=== PATIENT | male | born 1950 | race Caucasian/White ===

== ENCOUNTER → 2018-08-16 10:16 | Outpatient (CLI) | payer MEDICARE, OTHER, SELFPAY ==
[2018-08-16 11:25] LABS: AST(SGOT) 9 U/L (15-37); Alanine Aminotransfer ALT/SGPT 16 U/L (16-61); Albumin, Serum 3.1 g/dL (3.2-5.0); Alkaline Phosphatase 75 U/L (45-117); Bilirubin, Direct 0.15 mg/dL (0.00-0.30); Cholesterol 146 mg/dL (200); Globulin 4.5 g/dL (2.2-4.2); High Density Lipoprotein 51 mg/dL; Protein, Total 7.6 g/dL (6.4-8.2); Triglycerides 142 mg/dL; Very Low Density Lipoprotein 28 mg/dL (5-40)
== END ==
PROVIDERS: Family Provider Family Medicine; PCP Family Medicine; Visit Provider Internal Medicine Cardiovascular Disease
DX: E78.5 Hyperlipidemia, unspecified (principal); I25.5 Ischemic cardiomyopathy
CPT/HCPCS: 36415; 80061; 80076

== ENCOUNTER → 2018-09-05 09:06 | Outpatient (CLI) | payer MEDICARE, OTHER, SELFPAY ==
--- NOTE | 2018-09-05 09:13 | PCM.CR.HP2 ---
CR - History & Physical - General Arrival date:: 09/05/18 Arrival time:: 09:13 Date of Referral:: 08/31/18 Date of CR Evaluation:: 09/05/18 Referring Physician: DR. 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 Called his friend to take him to ER, friend told patient he was pure white and friend called squad. Interventions with present event:: CABG, was done at [facility]- Were there any complications?: after surgery slipped in coma during surgery, spent 6 weeks in coma. - Medications Home Medications: Ambulatory Orders Medication Instructions Recorded atorvastatin 40 mg tablet 40 mg PO QDAY #90 tab 06/07/18 famotidine 20 mg tablet 20 mg PO QDAY #30 tab 06/07/18 lisinopril 20 mg tablet 20 mg PO QDAY #90 tab 06/07/18 sennosides 8.6 mg-docusate sodium 1 tab PO QDAY PRN #60 tab 06/07/18 50 mg tablet sertraline 100 mg tablet 100 mg PO QDAY #90 tab 06/07/18 valproic acid 250 mg capsule 250 mg PO TID #90 cap 06/07/18 celecoxib 200 mg capsule 200 mg PO DAILY #90 cap 08/16/18 nadolol 40 mg tablet 40 mg PO QDAY #90 tab 08/16/18 gabapentin 100 mg capsule 100 mg PO BID #180 cap 08/23/18 diltiazem CD 180 mg 180 mg PO QDAY #30 cap 08/31/18 capsule,extended release 24 hr - Allergies Allergies/Adverse Reactions: Allergies No Known Allergies Allergy (Unverified 08/16/18 08:40) - Sleep Disorder Evaluation Hx of Sleep Apnea: No Do you snore loudly (louder than talking or can be heard through closed doors)?: No Do you often feel tired/ fatigued/ sleepy during daytime?: Yes - sometimes Has anyone observed you stop breathing during sleep?: No History of Hypertension (for STOP score): Yes STOP Results: Positive Advanced Directives - Advanced Directives Power of Fire Regulator: Yes - sister is POA for healthcare Living Will: Yes Advance Directives Information Provided: No Advance Directives on File: No Past Medical History - Past Medical Illness Medical History: Past Medical History (Last Reviewed 08/16/18 @ 09:50 by Dalton Marinelli MD) Acute subdural hematoma (Chronic) Onset Date: 04/22/18 S06.5X9A Anteromedial left frontal lobe Paroxysmal atrial fibrillation (Chronic) I48.0 Postoperative Ischemic cardiomyopathy (Chronic) I25.5 Atherosclerosis of coronary artery of [place] heart without angina pectoris (Chronic) I25.10 CABG x 3- KUMAR-LAD, SVG-RCA and SVG-Distal Cx 02/09/18 Hyperlipemia (Chronic) E78.5 Hypertension (Chronic) I10 COPD (chronic obstructive pulmonary disease) J44.9 Depression F32.9 History of non-ST elevation myocardial infarction (NSTEMI) I25.2 Insomnia G47.00 Metabolic encephalopathy G93.41 Osteoarthritis M19.90 Klebsiella infection A49.8 Nonsustained ventricular tachycardia I47.2 Respiratory failure J96.90 Required tracheostomy 02/22/18 - Past Surgical History Surgical History: Past Surgical History (Last Reviewed 08/16/18 @ 09:50 by Dalton Marinelli MD) History of coronary artery bypass graft (Resolved) Onset Date: 02/09/18 Z95.1 CABG x 3- KUMAR-LAD, SVG-RCA and SVG-Distal Cx 02/09/18 @ [facility] Dr Cortes Gastrojejunostomy tube status Onset Date: 02/22/18 Z93.4 History of herniorrhaphy Z98.890, Z87.19 History of right knee joint replacement Z96.651 History of tracheostomy Onset Date: 02/22/18 Z98.890 - Family History Summary Family History: Family History (Last Reviewed 08/16/18 @ 09:50 by Dalton Marinelli MD) Mother Hypertension Colon cancer Father Hypertension Social History - Smoking History Smoking Status: Former smoker Years Smokin Packs Smoked per Day: 3 - using [place] chew now Hx Smoking Cessation Date: 02/08/2018 Hx Tobacco Use: Yes Hx Smoking Exposure: Yes - Alcohol Use Alcohol Usage: No - Substance Abuse Hx Substance Use: No - Occupation 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 Social Environment - Status Marital Status: Single - Current Living Arrangements Living Environment:: Alone - Children Do any of your children live nearby?: No - Safety Do you feel safe in your surroundings?: Yes - Assistance Do you need any assistance at home?: none Review of Systems - Review of Systems Hints: Right click = Denies ([place]). 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 Denies: Shortness of Breath at Rest, Appetite - Special Diet - Pain Is Patient Pain Free?: No Pain Location: none - patient has poor shoulders but is high risk for surgery to repair. Limited range of motion shoulders. Risk Factor Assessment - Chief Complaint Chief Complaint: Patient 68 yr old male patient who presents to CR today following long recovery fololowing CABG in January. Patient was in a coma, spent a long period in hospital recovering, and subsequently to Rehab and then transfered to [facility] for recovery and physical therapy. 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 Smoking Moderate Risk: Smoker or quit 6 months or less ago. Smoking High Risk: Smoker - For Dyslipidemia Dyslipidemia Risk Guidelines: Low Risk: Moderate Risk: High Risk: 15-25% fat 25.1-29% fat >/= 30% fat. <7% sat fat 7-9% sat fat >9% sat fat. <150 mg chol 150-299 mg chol >/= 300 mg chol. LDL <100 LDL 100-129 LDL >/= 130. Chol/HDL ratio <5.0 Chol/HDL ratio 5.0-6.0 Chol/HDL ratio >6.0. Triglycerides <100 Triglycerides 100-149 Triglycerides >/= 150 - For Diabetes Mellitus Diabetes Risk Guidelines: Diabetes Low Risk: HgA1c <6.5% and/or FBG <120. Diabetes Moderate Risk: HgA1c 6.6-7.9% and/or FBG 120-180. Diabetes High Risk: HgA1c >/= 8% and/or FBG >180 - For Obesity/Overweight Obesity/Overweight Risk Guidelines: Obesity Low Risk: BMI <25.0. Obesity Moderate Risk: BMI 25-29.9. Obesity High Risk: BMI >/= 30.0 - For Hypertension Hypertension Risk Guidelines: Hypertension Low Risk: Systolic <120 and Diastolic <80. Hypertension Moderate Risk: Systolic 120-139 and Diastolic 80-89. Hypertension High Risk: Systolic >/= 140 and Diastolic >/= 90 - For Sedentary Lifestyle Sedentary Lifestyle Risk Guidelines: Sedentary Lifestyle Low Risk: >/= 1,500 kcal/week. Sedentary Lifestyle Moderate Risk: 700-1,499 kcal/week. Sedentary Lifestyle High Risk: < 700 kcal/week - For Depression Depression Risk Guidelines: Depression Low Risk: Not clinically depressed. Depression Moderate Risk: Mildly depressed. 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 What do you see as the benefits of succesfully completing the program? In other words, what do you hope to get out of participating in the program?: get stronger, legs and arms back to normal Do you have a spouse or signficant other, family or friends who will help support you to complete the program?: sister is great support
--- NOTE | 2018-09-05 09:19 | CR.HP_ITS ---
CR - History & Physical - General Arrival date:: 09/05/18 Arrival time:: 09:13 Date of Referral:: 08/31/18 Date of CR Evaluation:: 09/05/18 Referring Physician: DR. 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 Called his friend to take him to ER, friend told patient he was pure white and friend called squad. Interventions with present event:: CABG, was done at [facility]- Were there any complications?: after surgery slipped in coma during surgery, spent 6 weeks in coma. - Medications Home Medications: Ambulatory Orders Medication Instructions Recorded atorvastatin 40 mg tablet 40 mg PO QDAY #90 tab 06/07/18 famotidine 20 mg tablet 20 mg PO QDAY #30 tab 06/07/18 lisinopril 20 mg tablet 20 mg PO QDAY #90 tab 06/07/18 sennosides 8.6 mg-docusate sodium 1 tab PO QDAY PRN #60 tab 06/07/18 50 mg tablet sertraline 100 mg tablet 100 mg PO QDAY #90 tab 06/07/18 valproic acid 250 mg capsule 250 mg PO TID #90 cap 06/07/18 celecoxib 200 mg capsule 200 mg PO DAILY #90 cap 08/16/18 nadolol 40 mg tablet 40 mg PO QDAY #90 tab 08/16/18 gabapentin 100 mg capsule 100 mg PO BID #180 cap 08/23/18 diltiazem CD 180 mg 180 mg PO QDAY #30 cap 08/31/18 capsule,extended release 24 hr - Allergies Allergies/Adverse Reactions: Allergies No Known Allergies Allergy (Unverified 08/16/18 08:40) - Sleep Disorder Evaluation Hx of Sleep Apnea: No Do you snore loudly (louder than talking or can be heard through closed doors)?: No Do you often feel tired/ fatigued/ sleepy during daytime?: Yes - sometimes Has anyone observed you stop breathing during sleep?: No History of Hypertension (for STOP score): Yes STOP Results: Positive Advanced Directives - Advanced Directives Power of Shipping And Receiving Weigher: Yes - sister is POA for healthcare Living Will: Yes Advance Directives Information Provided: No Advance Directives on File: No Past Medical History - Past Medical Illness Medical History: Past Medical History (Last Reviewed 08/16/18 @ 09:50 by Dalton Marinelli MD) Acute subdural hematoma (Chronic) Onset Date: 04/22/18 S06.5X9A Anteromedial left frontal lobe Paroxysmal atrial fibrillation (Chronic) I48.0 Postoperative Ischemic cardiomyopathy (Chronic) I25.5 Atherosclerosis of coronary artery of [place] heart without angina pectoris (Chronic) I25.10 CABG x 3- KUMAR-LAD, SVG-RCA and SVG-Distal Cx 02/09/18 Hyperlipemia (Chronic) E78.5 Hypertension (Chronic) I10 COPD (chronic obstructive pulmonary disease) J44.9 Depression F32.9 History of non-ST elevation myocardial infarction (NSTEMI) I25.2 Insomnia G47.00 Metabolic encephalopathy G93.41 Osteoarthritis M19.90 Klebsiella infection A49.8 Nonsustained ventricular tachycardia I47.2 Respiratory failure J96.90 Required tracheostomy 02/22/18 - Past Surgical History Surgical History: Past Surgical History (Last Reviewed 08/16/18 @ 09:50 by Dalton Marinelli MD) History of coronary artery bypass graft (Resolved) Onset Date: 02/09/18 Z95.1 CABG x 3- KUMAR-LAD, SVG-RCA and SVG-Distal Cx 02/09/18 @ [facility] Dr Cortes Gastrojejunostomy tube status Onset Date: 02/22/18 Z93.4 History of herniorrhaphy Z98.890, Z87.19 History of right knee joint replacement Z96.651 History of tracheostomy Onset Date: 02/22/18 Z98.890 - Family History Summary Family History: Family History (Last Reviewed 08/16/18 @ 09:50 by Dalton Marinelli MD) Mother Hypertension Colon cancer Father Hypertension Social History - Smoking History Smoking Status: Former smoker Years Smokin Packs Smoked per Day: 3 - using [place] chew now Hx Smoking Cessation Date: 02/08/2018 Hx Tobacco Use: Yes Hx Smoking Exposure: Yes - Alcohol Use Alcohol Usage: No - Substance Abuse Hx Substance Use: No - Occupation 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 Social Environment - Status Marital Status: Single - Current Living Arrangements Living Environment:: Alone - Children Do any of your children live nearby?: No - Safety Do you feel safe in your surroundings?: Yes - Assistance Do you need any assistance at home?: none Review of Systems - Review of Systems Hints: Right click = Denies ([place]ash). 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 Denies: Shortness of Breath at Rest, Appetite - Special Diet - Pain Is Patient Pain Free?: No Pain Location: none - patient has poor shoulders but is high risk for surgery to repair. Limited range of motion shoulders. Risk Factor Assessment - Chief Complaint Chief Complaint: Patient 68 yr old male patient who presents to CR today following long recovery fololowing CABG in January. Patient was in a coma, spent a long period in hospital recovering, and subsequently to Rehab and then transfered to [facility] for recovery and physical therapy. 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 Smoking Moderate Risk: Smoker or quit 6 months or less ago. Smoking High Risk: Smoker - For Dyslipidemia Dyslipidemia Risk Guidelines: Low Risk: Moderate Risk: High Risk: 15-25% fat 25.1-29% fat >/= 30% fat. <7% sat fat 7-9% sat fat >9% sat fat. <150 mg chol 150-299 mg chol >/= 300 mg chol. LDL <100 LDL 100-129 LDL >/= 130. Chol/HDL ratio <5.0 Chol/HDL ratio 5.0-6.0 Chol/HDL ratio >6.0. Triglycerides <100 Triglycerides 100-149 Triglycerides >/= 150 - For Diabetes Mellitus Diabetes Risk Guidelines: Diabetes Low Risk: HgA1c <6.5% and/or FBG <120. Diabetes Moderate Risk: HgA1c 6.6-7.9% and/or FBG 120-180. Diabetes High Risk: HgA1c >/= 8% and/or FBG >180 - For Obesity/Overweight Obesity/Overweight Risk Guidelines: Obesity Low Risk: BMI <25.0. Obesity Moderate Risk: BMI 25-29.9. Obesity High Risk: BMI >/= 30.0 - For Hypertension Hypertension Risk Guidelines: Hypertension Low Risk: Systolic <120 and Diastolic <80. Hypertension Moderate Risk: Systolic 120-139 and Diastolic 80-89. Hypertension High Risk: Systolic >/= 140 and Diastolic >/= 90 - For Sedentary Lifestyle Sedentary Lifestyle Risk Guidelines: Sedentary Lifestyle Low Risk: >/= 1,500 kcal/week. Sedentary Lifestyle Moderate Risk: 700-1,499 kcal/week. Sedentary Lifestyle High Risk: < 700 kcal/week - For Depression Depression Risk Guidelines: Depression Low Risk: Not clinically depressed. Depression Moderate Risk: Mildly depressed. 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 What do you see as the benefits of succesfully completing the program? In other words, what do you hope to get out of participating in the program?: get stronger, legs and arms back to normal Do you have a spouse or signficant other, family or friends who will help support you to complete the program?: sister is great support
--- NOTE | 2018-09-05 09:32 | CR.ITP_ITS ---
General Information - Education/Goals Individual Counseling: Initial Assessment: Nicotine/Smoking - recently quit 02/08/18; still using chew., High Blood Pressure - recent onset 02/08/18, Overweight/Obesity - BMI 29.9% Cardiac Rehabilitation Goals: 1. Maintain the individual as the primary focus of care. 2. To improve the patient's quality of life. 3. Identification of cardiac risk factors and provide cardiac risk factor management. 4. Enhance the psychosocial status of the patient. 5. Reconditioning enough to allow the patient to resume customary activities. 6. Control symptoms of cardiac disease Scale for measuring improvement of personal goals: Enter appropriate number in Comments. 2 = Unchanged. 3 = Slightly Better. 4 = Moderate Improvement. 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 Exercise - Initial Assessment - Visit Date of Eval: 09/05/18 Session #:: 0 - Stages of Change Stages of Change:: Action - Exercise Prescription Mode:: Treadmill, Airdyne, NuStep, Arm Ergometer Angina with exercise?: No Target Heart Rate:: 113-120 - Hypertension Do any of the following apply?: Yes, Medication Resting Blood Pressure:: 150/70 - Intervention Home Exercise/Activity Goal:: Sitting Time <3 hrs/day - Education Goals:: Warm-up, RPE MIKAEL Scale, S/S, Safe Exercise, Self-Monitoring - Exercise Program Goals Exercise Program Goals: Aerobic Activity >30 min Nutrition - Initial Assessment - Program Goals Nutrition Program Goals: LDL <70. Total Cholesterol <200. HDL >45. Triglycerides <150. HgbA1C <7%. BMI <25 - Visit Date of Assessment:: 09/05/18 - Stages of Change Stages of Change:: Action - Diabetes Diabetes:: No Do you monitor your blood sugar at home?: No - Weight Management Height: 5 ft 10 in Weight:: 209 lb Body Fat %:: 29.9 - Intervention Referral to dietitian:: Yes - poor knowledge of cardiac diet Referral to Diabetic Clinic:: No Will attend diet classes:: Yes - Education Gave educational materials for:: Healthy eating Tobacco - Initial Assessment - Program Goals Tobacco Program Goals: Complete smoking cessation. Attend education classes. Improve Knowledge Test score - Stage of Change Stages of Change:: Contemplate - Learning Barriers Learning Barriers: Hearing, Vision, Ready to Learn - Family Support Do you have family support?: Yes - sister is very helpful/also a nurse - Tobacco Use Tobacco Use: Chew How long ago did you quit using tobacco products?: Less than 6 months ago - quit smoking 02/08/2018, still uses [place] chew/snuff daily. How many cigarettes do you smoke per day?: 60 - Heavy smoker 3 PPD Years Smokin Do you use smokeless tobacco?: Yes - Intervention Smoking Cessation Referral:: Yes Individual Education/Counseling:: No Education Schedule Given:: Yes - Education Gave educational material for:: Tobacco triggers, Coronary artery disease, Risk factors, Sexuality, Medical compliance, Cardiac A&P, Angina signs & symptoms Psychosocial - Initial Assess - Target Goals Target Goals: Assess presence or absence of depression. Using a valid screening tool, maximizes coping skills. Positive support system - Stages of Change Stages of Change:: Action - Psychosocial Test Tool Used:: HANDS Depression Questionnaire - Intervention PS - Interventions: Yes Referral to Physician - patient treated by PCP for depression, Yes Attend Stress Management Classes, No Referral to Mental Health, No Referral to [facility] Case Management, No Uses Stress Management Skills - Education Gave educational materials for:: Coping techniques, Signs & symptoms of depression, Stress management, Relaxation techniques - Patient/Program Goal Preventative Medication(s):: Aspirin, Clopidogrel, Beta krystle, Statin/lipid - Assistive Devices Assistive Devices:: None Fall Risk Assessed:: Yes Patient Health Questionnaire Initial Assessment 1. Little interest or pleasure in doing things: Not at all 2. Feeling down, depressed, or hopeless: More than half the days 3. Trouble falling or staying asleep, or sleeping too much: More than half the days 4. Feeling tired or having little energy: More than half the days 5. Poor appetite or overeating: More than half the days 6. Feeling bad about yourself -- or that you are a failure or have let yourself or your family down: More than half the days 7. Trouble concentrating on things, such as reading the newspaper or watching television: Not at all 8. Moving or speaking so slowly that other people could have noticed. Or the opposite - being so fidgety or restless that you have been moving around a lot more than usual: Not at all 9. Thoughts that you would be better off , or of hurting yourself in some way: Not at all Total Score: 10 TU-Q SV Test - Statements CAD is a disease of the arteries in the heart: True Examples of risk factors for heart disease: True Angina is chest pain or discomfort: True The benefits of resistance training include: True Eating more meat and dairy products: False Anti-platelet medications such as aspirin are important: True The only effective way to manage stress: True An exercise warm-up slowly increases heart rate: I Don't Know Prepared, processed foods usually have high sodium: I Don't Know Depression is common after a heart attack: True The statin medications lower cholesterol: I Don't Know To control blood pressure, lower the amount of sodium: True If someone gets chest discomfort during walking: False Transfats are partially hydrogenated vegetable oils: I Don't Know Sleep apnea that is not treated increases the risk: I Don't Know To control cholesterol, one should become a vegetarian: False Someone knows if he/she is exercising at the right level: I Don't Know Diabetes cannot be prevented with exercise & health eating: I Don't Know Stress is a large risk for heart attack: True A diet that can help lower blood pressure is rich in: True - Total Score Total Correct Responses: 11 Self-Efficacy Initial Assessment We would like to know how confident you are in doing certain activities. Please select your confidence level for:: Select your confidence level for the following using the scale 1-10 where 1 is not at all confident and 10 is totally confident. Your score is the average of all 6 responses. Fatigue: How confident are you that you can keep the fatigue caused by your disease from interfering with the things you want to do? Select Number: 8 Physical Discomfort or Pain: How confident are you that you can keep the p hysical discomfort or pain of your disease from interfering with the things you want to do? Select Number: 6 Emotional Distress: How confident are you that you can keep the emotional distress caused by your disease from interfering with the things you want to do? Select Number: 6 Other Symptoms or Health Problems: How confident are you that you can keep other symptoms or health problems from interfering with the things you want to do? Select Number: 9 Different Tasks and Activities: How confident are you that you can do the different tasks and activities needed to manage your health condition so as to reduce your need to see a doctor? Select Number: 9 Medication: How confident are you that you can do things other than just taking medication to reduce how much your illness affects your everyday life? Select Number: 8 Total Score:: 7 Nutrition Survey - Nutrition Survey Instructions Scoring Instructions: Scoring is as follows: Yes = 1 points. No = 0 point. Patient score that is >/=12 is considered to be at potential nutritional risk and could benefit from a referral to a registered dietitian. - Nutrition Survey Initial Have you lost >10 lbs over the past 2 months without trying?: No Are you following a special diet at home for diabetes, low fat, or low salt?: No Are you interested in meeting with a dietitian for help understanding your diet?: Yes Do you eat less than 3 meals a day?: Yes Do you eat fatty meats (goodson, sausage, ribs, etc), fried foods, desserts, large amounts of salad dressings, margarine, butter, or cheese most days?: Yes Do you have food allergies? [Enter types in comment field]: No Do you eat in restaurants more than 3 times a week?: No Do you season food with salt, seasoning salt, or garlic salt?: No Do you used canned, boxed, frozen meals, or soups, seasoning packets?: Yes Total Score:: 4
[2018-09-05 09:36] VITALS: BP 150/70; PULSE 52; RESP 16; TEMP 37.1; O2SAT 96; BMI 29.9
[2018-09-05 10:36] VITALS: BP 150/70
== END ==
PROVIDERS: Family Provider Family Medicine; PCP Family Medicine; Referring Provider Internal Medicine Cardiovascular Disease; Visit Provider Internal Medicine Cardiovascular Disease
DX: I25.10 Atherosclerotic heart disease of native coronary artery without angina pectoris (principal); I10 Essential (primary) hypertension; J44.9 Chronic obstructive pulmonary disease, unspecified; E78.5 Hyperlipidemia, unspecified; I25.2 Old myocardial infarction; I25.5 Ischemic cardiomyopathy; I48.0 Paroxysmal atrial fibrillation; Z95.1 Presence of aortocoronary bypass graft; Z87.891 Personal history of nicotine dependence

== ENCOUNTER 2018-09-27 08:00 | Outpatient (RCR) | payer MEDICARE, OTHER, SELFPAY ==
--- NOTE | 2018-09-22 08:24 | EKG12_ITS ---
Test Reason : CP IN REHAB Blood Pressure : / mmHG Vent. Rate : 055 BPM Atrial Rate : 055 BPM P-R Int : 156 ms QRS Dur : 102 ms QT Int : 448 ms P-R-T Axes : 050 -02 001 degrees QTc Int : 428 ms Sinus bradycardia Otherwise normal ECG Confirmed by RANCHO QUIROZ ([id number]), editor publications WILI BROWN ([id number]) on 09/26/2018 9:21:00 AM Referred By: Dalton Torres Confirmed By:RANCHO QUIROZ
== END 2018-09-27 23:59 ==
LOC: CR 08:00
PROVIDERS: Family Provider Family Medicine; PCP Family Medicine; Referring Provider Internal Medicine Cardiovascular Disease; Visit Provider Internal Medicine Cardiovascular Disease
DX: I48.0 Paroxysmal atrial fibrillation (principal); I25.5 Ischemic cardiomyopathy; I25.10 Atherosclerotic heart disease of native coronary artery without angina pectoris; E78.5 Hyperlipidemia, unspecified; I10 Essential (primary) hypertension; Z95.1 Presence of aortocoronary bypass graft
CPT/HCPCS: 93005; 93798

== ENCOUNTER → 2018-10-03 10:36 | Outpatient (CLI) | payer MEDICARE, OTHER, SELFPAY ==
--- NOTE | 2018-10-03 18:07 | LEAS ---
Arterial Study - Arterial Study Arterial Study: Bilateral lower extremity noninvasive arterial exam at rest Right lower extremity The right PT and DP ankle-brachial indices at rest are 1.151.14 respectively. The Doppler waveforms are triphasic at both the right posterior tibial and dorsalis pedis. Left lower extremity The left PT and DP ankle-brachial indices at rest are 1.23 and 1.2 respectively. The left posterior tibial and dorsalis pedis Doppler waveforms are triphasic Impression Normal bilateral lower extremity resting ankle-brachial indices and waveforms Noah Conteh M.D., F.A.C.S.
== END ==
PROVIDERS: Family Provider Family Medicine; PCP Family Medicine; Referring Provider Family Medicine; Visit Provider Family Medicine
DX: I73.9 Peripheral vascular disease, unspecified (principal); M25.50 Pain in unspecified joint
CPT/HCPCS: 36415; 84550; 93922

== ENCOUNTER 2018-10-27 06:30 | Outpatient (RCR) | payer MEDICARE, OTHER, SELFPAY ==
--- NOTE | 2018-10-06 10:49 | PCM.CR.ITP ---
Exercise - 30-day Assessment - Visit Date of Eval: 10/06/18 Session #:: 14 - Stages of Change Stages of Change:: Action - Exercise Prescription Mode:: Treadmill, Rower, Airdyne, NuStep Frequency (x/week): 3 Duration:: 35 METs - Progression: 0.5-1 MET as tolerated: 4 Target Heart Rate:: 113-120 - Hypertension Resting Blood Pressure:: 122/64 Peak Exercise Blood Pressure:: 160/80 Medication Changes:: No - Intervention Home Exercise/Activity Goal:: Moderate Exercise 30 min/day x 5 days/wk - Education Goals:: Warm-up, RPE MIKAEL Scale, S/S, Safe Exercise, Self-Monitoring - Exercise Program Goals Exercise Program Goals: Aerobic Activity >30 min Nutrition - Initial Assessment - Program Goals Nutrition Program Goals: LDL <70. Total Cholesterol <200. HDL >45. Triglycerides <150. HgbA1C <7%. BMI <25 - Diabetes Do you monitor your blood sugar at home?: No Nutrition - 30-Day Assessment - Program Goals Nutrition Program Goals: LDL <70. Total Cholesterol <200. HDL >45. Triglycerides <150. HgbA1C <7%. BMI <25 - Visit Date of Eval: 10/06/18 - Stages of Change Stages of Change:: Action - Lipids Has the patient seen the dietitian?: No - Diabetes Diabetes:: No - Weight Management Weight:: 212 lb 8 oz - stable - Intervention Referral to dietitian:: No Will attend diet classes:: Yes - Education Attended class for:: Healthy eating Tobacco - Initial Assessment - Program Goals Tobacco Program Goals: Complete smoking cessation. Attend education classes. Improve Knowledge Test score - Learning Barriers Learning Barriers: Hearing, Vision, Ready to Learn Tobacco - 30-Day Assessment - Program Goals Tobacco Program Goals: Complete smoking cessation. Attend education classes. Improve Knowledge Test score - Stage of Change Stages of Change:: Action - Learning Barriers Learning Barriers: Participates in education - Family Support Do you have family support?: Yes - Tobacco Use Tobacco Use: Non-smoker Do you use smokeless tobacco?: No - Intervention Education Schedule Given:: Yes - Education Attended class for:: Coronary artery disease, Risk factors, Sexuality, Medical compliance, Cardiac A&P, Angina signs & symptoms Psychosocial - Initial Assess - Target Goals Target Goals: Assess presence or absence of depression. Using a valid screening tool, maximizes coping skills. Positive support system - Psychosocial Test Tool Used:: HANDS Depression Questionnaire - Assistive Devices Fall Risk Assessed:: Yes Psychosocial - 30-Day Assess - Target Goals Target Goals: Assess presence or absence of depression. Using a valid screening tool, maximizes coping skills. Positive support system - Psychosocial Test Tool Used:: HANDS Depression Questionnaire - Intervention PS - Interventions: Yes Attend Stress Management Classes, Yes Uses Stress Management Skills, No Referral to Mental Health, No Referral to [facility] Case Management, No Referral to Physician - Education Attended classes for:: Coping techniques, Signs & symptoms of depression, Stress management, Relaxation techniques - Patient/Program Goal Preventative Medication(s):: Aspirin, Clopidogrel, Beta krystle, Statin/lipid - Assistive Devices Assistive Devices:: None Fall Risk Assessed:: Yes Patient Health Questionnaire 30-Day Re-eval Assessment 1. Little interest or pleasure in doing things: Not at all 2. Feeling down, depressed, or hopeless: Several days 3. Trouble falling or staying asleep, or sleeping too much: Several days 4. Feeling tired or having little energy: More than half the days 5. Poor appetite or overeating: Several days 6. Feeling bad about yourself -- or that you are a failure or have let yourself or your family down: Several days 7. Trouble concentrating on things, such as reading the newspaper or watching television: Not at all 8. Moving or speaking so slowly that other people could have noticed. Or the opposite - being so fidgety or restless that you have been moving around a lot more than usual: Not at all 9. Thoughts that you would be better off , or of hurting yourself in some way: Not at all Total Score: 6 Self-Efficacy 30-Day Re-eval Assessment We would like to know how confident you are in doing certain activities. Please select your confidence level for:: Select your confidence level for the following using the scale 1-10 where 1 is not at all confident and 10 is totally confident. Your score is the average of all 6 responses. Fatigue: How confident are you that you can keep the fatigue caused by your disease from interfering with the things you want to do? Select Number: 8 Physical Discomfort or Pain: How confident are you that you can keep the physical discomfort or pain of your disease from interfering with the things you want to do? Select Number: 7 Emotional Distress: How confident are you that you can keep the emotional distress caused by your disease from interfering with the things you want to do? Select Number: 7 Other Symptoms or Health Problems: How confident are you that you can keep other symptoms or health problems from interfering with the things you want to do? Select Number: 9 Different Tasks and Activities: How confident are you that you can do the different tasks and activities needed to manage your health condition so as to reduce your need to see a doctor? Select Number: 9 Medication: How confident are you that you can do things other than just taking medication to reduce how much your illness affects your everyday life? Select Number: 10 Total Score:: 8
[2018-10-06 10:52] VITALS: BP 122/64; BP 160/80
== END 2018-10-27 23:59 ==
LOC: CR 06:30
PROVIDERS: Family Provider Family Medicine; PCP Family Medicine; Referring Provider Internal Medicine Cardiovascular Disease; Visit Provider Internal Medicine Cardiovascular Disease
DX: I48.0 Paroxysmal atrial fibrillation (principal); I25.5 Ischemic cardiomyopathy; I25.10 Atherosclerotic heart disease of native coronary artery without angina pectoris; E78.5 Hyperlipidemia, unspecified; I10 Essential (primary) hypertension; Z95.1 Presence of aortocoronary bypass graft
CPT/HCPCS: 93798

== ENCOUNTER 2018-11-01 06:30 | Outpatient (RCR) | payer MEDICARE, OTHER, SELFPAY ==
[2018-10-23 09:33] VITALS: BMI 30.4
[2018-10-28 01:35] VITALS: BP 122/64; BP 160/80
--- NOTE | 2018-11-06 09:43 | PCM.CR.ITP ---
General Information - General Information Admitting Diagnosis: CABG - Education/Goals Cardiac Rehabilitation Goals: 1. Maintain the individual as the primary focus of care. 2. To improve the patient's quality of life. 3. Identification of cardiac risk factors and provide cardiac risk factor management. 4. Enhance the psychosocial status of the patient. 5. Reconditioning enough to allow the patient to resume customary activities. 6. Control symptoms of cardiac disease Scale for measuring improvement of personal goals: Enter appropriate number in Comments. 2 = Unchanged. 3 = Slightly Better. 4 = Moderate Improvement. 5 = Met my Goal Exercise - 60-Day Assessment - Visit Date of Eval: 11/06/18 Session #:: 25 - Stages of Change Stages of Change:: Action - Exercise Prescription Mode:: Treadmill, Airdyne, NuStep Frequency (x/week): 3 Duration:: 35 METs: 4.2 Target Heart Rate:: 113-120 Max HR 86 - Hypertension Resting Blood Pressure:: 110/62 Peak Exercise Blood Pressure:: 140/70 - Intervention Home Exercise/Activity Goal:: Sitting Time <3 hrs/day - Education Goals:: Warm-up, RPE MIKAEL Scale, S/S, Safe Exercise, Self-Monitoring - Exercise Program Goals Exercise Program Goals: Aerobic Activity >30 min, B/P <130/80 Nutrition - Initial Assessment - Program Goals Nutrition Program Goals: LDL <70. Total Cholesterol <200. HDL >45. Triglycerides <150. HgbA1C <7%. BMI <25 - Diabetes Do you monitor your blood sugar at home?: No Nutrition - 60-Day Assessment - Program Goals Nutrition Program Goals: LDL <70. Total Cholesterol <200. HDL >45. Triglycerides <150. HgbA1C <7%. BMI <25 - Visit Date of Eval: 11/06/18 - Stages of Change Stages of Change:: Action - Weight Management Weight:: 98.43 kg - Intervention Referral to dietitian:: No Referral to Diabetic Clinic:: No Will attend diet classes:: Yes - Education Attended class for:: Signs & symptoms of hypoglycemia, Signs & symptoms of hyperglycemia, Relate diabetes to coronary artery disease, Healthy eating Tobacco - Initial Assessment - Program Goals Tobacco Program Goals: Complete smoking cessation. Attend education classes. Improve Knowledge Test score - Learning Barriers Learning Barriers: Hearing, Vision, Ready to Learn Tobacco - 60-Day Assessment - Program Goals Tobacco Program Goals: Complete smoking cessation. Attend education classes. Improve Knowledge Test score - Stage of Change Stages of Change:: Action - Learning Barriers Learning Barriers: Participates in education - Family Support Do you have family support?: Yes - Tobacco Use Tobacco Use: Non-smoker - Intervention Smoking Cessation Referral:: No Individual Education/Counseling:: No Education Schedule Given:: Yes - Education Attended class for:: Tobacco triggers, Coronary artery disease, Risk factors, Sexuality, Medical compliance, Cardiac A&P, Angina signs & symptoms Psychosocial - 60-Day Assess - Target Goals Target Goals: Assess presence or absence of depression. Using a valid screening tool, maximizes coping skills. Positive support system - Stages of Change Stages of Change:: Action - Psychosocial Test Tool Used:: HANDS Depression Questionnaire - Intervention PS - Interventions: Yes Attend Stress Management Classes, Yes Uses Stress Management Skills, No Referral to Mental Health, No Referral to [facility] Case Management, No Referral to Physician - Education Attended classes for:: Coping techniques, Signs & symptoms of depression, Stress management, Relaxation techniques - Assistive Devices Assistive Devices:: None Fall Risk Assessed:: Yes Patient Health Questionnaire 60-Day Re-eval Assessment 1. Little interest or pleasure in doing things: Not at all 2. Feeling down, depressed, or hopeless: More than half the days 3. Trouble falling or staying asleep, or sleeping too much: More than half the days 4. Feeling tired or having little energy: More than half the days 5. Poor appetite or overeating: More than half the days 6. Feeling bad about yourself -- or that you are a failure or have let yourself or your family down: More than half the days 7. Trouble concentrating on things, such as reading the newspaper or watching television: Not at all 8. Moving or speaking so slowly that other people could have noticed. Or the opposite - being so fidgety or restless that you have been moving around a lot more than usual: Not at all 9. Thoughts that you would be better off , or of hurting yourself in some way: Not at all Total Score: 10 Self-Efficacy 60-Day Re-eval Assessment We would like to know how confident you are in doing certain activities. Please select your confidence level for:: Select your confidence level for the following using the scale 1-10 where 1 is not at all confident and 10 is totally confident. Your score is the average of all 6 responses. Fatigue: How confident are you that you can keep the fatigue caused by your disease from interfering with the things you want to do? Select Number: 8 Physical Discomfort or Pain: How confident are you that you can keep the physical discomfort or pain of your disease from interfering with the things you want to do? Select Number: 6 Emotional Distress: How confident are you that you can keep the emotional distress caused by your disease from interfering with the things you want to do? Select Number: 6 Other Symptoms or Health Problems: How confident are you that you can keep other symptoms or health problems from interfering with the things you want to do? Select Number: 9 Different Tasks and Activities: How confident are you that you can do the different tasks and activities needed to manage your health condition so as to reduce your need to see a doctor? Select Number: 9 Medication: How confident are you that you can do things other than just taking medication to reduce how much your illness affects your everyday life? Select Number: 8 Total Score:: 7
[2018-11-06 09:50] VITALS: BP 110/62; BP 140/70
--- OUTSIDE RECORDS SUMMARY | 2018-12-23 13:43 | XMS RPT_ITS ---
:1950 Author Organization OHIP Support Name Relationship Address Phone TREV CARMEN Unavailable Unavailable + R Unavailable Unavailable Unavailable LAURITA CARMENCY Unavailable . + ., [place] . R Unavailable Unavailable Unavailable LAURITA CARMENCY Unavailable . + ., [place] . R Unavailable Unavailable Unavailable LAURITA CARMENCY Unavailable Unavailable + R Unavailable Unavailable Unavailable LAURITA CARMENCY Unavailable Unavailable + R Unavailable Unavailable Unavailable ANKURLAURITACY Unavailable . + ., [place] . R Unavailable Unavailable Unavailable LAURITA CARMENCY Unavailable . + ., [place] . R Unavailable Unavailable Unavailable LAURITA CARMENCY Unavailable Unavailable + R Unavailable Unavailable Unavailable LAURITA CARMENCY Unavailable . + ., [place] . R Unavailable Unavailable Unavailable LAURITA CARMENCY Unavailable Unavailable + R Unavailable Unavailable Unavailable LAURITA CARMENCY Unavailable Unavailable + UE Unavailable Unavailable Unavailable UE Unavailable Unavailable Unavailable UE Unavailable Unavailable Unavailable UE Unavailable Unavailable Unavailable UE Unavailable Unavailable Unavailable UE Unavailable Unavailable Unavailable UE Unavailable Unavailable Unavailable Care Team Providers Name Role Phone Juan De La Torrelas Attending Unavailable Brown, Richie Primary Care Unavailable Tonia Pickard PUBLIC ADDRESS SERVICER-C Attending Unavailable Brown, Richie Referring Unavailable Brown, Richie Primary Care Unavailable Brown, Richie Attending Unavailable Brown, Richie Referring Unavailable Brown, Richie Primary Care Unavailable Brown, Richie Attending Unavailable Brown, Richie Referring Unavailable Brown, Richie Primary Care Unavailable Marissa Coy Attending Unavailable Melissa, Rockton Attending Unavailable Brown, Richie Referring Unavailable Brown, Richie Primary Care Unavailable Melissa, [place] Attending Unavailable Melissa, [place] Referring Unavailable Brown, Richie Primary Care Unavailable Melissa, [place] Attending Unavailable Melissa, Dalton Referring Unavailable Brown, Richie Primary Care Unavailable Melissa, Dalton Attending Unavailable Melissa, Dalton Referring Unavailable Brown, Richie Primary Care Unavailable Brown, Richie Attending Unavailable Brown, Richie Referring Unavailable Melissa, Rockton Attending Unavailable Melissa, Dalton Referring Unavailable Brown, Richie Primary Care Unavailable Faith Bagley Attending Unavailable Brown, Richie Attending Unavailable Brown, Richie Primary Care Unavailable Brown, Richie Referring Unavailable [place] Attending Unavailable Melissa, Rockton Referring Unavailable Kiersten Chun Attending Unavailable Brown, Richie Referring Unavailable Melissa, Dalton Attending Unavailable Melissa, Dalton Referring Unavailable Brown, Richie Primary Care Unavailable Jeffrey Conteh Attending Unavailable Brown, Richie Referring Unavailable ABVINCENZOS, SAUD Admitting Unavailable BEATA MARIN Attending Unavailable JOANNA CARRERA Consulting Unavailable ELAINE SWEENEY Admitting Unavailable ELAINE SWEENEY Attending Unavailable GRACE PAEZ Attending Unavailable MUAKKASSA, FARID CARLOTA Admitting Unavailable MUAKKASSA, FARID CARLOTA Attending Unavailable LYNNE CHRISTY Consulting Unavailable LURDES SANTILLAN (PA) Referring Unavailable MORETTSophie, LURDES Nick (PA) Referring Unavailable ASHLEE PALACIOS Attending Unavailable GIO JACOBSEN Admitting Unavailable GIO JACOBSEN Attending Unavailable MIGUEL ANGEL JIMENEZ Consulting Unavailable Casandra MARIN Attending Unavailable Casandra MARIO Admitting Unavailable BROWN, RICHIE Primary Care Unavailable JUAN CABRAL Consulting Unavailable OMER WATTS Consulting Unavailable Casandra MARIN Consulting Unavailable MD ELKIN ZULETA Consulting Unavailable JAY BRICE Consulting Unavailable BHARAT OJEDA Consulting Unavailable Casandra BARAJAS Consulting Unavailable ELAINE SWEENEY Consulting Unavailable MELISSA CAMACHO Consulting Unavailable JOANNA CARRERA Consulting Unavailable ELAINE SWEENEY Admitting Unavailable ELAINE SWEENEY Attending Unavailable BROWN, RICHIE Primary Care Unavailable IMCA Primary Care Unavailable MUAKKASSA, FARID F Admitting Unavailable MUAKKASSA, FARID F Attending Unavailable Bert Bain Consulting Unavailable LYNNE CHRISTY Consulting Unavailable MARIBELL LURDES Referring Unavailable IMCA Primary Care Unavailable LURDES REYNA Referring Unavailable IMCA Primary Care Unavailable PROBLEMS PROBLEMS DATE TYPE CONDITION / CODE ATTENDING STATUS SOURCE 11/06/2018 Unknown I48.0 - Paroxysmal MelissaDalton santacruz Active [facility] atrial fibrillation Community / I48.0(ICD-10) Hospital Repository 10/20/2018 Active Shortness of breath ASHLEE PALACIOS Active [facility] / R06.02(ICD-10) [facility] Other [place] Repository 10/03/2018 Unknown M25.50 - Pain in Richie De La Torre Active [facility] unspecified joint / Community M25.50(ICD-10) Hospital Repository 11/02/2018 Unknown I73.9 - Peripheral Jeffrey Conteh Active [facility] vascular disease, Community unspecified / Hospital I73.9(ICD-10) Repository 10/13/2018 Unknown R00.1 - Bradycardia, [place] Active [facility] unspecified / Community R00.1(ICD-10) Hospital Repository 09/28/2018 Unknown I25.5 - Ischemic Richie De La Torre Active [facility] cardiomyopathy / Community I25.5(ICD-10) Hospital Repository 09/28/2018 Unknown Z95.1 - Presence of Richie De La Torre Active [facility] aortocoronary bypass Community graft / Hospital Z95.1(ICD-10) Repository 09/28/2018 Unknown E78.5 - Richie De La Torre Active [facility] Hyperlipidemia, Community unspecified / Hospital E78.5(ICD-10) Repository 09/28/2018 Unknown I10 - Essential BrownRichie Active [facility] (primary) Community hypertension / Hospital I10(ICD-10) Repository 09/28/2018 Unknown M79.604 - Pain in Richie De La Torre Active [facility] right leg / Community M79.604(ICD-10) Hospital Repository 09/28/2018 Unknown M79.605 - Pain in Juan De La Torrelas Active [facility] left leg / Community M79.605(ICD-10) Hospital Repository 10/10/2018 Unknown I25.10 - Melissa, Rockton Active [facility] Atherosclerotic Community heart disease of Hospital [place] coronary Repository artery without angina pectoris / I25.10(ICD-10) 07/26/2018 Unknown I25.810 - Brown, Richie Active [facility] Atherosclerosis of Community coronary artery Hospital bypass graft(s) Repository without angina pectoris / I25.810(ICD-10) 07/26/2018 Unknown M19.90 - Unspecified Richie De La Torre Active [facility] osteoarthritis, Community unspecified site / Hospital M19.90(ICD-10) Repository 04/27/2018 Active Unknown / ANN-MARIEGIO Active [facility] UNK(Unknown) [facility] Main [place] Repository 04/27/2018 Active Atherosclerosis of MUAKKASSA, Active [place] coronary artery [facility] CARLOTA Clinic Other bypass graft(s) [place] without angina Repository pectoris / I25.810(ICD-10) 04/27/2018 Active Weakness / MUAKKASSA, Active [facility] R53.1(ICD-10) [facility] Other [place] Repository 04/27/2018 Active Chronic respiratory MUAKKASSA, Active [place] failure, unspecified [facility] Other whether with hypoxia [place] or hypercapnia / Repository J96.10(ICD-10) 04/27/2018 Active Unspecified severe MUAKKASSA, Active [facility] Other malnutrition / [place] E43(ICD-10) Repository 04/27/2018 Active Encephalopathy, MUAKKASSA, Active [facility] unspecified / [facility] Other G93.40(ICD-10) [place] Repository 04/22/2018 Active Paroxysmal atrial MUAKKASSA, Active [facility] fibrillation / [facility] Other I48.0(ICD-10) [place] Repository 04/22/2018 Active Nontraumatic MUAKKASSA, Active [facility] subdural hemorrhage, [facility] Other unspecified / [place] I62.00(ICD-10) Repository 04/22/2018 Active Fall from non-moving MUAKKASSA, Active [place] wheelchair, initial [facility] Other encounter / [place] W05.0XXA(ICD-10) Repository 04/27/2018 Admitting Unknown / MUAKKASSA, Active [facility] diagnosis UNK(Unknown) [facility] Repository 04/22/2018 Active Unspecified fall, DULLE, GRACE Active [facility] initial encounter / [facility] Other W19.XXXA(ICD-10) [place] Repository 04/22/2018 Active Laceration without DULLE, GRACE Active [facility] foreign body of [facility] Other other part of head, [place] initial encounter / Repository S01.81XA(ICD-10) 04/22/2018 Active Other injury of GRACE PAEZ Active [facility] unspecified body [facility] Other region, initial [place] encounter / Repository T14.8XXA(ICD-10) 04/17/2018 Active Dysphagia, GLORIA, Active [facility] unspecified / [facility] Other R13.10(ICD-10) [place] Repository 03/13/2018 Active Acute respiratory SOPHIA, Active [place] failure with hypoxia [facility] Other / J96.01(ICD-10) [place] Repository 03/13/2018 Active Nicotine dependence, SOPHIA, Active [place] unspecified, [facility] Other uncomplicated / [place] F17.200(ICD-10) Repository 03/13/2018 Active Moderate SOPHIA, Active [place] protein-calorie [facility] Other malnutrition / [place] E44.0(ICD-10) Repository 03/13/2018 Active Non-ST elevation SOPHIA, Active [place] (NSTEMI) myocardial [facility] Other infarction / [place] I21.4(ICD-10) Repository 02/08/2018 Active Ventricular SOPHIA, Active [place] tachycardia / [facility] Other I47.2(ICD-10) [place] Repository 02/07/2018 Active Atherosclerotic SOPHIA, Active [place] heart disease of [facility] Other [place] coronary [place] artery without Repository angina pectoris / I25.10(ICD-10) 02/07/2018 Active Acidosis / SOPHIA, Active [facility] E87.2(ICD-10) [facility] Other [place] Repository 02/07/2018 Active Disorientation, SOPHIA, Active [place] unspecified / [facility] Other R41.0(ICD-10) [place] Repository 02/07/2018 Active Chronic obstructive SOPHIA, Active [place] pulmonary disease [facility] Other with (acute) [place] exacerbation / Repository J44.1(ICD-10) 02/07/2018 Active Acute respiratory SOPHIA, Active [place] failure with [facility] Other hypercapnia / [place] J96.02(ICD-10) Repository 02/07/2018 Active Unspecified atrial SOPHIA, Active [place] fibrillation / [facility] Other I48.91(ICD-10) [place] Repository 02/07/2018 Active Pneumonia, SOPHIA, Active [place] unspecified organism [facility] Other / J18.9(ICD-10) [place] Repository 02/07/2018 Active Unspecified atrial SOPHIA, Active [place] flutter / [facility] Other I48.92(ICD-10) [place] Repository 02/07/2018 Active Other postprocedural SOPHIA, Active [place] complications and [facility] Other disorders of [place] respiratory system, Repository not elsewhere classified / J95.89(ICD-10) 02/07/2018 Active Metabolic SOPHIA, Active [place] encephalopathy / [facility] Other G93.41(ICD-10) [place] Repository 02/07/2018 Active Other symptoms and SOPHIA, Active [place] signs involving the [facility] Other musculoskeletal [place] system / Repository R29.898(ICD-10) 02/07/2018 Active Tracheostomy status SOPHIA, Active [place] / Z93.0(ICD-10) [facility] Other [place] Repository 02/07/2018 Active Bacteremia / SOPHIA, Active [place] R78.81(ICD-10) [facility] Other [place] Repository 02/07/2018 Active Other specified SOPHIA, Active [place] bacterial agents as [facility] Other the cause of [place] diseases classified Repository elsewhere / B96.89(ICD-10) 02/07/2018 Active Hypotension, SOPHIA, Active [place] unspecified / [facility] Other I95.9(ICD-10) [place] Repository 12/13/2017 Unknown J44.9 - Chronic Brown, Richie Active [facility] Repository J44.9(ICD-10) PROCEDURES PROCEDURES No Procedure Records FoundRESULTS RESULTS CARDIOLOGY VISIT Observed: 10/30/2018 Status: F Source: [place] REPORT 8:41 AM [facility] REPOSITORY [facility] [address] [place] [address] OFFICE VISIT Date of Service: 10/23/18 MR#: [id number] Acct: [id number] Name: JEFFREY CULLEN Jr. Rep #: [id number] : 1950 Provider: Kiersten Chun Age/Sex: 68/M Location: [facility] Status: Signed HPI HPI Details: JEFFREY CULLEN, is a 68 M who presents to the office today for an urgent appointment. He has a history of coronary artery disease with coronary artery bypass surgery and January 2018. He had an KUMAR to the LAD, SVG to the RCA and SVG to the circumflex. He also has a history of ischemic cardiomyopathy, paroxysmal atrial fibrillation, hypertension and hyperlipidemia. Postoperatively his course was complicated by respiratory failure requiring a tracheostomy and nonsustained ventricular tachyarrhythmia. He did spend time in an extended care facility. While he was there he fell out of a wheelchair and did sustain a subdural hematoma. Patient is currently going to cardiac rehab. Pt was seen over the weekend at [facility] for dizziness and leg weakness. He describes this as a sudden onset of dizziness, and it is worsened with positional changes. He does not notice this moving side to side at night but does notice this when he gets up. He has not had any syncope events. He is having tests done to see what it wrong with his legs. He did have a vascular test done- this was normal. He is working with Dr. Gordillo, they think that this is something with his back. He describes this a burning in his thighs and having difficultly walking after he rides the bike. This is concerning for him. He does not have any chest pain/heaviness/tightness. He does not have any worsening SOB. He sts that he felt SOB on Tuesday. He does not have any palpitations that he is aware of. Although he did states that prior to his emergency room visit over the weekend a neighbor had taken his heart rate and noted it to be irregular. Intake Vital Signs10/23/18 Blood Pressure 148/72 H 10/23/18 Blood Pressure Position Standing Intake Visit Reasons: Syncope Allergies No Known Allergies Allergy (Unverified 08/16/18 08:40) Medications atorvastatin 40 mg tablet 40 mg PO QDAY #90 tab 06/07/18 [Rx Confirmed 10/23/18] lisinopril 20 mg tablet 20 mg PO QDAY #90 tab 06/07/18 [Rx Confirmed 10/23/18] sertraline 100 mg tablet 100 mg PO QDAY #90 tab 06/07/18 [Rx Confirmed 10/23/18] celecoxib 200 mg capsule 200 mg PO DAILY #90 cap 08/16/18 [Rx Confirmed 10/23/18] nadolol 40 mg tablet 40 mg PO QDAY #90 tab 08/16/18 [Rx Confirmed 10/23/18] gabapentin 100 mg capsule 100 mg PO BID #180 cap 08/23/18 [Rx Confirmed 10/23/18] diltiazem CD 180 mg capsule,extended release 24 hr 180 mg PO QDAY #30 cap 08/31/18 [Rx Confirmed 10/23/18] tramadol 50 mg tablet 50 mg PO QHS PRN #30 tab 09/29/18 [Rx Confirmed 10/23/18] famotidine 20 mg tablet 20 mg PO QDAY #30 tab 10/18/18 [Rx Confirmed 10/23/18] [facility] Medical History Acute subdural hematoma (Chronic 04/22/18) Paroxysmal atrial fibrillation (Chronic) Ischemic cardiomyopathy (Chronic) Atherosclerosis of coronary artery of [place] heart without angina pectoris (Chronic) Hyperlipemia (Chronic) Hypertension (Chronic) COPD (chronic obstructive pulmonary disease) (Chronic) Depression (Chronic) History of non-ST elevation myocardial infarction (NSTEMI) (Chronic) Insomnia (Chronic) Metabolic encephalopathy (Chronic) Osteoarthritis (Chronic) Vertigo (Chronic) Klebsiella infection (Resolved) Nonsustained ventricular tachycardia (Resolved) Respiratory failure (Resolved) Surgical History History of coronary artery bypass graft (Resolved 02/09/18) Gastrojejunostomy tube status (Resolved 02/22/18) History of herniorrhaphy (Resolved) History of right knee joint replacement (Resolved) History of tracheostomy (Resolved 02/22/18) Family History Mother Hypertension Colon cancer Father Hypertension Social History Smoking Status: Former smoker how long ago did patient quit smokin alcohol intake: never what type of physical activity do you participate in: none ROS Const Const: Positive for weakness (BLE weakness); negative for fatigue, difficulty sleeping, frequent falls, excessive sweating or headache(s) Eyes Eyes: Negative for loss of peripheral vision, transient loss of vision, blurry vision, tunnel vision or double vision ENT ENT: Positive for dizziness; negative for headache(s), Nosebleed/epistaxis or balance problems Cardio Chest Pain: No Palpitations: No Edema: None Muscle aches with walking: None Resp Respiratory: Negative for SOB with activity, SOB at rest, SOB orthopnea\SOB lying down, paroxysmal nocturnal dyspnea or Cough GI GI: Negative nausea, heartburn, black,tarry stools or vomiting : Negative for hematuria Musc Musc: Negative for balance problems, muscle aches/ myalgia, muscle weakness or joint pain Skin Skin: Negative non-healing lesions, unusual bruising or rash Neuro Neuro: Positive for weakness (BLE weakness), dizziness, lightheadedness and orthostatic symptoms; negative for frequent falls, headache(s), blurry vision, double vision, near syncope, syncope or lack of coordination Lukasz Hematologic/Lymphatic: Negative for easy bruising or easy bleeding Endo Endo: Negative for fatigue, excessive sweating or increased thirst/drinking Psych Psych: Negative for anxiety or depression Allergy Allergy/Immunology: Negative for hives, Negative for rash Cardiology Exam Const Appearance: cooperative, healthy appearing, well developed, well groomed and no acute distress Nutritional Appearance: well nourished and average body habitus Orientation: alert, awake and oriented x3 Head Head: normal to inspection, normocephalic and atraumatic Ears: hearing grossly normal bilaterally and external ears normal Nose: external nose normal, nasal mucous membranes and turbinates normal, nares normal, septum normal, no nasal discharge Face and Sinus: face symmetric Mouth: oral mucosae normal, tongue normal, oropharynx normal and moist mucous membranes Teeth and gingiva: dentition normal Throat: posterior oropharynx normal, tonsils normal and uvula midline Eyes General: appearance normal, both eyes and all related structures Eyelids: eyelids normal Conjunctivae: conjunctivae normal Pupils: PERRL, normal by confrontation and accommodation normal EOM: EOM intact bilaterally Neck Neck: normal visual inspection, trachea midline and no JVD JVD: +5 Carotids: normal carotid upstroke and bounding pulses Chest Chest inspection: normal inspection of the chest, symmetric chest movement and normal respiratory effort Auscultation: Bilateral: Clear to Auscultation Cardio Palpation: normal PMI Rate: regular rate Rhythm: regular rhythm Heart sounds: S1 normal, S2 normal and normal, physiologic split S2; negative rub, gallop or murmur GI GI: normal to inspection, soft, no hepatosplenomegaly and bowel sounds present Neuro General: alert, awake, oriented x3, no focal sensory deficit, gait normal and moves all extremities Skin Skin: no rashes or lesions noted Extremities Pulses: Normal: Right Femoral Pulse, Left Femoral Pulse, Right Dorsalis Pedis Pulse, Left Dorsalis Pedis Pulse, Right Posterior Tibial Pulse, Left Posterior Tibial Pulse, Right Radial Pulse, Left Radial Pulse Lower Extremity Edema: None: Bilateral Musculoskel Musculoskeletal: No joint tenderness Psych Psychological: normal affect Supplemental Info demonstrated reduced ejection fraction of 45% severe triple- vessel disease with a 50% proximal left anterior descending artery stenosis, 70% mid left anterior descending artery stenosis, 70% proximal circumflex artery stenosis, 90% proximal right coronary artery stenosis with thrombus noted therein. There was a 70% mid right coronary artery. Assessment AND Plan 1. Dizziness R42 Plan - EKON Solano Feel the patient's dizziness is likely related to vertigo. He did have significant dizziness going from a laying down to a sitting up position. He was not orthostatic. With his concerns over his neighbor stating that he had an irregular heartbeat did discuss obtaining a 30-day event monitor. However he is being monitored with cardiac rehab. It was decided that if his symptoms continue we will then obtain a 30-day event monitor. 2. Atherosclerosis of [place] coronary artery of [place] heart without angina pectoris I25.10 CABG x 3- KUMAR-LAD, SVG-RCA and SVG-Distal Cx 02/09/18 Plan - KEON Solano Stable, from a cardiac standpoint patient does not have any symptoms of angina. We recommend that they continue with current aggressive medical management and risk factor modification. He will continue with cardiac rehab. 3. Essential hypertension I10 Plan - KEON Solano Blood pressure is well controlled on current medications, we do not recommend any changes at this time. 4. Pure hypercholesterolemia E78.00; E78.0 Plan - KEON Solano Patient will continue with his current moderate intensity statin. Recent lipid profile demonstrates total cholesterol 146, HDL 51, LDL 67. 5. Cardiomyopathy, ischemic I25.5 Plan - KEON Solano Patient does not have any symptoms of congestive heart failure. We will continue to monitor by history, exam and echocardiograms as deemed appropriate. 6. Paroxysmal atrial fibrillation I48.0 Postoperative Plan - KEON Solano Patient has not had any symptomatic recurrence. He is concerned about the cost of nadolol. Will discuss with Dr. Deleon a different beta-krystle that we can start patient on. Plan Detail Additional Comments - KEON Solano The above patient was discussed with Dr. Torres, he agrees with plan of care. Thank you for allowing us to participate in patient's plan of care, if you have any questions please do not hesitate to call. This note was generated using a voice recognition system and there may be incorrect words, spelling or punctuation errors that were not noted when reviewing the office note prior to saving. Follow Up 10/23/18 (Keep as is) Coding Level of Care Code Off vis,est,level 4 Diagnoses Dizziness R42 Atherosclerosis of [place] coronary artery of [place] heart without angina pectoris I25.10 Coronary Disease-Associated Artery/Lesion type: [place] artery Essential hypertension I10 Hypertension type: essential hypertension Pure hypercholesterolemia E78.00; E78.0 Hyperlipidemia type: pure hypercholesterolemia Cardiomyopathy, ischemic I25.5 Paroxysmal atrial fibrillation I48.0 Coding Level of Care Code Off vis,est,level 4 Diagnoses Dizziness R42 Atherosclerosis of [place] coronary artery of [place] heart without angina pectoris I25.10 Coronary Disease-Associated Artery/Lesion type: [place] artery Essential hypertension I10 Hypertension type: essential hypertension Pure hypercholesterolemia E78.00; E78.0 Hyperlipidemia type: pure hypercholesterolemia Cardiomyopathy, ischemic I25.5 Paroxysmal atrial fibrillation I48.0 10/26/18 1454 <Electronically signed by Kiersten HERBERT> Date Kiersten HERBERT 10/30/18 0841<Electronically signed by Dalton Torres MD> Cosigner Signature: Date (if applicable) Dalton Torres MD CC: Richie De La Torre DO ED NOTE Observed: 10/20/2018 Status: COMPLETED Source: [place] 12:02 PM [facility] REPOSITORY HNO ID: [id number] Author: Marcia Johnson) RAINA Smith Service: Emergency Medicine Author Type: Registered Nurse Type: ED Notes Filed: 11/07/2018 6:12 PM Note Text: 11/07/18 1805 Chart accessed for audit ED PROV NOTE Observed: 10/20/2018 Status: COMPLETED Source: [place] 11:44 AM [facility] [place] REPOSITORY O ID: [id number] Author: Ashlee Palacios Service: Emergency Medicine Author Type: Physician Type: ED Provider Notes Filed: 10/20/2018 1:53 PM Note Text: ED Provider Note Patient Name: Jeffrey Cullen Jr. SERVICE DATE: 10/20/18 History Patient presents with: Shortness of Breath Jeffrey Cullen Jr. is a 68 year old male with history of multiple chronic medical problems who presents with shortness of breath. Patient has had similar episodes of CAD in the past. - Patient is not . - Patient does not require increased oxygen. - Symptoms began 30 minutes prior to arrival. Onset was sudden. - Severity: moderate - Timing: constant - Symptoms are exacerbated by exertion. - Symptoms are not exacerbated by rest. - Symptoms are associated with dizziness and nausea. - Symptoms are not associated with chest pain. - Improved by rest. - Not improved by inhaler. PAST MEDICAL HISTORY Diagnosis Date - Afib (HCC) - Aneurysm of aorta (HCC) - CAD (coronary artery disease) - Cerebrovascular hemorrhage (HCC) - Chronic respiratory failure (HCC) - Heart attack (HCC) PAST SURGICAL HISTORY Procedure Laterality Date - CABG (3) VEIN GRAFTS AND ARTERIAL GRAFT(S) 01/2018 - ORTHOPEDICS SURGERY HX - PEG INSERTION_*FL - REPAIR ING HERNIA,5+Y/O,REDUCIBL 1990 Hernia repair, inguinal,left - TRACHEOSTOMY, <2 Y/O FAMILY HISTORY Problem Relation Age of Onset - Alcohol/Drug Father - Colon Cancer Mother - Diabetes Mother Social History Social History Main Topics - Smoking status: Former Smoker Packs/day: 2.00 Years: 25.00 Types: Cigarettes Quit date: 02/17/2018 - Smokeless tobacco: Never Used - Alcohol use No - Drug use: No - Sexual activity: Yes Partners: Female ALLERGIES Allergen Reactions - Bee Sting Unknown Review of Systems Constitutional: Negative for activity change and appetite change. HENT: Negative for congestion, facial swelling and rhinorrhea. Eyes: Negative. Respiratory: Positive for shortness of breath. Negative for cough and chest tightness. Cardiovascular: Positive for palpitations. Negative for chest pain. Gastrointestinal: Negative for abdominal pain, constipation, diarrhea and nausea. Endocrine: Negative for polydipsia and polyuria. Genitourinary: Negative for difficulty urinating and dysuria. Musculoskeletal: Negative for back pain and joint swelling. Neurological: Positive for dizziness and light-headedness. Negative for syncope, speech difficulty, numbness and headaches. Psychiatric/Behavioral: Negative for agitation and behavioral problems. Physical Exam BP 134/61 Pulse 51 Temp (Src) 97.5 (Temporal Artery) Resp 16 Ht 5' 11 (1.80m) Wt 215 lb (97.5kg) SpO2 97% BMI 30.00 kg/(m2). Physical Exam Constitutional: He is oriented to person, place, and time. He appears well-developed and well-nourished. HENT: Head: Normocephalic and atraumatic. Right Ear: External ear normal. Left Ear: External ear normal. Nose: Nose normal. Mouth/Throat: Oropharynx is clear and moist. Eyes: Pupils are equal, round, and reactive to light. Conjunctivae and EOM are normal. Neck: Normal range of motion. Neck supple. Cardiovascular: Normal heart sounds and normal pulses. Bradycardia present. Pulmonary/Chest: Effort normal and breath sounds normal. Abdominal: Soft. Bowel sounds are normal. Musculoskeletal: Normal range of motion. Neurological: He is alert and oriented to person, place, and time. Skin: Skin is warm and dry. Capillary refill takes less than 2 seconds. Nursing note and vitals reviewed. Diagnostic Testing ED Labs Ordered and Reviewed CBC + AUTO DIFF (AK,AV,EU,FV,HL,RAIZA,MM,SP) - Abnormal; Notable for the following: Result Value Ref Range MCV 94.1 (*) 80.0 - 94.0 fl All other components within normal limits COMPREHENSIVE METABOLIC PANEL (AK,AV,EU,FV,HL,RAIZA,MM,SP) - Abnormal; Notable for the following: Chloride 108 (*) 98 - 107 mEq/L Albumin 3.2 (*) 3.4 - 5.0 g/dL AST 14 (*) 15 - 37 U/L All other components within normal limits MAGNESIUM BLOOD (AK,AV,EU,FV,HL,RAIZA,MM,SP) TROPONIN I (AK) MDRD GFR Procedures ED Course / Clinical Impression Clinical Impressions as of Oct 20 1350 SOB (shortness of breath) MDM / Disposition / Plan 68 y/o male presents with SOB. Patient called EMS because his engraver hand hard metals advised him to if any problem arose. He denies any chest pain. He was at rest when it started. Symptoms resolved upon arrival to ER. He was anxious. I did a cardiac workup given his past medical history. Given the results and the engraver hand hard metals recommendation. He will be discharged home. Case was discussed with Program Instructor Dr. Esteves. Image(s) were ordered and independently reviewed by me, findings include cxr , labs reviewed. Atypical chest pain, CHF, stemi, non stemi considered as differential diagnoses. Differential diagnoses were considered less likely because of the following reasons no chest pain, normal troponin, no changes in the EKG. Additional Tests or Interventions: ECG DispositionThe patient was discharged. Condition at disposition is stable and improved. Critical Care I spent a total of 30 minutes of critical care time in the evaluation and management of this patient. This was necessary to treat or prevent deterioration of the following condition(s): which the patient had and/or has high probability of suddenly developing. The patient received oxygen and consultation with Cardiology during the time that critical care was provided. Critical care time excludes separately billed procedures. Critical care time documentation entered by Ashlee Palacios DO. SIGNATURE: DO Ashlee Ferguson 10/20/18 1353 ED NOTE Observed: 10/20/2018 Status: COMPLETED Source: [place] 11:43 AM [facility] REPOSITORY HNO ID: [id number] Author: Cailin Johnson) RAINA Singleton Service: Emergency Medicine Author Type: Registered Nurse Type: ED Notes Filed: 10/20/2018 11:44 AM Note Text: called back ED NOTE Observed: 10/20/2018 Status: COMPLETED Source: [place] 11:38 AM [facility] REPOSITORY HNO ID: [id number] Author: Cailin (Rn) Mani RN Service: Emergency Medicine Author Type: Registered Nurse Type: ED Notes Filed: 10/20/2018 11:44 AM Note Text: office called for phone consult.[phone] CHEST 1 VIEW Observed: 10/20/2018 Status: F Source: [facility] 10:57 AM [facility] REPOSITORY Performed at [facility] APPROVED BY: Saul Garcia MD EXAMINATION: CHEST RADIOGRAPH (SINGLE VIEW AP OR PA) Clinical History: Chest pain or SOB, pleurisy or effusion suspected M: XC1_4 Comparison: 04/27/2018 RESULT: Lines, tubes, and devices: Sternotomy wires. Lungs and pleura: No consolidation. No lung mass. No pleural effusion. Cardiomediastinal silhouette: Normal cardiomediastinal silhouette. Other: IMPRESSION: No acute radiographic abnormality. ED NOTE Observed: 10/20/2018 Status: COMPLETED Source: [place] 10:40 AM [facility] REPOSITORY HNO ID: [id number] Author: Cailin Johnson) RAINA Singleton Service: Emergency Medicine Author Type: Registered Nurse Type: ED Notes Filed: 10/20/2018 10:41 AM Note Text: Patient resting in bed speaking with girlfriend. Patient smiling and conversing without difficulty ED NOTE Observed: 10/20/2018 Status: COMPLETED Source: [place] 10:10 AM [facility] REPOSITORY HNO ID: [id number] Author: Cailin Johnson) Mani RN Service: Emergency Medicine Author Type: Registered Nurse Type: ED Notes Filed: 10/20/2018 10:11 AM Note Text: Girlfriend at bedside HEMOGRAM/DIFF Collected: 10/20/2018 Status: F Source: [facility] 9:50 AM [facility]ALTH SYSTEM REPOSITORY TYPE CODE TESTS RESULT OUT OF REFERENCE UNITS RANGE LAB LWBC(LOINC 4.8-10.8 thou/cmm ) WBC 6.5 LAB LRBC(LOINC 4.60-6.20 mil/cmm ) RBC 4.77 LAB LHGB(LOINC 14.0-18.0 g/dL ) Hgb 14.8 LAB LHCT(LOINC 42.0-52.0 % ) Hct 44.9 LAB LMCV(LOINC 80.0-94.0 fl ) MCV High 94.1 LAB LMCH(LOINC 27.0-31.0 pg ) MCH 31.0 LAB LMCHC(LOIN 32.0-36.0 % C) MCHC 33.0 LAB LRDW(LOINC 11.5-15.9 % ) RDW 13.8 LAB LPLT(LOINC 150-400 thou/cmm ) Platelet 198 LAB LMPV(LOINC 7.1-10.5 fl ) MPV 9.4 LAB LSEGT(LOIN % C) Seg Neutrophil 55.3 LAB LLYMP(LOIN % C) Lymphocyte 29.3 LAB LMNO(LOINC % ) Monocyte 9.9 LAB RADHA(LOINC % ) Eosinophil 4.6 LAB LBASO(LOIN % C) Basophil 0.9 LAB LSEGN(LOIN 3.00-5.67 thou/cmm C) Abs. Neut (ANC) 3.60 LAB LLYMN(LOIN 1.50-3.65 thou/cmm C) Abs. Lymph 1.90 LAB LMONN(LOIN 0.20-1.00 thou/cmm C) Abs. Slope 0.64 LAB LEOSN(LOIN 0.00-0.41 thou/cmm C) Abs. Eosin 0.30 LAB LBASN(LOIN 0.00-0.08 thou/cmm C) Abs. Baso 0.06 Performed By: #### LCBCD #### [place] [address] COMPREHENSIVE PANEL Collected: 10/20/2018 Status: F Source: [facility] 9:50 AM HEALTH SYSTEM REPOSITORY TYPE CODE TESTS RESULT OUT OF REFERENCE UNITS RANGE LAB SHRIMP POND LABORER(LOINC) 136-145 mEq/L Sodium Blood 136 LAB LK(LOINC) 3.5-5.1 mEq/L Potassium Blood 4.0 LAB LCL(LOINC) 98-107 mEq/L Chloride High Blood 108 LAB LCO2(LOINC 21-32 mEq/L ) CO2 Blood 24 LAB LGLU(LOINC 70-99 mg/dL ) Glucose Blood 91 LAB LBUN(LOINC 7-25 mg/dL ) BUN Blood 11 LAB LCREA(LOIN 0.67-1.17 mg/dL C) Creatinine Blood 0.73 LAB LCA(LOINC) 8.5-10.1 mg/dL Calcium Blood 9.2 LAB LALB(LOINC 3.4-5.0 g/dL ) Low Albumin Blood 3.2 LAB LTP(LOINC) 6.4-8.2 g/dL Total Protein 7.3 LAB LAST(LOINC 15-37 U/L ) Low AST-SGOT Blood 14 LAB LALT(LOINC 14-63 U/L ) ALT-SGPT Blood 18 LAB LALKP(LOIN 46-116 U/L C) Alk Phosphatase 76 LAB LBILT(LOIN 0.2-1.0 mg/dL C) Total Bilirubin 0.5 LAB LANGP(LOIN 8-20 C) Anion Gap 8 LAB LBNCR(LOIN 10-20 C) BUN/Creatinine 15 Ratio Performed By: #### LP14 #### [place] [address] MAGNESIUM BLOOD Collected: 10/20/2018 Status: F Source: [facility] 9:50 AM HEALTH SYSTEM REPOSITORY TYPE CODE TESTS RESULT OUT OF REFERENCE UNITS RANGE LAB LMAG(LOINC 1.8-2.4 mg/dL ) Magnesium Blood 2.0 Performed By: #### LMAG #### [place] [address] MDRD EGFR Collected: 10/20/2018 Status: F Source: [facility] 9:50 AM HEALTH SYSTEM REPOSITORY TYPE CODE TESTS RESULT OUT OF RANGE REFERENCE UNITS LAB LGFRF(LOINC >60mL/min/1.73m ) 2 eGFR >60 Result Comment: If the patient is , multiply the result by 1.210. Performed By: #### LGFR #### [place] [address] TROPONIN I Collected: 10/20/2018 Status: F Source: [facility] 9:50 AM HEALTH SYSTEM REPOSITORY TYPE CODE TESTS RESULT OUT OF REFERENCE UNITS RANGE LAB LTRP(LOINC) <=0.07 ng/mL Troponin I <0.03 Performed By: #### LTRP #### [place] [address] ED NOTE Observed: 10/20/2018 Status: COMPLETED Source: [place] 9:46 AM [facility] REPOSIT[facility] HNO ID: [id number] Author: Monty Barrios (Rn) RAINA Wills Service: (none) Author Type: Registered Nurse Type: ED Notes Filed: 10/20/2018 9:47 AM Note Text: [facility] C/o waking with SOB and dizziness at approximately 0800 Reports dizziness has resolved, continues to feel SOB Denies CP EKG (AK,AV,EU,FV,HL,RAIZA,MM,SP) Observed: Status: F Source: [place] 10/20/2018 9:46 AM CLINIC OTHER CAMPUS REPOSITORY NAME : JEFFREY CULLEN PID : [id number] : 1950 Gender : Male Race : ORD : [id number] Procedure Date : Oct 20 2018 09:46 Edit Date : Oct 22 2018 17:16 Diagnosis:SINUS BRADYCARDIA INCOMPLETE LEFT BUNDLE BRANCH BLOCK BORDERLINE ECG WHEN COMPARED WITH ECG OF 22-APR-2018 10:54, NONSPECIFIC T WAVE ABNORMALITY NO LONGER EVIDENT IN LATERAL LEADS QT HAS SHORTENED Confirmed by MD Watts Vinayak A. ([id number]) on 10/22/2018 5:16:21 PM Ventricular Rate : 55 BPM Atrial Rate : 55 BPM P-R Interval : 162 ms QRS Duration : 106 ms Q-T Interval : 436 ms QTC Calculation(Bezet) : 417 ms P Spencer : 32 degrees R Spencer : -6 degrees T Spencer : -4 degrees Test Reason : Chest Pain Location : 150 : [facility] Overread By : MD Watts Vinayak A. Editted By : MD Watts Vinayak A. Referred By : ASHLEE PALACIOS Acquired by : Babatunde Pryor EXT ARTERIAL Observed: 10/03/2018 Status: F Source: [facility] 6:08 PM [facility] REPOSITORY [facility] [address] [place] [id number] 10/03/18 1807 MR#: [id number] Acct: [id number] Name: JEFFREY CULLEN Jr. Rep #: [id number] : 1950 68 From: Jeffrey Conteh MD Attending Dr: Richie De La Torre DO Status: REG CLI Ordering Dr: Date: 10/03/18 Location: [facility] Sex: M C Admitted: Arterial Study - Arterial Study Arterial Study: Bilateral lower extremity noninvasive arterial exam at rest Right lower extremity The right PT and DP ankle-brachial indices at rest are 1.151.14 respectively. The Doppler waveforms are triphasic at both the right posterior tibial and dorsalis pedis. Left lower extremity The left PT and DP ankle-brachial indices at rest are 1.23 and 1.2 respectively. The left posterior tibial and dorsalis pedis Doppler waveforms are triphasic Impression Normal bilateral lower extremity resting ankle-brachial indices and waveforms Jeffrey Conteh M.D., F.A.C.S. 10/03/181807 <Electronically signed by Jeffrey Conteh MD> Date Jeffrey Conteh MD CC: Richie De La Torre DO Date Dictated: 10/03/181806 Date Transcribed: 10/03/181806 Residential Carpenter: SASHA Signed URIC ACID Collected: 10/03/2018 Status: F Source: [place] 11:04 AM [facility] REPOSITORY TYPE CODE TESTS RESULT OUT OF RANGE REFERENCE UNITS LAB L501.1400 3.5-7.2 mg/dL Normal URIC 5.0 Result Comment: The drugs N-Acetylcysteine and Metamizole may falsely depress this assay. Performed By: #### L501.1400 #### [facility] [address] [place], [address] 12 LEAD ELECTROCARDIOGRAM Observed: 09/26/2018 Status: F Source: [place] 9:21 AM [facility] REPOSITORY [facility] [address] [place] [address] 12 Lead EKG 09/22/1824 MR#: [id number] Acct: [id number] Name: JEFFREY CULLEN Jr. Rep #: [id number] : 1950 68 From: Rancho Quiroz MD Attending Dr: Dalton Torres MD Status: REG RCR Ordering Dr: Dalton Torres MD Date: 09/22/18 Location: CR Sex: M C Admitted: Test Reason : CP IN REHAB Blood Pressure : / mmHG Vent. Rate : 055 BPM Atrial Rate : 055 BPM P-R Int : 156 ms QRS Dur : 102 ms QT Int : 448 ms P-R-T Axes : 050 -02 001 degrees QTc Int : 428 ms Sinus bradycardia Otherwise normal ECG Confirmed by RANCHO QUIROZ ([id number]), greeting card editor WILI BROWN ([id number]) on 09/26/2018 9:21:00 AM Referred By: Dalton Torres Confirmed By:RANCHO QUIROZ 09/26/18 0921 Date Rancho Quiroz MD CC: Dalton Torres MD; Richie De La Torre DO Signed INTERNAL MEDICINE Observed: 09/19/2018 Status: F Source: [place] OFFICE VISIT 2:07 PM [facility] [address] [place] [address] [place] [address] OFFICE VISIT Date of Service: 09/19/18 MR#: [id number] Acct: [id number] Name: JEFFREY CULLEN Jr. Rep #: [id number] : 1950 Provider: Richie De La Torre DO Age/Sex: 68/M Location: [facility] Status: Signed Intake Vital Signs09/19/18 Height 5 ft 10 in Intake Visit Reasons: SLEEP STUDY RESULTS, LEG PAIN Chief Complaint: legs throbbing and possible LATASHA Is patient in pain?: Yes (throbbing in both legs with walking ) Pain scale (1-10): 10 Allergies No Known Allergies Allergy (Unverified 08/16/18 08:40) Medications atorvastatin 40 mg tablet 40 mg PO QDAY #90 tab 06/07/18 [Rx Confirmed 08/16/18] famotidine 20 mg tablet 20 mg PO QDAY #30 tab 06/07/18 [Rx Confirmed 08/16/18] lisinopril 20 mg tablet 20 mg PO QDAY #90 tab 06/07/18 [Rx Confirmed 08/16/18] sennosides 8.6 mg-docusate sodium 50 mg tablet 1 tab PO QDAY PRN #60 tab 06/07/18 [Rx Confirmed 08/16/18] sertraline 100 mg tablet 100 mg PO QDAY #90 tab 06/07/18 [Rx Confirmed 08/16/18] valproic acid 250 mg capsule 250 mg PO TID #90 cap 06/07/18 [Rx Confirmed 08/16/18] celecoxib 200 mg capsule 200 mg PO DAILY #90 cap 08/16/18 [Rx Confirmed 08/16/18] nadolol 40 mg tablet 40 mg PO QDAY #90 tab 08/16/18 [Rx Confirmed 08/16/18] gabapentin 100 mg capsule 100 mg PO BID #180 cap 08/23/18 [Rx] diltiazem CD 180 mg capsule,extended release 24 hr 180 mg PO QDAY #30 cap 08/31/18 [Rx] PFSH Medical History Acute subdural hematoma (Chronic 04/22/18) Paroxysmal atrial fibrillation (Chronic) Ischemic cardiomyopathy (Chronic) Atherosclerosis of coronary artery of [place] heart without angina pectoris (Chronic) Hyperlipemia (Chronic) Hypertension (Chronic) COPD (chronic obstructive pulmonary disease) (Chronic) Depression (Chronic) History of non-ST elevation myocardial infarction (NSTEMI) (Chronic) Insomnia (Chronic) Metabolic encephalopathy (Chronic) Osteoarthritis (Chronic) Klebsiella infection (Resolved) Nonsustained ventricular tachycardia (Resolved) Respiratory failure (Resolved) Surgical History History of coronary artery bypass graft (Resolved 02/09/18) Gastrojejunostomy tube status (Resolved 02/22/18) History of herniorrhaphy (Resolved) History of right knee joint replacement (Resolved) History of tracheostomy (Resolved 02/22/18) Family History Mother Hypertension Colon cancer Father Hypertension Social History Smoking Status: Former smoker how long ago did patient quit smokin alcohol intake: never what type of physical activity do you participate in: none HPI HPI Chief Complaint: legs throbbing and possible LATASHA Details: JEFFREY CULLEN, is a 68 M who presents to the office today for leg pain when exercising. Also for meds for his COPD, which he cannot afford. Though he does not complain of Dyspnea more leg fatigue. ROS Const Constitutional: No weight change, body ache, chills, fatigue, sleep problems, fever(s), change in appetite, snoring, weakness, frequent falls, headache(s) or excessive sweating Eyes Eyes: No change in vision, eye pain, light sensitivity or blurry vision ENT ENT: No headache(s), abnormal hearing, ear pain, tinnitus, nasal congestion, sore throat or neck pain Resp Respiratory: No snoring, cough, shortness of breath or wheezing Cardio Cardiology: No excessive sweating, chest pain at rest, chest pain with exertion, shortness of breath, dyspnea on exertion, palpitations, orthopnea or lightheadedness Gastro GI: No abdominal pain, change in bowel habits, constipation, diarrhea, vomiting, nausea/dyspepsia or cramping Genitourinary Male: No painful urination, urinary incontinence, urinary frequency, urinary urgency, blood in urine, testicle pain or other Musc Musculoskeletal: Positive for other (throbbing in legs with walking ) and muscle weakness; no neck pain, abnormal walking, joint pain, back pain, limited range of motion, numbness or tingling Skin Skin: No redness, dry skin, itching, lesions, wounds or rash Neuro Neurology: Positive for dizziness; no weakness, frequent falls, headache(s), abnormal hearing, abnormal walking, numbness, tingling, abnormal speech or memory loss Psych Psychiatric: No change in appetite, No memory loss, No anxiety, No depression, No Thoughts of harming yourself/Others Endo Endocrine: No fatigue, excessive sweating, cold intolerance, increased thirst/drinking, heat intolerance, flushing or increased hunger Aller/Imm Allergy/Immunologic: No wheezing, itchy eyes, hives or seasonal allergy symptoms Lukasz/Lymp Hematologic/Lymphatic: No easy bleeding, easy bruising or enlarged lymph nodes Exam Const General: cooperative Nutritional Appearance: average body habitus Orientation: oriented x3 Chest Chest palpation AND inspection: normal inspection of the chest Resp Effort AND Inspection: normal respiratory effort Auscultation: Bilateral: Clear to Auscultation Cardio Rate: regular rate Rhythm: regular rhythm Musc Musculoskeletal: Yes muscle weakness Skin General: no rashes or lesions noted Neuro Cranial Nerves: CN's II-XI intact bilaterally Extrem General: normal to inspection, normal capillary refill Other: Peripheral pulses are diminished but still present. Psych Appearance: grossly normal Mental Status: mental status grossly normal Affect: animated Assessment AND Plan Problems 1. Paroxysmal atrial fibrillation I48.0 Postoperative 2. Ischemic cardiomyopathy I25.5 3. History of coronary artery bypass graft Z95.1 CABG x 3- KUMAR-LAD, SVG-RCA and SVG-Distal Cx 02/09/18 @ [facility] Dr [place] 4. Hyperlipemia E78.5 5. Hypertension I10 6. Leg pain, bilateral M79.604; M79.605 Plan Samples of Bevespi were given. Patient has had leg pain during cardiac rehab they were concerned about the possibility of peripheral artery disease. Certainly with his long history of a smoker that would be a possibility however I do feel faint pulses in both extremities. His symptoms of claudication are are significant so we will get an ANGELICA and see if that is the case I gave him some samples for his breathing although his resting pulse ox is 97, so I am not sure a MDI is needed. They also want him to get a sleep study which he did not want to do and says he has no trouble with daytime sleepiness and has no trouble sleeping at night, so this was nothing he wanted to follow through with. Orders Orders: Coding Level of Care Code Off vis,est,level 3 Diagnoses Paroxysmal atrial fibrillation I48.0 Ischemic cardiomyopathy I25.5 History of coronary artery bypass graft Z95.1 Hyperlipemia E78.5 Hypertension I10 Leg pain, bilateral M79.604; M79.605 09/19/18 1407 <Electronically signed by Richie De La Torre DO> Date Richie De La Torre DO Cosigner Signature: Date (if applicable) CC: CR - HISTORY AND Observed: 09/05/2018 Status: F Source: [place] PHYSICAL 11:00 AM [facility] REPOSITORY [facility] [address] [place] [address] CR - History AND Physical MR#: [id number] Acct: [id number] Name: JEFFREY CULLEN Rep #: [id number] : 1950 68 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 Called his friend to take him to ER, friend told patient he was pure white and friend called squad. Interventions with present event:: CABG, was done at [facility]- Were there any complications?: after surgery slipped in coma during surgery, spent 6 weeks in coma. - Medications Home Medications: Ambulatory Orders Medication Instructions Recorded atorvastatin 40 mg tablet 40 mg PO QDAY #90 tab 06/07/18 - Allergies Allergies/Adverse Reactions: Allergies No Known Allergies Allergy (Unverified 08/16/18 08:40) - Sleep Disorder Evaluation Hx of Sleep Apnea: No Do you snore loudly (louder than talking or can be heard through closed doors)?: No Do you often feel tired/ fatigued/ sleepy during daytime?: Yes - sometimes Has anyone observed you stop breathing during sleep?: No History of Hypertension (for STOP score): Yes STOP Results: Positive Advanced Directives - Advanced Directives Power of Spring Fitter: Yes - sister is POA for healthcare Living Will: Yes Advance Directives Information Provided: No Advance Directives on File: No Past Medical History - Past Medical Illness Medical History: Past Medical History (Last Reviewed 08/16/18 @ 09:50 by Dalton Torres MD) Acute subdural hematoma (Chronic) Onset Date: 04/22/18 S06.5X9A Anteromedial left frontal lobe Paroxysmal atrial fibrillation (Chronic) I48.0 Postoperative Ischemic cardiomyopathy (Chronic) I25.5 Atherosclerosis of coronary artery of [place] heart without angina pectoris (Chronic) I25.10 CABG x 3- KUMAR-LAD, SVG-RCA and SVG-Distal Cx 02/09/18 Hyperlipemia (Chronic) E78.5 Hypertension (Chronic) I10 COPD (chronic obstructive pulmonary disease) J44.9 Depression F32.9 History of non-ST elevation myocardial infarction (NSTEMI) I25.2 Insomnia G47.00 Metabolic encephalopathy G93.41 Osteoarthritis M19.90 Klebsiella infection A49.8 Nonsustained ventricular tachycardia I47.2 Respiratory failure J96.90 Required tracheostomy 02/22/18 - Past Surgical History Surgical History: Past Surgical History (Last Reviewed 08/16/18 @ 09:50 by Dalton Torres MD) History of coronary artery bypass graft (Resolved) Onset Date: 02/09/18 Z95.1 CABG x 3- KUMAR-LAD, SVG-RCA and SVG-Distal Cx 02/09/18 @ [facility] Dr Marin Gastrojejunostomy tube status Onset Date: 02/22/18 Z93.4 History of herniorrhaphy Z98.890, Z87.19 History of right knee joint replacement Z96.651 History of tracheostomy Onset Date: 02/22/18 Z98.890 - Family History Summary Family History: Family History (Last Reviewed 08/16/18 @ 09:50 by Dalton Torres MD) Mother Hypertension Colon cancer Father Hypertension Social History - Smoking History Smoking Status: Former smoker Years Smokin Packs Smoked per Day: 3 - using [place] chew now Hx Smoking Cessation Date: 02/08/2018 Hx Tobacco Use: Yes Hx Smoking Exposure: Yes - Alcohol Use Alcohol Usage: No - Substance Abuse Hx Substance Use: No - Occupation 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 Social Environment - Status Marital Status: Single - Current Living Arrangements Living Environment:: Alone - Children Do any of your children live nearby?: No - Safety Do you feel safe in your surroundings?: Yes - Assistance Do you need any assistance at home?: none Review of Systems - Review of Systems Hints: Right click = Denies (Slash). 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 Denies: Shortness of Breath at Rest, Appetite - Special Diet - Pain Is Patient Pain Free?: No Pain Location: none - patient has poor shoulders but is high risk for surgery to repair. Limited range of motion shoulders. Risk Factor Assessment - Chief Complaint Chief Complaint: Patient 68 yr old male patient who presents to CR today following long recovery fololowing CABG in January. Patient was in a coma, spent a long period in hospital recovering, and subsequently to Rehab and then transfered to halfway care for recovery and physical therapy. 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 Smoking Moderate Risk: Smoker or quit 6 months or less ago. Smoking High Risk: Smoker - For Dyslipidemia Dyslipidemia Risk Guidelines: Low Risk: Moderate Risk: High Risk: 15-25% fat 25.1-29% fat >/= 30% fat. <7% sat fat 7-9% sat fat >9% sat fat. <150 mg chol 150-299 mg chol >/= 300 mg chol. LDL <100 LDL 100-129 LDL >/= 130. Chol/HDL ratio <5.0 Chol/HDL ratio 5.0-6.0 Chol/HDL ratio >6.0. Triglycerides <100 Triglycerides 100-149 Triglycerides >/= 150 - For Diabetes Mellitus Diabetes Risk Guidelines: Diabetes Low Risk: HgA1c <6.5% and/or FBG <120. Diabetes Moderate Risk: HgA1c 6.6-7.9% and/or FBG 120- 180. Diabetes High Risk: HgA1c >/= 8% and/or FBG >180 - For Obesity/Overweight Obesity/Overweight Risk Guidelines: Obesity Low Risk: BMI <25.0. Obesity Moderate Risk: BMI 25-29.9. Obesity High Risk: BMI >/= 30.0 - For Hypertension Hypertension Risk Guidelines: Hypertension Low Risk: Systolic <120 and Diastolic <80. Hypertension Moderate Risk: Systolic 120-139 and Diastolic 80-89. Hypertension High Risk: Systolic >/= 140 and Diastolic >/= 90 - For Sedentary Lifestyle Sedentary Lifestyle Risk Guidelines: Sedentary Lifestyle Low Risk: >/= 1,500 kcal/week. Sedentary Lifestyle Moderate Risk: 700-1,499 kcal/week. Sedentary Lifestyle High Risk: < 700 kcal/week - For Depression Depression Risk Guidelines: Depression Low Risk: Not clinically depressed. Depression Moderate Risk: Mildly depressed. 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 What do you see as the benefits of succesfully completing the program? In other words, what do you hope to get out of participating in the program?: get stronger, legs and arms back to normal Do you have a spouse or signficant other, family or friends who will help support you to complete the program?: sister is great support 09/05/1836 <Electronically signed by Cole Ford CRT, RCP, EPIFANIO> Date Cole Ford CRT, RCP, EPIFANIO Outcome assessment reviewed. Exercise plan approved as documented. Treatment plan and goals support patient needs/abilities. Continue with current plan. I certify the patient demonstrates improvement and remains willing and capable of participation. the patient continues to benefit from cardiac rehab services/training. The patient may continue at current intensity, endurance and modality and progress per protocol. 09/05/18 1100 <Electronically signed by Dalton Torres MD> Cosigner Signature: Date Dalton Torres MD CC: Signed LIVER PROFILE Collected: 08/16/2018 Status: F Source: [place] 10:23 AM [facility] REPOSITORY TYPE CODE TESTS RESULT OUT OF RANGE REFERENCE UNITS LAB L501.1500 6.4-8.2 g/dL Normal T PROT 7.6 LAB L501.1800 3.2-5.0 g/dL Low ALB 3.1 LAB L501.1950 2.2-4.2 g/dL High GLOB 4.5 LAB L501.4100 15-37 U/L Low AST 9 LAB L501.4305 45-117 U/L Normal ALK P 75 LAB L501.4405 16-61 U/L Normal ALT 16 LAB L501.4600 0.20-1.00 mg/dL Normal T BILI 0.50 LAB L501.4700 0.00-0.30 mg/dL Normal D BILI 0.15 Performed By: #### L500.3400, L500.4100 #### [facility] [address], [place], [address] LIPID PROFILE Collected: 08/16/2018 Status: F Source: [place] 10:23 AM [facility] REPOSITORY TYPE CODE TESTS RESULT OUT OF RANGE REFERENCE UNITS LAB L501.4900 200 mg/dL Normal CHOL 146 Result Comment: <200 mg/dL Desirable 200-240 mg/dL Borderline >240 mg/dL High Risk LAB L501.5000 mg/dL Normal TRIG 142 Result Comment: The drugs N-Acetylcysteine and Metamizole may falsely depress this assay. Serum Triglycerides Reference Interval Normal <150 mg/dL Borderline high 150 - 199 mg/dL High 200 - 499 mg/dL Very High > or = 500 mg/dL LAB L501.6400 mg/dL Normal HDL 51 Result Comment: The drugs N-Acetylcysteine and Metamizole may falsely depress this assay. Reference Range HDL <40 mg/dL Low HDL Cholesterol HDL >or= 60 mg/dL High HDL Cholesterol LAB L501.6500 0-130 mg/dL Normal LDL 67 LAB L501.6600 5-40 mg/dL Normal VLDL 28 Performed By: #### L500.3400, L500.4100 #### [facility] [address] [place], [address] CARDIOLOGY VISIT Observed: 08/16/2018 Status: F Source: [place] 9:58 AM [facility] REPOSITORY [facility] [address] [place] [address] OFFICE VISIT Date of Service: 08/16/18 MR#: [id number] Acct: [id number] Name: JEFFREY CULLEN Rep #: [id number] : 1950 Provider: Dalton Torres MD Age/Sex: 68/M Location: [facility] Status: Signed HPI HPI Chief Complaint: Initial visit Details: JEFFREY CULLEN, is a 68 M who presents to the office today for initial visit. He is a 68-year-old gentleman who had presented in January with chest discomfort and had an abnormal troponin. He was transferred to [facility] where he underwent a cardiac catheterization. It demonstrated reduced ejection fraction of 45% severe triple-vessel disease with a 50% proximal left anterior descending artery stenosis, 70% mid left anterior descending artery stenosis, 70% proximal circumflex artery stenosis, 90% proximal right coronary artery stenosis with thrombus noted therein. There was a 70% mid right coronary artery. Due to the above he was referred for coronary artery bypass surgery and he underwent on 02/09/2018 three-vessel bypass surgery with a left internal mammary artery to the left anterior descending artery, saphenous vein graft to right coronary artery and saphenous vein graft to distal circumflex artery. Postoperatively his course was complicated by respiratory failure requiring a tracheostomy and nonsustained ventricular tachyarrhythmia. He was subsequently discharged to an extended care facility after an echocardiogram was performed which demonstrated an ejection fraction approximately 40%. He apparently fell out of the wheelchair and sustained a subdural hematoma he was noted to have elevated natruretic peptide and was transferred back to [place]. He has since done well denying any chest pain or shortness breath or paroxysmal nocturnal dyspnea or pedal edema he does have bilateral shoulder discomfort and wants to take nonsteroidal for this. He has been compliant with all his medications. His physical exam demonstrates clear lung nunez regular rate and rhythm and no pedal edema. His blood pressure however today appears to be mildly elevated. Intake Vital Signs08/16/18 Height 5 ft 10 in 08/16/18 Weight: 209 lb 08/16/18 Body Mass Index (BMI) 29.9 08/16/18 Blood Pressure 150/70 08/16/18 Respiratory Rate 18 08/16/18 Pulse Rate 60 Intake Visit Reasons: PCP ref'd, CABG at [facility] in January Allergies No Known Allergies Allergy (Unverified 08/16/18 08:40) Medications atorvastatin 40 mg tablet 40 mg PO QDAY #90 tab 06/07/18 [Rx Confirmed 08/16/18] famotidine 20 mg tablet 20 mg PO QDAY #30 tab 06/07/18 [Rx Confirmed 08/16/18] lisinopril 20 mg tablet 20 mg PO QDAY #90 tab 06/07/18 [Rx Confirmed 08/16/18] nadolol 40 mg tablet 40 mg PO QDAY #30 tab 06/07/18 [Rx Confirmed 08/16/18] sennosides 8.6 mg-docusate sodium 50 mg tablet 1 tab PO QDAY PRN #60 tab 06/07/18 [Rx Confirmed 08/16/18] sertraline 100 mg tablet 100 mg PO QDAY #90 tab 06/07/18 [Rx Confirmed 08/16/18] valproic acid 250 mg capsule 250 mg PO TID #90 cap 06/07/18 [Rx Confirmed 08/16/18] diltiazem CD 180 mg capsule,extended release 24 hr 180 mg PO QDAY #30 cap 07/26/18 [Rx Confirmed 08/16/18] celecoxib 200 mg capsule 200 mg PO DAILY #90 cap 08/16/18 [Rx Confirmed 08/16/18] gabapentin 100 mg capsule 100 mg PO BID cap 08/16/18 [History Confirmed 08/16/18] [facility] Medical History Acute subdural hematoma (Chronic 04/22/18) Paroxysmal atrial fibrillation (Chronic) Ischemic cardiomyopathy (Chronic) Atherosclerosis of coronary artery of [place] heart without angina pectoris (Chronic) Hyperlipemia (Chronic) Hypertension (Chronic) COPD (chronic obstructive pulmonary disease) (Chronic) Depression (Chronic) History of non-ST elevation myocardial infarction (NSTEMI) (Chronic) Insomnia (Chronic) Metabolic encephalopathy (Chronic) Osteoarthritis (Chronic) Klebsiella infection (Resolved) Nonsustained ventricular tachycardia (Resolved) Respiratory failure (Resolved) Surgical History History of coronary artery bypass graft (Resolved 02/09/18) Gastrojejunostomy tube status (Resolved 02/22/18) History of herniorrhaphy (Resolved) History of right knee joint replacement (Resolved) History of tracheostomy (Resolved 02/22/18) Family History Mother Hypertension Colon cancer Father Hypertension Social History Smoking Status: Former smoker how long ago did patient quit smokin alcohol intake: never what type of physical activity do you participate in: none ROS Const Const: Positive for other (Uses Chewing tobacco/ 1 can daily); negative for fatigue, weakness, difficulty sleeping, frequent falls, excessive sweating or headache(s) Eyes Eyes: Positive for blurry vision (Sudden onset of blurred while watching TV 5 days ago); negative for loss of peripheral vision, transient loss of vision, tunnel vision or double vision ENT ENT: Negative for headache(s), dizziness, Nosebleed/epistaxis or balance problems Cardio Chest Pain: No Palpitations: No Edema: None Muscle aches with walking: None Resp Respiratory: Positive for SOB with activity; negative for SOB at rest, SOB orthopnea\SOB lying down, paroxysmal nocturnal dyspnea or Cough GI GI: Negative nausea, heartburn, black,tarry stools or vomiting : Negative for hematuria Musc Musc: Positive for joint pain (Bilateral joint pain); negative for balance problems, muscle aches/ myalgia or muscle weakness Skin Skin: Negative non-healing lesions, unusual bruising or rash Neuro Neuro: Positive for blurry vision (Sudden onset of blurred while watching TV 5 days ago); negative for weakness, frequent falls, headache(s), double vision, dizziness, lightheadedness, orthostatic symptoms, near syncope, syncope or lack of coordination Lukasz Hematologic/Lymphatic: Negative for easy bruising or easy bleeding Endo Endo: Negative for fatigue, excessive sweating or increased thirst/drinking Psych Psych: Negative for anxiety or depression Allergy Allergy/Immunology: Negative for hives, Negative for rash Cardiology Exam Const Appearance: cooperative, healthy appearing, well developed, well groomed and no acute distress Nutritional Appearance: well nourished and average body habitus Orientation: alert, awake and oriented x3 Head Head: normal to inspection, normocephalic and atraumatic Ears: hearing grossly normal bilaterally and external ears normal Nose: external nose normal, nasal mucous membranes and turbinates normal, nares normal, septum normal, no nasal discharge Face and Sinus: face symmetric Mouth: oral mucosae normal, tongue normal, oropharynx normal and moist mucous membranes Teeth and gingiva: dentition normal Throat: posterior oropharynx normal, tonsils normal and uvula midline Eyes General: appearance normal, both eyes and all related structures Eyelids: eyelids normal Conjunctivae: conjunctivae normal Pupils: PERRL, normal by confrontation and accommodation normal EOM: EOM intact bilaterally Neck Neck: normal visual inspection, trachea midline and no JVD JVD: +5 Carotids: normal carotid upstroke and bounding pulses Chest Chest inspection: normal inspection of the chest, symmetric chest movement and normal respiratory effort Auscultation: Bilateral: Clear to Auscultation Cardio Palpation: normal PMI Rate: regular rate Rhythm: regular rhythm Heart sounds: S1 normal, S2 normal and normal, physiologic split S2; negative rub, gallop or murmur GI GI: normal to inspection, soft, no hepatosplenomegaly and bowel sounds present Neuro General: alert, awake, oriented x3, no focal sensory deficit, gait normal and moves all extremities Skin Skin: no rashes or lesions noted Extremities Pulses: Normal: Right Femoral Pulse, Left Femoral Pulse, Right Dorsalis Pedis Pulse, Left Dorsalis Pedis Pulse, Right Posterior Tibial Pulse, Left Posterior Tibial Pulse, Right Radial Pulse, Left Radial Pulse Lower Extremity Edema: None: Bilateral Musculoskel Musculoskeletal: No joint tenderness Psych Psychological: normal affect Assessment AND Plan 1. History of coronary artery bypass graft Z95.1 CABG x 3- KUMAR-LAD, SVG-RCA and SVG-Distal Cx 02/09/18 @ [facility] Dr [place] Plan He is status post successful triple-vessel coronary bypass surgery he appears to be doing remarkably well at this time my recommendation is that he can increase his cardiac activity and exercise activity. He tells me that he wants to go on [place] this fall and at this time I do not see any contraindications. He can start cardiac rehabilitation. Orders Referrals: 2. Ischemic cardiomyopathy I25.5 Plan He does have a history of ischemic cardiomyopathy his last estimated ejection fraction was approximately 40-45% he remain on the MAYRA inhibitor he has not had any heart failure symptoms. Orders Orders: Referrals: 3. Hyperlipemia E78.5 Plan He has a history of hyperlipidemia and on high intensity statin recommend obtaining a repeat lipid profile. Depending on the findings further recommendations will be made. Orders Orders: Referrals: 4. Hypertension I10 Plan His blood pressure today appears to be mildly elevated he is on diltiazem as well as nadolol and lisinopril. I would not make any changes at this time but will continue to monitor his blood pressure and also had cardiac rehabilitation if it remains stable then no changes will be made. Orders Referrals: 5. Paroxysmal atrial fibrillation I48.0 Postoperative Plan He does not appear to have had any paroxysms of the above it appears to be postoperative. We will continue to observe him regarding this. Orders Referrals: Plan Detail Other Orders Referrals: Other Medications New: Discontinued: tramadol Discontinued Reason: D50 mg PO Q6H pain (scale score 4-6M19.90 Marissa Coy iscontinued by PCP/other physicians) Follow Up 4 Months (r) Coding Level of Care Code Off vis,new,level 5 Diagnoses History of coronary artery bypass graft Z95.1 Ischemic cardiomyopathy I25.5 Hyperlipemia E78.5 Hypertension I10 Paroxysmal atrial fibrillation I48.0 Coding Level of Care Code Off vis,new,level 5 Diagnoses History of coronary artery bypass graft Z95.1 Ischemic cardiomyopathy I25.5 Hyperlipemia E78.5 Hypertension I10 Paroxysmal atrial fibrillation I48.0 08/16/18 0958 <Electronically signed by Dalton Torres MD> Date Dalton Torres MD Cosigner Signature: Date (if applicable) CC: Richie De La Torre DO PROGRESS Observed: 08/04/2018 Status: COMPLETED Source: [place] 9:34 AM [facility] [place] REPOSITORY O ID: [id number] Author: Reji (Ailyn Veliz Service: (none) Author Type: Physical Therapist Type: Progress Notes Filed: 08/04/2018 9:37 AM Note Text: Episode Visit Count: 14 Therapist That Will Oversee The Plan Of Care: Reji Veliz Start of Care Date: 06/09/18 Onset Date: 02/06/18 Plan of Care Certification Date: 06/09/18 Patient Identified by Name and Date of : Yes REHABILITATION AND SPORTS THERAPY PHYSICAL THERAPY DISCONTINUANCE OF CARE PLAN OF CARE UPDATE: Assessment: Jeffrey Cullen Jr. is discontinued from Physical Therapy services due to maximal benefit.. Patient was seen for 14 visits from Start of Care Date: 06/09/18 to 08/04/2018 and treatment included: Therapeutic exercise, Neuromuscular re-education, Therapeutic activities, Gait training, Patient/Family/Caregiver Education, Body mechanics training and Functional training. Goals status as of 08/04/18 Goals for Episode of Care: created on 06/09/18 through 08/08/18 [place] in home exercise program. MET Patient will demonstrate 5/5 strength through BLE to facilitate gait and improve safety. MET Demonstrate improvement on functional score: Patient will improve his/her AM-PAC T-scale score by 4 points to indicate a Minimal Clinical Important Difference . Scored 53.12 at initial evaluation Current score 58.58, MET Update goal to increase by 4 additional points NOT MET. Scored 60.38 on 08/04/[address] negotiation[address] PARTIALLY MET G CODE REPORTING Based on clinical assessment and the score on the AM-PAC Scale Score Assessment Tool, the G code and corresponding severity modifiers are documented below. Evaluation: 06/09/2018 Current Status: Mobility: Walking and Moving Around: G8978 CK 40-59% impaired Goal Status: Mobility: Walking and Moving Around: G8979 CJ 20-39% impaired Progress Report: 07/07/2018 Current Status: Mobility: Walking and Moving Around: G8978 CJ 20-39% impaired Goal Status: Mobility: Walking and Moving Around: G8979 CI 1-19% impaired SUBJECTIVE: Back is better. Frustrated by problem in his R shoulder x2 days after seeing OT last visit. Back is a little better today. Pain Score: 5/10 Pain Location: Back OBJECTIVE MEASURES WITH LEVEL OF FUNCTION: LE Strength R Hip Flexion (L2): 5/5 R Knee Extension (L3): 5/5 R Knee Flexion: 5/5 R Ankle Dorsiflexion (L4): 5/5 L Hip Flexion (L2): 5/5 L Knee Extension (L3): 5/5 L Knee Flexion: 5/5 L Ankle Dorsiflexion (L4): 5/5 5 Times Sit to Stand Test : 16.6 sec MiniBest Test Sit to stand: 2- Normal: Comes to stand without use of hands and stabilizes independently Rise to toes: 1- Moderate: Heels up, but not full range (smaller than when holding hands) OR noticeable instability Stand on one leg (right): 2- Normal: 20 sec Stand on one leg (left): 0- Severe: Unable Stand on one leg lowest score: 0 Compensatory steppage correction- forward: 1- Moderate: More than one step used to recover equilibrium Compensatory steppage correction- backward: 2- Normal: Recovers independently with a single, large step Compensatory steppage correction- lateral (right): 2- Normal: Revcovers independently with 1 step Compensatory steppage correction- lateral (left): 2- Normal: Revcovers independently with 1 step Compensatory steppage correction- lowest score: 2 Eyes open, firm surface, feet together: 2- Normal: 30 sec Eyes closed, foam surface, feet together: 1- Moderate: < 30 sec Incline, eyes closed: 2- Normal: 30 sec and aligns with gravity Change in gait speed: 2- Normal: significantly changes walking speed without imbalance Walk with head turns - horizontal: 2- Normal: performs head turns with no change in gait speed and good balance Walk with pivot turn: 2- Normal: Turns with feet close FAST (less than or equal to 3 steps) with good balance Step over obstacle: 2- Normal: Able to step over box with minimal change of gait speed and with good balance TUG with dual task: 2- Normal: No noticeable change between sitting AND standing in backward counting AND no change in gait speed for TUG. MiniBest Score: 23 Timed Up and Go (sec): 9.25 sec TREATMENT: Therapeutic Exercise: 1: nu step seat11 le only level 7 8min 30 steps per minute 2: Squats (50% depth): 3: formal reassessment Skilled Intervention: Patient was educated in proper exercise technique and purpose for exercises. Skilled judgment was provided in selection of appropriate interventions. Correct performance of therapeutic exercises was facilitated with verbal cuing. Patient education as noted. Neuromuscular Re-Education: 1: Rhythmic Stab on BB, 2'xs 2: Rhythmic Stab on BB with dowel: 2'x3 3: mini best Skilled Intervention: Skilled judgment used to assess appropriate program for balance and coordination activity. Education in sitting posture using a lumbar roll and slouch/correction for body awareness. Reviewed and educated patient on additions/changes for home program as noted above with an (*). Patient education as noted. Billing: [place]: Therapeutic Exercise (01190): 1:1 time: 30 minutes (2 units: 23-37 mins) Neuromuscular Re-education (81488): 1:1 time:25 minutes (2 units: 23-37 mins) Total time: 55 minutes Reji Veliz PT CNTHERAPY Observed: 08/04/2018 Status: COMPLETED Source: [place] 7:45 AM [facility] REPOSITORY OT/PT/Speech Visit (LDPT) JEFFREY CULLEN JR. ([id number]) 1950 M T Date Time Provider Department 08/04/18 7:45 AM REJI VELIZ (PT) LDPT Date Time Provider Department [place] 08/04/2018 7:45 AM [id number], STEPHEN (P*LDPT AG [address] Reason for Visit: Physical Therapy [503] PT Discharge [752] Reason For Visit History Recorded Primary Visit Diagnosis:Weakness [R53.1] Other Visit Diagnosis:SDH (subdural hematoma) ([facility]) [S06.5X9A] Allergies As of Date: 08/04/2018 Noted Allergy Reaction BEE STING 04/22/2018 16 - Unknown Date Reviewed: 07/04/2018 Reviewed by: Stephani MoodyOtKristin Shah OT - Fully Assessed Prescriptions as of 08/04/2018 Sig: APIXABAN 5 MG TABLET Take 1 tablet by mouth twice * ACETAMINOPHEN 325 MG TABLET Take 2 tablets by mouth every* LEVETIRACETAM 500 MG TABLET Take 1 tablet by mouth twice * AMIODARONE 100 MG TABLET Take 200 mg by mouth once katerina* FAMOTIDINE 10 MG TABLET Take 20 mg by mouth twice katerina* LISINOPRIL 2.5 MG TABLET Take 2.5 mg by mouth once katerina* NADOLOL 20 MG TABLET Take 40 mg by mouth once janet* VALPROIC ACID ( SODIUM SALT* Take 10 mL by mouth every 8 h* ONDANSETRON HCL (PF) 4 MG/2 M* Inject 4 mg intravenously federica* ATORVASTATIN 40 MG TABLET Take 1 tablet by mouth daily * HALOPERIDOL 2 MG/ML ORAL CONC* Take 2.5 mL by mouth every 6 * ALBUTEROL SULFATE 2.5 MG/3 ML* Use 3 mL via nebulizer every * IPRATROPIUM-ALBUTEROL 0.5 MG-* Inhale 3 mL as instructed fou* METOPROLOL TARTRATE 100 MG TA* Take 1 tablet by mouth every * DILTIAZEM 60 MG TABLET 1 tablet by NASOGASTRIC route* PROPOFOL 10 MG/ML INTRAVENOUS* Inject 1.091-5.455 mg/min int* BUDESONIDE 0.5 MG/2 ML SUSPEN* Use 4 mL via nebulizer twice * METOCLOPRAMIDE 5 MG/ML INJECT* Inject 10 mg intravenously ev* POLYETHYLENE GLYCOL 3350 17 G* Take 1 Packet by mouth once d* SENNOSIDES 8.6 MG-DOCUSATE SO* Take 1 tablet by mouth twice * BISACODYL 10 MG RECTAL SUPPOS* 1 Suppository by RECTAL route* MELATONIN 3 MG TABLET Take 2 tablets by mouth daily* ASPIRIN 81 MG CHEWABLE TABLET Take 1 tablet by mouth once d* SODIUM CHLORIDE 0.9 % INJECTI* Inject 10 mL intravenously ev* SODIUM CHLORIDE 0.9 % INJECTI* Inject 20 mL intravenously as* THIAMINE HCL (VITAMIN B1) 100* Take 1 tablet by mouth once d* Progress Notes: Reji Veliz, PT 08/04/2018 9:37 AM Signed Episode Visit Count: 14 Therapist That Will Oversee The Plan Of Care: Reji Veliz Start of Care Date: 06/09/18 Onset Date: 02/06/18 Plan of Care Certification Date: 06/09/18 Patient Identified by Name and Date of : Yes REHABILITATION AND SPORTS THERAPY PHYSICAL THERAPY DISCONTINUANCE OF CARE PLAN OF CARE UPDATE: Assessment: Jeffrey Cullen Jr. is discontinued from Physical Therapy services due to maximal benefit.. Patient was seen for 14 visits from Start of Care Date: 06/09/18 to 08/04/2018 and treatment included: Therapeutic exercise, Neuromuscular re-education, Therapeutic activities, Gait training, Patient/Family/Caregiver Education, Body mechanics training and Functional training. Goals status as of 08/04/18 Goals for Episode of Care: created on 06/09/18 through 08/08/18 [place] in home exercise program. MET Patient will demonstrate 5/5 strength through BLE to facilitate gait and improve safety. MET Demonstrate improvement on functional score: Patient will improve his/her AM-PAC T-scale score by 4 points to indicate a Minimal Clinical Important Difference . Scored 53.12 at initial evaluation Current score 58.58, MET Update goal to increase by 4 additional points NOT MET. Scored 60.38 on 08/04/[address] negotiation[address] PARTIALLY MET G CODE REPORTING Based on clinical assessment and the score on the AM-PAC Scale Score Assessment Tool, the G code and corresponding severity modifiers are documented below. Evaluation: 06/09/2018 Current Status: Mobility: Walking and Moving Around: G8978 CK 40-59% impaired Goal Status: Mobility: Walking and Moving Around: G8979 CJ 20-39% impaired Progress Report: 07/07/2018 Current Status: Mobility: Walking and Moving Around: G8978 CJ 20-39% impaired Goal Status: Mobility: Walking and Moving Around: G8979 CI 1-19% impaired SUBJECTIVE: Back is better. Frustrated by problem in his R shoulder x2 days after seeing OT last visit. Back is a little better today. Pain Score: 5/10 Pain Location: Back OBJECTIVE MEASURES WITH LEVEL OF FUNCTION: LE Strength R Hip Flexion (L2): 5/5 R Knee Extension (L3): 5/5 R Knee Flexion: 5/5 R Ankle Dorsiflexion (L4): 5/5 L Hip Flexion (L2): 5/5 L Knee Extension (L3): 5/5 L Knee Flexion: 5/5 L Ankle Dorsiflexion (L4): 5/5 5 Times Sit to Stand Test : 16.6 sec MiniBest Test Sit to stand: 2- Normal: Comes to stand without use of hands and stabilizes independently Rise to toes: 1- Moderate: Heels up, but not full range (smaller than when holding hands) OR noticeable instability Stand on one leg (right): 2- Normal: 20 sec Stand on one leg (left): 0- Severe: Unable Stand on one leg lowest score: 0 Compensatory steppage correction- forward: 1- Moderate: More than one step used to recover equilibrium Compensatory steppage correction- backward: 2- Normal: Recovers independently with a single, large step Compensatory steppage correction- lateral (right): 2- Normal: Revcovers independently with 1 step Compensatory steppage correction- lateral (left): 2- Normal: Revcovers independently with 1 step Compensatory steppage correction- lowest score: 2 Eyes open, firm surface, feet together: 2- Normal: 30 sec Eyes closed, foam surface, feet together: 1- Moderate: < 30 sec Incline, eyes closed: 2- Normal: 30 sec and aligns with gravity Change in gait speed: 2- Normal: significantly changes walking speed without imbalance Walk with head turns - horizontal: 2- Normal: performs head turns with no change in gait speed and good balance Walk with pivot turn: 2- Normal: Turns with feet close FAST (less than or equal to 3 steps) with good balance Step over obstacle: 2- Normal: Able to step over box with minimal change of gait speed and with good balance TUG with dual task: 2- Normal: No noticeable change between sitting AND standing in backward counting AND no change in gait speed for TUG. MiniBest Score: 23 Timed Up and Go (sec): 9.25 sec TREATMENT: Therapeutic Exercise: 1: nu step seat11 le only level 7 8min 30 steps per minute 2: Squats (50% depth): 3: formal reassessment Skilled Intervention: Patient was educated in proper exercise technique and purpose for exercises. Skilled judgment was provided in selection of appropriate interventions. Correct performance of therapeutic exercises was facilitated with verbal cuing. Patient education as noted. Neuromuscular Re-Education: 1: Rhythmic Stab on BB, 2'xs 2: Rhythmic Stab on BB with dowel: 2'x3 3: mini best Skilled Intervention: Skilled judgment used to assess appropriate program for balance and coordination activity. Education in sitting posture using a lumbar roll and slouch/correction for body awareness. Reviewed and educated patient on additions/changes for home program as noted above with an (*). Patient education as noted. Johning: Carmelo: Therapeutic Exercise (06421): 1:1 time: 30 minutes (2 units: 23-37 mins) Neuromuscular Re-education (27274): 1:1 time:25 minutes (2 units: 23-37 mins) Total time: 55 minutes Reji Veliz PT Letter Text PROGRESS Observed: 08/01/2018 Status: COMPLETED Source: [place] 9:56 AM [facility] REPOSITORY [facility] ID: [id number] Author: Beata (Jostin) MANUEL Alfaro ASSIST Service: (none) Author Type: Switch Operator Type: Progress Notes Filed: 08/01/2018 9:59 AM Note Text: Episode Visit Count: 13 Therapist That Will Oversee The Plan Of Care: Jose AlfredoReji Start of Care Date: 06/09/18 Onset Date: 02/06/18 Plan of Care Certification Date: 06/09/18 Patient Identified by Name and Date of : Yes REHABILITATION AND SPORTS THERAPY PHYSICAL THERAPY TREATMENT NOTE ASSESSMENT: Jeffrey Cullen Jr. demonstrated difficulty with maintaining neutral posture with gait and standing exercises. The patient will continue to benefit from continued skilled physical therapy for core stability and postural awareness. PLAN FOR NEXT VISIT: continue to strengthen core, with neutral posture to decrease instince of back with activity SUBJECTIVE: pt took tramadol at 7 this am reports no shoulder or back pain Pt had 10/10 pain in back this weekend driving to and from [place] and also noted le weakness and tightness Pain Score: 0/10 Pain Location: Back;Shoulder - Right;Shoulder - Left Frequency: Intermittent Post Treatment Pain Score: 8/10 Pain Location: Back (with activitiy) Post Treatment Pain Description: Sore OBJECTIVE MEASURES WITH LEVEL OF FUNCTION: Pt with progressively more forward bent posture with gait TREATMENT: Therapeutic Exercise: 1: nu step seat11 le only level 7 8min 30 steps per minute 2: seated lateral pull with chest press mckeon tb 10 x2 rll 3: seated low trap and mid trap rows blue 10 x 2 each 4: quadraped fire hydrants right 5 x left 10 x Pt unable to stabilize left hip with right leg raise 5: standing mid and low trap rows blue tb 10 x 2 each 6: standing fire hydrants 10 x r/l Skilled Intervention: Patient was educated in proper exercise technique and purpose for exercises. Skilled judgment was provided in selection of appropriate interventions. Gait Trainin: gait on level ground in [address] 6 min 3 standing rests 2: Advised pt to stand tall or perform standing back bends to neutral to alleviate symptoms Skilled Intervention: Postural cues with gait Billing: [place]: Therapeutic Exercise (76291): 1:1 time: 45 minutes (3 units: 38-52 mins) Gait Training (56288): 1:1 time: 6 minutes (no charge) Total time: 51 minutes Beata Alfaro PTA PROGRESS Observed: 08/01/2018 Status: COMPLETED Source: [place] 9:55 AM [facility] REPOSITORY [facility] ID: [id number] Author: Nadeem (Ot) XU Steele Service: (none) Author Type: Occupational Therapist Type: Progress Notes Filed: 08/04/2018 3:14 PM Note Text: Episode Visit Count: 13 Therapist That Will Oversee The Plan Of Care: Vinnie Steele Start of Care Date: 06/09/18 Onset Date: 02/07/18 Plan of Care Certification Date: 07/25/18 Patient Identified by Name and Date of : Yes REHABILITATION AND SPORTS THERAPY OCCUPATIONAL THERAPY TREATMENT NOTE ASSESSMENT: Jeffrey Cullen Jr. demonstrated difficulty with bilateral shoulder weakness and limited ROM in bilateral shoulders.. The patient will continue to benefit from continued skilled occupational therapy for soft tissue mobilization, joint mobilization, pain reduction and improving ROM. PLAN FOR NEXT VISIT: SUBJECTIVE: OT treatment My fingers feel really good. Tingling in only in the finger tips on the left but further up the hand on the right. Pain Score: 0/10 OBJECTIVE MEASURES WITH LEVEL OF FUNCTION: Completed deep tissue mobilization, joint mobilization and pain control techniques. Improved discomfort with movement. Continues to have impaired body mechanics which are impeding ability to improve ROM in bilateral shoulders. TREATMENT: Therapeutic Exercise: 1: 3# external rotation in seated. Emphasis on scapular retraction. Skilled Intervention: Patient was educated in proper exercise technique and purpose for exercises. Skilled judgment was provided in selection of appropriate interventions. Manual Therapy: 1: AP mobilization to bilateral shoulders 2: Deep tissue mobilization with prolonged pressure to bilateral bicep tendons and bilateral deltoid insertions 3: IDN to bilateral lateral shoulders. 3 triggerpoints on the right shoulder and 4 trigger points on the left shoulder. Skilled Intervention: Manual skills to improve joint mobility, ROM, and decrease pain. Utilized anatomy knowledge of the therapist, and assessment of patient's response to intervention. Billing: [place]: Therapeutic Exercise (40399): 1:1 time: 6 minutes (no charge) Manual therapy (75606): 1:1 time: 49 minutes (4 units: 53- 67 mins) absorbed therex minutes Total time: 55 minutes HEATHER Diallo/Fara CNTHERAPY Observed: 08/01/2018 Status: COMPLETED Source: [place] 9:00 AM [facility] REPOSITORY OT/PT/Speech Visit (LTOT) JEFFREY CULLEN JR. ([id number]) 1950 [facility] Date Time Provider Department 08/01/18 9:00 AM NADEEM STEELE (SUMMER) LTOT Date Time Provider Department [place] 08/01/2018 9:00 AM [id number], TIMOTHY *LTOT [address] Reason for Visit: Occupational Therapy [504] Primary Visit Diagnosis:Weakness [R53.1] Other Visit Diagnoses:Stiffness of right hand joint [M25.641] Stiffness of left hand joint [M25.642] Decreased range of motion of right shoulder [M25.611] Decreased range of motion of left shoulder [M25.612] Decreased activities of daily living (ADL) [R68.89] Allergies As of Date: 08/01/2018 Noted Allergy Reaction BEE STING 04/22/2018 16 - Unknown Date Reviewed: 07/04/2018 Reviewed by: Stephani Shah OT - Fully Assessed Prescriptions as of 08/01/2018 Sig: APIXABAN 5 MG TABLET Take 1 tablet by mouth twice * ACETAMINOPHEN 325 MG TABLET Take 2 tablets by mouth every* LEVETIRACETAM 500 MG TABLET Take 1 tablet by mouth twice * AMIODARONE 100 MG TABLET Take 200 mg by mouth once katerina* FAMOTIDINE 10 MG TABLET Take 20 mg by mouth twice katerina* LISINOPRIL 2.5 MG TABLET Take 2.5 mg by mouth once katerina* NADOLOL 20 MG TABLET Take 40 mg by mouth once janet* VALPROIC ACID ( SODIUM SALT* Take 10 mL by mouth every 8 h* ONDANSETRON HCL (PF) 4 MG/2 M* Inject 4 mg intravenously federica* ATORVASTATIN 40 MG TABLET Take 1 tablet by mouth daily * HALOPERIDOL 2 MG/ML ORAL CONC* Take 2.5 mL by mouth every 6 * ALBUTEROL SULFATE 2.5 MG/3 ML* Use 3 mL via nebulizer every * IPRATROPIUM-ALBUTEROL 0.5 MG-* Inhale 3 mL as instructed fou* METOPROLOL TARTRATE 100 MG TA* Take 1 tablet by mouth every * DILTIAZEM 60 MG TABLET 1 tablet by NASOGASTRIC route* PROPOFOL 10 MG/ML INTRAVENOUS* Inject 1.091-5.455 mg/min int* BUDESONIDE 0.5 MG/2 ML SUSPEN* Use 4 mL via nebulizer twice * METOCLOPRAMIDE 5 MG/ML INJECT* Inject 10 mg intravenously ev* POLYETHYLENE GLYCOL 3350 17 G* Take 1 Packet by mouth once d* SENNOSIDES 8.6 MG-DOCUSATE SO* Take 1 tablet by mouth twice * BISACODYL 10 MG RECTAL SUPPOS* 1 Suppository by RECTAL route* MELATONIN 3 MG TABLET Take 2 tablets by mouth daily* ASPIRIN 81 MG CHEWABLE TABLET Take 1 tablet by mouth once d* SODIUM CHLORIDE 0.9 % INJECTI* Inject 10 mL intravenously ev* SODIUM CHLORIDE 0.9 % INJECTI* Inject 20 mL intravenously as* THIAMINE HCL (VITAMIN B1) 100* Take 1 tablet by mouth once d* Progress Notes: Nadeem Steele, OTR/L, OTR/L 08/04/2018 3:14 PM Addendum Episode Visit Count: 13 Therapist That Will Oversee The Plan Of Care: Vinnie Steele Start of Care Date: 06/09/18 Onset Date: 02/07/18 Plan of Care Certification Date: 07/25/18 Patient Identified by Name and Date of : Yes REHABILITATION AND SPORTS THERAPY OCCUPATIONAL THERAPY TREATMENT NOTE ASSESSMENT: Jeffrey Cullen Jr. demonstrated difficulty with bilateral shoulder weakness and limited ROM in bilateral shoulders.. The patient will continue to benefit from continued skilled occupational therapy for soft tissue mobilization, joint mobilization, pain reduction and improving ROM. PLAN FOR NEXT VISIT: SUBJECTIVE: OT treatment My fingers feel really good. Tingling in only in the finger tips on the left but further up the hand on the right. Pain Score: 0/10 OBJECTIVE MEASURES WITH LEVEL OF FUNCTION: Completed deep tissue mobilization, joint mobilization and pain control techniques. Improved discomfort with movement. Continues to have impaired body mechanics which are impeding ability to improve ROM in bilateral shoulders. TREATMENT: Therapeutic Exercise: 1: 3# external rotation in seated. Emphasis on scapular retraction. Skilled Intervention: Patient was educated in proper exercise technique and purpose for exercises. Skilled judgment was provided in selection of appropriate interventions. Manual Therapy: 1: AP mobilization to bilateral shoulders 2: Deep tissue mobilization with prolonged pressure to bilateral bicep tendons and bilateral deltoid insertions 3: IDN to bilateral lateral shoulders. 3 triggerpoints on the right shoulder and 4 trigger points on the left shoulder. Skilled Intervention: Manual skills to improve joint mobility, ROM, and decrease pain. Utilized anatomy knowledge of the therapist, and assessment of patient's response to intervention. Billing: [place]: Therapeutic Exercise (06099): 1:1 time: 6 minutes (no charge) Manual therapy ([id number]): 1:1 time: 49 minutes (4 units: 53- 67 mins) absorbed therex minutes Total time: 55 minutes HEATHER Diallo/Fara Previous Version CNTHERAPY Observed: 08/01/2018 Status: COMPLETED Source: [place] 7:45 AM [facility] REPOSITORY OT/PT/Speech Visit (LDPT) JEFFREY CULLEN JR. ([id number]) 1950 M [facility] Date Time Provider Department 08/01/18 7:45 AM BEATA ALFARO ([employer]) LDPT Date Time Provider Department Center 08/01/2018 7:45 AM [id number], PATRICK *LDPT [address] Reason for Visit: Physical Therapy [503] Primary Visit Diagnosis:Weakness [R53.1] Other Visit Diagnosis:SDH (subdural hematoma) ([facility]) [S06.5X9A] Allergies As of Date: 08/01/2018 Noted Allergy Reaction BEE STING 04/22/2018 16 - Unknown Date Reviewed: 07/04/2018 Reviewed by: Stephani (Ot) SUMMER Shah - Fully Assessed Prescriptions as of 08/01/2018 Sig: APIXABAN 5 MG TABLET Take 1 tablet by mouth twice * ACETAMINOPHEN 325 MG TABLET Take 2 tablets by mouth every* LEVETIRACETAM 500 MG TABLET Take 1 tablet by mouth twice * AMIODARONE 100 MG TABLET Take 200 mg by mouth once katerina* FAMOTIDINE 10 MG TABLET Take 20 mg by mouth twice katerina* LISINOPRIL 2.5 MG TABLET Take 2.5 mg by mouth once katerina* NADOLOL 20 MG TABLET Take 40 mg by mouth once janet* VALPROIC ACID ( SODIUM SALT* Take 10 mL by mouth every 8 h* ONDANSETRON HCL (PF) 4 MG/2 M* Inject 4 mg intravenously federica* ATORVASTATIN 40 MG TABLET Take 1 tablet by mouth daily * HALOPERIDOL 2 MG/ML ORAL CONC* Take 2.5 mL by mouth every 6 * ALBUTEROL SULFATE 2.5 MG/3 ML* Use 3 mL via nebulizer every * IPRATROPIUM-ALBUTEROL 0.5 MG-* Inhale 3 mL as instructed fou* METOPROLOL TARTRATE 100 MG TA* Take 1 tablet by mouth every * DILTIAZEM 60 MG TABLET 1 tablet by NASOGASTRIC route* PROPOFOL 10 MG/ML INTRAVENOUS* Inject 1.091-5.455 mg/min int* BUDESONIDE 0.5 MG/2 ML SUSPEN* Use 4 mL via nebulizer twice * METOCLOPRAMIDE 5 MG/ML INJECT* Inject 10 mg intravenously ev* POLYETHYLENE GLYCOL 3350 17 G* Take 1 Packet by mouth once d* SENNOSIDES 8.6 MG-DOCUSATE SO* Take 1 tablet by mouth twice * BISACODYL 10 MG RECTAL SUPPOS* 1 Suppository by RECTAL route* MELATONIN 3 MG TABLET Take 2 tablets by mouth daily* ASPIRIN 81 MG CHEWABLE TABLET Take 1 tablet by mouth once d* SODIUM CHLORIDE 0.9 % INJECTI* Inject 10 mL intravenously ev* SODIUM CHLORIDE 0.9 % INJECTI* Inject 20 mL intravenously as* THIAMINE HCL (VITAMIN B1) 100* Take 1 tablet by mouth once d* Progress Notes: Beata Alfaro, [employer], PT ASSIST 08/01/2018 9:59 AM Signed Episode Visit Count: 13 Therapist That Will Oversee The Plan Of Care: Reji Veliz Start of Care Date: 06/09/18 Onset Date: 02/06/18 Plan of Care Certification Date: 06/09/18 Patient Identified by Name and Date of : Yes REHABILITATION AND SPORTS THERAPY PHYSICAL THERAPY TREATMENT NOTE ASSESSMENT: Jeffrey Cullen Jr. demonstrated difficulty with maintaining neutral posture with gait and standing exercises. The patient will continue to benefit from continued skilled physical therapy for core stability and postural awareness. PLAN FOR NEXT VISIT: continue to strengthen core, with neutral posture to decrease instince of back with activity SUBJECTIVE: pt took tramadol at 7 this am reports no shoulder or back pain Pt had 10/10 pain in back this weekend driving to and from [place] and also noted le weakness and tightness Pain Score: 0/10 Pain Location: Back;Shoulder - Right;Shoulder - Left Frequency: Intermittent Post Treatment Pain Score: 8/10 Pain Location: Back (with activitiy) Post Treatment Pain Description: Sore OBJECTIVE MEASURES WITH LEVEL OF FUNCTION: Pt with progressively more forward bent posture with gait TREATMENT: Therapeutic Exercise: 1: nu step seat11 le only level 7 8min 30 steps per minute 2: seated lateral pull with chest press mckeon tb 10 x2 rll 3: seated low trap and mid trap rows blue 10 x 2 each 4: quadraped fire hydrants right 5 x left 10 x Pt unable to stabilize left hip with right leg raise 5: standing mid and low trap rows blue tb 10 x 2 each 6: standing fire hydrants 10 x r/l Skilled Intervention: Patient was educated in proper exercise technique and purpose for exercises. Skilled judgment was provided in selection of appropriate interventions. Gait Trainin: gait on level ground in [address] 6 min 3 standing rests 2: Advised pt to stand tall or perform standing back bends to neutral to alleviate symptoms Skilled Intervention: Postural cues with gait Johning: Carm[place]: Therapeutic Exercise (23045): 1:1 time: 45 minutes (3 units: 38-52 mins) Gait Training (22690): 1:1 time: 6 minutes (no charge) Total time: 51 minutes Beata Alfaro PTA PROGRESS Observed: 07/28/2018 Status: COMPLETED Source: [place] 10:00 AM [facility] REPOSITORY [facility] ID: [id number] Author: Reji (Pt) Jose Alfredo Service: (none) Author Type: Physical Therapist Type: Progress Notes Filed: 07/28/2018 10:03 AM Note Text: Episode Visit Count: 12 Therapist That Will Oversee The Plan Of Care: Reji Veliz Start of Care Date: 06/09/18 Onset Date: 02/06/18 Plan of Care Certification Date: 06/09/18 Patient Identified by Name and Date of : Yes REHABILITATION AND SPORTS THERAPY PHYSICAL THERAPY TREATMENT NOTE ASSESSMENT: Jeffrey Fara Cullen Jr. demonstrated difficulty with pain complaints and improvements in functional, dynamic stabilization. The patient will continue to benefit from continued skilled physical therapy for functional stabilization activities to improve ADL tolerance and safety PLAN FOR NEXT VISIT: progress endurance as tolerated be aware af neutral standing posture to minimize back pain also be aware of bilateral shoulder pain left worse than right SUBJECTIVE: Feels like his back is about to go back out Pain Score: 6/10 Pain Location: Back (shoulders hurt with use) Post Treatment Pain Score: 6/10 OBJECTIVE MEASURES WITH LEVEL OF FUNCTION: Increased trunk flexion throughout session today. TREATMENT: Therapeutic Exercise: 1: nu step seat11 le only level 7 8min 2: Discussion RE: reaching, body mechanics to minimize stress on the shoulders and LB. Stressed using LEs to move closer towards object with less reliance on reaching which exacerbates shoulder and LB pain 6: *Quadriped Fire hydrants: 2x10 Skilled Intervention: Patient was educated in proper exercise technique and purpose for exercises. Reviewed and educated patient on additions/changes for home exercise program as above (*) Skilled judgment was provided in selection of appropriate interventions. Patient education as noted. Therapeutic Activity: 1: *Repetitve Pull downs: héctor ORTIZ, 3x30 2: *Lateral Resistance Chest Press: héctor TB, 3x15B Skilled Intervention: Educated on proper/safe technique for activities performed today. Activity progression based on professional judgment. Billing: [place]: Therapeutic Exercise (16005): 1:1 time: 30 minutes (2 units: 23-37 mins) Therapeutic Activity (07182): 1:1 time: 10 minutes (1 unit: 8-22 mins) Total time: 45 minutes Reji Veliz PT CNTHERAPY Observed: 07/28/2018 Status: COMPLETED Source: [place] 7:45 AM [facility] REPOSITORY OT/PT/Speech Visit (LDPT) JEFFREY CULLEN JR. ([id number]) 1950 M [facility] Date Time Provider Department 07/28/18 7:45 AM REJI VELIZ (PT) LDPT Date Time Provider Department Center 07/28/2018 7:45 AM [id number], STEPHEN (P*LDPT [address] Reason for Visit: Physical Therapy [503] Primary Visit Diagnosis:Weakness [R53.1] Other Visit Diagnosis:SDH (subdural hematoma) ([facility]) [S06.5X9A] Allergies As of Date: 07/28/2018 Noted Allergy Reaction BEE STING 04/22/2018 16 - Unknown Date Reviewed: 07/04/2018 Reviewed by: Stephani MoodyOtKristin Shah OT - Fully Assessed Prescriptions as of 07/28/2018 Sig: APIXABAN 5 MG TABLET Take 1 tablet by mouth twice * ACETAMINOPHEN 325 MG TABLET Take 2 tablets by mouth every* LEVETIRACETAM 500 MG TABLET Take 1 tablet by mouth twice * AMIODARONE 100 MG TABLET Take 200 mg by mouth once katerina* FAMOTIDINE 10 MG TABLET Take 20 mg by mouth twice katerina* LISINOPRIL 2.5 MG TABLET Take 2.5 mg by mouth once katerina* NADOLOL 20 MG TABLET Take 40 mg by mouth once janet* VALPROIC ACID ( SODIUM SALT* Take 10 mL by mouth every 8 h* ONDANSETRON HCL (PF) 4 MG/2 M* Inject 4 mg intravenously federica* ATORVASTATIN 40 MG TABLET Take 1 tablet by mouth daily * HALOPERIDOL 2 MG/ML ORAL CONC* Take 2.5 mL by mouth every 6 * ALBUTEROL SULFATE 2.5 MG/3 ML* Use 3 mL via nebulizer every * IPRATROPIUM-ALBUTEROL 0.5 MG-* Inhale 3 mL as instructed fou* METOPROLOL TARTRATE 100 MG TA* Take 1 tablet by mouth every * DILTIAZEM 60 MG TABLET 1 tablet by NASOGASTRIC route* PROPOFOL 10 MG/ML INTRAVENOUS* Inject 1.091-5.455 mg/min int* BUDESONIDE 0.5 MG/2 ML SUSPEN* Use 4 mL via nebulizer twice * METOCLOPRAMIDE 5 MG/ML INJECT* Inject 10 mg intravenously ev* POLYETHYLENE GLYCOL 3350 17 G* Take 1 Packet by mouth once d* SENNOSIDES 8.6 MG-DOCUSATE SO* Take 1 tablet by mouth twice * BISACODYL 10 MG RECTAL SUPPOS* 1 Suppository by RECTAL route* MELATONIN 3 MG TABLET Take 2 tablets by mouth daily* ASPIRIN 81 MG CHEWABLE TABLET Take 1 tablet by mouth once d* SODIUM CHLORIDE 0.9 % INJECTI* Inject 10 mL intravenously ev* SODIUM CHLORIDE 0.9 % INJECTI* Inject 20 mL intravenously as* THIAMINE HCL (VITAMIN B1) 100* Take 1 tablet by mouth once d* Progress Notes: Reji Veliz, PT 07/28/2018 10:03 AM Signed Episode Visit Count: 12 Therapist That Will Oversee The Plan Of Care: Reji Veliz Start of Care Date: 06/09/18 Onset Date: 02/06/18 Plan of Care Certification Date: 06/09/18 Patient Identified by Name and Date of : Yes REHABILITATION AND SPORTS THERAPY PHYSICAL THERAPY TREATMENT NOTE ASSESSMENT: Jeffrey Cullen Jr. demonstrated difficulty with pain complaints and improvements in functional, dynamic stabilization. The patient will continue to benefit from continued skilled physical therapy for functional stabilization activities to improve ADL tolerance and safety PLAN FOR NEXT VISIT: progress endurance as tolerated be aware af neutral standing posture to minimize back pain also be aware of bilateral shoulder pain left worse than right SUBJECTIVE: Feels like his back is about to go back out Pain Score: 6/10 Pain Location: Back (shoulders hurt with use) Post Treatment Pain Score: 6/10 OBJECTIVE MEASURES WITH LEVEL OF FUNCTION: Increased trunk flexion throughout session today. TREATMENT: Therapeutic Exercise: 1: nu step seat11 le only level 7 8min 2: Discussion RE: reaching, body mechanics to minimize stress on the shoulders and LB. Stressed using LEs to move closer towards object with less reliance on reaching which exacerbates shoulder and LB pain 6: *Quadriped Fire hydrants: 2x10 Skilled Intervention: Patient was educated in proper exercise technique and purpose for exercises. Reviewed and educated patient on additions/changes for home exercise program as above (*) Skilled judgment was provided in selection of appropriate interventions. Patient education as noted. Therapeutic Activity: 1: *Repetitve Pull downs: héctor TB, 3x30 2: *Lateral Resistance Chest Press: blue TB, 3x15B Skilled Intervention: Educated on proper/safe technique for activities performed today. Activity progression based on professional judgment. Billing: [place]: Therapeutic Exercise (24945): 1:1 time: 30 minutes (2 units: 23-37 mins) Therapeutic Activity (71166): 1:1 time: 10 minutes (1 unit: 8-22 mins) Total time: 45 minutes Reji Veliz PT INTERNAL MEDICINE Observed: 07/26/2018 Status: F Source: [place] OFFICE VISIT 11:36 AM [facility] [address] [place] [address] [address] [place] [address] OFFICE VISIT Date of Service: 07/26/18 MR#: [id number] Acct: [id number] Name: JEFFREY CULLEN Rep #: [id number] : 1950 Provider: Richie De La Torre DO Age/Sex: 68/M Location: [facility] Status: Signed Intake Vital Signs07/26/18 Height 5 ft 10 in 07/26/18 Weight: 202 lb 07/26/18 Body Mass Index (BMI) 29.0 07/26/18 Blood Pressure 128/77 07/26/18 Blood Pressure Location Lt brachial Intake Visit Reasons: 6 wk fu Chief Complaint: follow-up CABG Is patient in pain?: No Allergies No Known Allergies Allergy (Unverified 06/07/18 09:14) Medications atorvastatin 40 mg tablet 40 mg PO QDAY #90 tab 06/07/18 [Rx Confirmed 07/26/18] famotidine 20 mg tablet 20 mg PO QDAY #30 tab 06/07/18 [Rx Confirmed 07/26/18] lisinopril 20 mg tablet 20 mg PO QDAY #90 tab 06/07/18 [Rx Confirmed 07/26/18] nadolol 40 mg tablet 40 mg PO QDAY #30 tab 06/07/18 [Rx Confirmed 07/26/18] sennosides 8.6 mg-docusate sodium 50 mg tablet 1 tab PO QDAY PRN #60 tab 06/07/18 [Rx Confirmed 07/26/18] sertraline 100 mg tablet 100 mg PO QDAY #90 tab 06/07/18 [Rx Confirmed 07/26/18] valproic acid 250 mg capsule 250 mg PO TID #90 cap 06/07/18 [Rx Confirmed 07/26/18] diltiazem CD 180 mg capsule,extended release 24 hr 180 mg PO QDAY #30 cap 07/26/18 [Rx Confirmed 07/26/18] tramadol 50 mg tablet 50 mg PO Q6H #60 tab 07/26/18 [Rx Confirmed 07/26/18] PFSH Medical History Traumatic subarachnoid hemorrhage with loss of consciousness (Acute) Encephalopathy (Chronic) Osteoarthritis (Chronic) Insomnia (Acute) COPD (chronic obstructive pulmonary disease) (Chronic) Atherosclerotic heart disease (Chronic) Depression (Chronic) Hyperlipemia (Chronic) Hypertension (Chronic) Surgical History History of coronary artery bypass graft (Acute) History of right knee joint replacement (Acute) Family History Mother Hypertension Colon cancer Father Hypertension Social History Smoking Status: Former smoker how long ago did patient quit smokin alcohol intake: never what type of physical activity do you participate in: none HPI HPI Chief Complaint: follow-up CABG Details: JEFFREY CULLEN, is a 68 M who presents to the office today for a follow-up checkup. He mainly complains of being extremely weak. He says he has been going to occupational and physical therapy at [facility] I have no record of this. Certainly he has not been going to cardiac rehab. ROS Const Constitutional: No weight change, body ache, chills, fatigue, sleep problems, fever(s), change in appetite, snoring, weakness, frequent falls, headache(s) or excessive sweating Eyes Eyes: No change in vision, eye pain, light sensitivity or blurry vision ENT ENT: No headache(s), abnormal hearing, ear pain, tinnitus, nasal congestion, sore throat or neck pain Resp Respiratory: No snoring, cough, shortness of breath or wheezing Cardio Cardiology: No excessive sweating, chest pain at rest, chest pain with exertion, shortness of breath, dyspnea on exertion, palpitations, orthopnea or lightheadedness Gastro GI: No abdominal pain, change in bowel habits, constipation, diarrhea, vomiting, nausea/dyspepsia or cramping Genitourinary Male: No painful urination, urinary incontinence, urinary frequency, urinary urgency, blood in urine, testicle pain or other Musc Musculoskeletal: Positive for other (shoulder pain ) and muscle weakness; no neck pain, abnormal walking, joint pain, back pain, limited range of motion, numbness or tingling Skin Skin: No redness, dry skin, itching, lesions, wounds or rash Neuro Neurology: No weakness, frequent falls, headache(s), abnormal hearing, abnormal walking, numbness, tingling, abnormal speech, dizziness or memory loss Psych Psychiatric: No change in appetite, No memory loss, No anxiety, No depression, No Thoughts of harming yourself/Others Endo Endocrine: No fatigue, excessive sweating, cold intolerance, increased thirst/drinking, heat intolerance, flushing or increased hunger Aller/Imm Allergy/Immunologic: No wheezing, itchy eyes, hives or seasonal allergy symptoms Lukasz/Lymp Hematologic/Lymphatic: No easy bleeding, easy bruising or enlarged lymph nodes Exam Const General: cooperative Nutritional Appearance: average body habitus Orientation: oriented x3 Chest Chest palpation AND inspection: normal inspection of the chest Resp Effort AND Inspection: normal respiratory effort Auscultation: Bilateral: Clear to Auscultation Cardio Rate: regular rate Rhythm: regular rhythm Musc Musculoskeletal: Yes muscle weakness Skin General: no rashes or lesions noted Neuro Cranial Nerves: CN's II-XI intact bilaterally Psych Appearance: grossly normal Mental Status: mental status grossly normal Assessment AND Plan Problems 1. Atherosclerotic heart disease I25.10 2. Encephalopathy G93.40 3. Traumatic subarachnoid hemorrhage with loss of consciousness S06.6X9A 4. Osteoarthritis M19.90 5. Insomnia G47.00 6. Depression F32.9 Plan This patient was seen on a follow-up visit after I had seen him for a first visit following a coronary artery bypass graft after which he was hospitalized for a prolonged period of time because of mental status. He was then sent to a group home where he fell had a subarachnoid hemorrhage and was also obtunded for long period of time. That the greatest problem I see with this patient is that he has not seen a engraver hand [employer] on follow- up and he does not want to see a engraver [employer] outside of [place]. So I made a referral to the [place] [facility] anticipating that they will start him on cardiac rehab which is what he needs as he has been going to [facility] but apparently only getting occupational rehab. I did discuss with him that he should not be on NSAIDs and put him on tramadol short-term for the shoulder pain as he has to be at least a year postop before orthopedic surgery is going to tackle any operative repair on his shoulders. Orders Referrals: Medications New: Coding Level of Care Code Off vis,est,level 3 Diagnoses Atherosclerotic heart disease I25.10 Encephalopathy G93.40 Traumatic subarachnoid hemorrhage with loss of consciousness S06.6X9A Osteoarthritis M19.90 Insomnia G47.00 Depression F32.9 07/26/18 1136 <Electronically signed by Richie De La Torre DO> Date Richie De La Torre DO Cosigner Signature: Date (if applicable) CC: PROGRESS Observed: 07/25/2018 Status: COMPLETED Source: [place] 9:32 AM [facility] [place] REPOSITORY O ID: [id number] Author: Nadeem (Ot) XU Steele Service: (none) Author Type: Occupational Therapist Type: Progress Notes Filed: 07/25/2018 9:45 AM Note Text: Episode Visit Count: 12 Therapist That Will Oversee The Plan Of Care: Vinnie Steele Start of Care Date: 06/09/18 Onset Date: 02/07/18 Plan of Care Certification Date: 07/25/18 Patient Identified by Name and Date of : Yes REHABILITATION AND SPORTS THERAPY OCCUPATIONAL THERAPY PROGRESS REPORT PLAN OF CARE UPDATE: Assessment: Jeffrey Cullen Jr. exhibits difficulty with mild stiffness in fingers, slight decrease in ROM in the fingers limiting grasp abilities, pain in B shoulders limited ROM in bilateral shoulders limiting return to leisure interests . He continues to be limited with lifting, physical activities, recreational activities, reaching behind back, reaching overhead, cleaning, cooking, gripping, pinching, twisting and carrying. He is progressing as expected towards his therapy goals as demonstrated by: documented subjective information on progress, documented objective information regarding ADL's, strength, range of motion and overall function and appointment compliance. He will benefit from continued skilled therapy requiring Occupational Therapy in order to further improve hand strength, reduction in pain of bilateral shoulders, increased ROM to bilateral shoulders in order to allow for improved AD and return to leisure. Functional gains: Improved quality of movement Increased endurance / activity tolerance Increased ROM Increased strength Goals for Episode of Care created on 06/09/18 through 09/01/18 Assessed 07/25/18 Patient will complete HEP at [place] level. - progressing Patient will increase active ROM of bilateral hands and shoulders to WFL to allow patient to improved performance of ADLs. 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 - ongoing Patient will report a good understanding of edema control techniques - ongoing Patient will improve his/her AM-PAC T-scale score by 4 points to indicate a Minimal Clinical Important Difference - progressing Patient to increase ADL and IADL tasks to at least Modified Independent for previously completed tasks - partially met - met ADL, not IADL G CODE REPORTING Based on clinical assessment and the score on the AM-PAC Scale Score Assessment Tool, the G code and corresponding severity modifiers are documented below. Evaluation: 06/09/2018 Current Status: Self-Care: G8987 CL 60-79% impaired Goal Status: Self-Care: G8988 CK 40-59% impaired Progress Report: 07/11/2018 Current Status: Self-Care: G8987 CK 40-59% impaired Goal Status: Self-Care: G8988 CJ 20-39% impaired Planned Interventions, Frequency, and Duration: 1x/week, 8 weeks Total Number of Visits Planned: 8 Patient to be seen for Therapeutic exercise;Therapeutic activities;Manual therapy;Self-usp management;Modalities;Patient/Family/Caregiver EducationUltrasound;E-Stim Attended Prognosis: Fair Fair due to: multiple co- morbidities;chronic nature of impairments PLAN FOR NEXT VISIT: addition of shoulder strengthening exercises within pain reduced range of motion SUBJECTIVE: OT recertification I raced this weekend but had difficulty hold the [employer] Pain Score: 6/10 Pain Location: Shoulder - Left;Shoulder - Right Description: Sharp Frequency: Intermittent (INcreases with movement) Post Treatment Pain Score: 5/10 Pain Location: Shoulder - Left;Shoulder - Right Post Treatment Pain Description: Aching OBJECTIVE MEASURES WITH LEVEL OF FUNCTION: Hand Evaluation R Combustion Analyst Position 2 (lbs): 32 lbs L Combustion Analyst Position 2 (lbs): 26 lbs R Lateral Pinch (lbs): 9 lbs L Lateral Pinch (lbs): 10 lbs UE AROM R Shoulder Flex: 104 Degrees R Shoulder ABduction: 123 Degrees L Shoulder Flex: 120 Degrees L Shoulder ABduction: 95 Degrees UE and Cervical Strength R Shoulder Flexion: 2/5 R Shoulder Abduction (C5): 2/5 R Shoulder Internal Rotation: 3-/5 R Shoulder External Rotation: 3-/5 L Shoulder Flexion: 2+/5 L Shoulder Abduction (C5): 2-/5 L Shoulder Internal Rotation: 3-/5 L Shoulder External Rotation: 3-/5 TREATMENT: Therapeutic Exercise: 1: orange tband external rotation Skilled Intervention: Patient was educated in proper exercise technique and purpose for exercises. Reviewed and educated patient on additions/changes for home exercise program as above (*) Skilled judgment was provided in selection of appropriate interventions. Provided written instruction for home exercise program to facilitate proper performance and compliance. Therapeutic Activity: 1: assessed status compared to goals. Readjusted goals to focus more on shoulders Skilled Intervention: Activity progression based on professional judgment. Billing: [place]: Therapeutic Exercise (97411): 1:1 time: 5 minutes (no charge) Therapeutic Functional Activity (82650): 1:1 time:40 minutes (3 units: 38-52 mins) Total time: 45 minutes HEATHER Diallo/Fara CNTHERAPY Observed: 07/25/2018 Status: COMPLETED Source: [place] 8:15 AM [facility] REPOSITORY OT/PT/Speech Visit (LTOT) JEFFREY CULLEN JR. ([id number]) 1950 M [facility] Date Time Provider Department 07/25/18 8:15 AM NADEEM STEELE (OT) LTOT Date Time Provider Department [place] 07/25/2018 8:15 AM [id number], TIMOTHY *LTOT AG [address] Reason for Visit: OT Progress Note [4255] Primary Visit Diagnosis:Decreased range of motion of left shoulder [M25.612] Other Visit Diagnoses:Stiffness of right hand joint [M25.641] Stiffness of left hand joint [M25.642] Decreased range of motion of right shoulder [M25.611] Decreased activities of daily living (ADL) [R68.89] Allergies As of Date: 07/25/2018 Noted Allergy Reaction BEE STING 04/22/2018 16 - Unknown Date Reviewed: 07/04/2018 Reviewed by: Stephani (Ot) SUMMER Shah - Fully Assessed Prescriptions as of 07/25/2018 Sig: APIXABAN 5 MG TABLET Take 1 tablet by mouth twice * ACETAMINOPHEN 325 MG TABLET Take 2 tablets by mouth every* LEVETIRACETAM 500 MG TABLET Take 1 tablet by mouth twice * AMIODARONE 100 MG TABLET Take 200 mg by mouth once katerina* FAMOTIDINE 10 MG TABLET Take 20 mg by mouth twice katerina* LISINOPRIL 2.5 MG TABLET Take 2.5 mg by mouth once katerina* NADOLOL 20 MG TABLET Take 40 mg by mouth once janet* VALPROIC ACID ( SODIUM SALT* Take 10 mL by mouth every 8 h* ONDANSETRON HCL (PF) 4 MG/2 M* Inject 4 mg intravenously federica* ATORVASTATIN 40 MG TABLET Take 1 tablet by mouth daily * HALOPERIDOL 2 MG/ML ORAL CONC* Take 2.5 mL by mouth every 6 * ALBUTEROL SULFATE 2.5 MG/3 ML* Use 3 mL via nebulizer every * IPRATROPIUM-ALBUTEROL 0.5 MG-* Inhale 3 mL as instructed fou* METOPROLOL TARTRATE 100 MG TA* Take 1 tablet by mouth every * DILTIAZEM 60 MG TABLET 1 tablet by NASOGASTRIC route* PROPOFOL 10 MG/ML INTRAVENOUS* Inject 1.091-5.455 mg/min int* BUDESONIDE 0.5 MG/2 ML SUSPEN* Use 4 mL via nebulizer twice * METOCLOPRAMIDE 5 MG/ML INJECT* Inject 10 mg intravenously ev* POLYETHYLENE GLYCOL 3350 17 G* Take 1 Packet by mouth once d* SENNOSIDES 8.6 MG-DOCUSATE SO* Take 1 tablet by mouth twice * BISACODYL 10 MG RECTAL SUPPOS* 1 Suppository by RECTAL route* MELATONIN 3 MG TABLET Take 2 tablets by mouth daily* ASPIRIN 81 MG CHEWABLE TABLET Take 1 tablet by mouth once d* SODIUM CHLORIDE 0.9 % INJECTI* Inject 10 mL intravenously ev* SODIUM CHLORIDE 0.9 % INJECTI* Inject 20 mL intravenously as* THIAMINE HCL (VITAMIN B1) 100* Take 1 tablet by mouth once d* Progress Notes: Nadeem Steele, OTR/L, OTR/L 07/25/2018 9:45 AM Signed Episode Visit Count: 12 Therapist That Will Oversee The Plan Of Care: Vinnie Steele Start of Care Date: 06/09/18 Onset Date: 02/07/18 Plan of Care Certification Date: 07/25/18 Patient Identified by Name and Date of : Yes REHABILITATION AND SPORTS THERAPY OCCUPATIONAL THERAPY PROGRESS REPORT PLAN OF CARE UPDATE: Assessment: Jeffrey Cullen Jr. exhibits difficulty with mild stiffness in fingers, slight decrease in ROM in the fingers limiting grasp abilities, pain in B shoulders limited ROM in bilateral shoulders limiting return to leisure interests . He continues to be limited with lifting, physical activities, recreational activities, reaching behind back, reaching overhead, cleaning, cooking, gripping, pinching, twisting and carrying. He is progressing as expected towards his therapy goals as demonstrated by: documented subjective information on progress, documented objective information regarding ADL's, strength, range of motion and overall function and appointment compliance. He will benefit from continued skilled therapy requiring Occupational Therapy in order to further improve hand strength, reduction in pain of bilateral shoulders, increased ROM to bilateral shoulders in order to allow for improved AD and return to leisure. Functional gains: Improved quality of movement Increased endurance / activity tolerance Increased ROM Increased strength Goals for Episode of Care created on 06/09/18 through 09/01/18 Assessed 07/25/18 Patient will complete HEP at [place] level. - progressing Patient will increase active ROM of bilateral hands and shoulders to WFL to allow patient to improved performance of ADLs. 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 - ongoing Patient will report a good understanding of edema control techniques - ongoing Patient will improve his/her AM-PAC T-scale score by 4 points to indicate a Minimal Clinical Important Difference - progressing Patient to increase ADL and IADL tasks to at least Modified Independent for previously completed tasks - partially met - met ADL, not IADL G CODE REPORTING Based on clinical assessment and the score on the AM-PAC Scale Score Assessment Tool, the G code and corresponding severity modifiers are documented below. Evaluation: 06/09/2018 Current Status: Self-Care: G8987 CL 60-79% impaired Goal Status: Self-Care: G8988 CK 40-59% impaired Progress Report: 07/11/2018 Current Status: Self-Care: G8987 CK 40-59% impaired Goal Status: Self-Care: G8988 CJ 20-39% impaired Planned Interventions, Frequency, and Duration: 1x/week, 8 weeks Total Number of Visits Planned: 8 Patient to be seen for Therapeutic exercise;Therapeutic activities;Manual therapy;Self-usp management;Modalities;Patient/Family/Caregiver EducationUltrasound;E-Stim Attended Prognosis: Fair Fair due to: multiple co- morbidities;chronic nature of impairments PLAN FOR NEXT VISIT: addition of shoulder strengthening exercises within pain reduced range of motion SUBJECTIVE: OT recertification I raced this weekend but had difficulty hold 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 Pain Score: 6/10 Pain Location: Shoulder - Left;Shoulder - Right Description: Sharp Frequency: Intermittent (INcreases with movement) Post Treatment Pain Score: 5/10 Pain Location: Shoulder - Left;Shoulder - Right Post Treatment Pain Description: Aching OBJECTIVE MEASURES WITH LEVEL OF FUNCTION: Hand Evaluation R Combustion Analyst Position 2 (lbs): 32 lbs L Combustion Analyst Position 2 (lbs): 26 lbs R Lateral Pinch (lbs): 9 lbs L Lateral Pinch (lbs): 10 lbs UE AROM R Shoulder Flex: 104 Degrees R Shoulder ABduction: 123 Degrees L Shoulder Flex: 120 Degrees L Shoulder ABduction: 95 Degrees UE and Cervical Strength R Shoulder Flexion: 2/5 R Shoulder Abduction (C5): 2/5 R Shoulder Internal Rotation: 3-/5 R Shoulder External Rotation: 3-/5 L Shoulder Flexion: 2+/5 L Shoulder Abduction (C5): 2-/5 L Shoulder Internal Rotation: 3-/5 L Shoulder External Rotation: 3-/5 TREATMENT: Therapeutic Exercise: 1: orange tband external rotation Skilled Intervention: Patient was educated in proper exercise technique and purpose for exercises. Reviewed and educated patient on additions/changes for home exercise program as above (*) Skilled judgment was provided in selection of appropriate interventions. Provided written instruction for home exercise program to facilitate proper performance and compliance. Therapeutic Activity: 1: assessed status compared to goals. Readjusted goals to focus more on shoulders Skilled Intervention: Activity progression based on professional judgment. Johning: [place]: Therapeutic Exercise (91814): 1:1 time: 5 minutes (no charge) Therapeutic Functional Activity (83498): 1:1 time:40 minutes (3 units: 38-52 mins) Total time: 45 minutes HEATHER Diallo/Fara Letter Text PROGRESS Observed: 07/25/2018 Status: COMPLETED Source: [place] 8:07 AM [facility] REPOSIT[facility] HNO ID: [id number] Author: Beata (Jostin) MANUEL Alfaro ASSIST Service: (none) Author Type: Switch Operator Type: Progress Notes Filed: 07/25/2018 8:13 AM Note Text: Episode Visit Count: 11 Therapist That Will Oversee The Plan Of Care: Jose Alfredo Reji Start of Care Date: 06/09/18 Onset Date: 02/06/18 Plan of Care Certification Date: 06/09/18 Patient Identified by Name and Date of : Yes REHABILITATION AND SPORTS THERAPY PHYSICAL THERAPY TREATMENT NOTE ASSESSMENT: Jeffrey Fara Cullen Jr. demonstrated difficulty with maintaining neutral lumbar posture on inclines and declines with gait outside of hospital. The patient will continue to benefit from continued skilled physical therapy for endurance, bilateral lower extremity strength, and core strength and stability to minimize back pain. PLAN FOR NEXT VISIT: progress endurance as tolerated be aware af neutral standing posture to minimize back pain also be aware of bilateral shoulder pain left worse than right SUBJECTIVE: pt unsure if standing back bends are helping pt reports no change in endurance back and shoulders hurt constantly Pain Score: 5/10 Pain Location: Back;Shoulder - Left;Shoulder - Right (shoulders 6/10 bilateral) Description: Sharp Frequency: Continuous Post Treatment Pain Score: 6/10 Pain Location: Back;Hip - Left;Hip - Right Post Treatment Pain Description: Throbbing OBJECTIVE MEASURES WITH LEVEL OF FUNCTION: Pt took 10 min to ambulate perimeter of [facility] TREATMENT: Therapeutic Exercise: 1: nu step seat11 le only level 7 10min 2: standing back bends 15 x 2 3: slant board 1 min 4: supine manual hamstring stretches 30 sec x 4 each l/r 5: hooklying clamshells blue 10 x 2 r/l Skilled Intervention: Patient was educated in proper exercise technique and purpose for exercises. Skilled judgment was provided in selection of appropriate interventions. Gait Trainin: walked outside perimeter of hospital with 3 x standing to neutral posture 10 x each 10 min of gait cues for stability into left ankle Skilled Intervention: Postural cues and cues to decrease left foot toe out. Billing: [place]: Therapeutic Exercise ([id number]): 1:1 time: 45 minutes (3 units: 38-52 mins) Gait Training ([id number]): 1:1 time: 10 minutes (1 unit: 8-22 mins) Total time: 55 minutes Beata Alfaro PTA CNTHERAPY Observed: 07/25/2018 Status: COMPLETED Source: [place] 7:00 AM [facility] REPOSITORY OT/PT/Speech Visit (LDPT) JEFFREY CULLEN JR. ([id number]) 1950 M CHT Date Time Provider Department 07/25/18 7:00 AM BEATA ALFARO (JOSTIN) LDPT Date Time Provider Department Center 07/25/2018 7:00 AM [id number], PATRICK *LDPT AG [address] Reason for Visit: Physical Therapy [503] Primary Visit Diagnosis:Weakness [R53.1] Other Visit Diagnosis:SDH (subdural hematoma) ([facility]) [S06.5X9A] Allergies As of Date: 07/25/2018 Noted Allergy Reaction BEE STING 04/22/2018 16 - Unknown Date Reviewed: 07/04/2018 Reviewed by: Stephani (Ot) SUMMER Shah - Fully Assessed Prescriptions as of 07/25/2018 Sig: APIXABAN 5 MG TABLET Take 1 tablet by mouth twice * ACETAMINOPHEN 325 MG TABLET Take 2 tablets by mouth every* LEVETIRACETAM 500 MG TABLET Take 1 tablet by mouth twice * AMIODARONE 100 MG TABLET Take 200 mg by mouth once katerina* FAMOTIDINE 10 MG TABLET Take 20 mg by mouth twice katerina* LISINOPRIL 2.5 MG TABLET Take 2.5 mg by mouth once katerina* NADOLOL 20 MG TABLET Take 40 mg by mouth once janet* VALPROIC ACID ( SODIUM SALT* Take 10 mL by mouth every 8 h* ONDANSETRON HCL (PF) 4 MG/2 M* Inject 4 mg intravenously federica* ATORVASTATIN 40 MG TABLET Take 1 tablet by mouth daily * HALOPERIDOL 2 MG/ML ORAL CONC* Take 2.5 mL by mouth every 6 * ALBUTEROL SULFATE 2.5 MG/3 ML* Use 3 mL via nebulizer every * IPRATROPIUM-ALBUTEROL 0.5 MG-* Inhale 3 mL as instructed fou* METOPROLOL TARTRATE 100 MG TA* Take 1 tablet by mouth every * DILTIAZEM 60 MG TABLET 1 tablet by NASOGASTRIC route* PROPOFOL 10 MG/ML INTRAVENOUS* Inject 1.091-5.455 mg/min int* BUDESONIDE 0.5 MG/2 ML SUSPEN* Use 4 mL via nebulizer twice * METOCLOPRAMIDE 5 MG/ML INJECT* Inject 10 mg intravenously ev* POLYETHYLENE GLYCOL 3350 17 G* Take 1 Packet by mouth once d* SENNOSIDES 8.6 MG-DOCUSATE SO* Take 1 tablet by mouth twice * BISACODYL 10 MG RECTAL SUPPOS* 1 Suppository by RECTAL route* MELATONIN 3 MG TABLET Take 2 tablets by mouth daily* ASPIRIN 81 MG CHEWABLE TABLET Take 1 tablet by mouth once d* SODIUM CHLORIDE 0.9 % INJECTI* Inject 10 mL intravenously ev* SODIUM CHLORIDE 0.9 % INJECTI* Inject 20 mL intravenously as* THIAMINE HCL (VITAMIN B1) 100* Take 1 tablet by mouth once d* Progress Notes: Beata Alfaro PTA, PT ASSIST 07/25/2018 8:13 AM Signed Episode Visit Count: 11 Therapist That Will Oversee The Plan Of Care: Reji Veliz Start of Care Date: 06/09/18 Onset Date: 02/06/18 Plan of Care Certification Date: 06/09/18 Patient Identified by Name and Date of : Yes REHABILITATION AND SPORTS THERAPY PHYSICAL THERAPY TREATMENT NOTE ASSESSMENT: Jeffrey Cullen Jr. demonstrated difficulty with maintaining neutral lumbar posture on inclines and declines with gait outside of hospital. The patient will continue to benefit from continued skilled physical therapy for endurance, bilateral lower extremity strength, and core strength and stability to minimize back pain. PLAN FOR NEXT VISIT: progress endurance as tolerated be aware af neutral standing posture to minimize back pain also be aware of bilateral shoulder pain left worse than right SUBJECTIVE: pt unsure if standing back bends are helping pt reports no change in endurance back and shoulders hurt constantly Pain Score: 5/10 Pain Location: Back;Shoulder - Left;Shoulder - Right (shoulders 6/10 bilateral) Description: Sharp Frequency: Continuous Post Treatment Pain Score: 6/10 Pain Location: Back;Hip - Left;Hip - Right Post Treatment Pain Description: Throbbing OBJECTIVE MEASURES WITH LEVEL OF FUNCTION: Pt took 10 min to ambulate [facility] TREATMENT: Therapeutic Exercise: 1: nu step seat11 le only level 7 10min 2: standing back bends 15 x 2 3: slant board 1 min 4: supine manual hamstring stretches 30 sec x 4 each l/r 5: hooklying clamshells blue 10 x 2 r/l Skilled Intervention: Patient was educated in proper exercise technique and purpose for exercises. Skilled judgment was provided in selection of appropriate interventions. Gait Trainin: walked outside [facility] with 3 x standing to neutral posture 10 x each 10 min of gait cues for stability into left ankle Skilled Intervention: Postural cues and cues to decrease left foot toe out. Billing: [place]: Therapeutic Exercise ([id number]): 1:1 time: 45 minutes (3 units: 38-52 mins) Gait Training ([id number]): 1:1 time: 10 minutes (1 unit: 8-22 mins) Total time: 55 minutes Beata Alfaro PTA PROGRESS Observed: 07/21/2018 Status: COMPLETED Source: [place] 11:56 AM [facility] REPOSITORY O ID: [id number] Author: Rufina (Pt) MANUEL Edward Service: (none) Author Type: Physical Therapist Type: Progress Notes Filed: 07/21/2018 12:03 PM Note Text: Episode Visit Count: 10 Therapist That Will Oversee The Plan Of Care: Reji Veliz Start of Care Date: 06/09/18 Onset Date: 02/06/18 Plan of Care Certification Date: 06/09/18 Patient Identified by Name and Date of : Yes REHABILITATION AND SPORTS THERAPY PHYSICAL THERAPY TREATMENT NOTE ASSESSMENT: Jeffrey Cullen Jr. demonstrated difficulty with pain and stiffness at start of session and improvements in mobility and decreased pain by end of session. Patient has been encouraged to consult PCP regarding joint and muscle pain and stiffness. The patient will continue to benefit from continued skilled physical therapy for strengthening, balance training and aerrobic conditioning. PLAN FOR NEXT VISIT: assess response to extension on thigh pain SUBJECTIVE: reports increased muscle pain in thighs, arms and shoulders and fingers Pain Score: 8/10 Pain Location: Shoulder - Left;Thigh - Left;Thigh - Right Description: Sharp;Sore Frequency: Continuous Post Treatment Pain Score: 5/10 Pain Location: Shoulder - Left;Thigh - Right;Thigh - Left Post Treatment Pain Description: Tightness OBJECTIVE MEASURES WITH LEVEL OF FUNCTION: Posture / Alignment Posture: Rounded shoulders;Elevated shoulder - right;Elevated shoulder -left;Decreased lumbar lordosis LE Observations: Major limitation in lumbar extension ROM TREATMENT: Therapeutic Exercise: 1: Nu step, seat 12 LE only, L6 10' 2: slant board 1' 3: *standing extension 5x 2 sets 4: patient education on inflamation and importance of keeping activie to minimize pain. Skilled Intervention: Patient was educated in proper exercise technique and purpose for exercises. Much encouragement throughout treatment to address pain concerns and medication concerns with PCP. Encouraged patient to maintain activity level. Gait Trainin: walking hospital grounds, 15 minutes with frequent standing breaks Skilled Intervention: Patient was provided stand by assist during pre-gait/gait training to prevent falls and insure safety. Gait belt utilized during session for safety. Billing: [place]: Therapeutic Exercise ([id number]): 1:1 time: 30 minutes (2 unit: 23-37 mins) Gait Training ([id number]): 1:1 time: 15 minutes (1 unit: 8-22 mins) Total time: 45 minutes Rufina Edward PT PROGRESS Observed: 07/21/2018 Status: COMPLETED Source: [place] 9:11 AM [facility] REPOSITORY [facility] ID: [id number] Author: XU Diallo Ot Service: (none) Author Type: Occupational Therapist Type: Progress Notes Filed: 07/21/2018 9:18 AM Note Text: Episode Visit Count: 11 Therapist That Will Oversee The Plan Of Care: Vinnie Steele Start of Care Date: 06/09/18 Onset Date: 02/07/18 Plan of Care Certification Date: 06/09/18 Patient Identified by Name and Date of : Yes REHABILITATION AND SPORTS THERAPY OCCUPATIONAL THERAPY TREATMENT NOTE ASSESSMENT: Jeffrey Cullen Jr. demonstrated difficulty with significant pain in bilateral shoulders especially with ROM. The patient will continue to benefit from continued skilled occupational therapy for soft tissue mobilization, stretching and education on body mechanics during movement. PLAN FOR NEXT VISIT: assess for recertification SUBJECTIVE: My shoulders are killing me. I couldn't get out of bed on Tuesday and I almost cancelled today. Pain Score: 9/10 Pain Location: Shoulder - Left;Shoulder - Right Description: Sharp Frequency: Continuous Post Treatment Pain Score: 9/10 Pain Location: Shoulder - Left;Shoulder - Right Post Treatment Pain Description: Aching OBJECTIVE MEASURES WITH LEVEL OF FUNCTION: Soft tissue mobilization and deep pressure to trigger point as well as IDN to shoulders loosened up the arm, but reported pain level remained the same. TREATMENT: Manual Therapy: 1: Soft tissue mobilization to bilateral shoulders to allow for improved ROM 2: IDN to left lateral shoulder and anterior shoulder at trigger points along bicep tendon and medial deltoid 3: 1st rib mobilization bilaterally, scapula appears in place 4: AP mobilization Skilled Intervention: Manual skills to improve joint mobility, ROM, and decrease pain. Utilized anatomy knowledge of the therapist, and assessment of patient's response to intervention. Billing: [place]: Manual therapy ([id number]): 1:1 time: 50 minutes (3 units: 38-52 mins) Total time: 50 minutes HEATHER Diallo/Fara CNTHERAPY Observed: 07/21/2018 Status: COMPLETED Source: [place] 9:00 AM [facility] REPOSITORY OT/PT/Speech Visit (LDPT) JEFFREY CULLEN JR. ([id number]) 1950 M T Date Time Provider Department 07/21/18 9:00 AM RUFINA EDWARD (PT) LDPT Date Time Provider Department Center 07/21/2018 9:00 AM [id number], CHRISTI *LDPT [address] Reason for Visit: Physical Therapy [503] Primary Visit Diagnosis:Weakness [R53.1] Other Visit Diagnosis:SDH (subdural hematoma) ([facility]) [S06.5X9A] Allergies As of Date: 07/21/2018 Noted Allergy Reaction BEE STING 04/22/2018 16 - Unknown Date Reviewed: 07/04/2018 Reviewed by: Stephani (Ot) SUMMER Shah - Fully Assessed Prescriptions as of 07/21/2018 Sig: APIXABAN 5 MG TABLET Take 1 tablet by mouth twice * ACETAMINOPHEN 325 MG TABLET Take 2 tablets by mouth every* LEVETIRACETAM 500 MG TABLET Take 1 tablet by mouth twice * AMIODARONE 100 MG TABLET Take 200 mg by mouth once katerina* FAMOTIDINE 10 MG TABLET Take 20 mg by mouth twice katerina* LISINOPRIL 2.5 MG TABLET Take 2.5 mg by mouth once katerina* NADOLOL 20 MG TABLET Take 40 mg by mouth once janet* VALPROIC ACID ( SODIUM SALT* Take 10 mL by mouth every 8 h* ONDANSETRON HCL (PF) 4 MG/2 M* Inject 4 mg intravenously federica* ATORVASTATIN 40 MG TABLET Take 1 tablet by mouth daily * HALOPERIDOL 2 MG/ML ORAL CONC* Take 2.5 mL by mouth every 6 * ALBUTEROL SULFATE 2.5 MG/3 ML* Use 3 mL via nebulizer every * IPRATROPIUM-ALBUTEROL 0.5 MG-* Inhale 3 mL as instructed fou* METOPROLOL TARTRATE 100 MG TA* Take 1 tablet by mouth every * DILTIAZEM 60 MG TABLET 1 tablet by NASOGASTRIC route* PROPOFOL 10 MG/ML INTRAVENOUS* Inject 1.091-5.455 mg/min int* BUDESONIDE 0.5 MG/2 ML SUSPEN* Use 4 mL via nebulizer twice * METOCLOPRAMIDE 5 MG/ML INJECT* Inject 10 mg intravenously ev* POLYETHYLENE GLYCOL 3350 17 G* Take 1 Packet by mouth once d* SENNOSIDES 8.6 MG-DOCUSATE SO* Take 1 tablet by mouth twice * BISACODYL 10 MG RECTAL SUPPOS* 1 Suppository by RECTAL route* MELATONIN 3 MG TABLET Take 2 tablets by mouth daily* ASPIRIN 81 MG CHEWABLE TABLET Take 1 tablet by mouth once d* SODIUM CHLORIDE 0.9 % INJECTI* Inject 10 mL intravenously ev* SODIUM CHLORIDE 0.9 % INJECTI* Inject 20 mL intravenously as* THIAMINE HCL (VITAMIN B1) 100* Take 1 tablet by mouth once d* Progress Notes: Rufina Edward, PT, PT 07/21/2018 12:03 PM Signed Episode Visit Count: 10 Therapist That Will Oversee The Plan Of Care: Jose Alfredo Reji Start of Care Date: 06/09/18 Onset Date: 02/06/18 Plan of Care Certification Date: 06/09/18 Patient Identified by Name and Date of : Yes REHABILITATION AND SPORTS THERAPY PHYSICAL THERAPY TREATMENT NOTE ASSESSMENT: Jeffrey Cullen demonstrated difficulty with pain and stiffness at start of session and improvements in mobility and decreased pain by end of session. Patient has been encouraged to consult PCP regarding joint and muscle pain and stiffness. The patient will continue to benefit from continued skilled physical therapy for strengthening, balance training and aerrobic conditioning. PLAN FOR NEXT VISIT: assess response to extension on thigh pain SUBJECTIVE: reports increased muscle pain in thighs, arms and shoulders and fingers Pain Score: 8/10 Pain Location: Shoulder - Left;Thigh - Left;Thigh - Right Description: Sharp;Sore Frequency: Continuous Post Treatment Pain Score: 5/10 Pain Location: Shoulder - Left;Thigh - Right;Thigh - Left Post Treatment Pain Description: Tightness OBJECTIVE MEASURES WITH LEVEL OF FUNCTION: Posture / Alignment Posture: Rounded shoulders;Elevated shoulder - right;Elevated shoulder -left;Decreased lumbar lordosis LE Observations: Major limitation in lumbar extension ROM TREATMENT: Therapeutic Exercise: 1: Nu step, seat 12 LE only, L6 10' 2: slant board 1' 3: *standing extension 5x 2 sets 4: patient education on inflamation and importance of keeping activie to minimize pain. Skilled Intervention: Patient was educated in proper exercise technique and purpose for exercises. Much encouragement throughout treatment to address pain concerns and medication concerns with PCP. Encouraged patient to maintain activity level. Gait Trainin: walking hospital grounds, 15 minutes with frequent standing breaks Skilled Intervention: Patient was provided stand by assist during pre-gait/gait training to prevent falls and insure safety. Gait belt utilized during session for safety. Billing: [place]: Therapeutic Exercise ([id number]): 1:1 time: 30 minutes (2 unit: 23-37 mins) Gait Training ([id number]): 1:1 time: 15 minutes (1 unit: 8-22 mins) Total time: 45 minutes Rufina Edward, PT CNTHERAPY Observed: 07/21/2018 Status: COMPLETED Source: [place] 8:00 AM [facility] REPOSITORY OT/PT/Speech Visit (LTOT) JEFFREY CULLEN JR. ([id number]) 1950 M [facility] Date Time Provider Department 07/21/18 8:00 AM NADEEM STEELE (OT) LTOT Date Time Provider Department Center 07/21/2018 8:00 AM [id number], TIMOTHY *LTOT [address] Reason for Visit: Occupational Therapy [504] Primary Visit Diagnosis:Weakness [R53.1] Other Visit Diagnoses:Stiffness of right hand joint [M25.641] Stiffness of left hand joint [M25.642] Decreased range of motion of right shoulder [M25.611] Decreased range of motion of left shoulder [M25.612] Decreased activities of daily living (ADL) [R68.89] Allergies As of Date: 07/21/2018 Noted Allergy Reaction BEE STING 04/22/2018 16 - Unknown Date Reviewed: 07/04/2018 Reviewed by: Stephani MoodyOtKristin Shah OT - Fully Assessed Prescriptions as of 07/21/2018 Sig: APIXABAN 5 MG TABLET Take 1 tablet by mouth twice * ACETAMINOPHEN 325 MG TABLET Take 2 tablets by mouth every* LEVETIRACETAM 500 MG TABLET Take 1 tablet by mouth twice * AMIODARONE 100 MG TABLET Take 200 mg by mouth once katerina* FAMOTIDINE 10 MG TABLET Take 20 mg by mouth twice katerina* LISINOPRIL 2.5 MG TABLET Take 2.5 mg by mouth once katerina* NADOLOL 20 MG TABLET Take 40 mg by mouth once janet* VALPROIC ACID ( SODIUM SALT* Take 10 mL by mouth every 8 h* ONDANSETRON HCL (PF) 4 MG/2 M* Inject 4 mg intravenously federica* ATORVASTATIN 40 MG TABLET Take 1 tablet by mouth daily * HALOPERIDOL 2 MG/ML ORAL CONC* Take 2.5 mL by mouth every 6 * ALBUTEROL SULFATE 2.5 MG/3 ML* Use 3 mL via nebulizer every * IPRATROPIUM-ALBUTEROL 0.5 MG-* Inhale 3 mL as instructed fou* METOPROLOL TARTRATE 100 MG TA* Take 1 tablet by mouth every * DILTIAZEM 60 MG TABLET 1 tablet by NASOGASTRIC route* PROPOFOL 10 MG/ML INTRAVENOUS* Inject 1.091-5.455 mg/min int* BUDESONIDE 0.5 MG/2 ML SUSPEN* Use 4 mL via nebulizer twice * METOCLOPRAMIDE 5 MG/ML INJECT* Inject 10 mg intravenously ev* POLYETHYLENE GLYCOL 3350 17 G* Take 1 Packet by mouth once d* SENNOSIDES 8.6 MG-DOCUSATE SO* Take 1 tablet by mouth twice * BISACODYL 10 MG RECTAL SUPPOS* 1 Suppository by RECTAL route* MELATONIN 3 MG TABLET Take 2 tablets by mouth daily* ASPIRIN 81 MG CHEWABLE TABLET Take 1 tablet by mouth once d* SODIUM CHLORIDE 0.9 % INJECTI* Inject 10 mL intravenously ev* SODIUM CHLORIDE 0.9 % INJECTI* Inject 20 mL intravenously as* THIAMINE HCL (VITAMIN B1) 100* Take 1 tablet by mouth once d* Progress Notes: Nadeem Steele, OTR/L, OTR/L 07/21/2018 9:18 AM Signed Episode Visit Count: 11 Therapist That Will Oversee The Plan Of Care: Vinnie Steele Start of Care Date: 06/09/18 Onset Date: 02/07/18 Plan of Care Certification Date: 06/09/18 Patient Identified by Name and Date of : Yes REHABILITATION AND SPORTS THERAPY OCCUPATIONAL THERAPY TREATMENT NOTE ASSESSMENT: Jeffrey Cullen Jr. demonstrated difficulty with significant pain in bilateral shoulders especially with ROM. The patient will continue to benefit from continued skilled occupational therapy for soft tissue mobilization, stretching and education on body mechanics during movement. PLAN FOR NEXT VISIT: assess for recertification SUBJECTIVE: My shoulders are killing me. I couldn't get out of bed on Tuesday and I almost cancelled today. Pain Score: 9/10 Pain Location: Shoulder - Left;Shoulder - Right Description: Sharp Frequency: Continuous Post Treatment Pain Score: 10 Pain Location: Shoulder - Left;Shoulder - Right Post Treatment Pain Description: Aching OBJECTIVE MEASURES WITH LEVEL OF FUNCTION: Soft tissue mobilization and deep pressure to trigger point as well as IDN to shoulders loosened up the arm, but reported pain level remained the same. TREATMENT: Manual Therapy: 1: Soft tissue mobilization to bilateral shoulders to allow for improved ROM 2: IDN to left lateral shoulder and anterior shoulder at trigger points along bicep tendon and medial deltoid 3: 1st rib mobilization bilaterally, scapula appears in place 4: AP mobilization Skilled Intervention: Manual skills to improve joint mobility, ROM, and decrease pain. Utilized anatomy knowledge of the therapist, and assessment of patient's response to intervention. Billing: [place]: Manual therapy ([id number]): 1:1 time: 50 minutes (3 units: 38-52 mins) Total time: 50 minutes XU Diallo PROGRESS Observed: 07/14/2018 Status: COMPLETED Source: [place] 1:29 PM [facility] REPOSITORY HNO ID: [id number] Author: XU Diallo Ot Service: (none) Author Type: Occupational Therapist Type: Progress Notes Filed: 07/14/2018 1:32 PM Note Text: Episode Visit Count: 10 Therapist That Will Oversee The Plan Of Care: Vinnie Steele Start of Care Date: 06/09/18 Onset Date: 02/07/18 Plan of Care Certification Date: 06/09/18 Patient Identified by Name and Date of : Yes REHABILITATION AND SPORTS THERAPY OCCUPATIONAL THERAPY TREATMENT NOTE ASSESSMENT: Jeffrey Cullen Jr. demonstrated difficulty with bilateral shoulder pain, bilateral hand pain and diminished ROM in shoulders and hands. The patient will continue to benefit from continued skilled occupational therapy for soft tissue mobilization for increasing ROM and reducing pain to allow for improved ADL. PLAN FOR NEXT VISIT: paraffin SUBJECTIVE: OT treatment I finally had to take an ibuprophen because my shoulders were hurting so badly. Pain Score: 6/10 Pain Location: Shoulder - Left;Shoulder - Right Description: Aching Post Treatment Pain Score: 4/10 Pain Location: Shoulder - Left OBJECTIVE MEASURES WITH LEVEL OF FUNCTION: Tolerated deep tissue and IASTM improving report of pain and stiffness with improved ROM as evidenced by improved ability to perform a composite fist. TREATMENT: Manual Therapy: 1: Soft tissue mobilization to bilateral shoulders to allow for improved ROM 2: IASTM to bilateral hands and forearms for pain relief and Skilled Intervention: Manual skills to improve joint mobility, ROM, and decrease pain. Utilized anatomy knowledge of the therapist, and assessment of patient's response to intervention. Billing: [place]: Manual therapy ([id number]): 1:1 time: 45 minutes (3 units: 38-52 mins) Total time: 45 minutes HEATHER Diallo/Fara PROGRESS Observed: 07/14/2018 Status: COMPLETED Source: [place] 11:56 AM [facility] REPOSITORY [facility] ID: [id number] Author: Rufina (Pt) MANUEL Edward Service: (none) Author Type: Physical Therapist Type: Progress Notes Filed: 07/14/2018 12:02 PM Note Text: Episode Visit Count: 9 Therapist That Will Oversee The Plan Of Care: Reji Veliz Start of Care Date: 06/09/18 Onset Date: 02/06/18 Plan of Care Certification Date: 06/09/18 Patient Identified by Name and Date of : Yes REHABILITATION AND SPORTS THERAPY PHYSICAL THERAPY TREATMENT NOTE ASSESSMENT: Jeffrey Cullen Jr. demonstrated improvements in dynamic balance and gait endurance. The patient will continue to benefit from continued skilled physical therapy for strengthening and endurance training as well as balance training. PLAN FOR NEXT VISIT: address dynamic balne, enduance and overall strength SUBJECTIVE: Walking about 12 minutes 2x per day. USing execise chair with resistance for UE and LE, 20 reps ea Pain Score: 0/10 Post Treatment Pain Score: No Change OBJECTIVE MEASURES WITH LEVEL OF FUNCTION: MiniBest Test Sit to stand: 2- Normal: Comes to stand without use of hands and stabilizes independently Rise to toes: 1- Moderate: Heels up, but not full range (smaller than when holding hands) OR noticeable instability Stand on one leg (right): 1- Moderate: <20 sec Stand on one leg (left): 1- Moderate: <20 sec Stand on one leg lowest score: 1 Compensatory steppage correction- forward: 2- Normal: Recovers independently with a single, large step Compensatory steppage correction- backward: 2- Normal: Recovers independently with a single, large step Compensatory steppage correction- lateral (right): 1- Moderate: Several steps to revover equilibrium Compensatory steppage correction- lateral (left): 1- Moderate: Several steps to revover equilibrium Compensatory steppage correction- lowest score: 1 Eyes open, firm surface, feet together: 2- Normal: 30 sec Eyes closed, foam surface, feet together: 1- Moderate: < 30 sec Incline, eyes closed: 1- Moderate: < 30 sec or aligns with surface Change in gait speed: 2- Normal: significantly changes walking speed without imbalance Walk with head turns - horizontal: 2- Normal: performs head turns with no change in gait speed and good balance Walk with pivot turn: 2- Normal: Turns with feet close FAST (less than or equal to 3 steps) with good balance Step over obstacle: 2- Normal: Able to step over box with minimal change of gait speed and with good balance TUG with dual task: 2- Normal: No noticeable change between sitting AND standing in backward counting AND no change in gait speed for TUG. MiniBest Score: 23 TREATMENT: Therapeutic Exercise: 1: Nu step seat 11 level 5 ue/le 6', LE 4', 10 min total 2: slant board 1 min 3: sit to stand without ue 18 inch 10x 3 4: standing heel raises 10x 2 Skilled Intervention: Patient was educated in proper exercise technique and purpose for exercises. Skilled judgment was provided in selection of appropriate interventions. Correct performance of therapeutic exercises was facilitated with verbal cuing. Therapeutic Activity: 1: floor to stand transfer Skilled Intervention: Education floor to stand transfer. Neuromuscular Re-Education: 1: blue foam alternate arms swings 2: blue foam standing balance head turns 3: mini best test Skilled Intervention: Skilled judgment used to assess appropriate program for balance and coordination activity. Gait Trainin: walking hospital grounds including grassy terrain 10 min SBA Skilled Intervention: Patient was provided supervision during pre-gait/gait training to prevent falls and insure safety. Mia: Carmelo: Therapeutic Exercise (96053): 1:1 time: 20 minutes (1 unit: 8-22 mins) Therapeutic Activity (42718): 1:1 time: 5 minutes (no charge) Neuromuscular Re-education (39411): 1:1 time:20 minutes (2 units: 23-37 mins) Gait Training (97514): 1:1 time: 10 minutes (1 unit: 8-22 mins) Total time: 55 minutes Rufina Edward PT CNTHERAPY Observed: 07/14/2018 Status: COMPLETED Source: [place] 10:30 AM [facility] REPOSITORY OT/PT/Speech Visit (LDPT) JEFFREY CULLEN JR. ([id number]) 1950 M CHT Date Time Provider Department 07/14/18 10:30 AM RUFINA EDWARD (PT) LDPT Date Time Provider Department [place] 07/14/2018 10:30 AM [id number], CHRISTI *LDPT [address] Reason for Visit: Physical Therapy [503] Primary Visit Diagnosis:Weakness [R53.1] Other Visit Diagnosis:SDH (subdural hematoma) ([facility]) [S06.5X9A] Allergies As of Date: 07/14/2018 Noted Allergy Reaction BEE STING 04/22/2018 16 - Unknown Date Reviewed: 07/04/2018 Reviewed by: Stephani (Ot) SUMMER Shah - Fully Assessed Prescriptions as of 07/14/2018 Sig: APIXABAN 5 MG TABLET Take 1 tablet by mouth twice * ACETAMINOPHEN 325 MG TABLET Take 2 tablets by mouth every* LEVETIRACETAM 500 MG TABLET Take 1 tablet by mouth twice * AMIODARONE 100 MG TABLET Take 200 mg by mouth once katerina* FAMOTIDINE 10 MG TABLET Take 20 mg by mouth twice katerina* LISINOPRIL 2.5 MG TABLET Take 2.5 mg by mouth once katerina* NADOLOL 20 MG TABLET Take 40 mg by mouth once janet* VALPROIC ACID ( SODIUM SALT* Take 10 mL by mouth every 8 h* ONDANSETRON HCL (PF) 4 MG/2 M* Inject 4 mg intravenously federica* ATORVASTATIN 40 MG TABLET Take 1 tablet by mouth daily * HALOPERIDOL 2 MG/ML ORAL CONC* Take 2.5 mL by mouth every 6 * ALBUTEROL SULFATE 2.5 MG/3 ML* Use 3 mL via nebulizer every * IPRATROPIUM-ALBUTEROL 0.5 MG-* Inhale 3 mL as instructed fou* METOPROLOL TARTRATE 100 MG TA* Take 1 tablet by mouth every * DILTIAZEM 60 MG TABLET 1 tablet by NASOGASTRIC route* PROPOFOL 10 MG/ML INTRAVENOUS* Inject 1.091-5.455 mg/min int* BUDESONIDE 0.5 MG/2 ML SUSPEN* Use 4 mL via nebulizer twice * METOCLOPRAMIDE 5 MG/ML INJECT* Inject 10 mg intravenously ev* POLYETHYLENE GLYCOL 3350 17 G* Take 1 Packet by mouth once d* SENNOSIDES 8.6 MG-DOCUSATE SO* Take 1 tablet by mouth twice * BISACODYL 10 MG RECTAL SUPPOS* 1 Suppository by RECTAL route* MELATONIN 3 MG TABLET Take 2 tablets by mouth daily* ASPIRIN 81 MG CHEWABLE TABLET Take 1 tablet by mouth once d* SODIUM CHLORIDE 0.9 % INJECTI* Inject 10 mL intravenously ev* SODIUM CHLORIDE 0.9 % INJECTI* Inject 20 mL intravenously as* THIAMINE HCL (VITAMIN B1) 100* Take 1 tablet by mouth once d* Progress Notes: Rufina Edward, PT, PT 07/14/2018 12:02 PM Signed Episode Visit Count: 9 Therapist That Will Oversee The Plan Of Care: Reji Veliz Start of Care Date: 06/09/18 Onset Date: 02/06/18 Plan of Care Certification Date: 06/09/18 Patient Identified by Name and Date of : Yes REHABILITATION AND SPORTS THERAPY PHYSICAL THERAPY TREATMENT NOTE ASSESSMENT: Jeffrey Cullen Jr. demonstrated improvements in dynamic balance and gait endurance. The patient will continue to benefit from continued skilled physical therapy for strengthening and endurance training as well as balance training. PLAN FOR NEXT VISIT: address dynamic balne, enduance and overall strength SUBJECTIVE: Walking about 12 minutes 2x per day. USing execise chair with resistance for UE and LE, 20 reps ea Pain Score: 0/10 Post Treatment Pain Score: No Change OBJECTIVE MEASURES WITH LEVEL OF FUNCTION: MiniBest Test Sit to stand: 2- Normal: Comes to stand without use of hands and stabilizes independently Rise to toes: 1- Moderate: Heels up, but not full range (smaller than when holding hands) OR noticeable instability Stand on one leg (right): 1- Moderate: <20 sec Stand on one leg (left): 1- Moderate: <20 sec Stand on one leg lowest score: 1 Compensatory steppage correction- forward: 2- Normal: Recovers independently with a single, large step Compensatory steppage correction- backward: 2- Normal: Recovers independently with a single, large step Compensatory steppage correction- lateral (right): 1- Moderate: Several steps to revover equilibrium Compensatory steppage correction- lateral (left): 1- Moderate: Several steps to revover equilibrium Compensatory steppage correction- lowest score: 1 Eyes open, firm surface, feet together: 2- Normal: 30 sec Eyes closed, foam surface, feet together: 1- Moderate: < 30 sec Incline, eyes closed: 1- Moderate: < 30 sec or aligns with surface Change in gait speed: 2- Normal: significantly changes walking speed without imbalance Walk with head turns - horizontal: 2- Normal: performs head turns with no change in gait speed and good balance Walk with pivot turn: 2- Normal: Turns with feet close FAST (less than or equal to 3 steps) with good balance Step over obstacle: 2- Normal: Able to step over box with minimal change of gait speed and with good balance TUG with dual task: 2- Normal: No noticeable change between sitting AND standing in backward counting AND no change in gait speed for TUG. MiniBest Score: 23 TREATMENT: Therapeutic Exercise: 1: Nu step seat 11 level 5 ue/le 6', LE 4', 10 min total 2: slant board 1 min 3: sit to stand without ue 18 inch 10x 3 4: standing heel raises 10x 2 Skilled Intervention: Patient was educated in proper exercise technique and purpose for exercises. Skilled judgment was provided in selection of appropriate interventions. Correct performance of therapeutic exercises was facilitated with verbal cuing. Therapeutic Activity: 1: floor to stand transfer Skilled Intervention: Education floor to stand transfer. Neuromuscular Re-Education: 1: blue foam alternate arms swings 2: blue foam standing balance head turns 3: mini best test Skilled Intervention: Skilled judgment used to assess appropriate program for balance and coordination activity. Gait Trainin: walking hospital grounds including grassy terrain 10 min SBA Skilled Intervention: Patient was provided supervision during pre-gait/gait training to prevent falls and insure safety. Billing: [place]: Therapeutic Exercise (42680): 1:1 time: 20 minutes (1 unit: 8-22 mins) Therapeutic Activity (77876): 1:1 time: 5 minutes (no charge) Neuromuscular Re-education (27776): 1:1 time:20 minutes (2 units: 23-37 mins) Gait Training (27257): 1:1 time: 10 minutes (1 unit: 8-22 mins) Total time: 55 minutes Rufina Edward PT CNTHERAPY Observed: 07/14/2018 Status: COMPLETED Source: [place] 9:30 AM [facility] REPOSITORY OT/PT/Speech Visit (LTOT) JEFFREY CULLEN JR. ([id number]) 1950 M [facility] Date Time Provider Department 07/14/18 9:30 AM NADEEM STEELE (OT) LTOT Date Time Provider Department Center 07/14/2018 9:30 AM [id number], TIMOTHY *LTOT [address] Reason for Visit: Occupational Therapy [504] Primary Visit Diagnosis:Decreased activities of daily living (ADL) [R68.89] Other Visit Diagnoses:Stiffness of right hand joint [M25.641] Stiffness of left hand joint [M25.642] Decreased range of motion of right shoulder [M25.611] Decreased range of motion of left shoulder [M25.612] Allergies As of Date: 07/14/2018 Noted Allergy Reaction BEE STING 04/22/2018 16 - Unknown Date Reviewed: 07/04/2018 Reviewed by: Stephani MoodyOtKristin Shah OT - Fully Assessed Prescriptions as of 07/14/2018 Sig: APIXABAN 5 MG TABLET Take 1 tablet by mouth twice * ACETAMINOPHEN 325 MG TABLET Take 2 tablets by mouth every* LEVETIRACETAM 500 MG TABLET Take 1 tablet by mouth twice * AMIODARONE 100 MG TABLET Take 200 mg by mouth once katerina* FAMOTIDINE 10 MG TABLET Take 20 mg by mouth twice katerina* LISINOPRIL 2.5 MG TABLET Take 2.5 mg by mouth once katerina* NADOLOL 20 MG TABLET Take 40 mg by mouth once janet* VALPROIC ACID ( SODIUM SALT* Take 10 mL by mouth every 8 h* ONDANSETRON HCL (PF) 4 MG/2 M* Inject 4 mg intravenously federica* ATORVASTATIN 40 MG TABLET Take 1 tablet by mouth daily * HALOPERIDOL 2 MG/ML ORAL CONC* Take 2.5 mL by mouth every 6 * ALBUTEROL SULFATE 2.5 MG/3 ML* Use 3 mL via nebulizer every * IPRATROPIUM-ALBUTEROL 0.5 MG-* Inhale 3 mL as instructed fou* METOPROLOL TARTRATE 100 MG TA* Take 1 tablet by mouth every * DILTIAZEM 60 MG TABLET 1 tablet by NASOGASTRIC route* PROPOFOL 10 MG/ML INTRAVENOUS* Inject 1.091-5.455 mg/min int* BUDESONIDE 0.5 MG/2 ML SUSPEN* Use 4 mL via nebulizer twice * METOCLOPRAMIDE 5 MG/ML INJECT* Inject 10 mg intravenously ev* POLYETHYLENE GLYCOL 3350 17 G* Take 1 Packet by mouth once d* SENNOSIDES 8.6 MG-DOCUSATE SO* Take 1 tablet by mouth twice * BISACODYL 10 MG RECTAL SUPPOS* 1 Suppository by RECTAL route* MELATONIN 3 MG TABLET Take 2 tablets by mouth daily* ASPIRIN 81 MG CHEWABLE TABLET Take 1 tablet by mouth once d* SODIUM CHLORIDE 0.9 % INJECTI* Inject 10 mL intravenously ev* SODIUM CHLORIDE 0.9 % INJECTI* Inject 20 mL intravenously as* THIAMINE HCL (VITAMIN B1) 100* Take 1 tablet by mouth once d* Progress Notes: Nadeem Steele, OTR/L, OTR/L 07/14/2018 1:32 PM Signed Episode Visit Count: 10 Therapist That Will Oversee The Plan Of Care: Vinnie Steele Start of Care Date: 06/09/18 Onset Date: 02/07/18 Plan of Care Certification Date: 06/09/18 Patient Identified by Name and Date of : Yes REHABILITATION AND SPORTS THERAPY OCCUPATIONAL THERAPY TREATMENT NOTE ASSESSMENT: Jeffrey Cullen Jr. demonstrated difficulty with bilateral shoulder pain, bilateral hand pain and diminished ROM in shoulders and hands. The patient will continue to benefit from continued skilled occupational therapy for soft tissue mobilization for increasing ROM and reducing pain to allow for improved ADL. PLAN FOR NEXT VISIT: paraffin SUBJECTIVE: OT treatment I finally had to take an ibuprophen because my shoulders were hurting so badly. Pain Score: 6/10 Pain Location: Shoulder - Left;Shoulder - Right Description: Aching Post Treatment Pain Score: 4/10 Pain Location: Shoulder - Left OBJECTIVE MEASURES WITH LEVEL OF FUNCTION: Tolerated deep tissue and IASTM improving report of pain and stiffness with improved ROM as evidenced by improved ability to perform a composite fist. TREATMENT: Manual Therapy: 1: Soft tissue mobilization to bilateral shoulders to allow for improved ROM 2: IASTM to bilateral hands and forearms for pain relief and Skilled Intervention: Manual skills to improve joint mobility, ROM, and decrease pain. Utilized anatomy knowledge of the therapist, and assessment of patient's response to intervention. Billing: [place]: Manual therapy (17930): 1:1 time: 45 minutes (3 units: 38-52 mins) Total time: 45 minutes XU Diallo PROGRESS Observed: 07/11/2018 Status: COMPLETED Source: [place] 9:33 AM [facility] REPOSITORY HNO ID: [id number] Author: XU Diallo Ot Service: (none) Author Type: Occupational Therapist Type: Progress Notes Filed: 07/11/2018 9:41 AM Note Text: Episode Visit Count: 9 Therapist That Will Oversee The Plan Of Care: Vinnie Steele Start of Care Date: 06/09/18 Onset Date: 02/07/18 Plan of Care Certification Date: 06/09/18 Patient Identified by Name and Date of : Yes REHABILITATION AND SPORTS THERAPY OCCUPATIONAL THERAPY PROGRESS REPORT PLAN OF CARE UPDATE: Assessment: Jeffrey Cullen Jr. exhibits difficulty with pain in bilateral shoulders, numbness and tingling in bilateral hands in the fingers, limited coordination, decreased ADL and IADL function, reduced strength in bilateral arms . He continues to be limited with heavy exertion, lifting, physical activities, recreational activities, reaching behind back, reaching overhead, use hand with arm at shoulder level, driving, cleaning, cooking, dressing, gripping, pinching, twisting, pulling, pushing and carrying. He is progressing as expected towards his therapy goals as demonstrated by: documented subjective information on progress, documented objective information regarding ADL's, range of motion, overall function and patient reported outcome measures and appointment compliance. He will benefit from continued skilled therapy requiring Occupational Therapy in order to further improve bilateral shoulder ROM without increased pain for improved functional abilities, increasing strength of bilateral upper extremities, educate on joint protection and compensatory strategies to allow for improved ADL function. Functional gains: Increased endurance / activity tolerance Increased independence with HEP Increased ROM Increased strength Goals for Episode of Care created on 06/09/18 through 09/01/18 Assessed 07/11/18 Patient will complete HEP at [place] level. - progressing Patient will increase active ROM of bilateral hands and shoulders to WFL to allow patient to improved performance of ADLs. 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 - ongoing Patient will report a good understanding of edema control techniques - ongoing Patient will improve his/her AM-PAC T-scale score by 4 points to indicate a Minimal Clinical Important Difference Patient to increase ADL and IADL tasks to at least Modified Independent for previously completed tasks - partially met G CODE REPORTING Based on clinical assessment and the score on the AM-PAC Scale Score Assessment Tool, the G code and corresponding severity modifiers are documented below. Evaluation: 06/09/2018 Current Status: Self-Care: G8987 CL 60-79% impaired Goal Status: Self-Care: G8988 CK 40-59% impaired Progress Report: 07/11/2018 Current Status: Self-Care: G8987 CK 40-59% impaired Goal Status: Self-Care: G8988 CJ 20-39% impaired Planned Interventions, Frequency, and Duration: 2x/week, 4 weeks Total Number of Visits Planned: 12 Patient to be seen for Therapeutic exercise;Therapeutic activities;Manual therapy;Neuromuscular re-education;Self-usp management;ModalitiesUltrasound;E-Stim Unattended PLAN FOR NEXT VISIT: review new home exercises SUBJECTIVE: OT monthly My shoulders are killing me. Pain Score: 8/10 Pain Location: Shoulder - Left;Shoulder - Right Description: Aching Frequency: Continuous OBJECTIVE MEASURES WITH LEVEL OF FUNCTION: Hand Evaluation R Combustion Analyst Position 2 (lbs): 32 lbs L Combustion Analyst Position 2 (lbs): 24 lbs R Lateral Pinch (lbs): 9 lbs L Lateral Pinch (lbs): 10 lbs Hand AROM R Index Finger MP Extension: 10 Degrees R Index Finger PIP Extension : -20 Degrees R Middle Finger PIP Extension: -15 Degrees R Ring Finger PIP Extension: -15 Degrees L Index Finger PIP Extension : -30 Degrees L Middle Finger PIP Extension: -15 Degrees L Ring Finger PIP Extension : -22 Degrees UE AROM R Shoulder Flex: 85 Degrees R Shoulder ABduction: 92 Degrees L Shoulder Flex: 80 Degrees L Shoulder ABduction: 96 Degrees UE and Cervical Strength R Shoulder Flexion: 2-/5 R Shoulder Abduction (C5): 2-/5 R Shoulder Internal Rotation: 3-/5 R Shoulder External Rotation: 3-/5 L Shoulder Flexion: 2-/5 L Shoulder Abduction (C5): 2-/5 L Shoulder Internal Rotation: 3-/5 L Shoulder External Rotation: 3-/5 Current Activities Of Daily Living Feeding: Modified Independent Grooming: Modified Independent Bathing Upper Body: Modified Independent Bathing Lower Body: Modified Independent Dressing Upper Body: Modified Independent (difficulty with buttons) Dressing Lower Body: Modified Independent (difficulty with buttons and tying shoes) Toileting: Modified Independent Instrumental Activities of Daily Living Meal/Beverage Prep: Modified Independent (difficulty cutting food) Cooking: Modified Independent (slow pace, difficulty with cutting) Cleaning: Total Assistance Laundry: Total Assistance TREATMENT: Therapeutic Exercise: 1: *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 Reviewed and educated patient on additions/changes for home exercise program as above (*) Skilled judgment was provided in selection of appropriate interventions. Provided written instruction for home exercise program to facilitate proper performance and compliance. Therapeutic Activity: 1: monthly assessment of status compared to goals Skilled Intervention: Activity progression based on professional judgment. Billing: [place]: Therapeutic Exercise (35424): 1:1 time: 25 minutes (2 units: 23-37 mins) Therapeutic Functional Activity (51667): 1:1 time:20 minutes (1 unit: 8-22 mins) Total time: 45 minutes HEATHER Diallo/Fara CNTHERAPY Observed: 07/11/2018 Status: COMPLETED Source: [place] 8:15 AM [facility] REPOSITORY OT/PT/Speech Visit (LTOT) JEFFREY CULLEN JR. ([id number]) 1950 M [facility] Date Time Provider Department 07/11/18 8:15 AM NADEEM STEELE (SUMMER) LTOT Date Time Provider Department [place] 07/11/2018 8:15 AM [id number], TIMOTHY *LTOT [address] Reason for Visit: OT Progress Note [2335] Primary Visit Diagnosis:Stiffness of left hand joint [M25.642] Other Visit Diagnoses:Stiffness of right hand joint [M25.641] Decreased range of motion of right shoulder [M25.611] Decreased range of motion of left shoulder [M25.612] Decreased activities of daily living (ADL) [R68.89] Allergies As of Date: 07/11/2018 Noted Allergy Reaction BEE STING 04/22/2018 16 - Unknown Date Reviewed: 07/04/2018 Reviewed by: Stephani (Ot) SUMMER Shah - Fully Assessed Prescriptions as of 07/11/2018 Sig: APIXABAN 5 MG TABLET Take 1 tablet by mouth twice * ACETAMINOPHEN 325 MG TABLET Take 2 tablets by mouth every* LEVETIRACETAM 500 MG TABLET Take 1 tablet by mouth twice * AMIODARONE 100 MG TABLET Take 200 mg by mouth once katerina* FAMOTIDINE 10 MG TABLET Take 20 mg by mouth twice katerina* LISINOPRIL 2.5 MG TABLET Take 2.5 mg by mouth once katerina* NADOLOL 20 MG TABLET Take 40 mg by mouth once janet* VALPROIC ACID ( SODIUM SALT* Take 10 mL by mouth every 8 h* ONDANSETRON HCL (PF) 4 MG/2 M* Inject 4 mg intravenously federica* ATORVASTATIN 40 MG TABLET Take 1 tablet by mouth daily * HALOPERIDOL 2 MG/ML ORAL CONC* Take 2.5 mL by mouth every 6 * ALBUTEROL SULFATE 2.5 MG/3 ML* Use 3 mL via nebulizer every * IPRATROPIUM-ALBUTEROL 0.5 MG-* Inhale 3 mL as instructed fou* METOPROLOL TARTRATE 100 MG TA* Take 1 tablet by mouth every * DILTIAZEM 60 MG TABLET 1 tablet by NASOGASTRIC route* PROPOFOL 10 MG/ML INTRAVENOUS* Inject 1.091-5.455 mg/min int* BUDESONIDE 0.5 MG/2 ML SUSPEN* Use 4 mL via nebulizer twice * METOCLOPRAMIDE 5 MG/ML INJECT* Inject 10 mg intravenously ev* POLYETHYLENE GLYCOL 3350 17 G* Take 1 Packet by mouth once d* SENNOSIDES 8.6 MG-DOCUSATE SO* Take 1 tablet by mouth twice * BISACODYL 10 MG RECTAL SUPPOS* 1 Suppository by RECTAL route* MELATONIN 3 MG TABLET Take 2 tablets by mouth daily* ASPIRIN 81 MG CHEWABLE TABLET Take 1 tablet by mouth once d* SODIUM CHLORIDE 0.9 % INJECTI* Inject 10 mL intravenously ev* SODIUM CHLORIDE 0.9 % INJECTI* Inject 20 mL intravenously as* THIAMINE HCL (VITAMIN B1) 100* Take 1 tablet by mouth once d* Progress Notes: Nadeem Steele, OTR/L, OTR/L 07/11/2018 9:41 AM Signed Episode Visit Count: 9 Therapist That Will Oversee The Plan Of Care: Vinnie Steele Start of Care Date: 06/09/18 Onset Date: 02/07/18 Plan of Care Certification Date: 06/09/18 Patient Identified by Name and Date of : Yes REHABILITATION AND SPORTS THERAPY OCCUPATIONAL THERAPY PROGRESS REPORT PLAN OF CARE UPDATE: Assessment: Jeffrey Cullen Jr. exhibits difficulty with pain in bilateral shoulders, numbness and tingling in bilateral hands in the fingers, limited coordination, decreased ADL and IADL function, reduced strength in bilateral arms . He continues to be limited with heavy exertion, lifting, physical activities, recreational activities, reaching behind back, reaching overhead, use hand with arm at shoulder level, driving, cleaning, cooking, dressing, gripping, pinching, twisting, pulling, pushing and carrying. He is progressing as expected towards his therapy goals as demonstrated by: documented subjective information on progress, documented objective information regarding ADL's, range of motion, overall function and patient reported outcome measures and appointment compliance. He will benefit from continued skilled therapy requiring Occupational Therapy in order to further improve bilateral shoulder ROM without increased pain for improved functional abilities, increasing strength of bilateral upper extremities, educate on joint protection and compensatory strategies to allow for improved ADL function. Functional gains: Increased endurance / activity tolerance Increased independence with HEP Increased ROM Increased strength Goals for Episode of Care created on 06/09/18 through 09/01/18 Assessed 07/11/18 Patient will complete HEP at [place] level. - progressing Patient will increase active ROM of bilateral hands and shoulders to WFL to allow patient to improved performance of ADLs. 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 - ongoing Patient will report a good understanding of edema control techniques - ongoing Patient will improve his/her AM-PAC T-scale score by 4 points to indicate a Minimal Clinical Important Difference Patient to increase ADL and IADL tasks to at least Modified Independent for previously completed tasks - partially met G CODE REPORTING Based on clinical assessment and the score on the AM-PAC Scale Score Assessment Tool, the G code and corresponding severity modifiers are documented below. Evaluation: 06/09/2018 Current Status: Self-Care: G8987 CL 60-79% impaired Goal Status: Self-Care: G8988 CK 40-59% impaired Progress Report: 07/11/2018 Current Status: Self-Care: G8987 CK 40-59% impaired Goal Status: Self-Care: G8988 CJ 20-39% impaired Planned Interventions, Frequency, and Duration: 2x/week, 4 weeks Total Number of Visits Planned: 12 Patient to be seen for Therapeutic exercise;Therapeutic activities;Manual therapy;Neuromuscular re-education;Self-usp management;ModalitiesUltrasound;E-Stim Unattended PLAN FOR NEXT VISIT: review new home exercises SUBJECTIVE: OT monthly My shoulders are killing me. Pain Score: 8/10 Pain Location: Shoulder - Left;Shoulder - Right Description: Aching Frequency: Continuous OBJECTIVE MEASURES WITH LEVEL OF FUNCTION: Hand Evaluation R Combustion Analyst Position 2 (lbs): 32 lbs L Combustion Analyst Position 2 (lbs): 24 lbs R Lateral Pinch (lbs): 9 lbs L Lateral Pinch (lbs): 10 lbs Hand AROM R Index Finger MP Extension: 10 Degrees R Index Finger PIP Extension : -20 Degrees R Middle Finger PIP Extension: -15 Degrees R Ring Finger PIP Extension: -15 Degrees L Index Finger PIP Extension : -30 Degrees L Middle Finger PIP Extension: -15 Degrees L Ring Finger PIP Extension : -22 Degrees UE AROM R Shoulder Flex: 85 Degrees R Shoulder ABduction: 92 Degrees L Shoulder Flex: 80 Degrees L Shoulder ABduction: 96 Degrees UE and Cervical Strength R Shoulder Flexion: 2-/5 R Shoulder Abduction (C5): 2-/5 R Shoulder Internal Rotation: 3-/5 R Shoulder External Rotation: 3-/5 L Shoulder Flexion: 2-/5 L Shoulder Abduction (C5): 2-/5 L Shoulder Internal Rotation: 3-/5 L Shoulder External Rotation: 3-/5 Current Activities Of Daily Living Feeding: Modified Independent Grooming: Modified Independent Bathing Upper Body: Modified Independent Bathing Lower Body: Modified Independent Dressing Upper Body: Modified Independent (difficulty with buttons) Dressing Lower Body: Modified Independent (difficulty with buttons and tying shoes) Toileting: Modified Independent Instrumental Activities of Daily Living Meal/Beverage Prep: Modified Independent (difficulty cutting food) Cooking: Modified Independent (slow pace, difficulty with cutting) Cleaning: Total Assistance Laundry: Total Assistance TREATMENT: Therapeutic Exercise: 1: *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 Reviewed and educated patient on additions/changes for home exercise program as above (*) Skilled judgment was provided in selection of appropriate interventions. Provided written instruction for home exercise program to facilitate proper performance and compliance. Therapeutic Activity: 1: monthly assessment of status compared to goals Skilled Intervention: Activity progression based on professional judgment. Billing: [place]: Therapeutic Exercise ([id number]): 1:1 time: 25 minutes (2 units: 23-37 mins) Therapeutic Functional Activity ([id number]): 1:1 time:20 minutes (1 unit: 8-22 mins) Total time: 45 minutes XU Diallo PROGRESS Observed: 07/11/2018 Status: COMPLETED Source: [place] 8:09 AM [facility] REPOSITORY [facility] ID: [id number] Author: Beata Alfaro PT ASSIST Service: (none) Author Type: Switch Operator Type: Progress Notes Filed: 07/11/2018 8:13 AM Note Text: Episode Visit Count: 8 Therapist That Will Oversee The Plan Of Care: Reji Veliz Start of Care Date: 06/09/18 Onset Date: 02/06/18 Plan of Care Certification Date: 06/09/18 Patient Identified by Name and Date of : Yes REHABILITATION AND SPORTS THERAPY PHYSICAL THERAPY TREATMENT NOTE ASSESSMENT: Jeffrey Cullen Jr. demonstrated difficulty with static standing balance with single leg stance and improvements in endurance and sit to stand. The patient will continue to benefit from continued skilled physical therapy for endurance, bilateral lower extremity strength and balance. PLAN FOR NEXT VISIT: continue to address endurance , core strength and bilateral le strength and address balance SUBJECTIVE: pt reports bilateral shoulder pain when he lays down going up or down a steep grade is still difficult Pain Score: 8/10 Pain Location: Shoulder - Left;Shoulder - Right Description: Sharp;Sore Frequency: Continuous Post Treatment Pain Score: No Change OBJECTIVE MEASURES WITH LEVEL OF FUNCTION: Pt seated blood pressure 124 /80 mm/hg TREATMENT: Therapeutic Exercise: 1: Nu step seat 11 level 5 ue le 12 min 2: slant board 1 min 3: sit to stand without ue 18 inch 10 x 17 inch 5x 2 4: seated clamshells purple 10 x 2 r/l 5: hookllying modifiied crunch 10 x 2 6: long sitting left great toe flexion vs manual resistance 5 x 2, 5 sec hold 7: supine left piriformis stretch 30 sec x 3 Skilled Intervention: Patient was educated in proper exercise technique and purpose for exercises. Skilled judgment was provided in selection of appropriate interventions. Billing: [place]: Therapeutic Exercise ([id number]): 1:1 time: 50 minutes (3 units: 38-52 mins) Total time: 50 minutes Beata Alfaro PTA CNTHERAPY Observed: 07/11/2018 Status: COMPLETED Source: [place] 7:00 AM [facility] REPOSITORY OT/PT/Speech Visit (LDPT) JEFFREY CULLEN JR. ([id number]) 1950 M [facility] Date Time Provider Department 07/11/18 7:00 AM BEATA ALFARO) LDPT Date Time Provider Department Center 07/11/2018 7:00 AM [id number], PATRICK *LDPT [facility] [address] Reason for Visit: Physical Therapy [503] Primary Visit Diagnosis:Weakness [R53.1] Other Visit Diagnosis:SDH (subdural hematoma) ([facility]) [S06.5X9A] Allergies As of Date: 07/11/2018 Noted Allergy Reaction BEE STING 04/22/2018 16 - Unknown Date Reviewed: 07/04/2018 Reviewed by: Stephani (Ot) SUMMER Shah - Fully Assessed Prescriptions as of 07/11/2018 Sig: APIXABAN 5 MG TABLET Take 1 tablet by mouth twice * ACETAMINOPHEN 325 MG TABLET Take 2 tablets by mouth every* LEVETIRACETAM 500 MG TABLET Take 1 tablet by mouth twice * AMIODARONE 100 MG TABLET Take 200 mg by mouth once katerina* FAMOTIDINE 10 MG TABLET Take 20 mg by mouth twice katerina* LISINOPRIL 2.5 MG TABLET Take 2.5 mg by mouth once katerina* NADOLOL 20 MG TABLET Take 40 mg by mouth once janet* VALPROIC ACID ( SODIUM SALT* Take 10 mL by mouth every 8 h* ONDANSETRON HCL (PF) 4 MG/2 M* Inject 4 mg intravenously federica* ATORVASTATIN 40 MG TABLET Take 1 tablet by mouth daily * HALOPERIDOL 2 MG/ML ORAL CONC* Take 2.5 mL by mouth every 6 * ALBUTEROL SULFATE 2.5 MG/3 ML* Use 3 mL via nebulizer every * IPRATROPIUM-ALBUTEROL 0.5 MG-* Inhale 3 mL as instructed fou* METOPROLOL TARTRATE 100 MG TA* Take 1 tablet by mouth every * DILTIAZEM 60 MG TABLET 1 tablet by NASOGASTRIC route* PROPOFOL 10 MG/ML INTRAVENOUS* Inject 1.091-5.455 mg/min int* BUDESONIDE 0.5 MG/2 ML SUSPEN* Use 4 mL via nebulizer twice * METOCLOPRAMIDE 5 MG/ML INJECT* Inject 10 mg intravenously ev* POLYETHYLENE GLYCOL 3350 17 G* Take 1 Packet by mouth once d* SENNOSIDES 8.6 MG-DOCUSATE SO* Take 1 tablet by mouth twice * BISACODYL 10 MG RECTAL SUPPOS* 1 Suppository by RECTAL route* MELATONIN 3 MG TABLET Take 2 tablets by mouth daily* ASPIRIN 81 MG CHEWABLE TABLET Take 1 tablet by mouth once d* SODIUM CHLORIDE 0.9 % INJECTI* Inject 10 mL intravenously ev* SODIUM CHLORIDE 0.9 % INJECTI* Inject 20 mL intravenously as* THIAMINE HCL (VITAMIN B1) 100* Take 1 tablet by mouth once d* Progress Notes: Beata Alfaro PTA, PT ASSIST 07/11/2018 8:13 AM Signed Episode Visit Count: 8 Therapist That Will Oversee The Plan Of Care: Reji Veliz Start of Care Date: 06/09/18 Onset Date: 02/06/18 Plan of Care Certification Date: 06/09/18 Patient Identified by Name and Date of : Yes REHABILITATION AND SPORTS THERAPY PHYSICAL THERAPY TREATMENT NOTE ASSESSMENT: Jeffrey Cullen Jr. demonstrated difficulty with static standing balance with single leg stance and improvements in endurance and sit to stand. The patient will continue to benefit from continued skilled physical therapy for endurance, bilateral lower extremity strength and balance. PLAN FOR NEXT VISIT: continue to address endurance , core strength and bilateral le strength and address balance SUBJECTIVE: pt reports bilateral shoulder pain when he lays down going up or down a steep grade is still difficult Pain Score: 8/10 Pain Location: Shoulder - Left;Shoulder - Right Description: Sharp;Sore Frequency: Continuous Post Treatment Pain Score: No Change OBJECTIVE MEASURES WITH LEVEL OF FUNCTION: Pt seated blood pressure 124 /80 mm/hg TREATMENT: Therapeutic Exercise: 1: Nu step seat 11 level 5 ue le 12 min 2: slant board 1 min 3: sit to stand without ue 18 inch 10 x 17 inch 5x 2 4: seated clamshells purple 10 x 2 r/l 5: hookllying modifiied crunch 10 x 2 6: long sitting left great toe flexion vs manual resistance 5 x 2, 5 sec hold 7: supine left piriformis stretch 30 sec x 3 Skilled Intervention: Patient was educated in proper exercise technique and purpose for exercises. Skilled judgment was provided in selection of appropriate interventions. Billing: [place]: Therapeutic Exercise ([id number]): 1:1 time: 50 minutes (3 units: 38-52 mins) Total time: 50 minutes Beata Alfaro PTA PROGRESS Observed: 07/07/2018 Status: COMPLETED Source: [place] 1:01 PM [facility] REPOSITORY [facility] ID: [id number] Author: Rufina (Pt) MANUEL Edward Service: (none) Author Type: Physical Therapist Type: Progress Notes Filed: 07/07/2018 1:09 PM Note Text: Episode Visit Count: 7 Therapist That Will Oversee The Plan Of Care: Reji Veliz Start of Care Date: 06/09/18 Onset Date: 02/06/18 Plan of Care Certification Date: 06/09/18 Patient Identified by Name and Date of : Yes REHABILITATION AND SPORTS THERAPY PHYSICAL THERAPY PROGRESS REPORT PLAN OF CARE UPDATE: Assessment: Jeffrey Cullen Jr. exhibits improvements in lower extremity strength, gait speed and stability. He continues to be limited with rising from a chair, walking in the community, stair negotiation, physical activities and recreational activities. He is progressing as expected towards his therapy goals as demonstrated by: documented subjective information on progress, documented objective information regarding gait, overall function and patient reported outcome measures and appointment compliance. He will benefit from continued skilled therapy requiring strength, conditioning and balance training in order to further improve function and achieve patient goal of ability to veloz in the [place] with his dogs. Functional gains: Improved postural awareness Improved gait quality Improved balance / decreased risk of falls Increased endurance / activity tolerance Increased strength Goals status as of 07/08/18 Goals for Episode of Care: created on 06/09/18 through 08/08/18 [place] in home exercise program. ONGOING Patient will demonstrate 5/5 strength through BLE to facilitate gait and improve safety. PARTIALLY MET, ONGOING Demonstrate improvement on functional score: Patient will improve his/her AM-PAC T-scale score by 4 points to indicate a Minimal Clinical Important Difference . Scored 53.12 at initial evaluation Current score 58.58, MET Update goal to increase by 4 additional points Reciprocal stair negotiation. PARTIALLY MET G CODE REPORTING Based on clinical assessment and the score on the AM-PAC Scale Score Assessment Tool, the G code and corresponding severity modifiers are documented below. Evaluation: 06/09/2018 Current Status: Mobility: Walking and Moving Around: G8978 CK 40-59% impaired Goal Status: Mobility: Walking and Moving Around: G8979 CJ 20-39% impaired Progress Report: 07/07/2018 Current Status: Mobility: Walking and Moving Around: G8978 CJ 20-39% impaired Goal Status: Mobility: Walking and Moving Around: G8979 CI 1-19% impaired Planned Interventions, Frequency, and Duration: 2x/week, 4 weeks Total Number of Visits Planned: 16 Patient to be seen for Therapeutic exercise;Neuromuscular re-education;Therapeutic activities;Self-usp management;Gait Training;Patient/Family/Caregiver Education;General Conditioning PLAN FOR NEXT VISIT: LE and core strengthening, aerobic conditioning, static and dynamic balance activities SUBJECTIVE: walking 12 minutes 1x per day. States legs feel like rubber bands. Legs throb after walking. Pain Score: 0/10 Post Treatment Pain Score: No Change OBJECTIVE MEASURES WITH LEVEL OF FUNCTION: Gait General Gait Deviations: Gypsy decreased;Wide base of support Able to ambulate around hospital grounds in 5 minutes with SBA. 5 Times Sit to Stand Test : 20.7 sec Timed Up and Go (sec): 8 sec TREATMENT: Therapeutic Exercise: 1: sit to stand 10x 2 sets 22' height 2: heel raises 10x 2 3: *corner A/P sway 4: education on progression of strength training per strength and conditioning guidelines Skilled Intervention: Patient was educated in proper exercise technique and purpose for exercises. Reviewed and educated patient on additions/changes for home exercise program as above (*) Skilled judgment was provided in selection of appropriate interventions. Correct performance of therapeutic exercises was facilitated with verbal, visual and tactile cuing. Gait Trainin: walking around hospital grounds, 5 minutes, no standing breaks Skilled Intervention: Patient was provided stand by assist during pre-gait/gait training to prevent falls and insure safety. Encouraged continued increases in walking distances/time. Instructed in varying speed to facilitate increasing aerobic capacity. Patient instructed to progress with caution and monitor vitals as necessary. Billing: [place]: Therapeutic Exercise ([id number]): 1:1 time: 35 minutes (2 units: 23-37 mins) Gait Training ([id number]): 1:1 time: 10 minutes (1 unit: 8-22 mins) Total time: 45 minutes Rufina Edward PT PROGRESS Observed: 07/07/2018 Status: COMPLETED Source: [place] 10:45 AM [facility] REPOSITORY [facility] ID: [id number] Author: Nadeem Pinto) XU Steele Service: (none) Author Type: Occupational Therapist Type: Progress Notes Filed: 07/07/2018 10:49 AM Note Text: Episode Visit Count: 8 Therapist That Will Oversee The Plan Of Care: Vinnie Steele Start of Care Date: 06/09/18 Onset Date: 02/07/18 Plan of Care Certification Date: 06/09/18 Patient Identified by Name and Date of : Yes REHABILITATION AND SPORTS THERAPY OCCUPATIONAL THERAPY TREATMENT NOTE ASSESSMENT: Jeffrey Cullen Jr. demonstrated difficulty with bilateral finger range of motion and hand weakness. The patient will continue to benefit from continued skilled occupational therapy for improving finger range of motion and increasing strength to allow for improved ADL and return to leisure activity. PLAN FOR NEXT VISIT: OT monthly assessment SUBJECTIVE: OT treatment My shoulders are very painful but I need my hands worked on. Pain Score: 8/10 Pain Location: Shoulder - Right;Shoulder - Left Description: Aching;Shooting;Throbbing Frequency: Continuous OBJECTIVE MEASURES WITH LEVEL OF FUNCTION: Tolerated IASTM and IDN to bilateral hands. No increase in pain in fingers with finger flexion after treatment but improved ability to make a composite fist. TREATMENT: Manual Therapy: 1: IASTM to bilateral hands 2: IDN to bilateral hands on all fingers at DIP, distal phallynx and middle phallynx of each finger on both hands Skilled Intervention: Manual skills to improve joint mobility, ROM, and decrease pain. Utilized anatomy knowledge of the therapist, and assessment of patient's response to intervention. Billing: [place]: Manual therapy ([id number]): 1:1 time: 45 minutes (3 units: 38-52 mins) Total time: 45 minutes HEATHER Diallo/Fara CNTHERAPY Observed: 07/07/2018 Status: COMPLETED Source: [place] 10:30 AM [facility] REPOSITORY OT/PT/Speech Visit (LDPT) JEFFREY CULLEN JR. ([id number]) 1950 M T Date Time Provider Department 07/07/18 10:30 AM RUFINA EDWARD (PT) LDPT Date Time Provider Department Center 07/07/2018 10:30 AM [id number], CHRISTI *LDPT [address] Reason for Visit: PT Progress Note [1596] Primary Visit Diagnosis:Weakness [R53.1] Other Visit Diagnosis:SDH (subdural hematoma) ([facility]) [S06.5X9A] Allergies As of Date: 07/07/2018 Noted Allergy Reaction BEE STING 04/22/2018 16 - Unknown Date Reviewed: 07/04/2018 Reviewed by: Stephani (Ot) SUMMER Shah - Fully Assessed Prescriptions as of 07/07/2018 Sig: APIXABAN 5 MG TABLET Take 1 tablet by mouth twice * ACETAMINOPHEN 325 MG TABLET Take 2 tablets by mouth every* LEVETIRACETAM 500 MG TABLET Take 1 tablet by mouth twice * AMIODARONE 100 MG TABLET Take 200 mg by mouth once katerina* FAMOTIDINE 10 MG TABLET Take 20 mg by mouth twice katerina* LISINOPRIL 2.5 MG TABLET Take 2.5 mg by mouth once katerina* NADOLOL 20 MG TABLET Take 40 mg by mouth once janet* VALPROIC ACID ( SODIUM SALT* Take 10 mL by mouth every 8 h* ONDANSETRON HCL (PF) 4 MG/2 M* Inject 4 mg intravenously federica* ATORVASTATIN 40 MG TABLET Take 1 tablet by mouth daily * HALOPERIDOL 2 MG/ML ORAL CONC* Take 2.5 mL by mouth every 6 * ALBUTEROL SULFATE 2.5 MG/3 ML* Use 3 mL via nebulizer every * IPRATROPIUM-ALBUTEROL 0.5 MG-* Inhale 3 mL as instructed fou* METOPROLOL TARTRATE 100 MG TA* Take 1 tablet by mouth every * DILTIAZEM 60 MG TABLET 1 tablet by NASOGASTRIC route* PROPOFOL 10 MG/ML INTRAVENOUS* Inject 1.091-5.455 mg/min int* BUDESONIDE 0.5 MG/2 ML SUSPEN* Use 4 mL via nebulizer twice * METOCLOPRAMIDE 5 MG/ML INJECT* Inject 10 mg intravenously ev* POLYETHYLENE GLYCOL 3350 17 G* Take 1 Packet by mouth once d* SENNOSIDES 8.6 MG-DOCUSATE SO* Take 1 tablet by mouth twice * BISACODYL 10 MG RECTAL SUPPOS* 1 Suppository by RECTAL route* MELATONIN 3 MG TABLET Take 2 tablets by mouth daily* ASPIRIN 81 MG CHEWABLE TABLET Take 1 tablet by mouth once d* SODIUM CHLORIDE 0.9 % INJECTI* Inject 10 mL intravenously ev* SODIUM CHLORIDE 0.9 % INJECTI* Inject 20 mL intravenously as* THIAMINE HCL (VITAMIN B1) 100* Take 1 tablet by mouth once d* Progress Notes: Rufina Edward, PT, PT 07/07/2018 1:09 PM Signed Episode Visit Count: 7 Therapist That Will Oversee The Plan Of Care: Reji Veliz Start of Care Date: 06/09/18 Onset Date: 02/06/18 Plan of Care Certification Date: 06/09/18 Patient Identified by Name and Date of : Yes REHABILITATION AND SPORTS THERAPY PHYSICAL THERAPY PROGRESS REPORT PLAN OF CARE UPDATE: Assessment: Jeffrey Cullen Jr. exhibits improvements in lower extremity strength, gait speed and stability. He continues to be limited with rising from a chair, walking in the community, stair negotiation, physical activities and recreational activities. He is progressing as expected towards his therapy goals as demonstrated by: documented subjective information on progress, documented objective information regarding gait, overall function and patient reported outcome measures and appointment compliance. He will benefit from continued skilled therapy requiring strength, conditioning and balance training in order to further improve function and achieve patient goal of ability to [place] in the [place] with [place]. Functional gains: Improved postural awareness Improved gait quality Improved balance / decreased risk of falls Increased endurance / activity tolerance Increased strength Goals status as of 07/08/18 Goals for Episode of Care: created on 06/09/18 through 08/08/18 [place] in home exercise program. ONGOING Patient will demonstrate 5/5 strength through BLE to facilitate gait and improve safety. PARTIALLY MET, ONGOING Demonstrate improvement on functional score: Patient will improve his/her AM-PAC T-scale score by 4 points to indicate a Minimal Clinical Important Difference . Scored 53.12 at initial evaluation Current score 58.58, MET Update goal to increase by 4 additional points Reciprocal stair negotiation. PARTIALLY MET G CODE REPORTING Based on clinical assessment and the score on the AM-PAC Scale Score Assessment Tool, the G code and corresponding severity modifiers are documented below. Evaluation: 06/09/2018 Current Status: Mobility: Walking and Moving Around: G8978 CK 40-59% impaired Goal Status: Mobility: Walking and Moving Around: G8979 CJ 20-39% impaired Progress Report: 07/07/2018 Current Status: Mobility: Walking and Moving Around: G8978 CJ 20-39% impaired Goal Status: Mobility: Walking and Moving Around: G8979 CI 1-19% impaired Planned Interventions, Frequency, and Duration: 2x/week, 4 weeks Total Number of Visits Planned: 16 Patient to be seen for Therapeutic exercise;Neuromuscular re-education;Therapeutic activities;Self-usp management;Gait Training;Patient/Family/Caregiver Education;General Conditioning PLAN FOR NEXT VISIT: LE and core strengthening, aerobic conditioning, static and dynamic balance activities SUBJECTIVE: walking 12 minutes 1x per day. States legs feel like rubber bands. Legs throb after walking. Pain Score: 0/10 Post Treatment Pain Score: No Change OBJECTIVE MEASURES WITH LEVEL OF FUNCTION: Gait General Gait Deviations: Gypsy decreased;Wide base of support Able to ambulate around hospital grounds in 5 minutes with SBA. 5 Times Sit to Stand Test : 20.7 sec Timed Up and Go (sec): 8 sec TREATMENT: Therapeutic Exercise: 1: sit to stand 10x 2 sets 22' height 2: heel raises 10x 2 3: *corner A/P sway 4: education on progression of strength training per strength and conditioning guidelines Skilled Intervention: Patient was educated in proper exercise technique and purpose for exercises. Reviewed and educated patient on additions/changes for home exercise program as above (*) Skilled judgment was provided in selection of appropriate interventions. Correct performance of therapeutic exercises was facilitated with verbal, visual and tactile cuing. Gait Trainin: walking around hospital grounds, 5 minutes, no standing breaks Skilled Intervention: Patient was provided stand by assist during pre-gait/gait training to prevent falls and insure safety. Encouraged continued increases in walking distances/time. Instructed in varying speed to facilitate increasing aerobic capacity. Patient instructed to progress with caution and monitor vitals as necessary. Billing: [place]: Therapeutic Exercise ([id number]): 1:1 time: 35 minutes (2 units: 23-37 mins) Gait Training (56123): 1:1 time: 10 minutes (1 unit: 8-22 mins) Total time: 45 minutes Rufina Edward PT CNTHERAPY Observed: 07/07/2018 Status: COMPLETED Source: [place] 9:30 AM [facility] REPOSITORY OT/PT/Speech Visit (LTOT) JEFFREY CULLEN JR. ([id number]) 1950 M [facility] Date Time Provider Department 07/07/18 9:30 AM NADEEM STEELE (OT) JUD Date Time Provider Department [place] 07/07/2018 9:30 AM [id number], TIMOTHY *LTOT [facility] [address] Reason for Visit: Occupational Therapy [504] Primary Visit Diagnosis:Stiffness of left hand joint [M25.642] Other Visit Diagnoses:Stiffness of right hand joint [M25.641] Decreased range of motion of right shoulder [M25.611] Decreased range of motion of left shoulder [M25.612] Decreased activities of daily living (ADL) [R68.89] Weakness [R53.1] Allergies As of Date: 07/07/2018 Noted Allergy Reaction BEE STING 04/22/2018 16 - Unknown Date Reviewed: 07/04/2018 Reviewed by: Stephani MoodyOt) SUMMER Shah - Fully Assessed Prescriptions as of 07/07/2018 Sig: APIXABAN 5 MG TABLET Take 1 tablet by mouth twice * ACETAMINOPHEN 325 MG TABLET Take 2 tablets by mouth every* LEVETIRACETAM 500 MG TABLET Take 1 tablet by mouth twice * AMIODARONE 100 MG TABLET Take 200 mg by mouth once katerina* FAMOTIDINE 10 MG TABLET Take 20 mg by mouth twice katerina* LISINOPRIL 2.5 MG TABLET Take 2.5 mg by mouth once katerina* NADOLOL 20 MG TABLET Take 40 mg by mouth once janet* VALPROIC ACID ( SODIUM SALT* Take 10 mL by mouth every 8 h* ONDANSETRON HCL (PF) 4 MG/2 M* Inject 4 mg intravenously federica* ATORVASTATIN 40 MG TABLET Take 1 tablet by mouth daily * HALOPERIDOL 2 MG/ML ORAL CONC* Take 2.5 mL by mouth every 6 * ALBUTEROL SULFATE 2.5 MG/3 ML* Use 3 mL via nebulizer every * IPRATROPIUM-ALBUTEROL 0.5 MG-* Inhale 3 mL as instructed fou* METOPROLOL TARTRATE 100 MG TA* Take 1 tablet by mouth every * DILTIAZEM 60 MG TABLET 1 tablet by NASOGASTRIC route* PROPOFOL 10 MG/ML INTRAVENOUS* Inject 1.091-5.455 mg/min int* BUDESONIDE 0.5 MG/2 ML SUSPEN* Use 4 mL via nebulizer twice * METOCLOPRAMIDE 5 MG/ML INJECT* Inject 10 mg intravenously ev* POLYETHYLENE GLYCOL 3350 17 G* Take 1 Packet by mouth once d* SENNOSIDES 8.6 MG-DOCUSATE SO* Take 1 tablet by mouth twice * BISACODYL 10 MG RECTAL SUPPOS* 1 Suppository by RECTAL route* MELATONIN 3 MG TABLET Take 2 tablets by mouth daily* ASPIRIN 81 MG CHEWABLE TABLET Take 1 tablet by mouth once d* SODIUM CHLORIDE 0.9 % INJECTI* Inject 10 mL intravenously ev* SODIUM CHLORIDE 0.9 % INJECTI* Inject 20 mL intravenously as* THIAMINE HCL (VITAMIN B1) 100* Take 1 tablet by mouth once d* Progress Notes: HEATHER Diallo/Fara, HEATHER/Fara 07/07/2018 10:49 AM Signed Episode Visit Count: 8 Therapist That Will Oversee The Plan Of Care: Vinnie Steele Start of Care Date: 06/09/18 Onset Date: 02/07/18 Plan of Care Certification Date: 06/09/18 Patient Identified by Name and Date of : Yes REHABILITATION AND SPORTS THERAPY OCCUPATIONAL THERAPY TREATMENT NOTE ASSESSMENT: Jeffrey Cullen Jr. demonstrated difficulty with bilateral finger range of motion and hand weakness. The patient will continue to benefit from continued skilled occupational therapy for improving finger range of motion and increasing strength to allow for improved ADL and return to leisure activity. PLAN FOR NEXT VISIT: OT monthly assessment SUBJECTIVE: OT treatment My shoulders are very painful but I need my hands worked on. Pain Score: 8/10 Pain Location: Shoulder - Right;Shoulder - Left Description: Aching;Shooting;Throbbing Frequency: Continuous OBJECTIVE MEASURES WITH LEVEL OF FUNCTION: Tolerated IASTM and IDN to bilateral hands. No increase in pain in fingers with finger flexion after treatment but improved ability to make a composite fist. TREATMENT: Manual Therapy: 1: IASTM to bilateral hands 2: IDN to bilateral hands on all fingers at DIP, distal phallynx and middle phallynx of each finger on both hands Skilled Intervention: Manual skills to improve joint mobility, ROM, and decrease pain. Utilized anatomy knowledge of the therapist, and assessment of patient's response to intervention. Billing: [place]: Manual therapy ([id number]): 1:1 time: 45 minutes (3 units: 38-52 mins) Total time: 45 minutes HEATHER Diallo/Fara PROGRESS Observed: 07/04/2018 Status: COMPLETED Source: [place] 9:36 AM [facility] REPOSITORY O ID: [id number] Author: Stephani (Ot) SUMMER Shah Service: (none) Author Type: Occupational Therapist Type: Progress Notes Filed: 07/04/2018 11:13 AM Note Text: Episode Visit Count: 7 Therapist That Will Oversee The Plan Of Care: Vinnie Steele Start of Care Date: 06/09/18 Onset Date: 02/07/18 Plan of Care Certification Date: 06/09/18 Patient Identified by Name and Date of : Yes REHABILITATION AND SPORTS THERAPY OCCUPATIONAL THERAPY TREATMENT NOTE ASSESSMENT: Jeffrey Fara Cullen Jr. demonstrated difficulty with all tasks this morning stating that he is very tired after PT but also that his shoulders are killing him and he reports that he is no longer to take Ibuprofen because his pharmacist told him that it will increase his risk for another heart attack. . The patient will continue to benefit from continued skilled occupational therapy for strengthening, ROM, ADL adaptations and pain relief strategies. Provided a long bath sponge with a tight curve on it to help pt reach shoulders for application of Topricin. Pt will use his ICY Hot on sponge at home to see if it helps relieve pain enough for him to sleep better. PLAN FOR NEXT VISIT: assess effectiveness of long bathsponge to apply Icy Hot to help with sleep SUBJECTIVE: Pt reports increased fatigue pain and stiffness this date. Pain Score: 8/10 Pain Location: Shoulder - Left (right shoulder) OBJECTIVE MEASURES WITH LEVEL OF FUNCTION: Hand Evaluation R Combustion Analyst Position 2 (lbs): 28 lbs (pt reports he is having a bad day. 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 Skilled Intervention: Patient was educated in proper exercise technique and purpose for exercises. Skilled judgment was provided in selection of appropriate interventions. Self-Longterm Management: Skilled Intervention: Educated pt on use of curved long bath sponge to apply pain relief cream for shoulders. Pt is unable to reach shoulders to apply normally and reports thathe has Icy Hot but can not put it on himself. Billing: [place]: Therapeutic Exercise ([id number]): 1:1 time: 30 minutes (2 units: 23-37 mins) Self Care / Home Management ([id number]): 1:1 time: 15 minutes (1 unit: 8-22 mins) Total time: 45 minutes Stephani Shah OTR/L PROGRESS Observed: 07/04/2018 Status: COMPLETED Source: [place] 8:47 AM [facility] REPOSITORY O ID: [id number] Author: Beata (Tare Weigher) MANUEL Alfaro ASSIST Service: (none) Author Type: Switch Operator Type: Progress Notes Filed: 07/04/2018 8:51 AM Note Text: Episode Visit Count: 6 Therapist That Will Oversee The Plan Of Care: Reji Veliz Start of Care Date: 06/09/18 Onset Date: 02/06/18 Plan of Care Certification Date: 06/09/18 Patient Identified by Name and Date of : Yes REHABILITATION AND SPORTS THERAPY PHYSICAL THERAPY TREATMENT NOTE ASSESSMENT: Jeffrey Cullen Jr. demonstrated difficulty with strength in bilateral gastrocs, due to inability to progress to gravity dependent plantar flexion and improvements in endurance with less breaks. The patient will continue to benefit from continued skilled physical therapy for global strengthening and endurance. PLAN FOR NEXT VISIT: SUBJECTIVE: pt reports shoulders hurt blood pressure is up and down Pt goal is to be able to squirrel veloz this fall. Pain Score: 8/10 Pain Location: Shoulder - Left;Shoulder - Right Description: Sharp Frequency: Continuous Post Treatment Pain Score: No Change (pt fatigued) OBJECTIVE MEASURES WITH LEVEL OF FUNCTION: Pt unable to perform bilateral calf raises in standing TREATMENT: Therapeutic Exercise: 1: nu step seat 10 level 7 10 min 2: standing on black foam mid trap low trap rows green tb 10 x 2 3: standing on black foam unsupported 30 sec x 2 4: side step 10' x 2 , 10 ' x 2 with shoulders flexed at ~6 90 degrees, 10' x 2 5: standing back to wall bilateral ankle dorsiflexion, 10 x 2 6: attempted standing plantar flexion lacked ROM and eccentric control, 7: long sitting plantar flexion mckeon tb 10 x 2 r/l 8: standing butt taps on stool 23.5 height 10 x 2 with ue support Skilled Intervention: Patient was educated in proper exercise technique and purpose for exercises. Skilled judgment was provided in selection of appropriate interventions. Billing: [place]: Therapeutic Exercise ([id number]): 1:1 time: 50 minutes (3 units: 38-52 mins) Total time: 50 minutes Beata Alfaro PTA CNTHERAPY Observed: 07/04/2018 Status: COMPLETED Source: [place] 8:45 AM [facility] REPOSITORY OT/PT/Speech Visit (LTOT) JEFFREY CULLEN JR. ([id number]) 1950 M T Date Time Provider Department 07/04/18 8:45 AM OT LODI PROVIDER LTOT Date Time Provider Department [place] 07/04/2018 8:45 AM [id number] LODI PROVIDER LTOT [facility] [address] Reason for Visit: Occupational Therapy [504] Visit Diagnoses:Stiffness of right hand joint [M25.641] Stiffness of left hand joint [M25.642] Decreased range of motion of right shoulder [M25.611] Decreased range of motion of left shoulder [M25.612] Decreased activities of daily living (ADL) [R68.89] Allergies As of Date: 07/04/2018 Noted Allergy Reaction BEE STING 04/22/2018 16 - Unknown Date Reviewed: 07/04/2018 Reviewed by: Stephani Shah OT - Fully Assessed Prescriptions as of 07/04/2018 Sig: APIXABAN 5 MG TABLET Take 1 tablet by mouth twice * ACETAMINOPHEN 325 MG TABLET Take 2 tablets by mouth every* LEVETIRACETAM 500 MG TABLET Take 1 tablet by mouth twice * AMIODARONE 100 MG TABLET Take 200 mg by mouth once katerina* FAMOTIDINE 10 MG TABLET Take 20 mg by mouth twice katerina* LISINOPRIL 2.5 MG TABLET Take 2.5 mg by mouth once katerina* NADOLOL 20 MG TABLET Take 40 mg by mouth once janet* VALPROIC ACID ( SODIUM SALT* Take 10 mL by mouth every 8 h* ONDANSETRON HCL (PF) 4 MG/2 M* Inject 4 mg intravenously federica* ATORVASTATIN 40 MG TABLET Take 1 tablet by mouth daily * HALOPERIDOL 2 MG/ML ORAL CONC* Take 2.5 mL by mouth every 6 * ALBUTEROL SULFATE 2.5 MG/3 ML* Use 3 mL via nebulizer every * IPRATROPIUM-ALBUTEROL 0.5 MG-* Inhale 3 mL as instructed fou* METOPROLOL TARTRATE 100 MG TA* Take 1 tablet by mouth every * DILTIAZEM 60 MG TABLET 1 tablet by NASOGASTRIC route* PROPOFOL 10 MG/ML INTRAVENOUS* Inject 1.091-5.455 mg/min int* BUDESONIDE 0.5 MG/2 ML SUSPEN* Use 4 mL via nebulizer twice * METOCLOPRAMIDE 5 MG/ML INJECT* Inject 10 mg intravenously ev* POLYETHYLENE GLYCOL 3350 17 G* Take 1 Packet by mouth once d* SENNOSIDES 8.6 MG-DOCUSATE SO* Take 1 tablet by mouth twice * BISACODYL 10 MG RECTAL SUPPOS* 1 Suppository by RECTAL route* MELATONIN 3 MG TABLET Take 2 tablets by mouth daily* ASPIRIN 81 MG CHEWABLE TABLET Take 1 tablet by mouth once d* SODIUM CHLORIDE 0.9 % INJECTI* Inject 10 mL intravenously ev* SODIUM CHLORIDE 0.9 % INJECTI* Inject 20 mL intravenously as* THIAMINE HCL (VITAMIN B1) 100* Take 1 tablet by mouth once d* Progress Notes: HEATHER Jay/Fara, OT 07/04/2018 11:13 AM Signed Episode Visit Count: 7 Therapist That Will Oversee The Plan Of Care: Vinnie Steele Start of Care Date: 06/09/18 Onset Date: 02/07/18 Plan of Care Certification Date: 06/09/18 Patient Identified by Name and Date of : Yes REHABILITATION AND SPORTS THERAPY OCCUPATIONAL THERAPY TREATMENT NOTE ASSESSMENT: Jeffrey Cullen Jr. demonstrated difficulty with all tasks this morning stating that he is very tired after PT but also that his shoulders are killing him and he reports that he is no longer to take Ibuprofen because his pharmacist told him that it will increase his risk for another heart attack. . The patient will continue to benefit from continued skilled occupational therapy for strengthening, ROM, ADL adaptations and pain relief strategies. Provided a long bath sponge with a tight curve on it to help pt reach shoulders for application of Topricin. Pt will use his ICY Hot on sponge at home to see if it helps relieve pain enough for him to sleep better. PLAN FOR NEXT VISIT: assess effectiveness of long bathsponge to apply Icy Hot to help with sleep SUBJECTIVE: Pt reports increased fatigue pain and stiffness this date. Pain Score: 8/10 Pain Location: Shoulder - Left (right shoulder) OBJECTIVE MEASURES WITH LEVEL OF FUNCTION: Hand Evaluation R Combustion Analyst Position 2 (lbs): 28 lbs (pt reports he is having a bad day. 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 Skilled Intervention: Patient was educated in proper exercise technique and purpose for exercises. Skilled judgment was provided in selection of appropriate interventions. Self-Longterm Management: Skilled Intervention: Educated pt on use of curved long bath sponge to apply pain relief cream for shoulders. Pt is unable to reach shoulders to apply normally and reports thathe has Icy Hot but can not put it on himself. Mia: [place]: Therapeutic Exercise ([id number]): 1:1 time: 30 minutes (2 units: 23-37 mins) Self Care / Home Management ([id number]): 1:1 time: 15 minutes (1 unit: 8-22 mins) Total time: 45 minutes HEATHER Jay/Fara CNTHERAPY Observed: 07/04/2018 Status: COMPLETED Source: [place] 7:45 AM [facility] REPOSITORY OT/PT/Speech Visit (LDPT) JEFFREY CULLEN JR. ([id number]) 1950 M CHT Date Time Provider Department 07/04/18 7:45 AM BEATA ALFARO ([employer]) LDPT Date Time Provider Department Center 07/04/2018 7:45 AM [id number], PATRICK *LDPT [facility] [address] Reason for Visit: Physical Therapy [503] Primary Visit Diagnosis:Weakness [R53.1] Other Visit Diagnosis:SDH (subdural hematoma) ([facility]) [S06.5X9A] Allergies As of Date: 07/04/2018 Noted Allergy Reaction BEE STING 04/22/2018 16 - Unknown Date Reviewed: 07/04/2018 Reviewed by: Stephani (Ot) SUMMER Shah - Fully Assessed Prescriptions as of 07/04/2018 Sig: APIXABAN 5 MG TABLET Take 1 tablet by mouth twice * ACETAMINOPHEN 325 MG TABLET Take 2 tablets by mouth every* LEVETIRACETAM 500 MG TABLET Take 1 tablet by mouth twice * AMIODARONE 100 MG TABLET Take 200 mg by mouth once katerina* FAMOTIDINE 10 MG TABLET Take 20 mg by mouth twice katerina* LISINOPRIL 2.5 MG TABLET Take 2.5 mg by mouth once katerina* NADOLOL 20 MG TABLET Take 40 mg by mouth once janet* VALPROIC ACID ( SODIUM SALT* Take 10 mL by mouth every 8 h* ONDANSETRON HCL (PF) 4 MG/2 M* Inject 4 mg intravenously federica* ATORVASTATIN 40 MG TABLET Take 1 tablet by mouth daily * HALOPERIDOL 2 MG/ML ORAL CONC* Take 2.5 mL by mouth every 6 * ALBUTEROL SULFATE 2.5 MG/3 ML* Use 3 mL via nebulizer every * IPRATROPIUM-ALBUTEROL 0.5 MG-* Inhale 3 mL as instructed fou* METOPROLOL TARTRATE 100 MG TA* Take 1 tablet by mouth every * DILTIAZEM 60 MG TABLET 1 tablet by NASOGASTRIC route* PROPOFOL 10 MG/ML INTRAVENOUS* Inject 1.091-5.455 mg/min int* BUDESONIDE 0.5 MG/2 ML SUSPEN* Use 4 mL via nebulizer twice * METOCLOPRAMIDE 5 MG/ML INJECT* Inject 10 mg intravenously ev* POLYETHYLENE GLYCOL 3350 17 G* Take 1 Packet by mouth once d* SENNOSIDES 8.6 MG-DOCUSATE SO* Take 1 tablet by mouth twice * BISACODYL 10 MG RECTAL SUPPOS* 1 Suppository by RECTAL route* MELATONIN 3 MG TABLET Take 2 tablets by mouth daily* ASPIRIN 81 MG CHEWABLE TABLET Take 1 tablet by mouth once d* SODIUM CHLORIDE 0.9 % INJECTI* Inject 10 mL intravenously ev* SODIUM CHLORIDE 0.9 % INJECTI* Inject 20 mL intravenously as* THIAMINE HCL (VITAMIN B1) 100* Take 1 tablet by mouth once d* Progress Notes: Beata Alfaro PTA, PT ASSIST 07/04/2018 8:51 AM Signed Episode Visit Count: 6 Therapist That Will Oversee The Plan Of Care: Reji Veliz Start of Care Date: 06/09/18 Onset Date: 02/06/18 Plan of Care Certification Date: 06/09/18 Patient Identified by Name and Date of : Yes REHABILITATION AND SPORTS THERAPY PHYSICAL THERAPY TREATMENT NOTE ASSESSMENT: Jeffrey Cullen Jr. demonstrated difficulty with strength in bilateral gastrocs, due to inability to progress to gravity dependent plantar flexion and improvements in endurance with less breaks. The patient will continue to benefit from continued skilled physical therapy for global strengthening and endurance. PLAN FOR NEXT VISIT: SUBJECTIVE: pt reports shoulders hurt blood pressure is up and down Pt goal is to be able to squirrel veloz this fall. Pain Score: 07/07 Pain Location: Shoulder - Left;Shoulder - Right Description: Sharp Frequency: Continuous Post Treatment Pain Score: No Change (pt fatigued) OBJECTIVE MEASURES WITH LEVEL OF FUNCTION: Pt unable to perform bilateral calf raises in standing TREATMENT: Therapeutic Exercise: 1: nu step seat 10 level 7 10 min 2: standing on black foam mid trap low trap rows green tb 10 x 2 3: standing on black foam unsupported 30 sec x 2 4: side step 10' x 2 , 10 ' x 2 with shoulders flexed at ~6 90 degrees, 10' x 2 5: standing back to wall bilateral ankle dorsiflexion, 10 x 2 6: attempted standing plantar flexion lacked ROM and eccentric control, 7: long sitting plantar flexion mckeon tb 10 x 2 r/l 8: standing butt taps on stool 23.5 height 10 x 2 with ue support Skilled Intervention: Patient was educated in proper exercise technique and purpose for exercises. Skilled judgment was provided in selection of appropriate interventions. Johning: [place]: Therapeutic Exercise ([id number]): 1:1 time: 50 minutes (3 units: 38-52 mins) Total time: 50 minutes Beata Alfaro PTA PROGRESS Observed: 06/30/2018 Status: COMPLETED Source: [place] 2:25 PM [facility] [place] REPOSITORY O ID: [id number] Author: Stephani (Ot) SUMMER Shah Service: (none) Author Type: Occupational Therapist Type: Progress Notes Filed: 06/30/2018 2:33 PM Note Text: Episode Visit Count: 6 Therapist That Will Oversee The Plan Of Care: Vinnie Steele Start of Care Date: 06/09/18 Onset Date: 02/07/18 Plan of Care Certification Date: 06/09/18 Patient Identified by Name and Date of : Yes REHABILITATION AND SPORTS THERAPY OCCUPATIONAL THERAPY TREATMENT NOTE ASSESSMENT: 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 He brought in hard rubber ball that he had been using and was advised last visit not to use until staff looked at it. He reports that he had been using it constantly and stopped after he was told to. 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 Pt participated in exercises for his bilateral arms with left being weaker arm. The patient will continue to benefit from continued skilled occupational therapy for continuing improvement of UPPER EXTREMITY function. PLAN FOR NEXT VISIT: continue with strengthening of UE's SUBJECTIVE: Pt reports he could not make a fist prior to OT performing IASTM several visits ago. He was asked if he is doing his home exercise program and pt reports that he does some but mostly watches TV Encouraged pt to participate in HEP for best results. Pain Score: 5/10 Pain Location: Hand - Right (hand left) OBJECTIVE MEASURES WITH LEVEL OF FUNCTION: Hand Evaluation R Combustion Analyst Position 2 (lbs): 30 lbs L Combustion Analyst Position 2 (lbs): 25 lbs TREATMENT: Therapeutic Exercise: 1: card flip 2: 2.2 lb ball lift with wrist in neutral x10 with greater effort for left. 3: small peg board bilaterally 4: 3 lb weigth for wrist flexion and extension 10-15 reps 5: dowel sergio with 4 lbs supine for elbow ext and sitting EOM for flexion Skilled Intervention: Patient was educated in proper exercise technique and purpose for exercises. Skilled judgment was provided in selection of appropriate interventions. Billing: [place]: Therapeutic Exercise ([id number]): 1:1 time: 45 minutes (3 units: 38-52 mins) Total time: 45 minutes HEATHER Jay/Fara PROGRESS Observed: 06/30/2018 Status: COMPLETED Source: [place] 1:22 PM [facility] [place] REPOSITORY [facility] ID: [id number] Author: Rufina (Pt) MANUEL Edward Service: (none) Author Type: Physical Therapist Type: Progress Notes Filed: 06/30/2018 1:26 PM Note Text: Episode Visit Count: 5 Therapist That Will Oversee The Plan Of Care: Reji Veliz Start of Care Date: 06/09/18 Onset Date: 02/06/18 Plan of Care Certification Date: 06/09/18 Patient Identified by Name and Date of : Yes REHABILITATION AND SPORTS THERAPY PHYSICAL THERAPY TREATMENT NOTE ASSESSMENT: Jeffrey Cullen Jr. demonstrated difficulty with progressing activity level at home. The patient will continue to benefit from continued skilled physical therapy for strengthening and aerobic conditioning. PLAN FOR NEXT VISIT: core and general strengthening, aerobic activities monitoring cardiac status SUBJECTIVE: Frustrated with slow progress, wants to be able to walk 6 miles by July to take his dogs hunting Pain Score: 0/10 Post Treatment Pain Score: No Change OBJECTIVE MEASURES WITH LEVEL OF FUNCTION: Gait Gait: Independent Gait Distance (feet): 1000'+ (12 minutes with 3 standing rest breaks) Gait Deviations: General Deviations General Gait Deviations: Gypsy decreased BLOOD PRESSURE 130/78 after walking and NuStep TREATMENT: Therapeutic Exercise: 1: nu step seat 10 UE/LE level 5 7 min 2: sit to stand with maintaining lumbar lordosis 22 inch height 10x 2 3: standing heel raises 10x Skilled Intervention: Patient was educated in proper exercise technique and purpose for exercises. Skilled judgment was provided in selection of appropriate interventions. Correct performance of therapeutic exercises was facilitated with verbal cuing. Gait Trainin: walking around hospital grounds, 11 minutes with 3 standing rest breaks 2: education on endurance building with walking 2-3x/day 10- 12 minutes Skilled Intervention: Patient was provided supervision during pre-gait/gait training to prevent falls and insure safety. Patient education provided on methods to address increasing endurance including frequent small bits of activity initially. Encouraged frequent activity throughout the day and to increase activity time gradually every 3-4 days. Reviewed importance of avoiding over doing it to avoid peaks and valleys with activity tolerance. Billing: [place]: Therapeutic Exercise ([id number]): 1:1 time: 30 minutes (2 units: 23-37 mins) Gait Training ([id number]): 1:1 time: 15 minutes (1 unit: 8-22 mins) Total time: 45 minutes Rufina Edward PT CNTHERAPY Observed: 06/30/2018 Status: COMPLETED Source: [place] 10:30 AM [facility] REPOSITORY OT/PT/Speech Visit (LTOT) JEFFREY CULLEN JR. ([id number]) 1950 M Vinnie Date Time Provider Department 06/30/18 10:30 AM SUMMER KNIGHT PROVIDER LTOT Date Time Provider Department [place] 06/30/2018 10:30 AM [id number] DMI PROVIDER LTOT [facility] [address] Reason for Visit: Occupational Therapy [504] Visit Diagnoses:Stiffness of right hand joint [M25.641] Stiffness of left hand joint [M25.642] Decreased range of motion of right shoulder [M25.611] Decreased range of motion of left shoulder [M25.612] Decreased activities of daily living (ADL) [R68.89] Allergies As of Date: 06/30/2018 Noted Allergy Reaction BEE STING 04/22/2018 16 - Unknown Date Reviewed: 06/30/2018 Reviewed by: Stephani (Ot) SUMMER Shah - Fully Assessed Prescriptions as of 06/30/2018 Sig: APIXABAN 5 MG TABLET Take 1 tablet by mouth twice * ACETAMINOPHEN 325 MG TABLET Take 2 tablets by mouth every* LEVETIRACETAM 500 MG TABLET Take 1 tablet by mouth twice * AMIODARONE 100 MG TABLET Take 200 mg by mouth once katerina* FAMOTIDINE 10 MG TABLET Take 20 mg by mouth twice katerina* LISINOPRIL 2.5 MG TABLET Take 2.5 mg by mouth once katerina* NADOLOL 20 MG TABLET Take 40 mg by mouth once janet* VALPROIC ACID ( SODIUM SALT* Take 10 mL by mouth every 8 h* ONDANSETRON HCL (PF) 4 MG/2 M* Inject 4 mg intravenously federica* ATORVASTATIN 40 MG TABLET Take 1 tablet by mouth daily * HALOPERIDOL 2 MG/ML ORAL CONC* Take 2.5 mL by mouth every 6 * ALBUTEROL SULFATE 2.5 MG/3 ML* Use 3 mL via nebulizer every * IPRATROPIUM-ALBUTEROL 0.5 MG-* Inhale 3 mL as instructed fou* METOPROLOL TARTRATE 100 MG TA* Take 1 tablet by mouth every * DILTIAZEM 60 MG TABLET 1 tablet by NASOGASTRIC route* PROPOFOL 10 MG/ML INTRAVENOUS* Inject 1.091-5.455 mg/min int* BUDESONIDE 0.5 MG/2 ML SUSPEN* Use 4 mL via nebulizer twice * METOCLOPRAMIDE 5 MG/ML INJECT* Inject 10 mg intravenously ev* POLYETHYLENE GLYCOL 3350 17 G* Take 1 Packet by mouth once d* SENNOSIDES 8.6 MG-DOCUSATE SO* Take 1 tablet by mouth twice * BISACODYL 10 MG RECTAL SUPPOS* 1 Suppository by RECTAL route* MELATONIN 3 MG TABLET Take 2 tablets by mouth daily* ASPIRIN 81 MG CHEWABLE TABLET Take 1 tablet by mouth once d* SODIUM CHLORIDE 0.9 % INJECTI* Inject 10 mL intravenously ev* SODIUM CHLORIDE 0.9 % INJECTI* Inject 20 mL intravenously as* THIAMINE HCL (VITAMIN B1) 100* Take 1 tablet by mouth once d* Progress Notes: HEATHER Jay/Fara, OT 06/30/2018 2:33 PM Signed Episode Visit Count: 6 Therapist That Will Oversee The Plan Of Care: Vinnie Steele Start of Care Date: 06/09/18 Onset Date: 02/07/18 Plan of Care Certification Date: 06/09/18 Patient Identified by Name and Date of : Yes REHABILITATION AND SPORTS THERAPY OCCUPATIONAL THERAPY TREATMENT NOTE ASSESSMENT: Jeffrey Fara Cullen Jr. 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 He brought in hard rubber ball that he had been using and was advised last visit not to use until staff looked at it. He reports that he had been using it constantly and stopped after he was told to. 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 Pt participated in exercises for his bilateral arms with left being weaker arm. The patient will continue to benefit from continued skilled occupational therapy for continuing improvement of UPPER EXTREMITY function. PLAN FOR NEXT VISIT: continue with strengthening of UE's SUBJECTIVE: Pt reports he could not make a fist prior to OT performing IASTM several visits ago. He was asked if he is doing his home exercise program and pt reports that he does some but mostly watches TV Encouraged pt to participate in HEP for best results. Pain Score: 5/10 Pain Location: Hand - Right (hand left) OBJECTIVE MEASURES WITH LEVEL OF FUNCTION: Hand Evaluation R Combustion Analyst Position 2 (lbs): 30 lbs L Combustion Analyst Position 2 (lbs): 25 lbs TREATMENT: Therapeutic Exercise: 1: card flip 2: 2.2 lb ball lift with wrist in neutral x10 with greater effort for left. 3: small peg board bilaterally 4: 3 lb weigth for wrist flexion and extension 10-15 reps 5: dowel sergio with 4 lbs supine for elbow ext and sitting EOM for flexion Skilled Intervention: Patient was educated in proper exercise technique and purpose for exercises. Skilled judgment was provided in selection of appropriate interventions. Billing: [place]: Therapeutic Exercise ([id number]): 1:1 time: 45 minutes (3 units: 38-52 mins) Total time: 45 minutes XU Jay CNTHERAPY Observed: 06/30/2018 Status: COMPLETED Source: [place] 9:45 AM [facility] REPOSITORY OT/PT/Speech Visit (LDPT) JEFFREY CULLEN JR. ([id number]) 1950 M CHT Date Time Provider Department 06/30/18 9:45 AM RUFINA EDWARD (PT) LDPT Date Time Provider Department Center 06/30/2018 9:45 AM [id number], CHRISTI *LDPT [facility] [address] Reason for Visit: Physical Therapy [503] Primary Visit Diagnosis:Weakness [R53.1] Other Visit Diagnosis:SDH (subdural hematoma) ([facility]) [S06.5X9A] Allergies As of Date: 06/30/2018 Noted Allergy Reaction BEE STING 04/22/2018 16 - Unknown Date Reviewed: 06/30/2018 Reviewed by: Stephani (Ot) SUMMER Shah - Fully Assessed Prescriptions as of 06/30/2018 Sig: APIXABAN 5 MG TABLET Take 1 tablet by mouth twice * ACETAMINOPHEN 325 MG TABLET Take 2 tablets by mouth every* LEVETIRACETAM 500 MG TABLET Take 1 tablet by mouth twice * AMIODARONE 100 MG TABLET Take 200 mg by mouth once katerina* FAMOTIDINE 10 MG TABLET Take 20 mg by mouth twice katerina* LISINOPRIL 2.5 MG TABLET Take 2.5 mg by mouth once katerina* NADOLOL 20 MG TABLET Take 40 mg by mouth once janet* VALPROIC ACID ( SODIUM SALT* Take 10 mL by mouth every 8 h* ONDANSETRON HCL (PF) 4 MG/2 M* Inject 4 mg intravenously federica* ATORVASTATIN 40 MG TABLET Take 1 tablet by mouth daily * HALOPERIDOL 2 MG/ML ORAL CONC* Take 2.5 mL by mouth every 6 * ALBUTEROL SULFATE 2.5 MG/3 ML* Use 3 mL via nebulizer every * IPRATROPIUM-ALBUTEROL 0.5 MG-* Inhale 3 mL as instructed fou* METOPROLOL TARTRATE 100 MG TA* Take 1 tablet by mouth every * DILTIAZEM 60 MG TABLET 1 tablet by NASOGASTRIC route* PROPOFOL 10 MG/ML INTRAVENOUS* Inject 1.091-5.455 mg/min int* BUDESONIDE 0.5 MG/2 ML SUSPEN* Use 4 mL via nebulizer twice * METOCLOPRAMIDE 5 MG/ML INJECT* Inject 10 mg intravenously ev* POLYETHYLENE GLYCOL 3350 17 G* Take 1 Packet by mouth once d* SENNOSIDES 8.6 MG-DOCUSATE SO* Take 1 tablet by mouth twice * BISACODYL 10 MG RECTAL SUPPOS* 1 Suppository by RECTAL route* MELATONIN 3 MG TABLET Take 2 tablets by mouth daily* ASPIRIN 81 MG CHEWABLE TABLET Take 1 tablet by mouth once d* SODIUM CHLORIDE 0.9 % INJECTI* Inject 10 mL intravenously ev* SODIUM CHLORIDE 0.9 % INJECTI* Inject 20 mL intravenously as* THIAMINE HCL (VITAMIN B1) 100* Take 1 tablet by mouth once d* Progress Notes: Rufina Edward, PT, PT 06/30/2018 1:26 PM Signed Episode Visit Count: 5 Therapist That Will Oversee The Plan Of Care: Reji Veliz Start of Care Date: 06/09/18 Onset Date: 02/06/18 Plan of Care Certification Date: 06/09/18 Patient Identified by Name and Date of : Yes REHABILITATION AND SPORTS THERAPY PHYSICAL THERAPY TREATMENT NOTE ASSESSMENT: Jeffrey Cullen Jr. demonstrated difficulty with progressing activity level at home. The patient will continue to benefit from continued skilled physical therapy for strengthening and aerobic conditioning. PLAN FOR NEXT VISIT: core and general strengthening, aerobic activities monitoring cardiac status SUBJECTIVE: Frustrated with slow progress, wants to be able to walk 6 miles by July to take his dogs hunting Pain Score: 0/10 Post Treatment Pain Score: No Change OBJECTIVE MEASURES WITH LEVEL OF FUNCTION: Gait Gait: Independent Gait Distance (feet): 1000'+ (12 minutes with 3 standing rest breaks) Gait Deviations: General Deviations General Gait Deviations: Gypsy decreased BLOOD PRESSURE 130/78 after walking and NuStep TREATMENT: Therapeutic Exercise: 1: nu step seat 10 UE/LE level 5 7 min 2: sit to stand with maintaining lumbar lordosis 22 inch height 10x 2 3: standing heel raises 10x Skilled Intervention: Patient was educated in proper exercise technique and purpose for exercises. Skilled judgment was provided in selection of appropriate interventions. Correct performance of therapeutic exercises was facilitated with verbal cuing. Gait Trainin: walking around hospital grounds, 11 minutes with 3 standing rest breaks 2: education on endurance building with walking 2-3x/day 10- 12 minutes Skilled Intervention: Patient was provided supervision during pre-gait/gait training to prevent falls and insure safety. Patient education provided on methods to address increasing endurance including frequent small bits of activity initially. Encouraged frequent activity throughout the day and to increase activity time gradually every 3-4 days. Reviewed importance of avoiding over doing it to avoid peaks and valleys with activity tolerance. Billing: [place]: Therapeutic Exercise ([id number]): 1:1 time: 30 minutes (2 units: 23-37 mins) Gait Training ([id number]): 1:1 time: 15 minutes (1 unit: 8-22 mins) Total time: 45 minutes Rufina Edward PT PROGRESS Observed: 06/27/2018 Status: COMPLETED Source: [place] 10:40 AM [facility] REPOSITORY [facility] ID: [id number] Author: Stephani MoodyOtKristin Shah OT Service: (none) Author Type: Occupational Therapist Type: Progress Notes Filed: 06/27/2018 10:46 AM Note Text: Episode Visit Count: 5 Therapist That Will Oversee The Plan Of Care: Vinnie Steele Start of Care Date: 06/09/18 Onset Date: 02/07/18 Plan of Care Certification Date: 06/09/18 Patient Identified by Name and Date of : Yes REHABILITATION AND SPORTS THERAPY OCCUPATIONAL THERAPY TREATMENT NOTE ASSESSMENT: Jeffrey Cullen Jr. demonstrated improvements in active rang of motion bilateral hands with full fist noted bilaterally. 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 The patient will continue to benefit from continued skilled occupational therapy for strength, and fine motor coordination PLAN FOR NEXT VISIT: Pt has a rubber ball that he says he squeezes constantly. Advised hinm to limit so that he does not develop a tendonitis and over work muscles. SUBJECTIVE: Pt reports better movement and strength of hands. Pain Score: 2/10 Pain Location: Back OBJECTIVE MEASURES WITH LEVEL OF FUNCTION: Hand Evaluation R Combustion Analyst Position 2 (lbs): 25 lbs L Combustion Analyst Position 2 (lbs): 25 lbs TREATMENT: Therapeutic Exercise: 1: PROM hand 2: ARROM hand 3: clothes pin pinch tip and lateral 4: small peg board alternating removal 5: palm flat digits extend off table 6: hand on table abd add fingers 7: card flip and hold in intrinsic + position Skilled Intervention: Patient was educated in proper exercise technique and purpose for exercises. Skilled judgment was provided in selection of appropriate interventions. Billing: [place]: Therapeutic Exercise ([id number]): 1:1 time: 45 minutes (3 units: 38-52 mins) Total time: 45 minutes HEATHER Jay/Fara PROGRESS Observed: 06/27/2018 Status: COMPLETED Source: [place] 9:41 AM [facility] REPOSITORY [facility] ID: [id number] Author: Beata (Jostin) MANUEL Alfaro ASSIST Service: (none) Author Type: Switch Operator Type: Progress Notes Filed: 06/27/2018 9:45 AM Note Text: Episode Visit Count: 4 Therapist That Will Oversee The Plan Of Care: Reji Veliz Start of Care Date: 06/09/18 Onset Date: 02/06/18 Plan of Care Certification Date: 06/09/18 REHABILITATION AND SPORTS THERAPY PHYSICAL THERAPY TREATMENT NOTE ASSESSMENT: Jeffrey Cullen Jr. demonstrated difficulty with maintaining a lumbar lordosis with unsupported activities. The patient will continue to benefit from continued skilled physical therapy for progress core stability and gait activities as tolerated, monitor posture and any low back pain PLAN FOR NEXT VISIT: strengthen core and gait activites to address posture and core strength SUBJECTIVE: Pt reports had stomach flu last 3 days tired and weak. Pain Score: 0/10 Post Treatment Pain Score: No Change (fatigued) OBJECTIVE MEASURES WITH LEVEL OF FUNCTION: Seated BP left arm 124/71 mm/hg TREATMENT: Therapeutic Exercise: 1: nu step seat 10 level 5 6 min 2: shuttle bilateral leg press 6 bands 1 min x 2 3: shuttle bilateral leg press with clamshell blue tb 10 x 2 , 5 bands 4: shuttle bilateal plantar flexion,3 bands 10 x attempted single leg right pf unable 5: long sitting pf mckeon tb 10 x 2 r/l* 6: sit to stand with maintaining lumbar lordosis 22 inch height Skilled Intervention: Patient was educated in proper exercise technique and purpose for exercises. Reviewed and educated patient on additions/changes for home exercise program as above (*) Skilled judgment was provided in selection of appropriate interventions. Billing: [place]: Therapeutic Exercise ([id number]): 1:1 time: 45 minutes (3 units: 38-52 mins) Total time: 45 minutes Beata Alfaro PTA CNTHERAPY Observed: 06/27/2018 Status: COMPLETED Source: [place] 9:30 AM [facility] REPOSITORY OT/PT/Speech Visit (LTOT) JEFFREY CULLEN JR. ([id number]) 1950 M [facility] Date Time Provider Department 06/27/18 9:30 AM OT LODI PROVIDER LTOT Date Time Provider Department [place] 06/27/2018 9:30 AM [id number] LODI PROVIDER LTOT [facility] [address] Reason for Visit: Occupational Therapy [504] Primary Visit Diagnosis:Decreased activities of daily living (ADL) [R68.89] Other Visit Diagnoses:Decreased range of motion of left shoulder [M25.612] Decreased range of motion of right shoulder [M25.611] Stiffness of left hand joint [M25.642] Stiffness of right hand joint [M25.641] Allergies As of Date: 06/27/2018 Noted Allergy Reaction BEE STING 04/22/2018 16 - Unknown Date Reviewed: 06/27/2018 Reviewed by: Stephani MoodyOtKristin Shah OT - Fully Assessed Prescriptions as of 06/27/2018 Sig: APIXABAN 5 MG TABLET Take 1 tablet by mouth twice * ACETAMINOPHEN 325 MG TABLET Take 2 tablets by mouth every* LEVETIRACETAM 500 MG TABLET Take 1 tablet by mouth twice * AMIODARONE 100 MG TABLET Take 200 mg by mouth once katerina* FAMOTIDINE 10 MG TABLET Take 20 mg by mouth twice katerina* LISINOPRIL 2.5 MG TABLET Take 2.5 mg by mouth once katerina* NADOLOL 20 MG TABLET Take 40 mg by mouth once janet* VALPROIC ACID ( SODIUM SALT* Take 10 mL by mouth every 8 h* ONDANSETRON HCL (PF) 4 MG/2 M* Inject 4 mg intravenously federica* ATORVASTATIN 40 MG TABLET Take 1 tablet by mouth daily * HALOPERIDOL 2 MG/ML ORAL CONC* Take 2.5 mL by mouth every 6 * ALBUTEROL SULFATE 2.5 MG/3 ML* Use 3 mL via nebulizer every * IPRATROPIUM-ALBUTEROL 0.5 MG-* Inhale 3 mL as instructed fou* METOPROLOL TARTRATE 100 MG TA* Take 1 tablet by mouth every * DILTIAZEM 60 MG TABLET 1 tablet by NASOGASTRIC route* PROPOFOL 10 MG/ML INTRAVENOUS* Inject 1.091-5.455 mg/min int* BUDESONIDE 0.5 MG/2 ML SUSPEN* Use 4 mL via nebulizer twice * METOCLOPRAMIDE 5 MG/ML INJECT* Inject 10 mg intravenously ev* POLYETHYLENE GLYCOL 3350 17 G* Take 1 Packet by mouth once d* SENNOSIDES 8.6 MG-DOCUSATE SO* Take 1 tablet by mouth twice * BISACODYL 10 MG RECTAL SUPPOS* 1 Suppository by RECTAL route* MELATONIN 3 MG TABLET Take 2 tablets by mouth daily* ASPIRIN 81 MG CHEWABLE TABLET Take 1 tablet by mouth once d* SODIUM CHLORIDE 0.9 % INJECTI* Inject 10 mL intravenously ev* SODIUM CHLORIDE 0.9 % INJECTI* Inject 20 mL intravenously as* THIAMINE HCL (VITAMIN B1) 100* Take 1 tablet by mouth once d* Progress Notes: HEATHER Jay/Fara, OT 06/27/2018 10:46 AM Signed Episode Visit Count: 5 Therapist That Will Oversee The Plan Of Care: Vinnie Steele Start of Care Date: 06/09/18 Onset Date: 02/07/18 Plan of Care Certification Date: 06/09/18 Patient Identified by Name and Date of : Yes REHABILITATION AND SPORTS THERAPY OCCUPATIONAL THERAPY TREATMENT NOTE ASSESSMENT: Jeffrey Cullen Jr. demonstrated improvements in active rang of motion bilateral hands with full fist noted bilaterally. 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 The patient will continue to benefit from continued skilled occupational therapy for strength, and fine motor coordination PLAN FOR NEXT VISIT: Pt has a rubber ball that he says he squeezes constantly. Advised hinm to limit so that he does not develop a tendonitis and over work muscles. SUBJECTIVE: Pt reports better movement and strength of hands. Pain Score: 2/10 Pain Location: Back OBJECTIVE MEASURES WITH LEVEL OF FUNCTION: Hand Evaluation R Combustion Analyst Position 2 (lbs): 25 lbs L Combustion Analyst Position 2 (lbs): 25 lbs TREATMENT: Therapeutic Exercise: 1: PROM hand 2: ARROM hand 3: clothes pin pinch tip and lateral 4: small peg board alternating removal 5: palm flat digits extend off table 6: hand on table abd add fingers 7: card flip and hold in intrinsic + position Skilled Intervention: Patient was educated in proper exercise technique and purpose for exercises. Skilled judgment was provided in selection of appropriate interventions. Billing: [place]: Therapeutic Exercise ([id number]): 1:1 time: 45 minutes (3 units: 38-52 mins) Total time: 45 minutes Stephani Shah OTR/Fara CNTHERAPY Observed: 06/27/2018 Status: COMPLETED Source: [place] 8:30 AM [facility] REPOSITORY OT/PT/Speech Visit (LDPT) JEFFREY CULLEN JR. ([id number]) 1950 M [facility] Date Time Provider Department 06/27/18 8:30 AM BEATA ALFARO ([facility]) [place] Date Time Provider Department Center 06/27/2018 8:30 AM [id number], PATRICK *LDPT [address] Reason for Visit: Physical Therapy [503] Primary Visit Diagnosis:Weakness [R53.1] Other Visit Diagnosis:SDH (subdural hematoma) ([facility]) [S06.5X9A] Allergies As of Date: 06/27/2018 Noted Allergy Reaction BEE STING 04/22/2018 16 - Unknown Date Reviewed: 06/27/2018 Reviewed by: Stpehani (Ot) SUMMER Shah - Fully Assessed Prescriptions as of 06/27/2018 Sig: APIXABAN 5 MG TABLET Take 1 tablet by mouth twice * ACETAMINOPHEN 325 MG TABLET Take 2 tablets by mouth every* LEVETIRACETAM 500 MG TABLET Take 1 tablet by mouth twice * AMIODARONE 100 MG TABLET Take 200 mg by mouth once katerina* FAMOTIDINE 10 MG TABLET Take 20 mg by mouth twice katerina* LISINOPRIL 2.5 MG TABLET Take 2.5 mg by mouth once katerina* NADOLOL 20 MG TABLET Take 40 mg by mouth once janet* VALPROIC ACID ( SODIUM SALT* Take 10 mL by mouth every 8 h* ONDANSETRON HCL (PF) 4 MG/2 M* Inject 4 mg intravenously federica* ATORVASTATIN 40 MG TABLET Take 1 tablet by mouth daily * HALOPERIDOL 2 MG/ML ORAL CONC* Take 2.5 mL by mouth every 6 * ALBUTEROL SULFATE 2.5 MG/3 ML* Use 3 mL via nebulizer every * IPRATROPIUM-ALBUTEROL 0.5 MG-* Inhale 3 mL as instructed fou* METOPROLOL TARTRATE 100 MG TA* Take 1 tablet by mouth every * DILTIAZEM 60 MG TABLET 1 tablet by NASOGASTRIC route* PROPOFOL 10 MG/ML INTRAVENOUS* Inject 1.091-5.455 mg/min int* BUDESONIDE 0.5 MG/2 ML SUSPEN* Use 4 mL via nebulizer twice * METOCLOPRAMIDE 5 MG/ML INJECT* Inject 10 mg intravenously ev* POLYETHYLENE GLYCOL 3350 17 G* Take 1 Packet by mouth once d* SENNOSIDES 8.6 MG-DOCUSATE SO* Take 1 tablet by mouth twice * BISACODYL 10 MG RECTAL SUPPOS* 1 Suppository by RECTAL route* MELATONIN 3 MG TABLET Take 2 tablets by mouth daily* ASPIRIN 81 MG CHEWABLE TABLET Take 1 tablet by mouth once d* SODIUM CHLORIDE 0.9 % INJECTI* Inject 10 mL intravenously ev* SODIUM CHLORIDE 0.9 % INJECTI* Inject 20 mL intravenously as* THIAMINE HCL (VITAMIN B1) 100* Take 1 tablet by mouth once d* Progress Notes: Beata Alfaro PTA, PT ASSIST 06/27/2018 9:45 AM Signed Episode Visit Count: 4 Therapist That Will Oversee The Plan Of Care: Reji Veliz Start of Care Date: 06/09/18 Onset Date: 02/06/18 Plan of Care Certification Date: 06/09/18 REHABILITATION AND SPORTS THERAPY PHYSICAL THERAPY TREATMENT NOTE ASSESSMENT: Jeffrey Cullen Jr. demonstrated difficulty with maintaining a lumbar lordosis with unsupported activities. The patient will continue to benefit from continued skilled physical therapy for progress core stability and gait activities as tolerated, monitor posture and any low back pain PLAN FOR NEXT VISIT: strengthen core and gait activites to address posture and core strength SUBJECTIVE: Pt reports had stomach flu last 3 days tired and weak. Pain Score: 0/10 Post Treatment Pain Score: No Change (fatigued) OBJECTIVE MEASURES WITH LEVEL OF FUNCTION: Seated BP left arm 124/71 mm/hg TREATMENT: Therapeutic Exercise: 1: nu step seat 10 level 5 6 min 2: shuttle bilateral leg press 6 bands 1 min x 2 3: shuttle bilateral leg press with clamshell blue tb 10 x 2 , 5 bands 4: shuttle bilateal plantar flexion,3 bands 10 x attempted single leg right pf unable 5: long sitting pf mckeon tb 10 x 2 r/l* 6: sit to stand with maintaining lumbar lordosis 22 inch height Skilled Intervention: Patient was educated in proper exercise technique and purpose for exercises. Reviewed and educated patient on additions/changes for home exercise program as above (*) Skilled judgment was provided in selection of appropriate interventions. Billing: [place]: Therapeutic Exercise ([id number]): 1:1 time: 45 minutes (3 units: 38-52 mins) Total time: 45 minutes Beata Alfaro PTA PROGRESS Observed: 06/20/2018 Status: COMPLETED Source: [place] 12:55 PM [facility] REPOSITORY HNO ID: [id number] Author: Nadeem (Ot) XU Steele Service: (none) Author Type: Occupational Therapist Type: Progress Notes Filed: 06/20/2018 1:00 PM Note Text: Episode Visit Count: 4 Therapist That Will Oversee The Plan Of Care: Vinnie Steele Start of Care Date: 06/09/18 Onset Date: 02/07/18 Plan of Care Certification Date: 06/09/18 Patient Identified by Name and Date of : Yes REHABILITATION AND SPORTS THERAPY OCCUPATIONAL THERAPY TREATMENT NOTE ASSESSMENT: Jeffrey Cullen Jr. demonstrated difficulty with accumulative finger flexion, hand weakness, hand pain with end range range of motion. The patient will continue to benefit from continued skilled occupational therapy for stretching fingers and wrists, strengthening and reducing pain and stiffness in the hands and fingers PLAN FOR NEXT VISIT: SUBJECTIVE: OT treatment My fingers are really stiff this morning Pain Score: 0/10 OBJECTIVE MEASURES WITH LEVEL OF FUNCTION: IASTM allowed for improved composite flexion of the fingers . Patient reports not being able to squeeze his hands into a fist as well as he did after treatment. Followed up with strengthening. Described technique for performing at home. Education provided on can management department chair/jar management department chair. TREATMENT: Therapeutic Exercise: 1: Issued red tputty 2: gross finger flexion with red tputty 3: tip pinch each finger red tputty 4: 3 point pinch red tputty 5: lateral pinch red tputty 6: finger adduction red tputty Skilled Intervention: Patient was educated in proper exercise technique and purpose for exercises. Skilled judgment was provided in selection of appropriate interventions. Manual Therapy: 1: IASTM to bilateral hands wrists and forearms Skilled Intervention: Manual skills to improve joint mobility, ROM, and decrease pain. Utilized anatomy knowledge of the therapist, and assessment of patient's response to intervention. Billing: [place]: Therapeutic Exercise ([id number]): 1:1 time: 15 minutes (1 unit: 8-22 mins) Manual therapy ([id number]): 1:1 time: 30 minutes (2 units: 23- 37 mins) Total time: 45 minutes XU Diallo PROGRESS Observed: 06/20/2018 Status: COMPLETED Source: [place] 12:05 PM [facility] REPOSITORY HNO ID: [id number] Author: Beata Alfaro PT ASSIST Service: (none) Author Type: Switch Operator Type: Progress Notes Filed: 06/20/2018 12:10 PM Note Text: Episode Visit Count: 3 Therapist That Will Oversee The Plan Of Care: Reji Veliz Start of Care Date: 06/09/18 Onset Date: 02/06/18 Plan of Care Certification Date: 06/09/18 REHABILITATION AND SPORTS THERAPY PHYSICAL THERAPY TREATMENT NOTE ASSESSMENT: Jeffrey Fara Cullen Jr. demonstrated difficulty with strengthening left glut med and improvements in gait on level surface without assistive device. The patient will continue to benefit from continued skilled physical therapy for progress glut strength bilaterally and static and dynamic balance as tolerated PLAN FOR NEXT VISIT: strengthen glut max, bilaterally , and left hip abductor and progress static and dynamic balance to improve gait as tolerated SUBJECTIVE: Pt reports 1 episode of high blood pressure, went to ER, BP decreased to normal. Pt reports difficulty sit to stand from commode. Pain Score: 0/10 Post Treatment Pain Score: No Change OBJECTIVE MEASURES WITH LEVEL OF FUNCTION: Resting BP while sitting cuff on left arm 128 /88 mm/hg TREATMENT: Therapeutic Exercise: 1: nu step seat 10 level 5 6 min 2: sidelying clamshells 10 x each 3: sidelying slr right 10 x left 5 x 4: *sit to stand 19 to 21 inch height with/without ue assist 5: discused progress of glut med strength add slr r le in sidelying left but continue with supine hip abduction right or clamshells Skilled Intervention: Patient was educated in proper exercise technique and purpose for exercises. Reviewed and educated patient on additions/changes for home exercise program as above (*) Gait Trainin: step through gait with spc right hand 20 ' x 3 2: gait without AD, 20 ' x 4 3: gait with rollator up and down ramp 4: Advised pt he can walk without AD on level ground household distances, use rollator on inclines, or with getting up at night to use bathroom Skilled Intervention: Progressing gait to no assistive device. Billing: [place]: Therapeutic Exercise ([id number]): 1:1 time: 30 minutes (2 units: 23-37 mins) Gait Training (60767): 1:1 time: 20 minutes (1 unit: 8-22 mins) Total time: 50 minutes Beata Alfaro PTA CNTHERAPY Observed: 06/20/2018 Status: COMPLETED Source: [place] 11:15 AM [facility] REPOSITORY OT/PT/Speech Visit (LTOT) JEFFREY CULLEN JR. ([id number]) 1950 M [facility] Date Time Provider Department 06/20/18 11:15 AM NADEEM STEELE (OT) LTOT Date Time Provider Department [place] 06/20/2018 11:15 AM [id number], TIMOTHY *LTOT [address] Reason for Visit: Occupational Therapy [504] Primary Visit Diagnosis:Decreased activities of daily living (ADL) [R68.89] Other Visit Diagnoses:Stiffness of right hand joint [M25.641] Stiffness of left hand joint [M25.642] Decreased range of motion of right shoulder [M25.611] Decreased range of motion of left shoulder [M25.612] Allergies As of Date: 06/20/2018 Noted Allergy Reaction BEE STING 04/22/2018 16 - Unknown Date Reviewed: 06/16/2018 Reviewed by: Ursula MoodyRn) RAINA Chino - Fully Assessed Prescriptions as of 06/20/2018 Sig: APIXABAN 5 MG TABLET Take 1 tablet by mouth twice * ACETAMINOPHEN 325 MG TABLET Take 2 tablets by mouth every* LEVETIRACETAM 500 MG TABLET Take 1 tablet by mouth twice * AMIODARONE 100 MG TABLET Take 200 mg by mouth once katerina* FAMOTIDINE 10 MG TABLET Take 20 mg by mouth twice katerina* LISINOPRIL 2.5 MG TABLET Take 2.5 mg by mouth once katerina* NADOLOL 20 MG TABLET Take 40 mg by mouth once janet* VALPROIC ACID ( SODIUM SALT* Take 10 mL by mouth every 8 h* ONDANSETRON HCL (PF) 4 MG/2 M* Inject 4 mg intravenously federica* ATORVASTATIN 40 MG TABLET Take 1 tablet by mouth daily * HALOPERIDOL 2 MG/ML ORAL CONC* Take 2.5 mL by mouth every 6 * ALBUTEROL SULFATE 2.5 MG/3 ML* Use 3 mL via nebulizer every * IPRATROPIUM-ALBUTEROL 0.5 MG-* Inhale 3 mL as instructed fou* METOPROLOL TARTRATE 100 MG TA* Take 1 tablet by mouth every * DILTIAZEM 60 MG TABLET 1 tablet by NASOGASTRIC route* PROPOFOL 10 MG/ML INTRAVENOUS* Inject 1.091-5.455 mg/min int* BUDESONIDE 0.5 MG/2 ML SUSPEN* Use 4 mL via nebulizer twice * METOCLOPRAMIDE 5 MG/ML INJECT* Inject 10 mg intravenously ev* POLYETHYLENE GLYCOL 3350 17 G* Take 1 Packet by mouth once d* SENNOSIDES 8.6 MG-DOCUSATE SO* Take 1 tablet by mouth twice * BISACODYL 10 MG RECTAL SUPPOS* 1 Suppository by RECTAL route* MELATONIN 3 MG TABLET Take 2 tablets by mouth daily* ASPIRIN 81 MG CHEWABLE TABLET Take 1 tablet by mouth once d* SODIUM CHLORIDE 0.9 % INJECTI* Inject 10 mL intravenously ev* SODIUM CHLORIDE 0.9 % INJECTI* Inject 20 mL intravenously as* THIAMINE HCL (VITAMIN B1) 100* Take 1 tablet by mouth once d* Progress Notes: Nadeem Steele, OTR/L, OTR/L 06/20/2018 1:00 PM Signed Episode Visit Count: 4 Therapist That Will Oversee The Plan Of Care: Vinnie Steele Start of Care Date: 06/09/18 Onset Date: 02/07/18 Plan of Care Certification Date: 06/09/18 Patient Identified by Name and Date of : Yes REHABILITATION AND SPORTS THERAPY OCCUPATIONAL THERAPY TREATMENT NOTE ASSESSMENT: Jeffrey Cullen Jr. demonstrated difficulty with accumulative finger flexion, hand weakness, hand pain with end range range of motion. The patient will continue to benefit from continued skilled occupational therapy for stretching fingers and wrists, strengthening and reducing pain and stiffness in the hands and fingers PLAN FOR NEXT VISIT: SUBJECTIVE: OT treatment My fingers are really stiff this morning Pain Score: 0/10 OBJECTIVE MEASURES WITH LEVEL OF FUNCTION: IASTM allowed for improved composite flexion of the fingers . Patient reports not being able to squeeze his hands into a fist as well as he did after treatment. Followed up with strengthening. Described technique for performing at home. Education provided on can management department chair/jar management department chair. TREATMENT: Therapeutic Exercise: 1: Issued red tputty 2: gross finger flexion with red tputty 3: tip pinch each finger red tputty 4: 3 point pinch red tputty 5: lateral pinch red tputty 6: finger adduction red tputty Skilled Intervention: Patient was educated in proper exercise technique and purpose for exercises. Skilled judgment was provided in selection of appropriate interventions. Manual Therapy: 1: IASTM to bilateral hands wrists and forearms Skilled Intervention: Manual skills to improve joint mobility, ROM, and decrease pain. Utilized anatomy knowledge of the therapist, and assessment of patient's response to intervention. Mia: [place]: Therapeutic Exercise ([id number]): 1:1 time: 15 minutes (1 unit: 8-22 mins) Manual therapy ([id number]): 1:1 time: 30 minutes (2 units: 23- 37 mins) Total time: 45 minutes XU Diallo CNTHERAPY Observed: 06/20/2018 Status: COMPLETED Source: [place] 10:00 AM [facility] REPOSITORY OT/PT/Speech Visit (LDPT) JEFFREY CULLEN JR. ([id number]) 1950 M T Date Time Provider Department 06/20/18 10:00 AM BEATA ALFARO ([facility] [employer]) LDPT Date Time Provider Department Center 06/20/2018 10:00 AM [id number], PATRICK *LDPT [address] Reason for Visit: Physical Therapy [503] Primary Visit Diagnosis:Weakness [R53.1] Other Visit Diagnosis:SDH (subdural hematoma) ([facility]) [S06.5X9A] Allergies As of Date: 06/20/2018 Noted Allergy Reaction BEE STING 04/22/2018 16 - Unknown Date Reviewed: 06/16/2018 Reviewed by: Ursula MoodyRn) RAINA Chino - Fully Assessed Prescriptions as of 06/20/2018 Sig: APIXABAN 5 MG TABLET Take 1 tablet by mouth twice * ACETAMINOPHEN 325 MG TABLET Take 2 tablets by mouth every* LEVETIRACETAM 500 MG TABLET Take 1 tablet by mouth twice * AMIODARONE 100 MG TABLET Take 200 mg by mouth once katerina* FAMOTIDINE 10 MG TABLET Take 20 mg by mouth twice katerina* LISINOPRIL 2.5 MG TABLET Take 2.5 mg by mouth once katerina* NADOLOL 20 MG TABLET Take 40 mg by mouth once janet* VALPROIC ACID ( SODIUM SALT* Take 10 mL by mouth every 8 h* ONDANSETRON HCL (PF) 4 MG/2 M* Inject 4 mg intravenously federica* ATORVASTATIN 40 MG TABLET Take 1 tablet by mouth daily * HALOPERIDOL 2 MG/ML ORAL CONC* Take 2.5 mL by mouth every 6 * ALBUTEROL SULFATE 2.5 MG/3 ML* Use 3 mL via nebulizer every * IPRATROPIUM-ALBUTEROL 0.5 MG-* Inhale 3 mL as instructed fou* METOPROLOL TARTRATE 100 MG TA* Take 1 tablet by mouth every * DILTIAZEM 60 MG TABLET 1 tablet by NASOGASTRIC route* PROPOFOL 10 MG/ML INTRAVENOUS* Inject 1.091-5.455 mg/min int* BUDESONIDE 0.5 MG/2 ML SUSPEN* Use 4 mL via nebulizer twice * METOCLOPRAMIDE 5 MG/ML INJECT* Inject 10 mg intravenously ev* POLYETHYLENE GLYCOL 3350 17 G* Take 1 Packet by mouth once d* SENNOSIDES 8.6 MG-DOCUSATE SO* Take 1 tablet by mouth twice * BISACODYL 10 MG RECTAL SUPPOS* 1 Suppository by RECTAL route* MELATONIN 3 MG TABLET Take 2 tablets by mouth daily* ASPIRIN 81 MG CHEWABLE TABLET Take 1 tablet by mouth once d* SODIUM CHLORIDE 0.9 % INJECTI* Inject 10 mL intravenously ev* SODIUM CHLORIDE 0.9 % INJECTI* Inject 20 mL intravenously as* THIAMINE HCL (VITAMIN B1) 100* Take 1 tablet by mouth once d* Progress Notes: Beata Alfaro, JOSTIN, PT ASSIST 06/20/2018 12:10 PM Signed Episode Visit Count: 3 Therapist That Will Oversee The Plan Of Care: Jose Alfredo Reji Start of Care Date: 06/09/18 Onset Date: 02/06/18 Plan of Care Certification Date: 06/09/18 REHABILITATION AND SPORTS THERAPY PHYSICAL THERAPY TREATMENT NOTE ASSESSMENT: Jeffrey Fara Cullen Jr. demonstrated difficulty with strengthening left glut med and improvements in gait on level surface without assistive device. The patient will continue to benefit from continued skilled physical therapy for progress glut strength bilaterally and static and dynamic balance as tolerated PLAN FOR NEXT VISIT: strengthen glut max, bilaterally , and left hip abductor and progress static and dynamic balance to improve gait as tolerated SUBJECTIVE: Pt reports 1 episode of high blood pressure, went to ER, BP decreased to normal. Pt reports difficulty sit to stand from commode. Pain Score: 0/10 Post Treatment Pain Score: No Change OBJECTIVE MEASURES WITH LEVEL OF FUNCTION: Resting BP while sitting cuff on left arm 128 /88 mm/hg TREATMENT: Therapeutic Exercise: 1: nu step seat 10 level 5 6 min 2: sidelying clamshells 10 x each 3: sidelying slr right 10 x left 5 x 4: *sit to stand 19 to 21 inch height with/without ue assist 5: discused progress of glut med strength add slr r le in sidelying left but continue with supine hip abduction right or clamshells Skilled Intervention: Patient was educated in proper exercise technique and purpose for exercises. Reviewed and educated patient on additions/changes for home exercise program as above (*) Gait Trainin: step through gait with spc right hand 20 ' x 3 2: gait without AD, 20 ' x 4 3: gait with rollator up and down ramp 4: Advised pt he can walk without AD on level ground household distances, use rollator on inclines, or with getting up at night to use bathroom Skilled Intervention: Progressing gait to no assistive device. Billing: [place]: Therapeutic Exercise ([id number]): 1:1 time: 30 minutes (2 units: 23-37 mins) Gait Training ([id number]): 1:1 time: 20 minutes (1 unit: 8-22 mins) Total time: 50 minutes Beata AlfaroJOSTIN ED NOTE Observed: 06/16/2018 Status: COMPLETED Source: [place] 10:50 PM [facility] REPOSITORY HNO ID: [id number] Author: Ursula (Rn) RAINA Chino Service: Emergency Medicine Author Type: Registered Nurse Type: ED Notes Filed: 06/16/2018 10:50 PM Note Text: Discharge instructions given. All questions answered, no further questions or concerns. Pt ambulated to lobby with a steady and independent gait with family/friend. ED PROV NOTE Observed: 06/16/2018 Status: COMPLETED Source: [place] 10:49 PM [facility] REPOSITORY HNO ID: [id number] Author: Mami Hedrick DO Service: Emergency Medicine Author Type: Physician Type: ED Provider Notes Filed: 06/16/2018 10:57 PM Note Text: ED Provider Note Patient Name: Jeffrey Cullen Jr. SERVICE DATE: 06/16/18 History Patient presents with: Hypertension Jeffrey Cullen Jr. is a 68 year old male with history of multiple chronic medical problems who presents with Hypertension. Patient took prescription medication prior to arrival. - Symptoms began this evening. - Severity: mild - Timing: once - Quality: no symptoms - Hypertension is exacerbated by nothing. - Hypertension is not exacerbated by anything. - Symptoms are associated with nothing. - Symptoms are not associated with abdominal pain, chest pain, fever, nausea, rash, shortness of breath, URI symptoms, vomiting and headache, vision changes, neck pain. - Improved by prescription medication. Patient states that he is supposed to check his blood pressure 3 times a day and tonight he states that he checked it in his blood pressure was 160/100. He states that this was one hour after taking his night blood pressure medication. He states he had no associated symptoms with it. He states no headache, vision changes, neck pain, chest pain, shortness of breath, abdominal pain. He states it just made him nervous so he came in here to be checked. On arrival his blood pressure has improved and he remains asymptomatic. PAST MEDICAL HISTORY Diagnosis Date - Afib (HCC) - Aneurysm of aorta (HCC) - CAD (coronary artery disease) - Chronic respiratory failure (HCC) - Heart attack (HCC) PAST SURGICAL HISTORY Procedure Laterality Date - CABG (3) VEIN GRAFTS AND ARTERIAL GRAFT(S) 01/2018 - ORTHOPEDICS SURGERY HX - PEG INSERTION_*FL - REPAIR ING HERNIA,5+Y/O,REDUCIBL 1990 Hernia repair, inguinal,left - TRACHEOSTOMY, <2 Y/O FAMILY HISTORY Problem Relation Age of Onset - Alcohol/Drug Father - Colon Cancer Mother - Diabetes Mother Social History Social History Main Topics - Smoking status: Former Smoker Packs/day: 2.00 Years: 25.00 Types: Cigarettes - Smokeless tobacco: Not on file - Alcohol use No - Drug use: No - Sexual activity: Yes Partners: Female ALLERGIES Allergen Reactions - Bee Sting Unknown Review of Systems Constitutional: Negative for chills and fever. HENT: Negative for sore throat and trouble swallowing. Eyes: Negative for photophobia and visual disturbance. Respiratory: Negative for cough and shortness of breath. Cardiovascular: Negative for chest pain, palpitations and leg swelling. Gastrointestinal: Negative for abdominal pain, nausea and vomiting. Genitourinary: Negative for dysuria and flank pain. Musculoskeletal: Negative for back pain and neck pain. Skin: Negative for rash and wound. Allergic/Immunologic: Negative for immunocompromised state. Neurological: Negative for dizziness, syncope, speech difficulty, weakness, numbness and headaches. Psychiatric/Behavioral: Negative for agitation and confusion. Physical Exam BP 132/70 Pulse 61 Temp (Src) 98 (Oral) Resp 21 Ht 5' 10 (1.78m) Wt 200 lb (90.7kg) SpO2 98% BMI 28.70 kg/(m2). Physical Exam Constitutional: He is oriented to person, place, and time. He appears well-developed and well-nourished. No distress. HENT: Head: Normocephalic and atraumatic. Mouth/Throat: Oropharynx is clear and moist. Eyes: Conjunctivae and EOM are normal. Pupils are equal, round, and reactive to light. Right eye exhibits no discharge. Left eye exhibits no discharge. No scleral icterus. Neck: Normal range of motion. No JVD present. Cardiovascular: Normal rate, regular rhythm and intact distal pulses. Pulmonary/Chest: Effort normal and breath sounds normal. No stridor. No respiratory distress. Abdominal: Soft. Bowel sounds are normal. He exhibits no distension. There is no tenderness. Musculoskeletal: Normal range of motion. Neurological: He is alert and oriented to person, place, and time. He has normal strength. No cranial nerve deficit or sensory deficit. He exhibits normal muscle tone. GCS eye subscore is 4. GCS verbal subscore is 5. GCS motor subscore is 6. Skin: Skin is warm and dry. Capillary refill takes less than 2 seconds. No rash noted. He is not diaphoretic. Psychiatric: He has a normal mood and affect. His behavior is normal. Nursing note and vitals reviewed. Diagnostic Testing ED Labs Ordered and Reviewed - No data to display Procedures ED Course / Clinical Impression Clinical Impressions as of Jun 16 2249 One Elevated blood pressure reading with diagnosis of hypertension MDM / Disposition / Plan Patient presents with one elevated blood pressure reading at home. He checks his blood pressure 3 times a day. He has not had previous elevated readings like this. He notes he had no symptoms with the one elevated blood pressure reading. Patient is neurologically intact, vitals stable. Blood pressure improved on arrival from his reading at home. Patient feels comfortable going home and continue to monitor his blood pressure and will return to the emergency department if there is any changes in his blood pressure or if he develops any symptoms, otherwise he is to follow-up with his primary physician. Disposition The patient was discharged. Counseled patient (his friend) regarding suspected diagnosis. As well as the need for follow-up. Discharged home with verbal and written instructions. They were instructed to return as needed for persistent or worsening symptoms or any new concerns. Condition at disposition is stable. SIGNATURE: DO Mami Vickers DO 06/16/18 2257 ED NOTE Observed: 06/16/2018 Status: COMPLETED Source: [place] 10:10 PM [facility] REPOSITORY HNO ID: [id number] Author: Ursula Johnson) RAINA Chino Service: Emergency Medicine Author Type: Registered Nurse Type: ED Notes Filed: 06/16/2018 10:11 PM Note Text: Pt taking blood pressure at home and it's been high. 160/100. Hx of mi and aaa repair this year with extensive rehab. CNTHERAPY Observed: 06/16/2018 Status: COMPLETED Source: [place] 8:00 AM [facility] REPOSITORY OT/PT/Speech Visit (LTOT) JEFFREY CULLEN JR. ([id number]) 1950 M CHT Date Time Provider Department 06/16/18 8:00 AM NADEEM STEELE (OT) LTOT Date Time Provider Department [place] 06/16/2018 8:00 AM [id number], TIMOTHY *LTOT [address] Reason for Visit: Occupational Therapy [504] Primary Visit Diagnosis:Decreased activities of daily living (ADL) [R68.89] Other Visit Diagnoses:Stiffness of right hand joint [M25.641] Stiffness of left hand joint [M25.642] Decreased range of motion of right shoulder [M25.611] Decreased range of motion of left shoulder [M25.612] Weakness [R53.1] Allergies As of Date: 06/16/2018 Noted Allergy Reaction BEE STING 04/22/2018 16 - Unknown Date Reviewed: 04/26/2018 Reviewed by: Sheila MoodyRn) RAINA Jones - Fully Assessed Prescriptions as of 06/16/2018 Sig: APIXABAN 5 MG TABLET Take 1 tablet by mouth twice * ACETAMINOPHEN 325 MG TABLET Take 2 tablets by mouth every* LEVETIRACETAM 500 MG TABLET Take 1 tablet by mouth twice * AMIODARONE 100 MG TABLET Take 200 mg by mouth once katerina* FAMOTIDINE 10 MG TABLET Take 20 mg by mouth twice katerina* LISINOPRIL 2.5 MG TABLET Take 2.5 mg by mouth once katerina* NADOLOL 20 MG TABLET Take 40 mg by mouth once janet* VALPROIC ACID ( SODIUM SALT* Take 10 mL by mouth every 8 h* ONDANSETRON HCL (PF) 4 MG/2 M* Inject 4 mg intravenously federica* ATORVASTATIN 40 MG TABLET Take 1 tablet by mouth daily * HALOPERIDOL 2 MG/ML ORAL CONC* Take 2.5 mL by mouth every 6 * ALBUTEROL SULFATE 2.5 MG/3 ML* Use 3 mL via nebulizer every * IPRATROPIUM-ALBUTEROL 0.5 MG-* Inhale 3 mL as instructed fou* METOPROLOL TARTRATE 100 MG TA* Take 1 tablet by mouth every * DILTIAZEM 60 MG TABLET 1 tablet by NASOGASTRIC route* PROPOFOL 10 MG/ML INTRAVENOUS* Inject 1.091-5.455 mg/min int* BUDESONIDE 0.5 MG/2 ML SUSPEN* Use 4 mL via nebulizer twice * METOCLOPRAMIDE 5 MG/ML INJECT* Inject 10 mg intravenously ev* POLYETHYLENE GLYCOL 3350 17 G* Take 1 Packet by mouth once d* SENNOSIDES 8.6 MG-DOCUSATE SO* Take 1 tablet by mouth twice * BISACODYL 10 MG RECTAL SUPPOS* 1 Suppository by RECTAL route* MELATONIN 3 MG TABLET Take 2 tablets by mouth daily* ASPIRIN 81 MG CHEWABLE TABLET Take 1 tablet by mouth once d* SODIUM CHLORIDE 0.9 % INJECTI* Inject 10 mL intravenously ev* SODIUM CHLORIDE 0.9 % INJECTI* Inject 20 mL intravenously as* THIAMINE HCL (VITAMIN B1) 100* Take 1 tablet by mouth once d* Progress Notes: Nadeem Steele, OTR/L, OTR/L 06/16/2018 10:27 AM Signed Episode Visit Count: 3 Therapist That Will Oversee The Plan Of Care: Vinnie Steele Start of Care Date: 06/09/18 Onset Date: 02/07/18 Plan of Care Certification Date: 06/09/18 Patient Identified by Name and Date of : Yes REHABILITATION AND SPORTS THERAPY OCCUPATIONAL THERAPY TREATMENT NOTE ASSESSMENT: Jeffrey Cullen Jr. demonstrated difficulty with wrist and finger range of motion, tingling across the fingers. The patient will continue to benefit from continued skilled occupational therapy for stretching of the wrists and fingers in order to allow for improved movement to allow for return to functional activity and leisure skills PLAN FOR NEXT VISIT: SUBJECTIVE: OT treatment Complaint of tingling across the proximal phallynx Pain Score: 0/10 OBJECTIVE MEASURES WITH LEVEL OF FUNCTION: Demonstrated fair understanding of new exercises for home program. Required Min cuing for correct technique. Discussed techniques for prolonged stretching of the fingers to allow for increased ROM allowing for improved ADL function. TREATMENT: Therapeutic Exercise: 1:* Wrist extension finger extension stretch 2:* Wrist flexion/finger flexion stretch 3:* Wrist extension/finger extension/ finger abduction stretch 4:* 5 positions flexor tendon gliding exercises 5:* DIP finger flexion stretch 6:* Isolated finger flexion stretch 7:* Isolated finger extension stretch Skilled Intervention: Patient was educated in proper exercise technique and purpose for exercises. Reviewed and educated patient on additions/changes for home exercise program as above (*) Skilled judgment was provided in selection of appropriate interventions. Provided written instruction for home exercise program to facilitate proper performance and compliance. Billing: [place]: Therapeutic Exercise ([id number]): 1:1 time: 45 minutes (3 units: 38-52 mins) Total time: 45 minutes XU Diallo PROGRESS Observed: 06/16/2018 Status: COMPLETED Source: [place] 7:59 AM [facility] REPOSITORY O ID: [id number] Author: XU Diallo Ot Service: (none) Author Type: Occupational Therapist Type: Progress Notes Filed: 06/16/2018 10:27 AM Note Text: Episode Visit Count: 3 Therapist That Will Oversee The Plan Of Care: Vinnie Steele Start of Care Date: 06/09/18 Onset Date: 02/07/18 Plan of Care Certification Date: 06/09/18 Patient Identified by Name and Date of : Yes REHABILITATION AND SPORTS THERAPY OCCUPATIONAL THERAPY TREATMENT NOTE ASSESSMENT: Jeffrey Cullen Jr. demonstrated difficulty with wrist and finger range of motion, tingling across the fingers. The patient will continue to benefit from continued skilled occupational therapy for stretching of the wrists and fingers in order to allow for improved movement to allow for return to functional activity and leisure skills PLAN FOR NEXT VISIT: SUBJECTIVE: OT treatment Complaint of tingling across the proximal phallynx Pain Score: 0/10 OBJECTIVE MEASURES WITH LEVEL OF FUNCTION: Demonstrated fair understanding of new exercises for home program. Required Min cuing for correct technique. Discussed techniques for prolonged stretching of the fingers to allow for increased ROM allowing for improved ADL function. TREATMENT: Therapeutic Exercise: 1:* Wrist extension finger extension stretch 2:* Wrist flexion/finger flexion stretch 3:* Wrist extension/finger extension/ finger abduction stretch 4:* 5 positions flexor tendon gliding exercises 5:* DIP finger flexion stretch 6:* Isolated finger flexion stretch 7:* Isolated finger extension stretch Skilled Intervention: Patient was educated in proper exercise technique and purpose for exercises. Reviewed and educated patient on additions/changes for home exercise program as above (*) Skilled judgment was provided in selection of appropriate interventions. Provided written instruction for home exercise program to facilitate proper performance and compliance. Billing: [place]: Therapeutic Exercise ([id number]): 1:1 time: 45 minutes (3 units: 38-52 mins) Total time: 45 minutes Nadeem Steele OTR/L INTERNAL MEDICINE Observed: 06/14/2018 Status: F Source: [place] OFFICE VISIT 10:12 AM [facility] [address] [place] [address] [address] [place] [address] OFFICE VISIT Date of Service: 06/14/18 MR#: [id number] Acct: [id number] Name: JEFFREY CULLEN Rep #: [id number] : 1950 Provider: Richie De La Torre DO Age/Sex: 68/M Location: [facility] Status: Signed Intake Vital Signs06/14/18 Height 5 ft 10 in Intake Visit Reasons: S/P CABG Chief Complaint: follow-up CABG Is patient in pain?: No Allergies No Known Allergies Allergy (Unverified 06/07/18 09:14) Medications amiodarone 200 mg tablet 200 mg PO QDAY #30 tab 06/07/18 [Rx Confirmed 06/14/18] atorvastatin 40 mg tablet 40 mg PO QDAY #90 tab 06/07/18 [Rx Confirmed 06/14/18] famotidine 20 mg tablet 20 mg PO QDAY #30 tab 06/07/18 [Rx Confirmed 06/14/18] gabapentin 100 mg capsule 100 mg PO BID #60 cap 06/07/18 [Rx Confirmed 06/14/18] lisinopril 20 mg tablet 20 mg PO QDAY #90 tab 06/07/18 [Rx Confirmed 06/14/18] nadolol 40 mg tablet 40 mg PO QDAY #30 tab 06/07/18 [Rx Confirmed 06/14/18] quetiapine 25 mg tablet 12.5 mg PO QHS #30 tab 06/07/18 [Rx Confirmed 06/14/18] sennosides 8.6 mg-docusate sodium 50 mg tablet 1 tab PO QDAY PRN #60 tab 06/07/18 [Rx Confirmed 06/14/18] sertraline 100 mg tablet 100 mg PO QDAY #90 tab 06/07/18 [Rx Confirmed 06/14/18] trazodone 50 mg tablet 50 mg PO QHS PRN #30 tab 06/07/18 [Rx Confirmed 06/14/18] valproic acid 250 mg capsule 250 mg PO TID #90 cap 06/07/18 [Rx Confirmed 06/14/18] diltiazem CD 180 mg capsule,extended release 24 hr 180 mg PO QDAY 06/14/18 [History Confirmed 06/14/18] PFSH Medical History Traumatic subarachnoid hemorrhage with loss of consciousness (Acute) Encephalopathy (Chronic) Osteoarthritis (Chronic) Insomnia (Acute) COPD (chronic obstructive pulmonary disease) (Chronic) Atherosclerotic heart disease (Chronic) Depression (Chronic) Hyperlipemia (Chronic) Hypertension (Chronic) Surgical History History of coronary artery bypass graft (Acute) History of right knee joint replacement (Acute) Family History Mother Hypertension Colon cancer Father Hypertension Social History Smoking Status: Former smoker how long ago did patient quit smokin alcohol intake: never what type of physical activity do you participate in: none HPI HPI Chief Complaint: follow-up CABG Details: JEFFREY CULLEN, is a 68 M who presents to the office today for review of medications. ROS Const Constitutional: Positive for weakness; no weight change, body ache, chills, fatigue, sleep problems, fever(s), change in appetite, snoring, frequent falls, headache(s) or excessive sweating Eyes Eyes: No change in vision, eye pain, light sensitivity or blurry vision ENT ENT: No headache(s), abnormal hearing, ear pain, tinnitus, nasal congestion, sore throat or neck pain Resp Respiratory: No snoring, cough, shortness of breath or wheezing Cardio Cardiology: No excessive sweating, chest pain at rest, chest pain with exertion, shortness of breath, dyspnea on exertion, palpitations, orthopnea or lightheadedness Gastro GI: No abdominal pain, change in bowel habits, constipation, diarrhea, vomiting, nausea/dyspepsia or cramping Genitourinary Male: No painful urination, urinary incontinence, urinary frequency, urinary urgency, blood in urine, testicle pain or other Musc Musculoskeletal: Positive for numbness and tingling (hands); no neck pain, abnormal walking, joint pain, back pain or limited range of motion Skin Skin: No redness, dry skin, itching, lesions, wounds or rash Neuro Neurology: Positive for weakness, numbness and tingling (hands); no frequent falls, headache(s), abnormal hearing, abnormal walking, abnormal speech, dizziness or memory loss Psych Psychiatric: No change in appetite, No memory loss, No anxiety, No depression, No Thoughts of harming yourself/Others Endo Endocrine: No fatigue, excessive sweating, cold intolerance, increased thirst/drinking, heat intolerance, flushing or increased hunger Aller/Imm Allergy/Immunologic: No wheezing, itchy eyes, hives or seasonal allergy symptoms Lukasz/Lymp Hematologic/Lymphatic: No easy bleeding, easy bruising or enlarged lymph nodes Exam Const General: cooperative Nutritional Appearance: well nourished Orientation: oriented x3 Neck Neck: other (Small scar where traceostomy was, looks well healed) Neck mass: No Thyroid: thyroid normal Resp Effort AND Inspection: symmetric chest movement Auscultation: Bilateral: Clear to Auscultation Cardio Rate: regular rate Rhythm: regular rhythm Heart Sounds: S1 normal, S2 normal Psych Appearance: grossly normal Mental Status: mental status grossly normal Affect: labile affect Speech and Movement: speech and movement normal Attitude: cooperative Thought Process: normal Judgment: fair Assessment AND Plan 1. Atherosclerotic heart disease I25.10 Plan Patient is in cardiac rehab other than labile blood pressures he is completing rehab quite well. 2. COPD (chronic obstructive pulmonary disease) J44.9 Plan This patient has stopped cigarette smoking he was a 2-3 pack smoker every day. He finds it difficult to abstain but he realizes he will not be able to survive very long if he continues to smoke. 3. Traumatic subarachnoid hemorrhage with loss of consciousness S06.6X9A Plan Patient has no residual defect from his subarachnoid hemorrhage. 4. Encephalopathy G93.40 Plan Apparently this patient had some psychiatric problems related to the encephalopathy related to subarachnoid hemorrhage but right now he has no delusions his thought processes are clear and because of that we have stopped some of the medicines such as the Seroquel and the trazodone because it is making his thoughts fuzzy rather than clarifying things. 5. Hyperlipemia E78.5 Plan Patient's statin medications were renewed. 6. Hypertension I10 Plan At this time the blood pressure is stable in the office he reports highs and lows at home but does not bring a log with him I encouraged him to blood pressure log taking it 3 times a day morning afternoon and evening write it down and bring it with him at the next appointment but for now I think his blood pressure is adequately adequately controlled and is probably erroneous readings at home that are causing the problems. Plan Detail Other Medications Discontinued: Follow Up 6 Weeks Coding Level of Care Code Off vis,est,level 3 Medical Decision Making High Complexity Diagnoses Atherosclerotic heart disease I25.10 COPD (chronic obstructive pulmonary disease) J44.9 Traumatic subarachnoid hemorrhage with loss of consciousness S06.6X9A Encephalopathy G93.40 Hyperlipemia E78.5 Hypertension I10 Time Spent (min) 20 06/14/18 1012 <Electronically signed by Richie De La Torre DO> Date Richie De La Torre DO Cosigner Signature: Date (if applicable) CC: PROGRESS Observed: 06/13/2018 Status: COMPLETED Source: [place] 10:51 AM [facility] [place] REPOSITORY O ID: [id number] Author: Beata Alfaro PT ASSIST Service: (none) Author Type: Switch Operator Type: Progress Notes Filed: 06/13/2018 10:56 AM Note Text: Episode Visit Count: 2 Therapist That Will Oversee The Plan Of Care: Reji Veliz Start of Care Date: 06/09/18 Onset Date: 02/06/18 Plan of Care Certification Date: 06/09/18 Patient Identified by Name and Date of : Yes REHABILITATION AND SPORTS THERAPY PHYSICAL THERAPY TREATMENT NOTE ASSESSMENT: Jeffrey Cullen Jr. demonstrated difficulty with use of glut max and core with sit to stand and improvements in overall use of core muscles without causing back pain The patient will continue to benefit from continued skilled physical therapy for core stability trail gait with single point cane or without assistive device PLAN FOR NEXT VISIT: Progress le strength, core stability, trial gait with spc or without assistive device. SUBJECTIVE: my legs feel like jello Pain Score: 0/10 Post Treatment Pain Score: No Change OBJECTIVE MEASURES WITH LEVEL OF FUNCTION: Pt Initially without lumbar lordosis with sit to stand transfer TREATMENT: Therapeutic Exercise: 1: nustep seat 10 level5 5 min ue/le 2: *Bridgin hold, x10 3: supine hip abduction orange tb 10 xr/l * 4: hooklying lower trunk rotation 10 x r/l with abdominal brace 5: supine leg press* 5 sec 10 x r/l 6: sit to stand without ue support 10 x , 10 x pushing into heels to activate gluts Skilled Intervention: Patient was educated in proper exercise technique and purpose for exercises. Reviewed and educated patient on additions/changes for home exercise program as above (*) Billing: Carmelo: Therapeutic Exercise (49512): 1:1 time: 45 minutes (3 units: 38-52 mins) Total time: 45 minutes Beata Alfaro PTA CNTHERAPY Observed: 06/13/2018 Status: COMPLETED Source: [place] 7:45 AM [facility] REPOSITORY OT/PT/Speech Visit (LDPT) JEFFREY CULLEN JR. ([id number]) 1950 M CHT Date Time Provider Department 06/13/18 7:45 AM BEATA ALFARO (JOSTIN) LDPT Date Time Provider Department Center 06/13/2018 7:45 AM [id number], BEATA *LDPT [facility] [address] Reason for Visit: Physical Therapy [503] Primary Visit Diagnosis:Weakness [R53.1] Other Visit Diagnosis:SDH (subdural hematoma) ([facility]) [S06.5X9A] Allergies As of Date: 06/13/2018 Noted Allergy Reaction BEE STING 04/22/2018 16 - Unknown Date Reviewed: 04/26/2018 Reviewed by: Sheila (Rn) RAINA Jones - Fully Assessed Prescriptions as of 06/13/2018 Sig: APIXABAN 5 MG TABLET Take 1 tablet by mouth twice * ACETAMINOPHEN 325 MG TABLET Take 2 tablets by mouth every* LEVETIRACETAM 500 MG TABLET Take 1 tablet by mouth twice * AMIODARONE 100 MG TABLET Take 200 mg by mouth once katerina* FAMOTIDINE 10 MG TABLET Take 20 mg by mouth twice katerina* LISINOPRIL 2.5 MG TABLET Take 2.5 mg by mouth once katerina* NADOLOL 20 MG TABLET Take 40 mg by mouth once janet* VALPROIC ACID ( SODIUM SALT* Take 10 mL by mouth every 8 h* ONDANSETRON HCL (PF) 4 MG/2 M* Inject 4 mg intravenously federica* ATORVASTATIN 40 MG TABLET Take 1 tablet by mouth daily * HALOPERIDOL 2 MG/ML ORAL CONC* Take 2.5 mL by mouth every 6 * ALBUTEROL SULFATE 2.5 MG/3 ML* Use 3 mL via nebulizer every * IPRATROPIUM-ALBUTEROL 0.5 MG-* Inhale 3 mL as instructed fou* METOPROLOL TARTRATE 100 MG TA* Take 1 tablet by mouth every * DILTIAZEM 60 MG TABLET 1 tablet by NASOGASTRIC route* PROPOFOL 10 MG/ML INTRAVENOUS* Inject 1.091-5.455 mg/min int* BUDESONIDE 0.5 MG/2 ML SUSPEN* Use 4 mL via nebulizer twice * METOCLOPRAMIDE 5 MG/ML INJECT* Inject 10 mg intravenously ev* POLYETHYLENE GLYCOL 3350 17 G* Take 1 Packet by mouth once d* SENNOSIDES 8.6 MG-DOCUSATE SO* Take 1 tablet by mouth twice * BISACODYL 10 MG RECTAL SUPPOS* 1 Suppository by RECTAL route* MELATONIN 3 MG TABLET Take 2 tablets by mouth daily* ASPIRIN 81 MG CHEWABLE TABLET Take 1 tablet by mouth once d* SODIUM CHLORIDE 0.9 % INJECTI* Inject 10 mL intravenously ev* SODIUM CHLORIDE 0.9 % INJECTI* Inject 20 mL intravenously as* THIAMINE HCL (VITAMIN B1) 100* Take 1 tablet by mouth once d* Progress Notes: Beata Alfaro PTA, PT ASSIST 06/13/2018 10:56 AM Signed Episode Visit Count: 2 Therapist That Will Oversee The Plan Of Care: Reji Veliz Start of Care Date: 06/09/18 Onset Date: 02/06/18 Plan of Care Certification Date: 06/09/18 Patient Identified by Name and Date of : Yes REHABILITATION AND SPORTS THERAPY PHYSICAL THERAPY TREATMENT NOTE ASSESSMENT: Jeffrey Cullen Jr. demonstrated difficulty with use of glut max and core with sit to stand and improvements in overall use of core muscles without causing back pain The patient will continue to benefit from continued skilled physical therapy for core stability trail gait with single point cane or without assistive device PLAN FOR NEXT VISIT: Progress le strength, core stability, trial gait with spc or without assistive device. SUBJECTIVE: my legs feel like jello Pain Score: 0/10 Post Treatment Pain Score: No Change OBJECTIVE MEASURES WITH LEVEL OF FUNCTION: Pt Initially without lumbar lordosis with sit to stand transfer TREATMENT: Therapeutic Exercise: 1: nustep seat 10 level5 5 min ue/le 2: *Bridgin hold, x10 3: supine hip abduction orange tb 10 xr/l * 4: hooklying lower trunk rotation 10 x r/l with abdominal brace 5: supine leg press* 5 sec 10 x r/l 6: sit to stand without ue support 10 x , 10 x pushing into heels to activate gluts Skilled Intervention: Patient was educated in proper exercise technique and purpose for exercises. Reviewed and educated patient on additions/changes for home exercise program as above (*) Billing: Carmelo: Therapeutic Exercise (07747): 1:1 time: 45 minutes (3 units: 38-52 mins) Total time: 45 minutes Beata Alfaro PTA PROGRESS Observed: 06/09/2018 Status: COMPLETED Source: [place] 4:28 PM [facility] REPOSITORY HNO ID: [id number] Author: Reji (Pt) Jose Alfredo Service: (none) Author Type: Physical Therapist Type: Progress Notes Filed: 06/09/2018 4:36 PM Note Text: Episode Visit Count: 2 Therapist That Will Oversee The Plan Of Care: Reji Veliz Start of Care Date: 06/09/18 Onset Date: 02/06/18 Plan of Care Certification Date: 06/09/18 Patient Identified by Name and Date of : Yes REHABILITATION AND SPORTS THERAPY PHYSICAL THERAPY EVALUATION PLAN OF CARE: Assessment: Jeffrey Cullen Jr. presents with the diagnosis of lower extremity weakness stemming from prolonged bed-ridden due to an 8 week long coma and subsequent brain injury suffered in a fall. He presents with impairments of decreased strength, balance, antalgic gait and increase. He may benefit from skilled therapy services to improve strength and balance and reduce risk of falling. Due to the multiple co-morbidities and recent bypass surgery followed by a prolonged coma, this client presents with moderate level of involvement. Prognosis: Good Good due to: Prognosis may be limited Prognosis may be limited by: multiple co- morbidities Goals for Episode of Care: created on 06/09/18 through 08/08/18 [place] in home exercise program. Patient will demonstrate 5/5 strength through BLE to facilitate gait and improve safety. Demonstrate improvement on functional score: Patient will improve his/her AM-PAC T-scale score by 4 points to indicate a Minimal Clinical Important Difference . Scored 53.12 at initial evaluation Reciprocal stair negotiation. G CODE REPORTING Based on clinical assessment and the score on the AM-PAC Scale Score Assessment Tool, the G code and corresponding severity modifiers are documented below. Evaluation: 06/09/2018 Current Status: Mobility: Walking and Moving Around: G8978 CK 40-59% impaired Goal Status: Mobility: Walking and Moving Around: G8979 CJ 20-39% impaired Planned Interventions, Frequency, and Duration: Current Frequency: 2x/week Duration: 4 weeks Total Number of Visits Planned: 16 Planned Treatment Interventions: Therapeutic exercise;Neuromuscular re-education;Manual therapy;Therapeutic activities;Self-usp management;Gait Training;Patient/Family/Caregiver Education;Body Mechanics Training;Functional training PLAN FOR NEXT VISIT: Progress with trunk stabilization and LE strengthening to facilitate pre-gait activities Patient demonstrates good understanding of plan of care and treatment. The above goals and plan of care were discussed and agreed upon by patient/family. SUBJECTIVE: Jeffrey Cullen Jr. is a 68 year old male seen today for had an UT, went for 3x bypass and had complications which left him in a coma x8 weeks. Fell out of a wc, suffered a bleed. was in hospital till 06/02/18. Functional Limitations: rising from a chair;standing;walking;stair negotiation;lifting Prior Level of Function: Independent without limitations Patient Goals: to strengthen the LEs Intake Information: Prescription present Previous Treatment: Pain meds?;Surgery?;Acute Rehab?;Acute Hospital?;SNF? Falls Interview: Two or more falls in the last year;Fall with injury in the last year Pain Score: 0/10 OBJECTIVE MEASURES WITH LEVEL OF FUNCTION: Gait Gait: Independent Gait Device: None Gait Deviations: General Deviations General Gait Deviations: Narrow Base of Support;Lateral sway increased;Difficulty changing direction/turning;Loss of Balance LE Strength R Hip Flexion (L2): 4+/5 R Knee Extension (L3): 5/5 R Knee Flexion: 5/5 R Ankle Dorsiflexion (L4): 5/5 L Hip Flexion (L2): 4+/5 L Knee Extension (L3): 5/5 L Knee Flexion: 5/5 L Ankle Dorsiflexion (L4): 5/5 5 Times Sit to Stand Test : 37.2 sec Timed Up and Go (sec): 15.1 sec Education: Education Learning Preferences: Demonstration;Performance;Printed Materials Barriers: None Learning/educational needs: Home exercise program;Plan of Care;Safety;Posture;Gait Training;Body Mechanics Education Provided: Yes, see treatment interventions for education provided Education Provided To: Patient Education Mode/Type: Explanation/Discussion;Literature/Printed Materials;Performance Response to Education/Teach Back: Return Demonstration;States/Identifies TREATMENT: Evaluation Evaluation Therapeutic Exercise: 1: *Bridgin hold, x10 2: *sidelying clamshell: 30 hold, 3xB 3: discussed clinical findings and course of rehab. Discussed the possible use of a cane for improved safety due to risk of falling Skilled Intervention: Patient was educated in proper exercise technique and purpose for exercises. Reviewed and educated patient on additions/changes for home exercise program as above (*) Skilled judgment was provided in selection of appropriate interventions. Patient education as noted. Billing: Carmelo: Evaluation - Moderate Complexity (97059) Therapeutic Exercise (57164): 1:1 time: 25 minutes (2 units: 23-37 mins) Total time: 45 minutes Reji Veliz PT PROGRESS Observed: 06/09/2018 Status: COMPLETED Source: [place] 2:26 PM [facility] REPOSITORY HNO ID: [id number] Author: Nadeem (Ot) HEATHER Steele/Fara Service: (none) Author Type: Occupational Therapist Type: Progress Notes Filed: 06/09/2018 3:57 PM Note Text: Episode Visit Count: 1 Therapist That Will Oversee The Plan Of Care: Vinnie Steele Start of Care Date: 06/09/18 Onset Date: 02/07/18 Plan of Care Certification Date: 06/09/18 Patient Identified by Name and Date of : Yes Rehab Precautions: HTN;Cardiac;Fall Risk;Seizure Precaution/Activity Restriction Comments: lifting restrictions Surgical Procedure: CABG x3 vessels Surgical Procedure Date: 02/07/18 [facility] REHABILITATION AND SPORTS THERAPY OCCUPATIONAL THERAPY EVALUATION PLAN OF CARE: Assessment: Jeffrey Chaudhari Subhash Galdamez presents with the diagnosis of weakness of the arms. He presents with impairments of limited bilateral shoulder range of motion, limited range of motion to the bilateral wrists and fingers, impaired ADL and IADL ability, decreased leiure. He may benefit from skilled occupational therapy services to improve ROM to BUE throughout for improved ADL/IADL function, decrease edema in bilateral hands, improve coordination. Prognosis: Fair Fair due to: multiple co- morbidities;limited support system Goals for Episode of Care created on 06/09/18 through 09/01/18 Patient will complete HEP at [place] level. Patient will increase active ROM of bilateral hands and shoulders to WFL to allow patient to improved performance of ADLs. 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 Patient will report a good understanding of edema control techniques Patient will improve his/her AM-PAC T-scale score by 4 points to indicate a Minimal Clinical Important Difference Patient to increase ADL and IADL tasks to at least Modified Independent For previously completed tasks G CODE REPORTING Based on clinical assessment and the score on the AM-PAC Scale Score Assessment Tool, the G code and corresponding severity modifiers are documented below. Evaluation: 06/09/2018 Current Status: Self-Care: G8987 CL 60-79% impaired Goal Status: Self-Care: G8988 CK 40-59% impaired Planned Interventions, Frequency, and Duration: Current Frequency: 2x/week Duration: 12 weeks Total Number of Visits Planned: 20 Planned Treatment Interventions: Therapeutic exercise;Therapeutic activities;Manual therapy;Neuromuscular re-education;Modalities;Self-usp management;Patient/Family/Caregiver EducationUltrasound PLAN FOR NEXT VISIT: begin HEP Patient demonstrates fair understanding of plan of care and treatment. The above goals and plan of care were discussed and agreed upon by patient/family. SUBJECTIVE: Jeffrey Cullen Jr. is a 68 year old male seen today for Prior Level of Function: Independent without limitations Intake Information: Prescription present Previous Treatment: Acute Rehab? 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 Home Type: [place] Entry To Home: Stairs;With Rail Number Of Stairs Into Home: 5 Tub/Shower Type: Combo Laundry: laundormat Equipment Owned: Rollator;Wheeled Walker Pain Score: 0/10 Post Treatment Pain Score: 0/10 OBJECTIVE MEASURES WITH LEVEL OF FUNCTION: Hand Evaluation Shoulder AROM: Limitations as noted Limitations as noted: Bilateral Elbow/Wrist AROM: Limitations as noted Limitations as noted: Bilateral Hand AROM: Limitations as noted Limitations as noted: Bilateral Strength: Manual Muscle Testing;Pinch Meter;Dynamometer / Combustion Analyst R Combustion Analyst Position 2 (lbs): 20 lbs L Combustion Analyst Position 2 (lbs): 9 lbs R Lateral Pinch (lbs): 8 lbs L Lateral Pinch (lbs): 7 lbs Dexterity/Coordination: Fine Motor Hand AROM R Index Finger MP Extension: -40 Degrees R Index Finger MP Flexion: 72 Degrees R Index Finger PIP Extension : -25 Degrees R Index Finger PIP Flexion: 72 Degrees R Index Finger DIP Flexion: 50 Degrees R Middle Finger MP Flexion : 70 Degrees R Middle Finger PIP Extension: -30 Degrees R Middle Finger PIP Flexion : 76 Degrees R Middle Finger DIP Flexion : 45 Degrees R Ring Finger MP Flexion : 67 Degrees R Ring Finger PIP Extension: 25 Degrees R Ring Finger PIP Flexion : 77 Degrees R Ring Finger DIP Extension: 40 Degrees R Little Finger MP Flexion : 70 Degrees R Little Finger PIP Flexion : 80 Degrees R Little Finger DIP Flexion : 45 Degrees L Index Finger MP Flexion: 55 Degrees L Index Finger PIP Extension : -35 Degrees L Index Finger PIP Flexion : 75 Degrees L Index Finger DIP Flexion: 36 Degrees L Middle Finger MP Flexion: 70 Degrees L Middle Finger PIP Extension: -30 Degrees L Middle Finger PIP Flexion : 75 Degrees L Middle Finger DIP Flexion : 35 Degrees L Ring Finger MP Flexion : 42 Degrees L Ring Finger PIP Extension : -30 Degrees L Ring Finger PIP Flexion : 71 Degrees L Ring Finger DIP Flexion : 35 Degrees L Little Finger MP Flexion : 47 Degrees L Little Finger PIP Flexion : 55 Degrees L Little Finger DIP Flexion: 60 Degrees UE AROM R Shoulder Flex: 80 Degrees R Shoulder ABduction: 77 Degrees L Shoulder Flex: 74 Degrees L Shoulder ABduction: 75 Degrees UE PROM R Shoulder Flex: 95 Degrees R Shoulder ABduction: 93 Degrees L Shoulder Flex: 89 Degrees L Shoulder ABduction: 90 Degrees UE and Cervical Strength R Shoulder Flexion: 2-/5 R Shoulder Abduction (C5): 2-/5 R Shoulder Internal Rotation: 3-/5 R Shoulder External Rotation: 3-/5 L Shoulder Flexion: 2-/5 L Shoulder Abduction (C5): 2-/5 L Shoulder Internal Rotation: 3-/5 L Shoulder External Rotation: 3-/5 Current Activities Of Daily Living Feeding: Stand By Assistance (cutting food) Grooming: Modified Independent Bathing Upper Body: Minimal Assistance Bathing Lower Body: Minimal Assistance Dressing Upper Body: Moderate Assistance Dressing Lower Body: Moderate Assistance Toileting: Minimal Assistance Instrumental Activities of Daily Living Meal/Beverage Prep: Minimal Assistance Cooking: Moderate Assistance (Able to prepare simple meals) Cleaning: Total Assistance Laundry: Total Assistance Education: Education Learning Preferences: Demonstration;Explanation;Performance;Printed Materials Barriers: None Learning/educational needs: Plan of Care;Home exercise program;Body Mechanics Education Provided: Yes, see treatment interventions for education provided Education Provided To: Patient Education Mode/Type: Literature/Printed Materials;Explanation/Discussion Response to Education/Teach Back: States/Identifies TREATMENT: Evaluation Evaluation Therapeutic Activity: 1: Discussed plan of care and established goals with patient input 2: Educated on contrast bath. 3: Wrist stretching in flexion/extension x 5 reps Skilled Intervention: Activity progression based on professional judgment. Billing: Carmelo: Evaluation - Moderate Complexity (28403) Therapeutic Functional Activity (30081): 1:1 time:15 minutes (1 unit: 8-22 mins) Total time: 50 minutes XU Diallo CNTHERAPY Observed: 06/09/2018 Status: COMPLETED Source: [place] 9:15 AM [facility] REPOSITORY OT/PT/Speech Visit (LDPT) JEFFREY CULLEN JR. ([id number]) 1950 M CHT Date Time Provider Department 06/09/18 9:15 AM REJI VELIZ (PT) LDPT Date Time Provider Department Center 06/09/2018 9:15 AM [id number], STEPHEN (P*LDPT [facility] [address] Reason for Visit: PT Eval [747] Primary Visit Diagnosis:Weakness [R53.1] Other Visit Diagnosis:SDH (subdural hematoma) ([facility]) [S06.5X9A] Allergies As of Date: 06/09/2018 Noted Allergy Reaction BEE STING 04/22/2018 16 - Unknown Date Reviewed: 04/26/2018 Reviewed by: Sheila (Rn) RAINA Jones - Fully Assessed Prescriptions as of 06/09/2018 Sig: APIXABAN 5 MG TABLET Take 1 tablet by mouth twice * ACETAMINOPHEN 325 MG TABLET Take 2 tablets by mouth every* LEVETIRACETAM 500 MG TABLET Take 1 tablet by mouth twice * AMIODARONE 100 MG TABLET Take 200 mg by mouth once katerina* FAMOTIDINE 10 MG TABLET Take 20 mg by mouth twice kaetrina* LISINOPRIL 2.5 MG TABLET Take 2.5 mg by mouth once katerina* NADOLOL 20 MG TABLET Take 40 mg by mouth once janet* VALPROIC ACID ( SODIUM SALT* Take 10 mL by mouth every 8 h* ONDANSETRON HCL (PF) 4 MG/2 M* Inject 4 mg intravenously federica* ATORVASTATIN 40 MG TABLET Take 1 tablet by mouth daily * HALOPERIDOL 2 MG/ML ORAL CONC* Take 2.5 mL by mouth every 6 * ALBUTEROL SULFATE 2.5 MG/3 ML* Use 3 mL via nebulizer every * IPRATROPIUM-ALBUTEROL 0.5 MG-* Inhale 3 mL as instructed fou* METOPROLOL TARTRATE 100 MG TA* Take 1 tablet by mouth every * DILTIAZEM 60 MG TABLET 1 tablet by NASOGASTRIC route* PROPOFOL 10 MG/ML INTRAVENOUS* Inject 1.091-5.455 mg/min int* BUDESONIDE 0.5 MG/2 ML SUSPEN* Use 4 mL via nebulizer twice * METOCLOPRAMIDE 5 MG/ML INJECT* Inject 10 mg intravenously ev* POLYETHYLENE GLYCOL 3350 17 G* Take 1 Packet by mouth once d* SENNOSIDES 8.6 MG-DOCUSATE SO* Take 1 tablet by mouth twice * BISACODYL 10 MG RECTAL SUPPOS* 1 Suppository by RECTAL route* MELATONIN 3 MG TABLET Take 2 tablets by mouth daily* ASPIRIN 81 MG CHEWABLE TABLET Take 1 tablet by mouth once d* SODIUM CHLORIDE 0.9 % INJECTI* Inject 10 mL intravenously ev* SODIUM CHLORIDE 0.9 % INJECTI* Inject 20 mL intravenously as* THIAMINE HCL (VITAMIN B1) 100* Take 1 tablet by mouth once d* Progress Notes: Reji Veliz, PT 06/09/2018 4:36 PM Signed Episode Visit Count: 2 Therapist That Will Oversee The Plan Of Care: Reji Veliz Start of Care Date: 06/09/18 Onset Date: 02/06/18 Plan of Care Certification Date: 06/09/18 Patient Identified by Name and Date of : Yes REHABILITATION AND SPORTS THERAPY PHYSICAL THERAPY EVALUATION PLAN OF CARE: Assessment: Jeffrey Fara Cullen Jr. presents with the diagnosis of lower extremity weakness stemming from prolonged bed-ridden due to an 8 week long coma and subsequent brain injury suffered in a fall. He presents with impairments of decreased strength, balance, antalgic gait and increase. He may benefit from skilled therapy services to improve strength and balance and reduce risk of falling. Due to the multiple co-morbidities and recent bypass surgery followed by a prolonged coma, this client presents with moderate level of involvement. Prognosis: Good Good due to: Prognosis may be limited Prognosis may be limited by: multiple co- morbidities Goals for Episode of Care: created on 06/09/18 through 08/08/18 [place] in home exercise program. Patient will demonstrate 5/5 strength through BLE to facilitate gait and improve safety. Demonstrate improvement on functional score: Patient will improve his/her AM-PAC T-scale score by 4 points to indicate a Minimal Clinical Important Difference . Scored 53.12 at initial evaluation Reciprocal stair negotiation. G CODE REPORTING Based on clinical assessment and the score on the AM-PAC Scale Score Assessment Tool, the G code and corresponding severity modifiers are documented below. Evaluation: 06/09/2018 Current Status: Mobility: Walking and Moving Around: G8978 CK 40-59% impaired Goal Status: Mobility: Walking and Moving Around: G8979 CJ 20-39% impaired Planned Interventions, Frequency, and Duration: Current Frequency: 2x/week Duration: 4 weeks Total Number of Visits Planned: 16 Planned Treatment Interventions: Therapeutic exercise;Neuromuscular re-education;Manual therapy;Therapeutic activities;Self-usp management;Gait Training;Patient/Family/Caregiver Education;Body Mechanics Training;Functional training PLAN FOR NEXT VISIT: Progress with trunk stabilization and LE strengthening to facilitate pre-gait activities Patient demonstrates good understanding of plan of care and treatment. The above goals and plan of care were discussed and agreed upon by patient/family. SUBJECTIVE: Jeffrey Cullen Jr. is a 68 year old male seen today for had an UT, went for 3x bypass and had complications which left him in a coma x8 weeks. Fell out of a wc, suffered a bleed. was in hospital till 06/02/18. Functional Limitations: rising from a chair;standing;walking;stair negotiation;lifting Prior Level of Function: Independent without limitations Patient Goals: to strengthen the LEs Intake Information: Prescription present Previous Treatment: Pain meds?;Surgery?;Acute Rehab?;Acute Hospital?;SNF? Falls Interview: Two or more falls in the last year;Fall with injury in the last year Pain Score: 0/10 OBJECTIVE MEASURES WITH LEVEL OF FUNCTION: Gait Gait: Independent Gait Device: None Gait Deviations: General Deviations General Gait Deviations: Narrow Base of Support;Lateral sway increased;Difficulty changing direction/turning;Loss of Balance LE Strength R Hip Flexion (L2): 4+/5 R Knee Extension (L3): 5/5 R Knee Flexion: 5/5 R Ankle Dorsiflexion (L4): 5/5 L Hip Flexion (L2): 4+/5 L Knee Extension (L3): 5/5 L Knee Flexion: 5/5 L Ankle Dorsiflexion (L4): 5/5 5 Times Sit to Stand Test : 37.2 sec Timed Up and Go (sec): 15.1 sec Education: Education Learning Preferences: Demonstration;Performance;Printed Materials Barriers: None Learning/educational needs: Home exercise program;Plan of Care;Safety;Posture;Gait Training;Body Mechanics Education Provided: Yes, see treatment interventions for education provided Education Provided To: Patient Education Mode/Type: Explanation/Discussion;Literature/Printed Materials;Performance Response to Education/Teach Back: Return Demonstration;States/Identifies TREATMENT: Evaluation Evaluation Therapeutic Exercise: 1: *[place]rid[place] hold, x10 2: *sidelying clamshell: 30 hold, 3xB 3: discussed clinical findings and course of rehab. Discussed the possible use of a cane for improved safety due to risk of falling Skilled Intervention: Patient was educated in proper exercise technique and purpose for exercises. Reviewed and educated patient on additions/changes for home exercise program as above (*) Skilled judgment was provided in selection of appropriate interventions. Patient education as noted. Billing: [place]: Evaluation - Moderate Complexity (77422) Therapeutic Exercise (53057): 1:1 time: 25 minutes (2 units: 23-37 mins) Total time: 45 minutes Reji Veliz PT Letter Text CNTHERAPY Observed: 06/09/2018 Status: COMPLETED Source: [place] 8:00 AM [facility] REPOSITORY OT/PT/Speech Visit (LTOT) INDOE,JEFFREY L JR. ([id number]) 1950 M [facility] Date Time Provider Department 06/09/18 8:00 AM NADEEM STEELE (OT) JUD Date Time Provider Department [place] 06/09/2018 8:00 AM [id number] *LTOT AG [address] Reason for Visit: OT EVAL [748] Primary Visit Diagnosis:Weakness [R53.1] Other Visit Diagnoses:Stiffness of right hand joint [M25.641] Stiffness of left hand joint [M25.642] Decreased range of motion of right shoulder [M25.611] Decreased range of motion of left shoulder [M25.612] Decreased activities of daily living (ADL) [R68.89] Allergies As of Date: 06/09/2018 Noted Allergy Reaction BEE STING 04/22/2018 16 - Unknown Date Reviewed: 04/26/2018 Reviewed by: Sheila MoodyRn) RAINA Jones - Fully Assessed Prescriptions as of 06/09/2018 Sig: APIXABAN 5 MG TABLET Take 1 tablet by mouth twice * ACETAMINOPHEN 325 MG TABLET Take 2 tablets by mouth every* LEVETIRACETAM 500 MG TABLET Take 1 tablet by mouth twice * AMIODARONE 100 MG TABLET Take 200 mg by mouth once katerina* FAMOTIDINE 10 MG TABLET Take 20 mg by mouth twice katerina* LISINOPRIL 2.5 MG TABLET Take 2.5 mg by mouth once katerina* NADOLOL 20 MG TABLET Take 40 mg by mouth once janet* VALPROIC ACID ( SODIUM SALT* Take 10 mL by mouth every 8 h* ONDANSETRON HCL (PF) 4 MG/2 M* Inject 4 mg intravenously federica* ATORVASTATIN 40 MG TABLET Take 1 tablet by mouth daily * HALOPERIDOL 2 MG/ML ORAL CONC* Take 2.5 mL by mouth every 6 * ALBUTEROL SULFATE 2.5 MG/3 ML* Use 3 mL via nebulizer every * IPRATROPIUM-ALBUTEROL 0.5 MG-* Inhale 3 mL as instructed fou* METOPROLOL TARTRATE 100 MG TA* Take 1 tablet by mouth every * DILTIAZEM 60 MG TABLET 1 tablet by NASOGASTRIC route* PROPOFOL 10 MG/ML INTRAVENOUS* Inject 1.091-5.455 mg/min int* BUDESONIDE 0.5 MG/2 ML SUSPEN* Use 4 mL via nebulizer twice * METOCLOPRAMIDE 5 MG/ML INJECT* Inject 10 mg intravenously ev* POLYETHYLENE GLYCOL 3350 17 G* Take 1 Packet by mouth once d* SENNOSIDES 8.6 MG-DOCUSATE SO* Take 1 tablet by mouth twice * BISACODYL 10 MG RECTAL SUPPOS* 1 Suppository by RECTAL route* MELATONIN 3 MG TABLET Take 2 tablets by mouth daily* ASPIRIN 81 MG CHEWABLE TABLET Take 1 tablet by mouth once d* SODIUM CHLORIDE 0.9 % INJECTI* Inject 10 mL intravenously ev* SODIUM CHLORIDE 0.9 % INJECTI* Inject 20 mL intravenously as* THIAMINE HCL (VITAMIN B1) 100* Take 1 tablet by mouth once d* Progress Notes: Nadeem Steele, OTR/L, OTR/L 06/09/2018 3:57 PM Signed Episode Visit Count: 1 Therapist That Will Oversee The Plan Of Care: Vinnie Steele Start of Care Date: 06/09/18 Onset Date: 02/07/18 Plan of Care Certification Date: 06/09/18 Patient Identified by Name and Date of : Yes Rehab Precautions: HTN;Cardiac;Fall Risk;Seizure Precaution/Activity Restriction Comments: lifting restrictions Surgical Procedure: CABG x3 vessels Surgical Procedure Date: 02/07/18 [facility] OCCUPATIONAL THERAPY EVALUATION PLAN OF CARE: Assessment: Jeffrey Chaudhari Subhash Galdamez presents with the diagnosis of weakness of the arms. He presents with impairments of limited bilateral shoulder range of motion, limited range of motion to the bilateral wrists and fingers, impaired ADL and IADL ability, decreased leiure. He may benefit from skilled occupational therapy services to improve ROM to BUE throughout for improved ADL/IADL function, decrease edema in bilateral hands, improve coordination. Prognosis: Fair Fair due to: multiple co- morbidities;limited support system Goals for Episode of Care created on 06/09/18 through 09/01/18 Patient will complete HEP at [place] level. Patient will increase active ROM of bilateral hands and shoulders to WFL to allow patient to improved performance of ADLs. 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 Patient will report a good understanding of edema control techniques Patient will improve his/her AM-PAC T-scale score by 4 points to indicate a Minimal Clinical Important Difference Patient to increase ADL and IADL tasks to at least Modified Independent For previously completed tasks G CODE REPORTING Based on clinical assessment and the score on the AM-PAC Scale Score Assessment Tool, the G code and corresponding severity modifiers are documented below. Evaluation: 06/09/2018 Current Status: Self-Care: G8987 CL 60-79% impaired Goal Status: Self-Care: G8988 CK 40-59% impaired Planned Interventions, Frequency, and Duration: Current Frequency: 2x/week Duration: 12 weeks Total Number of Visits Planned: 20 Planned Treatment Interventions: Therapeutic exercise;Therapeutic activities;Manual therapy;Neuromuscular re-education;Modalities;Self-usp management;Patient/Family/Caregiver EducationUltrasound PLAN FOR NEXT VISIT: begin HEP Patient demonstrates fair understanding of plan of care and treatment. The above goals and plan of care were discussed and agreed upon by patient/family. SUBJECTIVE: Jeffrey Cullen Jr. is a 68 year old male seen today for Prior Level of Function: Independent without limitations Intake Information: Prescription present Previous Treatment: Acute Rehab? 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 Home Type: [place] Entry To Home: Stairs;With Rail Number Of Stairs Into Home: 5 Tub/Shower Type: Combo Laundry: laundormat Equipment Owned: Rollator;Wheeled Walker Pain Score: 0/10 Post Treatment Pain Score: 0/10 OBJECTIVE MEASURES WITH LEVEL OF FUNCTION: Hand Evaluation Shoulder AROM: Limitations as noted Limitations as noted: Bilateral Elbow/Wrist AROM: Limitations as noted Limitations as noted: Bilateral Hand AROM: Limitations as noted Limitations as noted: Bilateral Strength: Manual Muscle Testing;Pinch Meter;Dynamometer / Combustion Analyst R Combustion Analyst Position 2 (lbs): 20 lbs L Combustion Analyst Position 2 (lbs): 9 lbs R Lateral Pinch (lbs): 8 lbs L Lateral Pinch (lbs): 7 lbs Dexterity/Coordination: Fine Motor Hand AROM R Index Finger MP Extension: -40 Degrees R Index Finger MP Flexion: 72 Degrees R Index Finger PIP Extension : -25 Degrees R Index Finger PIP Flexion: 72 Degrees R Index Finger DIP Flexion: 50 Degrees R Middle Finger MP Flexion : 70 Degrees R Middle Finger PIP Extension: -30 Degrees R Middle Finger PIP Flexion : 76 Degrees R Middle Finger DIP Flexion : 45 Degrees R Ring Finger MP Flexion : 67 Degrees R Ring Finger PIP Extension: 25 Degrees R Ring Finger PIP Flexion : 77 Degrees R Ring Finger DIP Extension: 40 Degrees R Little Finger MP Flexion : 70 Degrees R Little Finger PIP Flexion : 80 Degrees R Little Finger DIP Flexion : 45 Degrees L Index Finger MP Flexion: 55 Degrees L Index Finger PIP Extension : -35 Degrees L Index Finger PIP Flexion : 75 Degrees L Index Finger DIP Flexion: 36 Degrees L Middle Finger MP Flexion: 70 Degrees L Middle Finger PIP Extension: -30 Degrees L Middle Finger PIP Flexion : 75 Degrees L Middle Finger DIP Flexion : 35 Degrees L Ring Finger MP Flexion : 42 Degrees L Ring Finger PIP Extension : -30 Degrees L Ring Finger PIP Flexion : 71 Degrees L Ring Finger DIP Flexion : 35 Degrees L Little Finger MP Flexion : 47 Degrees L Little Finger PIP Flexion : 55 Degrees L Little Finger DIP Flexion: 60 Degrees UE AROM R Shoulder Flex: 80 Degrees R Shoulder ABduction: 77 Degrees L Shoulder Flex: 74 Degrees L Shoulder ABduction: 75 Degrees UE PROM R Shoulder Flex: 95 Degrees R Shoulder ABduction: 93 Degrees L Shoulder Flex: 89 Degrees L Shoulder ABduction: 90 Degrees UE and Cervical Strength R Shoulder Flexion: 2-/5 R Shoulder Abduction (C5): 2-/5 R Shoulder Internal Rotation: 3-/5 R Shoulder External Rotation: 3-/5 L Shoulder Flexion: 2-/5 L Shoulder Abduction (C5): 2-/5 L Shoulder Internal Rotation: 3-/5 L Shoulder External Rotation: 3-/5 Current Activities Of Daily Living Feeding: Stand By Assistance (cutting food) Grooming: Modified Independent Bathing Upper Body: Minimal Assistance Bathing Lower Body: Minimal Assistance Dressing Upper Body: Moderate Assistance Dressing Lower Body: Moderate Assistance Toileting: Minimal Assistance Instrumental Activities of Daily Living Meal/Beverage Prep: Minimal Assistance Cooking: Moderate Assistance (Able to prepare simple meals) Cleaning: Total Assistance Laundry: Total Assistance Education: Education Learning Preferences: Demonstration;Explanation;Performance;Printed Materials Barriers: None Learning/educational needs: Plan of Care;Home exercise program;Body Mechanics Education Provided: Yes, see treatment interventions for education provided Education Provided To: Patient Education Mode/Type: Literature/Printed Materials;Explanation/Discussion Response to Education/Teach Back: States/Identifies TREATMENT: Evaluation Evaluation Therapeutic Activity: 1: Discussed plan of care and established goals with patient input 2: Educated on contrast bath. 3: Wrist stretching in flexion/extension x 5 reps Skilled Intervention: Activity progression based on professional judgment. Billing: [place]: Evaluation - Moderate Complexity (81664) Therapeutic Functional Activity (43643): 1:1 time:15 minutes (1 unit: 8-22 mins) Total time: 50 minutes XU Diallo Letter Text INTERNAL MEDICINE Observed: 06/07/2018 Status: F Source: [place] OFFICE VISIT 1:32 PM [facility] [address] [place] [address] [place], [place] [address] OFFICE VISIT Date of Service: 06/07/18 MR#: [id number] Acct: [id number] Name: JEFFREY CULLEN Rep #: [id number] : 1950 Provider: Tonia Pickard NP Age/Sex: 68/M Location: [facility] Status: Signed Intake Vital Signs06/07/18 Height 5 ft 10 in Intake Visit Reasons: needs meds post CABG Chief Complaint: medication refills Is patient in pain?: No Allergies No Known Allergies Allergy (Unverified 06/07/18 09:14) Medications amiodarone 200 mg tablet 200 mg PO QDAY #30 tab 06/07/18 [Rx Confirmed 06/07/18] aspirin 325 mg tablet 325 mg PO QDAY 06/07/18 [History Confirmed 06/07/18] atorvastatin 40 mg tablet 40 mg PO QDAY #90 tab 06/07/18 [Rx Confirmed 06/07/18] cholecalciferol (vitamin D3) 1,000 unit capsule 1,000 unit PO QDAY 06/07/18 [History Confirmed 06/07/18] diltiazem CD 180 mg capsule,extended release 24 hr 180 mg PO QDAY #30 cap 06/07/18 [Rx Confirmed 06/07/18] famotidine 20 mg tablet 20 mg PO QDAY #30 tab 06/07/18 [Rx Confirmed 06/07/18] fluticasone 100 mcg-vilanterol 25 mcg/dose powder for inhalation 1 inh INHALATION QDAY #60 ea 06/07/18 [Rx Confirmed 06/07/18] gabapentin 100 mg capsule 100 mg PO BID #60 cap 06/07/18 [Rx Confirmed 06/07/18] ibuprofen 800 mg tablet 800 mg PO TID-QID PRN 06/07/18 [History Confirmed 06/07/18] lisinopril 20 mg tablet 20 mg PO QDAY #90 tab 06/07/18 [Rx Confirmed 06/07/18] nadolol 40 mg tablet 40 mg PO QDAY #30 tab 06/07/18 [Rx Confirmed 06/07/18] omega-3 acid ethyl esters 1 gram capsule 1 cap PO BID cap 06/07/18 [History Confirmed 06/07/18] quetiapine 25 mg tablet 12.5 mg PO QHS #30 tab 06/07/18 [Rx Confirmed 06/07/18] sennosides 8.6 mg-docusate sodium 50 mg tablet 1 tab PO QDAY PRN #60 tab 06/07/18 [Rx Confirmed 06/07/18] sertraline 100 mg tablet 100 mg PO QDAY #90 tab 06/07/18 [Rx Confirmed 06/07/18] trazodone 50 mg tablet 50 mg PO QHS PRN #30 tab 06/07/18 [Rx Confirmed 06/07/18] valproic acid 250 mg capsule 250 mg PO TID #90 cap 06/07/18 [Rx Confirmed 06/07/18] PFSH Medical History Traumatic subarachnoid hemorrhage with loss of consciousness (Acute) Encephalopathy (Chronic) Osteoarthritis (Chronic) Insomnia (Acute) COPD (chronic obstructive pulmonary disease) (Chronic) Atherosclerotic heart disease (Chronic) Depression (Chronic) Hyperlipemia (Chronic) Hypertension (Chronic) Surgical History History of coronary artery bypass graft (Acute) History of right knee joint replacement (Acute) Family History Mother Hypertension Colon cancer Father Hypertension Social History Smoking Status: Former smoker how long ago did patient quit smokin alcohol intake: never what type of physical activity do you participate in: none HPI HPI Chief Complaint: medication refills Details: JEFFREY CULLEN, is a 68 M who presents to the office today for medication refills. The patient has a past medical history as listed above. Patient is a poor historian, requested records from previous hospital stay and skilled facility stay, records not available at this time. Patient states around February 06, 2018 he was taken to [place] emergency room first visual changes, in the ER he began to have chest pain and was told he was having a heart attack. He was sent to [facility] where he received bypass surgery. At some point he was transferred to [facility] for therapy. The patient states a few hours into his stay in the [facility] he fell out of his wheelchair and hit his head. At this point his story is very vague, he is not sure about a hospital stay at this point but does note somehow he ended up at [facility] for brain bleed. After [facility] he was transferred back to [facility] for therapy. He was discharged from [facility] June 03, to home, but was given a limited supply of medications. He states he does not know his cardiothoracic surgeon, or who his engraver hand hard metals is , he says he has never had a follow-up appointment with cardiology or neurology. The patient is requesting refills of all of his medications. He states he thinks he only has about 6 days left of medications. He does want his lyrica changed to a cheaper alternative. The patient otherwise denies any fever, chills, nausea, vomiting, shortness of breath, chest pain or pressure, palpitations, orthopnea, lower extremity edema, syncope or presyncopal episodes. ROS Const Constitutional: Positive for weakness (in the legs at times); no weight change, body ache, chills, fatigue, sleep problems, fever(s), change in appetite, snoring, frequent falls, headache(s) or excessive sweating Eyes Eyes: No change in vision, eye pain, light sensitivity or blurry vision ENT ENT: Positive for neck pain (from inscision. ); no headache(s), abnormal hearing, ear pain, tinnitus, nasal congestion or sore throat Resp Respiratory: No snoring, cough, shortness of breath or wheezing Cardio Cardiology: No excessive sweating, chest pain at rest, chest pain with exertion, shortness of breath, dyspnea on exertion, palpitations, orthopnea or lightheadedness Gastro GI: No abdominal pain, change in bowel habits, constipation, diarrhea, vomiting, nausea/dyspepsia or cramping Genitourinary Male: No painful urination, urinary incontinence, urinary frequency, urinary urgency, blood in urine, testicle pain or other Musc Musculoskeletal: Positive for neck pain (from inscision. ), numbness and tingling (hands); no abnormal walking, joint pain, back pain or limited range of motion Skin Skin: No redness, dry skin, itching, lesions, wounds or rash Neuro Neurology: Positive for weakness (in the legs at times), numbness and tingling (hands); no frequent falls, headache(s), abnormal hearing, abnormal walking, abnormal speech, dizziness or memory loss Psych Psychiatric: No change in appetite, No memory loss, No anxiety, Positive for depression, No Thoughts of harming yourself/Others Endo Endocrine: No fatigue, excessive sweating, cold intolerance, increased thirst/drinking, heat intolerance, flushing or increased hunger Aller/Imm Allergy/Immunologic: No wheezing, itchy eyes, hives or seasonal allergy symptoms Lukasz/Lymp Hematologic/Lymphatic: No easy bleeding, easy bruising or enlarged lymph nodes Exam Const General: cooperative, comfortable, no acute distress Nutritional Appearance: average body habitus, well nourished Orientation: alert, oriented x3 Limitations: mental status not altered Chest Chest palpation AND inspection: other (midline incision healing) Resp Effort AND Inspection: normal respiratory effort, able to speak in complete sentences, normal respiratory pattern, symmetric chest movement, no audible wheezes, no cough Auscultation: Bilateral: Clear to Auscultation Cardio Palpation: normal PMI Rate: regular rate Heart Sounds: S1 normal, S2 normal, normal S1 and S2, no click, no gallops, no murmurs, no rubs Musc Musculoskeletal: No joint tenderness, joint warmth or decreased ROM Skin General: no rashes or lesions noted, elasticity normal, turgor normal Lesions: no lesions Rashes: no rashes Other: CABG incision healed, healing incsion left leg healing trach and peg site Neuro General: alert, awake, oriented x3, CN's II-XI intact bilaterally Speech: speech normal Gait: normal gait Motor: muscle tone normal throughout Extrem General: normal to inspection, normal gait, edema Laterality: bilateral Severity: pitting and 2+, no pedal edema Psych Appearance: grossly normal Mental Status: mental status grossly normal (forgetful at times) Affect: normal affect Attitude: cooperative Thought Process: normal Assessment AND Plan 1. Atherosclerotic heart disease I25.10 Plan Patient is status post CABG. He is unsure who the cardiothoracic surgeon was. He is unsure if he has a engraver hand hard metals, he states he has not had any follow- up appointments with either. Records have been requested. 2. Traumatic subarachnoid hemorrhage with loss of consciousness S06.6X9A Plan Patient is poor historian, he is very unsure about his hospital stay. He received inpatient therapy at [facility] and [facility]. He is receiving physical therapy and occupational therapy in outpatient setting. Records have been requested from hospital stay and rehab stays. 3. Paroxysmal atrial fibrillation I48.0 Plan Patient's heart rate his regular. He is currently on amiodarone. Will request records. Patient educated on signs and symptoms that would warrant emergency medical care. 4. Insomnia G47.00 Plan Patient states his insomnia is controlled. He has no issues falling asleep or staying asleep. Refills for his trazodone were called his pharmacy. Side effects of medication discussed with patient. This note was generated with [employer] dictation software. It may contain incorrect words, spelling, and punctuation that were not noted in checking the note before signing. Plan Detail Other Medications New: Follow Up 2 Weeks Coding Level of Care Code Off vis,new,level 3 Diagnoses Atherosclerotic heart disease I25.10 Traumatic subarachnoid hemorrhage with loss of consciousness S06.6X9A Paroxysmal atrial fibrillation I48.0 Atrial fibrillation type: paroxysmal Insomnia G47.00 06/07/18 1332 <Electronically signed by Tonia DILLON> Date Tonia DILLON Cosigner Signature: Date (if applicable) CC: URIC ACID Collected: 05/13/2018 Status: F Source: [place] 8:45 AM [facility] REPOSITORY TYPE CODE TESTS RESULT OUT OF RANGE REFERENCE UNITS LAB URIC 4.0-8.1 mg/dL Uric Acid 4.7 Performed By: #### URIC, WSR #### [facility] [address] [place] [address] SED RATE WESTERGREN Collected: 05/13/2018 Status: F Source: [place] 8:45 AM [facility] REPOSITORY TYPE CODE TESTS RESULT OUT OF REFERENCE UNITS RANGE LAB WSR 0-15 mm/hr Sed Rate High Westergren 27 Performed By: #### URIC, WSR #### [facility] [address] [address] [address] HEAD W/O CONTRAST Observed: 2018 Status: F Source: [facility] 12:50 PM HEALTH SYSTEM REPOSITORY Performed at [facility] APPROVED BY: Jose Myles MD BRAIN CT WITHOUT CONTRAST ENHANCEMENT Serial transverse images of the brain were obtained without contrast material. The study was performed within 24 hours of arrival to evaluate previous documented intracranial hemorrhage. CT Dose-Length Product (DLP): 795 mGy*cm CT Dose Reduction Employed: No dose reduction techniques were required Serial images demonstrate no definite evidence of acute infarction, hemorrhage, mass lesion, or midline shift. There is redemonstration of prominence of cortical subarachnoid spaces, cerebellar folia, basal cisterns in conjunction with mild generalized ventricular dilatation. IMPRESSION: Interval resolution of acute subdural hemorrhage identified with the previous CT study from 03/2018. VALPROIC ACID Collected: 05/04/2018 Status: F Source: [place] 4:54 AM [facility] REPOSITORY TYPE CODE TESTS RESULT OUT OF REFERENCE UNITS RANGE LAB VPA 50-100 ug/mL Low Valproic Acid 23.2 Result Comment: Reference ranges and high/low indicator flags are provided as general guidelines only. The treating physician must determine appropriate target levels/dosing based on the specific clinical situation. Performed By: #### VPA #### [facility] [address] [place], [place] [address] BASIC METABOLIC PANL Collected: 05/01/2018 Status: F Source: [place] 4:43 AM [facility] REPOSITORY TYPE CODE TESTS RESULT OUT OF REFERENCE UNITS RANGE LAB GLU 74-99 mg/dL Glucose 81 Result Comment: The [place] [employer] (ADA) provides guidance for cutoff values for fasting glucose and random glucose. The ADA defines fasting as no caloric intake for at least 8 hours. Fas ting plasma glucose results between 100 to 125 mg/dL indicate increased risk for diabetes (prediabetes). Fasting plasma glucose results greater than or equal to 126 mg/dL meet the criteria for diagnosis of diabetes. In the absence of unequivocal hyperglycemia, results should be confirmed by repeat testing. In a patient with classic symptoms of hyperglycemia or hyperglycemic crisis, random plasma glucose results greater than or equal to 200 mg/dL meet the criteria for diagnosis of diabetes. Reference: Standards of Medical Care in Diabetes 2016, [place] [employer]. Diabetes Care. 2016.39(Suppl 1). LAB BUN 9-24 mg/dL BUN 11 LAB CRET 0.73-1.22 mg/dL Creatinine Low 0.72 LAB NA 136-144 mmol/L Sodium 139 LAB K 3.7-5.1 mmol/L Potassium 3.8 LAB CL 97-105 mmol/L Chloride 102 LAB CO2 22-30 mmol/L CO2 26 LAB AGAP 9-18 mmol/L Anion Gap 11 LAB CA 8.5-10.2 mg/dL Calcium, Low Total 8.4 LAB GFRAA eGFR- Amer. >60 LAB GFRNAA . eGFR-All Other Races >60 Result Comment: eGFR (Estimated GFR) Units of measure: mL/min/1.73 meters squared eGFR is derived from the reexpressed MDRD Study equation using the following parameters: serum creatinine, age, gender and race. The creatinine assay has been calibrated to be traceable to IDMS. An eGFR <60 mL/min/1.73m2 for >3 months is consistent with chronic kidney disease. Refer to KDOQI guidelines for clinical interpretation. In patients with unstable renal function, e.g. those with acute kidney injury, the eGFR may not accurately reflect actual GFR. Performed By: #### BMP #### [facility] [address] [place], [place] [address] Observed: 04/30/2018 Status: F Source: [place] RESPIRATORY CULT/STAIN 12:03 PM [facility] REPOSITORY Smear Result - Few Gram positive cocci in pairs and chains --> ABNORMAL ALERT Rare --> ABNORMAL ALERT Gram negative bacilli --> ABNORMAL ALERT Rare --> ABNORMAL ALERT Gram positive bacilli - -> ABNORMAL ALERT Rare Polymorphonuclear leukocytes Rare Epithelial cells Culture Result - Many Streptococcus pyogenes (Group A streptococcus) --> ABNORMAL ALERT Susceptibility testing not performed on beta hemolytic streptococci due to predictable susceptibility to penici llin and other beta lactams. For testing, call Microbiology within 72 hours. --> ABNORMAL ALERT Rare --> ABNORMAL ALERT Klebsiella (Enterobacter) aerogenes --> ABNORMAL ALERT Insignificant colo ny count. No further workup. --> ABNORMAL ALERT Rare --> ABNORMAL ALERT Pseudomonas aeruginosa --> ABNORMAL ALERT Insignificant colony count. No further workup. --> ABNORMAL ALERT Moderate Normal respiratory shannan present Performed By: #### RCULST #### [facility] [address] [place], [place] [address] CNDS Observed: 04/27/2018 Status: COMPLETED Source: [place] 2:16 PM [facility] OTHER CAMPUS REPOSITORY HNO ID: [id number] Author: Lynne Christy Service: Trauma Author Type: Physician Type: Discharge Summaries Filed: 04/27/2018 3:34 PM Note Text: DISCHARGE SUMMARY PATIENT NAME: Jeffrey Cullen Admission Information Admission Information ADMIT DATE: 04/22/2018 DISCHARGE DATE: 04/27/2018 MY DOCTORS AND MEDICAL TEAM: My Main Hospital Doctor: Jaclyn Staley Primary Care Provider: Julio César Lara MD My Medical Team Members: Treatment Team: Attending Provider: Jaclyn Staley Consulting: Lynne Christy Consulting: Sharad Cortez MY CONDITION AT DISCHARGE: Stable REASON I WAS IN THE HOSPITAL: Trauma: Fall with injuries SUMMARY OF WHAT HAPPENED WHILE I WAS IN THE HOSPITAL: 67 year old male transfer from [facility] with h/o trach/PEG s/p fall from wheelchair with SDH, forehead laceration (sutures removed) and 1st rib fracture. Recent h/o CABG in 02/12, complicated with resp failure, encephalopathy, and E. Coli/Klebsiella PNA. Afib on Eliquis. Given Feba at [place]. ?Baseline encephalopathy, oriented to person and place, but not time; impulsive - sitter at bedside as pt wants to ambulate without assistance. Neurosurgery consult: Neuro checksNilda 7 days, follow up scheduled; hold Eliquis until then. O2 per trach collar at 28%. Tube feeds, tolerating mechanical soft diet per speech therapy recommendations. Pain controlled. Physical Therapy recommended Acute Rehab. Discharged to [facility]. ? OTHER PROBLEMS/DIAGNOSIS: Active Problems: Malnutrition of moderate degree (HCC) Encephalopathy Weakness CAD (coronary artery disease) Chronic respiratory failure (HCC) SDH (subdural hematoma) (HCC) Resolved Problems: Fall from wheelchair OPERATIONS PERFORMED WHILE IN THE HOSPITAL: None IMPORTANT TEST/PROCEDURES: No procedures performed TEST RESULTS NOT AVAILABLE AT THIS TIME: No pending results Discharge Disposition Discharge Disposition: [facility] Facility - Less than 30 Days Activity When You Leave the Hospital Resume pre-hospital activity Impulsive - safety risk for falls Diet Instructions Other: Mechanical soft diet + TF's For Pain When You Leave the Hospital If you become constipated, you may use any zhzc-uhp-vsxeswy treatment such as Milk of Magnesia, Sennakot, Prune Juice, Suppositories, etc. in addition to the stool softener/fiber supplement Use the dispensed medication (see prescription) You should use an tbxt-zxa-xwpgmvp stool softener (Docusate sodium) and/or a fiber supplement (Metamucil, Fiber Con) every day while taking prescribed pain medication Call Your Doctor If You have a severe headache You have lightheadedness, fainting, or confusion You have persistent nausea/vomiting over 24 hours You have redness, swelling, pus or drainage from the wound Follow Up Appointments Follow-Up Appointment Neurosurgery followup; HOLD Eliquis until recheck When: In: Patient/Parents to call for appointment?: Scheduled Bert Bain [phone] [address] [place] [address] PCP Requested Referral Follow-Up Appointment When: In 2 weeks Patient/Parents to call for appointment?: Yes Julio César Lara [phone] [address] [address] [place] [address] PCP Requested Referral Additional Provider to Provider Information: Active Problems: Malnutrition of moderate degree (HCC) POA: Yes Encephalopathy POA: Yes Weakness POA: Yes CAD (coronary artery disease) POA: Yes Chronic respiratory failure (HCC) POA: Yes SDH (subdural hematoma) (HCC) POA: Yes Resolved Problems: Fall from wheelchair POA: Yes FOLLOW-UP APPOINTMENTS ALREADY SCHEDULED WITH A [facility] PROVIDER: No future appointments. DISCHARGE MEDICATION: Current Discharge Medication List START taking these medications acetaminophen (TYLENOL) 650 mg Take 650 mg by mouth every 6 hours. levETIRAcetam (KEPPRA) 500 mg Take 500 mg by mouth twice daily. Qty: 4 tablet Refills: 0 oxyCODONE IR (ROXICODONE) 5 mg Take 5 mg by mouth every 6 hours as needed for Pain. Earliest Fill Date: 04/27/18 Qty: 28 tablet Refills: 0 Associated Diagnoses:SDH (subdural hematoma) (HCC) CONTINUE these medications which have CHANGED apixaban (ELIQUIS) 5 mg Take 5 mg by mouth twice daily. HOLD UNTIL RECHECKED BY NEUROSURGERY CONTINUE these medications which have NOT CHANGED amiodarone (PACERONE) 200 mg Take 200 mg by mouth once daily. famotidine (PEPCID) 20 mg Take 20 mg by mouth twice daily. lisinopril 2.5 mg Take 2.5 mg by mouth once daily. nadolol (CORGARD) 40 mg Take 40 mg by mouth once daily. valproic acid (DEPAKENE) 500 mg Take 500 mg by mouth every 8 hours. atorvastatin (LIPITOR) 40 mg Take 40 mg by mouth daily at bedtime. albuterol (PROVENTIL) 2.5 mg Use 2.5 mg via nebulizer every 2 hours as needed for Wheezing/Shortness of Breath. budesonide (PULMICORT) 1 mg Use 1 mg via nebulizer twice daily. senna-docusate (SENNA-S) 1 tablet Take 1 tablet by mouth twice daily. thiamine (VITAMIN B1) 100 mg Take 100 mg by mouth once daily. ondansetron (PF) (ZOFRAN) 4 mg Inject 4 mg intravenously every 6 hours as needed. haloperidol lactate (HALDOL) 5 mg Take 5 mg by mouth every 6 hours as needed. ipratropium-albuterol (DUONEB) 3 mL Inhale 3 mL as instructed four times daily. metoprolol tartrate (short acting) (LOPRESSOR) 100 mg Take 100 mg by mouth every 8 hours. diltiazem (CARDIZEM) 60 mg 60 mg by NASOGASTRIC route every 6 hours. propofol infusion (DIPRIVAN) 1.091-5.455 mg/min Inject 1.091-5.455 mg/min intravenously continuous. metoclopramide HCl (REGLAN) 10 mg Inject 10 mg intravenously every 6 hours as needed. polyethylene glycol 3350 (MIRALAX, GLYCOLAX) 17 g Take 17 g by mouth once daily. bisacodyl (DULCOLAX) 10 mg 10 mg by RECTAL route once daily as needed (If now bowel movement by POD#5). melatonin 6 mg Take 6 mg by mouth daily at bedtime. aspirin 81 mg Take 81 mg by mouth once daily. !! 0.9% NaCl 10 mL Inject 10 mL intravenously every 12 hours. !! 0.9% NaCl 20 mL Inject 20 mL intravenously as needed (FLUSH WITH 20 ML OF 0.9% SODIUM CHLORIDE AFTER EACH BLOOD DRAW.). !! - Potential duplicate medications found. Please discuss with provider. TIME OF CARE: Discharge Management: I personally spent greater than 30 minutes involved in the discharge management of this patient. SIGNATURE: Sommer Garner APRN.BEHAVIORAL HEALTH CONSULTANT PAGER/CONTACT #: DATE: April 27, 2018 TIME: 2:38 PM DISCHARGE DISCUSSION: Discussed with patient and/or family, as appropriate, discharge plans including, but not limited to: Medication changes Activity restrictions Diet On-going treatment plans outside hospital (i.e.; wound care, etc) Expectations / prognosis of condition(s) Follow-up physicians, dates, contact information Issues to watch for which may indicate decline in condition(s) and should prompt contact with healthcare team. Directed whom to call for what issues. The patient and/or family were fully informed of the above findings and plan of care. They had the opportunity to ask questions and raise any issues of concern, all of which were answered and dealt with by me to their stated satisfaction. This was a 40 minute patient encounter with greater than 50% of the time devoted to counseling of the patient and/or family and coordination of care. This time does NOT include that spent performing or supervising any procedures. CASE MANAGEM Observed: 04/27/2018 Status: COMPLETED Source: [place] 10:07 AM CLINIC OTHER CAMPUS REPOSITORY HNO ID: [id number] Author: Jeri Johnson) RAINA Coppola Service: Care Management Author Type: Registered Nurse Type: Care Mgt Progress Note Filed: 04/27/2018 2:53 PM Note Text: Ok'd for admission to [facility] today. 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 Pt aware. Spoke to Sister, Trev. She is aware of discharge to [facility]. [facility] liaison aware of need for bedside sitter upon arrival. CHEST 1 VIEW Observed: 04/27/2018 Status: F Source: [facility] 9:24 AM HEALTH SYSTEM REPOSITORY Performed at [facility] APPROVED BY: Efren Benson MD EXAM TITLE: CHEST 1 VIEW DATE: 04/27/2018 09:10 INDICATION: Tracheostomy. History of cough. COMPARISON: 04/22/[address] scan. Portable frontal view of the chest shows tracheostomy tube with tip at the level of T2. The patient has had previous median sternotomy with intact sternal wires. Surgical clips are seen along the left heart border from previous coronary artery bypass graft. The heart is moderately enlarged. Small inspiration with crowding of vascular markings. Faint increased densities noted throughout both lungs similar to prior CT scan. This may represent mild edema superimposed on chronic underlying l billy disease such as emphysema. IMPRESSION: Stable appearance of the chest when compared to prior CT scan. Cardiomegaly and changes in the lungs may be indicative of congestive heart failure with edema superimposed on chronic lung disease such as emphysema. PROGRESS Observed: 04/27/2018 Status: COMPLETED Source: [place] 6:42 AM CLINIC OTHER CAMPUS REPOSITORY HNO ID: [id number] Author: Sommer Garner (Cns) Service: Trauma Author Type: Nurse Specialist Type: Progress Notes Filed: 04/27/2018 11:58 AM Note Text: Trauma Surgery Progress Note SERVICE DATE: 04/27/2018 SUBJECTIVE: No acute events overnight. Sitter at bedside for impulsive behavior. Tolerating tube feeds, Dysphagia 2 diet. Trach collar with O2 at 28%. Alert, oriented to person, place, but impulsive - tries to get up to chair without assistance. Voiding. Last BM 2 days ago. Sitter sts thick productive cough. Tolerating diet DIET TUBE FEED - CONTIN WITH TRAY OBJECTIVE: Vitals: Temp (24hrs), Av.6 ?C (97.9 ?F), Min:36.2 ?C (97.2 ?F), Max:37 ?C (98.6 ?F) BP 133/97 Pulse 62 Temp 36.4 ?C (97.5 ?F) (Axillary) Resp 18 Ht 182.9 cm (6') Wt 97 kg (213 lb 13.5 oz) SpO2 98% BMI 29.00 kg/m? O2 Therapy: Trach Collar IANDO: Date 04/26/18 07 - 04/27/18 0659 04/27/18 07 - 04/28/18 0659 Shift 0756-0643 6320-2734 5571-1971 24 Hour Total 9623-6632 2540-5847 6911-4139 24 Hour Total I N T A K E PO 930 4512 613 6471 PO 480 120 600 Tube Feed Intake (GI Feed/Drain 04/23/181850 Admission to Hospital Gastrostomy-Jejunostomy (G-J) Abdomen) 450 6588 009 0296 IV 350 100 450 IVPB 250 250 Levetiracetam IV 100 100 200 Irrigants 60 115 30 205 Irrigant/Flush Amount In (GI Feed/Drain 04/23/181850 Admission to Hospital Gastrostomy-Jejunostomy (G-J) Abdomen) 60 115 30 205 Shift Total 1340 4901 654 1070 O U T P U T Urine 151 325 351 827 Void (ml) 150 325 350 825 Urine Not Saved 1 1 2 Shift Total 151 325 351 827 Weight (kg) 97 97 97 97 97 97 97 97 MEDICATIONS Current Facility-Administered Medications: enoxaparin 40 mg injection (LOVENOX) 40 mg SUBCUTANEOUS q 24 HR melatonin 3 mg tab(s) 3 mg ORAL AT BEDTIME iv contrast (radiology procedure) INTRAVENOUS DIRECTED PRN valproic acid 500 mg CUP (DEPAKENE) 500 mg PEG q 8 H atorvastatin 40 mg tab(s) (LIPITOR) 40 mg PEG AT BEDTIME haloperidol lactate 5 mg oral liquid (HALDOL) 5 mg PEG q 8 H PRN albuterol 2.5 mg /3 mL (0.083 %) 2.5 mg (PROVENTIL) 2.5 mg INHALATION q 2 H PRN ipratropium-albuterol 3 mL nebulizer solution (DUONEB) 3 mL INHALATION QID thiamine 100 mg tab(s) (VITAMIN B1) 100 mg PEG DAILY budesonide 0.5 mg/2 mL 1 mg (PULMICORT) 1 mg INHALATION BID Chlorhexidine Gluconate 0.12 % 15 mL (PERIDEX) 15 mL ORAL q 12 H ondansetron 4 mg tab(s) (ZOFRAN) 4 mg ORAL q 6 H PRN Or ondansetron (PF) 4 mg injection (ZOFRAN) 4 mg INTRAVENOUS q 6 H PRN morphine 4 mg injection 4 mg INTRAVENOUS q 4 H PRN acetaminophen 650 mg CUP (TYLENOL) 650 mg PEG q 6 H PRN oxyCODONE 5-10 mg oral liquid (ROXICODONE) 5-10 mg ORAL q 6 H PRN docusate sodium oral liquid 100 mg/10 mL (DIOCTO,COLACE) 100 mg PEG BID levETIRAcetam iv piggyback 1,000 mg in NaCl (iso-osmotic) 100 mL (KEPPRA) 1,000 mg INTRAVENOUS TID amiodarone 200 mg tab(s) (PACERONE) 200 mg PEG DAILY lisinopril 2.5 mg tab(s) 2.5 mg PEG DAILY nadolol 40 mg tab(s) (CORGARD) 40 mg PEG DAILY famotidine 20 mg oral liquid (PEPCID) 20 mg PEG BID senna leaf extract 176 mg/5 mL 528 mg 15 mL PEG BID Labs: Recent Labs 04/27/18 0310 04/26/18 0520 NA 136 135* K 4.2 4.1 CHLOR 104 104 CO2 26 25 BUN 9 10 CREAT 0.59* 0.61* GLUC 87 106* ANION 10 10 CA 8.1* 8.3* MG 1.8 1.8 P 3.4 2.3* WBC 6.05 5.66 HB 11.2* 10.8* HCT 35.2* 33.0* PLT 192 203 Exam: GENERAL: No distress, Alert, follows commands but impulsive NEURO: AlertANDoriented x2, CN II-XII grossly intact HEENT: normocephalic, abrasions/lac (sutured), trach LUNGS: Unlabored breathing, receiving trach collar nebs, lungs CTA bilat after cough CARDIAC: Regular rate and rhythm as above ABDOMEN: Soft, non-tender, non-distended; PEG tube ([employer]ERSON[employer]ITY) EXTREMITIES: MATHEW, No deformities, No edema SKIN: Skin color, texture, turgor normal, No rashes or lesions ASSESSMENT AND PLAN: Active Hospital Problems Diagnosis Date Noted - SDH (subdural hematoma) (HCC) 04/22/2018 - Fall from wheelchair 04/22/2018 - CAD (coronary artery disease) - Chronic respiratory failure (HCC) - Weakness 03/09/2018 - Encephalopathy 03/04/2018 Overview Note: - Malnutrition of moderate degree (HCC) 02/20/2018 ? 67 year old male with h/o trach/PEG s/p fall from wheelchair with SDH, forehead laceration and 1st rib fracture ? - Tube feeds/ diet per speech reccs (mechanical soft) - Bowel regimen - Pain control - DVT ppx - Lovenox, SCD's - Neurochecks - Keppra - HOB to 30 - SBP <160 - Blood cultures: one NGTD, one with gram variable bacilli. Normal WBC. - CXR-p - Dispo planning; SNF acceptance delayed by pulsox 04/26. Trach collar maintained at 28% X 24 hrs. Addendum: CXR -; DC today. Trauma Service Pager: For questions or concerns Mon-Tue 6a-5p please page [phone]. After 5pm and on Weekends and Holidays, please page [phone] if in ICU or [phone] if on RNF. SIGNATURE:Sommer Garner APRN, BEHAVIORAL HEALTH CONSULTANT PATIENT NAME: Jeffrey Cullen DATE: April 27, 2018 TIME: 7:06 AM Pager: above IONIZED CALCIUM Collected: 04/27/2018 Status: F Source: [facility] 3:10 AM HEALTH SYSTEM REPOSITORY TYPE CODE TESTS RESULT OUT OF REFERENCE UNITS RANGE LAB CAION(LOINC 4.43-4.93 mg/dL ) Ionized 4.69 Calcium LAB PHCAI(LOINC 7.320-7.420 ) pH 7.403 LAB CAPH(LOINC) 4.36-4.73 mg/dL Ionized 4.70 Ca,PH7.4 Performed By: #### IONCA #### [facility] [address] [place] [address] HEMOGRAM/DIFF Collected: 04/27/2018 Status: F Source: [facility] 3:10 AM HEALTH SYSTEM REPOSITORY TYPE CODE TESTS RESULT OUT OF REFERENCE UNITS RANGE LAB WBC(LOINC) 4.23-9.07 thou/cmm WBC 6.05 LAB RBC(LOINC) 4.63-6.08 mil/cmm Low RBC 3.61 LAB HGB(LOINC) 13.7-17.5 g/dL Low Hgb 11.2 LAB HCT(LOINC) 40.1-51.0 % Low Hct 35.2 LAB MCV(LOINC) 83.2-95.6 fl MCV High 97.5 LAB MCH(LOINC) 25.7-32.2 pg MCH 31.0 LAB MCHC(LOINC 32.3-36.5 % ) Low MCHC 31.8 LAB RDW(LOINC) 11.6-14.4 % RDW High 14.5 LAB RDWSD(LOIN 36.1-45.8 fl C) RDW SD High 51.7 LAB PLT(LOINC) 141-365 thou/cmm Platelet 192 LAB MPV(LOINC) 8.7-12.0 fl MPV 10.1 LAB SEG(LOINC) % Seg Neutrophil 59.3 LAB IGRE(LOINC % ) Immature Grans 0.50 LAB LYMPH(LOIN % C) Lymphocyte 21.7 LAB MNO(LOINC) % Monocyte 14.2 LAB EOSIN(LOIN % C) Eosinophil 3.5 LAB BASO(LOINC % ) Basophil 0.8 LAB SEGN(LOINC 1.78-5.38 thou/cmm ) Abs. Neut (ANC) 3.59 LAB IGAB(LOINC 0.00-0.05 thou/cmm ) Abs Immature Grans 0.03 LAB LYMN(LOINC 0.84-2.85 thou/cmm ) Abs. Lymph 1.31 LAB MONON(LOIN 0.30-0.82 thou/cmm C) Abs. High Sl[place] 0.86 LAB EOSN(LOINC 0.04-0.54 thou/cmm ) Abs. Eosin 0.21 LAB BASON(LOIN 0.01-0.08 thou/cmm C) Abs. Baso 0.05 Performed By: #### CBCD1 #### [address] [address] BASIC PANEL Collected: 04/27/2018 Status: F Source: [facility] 3:10 AM HEALTH SYSTEM REPOSITORY TYPE CODE TESTS RESULT OUT OF REFERENCE UNITS RANGE LAB NA(LOINC) 136-145 mEq/L Sodium Blood 136 LAB K(LOINC) 3.5-5.1 mEq/L Potassium Blood 4.2 LAB CL(LOINC) 98-107 mEq/L Chloride Blood 104 LAB CO2(LOINC) 21-32 mEq/L CO2 Blood 26 LAB GLU(LOINC) 70-99 mg/dL Glucose Blood 87 LAB BUN(LOINC) 7-18 mg/dL BUN Blood 9 LAB CREA(LOINC 0.67-1.17 mg/dL ) Low Creatinine Blood 0.59 LAB CA(LOINC) 8.5-10.1 mg/dL Low Calcium Blood 8.1 LAB ANGAP(LOIN 8-16 C) Anion Gap 10 Performed By: #### P8 #### [place] [address] MAGNESIUM BLOOD Collected: 04/27/2018 Status: F Source: [facility] 3:10 AM HEALTH SYSTEM REPOSITORY TYPE CODE TESTS RESULT OUT OF REFERENCE UNITS RANGE LAB MAG(LOINC) 1.6-2.6 mg/dL Magnesium Blood 1.8 Performed By: #### MAG #### [place] [address] PHOSPHORUS BLOOD Collected: 04/27/2018 Status: F Source: [facility] 3:10 AM HEALTH SYSTEM REPOSITORY TYPE CODE TESTS RESULT OUT OF REFERENCE UNITS RANGE LAB PHOS(LOINC 2.5-4.9 mg/dL ) Phosphorus Blood 3.4 Performed By: #### PHOS #### [place] [address] MDRD GFR Collected: 04/27/2018 Status: F Source: [facility] 3:10 AM HEALTH SYSTEM REPOSITORY TYPE CODE TESTS RESULT OUT OF RANGE REFERENCE UNITS LAB GFRFN(LOINC >60mL/min/1.73m ) 2 eGFR >60 Result Comment: If the patient is , multiply the result by 1.210. Performed By: #### GFR #### [place] [address] TOTAL 25-OH VITAMIN Collected: 04/26/2018 Status: F Source: [facility] D 5:45 PM HEALTH SYSTEM REPOSITORY TYPE CODE TESTS RESULT OUT OF REFERENCE UNITS RANGE LAB 25VD1(LOINC 30.0-100.0 ng/mL ) Total 25-OH 31.2 Vitamin D Performed By: #### 25VD1 #### [facility] [address] [place], [place] [address] THERAPY NT Observed: 04/26/2018 Status: COMPLETED Source: [place] 4:23 PM CLINIC OTHER CAMPUS REPOSITORY HNO ID: [id number] Author: Ursula MoodyPtKristin Goyal Service: Physical Therapy Author Type: Physical Therapist Type: Therapy (PT/OT/Speech/Resp) Filed: 04/26/2018 4:30 PM Note Text: Physical Therapy Treatment SERVICE DATE: 04/26/2018 SERVICE TIME: 1550 to 1615 ROOM: [place] [address] Recommended Discharge Disposition: Acute Rehab Justification For Post Acute Needs: Anticipate patient will tolerate 3 hours of daily therapy at the time of admission to post-acute setting;Anticipated community discharge;Anticipate that patient will require daily (5x/wk) skilled therapy in a post-acute facility setting at the time of acute hospital discharge;Willing to participate;Motivated;Medically complex;Good sitting tolerance Recommended Discharge Equipment: (Defer to receiving facility) PT Recommendations to Nursing: Ambulate with device;OOB for Meals;With assist of 2 people Device: Wheeled Walker PT 6 Clicks Score: 15 Precautions/Activity Restrictions: Fall Risk;Lines/Tubes/Drains;Sitter (trach 5L High flow O2, IV, PEG) Isolation Type: None ASSESSMENT : Patient progressing very well towards physical therapy goals. Patient required a decrease in assist for ambulation and increased distance to 30 feet. Patient was on 5L high flow O2 and was able to maintain SPO2 at 96%. Will continue to progress mobility to tolerance. Patient will benefit from continued intensive physical therapy at discharge. Patient Disposition at Start of Session: OOB in Chair Patient Disposition at End of Session: Supine in Bed (sitter present ) Tolerated Full Session Physical Therapy Problem List: Decreased Activity Tolerance;Decreased Range Of Motion;Decreased Strength;Functional Mobility Impairment;Balance Impaired;Safety Deficits Patient /Caregiver Goals: Go Home Goals for Plan of Care: Transfer supine to/from sit with: Verbal Cues Only Transfer sit to/from stand with: Contact Guard Assistance Ambulate with: Contact Guard Assistance Distance: 15' intervals with appropriate safety and sequencing without LOB Device: Wheeled Walker Goal: pt to perform lower extremity strengthening ther-ex 2x15 reps Progress Toward Goals: Progressing as expected Rehab Potential: Good PLAN: Treatment Frequency (times per week): 5 (2-5) Current admission Treatment Interventions: Education;Joint Mobility;Strengthening;Functional Mobility Training;Balance Training;Neuromuscular Re-education Plan of Care developed with: Patient TREATMENT INTERVENTIONS: Therapy Diagnosis: Reduced mobility-other;Muscle Weakness (generalized) Interventions Provided: Therapeutic Exercise (04821);Therapeutic Activity (92764);Gait Training (59233) Therapeutic Exercise (93801) Treatment Minutes: 8 1 unit Skilled Intervention(s): Patient completed general strengthening exercises in supine, at edge of bed or chair (heel raises, toe raises, seated hip flexion, long arc quad) x 15 reps bilateral lower extremity. Pt required minimal verbal cueing for facilitation of muscle control, optimal recruitment, and alignment. Therapeutic Activity (49635) Treatment Minutes: 5 0 units Skilled Intervention(s): Instruction in stand to sit technique with lower extremities touching chair/bed and reaching back for surface, patient requires moderate verbal and tactile cueing with increased forward weight shift to stand Instruction in sit to and from stand technique with proper hand placement and body positioning at edge of bed/chair, patient requires moderate verbal and tactile cueing Gait Training (83990) Treatment Minutes: 12 1 unit Skilled Intervention(s): Patient instructed on appropriate hand placement on the wheeled walker while maintaining walker frame close to body. Patient encouraged for upright posture and forward gaze and increasing base of support to improve stability and increase activity tolerance. Patient demonstrates increase in ambulation distance to 30 feet. SPO2 at 96% on 5L O2. Total Timed Code Treatment Minutes: 25 Total Treatment Time (minutes): 25 FUNCTIONAL G CODE: PT 6 Clicks Score: 15 (04/26/18 1550) Mobility: Walking and Moving Around Current Status (G8978): CK (04/26/18 1550) Mobility: Walking and Moving Around Goal Status (G8979): CJ (04/26/18 1550) Based on clinical assessment and the score on the 6 Clicks Functional Assessment Tool, the G code and corresponding severity modifiers are documented above. SUBJECTIVE: Current Hospital Course: Chart reviewed and no significant medical updates relevant to therapy were noted Reason for Physical Therapy Consult : PT evaluation Relevant Past Medical History: CABG, PEG, trach Patient Report: Received sitting up in the chair upon arrival, reports 5/10 back pain. Patient requesting to ambulate. Home Environment Patient Lives With: Facility Care (Recent transfer from [facility] to SNF) Assistance Available: 24 Hour Prior Functional Level: Required Assistance Assistance Required With: Transfers;Ambulation;Self Care;Meals;Safety;Wheelchair Mobility (and all IADL provided by facility) Prior Functional Level Comments: Recent transfer from [facility] to skilled facility. Receiving assist with transfers to w/c, ADL. Beginning to progress when had fall from w/c requiring readmission to acute care. OBJECTIVE: CURRENT FUNCTIONAL STATUS: Current Functional Mobility Assist Level Additional Information Rolling Supine to Sit Minimal Assistance (HOB elevated ) Sit to Supine Minimal Assistance Scooting Sit to Stand Moderate Assistance Stand to Sit Moderate Assistance Bed to Chair Toilet/Commode Gait Minimal Assistance Gait Device: Wheeled Walker Gait Distance (feet): 30' Stairs Curb Step Car Transfer General Gait Deviations: Arm swing decreased;Gypsy decreased;Flexed trunk posture;Narrow Base of Support;Shuffling Gait;Difficulty changing direction/turning;Non-functional gait speed Balance: Static Sitting;Static Standing;Dynamic Standing Static Sitting Balance: Stand By Assistance Static Standing Balance: Minimal Assistance Dynamic Standing Balance: Minimal Assistance Please see discipline specific clinical documentation flowsheet for complete details for this therapy evaluation/treatment. SIGNATURE: Ursula Goyal PT PATIENT NAME: Jeffrey Cullen DATE: April 26, 2018 TIME: 4:23 PM PAGER/CONTACT #: [phone] PROGRESS Observed: 04/26/2018 Status: COMPLETED Source: [place] 3:54 PM CLINIC OTHER CAMPUS REPOSITORY HNO ID: [id number] Author: Eliza Lacy Service: Hospital Medicine Author Type: Physician Type: Progress Notes Filed: 04/26/2018 3:58 PM Note Text: DEPARTMENT OF HOSPITAL MEDICINE PROGRESS NOTE SERVICE DATE: 04/26/2018 SERVICE TIME: 3:54 PM Hospital Medicine/Primary Attending: Eliza Lacy MD NIGHT AND WEEKEND COVERAGE: After 7pm, please call cross cover pager #[phone] Subjective CC/Follow up for Medical management INTERVAL HPI: no acute events overnight Pt reported doing ok. Oriented to self, reported LBP. Sitting in chair and about to work with PT and RN at bedside Pt denied any fever, chills, nausea, vomiting, abd pain, chest pain or sob. MEDICATIONS: Reviewed Current hospital medications: enoxaparin 40 mg injection (LOVENOX) 40 mg SUBCUTANEOUS q 24 HR melatonin 3 mg tab(s) 3 mg ORAL AT BEDTIME iv contrast (radiology procedure) INTRAVENOUS DIRECTED PRN valproic acid 500 mg CUP (DEPAKENE) 500 mg PEG q 8 H atorvastatin 40 mg tab(s) (LIPITOR) 40 mg PEG AT BEDTIME haloperidol lactate 5 mg oral liquid (HALDOL) 5 mg PEG q 8 H PRN albuterol 2.5 mg /3 mL (0.083 %) 2.5 mg (PROVENTIL) 2.5 mg INHALATION q 2 H PRN ipratropium-albuterol 3 mL nebulizer solution (DUONEB) 3 mL INHALATION QID thiamine 100 mg tab(s) (VITAMIN B1) 100 mg PEG DAILY budesonide 0.5 mg/2 mL 1 mg (PULMICORT) 1 mg INHALATION BID Chlorhexidine Gluconate 0.12 % 15 mL (PERIDEX) 15 mL ORAL q 12 H ondansetron 4 mg tab(s) (ZOFRAN) 4 mg ORAL q 6 H PRN ondansetron (PF) 4 mg injection (ZOFRAN) 4 mg INTRAVENOUS q 6 H PRN morphine 4 mg injection 4 mg INTRAVENOUS q 4 H PRN acetaminophen 650 mg CUP (TYLENOL) 650 mg PEG q 6 H PRN oxyCODONE 5-10 mg oral liquid (ROXICODONE) 5-10 mg ORAL q 6 H PRN docusate sodium oral liquid 100 mg/10 mL (DIOCTO,COLACE) 100 mg PEG BID levETIRAcetam iv piggyback 1,000 mg in NaCl (iso-osmotic) 100 mL (KEPPRA) 1,000 mg INTRAVENOUS TID amiodarone 200 mg tab(s) (PACERONE) 200 mg PEG DAILY lisinopril 2.5 mg tab(s) 2.5 mg PEG DAILY nadolol 40 mg tab(s) (CORGARD) 40 mg PEG DAILY famotidine 20 mg oral liquid (PEPCID) 20 mg PEG BID senna leaf extract 176 mg/5 mL 528 mg 15 mL PEG BID Objective PHYSICAL EXAM: BP 153/72 Pulse 65 Temp (Src) 98.8 (Temporal Artery) Resp 18 Ht 6' 0 (1.83m) Wt 213 lb 13.5 oz (97.0kg) SpO2 100% BMI 29.00 kg/(m2). Gen: Alert, oriented to self, no distress, cooperative HENT: NCAT, Eyes: nonicteric sclera, Neck: supple, Trach in place CV: RRR, normal S1,S2, Resp: non-labored, mild + rhonchi , GI: soft, ND, NT, PEG tube in place Neuro: Limited given poor cooperation but no focal deficit MS: no LE edema, no deformity Skin: warm, no rash Psych: mild agitation DATA: Diagnostic tests reviewed for today's visit: CBC, Coags, BMP, Mg, Phos Recent Labs 04/26/18 0520 04/25/18 0315 04/24/18 0243 WBC 5.66 5.70 6.84 HB 10.8* 10.3* 9.7* HCT 33.0* 32.3* 30.6* PLT 203 187 186 NA 135* 141 141 K 4.1 3.8 4.1 CHLOR 104 110* 112* CO2 25 27 26 BUN 10 9 11 CREAT 0.61* 0.60* 0.61* GLUC 106* 110* 93 CA 8.3* 8.1* 8.0* MG 1.8 1.8 1.8 P 2.3* 3.0 2.8 CSF AND Dilantin Liver Function, Amylase, AND Lipase Cardiac Enzymes ABGs Assessment/Plan Encephalopathy - unsure of mental status at baseline - cont sitter - seen by neurology on 03/11/18 for metabolic vs infectious encephalopathy. No clear reason for encephalopathy was found and work up was negative with MRI and LP at that time - pt was discharged on haldol and valproic acid at that time ? Chronic respiratory failure on O2 via trach ? Dysphagia- on tube feedings via PEG tube ? Hx of CAD/CABG- recommend starting asa once deemed safe by NS and primary team - cont current meds. ? One positive BC with Gram variable bacili - recommend ID consult ? Hx of a-fib - eliquis on hold, cont rate control ? VTE PROPHYLAXIS:??per primary service ? Disposition:?Extended Care Facility Plan of care discussed with:?Patient SIGNATURE: Eliza Lacy MD PATIENT NAME: Jeffrey Cullen DATE: April 26, 2018 TIME: 3:54 PM PAGER/CONTACT #: [phone] Observed: 04/26/2018 Status: COMPLETED Source: [place] 3:11 PM CLINIC OTHER CAMPUS REPOSITORY HNO ID: [id number] Author: Saundra Caraballo RD Service: Nutrition Therapy Author Type: Registered Dietitian Type: Nutrition Filed: 04/26/2018 3:17 PM Note Text: NUTRITION THERAPY PROGRESS NOTE SERVICE DATE: 04/26/2018 SERVICE TIME: 1100am RECOMMENDED DIAGNOSIS: MODERATE PROTEIN-CALORIE MALNUTRITION per Registered Dietitian on 04/23/18 In the context of Chronic Illness or Injury based on: Subcutaneous Fat Loss: Mild Loss Muscle Loss Moderate Loss ? NUTRITION CARE PLAN Pt seen for f/u In the context of Chronic Illness or Injury based on: Subcutaneous Fat Loss: Mild Loss Muscle Loss Moderate Loss ? Intervention: Continue with current tf's: Isosource 56ml/hr Diet per speech: Dysphagia 2 with thin liquids Adjust tf's accordingly Monitor and Evaluation: Goal: Meet >75% of estimated needs Monitor fluid/electrolyte balance Monitor labs, I/Os, vital signs, weight Monitor tolerance to tube feeding Discharge Nutrition Recommendations: To be determined Per HPI: This is a 67 year old white male. Presented to [facility] from his group home after a fall from his wheelchair, struck his face and had a laceration to the left forehead that was repaired at [facility]. CT head showed SDH, so he was transferred to [facility]. Patient was recently discharged to his group home from [facility]. S/p Trach/PEG. Recent h/o CABG in 02/12, complicated with resp failure, encephalopathy, and E. Coli/Klebsiella PNA. Afib on Eliquis. Given Feba at [facility]. Baseline encephalopathy, oriented to person and place, but not time. ?ACTIVE PROBLEM LIST Inguinal Hernia Without Mention of Obstruction Or Gangrene, Unilateral Or Unspecified, (Not Specified As Recurrent) Nstemi (Non-St Elevated Myocardial Infarction) (Hcc) Nsvt (Nonsustained Ventricular Tachycardia) (Hcc) Nicotine use disorder, F17.2 Malnutrition of Moderate Degree (Hcc) Encephalopathy Weakness Acute Respiratory Failure With Hypoxia (Hcc) Afib (Hcc) Cad (Coronary Artery Disease) Chronic Respiratory Failure (Hcc) Sdh (Subdural Hematoma) (Hcc) Fall From Wheelchair Interval History: Tolerating TF's +BM. Still requiring sitter for impulsive behavior Admission Weight: 104.3 kg (230 lb) Current Weight: 97 kg (213 lb 13.5 oz) Body mass index is 29 kg/m?. overweight Current Facility-Administered Medications: sodium phosphate 30 mmol in D5W 250 mL 30 mmol INTRAVENOUS ONCE enoxaparin 40 mg injection (LOVENOX) 40 mg SUBCUTANEOUS q 24 HR melatonin 3 mg tab(s) 3 mg ORAL AT BEDTIME iv contrast (radiology procedure) INTRAVENOUS DIRECTED PRN valproic acid 500 mg CUP (DEPAKENE) 500 mg PEG q 8 H atorvastatin 40 mg tab(s) (LIPITOR) 40 mg PEG AT BEDTIME haloperidol lactate 5 mg oral liquid (HALDOL) 5 mg PEG q 8 H PRN albuterol 2.5 mg /3 mL (0.083 %) 2.5 mg (PROVENTIL) 2.5 mg INHALATION q 2 H PRN ipratropium-albuterol 3 mL nebulizer solution (DUONEB) 3 mL INHALATION QID thiamine 100 mg tab(s) (VITAMIN B1) 100 mg PEG DAILY budesonide 0.5 mg/2 mL 1 mg (PULMICORT) 1 mg INHALATION BID Chlorhexidine Gluconate 0.12 % 15 mL (PERIDEX) 15 mL ORAL q 12 H ondansetron 4 mg tab(s) (ZOFRAN) 4 mg ORAL q 6 H PRN Or ondansetron (PF) 4 mg injection (ZOFRAN) 4 mg INTRAVENOUS q 6 H PRN morphine 4 mg injection 4 mg INTRAVENOUS q 4 H PRN acetaminophen 650 mg CUP (TYLENOL) 650 mg PEG q 6 H PRN oxyCODONE 5-10 mg oral liquid (ROXICODONE) 5-10 mg ORAL q 6 H PRN docusate sodium oral liquid 100 mg/10 mL (DIOCTO,COLACE) 100 mg PEG BID levETIRAcetam iv piggyback 1,000 mg in NaCl (iso-osmotic) 100 mL (KEPPRA) 1,000 mg INTRAVENOUS TID amiodarone 200 mg tab(s) (PACERONE) 200 mg PEG DAILY lisinopril 2.5 mg tab(s) 2.5 mg PEG DAILY nadolol 40 mg tab(s) (CORGARD) 40 mg PEG DAILY famotidine 20 mg oral liquid (PEPCID) 20 mg PEG BID senna leaf extract 176 mg/5 mL 528 mg 15 mL PEG BID Intake/Output 04/22/18 07 - 04/23/18 0659 04/23/18 07 - 04/24/18 0659 04/24/18 07 - 04/25/18 0659 04/25/18 07 - 04/26/18 0659 04/26/18 07 - 04/27/18 0659 Intake (ml) 0 3055 1258 2509 480 Output (ml) 725 1026 301 428 151 Net (ml) -725 2029 957 2081 329 MNT Billing Type: Re-assess/15 min 2 units SIGNATURE: Saundra Caraballo RD PATIENT NAME: Jeffrey Cullen DATE: April 26, 2018 TIME: 3:12 PM PAGER: [phone] CASE MANAGEM Observed: 04/26/2018 Status: COMPLETED Source: [place] 9:11 AM [facility] REPOSITORY HNO ID: [id number] Author: Jeri (Rn) RAINA Coppola Service: Care Management Author Type: Registered Nurse Type: Care Mgt Progress Note Filed: 04/26/2018 2:49 PM Note Text: Accepted @ [facility] when medically ready for discharge. No pre-cert required. Bedside sitter does NOT need to be discontinued. PROGRESS Observed: 04/26/2018 Status: COMPLETED Source: [place] 7:05 AM [facility] REPOSITORY HNO ID: [id number] Author: Sommer (Shilo) Pascual Service: Trauma Author Type: Nurse Specialist Type: Progress Notes Filed: 04/26/2018 8:58 AM Note Text: Trauma Surgery Progress Note SERVICE DATE: 04/26/2018 SUBJECTIVE: No acute events overnight. Sitter at bedside for impulsive behavior. Tolerating tube feeds. Speech Therapy advanced pt to Dysphagia 2 diet. Denies cp/sob - ill fitting trach collar with O2 at 8l - advised Nursing to change collar to evaluate O2 sat. Denies headache - alert, oriented to person, place, but impulsive - tries to get up to chair without assistance. Voiding. Last BM 2 days ago. Tolerating diet DIET TUBE FEED - CONTIN WITH TRAY OBJECTIVE: Vitals: Temp (24hrs), Av.5 ?C (97.7 ?F), Min:36.2 ?C (97.2 ?F), Max:37.1 ?C (98.8 ?F) BP 153/72 Pulse 76 Temp 37.1 ?C (98.8 ?F) (Temporal Artery) Resp 18 Ht 182.9 cm (6') Wt 97 kg (213 lb 13.5 oz) SpO2 97% BMI 29.00 kg/m? O2 Therapy: Room Air IANDO: Date 04/25/18 07 - 04/26/18 0659 04/26/18699 - 04/27/18 0659 Shift 9608-7018 6590-8605 9524-6982 24 Hour Total 2601-4884 1284-7185 3950-1731 24 Hour Total I N T A K E PO 1055 938 116 6366 PO 720 222 942 Tube Feed Intake (GI Feed/Drain 04/23/181850 Admission to Hospital Gastrostomy-Jejunostomy (G-J) Abdomen) 335 152 218 1705 IV 200 100 300 Levetiracetam IV 200 100 300 Irrigants 140 30 30 200 Irrigant/Flush Amount In (GI Feed/Drain 04/23/181850 Admission to Hospital Gastrostomy-Jejunostomy (G-J) Abdomen) 140 30 30 200 Shift Total 1395 069 020 3424 O U T P U T Urine 2 201 225 428 Void (ml) 200 225 425 Urine Incontinence/Not Saved 2 x 1 x 3 x Urine Not Saved 2 1 3 Tubes 0 0 Output (GI Feed/Drain 04/23/181850 Admission to Hospital Gastrostomy-Jejunostomy (G-J) Abdomen) 0 0 Shift Total 2 201 225 428 Weight (kg) 97 97 97 97 97 97 97 97 MEDICATIONS Current Facility-Administered Medications: sodium phosphate 30 mmol in D5W 250 mL 30 mmol INTRAVENOUS ONCE enoxaparin 40 mg injection (LOVENOX) 40 mg SUBCUTANEOUS q 24 HR melatonin 3 mg tab(s) 3 mg ORAL AT BEDTIME iv contrast (radiology procedure) INTRAVENOUS DIRECTED PRN valproic acid 500 mg CUP (DEPAKENE) 500 mg PEG q 8 H atorvastatin 40 mg tab(s) (LIPITOR) 40 mg PEG AT BEDTIME haloperidol lactate 5 mg oral liquid (HALDOL) 5 mg PEG q 8 H PRN albuterol 2.5 mg /3 mL (0.083 %) 2.5 mg (PROVENTIL) 2.5 mg INHALATION q 2 H PRN ipratropium-albuterol 3 mL nebulizer solution (DUONEB) 3 mL INHALATION QID thiamine 100 mg tab(s) (VITAMIN B1) 100 mg PEG DAILY budesonide 0.5 mg/2 mL 1 mg (PULMICORT) 1 mg INHALATION BID Chlorhexidine Gluconate 0.12 % 15 mL (PERIDEX) 15 mL ORAL q 12 H ondansetron 4 mg tab(s) (ZOFRAN) 4 mg ORAL q 6 H PRN Or ondansetron (PF) 4 mg injection (ZOFRAN) 4 mg INTRAVENOUS q 6 H PRN morphine 4 mg injection 4 mg INTRAVENOUS q 4 H PRN acetaminophen 650 mg CUP (TYLENOL) 650 mg PEG q 6 H PRN oxyCODONE 5-10 mg oral liquid (ROXICODONE) 5-10 mg ORAL q 6 H PRN docusate sodium oral liquid 100 mg/10 mL (DIOCTO,COLACE) 100 mg PEG BID levETIRAcetam iv piggyback 1,000 mg in NaCl (iso-osmotic) 100 mL (KEPPRA) 1,000 mg INTRAVENOUS TID amiodarone 200 mg tab(s) (PACERONE) 200 mg PEG DAILY lisinopril 2.5 mg tab(s) 2.5 mg PEG DAILY nadolol 40 mg tab(s) (CORGARD) 40 mg PEG DAILY famotidine 20 mg oral liquid (PEPCID) 20 mg PEG BID senna leaf extract 176 mg/5 mL 528 mg 15 mL PEG BID Labs: Recent Labs 04/26/18 0520 04/25/18 0315 NA 135* 141 K 4.1 3.8 CHLOR 104 110* CO2 25 27 BUN 10 9 CREAT 0.61* 0.60* GLUC 106* 110* ANION 10 8 CA 8.3* 8.1* MG 1.8 1.8 P 2.3* 3.0 WBC 5.66 5.70 HB 10.8* 10.3* HCT 33.0* 32.3* PLT 203 187 Exam: GENERAL: No distress, Alert NEURO: AlertANDoriented x3, CN II-XII grossly intact HEENT: normocephalic, abrasions/lac (sutured), trach LUNGS: Unlabored breathing, receiving trach collar nebs CARDIAC: Regular rate and rhythm as above ABDOMEN: Soft, non-tender, non-distended; PEG tube ([employer]) EXTREMITIES: MATHEW, No deformities, No edema SKIN: Skin color, texture, turgor normal, No rashes or lesions ASSESSMENT AND PLAN: Active Hospital Problems Diagnosis Date Noted - SDH (subdural hematoma) (HCC) 04/22/2018 - Fall from wheelchair 04/22/2018 - CAD (coronary artery disease) - Chronic respiratory failure (HCC) - Weakness 03/09/2018 - Encephalopathy 03/04/2018 Overview Note: - Malnutrition of moderate degree (HCC) 02/20/2018 ? 67 year old male with h/o trach/PEG s/p fall from wheelchair with SDH, forehead laceration and 1st rib fracture ? - Tube feeds/ diet per speech reccs (mechanical soft) - Bowel regimen - Pain control - DVT ppx - Lovenox, SCD's - Hypophosphatemia - replaced - Neurochecks - Keppra - HOB to 30 - SBP <160 - Blood cultures: one NGTD, one with gram variable bacilli. Normal WBC. Continue to monitor - Dispo planning; SNF acceptance pending. Trauma Service Pager: For questions or concerns Mon-Fri 6a-5p please page [phone]. After 5pm and on Weekends and Holidays, please page [phone] if in ICU or [phone] if on RNF. SIGNATURE:Sommer Garner APRN, BEHAVIORAL HEALTH CONSULTANT PATIENT NAME: Jeffrey Cullen DATE: April 26, 2018 TIME: 7:06 AM Pager: [phone] IONIZED CALCIUM Collected: 04/26/2018 Status: F Source: [facility] 5:20 AM HEALTH SYSTEM REPOSITORY TYPE CODE TESTS RESULT OUT OF REFERENCE UNITS RANGE LAB CAION(LOINC 4.43-4.93 mg/dL ) Ionized 4.66 Calcium LAB PHCAI(LOINC 7.320-7.420 ) pH High 7.428 LAB CAPH(LOINC) 4.36-4.73 mg/dL Ionized 4.73 Ca,PH7.4 Performed By: #### IONCA #### [facility] [address] [id number] HEMOGRAM/DIFF Collected: 04/26/2018 Status: F Source: [facility] 5:20 AM HEALTH SYSTEM REPOSITORY TYPE CODE TESTS RESULT OUT OF REFERENCE UNITS RANGE LAB WBC(LOINC) 4.23-9.07 thou/cmm WBC 5.66 LAB RBC(LOINC) 4.63-6.08 mil/cmm Low RBC 3.45 LAB HGB(LOINC) 13.7-17.5 g/dL Low Hgb 10.8 LAB HCT(LOINC) 40.1-51.0 % Low Hct 33.0 LAB MCV(LOINC) 83.2-95.6 fl MCV High 95.7 LAB MCH(LOINC) 25.7-32.2 pg MCH 31.3 LAB MCHC(LOINC 32.3-36.5 % ) MCHC 32.7 LAB RDW(LOINC) 11.6-14.4 % RDW High 14.6 LAB RDWSD(LOIN 36.1-45.8 fl C) RDW SD High 50.9 LAB PLT(LOINC) 141-365 thou/cmm Platelet 203 LAB MPV(LOINC) 8.7-12.0 fl MPV 10.0 LAB SEG(LOINC) % Seg Neutrophil 63.2 LAB IGRE(LOINC % ) Immature Grans 0.40 LAB LYMPH(LOIN % C) Lymphocyte 20.8 LAB MNO(LOINC) % Monocyte 10.8 LAB EOSIN(LOIN % C) Eosinophil 4.1 LAB BASO(LOINC % ) Basophil 0.7 LAB SEGN(LOINC 1.78-5.38 thou/cmm ) Abs. Neut (ANC) 3.58 LAB IGAB(LOINC 0.00-0.05 thou/cmm ) Abs Immature Grans 0.02 LAB LYMN(LOINC 0.84-2.85 thou/cmm ) Abs. Lymph 1.18 LAB MONON(LOIN 0.30-0.82 thou/cmm C) Abs. Slope 0.61 LAB EOSN(LOINC 0.04-0.54 thou/cmm ) Abs. Eosin 0.23 LAB BASON(LOIN 0.01-0.08 thou/cmm C) Abs. Baso 0.04 Performed By: #### CBCD1 #### [facility] [address] [id number] BASIC PANEL Collected: 04/26/2018 Status: F Source: [facility] 5:20 AM HEALTH SYSTEM REPOSITORY TYPE CODE TESTS RESULT OUT OF REFERENCE UNITS RANGE LAB NA(LOINC) 136-145 mEq/L Low Sodium Blood 135 LAB K(LOINC) 3.5-5.1 mEq/L Potassium Blood 4.1 LAB CL(LOINC) 98-107 mEq/L Chloride Blood 104 LAB CO2(LOINC) 21-32 mEq/L CO2 Blood 25 LAB GLU(LOINC) 70-99 mg/dL Glucose High Blood 106 LAB BUN(LOINC) 7-18 mg/dL BUN Blood 10 LAB CREA(LOINC 0.67-1.17 mg/dL ) Low Creatinine Blood 0.61 LAB CA(LOINC) 8.5-10.1 mg/dL Low Calcium Blood 8.3 LAB ANGAP(LOIN 8-16 C) Anion Gap 10 Performed By: #### P8 #### [place] [address] MAGNESIUM BLOOD Collected: 04/26/2018 Status: F Source: [facility] 5:20 AM HEALTH SYSTEM REPOSITORY TYPE CODE TESTS RESULT OUT OF REFERENCE UNITS RANGE LAB MAG(LOINC) 1.6-2.6 mg/dL Magnesium Blood 1.8 Performed By: #### MAG #### [place] [address] PHOSPHORUS BLOOD Collected: 04/26/2018 Status: F Source: [facility] 5:20 AM HEALTH SYSTEM REPOSITORY TYPE CODE TESTS RESULT OUT OF REFERENCE UNITS RANGE LAB PHOS(LOINC 2.5-4.9 mg/dL ) Low Phosphorus Blood 2.3 Performed By: #### PHOS #### [place] [address] MDRD GFR Collected: 04/26/2018 Status: F Source: [facility] 5:20 AM HEALTH SYSTEM REPOSITORY TYPE CODE TESTS RESULT OUT OF RANGE REFERENCE UNITS LAB GFRFN(LOINC >60mL/min/1.73m ) 2 eGFR >60 Result Comment: If the patient is , multiply the result by 1.210. Performed By: #### GFR #### [place] [address] CONSULT PROG Observed: 04/25/2018 Status: COMPLETED Source: [place] 4:47 PM CLINIC OTHER CAMPUS REPOSITORY HNO ID: [id number] Author: Eliza Lacy Service: Hospital Medicine Author Type: Physician Type: Consult Progress Note Filed: 04/25/2018 5:04 PM Note Text: DEPARTMENT OF HOSPITAL MEDICINE PROGRESS NOTE SERVICE DATE: 04/25/2018 SERVICE TIME: 4:47 PM Hospital Medicine/Primary Attending: Eliza Lacy MD NIGHT AND WEEKEND COVERAGE: After 7pm, please call cross cover pager [phone] Subjective CC/Follow up for Med management INTERVAL HPI: no acute events overnight pt reported doing ok. Sitting in chair No complaints Sitter at bedside Pt denied vomiting, abd pain, chest pain or sob. MEDICATIONS: Reviewed Current hospital medications: enoxaparin 40 mg injection (LOVENOX) 40 mg SUBCUTANEOUS q 24 HR melatonin 3 mg tab(s) 3 mg ORAL AT BEDTIME iv contrast (radiology procedure) INTRAVENOUS DIRECTED PRN valproic acid 500 mg CUP (DEPAKENE) 500 mg PEG q 8 H atorvastatin 40 mg tab(s) (LIPITOR) 40 mg PEG AT BEDTIME haloperidol lactate 5 mg oral liquid (HALDOL) 5 mg PEG q 8 H PRN albuterol 2.5 mg /3 mL (0.083 %) 2.5 mg (PROVENTIL) 2.5 mg INHALATION q 2 H PRN ipratropium-albuterol 3 mL nebulizer solution (DUONEB) 3 mL INHALATION QID thiamine 100 mg tab(s) (VITAMIN B1) 100 mg PEG DAILY budesonide 0.5 mg/2 mL 1 mg (PULMICORT) 1 mg INHALATION BID Chlorhexidine Gluconate 0.12 % 15 mL (PERIDEX) 15 mL ORAL q 12 H dextrose 5% in NaCl 0.9% iv infusion 75 mL/hr INTRAVENOUS CONTINUOUS ondansetron 4 mg tab(s) (ZOFRAN) 4 mg ORAL q 6 H PRN ondansetron (PF) 4 mg injection (ZOFRAN) 4 mg INTRAVENOUS q 6 H PRN morphine 4 mg injection 4 mg INTRAVENOUS q 4 H PRN acetaminophen 650 mg CUP (TYLENOL) 650 mg PEG q 6 H PRN oxyCODONE 5-10 mg oral liquid (ROXICODONE) 5-10 mg ORAL q 6 H PRN docusate sodium oral liquid 100 mg/10 mL (DIOCTO,COLACE) 100 mg PEG BID levETIRAcetam iv piggyback 1,000 mg in NaCl (iso-osmotic) 100 mL (KEPPRA) 1,000 mg INTRAVENOUS TID amiodarone 200 mg tab(s) (PACERONE) 200 mg PEG DAILY lisinopril 2.5 mg tab(s) 2.5 mg PEG DAILY nadolol 40 mg tab(s) (CORGARD) 40 mg PEG DAILY famotidine 20 mg oral liquid (PEPCID) 20 mg PEG BID senna leaf extract 176 mg/5 mL 528 mg 15 mL PEG BID Objective PHYSICAL EXAM: BP 134/67 Pulse 82 Temp (Src) 97.3 (Axillary) Resp 16 Ht 6' 0 (1.83m) Wt 211 lb 9.6 oz (96.0kg) SpO2 97% BMI 28.69 kg/(m2). Gen: Alert, oriented to self, mild distress, cooperative HENT: NCAT, Eyes: nonicteric sclera, Neck: supple, Trach in place CV: RRR, normal S1,S2, Resp: non-labored, + rhonchi , GI: soft, ND, NT, PEG tube in place Neuro: Limited given poor cooperation but no focal deficit MS: no LE edema, no deformity Skin: warm, no rash Psych: mild agitation DATA: Diagnostic tests reviewed for today's visit: CBC, Coags, BMP, Mg, Phos Recent Labs 04/25/18 0315 04/24/18 0243 WBC 5.70 6.84 HB 10.3* 9.7* HCT 32.3* 30.6* PLT 187 186 NA 141 141 K 3.8 4.1 CHLOR 110* 112* CO2 27 26 BUN 9 11 CREAT 0.60* 0.61* GLUC 110* 93 CA 8.1* 8.0* MG 1.8 1.8 P 3.0 2.8 CSF AND Dilantin Liver Function, Amylase, AND Lipase Cardiac Enzymes ABGs Results BLOOD CULTURE DRAW (Order [id number]) Patient Info Patient Name Sex Jeffrey Cullen ([id number]) Male 1950 Collection Information Specimen ID: [id number] Specimen Type: Other BLOOD-FAN AEROBIC AND FAN ANAEROBIC BOTTLES Collected: 04/22/2018 ?5:02 AM Resulting Agency: [facility] RIGHT FOREARM 04/25/2018 ?9:15 AM - Micro, [place] In Component Results Component Performing Lab Culture (Abnormal) (Preliminary) CCM Preliminary Gram stain. Gram variable bacilli Culture (Preliminary) CCM Reincubate Culture (Preliminary) CCM (NOTE) Positive result called to and read back by: Radha Pryor General Micro lab 04/24/18 0602 [facility] Assessment/Plan Encephalopathy - unsure of mental status at baseline - cont sitter - seen by neurology on 03/11/18 for metabolic vs infectious encephalopathy. No clear reason for encephalopathy was found and work up was negative with MRI and LP at that time - pt was discharged on haldol and valproic acid Chronic respiratory failure on O2 via trach ? Dysphagia- on tube feedings via PEG tube Hx of CAD/CABG- recommend starting asa once deemed safe by NS and primary team - cont current meds. One positive BC with Gram variable bacili - recommend ID consult Hx of a-fib - eliquis on hold, cont rate control Per chart review from last admission 03/13/18 NSTEMI with severe triple vessel CAD and EF 45%. Underwent CABGx3 on 02/09/18. Major postoperative complications include acute prolonged hypercapneic and hypoxic respiratory failure requiring eventual tracheostomy, and acute persistent metabolic toxic encephalopathy, which has posed as a barrier to liberation from the vent. Extensive workup was done to evaluate his encephalopathy from neurology, pulmonary, and ID services. MRI brain, C-spine, T-spine, EEG, and LP were all negative. Pt requires propofol for sedation for severe agitation, on valproic acid for encephalopathy, as well as Haldol PRN. Benzos, seroquel, and precedex have all been trialed without success in calming agitation or restlessness, and are now being avoided. He was treated for Klebsiella and E. Coli PNA. He developed paroxysmal atrial fibrillation which is controlled with metoprolol and Cardizem, and anticoagulated on Eliquis. Currently, he is on Ceftriaxone for Klebsiella bacteremia likely due to PICC line; antibiotic should continue through 03/25/18, which is which is 2 weeks after PICC line was removed. He is on tube feeding through G-J tube. ? ? VTE PROPHYLAXIS: per primary service ? Disposition: Extended Care Facility Plan of care discussed with: Patient SIGNATURE: Eliza Lacy MD PATIENT NAME: Jeffrey Cullen DATE: April 25, 2018 TIME: 4:47 PM PAGER/CONTACT #: THERAPY NT Observed: 04/25/2018 Status: COMPLETED Source: [place] 4:05 PM CLINIC OTHER CAMPUS REPOSITORY HNO ID: [id number] Author: Suzanne Fischer Service: Physical Therapy Author Type: Switch Operator Type: Therapy (PT/OT/Speech/Resp) Filed: 04/25/2018 4:14 PM Note Text: Attestation signed by Ursula Goyal at 04/25/2018 4:30 PM I reviewed and agree with the documentation corresponding to this therapy visit. SIGNATURE: Ursula Goyal PT DATE: April 25, 2018 TIME: 4:30 PM Physical Therapy Treatment SERVICE DATE: 04/25/2018 SERVICE TIME: 1530 to 1553 ROOM: [id number] Recommended Discharge Disposition: Subacute/SNF Justification For Post Acute Needs: Good premorbid functional status;Living the community premorbidly;Medically complex;Willing to participate;Motivated;Anticipate that patient will require daily (5x/wk) skilled therapy in a post-acute facility setting at the time of acute hospital discharge Recommended Discharge Equipment: (Defer to receiving facility) PT Recommendations to Nursing: Ambulate with device;OOB for Meals;With assist of 2 people Device: Wheeled Walker PT 6 Clicks Score: 13 Precautions/Activity Restrictions: Fall Risk;Lines/Tubes/Drains;Sitter (trach 10L High flow O2, IV, PEG) Isolation Type: None ASSESSMENT : Pt progressing towards goals . Patient Disposition at Start of Session: OOB in Chair;Sitter Present Patient Disposition at End of Session: OOB in Chair;Call Santana in Reach (sitter present ) Tolerated Full Session Physical Therapy Problem List: Decreased Activity Tolerance;Decreased Range Of Motion;Decreased Strength;Functional Mobility Impairment;Balance Impaired;Safety Deficits Patient /Caregiver Goals: Go Home Goals for Plan of Care: Transfer supine to/from sit with: Verbal Cues Only Transfer sit to/from stand with: Contact Guard Assistance Ambulate with: Contact Guard Assistance Distance: 15' intervals with appropriate safety and sequencing without LOB Device: Wheeled Walker Goal: pt to perform lower extremity strengthening ther-ex 2x15 reps Progress Toward Goals: Progressing as expected Rehab Potential: Good PLAN: Treatment Frequency (times per week): 5 (2-5) Current admission Treatment Interventions: Education;Joint Mobility;Strengthening;Functional Mobility Training;Balance Training;Neuromuscular Re-education Plan of Care developed with: Patient TREATMENT INTERVENTIONS: Therapy Diagnosis: Reduced mobility-other;Muscle Weakness (generalized) Interventions Provided: Therapeutic Exercise (93701);Therapeutic Activity (20084);Gait Training (28522) Therapeutic Exercise (69817) Treatment Minutes: 10 1 unit Skilled Intervention(s): Instruction in therapeutic exercise for ROM and strengthening . Pt performed the following exercise : AP's , glut sets, quad sets, hip adductor squeeze , LAQ's B LE's x 12 with min A. Therapeutic Activity (51111) Treatment Minutes: 5 0 units Skilled Intervention(s): Instruction in sit to and from stand technique with proper hand placement and body positioning at edge of bed/chair with verbal cues for proper technique . Gait Training (19151) Treatment Minutes: 8 1 unit Skilled Intervention(s): Instruction in use of equipment, cues for sequence and pattern with with proper technique and mod A for balance and mauvering walker . With IV and O2 in tow with patient on 15 liters with trach , nursing switch patient over to trach mask for ambulation. Total Timed Code Treatment Minutes: 23 Total Treatment Time (minutes): 23 SUBJECTIVE: Current Hospital Course: Chart reviewed and no significant medical updates relevant to therapy were noted Reason for Physical Therapy Consult : PT evaluation Relevant Past Medical History: CABG, PEG, trach Patient Report: Pt was in chair , sitter present, A x O x 3 ( self, , year but not month ) , o2 8 liters with trach . Home Environment Patient Lives With: Facility Care (Recent transfer from [facility] to SNF) Assistance Available: 24 Hour Prior Functional Level: Required Assistance Assistance Required With: Transfers;Ambulation;Self Care;Meals;Safety;Wheelchair Mobility (and all IADL provided by facility) Prior Functional Level Comments: Recent transfer from [facility] to skilled facility. Receiving assist with transfers to w/c, ADL. Beginning to progress when had fall from w/c requiring readmission to acute care. OBJECTIVE: CURRENT FUNCTIONAL STATUS: Current Functional Mobility Assist Level Additional Information Rolling Supine to Sit Sit to Supine Scooting Sit to Stand Moderate Assistance Stand to Sit Moderate Assistance Bed to Chair Toilet/Commode Gait Moderate Assistance Gait Device: Wheeled Walker Gait Distance (feet): 12 x 2 Stairs Curb Step Car Transfer General Gait Deviations: Gypsy decreased;Lateral sway increased;Non-functional gait speed;Step length decreased Balance: Static Sitting;Static Standing;Dynamic Standing Static Sitting Balance: Stand By Assistance Static Standing Balance: Moderate Assistance Dynamic Standing Balance: Moderate Assistance Please see discipline specific clinical documentation flowsheet for complete details for this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 Subacute/SNF Justification For Post Acute Needs: Anticipate that patient will require daily (5x/wk) skilled therapy in a post-acute facility setting at the time of acute hospital discharge;May not tolerate higher intensity programing;Willing to participate;Medically complex OT Recommendations to Nursing: Bedside Commode for Toileting;OOB for meals;ADL?s in chair;With assist of 2 people (to assist with medical equipment) OT 6 Clicks Score: 11 Precautions/Activity Restrictions: Fall Risk;Lines/Tubes/Drains;Sitter (trach 10L High flow O2, IV, PEG) Isolation Type: None ASSESSMENT: OT Evaluation Moderate Complexity: Occupational Profile - Extended review of patient's medical record completed including patient's physical, cognitive, and psycho-social history (please see current hospital course of evaluation). Occupational Performance - Pt presents with deficits in feeding, grooming, UE bathing/dressing, LE bathing/dressing, functional transfers, functional mobility, decreased safety awareness, decreased insight into deficits Complexity in Clinical Decision Making - The extent of clinical reasoning was moderate, several treatment options present for the patient, need for modification during the evaluation was minimal due to respiratory status/medical lines/equuipment; comorbidities affecting occupational performance: CABG, PEG Patient Disposition at Start of Session: Supine in Bed Patient Disposition at End of Session: OOB in Chair Tolerated Full Session Occupational Therapy Problem List: Education Deficit;Safety Deficits;Impaired Self Care;Decreased Activity Tolerance;Decreased Range Of Motion;Decreased Strength;Functional Mobility Impairment;Impaired Fine Motor Skills;Balance Impaired;PROM/Positioning Patient /Caregiver Goals: Go To Rehab Goals for Plan of Care: Grooming with: Set Up Upper Body Bathing with: Set Up Upper Body Dressing with: Set Up Lower Body Bathing with: Minimal Assistance Lower Body Dressing with: Minimal Assistance Toilet Hygiene with: Contact Guard Assistance Toilet Transfer with: Contact Guard Assistance Tolerate (minutes of functional activity): 30 Functional Activity with: Contact Guard Assistance Additional Goal 1: Patient will participate in BUE AROM/strengthening exercises to increase AROM/strength to enhance ADL/ADL mobility with wheeled walker. Demonstrate Competence With Education with: Verbal Cues Only (for ADL/mobility safety) Rehab Potential: Good PLAN: Treatment Frequency (times per week): 3 (1-3 times per week) Current admission Treatment Interventions: Education;Self Care / Home Management;Strengthening;Joint Mobility;Energy Conservation Training;Functional Mobility Training Plan of Care developed with: Patient TREATMENT INTERVENTIONS: Therapy Diagnosis: Reduced mobility-other;Decreased activities of daily living (ADL);Muscle Weakness (generalized) Interventions Provided: Evaluation $ Evaluation-Moderate (81373) Billed Units: 1 unit Total Treatment Time (minutes): 15 FUNCTIONAL G CODE: OT 6 Clicks Score: 11 (04/24/18 1000) Self Care Current Status (G8987): CL (04/24/18 1000) Self Care Goal Status (G8988): CK (04/24/18 1000) Based on clinical assessment and the score on the 6 Clicks Functional Assessment Tool, the G code and corresponding severity modifiers are documented above. SUBJECTIVE: Current Hospital Course: Chart reviewed; HPI/CHIEF COMPLAINT: OTHER MECHANISMS: Fall BRIEF DESCRIPTION OF INJURIES: SDH, head laceration, left first rib fx Subjective This is a 67 year old white male. Presented to [facility] from his group home after a fall from his wheelchair, struck his face and had a laceration to the left forehead that was repaired at [facility]. CT head showed SDH, so he was transferred to [facility]. Patient was recently discharged to his group home from [facility]. S/p Trach/PEG. Recent h/o CABG in 02/12, complicated with resp failure, encephalopathy, and E. Coli/Klebsiella PNA. Afib on Eliquis. Given Feba at [facility]. Baseline encephalopathy, oriented to person and place, but not time. PAST MEDICAL HISTORY Diagnosis Date - Afib (HCC) - CAD (coronary artery disease) - Chronic respiratory failure (HCC) PAST SURGICAL HISTORY Procedure Laterality Date - CABG (3) VEIN GRAFTS AND ARTERIAL GRAFT(S) 01/2018 - ORTHOPEDICS SURGERY HX - PEG INSERTION_*FL - REPAIR ING HERNIA,5+Y/O,REDUCIBL 1990 Hernia repair, inguinal,left - TRACHEOSTOMY, <2 Y/O Reason for Occupational Therapy Consult: progressive mobility Relevant Past Medical History: CABG, recent prolonged hospitalization with LTAC to skilled stay Patient Report: Patient pleasant, cooperative. Motivated and agreeable to therapy. c/o mild pain in stomach, but tolerable Home Environment Patient Lives With: Facility Care (Recent transfer from [facility] to SNF) Assistance Available: 24 Hour Prior Functional Level: Required Assistance Assistance Required With: Transfers;Ambulation;Self Care;Meals;Safety;Wheelchair Mobility (and all IADL provided by facility) Prior Functional Level Comments: Recent transfer from [facility] to skilled facility. Receiving assist with transfers to w/c, ADL. Beginning to progress when had fall from w/c requiring readmission to acute care. OBJECTIVE: Oriented x 2. Mild decrease time. Orientation Deficits: Not oriented to Time (2017; not month or date) Responsiveness: Alert Follows Commands: 1-step Commands;Cueing Needed Cueing to Follow Commands: Minimum Memory Deficits: Short Term Executive Function Deficits: Sequencing;Insight to Deficits;Problem Solving;Safety Awareness Sequencing Deficit: Minimal impairment Safety Awareness Deficit: Minimal impairment Insight to Deficits: Minimal impairment Problem Solving Deficit: Minimal impairment CURRENT FUNCTIONAL STATUS: Current Activities of Daily Living Assist Level Feeding Other: See Comment (PEG/NPO) Grooming Moderate Assistance Bathing Upper Body Moderate Assistance Bathing Lower Body Maximal Assistance Dressing Upper Body Moderate Assistance Dressing Lower Body Maximal Assistance Toileting Maximal Assistance Functional Mobility Assist Level Rolling Supine to Sit Minimal Assistance Sit to Supine Scooting Minimal Assistance Sit to Stand Moderate Assistance Stand to Sit Minimal Assistance Bed to Chair Minimal Assistance (x2) Stand Pivot Wheeled Walker Toilet/Commode Minimal Assistance (x2;simulated BSC transfer/bedside chair) Functional Mobility Minimal Assistance (x2 with wheeled walker forward/back/side steps by bed) Wheeled Walker Range Of Motion: Within Functional Limits Except Location ROM Not WFL: Other: See Comment Other ROM: BUE AROM grossly WFL distally; Shoulder flexion limited 0-75 degrees Strength: Within Functional Limits Except Location Strength Not WFL: Upper Extremity Left Upper Extremity Strength: 2+/5 to 3-/5 proximally;4-/5 to 4/5 distally Right Upper Extremity Strength: 2+/5 to 3-/5 proximally;4- /5 to 4/5 distally Tone Abnormalities: Other: See Comment (slight stiffness BUE ) Coordination Deficits: Finger to nose;Rapid alternating movements;In hand manipulation (gross/fine motor mildly impaired) Finger to Nose Impairment: Bilateral Rapid Alternating Movements Impairment: Bilateral Hand Manipulation Impairment: Bilateral Balance: Static Sitting;Dynamic Sitting;Static Standing;Dynamic Standing Static Sitting Balance: Stand By Assistance Dynamic Sitting Balance: Contact Guard Assistance Static Standing Balance: Minimal Assistance (stands/steps on outside of R foot; no shoe; old ankle fx) Dynamic Standing Balance: Moderate Assistance Activity Tolerance: Sitting Activity;Standing Activity Sitting Activity: up in bedside chair Sitting Activity Tolerance (in minutes): 15 Standing Activity: Simulated LB self care tasks in stance with wheeled walker Standing Activity Tolerance (in minutes): 5 Please see discipline specific clinical documentation flowsheet for complete details for this therapy evaluation/treatment. SIGNATURE: HEATHER Driscoll/Fara PATIENT NAME: Jeffrey Cullen DATE: April 24, 2018 TIME: 10:38 AM PAGER: [phone] THERAPY NT Observed: 04/24/2018 Status: COMPLETED Source: [place] 10:33 AM CLINIC OTHER CAMPUS REPOSITORY O ID: [id number] Author: Urusla MoodyPtKristin Goyal Service: Physical Therapy Author Type: Physical Therapist Type: Therapy (PT/OT/Speech/Resp) Filed: 04/24/2018 10:36 AM Note Text: Physical Therapy Evaluation SERVICE DATE: 04/24/2018 SERVICE TIME: 7889 to 7707 ROOM: [id number] Recommended Discharge Disposition: Subacute/SNF Justification For Post Acute Needs: Good premorbid functional status;Living the community premorbidly;Medically complex;Willing to participate;Motivated;Anticipate that patient will require daily (5x/wk) skilled therapy in a post-acute facility setting at the time of acute hospital discharge Recommended Discharge Equipment: (Defer to receiving facility) PT Recommendations to Nursing: Ambulate with device;OOB for Meals;With assist of 2 people Device: Wheeled Walker PT 6 Clicks Score: 13 Precautions/Activity Restrictions: Fall Risk;Lines/Tubes/Drains;Sitter (trach 10L High flow O2, IV, PEG) Isolation Type: None ASSESSMENT : Patient presents with personal factors, comorbidities and results of the PT examination that require moderate complexity decision making. The patient requires skilled physical therapy to address multiple PT problems in order for the patient to return to a baseline functional level. Patient responds very well to verbal cueing, slightly impulsive. Patient requires minimal to moderate assist to perform all functional mobility. Would benefit from continued skilled physical therapy to improve safety and independence with functional mobility. Patient Disposition at Start of Session: Supine in Bed;Sitter Present Patient Disposition at End of Session: OOB in Chair (sitter present) Tolerated Full Session Physical Therapy Problem List: Decreased Activity Tolerance;Decreased Range Of Motion;Decreased Strength;Functional Mobility Impairment;Balance Impaired;Safety Deficits Patient /Caregiver Goals: Go Home Goals for Plan of Care: Transfer supine to/from sit with: Verbal Cues Only Transfer sit to/from stand with: Contact Guard Assistance Ambulate with: Contact Guard Assistance Distance: 15' intervals with appropriate safety and sequencing without LOB Device: Wheeled Walker Goal: pt to perform lower extremity strengthening ther-ex 2x15 reps Rehab Potential: Good PLAN: Treatment Frequency (times per week): 5 (2-5) Current admission Treatment Interventions: Education;Joint Mobility;Strengthening;Functional Mobility Training;Balance Training;Neuromuscular Re-education Plan of Care developed with: Patient TREATMENT INTERVENTIONS: Therapy Diagnosis: Reduced mobility-other;Muscle Weakness (generalized) Interventions Provided: Evaluation $ Evaluation-Moderate (25557) Billed Units: 1 unit Total Treatment Time (minutes): 15 FUNCTIONAL G CODE: PT 6 Clicks Score: 13 (04/24/18949) Mobility: Walking and Moving Around Current Status (G8978): CL (04/24/18949) Mobility: Walking and Moving Around Goal Status (G8979): CK (04/24/18949) Based on clinical assessment and the score on the 6 Clicks Functional Assessment Tool, the G code and corresponding severity modifiers are documented above. SUBJECTIVE: Current Hospital Course: Chart reviewed; 67 year old male with PMH of CABG in January 2018 complicated with respiratory failure, s/p trach/PEG was brought from SNF after the fall from wheelchair. Patient with SDH, forehead laceration and left 1st rib fracture. PAST MEDICAL HISTORY Diagnosis Date - Afib (HCC) - CAD (coronary artery disease) - Chronic respiratory failure (HCC) PAST SURGICAL HISTORY Procedure Laterality Date - CABG (3) VEIN GRAFTS AND ARTERIAL GRAFT(S) 01/2018 - ORTHOPEDICS SURGERY HX - PEG INSERTION_*FL - REPAIR ING HERNIA,5+Y/O,REDUCIBL 1990 Hernia repair, inguinal,left - TRACHEOSTOMY, <2 Y/O Reason for Physical Therapy Consult : PT evaluation Relevant Past Medical History: CABG, PEG, trach Patient Report: Received supine in bed upon arrival. Patient eagerly wanting to get out of bed. Reports minimal abdominal pain. Patient agreeable to PT evaluation. Home Environment Patient Lives With: Facility Care (Recent transfer from [facility] to SNF) Assistance Available: 24 Hour Prior Functional Level: Required Assistance Assistance Required With: Transfers;Ambulation;Self Care;Meals;Safety;Wheelchair Mobility (and all IADL provided by facility) Prior Functional Level Comments: Recent transfer from [facility] to skilled facility. Receiving assist with transfers to w/c, ADL. Beginning to progress when had fall from w/c requiring readmission to acute care. OBJECTIVE: CURRENT FUNCTIONAL STATUS: Current Functional Mobility Assist Level Additional Information Rolling Supine to Sit Minimal Assistance (HOB elevated ) Sit to Supine Minimal Assistance Scooting Sit to Stand Moderate Assistance Stand to Sit Moderate Assistance Bed to Chair Toilet/Commode Gait Minimal Assistance (x2) Gait Device: Wheeled Walker Gait Distance (feet): 5'x3 Stairs Curb Step Car Transfer General Gait Deviations: Gypsy decreased;Arm swing decreased;Step length decreased;Narrow Base of Support;Difficulty changing direction/turning;Non-functional gait speed Range Of Motion: Within Functional Limits Except Location ROM Not WFL: Knee Left Knee ROM: decreased end range extension Right Knee ROM: decreased end range extension Strength: Within Functional Limits Except Location Strength Not WFL: Lower Extremity Left Lower Extremity Strength: 4/5 Right Lower Extremity Strength: 4/5 Balance: Static Sitting;Static Standing;Dynamic Standing Static Sitting Balance: Stand By Assistance Static Standing Balance: Moderate Assistance Dynamic Standing Balance: Moderate Assistance Please see discipline specific clinical documentation flowsheet for complete details for this therapy evaluation/treatment. SIGNATURE: Ursula Goyal PT PATIENT NAME: Jeffrey Cullen DATE: April 24, 2018 TIME: 10:33 AM PAGER/CONTACT #: [phone] CONSULT Observed: 04/24/2018 Status: COMPLETED Source: [place] 8:49 AM CLINIC OTHER CAMPUS REPOSITORY O ID: [id number] Author: Agnieszka Hawkins Service: Hospital Medicine Author Type: Physician Type: Consults Filed: 04/24/2018 9:14 AM Note Text: DEPARTMENT OF HOSPITAL MEDICINE INITIAL CONSULT SERVICE DATE: 04/24/2018 SERVICE TIME: 8:49 AM Primary Care Physician: Julio César Lara MD NIGHT AND WEEKEND COVERAGE: After 7pm, please call cross cover pager #[phone] REASON FOR CONSULT: medical management REQUESTING PHYSICIAN: Dr. Staley Subjective CHIEF COMPLAINT: Medical management. HPI: This is a 67 year old male with PMH of CABG in January 2018 complicated with respiratory failure, s/p trach/PEG was brought from SNF after the fall from wheelchair. Patient was found to have a SDH, evaluated by neurosurgery. At present time he denies any headache, visual changes, nausea, vomiting, chest pain or abdominal pain. PAST MEDICAL HISTORY Diagnosis Date - Afib (HCC) - CAD (coronary artery disease) - Chronic respiratory failure (HCC) PAST SURGICAL HISTORY Procedure Laterality Date - CABG (3) VEIN GRAFTS AND ARTERIAL GRAFT(S) 01/2018 - ORTHOPEDICS SURGERY HX - PEG INSERTION_*FL - REPAIR ING HERNIA,5+Y/O,REDUCIBL 1990 Hernia repair, inguinal,left - TRACHEOSTOMY, <2 Y/O FAMILY HISTORY Problem Relation Age of Onset - Alcohol/Drug Father - Colon Cancer Mother - Diabetes Mother Social History Substance Use Topics - Smoking status: Current Every Day Smoker Packs/day: 2.00 Years: 25.00 Types: Cigarettes - Smokeless tobacco: Not on file - Alcohol use No MEDICATIONS: Reviewed Prescriptions Prior to Admission: amiodarone (PACERONE) 100 mg tablet Take 200 mg by mouth once daily. Disp: Rfl: famotidine (PEPCID) 10 mg tablet Take 20 mg by mouth twice daily. Disp: Rfl: lisinopril 2.5 mg tablet Take 2.5 mg by mouth once daily. Disp: Rfl: nadolol (CORGARD) 20 mg tablet Take 40 mg by mouth once daily. Disp: Rfl: valproic acid (DEPAKENE) 250 mg/5 mL (5 mL) solution Take 10 mL by mouth every 8 hours. Disp: Rfl: atorvastatin (LIPITOR) 40 mg tablet Take 1 tablet by mouth daily at bedtime. Disp: Rfl: albuterol (PROVENTIL) 2.5 mg /3 mL (0.083 %) nebulizer solution Use 3 mL via nebulizer every 2 hours as needed for Wheezing/Shortness of Breath. Disp: Rfl: apixaban (ELIQUIS) 5 mg tab(s) Take 1 tablet by mouth twice daily. Disp: Rfl: 04/16/2018 budesonide (PULMICORT) 0.5 mg/2 mL nebulizer solution Use 4 mL via nebulizer twice daily. Disp: Rfl: senna-docusate (SENNA-S) 8.6-50 mg per tablet Take 1 tablet by mouth twice daily. Disp: Rfl: thiamine (VITAMIN B1) 100 mg tablet Take 1 tablet by mouth once daily. Disp: Rfl: ondansetron, PF, (ZOFRAN) 4 mg/2 mL soln Inject 4 mg intravenously every 6 hours as needed. Disp: Rfl: haloperidol lactate (HALDOL) 2 mg/mL solution Take 2.5 mL by mouth every 6 hours as needed. Disp: Rfl: ipratropium-albuterol (DUONEB) 0.5 mg-3 mg(2.5 mg base)/3 mL nebu Inhale 3 mL as instructed four times daily. Disp: Rfl: metoprolol tartrate, short acting, (LOPRESSOR) 100 mg tablet Take 1 tablet by mouth every 8 hours. Disp: Rfl: diltiazem (CARDIZEM) 60 mg tablet 1 tablet by NASOGASTRIC route every 6 hours. Disp: Rfl: propofol infusion (DIPRIVAN) 10 mg/mL injection Inject 1.091- 5.455 mg/min intravenously continuous. Disp: Rfl: metoclopramide HCl (REGLAN) 5 mg/mL injection Inject 10 mg intravenously every 6 hours as needed. Disp: Rfl: polyethylene glycol 3350 (MIRALAX, GLYCOLAX) 17 gram packet Take 1 Packet by mouth once daily. Disp: Rfl: bisacodyl (DULCOLAX) 10 mg supp 1 Suppository by RECTAL route once daily as needed (If now bowel movement by POD#5). Disp: Rfl: melatonin 3 mg tablet Take 2 tablets by mouth daily at bedtime. Disp: Rfl: aspirin 81 mg chewable tablet Take 1 tablet by mouth once daily. Disp: Rfl: 04/16/2018 0.9% NaCl Inject 10 mL intravenously every 12 hours. Disp: Rfl: 0.9% NaCl Inject 20 mL intravenously as needed (FLUSH WITH 20 ML OF 0.9% SODIUM CHLORIDE AFTER EACH BLOOD DRAW.). Disp: Rfl: Current hospital medications: iv contrast (radiology procedure) INTRAVENOUS DIRECTED PRN valproic acid 500 mg CUP (DEPAKENE) 500 mg PEG q 8 H atorvastatin 40 mg tab(s) (LIPITOR) 40 mg PEG AT BEDTIME haloperidol lactate 5 mg oral liquid (HALDOL) 5 mg PEG q 8 H PRN albuterol 2.5 mg /3 mL (0.083 %) 2.5 mg (PROVENTIL) 2.5 mg INHALATION q 2 H PRN ipratropium-albuterol 3 mL nebulizer solution (DUONEB) 3 mL INHALATION QID thiamine 100 mg tab(s) (VITAMIN B1) 100 mg PEG DAILY budesonide 0.5 mg/2 mL 1 mg (PULMICORT) 1 mg INHALATION BID Chlorhexidine Gluconate 0.12 % 15 mL (PERIDEX) 15 mL ORAL q 12 H dextrose 5% in NaCl 0.9% iv infusion 75 mL/hr INTRAVENOUS CONTINUOUS ondansetron 4 mg tab(s) (ZOFRAN) 4 mg ORAL q 6 H PRN ondansetron (PF) 4 mg injection (ZOFRAN) 4 mg INTRAVENOUS q 6 H PRN morphine 4 mg injection 4 mg INTRAVENOUS q 4 H PRN acetaminophen 650 mg CUP (TYLENOL) 650 mg PEG q 6 H PRN oxyCODONE 5-10 mg oral liquid (ROXICODONE) 5-10 mg ORAL q 6 H PRN docusate sodium oral liquid 100 mg/10 mL (DIOCTO,COLACE) 100 mg PEG BID levETIRAcetam iv piggyback 1,000 mg in NaCl (iso-osmotic) 100 mL (KEPPRA) 1,000 mg INTRAVENOUS TID amiodarone 200 mg tab(s) (PACERONE) 200 mg PEG DAILY lisinopril 2.5 mg tab(s) 2.5 mg PEG DAILY nadolol 40 mg tab(s) (CORGARD) 40 mg PEG DAILY famotidine 20 mg oral liquid (PEPCID) 20 mg PEG BID senna leaf extract 176 mg/5 mL 528 mg 15 mL PEG BID . ALLERGIES Allergen Reactions - Bee Sting Unknown REVIEW OF SYSTEMS: As per HPI, otherwise negative. All ten systems reviewed. Negative for headache, blurry vision, nausea or pain. Objective PHYSICAL EXAM: BP 131/67 Pulse 56 Temp (Src) 97.9 (Tympanic) Resp 16 Ht 6' 0 (1.83m) Wt 211 lb 9.6 oz (96.0kg) SpO2 96% BMI 28.69 kg/(m2). Physical Exam Performed: GENERAL: Alert, no distress, cooperative, AAOx2, to place and person. HEAD/SINUSES: No significant findings. NECK: No jugulovenous distention, trach in place. LUNGS: Lungs clear to auscultation, no wheezes or rhonchi CARDIAC: Normal S1 and S2; no rubs, murmurs, or gallops ABDOMEN: Abdomen soft, non-tender, BS normal, No masses or organomegaly EXTREMITIES: Extremities normal, no deformities, edema, clubbing or skin discoloration. Lines, Drains, and Airways Line Peripheral 04/22/18 0855 Admission to [facility] Right Antecubital 16 Gauge 1 day Peripheral 04/22/18 0905 Admission to [facility] Right Forearm 18 Gauge 1 day Drain GI Feed/Drain 04/23/18 1851 Admission to Hospital Gastrostomy-Jejunostomy (G-J) Abdomen less than 1 day Airway Airway Tracheostomy -- days DATA: Diagnostic tests reviewed for today's visit: Most recent labs and imaging results. Impression/Recommendations Active Problems: Encephalopathy, not clear if its a new event. -agree with sitter. SDH - stable -neurosurgery follows -neuro checks Chronic respiratory failure -trach Dysphagia -on tube feedings -video swallow pending Hx of CAD/CABG -continue statins VTE PROPHYLAXIS: per primary service Disposition: Extended Care Facility Plan of care discussed with: Patient SIGNATURE: Agnieszka Hawkins MD PATIENT NAME: Jeffrey Cullen DATE: April 24, 2018 TIME: 8:49 AM PAGER/CONTACT #: THERAPY NT Observed: 04/24/2018 Status: COMPLETED Source: [place] 7:12 AM CLINIC OTHER CAMPUS REPOSITORY HNO ID: [id number] Author: Gregg (Ccc-Field Mechanical Meter Tester) PEARL Rand/HYDRATION PLANT OPERATOR Service: Speech/Swallow Author Type: Speech Language Pathologist Type: Therapy (PT/OT/Speech/Resp) Filed: 04/24/2018 7:12 AM Note Text: SPEECH THERAPY MISSED VISIT SERVICE DATE: 04/24/2018 SERVICE TIME: 0710 to 0710 ROOM: [place] [address] Attempted MBSS Evaluation. Patient not seen due to Other: See Comment. Aware of Modified Barium Swallow Study order. Will complete as scheduled. SIGNATURE: Gregg Rand CCC-HYDRATION PLANT OPERATOR PATIENT NAME: Jeffrey Cullen DATE: April 24, 2018 TIME: 7:12 AM PAGER/CONTACT #: [id number] PROGRESS Observed: 04/24/2018 Status: COMPLETED Source: [place] 6:24 AM CLINIC OTHER CAMPUS REPOSITORY HNO ID: [id number] Author: Lynne Christy Service: General Surgery Author Type: Physician Type: Progress Notes Filed: 04/24/2018 1:08 PM Note Text: Trauma Service Pager: For questions or concerns Mon-Fri 6a-5p please page [phone]. After 5pm and on Weekends and Holidays, please page [phone] if in ICU or [phone] if on RNF. Trauma Surgery Progress Note SERVICE DATE: 04/24/2018 SUBJECTIVE: Restless/confused o/n. Asking to leave. Sitter present. Per nsg, patient only slept one hour o/n. Does not appear agitated. Tolerating diet DIET TUBE FEED - CONTIN (NO TRAY) OBJECTIVE: Vitals: Temp (24hrs), Av.7 ?C (98 ?F), Min:36.6 ?C (97.9 ?F), Max:36.8 ?C (98.2 ?F) BP 131/67 Pulse (!) 56 Temp 36.6 ?C (97.9 ?F) (Tympanic) Resp 18 Ht 182.9 cm (6') Wt 96 kg (211 lb 9.6 oz) SpO2 100% BMI 28.70 kg/m? O2 Therapy: Trach Collar IANDO: Date 04/23/18699 - 04/24/18 0659 04/24/18 07 - 04/25/18 0659 Shift 2865-9215 9312-7448 8292-7945 24 Hour Total 8789-0764 8311-6467 9970-8103 24 Hour Total I N T A K E PO 75 190 265 Tube Feed Intake (GI Feed/Drain 04/23/181850 Admission to Hospital Gastrostomy-Jejunostomy (G-J) Abdomen) 75 190 265 IV 8367 886 5005 D5 NS 1099 874 0572 Levetiracetam IV 100 100 Irrigants 90 30 120 Irrigant/Flush Amount In (GI Feed/Drain 04/23/181850 Admission to Hospital Gastrostomy-Jejunostomy (G-J) Abdomen) 90 30 120 Shift Total 2068 987 3055 O U T P U T Urine 250 475 151 876 Void (ml) 250 475 150 875 Urine Not Saved 1 1 Tubes 0 0 Output (GI Feed/Drain 04/23/181850 Admission to Hospital Gastrostomy-Jejunostomy (G-J) Abdomen) 0 0 # of BMs Number of BMs 1 x 1 x Shift Total 250 475 151 876 Weight (kg) 104.3 96 96 96 96 96 96 96 MEDICATIONS Current Facility-Administered Medications: iv contrast (radiology procedure) INTRAVENOUS DIRECTED PRN valproic acid 500 mg CUP (DEPAKENE) 500 mg PEG q 8 H atorvastatin 40 mg tab(s) (LIPITOR) 40 mg PEG AT BEDTIME haloperidol lactate 5 mg oral liquid (HALDOL) 5 mg PEG q 8 H PRN albuterol 2.5 mg /3 mL (0.083 %) 2.5 mg (PROVENTIL) 2.5 mg INHALATION q 2 H PRN ipratropium-albuterol 3 mL nebulizer solution (DUONEB) 3 mL INHALATION QID thiamine 100 mg tab(s) (VITAMIN B1) 100 mg PEG DAILY budesonide 0.5 mg/2 mL 1 mg (PULMICORT) 1 mg INHALATION BID Chlorhexidine Gluconate 0.12 % 15 mL (PERIDEX) 15 mL ORAL q 12 H dextrose 5% in NaCl 0.9% iv infusion 75 mL/hr INTRAVENOUS CONTINUOUS ondansetron 4 mg tab(s) (ZOFRAN) 4 mg ORAL q 6 H PRN Or ondansetron (PF) 4 mg injection (ZOFRAN) 4 mg INTRAVENOUS q 6 H PRN morphine 4 mg injection 4 mg INTRAVENOUS q 4 H PRN acetaminophen 650 mg CUP (TYLENOL) 650 mg PEG q 6 H PRN oxyCODONE 5-10 mg oral liquid (ROXICODONE) 5-10 mg ORAL q 6 H PRN docusate sodium oral liquid 100 mg/10 mL (DIOCTO,COLACE) 100 mg PEG BID levETIRAcetam iv piggyback 1,000 mg in NaCl (iso-osmotic) 100 mL (KEPPRA) 1,000 mg INTRAVENOUS TID amiodarone 200 mg tab(s) (PACERONE) 200 mg PEG DAILY lisinopril 2.5 mg tab(s) 2.5 mg PEG DAILY nadolol 40 mg tab(s) (CORGARD) 40 mg PEG DAILY famotidine 20 mg oral liquid (PEPCID) 20 mg PEG BID senna leaf extract 176 mg/5 mL 528 mg 15 mL PEG BID Labs: Recent Labs 04/24/18 0243 04/22/18 0855 04/22/18 0522 04/22/18 0502 NA 141 -- -- 137 K 4.1 -- -- 4.2 CHLOR 112* -- -- 101 CO2 26 -- -- 24 BUN 11 -- -- 28* CREAT 0.61* -- -- 0.84 GLUC 93 -- -- 93 ANION 7* -- -- 12 CA 8.0* -- -- 9.0 MG 1.8 -- -- -- P 2.8 -- -- -- ALB -- -- -- 3.0* AST -- -- -- 22 ALT -- -- -- 28 ALKPHOS -- -- -- 63 TBILI -- -- -- 0.6 WBC 6.84 10.23* -- 11.02* HB 9.7* 11.1* -- 11.9* HCT 30.6* 34.7* -- 37.5* PLT 186 224 -- 257 LACT -- -- 0.8 -- PH -- -- 7.466* -- PCO2 -- -- 31.5* -- PO2 -- -- 57.4* -- BE -- -- -0.2 -- HCO3 -- -- 22.5 -- Exam: GENERAL: No distress, Alert NEURO: Alert, CN II-XII grossly intact HEENT: normocephalic, trach LUNGS: Unlabored breathing CARDIAC: Regular rate and rhythm as above ABDOMEN: Soft, non-tender, non-distended EXTREMITIES: MATHEW, No deformities, No edema SKIN: Skin color, texture, turgor normal, No rashes or lesions ASSESSMENT AND PLAN: Active Hospital Problems Diagnosis Date Noted - SDH (subdural hematoma) (HCC) 04/22/2018 - Fall from wheelchair 04/22/2018 - CAD (coronary artery disease) - Chronic respiratory failure (HCC) - Weakness 03/09/2018 - Encephalopathy 03/04/2018 Overview Note: - Malnutrition of moderate degree (HCC) 02/20/2018 67 year old male with h/o trach/PEG s/p fall from wheelchair with SDH, forehead laceration and 1st rib fracture -reorient, will start melatonin, sitter - Pain control - SCDs for DVT ppx - neurochecks - Keppra - HOB to 30 - SBP <160 -will d/w attending starting chemoprophylaxis today -dispo planning SIGNATURE: Inna Guillen MD PATIENT NAME: Jeffrey Cullen DATE: April 24, 2018 TIME: 6:24 AM Pager: Attending Note Ok for Lovenox prophylaxis Awaiting discharge planning I evaluated the patient and personally participated in the hernandez components. I agree with the resident's findings and plan as documented and have discussed the case and management of the patient's care with the resident. Signature: Lynne Christy MD Date: 04/24/2018 Time: 1:08 PM IONIZED CALCIUM Collected: 04/24/2018 Status: F Source: [facility] 2:43 AM HEALTH SYSTEM REPOSITORY TYPE CODE TESTS RESULT OUT OF REFERENCE UNITS RANGE LAB CAION(LOINC 4.43-4.93 mg/dL ) Ionized 4.75 Calcium LAB PHCAI(LOINC 7.320-7.420 ) pH 7.387 LAB CAPH(LOINC) 4.36-4.73 mg/dL Ionized 4.72 Ca,PH7.4 Performed By: #### IONCA #### [place] [address] HEMOGRAM/DIFF Collected: 04/24/2018 Status: F Source: [facility] 2:43 AM HEALTH SYSTEM REPOSITORY TYPE CODE TESTS RESULT OUT OF REFERENCE UNITS RANGE LAB WBC(LOINC) 4.23-9.07 thou/cmm WBC 6.84 LAB RBC(LOINC) 4.63-6.08 mil/cmm Low RBC 3.08 LAB HGB(LOINC) 13.7-17.5 g/dL Low Hgb 9.7 LAB HCT(LOINC) 40.1-51.0 % Low Hct 30.6 LAB MCV(LOINC) 83.2-95.6 fl MCV High 99.4 LAB MCH(LOINC) 25.7-32.2 pg MCH 31.5 LAB MCHC(LOINC 32.3-36.5 % ) Low MCHC 31.7 LAB RDW(LOINC) 11.6-14.4 % RDW High 15.0 LAB RDWSD(LOIN 36.1-45.8 fl C) RDW SD High 55.1 LAB PLT(LOINC) 141-365 thou/cmm Platelet 186 LAB MPV(LOINC) 8.7-12.0 fl MPV 10.5 LAB SEG(LOINC) % Seg Neutrophil 60.5 LAB IGRE(LOINC % ) Immature Grans 0.10 LAB LYMPH(LOIN % C) Lymphocyte 23.7 LAB MNO(LOINC) % Monocyte 8.8 LAB EOSIN(LOIN % C) Eosinophil 6.3 LAB BASO(LOINC % ) Basophil 0.6 LAB SEGN(LOINC 1.78-5.38 thou/cmm ) Abs. Neut (ANC) 4.14 LAB IGAB(LOINC 0.00-0.05 thou/cmm ) Abs Immature Grans 0.01 LAB LYMN(LOINC 0.84-2.85 thou/cmm ) Abs. Lymph 1.62 LAB MONON(LOIN 0.30-0.82 thou/cmm C) Abs. Slope 0.60 LAB EOSN(LOINC 0.04-0.54 thou/cmm ) Abs. Eosin 0.43 LAB BASON(LOIN 0.01-0.08 thou/cmm C) Abs. Baso 0.04 Performed By: #### CBCD1 #### [address] [address] BASIC PANEL Collected: 04/24/2018 Status: F Source: [facility] 2:43 AM HEALTH SYSTEM REPOSITORY TYPE CODE TESTS RESULT OUT OF REFERENCE UNITS RANGE LAB NA(LOINC) 136-145 mEq/L Sodium Blood 141 LAB K(LOINC) 3.5-5.1 mEq/L Potassium Blood 4.1 LAB CL(LOINC) 98-107 mEq/L Chloride High Blood 112 LAB CO2(LOINC) 21-32 mEq/L CO2 Blood 26 LAB GLU(LOINC) 70-99 mg/dL Glucose Blood 93 LAB BUN(LOINC) 7-18 mg/dL BUN Blood 11 LAB CREA(LOINC 0.67-1.17 mg/dL ) Low Creatinine Blood 0.61 LAB CA(LOINC) 8.5-10.1 mg/dL Low Calcium Blood 8.0 LAB ANGAP(LOIN 8-16 C) Low Anion Gap 7 Performed By: #### P8 #### [place] [address] MAGNESIUM BLOOD Collected: 04/24/2018 Status: F Source: [place] [address]:[address] [place] [address] SYSTEM REPOSITORY TYPE CODE TESTS RESULT OUT OF REFERENCE UNITS RANGE LAB MAG(LOINC) 1.6-2.6 mg/dL Magnesium Blood 1.8 Performed By: #### MAG #### [place] [address] PHOSPHORUS BLOOD Collected: 04/24/2018 Status: F Source: [facility] 2:[facility] REPOSITORY TYPE CODE TESTS RESULT OUT OF REFERENCE UNITS RANGE LAB PHOS(LOINC 2.5-4.9 mg/dL ) Phosphorus Blood 2.8 Performed By: #### PHOS #### [place] [address] MDRD GFR Collected: 04/24/2018 Status: F Source: [facility] 2:[address] [place] [address] SYSTEM REPOSITORY TYPE CODE TESTS RESULT OUT OF RANGE REFERENCE UNITS LAB GFRFN(LOINC >60mL/min/1.73m ) 2 eGFR >60 Result Comment: If the patient is , multiply the result by 1.210. Performed By: #### GFR #### [place] [address] NURSING PROG Observed: 04/24/2018 Status: COMPLETED Source: [place] 12:37 AM CLINIC OTHER CAMPUS REPOSITORY HNO ID: [id number] Author: Lisa Johnson) RAINA Wesley Service: Nursing Author Type: Registered Nurse Type: Nursing Progress Note Filed: 04/24/2018 12:38 AM Note Text: Nursing Progress Note Patient Name: Jeffrey Cullen Patient Location: [address]/[id number]-* Spoke with pt's sister/CALLIE Palma regarding bedside caregiver placement. She said she had gotten a call like this last night too. Said she is okay with him having a sitter. Will continue to monitor pt. This note was completed by: Lisa Wesley RN NURSING PROG Observed: 04/23/2018 Status: COMPLETED Source: [place] 11:02 PM [facility] REPOSITORY HNO ID: [id number] Author: Lisa MoodyRn) RAINA Wesley Service: Nursing Author Type: Registered Nurse Type: Nursing Progress Note Filed: 04/23/2018 11:04 PM Note Text: Nursing Progress Note Patient Name: Jeffrey Cullen Patient Location: [address]/[id number]-* Spoke with Dr. Watson about pt's extreme agitation. Requested something to help with the agitation as this RN gave the pt his haldol at [address] Watson said he will take a look at what could be given to the pt. Will continue to monitor. This note was completed by: Lisa Wesley RN THERAPY NT Observed: 04/23/2018 Status: COMPLETED Source: [place] 10:03 AM [facility] REPOSITORY HNO ID: [id number] Author: Gregg (Ccc-Field Mechanical Meter Tester) PEARL Rand/HYDRATION PLANT OPERATOR Service: Speech/Swallow Author Type: Speech Language Pathologist Type: Therapy (PT/OT/Speech/Resp) Filed: 04/23/2018 10:16 AM Note Text: Speech Therapy Clinical Swallow Evaluation Speaking Valve Evaluation Cognitive Treatment SERVICE DATE: 04/23/2018 SERVICE TIME: 904 to 999 ROOM: [id number] Nursing Recommendations: See swallow guide posted in patients room See Speaking Valve instructions in room Diet Recommendations: NPO with alternative means of nutrition/hydration/medication Please order: Instrumental Swallow Assessment Recommendations: Modified Barium Swallow Study (MBSS) to further assess swallowing function Speaking Valve Recommendations: Patient can tolerate a speaking valve Speaking Valve Use: Use with staff supervision Speaking Valve Use Tolerance (minutes): 10 Results and Recommendations Discussed With: Patient;Nurse Recommended Discharge Disposition: ECF IMPRESSION: Patient demonstrates moderate-severe oral-pharyngeal dysphagia which is negatively impacting his/her ability to effectively maintain adequate nutrition and hydration and/or airway safety. Patient demonstrates moderate cognitive deficits; mild voicing deficits s/p PMSV trials which is negatively impacting the patient's ability to effectively communicate basic ADL medical and social wants/needs with familiar and unfamiliar communication partners. Rehabilitation Precautions: Dysphagia;Cognitive Linguistics Deficits;NPO NPO Precautions: PEG ASSESSMENT: - Patient in bed upon arrival, sleepy but easily awakes - Completed swallow assessment - Trialed thin via spoon, cup, and straw: cough after swallow - Trialed nectar-thick liquid via cup and straw: no overt signs or symptoms of aspiration - Trialed puree: no overt signs or symptoms of aspiration - Reduced hyo-laryngeal movement - Patient would benefit from a Modified Barium Swallow Study to further assess swallowing function - Continue NPO until test completed - Completed Passy Eugene Speaking Valve evaluation - Yesenia #6, cuffed, deflated, on trach mask 10L - Initial coughing noted with valve - Vocal intensity improves significantly with valve as well as breath support for speech - Voice is hoarse - Recommend patient to use Passy Jason Speaking Valve t/o day with staff supervision - ST to follow to improve tolerance of Passy Eugene Speaking Valve and improve voicing - Cognitive therapy - Patient still with +language of confusion - AxO to self only - Able to attend to topic of conversation with moderate cueing for 3 turns - Able to solve basic problem solving tasks with 2/5 accuracy - Completed basic memory tasks with 1/5 accuracy - ST to follow to improve cognitive skills Tolerated Full Session Goals for Plan of Care: Cognitive Goals: Patient will demonstrate orientation to person, place, time, situation to 90% accuracy given moderate cues so that the patient can more actively engage in own personal care and recovery. - see above April 23, 2018 Patient will improve functional auditory memory skills to 80% accuracy given moderate cues so that the patient may apply safety precautions for personal welfare. - see above April 23, 2018 Patient will demonstrate use of simple problem solving, safety awareness, organization, sequencing, and reasoning skills with 80% accuracy given moderate cues so that the patient may participate in personal discharge planning. - see above April 23, 2018 Patient will demonstrate an attention span of 5 minutes so that the patient may activley participate in ADL care given moderate cues with 80% accuracy. ? Swallow Goals: Patient will participate in a Modified Barium Swallow Study (MBS) to thoroughly evaluate the oral and pharyngeal phase of the swallow, which cannot be substantiated through a clinical swallowing evaluation only. Through further diagnostic testing a definitive diagnosis/identification of the patient's current swallowing function and recommended treatment plan can be established. Voice Following Tracheostomy Goals: Patient will tolerate placement of speaking valve for 15 minutes with assistance from Speech-Language Pathologist. Patient will produce adequate voicing at the word, phrase, sentence and conversation level in 8 out of 10 trials given moderate cues so that the patient can functionally communicate with caregivers. Patient /Caregiver Goals: Go Home Progress Toward Goals: Progressing as expected Rehab Potential: Fair PLAN: Treatment Frequency (times per week): 3 Current admission Treatment Interventions: Cognitive-Linguistic Management;Oral Communication Management;Dysphagia Management Plan of Care Developed with: Patient TREATMENT INTERVENTIONS: Therapy Diagnosis: Unspecified symbolic dysfunctions;Other voice and resonance disorders;Dysphagia, oropharyngeal phase Interventions Provided: Clinical Swallow Evaluation (39908);Fit Prosthetic Voice Device (58337);Speech Therapy (73860) $ Clinical Swallow Evaluation (03844) Billed Units: 1 unit $ Fit Prosthetic Voice Device (80029) Billed Units: 1 unit $ Speech Therapy (12862) Billed Units: 1 unit Skilled Interventions: Educated and instructed patient on compensatory strategies for memory, problem solving, and orientation Total Treatment Time (minutes): 55 FUNCTIONAL G CODE: G Code Functional Limitations: Other Speech Language Pathology (04/22/18 1340) Other Functional Limitation Current Status (G9174): CK (04/22/18 1340) Other Functional Limitation Goal Status (G9175): CJ (04/22/18 1340) Based on clinical assessment and the score on the Functional Communication Measure (FCM), the G code and corresponding severity modifiers are documented above. SUBJECTIVE: Current Hospital Course: Chart reviewed and no significant medical updates relevant to therapy were noted Reason for Speech Therapy Consult: Trauma: assess cognition Relevant Past Medical History: Chronic respiratory failure, PEG, Trach Patient Report: I can talk better with this thing and I want a Coke Home Environment Prior Functional Level: Required Assistance Assistance Available: 24 Hour Prior Swallowing Function/Diet Textures: NPO with alternative means of nutrition/hydration/medication Please see discipline specific clinical documentation flowsheet for complete details for this therapy evaluation/treatment. SIGNATURE: Gregg Rand CCC-HYDRATION PLANT OPERATOR PATIENT NAME: Jeffrey Cullen DATE: April 23, 2018 TIME: 10:03 AM PAGER: [phone] NUTRITION Observed: 04/23/2018 Status: COMPLETED Source: [place] 9:58 AM CLINIC OTHER CAMPUS REPOSITORY HNO ID: [id number] Author: Sandra Alvarado) TREASURE Almaguer Service: Nutrition Therapy Author Type: Registered Dietitian Type: Nutrition Filed: 04/23/2018 12:20 PM Note Text: NUTRITION THERAPY INITIAL ASSESSMENT SERVICE DATE: 04/23/2018 SERVICE TIME: 9:58 AM RECOMMENDED MALNUTRITION DIAGNOSIS: MODERATE PROTEIN-CALORIE MALNUTRITION In the context of Chronic Illness or Injury based on: Subcutaneous Fat Loss: Mild Loss Muscle Loss Moderate Loss NUTRITION CARE PLAN: Problem, Etiology and Signs/Symptoms: Suboptimal oral intake related to dysphagia as evidenced by Speech therapy assessment and PEG-J tube placement. Intervention: Recommend start Isosource 1.5 at goal rate 56 mL/hr to provide 1344 mL product - 2016 kcal, 91.4 gm protein, and 1026 mL free water. Flush with 30 mL 6 times per day When IVF d/c'd increase flush to 165 mL 6 times per day. Coordination of Care: Recommend swallow evaluation per Speech Language Pathologist Nursing Monitor and Evaluation: Goal: Meet >75% of estimated needs Monitor fluid/electrolyte balance Monitor labs, I/Os, vital signs, weight Monitor tolerance to tube feeding Discharge Nutrition Recommendations: To be determined Chart reviewed for MD consult Per HPI: 67 year old white male. Presented to [facility] from his group home after a fall from his wheelchair, struck his face and had a laceration to the left forehead that was repaired at [facility]. CT head showed SDH, so he was transferred to [facility]. Patient was recently discharged to his group home from [facility]. S/p Trach/PEG. Recent h/o CABG in 02/12, complicated with resp failure, encephalopathy, and E. Coli/Klebsiella PNA. Afib on Eliquis. Given Feba at [facility]. Baseline encephalopathy, oriented to person and place, but not time. Met with patient limited conversation, rolled eyes when RD talked about ST eval for swallowing vs using PEG for tube feeding. ACTIVE PROBLEM LIST Inguinal Hernia Without Mention of Obstruction Or Gangrene, Unilateral Or Unspecified, (Not Specified As Recurrent) Nstemi (Non-St Elevated Myocardial Infarction) (Hcc) Nsvt (Nonsustained Ventricular Tachycardia) (Hcc) Nicotine use disorder, F17.2 Severe Protein-Calorie Malnutrition (Hcc) Encephalopathy Weakness Acute Respiratory Failure With Hypoxia (Hcc) Afib (Hcc) Cad (Coronary Artery Disease) Chronic Respiratory Failure (Hcc) Sdh (Subdural Hematoma) (Hcc) Fall From Wheelchair PAST MEDICAL HISTORY Diagnosis Date - Afib (HCC) - CAD (coronary artery disease) - Chronic respiratory failure (HCC) PAST SURGICAL HISTORY Procedure Laterality Date - CABG (3) VEIN GRAFTS AND ARTERIAL GRAFT(S) 01/2018 - ORTHOPEDICS SURGERY HX - PEG INSERTION_*FL - REPAIR ING HERNIA,5+Y/O,REDUCIBL 1990 Hernia repair, inguinal,left - TRACHEOSTOMY, <2 Y/O Present Diet Order: NPO Enteral Access: PEG-J tube Nutritional Intake Prior to Admission: >75% estimated energy needs over the past 1-2 month(s), with meeting needs via PEG with tube feed GI symptoms: none Abdominal Exam: abdomen is soft and nondistended and bowel sounds are normal, per paste mixing supervisor Is the patient having any pain that is interfering with oral/enteral intake? No ANTHROPOMETRICS Height: 182.9 cm (6') Admission Weight: 104.3 kg (230 lb) Current Weight: 104.3 kg (230 lb) Body mass index is 31.19 kg/m?. class 1 obesity Weight appears stable over past 4 months. Last Wt 04/22/18 : 104.3 kg (230 lb), stated weight, question accuracy 04/22/18 : 95.3 kg (210 lb), estimated weight 04/13/18 108 kg (238 lb 12.8 oz), Select 02/08/18 : 104.3 kg (229 lb 15 oz) 02/07/18 : 104.3 kg (230 lb) 12/04/07 : 100.2 kg (221 lb) [place] Body Weight: 77.6kg Dosing Weight: 104.3 kg Resting Metabolic Rate: 1855 Estimated kilocalorie needs: 0269-9167 kilocalories determined by 25-30 kcal/kg ideal body weight Estimated protein needs: 93-124 grams determined by 1.2-1.6 g/kg [place] weight Estimated fluid needs: 7856-7382 milliliters based on 1 mL per kcal NUTRITION FOCUSED PHYSICAL EXAM: Subcutaneous Fat Loss Orbital Mild Triceps Mild Mid-axillary at the iliac crest Unable to determine at this time Muscle Loss Locations: Temporalis Moderate Pectoralis No muscle loss Deltoids No muscle loss Interosseous No muscle loss Latissimus dorsi, trapezius No muscle loss Quadriceps Unable to determine at this time Gastrocnemius Unable to determine at this time Potential micronutrient deficiency revealed in: Unable to determine at this time Edema: No Ascites: No Assessment of Functional Status: Functional capacity is unrelated to nutrition status Temperature Max in 24 hours: Temp (24hrs), Av.2 ?C (97.2 ?F), Min:36.1 ?C (97 ?F), Max:36.4 ?C (97.5 ?F) BP 83/66 Pulse 62 Temp 36.1 ?C (97 ?F) (Temporal Artery) Resp 21 Ht 182.9 cm (6') Wt 104.3 kg (230 lb) SpO2 100% BMI 31.19 kg/m? Recent Labs 04/22/18 0855 04/22/18 0502 GLUC -- 93 BUN -- 28* CREAT -- 0.84 NA -- 137 K -- 4.2 CHLOR -- 101 CO2 -- 24 ALB -- 3.0* HB 11.1* 11.9* HCT 34.7* 37.5* WBC 10.23* 11.02* Potential Signs of Inflammation: leukocytosis, hypoalbuminemia and chronic disease ALLERGIES Allergen Reactions - Bee Sting Unknown Current Facility-Administered Medications: iv contrast (radiology procedure) INTRAVENOUS DIRECTED PRN valproic acid 500 mg CUP (DEPAKENE) 500 mg PEG q 8 H atorvastatin 40 mg tab(s) (LIPITOR) 40 mg PEG AT BEDTIME haloperidol lactate 5 mg oral liquid (HALDOL) 5 mg PEG q 8 H PRN albuterol 2.5 mg /3 mL (0.083 %) 2.5 mg (PROVENTIL) 2.5 mg INHALATION q 2 H PRN ipratropium-albuterol 3 mL nebulizer solution (DUONEB) 3 mL INHALATION QID thiamine 100 mg tab(s) (VITAMIN B1) 100 mg PEG DAILY budesonide 0.5 mg/2 mL 1 mg (PULMICORT) 1 mg INHALATION BID potassium chloride 80-120 mEq oral liquid 80-120 mEq ORAL/FEEDING TUBE PRN potassium chloride iv piggyback 20 mEq in sterile water 100 mL 20 mEq INTRAVENOUS PRN magnesium sulfate in water 2 g in sterile water 50 ml 2 g INTRAVENOUS PRN sodium phosphate 45 mmol in NaCl 0.9% 250 mL 45 mmol INTRAVENOUS PRN calcium gluconate 4 g in NaCl 0.9% 250 mL 4 g INTRAVENOUS PRN Chlorhexidine Gluconate 0.12 % 15 mL (PERIDEX) 15 mL ORAL q 12 H dextrose 5% in NaCl 0.9% iv infusion 75 mL/hr INTRAVENOUS CONTINUOUS ondansetron 4 mg tab(s) (ZOFRAN) 4 mg ORAL q 6 H PRN Or ondansetron (PF) 4 mg injection (ZOFRAN) 4 mg INTRAVENOUS q 6 H PRN morphine 4 mg injection 4 mg INTRAVENOUS q 4 H PRN acetaminophen 650 mg CUP (TYLENOL) 650 mg PEG q 6 H PRN oxyCODONE 5-10 mg oral liquid (ROXICODONE) 5-10 mg ORAL q 6 H PRN docusate sodium oral liquid 100 mg/10 mL (DIOCTO,COLACE) 100 mg PEG BID levETIRAcetam iv piggyback 1,000 mg in NaCl (iso-osmotic) 100 mL (KEPPRA) 1,000 mg INTRAVENOUS TID amiodarone 200 mg tab(s) (PACERONE) 200 mg PEG DAILY lisinopril 2.5 mg tab(s) 2.5 mg PEG DAILY nadolol 40 mg tab(s) (CORGARD) 40 mg PEG DAILY famotidine 20 mg oral liquid (PEPCID) 20 mg PEG BID senna leaf extract 176 mg/5 mL 528 mg 15 mL PEG BID MNT Billing Type: Initial Assess/15 min 4 units SIGNATURE: Sandra Almaguer RD, LD PATIENT NAME: Jeffrey Cullen DATE: April 23, 2018 TIME: 9:58 AM PAGER: [phone] PROGRESS Observed: 04/23/2018 Status: COMPLETED Source: [place] 8:37 AM CLINIC OTHER CAMPUS REPOSITORY HNO ID: [id number] Author: Lynne Christy Service: ADT-SICU Author Type: Physician Type: Progress Notes Filed: 04/23/2018 11:04 AM Note Text: INPATIENT SICU PROGRESS NOTE SERVICE DATE: 04/23/2018 SERVICE TIME: 8:37 AM Subjective No acute issues overnight. Awake and alert this morning. No abdominal pain, N/V. Following commands, MATHEW. Current hospital medications: iv contrast (radiology procedure) INTRAVENOUS DIRECTED PRN iv contrast (radiology procedure) INTRAVENOUS DIRECTED PRN valproic acid 500 mg CUP (DEPAKENE) 500 mg PEG q 8 H atorvastatin 40 mg tab(s) (LIPITOR) 40 mg PEG AT BEDTIME haloperidol lactate 5 mg oral liquid (HALDOL) 5 mg PEG q 8 H PRN albuterol 2.5 mg /3 mL (0.083 %) 2.5 mg (PROVENTIL) 2.5 mg INHALATION q 2 H PRN ipratropium-albuterol 3 mL nebulizer solution (DUONEB) 3 mL INHALATION QID thiamine 100 mg tab(s) (VITAMIN B1) 100 mg PEG DAILY budesonide 0.5 mg/2 mL 1 mg (PULMICORT) 1 mg INHALATION BID potassium chloride 80-120 mEq oral liquid 80-120 mEq ORAL/FEEDING TUBE PRN potassium chloride iv piggyback 20 mEq in sterile water 100 mL 20 mEq INTRAVENOUS PRN magnesium sulfate in water 2 g in sterile water 50 ml 2 g INTRAVENOUS PRN sodium phosphate 45 mmol in NaCl 0.9% 250 mL 45 mmol INTRAVENOUS PRN calcium gluconate 4 g in NaCl 0.9% 250 mL 4 g INTRAVENOUS PRN Chlorhexidine Gluconate 0.12 % 15 mL (PERIDEX) 15 mL ORAL q 12 H dextrose 5% in NaCl 0.9% iv infusion 75 mL/hr INTRAVENOUS CONTINUOUS ondansetron 4 mg tab(s) (ZOFRAN) 4 mg ORAL q 6 H PRN ondansetron (PF) 4 mg injection (ZOFRAN) 4 mg INTRAVENOUS q 6 H PRN morphine 4 mg injection 4 mg INTRAVENOUS q 4 H PRN acetaminophen 650 mg CUP (TYLENOL) 650 mg PEG q 6 H PRN oxyCODONE 5-10 mg oral liquid (ROXICODONE) 5-10 mg ORAL q 6 H PRN docusate sodium oral liquid 100 mg/10 mL (DIOCTO,COLACE) 100 mg PEG BID levETIRAcetam iv piggyback 1,000 mg in NaCl (iso-osmotic) 100 mL (KEPPRA) 1,000 mg INTRAVENOUS TID amiodarone 200 mg tab(s) (PACERONE) 200 mg PEG DAILY lisinopril 2.5 mg tab(s) 2.5 mg PEG DAILY nadolol 40 mg tab(s) (CORGARD) 40 mg PEG DAILY famotidine 20 mg oral liquid (PEPCID) 20 mg PEG BID senna leaf extract 176 mg/5 mL 528 mg 15 mL PEG BID Objective VITAL SIGNS BP 110/45 Pulse 60 Temp (Src) 97 (Temporal Artery) Resp 15 Ht 6' 0 (1.83m) Wt 230 lb (104.3kg) SpO2 98% BMI 31.19 kg/(m2). Temp (24hrs), Av.5 ?C (97.7 ?F), Min:36.1 ?C (97 ?F), Max:37.3 ?C (99.1 ?F) Date 04/22/18 07 - 04/23/18 0659 04/23/18 07 - 04/24/18 0659 Shift 2569-2085 8151-9790 3217-1534 24 Hour Total 7407-3400 4335-1712 6599-1316 24 Hour Total I N T A K E Shift Total O U T P U T Urine 250 150 325 725 Void (ml) 250 150 325 725 Urine Incontinence/Not Saved 1 x 1 x 2 x # of BMs Number of BMs 1 x 1 x Shift Total 250 150 325 725 Weight (kg) 104.3 104.3 104.3 104.3 104.3 104.3 104.3 104.3 GENERAL: No distress, Alert NEURO: AANDOx3, CN II-XII grossly intact HEENT: normocephalic, atraumatic LUNGS: Unlabored breathing via trach CARDIAC: Regular rate and rhythm as above ABDOMEN: Soft, non-tender, non-distended PEG in place EXTREMITIES: MATHEW, No deformities, No edema. Decreased sensation in BLE SKIN: Skin color, texture, turgor normal, No rashes or lesions DATA: Diagnostic tests reviewed for today's visit: Recent Labs 04/22/18 0522 PH 7.466* PCO2 31.5* PO2 57.4* BE -0.2 HCO3 22.5 O2HB 86.3* COHB 1.6 MHGB 0.4 Recent Labs 04/22/18 0855 04/22/18 0522 04/22/18 0502 CREAT -- -- 0.84 BUN -- -- 28* NA -- -- 137 K -- -- 4.2 CHLOR -- -- 101 CO2 -- -- 24 ANION -- -- 12 GLUC -- -- 93 CA -- -- 9.0 ALB -- -- 3.0* AST -- -- 22 ALT -- -- 28 ALKPHOS -- -- 63 TBILI -- -- 0.6 WBC 10.23* -- 11.02* HB 11.1* -- 11.9* HCT 34.7* -- 37.5* PLT 224 -- 257 LACT -- 0.8 -- IMAGING: CT Brain: Relatively small acute left-sided interhemispheric and tentorial subdural hematoma as described above without significant associated mass effect. Assessment/Plan This is a 67 year old male, h/o trach/peg, s/p fall from wheelchair with SDH, forehead laceration, L 1st rib fracture ACTIVE PROBLEM LIST Inguinal Hernia Without Mention of Obstruction Or Gangrene, Unilateral Or Unspecified, (Not Specified As Recurrent) Nstemi (Non-St Elevated Myocardial Infarction) (Hcc) Nsvt (Nonsustained Ventricular Tachycardia) (Hcc) Nicotine use disorder, F17.2 Severe Protein-Calorie Malnutrition (Hcc) Encephalopathy Weakness Acute Respiratory Failure With Hypoxia (Hcc) Afib (Hcc) Cad (Coronary Artery Disease) Chronic Respiratory Failure (Hcc) Sdh (Subdural Hematoma) (Hcc) Fall From Wheelchair Neuro -Pain: Tylenol q6h prn, oxy IR, morphine -Haldol PRN -C-collar cleared -CTH stable in appearance -Swallow eval pending -Nilda CV -Troponin trending down, 0.064 from 0.141 Resp -Trach, no issues -UOP 575 + 2x -D5 NS @ 75 -BMP pending GI -Diet: DIET NPO -Diet pending swallow eval Heme -CBC pending -No DVT chemoprophylaxis Endo -No issues ID -Afebrile, WBC pending, no abx Ext -Bedrest currently -SCDs Dispo -Transfer to floor if ok with NSx DAILY ICU CHECKLIST: Restraints: No High: No Fluids: Yes Nutrition: Enteral- No. TPN- No. PO- No. Bowel: None Glycemic: No issues Prophylaxis. Yes SCDs. Mobility: Bedrest Lines: Peripheral 04/22/18 0855 Admission to Hospital Short Right Antecubital 16 Gauge (Active) Peripheral 04/22/18 0905 Admission to Hospital Short Right Forearm 18 Gauge (Active) Peripheral 04/22/18 0907 Admission to Hospital [place] Left Antecubital 18 Gauge (Active) Airway Tracheostomy (Active) SBT: NA SIGNATURE: Galdino Watson MD PATIENT NAME: Jeffrey Cullen DATE: April 23, 2018 TIME: 8:37 AM PAGER: [phone] SICU Service Pager: For questions or concerns Mon-Fri 6a-5p please page [phone]. After 5pm and on Weekends and Holidays, please page [phone]. Attending Note Repeat CT head stable. Ok to go back to group home.I evaluated the patient and personally participated in the hernandez components. I agree with the resident's findings and plan as documented and have discussed the case and management of the patient's care with the resident. Signature: Lynne Christy MD Date: 04/23/2018 Time: 11:04 AM PROGRESS Observed: 04/23/2018 Status: COMPLETED Source: [place] 6:49 AM CLINIC OTHER CAMPUS REPOSITORY HNO ID: [id number] Author: Jaclyn Staley Service: General Surgery Author Type: Physician Type: Progress Notes Filed: 04/23/2018 11:20 AM Note Text: Trauma Surgery Progress Note SERVICE DATE: 04/23/2018 SUBJECTIVE: Patient alert. Answers questions. States he hit hard when he fell from his wheelchair. Denies abdominal pain, headache, vision changes. Tolerating diet DIET NPO Nausea No Emesis No Flatus No Bowel movement No Pain Controlled Yes Ambulating No OBJECTIVE: Vitals: Temp (24hrs), Av.5 ?C (97.7 ?F), Min:36.1 ?C (97 ?F), Max:37.3 ?C (99.1 ?F) BP (!) 110/45 Pulse 60 Temp 36.1 ?C (97 ?F) (Temporal Artery) Resp 15 Ht 182.9 cm (6') Wt 104.3 kg (230 lb) SpO2 98% BMI 31.19 kg/m? O2 Therapy: Trach Collar IANDO: Date 04/22/18 07 - 04/23/18 0659 04/23/18 07 - 04/24/18 0659 Shift 6577-6123 0696-2301 4901-5888 24 Hour Total 0842-8191 6184-3913 1514-7525 24 Hour Total I N T A K E Shift Total O U T P U T Urine 250 150 325 725 Void (ml) 250 150 325 725 Urine Incontinence/Not Saved 1 x 1 x 2 x # of BMs Number of BMs 1 x 1 x Shift Total 250 150 325 725 Weight (kg) 104.3 104.3 104.3 104.3 104.3 104.3 104.3 104.3 MEDICATIONS Current Facility-Administered Medications: iv contrast (radiology procedure) INTRAVENOUS DIRECTED PRN iv contrast (radiology procedure) INTRAVENOUS DIRECTED PRN valproic acid 500 mg CUP (DEPAKENE) 500 mg PEG q 8 H atorvastatin 40 mg tab(s) (LIPITOR) 40 mg PEG AT BEDTIME haloperidol lactate 5 mg oral liquid (HALDOL) 5 mg PEG q 8 H PRN albuterol 2.5 mg /3 mL (0.083 %) 2.5 mg (PROVENTIL) 2.5 mg INHALATION q 2 H PRN ipratropium-albuterol 3 mL nebulizer solution (DUONEB) 3 mL INHALATION QID thiamine 100 mg tab(s) (VITAMIN B1) 100 mg PEG DAILY budesonide 0.5 mg/2 mL 1 mg (PULMICORT) 1 mg INHALATION BID potassium chloride 80-120 mEq oral liquid 80-120 mEq ORAL/FEEDING TUBE PRN potassium chloride iv piggyback 20 mEq in sterile water 100 mL 20 mEq INTRAVENOUS PRN magnesium sulfate in water 2 g in sterile water 50 ml 2 g INTRAVENOUS PRN sodium phosphate 45 mmol in NaCl 0.9% 250 mL 45 mmol INTRAVENOUS PRN calcium gluconate 4 g in NaCl 0.9% 250 mL 4 g INTRAVENOUS PRN Chlorhexidine Gluconate 0.12 % 15 mL (PERIDEX) 15 mL ORAL q 12 H dextrose 5% in NaCl 0.9% iv infusion 75 mL/hr INTRAVENOUS CONTINUOUS ondansetron 4 mg tab(s) (ZOFRAN) 4 mg ORAL q 6 H PRN Or ondansetron (PF) 4 mg injection (ZOFRAN) 4 mg INTRAVENOUS q 6 H PRN morphine 4 mg injection 4 mg INTRAVENOUS q 4 H PRN acetaminophen 650 mg CUP (TYLENOL) 650 mg PEG q 6 H PRN oxyCODONE 5-10 mg oral liquid (ROXICODONE) 5-10 mg ORAL q 6 H PRN docusate sodium oral liquid 100 mg/10 mL (DIOCTO,COLACE) 100 mg PEG BID levETIRAcetam iv piggyback 1,000 mg in NaCl (iso-osmotic) 100 mL (KEPPRA) 1,000 mg INTRAVENOUS TID amiodarone 200 mg tab(s) (PACERONE) 200 mg PEG DAILY lisinopril 2.5 mg tab(s) 2.5 mg PEG DAILY nadolol 40 mg tab(s) (CORGARD) 40 mg PEG DAILY famotidine 20 mg oral liquid (PEPCID) 20 mg PEG BID senna leaf extract 176 mg/5 mL 528 mg 15 mL PEG BID Labs: Recent Labs 04/22/18 0855 04/22/18 0522 04/22/18 0502 NA -- -- 137 K -- -- 4.2 CHLOR -- -- 101 CO2 -- -- 24 BUN -- -- 28* CREAT -- -- 0.84 GLUC -- -- 93 ANION -- -- 12 CA -- -- 9.0 ALB -- -- 3.0* AST -- -- 22 ALT -- -- 28 ALKPHOS -- -- 63 TBILI -- -- 0.6 WBC 10.23* -- 11.02* HB 11.1* -- 11.9* HCT 34.7* -- 37.5* PLT 224 -- 257 LACT -- 0.8 -- PH -- 7.466* -- PCO2 -- 31.5* -- PO2 -- 57.4* -- BE -- -0.2 -- HCO3 -- 22.5 -- Exam: GENERAL: No distress, Alert NEURO: AANDOx3, CN II-XII grossly intact HEENT: normocephalic, atraumatic LUNGS: Unlabored breathing via trach CARDIAC: Regular rate and rhythm as above ABDOMEN: Soft, non-tender, non-distended PEG in place EXTREMITIES: MATHEW, No deformities, No edema. Decreased sensation in BLE SKIN: Skin color, texture, turgor normal, No rashes or lesions ASSESSMENT AND PLAN: Active Hospital Problems Diagnosis Date Noted - SDH (subdural hematoma) ([facility]) 04/22/2018 - Fall from wheelchair 04/22/2018 - CAD (coronary artery disease) - Chronic respiratory failure ([facility]) - Weakness 03/09/2018 - Encephalopathy 03/04/2018 Overview Note: - Severe protein-calorie malnutrition (HCC) 02/20/2018 67 year old male with h/o trach/PEG s/p fall from wheelchair with SDH, forehead laceration and 1st rib fracture - Repeat CT head this morning - Swallow eval for possible PO intake vs PEG only - Pain control - SCDs for DVT ppx, anticoagulation contraindicated secondary to intracranial hemorrhage - neurochecks - Keppra - HOB to 30 - SBP <160 SIGNATURE: Kristina Garrido MD PATIENT NAME: Jeffrey Cullen DATE: April 23, 2018 TIME: 6:49 AM Pager: [phone] Attending Note No change in status Stable head CT Start TF March send back to group home I evaluated the patient and personally participated in the hernandez components. I agree with the resident's findings and plan as documented and have discussed the case and management of the patient's care with the resident. Signature: Jacyln Staley MD Date: 04/23/2018 Time: 11:[address] HEAD W/O CONTRAST Observed: 04/23/2018 Status: F Source: [facility] 6:08 AM HEALTH SYSTEM REPOSITORY Performed at [facility] APPROVED BY: Jose Myles MD BRAIN CT WITHOUT CONTRAST ENHANCEMENT Serial transverse images of the brain were obtained without contrast material. The study was performed within 24 hours of arrival to evaluate a cardiac arrhythmia in conjunction with clinical suspicion for intracranial hemorrhage. CT Dose-Length Product (DLP): 828 mGy*cm CT Dose Reduction Employed: No dose reduction techniques were required Serial images demonstrate the presence of an acute subdural hematoma within the posterior portion of the interhemispheric fissure on the left extending along the tentorium. The hematomas estimated to m easure several millimeters in maximal thickness. Mass effect is limited to partial effacement of sulci. There is no definite evidence of acute infarction, mass lesion, or midline shift. There is generalized prominence of cortical subarachnoid spaces, cerebellar folia, basal cisterns in conjunction with g eneralized ventricular dilatation. IMPRESSION: Relatively small acute left-sided interhemispheric and tentorial subdural hematoma as described above without significant associated mass effect. CONSULT Observed: 04/22/2018 Status: COMPLETED Source: [place] 10:21 PM CLINIC OTHER CAMPUS REPOSITORY HNO ID: [id number] Author: Bert Bain Service: Neurosurgery Author Type: Physician Type: Consults Filed: 04/23/2018 11:09 AM Note Text: CONSULT NEUROSURGERY ARRIVAL DATE: 04/22/2018 ARRIVAL TIME: 9:12 AM CATEGORY: Level 2 INJURY DATE: 04/22/2018 INJURY TIME: 0500 Subjective This is a 67 year old white male. Presented to [facility] from his group home after a fall from his wheelchair, struck his face and had a laceration to the left forehead that was repaired at [facility]. CT head showed SDH, so he was transferred to [facility]. Patient was recently discharged to his group home from [facility]. S/p Trach/PEG. Recent h/o CABG in 02/12, complicated with resp failure, encephalopathy, and E. Coli/Klebsiella PNA. Afib on Eliquis. Given Feba at [facility]. Baseline encephalopathy, oriented to person and place, but not time. HPI/CHIEF COMPLAINT: OTHER MECHANISMS: Fall-Same Level BRIEF DESCRIPTION OF INJURIES: SDH, head laceration LAST FLUIDS/MEAL: unknown ALLERGIES No Known Allergies (Not in a hospital admission) DATE OF LAST TETANUS: unknown There is no immunization history on file for this patient. No past medical history on file. PAST SURGICAL HISTORY Procedure Laterality Date - ORTHOPEDICS SURGERY HX - REPAIR ING HERNIA,5+Y/O,REDUCIBL 1990 Hernia repair, inguinal,left Social History Marital status: Single Spouse name: Years of education: Number of children: Social History Main Topics Smoking status: Current Every Day Smoker Packs/day: 2.00 Years: 25.00 Types: Cigarettes Alcohol use: No Drug use: No Sexual activity: Yes Partners with: Female Other Topics Concern Service No Blood Transfusions No Caffeine Concern No Occupational Exposure No Hobby Hazards No Sleep Concern No Stress Concern No Weight Concern No Special Diet No Back Care No Exercise No Bike Helmet No Seat Belt No Self-Exams No ROS: Is the patient having any pain? Yes, head/face Constitutional: Negative Eye/Ear/Nose: Negative Respiratory: Negative Cardiovascular: Negative GI/Liver/Biliary: Negative Genitourinary: Negative Psychiatric: Negative Neurologic: Negative Musculoskeletal: Negative Integument: Negative Endocrine: Negative Heme/Lymph: Negative Objective PRIMARY SURVEY AIRWAY: Patent BREATHING: Breath sounds equal CIRCULATION: PT/DP 2+, Radials 2+, Femoral 2+ DISABILITY: Eye: 4=Spontaneous Verbal: 4=Disoriented and Converses Motor: 6=Obeys Commands Total GCS: 14=4 Resp Rate: 10 to 29=4 Syst BP: > than 89=4 REVISED TRAUMA SCORE: 12 EXPOSE / ENVIRONMENT: Warm Blankets PROCEDURES: C-collar placed on arrival to [facility] SECONDARY SURVEY VITALS: BP 121/63 Pulse 60 Temp (!) 37.3 ?C (99.1 ?F) (Oral) Resp 24 SpO2 96% NEURO: Alert AND Oriented x 2, GCS 14, Cranial Nerves II-XII Intact, Moves All Extremities, Strength Symmetrical, No Sensory Deficits HEENT: Laceration to L forehead s/p suture repair. Small laceration to nasal bridge. NECK: No midline pain with palpation. Trach in place. RESPIRATORY: No abrasions or contusions, No crepitus, No TTP, wet upper airway sounds. CARDIOVASCULAR: Heart rate regular, S1S2 with no R/M/G ABDOMEN: Non-distended, Non-tenderness or peritoneal signs, PEG tube in place. PELVIC/PERINEAL: Pelvis stable to palpation, No blood noted at urethra meatus, Rectal exam with positive tone and negative for blood BACK/SPINE: Thoracolumbar spinal column non-tender, No step off or deformity noted, No external injury noted EXTREMITIES: MATHEW, no traumatic injuries. RADIOLOGICAL/OTHER TEST DATA: See below PRIOR TO ARRIVAL: No Loss of Consciousness No ETT Medications Given: Feba IMAGES CT Brain Mild chronic small vessel ischemic change. There is a focal less than 3 mm thick focus of subdural hemorrhage overlying the anteromedial left frontal lobe. There is also trace subdural hemorrhage seen along the left side of the interhemispheric falx on images 29-33, no greater than 2 mm in thickness. No current evidence of parenchymal contusion, subarachnoid hemorrhage or epidural hematoma. Persistent metopic suture noted. Scalp contusion, left paramedian forehead/frontal scalp. Three Affiliated ocular lenses are not seen, consistent with prior bilateral cataract surgery. Punctate radiopacity within the left infraorbital facial cheek may represent age-indeterminate foreign body more likely than focal calcification. CT C-Spine: No definitive evidence of acute fracture or dislocation involving the cervical spine as described above. ?A subacute/chronic fracture is noted involving the left first rib. CT Chest: Stable appearance of the thorax without evidence for injury CT Abd/Pel: In comparison to the previous noncontrast CT, there has been no significant change in the abdomen or pelvis. ?No acute process is seen. Stable renal cystic structures including probable right hyperdense cyst. ?Since solid lesion is not entirely excluded, follow-up studies are suggested to assure long-term stability. Pelvis XR: No acute fracture or dislocation LABS: CBC, Coags, BMP, Mg, Phos Recent Labs 04/22/18 0855 04/22/18 0502 WBC 10.23* 11.02* HB 11.1* 11.9* HCT 34.7* 37.5* PLT 224 257 NA -- 137 K -- 4.2 CHLOR -- 101 CO2 -- 24 BUN -- 28* CREAT -- 0.84 GLUC -- 93 CA -- 9.0 Liver Function, Amylase, AND Lipase Recent Labs 04/22/18 0522 04/22/18 0502 TPROT -- 7.0 ALB -- 3.0* ALT -- 28 AST -- 22 ALKPHOS -- 63 TBILI -- 0.6 LACT 0.8 -- Assessment/Plan 67 year old male, h/o trach/peg, s/p fall from wheelchair with SDH, forehead laceration, L 1st rib fracture - Admit to NSICU per Trauma - Rpt CT Head in am - Neuro checks - Keppra - Thiamine - Bedrest - Hold anticoagulation Discussed with Dr. Taya MD Neurosurgery Attending : Pt seen, examined and discussed with Trauma Service. Pt has post traumatic small SDH along the left side of the falx and tentorium with no resultant Neuro deficit. No surgery indicated. Needs observation and F/U. Bert Bain MD SIGNATURE: Krystina Solano MD PATIENT NAME: Jeffrey Cullen DATE: April 22, 2018 TIME: 9:12 AM PAGER/CONTACT #: see above TROPONIN I Collected: 04/22/2018 Status: F Source: [facility] 3:45 PM HEALTH SYSTEM REPOSITORY TYPE CODE TESTS RESULT OUT OF REFERENCE UNITS RANGE LAB TROP(LOINC) 0.015-0.045 ng/ml High Troponin I 0.064 Performed By: #### TROP #### [facility] [address] [id number] Observed: 04/22/2018 Status: F Source: [facility] MRSA SCREEN 3:45 PM HEALTH SYSTEM REPOSITORY Test performed at [facility] No MRSA detected. Performed By: #### MRSA #### [facility] [address] [id number] CONSULT Observed: 04/22/2018 Status: COMPLETED Source: [place] 2:46 PM CLINIC OTHER CAMPUS REPOSITORY HNO ID: [id number] Author: Lynne Christy Service: ADT-SICU Author Type: Physician Type: Consults Filed: 04/23/2018 12:51 AM Note Text: CONSULT SICU ARRIVAL DATE: 04/22/2018 ARRIVAL TIME: 9:12 AM CATEGORY: Level 2 INJURY DATE: 04/22/2018 INJURY TIME: 0500 Subjective This is a 67 year old white male. Presented to [facility] from his group home after a fall from his wheelchair, struck his face and had a laceration to the left forehead that was repaired at [facility]. CT head showed SDH, so he was transferred to [facility]. Patient was recently discharged to his group home from [facility]. S/p Trach/PEG. Recent h/o CABG in 02/12, complicated with resp failure, encephalopathy, and E. Coli/Klebsiella PNA. Afib on Eliquis. Given Feba at [facility]. Baseline encephalopathy, oriented to person and place, but not time. HPI/CHIEF COMPLAINT: OTHER MECHANISMS: Fall-Same Level BRIEF DESCRIPTION OF INJURIES: SDH, head laceration LAST FLUIDS/MEAL: unknown ALLERGIES No Known Allergies (Not in a hospital admission) DATE OF LAST TETANUS: unknown There is no immunization history on file for this patient. No past medical history on file. PAST SURGICAL HISTORY Procedure Laterality Date - ORTHOPEDICS SURGERY HX - REPAIR ING HERNIA,5+Y/O,REDUCIBL 1989 Hernia repair, inguinal,left Social History Marital status: Single Spouse name: Years of education: Number of children: Social History Main Topics Smoking status: Current Every Day Smoker Packs/day: 2.00 Years: 25.00 Types: Cigarettes Alcohol use: No Drug use: No Sexual activity: Yes Partners with: Female Other Topics Concern Service No Blood Transfusions No Caffeine Concern No Occupational Exposure No Hobby Hazards No Sleep Concern No Stress Concern No Weight Concern No Special Diet No Back Care No Exercise No Bike Helmet No Seat Belt No Self-Exams No ROS: Is the patient having any pain? Yes, head/face Constitutional: Negative Eye/Ear/Nose: Negative Respiratory: Negative Cardiovascular: Negative GI/Liver/Biliary: Negative Genitourinary: Negative Psychiatric: Negative Neurologic: Negative Musculoskeletal: Negative Integument: Negative Endocrine: Negative Heme/Lymph: Negative Objective PRIMARY SURVEY AIRWAY: Patent BREATHING: Breath sounds equal CIRCULATION: PT/DP 2+, Radials 2+, Femoral 2+ DISABILITY: Eye: 4=Spontaneous Verbal: 4=Disoriented and Converses Motor: 6=Obeys Commands Total GCS: 14=4 Resp Rate: 10 to 29=4 Syst BP: > than 89=4 REVISED TRAUMA SCORE: 12 EXPOSE / ENVIRONMENT: Warm Blankets PROCEDURES: C-collar placed on arrival to [facility] SECOND[facility] SURVEY VITALS: BP 121/63 Pulse 60 Temp (!) 37.3 ?C (99.1 ?F) (Oral) Resp 24 SpO2 96% NEURO: Alert AND Oriented x 2, GCS 14, Cranial Nerves II-XII Intact, Moves All Extremities, Strength Symmetrical, No Sensory Deficits HEENT: Laceration to L forehead s/p suture repair. Small laceration to nasal bridge. NECK: No midline pain with palpation. Trach in place. RESPIRATORY: No abrasions or contusions, No crepitus, No TTP, wet upper airway sounds. CARDIOVASCULAR: Heart rate regular, S1S2 with no R/M/G ABDOMEN: Non-distended, Non-tenderness or peritoneal signs, PEG tube in place. PELVIC/PERINEAL: Pelvis stable to palpation, No blood noted at urethra meatus, Rectal exam with positive tone and negative for blood BACK/SPINE: Thoracolumbar spinal column non-tender, No step off or deformity noted, No external injury noted EXTREMITIES: MATHEW, no traumatic injuries. RADIOLOGICAL/OTHER TEST DATA: See below PRIOR TO ARRIVAL: No Loss of Consciousness No ETT Medications Given: Feba IMAGES CT Brain Mild chronic small vessel ischemic change. There is a focal less than 3 mm thick focus of subdural hemorrhage overlying the anteromedial left frontal lobe. There is also trace subdural hemorrhage seen along the left side of the interhemispheric falx on images 29-33, no greater than 2 mm in thickness. No current evidence of parenchymal contusion, subarachnoid hemorrhage or epidural hematoma. Persistent metopic suture noted. Scalp contusion, left paramedian forehead/frontal scalp. Three Affiliated ocular lenses are not seen, consistent with prior bilateral cataract surgery. Punctate radiopacity within the left infraorbital facial cheek may represent age-indeterminate foreign body more likely than focal calcification. CT C-Spine: No definitive evidence of acute fracture or dislocation involving the cervical spine as described above. ?A subacute/chronic fracture is noted involving the left first rib. CT Chest: Stable appearance of the thorax without evidence for injury CT Abd/Pel: In comparison to the previous noncontrast CT, there has been no significant change in the abdomen or pelvis. ?No acute process is seen. Stable renal cystic structures including probable right hyperdense cyst. ?Since solid lesion is not entirely excluded, follow-up studies are suggested to assure long-term stability. Pelvis XR: No acute fracture or dislocation LABS: CBC, Coags, BMP, Mg, Phos Recent Labs 04/22/18 0855 04/22/18 0502 WBC 10.23* 11.02* HB 11.1* 11.9* HCT 34.7* 37.5* PLT 224 257 NA -- 137 K -- 4.2 CHLOR -- 101 CO2 -- 24 BUN -- 28* CREAT -- 0.84 GLUC -- 93 CA -- 9.0 Liver Function, Amylase, AND Lipase Recent Labs 04/22/18 0522 04/22/18 0502 TPROT -- 7.0 ALB -- 3.0* ALT -- 28 AST -- 22 ALKPHOS -- 63 TBILI -- 0.6 LACT 0.8 -- Assessment/Plan 67 year old male, h/o trach/peg, s/p fall from wheelchair with SDH, forehead laceration, L 1st rib fracture Neuro: - NSX c/s - Rpt CT Head in am - Neuro checks - Keppra - Thiamine - Depakene - Haldol prn - Pain control CV: - VSS - Home meds - Trops elevated, trend q6H Resp: - Trach care - Proventil prn - IS GI: - PEG - NPO/IVF : - Is and Os - lytes prn Heme: - Feiba at OSH - DDAVP in ED - CBC daily Endo - No glycemic issues ID - CBC daily MSK: - PT/OT pending - SCDs PPX: - SCDs - A/C contraindicated at this time Lines: - PIVs, Trach ED DISPOSITION: To ICU Trauma Service Pager: For questions or concerns Mon-Fri 6a-5p please page [phone]. After 5pm and on Weekends and Holidays, please page [phone] if in ICU or [phone] if on RNF. Discussed with Dr. Pricila MD SIGNATURE: Krystina Solano MD PATIENT NAME: Jeffrey Cullen DATE: April 22, 2018 TIME: 9:12 AM PAGER/CONTACT #: see above I provided 35 minutes of critical care services which were necessary due to above specified injuries and illnesses. This patient has a high probability of sudden, clinical significant deterioration, which required the highest level of care and preparedness to intervene urgently. I managed and supervised life or organ supporting interventions that require frequent assessments. This time does not include time devoted to teaching and to any procedure I billed separately. I have personally seen and examined this patient and participated in the hernandez components of this encounter with the multi-disciplinary ICU team. I discussed the management of this case with the resident and reviewed/confirmed their documentation, attached or in separate note. I personally reviewed today's actual images, the associated image reports, and current labs. I supervised the ordering of additional testing, imaging, labs, and/or consultations. The patient and/or family were fully informed of the findings and plan of care. They had the opportunity to ask questions and raise any issues of concern, all of which were answered and dealt with by me to their stated satisfaction. The critical care treatment was mainly directed to address the following issues: SDH forehead laceration L 1st rib fracture (I48.0) Paroxysmal atrial fibrillation (HCC) (I25.810) Coronary artery disease involving other coronary artery bypass graft without angina pectoris (J96.10) Chronic respiratory failure, unspecified whether with hypoxia or hypercapnia (HCC) Management included sedation, pain control and ventilation assessment including need for ventilator, weaning and/or extubation as indicated. Management of critical care illnesses are edited above by me, including system by system plan and are not only limited to infectious disease and tailoring the antibiotic therapy, nutrition assessment and supplementation, electrolyte correction and prevention of ICU related complications using ventilator bundle, sedation holiday and assessment and removal of lines and tubes where indicated. SIGNATURE: Lynne Christy MD PATIENT NAME: Jeffrey Cullen DATE: April 22, 2018 Delayed note entry, patient seen on admission THERAPY NT Observed: 04/22/2018 Status: COMPLETED Source: [place] 2:16 PM CLINIC OTHER CAMPUS REPOSITORY HNO ID: [id number] Author: Gregg (Ccc-Field Mechanical Meter Tester) PEARL Rand/HYDRATION PLANT OPERATOR Service: Speech/Swallow Author Type: Speech Language Pathologist Type: Therapy (PT/OT/Speech/Resp) Filed: 04/22/2018 2:34 PM Note Text: Speech Therapy Speech Evaluation SERVICE DATE: 04/22/2018 SERVICE TIME: 1340 to 1410 ROOM: [id number] Nursing Recommendations: Encourage patient to speak slow and clear HYDRATION PLANT OPERATOR Recommendations: Consider Passy Eugene Speaking Valve Consider Bedside Swallow Evaluation Results and Recommendations Discussed With: Patient;Nurse;Physician Recommended Discharge Disposition: ECF IMPRESSION: Patient demonstrates moderate cognitive deficits which is negatively impacting the patient's ability to effectively communicate basic ADL medical and social wants/needs with familiar and unfamiliar communication partners. Rehabilitation Precautions: Cognitive Linguistics Deficits;NPO NPO Precautions: PEG ASSESSMENT: - Patient in bed upon arrival, alert and able to participate in therapy - Has PEG, has trach #6 Shiley, cuffed, deflated - Currently no Passy Jason Speaking Valve - Assessed speech, language, and cognitive skills: - Speech: unintelligible at times - Able to speak over trach but voice is breathy with reduced vocal intensity - Patient reports never using a speaking valve but has Passy Eugene Speaking Valve instructions on balloon outside trach - Language: receptive and expressive skills: WFL - Cognition: problem solving, memory, reasoning, and attention: moderate deficits - +perseveration noted - Decreased safety awareness - Reading/writing: To be assessed - Insight: reduced - Pragmatics: reduced - Patient with moderate cognitive deficits and decrease ability to community - Consider Passy Jason Speaking Valve - Patient has had PEG since previous admit; has not trialed any PO at [facility] - Spoke with Trauma, to be ordered - Consider Swallow Evaluation - Spoke with Trauma, will try tomorrow if head CT is normal - ST to follow to improve cognitive skills Tolerated Full Session Goals for Plan of Care: Cognitive Goals: Patient will demonstrate orientation to person, place, time, situation to 90% accuracy given moderate cues so that the patient can more actively engage in own personal care and recovery. Patient will improve functional auditory memory skills to 80% accuracy given moderate cues so that the patient may apply safety precautions for personal welfare. Patient will demonstrate use of simple problem solving, safety awareness, organization, sequencing, and reasoning skills with 80% accuracy given moderate cues so that the patient may participate in personal discharge planning. Patient will demonstrate an attention span of 5 minutes so that the patient may activley participate in ADL care given moderate cues with 80% accuracy. Patient /Caregiver Goals: Go Home Rehab Potential: Fair PLAN: Treatment Frequency (times per week): 3 Current admission Treatment Interventions: Cognitive-Linguistic Management Plan of Care Developed with: Patient TREATMENT INTERVENTIONS: Therapy Diagnosis: Unspecified symbolic dysfunctions Interventions Provided: Speech Language Eval (13403) $ Speech Language Eval (84205) Billed Units: 1 unit Total Treatment Time (minutes): 30 FUNCTIONAL G CODE: G Code Functional Limitations: Other Speech Language Pathology (04/22/18 1340) Other Functional Limitation Current Status (G9174): CK (04/22/18 1340) Other Functional Limitation Goal Status (G9175): CJ (04/22/18 1340) Based on clinical assessment and the score on the Functional Communication Measure (FCM), the G code and corresponding severity modifiers are documented above. SUBJECTIVE: Current Hospital Course: Chart reviewed: Diagnosis: Severe protein-calorie malnutrition Reason for admit: This is a 67 year old male presenting as trauma transfer from [facility]. Patient reportedly had a fall at [facility] in the night and was found to have a subdural on CT, given Feiba and transferred for trauma and neurosurgical consultation. Patient was a level II trauma team, was sent for CT imaging and additional testing per trauma and admitted . Reason for Speech Therapy Consult: Trauma: assess cognition Relevant Past Medical History: Chronic respiratory failure, PEG, Trach PAST MEDICAL HISTORY Diagnosis Date - Afib (HCC) - CAD (coronary artery disease) - Chronic respiratory failure (HCC) Patient Report: I feel so weak Home Environment Prior Functional Level: Required Assistance Assistance Available: 24 Hour Prior Swallowing Function/Diet Textures: NPO with alternative means of nutrition/hydration/medication Please see discipline specific clinical documentation flowsheet for complete details for this therapy evaluation/treatment. SIGNATURE: Gregg Rand CCC-HYDRATION PLANT OPERATOR PATIENT NAME: Jeffrey Cullen DATE: April 22, 2018 TIME: 2:16 PM PAGER: [phone] PROGRESS Observed: 04/22/2018 Status: COMPLETED Source: [place] 12:01 PM [facility] REPOSITORY HNO ID: [id number] Author: Lamonte Wharton Service: Trauma Author Type: Resident Type: Progress Notes Filed: 04/22/2018 12:02 PM Note Text: I spoke to patient's Sister and POA, Trev Carmen on the phone and she is aware of his clinical condition and plan of care. Lamonte Wharton MD 04/22/2018 12:02 PM EKG Observed: 04/22/2018 Status: F Source: [place] 10:54 AM [facility] OTHER [place] REPOSITORY NAME : JEFFREY CULLEN PID : [id number] : 1950 Gender : Male Race : ORD : Procedure Date : Apr 22 2018 10:54 Edit Date : Apr 25 2018 07:43 Diagnosis:NORMAL SINUS RHYTHM MODERATE VOLTAGE CRITERIA FOR LVH, MAY BE NORMAL VARIANT NONSPECIFIC ST AND T WAVE ABNORMALITY PROLONGED QT ABNORMAL ECG NO PREVIOUS ECGS AVAILABLE Confirmed by MD HERNANDEZ G (2) on 04/25/2018 7:43:10 AM Ventricular Rate : 69 BPM Atrial Rate : 69 BPM P-R Interval : 152 ms QRS Duration : 106 ms Q-T Interval : 434 ms QTC Calculation(Bezet) : 465 ms P Spencer : 47 degrees R Spencer : -1 degrees T Spencer : 9 degrees Test Reason : Location : 52 : [address] [place] [address] Overread By : MD HERNANDEZ G Editted By : MD HERNANDEZ G Referred By : , Acquired by : Frances Medrano ED NOTE Observed: 04/22/2018 Status: COMPLETED Source: [place] 10:32 AM [facility] REPOSITORY HNO ID: [id number] Author: Karen (Rn) RAINA Felder Service: Emergency Medicine Author Type: Registered Nurse Type: ED Notes Filed: 04/22/2018 10:34 AM Note Text: Pt repositioned and pulled up in bed multiple times. HOB elevated. Pt remains AANDOx3 and moving all extremities. Pt does appear restless and asking repeatedly for water. Mouth cleansed with oral sponges. ED PROV NOTE Observed: 04/22/2018 Status: COMPLETED Source: [place] 9:50 AM [facility] REPOSITORY HNO ID: [id number] Author: Bryan Velasquez MD Service: Emergency Medicine Author Type: Physician Type: ED Provider Notes Filed: 04/23/2018 9:56 AM Note Text: ED Provider Note Patient Name: Jeffrey Cullen SERVICE DATE: 04/22/18 History No chief complaint on file. 67-year-old male was a trauma transfer after having a fall at [facility]. According to EMS the patient fell forward out of his wheelchair striking his head on the ground. He denied loss of consciousness. At the outside hospital CT of the head was obtained which showed a subdural hematoma. Patient also had a laceration to the left side of his forehead which was repaired. She was transferred as level II trauma to her facility for evaluation. On arrival to the ED patient is awake and alert and answering questions. Patient can answer yes and no questions but this has history of dementia encephalopathy is a very poor historian. PAST MEDICAL HISTORY Diagnosis Date - Afib (HCC) - CAD (coronary artery disease) - Chronic respiratory failure (HCC) PAST SURGICAL HISTORY Procedure Laterality Date - CABG (3) VEIN GRAFTS AND ARTERIAL GRAFT(S) 01/2018 - ORTHOPEDICS SURGERY HX - PEG INSERTION_*FL - REPAIR ING HERNIA,5+Y/O,REDUCIBL 1990 Hernia repair, inguinal,left - TRACHEOSTOMY, <2 Y/O FAMILY HISTORY Problem Relation Age of Onset - Alcohol/Drug Father - Colon Cancer Mother - Diabetes Mother Social History Social History Main Topics - Smoking status: Current Every Day Smoker Packs/day: 2.00 Years: 25.00 Types: Cigarettes - Smokeless tobacco: Not on file - Alcohol use No - Drug use: No - Sexual activity: Yes Partners: Female ALLERGIES Allergen Reactions - Bee Sting Unknown Review of Systems Unable to perform ROS: Dementia Physical Exam BP 107/57 Pulse 70 Temp (Src) 99.1 (Oral) Resp 24 SpO2 96% Physical Exam Constitutional: He appears well-developed. No distress. HENT: Head: Normocephalic and atraumatic. Right Ear: External ear normal. Left Ear: External ear normal. Mouth/Throat: Oropharynx is clear and moist. No oropharyngeal exudate. Eyes: Conjunctivae and EOM are normal. Pupils are equal, round, and reactive to light. Right eye exhibits no discharge. Left eye exhibits no discharge. Neck: Normal range of motion. No tracheal deviation present. Cardiovascular: Normal rate, regular rhythm, normal heart sounds and intact distal pulses. Exam reveals no gallop and no friction rub. No murmur heard. Pulmonary/Chest: Effort normal and breath sounds normal. No respiratory distress. He has no wheezes. He has no rales. Abdominal: Soft. He exhibits no distension and no mass. There is no tenderness. There is no guarding. Musculoskeletal: He exhibits no edema or deformity. Neurological: He is alert. No cranial nerve deficit. Coordination normal. Skin: Skin is warm and dry. Capillary refill takes less than 2 seconds. Psychiatric: He has a normal mood and affect. Nursing note and vitals reviewed. Diagnostic Testing ED Labs Ordered and Reviewed CBC + AUTO DIFF (AK,AV,EU,FV,HL,RAIZA,MM,SP) - Abnormal; Notable for the following: Result Value Ref Range WBC 10.23 (*) 4.23 - 9.07 thou/cmm RBC 3.53 (*) 4.63 - 6.08 mil/cmm HGB 11.1 (*) 13.7 - 17.5 g/dL Hematocrit 34.7 (*) 40.1 - 51.0 % MCV 98.3 (*) 83.2 - 95.6 fl MCHC 32.0 (*) 32.3 - 36.5 % RDW 15.6 (*) 11.6 - 14.4 % RDW-SD 56.7 (*) 36.1 - 45.8 fl Abs. Neut(Anc) 7.16 (*) 1.78 - 5.38 thou/cmm Abs. Slope 1.14 (*) 0.30 - 0.82 thou/cmm All other components within normal limits ECU TROPONIN I ([place] [facility]) - Abnormal; Notable for the following: ECU Troponin I 0.141 (*) 0.015 - 0.045 ng/ml All other components within normal limits DRUG ANALYSIS COMPREHENSIVE (AK,RAIZA,MM) - Abnormal; Notable for the following: Acetaminophen <2.0 (*) 10.0 - 30.0 mg/L Salicylate <1.7 (*) 2.8 - 20.0 mg/dL All other components within normal limits URINE DRUG SCREEN (AK,AV,EU,FV,HL,RAIZA,MM,SP) TYPE + SCREEN (AK,AV,EU,FV,HL,RAIZA,MM,SP) Procedures Medical Decision Making MDM 67-year-old male who arrives as a level II trauma transfer from an outside hospital. On arrival to the ED the patient's airway is intact, he has bilateral breath sounds, patient has palpable pulses in all extremities, is able to move all extremities purposefully. Patient's High was removed and he was exposed. Secondary survey the patient has a 4 cm laceration over the left eyebrow which has been repaired. Patient is to less than 1 cm lacerations over the bridge of his nose. Patient's pupils are round and reactive extraocular movements are intact. Cranial nerves II-12 are grossly intact. Nasopharynx and oropharynx are clear. Patient's midface is stable and his trachea is midline. Patient had no C-spine T-spine or L-spine tenderness. Patient's chest is no tenderness step- offs or crepitus. Patient's abdomen was soft nontender nondistended. Patient had weak rectal tone with no blood in the vault extremities are atraumatic. The trauma service agreed to admit the patient for further medical management and evaluation. Patient was placed in a Tolleson collar. Patient was transferred to the NSICU in guarded condition. The patient was evaluated by myself and the attending physician. ED Course / Clinical Impression Clinical Impressions as of Apr 23 954 Paroxysmal atrial fibrillation (HCC) Coronary artery disease involving other coronary artery bypass graft without angina pectoris Chronic respiratory failure, unspecified whether with hypoxia or hypercapnia (HCC) SDH (subdural hematoma) (HCC) Laceration of forehead, initial encounter Plan Patient admitted to NSICU with trauma Condition: Guarded SIGNATURE: MD Jimi Oleary (Res) MD Luis Resident 04/22/18 1530 Bryan Velasquez MD 04/23/18 0956 ED PROV NOTE Observed: 04/22/2018 Status: COMPLETED Source: [place] 9:48 AM [facility] OTHER CAMPUS REPOSITORY O ID: [id number] Author: Bryan Velasquez MD Service: Emergency Medicine Author Type: Physician Type: ED Provider Notes Filed: 04/22/2018 9:51 AM Note Text: Attending Note I personally saw and examined the patient. I reviewed the resident's note. I agree with the resident's assessment and plan unless otherwise noted. I supervised the hernandez portion(s) of procedures performed on this patient by the resident physician. Physical Exam Item(s): forehead laceration repaired, nasal skin tear, AOx3, trach in place with secretions noted. LCTAB. No focal neuro deficits. PEG tube in place, no ABD tenderness This is a 67 year old male presenting as trauma transfer from [facility]. Patient reportedly had a fall at [facility] in the night and was found to have a subdural on CT, given Feiba and transferred for trauma and neurosurgical consultation. Patient was a level II trauma team, was sent for CT imaging and additional testing per trauma and admitted . Critical Care I spent a total of 30 minutes of critical care time in the evaluation and management of this patient. This was necessary to treat or prevent deterioration of the following condition(s): BEHAVIORAL HEALTH CONSULTANT impairment and Multiple trauma, which the patient had and/or has a high probability of suddenly developing. The patient received Consultation by trauma and neurosurgery during the time that critical care was provided. Critical care time excludes separately billed procedures. MD Bryan Cazares MD 04/22/[address] CHEST WITH Observed: 04/22/2018 Status: F Source: [facility] 9:26 AM HEALTH SYSTEM REPOSITORY Performed at [facility] APPROVED BY: Ismael Marin MD EXAMINATION: CHEST CT WITH CONTRAST CLINICAL HISTORY: Chest trauma, blunt. The patient fell Technique: Spiral CT acquisition of the chest from the thoracic inlet to the upper abdomen following IV contrast. MQ: [id number] Contrast: 150 mL IV Omnipaque 300-total dose CT chest, abdomen, and pelvis CT Dose-Length Product: 2095 mGy*cm-total dose CT chest, abdomen, and pelvis CT Dose Reduction Employed: 3. mAs or kVp was manually adjusted based on either the patient size or age. Comparison: 03/10/2018 RESULT: Limitations: Assessment of pulmonary detail is limited by involuntary patient respiratory motion artifact. Lines, tubes, and devices: There is continued presence of a tracheostomy tube which terminates well above the nelda. Central venous catheter noted previously may still be present but is obscured by intravenous contrast. Lung parenchyma and pleura: There is mild centrilobular and paraseptal emphysema. Scattered interstitial prominence is again evident and is somewhat nonspecific. This may be related to fine interstiti al edema. However, there is no focal pulmonary consolidation. There is no pleural effusion. There is no pneumothorax. No endobronchial mass is seen. Thoracic inlet, heart, and mediastinum: There are median sternotomy wires and postoperative changes. There is borderline cardiomegaly. No significant mediastinal or hilar lymphadenopathy. 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 There is no definite rib fracture. Upper abdomen: Discussed on a separate abdominal CT report IMPRESSION: Stable appearance of the thorax without evidence for injury. CT ABDOMEN AND PELVIS Observed: 04/22/2018 Status: F Source: [facility]AST 9:26 AM HEALTH SYSTEM REPOSITORY Performed at [facility] APPROVED BY: Ismael Marin MD Exam Title: CT OF THE ABDOMEN AND PELVIS WITH INTRAVENOUS CONTRAST EXAM DATE:04/22/2018 09:03 Clinical Indication/History: . Trauma. The patient fell COMPARISON: 03/10/2018 Technique: A CT of the abdomen and pelvis With Intravenous contrast. Contrast: 150 mL IV Omnipaque 300-total dose CT chest, abdomen, and pelvis CT Dose-Length Product: 2095 mGy*cm-total dose CT chest, abdomen, and pelvis CT Dose Reduction Employed: 1. Automated exposure control (AEC) was used. FINDINGS: CHEST BASE: Discussed on a separate chest CT report LIVER: Normal BILIARY TRACT AND GALLBLADDER:Normal PANCREAS:Normal SPLEEN:Normal ADRENAL GLANDS:Normal KIDNEYS AND RENAL COLLECTING SYSTEMS: There are stable appearing right-sided renal cystic structures. A higher attenuation right renal cortical nodule near the midpole is stable at approximately 16 mm. The previous exam suggested that this was a hyperdense cyst. Nonetheless, continued follow-up is recommended to exclude solid lesion. There is no hydronephrosis. LYMPH NODES AND RETROPERITONEUM:Normal VESSELS:Normal GI TRACT AND MESENTERY: There is a stable appearing percutaneous gastrojejunostomy catheter. No evidence for bowel obstruction. SOFT TISSUES AND MUSCULOSKELETAL:Normal BLADDER:Normal PELVIC ORGANS:Normal IMPRESSION: In comparison to the previous noncontrast CT, there has been no significant change in the abdomen or pelvis. No acute process is seen. Stable renal cystic structures including probable right hyperdense cyst. Since solid lesion is not entirely excluded, follow-up studies are suggested to assure long-term stability. CT CERVICAL SPINE W/O Observed: 04/22/2018 Status: F Source: [place] [facility] 9:26 AM HEALTH SYSTEM REPOSITORY Performed at [facility] APPROVED BY: Jose Myles MD CERVICAL SPINE CT WITHOUT CONTRAST ENHANCEMENT Serial transverse images of the cervical spine were obtained without contrast material. The images were reformatted in the coronal and sagittal planes. The study was performed to evaluate traumatic injury. CT Dose-Length Product (DLP): 458 mGy*cm CT Dose Reduction Employed: no dose reduction techniques were required Serial images demonstrate no definite evidence of acute fracture or dislocation involving the cervical spine. The cortical margins of the spinal canal and neural foramina are intact and the alignment i s essentially anatomic in the sagittal plane. Degenerative changes are identified involving intervertebral disc spaces, facet joints, and uncinate joints. There is evidence of a subacute/chronic fracture involving the left first rib with incomplete union, a vacuum phenomenon, and callus formation. IMPRESSION: No definitive evidence of acute fracture or dislocation involving the cervical spine as described above. A subacute/chronic fracture is noted involving the left first rib. ED NOTE Observed: 04/22/2018 Status: COMPLETED Source: [place] 9:20 AM [facility] OTHER CAMPUS REPOSITORY HNO ID: [id number] Author: Karen MoodyRn) RAINA Felder Service: Emergency Medicine Author Type: Registered Nurse Type: ED Notes Filed: 04/22/2018 9:21 AM Note Text: Pt in CT scanner. Tolerating well. HISTORY PHYSICAL Observed: 04/22/2018 Status: COMPLETED Source: [place] 9:12 AM [facility] OTHER CAMPUS REPOSITORY HNO ID: [id number] Author: Jaclyn Staley Service: Trauma Author Type: Physician Type: HANDP Filed: 04/23/2018 11:51 AM Note Text: TRAUMA HANDP [facility] ARRIVAL DATE: 04/22/2018 ARRIVAL TIME: 9:12 AM CATEGORY: Level 2 INJURY DATE: 04/22/2018 INJURY TIME: 0500 Subjective This is a 67 year old white male. Presented to [facility] from his group home after a fall from his wheelchair, struck his face and had a laceration to the left forehead that was repaired at [facility]. CT head showed SDH, so he was transferred to [facility]. Patient was recently discharged to his group home from [facility]. S/p Trach/PEG. Recent h/o CABG in 02/12, complicated with resp failure, encephalopathy, and E. Coli/Klebsiella PNA. Afib on Eliquis. Given Feba at [facility]. Baseline encephalopathy, oriented to person and place, but not time. HPI/CHIEF COMPLAINT: OTHER MECHANISMS: Fall-Same Level BRIEF DESCRIPTION OF INJURIES: SDH, head laceration, left first rib fx LAST FLUIDS/MEAL: unknown ALLERGIES No Known Allergies (Not in a hospital admission) DATE OF LAST TETANUS: unknown There is no immunization history on file for this patient. No past medical history on file. PAST SURGICAL HISTORY Procedure Laterality Date - ORTHOPEDICS SURGERY HX - REPAIR ING HERNIA,5+Y/O,REDUCIBL 1990 Hernia repair, inguinal,left Social History Marital status: Single Spouse name: Years of education: Number of children: Social History Main Topics Smoking status: Current Every Day Smoker Packs/day: 2.00 Years: 25.00 Types: Cigarettes Alcohol use: No Drug use: No Sexual activity: Yes Partners with: Female Other Topics Concern Service No Blood Transfusions No Caffeine Concern No Occupational Exposure No Hobby Hazards No Sleep Concern No Stress Concern No Weight Concern No Special Diet No Back Care No Exercise No Bike Helmet No Seat Belt No Self-Exams No ROS: Is the patient having any pain? Yes, head/face Constitutional: Negative Eye/Ear/Nose: Negative Respiratory: Negative Cardiovascular: Negative GI/Liver/Biliary: Negative Genitourinary: Negative Psychiatric: Negative Neurologic: Negative Musculoskeletal: Negative Integument: Negative Endocrine: Negative Heme/Lymph: Negative Objective PRIMARY SURVEY AIRWAY: Patent BREATHING: Breath sounds equal CIRCULATION: PT/DP 2+, Radials 2+, Femoral 2+ DISABILITY: Eye: 4=Spontaneous Verbal: 4=Disoriented and Converses Motor: 6=Obeys Commands Total GCS: 14=4 Resp Rate: 10 to 29=4 Syst BP: > than 89=4 REVISED TRAUMA SCORE: 12 EXPOSE / ENVIRONMENT: Warm Blankets PROCEDURES: C-collar placed on arrival to [facility] SECONDARY SURVEY VITALS: BP 121/63 Pulse 60 Temp (!) 37.3 ?C (99.1 ?F) (Oral) Resp 24 SpO2 96% NEURO: Alert AND Oriented x 2, GCS 14, Cranial Nerves II-XII Intact, Moves All Extremities, Strength Symmetrical, No Sensory Deficits HEENT: Laceration to L forehead s/p suture repair. Small laceration to nasal bridge. NECK: No midline pain with palpation. Trach in place. RESPIRATORY: No abrasions or contusions, No crepitus, No TTP, wet upper airway sounds. CARDIOVASCULAR: Heart rate regular, S1S2 with no R/M/G ABDOMEN: Non-distended, Non-tenderness or peritoneal signs, PEG tube in place. PELVIC/PERINEAL: Pelvis stable to palpation, No blood noted at urethra meatus, Rectal exam with positive tone and negative for blood BACK/SPINE: Thoracolumbar spinal column non-tender, No step off or deformity noted, No external injury noted EXTREMITIES: MATHEW, no traumatic injuries. RADIOLOGICAL/OTHER TEST DATA: See below PRIOR TO ARRIVAL: No Loss of Consciousness No ETT Medications Given: Feba IMAGES CT Brain Mild chronic small vessel ischemic change. There is a focal less than 3 mm thick focus of subdural hemorrhage overlying the anteromedial left frontal lobe. There is also trace subdural hemorrhage seen along the left side of the interhemispheric falx on images 29-33, no greater than 2 mm in thickness. No current evidence of parenchymal contusion, subarachnoid hemorrhage or epidural hematoma. Persistent metopic suture noted. Scalp contusion, left paramedian forehead/frontal scalp. Three Affiliated ocular lenses are not seen, consistent with prior bilateral cataract surgery. Punctate radiopacity within the left infraorbital facial cheek may represent age-indeterminate foreign body more likely than focal calcification. CT C-Spine: No definitive evidence of acute fracture or dislocation involving the cervical spine as described above. ?A subacute/chronic fracture is noted involving the left first rib. CT Chest: Stable appearance of the thorax without evidence for injury CT Abd/Pel: In comparison to the previous noncontrast CT, there has been no significant change in the abdomen or pelvis. ?No acute process is seen. Stable renal cystic structures including probable right hyperdense cyst. ?Since solid lesion is not entirely excluded, follow-up studies are suggested to assure long-term stability. Pelvis XR: No acute fracture or dislocation LABS: CBC, Coags, BMP, Mg, Phos Recent Labs 04/22/18 0855 04/22/18 0502 WBC 10.23* 11.02* HB 11.1* 11.9* HCT 34.7* 37.5* PLT 224 257 NA -- 137 K -- 4.2 CHLOR -- 101 CO2 -- 24 BUN -- 28* CREAT -- 0.84 GLUC -- 93 CA -- 9.0 Liver Function, Amylase, AND Lipase Recent Labs 04/22/18 0522 04/22/18 0502 TPROT -- 7.0 ALB -- 3.0* ALT -- 28 AST -- 22 ALKPHOS -- 63 TBILI -- 0.6 LACT 0.8 -- Assessment/Plan DIAGNOSES: 67 year old male, h/o trach/peg, s/p fall from wheelchair with SDH, forehead laceration, L 1st rib fx TREATMENT/EVALUATION PLANS: NSICU admit NPO/IVF Neurosurgery c/s Repeat CTH in am HOB > 30 DDAVP x 1 Pain control Neuro checks SBP < 160 Keppra Trops q6H Trauma Service Pager: For questions or concerns Mon-Fri 6a-5p please page [phone]. After 5pm and on Weekends and Holidays, please page [phone] if in ICU or [phone] if on RNF. ED DISPOSITION: To ICU FINAL INJURIES: No new injuries were identified after physical examination and review of final radiological reading(s) of all studies. SIGNATURE: Krystina Solano MD PATIENT NAME: Jeffrey Cullen DATE: April 22, 2018 TIME: 9:12 AM PAGER/CONTACT #: see above Attending Note As above Delayed signing of note Seen in ED Admit to NSICU Repeat head CT Anticoagulation revresed I evaluated the patient and personally participated in the hernandez components. I agree with the resident's findings and plan as documented and have discussed the case and management of the patient's care with the resident. Signature: Jaclyn Staley MD Date: 04/23/2018 Time: 11:49 AM ED NOTE Observed: 04/22/2018 Status: COMPLETED Source: [place] 9:08 AM [facility] REPOSITORY HNO ID: [id number] Author: Karen Johnson) RAINA Felder Service: Emergency Medicine Author Type: Registered Nurse Type: ED Notes Filed: 04/22/2018 9:15 AM Note Text: Patient transported to CT with RN and trauma team PELVIS 1 OR 2 VIEWS Observed: 04/22/2018 Status: F Source: [facility] 9:07 AM HEALTH SYSTEM REPOSITORY Performed at [facility] APPROVED BY: ELAINE SWEENEY MD STUDY: PELVIS AP, ONE VIEW DATE: 04/22/2018 09:05 COMPARISON: none HISTORY: Trauma ENCOUNTER: TECHNIQUE: Standard AP radiograph of the pelvis was obtained. RESULT: No acute fracture or dislocation. The hip and sacral iliac joint spaces are maintained. No widening of the pubic symphysis. Degenerative changes of the lower lumbar spine. Soft tissues grossly unremarkable. IMPRESSION: No acute fracture or dislocation. ED NOTE Observed: 04/22/2018 Status: COMPLETED Source: [place] 9:04 AM [facility] REPOSITORY HNO ID: [id number] Author: Karen Felder RN Service: Emergency Medicine Author Type: Registered Nurse Type: ED Notes Filed: 04/22/2018 9:04 AM Note Text: c-collar placed ED NOTE Observed: 04/22/2018 Status: COMPLETED Source: [place] 9:01 AM [facility] REPOSITORY HNO ID: [id number] Author: Karen Felder RN Service: Emergency Medicine Author Type: Registered Nurse Type: ED Notes Filed: 04/22/2018 9:01 AM Note Text: Blood bank, ct, Or called HEMOGRAM/DIFF Collected: 04/22/2018 Status: F Source: [facility] 8:55 AM HEALTH SYSTEM REPOSITORY TYPE CODE TESTS RESULT OUT OF REFERENCE UNITS RANGE LAB WBC(LOINC) 4.23-9.07 thou/cmm WBC High 10.23 LAB RBC(LOINC) 4.63-6.08 mil/cmm Low RBC 3.53 LAB HGB(LOINC) 13.7-17.5 g/dL Low Hgb 11.1 LAB HCT(LOINC) 40.1-51.0 % Low Hct 34.7 LAB MCV(LOINC) 83.2-95.6 fl MCV High 98.3 LAB MCH(LOINC) 25.7-32.2 pg MCH 31.4 LAB MCHC(LOINC 32.3-36.5 % ) Low MCHC 32.0 LAB RDW(LOINC) 11.6-14.4 % RDW High 15.6 LAB RDWSD(LOIN 36.1-45.8 fl C) RDW SD High 56.7 LAB PLT(LOINC) 141-365 thou/cmm Platelet 224 LAB MPV(LOINC) 8.7-12.0 fl MPV 10.4 LAB SEG(LOINC) % Seg Neutrophil 70.0 LAB IGRE(LOINC % ) Immature Grans 0.30 LAB LYMPH(LOIN % C) Lymphocyte 15.8 LAB MNO(LOINC) % Monocyte 11.1 LAB EOSIN(LOIN % C) Eosinophil 2.2 LAB BASO(LOINC % ) Basophil 0.6 LAB SEGN(LOINC 1.78-5.38 thou/cmm ) Abs. High Neut (ANC) 7.16 LAB IGAB(LOINC 0.00-0.05 thou/cmm ) Abs Immature Grans 0.03 LAB LYMN(LOINC 0.84-2.85 thou/cmm ) Abs. Lymph 1.62 LAB MONON(LOIN 0.30-0.82 thou/cmm C) Abs. High Slope 1.14 LAB EOSN(LOINC 0.04-0.54 thou/cmm ) Abs. Eosin 0.23 LAB BASON(LOIN 0.01-0.08 thou/cmm C) Abs. Baso 0.06 Performed By: #### [id number] #### [place] [address] UR/SERUM DRUG SCREEN Collected: 04/22/2018 Status: F Source: [facility] 8:55 AM HEALTH SYSTEM REPOSITORY TYPE CODE TESTS RESULT OUT OF REFERENCE UNITS RANGE LAB ACTM(LOINC 10.0-30.0 mg/L ) Serum Low Acetaminophen < 2.0 LAB SALI(LOINC 2.8-20.0 mg/dL ) Serum Salicylate Low < 1.7 LAB ALCO2(LOIN mg/dl C) Serum Alcohol < 3 Performed By: #### DRUG3 #### [place] [address] ECU TROPONIN I Collected: 04/22/2018 Status: F Source: [facility] 8:55 AM HEALTH SYSTEM REPOSITORY TYPE CODE TESTS RESULT OUT OF REFERENCE UNITS RANGE LAB ERTRP(LOINC 0.015-0.045 ng/ml ) High ECU Troponin I 0.141 Performed By: #### ERTRP #### [place] [address] TYPE AND SCREEN Collected: 04/22/2018 Status: F Source: [facility] 8:55 AM HEALTH SYSTEM REPOSITORY TYPE CODE TESTS RESULT OUT OF REFERENCE UNITS RANGE LAB ABO(LOINC) O ABO Group LAB ONLINE MARKETING MANAGER(LOINC ) RH Type Positive LAB ABSCR(LOIN C) Antibody NEGATIVE Screen LAB BBCMT(LOIN C) Comment See Below Result Comment: Screen &/or Xmatch expires in 3 days at 12 midnight. Redraw patient at that time. Performed By: #### T&S #### [place] [address] ED NOTE Observed: 04/22/2018 Status: COMPLETED Source: [place] 8:51 AM CLINIC OTHER CAMPUS REPOSITORY O ID: [id number] Author: Arcadio (Medic) Briaan Deutsch Service: (none) Author Type: Occupational Therapist'S Assistant and Coin Purse Framer Type: ED Notes Filed: 04/22/2018 8:51 AM Note Text: Bed: ED-04 Expected date: Expected time: Means of arrival: Comments: [facility] ED NOTE Observed: 04/22/2018 Status: COMPLETED Source: [place] 7:50 AM [facility] OTHER CAMPUS REPOSITORY HNO ID: [id number] Author: Moris (Rn) RAINA Trevizo Service: (none) Author Type: Registered Nurse Type: ED Notes Filed: 04/22/2018 7:51 AM Note Text: Report given to [facility]. Instruction given on Feiba infusion. Pt transported out of our facility wo incident. CT BRAIN WO IVCON Observed: 04/22/2018 Status: F Source: [place] 6:03 AM [facility] OTHER CAMPUS REPOSITORY * * *Final Report* * * DATE OF EXAM: Apr 22 2018 6:03AM [facility] 0504 - CT BRAIN WO IVCON / PROCEDURE REASON: Head trauma, headache * * * * Physician Interpretation * * * * EXAMINATION: CT BRAIN WO IVCON CLINICAL HISTORY: Head trauma, headache TECHNIQUE: Serial axial images without IV contrast were obtained from the vertex to the foramen magnum. MQ: [id number] CT Dose-Length Product (DLP): 744 mGy*cm CT Dose Reduction Employed: No dose reduction techniques were required COMPARISON: None. FINDINGS: Unremarkable posterior fossa. Senescent cerebral atrophy with moderate ex vacuo ventriculomegaly. Patchy periventricular white matter hypodensity is noted, consistent with mild chronic small vessel ischemic change. There is a focal less than 3 mm thick focus of subdural hemorrhage overlying the anteromedial left frontal lobe. There is also trace subdural hemorrhage seen along the left side of the interhemispheric falx on images 29-33, no greater than 2 mm in thickness. No current evidence of parenchymal contusion, subarachnoid hemorrhage or epidural hematoma. No acute osseous abnormality identified. Persistent metopic suture noted. Scalp contusion, left paramedian forehead/frontal scalp. Three Affiliated ocular lenses are not seen, consistent with prior bilateral cataract surgery. Punctate radiopacity within the left infraorbital facial cheek may represent age-indeterminate foreign body more likely than focal calcification. IMPRESSION: Less than 3 mm thick subdural hematomas overlying the anteromedial left frontal lobe and along the left side of the frontoparietal interhemispheric falx, respectively. No current evidence of parenchymal contusion, subarachnoid hemorrhage or epidural hematoma. No mass effect or midline shift. Soft tissue contusion, left paramedian forehead/frontal scalp. CRITICAL TEST/RESULTS: Communicated with Dr. Paez on 04/22/2018 at 0621 hours and readback occurred. Residential Carpenter: PSCB Transcribe Date/Time: Apr 22 2018 6:18A Dictated by : TONIA DASH MD This examination was interpreted and the report reviewed and electronically signed by: TONIA DASH MD on Apr 22 2018 6:29AM EST [id number] Observed: 04/22/2018 Status: F Source: [place] BLOOD CULTURE 5:46 AM CLINIC OTHER [place] REPOSITORY Culture Result - No growth 5 days Performed By: #### BLCUL #### [facility] [address] [place], [place] [address] ED NOTE Observed: 04/22/2018 Status: COMPLETED Source: [place] 5:45 AM [facility] REPOSITORY HNO ID: [id number] Author: Moris (Rn) RAINA Trevizo Service: (none) Author Type: Registered Nurse Type: ED Notes Filed: 04/22/2018 5:45 AM Note Text: 2nd set of blood cultures drawn and sent. XR CHEST 1V FRONTAL Observed: 04/22/2018 Status: F Source: [place] PORT 5:27 AM CLINIC OTHER CAMPUS REPOSITORY * * *Final Report* * * DATE OF EXAM: Apr 22 2018 5:27AM MDX [id number] - XR CHEST 1V FRONTAL PORT / PROCEDURE REASON: Chest pain or SOB, pleurisy or effusion suspected * * * * Physician Interpretation * * * * EXAMINATION: CHEST RADIOGRAPH (PORTABLE SINGLE VIEW AP) Exam Date/Time: 04/22/2018 5:27 AM Clinical History: Chest pain or SOB, pleurisy or effusion suspected MQ: XCPMC_5 Comparison: None available RESULT: See impression. IMPRESSION: Lines, tubes, and devices: Post median sternotomy and CABG. Lungs and pleura: Slightly diminished lung volumes with mild atelectasis/infiltrates in the lung bases, left greater than right. Short-term follow up with better inspiration recommended to ensure resolution. No overt pulmonary edema. Cardiomediastinal silhouette: Mildly enlarged. Other: . Residential Carpenter: SHILOH Transcribe Date/Time: Apr 22 2018 6:02A Dictated by : JIMMY SCHMIDT MD This examination was interpreted and the report reviewed and electronically signed by: JIMMY SCHMIDT MD on Apr 22 2018 6:04AM EST [id number] Collected: 04/22/2018 Status: F Source: [place] 5:15 AM [facility] REPOSITORY TYPE CODE TESTS RESULT OUT OF RANGE REFERENCE UNITS LAB UCOL Yellow Color Yellow LAB [facility] Clear Clarity Clear LAB UGLUC Negative mg/dL Glucose, Urine Negative LAB UBIL Negative Bilirubin, Urine Negative LAB UKET Negative Ketones, Abnormal Urine Trace Alert LAB USPG 1.001-1.029 Specific Twilight, Ur 1.010 LAB UHGB Negative Hemoglobin/Blood, Negative Ur LAB UPH 5.0-8.0 pH 7.5 LAB UPROT Negative mg/dL Protein, Abnormal Urine 30 Alert LAB UUROB 0.2-1.0 High Urobilinogen >7.9 LAB UNITR Negative Nitrites Negative LAB ULKEST Negative Leukest Negative Performed By: #### UA, UAMIC #### [facility] [address] [facility] [phone] URINE MICROSCOPIC Collected: 04/22/2018 Status: F Source: [place] (FOR LAB USE ONLY) 5:15 AM [facility] REPOSITORY TYPE CODE TESTS RESULT OUT OF RANGE REFERENCE UNITS LAB UWBC 0-5 /HPF WBC 0-5 LAB URBC 0-3 /HPF RBC 0-3 LAB UCAST 0 /LPF Abnormal Alert Cast SEE COMMENT Result Comment: 1-3 Hyaline Casts LAB UCRYS 0 /HPF Abnormal Alert Crystals SEE COMMENT Result Comment: Few Amorphous Performed By: #### UA, UAMIC #### [facility] [address] [place] [address] Observed: 04/22/2018 Status: F Source: [place] URINE CULTURE 5:15 AM [facility] REPOSITORY Culture Result - No growth (<100 CFU/ml) Performed By: #### URCUL #### [facility] [address] [address] ED PROV NOTE Observed: 04/22/2018 Status: COMPLETED Source: [place] 5:10 AM [facility] REPOSITORY HNO ID: [id number] Author: Grace Paez MD Service: (none) Author Type: Physician Type: ED Provider Notes Filed: 04/22/2018 6:59 AM Note Text: ED Provider Note Patient Name: Jeffrey Cullen SERVICE DATE: 04/22/18 History Patient presents with: Fall Patient presents from [facility] after fall with c/o head laceration. Found to be hypotensive by squad. Patient has trach mask with wet secretions that were suctioned on arrival. He was just transferred from [facility] to [facility] yesterday. He is s/p CABG 02/12- complicated with respiratory failure, encophalopathy, and Ecoli/klebsiella pneumonia. No past medical history on file. PAST SURGICAL HISTORY Procedure Laterality Date - ORTHOPEDICS SURGERY HX - REPAIR ING HERNIA,5+Y/O,REDUCIBL 1989 Hernia repair, inguinal,left FAMILY HISTORY Problem Relation Age of Onset - Alcohol/Drug Father - Colon Cancer Mother - Diabetes Mother Social History Social History Main Topics - Smoking status: Current Every Day Smoker Packs/day: 2.00 Years: 25.00 Types: Cigarettes - Smokeless tobacco: Not on file - Alcohol use No - Drug use: No - Sexual activity: Yes Partners: Female ALLERGIES No Known Allergies Review of Systems Unable to perform ROS: Intubated Constitutional: Negative. HENT: Negative. Eyes: Negative. Respiratory: Negative. Cardiovascular: Negative. Gastrointestinal: Negative. Genitourinary: Negative. Musculoskeletal: Negative. Skin: Negative. Neurological: Negative. Psychiatric/Behavioral: Negative. Physical Exam BP 80/51 Pulse 67 Temp (Src) 98.1 (Oral) Resp 20 Wt 210 lb (95.3kg) SpO2 91% Physical Exam Constitutional: He is oriented to person, place, and time. He appears well-developed and well-nourished. No distress. HENT: Head: Normocephalic and atraumatic. Right Ear: External ear normal. Left Ear: External ear normal. Nose: Nose normal. Mouth/Throat: Oropharynx is clear and moist. Wet upper air way sounds Eyes: Conjunctivae and EOM are normal. Pupils are equal, round, and reactive to light. Neck: Normal range of motion. Neck supple. Cardiovascular: Normal rate, regular rhythm, normal heart sounds and intact distal pulses. No murmur heard. Pulmonary/Chest: Effort normal and breath sounds normal. No stridor. No respiratory distress. He has no wheezes. He has no rales. Abdominal: Soft. He exhibits no distension. There is no tenderness. There is no rebound. Peg tube in place Musculoskeletal: Normal range of motion. He exhibits no edema or tenderness. Lymphadenopathy: He has no cervical adenopathy. Neurological: He is alert and oriented to person, place, and time. He has normal reflexes. Moves all extremities Skin: Skin is warm and dry. No rash noted. No erythema. Psychiatric: He has a normal mood and affect. His behavior is normal. Judgment and thought content normal. Nursing note and vitals reviewed. Diagnostic Testing ED Labs Ordered and Reviewed - No data to display Results for orders placed or performed during the hospital encounter of 04/22/18 COMP METABOLIC PANEL Result Value Ref Range Protein, Total 7.0 6.3 - 8.0 g/dL Albumin 3.0 (L) 3.9 - 4.9 g/dL Calcium 9.0 8.5 - 10.2 mg/dL Bilirubin, Total 0.6 0.2 - 1.3 mg/dL Alkaline Phosphatase 63 36 - 108 U/L AST 22 14 - 40 U/L Glucose 93 74 - 99 mg/dL BUN 28 (H) 9 - 24 mg/dL Creatinine 0.84 0.73 - 1.22 mg/dL Sodium 137 136 - 144 mmol/L Potassium 4.2 3.7 - 5.1 mmol/L Chloride 101 97 - 105 mmol/L CO2 24 22 - 30 mmol/L Anion Gap 12 9 - 18 mmol/L ALT 28 10 - 54 U/L eGFR- >60 eGFR-All Other Races >60 . CK TOTAL AND CK-MB Result Value Ref Range CK 148 51 - 298 U/L MB 3.7 <7.7 ng/mL CK MB % 2.5 0.0 - 4.0 % TROPONIN T Result Value Ref Range Troponin T 0.079 (H) 0.000 - 0.029 ng/mL NT PRO BNP Result Value Ref Range NT Pro BNP 5,233 (H) <125 pg/mL CBC + DIFF Result Value Ref Range WBC 11.02 (H) 3.70 - 11.00 k/uL RBC 3.77 (L) 4.20 - 6.00 m/uL Hemoglobin 11.9 (L) 13.0 - 17.0 g/dL Hematocrit 37.5 (L) 39.0 - 51.0 % MCV 99.5 80.0 - 100.0 fL MCH 31.6 26.0 - 34.0 pG MCHC 31.7 30.5 - 36.0 g/dL RDW-CV 15.5 (H) 11.5 - 15.0 % Platelet Count 257 150 - 400 k/uL MPV 10.5 9.0 - 12.7 fL Neut% 76.0 % Abs Neut (ANC) 8.37 (H) 1.45 - 7.50 k/uL Lymph% 12.3 % Abs Lymph 1.36 1.00 - 4.00 k/uL Slope% 8.2 % Abs Slope 0.90 (H) <0.87 k/uL Eosin% 2.9 % Abs Eosin 0.32 <0.46 k/uL Baso% 0.6 % Abs Baso 0.07 <0.11 k/uL URINALYSIS Result Value Ref Range Color Yellow Yellow Appearance (U) Clear Clear Glucose, Urine Negative Negative mg/dL Bilirubin, Urine Negative Negative Ketones, Urine Trace (A) Negative Specific Twilight, Ur 1.010 1.001 - 1.029 Hemoglobin/Blood,Ur Negative Negative pH, Urine 7.5 5.0 - 8.0 Protein, Urine 30 (A) Negative mg/dL Urobilinogen >7.9 (H) 0.2 - 1.0 Nitrites Negative Negative Leukest Negative Negative URINE MICROSCOPIC Result Value Ref Range WBC, Urine 0-5 0 - 5 /HPF RBC, Urine 0-3 0 - 3 /HPF Cast SEE COMMENT (A) 0 /LPF Crystal SEE COMMENT (A) 0 /HPF ARTERIAL BLOOD GAS Result Value Ref Range Blood Gas Comment, Art Date Drawn (Art) [id number] Time Drawn (Art) Sample Type BG Arterial Site ABG LR Senior Controller BG aida mejias pO2, Arterial 57.4 (L) 60.0 - 100 mmHg Methemoglobin, Arterial 0.4 0.0 - 1.5 % Carboxyhemoglobin, Arterial 1.6 0.0 - 2.5 % Lactate 0.8 0.5 - 2.2 mmol/L O2HB BG 86.3 (LL) 90.0 - 99.0 % RHb (Art) 11.7 % Base Excess, Arterial -0.2 mmol/L Bicarbonate, Arterial 22.5 22.0 - 26.0 mmol/L pCO2, Arterial 31.5 (L) 34.0 - 46.0 mmHg pH, Arterial 7.466 (H) 7.350 - 7.450 Hemoglobin Total, Whole Blood 11.8 (L) 12.0 - 16.0 g/dL Potassium, Whole Blood 3.9 3.5 - 5.0 mmol/L BG FIO2 26.0 % Allens BG Positive Date/Time Analyzed (Art) 05:25:00 Mode of O2 Delivery TRACH MASK Reported By (Art) sl Date/Time Reported (Art) 05:30:00 Drawn By: sl Notified By (Art) sl Date/Time Notified (Art) 05:30:00 Notified Whom, Arterial MAURICIO Order Item Code (Art) ABG CT BRAIN WO IVCON Final Result Abnormal IMPRESSION: Less than 3 mm thick subdural hematomas overlying the anteromedial left frontal lobe and along the left side of the frontoparietal interhemispheric falx, respectively. No current evidence of parenchymal contusion, subarachnoid hemorrhage or epidural hematoma. No mass effect or midline shift. Soft tissue contusion, left paramedian forehead/frontal scalp. CRITICAL TEST/RESULTS: Communicated with Dr. Paez on 04/22/2018 at 0621 hours and readback occurred. Residential Carpenter: SHILOH Transcribe Date/Time: Apr 22 2018 6:18A Dictated by : TONIA DASH MD This examination was interpreted and the report reviewed and electronically signed by: TONIA DASH MD on Apr 22 2018 6:29AM EST XR CHEST 1V FRONTAL PORT Final Result IMPRESSION: Lines, tubes, and devices: Post median sternotomy and CABG. Lungs and pleura: Slightly diminished lung volumes with mild atelectasis/infiltrates in the lung bases, left greater than right. Short-term follow up with better inspiration recommended to ensure resolution. No overt pulmonary edema. Cardiomediastinal silhouette: Mildly enlarged. Other: . Residential Carpenter: SHILOH Transcribe Date/Time: Apr 22 2018 6:02A Dictated by : JIMMY SCHMIDT MD This examination was interpreted and the report reviewed and electronically signed by: JIMMY SCHMIDT MD on Apr 22 2018 6:04AM EST LAC REPAIR Date/Time: 04/22/2018 5:02 AM Performed by: GRACE PAEZ Authorized by: GRACE PAEZ Consent: Consent obtained: Verbal Consent given by: Patient Risks discussed: Infection, pain, need for additional repair, poor cosmetic result and poor wound healing Alternatives discussed: No treatment Anesthesia (see MAR for exact dosages): Anesthesia method: Local infiltration Local anesthetic: Lidocaine 1% w/o epi Laceration details: Location: Face Face location: Forehead Length (cm): 1.5 Repair type: Repair type: Simple Pre-procedure details: Preparation: Patient was prepped and draped in usual sterile fashion Exploration: Hemostasis achieved with: Direct pressure Wound exploration: wound explored through full range of motion Contaminated: no Treatment: Area cleansed with: Saline Amount of cleaning: Standard Irrigation solution: Sterile saline Irrigation method: Syringe Visualized foreign bodies/material removed: no Skin repair: Repair method: Sutures Suture size: 6-0 Suture material: Nylon Suture technique: Simple interrupted Number of sutures: 4 Approximation: Approximation: Close Vermilion border: well-aligned Post-procedure details: Dressing: Non-adherent dressing Patient tolerance of procedure: Tolerated well, no immediate complications Medical Decision Making [facility] Patient with h/o afib and CAD/S/p CABG sent from rehab after fall. Found to have forehead laceration, 3 mm subdural left frontal parietal on CT, and hypotension. Laceration was repaired with #4 sutures and [facility] was contacted for transfer regarding head trauma. Patient is on eliquis and FEBA was ordered. Since he has had hypotension 1 liter NS was given. Pressures have improved. Labs, CXR, lactate, and urine were done. WBC 11.02, HGB 11.9, BNP 5,233, CXR showed atelectasis vs infiltrate in lung bases, EKG nsr with LVH with strain pattern similar to 03/15' but more pronounced, CPK 148, Trop 0.079, urinalysis was unremarkable, IV vanc and zosyn given empirically since CXR was questionable. D/w Dr. Vazquez who accepted. ED Course / Clinical Impression Clinical Impressions as of Apr 22 559 Fall, initial encounter Hypotension, unspecified hypotension type Laceration of forehead, initial encounter Multiple skin tears Plan Transferred to [facility] Condition: stable SIGNATURE: MD Grace Denton MD 04/22/18 0603 Grace Paez MD 04/22/1859 ED NOTE Observed: 04/22/2018 Status: COMPLETED Source: [place] 5:08 AM CLINIC OTHER CAMPUS REPOSITORY HNO ID: [id number] Author: Moris (Rn) Savetski, RN Service: (none) Author Type: Registered Nurse Type: ED Notes Filed: 04/22/2018 5:31 AM Note Text: Straight cath urine specimen obtained and sent. ED NOTE Observed: 04/22/2018 Status: COMPLETED Source: [place] 5:02 AM [facility] OTHER CAMPUS REPOSITORY HNO ID: [id number] Author: Moris MoodyRn) Joseline, RN Service: (none) Author Type: Registered Nurse Type: ED Notes Filed: 04/22/2018 5:02 AM Note Text: Blood cultures x1 drawn and sent. CBC AND DIFFERENTIAL Collected: 04/22/2018 Status: F Source: [place] 5:02 AM [facility] OTHER CAMPUS REPOSITORY TYPE CODE TESTS RESULT OUT OF REFERENCE UNITS RANGE LAB WBC 3.70-11.00 k/uL WBC High 11.02 LAB RBC 4.20-6.00 m/uL Low RBC 3.77 LAB HGB 13.0-17.0 g/dL Low Hemoglobin 11.9 LAB HCT 39.0-51.0 % Low Hematocrit 37.5 LAB MCV 80.0-100.0 fL MCV 99.5 LAB MCH 26.0-34.0 pG MCH 31.6 LAB MCHC 30.5-36.0 g/dL MCHC 31.7 LAB RDWCV 11.5-15.0 % RDW-CV High 15.5 LAB PLTCT 150-400 k/uL Platelet Count 257 LAB MPV 9.0-12.7 fL MPV 10.5 LAB ANEUT % Neut% 76.0 LAB AANEUT 1.45-7.50 k/uL Abs Neut High 8.37 LAB ALYMP % Lymph% 12.3 LAB AALYMP 1.00-4.00 k/uL Abs Lymph 1.36 LAB AMONO % Slope% 8.2 LAB AAMONO <0.87 k/uL Abs Slope High 0.90 LAB AEOS % Eosin% 2.9 LAB AAEOS <0.46 k/uL Abs Eosin 0.32 LAB ABASO % Baso% 0.6 LAB AABASO <0.11 k/uL Abs Baso 0.07 Performed By: #### CBCDIF, CMP #### [facility] [address] [place] [address] COMP METABOLIC PANEL Collected: 04/22/2018 Status: F Source: [place] 5:02 AM CLINIC OTHER CAMPUS REPOSITORY TYPE CODE TESTS RESULT OUT OF REFERENCE UNITS RANGE LAB TP 6.3-8.0 g/dL Protein, Total 7.0 LAB ALB 3.9-4.9 g/dL Low Albumin 3.0 LAB CA 8.5-10.2 mg/dL Calcium, Total 9.0 LAB TBIL 0.2-1.3 mg/dL Bilirubin, Total 0.6 LAB ALKP 36-108 U/L Alkaline Phosphatase 63 LAB AST 14-40 U/L AST 22 LAB GLU 74-99 mg/dL Glucose 93 Result Comment: The [place] [employer] (ADA) provides guidance for cutoff values for fasting glucose and random glucose. The ADA defines fasting as no caloric intake for at least 8 hours. Fas ting plasma glucose results between 100 to 125 mg/dL indicate increased risk for diabetes (prediabetes). Fasting plasma glucose results greater than or equal to 126 mg/dL meet the criteria for diagnosis of diabetes. In the absence of unequivocal hyperglycemia, results should be confirmed by repeat testing. In a patient with classic symptoms of hyperglycemia or hyperglycemic crisis, random plasma glucose results greater than or equal to 200 mg/dL meet the criteria for diagnosis of diabetes. Reference: Standards of Medical Care in Diabetes 2016, [place] [employer]. Diabetes Care. 2016.39(Suppl 1). LAB BUN 9-24 mg/dL BUN High 28 LAB CRET 0.73-1.22 mg/dL Creatinine 0.84 LAB NA 136-144 mmol/L Sodium 137 LAB K 3.7-5.1 mmol/L Potassium 4.2 LAB CL 97-105 mmol/L Chloride 101 LAB CO2 22-30 mmol/L CO2 24 LAB AGAP 9-18 mmol/L Anion Gap 12 LAB ALT 10-54 U/L ALT 28 LAB GFRAA eGFR- Amer. >60 LAB GFRNAA . eGFR-All Other Races >60 Result Comment: eGFR (Estimated GFR) Units of measure: mL/min/1.73 meters squared eGFR is derived from the reexpressed MDRD Study equation using the following parameters: serum creatinine, age, gender and race. The creatinine assay has been calibrated to be traceable to IDMS. An eGFR <60 mL/min/1.73m2 for >3 months is consistent with chronic kidney disease. Refer to KDOQI guidelines for clinical interpretation. In patients with unstable renal function, e.g. those with acute kidney injury, the eGFR may not accurately reflect actual GFR. Performed By: #### CBCDIF, CMP #### [facility] [address] [place] [phone] NT PRO BNP Collected: 04/22/2018 Status: F Source: [place] 5:02 [facility] [place] REPOSITORY TYPE CODE TESTS RESULT OUT OF REFERENCE UNITS RANGE LAB PBNP <125 pg/mL High PRO B Natr 5233 Peptide Performed By: #### NTBNP, CKCKMB #### [facility] [address] [place] [phone] CK, TOTAL AND CKMB Collected: 04/22/2018 Status: F Source: [place] 5:02 [facility] REPOSITORY TYPE CODE TESTS RESULT OUT OF REFERENCE UNITS RANGE LAB CK 51-298 U/L CK 148 LAB MB <7.7 ng/mL MB 3.7 LAB CKMBRI 0.0-4.0 % CK MB % 2.5 Performed By: #### NTBNP, CKCKMB #### [facility] [address] [place] [phone] TROPONIN T Collected: 04/22/2018 Status: F Source: [place] 5:02 [facility] REPOSITORY TYPE CODE TESTS RESULT OUT OF REFERENCE UNITS RANGE LAB TROPT 0.000-0.029 ng/mL High Troponin T 0.079 Result Comment: Called to and read back by: Lady [phone] 04/22/18 0625 BBlum Performed By: #### KRISTIN #### [facility] [address] [place] [address] Observed: 04/22/2018 Status: F Source: [place] BLOOD CULTURE 5:02 [facility] OTHER [place] REPOSITORY Culture Result - Bacillus species Probable contaminant. Susceptibility testing will not be performed. Call lab within 72 hours to initiate workup if clinically indicated. --> ABNORMAL ALERT (NOTE) Positive result called to and read back by: Radha Pryor [facility] 04/24/18 0602 Deep Performed By: #### BLCUL #### [facility] [address] [place], [place] [address] ED NOTE Observed: 04/22/2018 Status: COMPLETED Source: [place] 4:51 AM CLINIC OTHER CAMPUS REPOSITORY HNO ID: [id number] Author: Moris (Rn) RAINA Trevizo Service: (none) Author Type: Registered Nurse Type: ED Notes Filed: 04/22/2018 4:51 AM Note Text: Pt to ED today CC of fall face forward from a chair. Pt has lacerations and contusions to his head. BRIEF OP NOT Observed: 04/17/2018 Status: COMPLETED Source: [place] 12:51 PM CLINIC OTHER CAMPUS REPOSITORY HNO ID: [id number] Author: Elaine Sweeney Service: Radiology Author Type: Physician Type: Brief Op Note Filed: 04/17/2018 12:54 PM Note Text: INTERVENTIONAL RADIOLOGY POST PROCEDURE NOTE DATE: 04/17/18 NAME: Jeffrey Cullen LOG ID: [id number] Pre-Procedure Diagnosis: Damaged indwelling percutaneous GJ tube Post Procedure Diagnosis: Same. Senior Controller: Dr. Elaine Sweeney Procedure: Other (specify) - Fluoroscopic guided percutaneous gastrojejunostomy tube exchange Anesthesia: Local Findings: Successful fluoroscopic guided exchange, percutaneous gastrojejunostomy tube with tube tip in the proximal small bowel Estimated Blood Loss: Minimal (Less Than 25 mL). Specimen: None Complications: None Full report with procedural details to follow and will become available under Imaging Reports. Please contact for any questions or concerns. SIGNATURE: Elaine Sweeney MD PATIENT NAME: Jeffrey Cullen DATE: April 17, 2018 TIME: 12:52 PM PAGER/CONTACT #: [phone] PERC G/J TUBE Observed: 04/17/2018 Status: F Source: [facility] [id number] 12:47 PM HEALTH SYSTEM REPOSITORY Performed at [facility] APPROVED BY: ELAINE SWEENEY MD PROCEDURE: FLUOROSCOPIC GUIDED PERCUTANEOUS GASTROJEJUNOSTOMY TUBE REPLACEMENT DATE: 04/17/2018 INDICATION: Damaged indwelling percutaneous gastrojejunostomy tube. ENCOUNTER: Initial COMPARISON: Images from percutaneous gastrojejunostomy tube placement performed on 02/14/2018. TECHNIQUE: Patient was brought to the angiography suite and placed in supine position on the angiography table. The indwelling percutaneous gastrojejunostomy tube was injected with water-soluble contrast and fluo roscopic images were saved and placed in the PACS system. Stiff glidewire was advanced via the indwelling percutaneous gastrojejunostomy tube and into the proximal small bowel. The indwelling percutaneous gastrojejunostomy tube was removed, and a new 18 Frenc h, 45 cm length JONATHON percutaneous gastrojejunostomy tube was advanced over the wire with the tube tip at the proximal jejunum. Contrast was injected to confirm tube tip position and images were saved in the PACS system. No immediate complication was noted. Total Fluoroscopy Time: 0.8 minutes Fluoroscopy dose: 6 mGy FINDINGS: Successful removal and replacement of indwelling percutaneous gastrojejunostomy tube with tip within the proximal jejunum. New 18 Vietnamese, 45 cm length percutaneous gastrojejunostomy tube was placed. IMPRESSION: Successful percutaneous gastrojejunostomy tube replacement, as described. HOSP Observed: 04/17/2018 Status: COMPLETED Source: [place] 12:00 AM CLINIC OTHER CAMPUS REPOSITORY Patient:Jeffrey Cullen MRN: <[id number]> Height:5' 10.984(1.803 m) Weight:No patient weight recorded within the last 30 days. Outpatient Medications as of 04/17/18: valproic acid (DEPAKENE) 250 mg/5 mL (5 mL) solution ondansetron, PF, (ZOFRAN) 4 mg/2 mL soln atorvastatin (LIPITOR) 40 mg tablet haloperidol lactate (HALDOL) 2 mg/mL solution albuterol (PROVENTIL) 2.5 mg /3 mL (0.083 %) nebulizer solution ipratropium-albuterol (DUONEB) 0.5 mg-3 mg(2.5 mg base)/3 mL nebu metoprolol tartrate, short acting, (LOPRESSOR) 100 mg tablet diltiazem (CARDIZEM) 60 mg tablet apixaban (ELIQUIS) 5 mg tab(s) propofol infusion (DIPRIVAN) 10 mg/mL injection budesonide (PULMICORT) 0.5 mg/2 mL nebulizer solution metoclopramide HCl (REGLAN) 5 mg/mL injection polyethylene glycol 3350 (MIRALAX, GLYCOLAX) 17 gram packet senna-docusate (SENNA-S) 8.6-50 mg per tablet bisacodyl (DULCOLAX) 10 mg supp melatonin 3 mg tablet aspirin 81 mg chewable tablet 0.9% NaCl 0.9% NaCl thiamine (VITAMIN B1) 100 mg tablet Admission/Clinic Administered Medications as of 04/17/18: Patient has no admission medications. Problem List: Inguinal hernia without mention of obstruction or gangrene, unilateral or unspecified, (not specified as recurrent) [K40.90] NSTEMI (non-ST elevated myocardial infarction) ([facility]) [I21.4] NSVT (nonsustained ventricular tachycardia) ([facility]) [I47.2] Nicotine use disorder, F17.2 [F17.200] Severe protein-calorie malnutrition (HCC) [E43] Encephalopathy [G93.40] Weakness [R53.1] Acute respiratory failure with hypoxia ([facility]) [J96.01] Allergies: Allergies have not been reviewed in the past 30 days. Lab Values No results within the last 30 days for the following basenames: K,HCT No progress notes entered within the past 30 days NURSING PROG Observed: 03/13/2018 Status: COMPLETED Source: [place] 7:00 PM [facility] REPOSITORY HNO ID: [id number] Author: Darcy (Rn) RAINA Oleary Service: Nursing Author Type: Registered Nurse Type: Nursing Progress Note Filed: 03/13/2018 7:25 PM Note Text: Pt. Transferred to [facility] via [facility] NURSING PROG Observed: 03/13/2018 Status: COMPLETED Source: [place] 5:43 PM [facility] REPOSITORY HNO ID: [id number] Author: Darcy (Rn) RAINA Oleary Service: Nursing Author Type: Registered Nurse Type: Nursing Progress Note Filed: 03/13/2018 5:44 PM Note Text: Attempted to call report to select x 2. 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 Will attempt again prior to transfer out. PROGRESS Observed: 03/13/2018 Status: COMPLETED Source: [place] 5:21 PM [facility] REPOSITORY HNO ID: [id number] Author: Deshaun Lofton Service: Critical Care Author Type: Physician Type: Progress Notes Filed: 03/13/2018 5:45 PM Note Text: Notes and meds reviewed. Full ROS with RN. No ROS with pt possible. A/w transfer to LTACH today. No new issues. On exam: 118/79, 88, 19, 37, 97% on vent PRVC 550/ 16/ 40%/ 5 On sedation; NAD Eyes closed; does not follow commands; moves lower ext spontaneously; some movement in uppers Trach and PEG in place RRR CTA B Soft, NT, BS present No pedal edema or cyanosis or clubbing IO 3.2/ 2.1 Data: WCC 5.3, Hb 9.7, plt 189 Na 141, K 3.8, Cl 106, HCO3 31, BUN 25, Cr 0.5 CXR from 03/10 reviewed and shows left basilar atelectasis and a small effusion Impression: Mr Cullen is a 67 year old white gentleman with PMH significant for ex-heavy smoker (60 pack years) admitted on 02/07 for chest pain and then found to have NSTEMI/ CAD has had prolonged and complicated hospital course. 1. Acute to chronic hypoxic respiratory failure 2. Severe ongoing encephalopathy 3. Sepsis 4. Klebsiella and enterobacter bacteremia 5. PAF now on SR 6. S/p CABG POD 32 7. Ex-heavy smoker 8. Anemia 9. UE weakness of unclear etiology - ?critical illness neuropathy/ myopathy 10. DVT Recs: - wean sedation as tolerated - vent support - Abx per ID - appreciate neuro inputs - supportive care - ?OP EMG - okay for transfer to LTACH today - our group will follow him there Code status: full PROGNOSIS: Guarded Patient/Family Updated: no family at the bedside PATIENT CHECKLIST Are restraints necessary: Yes. Order written? Yes Deep vein thrombosis prophylaxis administered? Yes Stress ulcer prophylaxis? Yes High catheter necessary? Yes Is central line essential? Yes Discussed with RN and pharm D. This patient has a high probability of sudden, clinically significant deterioration, which requires the highest level of physician preparedness to intervene urgently. I managed/supervised life or organ supporting interventions that required frequent physician assessment. I devoted my full attention to the direct care of this patient for the amount of time indicated below. Time I spent with family or surrogate(s) is included only if the patient was incapable of providing the necessary information or participating in medical decision making. Time devoted to teaching and to any procedures I billed separately is not included. Critical Care Documentation: The patient has the following organ/system impairment(s): Encephalopathy, Respiratory failure (Chronic, with Hypoxemia) and severe sepsis Time spent providing critical care services: 35 minutes. SIGNATURE: Deshaun Lofton MD [facility] PAGER:[phone] PROGRESS Observed: 03/13/2018 Status: COMPLETED Source: [place] 4:38 PM CLINIC OTHER CAMPUS REPOSITORY HNO ID: [id number] Author: Yanira Garcia (Pharmacist) Service: Pharmacy Author Type: Pharmacist Type: Progress Notes Filed: 03/13/2018 4:43 PM Note Text: DISCHARGE MEDICATION REVIEW BY PHARMACY Patient Name: Jeffrey Cullen Account #: Data Unavailable Admission Date: 02/07/2018 Date of Contact: March 13, 2018 Time of Contact: 4:39 PM Medication list was reviewed by a Pharmacist for drug interactions or drug related problems:Yes Below is a summary of pharmacist recommendations discussed with LIP: No Recommendations at this time from Discharge Medication List. *Interactions: Haldol-Reglan: both are PRN Haldol-Zofran: both are PRN CTX- Calcium chloride: low risk Propofol-Haldol: low risk *Recent changes: Haldol decreased to PRN over weekend. Propofol use does not look to have changed significantly since this change (is varying from 20 to 40 mcg/kg/minute). Continue PRN Haldol. *No regular medications prior to admission. YANIRA GARCIA, PHARMACIST March 13, 2018 4:39 PM Pager: [phone]; [facility] [phone] 03/13/2018 4:39 PM Medication List START taking these medications * 0.9% NaCl Inject 10 mL intravenously every 12 hours. * 0.9% NaCl Inject 20 mL intravenously as needed (FLUSH WITH 20 ML OF 0.9% SODIUM CHLORIDE AFTER EACH BLOOD DRAW.). albuterol 2.5 mg /3 mL (0.083 %) nebulizer solution Commonly known as: PROVENTIL Use 3 mL via nebulizer every 2 hours as needed for Wheezing/Shortness of Breath. apixaban 5 mg tab(s) Commonly known as: ELIQUIS Take 1 tablet by mouth twice daily. aspirin 81 mg chewable tablet Take 1 tablet by mouth once daily. Start taking on: 03/14/2018 atorvastatin 40 mg tablet Commonly known as: LIPITOR Take 1 tablet by mouth daily at bedtime. bisacodyl 10 mg Supp Commonly known as: DULCOLAX 1 Suppository by RECTAL route once daily as needed (If now bowel movement by POD#5). budesonide 0.5 mg/2 mL nebulizer solution Commonly known as: PULMICORT Use 4 mL via nebulizer twice daily. cefTRIAXone 2 gram/50 mL in dextrose (iso-osmotic) Commonly known as: ROCEPHIN Inject 50 mL intravenously every 24 hours for 12 days. diltiazem 60 mg tablet Commonly known as: CARDIZEM 1 tablet by NASOGASTRIC route every 6 hours. fentaNYL 50 mcg/mL Soln Commonly known as: SUBLIMAZE Inject 1 mL intravenously every 8 hours as needed (or tachypnea with ventilator) for up to 1 day. haloperidol lactate 2 mg/mL solution Commonly known as: HALDOL Take 2.5 mL by mouth every 6 hours as needed. ipratropium-albuterol 0.5 mg-3 mg(2.5 mg base)/3 mL Nebu Commonly known as: DUONEB Inhale 3 mL as instructed four times daily. melatonin 3 mg tablet Take 2 tablets by mouth daily at bedtime. metoclopramide HCl 5 mg/mL injection Commonly known as: REGLAN Inject 10 mg intravenously every 6 hours as needed. metoprolol tartrate (short acting) 100 mg tablet Commonly known as: LOPRESSOR Take 1 tablet by mouth every 8 hours. ondansetron (PF) 4 mg/2 mL Soln Commonly known as: ZOFRAN Inject 4 mg intravenously every 6 hours as needed. polyethylene glycol 3350 17 gram packet Commonly known as: MIRALAX, GLYCOLAX Take 1 Packet by mouth once daily. Start taking on: 03/14/2018 propofol infusion 10 mg/mL injection Commonly known as: DIPRIVAN Inject 1.091-5.455 mg/min intravenously continuous. senna-docusate 8.6-50 mg per tablet Commonly known as: SENNA-S Take 1 tablet by mouth twice daily. thiamine 100 mg tablet Commonly known as: VITAMIN B1 Take 1 tablet by mouth once daily. Start taking on: 03/14/2018 valproic acid 250 mg/5 mL (5 mL) solution Commonly known as: DEPAKENE Take 10 mL by mouth every 8 hours. * Notice: This list has 2 medication(s) that are the same as other medications prescribed for you. Read the directions carefully, and ask your doctor or other care provider to review them with you. STOP taking these medications VICOPROFEN 7.5-200 mg per tablet Generic drug: HYDROcodone-Ibuprofen Where to Get Your Medications Information about where to get these medications is not yet available ! Ask your nurse or doctor about these medications - 0.9% NaCl - 0.9% NaCl - albuterol 2.5 mg /3 mL (0.083 %) nebulizer solution - apixaban 5 mg tab(s) - aspirin 81 mg chewable tablet - atorvastatin 40 mg tablet - bisacodyl 10 mg Supp - budesonide 0.5 mg/2 mL nebulizer solution - cefTRIAXone 2 gram/50 mL in dextrose (iso-osmotic) - diltiazem 60 mg tablet - fentaNYL 50 mcg/mL Soln - haloperidol lactate 2 mg/mL solution - ipratropium-albuterol 0.5 mg-3 mg(2.5 mg base)/3 mL Nebu - melatonin 3 mg tablet - metoclopramide HCl 5 mg/mL injection - metoprolol tartrate (short acting) 100 mg tablet - ondansetron (PF) 4 mg/2 mL Soln - polyethylene glycol 3350 17 gram packet - propofol infusion 10 mg/mL injection - senna-docusate 8.6-50 mg per tablet - thiamine 100 mg tablet - valproic acid 250 mg/5 mL (5 mL) solution CNDS Observed: 03/13/2018 Status: COMPLETED Source: [place] 4:32 PM CLINIC OTHER CAMPUS REPOSITORY HNO ID: [id number] Author: Beata Marin Service: Cardiovascular Surgery Author Type: Physician Type: Discharge Summaries Filed: 03/14/2018 11:56 AM Note Text: DISCHARGE SUMMARY PATIENT NAME: Jeffrey Cullen Admission Information Admission Information ADMIT DATE: 02/07/2018 DISCHARGE DATE: 03/13/2018 MY DOCTORS AND MEDICAL TEAM: [facility] Main [facility] Doctor: Beata Marin Primary Care Provider: Richie De La Torre DO My Medical Team Members: Treatment Team: Attending Provider: Beata Marin Consulting: Juan Cabral Consulting: Omer Watts Consulting: Beata Marin Consulting: Elkin Zuleta Consulting: Jay Brice Consulting: Christofer Barajas Consulting: Elaine Sweeney Consulting: Melissa Camacho Jr. Consulting: Joanna Carrera MY CONDITION AT DISCHARGE: Fair REASON I WAS IN THE HOSPITAL: CP SUMMARY OF WHAT HAPPENED WHILE I WAS IN THE HOSPITAL: Patient is 67 yo male with history of 2ppd smoker, found to have NSTEMI with severe triple vessel CAD and EF 45%. Underwent CABGx3 on 02/09/18. Major postoperative complications include acute prolonged hypercapneic and hypoxic respiratory failure requiring eventual tracheostomy, and acute persistent metabolic toxic encephalopathy, which has posed as a barrier to liberation from the vent. Extensive workup was done to evaluate his encephalopathy from neurology, pulmonary, and ID services. MRI brain, C-spine, T-spine, EEG, and LP were all negative. Pt requires propofol for sedation for severe agitation, on valproic acid for encephalopathy, as well as Haldol PRN. Benzos, seroquel, and precedex have all been trialed without success in calming agitation or restlessness, and are now being avoided. He was treated for Klebsiella and E. Coli PNA. He developed paroxysmal atrial fibrillation which is controlled with metoprolol and Cardizem, and anticoagulated on Eliquis. Currently, he is on Ceftriaxone for Klebsiella bacteremia likely due to PICC line; antibiotic should continue through 03/25/18, which is 2 weeks after PICC line was removed. He is on tube feeding through G-J tube. Medically stable for discharge to [facility] for further treatment. Neuro recommends EMG and NCS as an outpatient for unexplained bilateral upper extremity weakness/pain. OTHER PROBLEMS/DIAGNOSIS: Problems: NSTEMI (non-ST elevated myocardial infarction) (HCC) Acute Prolonged Hypercapneic and Hypoxic Respiratory Failure Paroxysmal Atrial Fibrillation Klebsiella bacteremia COPD Nicotine use disorder, F17.2 Severe protein-calorie malnutrition (HCC) Acute Persistent Metabolic Toxic Encephalopathy Weakness Resolved Problems: Klebsiella and E. Coli Pneumonia NSVT (nonsustained ventricular tachycardia) OPERATIONS PERFORMED WHILE IN THE HOSPITAL: CABGx3 IMPORTANT TEST/PROCEDURES: Echocardiogram, Heart Catheterization, MRI brain, MRI C-spine AND T-spine, EEG, LP, CT chest/abdomen/pelvis TEST RESULTS NOT AVAILABLE AT THIS TIME: No pending results Discharge Disposition Discharge Disposition: [facility] Wound/Surgical Site Care Wash your hands frequently, especially before touching your incision, after using restroom and before eating Call Your Doctor If Other: Shortness of breath, chest pain, weight gain, swelling of legs There is an unusual odor from the wound area There is severe pain at the operative site You have lightheadedness, fainting, or confusion You have redness, swelling, pus or drainage from the wound Your temperature is greater than 101F Follow Up Appointments Follow-Up Appointment [facility] thru [facility] and take the silver elevator to the 3rd floor. The office is immediately on the right. When: In: Comment - once discharged from [facility] Patient/Parents to call for appointment?: Yes Beata Marin [phone] [address] [facility] [address] [facility] [id number] PCP Requested Referral Follow-Up Appointment With: Program Instructor Dr. Cabral When: In: Comment - once discharged from [facility] Patient/Parents to call for appointment?: Yes Call [phone] to schedule. Additional Provider to Provider Information: EMG and NCS are recommended to be completed as an outpatient FOLLOW-UP APPOINTMENTS ALREADY SCHEDULED WITH A [facility] PROVIDER: No future appointments. DISCHARGE MEDICATION: Current Discharge Medication List START taking these medications valproic acid (DEPAKENE) 500 mg Take 500 mg by mouth every 8 hours. ondansetron (PF) (ZOFRAN) 4 mg Inject 4 mg intravenously every 6 hours as needed. atorvastatin (LIPITOR) 40 mg Take 40 mg by mouth daily at bedtime. haloperidol lactate (HALDOL) 5 mg Take 5 mg by mouth every 6 hours as needed. albuterol (PROVENTIL) 2.5 mg Use 2.5 mg via nebulizer every 2 hours as needed for Wheezing/Shortness of Breath. ipratropium-albuterol (DUONEB) 3 mL Inhale 3 mL as instructed four times daily. metoprolol tartrate (short acting) (LOPRESSOR) 100 mg Take 100 mg by mouth every 8 hours. diltiazem (CARDIZEM) 60 mg 60 mg by NASOGASTRIC route every 6 hours. cefTRIAXone (ROCEPHIN) 2 g Inject 2 g intravenously every 24 hours. Qty: 600 mL Refills: 0 apixaban (ELIQUIS) 5 mg Take 5 mg by mouth twice daily. propofol infusion (DIPRIVAN) 1.091-5.455 mg/min Inject 1.091-5.455 mg/min intravenously continuous. budesonide (PULMICORT) 1 mg Use 1 mg via nebulizer twice daily. metoclopramide HCl (REGLAN) 10 mg Inject 10 mg intravenously every 6 hours as needed. polyethylene glycol 3350 (MIRALAX, GLYCOLAX) 17 g Take 17 g by mouth once daily. senna-docusate (SENNA-S) 1 tablet Take 1 tablet by mouth twice daily. bisacodyl (DULCOLAX) 10 mg 10 mg by RECTAL route once daily as needed (If now bowel movement by POD#5). melatonin 6 mg Take 6 mg by mouth daily at bedtime. aspirin 81 mg Take 81 mg by mouth once daily. !! 0.9% NaCl 10 mL Inject 10 mL intravenously every 12 hours. !! 0.9% NaCl 20 mL Inject 20 mL intravenously as needed (FLUSH WITH 20 ML OF 0.9% SODIUM CHLORIDE AFTER EACH BLOOD DRAW.). thiamine (VITAMIN B1) 100 mg Take 100 mg by mouth once daily. fentaNYL (SUBLIMAZE) 50 mcg Inject 50 mcg intravenously every 8 hours as needed (or tachypnea with ventilator). Earliest Fill Date: 03/13/18 Associated Diagnoses:Limb weakness; Bacteremia due to Klebsiella pneumoniae !! - Potential duplicate medications found. Please discuss with provider. STOP taking these medications hydrocodone/ibuprofen(VICOPROFEN 7.5 MG-200 MG TAB) Comments: Reason for Stopping: TIME OF CARE: Discharge Management: I personally spent greater than 30 minutes involved in the discharge management of this patient. SIGNATURE: Clementine Owen APRN.[facility] PAGER/CONTACT #: [phone] DATE: March 13, 2018 TIME: 4:32 PM CASE MANAGEM Observed: 03/13/2018 Status: COMPLETED Source: [place] 4:23 PM CLINIC OTHER CAMPUS REPOSITORY O ID: [id number] Author: Ale (Raina) RAINA Key Service: (none) Author Type: Registered Nurse Type: Care Mgt Progress Note Filed: 03/13/2018 4:28 PM Note Text: CARE MANAGEMENT PROGRESS NOTE SERVICE DATE: 03/13/2018 SERVICE TIME: 4:23 PM LOS: 34 days Needs Prior to Discharge: Discharge Prescriptions;Transportation to Appointments Orders faxed into allr for [facility]. Rosamaria at [facility] aware ready for dsc No provided to nsg to call report. Transport on for 6 pm I spoke with Dr. Ojeda re neuro rec'd emg/ncs--but never ordered Can be done as op per him. SIster aware of transfer SIGNATURE: Ale Key RN PATIENT NAME: Jeffrey Cullen DATE: March 13, 2018 TIME: 4:23 PM PAGER/CONTACT #: [phone] PROGRESS Observed: 03/13/2018 Status: COMPLETED Source: [place] 2:52 PM CLINIC OTHER CAMPUS REPOSITORY HNO ID: [id number] Author: Juan Carrera Service: Infectious Disease Author Type: Physician Type: Progress Notes Filed: 03/13/2018 2:53 PM Note Text: Day 2 atb after line out; day 3.5 whitney Chg whitney to trx for kleb resist to amp; [place] THRU 03/25 HERE OR [facility] Juan Carrera MD 03/13/2018 2:53 PM pgr [phone] PROGRESS Observed: 03/13/2018 Status: COMPLETED Source: [place] 1:06 PM CLINIC OTHER CAMPUS REPOSITORY HNO ID: [id number] Author: Clementine Owen Service: Cardiovascular Surgery Author Type: Nurse Practitioner Type: Progress Notes Filed: 03/13/2018 4:32 PM Note Text: CARDIOTHORACIC SURGERY POSTOP PROGRESS NOTE SERVICE DATE: 03/13/2018 SERVICE TIME: 1:06 PM Subjective LOS: 34 INTERVAL EVENTS / PERTINENT ROS: Spoke with ID and social work, who are ok with pt transfer to [facility] today. Awaiting Neuro input re: EMG and NCS that were recommended. No new events overnight. Objective Admission Weight: 104.3 kg (229 lb 15 oz) BP 86/60 Pulse 76 Temp 36 ?C (96.8 ?F) Resp 16 Ht 180.3 cm (5' 10.98) Wt 98.7 kg (217 lb 9.5 oz) SpO2 98% BMI 30.36 kg/m2 Body surface area is 2.22 meters squared. Min/Max/Average Temperature AND Blood Pressure: Temp (24hrs), Av.4 ?C (97.5 ?F), Min:35.6 ?C (96.1 ?F), Max:37.1 ?C (98.8 ?F) Systolic (24hrs), Av , Min:86 , Max:130 Diastolic (24hrs), Av, Min:59, Max:104 Intake/Output Summary (Last 24 hours) at 03/13/18 1306 Last data filed at 03/13/18 0800 Gross per 24 hour Intake 3155 ml Output 1907 ml Net 1248 ml TELEMETRY: normal sinus rhythm PHYSICAL EXAM: General Appearance: no distress and sedated on vent Skin: Midsternal incision dry AND intact. and SVG incisions dry AND intact. Lungs: decreased breath sounds and respiratory effort: normal Heart: regular rhythm and S1, S2 normal Lines, Drains, and Airways Line Peripheral 03/11/18 1040 Short Right Hand 18 Gauge 2 days Peripheral 03/11/18 1044 Short Right Forearm 18 Gauge 2 days Drain Indwelling Urinary Catheter 02/09/18 0838 Temperature Monitoring 16 Fr 32 days GI Feed/Drain 02/22/18 1336 Gastrostomy-Jejunostomy (G-J) Abdomen 18 Fr 18 days Airway Airway Tracheostomy 02/22/18 19 days DATA: Diagnostic tests reviewed for today's visit: Recent Labs 03/13/18 0430 03/12/18 0515 03/11/18 0455 RBC 3.12* 3.12* 2.90* WBC 5.35 5.51 5.59 HB 9.7* 9.8* 9.3* HCT 29.9* 29.7* 28.1* PLT 189 176 154 NA 141 139 137 K 3.8 4.1 3.4* CHLOR 106 105 103 CO2 31 30 28 BUN 25* 29* 31* CREAT 0.55* 0.65* 0.76 GLUC 115* 104* 111* CA 8.2* 8.2* 7.8* ANION 8 8 9 Assessment/Plan Acute NSTEMI s/p CABG x 3 -POD#32 -c/w ASA, statin, BB -post op ECHO showed EF 40% ?? Acute hypoxic AND hypercapneic respiratory failure 2/2 severe COPD -s/p tracheostomy -Vent wean per ICU team ?? Paroxysmal Afib/Aflutter -NSR currently -c/w Metoprolol AND Diltiazem -c/w Eliquis for OAC ?? Acute encephalopathy -Neuro AND ID following -Per ID, LP negative for infection -Possibly related to klebsiella bacteremia; however encephalopathy has been persistent since immediately post op. -Neuro recs EMG and NCS; await results of those tests for questionable UE weakness. Unsure if this is related to encephalopathy or if this will change our plan of care. -c/w Valproic acid per neuro; attempt to wean propofol; haldol PRN; avoid benzos. ?? Klebsiella bacteremia -Possible source is the PICC line. -PICC was removed on 03/11 -Per ID, will switch from meropenum to ceftriaxone 2gm q24h and continue thru 03/25/18. ? DVT ppx -Eliquis and SCDs Dispo: to [facility] when ok with all services. Medically stable at this time. Progress note from care management noted; family aware of transfer to [facility]. Statement of expert eval completed per Dr. Marin and social work updated. SIGNATURE: Clementine Owen APRN.CNP PATIENT NAME: Jeffrey Cullen DATE: March 13, 2018 TIME: 1:06 PM PAGER/CONTACT #: [phone] ETX [id number] CASE MANAGEM Observed: 03/13/2018 Status: COMPLETED Source: [place] 11:29 AM [facility] OTHER [place] REPOSITORY HNO ID: [id number] Author: Ale Johnson) RAINA Key Service: (none) Author Type: Registered Nurse Type: Care Mgt Progress Note Filed: 03/13/2018 12:57 PM Note Text: CARE MANAGEMENT PROGRESS NOTE SERVICE DATE: 03/13/2018 SERVICE TIME: 11:29 AM LOS: 34 days Needs Prior to Discharge: Discharge Prescriptions;Transportation to Appointments Pt remains on iv diprovan, vent with trach. Met with sister Trev in room this am after supervisor commissary production had spoken with her and have informed card surg accounts receivable manager of need for competency eval to assist with pursuit of guardianship. Sister is leaving today for [place]. She is agreeable to [facility] and is ok with transfer today if pt is ready since she will be in flight will just leave message of time if happens today. Await orders for dsch. [place] LINE ATTENDANT to discuss with ID, neuro and surgeon. Did also speak with Mami at [facility]. * per social work physician following patient may complete competency paperwork and [place] LINE ATTENDANT is aware SIGNATURE: Ale Key RN PATIENT NAME: Jeffrey Cullen DATE: March 13, 2018 TIME: 11:29 AM PAGER/CONTACT #: [phone] SOCIAL WORK Observed: 03/13/2018 Status: COMPLETED Source: [place] 9:49 AM CLINIC OTHER [place] REPOSITORY HNO ID: [id number] Author: Alexa Cortez (Sw) Service: Social Work Author Type: Tool Rental Technician Type: Social Work Filed: 03/13/2018 2:48 PM Note Text: SOCIAL WORK CONSULT NOTE SERVICE DATE: 03/13/2018 SERVICE TIME: 9:49 AM Referred by: Nurse Reason for visit: Guardianship - Probate Court: [facility] Living Arrangement: Home Lives With: Alone Financial Resources: Retired Primary Contact: Extended Emergency Contact Information Primary Emergency Contact: Trev Carmen Mobile Relation: Sister Supportive: Yes Other Important Patient Contacts: None Health Insurance: Medicare Jeffrey Cullen is a 67 year old male who was referred by RN re: guardianship. Met with pt's sister, Trev Carmen who indicates she consulted with getter filler Lei Kay and wishes to file for guardianship of pt. Sister plans to return to [facility]. today. Pt resides in [facility]. Request psychology be consulted for capacity evaluation. Will place Statement of Expert Eval from [facility] in chart. Addendum: 2:45 pm Appreciate PUBLIC ADDRESS SERVICER, Clementine and completing and signing Statement of Expert Eval. Spoke with getter filler, Joanna Zamora and per his request, will fax Statement of Expert eval to him and mail him the original. Outcome/Recommendations: Probate Court Time spent (minutes): 30 SIGNATURE: VANESSA Hernandez PATIENT NAME: Jeffrey Cullen DATE: March 13, 2018 TIME: 9:49 AM PAGER/CONTACT#: [phone] NUTRITION Observed: 03/13/2018 Status: COMPLETED Source: [place] 9:44 AM CLINIC OTHER CAMPUS REPOSITORY O ID: [id number] Author: Sandra Almaguer RD Service: Nutrition Therapy Author Type: Registered Dietitian Type: Nutrition Filed: 03/13/2018 1:54 PM Note Text: NUTRITION THERAPY REASSESSMENT SERVICE DATE: 03/13/2018 SERVICE TIME: 9:44 AM RECOMMENDED MALNUTRITION DIAGNOSIS: SEVERE PROTEIN-CALORIE MALNUTRITION In the context of Chronic Illness or Injury based on: Unintentional Weight Loss: >5% over 1 month Muscle Loss Severe Loss NUTRITION CARE PLAN: Problem, Etiology and Signs/Symptoms: Suboptimal oral intake related to respiratory status, unable to eat by mouth as evidenced by NPO, tube feeding and vent via trach. Intervention: Impact Peptide at goal rate 56 ml/hr to provide via PEG-J tube 1344 ml product - 2016 kcal, 126.3 gm protein, and 1034.9 ml free water. Flush at 200 ml 6 times per day. (Fluid volume with TF over 24 hours - 2234 ml) Propofol at 19.64 mL/hr providing 519.5 kcal per day, will need to Coordination of Care: Nursing Monitor and Evaluation: Goal: Meet >75% of estimated needs Monitor fluid/electrolyte balance Monitor labs, I/Os, vital signs, weight Monitor tolerance to tube feeding Discharge Nutrition Recommendations: Enteral/Tube feeding: Impact Peptide at 56 mL/hr, flush with 200 mL 6 times per day. Chart reviewed for follow-up from tube feeding Per HPI: 67 year old male patient with no known PMH other than long history of smoking ( 2packs a day for more than 30 years) Earlier 02/07/18?he was sitting and suddenly started having substernal chest pain, pain is intermittent with no radiation, he felt nauseas but no vomiting and no diaphoresis.This pain kept coming so he went to the ER. Underwent LHC on 02/08/18 showed need for CABG, underwent CABG on 02/09/18. Chest tubed pulled 02/11. ?Remains on vent support. ?Noted residuals and tube feeding held at present. ?Started on Reglan daily from PRN. ?02/16/18 Patient remains intubated this AM. No significant residuals noted greater than 100 cc. Toleration of tube feeding improving. ?02/20/18 :?Remains on vent support, tube feeding held at present for residual 280 ml. ?PICC placed on 02/17. ?Noted plan for trach and PEJ, if unable to extubate soon. ?Met with RN reports residual decreasing with plans to restart TF. ?BM 02/16. 03/09/08: MRI completed 03/08. Remains on vent and tube feeding. BM 03/04/18. Plan for [facility] at transfer. Neurology following. ID requested to re-assess. Interval History: Awaiting transfer to [facility]. Continues on TF and vent support with trach. BM 03/11. Tube feeding held 03/07-03/08 for MRI and 03/10 for lumbar puncture. ACTIVE PROBLEM LIST Inguinal Hernia Without Mention of Obstruction Or Gangrene, Unilateral Or Unspecified, (Not Specified As Recurrent) Nstemi (Non-St Elevated Myocardial Infarction) (Hcc) Nsvt (Nonsustained Ventricular Tachycardia) (Hcc) Nicotine use disorder, F17.2 Malnutrition of Moderate Degree (Hcc) Encephalopathy Weakness No past medical history on file. PAST SURGICAL HISTORY Procedure Laterality Date - ORTHOPEDICS SURGERY HX - REPAIR ING HERNIA,5+Y/O,REDUCIBL 1989 Hernia repair, inguinal,left Present Diet Order: NPO and Tube Feeding Impact Peptide at 56 mL/hr and flush 200 mL 6 times per day. Nutritional Intake: >75% estimated energy needs over the past 18 day(s), noted tube feeding held for 03/07-03/08 for MRI and 03/10 for lumbar puncture. Has been tolerating tube feeding since placement of PEG-J tube. Propofol has been consistent with providing additional lipid kcal. GI symptoms: unable to determine at this time Abdominal Exam: abdomen is nondistended and bowel sounds are normal, per clinical documentation Is the patient having any pain that is interfering with oral/enteral intake? Unable to assess ANTHROPOMETRICS Height: 180.3 cm (5' 10.98) Admission Weight: 104.3 kg (229 lb 15 oz) Current Weight: 98.7 kg (217 lb 9.5 oz) Body mass index is 30.36 kg/(m2). class 1 obesity Weight has decreased by 5.6 kg over 1 months representing 5.4 % weight change. Clinically significant Last Wt 03/11/18 : 98.7 kg (217 lb 9.5 oz) 02/07/18 : 104.3 kg (230 lb) 12/04/07 : 100.2 kg (221 lb) [place] Body Weight: 78.2kg Resting Metabolic Rate: 1783 Estimated kilocalorie needs: 2153-3330 kilocalories determined by 25-30 kcal/kg ideal body weight Estimated protein needs: 103-133 grams determined by 1.3-1.7 g/kg [place] weight Estimated fluid needs: 5621-6227 milliliters based on 1 mL per kcal NUTRITION FOCUSED PHYSICAL EXAM: Unable to complete through physical exam due to positioning in bed with restraints Subcutaneous Fat Loss Orbital Mild Triceps Unable to determine at this time Mid-axillary at the iliac crest Unable to determine at this time Muscle Loss Locations: Temporalis Severe Pectoralis No muscle loss Deltoids No muscle loss Interosseous No muscle loss Latissimus dorsi, trapezius Unable to determine at this time Quadriceps Unable to determine at this time Gastrocnemius Unable to determine at this time Potential micronutrient deficiency revealed in: Unable to determine at this time Edema: Yes Lower extremities Mild 1+ and Generalized Ascites: No Assessment of Functional Status: Functional capacity is unrelated to nutrition status Temperature Max in 24 hours: Temp (24hrs), Av.4 ?C (97.6 ?F), Min:35.6 ?C (96.1 ?F), Max:37.1 ?C (98.8 ?F) BP 86/60 Pulse 76 Temp (!) 35.6 ?C (96.1 ?F) Resp 16 Ht 180.3 cm (5' 10.98) Wt 98.7 kg (217 lb 9.5 oz) SpO2 98% BMI 30.36 kg/m2 Recent Labs 03/13/18 0430 03/10/18 1200 GLUC 115* < > 110* BUN 25* < > 30* CREAT 0.55* < > 0.92 NA 141 < > 139 K 3.8 < > 3.6 CHLOR 106 < > 102 CO2 31 < > 29 ALB -- -- 2.1* HB 9.7* < > 10.2* HCT 29.9* < > 31.9* WBC 5.35 < > 8.25 < > = values in this interval not displayed. Potential Signs of Inflammation: hyperglycemia and hypoalbuminemia ALLERGIES No Known Allergies Current Facility-Administered Medications: haloperidol lactate 5 mg oral liquid (HALDOL) 5 mg ORAL q 6 H PRN meropenem 1 g in sterile water 20 mL (MERREM) 1 g INTRAVENOUS q 8 H apixaban 5 mg tab(s) (ELIQUIS) 5 mg ORAL BID dilTIAZem 100 mg in D5W 100 mL ADD-Boy[place] (CARDIZEM) 5-15 mg/hr INTRAVENOUS CONTINUOUS diltiazem 60 mg tab(s) (CARDIZEM) 60 mg NASOGASTRIC q 6 H propofol infusion (DIPRIVAN) 10-50 mcg/kg/min INTRAVENOUS CONTINUOUS valproic acid 500 mg CUP (DEPAKENE) 500 mg ORAL q 8 H thiamine 100 mg tab(s) (VITAMIN B1) 100 mg ORAL DAILY melatonin 6 mg tab(s) 6 mg ORAL AT BEDTIME pantoprazole 40 mg injection (PROTONIX) 40 mg INTRAVENOUS DAILY (6 AM) metoclopramide HCl 10 mg injection (REGLAN) 10 mg INTRAVENOUS q 6 H PRN fentaNYL 50 mcg/mL 50 mcg injection (SUBLIMAZE) 50 mcg INTRAVENOUS q 2 H PRN ipratropium-albuterol 3 mL nebulizer solution (DUONEB) 3 mL INHALATION QID aspirin 81 mg chewable tab(s) 81 mg ORAL DAILY metoprolol tartrate (short acting) 100 mg tab(s) (LOPRESSOR) 100 mg ORAL q 8 H 0.9% NaCl 20 mL 20 mL INTRAVENOUS PRN 0.9% NaCl 10 mL 10 mL INTRAVENOUS q 12 H bisacodyl 10 mg suppository (DULCOLAX) 10 mg RECTAL DAILY PRN polyethylene glycol 3350 17 g packet (MIRALAX, GLYCOLAX) 17 g ORAL DAILY senna-docusate 8.6-50 mg 1 tablet (SENNA-S) 1 tablet ORAL BID pill splitter (patient-specific) 1 Each Miscell. (Med.Supl.;Non- Drugs) PRN Chlorhexidine Gluconate 0.12 % 15 mL (PERIDEX) 15 mL ORAL q 12 H budesonide 0.5 mg/2 mL 1 mg (PULMICORT) 1 mg INHALATION BID acetaminophen 650 mg tab(s) (TYLENOL) 650 mg ORAL q 6 H PRN potassium chloride iv piggyback 20 mEq in sterile water 100 mL 20 mEq INTRAVENOUS PRN magnesium sulfate in water 2 g in sterile water 50 ml 2 g INTRAVENOUS PRN(NO DISPENSE) albuterol 2.5 mg /3 mL (0.083 %) 2.5 mg (PROVENTIL) 2.5 mg INHALATION q 2 H PRN calcium chloride 1 g in D5W 100 mL 1 g INTRAVENOUS PRN(NO DISPENSE) oxyCODONE-acetaminophen 5-325 mg 1-2 tablet (PERCOCET) 1-2 tablet ORAL q 4 H PRN ondansetron (PF) 4 mg injection (ZOFRAN) 4 mg INTRAVENOUS q 6 H PRN atorvastatin 40 mg tab(s) (LIPITOR) 40 mg ORAL AT BEDTIME Surgical Incision 02/09/18 Chest - Midsternal (Active) Dressing Status None: Open to Air 03/12/2018 7:30 PM Frequency of Dressing Change As Needed 03/12/2018 7:30 AM Incision Closures Topical Skin Adhesive 03/12/2018 7:30 PM Drainage Description None 03/12/2018 7:30 PM Drainage Amount None 03/12/2018 7:30 AM Edges Intact 03/12/2018 7:30 PM Hematoma No 03/12/2018 7:30 AM Number of days:32 Surgical Incision 02/09/18 Leg - Left (Active) Dressing Status None: Open to Air 03/12/2018 7:30 PM Frequency of Dressing Change As Needed 03/12/2018 7:30 AM Incision Closures Intact 03/12/2018 7:30 PM Drainage Description None 03/12/2018 7:30 PM Drainage Amount None 03/12/2018 7:30 AM Edges Intact 03/12/2018 7:30 PM Hematoma No 03/12/2018 7:30 AM Number of days:32 MNT Billing Type: Re-assess/15 min 3 units SIGNATURE: Sandra Almaguer RD, AMINA PATIENT NAME: Jeffrey Cullen DATE: March 13, 2018 TIME: 9:44 AM PAGER: [phone] HEMOGRAM/DIFF Collected: 03/13/2018 Status: F Source: [facility] 4:30 AM HEALTH SYSTEM REPOSITORY TYPE CODE TESTS RESULT OUT OF REFERENCE UNITS RANGE LAB WBC(LOINC) 4.23-9.07 thou/cmm WBC 5.35 LAB RBC(LOINC) 4.63-6.08 mil/cmm Low RBC 3.12 LAB HGB(LOINC) 13.7-17.5 g/dL Low Hgb 9.7 LAB HCT(LOINC) 40.1-51.0 % Low Hct 29.9 LAB MCV(LOINC) 83.2-95.6 fl MCV High 95.8 LAB MCH(LOINC) 25.7-32.2 pg MCH 31.1 LAB MCHC(LOINC 32.3-36.5 % ) MCHC 32.4 LAB RDW(LOINC) 11.6-14.4 % RDW 13.2 LAB RDWSD(LOIN 36.1-45.8 fl C) RDW SD High 46.1 LAB PLT(LOINC) 141-365 thou/cmm Platelet 189 LAB MPV(LOINC) 8.7-12.0 fl MPV 9.8 LAB SEG(LOINC) % Seg Neutrophil 43.1 LAB IGRE(LOINC % ) Immature Grans 4.90 LAB LYMPH(LOIN % C) Lymphocyte 34.4 LAB MNO(LOINC) % Monocyte 12.0 LAB EOSIN(LOIN % C) Eosinophil 5.0 LAB BASO(LOINC % ) Basophil 0.6 LAB SEGN(LOINC 1.78-5.38 thou/cmm ) Abs. Neut 2.31 LAB IGAB(LOINC 0.00-0.05 thou/cmm ) Abs High Immature Grans 0.26 LAB LYMN(LOINC 0.84-2.85 thou/cmm ) Abs. Lymph 1.84 LAB MONON(LOIN 0.30-0.82 thou/cmm C) Abs. Slope 0.64 LAB EOSN(LOINC 0.04-0.54 thou/cmm ) Abs. Eosin 0.27 LAB BASON(LOIN 0.01-0.08 thou/cmm C) Abs. Baso 0.03 Result Comment: Smear scanned; tech agrees with automated differential Performed By: #### CBCD1 #### [place] [address] BASIC PANEL Collected: 03/13/2018 Status: F Source: [facility] 4:30 AM HEALTH SYSTEM REPOSITORY TYPE CODE TESTS RESULT OUT OF REFERENCE UNITS RANGE LAB NA(LOINC) 136-145 mEq/L Sodium Blood 141 LAB K(LOINC) 3.5-5.1 mEq/L Potassium Blood 3.8 LAB CL(LOINC) 98-107 mEq/L Chloride Blood 106 LAB CO2(LOINC) 21-32 mEq/L CO2 Blood 31 LAB GLU(LOINC) 70-99 mg/dL Glucose High Blood 115 LAB BUN(LOINC) 7-18 mg/dL BUN High Blood 25 LAB CREA(LOINC 0.67-1.17 mg/dL ) Low Creatinine Blood 0.55 LAB CA(LOINC) 8.5-10.1 mg/dL Low Calcium Blood 8.2 LAB ANGAP(LOIN 8-16 C) Anion Gap 8 Performed By: #### P8 #### [facility] [address] [place], [place] [address] MDRD GFR Collected: 03/13/2018 Status: F Source: [facility] 4:30 AM HEALTH SYSTEM REPOSITORY TYPE CODE TESTS RESULT OUT OF RANGE REFERENCE UNITS LAB GFRFN(LOINC >60mL/min/1.73m ) 2 eGFR >60 Result Comment: If the patient is , multiply the result by 1.210. Performed By: #### GFR #### [facility] [address] [place], [place] [address] PROGRESS Observed: 03/12/2018 Status: COMPLETED Source: [place] 1:00 PM CLINIC OTHER CAMPUS REPOSITORY HNO ID: [id number] Author: Paulette Aguilar Service: Critical Care Author Type: Physician Type: Progress Notes Filed: 03/12/2018 11:03 PM Note Text: MICU - PROGRESS NOTE SERVICE DATE: 03/12/2018 SERVICE TIME: 1:00 PM Admission Date: 02/07/2018 AGE: [age] year old LOS: 33 days REASON FOR ICU ADMISSION: Acute respiratory failure, acute encephalopathy Subjective HPI/Interval history: Sedated on propofol Sister (w/ her best friend) present at bedside-flew in from OR yesterday Pt breathing w/ the vent w/o any dysynchrony noted 1L IVF yest for hypotension w/ response No diarrhea Afebrile Objective VITAL SIGNS (last 24hrs min/max): Temp Av.3 ?C (99.1 ?F) Min: 36.4 ?C (97.5 ?F) Max: 37.7 ?C (99.9 ?F) Pulse Av.9 Min: 86 Max: 127 No Data Recorded Cuff BP Min: 79/51 Max: 182/153 Pain Score: 7/10 Vital signs reviewed. BP 103/64 Pulse 95 Temp (Src) 98.8 (Temporal Artery) Resp 13 Ht 5' 10.984 (1.80m) Wt 217 lb 9.5 oz (98.7kg) SpO2 99% BMI 30.36 kg/(m2). Temp (24hrs), Av.8 ?C (98.3 ?F), Min:36.3 ?C (97.3 ?F), Max:37.2 ?C (99 ?F) NET FLUID BALANCE Intake/Output Summary (Last 24 hours) at 03/12/18 2241 Last data filed at 03/12/18 2200 Gross per 24 hour Intake 2023 ml Output 1780 ml Net 243 ml MEDICATIONS Current Facility-Administered Medications: meropenem 1 g in sterile water 20 mL (MERREM) 1 g INTRAVENOUS q 8 H apixaban 5 mg tab(s) (ELIQUIS) 5 mg ORAL BID dilTIAZem 100 mg in D5W 100 mL ADD-Boyden (CARDIZEM) 5-15 mg/hr INTRAVENOUS CONTINUOUS diltiazem 60 mg tab(s) (CARDIZEM) 60 mg NASOGASTRIC q 6 H haloperidol lactate 5 mg oral liquid (HALDOL) 5 mg ORAL q 6 HR propofol infusion (DIPRIVAN) 10-50 mcg/kg/min INTRAVENOUS CONTINUOUS valproic acid 500 mg CUP (DEPAKENE) 500 mg ORAL q 8 H thiamine 100 mg tab(s) (VITAMIN B1) 100 mg ORAL DAILY melatonin 6 mg tab(s) 6 mg ORAL AT BEDTIME pantoprazole 40 mg injection (PROTONIX) 40 mg INTRAVENOUS DAILY (6 AM) metoclopramide HCl 10 mg injection (REGLAN) 10 mg INTRAVENOUS q 6 H PRN fentaNYL 50 mcg/mL 50 mcg injection (SUBLIMAZE) 50 mcg INTRAVENOUS q 2 H PRN ipratropium-albuterol 3 mL nebulizer solution (DUONEB) 3 mL INHALATION QID aspirin 81 mg chewable tab(s) 81 mg ORAL DAILY metoprolol tartrate (short acting) 100 mg tab(s) (LOPRESSOR) 100 mg ORAL q 8 H 0.9% NaCl 20 mL 20 mL INTRAVENOUS PRN 0.9% NaCl 10 mL 10 mL INTRAVENOUS q 12 H bisacodyl 10 mg suppository (DULCOLAX) 10 mg RECTAL DAILY PRN polyethylene glycol 3350 17 g packet (MIRALAX, GLYCOLAX) 17 g ORAL DAILY senna-docusate 8.6-50 mg 1 tablet (SENNA-S) 1 tablet ORAL BID pill splitter (patient-specific) 1 Each Miscell. (Med.Supl.;Non- Drugs) PRN Chlorhexidine Gluconate 0.12 % 15 mL (PERIDEX) 15 mL ORAL q 12 H budesonide 0.5 mg/2 mL 1 mg (PULMICORT) 1 mg INHALATION BID acetaminophen 650 mg tab(s) (TYLENOL) 650 mg ORAL q 6 H PRN potassium chloride iv piggyback 20 mEq in sterile water 100 mL 20 mEq INTRAVENOUS PRN magnesium sulfate in water 2 g in sterile water 50 ml 2 g INTRAVENOUS PRN(NO DISPENSE) albuterol 2.5 mg /3 mL (0.083 %) 2.5 mg (PROVENTIL) 2.5 mg INHALATION q 2 H PRN calcium chloride 1 g in D5W 100 mL 1 g INTRAVENOUS PRN(NO DISPENSE) oxyCODONE-acetaminophen 5-325 mg 1-2 tablet (PERCOCET) 1-2 tablet ORAL q 4 H PRN ondansetron (PF) 4 mg injection (ZOFRAN) 4 mg INTRAVENOUS q 6 H PRN atorvastatin 40 mg tab(s) (LIPITOR) 40 mg ORAL AT BEDTIME Lines, Drains, and Airways Line Peripheral 03/11/18 1040 Short Right Hand 18 Gauge 1 day Peripheral 03/11/18 1044 Short Right Forearm 18 Gauge 1 day Drain Indwelling Urinary Catheter 02/09/18837 Temperature Monitoring 16 Fr 31 days GI Feed/Drain 02/22/18 1336 Gastrostomy-Jejunostomy (G-J) Abdomen 18 Fr 18 days Airway Airway Tracheostomy 02/22/18 18 days Respiratory/Nursing Documentation: O2 Therapy: Ventilator (03/12/182099) Invasive Ventilator Mode: Pressure Regulated Volume Control (03/12/182099) Set Ventilator Respiratory Rate (BPM): 16 (03/12/181929) Total Respiratory Rate (BPM): 19 (03/12/18 0840) Tidal Volume Set (mL): 500 (03/12/181929) Exhaled Tidal Volume (mL): 590 (03/12/18 0840) Minute Volume (L): 9.4 (03/12/182099) Peak Inspiratory Pressure (cm H2O): 19 (03/12/182099) PEEP/CPAP (cm H2O): 5 (03/12/182099) PHYSICAL EXAMINATION: Constitutional: Vitals-reviewed and noted above. General appearance- Sedated and breathing comfortably on the vent; not as restless as prior weaks Eyes: Anicteric; pupils reactive Trach secured Cardiovascular: RRR Respiratory: CTAB, No accessory muscle use GI/Abdominal: soft, BS+ Neuro: Not grimacing as much to UE movement as he was, but is very sedated; No rigidity DATA: All data reviewed, including, but not limited to, data noted below. All diagnostic tests, including labs/specimens, EKGs, and imaging, were personally reviewed by me. CULTURES: CXR FINDINGS: 03/06: FINDINGS: The tracheostomy tube appears stable. ?There is a stable appearing right ?central venous catheter with its tip in the right atrium. ?There is no visible pneumothorax and the lungs are otherwise clear. ?Heart is nonenlarged. ?Sternotomy ?wires are noted. OTHER DIAGNOSTICS/ IMAGIN/11: MRI Cspine and Tspine: No sig abnormality Impression/Recommendations Critical Care Documentation: The patient has the following organ/system impairment(s): # Severe ongoing encephalopathy (severe motor restlessness, cognitive impairments); UE notable weakness and pain- No obvious source of toxic metabolic etiology; MRI C-spine and T-spine normal; not explained fully by severe ICU delirium; LP 03/10 neg for BEHAVIORAL HEALTH CONSULTANT infection - still no clear explaination # Klebsiella/Enterobacter bacteremia- suspect BSI d/t PICC line; doubt septic arthritis # Hypotension - sepsis related to above vs sedation related- improved # Acute, now chronic (3 wks) respiratory failure with trach, prolonged vent; on PRVC w/ better synchrony # Paroxysmal Afib rate controlled; now NSR # s/o CABG POD 31 # Copd FEV1 69% preop # Mild anemia after prolonged icu course # Severe protein calorie malnutrition ? PLAN: - will discuss w/ ID if any concern for septic arthritis of shoulder (though doubtful given b/l pain and per daughter had pain shoulder pain complaints [employer]) - PICC (likely infected) removed 03/11- cont w/ line holiday; cont Meropenem 1g IV q8; LP cultures/Work-up still pending but cell count/diff not c/w infection - Follow BCx - Cont haldol 5mg po q6hr; will change from standing to prn now - Follow EKGs QT monitoring, EKG in AM - C/w Valproic acid per neurology, ?EMG/NCS eventually - Wean propofol to RASS 0 - Limit Benzos - Cont Fentanyl prn q2hr for pain control/tachypnea - Duonebs q4h - Holding lasix in view of borderline hypotension; resume when BP permits - ASA/stain/BB - Eliquis (DVT prophy also) - Ongoing encephalopathy posing as sig barrier to vent liberation - Thiamine - LTAC when stable Prognosis: Guarded Code Status: Full code for now though sister (next of kin) is inquiring about CCA/palliative care options Patient/Family Updated: Spoke to daughter at bedside and answered all questions This patient has a high probability of sudden, clinically significant deterioration, which requires the highest level of physician preparedness to intervene urgently. I managed/supervised life or organ supporting interventions that required frequent physician assessment. I devoted my full attention to the direct care of this patient for the amount of time indicated below. Time I spent with family or surrogate(s) is included only if the patient was incapable of providing the necessary information or participating in medical decision making. Time devoted to teaching and to any procedures I billed separately is not included. Discussed with staff. Time spent providing critical care services: 38 minutes, excluding procedures. SIGNATURE: Paulette Aguilar MD [facility] DATE of SERVICE: March 12, 2018 TIME of SERVICE: 1:00 PM PROGRESS Observed: 03/12/2018 Status: COMPLETED Source: [place] 11:49 AM [facility] OTHER CAMPUS REPOSITORY O ID: [id number] Author: Krystal Valdez) Paul Service: Critical Care Author Type: Nurse Specialist Type: Progress Notes Filed: 03/12/2018 12:26 PM Note Text: MICU - PROGRESS NOTE SERVICE DATE: 03/12/2018 SERVICE TIME: 11:49 AM Admission Date: 02/07/2018 AGE: [age] year old LOS: 33 days Subjective REASON FOR ICU ADMISSION: Respiratory Failure Objective PROBLEMS: ACTIVE PROBLEM LIST Inguinal Hernia Without Mention of Obstruction Or Gangrene, Unilateral Or Unspecified, (Not Specified As Recurrent) Nstemi (Non-St Elevated Myocardial Infarction) (Hcc) Nsvt (Nonsustained Ventricular Tachycardia) (Hcc) Nicotine use disorder, F17.2 Malnutrition of Moderate Degree (Hcc) Encephalopathy Weakness No past medical history on file. PAST SURGICAL HISTORY Procedure Laterality Date - ORTHOPEDICS SURGERY HX - REPAIR ING HERNIA,5+Y/O,REDUCIBL 1989 Hernia repair, inguinal,left Social History Marital status: Single Spouse name: Years of education: Number of children: Social History Main Topics Smoking status: Current Every Day Smoker Packs/day: 2.00 Years: 25.00 Types: Cigarettes Alcohol use: No Drug use: No Sexual activity: Yes Partners with: Female Other Topics Concern Service No Blood Transfusions No Caffeine Concern No Occupational Exposure No Hobby Hazards No Sleep Concern No Stress Concern No Weight Concern No Special Diet No Back Care No Exercise No Bike Helmet No Seat Belt No Self-Exams No VITAL SIGNS (last 24hrs min/max): Temp Av.7 ?C (98 ?F) Min: 36.3 ?C (97.3 ?F) Max: 37.2 ?C (99 ?F) Pulse Av.4 Min: 61 Max: 88 No Data Recorded Cuff BP Min: 77/54 Max: 126/70 Pain Score: Pt. 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 BP 123/91 Pulse 88 Temp (Src) 97.3 (High Thermistor) Resp 16 Ht 5' 10.984 (1.80m) Wt 217 lb 9.5 oz (98.7kg) SpO2 99% BMI 30.36 kg/(m2). Temp (24hrs), Av.7 ?C (98 ?F), Min:36.3 ?C (97.3 ?F), Max:37.2 ?C (99 ?F) NET FLUID BALANCE Intake/Output Summary (Last 24 hours) at 03/12/18 1149 Last data filed at 03/12/18 1100 Gross per 24 hour Intake 1747 ml Output 772 ml Net 975 ml MEDICATIONS Current Facility-Administered Medications: meropenem 1 g in sterile water 20 mL (MERREM) 1 g INTRAVENOUS q 8 H apixaban 5 mg tab(s) (ELIQUIS) 5 mg ORAL BID dilTIAZem 100 mg in D5W 100 mL ADD-Boyden (CARDIZEM) 5-15 mg/hr INTRAVENOUS CONTINUOUS diltiazem 60 mg tab(s) (CARDIZEM) 60 mg NASOGASTRIC q 6 H haloperidol lactate 5 mg oral liquid (HALDOL) 5 mg ORAL q 6 HR propofol infusion (DIPRIVAN) 10-50 mcg/kg/min INTRAVENOUS CONTINUOUS valproic acid 500 mg CUP (DEPAKENE) 500 mg ORAL q 8 H thiamine 100 mg tab(s) (VITAMIN B1) 100 mg ORAL DAILY melatonin 6 mg tab(s) 6 mg ORAL AT BEDTIME pantoprazole 40 mg injection (PROTONIX) 40 mg INTRAVENOUS DAILY (6 AM) metoclopramide HCl 10 mg injection (REGLAN) 10 mg INTRAVENOUS q 6 H PRN fentaNYL 50 mcg/mL 50 mcg injection (SUBLIMAZE) 50 mcg INTRAVENOUS q 2 H PRN ipratropium-albuterol 3 mL nebulizer solution (DUONEB) 3 mL INHALATION QID aspirin 81 mg chewable tab(s) 81 mg ORAL DAILY metoprolol tartrate (short acting) 100 mg tab(s) (LOPRESSOR) 100 mg ORAL q 8 H 0.9% NaCl 20 mL 20 mL INTRAVENOUS PRN 0.9% NaCl 10 mL 10 mL INTRAVENOUS q 12 H bisacodyl 10 mg suppository (DULCOLAX) 10 mg RECTAL DAILY PRN polyethylene glycol 3350 17 g packet (MIRALAX, GLYCOLAX) 17 g ORAL DAILY senna-docusate 8.6-50 mg 1 tablet (SENNA-S) 1 tablet ORAL BID pill splitter (patient-specific) 1 Each Miscell. (Med.Supl.;Non- Drugs) PRN Chlorhexidine Gluconate 0.12 % 15 mL (PERIDEX) 15 mL ORAL q 12 H budesonide 0.5 mg/2 mL 1 mg (PULMICORT) 1 mg INHALATION BID acetaminophen 650 mg tab(s) (TYLENOL) 650 mg ORAL q 6 H PRN potassium chloride iv piggyback 20 mEq in sterile water 100 mL 20 mEq INTRAVENOUS PRN magnesium sulfate in water 2 g in sterile water 50 ml 2 g INTRAVENOUS PRN(NO DISPENSE) albuterol 2.5 mg /3 mL (0.083 %) 2.5 mg (PROVENTIL) 2.5 mg INHALATION q 2 H PRN calcium chloride 1 g in D5W 100 mL 1 g INTRAVENOUS PRN(NO DISPENSE) oxyCODONE-acetaminophen 5-325 mg 1-2 tablet (PERCOCET) 1-2 tablet ORAL q 4 H PRN ondansetron (PF) 4 mg injection (ZOFRAN) 4 mg INTRAVENOUS q 6 H PRN atorvastatin 40 mg tab(s) (LIPITOR) 40 mg ORAL AT BEDTIME Lines, Drains, and Airways Line Peripheral 03/11/18 1040 Short Right Hand 18 Gauge 1 day Peripheral 03/11/18 1044 Short Right Forearm 18 Gauge 1 day Drain Indwelling Urinary Catheter 02/09/18 0838 Temperature Monitoring 16 Fr 31 days GI Feed/Drain 02/22/18 1336 Gastrostomy-Jejunostomy (G-J) Abdomen 18 Fr 17 days Airway Airway Tracheostomy 02/22/18 18 days PHYSICAL EXAM PERFORMED: Cardiovascular: Regular rhythm Respiratory: Reduced breath sounds bilat %FIO2 Min: 40 Max: 40 Abdomen: Soft Extremities: Edema-mild generalized edema Neurologic: Sedated Does not follow requests Respiratory/Nursing Documentation: O2 Therapy: Ventilator (03/12/18 0840) Invasive Ventilator Mode: Pressure Regulated Volume Control (03/12/18 0840) Set Ventilator Respiratory Rate (BPM): 16 (03/12/18 0840) Total Respiratory Rate (BPM): 19 (03/12/18 0840) Tidal Volume Set (mL): 55 (03/12/18 0840) Exhaled Tidal Volume (mL): 590 (03/12/18 0840) Minute Volume (L): 10.3 (03/12/18 0840) Peak Inspiratory Pressure (cm H2O): 14 (03/12/18 0840) PEEP/CPAP (cm H2O): 5 (03/12/18 0840) HEMODYNAMIC DATA: Reviewed NUTRITION: Enteral Feeds: Yes NPO DATA: Diagnostic tests reviewed for today's visit, films/specimens were personally reviewed by me: Most recent labs and imaging results. LABS: Recent Labs 03/12/18 0515 03/10/18 1200 WBC 5.51 < > 8.25 RBC 3.12* < > 3.25* HB 9.8* < > 10.2* HCT 29.7* < > 31.9* MCV 95.2 < > 98.2* PLT 176 < > 171 GLUC 104* < > 110* BUN 29* < > 30* CREAT 0.65* < > 0.92 NA 139 < > 139 K 4.1 < > 3.6 CHLOR 105 < > 102 CO2 30 < > 29 TPROT -- -- 6.6 ALB -- -- 2.1* CA 8.2* < > 8.3* ALKPHOS -- -- 103 TBILI -- -- 0.5 AST -- -- 39* ALT -- -- 31 < > = values in this interval not displayed. ABG: Invalid input(s): [id number] Assessment/Plan IMPRESSION: Critical Care Documentation: The patient has the following organ/system impairment(s): Respiratory failure (with Hypoxemia) Gram negative bacteremia with organism in klebsiella/enterobacter group. No source seen on CT chest/abd/pelvis. Not from UTI. Most likely source is prior PICC- I don't see PICC tip culture in system, hopefully it was sent. Continue meroepenem- will need total two weeks of therapy 2. Severe persistent encephalopathy-does not follow requests-Neuro following-both CT and MRI of brain are negative 3.Agitation persists-currently on propofol at 40 mcg 4. SP CABG POD#31 5. Debility 6. Mild postop anemia 7. Severe protein calorie malnutrition 8. Patient is on Seoquel-monitor QTC 9. Acute hypoxic respiratory insufficiency-continue ventilatory support-duonebs 10. ASA/statin/BB 11. Continue Eliquis 12. Select soon ? This patient has a high probability of sudden, clinically significant deterioration, which requires the highest level of physician preparedness to intervene urgently. I managed/supervised life or organ supporting interventions that required frequent physician assessment. I devoted my full attention to the direct care of this patient for the amount of time indicated below. Time I spent with family or surrogate(s) is included only if the patient was incapable of providing the necessary information or participating in medical decision making. Time devoted to teaching is not included. Discussed with staff/patient/family Time spent providing critical care services: 35 minutes excluding procedures. SIGNATURE: Krystal Miller APRN.BEHAVIORAL HEALTH CONSULTANT PATIENT NAME: Jeffrey Cullen DATE: March 12, 2018 TIME: 11:49 AM PROGRESS Observed: 03/12/2018 Status: COMPLETED Source: [place] 10:42 AM [facility] OTHER CAMPUS REPOSITORY O ID: [id number] Author: Elkin Colunga III Service: Infectious Disease Author Type: Physician Type: Progress Notes Filed: 03/12/2018 10:46 AM Note Text: INFECTIOUS DISEASE CONSULT PROGRESS NOTE SERVICE DATE: March 12, 2018 10:46 AM Subjective INTERVAL HISTORY: No acute events. Remains encephalopathic but seems slightly arousable today. PERTINENT ROS: Not able to obtain from patient. Current Facility-Administered Medications: meropenem 1 g in sterile water 20 mL (MERREM) 1 g INTRAVENOUS q 8 H apixaban 5 mg tab(s) (ELIQUIS) 5 mg ORAL BID dilTIAZem 100 mg in D5W 100 mL ADD-Boyden (CARDIZEM) 5-15 mg/hr INTRAVENOUS CONTINUOUS diltiazem 60 mg tab(s) (CARDIZEM) 60 mg NASOGASTRIC q 6 H haloperidol lactate 5 mg oral liquid (HALDOL) 5 mg ORAL q 6 HR propofol infusion (DIPRIVAN) 10-50 mcg/kg/min INTRAVENOUS CONTINUOUS valproic acid 500 mg CUP (DEPAKENE) 500 mg ORAL q 8 H thiamine 100 mg tab(s) (VITAMIN B1) 100 mg ORAL DAILY melatonin 6 mg tab(s) 6 mg ORAL AT BEDTIME pantoprazole 40 mg injection (PROTONIX) 40 mg INTRAVENOUS DAILY (6 AM) metoclopramide HCl 10 mg injection (REGLAN) 10 mg INTRAVENOUS q 6 H PRN fentaNYL 50 mcg/mL 50 mcg injection (SUBLIMAZE) 50 mcg INTRAVENOUS q 2 H PRN ipratropium-albuterol 3 mL nebulizer solution (DUONEB) 3 mL INHALATION QID aspirin 81 mg chewable tab(s) 81 mg ORAL DAILY metoprolol tartrate (short acting) 100 mg tab(s) (LOPRESSOR) 100 mg ORAL q 8 H 0.9% NaCl 20 mL 20 mL INTRAVENOUS PRN 0.9% NaCl 10 mL 10 mL INTRAVENOUS q 12 H bisacodyl 10 mg suppository (DULCOLAX) 10 mg RECTAL DAILY PRN polyethylene glycol 3350 17 g packet (MIRALAX, GLYCOLAX) 17 g ORAL DAILY senna-docusate 8.6-50 mg 1 tablet (SENNA-S) 1 tablet ORAL BID pill splitter (patient-specific) 1 Each Miscell. (Med.Supl.;Non- Drugs) PRN Chlorhexidine Gluconate 0.12 % 15 mL (PERIDEX) 15 mL ORAL q 12 H budesonide 0.5 mg/2 mL 1 mg (PULMICORT) 1 mg INHALATION BID acetaminophen 650 mg tab(s) (TYLENOL) 650 mg ORAL q 6 H PRN potassium chloride iv piggyback 20 mEq in sterile water 100 mL 20 mEq INTRAVENOUS PRN magnesium sulfate in water 2 g in sterile water 50 ml 2 g INTRAVENOUS PRN(NO DISPENSE) albuterol 2.5 mg /3 mL (0.083 %) 2.5 mg (PROVENTIL) 2.5 mg INHALATION q 2 H PRN calcium chloride 1 g in D5W 100 mL 1 g INTRAVENOUS PRN(NO DISPENSE) oxyCODONE-acetaminophen 5-325 mg 1-2 tablet (PERCOCET) 1-2 tablet ORAL q 4 H PRN ondansetron (PF) 4 mg injection (ZOFRAN) 4 mg INTRAVENOUS q 6 H PRN atorvastatin 40 mg tab(s) (LIPITOR) 40 mg ORAL AT BEDTIME whitney day-o.5 Objective PHYSICAL EXAM: Vital Signs: BP 119/69 Pulse 79 Temp 37.2 ?C (99 ?F) Resp 19 Ht 180.3 cm (5' 10.98) Wt 98.7 kg (217 lb 9.5 oz) SpO2 96% BMI 30.36 kg/m2 03/11/18 1500 03/11/18 1900 03/11/18 2300 03/12/18 0700 Temp: 36.5 ?C (97.7 ?F) 36.6 ?C (97.9 ?F) 36.7 ?C (98.1 ?F) 37.2 ?C (99 ?F) General: Lying in bed, opens eyes to voice HEENT: PERRL. No conjunctivitis. Heart: RRR without murmur. Incisional scar on chest from CABG. Lungs: CTAB Abdomen: Soft, nontender. Extremities: no embolic lesions of hands/feet. Periopheral IVs without redness. DATA: Diagnostic Tests Reviewed for Today's Visit: Lab Results Component Value Date WBC 5.51 03/12/2018 WBC 5.59 03/11/2018 WBC 8.25 03/10/2018 WBC 5.65 03/09/2018 WBC 7.12 03/06/2018 WBC 8.16 03/03/2018 Creatinine Date Value Ref Range Status 03/12/2018 0.65 (L) 0.67 - 1.17 mg/dL Final 03/11/2018 0.76 0.67 - 1.17 mg/dL Final 03/10/2018 0.92 0.67 - 1.17 mg/dL Final 03/08/2018 0.81 0.67 - 1.17 mg/dL Final Estimated Creatinine Clearance: 130.3 mL/min (based on Cr of 0.65). / Blood cultures with kleb/enterobacter group awaiting susceptibility/ID 03/10 body fluid culture no growth Impression/Recommendations 1) Gram negative bacteremia with organism in klebsiella/enterobacter group. No source seen on CT chest/abd/pelvis. Not from UTI. Most likely source is prior PICC- I don't see PICC tip culture in system, hopefully it was sent. Continue meroepenem- will need total two weeks of therapy 2) encephalopathy- persists. Opened eyes slightly and moved head when I spoke to him. 3) S/p CABG SIGNATURE: Elkin Colunga III, MD PATIENT NAME: Jeffrey Cullen DATE: March 12, 2018 TIME: 10:43 AM PAGER/CONTACT #: [phone] PROGRESS Observed: 03/12/2018 Status: COMPLETED Source: [place] 9:55 AM CLINIC OTHER CAMPUS REPOSITORY HNO ID: [id number] Author: Evans Parkinson Service: Cardiac Surgery Author Type: Physician Type: Progress Notes Filed: 03/12/2018 10:01 AM Note Text: CARDIOTHORACIC SURGERY POSTOP PROGRESS NOTE SERVICE DATE: 03/12/2018 SERVICE TIME: 9:55 AM Subjective S/P SURGERY: Procedure(s) (LRB): TRACHEOSTOMY ADULT (N/A) DATE OF SURGERY: 02/22/2018 POSTOP DAY #20+ LOS: 33 INTERVAL EVENTS / PERTINENT ROS: No changes; hemodynamically stable; vent stable; no change in neuro status Objective Admission Weight: 104.3 kg (229 lb 15 oz) BP 119/69 Pulse 79 Temp 37.2 ?C (99 ?F) Resp 19 Ht 180.3 cm (5' 10.98) Wt 98.7 kg (217 lb 9.5 oz) SpO2 96% BMI 30.36 kg/m2 Body surface area is 2.22 meters squared. Min/Max/Average Temperature AND Blood Pressure: Temp (24hrs), Av.7 ?C (98.1 ?F), Min:36.5 ?C (97.7 ?F), Max:37.2 ?C (99 ?F) Systolic (24hrs), Av , Min:77 , Max:126 Diastolic (24hrs), Av, Min:51, Max:81 Intake/Output Summary (Last 24 hours) at 03/12/18 0930 Last data filed at 03/12/18 0637 Gross per 24 hour Intake 1657 ml Output 784 ml Net 873 ml TELEMETRY: normal sinus rhythm PHYSICAL EXAM: On examination, the patient is sedated, ventilated via tracheostomy, breathing comfortably. Vital signs are: BP 137/77 Pulse 65 Temp 36.7 ?C (98.1 ?F) Resp 20 Ht 180.3 cm (5' 11) Wt 86.4 kg (190 lb 7.6 oz) SpO2 99% BMI 26.57 kg/m2. There is no JVD. Breath sounds are clear bilaterally. The sternal wound is intact and the sternum is stable. The cardiac rhythm is regular. There are no rubs, gallops, or murmurs. The carotid, subclavian, and radial pulses are 2+ and equal bilaterally. The abdomen is soft and non-tender. There are no abdominal masses. There is no hepatojugular reflux. The saphenous vein harvest sites are intact. There is no pretibial edema. There is no clubbing or cyanosis. The neuro exam is grossly non focal. Lines, Drains, and Airways Line Peripheral 03/11/18 1040 Short Right Hand 18 Gauge less than 1 day Peripheral 03/11/18 1044 Short Right Forearm 18 Gauge less than 1 day Drain Indwelling Urinary Catheter 02/09/18 0838 Temperature Monitoring 16 Fr 31 days GI Feed/Drain 02/22/18 1336 Gastrostomy-Jejunostomy (G-J) Abdomen 18 Fr 17 days Airway Airway Tracheostomy 02/22/18 18 days DATA: Diagnostic tests reviewed for today's visit: Significant Lab Results: see below Recent Labs 03/12/18 0515 03/11/18 0455 03/10/18 1200 RBC 3.12* 2.90* 3.25* WBC 5.51 5.59 8.25 HB 9.8* 9.3* 10.2* HCT 29.7* 28.1* 31.9* PLT 176 154 171 NA 139 137 139 K 4.1 3.4* 3.6 CHLOR 105 103 102 CO2 30 28 29 BUN 29* 31* 30* CREAT 0.65* 0.76 0.92 GLUC 104* 111* 110* CA 8.2* 7.8* 8.3* TPROT -- -- 6.6 TBILI -- -- 0.5 ALKPHOS -- -- 103 ALT -- -- 31 AST -- -- 39* ANION 8 9 12 Recent Labs 03/09/18 1410 UPH 5.5 SPGR 1.029 UGLUC NEGATIVE UBILI NEGATIVE UKET TRACE* UPROT TRACE* Assessment/Plan s/p CABG POD 20+ Acute encephalopathy -persistent, idiopathic -requires continuing sedation due to thrashing -neuroAND ID?following -Per ID, LP negative for infection -Gram negative bacteremia: blood culture x 2 + for Klebsiella; discussed with Dr. Colunga, ID. Suspects PICC line may be source; removed; peripheral IV access. ?? Acute hypoxic AND hypercapneic respiratory failure 2/2 severe COPD -s/p tracheostomy -Vent wean per ICU team ?? Paroxysmal Afib/Aflutter -NSR today -c/w Metoprolol AND Diltiazem -c/w Eliquis for OAC ?? -Volume Overload -resolved -High for strict IANDO ?? DVT ppx -Eliquis and SCDs Tests/Labs Ordered: 1. None SIGNATURE: Evans Parkinson MD PATIENT NAME: Jeffrey Cullen DATE: March 12, 2018 TIME: 9:55 AM PAGER/CONTACT #: [phone] HEMOGRAM/DIFF Collected: 03/12/2018 Status: F Source: [facility] 5:15 AM HEALTH SYSTEM REPOSITORY TYPE CODE TESTS RESULT OUT OF REFERENCE UNITS RANGE LAB WBC(LOINC) 4.23-9.07 thou/cmm WBC 5.51 LAB RBC(LOINC) 4.63-6.08 mil/cmm Low RBC 3.12 LAB HGB(LOINC) 13.7-17.5 g/dL Low Hgb 9.8 LAB HCT(LOINC) 40.1-51.0 % Low Hct 29.7 LAB MCV(LOINC) 83.2-95.6 fl MCV 95.2 LAB MCH(LOINC) 25.7-32.2 pg MCH 31.4 LAB MCHC(LOINC 32.3-36.5 % ) MCHC 33.0 LAB RDW(LOINC) 11.6-14.4 % RDW 13.3 LAB RDWSD(LOIN 36.1-45.8 fl C) RDW SD High 46.4 LAB PLT(LOINC) 141-365 thou/cmm Platelet 176 LAB MPV(LOINC) 8.7-12.0 fl MPV 9.7 LAB SEG(LOINC) % Seg Neutrophil 46.0 LAB LYMPH(LOIN % C) Lymphocyte 34.0 LAB MNO(LOINC) % Monocyte 11.0 LAB EOSIN(LOIN % C) Eosinophil 5.0 LAB BASO(LOINC % ) Basophil 2.0 LAB MYELO(LOIN % C) Myelocytes 2.0 LAB SEGN(LOINC 1.78-5.38 thou/cmm ) Abs. Neut 2.53 LAB IMGRA(LOIN C) Immat Grans Abs calc 1.10 LAB LYMN(LOINC 0.84-2.85 thou/cmm ) Abs. Lymph 1.87 LAB MONON(LOIN 0.30-0.82 thou/cmm C) Abs. Slope 0.61 LAB EOSN(LOINC 0.04-0.54 thou/cmm ) Abs. Eosin 0.28 LAB BASON(LOIN 0.01-0.08 thou/cmm C) Abs. High Baso 0.11 LAB RBCM(LOINC ) RBC Morphology Present LAB TEAR(LOINC ) Tear drop cells Few Performed By: #### CBCD1 #### [place] [id number] BASIC PANEL Collected: 03/12/2018 Status: F Source: [facility] 5:15 AM HEALTH SYSTEM REPOSITORY TYPE CODE TESTS RESULT OUT OF REFERENCE UNITS RANGE LAB NA(LOINC) 136-145 mEq/L Sodium Blood 139 LAB K(LOINC) 3.5-5.1 mEq/L Potassium Blood 4.1 LAB CL(LOINC) 98-107 mEq/L Chloride Blood 105 LAB CO2(LOINC) 21-32 mEq/L CO2 Blood 30 LAB GLU(LOINC) 70-99 mg/dL Glucose High Blood 104 LAB BUN(LOINC) 7-18 mg/dL BUN High Blood 29 LAB CREA(LOINC 0.67-1.17 mg/dL ) Low Creatinine Blood 0.65 LAB CA(LOINC) 8.5-10.1 mg/dL Low Calcium Blood 8.2 LAB ANGAP(LOIN 8-16 C) Anion Gap 8 Performed By: #### P8 #### [facility] [address] [place] [id number] MDRD GFR Collected: 03/12/2018 Status: F Source: [facility] 5:15 AM HEALTH SYSTEM REPOSITORY TYPE CODE TESTS RESULT OUT OF RANGE REFERENCE UNITS LAB GFRFN(LOINC >60mL/min/1.73m ) 2 eGFR >60 Result Comment: If the patient is , multiply the result by 1.210. Performed By: #### GFR #### [facility] [address] [place] [id number] PROGRESS Observed: 03/11/2018 Status: COMPLETED Source: [place] 1:00 PM CLINIC OTHER CAMPUS REPOSITORY HNO ID: [id number] Author: Paulette Aguilar Service: Critical Care Author Type: Physician Type: Progress Notes Filed: 03/12/2018 8:46 AM Note Text: MICU - PROGRESS NOTE SERVICE DATE: 03/11/2018 SERVICE TIME: 1:00 PM Admission Date: 02/07/2018 AGE: [age] year old LOS: 32 days REASON FOR ICU ADMISSION: Acute respiratory failure, acute encephalopathy Subjective HPI/Interval history: Had LP this AM; required rocuronium/propofol to proceed Still encephalopathic GNR in blood; Febrile O/N Objective VITAL SIGNS (last 24hrs min/max): Vital Signs: BP 110/60 Pulse 71 Temp 36.8 ?C (98.2 ?F) Resp 17 Ht 180.3 cm (5' 10.98) Wt 98.7 kg (217 lb 9.5 oz) SpO2 98% BMI 30.36 kg/m2 TEMPERATURE ? 03/11/18 0400 03/11/18 0500 03/11/18 0552 03/11/18 0700 Temp: 37.2 ?C (99 ?F) 37.1 ?C (98.8 ?F) 36.7 ?C (98.1 ?F) 36.8 ?C (98.2 ?F) NET FLUID BALANCE Intake/Output Summary (Last 24 hours) at 03/11/18 0932 Last data filed at 03/11/18 0800 ? Gross per 24 hour Intake 1444.1 ml Output 957 ml Net 487.1 ml MEDICATIONS Current Facility-Administered Medications: meropenem 1 g in sterile water 20 mL (MERREM) 1 g INTRAVENOUS q 8 H apixaban 5 mg tab(s) (ELIQUIS) 5 mg ORAL BID dilTIAZem 100 mg in D5W 100 mL ADD-Boyden (CARDIZEM) 5-15 mg/hr INTRAVENOUS CONTINUOUS diltiazem 60 mg tab(s) (CARDIZEM) 60 mg NASOGASTRIC q 6 H haloperidol lactate 5 mg oral liquid (HALDOL) 5 mg ORAL q 6 HR propofol infusion (DIPRIVAN) 10-50 mcg/kg/min INTRAVENOUS CONTINUOUS valproic acid 500 mg CUP (DEPAKENE) 500 mg ORAL q 8 H thiamine 100 mg tab(s) (VITAMIN B1) 100 mg ORAL DAILY melatonin 6 mg tab(s) 6 mg ORAL AT BEDTIME pantoprazole 40 mg injection (PROTONIX) 40 mg INTRAVENOUS DAILY (6 AM) metoclopramide HCl 10 mg injection (REGLAN) 10 mg INTRAVENOUS q 6 H PRN fentaNYL 50 mcg/mL 50 mcg injection (SUBLIMAZE) 50 mcg INTRAVENOUS q 2 H PRN ipratropium-albuterol 3 mL nebulizer solution (DUONEB) 3 mL INHALATION QID aspirin 81 mg chewable tab(s) 81 mg ORAL DAILY metoprolol tartrate (short acting) 100 mg tab(s) (LOPRESSOR) 100 mg ORAL q 8 H 0.9% NaCl 20 mL 20 mL INTRAVENOUS PRN 0.9% NaCl 10 mL 10 mL INTRAVENOUS q 12 H bisacodyl 10 mg suppository (DULCOLAX) 10 mg RECTAL DAILY PRN polyethylene glycol 3350 17 g packet (MIRALAX, GLYCOLAX) 17 g ORAL DAILY senna-docusate 8.6-50 mg 1 tablet (SENNA-S) 1 tablet ORAL BID pill splitter (patient-specific) 1 Each Miscell. (Med.Supl.;Non- Drugs) PRN Chlorhexidine Gluconate 0.12 % 15 mL (PERIDEX) 15 mL ORAL q 12 H budesonide 0.5 mg/2 mL 1 mg (PULMICORT) 1 mg INHALATION BID acetaminophen 650 mg tab(s) (TYLENOL) 650 mg ORAL q 6 H PRN potassium chloride iv piggyback 20 mEq in sterile water 100 mL 20 mEq INTRAVENOUS PRN magnesium sulfate in water 2 g in sterile water 50 ml 2 g INTRAVENOUS PRN(NO DISPENSE) albuterol 2.5 mg /3 mL (0.083 %) 2.5 mg (PROVENTIL) 2.5 mg INHALATION q 2 H PRN calcium chloride 1 g in D5W 100 mL 1 g INTRAVENOUS PRN(NO DISPENSE) oxyCODONE-acetaminophen 5-325 mg 1-2 tablet (PERCOCET) 1-2 tablet ORAL q 4 H PRN ondansetron (PF) 4 mg injection (ZOFRAN) 4 mg INTRAVENOUS q 6 H PRN atorvastatin 40 mg tab(s) (LIPITOR) 40 mg ORAL AT BEDTIME Lines, Drains, and Airways Line Peripheral 03/11/18 1040 Short Right Hand 18 Gauge less than 1 day Peripheral 03/11/18 1044 Short Right Forearm 18 Gauge less than 1 day Drain Indwelling Urinary Catheter 02/09/18 0838 Temperature Monitoring 16 Fr 30 days GI Feed/Drain 02/22/18 1336 Gastrostomy-Jejunostomy (G-J) Abdomen 18 Fr 17 days Airway Airway Tracheostomy 02/22/18 18 days Respiratory/Nursing Documentation: PRVC Set TV 550-->breathing 550-580s Set RR 16-->17 PEEP 5 FiO2 40% Pk pressure 14 PHYSICAL EXAMINATION: Constitutional: Vitals-reviewed and noted above. General appearance- Sedated and breathing comfortably on the vent; not as restless Eyes: Anicteric; pupils reactive Trach secured Cardiovascular: RRR Respiratory: Vent sounds appreciated, CTAB GI/Abdominal: soft, BS+ Neuro: Still grimacing to even mild touch of UE Ext: No surrounding erythema of PICC, no edema, no cyanosis DATA: All data reviewed, including, but not limited to, data noted below. All diagnostic tests, including labs/specimens, EKGs, and imaging, were personally reviewed by me. MICRO: 03/09 BCX PICC Kleb/Enterobacter in 4 bottles CXR FINDINGS: 03/06: The tracheostomy tube appears stable. ?There is a stable appearing right ?central venous catheter with its tip in the right atrium. ?There is no visible pneumothorax and the lungs are otherwise clear. ?Heart is nonenlarged. ?Sternotomy ?wires are noted. 03/10: There is now obscuration of the left hemidiaphragm, presumably as a result of pleural effusion with atelectasis or consolidation. OTHER DIAGNOSTICS/ IMAGIN/11: MRI Cspine and Tspine: No sig abnormality 03/10: CT chest/A/P Possible mild pulmonary edema although some of the interstitial prominence is accentuated by imaging at expiration. ?Mild subsegmental right basilar atelectasis. Borderline cardiomegaly. Percutaneous gastrojejunostomy catheter without apparent complications. Stable cystic structures at the right kidney including a presumed hyperdense cyst. Impression/Recommendations Critical Care Documentation: The patient has the following organ/system impairment(s): # Severe ongoing encephalopathy ( severe motor restlessness, cognitive impairments); UE notable weakness and pain- No obvious source of toxic metabolic; MRI C-spine and T-spine normal; not explained fully by severe ICU delirium; LP 03/10 neg for [employer] infection # Klebsiella/Enterobacter bacteremia- suspect BSI d/t PICC line # Hypotension - sepsis related to above vs sedation related # Acute, now chronic (3 wks) respiratory failure with trach, prolonged vent; on PRVC w/ better synchrony # Paroxysmal Afib rate controlled; now NSR # s/o CABG POD 30 # Copd FEV1 69% preop # Mild anemia after prolonged icu course # Severe protein calorie malnutrition PLAN: - Discussed w/ ID (Dr Colunga); will remove PICC line and obtain PIVs (aim for line holiday), cont Meropenem 1g IV q8; LP cultures/Work- up pending but not infectious - Follow BCx; repeat - Cont standing haldol 5mg IV q6hr - Follow EKGs QT monitoring - C/w Valproic acid per neurology - Wean propofol to RASS 0 - Limit Benzos - Cont Fentanyl prn q2hr for pain control/tachypnea - Duonebs q4h - Holding lasix in view of borderline hypotension; bolus 1 L - ASA/stain/BB - Eliquis (DVT prophy also) - Ongoing encephalopathy posing as sig barrier to vent liberation - Thiamine - LTAC when stable Prognosis: Guarded Code Status: Full Patient/Family Updated: Family not present. This patient has a high probability of sudden, clinically significant deterioration, which requires the highest level of physician preparedness to intervene urgently. I managed/supervised life or organ supporting interventions that required frequent physician assessment. I devoted my full attention to the direct care of this patient for the amount of time indicated below. Time I spent with family or surrogate(s) is included only if the patient was incapable of providing the necessary information or participating in medical decision making. Time devoted to teaching and to any procedures I billed separately is not included. Discussed with staff. Time spent providing critical care services: 32 minutes, excluding procedures. SIGNATURE: Paulette Aguilar MD [facility] DATE of SERVICE: March 11, 2018 TIME of SERVICE: 1:00 PM CONSULT PROG Observed: 03/11/2018 Status: COMPLETED Source: [place] 11:49 AM CLINIC OTHER CAMPUS REPOSITORY HNO ID: [id number] Author: Jacey Zamora Service: Neurology Author Type: Physician Type: Consult Progress Note Filed: 03/11/2018 12:42 PM Note Text: NEUROLOGY CONSULT PROGRESS NOTE SERVICE DATE: 03/11/2018 SERVICE TIME: 11:49 AM Current Attending Provider: Beata Marin Subjective Interval History: Today, Jeffrey is not changed. Grimaces to noxious stim. Otherwise, nonverbal, does not open eyes or follow commands. Objective Physical Examination: Neurological: Mental Status: Does not awaken to verbal or painful stimuli but does grimace. He does not follow commands. Currently sedated on propofol for agitation. Cranial Nerves: CNII: Does not blink to threat CNIII, IV, : Pupils equal, round and reactive to light CN V: Unable to assess. CN VII: No noted facial droop CN VIII: Could not be assessed. CN IX: Gag Reflex Not Examined CN X: Cough intact CN XI: Could not be assessed. ? CN XII: Could not be assessed. Motor Exam: ? Muscle Tone: Normal ? Strength today in the bilateral extremities is not changed ? Reflexes: Not tested. ? Sensation: Intact to pin-prick [pain]. ? Coordination: Could not be tested. ? Gait: Patient is unable to ambulate. New Labs: WBC (thou/cmm) Date Value 03/11/2018 5.59 03/10/2018 8.25 03/09/2018 5.65 RBC (mil/cmm) Date Value 03/11/2018 2.90 03/10/2018 3.25 03/09/2018 3.12 Platelet Count (thou/cmm) Date Value 03/11/2018 154 03/10/2018 171 03/09/2018 196 BUN (mg/dL) Date Value 03/11/2018 31 03/10/2018 30 03/08/2018 29 Creatinine (mg/dL) Date Value 03/11/2018 0.76 03/10/2018 0.92 03/08/2018 0.81 CBC, Coags, BMP, Mg, Phos Recent Labs 03/11/18 0455 03/10/18 1200 03/09/18 0840 03/08/18 1315 INR -- -- 1.15 -- NA 137 139 -- 136 K 3.4* 3.6 -- 3.9 CHLOR 103 102 -- 101 CO2 28 29 -- 30 GLUC 111* 110* -- 96 CA 7.8* 8.3* -- 7.6* Liver Function, Amylase, AND Lipase Recent Labs 03/10/18 1200 TPROT 6.6 ALB 2.1* ALT 31 AST 39* ALKPHOS 103 TBILI 0.5 BEM Reading: Negative for seizure activity. DATA: Diagnostic tests reviewed for today's visit: Most recent labs and imaging results. CT chest/abdomen/pelvis: Chest- mild pulmonary edema w/ some interstitial prominence accentuated by expiration. Stable cystic structures in R kidney. Otherwise no acute process to explain bacteremia. LP: Negative Impression/Recommendations Encephalopathy: Likely multifactorial, metabolic vs. Infectious: - MRI T-spine, C-spine negative - Blood cultures growing gram - bacilli. On meropenem. ID following - LP negative - Avoid sedatives, anticholinergics, antihistamines - Continued supportive care and treatment of metabolic issues per primary team. - Would recommend EMG/NCS of upper and lower extremities. Will follow peripherally. Please call with questions or concerns. Patient seen and examined, discussed in detail with Dr. Zamora. SIGNATURE: Suzanne Prasad PA-C PATIENT NAME: Jeffrey Cullen DATE: March 11, 2018 TIME: 11:49 AM PAGER/CONTACT #: [facility] STAFF PHYSICIAN NOTE OF PERSONAL INVOLVEMENT IN CARE I have reviewed the consult note obtained and documented by the physician patent legal assistant and I personally participated in the hernandez components. I have discussed the case and management of the patient's care. The following comments revise or confirm relevant hernandez components of the note. IMPRESSION: Toxic metabolic encephalopathy in setting of surgery and complex medical conditons All work up negative to date including MRI Brain, spine and LP. EEG also negative grimaces to deep stimuli, no command following , minimal movement in UE> limited exam due to poor mental status ,3 mm reactive pupil. + corneal, cough and gag PLAN: - No clear reason for encephalopathy Consider checking TSH, B12 , MMA Avoid sedation suspect combination of sepsis, toxic metabolic encephalopathy EMG/NCS would help Please call us if any questions Will follow peripherally This patient has a high probability of sudden, clinically significant deterioration, which requires the highest level of physician preparedness to intervene urgently. I managed/supervised life or organ supporting interventions that required frequent physician assessment. I devoted my full attention to the direct care of this patient for the amount of time indicated below. Time I spent with family or surrogate(s) is included only if the patient was incapable of providing the necessary information or participating in medical decision making. Time devoted to teaching and to any procedures I billed separately is not included. Jacey Zamora M.D Staff [employer] Pager [phone] Date : March 11, 2018 Observed: 03/11/2018 Status: F Source: [facility] 11:35 AM HEALTH SYSTEM REPOSITORY Test performed at [facility] <15 colonies cultured Performed By: #### C_DEV #### [facility] [address] [place] [address] PROGRESS Observed: 03/11/2018 Status: COMPLETED Source: [place] 9:56 AM CLINIC OTHER CAMPUS REPOSITORY HNO ID: [id number] Author: Elkin Colunga III Service: Infectious Disease Author Type: Physician Type: Progress Notes Filed: 03/11/2018 10:04 AM Note Text: INFECTIOUS DISEASE CONSULT PROGRESS NOTE SERVICE DATE: 03/10/2018 SERVICE TIME: 1040 Subjective INTERVAL HISTORY: No acute events. Remains encephalopathic. PERTINENT ROS: Not able to obtain from patient. Current Facility-Administered Medications: meropenem 1 g in sterile water 20 mL (MERREM) 1 g INTRAVENOUS q 8 H apixaban 5 mg tab(s) (ELIQUIS) 5 mg ORAL BID perflutren lipid microspheres 1.1 mg/mL 1.3 mL injection (DEFINITY) 1.3 mL INTRAVENOUS PRN(NO DISPENSE) dilTIAZem 100 mg in D5W 100 mL ADD-Boyden (CARDIZEM) 5-15 mg/hr INTRAVENOUS CONTINUOUS diltiazem 60 mg tab(s) (CARDIZEM) 60 mg NASOGASTRIC q 6 H haloperidol lactate 5 mg oral liquid (HALDOL) 5 mg ORAL q 6 HR propofol infusion (DIPRIVAN) 10-50 mcg/kg/min INTRAVENOUS CONTINUOUS valproic acid 500 mg CUP (DEPAKENE) 500 mg ORAL q 8 H thiamine 100 mg tab(s) (VITAMIN B1) 100 mg ORAL DAILY melatonin 6 mg tab(s) 6 mg ORAL AT BEDTIME pantoprazole 40 mg injection (PROTONIX) 40 mg INTRAVENOUS DAILY (6 AM) metoclopramide HCl 10 mg injection (REGLAN) 10 mg INTRAVENOUS q 6 H PRN fentaNYL 50 mcg/mL 50 mcg injection (SUBLIMAZE) 50 mcg INTRAVENOUS q 2 H PRN ipratropium-albuterol 3 mL nebulizer solution (DUONEB) 3 mL INHALATION QID aspirin 81 mg chewable tab(s) 81 mg ORAL DAILY metoprolol tartrate (short acting) 100 mg tab(s) (LOPRESSOR) 100 mg ORAL q 8 H 0.9% NaCl 20 mL 20 mL INTRAVENOUS PRN 0.9% NaCl 10 mL 10 mL INTRAVENOUS q 12 H bisacodyl 10 mg suppository (DULCOLAX) 10 mg RECTAL DAILY PRN polyethylene glycol 3350 17 g packet (MIRALAX, GLYCOLAX) 17 g ORAL DAILY senna-docusate 8.6-50 mg 1 tablet (SENNA-S) 1 tablet ORAL BID pill splitter (patient-specific) 1 Each Miscell. (Med.Supl.;Non- Drugs) PRN Chlorhexidine Gluconate 0.12 % 15 mL (PERIDEX) 15 mL ORAL q 12 H budesonide 0.5 mg/2 mL 1 mg (PULMICORT) 1 mg INHALATION BID acetaminophen 650 mg tab(s) (TYLENOL) 650 mg ORAL q 6 H PRN potassium chloride iv piggyback 20 mEq in sterile water 100 mL 20 mEq INTRAVENOUS PRN magnesium sulfate in water 2 g in sterile water 50 ml 2 g INTRAVENOUS PRN(NO DISPENSE) albuterol 2.5 mg /3 mL (0.083 %) 2.5 mg (PROVENTIL) 2.5 mg INHALATION q 2 H PRN calcium chloride 1 g in D5W 100 mL 1 g INTRAVENOUS PRN(NO DISPENSE) oxyCODONE-acetaminophen 5-325 mg 1-2 tablet (PERCOCET) 1-2 tablet ORAL q 4 H PRN ondansetron (PF) 4 mg injection (ZOFRAN) 4 mg INTRAVENOUS q 6 H PRN atorvastatin 40 mg tab(s) (LIPITOR) 40 mg ORAL AT BEDTIME whitney day-o.5 Objective PHYSICAL EXAM: Vital Signs: BP 110/60 Pulse 71 Temp 36.8 ?C (98.2 ?F) Resp 17 Ht 180.3 cm (5' 10.98) Wt 98.7 kg (217 lb 9.5 oz) SpO2 98% BMI 30.36 kg/m2 03/11/18 0400 03/11/18 0500 03/11/18 0552 03/11/18 0700 Temp: 37.2 ?C (99 ?F) 37.1 ?C (98.8 ?F) 36.7 ?C (98.1 ?F) 36.8 ?C (98.2 ?F) General: Lying in bed, encephalopathic HEENT: Slight injection of conjunctiva. No conjunctivitis. Pupils equal, round, reactive Heart: RRR without murmur. Incisional scar on chest from CABG. Lungs: CTAB Abdomen: Soft, nontender. Extremities: no embolic lesions of hands/feet. PICC in right arm- no surrounding erythema. DATA: Diagnostic Tests Reviewed for Today's Visit: Lab Results Component Value Date WBC 5.59 03/11/2018 WBC 8.25 03/10/2018 WBC 5.65 03/09/2018 WBC 7.12 03/06/2018 WBC 8.16 03/03/2018 WBC 5.85 03/01/2018 Creatinine Date Value Ref Range Status 03/11/2018 0.76 0.67 - 1.17 mg/dL Final 03/10/2018 0.92 0.67 - 1.17 mg/dL Final 03/08/2018 0.81 0.67 - 1.17 mg/dL Final 03/06/2018 0.83 0.67 - 1.17 mg/dL Final Estimated Creatinine Clearance: 111.4 mL/min (based on Cr of 0.76). Blood cultures with kleb/enterobacter group awaiting susceptibility/ID CT chest/abd/pelvis- cystic structure on right kidney. JG tube in place. Mild pulmonary edema. Mild subsegmental right basilar atelectasis Impression/Recommendations 1) Gram negative bacteremia with organism in klebsiella/enterobacter group. No source seen on CT chest/abd/pelvis. Not from UTI. Most likely source is PICC. Advised ICU team (Aida Miller CNP) about central line placement and PICC removal/tip cultures Continue meroepenem. If further fevers then add one dose of tobramycin while awaiting susceptibility and repeat blood cultures 2) encephalopathy- persists. No evidence of infection on LP. SIGNATURE: Elkin Colunga III, MD PATIENT NAME: Jeffrey Cullen DATE: March 11, 2018 TIME: 9:57 AM PAGER/CONTACT #: [phone] PROGRESS Observed: 03/11/2018 Status: COMPLETED Source: [place] 9:32 AM [facility] OTHER CAMPUS REPOSITORY O ID: [id number] Author: Evans Parkinson Service: Cardiac Surgery Author Type: Physician Type: Progress Notes Filed: 03/11/2018 10:28 AM Note Text: CARDIOTHORACIC SURGERY POSTOP PROGRESS NOTE SERVICE DATE: 03/11/2018 SERVICE TIME: 9:32 AM Subjective S/P SURGERY: Procedure(s) (LRB): TRACHEOSTOMY ADULT (N/A) DATE OF SURGERY: 02/22/2018 POSTOP DAY #30 LOS: 32 INTERVAL EVENTS / PERTINENT ROS: Hemodynamics and vent status stable. No change in neuro status. Sepsis work up in progress. Objective Admission Weight: 104.3 kg (229 lb 15 oz) BP 110/60 Pulse 71 Temp 36.8 ?C (98.2 ?F) Resp 17 Ht 180.3 cm (5' 10.98) Wt 98.7 kg (217 lb 9.5 oz) SpO2 98% BMI 30.36 kg/m2 Body surface area is 2.22 meters squared. Min/Max/Average Temperature AND Blood Pressure: Temp (24hrs), Av ?C (98.6 ?F), Min:36.2 ?C (97.2 ?F), Max:38.1 ?C (100.6 ?F) Systolic (24hrs), Av , Min:74 , Max:122 Diastolic (24hrs), Av, Min:45, Max:83 Intake/Output Summary (Last 24 hours) at 03/11/18 0932 Last data filed at 03/11/18 0800 Gross per 24 hour Intake 1444.1 ml Output 957 ml Net 487.1 ml TELEMETRY: normal sinus rhythm PHYSICAL EXAM: On examination, the patient is awake, not following commands, moving head and extremities but not purposeful, and is breathing comfortably on vent via tracheostomy.. Vital signs are: BP 137/77 Pulse 65 Temp 36.7 ?C (98.1 ?F) Resp 20 Ht 180.3 cm (5' 11) Wt 86.4 kg (190 lb 7.6 oz) SpO2 99% BMI 26.57 kg/m2. There is no JVD. Breath sounds are clear bilaterally. The sternal wound is intact and the sternum is stable. The cardiac rhythm is regular. There are no rubs, gallops, or murmurs. The carotid, subclavian, and radial pulses are 2+ and equal bilaterally. The abdomen is soft and non-tender. G tube. There are no abdominal masses. There is no hepatojugular reflux. The saphenous vein harvest sites are intact. There is no pretibial edema. There is no clubbing or cyanosis. The neuro exam is grossly non focal. Lines, Drains, and Airways Line Central Line Double Lumen 02/17/18 1310 Peripherally Inserted (PICC) Right Arm 5.0 Vietnamese 21 days Drain Indwelling Urinary Catheter 02/09/18 0838 Temperature Monitoring 16 Fr 30 days GI Feed/Drain 02/22/18 1336 Gastrostomy-Jejunostomy (G-J) Abdomen 18 Fr 16 days Airway Airway Tracheostomy 02/22/18 17 days DATA: Diagnostic tests reviewed for today's visit: see below Recent Labs 03/11/18 0455 03/10/18 1200 03/09/18 0840 03/08/18 1315 RBC 2.90* 3.25* 3.12* -- WBC 5.59 8.25 5.65 -- HB 9.3* 10.2* 9.8* -- HCT 28.1* 31.9* 31.0* -- PLT 154 171 196 -- INR -- -- 1.15 -- NA 137 139 -- 136 K 3.4* 3.6 -- 3.9 CHLOR 103 102 -- 101 CO2 28 29 -- 30 BUN 31* 30* -- 29* CREAT 0.76 0.92 -- 0.81 GLUC 111* 110* -- 96 CA 7.8* 8.3* -- 7.6* TPROT -- 6.6 -- -- TBILI -- 0.5 -- -- ALKPHOS -- 103 -- -- ALT -- 31 -- -- AST -- 39* -- -- ANION 9 12 -- 9 Recent Labs 03/09/18 1410 UPH 5.5 SPGR 1.029 UGLUC NEGATIVE UBILI NEGATIVE UKET TRACE* UPROT TRACE* Assessment/Plan 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 Colunga, ID. Suspects PICC line may be source; to be removed; will try to get peripheral IV access. ?? Acute hypoxic AND hypercapneic respiratory failure 2/2 severe COPD -s/p tracheostomy -Vent wean per ICU team ?? Paroxysmal Afib/Aflutter -Rates better controlled on increased dose of diltiazem -c/w Metoprolol AND Diltiazem -c/w Eliquis for OAC ?? Acute encephalopathy -Neuro AND ID following -Per ID, LP negative for infection -Possibly related to gram negative rods in blood. -CT Chest/abd/pelvis: unremarkable, expected post surgical changes ?? Volume Overload -Holding lasix today for possible infection, septicemia -High for strict IANDO ? DVT ppx -Eliquis and SCDs Tests/Labs Ordered: 1. None SIGNATURE: Evans Parkinson MD PATIENT NAME: Jeffrey Cullen DATE: March 11, 2018 TIME: 9:32 AM PAGER/CONTACT #: [phone] HEMOGRAM/DIFF Collected: 03/11/2018 Status: F Source: [facility] 4:55 AM HEALTH SYSTEM REPOSITORY TYPE CODE TESTS RESULT OUT OF REFERENCE UNITS RANGE LAB WBC(LOINC) 4.23-9.07 thou/cmm WBC 5.59 LAB RBC(LOINC) 4.63-6.08 mil/cmm Low RBC 2.90 LAB HGB(LOINC) 13.7-17.5 g/dL Low Hgb 9.3 LAB HCT(LOINC) 40.1-51.0 % Low Hct 28.1 LAB MCV(LOINC) 83.2-95.6 fl MCV High 96.9 LAB MCH(LOINC) 25.7-32.2 pg MCH 32.1 LAB MCHC(LOINC 32.3-36.5 % ) MCHC 33.1 LAB RDW(LOINC) 11.6-14.4 % RDW 13.5 LAB RDWSD(LOIN 36.1-45.8 fl C) RDW SD High 48.0 LAB PLT(LOINC) 141-365 thou/cmm Platelet 154 LAB MPV(LOINC) 8.7-12.0 fl MPV 9.9 LAB SEG(LOINC) % Seg Neutrophil 62.3 LAB IGRE(LOINC % ) Immature Grans 3.20 LAB LYMPH(LOIN % C) Lymphocyte 17.9 LAB MNO(LOINC) % Monocyte 13.2 LAB EOSIN(LOIN % C) Eosinophil 2.9 LAB BASO(LOINC % ) Basophil 0.5 LAB SEGN(LOINC 1.78-5.38 thou/cmm ) Abs. Neut 3.48 LAB IGAB(LOINC 0.00-0.05 thou/cmm ) Abs High Immature Grans 0.18 LAB LYMN(LOINC 0.84-2.85 thou/cmm ) Abs. Lymph 1.00 LAB MONON(LOIN 0.30-0.82 thou/cmm C) Abs. Slope 0.74 LAB EOSN(LOINC 0.04-0.54 thou/cmm ) Abs. Eosin 0.16 LAB BASON(LOIN 0.01-0.08 thou/cmm C) Abs. Baso 0.03 Performed By: #### CBCD1 #### [facility] [address] [address] BASIC PANEL Collected: 03/11/2018 Status: F Source: [facility] 4:55 AM HEALTH SYSTEM REPOSITORY TYPE CODE TESTS RESULT OUT OF REFERENCE UNITS RANGE LAB NA(LOINC) 136-145 mEq/L Sodium Blood 137 LAB K(LOINC) 3.5-5.1 mEq/L Low Potassium Blood 3.4 LAB CL(LOINC) 98-107 mEq/L Chloride Blood 103 LAB CO2(LOINC) 21-32 mEq/L CO2 Blood 28 LAB GLU(LOINC) 70-99 mg/dL Glucose High Blood 111 LAB BUN(LOINC) 7-18 mg/dL BUN High Blood 31 LAB CREA(LOINC 0.67-1.17 mg/dL ) Creatinine Blood 0.76 LAB CA(LOINC) 8.5-10.1 mg/dL Low Calcium Blood 7.8 LAB ANGAP(LOIN 8-16 C) Anion Gap 9 Performed By: #### P8 #### [place] [id number] MDRD GFR Collected: 03/11/2018 Status: F Source: [facility] 4:55 AM HEALTH SYSTEM REPOSITORY TYPE CODE TESTS RESULT OUT OF RANGE REFERENCE UNITS LAB GFRFN(LOINC >60mL/min/1.73m ) 2 eGFR >60 Result Comment: If the patient is , multiply the result by 1.210. Performed By: #### GFR #### [facility] [address] [address] [address] CHEST W/O CONTRAST Observed: 03/10/2018 Status: F Source: [facility] 4:33 PM HEALTH SYSTEM REPOSITORY Performed at [facility] APPROVED BY: Ismael Marin MD EXAMINATION: CHEST CT WITHOUT CONTRAST Indication: Gram-negative bacteremia Technique: Spiral CT acquisition of the chest from the thoracic inlet to the upper abdomen without contrast. MQ: [id number] Contrast: [address] Dose-Length Product: 1221 mGy*cm-total dose CT chest, abdomen, and pelvis CT Dose Reduction Employed: 3. mAs or kVp was manually adjusted based on either the patient size or age. Comparison: None RESULT: Limitations: None. Lines, tubes, and devices: There is a tracheostomy tube which terminates well above the nelda. There is a right-sided central venous catheter terminating at the caval atrial junction. Lung parenchyma and pleura: Pulmonary assessment is somewhat limited by respiratory motion but there does appear to be some diffuse nonspecific interstitial prominence. This is potentially secondary to mild pulmonary edema. Alternatively, at least some of this could be an artifact of imaging in expiration. Subsegmental atelectasis is present at the lower lung zones bilaterally. Thoracic inlet, heart, and mediastinum: There is a sternotomy with associated fixation wires. Surgical clips are noted in the mediastinum. Heart is mildly enlarged. There is no mediastinal lymphadenopathy. Bones and soft tissues: Degenerative changes are noted at the glenohumeral joints. Upper abdomen: Discussed on a separate abdominal CT report IMPRESSION: Possible mild pulmonary edema although some of the interstitial prominence is accentuated by imaging at expiration. Mild subsegmental right basilar atelectasis. Borderline cardiomegaly. Support lines as discussed. CT ABDOMEN AND PELVIS Observed: 03/10/2018 Status: F Source: [facility] W/O CONTRAST 4:33 PM HEALTH SYSTEM REPOSITORY Performed at [facility] APPROVED BY: Ismael Marin MD Exam Title: CT OF THE ABDOMEN AND PELVIS WITHOUT INTRAVENOUS CONTRAST EXAM DATE:03/10/2018 16:29 Clinical Indication/History: Gram-negative bacteremia COMPARISON: 02/22/2018 Technique: A CT of the abdomen and pelvis without Intravenous contrast. In the absence of intravenous contrast, there is decreased sensitivity for detecting infectious, neoplastic, visceral, and vascular abnormalities. Contrast: [address] Dose-Length Product: Discussed on a separate chest CT report CT Dose Reduction Employed: 1. Automated exposure control (AEC) was used. FINDINGS: CHEST BASE: Discussed on a separate chest CT report LIVER: Normal BILIARY TRACT AND GALLBLADDER:Normal PANCREAS:Normal SPLEEN:Normal ADRENAL GLANDS:Normal KIDNEYS AND RENAL COLLECTING SYSTEMS: Near the superior pole of the right kidney, there is a 4.6 cm cyst. Closer to the inferior pole, there is a hyperdense lesion measuring about 1.5 cm. This is prob ably a hyperdense cyst and it appears relatively stable. Soft tissue mass is difficult to entirely exclude and follow-up studies may be indicated. There is no hydronephrosis on either side. LYMPH NODES AND RETROPERITONEUM:Normal VESSELS:Normal GI TRACT AND MESENTERY: There is a new percutaneous gastrojejunostomy catheter terminating at the proximal jejunum. No abnormal fluid is identified. There is no extraluminal gas or evidence for bowel obstruction. SOFT TISSUES AND MUSCULOSKELETAL:Normal BLADDER:Normal PELVIC ORGANS:Normal IMPRESSION: New percutaneous gastrojejunostomy catheter without apparent complications. Stable cystic structures at the right kidney including a presumed hyperdense cyst. Solid lesion is not entirely excluded and follow-up for this to assure stability is recommended. PROGRESS Observed: 03/10/2018 Status: COMPLETED Source: [place] 3:32 PM CLINIC OTHER CAMPUS REPOSITORY HNO ID: [id number] Author: Clementine Owen Service: Cardiovascular Surgery Author Type: Nurse Practitioner Type: Progress Notes Filed: 03/10/2018 3:44 PM Note Text: CARDIOTHORACIC SURGERY POSTOP PROGRESS NOTE SERVICE DATE: 03/10/2018 SERVICE TIME: 3:35 PM Subjective LOS: 31 INTERVAL EVENTS / PERTINENT ROS: Had LP and CTH today. Objective Admission Weight: 104.3 kg (229 lb 15 oz) BP 104/58 Pulse 72 Temp 37.6 ?C (99.7 ?F) Resp 19 Ht 180.3 cm (5' 10.98) Wt 100.1 kg (220 lb 10.9 oz) SpO2 96% BMI 30.79 kg/m2 Body surface area is 2.24 meters squared. Min/Max/Average Temperature AND Blood Pressure: Temp (24hrs), Av.6 ?C (99.6 ?F), Min:36.2 ?C (97.2 ?F), Max:38.1 ?C (100.6 ?F) Systolic (24hrs), Av , Min:81 , Max:138 Diastolic (24hrs), Av, Min:51, Max:111 Intake/Output Summary (Last 24 hours) at 03/10/18 1534 Last data filed at 03/10/18 1500 Gross per 24 hour Intake 1475 ml Output 1543 ml Net -68 ml Current Facility-Administered Medications: - meropenem 1 g in sterile water 20 mL (MERREM) - [START ON 03/11/2018] apixaban 5 mg tab(s) (ELIQUIS) - perflutren lipid microspheres 1.1 mg/mL 1.3 mL injection (DEFINITY) - dilTIAZem 100 mg in D5W 100 mL ADD-Boyden (CARDIZEM) - diltiazem 60 mg tab(s) (CARDIZEM) - haloperidol lactate 5 mg oral liquid (HALDOL) - propofol infusion (DIPRIVAN) - valproic acid 500 mg CUP (DEPAKENE) - thiamine 100 mg tab(s) (VITAMIN B1) - melatonin 6 mg tab(s) - pantoprazole 40 mg injection (PROTONIX) - metoclopramide HCl 10 mg injection (REGLAN) - fentaNYL 50 mcg/mL 50 mcg injection (SUBLIMAZE) - ipratropium-albuterol 3 mL nebulizer solution (DUONEB) - aspirin 81 mg chewable tab(s) - metoprolol tartrate (short acting) 100 mg tab(s) (LOPRESSOR) - 0.9% NaCl 20 mL - 0.9% NaCl 10 mL - bisacodyl 10 mg suppository (DULCOLAX) - polyethylene glycol 3350 17 g packet (MIRALAX, GLYCOLAX) - senna-docusate 8.6-50 mg 1 tablet (SENNA-S) - pill splitter (patient-specific) - Chlorhexidine Gluconate 0.12 % 15 mL (PERIDEX) - budesonide 0.5 mg/2 mL 1 mg (PULMICORT) - acetaminophen 650 mg tab(s) (TYLENOL) - potassium chloride iv piggyback 20 mEq in sterile water 100 mL - magnesium sulfate in water 2 g in sterile water 50 ml - albuterol 2.5 mg /3 mL (0.083 %) 2.5 mg (PROVENTIL) - calcium chloride 1 g in D5W 100 mL - oxyCODONE-acetaminophen 5-325 mg 1-2 tablet (PERCOCET) - ondansetron (PF) 4 mg injection (ZOFRAN) - atorvastatin 40 mg tab(s) (LIPITOR) TELEMETRY: normal sinus rhythm PHYSICAL EXAM: General Appearance: well developed, no distress and calm, sedated on vent currently. Skin: Midsternal incision dry AND intact. and SVG incisions dry AND intact. Lungs: respiratory effort: normal and coarse Heart: regular rhythm and S1, S2 normal Abdomen: soft, non-tender and bowel sounds present Genitourinary: High intact, urine color is clear yellow Extremities: normal exam of the extremities Lines, Drains, and Airways Line Central Line Double Lumen 02/17/18 1310 Peripherally Inserted (PICC) Right Arm 5.0 Vietnamese 21 days Drain Indwelling Urinary Catheter 02/09/18 0838 Temperature Monitoring 16 Fr 29 days GI Feed/Drain 02/22/18 1336 Gastrostomy-Jejunostomy (G-J) Abdomen 18 Fr 16 days Airway Airway Tracheostomy 02/22/18 16 days DATA: Diagnostic tests reviewed for today's visit: Recent Labs 03/10/18 1200 03/09/18 0840 03/08/18 1315 RBC 3.25* 3.12* -- WBC 8.25 5.65 -- HB 10.2* 9.8* -- HCT 31.9* 31.0* -- PLT 171 196 -- INR -- 1.15 -- NA 139 -- 136 K 3.6 -- 3.9 CHLOR 102 -- 101 CO2 29 -- 30 BUN 30* -- 29* CREAT 0.92 -- 0.81 GLUC 110* -- 96 CA 8.3* -- 7.6* TPROT 6.6 -- -- TBILI 0.5 -- -- ALKPHOS 103 -- -- ALT 31 -- -- AST 39* -- -- ANION 12 -- 9 Recent Labs 03/09/18 1410 UPH 5.5 SPGR 1.029 UGLUC NEGATIVE UBILI NEGATIVE UKET TRACE* UPROT TRACE* Assessment/Plan Acute NSTEMI s/p CABG x 3 -POD#29 -c/w ASA, statin, BB -ECHO showed EF 40% ?? Acute hypoxic AND hypercapneic respiratory failure 2/2 severe COPD -s/p tracheostomy -Vent wean per ICU team ?? Paroxysmal Afib/Aflutter -Rates better controlled on increased dose of diltiazem -c/w Metoprolol AND Diltiazem -c/w Eliquis for OAC ?? Acute encephalopathy -Neuro AND ID following -Per ID, LP negative for infection -Possibly related to gram negative rods in blood. -Plan for CT Chest/abd/pelvis ?? Volume Overload -Holding lasix today for possible infection, septicemia -High for strict IANDO DVT ppx -Eliquis and SCDs Tests/Labs Ordered: 1. Chest X-ray 2. BMP 3. CBC SIGNATURE: Clementine Owen APRN.CNP PATIENT NAME: Jeffrey Cullen DATE: March 10, 2018 TIME: 3:34 PM PAGER/CONTACT #: [phone] [phone] PROGRESS Observed: 03/10/2018 Status: COMPLETED Source: [place] 1:04 PM [facility] OTHER CAMPUS REPOSITORY HNO ID: [id number] Author: Jose Myles Service: Radiology Author Type: Physician Type: Progress Notes Filed: 03/10/2018 1:05 PM Note Text: Radiology Status post LP under fluoroscopy without immediate complication Opening pressure: 30-31 cm Fluid: approximately 12 ml clear CSF to lab Jose Myles MD PROGRESS Observed: 03/10/2018 Status: COMPLETED Source: [place] 12:41 PM [facility] OTHER CAMPUS REPOSITORY HNO ID: [id number] Author: Juan Carrera Service: Infectious Disease Author Type: Physician Type: Progress Notes Filed: 03/10/2018 12:43 PM Note Text: LP no wbc so no infcn; Crypto ag neg Juan Carrera MD 03/10/2018 12:43 PM pgr [phone] PROGRESS Observed: 03/10/2018 Status: COMPLETED Source: [place] 12:22 PM [facility] REPOSITORY HNO ID: [id number] Author: Juan Carrera Service: Infectious Disease Author Type: Physician Type: Progress Notes Filed: 03/10/2018 12:40 PM Note Text: INFECTIOUS DISEASE CONSULT PROGRESS NOTE SERVICE DATE: 03/10/2018 SERVICE TIME: 1040 Subjective INTERVAL HISTORY: PT ENCEPHALOPATHIC; JUST HAD LP; brand new bld cx pos; PERTINENT ROS: Vented;min spt Current Facility-Administered Medications: meropenem 1 g in sterile water 20 mL (MERREM) 1 g INTRAVENOUS q 8 H rocuronium 50 mg injection (ZEMURON) 50 mg INTRAVENOUS ONCE perflutren lipid microspheres 1.1 mg/mL 1.3 mL injection (DEFINITY) 1.3 mL INTRAVENOUS PRN(NO DISPENSE) dilTIAZem 100 mg in D5W 100 mL ADD-Boyden (CARDIZEM) 5-15 mg/hr INTRAVENOUS CONTINUOUS diltiazem 60 mg tab(s) (CARDIZEM) 60 mg NASOGASTRIC q 6 H haloperidol lactate 5 mg oral liquid (HALDOL) 5 mg ORAL q 6 HR propofol infusion (DIPRIVAN) 10-50 mcg/kg/min INTRAVENOUS CONTINUOUS valproic acid 500 mg CUP (DEPAKENE) 500 mg ORAL q 8 H thiamine 100 mg tab(s) (VITAMIN B1) 100 mg ORAL DAILY melatonin 6 mg tab(s) 6 mg ORAL AT BEDTIME pantoprazole 40 mg injection (PROTONIX) 40 mg INTRAVENOUS DAILY (6 AM) metoclopramide HCl 10 mg injection (REGLAN) 10 mg INTRAVENOUS q 6 H PRN fentaNYL 50 mcg/mL 50 mcg injection (SUBLIMAZE) 50 mcg INTRAVENOUS q 2 H PRN ipratropium-albuterol 3 mL nebulizer solution (DUONEB) 3 mL INHALATION QID aspirin 81 mg chewable tab(s) 81 mg ORAL DAILY metoprolol tartrate (short acting) 100 mg tab(s) (LOPRESSOR) 100 mg ORAL q 8 H 0.9% NaCl 20 mL 20 mL INTRAVENOUS PRN 0.9% NaCl 10 mL 10 mL INTRAVENOUS q 12 H bisacodyl 10 mg suppository (DULCOLAX) 10 mg RECTAL DAILY PRN polyethylene glycol 3350 17 g packet (MIRALAX, GLYCOLAX) 17 g ORAL DAILY senna-docusate 8.6-50 mg 1 tablet (SENNA-S) 1 tablet ORAL BID pill splitter (patient-specific) 1 Each Miscell. (Med.Supl.;Non- Drugs) PRN Chlorhexidine Gluconate 0.12 % 15 mL (PERIDEX) 15 mL ORAL q 12 H budesonide 0.5 mg/2 mL 1 mg (PULMICORT) 1 mg INHALATION BID acetaminophen 650 mg tab(s) (TYLENOL) 650 mg ORAL q 6 H PRN potassium chloride iv piggyback 20 mEq in sterile water 100 mL 20 mEq INTRAVENOUS PRN magnesium sulfate in water 2 g in sterile water 50 ml 2 g INTRAVENOUS PRN(NO DISPENSE) albuterol 2.5 mg /3 mL (0.083 %) 2.5 mg (PROVENTIL) 2.5 mg INHALATION q 2 H PRN calcium chloride 1 g in D5W 100 mL 1 g INTRAVENOUS PRN(NO DISPENSE) oxyCODONE-acetaminophen 5-325 mg 1-2 tablet (PERCOCET) 1-2 tablet ORAL q 4 H PRN ondansetron (PF) 4 mg injection (ZOFRAN) 4 mg INTRAVENOUS q 6 H PRN atorvastatin 40 mg tab(s) (LIPITOR) 40 mg ORAL AT BEDTIME whitney day-o.5 Objective PHYSICAL EXAM: Vital Signs: BP 108/64 Pulse 89 Temp 38.1 ?C (100.6 ?F) (Core) Resp 20 Ht 180.3 cm (5' 10.98) Wt 100.1 kg (220 lb 10.9 oz) SpO2 98% BMI 30.79 kg/m2 03/10/18 0400 03/10/18 0743 03/10/18 1034 03/10/18 1150 Temp: 37.8 ?C (100 ?F) 38 ?C (100.4 ?F) 36.2 ?C (97.2 ?F) 38.1 ?C (100.6 ?F) fvrs+ GEN-sedate on vent HEENT-vent HT-reg LUNGS-decr bases ABD-soft SSKIN-no rx rash IV SITE=clr JNT-no ac chg DATA: Diagnostic Tests Reviewed for Today's Visit: Lab Results Component Value Date WBC 5.65 03/09/2018 WBC 7.12 03/06/2018 WBC 8.16 03/03/2018 WBC 5.85 03/01/2018 WBC 8.62 02/27/2018 WBC 8.86 02/26/2018 Creatinine Date Value Ref Range Status 03/08/2018 0.81 0.67 - 1.17 mg/dL Final 03/06/2018 0.83 0.67 - 1.17 mg/dL Final 03/04/2018 1.00 0.67 - 1.17 mg/dL Final 03/03/2018 0.85 0.67 - 1.17 mg/dL Final Estimated Creatinine Clearance: 105.2 mL/min (based on Cr of 0.81). 2 BLD CXS =G-R; CSF JUST DONE; UA W/O PYURIA Impression/Recommendations 1- gr- septicemia- ? Etiol; check ct of ch/A/-P; if neg- may need picc removed(02/17) insert; WHITNEY STARTED PEND W/U. Pt with some prior atb and at risk for reseist 2- encephalop- await LP for poss subacute or chronic meningitis or viral enceph; coul be multifactorial p-op 3- fvrs- G- sepsis 4- atb monitor 5-comorb- CABG and hvy smoker, vent 6- d/w icu SIGNATURE: Juan Carrera MD PATIENT NAME: Jeffrey Cullen DATE: March 10, 2018 TIME: 12:22 PM PAGER/CONTACT #: [phone] HEMOGRAM/DIFF Collected: 03/10/2018 Status: F Source: [facility] 12:00 PM HEALTH SYSTEM REPOSITORY TYPE CODE TESTS RESULT OUT OF REFERENCE UNITS RANGE LAB WBC(LOINC) 4.23-9.07 thou/cmm WBC 8.25 LAB RBC(LOINC) 4.63-6.08 mil/cmm Low RBC 3.25 LAB HGB(LOINC) 13.7-17.5 g/dL Low Hgb 10.2 LAB HCT(LOINC) 40.1-51.0 % Low Hct 31.9 LAB MCV(LOINC) 83.2-95.6 fl MCV High 98.2 LAB MCH(LOINC) 25.7-32.2 pg MCH 31.4 LAB MCHC(LOINC 32.3-36.5 % ) Low MCHC 32.0 LAB RDW(LOINC) 11.6-14.4 % RDW 13.5 LAB RDWSD(LOIN 36.1-45.8 fl C) RDW SD High 49.0 LAB PLT(LOINC) 141-365 thou/cmm Platelet 171 LAB MPV(LOINC) 8.7-12.0 fl MPV 10.0 LAB SEG(LOINC) % Seg Neutrophil 79.0 LAB IGRE(LOINC % ) Immature Grans 2.40 LAB LYMPH(LOIN % C) Lymphocyte 7.5 LAB MNO(LOINC) % Monocyte 10.3 LAB EOSIN(LOIN % C) Eosinophil 0.4 LAB BASO(LOINC % ) Basophil 0.4 LAB SEGN(LOINC 1.78-5.38 thou/cmm ) Abs. High Neut 6.52 LAB IGAB(LOINC 0.00-0.05 thou/cmm ) Abs High Immature Grans 0.20 LAB LYMN(LOINC 0.84-2.85 thou/cmm ) Low Abs. Lymph 0.62 LAB MONON(LOIN 0.30-0.82 thou/cmm C) Abs. High Slope 0.85 LAB EOSN(LOINC 0.04-0.54 thou/cmm ) Low Abs. Eosin 0.03 LAB BASON(LOIN 0.01-0.08 thou/cmm C) Abs. Baso 0.03 Result Comment: Smear scanned; tech agrees with automated differential Performed By: #### CBCD1 #### [facility] [address] [id number] COMPREHENSIVE PANEL Collected: 03/10/2018 Status: F Source: [facility] 12:00 PM HEALTH SYSTEM REPOSITORY TYPE CODE TESTS RESULT OUT OF REFERENCE UNITS RANGE LAB NA(LOINC) 136-145 mEq/L Sodium Blood 139 LAB K(LOINC) 3.5-5.1 mEq/L Potassium Blood 3.6 LAB CL(LOINC) 98-107 mEq/L Chloride Blood 102 LAB CO2(LOINC) 21-32 mEq/L CO2 Blood 29 LAB GLU(LOINC) 70-99 mg/dL Glucose High Blood 110 LAB BUN(LOINC) 7-18 mg/dL BUN Blood High 30 LAB CREA(LOINC 0.67-1.17 mg/dL ) Creatinine Blood 0.92 LAB CA(LOINC) 8.5-10.1 mg/dL Low Calcium Blood 8.3 LAB ALB(LOINC) 3.4-5.0 g/dL Low Albumin Blood 2.1 LAB TP(LOINC) 6.4-8.2 g/dL Total Protein 6.6 LAB AST(LOINC) 9-37 U/L AST-SGOT High Blood 39 LAB ALT(LOINC) 12-78 U/L ALT-SGPT Blood 31 LAB ALKP(LOINC 46-116 U/L ) Alk Phosphatase 103 LAB BILIT(LOIN 0.2-1.0 mg/dL C) Total Bilirubin 0.5 LAB ANGAP(LOIN 8-16 C) Anion Gap 12 Performed By: #### P14 #### [facility] [address] [address] MDRD GFR Collected: 03/10/2018 Status: F Source: [facility] 12:00 PM HEALTH SYSTEM REPOSITORY TYPE CODE TESTS RESULT OUT OF RANGE REFERENCE UNITS LAB GFRFN(LOINC >60mL/min/1.73m ) 2 eGFR >60 Result Comment: If the patient is , multiply the result by 1.210. Performed By: #### GFR #### [facility] [address] [address] CHEST 1 VIEW Observed: 03/10/2018 Status: F Source: [facility] 11:51 AM HEALTH SYSTEM REPOSITORY Performed at [facility] APPROVED BY: Richie Velasco MD EXAM TITLE: CHEST 1 VIEW DATE: 03/10/2018 11:48 COMPARISON: Previous studies with the most recent dated 03/06/2018 CLINICAL INDICATION/HISTORY: Dyspnea TECHNIQUE: AP upright portable chest FINDINGS: The left hemidiaphragm is obscured, possibly as a result of underlying pleural effusion and atelectasis or consolidation. Minor atelectasis at the right lung base. No large pneumonia or significant congestion. Tracheostomy tube is again present as is a right PICC line. Stable cardiac enlargement. Intact sternotomy wires. No acute bony abnormality. IMPRESSION: There is now obscuration of the left hemidiaphragm, presumably as a result of pleural effusion with atelectasis or consolidation. CONSULT PROG Observed: 03/10/2018 Status: COMPLETED Source: [place] 11:43 AM CLINIC OTHER CAMPUS REPOSITORY HNO ID: [id number] Author: Guillermina Umana Service: Neurology Author Type: Physician Type: Consult Progress Note Filed: 03/10/2018 5:53 PM Note Text: NEUROLOGY CONSULT PROGRESS NOTE SERVICE DATE: 03/10/2018 SERVICE TIME: 11:43 AM Current Attending Provider: Beata Marin Subjective Interval History: Today, Jeffrey is not changed. Neurologically unchanged. Just returned from LP and repeat CTH. Objective Physical Examination: Neurological: ? Mental Status: Does not awaken to verbal or painful stimuli. He does not follow commands. Cranial Nerves: CNII: Does not blink to visual threat. CNIII, IV, : Pupils equal, round and reactive to light. No visual tracking. CN V: Unable to assess. CN VII: No noted facial droop CN VIII: Could not be assessed. CN IX: Gag Reflex Not Examined CN X: Cough intact CN XI: Could not be assessed. ? CN XII: Could not be assessed. Motor Exam: ? Muscle Tone: Normal ? Strength today in the bilateral extremities is not changed. Proximal muscle weakness in BL upper extremities. ? Reflexes: Not tested. ? Sensation: Intact to pin-prick [pain]. ? Coordination: Unable to assess. ? Gait: Patient is unable to ambulate. New Labs: WBC (thou/cmm) Date Value 03/09/2018 5.65 03/06/2018 7.12 03/03/2018 8.16 RBC (mil/cmm) Date Value 03/09/2018 3.12 03/06/2018 2.98 03/03/2018 3.49 Platelet Count (thou/cmm) Date Value 03/09/2018 196 03/06/2018 234 03/03/2018 294 BUN (mg/dL) Date Value 03/08/2018 29 03/06/2018 47 03/04/2018 30 Creatinine (mg/dL) Date Value 03/08/2018 0.81 03/06/2018 0.83 03/04/2018 1.00 CBC, Coags, BMP, Mg, Phos Recent Labs 03/09/18 0840 03/08/18 1315 INR 1.15 -- NA -- 136 K -- 3.9 CHLOR -- 101 CO2 -- 30 GLUC -- 96 CA -- 7.6* DATA: Diagnostic tests reviewed for today's visit: Most recent labs and imaging results. Blood cultures: Gram - bacilli x2 bottles CTH: No acute interval change. Impression/Recommendations Encephalopathy: Likely multifactorial, metabolic vs. Infectious. - MRI T-spine and C-spine negative - Blood cultures growing gram negative bacilli on meropenem. ID following. - Continue valproic acid - Avoid sedatives, anticholinergics, antihistamines - LP done- await results Will continue to follow. SIGNATURE: Suzanne Prasad PA-C PATIENT NAME: Jeffrey Cullen DATE: March 10, 2018 TIME: 11:43 AM PAGER/CONTACT #: THE NEURO ICU MANAGEMENT OF THIS PATIENT WAS DISCUSSED WITH THE NSICU TEAM UNDER DR. Umana I have reviewed the progress note obtained and documented by the physician patent legal assistant, Suzanne Prasad. I personally participated in the hernandez components. I have discussed the management of the patient's care. The following comments revise or confirm relevant hernandez components of the note. I have repeated the examination and confirm the findings except as documented. PATIENT PROBLEMS I REVIEWED, REVISED AND/OR INITIATED: The care of this patient required my full attention and direct personal management of: Active Problems: NSTEMI (non-ST elevated myocardial infarction) (HCC) NSVT (nonsustained ventricular tachycardia) (HCC) Nicotine use disorder, F17.2 Malnutrition of moderate degree (HCC) Encephalopathy Weakness Resolved Problems: * No resolved hospital problems. * PLAN, IMPRESSION AND ACTION(S) TAKEN Please see the documented rczlad-wi-[id number] plan in the updated problem list. Guillermina Umana MD Staff, Neurointensive Care [facility] [place] Date of Service: 03/10/2018 Time of Service: 5:52 PM This is an electronically created document. If printed, please do not remove from the chart or modify printed copy. Observed: 03/10/2018 Status: F Source: [facility] CULT AND SMR BODY 11:30 AM HEALTH SYSTEM FLUID REPOSITORY Test performed at [facility] No growth No organisms seen Performed By: #### C_BF #### [place] [id number] PROGRESS Observed: 03/10/2018 Status: COMPLETED Source: [place] 11:00 AM CLINIC OTHER CAMPUS REPOSITORY HNO ID: [id number] Author: Paulette Aguilar Service: Critical Care Author Type: Physician Type: Progress Notes Filed: 03/11/2018 10:51 AM Note Text: MICU - PROGRESS NOTE SERVICE DATE: 03/10/2018 SERVICE TIME: 11:00 AM Admission Date: 02/07/2018 AGE: [age] year old LOS: 31 days REASON FOR ICU ADMISSION: Acute respiratory failure, acute encephalopathy Subjective HPI/Interval history: Had LP this AM; required rocuronium/propofol to proceed Still encephalopathic GNR in blood; Febrile O/N Objective VITAL SIGNS (last 24hrs min/max): Temp Av.3 ?C (99.1 ?F) Min: 36.4 ?C (97.5 ?F) Max: 37.7 ?C (99.9 ?F) Pulse Av.9 Min: 86 Max: 127 No Data Recorded Cuff BP Min: 79/51 Max: 182/153 Pain Score: 7/10 Vital signs reviewed. BP 96/60 Pulse 82 Temp (Src) 98.6 (High Thermistor) Resp 18 Ht 5' 10.984 (1.80m) Wt 211 lb 10.3 oz (96.0kg) SpO2 98% BMI 29.53 kg/(m2). Temp (24hrs), Av.2 ?C (99 ?F), Min:36.2 ?C (97.2 ?F), Max:38.1 ?C (100.6 ?F) NET FLUID BALANCE Intake/Output Summary (Last 24 hours) at 03/10/18 2300 Last data filed at 03/10/18 2200 Gross per 24 hour Intake 690 ml Output 1036 ml Net -346 ml MEDICATIONS Current Facility-Administered Medications: meropenem 1 g in sterile water 20 mL (MERREM) 1 g INTRAVENOUS q 8 H perflutren lipid microspheres 1.1 mg/mL 1.3 mL injection (DEFINITY) 1.3 mL INTRAVENOUS PRN(NO DISPENSE) dilTIAZem 100 mg in D5W 100 mL ADD-Boyden (CARDIZEM) 5-15 mg/hr INTRAVENOUS CONTINUOUS diltiazem 60 mg tab(s) (CARDIZEM) 60 mg NASOGASTRIC q 6 H haloperidol lactate 5 mg oral liquid (HALDOL) 5 mg ORAL q 6 HR propofol infusion (DIPRIVAN) 10-50 mcg/kg/min INTRAVENOUS CONTINUOUS valproic acid 500 mg CUP (DEPAKENE) 500 mg ORAL q 8 H thiamine 100 mg tab(s) (VITAMIN B1) 100 mg ORAL DAILY melatonin 6 mg tab(s) 6 mg ORAL AT BEDTIME pantoprazole 40 mg injection (PROTONIX) 40 mg INTRAVENOUS DAILY (6 AM) metoclopramide HCl 10 mg injection (REGLAN) 10 mg INTRAVENOUS q 6 H PRN fentaNYL 50 mcg/mL 50 mcg injection (SUBLIMAZE) 50 mcg INTRAVENOUS q 2 H PRN ipratropium-albuterol 3 mL nebulizer solution (DUONEB) 3 mL INHALATION QID aspirin 81 mg chewable tab(s) 81 mg ORAL DAILY metoprolol tartrate (short acting) 100 mg tab(s) (LOPRESSOR) 100 mg ORAL q 8 H 0.9% NaCl 20 mL 20 mL INTRAVENOUS PRN 0.9% NaCl 10 mL 10 mL INTRAVENOUS q 12 H bisacodyl 10 mg suppository (DULCOLAX) 10 mg RECTAL DAILY PRN polyethylene glycol 3350 17 g packet (MIRALAX, GLYCOLAX) 17 g ORAL DAILY senna-docusate 8.6-50 mg 1 tablet (SENNA-S) 1 tablet ORAL BID pill splitter (patient-specific) 1 Each Miscell. (Med.Supl.;Non- Drugs) PRN Chlorhexidine Gluconate 0.12 % 15 mL (PERIDEX) 15 mL ORAL q 12 H budesonide 0.5 mg/2 mL 1 mg (PULMICORT) 1 mg INHALATION BID acetaminophen 650 mg tab(s) (TYLENOL) 650 mg ORAL q 6 H PRN potassium chloride iv piggyback 20 mEq in sterile water 100 mL 20 mEq INTRAVENOUS PRN magnesium sulfate in water 2 g in sterile water 50 ml 2 g INTRAVENOUS PRN(NO DISPENSE) albuterol 2.5 mg /3 mL (0.083 %) 2.5 mg (PROVENTIL) 2.5 mg INHALATION q 2 H PRN calcium chloride 1 g in D5W 100 mL 1 g INTRAVENOUS PRN(NO DISPENSE) oxyCODONE-acetaminophen 5-325 mg 1-2 tablet (PERCOCET) 1-2 tablet ORAL q 4 H PRN ondansetron (PF) 4 mg injection (ZOFRAN) 4 mg INTRAVENOUS q 6 H PRN atorvastatin 40 mg tab(s) (LIPITOR) 40 mg ORAL AT BEDTIME Lines, Drains, and Airways Line Central Line Double Lumen 02/17/18 1310 Peripherally Inserted (PICC) Right Arm 5.0 Vietnamese 21 days Drain Indwelling Urinary Catheter 02/09/18 0838 Temperature Monitoring 16 Fr 29 days GI Feed/Drain 02/22/18 1336 Gastrostomy-Jejunostomy (G-J) Abdomen 18 Fr 16 days Airway Airway Tracheostomy 02/22/18 16 days Respiratory/Nursing Documentation: O2 Therapy: Ventilator (03/10/182109) Invasive Ventilator Mode: Pressure Regulated Volume Control (03/10/182109) Set Ventilator Respiratory Rate (BPM): 16 (03/10/182109) Total Respiratory Rate (BPM): 20 (03/10/182109) Tidal Volume Set (mL): 550 (03/10/182109) Exhaled Tidal Volume (mL): 681 (03/10/182109) Minute Volume (L): 10.7 (03/10/182109) Peak Inspiratory Pressure (cm H2O): 20 (03/10/182109) PEEP/CPAP (cm H2O): 5 (03/10/182109) PHYSICAL EXAMINATION: Constitutional: Vitals-reviewed and noted above. General appearance- Sedated and breathing comfortably on the vent; not as restless (still post paralytic/sedation) Eyes: Anicteric; pupils reactive Trach secured Cardiovascular: RRR Respiratory: Vent sounds appreciated, CTAB GI/Abdominal: soft, BS+ Neuro: Still grimacing to even mild touch of UE DATA: All data reviewed, including, but not limited to, data noted below. All diagnostic tests, including labs/specimens, EKGs, and imaging, were personally reviewed by me. CULTURES: CXR FINDINGS: 03/06: FINDINGS: The tracheostomy tube appears stable. ?There is a stable appearing right ?central venous catheter with its tip in the right atrium. ?There is no visible pneumothorax and the lungs are otherwise clear. ?Heart is nonenlarged. ?Sternotomy ?wires are noted. OTHER DIAGNOSTICS/ IMAGIN/11: MRI Cspine and Tspine: No sig abnormality Impression/Recommendations Critical Care Documentation: The patient has the following organ/system impairment(s): # Severe ongoing ncephalopathy, severe motor restlessness, cognitive impairments; UE notable weakness and pain- No obvious source of toxic metabolic; MRI C-spine and T-spine normal; not explained full by severe ICU delirium; ?viral encephalitis (?enterovirus) vs subacute meningitis # Acute, now chronic (3 wks) respiratory failure with trach, prolonged vent; on PRVC w/ better synchrony # GNR bacteremia ? VAP or line sepsis? # Afib with rvr - rate controlled; now NSR # s/o CABG POD 29 # Copd FEV1 69% preop # Mild anemia after prolonged icu course # LLL atelectasis-improved # Hypoalbuminemia/ Severe protein calorie malnutrition PLAN: - Discussed w/ ID (Dr. Carrera) at length; Starting Meropenem 1g IV q8 - LP sent for AFB smear/cx, fungal culture, Meningeal film array (includes listeria), Enteroviral culture and cryptococcal Ag - Repeat BCx today - CXR and resp Cx - May need CT chest/ AP - Cont standing haldol 5mg IV q6hr - Follow EKGs QT monitoring - C/w Valproic acid per neurology - Wean propofol to RASS 0 - Limit Benzos - Cont Fentanyl prn q2hr for pain control/tachypnea - Duonebs q4h - D/c daily lasix - ASA/stain/BB - Eliquis (DVT prophy also) -Resume tmw - Ongoing encephalopathy posing as sig barrier to vent liberation - Thiamine - LTAC planning underway once diagnostic W/U complete/ more stable Prognosis: Guarded Code Status: Full Patient/Family Updated: Family not present, attempted to call daughter-->voicemail This patient has a high probability of sudden, clinically significant deterioration, which requires the highest level of physician preparedness to intervene urgently. I managed/supervised life or organ supporting interventions that required frequent physician assessment. I devoted my full attention to the direct care of this patient for the amount of time indicated below. Time I spent with family or surrogate(s) is included only if the patient was incapable of providing the necessary information or participating in medical decision making. Time devoted to teaching and to any procedures I billed separately is not included. Discussed with staff. Time spent providing critical care services: 38 minutes, excluding procedures. SIGNATURE: Paulette Aguilar MD [facility] DATE of SERVICE: March 10, 2018 TIME of SERVICE: 11:00 AM LUMBAR PUNCTURE Observed: 03/10/2018 Status: F Source: [facility] 9:42 AM HEALTH SYSTEM REPOSITORY Performed at [facility] APPROVED BY: Jose Myles MD LUMBAR PUNCTURE UNDER FLUOROSCOPIC GUIDANCE A lumbar puncture was performed under fluoroscopic guidance utilizing a standard 22-gauge spinal needle and sterile technique without complication. The procedure was performed to further evaluate decre ased level of consciousness. Fluoroscopy Time: 0.1 minutes Dose Area Prod.: 17 uGy*m2 Approximately 12 mL of clear cerebrospinal fluid was obtained for laboratory analysis. The opening pressure measured approximately 30-31 cm of water. IMPRESSION: Status post lumbar puncture under fluoroscopic guidance as described above. [facility] [place]. SEND OUT Collected: 03/10/2018 Status: F Source: [facility] 9:08 AM HEALTH SYSTEM REPOSITORY TYPE CODE TESTS RESULT OUT OF REFERENCE UNITS RANGE LAB NAME1(LOIN C) Test Name Meningeal Film LAB RES(LOINC) See Result Below Result Comment: RESULT:NEGATIVE: No organisms were detected. The Film Assay Meningitis/Encephalitis Panel detects DNA or RNA for the following organisms: BACTERIAL: Escherichia coli Haemophilus influenzae Listeria monocytogenes Neisseria meningitidis Streptociccus agalactiae Streptococcus pneumoniae VIRAL: Cytomegalovirus(CMV) Entervovirus Herpes simplex virus 1 (HSV-1) Herpes simplex virus 2 (HSV-2) Human herpesvirus 6 (HHV-6) Human Parechovirus Varicella-zoster virus (VZV) FUNGAL: Cryptococcus neoformans/sukhjinder LAB ADDR(LOINC) Lab Name/Address See below Result Comment: Testing performed at [facility] [place] [address] Performed By: #### MISC2 #### [place] [address] Observed: 03/10/2018 Status: F Source: [facility] CRYPTOCOCCAL ANTIGEN 9:00 AM HEALTH SYSTEM REPOSITORY Test performed at [facility] Negative Performed By: #### CRY #### [place] [address] CSF CELL COUNT/DIFF Collected: 03/10/2018 Status: F Source: [facility] 9:00 AM HEALTH SYSTEM REPOSITORY TYPE CODE TESTS RESULT OUT OF REFERENCE UNITS RANGE LAB CSFAP([facility] NC) CSF Appearance Clear LAB CSFCO([facility] NC) CSF Color Colorless LAB XANTH([facility] [place]) Xanthochromia No xantho LAB TOTAL(ADAM ml NC) Total Volume CSF 12.0 LAB VIAL#([facility] NC) Vial# 3 LAB CSFRB(ADAM 0 /cmm NC) CSF/RBC 0 LAB CSFWB([facility] 0-5 /cmm NC) CSF/WBC 0 LAB CSFSE([facility] % NC) CSF/Seg see below Result Comment: No differential required, nucleated cell count < 6. Performed By: #### CSFCD #### [place] [address] GLUCOSE,CSF Collected: 03/10/2018 Status: F Source: [facility] 9:00 AM HEALTH SYSTEM REPOSITORY TYPE CODE TESTS RESULT OUT OF RANGE REFERENCE UNITS LAB CSFGL(LOINC 60-70% of blood mg/dl ) sugar. 57 Glucose,CSF Performed By: #### CSFGL #### [place] [address] PROTEIN CSF Collected: 03/10/2018 Status: F Source: [facility] 9:00 AM HEALTH SYSTEM REPOSITORY TYPE CODE TESTS RESULT OUT OF REFERENCE UNITS RANGE LAB CSFPR(LOINC 15-45 mg/dL ) Protein CSF 39 Performed By: #### CSFPR #### [facility] [address] [place] [address] Observed: 03/10/2018 Status: F Source: [facility] [employer] 8:45 AM HEALTH SYSTEM (TB) REPOSITORY Test performed at [facility] No acid fast bacilli cultured No acid fast bacilli seen Performed By: #### C_AFB #### [facility] [address] [place] [address] Observed: 03/10/2018 Status: F Source: [facility] CULT FUNGAL 8:45 AM HEALTH SYSTEM REPOSITORY Test performed at [facility] No fungus (yeast or mold) cultured Performed By: #### C_FUN #### [facility] [address] [place] [address] [address] HEAD W/O CONTRAST Observed: 03/10/2018 Status: F Source: [facility] [employer] 8:24 AM HEALTH SYSTEM REPOSITORY Performed at [facility] APPROVED BY: Jose Myles MD Addendum Begins * * * * * * * * ORIGINAL REPORT * * * * * * * * BRAIN CT WITHOUT CONTRAST ENHANCEMENT Serial transverse images of the brain were obtained without contrast material. The study was performed beyond 24 hours of arrival to evaluate decreased level of consciousness. CT Dose-Length Product (DLP): 828 mGy*cm CT Dose Reduction Employed: 5 Serial images demonstrate no definite evidence of acute infarction, hemorrhage, mass lesion, or midline shift. The overall size of the ventricular system is within normal limits. IMPRESSION: No acute abnormality as described above. * * * * * * * * ADDENDUM #1 * * * * * * * * No dose reduction techniques were required. Addendum Ends BRAIN CT WITHOUT CONTRAST ENHANCEMENT Serial transverse images of the brain were obtained without contrast material. The study was performed beyond 24 hours of arrival to evaluate decreased level of consciousness. CT Dose-Length Product (DLP): 828 mGy*cm CT Dose Reduction Employed: 5 Serial images demonstrate no definite evidence of acute infarction, hemorrhage, mass lesion, or midline shift. The overall size of the ventricular system is within normal limits. IMPRESSION: No acute abnormality as described above. PROGRESS Observed: 03/09/2018 Status: COMPLETED Source: [place] 4:21 PM CLINIC OTHER CAMPUS REPOSITORY HNO ID: [id number] Author: Guillermina Umana Service: Critical Care Author Type: Physician Type: Progress Notes Filed: 03/09/2018 4:23 PM Note Text: NeuroICU COnsult Note: Pt. seen on f/u today. Neurologically unchanged. Continues to wake up intermittently. no visual tracking. No nodding to n=y/n quesitons, and not able to follow any motor commands. Persistent distal motor weakness in the UE bilat is unchanged. MRI Cerv and Thor. Spine was unremarkable. Pt. evaluated by ID, who concurs that LP is indicated. Pt. to undergo LP under fluroscopy tomorrow. Guillermina Umana MD March 09, 2018 PROGRESS Observed: 03/09/2018 Status: COMPLETED Source: [place] 4:13 PM [facility] OTHER CAMPUS REPOSITORY HNO ID: [id number] Author: Beata Marin Service: Cardiovascular Surgery Author Type: Physician Type: Progress Notes Filed: 03/09/2018 4:47 PM Note Text: CARDIOTHORACIC SURGERY POSTOP PROGRESS NOTE SERVICE DATE: 03/09/2018 SERVICE TIME: 4:13 PM Subjective LOS: 30 INTERVAL EVENTS / PERTINENT ROS: Needs LP. No new events today. Objective Admission Weight: 104.3 kg (229 lb 15 oz) BP 106/82 Pulse 93 Temp 38.2 ?C (100.8 ?F) (Core) Resp 23 Ht 180.3 cm (5' 10.98) Wt 100.3 kg (221 lb 1.9 oz) SpO2 97% BMI 30.85 kg/m2 Body surface area is 2.24 meters squared. Min/Max/Average Temperature AND Blood Pressure: Temp (24hrs), Av.6 ?C (99.7 ?F), Min:36.7 ?C (98.1 ?F), Max:38.2 ?C (100.8 ?F) Systolic (24hrs), Av , Min:82 , Max:139 Diastolic (24hrs), Av, Min:47, Max:114 Intake/Output Summary (Last 24 hours) at 03/09/18 1613 Last data filed at 03/09/18 1500 Gross per 24 hour Intake 2194 ml Output 832 ml Net 1362 ml Current Facility-Administered Medications: - perflutren lipid microspheres 1.1 mg/mL 1.3 mL injection (DEFINITY) - dilTIAZem 100 mg in D5W 100 mL ADD-Boyden (CARDIZEM) - diltiazem 60 mg tab(s) (CARDIZEM) - haloperidol lactate 5 mg oral liquid (HALDOL) - propofol infusion (DIPRIVAN) - valproic acid 500 mg CUP (DEPAKENE) - thiamine 100 mg tab(s) (VITAMIN B1) - melatonin 6 mg tab(s) - pantoprazole 40 mg injection (PROTONIX) - metoclopramide HCl 10 mg injection (REGLAN) - furosemide 40 mg tab(s) (LASIX) - fentaNYL 50 mcg/mL 50 mcg injection (SUBLIMAZE) - ipratropium-albuterol 3 mL nebulizer solution (DUONEB) - aspirin 81 mg chewable tab(s) - metoprolol tartrate (short acting) 100 mg tab(s) (LOPRESSOR) - 0.9% NaCl 20 mL - 0.9% NaCl 10 mL - bisacodyl 10 mg suppository (DULCOLAX) - polyethylene glycol 3350 17 g packet (MIRALAX, GLYCOLAX) - senna-docusate 8.6-50 mg 1 tablet (SENNA-S) - pill splitter (patient-specific) - Chlorhexidine Gluconate 0.12 % 15 mL (PERIDEX) - budesonide 0.5 mg/2 mL 1 mg (PULMICORT) - acetaminophen 650 mg tab(s) (TYLENOL) - potassium chloride iv piggyback 20 mEq in sterile water 100 mL - magnesium sulfate in water 2 g in sterile water 50 ml - albuterol 2.5 mg /3 mL (0.083 %) 2.5 mg (PROVENTIL) - calcium chloride 1 g in D5W 100 mL - oxyCODONE-acetaminophen 5-325 mg 1-2 tablet (PERCOCET) - ondansetron (PF) 4 mg injection (ZOFRAN) - atorvastatin 40 mg tab(s) (LIPITOR) TELEMETRY: normal sinus rhythm PHYSICAL EXAM: General Appearance: well developed and calm now. restless at times. Skin: Midsternal incision dry AND intact. and SVG incisions dry AND intact. Lungs: decreased breath sounds and respiratory effort: normal Heart: regular rhythm and S1, S2 normal Lines, Drains, and Airways Line Central Line Double Lumen 02/17/18 1310 Peripherally Inserted (PICC) Right Arm 5.0 Vietnamese 20 days Drain Indwelling Urinary Catheter 02/09/18 0838 Temperature Monitoring 16 Fr 28 days GI Feed/Drain 02/22/18 1336 Gastrostomy-Jejunostomy (G-J) Abdomen 18 Fr 15 days Airway Airway Tracheostomy 02/22/18 15 days DATA: Diagnostic tests reviewed for today's visit: Recent Labs 03/09/18 0840 03/08/18 1315 RBC 3.12* -- WBC 5.65 -- HB 9.8* -- HCT 31.0* -- PLT 196 -- INR 1.15 -- NA -- 136 K -- 3.9 CHLOR -- 101 CO2 -- 30 BUN -- 29* CREAT -- 0.81 GLUC -- 96 CA -- 7.6* ANION -- 9 Recent Labs 03/09/18 1410 UPH 5.5 SPGR 1.029 UGLUC NEGATIVE UBILI NEGATIVE UKET TRACE* UPROT TRACE* Assessment/Plan Acute NSTEMI s/p CABG x 3 -POD#28 -c/w ASA, statin, BB -Check post op ECHO per Dr. Marin ?? Acute hypoxic AND hypercapneic respiratory failure 2/2 severe COPD -s/p tracheostomy -Vent wean per ICU team ?? Paroxysmal Afib/Aflutter -Rates better controlled on increased dose of diltiazem -c/w Metoprolol AND Diltiazem -c/w Eliquis for OAC ?? Acute encephalopathy -Neuro following -MRI C-spine and T-spine negative. -Needs LP to assess for infection. Appreciate ID assistance. ?? Volume Overload -I>O still. -c/w?lasix 40mg PO BID and additional dose of lasix today per Dr. Marin -Monitor ARLINE Wilkins for strict IANDO SIGNATURE: Clementine Owen APRN.[employer] PATIENT NAME: Jeffrey Cullen DATE: March 09, 2018 TIME: 4:13 PM PAGER/CONTACT #: [phone] [phone] Patient seen with PUBLIC ADDRESS SERVICER this AM. Labs, data, and careplan and neuro W/U discussed. Nothing to add from CT surg standpoint. PROGRESS Observed: 03/09/2018 Status: COMPLETED Source: [place] 3:30 PM CLINIC OTHER CAMPUS REPOSITORY HNO ID: [id number] Author: Paulette Benbreezysophie Service: Critical Care Author Type: Physician Type: Progress Notes Filed: 03/09/2018 7:21 PM Note Text: MICU - PROGRESS NOTE SERVICE DATE: 03/09/2018 SERVICE TIME: 3:13 PM Admission Date: 02/07/2018 AGE: [age] year old LOS: 30 days REASON FOR ICU ADMISSION: Acute respiratory failure, acute encephalopathy Subjective HPI/Interval history: Still ongoing encephalopathy Still grimacing even w/ slight palpation of UE Tachypneic on vent though slightly less On propofol and fentanyl gtt Objective VITAL SIGNS (last 24hrs min/max): Temp Av.3 ?C (99.1 ?F) Min: 36.4 ?C (97.5 ?F) Max: 37.7 ?C (99.9 ?F) Pulse Av.9 Min: 86 Max: 127 No Data Recorded Cuff BP Min: 79/51 Max: 182/153 Pain Score: 7/10 Vital signs reviewed. BP 102/64 Pulse 93 Temp (Src) 100.2 (Core) Resp 22 Ht 5' 10.984 (1.80m) Wt 221 lb 1.9 oz (100.3kg) SpO2 96% BMI 30.85 kg/(m2). Temp (24hrs), Av.7 ?C (99.8 ?F), Min:36.7 ?C (98.1 ?F), Max:38.2 ?C (100.8 ?F) NET FLUID BALANCE Intake/Output Summary (Last 24 hours) at 03/09/18 1900 Last data filed at 03/09/18 1857 Gross per 24 hour Intake 2949 ml Output 1044 ml Net 1905 ml MEDICATIONS Current Facility-Administered Medications: perflutren lipid microspheres 1.1 mg/mL 1.3 mL injection (DEFINITY) 1.3 mL INTRAVENOUS PRN(NO DISPENSE) dilTIAZem 100 mg in D5W 100 mL ADD-Boyden (CARDIZEM) 5-15 mg/hr INTRAVENOUS CONTINUOUS diltiazem 60 mg tab(s) (CARDIZEM) 60 mg NASOGASTRIC q 6 H haloperidol lactate 5 mg oral liquid (HALDOL) 5 mg ORAL q 6 HR propofol infusion (DIPRIVAN) 10-50 mcg/kg/min INTRAVENOUS CONTINUOUS valproic acid 500 mg CUP (DEPAKENE) 500 mg ORAL q 8 H thiamine 100 mg tab(s) (VITAMIN B1) 100 mg ORAL DAILY melatonin 6 mg tab(s) 6 mg ORAL AT BEDTIME pantoprazole 40 mg injection (PROTONIX) 40 mg INTRAVENOUS DAILY (6 AM) metoclopramide HCl 10 mg injection (REGLAN) 10 mg INTRAVENOUS q 6 H PRN furosemide 40 mg tab(s) (LASIX) 40 mg ORAL BID 9a/5p fentaNYL 50 mcg/mL 50 mcg injection (SUBLIMAZE) 50 mcg INTRAVENOUS q 2 H PRN ipratropium-albuterol 3 mL nebulizer solution (DUONEB) 3 mL INHALATION QID aspirin 81 mg chewable tab(s) 81 mg ORAL DAILY metoprolol tartrate (short acting) 100 mg tab(s) (LOPRESSOR) 100 mg ORAL q 8 H 0.9% NaCl 20 mL 20 mL INTRAVENOUS PRN 0.9% NaCl 10 mL 10 mL INTRAVENOUS q 12 H bisacodyl 10 mg suppository (DULCOLAX) 10 mg RECTAL DAILY PRN polyethylene glycol 3350 17 g packet (MIRALAX, GLYCOLAX) 17 g ORAL DAILY senna-docusate 8.6-50 mg 1 tablet (SENNA-S) 1 tablet ORAL BID pill splitter (patient-specific) 1 Each Miscell. (Med.Supl.;Non- Drugs) PRN Chlorhexidine Gluconate 0.12 % 15 mL (PERIDEX) 15 mL ORAL q 12 H budesonide 0.5 mg/2 mL 1 mg (PULMICORT) 1 mg INHALATION BID acetaminophen 650 mg tab(s) (TYLENOL) 650 mg ORAL q 6 H PRN potassium chloride iv piggyback 20 mEq in sterile water 100 mL 20 mEq INTRAVENOUS PRN magnesium sulfate in water 2 g in sterile water 50 ml 2 g INTRAVENOUS PRN(NO DISPENSE) albuterol 2.5 mg /3 mL (0.083 %) 2.5 mg (PROVENTIL) 2.5 mg INHALATION q 2 H PRN calcium chloride 1 g in D5W 100 mL 1 g INTRAVENOUS PRN(NO DISPENSE) oxyCODONE-acetaminophen 5-325 mg 1-2 tablet (PERCOCET) 1-2 tablet ORAL q 4 H PRN ondansetron (PF) 4 mg injection (ZOFRAN) 4 mg INTRAVENOUS q 6 H PRN atorvastatin 40 mg tab(s) (LIPITOR) 40 mg ORAL AT BEDTIME Lines, Drains, and Airways Line Central Line Double Lumen 02/17/18 1310 Peripherally Inserted (PICC) Right Arm 5.0 Vietnamese 20 days Drain Indwelling Urinary Catheter 02/09/18 0838 Temperature Monitoring 16 Fr 28 days GI Feed/Drain 02/22/18 1336 Gastrostomy-Jejunostomy (G-J) Abdomen 18 Fr 15 days Airway Airway Tracheostomy 02/22/18 15 days Respiratory/Nursing Documentation: O2 Therapy: Ventilator (03/09/18 1800) Invasive Ventilator Mode: Pressure Control Ventilation (03/09/181717) Set Ventilator Respiratory Rate (BPM): 15 (03/09/181717) Total Respiratory Rate (BPM): 29 (03/09/181717) Tidal Volume Set (mL): 550 (03/08/18 0800) Exhaled Tidal Volume (mL): 559 (03/09/18 1150) Minute Volume (L): 16 (03/09/181717) Peak Inspiratory Pressure (cm H2O): 21 (03/09/181717) PEEP/CPAP (cm H2O): 5 (03/09/181717) PHYSICAL EXAMINATION: Constitutional: Vitals-reviewed and noted above. General appearance- Restless, moving in bed, mainly LE. Eyes: Anicteric; pupils reactive Trach secured Cardiovascular: RRR Respiratory: Vent sounds appreciated, CTAB GI/Abdominal: soft, BS+ Neuro: Grimacing to even mild touch of UE DATA: All data reviewed, including, but not limited to, data noted below. All diagnostic tests, including labs/specimens, EKGs, and imaging, were personally reviewed by me. CULTURES: CXR FINDINGS: 03/06: FINDINGS: The tracheostomy tube appears stable. ?There is a stable appearing right ?central venous catheter with its tip in the right atrium. ?There is no visible pneumothorax and the lungs are otherwise clear. ?Heart is nonenlarged. ?Sternotomy ?wires are noted. OTHER DIAGNOSTICS/ IMAGIN/11: MRI Cspine and Tspine: No sig abnormality Impression/Recommendations Critical Care Documentation: The patient has the following organ/system impairment(s): # Severe encephalopathy, severe motor restlessness, cognitive impairments; UE notable weakness and pain- No obvious source of toxic metabolic; MRI C-spine and T-spine normal; ?severe ICU delirium; ?viral encephalitis (?enterovirus) vs subacute meningitis # Acute, now chronic (3 wks) respiratory failure with trach, prolonged vent; on AC/PC w/ better synchrony; still intermittent tachypnea # Afib with rvr - rate controlled; now NSR # s/o CABG POD 28 # Copd FEV1 69% preop # Mild anemia after prolonged icu course # LLL atelectasis-improved # Hypoalbuminemia/ Severe protein calorie malnutrition PLAN: - Discussed w/ ID and neurology; LP tomorrow (per IR will get CT head first followed by LP; coordinated); holding eliquis - Cont standing 5mg IV q6hr - Follow EKGs QT monitoring - C/w Valproic acid per neurology - Wean propofol to RASS 0 - Limit Benzos - Cont Fentanyl prn q2hr for pain control/tachypnea - Duonebs q4h - Daily lasix; tolerating - ASA/stain/BB - Eliquis (DVT prophy also) -holding for LP - Ongoing encephalopathy posing as sig barrier to vent liberation - Thiamine - LTAC planning underway once diagnostic W/U complete Prognosis: Guarded Code Status: Full Patient/Family Updated: Family not present This patient has a high probability of sudden, clinically significant deterioration, which requires the highest level of physician preparedness to intervene urgently. I managed/supervised life or organ supporting interventions that required frequent physician assessment. I devoted my full attention to the direct care of this patient for the amount of time indicated below. Time I spent with family or surrogate(s) is included only if the patient was incapable of providing the necessary information or participating in medical decision making. Time devoted to teaching and to any procedures I billed separately is not included. Discussed with staff. Time spent providing critical care services: 35 minutes, excluding procedures. SIGNATURE: Paulette Aguilar MD [facility] DATE of SERVICE: March 09, 2018 TIME of SERVICE: 3:31 PM Observed: 03/09/2018 Status: F Source: [facility] BLOOD 2:30 PM HEALTH SYSTEM REPOSITORY Test performed at [facility] Gram stain bottle I: Gram negative bacilli Gram stain bottle II: Gram negative bacilli ORGANISM: Klebsiella oxytoca (ID: 1) cultured in both bottles Performed By: #### C_BLO #### [facility] [address] [id number] URINALYSIS, REFLEX Collected: 03/09/2018 Status: F Source: [facility] 2:10 PM HEALTH SYSTEM REPOSITORY TYPE CODE TESTS RESULT OUT OF RANGE REFERENCE UNITS LAB COLOR(LOIN C) Urine Color YELLOW LAB APPUR(LOIN C) Urine Appearance CLEAR LAB GLUUR(LOIN Negative mg/dL C) Glucose Urine NEGATIVE LAB KETON(LOIN Negative mg/dL C) Abnormal Ketone Urine TRACE LAB HGBUR(LOIN Negative C) Hemoglobin,Urin NEGATIVE e LAB PROTU(LOIN Negative mg/dL C) Abnormal Protein Urine TRACE LAB NITR(LOINC Negative ) Nitrite reflex NEGATIVE LAB BILIU(LOIN Negative C) Bilirubin Urine NEGATIVE LAB SPG(LOINC) 1.005-1.030 Specific 1.029 Twilight, Ur LAB PHUR(LOINC 5.0-8.0 ) pH,Urine 5.5 LAB UROBI(LOIN 0.0-1.0 EU/dL C) Urobilinogen,Ur 1.0 LAB LEUKR(LOIN Negative C) Abnormal Leukocyte TRACE esterase LAB RBCU1(LOIN 0.0-5.0 /hpf C) High RBC,Urine 6.6 LAB WBCR(LOINC 0.00-5.00 /hpf ) WBC, reflex 4.90 LAB EPIT1(LOIN 0.0-5.0 /hpf C) Ep Cells Urine 0.5 LAB BACT1(LOIN None C) Bacteria Urine NONE LAB HYCA1(LOIN 0.0-1.0 /lpf C) Hyaline Cast 0.4 LAB REFLX(LOIN C) Reflex Comment see below Result Comment: Reflex to culture is not indicated based on established laboratory criteria. Performed By: #### URIN #### [facility] [address] [id number] PROCALCITONIN Collected: 03/09/2018 Status: F Source: [facility] 2:10 PM HEALTH SYSTEM REPOSITORY TYPE CODE TESTS RESULT OUT OF REFERENCE UNITS RANGE LAB PRCAS(LOIN ng/mL C) Procalcitonin 0.83 Result Comment: Levels <0.50 ng/mL represent a low risk of severe sepsis and/or septic shock, while levels >2.00 ng/mL represent an elevated risk of severe sepsis and/or septic shock. Levels <0.50 ng/mL do not exclude infection, as infections or systemic infections in early stages (<6hrs) can be associated with low concentrations. Levels between 0.50-2.00 ng/mL should be interpreted in the clinical context of the patient, as a variety of conditions such as antunez, trauma, surgery and severe cardiogenic shock can cause procalcitonin elevations. Performed By: #### PRCAS #### [place] [id number] Observed: 03/09/2018 Status: F Source: [facility] CRYPTOCOCCAL ANTIGEN 2:10 PM HEALTH SYSTEM REPOSITORY Test performed at [facility] Negative Performed By: #### CRY #### [place] [id number] Observed: 03/09/2018 Status: F Source: [facility] CULT BLOOD 2:00 PM HEALTH SYSTEM REPOSITORY Test performed at [facility] Gram stain bottle I: Gram negative bacilli Gram stain bottle II: Gram negative bacilli ORGANISM: Klebsiella oxytoca (ID: 1) cultured in both bottles For sensitivity report see Date/ Performed By: #### C_BLO #### [place] [id number] CONSULT Observed: 03/09/2018 Status: COMPLETED Source: [place] 1:07 PM CLINIC OTHER [place] REPOSITORY HNO ID: [id number] Author: Juan Carrera Service: Infectious Disease Author Type: Physician Type: Consults Filed: 03/09/2018 1:09 PM Note Text: Needs LP if you want to check for encephalitis or subacute meningitis; d/w nsic Juan Carrera MD 03/09/2018 1:09 PM pgr [id number] NUTRITION Observed: 03/09/2018 Status: COMPLETED Source: [place] 10:47 AM CLINIC OTHER [place] REPOSITORY HNO ID: [id number] Author: Sandra Almaguer RD Service: Nutrition Therapy Author Type: Registered Dietitian Type: Nutrition Filed: 03/09/2018 2:41 PM Note Text: NUTRITION THERAPY PROGRESS NOTE SERVICE DATE: 03/09/2018 SERVICE TIME: 10:48 AM RECOMMENDED DIAGNOSIS: MILD PROTEIN-CALORIE MALNUTRITION per Registered Dietitian on 03/02/18 NUTRITION CARE PLAN Problem, Etiology and Signs/Symptoms: Suboptimal oral intake related to respiratory status, unable to eat by mouth?as evidenced by NPO, tube feeding by PEG Intervention: Impact Peptide at goal rate 56 ml/hr to provide via PEG-J tube 1344 ml product - 2016 kcal, 126.3 gm protein, and 1034.9 ml free water. Flush at 200 ml 6 times per day. (Fluid volume with TF over 24 hours - 2234 ml) Propofol at 26.18 mL/hr providing 691 kcal, if remains on high dose propofol will need to decreased tube feeding goal rate. Coordination of Care: Nursing Monitor and Evaluation: Goal: Meet >75% of estimated needs Monitor fluid/electrolyte balance Monitor labs, I/Os, vital signs, weight Monitor tolerance to tube feeding Discharge Nutrition Recommendations: Enteral/Tube feeding: Impact Peptide at goal rate 56 ml/hr. Flush at 200 ml 6 times per day. Adjust for propofol dose. Chart reviewed for follow-up from tube feeding Per HPI: 67 year old male patient with no known PMH other than long history of smoking ( 2packs a day for more than 30 years) Earlier 02/07/18?he was sitting and suddenly started having substernal chest pain, pain is intermittent with no radiation, he felt nauseas but no vomiting and no diaphoresis.This pain kept coming so he went to the ER. Underwent LHC on 02/08/18 showed need for CABG, underwent CABG on 02/09/18. Chest tubed pulled 02/11. ?Remains on vent support. ?Noted residuals and tube feeding held at present. ?Started on Reglan daily from PRN. ?02/16/18 Patient remains intubated this AM. No significant residuals noted greater than 100 cc. Toleration of tube feeding improving. ?02/20/18 ?Remains on vent support, tube feeding held at present for residual 280 ml. ?PICC placed on 02/17. ?Noted plan for trach and PEJ, if unable to extubate soon. ?Met with RN reports residual decreasing with plans to restart TF. ?BM 02/16. ?? Interval History: MRI completed 03/08. Remains on vent and tube feeding. BM 03/04/18. Plan for [facility] at transfer. Neurology following. ID requested to re-assess. ACTIVE PROBLEM LIST Inguinal Hernia Without Mention of Obstruction Or Gangrene, Unilateral Or Unspecified, (Not Specified As Recurrent) Nstemi (Non-St Elevated Myocardial Infarction) (Hcc) Nsvt (Nonsustained Ventricular Tachycardia) (Hcc) Nicotine use disorder, F17.2 Malnutrition of Moderate Degree (Hcc) Encephalopathy No past medical history on file. PAST SURGICAL HISTORY Procedure Laterality Date - ORTHOPEDICS SURGERY HX - REPAIR ING HERNIA,5+Y/O,REDUCIBL 1989 Hernia repair, inguinal,left Present Diet Order: NPO and Tube Feeding Impact Peptide at 56 mL/hr Nutritional Intake: >75% estimated energy needs over the past 14 day(s), tolerating tube feed well with PEG-J via J tube. Continues with distended abdomen and hypoactive bowel sounds. Admission Weight: 104.3 kg (229 lb 15 oz) Current Weight: 100.3 kg (221 lb 1.9 oz) Body mass index is 30.85 kg/(m2). class 1 obesity Noted weight loss down 4 kg from admit weight 3.8% weight loss over 30 days, suspect further weight loss as patient diureses. Edema is generalized 1+ and bilateral lower extremities 1+, edema is masking further weight loss. Last 12 Encounter Wt Readings: Date: Wt: 02/07/2018 100.3 kg (221 lb 1.9 oz) 02/07/2018 104.3 kg (230 lb) 12/04/2007 100.2 kg (221 lb) ALLERGIES No Known Allergies Current Facility-Administered Medications: perflutren lipid microspheres 1.1 mg/mL 1.3 mL injection (DEFINITY) 1.3 mL INTRAVENOUS PRN(NO DISPENSE) dilTIAZem 100 mg in D5W 100 mL ADD-Boyden (CARDIZEM) 5-15 mg/hr INTRAVENOUS CONTINUOUS diltiazem 60 mg tab(s) (CARDIZEM) 60 mg NASOGASTRIC q 6 H haloperidol lactate 5 mg oral liquid (HALDOL) 5 mg ORAL q 6 HR propofol infusion (DIPRIVAN) 10-50 mcg/kg/min INTRAVENOUS CONTINUOUS valproic acid 500 mg CUP (DEPAKENE) 500 mg ORAL q 8 H thiamine 100 mg tab(s) (VITAMIN B1) 100 mg ORAL DAILY melatonin 6 mg tab(s) 6 mg ORAL AT BEDTIME pantoprazole 40 mg injection (PROTONIX) 40 mg INTRAVENOUS DAILY (6 AM) metoclopramide HCl 10 mg injection (REGLAN) 10 mg INTRAVENOUS q 6 H PRN furosemide 40 mg tab(s) (LASIX) 40 mg ORAL BID 9a/5p fentaNYL 50 mcg/mL 50 mcg injection (SUBLIMAZE) 50 mcg INTRAVENOUS q 2 H PRN ipratropium-albuterol 3 mL nebulizer solution (DUONEB) 3 mL INHALATION QID aspirin 81 mg chewable tab(s) 81 mg ORAL DAILY apixaban 5 mg tab(s) (ELIQUIS) 5 mg ORAL BID metoprolol tartrate (short acting) 100 mg tab(s) (LOPRESSOR) 100 mg ORAL q 8 H 0.9% NaCl 20 mL 20 mL INTRAVENOUS PRN 0.9% NaCl 10 mL 10 mL INTRAVENOUS q 12 H bisacodyl 10 mg suppository (DULCOLAX) 10 mg RECTAL DAILY PRN polyethylene glycol 3350 17 g packet (MIRALAX, GLYCOLAX) 17 g ORAL DAILY senna-docusate 8.6-50 mg 1 tablet (SENNA-S) 1 tablet ORAL BID pill splitter (patient-specific) 1 Each Miscell. (Med.Supl.;Non- Drugs) PRN Chlorhexidine Gluconate 0.12 % 15 mL (PERIDEX) 15 mL ORAL q 12 H budesonide 0.5 mg/2 mL 1 mg (PULMICORT) 1 mg INHALATION BID acetaminophen 650 mg tab(s) (TYLENOL) 650 mg ORAL q 6 H PRN potassium chloride iv piggyback 20 mEq in sterile water 100 mL 20 mEq INTRAVENOUS PRN magnesium sulfate in water 2 g in sterile water 50 ml 2 g INTRAVENOUS PRN(NO DISPENSE) albuterol 2.5 mg /3 mL (0.083 %) 2.5 mg (PROVENTIL) 2.5 mg INHALATION q 2 H PRN calcium chloride 1 g in D5W 100 mL 1 g INTRAVENOUS PRN(NO DISPENSE) oxyCODONE-acetaminophen 5-325 mg 1-2 tablet (PERCOCET) 1-2 tablet ORAL q 4 H PRN ondansetron (PF) 4 mg injection (ZOFRAN) 4 mg INTRAVENOUS q 6 H PRN atorvastatin 40 mg tab(s) (LIPITOR) 40 mg ORAL AT BEDTIME Surgical Incision 02/09/18 Chest - Midsternal (Active) Dressing Status None: Open to Air 03/09/2018 7:31 AM Frequency of Dressing Change As Needed 03/08/2018 8:00 PM Incision Closures Topical Skin Adhesive 03/09/2018 7:31 AM Drainage Description None 03/08/2018 8:00 PM Drainage Amount None 03/08/2018 8:00 PM Edges Intact 03/09/2018 7:31 AM Hematoma No 03/09/2018 7:31 AM Number of days:28 Surgical Incision 02/09/18 Leg - Left (Active) Dressing Status None: Open to Air 03/09/2018 7:31 AM Frequency of Dressing Change As Needed 03/08/2018 8:00 PM Incision Closures Topical Skin Adhesive 03/09/2018 7:31 AM Drainage Description None 03/09/2018 7:31 AM Drainage Amount None 03/08/2018 8:00 PM Edges Intact 03/09/2018 7:31 AM Hematoma No 03/09/2018 7:31 AM Number of days:28 MNT Billing Type: Re-assess/15 min 3 units SIGNATURE: Sandra Almaguer RD, LD PATIENT NAME: Jeffrey Cullen DATE: March 09, 2018 TIME: 10:47 AM PAGER: [phone] HEMOGRAM/DIFF Collected: 03/09/2018 Status: F Source: [facility] 8:40 AM HEALTH SYSTEM REPOSITORY TYPE CODE TESTS RESULT OUT OF REFERENCE UNITS RANGE LAB WBC(LOINC) 4.23-9.07 thou/cmm WBC 5.65 LAB RBC(LOINC) 4.63-6.08 mil/cmm Low RBC 3.12 LAB HGB(LOINC) 13.7-17.5 g/dL Low Hgb 9.8 LAB HCT(LOINC) 40.1-51.0 % Low Hct 31.0 LAB MCV(LOINC) 83.2-95.6 fl MCV High 99.4 LAB MCH(LOINC) 25.7-32.2 pg MCH 31.4 LAB MCHC(LOINC 32.3-36.5 % ) Low MCHC 31.6 LAB RDW(LOINC) 11.6-14.4 % RDW 13.6 LAB RDWSD(LOIN 36.1-45.8 fl C) RDW SD High 49.2 LAB PLT(LOINC) 141-365 thou/cmm Platelet 196 LAB MPV(LOINC) 8.7-12.0 fl MPV 9.9 LAB SEG(LOINC) % Seg Neutrophil 51.2 LAB IGRE(LOINC % ) Immature Grans 2.10 LAB LYMPH(LOIN % C) Lymphocyte 26.2 LAB MNO(LOINC) % Monocyte 12.0 LAB EOSIN(LOIN % C) Eosinophil 7.6 LAB BASO(LOINC % ) Basophil 0.9 LAB SEGN(LOINC 1.78-5.38 thou/cmm ) Abs. Neut 2.89 LAB IGAB(LOINC 0.00-0.05 thou/cmm ) Abs High Immature Grans 0.12 LAB LYMN(LOINC 0.84-2.85 thou/cmm ) Abs. Lymph 1.48 LAB MONON(LOIN 0.30-0.82 thou/cmm C) Abs. Slope 0.68 LAB EOSN(LOINC 0.04-0.54 thou/cmm ) Abs. Eosin 0.43 LAB BASON(LOIN 0.01-0.08 thou/cmm C) Abs. Baso 0.05 Result Comment: Smear scanned; tech agrees with automated differential Performed By: #### [email or web address] #### [place] [id number] PROTIME Collected: 03/09/2018 Status: F Source: [facility] 8:40 AM HEALTH SYSTEM REPOSITORY TYPE CODE TESTS RESULT OUT OF REFERENCE UNITS RANGE LAB PTI(LOINC) 9.3-11.9 sec Prothrombin Time 11.9 LAB INR(LOINC) INR 1.15 Result Comment: Standard Therapy 2.0-3.0 High Dose 2.5-3.5 Performed By: #### PT #### [place] [id number] CONSULT Observed: 03/09/2018 Status: COMPLETED Source: [place] 12:00 AM CLINIC OTHER CAMPUS REPOSITORY O ID: [id number] Author: Juan Carrera Service: Infectious Disease Author Type: Physician Type: Consults Filed: 03/14/2018 5:41 PM Note Text: [facility] - Consultation PATIENT NAME: JEFFREY CULLEN CSN: [id number] DATE OF : 1950 SEX/AGE: M/67 PATIENT TYPE: HOSP SVC: LOCATION: [facility] 03/09/2018 INFECTIOUS DISEASE CONSULT The patient cannot provide history. We are consulted for encephalopathy after infection, questionable need of LP. The patient is currently ventilated through a trach, moves around, but has to be restrained and somewhat sedated, and is not opening eyes nor interacting. He was initially brought into the emergency room on the where the impression at least on the H and P was chest pain, NSTEMI, and heavy smoker at least 60 pack-year history, and the patient had not had any medical care because he felt he was healthy. His listed past history then was some type of orthopedic surgery that he did not have details and left inguinal herniorrhaphy in 1989. He is a heavy smoker. MEDICATION ALLERGIES: None known. HOSPITAL COURSE: The patient was diagnosed with coronary artery disease, and on the , underwent CABG 3-vessel by Dr. Marin. He had extensive acute inferior wall infarction/ischemia. He was followed along by at least Cardiology. Pulmonary Critical Care became involved where he was listed as opening eyes to name, but agitated and writhing about requiring restraints. He has been on the usual pressors postop and was listed as hypercapnia as well with encephalopathy. He was still followed along by Cardiac Surg, Cardiology, and Critical Care, and they mentioned how they were dealing with vent issues. At some point they mentioned how they were finishing antibiotics, and I cannot see which one it was. Actually I do not see any even on another note ahead of that although it was listed. Even though I had a hard time finding the antibiotic, he was listed as being on ceftriaxone for Klebsiella and E. coli HCAP. Neurosurgical Intensive Care was involved for encephalopathy, listed as postop ICU delirium/agitation with acute encephalopathy. His tracheostomy was on February 22, and on February 22, he had a IR placed percutaneous gastrojejunostomy tube. Even notes today he has severe encephalopathy and there is some questioning of viral encephalitis. PHYSICAL EXAMINATION: GENERAL: The patient is encephalopathic, does not interact. He writes around and is restrained. NECK: Quite supple. He can move it left and right easily and I can flex it quite easily as well. HEENT: No stigmata of infectious endocarditis was seen in the eyelids or hands. His pupils are equal. HEART: Regular at 93. LUNGS: Diffuse wheezes and some central airway secretion rhonchi. I am not sure how much of that as all the noise reverberating throughout his chest or not. ABDOMEN: Soft. PEG site unremarkable. Right arm PICC site unremarkable. : Catheter urine looks clear. JOINTS: No acute changes. He is moving extremities. I do not see any facial droop. VITAL SIGNS: Of note, his temp, he has had fevers up to the low 38s and mainly high 37s at least since the . He was rising to these on the and , then dropped, then went back up. Today is up to 38.2. DATA: White counts have been normal since February 26. Platelets fine. Creatinines have been normal for a while. Liver enzymes not significantly high. MRI thoracic spine, no significant abnormality. MRI cervical spine, no significant abnormality. MRI brain, no acute ischemic infarct, chronic small-vessel disease. MRA, within normal limits of the brain. No mention of herpetic lesions. On February 22, he had a CT abdomen. They had distended gallbladder, effusion in the left base, atelectasis of both bases, which would be expected in a post CABG situation. Prior CT scan had clear paranasal sinuses. On March 02 he had a sputum with no WBCs on stain and rare bacterial types. It did grow an E coli amazingly pansensitive and a Klebsiella baseline only resistant to ampicillin. He had an E. coli as well and a Klebsiella on February 11 and . On February 08 he was not an MRSA colonizer. Interestingly, I do not see any blood cultures anywhere or even a urine listed at least not in a micro section. ASSESSMENT/PLAN: For somebody this encephalopathic if you are worried about the chances of a viral encephalitis, which is there you are going to have to do an LP. There are no signs on the MRI, but not all viruses make MRI changes, so if you want to arrange for an LP, I would suggest usual studies, AFB smear and culture, routine culture, fungal culture, and CSF for a meningeal film array, which would I like to send to [facility] because it is faster. In the meantime, because of persistent low-grade fevers and encephalopathy, I am going to order some blood cultures and check a urine because I do not see where those have been done and he does not appear to have a pneumonia anymore by x-ray. He has also been treated with prior antibiotics for pneumonia. Fevers could be postop cardiac surgery and some hematoma. Cannot rule out infection, so from that particular standpoint, I am going to order blood and urine cultures. Since he is stable hemodynamically, we will await on antibiotics at this time. Multiple comorbidities including heavy smoking, ventilator, encephalopathy, postop CABG status. Thank you for allowing us to participate in his care. Juan Carrera MD Infectious Disease PABLITO:carlyn /[id number] PROGRESS Observed: 03/08/2018 Status: COMPLETED Source: [place] 4:18 PM CLINIC OTHER CAMPUS REPOSITORY HNO ID: [id number] Author: Paulette Aguilar Service: Critical Care Author Type: Physician Type: Progress Notes Filed: 03/08/2018 4:31 PM Note Text: MICU - PROGRESS NOTE SERVICE DATE: 03/08/2018 SERVICE TIME: 4:13 PM Admission Date: 02/07/2018 AGE: [age] year old LOS: 29 days REASON FOR ICU ADMISSION: Acute respiratory failure, acute encephalopathy Subjective HPI/Interval history: Still ongoing encephalopathy Still grimacing even w/ slight palpation of UE Tachypneic on vent 28-32 On propofol and fentanyl gtts; IVF bolus for sedation related hypotension; responded Had paralytics/changed to PRVC for MRI Had MRI of cervical and thoracic spine today - neg for focal lesions/pathology Objective VITAL SIGNS (last 24hrs min/max): Temp Av.3 ?C (99.1 ?F) Min: 36.4 ?C (97.5 ?F) Max: 37.7 ?C (99.9 ?F) Pulse Av.9 Min: 86 Max: 127 No Data Recorded Cuff BP Min: 79/51 Max: 182/153 Pain Score: 7/10 Vital signs reviewed. BP 90/58 Pulse 101 Temp (Src) 99.5 (High Thermistor) Resp 18 Ht 5' 10.984 (1.80m) Wt 219 lb 5.7 oz (99.5kg) SpO2 97% BMI 30.61 kg/(m2). Temp (24hrs), Av.6 ?C (99.7 ?F), Min:37.4 ?C (99.3 ?F), Max:37.9 ?C (100.2 ?F) NET FLUID BALANCE Intake/Output Summary (Last 24 hours) at 03/08/18 1618 Last data filed at 03/08/18 1500 Gross per 24 hour Intake 1451.3 ml Output 1646 ml Net -194.7 ml MEDICATIONS Current Facility-Administered Medications: dilTIAZem 100 mg in D5W 100 mL ADD-Boyden (CARDIZEM) 5-15 mg/hr INTRAVENOUS CONTINUOUS diltiazem 60 mg tab(s) (CARDIZEM) 60 mg NASOGASTRIC q 6 H haloperidol lactate 5 mg oral liquid (HALDOL) 5 mg ORAL q 6 HR propofol infusion (DIPRIVAN) 10-50 mcg/kg/min INTRAVENOUS CONTINUOUS valproic acid 500 mg CUP (DEPAKENE) 500 mg ORAL q 8 H thiamine 100 mg tab(s) (VITAMIN B1) 100 mg ORAL DAILY melatonin 6 mg tab(s) 6 mg ORAL AT BEDTIME pantoprazole 40 mg injection (PROTONIX) 40 mg INTRAVENOUS DAILY (6 AM) metoclopramide HCl 10 mg injection (REGLAN) 10 mg INTRAVENOUS q 6 H PRN furosemide 40 mg tab(s) (LASIX) 40 mg ORAL BID 9a/5p fentaNYL 50 mcg/mL 50 mcg injection (SUBLIMAZE) 50 mcg INTRAVENOUS q 2 H PRN ipratropium-albuterol 3 mL nebulizer solution (DUONEB) 3 mL INHALATION QID aspirin 81 mg chewable tab(s) 81 mg ORAL DAILY apixaban 5 mg tab(s) (ELIQUIS) 5 mg ORAL BID metoprolol tartrate (short acting) 100 mg tab(s) (LOPRESSOR) 100 mg ORAL q 8 H 0.9% NaCl 20 mL 20 mL INTRAVENOUS PRN 0.9% NaCl 10 mL 10 mL INTRAVENOUS q 12 H bisacodyl 10 mg suppository (DULCOLAX) 10 mg RECTAL DAILY PRN polyethylene glycol 3350 17 g packet (MIRALAX, GLYCOLAX) 17 g ORAL DAILY senna-docusate 8.6-50 mg 1 tablet (SENNA-S) 1 tablet ORAL BID pill splitter (patient-specific) 1 Each Miscell. (Med.Supl.;Non- Drugs) PRN Chlorhexidine Gluconate 0.12 % 15 mL (PERIDEX) 15 mL ORAL q 12 H budesonide 0.5 mg/2 mL 1 mg (PULMICORT) 1 mg INHALATION BID acetaminophen 650 mg tab(s) (TYLENOL) 650 mg ORAL q 6 H PRN potassium chloride iv piggyback 20 mEq in sterile water 100 mL 20 mEq INTRAVENOUS PRN magnesium sulfate in water 2 g in sterile water 50 ml 2 g INTRAVENOUS PRN(NO DISPENSE) albuterol 2.5 mg /3 mL (0.083 %) 2.5 mg (PROVENTIL) 2.5 mg INHALATION q 2 H PRN calcium chloride 1 g in D5W 100 mL 1 g INTRAVENOUS PRN(NO DISPENSE) oxyCODONE-acetaminophen 5-325 mg 1-2 tablet (PERCOCET) 1-2 tablet ORAL q 4 H PRN ondansetron (PF) 4 mg injection (ZOFRAN) 4 mg INTRAVENOUS q 6 H PRN atorvastatin 40 mg tab(s) (LIPITOR) 40 mg ORAL AT BEDTIME Lines, Drains, and Airways Line Central Line Double Lumen 02/17/18 1310 Peripherally Inserted (PICC) Right Arm 5.0 Vietnamese 19 days Drain Indwelling Urinary Catheter 02/09/18 0838 Temperature Monitoring 16 Fr 27 days GI Feed/Drain 02/22/18 1336 Gastrostomy-Jejunostomy (G-J) Abdomen 18 Fr 14 days Airway Airway Tracheostomy 02/22/18 14 days Respiratory/Nursing Documentation: O2 Therapy: Ventilator (vent changed out for new humidifier and pt put on post mri) (03/08/18 1232) Invasive Ventilator Mode: Pressure Control Ventilation (03/08/18 1232) Set Ventilator Respiratory Rate (BPM): 15 (03/08/18 1232) Total Respiratory Rate (BPM): 24 (03/08/18 1232) Tidal Volume Set (mL): 550 (03/08/18 0800) Exhaled Tidal Volume (mL): 814 (03/08/18 1232) Minute Volume (L): 16.3 (03/08/18 1232) Peak Inspiratory Pressure (cm H2O): 20 (03/08/18 1232) PEEP/CPAP (cm H2O): 5 (03/08/18 1232) PHYSICAL EXAMINATION: Constitutional: Vitals-reviewed and noted above. General appearance- Restless, moving in bed, mainly LE. Eyes: Anicteric; pupils reactive Trach secured Cardiovascular: RRR Respiratory: Vent sounds appreciated, diminished at bases GI/Abdominal: soft, BS+ Neuro: Grimacing to even mild touch of UE DATA: All data reviewed, including, but not limited to, data noted below. All diagnostic tests, including labs/specimens, EKGs, and imaging, were personally reviewed by me. CULTURES: CXR FINDINGS: 03/06: FINDINGS: The tracheostomy tube appears stable. ?There is a stable appearing right ?central venous catheter with its tip in the right atrium. ?There is no visible pneumothorax and the lungs are otherwise clear. ?Heart is nonenlarged. ?Sternotomy ?wires are noted. OTHER DIAGNOSTICS/ IMAGIN/11: MRI Cspine and Tspine: No sig abnormality Impression/Recommendations Critical Care Documentation: The patient has the following organ/system impairment(s): # Severe encephalopathy, severe motor restlessness, cognitive impairments; UE notable weakness and pain- No obvious source of toxic metabolic; MRI C-spine and T-spine normal; ?severe ICU delirium; ?viral encephalitis (?enterovirus) # Acute, now chronic (3 wks) respiratory failure with trach, prolonged vent; on AC/PC w/ better synchrony; still intermittent tachypnea # Afib with rvr - rate controlled; now NSR # s/o CABG POD 27 # Copd FEV1 69% preop # Mild anemia after prolonged icu course # LLL atelectasis, improved # Hypoalbuminemia/ Severe protein calorie malnutrition # Recurrent emesis - improved tolerating postpyloric feeds PLAN: - Will discuss w/ ID and neurology for utility/yield of LP; will re-consult ID given new findings of UE flaccidity w/o anatomic pathology (MRI spine normal) - Will d/c zyprexa and retry standing haldol; 5mg IV q6hr; EKG in AM for QT monitoring - C/w Valproic acid per neurology - Wean propofol to RASS 0 - Limit Benzos - Cont Fentanyl prn q2hr for pain control/tachypnea - Duonebs q4h - Daily lasix; tolerating - ASA/stain/BB - Eliquis (DVT prophy also) - Ongoing encephalopathy posing as sig barrier to vent liberation - Thiamine - LTAC planning underway Prognosis: Guarded Code Status: Full Patient/Family Updated: Family not present This patient has a high probability of sudden, clinically significant deterioration, which requires the highest level of physician preparedness to intervene urgently. I managed/supervised life or organ supporting interventions that required frequent physician assessment. I devoted my full attention to the direct care of this patient for the amount of time indicated below. Time I spent with family or surrogate(s) is included only if the patient was incapable of providing the necessary information or participating in medical decision making. Time devoted to teaching and to any procedures I billed separately is not included. Discussed with staff. Time spent providing critical care services: 34 minutes, excluding procedures. SIGNATURE: Paulette Aguilar MD [facility] DATE of SERVICE: March 08, 2018 TIME of SERVICE: 4:31 PM CASE MANAGEM Observed: 03/08/2018 Status: COMPLETED Source: [place] 3:18 PM [facility] OTHER CAMPUS REPOSITORY HNO ID: [id number] Author: Angelica (Rn) RAINA Malcolm Service: Care Management Author Type: Registered Nurse Type: Care Mgt Progress Note Filed: 03/08/2018 3:22 PM Note Text: Remains intubated, still on Propofol gtt, chronic vent, severe encephalopathy and motor restlessness, plan is for [facility] at discharge. BASIC PANEL Collected: 03/08/2018 Status: F Source: [facility] 1:15 PM HEALTH SYSTEM REPOSITORY TYPE CODE TESTS RESULT OUT OF REFERENCE UNITS RANGE LAB NA(LOINC) 136-145 mEq/L Sodium Blood 136 LAB CL(LOINC) 98-107 mEq/L Chloride Blood 101 LAB CO2(LOINC) 21-32 mEq/L CO2 Blood 30 LAB BUN(LOINC) 7-18 mg/dL BUN High Blood 29 LAB CREA(LOINC 0.67-1.17 mg/dL ) Creatinine Blood 0.81 LAB CA(LOINC) 8.5-10.1 mg/dL Low Calcium Blood 7.6 LAB K(LOINC) 3.5-5.1 mEq/L Potassium Blood 3.9 LAB ANGAP(LOIN 8-16 C) Anion Gap 9 LAB GLU(LOINC) 70-99 mg/dL Glucose Blood 96 Performed By: #### P8 #### [facility] [address] [id number] MDRD GFR Collected: 03/08/2018 Status: F Source: [facility] 1:15 PM HEALTH SYSTEM REPOSITORY TYPE CODE TESTS RESULT OUT OF RANGE REFERENCE UNITS LAB GFRFN(LOINC >60mL/min/1.73m ) 2 eGFR >60 Result Comment: If the patient is , multiply the result by 1.210. Performed By: #### GFR #### [facility] [address] [id number] PROGRESS Observed: 03/08/2018 Status: COMPLETED Source: [place] 1:06 PM CLINIC OTHER CAMPUS REPOSITORY HNO ID: [id number] Author: Beata Marin Service: Cardiovascular Surgery Author Type: Physician Type: Progress Notes Filed: 03/09/2018 9:10 AM Note Text: CARDIOTHORACIC SURGERY POSTOP PROGRESS NOTE SERVICE DATE: 03/08/2018 SERVICE TIME: 13:06 Subjective LOS: 29 INTERVAL EVENTS / PERTINENT ROS: MRI C-spine and T-spine today Objective Admission Weight: 104.3 kg (229 lb 15 oz) BP 90/58 Pulse 101 Temp 37.5 ?C (99.5 ?F) (High Thermistor) Resp 18 Ht 180.3 cm (5' 10.98) Wt 99.5 kg (219 lb 5.7 oz) SpO2 97% BMI 30.61 kg/m2 Body surface area is 2.23 meters squared. Min/Max/Average Temperature AND Blood Pressure: Temp (24hrs), Av.6 ?C (99.7 ?F), Min:37.4 ?C (99.3 ?F), Max:37.9 ?C (100.2 ?F) Systolic (24hrs), Av , Min:78 , Max:129 Diastolic (24hrs), Av, Min:51, Max:107 Intake/Output Summary (Last 24 hours) at 03/08/18 1643 Last data filed at 03/08/18 1500 Gross per 24 hour Intake 1451.3 ml Output 1646 ml Net -194.7 ml TELEMETRY: sinus tachycardia PHYSICAL EXAM: General Appearance: restless at times Skin: Midsternal incision dry AND intact. and SVG incisions dry AND intact. Lungs: respiratory effort: normal and coarse Heart: regular rhythm and S1, S2 normal Lines, Drains, and Airways Line Central Line Double Lumen 02/17/18 1310 Peripherally Inserted (PICC) Right Arm 5.0 Vietnamese 19 days Drain Indwelling Urinary Catheter 02/09/18 0838 Temperature Monitoring 16 Fr 27 days GI Feed/Drain 02/22/18 1336 Gastrostomy-Jejunostomy (G-J) Abdomen 18 Fr 14 days Airway Airway Tracheostomy 02/22/18 14 days DATA: Diagnostic tests reviewed for today's visit: Recent Labs 03/08/18 1315 03/06/18 0525 RBC -- 2.98* WBC -- 7.12 HB -- 10.1* HCT -- 29.5* PLT -- 234 NA 136 140 K 3.9 4.0 CHLOR 101 106 CO2 30 29 BUN 29* 47* CREAT 0.81 0.83 GLUC 96 112* CA 7.6* 8.0* MG -- 2.4 TPROT -- 6.1* TBILI -- 0.6 ALKPHOS -- 65 ALT -- 34 AST -- 39* ANION 9 9 Assessment/Plan Acute NSTEMI s/p CABG x 3 -POD#27 -c/w ASA, statin, BB ?? Acute hypoxic AND hypercapneic respiratory failure 2/2 severe COPD -s/p tracheostomy -Vent wean per ICU team ?? Paroxysmal Afib/Aflutter -c/w Metoprolol AND increase Diltiazem for better rate control -c/w Eliquis for OAC ?? Acute encephalopathy -Neuro following -MRI C-spine and T-spine recommended by neuro. F/U results -If MRI normal, neuro will consider LP ?? Volume Overload -c/w?lasix 40mg PO BID -Monitor BMP -High for strict IANDO ?? Moderate Protein-Calorie Malnutrition -s/p G-J tube -Tolerating?tube feeds. ?? DVT ppx -SCDs AND Eliquis Tests/Labs Ordered: 1. BMP SIGNATURE: Clementine Owen APRN.SPRAY UNIT FEEDER PATIENT NAME: Jeffrey Cullen DATE: March 08, 2018 TIME: 4:43 PM PAGER/CONTACT #: [phone] Patient seen yesterday with PUBLIC ADDRESS SERVICER. Labs, data, and careplan reviewed. P-as ordered still undergoing neuro eval and still on vent. MRI THORACIC SPINE Observed: 03/08/2018 Status: F Source: [facility] 11:57 AM HEALTH SYSTEM REPOSITORY Performed at [facility] APPROVED BY: Jose Myles MD THORACIC SPINE MRI WITH AND WITHOUT CONTRAST ENHANCEMENT Serial images were obtained in the sagittal plane with T1W, T2W, and with a STIR sequence and in the transverse plane with T1W and T2W. Additional images were obtained in the sagittal and transverse pl anes with T1W following the intravenous injection of Dotarem. The study was performed to further evaluate hemiplegia. The spinal cord demonstrates normal caliber and signal intensity. There is no definite evidence of focal disc protrusion, significant degenerative stenosis, or of an intraspinal or paraspinal soft tiss ue mass. The thoracic intervertebral discs and vertebrae demonstrate signal intensity within normal limits except for changes related to degenerative arthritis. There is no evidence of fracture or dis location and the alignment is essentially anatomic. IMPRESSION: No significant abnormality as described above. MRI CERVICAL SPINE Observed: 03/08/2018 Status: F Source: [facility] 11:57 AM HEALTH SYSTEM REPOSITORY Performed at [facility] APPROVED BY: Jose Myles MD CERVICAL SPINE MRI WITH AND WITHOUT CONTRAST ENHANCEMENT Serial images were obtained in the sagittal plane with T1W, T2W, and with a STIR sequence and in the transverse plane with T1W, T2*W, and T2W. Additional images were obtained in the sagittal and transv erse planes with T1W following the intravenous injection of Dotarem. The study was technically limited due to artifact arising from patient motion and was performed to further evaluate hemiplegia. The spinal cord demonstrates normal caliber and signal intensity. There is no definite evidence of focal disc protrusion, significant degenerative stenosis, or of an intraspinal or paraspinal soft tiss ue mass. Except for changes related to degenerative arthritis, the cervical vertebrae and intervertebral discs demonstrate signal intensity within normal limits and the alignment is essentially anatomic. IMPRESSION: No significant abnormality as described above. PROGRESS Observed: 03/07/2018 Status: COMPLETED Source: [place] 5:26 PM CLINIC OTHER CAMPUS REPOSITORY HNO ID: [id number] Author: Paulette Aguilar Service: Critical Care Author Type: Physician Type: Progress Notes Filed: 03/07/2018 5:35 PM Note Text: MICU - PROGRESS NOTE SERVICE DATE: 03/07/2018 SERVICE TIME: 4:16 PM Admission Date: 02/07/2018 AGE: [age] year old LOS: 28 days REASON FOR ICU ADMISSION: Acute respiratory failure, acute encephalopathy Subjective HPI/Interval history: Still ongoing encephalopathy Still grimacing even w/ slight palpation of UE Tachypneic on vent 28-32 On propofol No past medical history on file. PAST SURGICAL HISTORY Procedure Laterality Date - ORTHOPEDICS SURGERY HX - REPAIR ING HERNIA,5+Y/O,REDUCIBL 1990 Hernia repair, inguinal,left Social History Marital status: Single Spouse name: Years of education: Number of children: Social History Main Topics Smoking status: Current Every Day Smoker Packs/day: 2.00 Years: 25.00 Types: Cigarettes Alcohol use: No Drug use: No Sexual activity: Yes Partners with: Female Other Topics Concern Service No Blood Transfusions No Caffeine Concern No Occupational Exposure No Hobby Hazards No Sleep Concern No Stress Concern No Weight Concern No Special Diet No Back Care No Exercise No Bike Helmet No Seat Belt No Self-Exams No Objective VITAL SIGNS (last 24hrs min/max): Temp Av.3 ?C (99.1 ?F) Min: 36.4 ?C (97.5 ?F) Max: 37.7 ?C (99.9 ?F) Pulse Av.9 Min: 86 Max: 127 No Data Recorded Cuff BP Min: 79/51 Max: 182/153 Pain Score: 7/10 Vital signs reviewed. BP 119/70 Pulse 106 Temp (Src) 100.2 (High Thermistor) Resp 18 Ht 5' 10.984 (1.80m) Wt 219 lb 5.7 oz (99.5kg) SpO2 95% BMI 30.61 kg/(m2). Temp (24hrs), Av.7 ?C (99.9 ?F), Min:37 ?C (98.6 ?F), Max:38.3 ?C (100.9 ?F) NET FLUID BALANCE Intake/Output Summary (Last 24 hours) at 04/10/18 1726 Last data filed at 03/07/18 1700 Gross per 24 hour Intake 4690 ml Output 1880 ml Net 2810 ml MEDICATIONS Current Facility-Administered Medications: fentaNYL 20 mcg/mL iv infusion in NaCl 0.9% 100 mL 50 mcg/hr INTRAVENOUS CONTINUOUS rocuronium 59.7 mg injection (ZEMURON) 0.6 mg/kg/dose INTRAVENOUS ONCE midazolam (PF) 2 mg injection (VERSED) 2 mg INTRAVENOUS ONCE iv contrast (radiology procedure) INTRAVENOUS DIRECTED PRN iv contrast (radiology procedure) INTRAVENOUS DIRECTED PRN valproic acid 500 mg CUP (DEPAKENE) 500 mg ORAL q 8 H diltiazem 30 mg tab(s) (CARDIZEM) 30 mg NASOGASTRIC q 6 H OLANZapine 10 mg tab(s) (ZyPREXA) 10 mg ORAL BID thiamine 100 mg tab(s) (VITAMIN B1) 100 mg ORAL DAILY melatonin 6 mg tab(s) 6 mg ORAL AT BEDTIME pantoprazole 40 mg injection (PROTONIX) 40 mg INTRAVENOUS DAILY (6 AM) metoclopramide HCl 10 mg injection (REGLAN) 10 mg INTRAVENOUS q 6 H PRN propofol infusion (DIPRIVAN) 10-30 mcg/kg/min INTRAVENOUS CONTINUOUS furosemide 40 mg tab(s) (LASIX) 40 mg ORAL BID 9a/5p fentaNYL 50 mcg/mL 50 mcg injection (SUBLIMAZE) 50 mcg INTRAVENOUS q 2 H PRN ipratropium-albuterol 3 mL nebulizer solution (DUONEB) 3 mL INHALATION QID aspirin 81 mg chewable tab(s) 81 mg ORAL DAILY apixaban 5 mg tab(s) (ELIQUIS) 5 mg ORAL BID metoprolol tartrate (short acting) 100 mg tab(s) (LOPRESSOR) 100 mg ORAL q 8 H 0.9% NaCl 20 mL 20 mL INTRAVENOUS PRN 0.9% NaCl 10 mL 10 mL INTRAVENOUS q 12 H bisacodyl 10 mg suppository (DULCOLAX) 10 mg RECTAL DAILY PRN polyethylene glycol 3350 17 g packet (MIRALAX, GLYCOLAX) 17 g ORAL DAILY senna-docusate 8.6-50 mg 1 tablet (SENNA-S) 1 tablet ORAL BID pill splitter (patient-specific) 1 Each Miscell. (Med.Supl.;Non- Drugs) PRN Chlorhexidine Gluconate 0.12 % 15 mL (PERIDEX) 15 mL ORAL q 12 H budesonide 0.5 mg/2 mL 1 mg (PULMICORT) 1 mg INHALATION BID acetaminophen 650 mg tab(s) (TYLENOL) 650 mg ORAL q 6 H PRN potassium chloride iv piggyback 20 mEq in sterile water 100 mL 20 mEq INTRAVENOUS PRN magnesium sulfate in water 2 g in sterile water 50 ml 2 g INTRAVENOUS PRN(NO DISPENSE) albuterol 2.5 mg /3 mL (0.083 %) 2.5 mg (PROVENTIL) 2.5 mg INHALATION q 2 H PRN calcium chloride 1 g in D5W 100 mL 1 g INTRAVENOUS PRN(NO DISPENSE) oxyCODONE-acetaminophen 5-325 mg 1-2 tablet (PERCOCET) 1-2 tablet ORAL q 4 H PRN ondansetron (PF) 4 mg injection (ZOFRAN) 4 mg INTRAVENOUS q 6 H PRN atorvastatin 40 mg tab(s) (LIPITOR) 40 mg ORAL AT BEDTIME Lines, Drains, and Airways Line Central Line Double Lumen 02/17/18 1310 Peripherally Inserted (PICC) Right Arm 5.0 Vietnamese 18 days Drain Indwelling Urinary Catheter 02/09/18 0838 Temperature Monitoring 16 Fr 26 days GI Feed/Drain 02/22/18 1336 Gastrostomy-Jejunostomy (G-J) Abdomen 18 Fr 13 days Airway Airway Tracheostomy 02/22/18 13 days Respiratory/Nursing Documentation: O2 Therapy: Ventilator (03/07/181711) Invasive Ventilator Mode: Pressure Control Ventilation (03/07/181711) Set Ventilator Respiratory Rate (BPM): 15 (03/07/181711) Total Respiratory Rate (BPM): 20 (03/07/181711) Tidal Volume Set (mL): 550 (03/06/18 1212) Exhaled Tidal Volume (mL): 807 (03/07/181711) Minute Volume (L): 13.3 (03/07/181711) Peak Inspiratory Pressure (cm H2O): 25 (03/07/181711) PEEP/CPAP (cm H2O): 5 (03/07/181711) PHYSICAL EXAMINATION: Constitutional: Vitals-reviewed and noted above. General appearance- Restless, moving in bed, mainly LE, diaphoretic Eyes: Anicteric Trach secured Cardiovascular: RRR Respiratory: Vent sounds appreciated, diminished at bases GI/Abdominal: soft, BS+ Neuro: Grimacing to touch of UE DATA: All data reviewed, including, but not limited to, data noted below. All diagnostic tests, including labs/specimens, EKGs, and imaging, were personally reviewed by me. CULTURES: CXR FINDINGS: 03/06: FINDINGS: The tracheostomy tube appears stable. ?There is a stable appearing right ?central venous catheter with its tip in the right atrium. ?There is no visible pneumothorax and the lungs are otherwise clear. ?Heart is nonenlarged. ?Sternotomy ?wires are noted. OTHER DIAGNOSTICS/ IMAGING: Impression/Recommendations Critical Care Documentation: The patient has the following organ/system impairment(s): # Acute, now chronic (3 wks) respiratory failure with trach, prolonged vent; on AC/PC w/ better synchrony; still intermittent tachypnea # Severe toxic metabolic ? encephalopathy, severe motor restlessness, cognitive impairments; UE notable weakness and pain # Afib with rvr better; NOAC, rate controlled; now NSR # s/o CABG POD 26 # Copd FEV1 69% preop # Mild anemia after prolonged icu course # LLL atelectasis, improved # Hypoalbuminemia/ Severe protein calorie malnutrition # Recurrent emesis - improved tolerating postpyloric feeds PLAN: - Discussed w/ neurology- planned for MR C-spine/T-spine w/ - Re-discussed w/ neurology; concern for limited UE movement/pain; ordered MRI C spine/T spine w/ and w/o contrast for flaccid b/l UE; to tolerate-will need paralytic/sedation during study. Instructed to give Rocuronium/Versed when called for MRI. COMMUNICATED TO NURSING/RT that pt MUST be switched back to PRVC once paralyzed to ensure adequate MV. - Will d/c patch and start fentanyl gtt 50mcg for increased titratable pain control - Will re-discuss w/ ID if any concern for infectious process that may be contributing to UE flaccid paralysis/pain - Cont w/ Zyprexa and valproic acid - Cont propofol; limit benzos except as noted above w/ paralytic - Duonebs q4h - Daily lasix; tolerating - ASA/stain/BB - Eliquis (DVT prophy also) - Ongoing encephalopathy posing as sig barrier to vent liberation - Thiamine Prognosis: Guarded Code Status: Full Patient/Family Updated: Family not present This patient has a high probability of sudden, clinically significant deterioration, which requires the highest level of physician preparedness to intervene urgently. I managed/supervised life or organ supporting interventions that required frequent physician assessment. I devoted my full attention to the direct care of this patient for the amount of time indicated below. Time I spent with family or surrogate(s) is included only if the patient was incapable of providing the necessary information or participating in medical decision making. Time devoted to teaching and to any procedures I billed separately is not included. Discussed with staff. Time spent providing critical care services: 32 minutes, excluding procedures. SIGNATURE: Paulette Aguilar MD [facility] DATE of SERVICE: March 07, 2018 TIME of SERVICE: 4:35 PM CONSULT PROG Observed: 03/07/2018 Status: COMPLETED Source: [place] 12:10 PM [facility] OTHER CAMPUS REPOSITORY HNO ID: [id number] Author: Guillermina Umana Service: Neurology Author Type: Physician Type: Consult Progress Note Filed: 03/07/2018 6:25 PM Note Text: NEUROLOGY CONSULT PROGRESS NOTE SERVICE DATE: 03/07/2018 SERVICE TIME: 1120 Current Attending Provider: Beata Marin Subjective Interval History: Today, Jeffrey is not changed. No acute events o/n. Objective Physical Examination: Neurological: Mental Status: He is not oriented. Continues to writhe in bed. Grimaces. Does not localize to pain. Not moving upper ext. CVS: RRR, no m/g/r Pulm: CTAB, healing midline surgical site. New Labs: WBC (thou/cmm) Date Value 03/06/2018 7.12 03/03/2018 8.16 03/01/2018 5.85 RBC (mil/cmm) Date Value 03/06/2018 2.98 03/03/2018 3.49 03/01/2018 2.94 Platelet Count (thou/cmm) Date Value 03/06/2018 234 03/03/2018 294 03/01/2018 273 BUN (mg/dL) Date Value 03/06/2018 47 03/04/2018 30 03/03/2018 25 Creatinine (mg/dL) Date Value 03/06/2018 0.83 03/04/2018 1.00 03/03/2018 0.85 CBC, Coags, BMP, Mg, Phos Recent Labs 03/06/18 0525 03/05/18 0915 NA 140 -- K 4.0 3.7 CHLOR 106 -- CO2 29 -- GLUC 112* -- CA 8.0* -- MG 2.4 -- Liver Function, Amylase, AND Lipase Recent Labs 03/06/18 0525 TPROT 6.1* ALB 2.0* ALT 34 AST 39* ALKPHOS 65 TBILI 0.6 BEM Reading: No new reading DATA: Diagnostic tests reviewed for today's visit: Most recent labs and imaging results. Impression/Recommendations Encephalopathy POA: Unknown Assessment AND Plan: Multifactoral encephalopathy, but primary cause is uncertain at this time, primary considerations are diffuse anoxic brain injury from surgery, metabolic or infectious. Does not appear to be grossly structural given negative neuroimaging. Does not follow a stroke like distribution. No seizure activity on BEM. Have attempted to wean propofol. Have used zyprexa and valproic acid. 1. Given writhing noted on exam and grimace with any touch of the upper ext, consider increasing pain control, either increasing fentanyl patch or retrying fentanyl drip 2. Avoid anticholinergic, antihistamines, sedatives meds 3. Waiting MRI imaging of C-spine and T-spine with and without contrast for possible lesion there 4. If there is no findings on this evaluation could do lumbar puncture 5. No changes to valproic acid at this time 6. Will continue to follow ? SIGNATURE: Manuel Peace MD PATIENT NAME: Jeffrey Cullen DATE: March 07, 2018 TIME: 12:10 PM PAGER/CONTACT #: [phone] THE NEURO ICU Evaluation f this pATIENT WAS DISCUSSED WITH THE NSICU TEAM UNDER DR. Umana I have reviewed the progress note obtained and documented by the resident, Dr. Peace and I personally participated in the hernandez components. I have discussed the case and management of the patient's care. The following comments revise or confirm relevant hernandez components of the note. I have repeated the examination and confirm the findings except as documented. PATIENT PROBLEMS I REVIEWED, REVISED AND/OR INITIATED: The care of this patient required my full attention and direct personal management of: Active Problems: NSTEMI (non-ST elevated myocardial infarction) (HCC) NSVT (nonsustained ventricular tachycardia) (HCC) Nicotine use disorder, F17.2 Malnutrition of moderate degree (HCC) Encephalopathy Resolved Problems: * No resolved hospital problems. * PLAN, IMPRESSION AND ACTION(S) TAKEN Please see the documented [id number] plan in the updated problem list. Guillermina Umana MD Staff, Neurointensive Care [facility] [place] Date of Service: 03/07/2018 Time of Service: 6:24 PM This is an electronically created document. If printed, please do not remove from the chart or modify printed copy. PROGRESS Observed: 03/07/2018 Status: COMPLETED Source: [place] 11:12 AM CLINIC OTHER CAMPUS REPOSITORY HNO ID: [id number] Author: Beata Marin Service: Cardiovascular Surgery Author Type: Physician Type: Progress Notes Filed: 03/07/2018 5:10 PM Note Text: CARDIOTHORACIC SURGERY POSTOP PROGRESS NOTE SERVICE DATE: 03/07/2018 SERVICE TIME: 11:12am Subjective LOS: 28 INTERVAL EVENTS / PERTINENT ROS: No changes overnight. Objective Admission Weight: 104.3 kg (229 lb 15 oz) BP 108/61 Pulse 110 Temp 37.9 ?C (100.2 ?F) Resp 26 Ht 180.3 cm (5' 10.98) Wt 99.5 kg (219 lb 5.7 oz) SpO2 95% BMI 30.61 kg/m2 Body surface area is 2.23 meters squared. Min/Max/Average Temperature AND Blood Pressure: Temp (24hrs), Av.7 ?C (99.8 ?F), Min:37 ?C (98.6 ?F), Max:38.3 ?C (100.9 ?F) Systolic (24hrs), Av , Min:86 , Max:141 Diastolic (24hrs), Av, Min:55, Max:92 Intake/Output Summary (Last 24 hours) at 03/07/18 1515 Last data filed at 03/07/18 1300 Gross per 24 hour Intake 3464 ml Output 1951 ml Net 1513 ml TELEMETRY: normal sinus rhythm PHYSICAL EXAM: General Appearance: restless Skin: Midsternal incision dry AND intact. and SVG incisions dry AND intact. Lungs: respiratory effort: normal and coarse Heart: regular rhythm and S1, S2 normal Trach and PEG tube intact Lines, Drains, and Airways Line Central Line Double Lumen 02/17/18 1310 Peripherally Inserted (PICC) Right Arm 5.0 Vietnamese 18 days Drain Indwelling Urinary Catheter 02/09/18 0838 Temperature Monitoring 16 Fr 26 days GI Feed/Drain 02/22/18 1336 Gastrostomy-Jejunostomy (G-J) Abdomen 18 Fr 13 days Airway Airway Tracheostomy 02/22/18 13 days DATA: Diagnostic tests reviewed for today's visit: Recent Labs 03/06/18 0525 03/05/18 0915 RBC 2.98* -- WBC 7.12 -- HB 10.1* -- HCT 29.5* -- PLT 234 -- NA 140 -- K 4.0 3.7 CHLOR 106 -- CO2 29 -- BUN 47* -- CREAT 0.83 -- GLUC 112* -- CA 8.0* -- MG 2.4 -- TPROT 6.1* -- TBILI 0.6 -- ALKPHOS 65 -- ALT 34 -- AST 39* -- ANION 9 -- Assessment/Plan Acute NSTEMI s/p CABG x 3 -POD#26 -c/w ASA, statin, BB ?? Acute hypoxic AND hypercapneic respiratory failure 2/2 severe COPD -s/p tracheostomy -Vent wean per ICU team ?? Paroxysmal Afib/Aflutter -Rates fairly controlled -c/w Metoprolol AND Diltiazem -c/w Eliquis for OAC ?? Acute encephalopathy -Neuro following -MRI C-spine and T-spine recommended by neuro. ?? Volume Overload -c/w?lasix 40mg PO BID -High for strict IANDO ?? Moderate Protein-Calorie Malnutrition -s/p G-J tube -Tolerating tube feeds. ?? DVT ppx -SCDs AND Eliquis ?? Dispo- await MRI SIGNATURE: Clementine Owen APRN.SPRAY UNIT FEEDER PATIENT NAME: Jeffrey Cullen DATE: March 07, 2018 TIME: 3:15 PM PAGER/CONTACT #: [phone] Patient seen, labs, data, and careplan along with neuro recommendations reviewed with PUBLIC ADDRESS SERVICER. P-continue same RX and follow neuro recs for eval. CASE MANAGEM Observed: 03/07/2018 Status: COMPLETED Source: [place] 10:01 AM [facility] REPOSITORY HNO ID: [id number] Author: Ale MoodyRn) RAINA Key Service: (none) Author Type: Registered Nurse Type: Care Mgt Progress Note Filed: 03/07/2018 10:15 AM Note Text: CARE MANAGEMENT PROGRESS NOTE SERVICE DATE: 03/07/2018 SERVICE TIME: .now LOS: 28 days Needs Prior to Discharge: Discharge Prescriptions;Transportation to Appointments [facility] can accept at [facility] and can take [facility] gtt. Update to jaime Bolaños today--noted neuro rec for mri (discussed with accounts receivable manager). Have inquired about narcotics at [facility] and WILL NOT NEED SCRIPTS. DId speak with sister Trev in [place] re [facility] spec and loc and is agreeable but questions about copay? Did provide her with liason name/no to inquire (no precert needed) Also concerned *wallet and car keys and cell phone and transit authority police officer locked on unit and wants to be sure goes with him at [facility]. SIGNATURE: Ale Key RN PATIENT NAME: Jeffrey Cullen DATE: March 07, 2018 TIME: 10:01 AM PAGER/CONTACT #: [phone] ALLIED HEALTH Observed: 03/07/2018 Status: COMPLETED Source: [place] 9:31 AM [facility] REPOSITORY HNO ID: [id number] Author: David (Ex Phys) Mario Service: Cardiovascular Testing Author Type: Cap Jewel Plate Assembler Type: Allied Health Filed: 03/07/2018 9:32 AM Note Text: Cardiac Rehabilitation Patient Name: Jeffrey Cullen Admission Date: 02/07/2018 Date of Contact: March 07, 2018 Time of Contact: [id number] Jeffrey Cullen was seen post ACS/UT. Phase 2 order was found in [facility]. Provided brochure and information about outpatient Phase 2 Cardiac Rehab. David Martin, Ex Phys PROGRESS Observed: 03/06/2018 Status: COMPLETED Source: [place] 5:16 PM [facility] REPOSITORY HNO ID: [id number] Author: Paulette Contrerasakhia Service: Pulmonary Disease Author Type: Physician Type: Progress Notes Filed: 03/06/2018 7:38 PM Note Text: MICU - PROGRESS NOTE SERVICE DATE: 03/06/2018 SERVICE TIME: 5:16 PM Admission Date: 02/07/2018 AGE: [age] year old LOS: 27 days REASON FOR ICU ADMISSION: Acute respiratory failure, acute encephalopathy Subjective HPI/Interval history: Still ongoing encephalopathy Moving all over, even w/ propofol on board Tachypneic on vent Diaphoretic No past medical history on file. PAST SURGICAL HISTORY Procedure Laterality Date - ORTHOPEDICS SURGERY HX - REPAIR ING HERNIA,5+Y/O,REDUCIBL 1990 Hernia repair, inguinal,left Social History Marital status: Single Spouse name: Years of education: Number of children: Social History Main Topics Smoking status: Current Every Day Smoker Packs/day: 2.00 Years: 25.00 Types: Cigarettes Alcohol use: No Drug use: No Sexual activity: Yes Partners with: Female Other Topics Concern Service No Blood Transfusions No Caffeine Concern No Occupational Exposure No Hobby Hazards No Sleep Concern No Stress Concern No Weight Concern No Special Diet No Back Care No Exercise No Bike Helmet No Seat Belt No Self-Exams No Objective VITAL SIGNS (last 24hrs min/max): Temp Av.3 ?C (99.1 ?F) Min: 36.4 ?C (97.5 ?F) Max: 37.7 ?C (99.9 ?F) Pulse Av.9 Min: 86 Max: 127 No Data Recorded Cuff BP Min: 79/51 Max: 182/153 Pain Score: 7/10 Vital signs reviewed. BP 140/78 Pulse 96 Temp (Src) 99.1 (High Thermistor) Resp 29 Ht 5' 10.984 (1.80m) Wt 226 lb 3.1 oz (102.6kg) SpO2 95% BMI 31.56 kg/(m2). Temp (24hrs), Av.3 ?C (99.1 ?F), Min:36.4 ?C (97.5 ?F), Max:37.7 ?C (99.9 ?F) NET FLUID BALANCE Intake/Output Summary (Last 24 hours) at 03/06/18 1916 Last data filed at 03/06/18 1600 Gross per 24 hour Intake 2077 ml Output 1902 ml Net 175 ml MEDICATIONS Current Facility-Administered Medications: valproic acid 500 mg CUP (DEPAKENE) 500 mg ORAL q 8 H diltiazem 30 mg tab(s) (CARDIZEM) 30 mg NASOGASTRIC q 6 H OLANZapine 10 mg tab(s) (ZyPREXA) 10 mg ORAL BID thiamine 100 mg tab(s) (VITAMIN B1) 100 mg ORAL DAILY melatonin 6 mg tab(s) 6 mg ORAL AT BEDTIME fentaNYL 25 mcg/hr 1 Patch (DURAGESIC) 1 Patch TRANSDERMAL q 72 HR And fentaNYL - VERIFY PATCH OTHER q 8 H pantoprazole 40 mg injection (PROTONIX) 40 mg INTRAVENOUS DAILY (6 AM) metoclopramide HCl 10 mg injection (REGLAN) 10 mg INTRAVENOUS q 6 H PRN propofol infusion (DIPRIVAN) 10-30 mcg/kg/min INTRAVENOUS CONTINUOUS furosemide 40 mg tab(s) (LASIX) 40 mg ORAL BID 9a/5p fentaNYL 50 mcg/mL 50 mcg injection (SUBLIMAZE) 50 mcg INTRAVENOUS q 2 H PRN ipratropium-albuterol 3 mL nebulizer solution (DUONEB) 3 mL INHALATION QID aspirin 81 mg chewable tab(s) 81 mg ORAL DAILY apixaban 5 mg tab(s) (ELIQUIS) 5 mg ORAL BID metoprolol tartrate (short acting) 100 mg tab(s) (LOPRESSOR) 100 mg ORAL q 8 H 0.9% NaCl 20 mL 20 mL INTRAVENOUS PRN 0.9% NaCl 10 mL 10 mL INTRAVENOUS q 12 H bisacodyl 10 mg suppository (DULCOLAX) 10 mg RECTAL DAILY PRN polyethylene glycol 3350 17 g packet (MIRALAX, GLYCOLAX) 17 g ORAL DAILY senna-docusate 8.6-50 mg 1 tablet (SENNA-S) 1 tablet ORAL BID pill splitter (patient-specific) 1 Each Miscell. (Med.Supl.;Non- Drugs) PRN Chlorhexidine Gluconate 0.12 % 15 mL (PERIDEX) 15 mL ORAL q 12 H budesonide 0.5 mg/2 mL 1 mg (PULMICORT) 1 mg INHALATION BID acetaminophen 650 mg tab(s) (TYLENOL) 650 mg ORAL q 6 H PRN potassium chloride iv piggyback 20 mEq in sterile water 100 mL 20 mEq INTRAVENOUS PRN magnesium sulfate in water 2 g in sterile water 50 ml 2 g INTRAVENOUS PRN(NO DISPENSE) albuterol 2.5 mg /3 mL (0.083 %) 2.5 mg (PROVENTIL) 2.5 mg INHALATION q 2 H PRN calcium chloride 1 g in D5W 100 mL 1 g INTRAVENOUS PRN(NO DISPENSE) oxyCODONE-acetaminophen 5-325 mg 1-2 tablet (PERCOCET) 1-2 tablet ORAL q 4 H PRN ondansetron (PF) 4 mg injection (ZOFRAN) 4 mg INTRAVENOUS q 6 H PRN atorvastatin 40 mg tab(s) (LIPITOR) 40 mg ORAL AT BEDTIME Lines, Drains, and Airways Line Central Line Double Lumen 02/17/18 1310 Peripherally Inserted (PICC) Right Arm 5.0 Vietnamese 17 days Drain Indwelling Urinary Catheter 02/09/18 0838 Temperature Monitoring 16 Fr 25 days GI Feed/Drain 02/22/18 1336 Gastrostomy-Jejunostomy (G-J) Abdomen 18 Fr 12 days Airway Airway Tracheostomy 02/22/18 12 days Respiratory/Nursing Documentation: O2 Therapy: Ventilator (03/06/18 155) Invasive Ventilator Mode: Pressure Control Ventilation (changed by physician) (03/06/18 155) Set Ventilator Respiratory Rate (BPM): 15 (03/06/18 155) Total Respiratory Rate (BPM): 34 (03/06/18 155) Tidal Volume Set (mL): 550 (03/06/18 1212) Exhaled Tidal Volume (mL): 636 (03/06/18 155) Minute Volume (L): 17 (03/06/18 155) Peak Inspiratory Pressure (cm H2O): 20 (03/06/18 155) PEEP/CPAP (cm H2O): 5 (03/06/18 155) PHYSICAL EXAMINATION: Constitutional: Vitals-reviewed and noted above. General appearance- Restless, moving in bed, mainly LE, profusely diaphoretic Eyes: Anicteric Trach secured Cardiovascular: RRR Respiratory: Vent sounds appreciated, diminished at bases GI/Abdominal: soft, Neuro: Grimacing to touch DATA: All data reviewed, including, but not limited to, data noted below. All diagnostic tests, including labs/specimens, EKGs, and imaging, were personally reviewed by me. CULTURES: CXR FINDINGS: 03/06: FINDINGS: The tracheostomy tube appears stable. ?There is a stable appearing right ?central venous catheter with its tip in the right atrium. ?There is no visible pneumothorax and the lungs are otherwise clear. ?Heart is nonenlarged. ?Sternotomy ?wires are noted. OTHER DIAGNOSTICS/ IMAGING: Impression/Recommendations Critical Care Documentation: The patient has the following organ/system impairment(s): # Acute, now chronic (3 wks) respiratory failure with trach, prolonged vent; 30%/5 - noted flow dyssynchrony w/ tachypnea # Severe toxic metabolic ? encephalopathy, severe motor restlessness, cognitive impairments; LFT ok,tsh, NH3, lytes ok; no better off reglan/bzd; seems to have intermittent voice localization but not consistent # afib with rvr better; NOAC, bblocker; NSR # s/o CABG POD 25 # Copd FEV1 69% preop # Mild anemia after prolonged icu course, reduced daily labs as stable # LLL atel/?effusion? # Hypoalbuminemia/ Severe protein calorie malnutrition # Recurrent emesis despite JT feeds, off reglan for?48hrs now prn use, tolerating postpyloric PLAN: - Changed to AC/PC; improved tachypnea - Re-discussed w/ neurology; concern for limited UE movement; ordered MRI C spine/T spine w/ and w/o contrast - Will discuss w/ ID if any concern for herpes encephalitis despite MRI brain/nl WBC findings, though doubtful since been afebrile - Cont w/ Zyprexa and valproic acid - Wean propofol - Limit benzos - Duonebs q4h - Daily lasix; tolerating - ASA/stain/BB - Eliquis (DVT prophy also) - Ongoing encephalopathy posing as sig barrier to vent liberation - Thiamine Prognosis: Guarded Code Status: Full Patient/Family Updated: Patient and/or family were updated regarding?the?goals of care,?medical plan for the day, field service consultant recommendations, medical disposition and current medical condition/prognosis as clinically indicated. All questions and concerns, if any, were answered and addressed at this juncture. This patient has a high probability of sudden, clinically significant deterioration, which requires the highest level of physician preparedness to intervene urgently. I managed/supervised life or organ supporting interventions that required frequent physician assessment. I devoted my full attention to the direct care of this patient for the amount of time indicated below. Time I spent with family or surrogate(s) is included only if the patient was incapable of providing the necessary information or participating in medical decision making. Time devoted to teaching and to any procedures I billed separately is not included. Discussed with staff. Time spent providing critical care services: 32 minutes, excluding procedures. SIGNATURE: Paulette Aguilar MD [facility] PAGER:[phone] DATE of SERVICE: March 06, 2018 TIME of SERVICE: 5:16 PM CONSULT PROG Observed: 03/06/2018 Status: COMPLETED Source: [place] 4:46 PM CLINIC OTHER CAMPUS REPOSITORY HNO ID: [id number] Author: Guillermina Umana Service: Neurology Author Type: Physician Type: Consult Progress Note Filed: 03/06/2018 5:31 PM Note Text: NEUROLOGY CONSULT PROGRESS NOTE SERVICE DATE: 03/06/2018 SERVICE TIME: 1646 Current Attending Provider: Beata Marin Subjective Interval History: Today, Jeffrey is not changed. He continues to writhe in bed. Valproic acid changed to oral liquid. Continues to be subtherapeutic. Objective Physical Examination: Neurological: Writhing in bed. Not orientated at all. Grimaces to touching of the arms. More movement of legs than arms. Pupils reactive. Complete mobilization of all parts of face with grimace. Pulm: CTAB, healing midline sternotomy site CVS: Tachy New Labs: WBC (thou/cmm) Date Value 03/06/2018 7.12 03/03/2018 8.16 03/01/2018 5.85 RBC (mil/cmm) Date Value 03/06/2018 2.98 03/03/2018 3.49 03/01/2018 2.94 Platelet Count (thou/cmm) Date Value 03/06/2018 234 03/03/2018 294 03/01/2018 273 BUN (mg/dL) Date Value 03/06/2018 47 03/04/2018 30 03/03/2018 25 Creatinine (mg/dL) Date Value 03/06/2018 0.83 03/04/2018 1.00 03/03/2018 0.85 CBC, Coags, BMP, Mg, Phos Recent Labs 03/06/1852403/05/18 0915 03/04/189 NA 140 -- 142 K 4.0 3.7 3.9 CHLOR 106 -- 105 CO2 29 -- 30 GLUC 112* -- 117* CA 8.0* -- 9.1 MG 2.4 -- -- Liver Function, Amylase, AND Lipase Recent Labs 03/06/1852403/04/18428 TPROT 6.1* 7.2 ALB 2.0* 2.4* ALT 34 49 AST 39* 31 ALKPHOS 65 85 TBILI 0.6 0.5 BEM Reading: Nothing new DATA: Diagnostic tests reviewed for today's visit: Most recent labs and imaging results. Impression/Recommendations Encephalopathy POA: Unknown Assessment AND Plan: Multifactoral encephalopathy, but primary cause is uncertain at this time. Does not appear to be structural given negative neuroimaging. No seizure activity on BEM. Have attempted to wean propofol. Have used zyprexa and valproic acid. 1. Given writhing noted on exam and grimace with any touch of the upper ext, consider increasing pain control, either increasing fentanyl patch or retrying fentanyl drip 2. Avoid anticholinergic, antihistamines, sedatives meds 3. Due to not moving arms - MRI C-spine and T-spine with and without contrast 4. If there is no findings on this evaluation could do lumbar puncture SIGNATURE: Manuel Peace MD PATIENT NAME: Jeffrey Cullen DATE: March 06, 2018 TIME: 4:46 PM PAGER/CONTACT #: [phone] THE NEURO ICU MANAGEMENT OF THIS PATIENT WAS DISCUSSED WITH THE NSICU TEAM UNDER DR. Umana I have reviewed the progress note obtained and documented by the resident, Dr. Peace and I personally participated in the hernandez components. I have discussed the case and management of the patient's care. The following comments revise or confirm relevant hernandez components of the note. I have repeated the examination and confirm the findings except as documented. PATIENT PROBLEMS I REVIEWED, REVISED AND/OR INITIATED: The care of this patient required my full attention and direct personal management of: Active Problems: NSTEMI (non-ST elevated myocardial infarction) (HCC) NSVT (nonsustained ventricular tachycardia) (HCC) Nicotine use disorder, F17.2 Malnutrition of moderate degree (HCC) Encephalopathy Resolved Problems: * No resolved hospital problems. * PLAN, IMPRESSION AND ACTION(S) TAKEN Chart reviewed, Pt. examined, and care d/w the NSICU resident, and SICU PUBLIC ADDRESS SERVICER, and the bedside nurse. Our findings and rewcommendations are summarized int he resident Note above. Pt. is encephalopahis with inability to follow commands. not tracking visually, with minimal blink to threat, and not mouthing words. Also grimacing to pain, but no purposeful localization to pin hte the UE and no movement in the mid to distal ue bilat. Concerned that there may be a lesion at the cervical +/- thoracic spine. Receommend a C andT spine MRI with contrast. If no major findings, then recommend an LP to r/o inflammation/infection. Please see the documented [id number] plan in the updated problem list. Guillermina Umana MD Staff, Neurointensive Care [facility] [place] Date of Service: 03/06/2018 Time of Service: 5:24 PM This is an electronically created document. If printed, please do not remove from the chart or modify printed copy. CASE MANAGEM Observed: 03/06/2018 Status: COMPLETED Source: [place] 4:00 PM [facility] REPOSITORY HNO ID: [id number] Author: Angelica MoodyRn) RAINA Malcolm Service: Care Management Author Type: Registered Nurse Type: Care Mgt Progress Note Filed: 03/06/2018 4:01 PM Note Text: Plan is for [facility] at discharge, still with severe toxic encephalopathy, restlessness, cont to follow for dc needs. PROGRESS Observed: 03/06/2018 Status: COMPLETED Source: [place] 10:00 AM [facility] OTHER [place] REPOSITORY HNO ID: [id number] Author: Clementine Owen Service: Cardiovascular Surgery Author Type: Nurse Practitioner Type: Progress Notes Filed: 03/06/2018 4:00 PM Note Text: CARDIOTHORACIC SURGERY POSTOP PROGRESS NOTE SERVICE DATE: 03/06/2018 SERVICE TIME: 10:00am Subjective LOS: 27 INTERVAL EVENTS / PERTINENT ROS: No changes. Still restless and agitated. Objective Admission Weight: 104.3 kg (229 lb 15 oz) BP 107/93 Pulse 96 Temp 37.3 ?C (99.1 ?F) (High Thermistor) Resp 18 Ht 180.3 cm (5' 10.98) Wt 102.6 kg (226 lb 3.1 oz) SpO2 93% BMI 31.56 kg/m2 Body surface area is 2.27 meters squared. Min/Max/Average Temperature AND Blood Pressure: Temp (24hrs), Av.3 ?C (99.1 ?F), Min:36.4 ?C (97.5 ?F), Max:37.7 ?C (99.9 ?F) Systolic (24hrs), Av , Min:79 , Max:182 Diastolic (24hrs), Av, Min:51, Max:153 Intake/Output Summary (Last 24 hours) at 03/06/18 1556 Last data filed at 03/06/18 0800 Gross per 24 hour Intake 3282 ml Output 1090 ml Net 2192 ml Current Facility-Administered Medications: - valproic acid 500 mg CUP (DEPAKENE) - diltiazem 30 mg tab(s) (CARDIZEM) - OLANZapine 10 mg tab(s) (ZyPREXA) - thiamine 100 mg tab(s) (VITAMIN B1) - melatonin 6 mg tab(s) - fentaNYL 25 mcg/hr 1 Patch (DURAGESIC) AND [START ON 03/07/2018] fentaNYL - REMOVE PATCH AND fentaNYL - VERIFY PATCH - pantoprazole 40 mg injection (PROTONIX) - metoclopramide HCl 10 mg injection (REGLAN) - propofol infusion (DIPRIVAN) - furosemide 40 mg tab(s) (LASIX) - fentaNYL 50 mcg/mL 50 mcg injection (SUBLIMAZE) - ipratropium-albuterol 3 mL nebulizer solution (DUONEB) - aspirin 81 mg chewable tab(s) - apixaban 5 mg tab(s) (ELIQUIS) - metoprolol tartrate (short acting) 100 mg tab(s) (LOPRESSOR) - 0.9% NaCl 20 mL - 0.9% NaCl 10 mL - bisacodyl 10 mg suppository (DULCOLAX) - polyethylene glycol 3350 17 g packet (MIRALAX, GLYCOLAX) - senna-docusate 8.6-50 mg 1 tablet (SENNA-S) - pill splitter (patient-specific) - Chlorhexidine Gluconate 0.12 % 15 mL (PERIDEX) - budesonide 0.5 mg/2 mL 1 mg (PULMICORT) - acetaminophen 650 mg tab(s) (TYLENOL) - potassium chloride iv piggyback 20 mEq in sterile water 100 mL - magnesium sulfate in water 2 g in sterile water 50 ml - albuterol 2.5 mg /3 mL (0.083 %) 2.5 mg (PROVENTIL) - calcium chloride 1 g in D5W 100 mL - oxyCODONE-acetaminophen 5-325 mg 1-2 tablet (PERCOCET) - ondansetron (PF) 4 mg injection (ZOFRAN) - atorvastatin 40 mg tab(s) (LIPITOR) TELEMETRY: sinus tachycardia PHYSICAL EXAM: General Appearance: restless, moving around in bed. Does not follow commands Skin: Midsternal incision dry AND intact. and SVG incisions dry AND intact. Lungs: respiratory effort: abnormal and coarse Heart: regular rhythm and S1, S2 normal Abdomen: soft and bowel sounds present Lines, Drains, and Airways Line Central Line Double Lumen 02/17/18 1310 Peripherally Inserted (PICC) Right Arm 5.0 Vietnamese 17 days Drain Indwelling Urinary Catheter 02/09/18 0838 Temperature Monitoring 16 Fr 25 days GI Feed/Drain 02/22/18 1336 Gastrostomy-Jejunostomy (G-J) Abdomen 18 Fr 12 days Airway Airway Tracheostomy 02/22/18 12 days DATA: Diagnostic tests reviewed for today's visit: Recent Labs 03/06/18 0525 03/05/18 0915 03/04/18 0429 RBC 2.98* -- -- WBC 7.12 -- -- HB 10.1* -- -- HCT 29.5* -- -- PLT 234 -- -- NA 140 -- 142 K 4.0 3.7 3.9 CHLOR 106 -- 105 CO2 29 -- 30 BUN 47* -- 30* CREAT 0.83 -- 1.00 GLUC 112* -- 117* CA 8.0* -- 9.1 MG 2.4 -- -- TPROT 6.1* -- 7.2 TBILI 0.6 -- 0.5 ALKPHOS 65 -- 85 ALT 34 -- 49 AST 39* -- 31 ANION 9 -- 11 Assessment/Plan Acute NSTEMI s/p CABG x 3 -POD#25 -c/w ASA, statin, BB ?? Acute hypoxic AND hypercapneic respiratory failure 2/2 severe COPD -s/p tracheostomy -Vent wean per ICU team ?? Paroxysmal Afib/Aflutter -Rates fairly controlled -c/w Metoprolol AND Diltiazem -c/w Eliquis for OAC ?? Acute encephalopathy -Neuro following -c/w current regimen for now. D/w neuro ?? Volume Overload -c/w?lasix 40mg PO BID -High for strict IANDO ? Moderate Protein-Calorie Malnutrition -s/p G-J tube -Tolerating tube feeds. ?? DVT ppx -SCDs AND Eliquis ?? Dispo- to be discharged to [facility]; discuss with neuro when appropriate to discharge. ?? SIGNATURE: Clementine Owen APRN.SPRAY UNIT FEEDER PATIENT NAME: Jeffrey Cullen DATE: March 06, 2018 TIME: 3:56 PM PAGER/CONTACT #: [phone] [id number] NUTRITION Observed: 03/06/2018 Status: COMPLETED Source: [place] 9:48 AM [facility] OTHER CAMPUS REPOSITORY O ID: [id number] Author: Sandra Alvarado) TREASURE Almaguer Service: Nutrition Therapy Author Type: Registered Dietitian Type: Nutrition Filed: 03/06/2018 1:48 PM Note Text: NUTRITION THERAPY PROGRESS NOTE SERVICE DATE: 03/06/2018 SERVICE TIME: 9:48 AM RECOMMENDED DIAGNOSIS: MILD PROTEIN-CALORIE MALNUTRITION per Registered Dietitian on 03/02/18 NUTRITION CARE PLAN Problem, Etiology and Signs/Symptoms: Suboptimal oral intake related to respiratory status, unable to eat by mouth as evidenced by NPO, tube feeding by PEG Intervention: Impact Peptide at goal rate 56 ml/hr to provide via PEG-J tube 1344 ml product - 2016 kcal, 126.3 gm protein, and 1034.9 ml free water. Flush at 200 ml 6 times per day. (Fluid volume with TF over 24 hours - 2234 ml) ?? Propofol at 13.09 providing 346 kcal. Coordination of Care: Nursing Monitor and Evaluation: Goal: Meet >75% of estimated needs Monitor fluid/electrolyte balance Monitor labs, I/Os, vital signs, weight Monitor tolerance to tube feeding Discharge Nutrition Recommendations: Enteral/Tube feeding: Impact Peptide at goal rate 56 ml/hr. Flush at 200 ml 6 times per day. ?? Chart reviewed for follow-up for tube feeding Per HPI: 67 year old male patient with no known PMH other than long history of smoking ( 2packs a day for more than 30 years) Earlier 02/07/18?he was sitting and suddenly started having substernal chest pain, pain is intermittent with no radiation, he felt nauseas but no vomiting and no diaphoresis.This pain kept coming so he went to the ER. Underwent LHC on 02/08/18 showed need for CABG, underwent CABG on 02/09/18. Chest tubed pulled 02/11. ?Remains on vent support. ?Noted residuals and tube feeding held at present. ?Started on Reglan daily from PRN. ?02/16/18 Patient remains intubated this AM. No significant residuals noted greater than 100 cc. Toleration of tube feeding improving. ?02/20/18 ?Remains on vent support, tube feeding held at present for residual 280 ml. ?PICC placed on 02/17. ?Noted plan for trach and PEJ, if unable to extubate soon. ?Met with RN reports residual decreasing with plans to restart TF. ?BM 02/16. ? Interval History: Continues on tube feeding and vent support, awaiting transfer to [facility]. ?BM 03/04/18. Neurology following ACTIVE PROBLEM LIST Inguinal Hernia Without Mention of Obstruction Or Gangrene, Unilateral Or Unspecified, (Not Specified As Recurrent) Nstemi (Non-St Elevated Myocardial Infarction) (Hcc) Nsvt (Nonsustained Ventricular Tachycardia) (Hcc) Nicotine use disorder, F17.2 Malnutrition of Moderate Degree (Hcc) Encephalopathy No past medical history on file. PAST SURGICAL HISTORY Procedure Laterality Date - ORTHOPEDICS SURGERY HX - REPAIR ING HERNIA,5+Y/O,REDUCIBL 1989 Hernia repair, inguinal,left Present Diet Order: NPO and Tube Feeding Impact Peptide at 56 mL/hr Nutritional Intake: >75% estimated energy needs over the past 11 day(s), tolerating TF well via PEJ Admission Weight: 104.3 kg (229 lb 15 oz) Current Weight: 102.6 kg (226 lb 3.1 oz) Body mass index is 31.56 kg/(m2). class 1 obesity Weight decrease noted 1.7 kg loss from admission weight Weight down 2.4 kg over past 4 days. Edema generalized non-pitting, bilateral lower extremity 1+ Last 12 Encounter Wt Readings: Date: Wt: 02/07/2018 102.6 kg (226 lb 3.1 oz) 02/07/2018 104.3 kg (230 lb) 12/04/2007 100.2 kg (221 lb) ALLERGIES No Known Allergies Current Facility-Administered Medications: diltiazem 30 mg tab(s) (CARDIZEM) 30 mg NASOGASTRIC q 6 H OLANZapine 10 mg tab(s) (ZyPREXA) 10 mg ORAL BID thiamine 100 mg tab(s) (VITAMIN B1) 100 mg ORAL DAILY melatonin 6 mg tab(s) 6 mg ORAL AT BEDTIME fentaNYL 25 mcg/hr 1 Patch (DURAGESIC) 1 Patch TRANSDERMAL q 72 HR And fentaNYL - VERIFY PATCH OTHER q 8 H pantoprazole 40 mg injection (PROTONIX) 40 mg INTRAVENOUS DAILY (6 AM) valproate sodium 500 mg in NaCl 0.9% 100 mL (DEPACON) 500 mg INTRAVENOUS q 8 H metoclopramide HCl 10 mg injection (REGLAN) 10 mg INTRAVENOUS q 6 H PRN propofol infusion (DIPRIVAN) 10-30 mcg/kg/min INTRAVENOUS CONTINUOUS furosemide 40 mg tab(s) (LASIX) 40 mg ORAL BID 9a/5p fentaNYL 50 mcg/mL 50 mcg injection (SUBLIMAZE) 50 mcg INTRAVENOUS q 2 H PRN ipratropium-albuterol 3 mL nebulizer solution (DUONEB) 3 mL INHALATION QID aspirin 81 mg chewable tab(s) 81 mg ORAL DAILY apixaban 5 mg tab(s) (ELIQUIS) 5 mg ORAL BID metoprolol tartrate (short acting) 100 mg tab(s) (LOPRESSOR) 100 mg ORAL q 8 H 0.9% NaCl 20 mL 20 mL INTRAVENOUS PRN 0.9% NaCl 10 mL 10 mL INTRAVENOUS q 12 H bisacodyl 10 mg suppository (DULCOLAX) 10 mg RECTAL DAILY PRN polyethylene glycol 3350 17 g packet (MIRALAX, GLYCOLAX) 17 g ORAL DAILY senna-docusate 8.6-50 mg 1 tablet (SENNA-S) 1 tablet ORAL BID pill splitter (patient-specific) 1 Each Miscell. (Med.Supl.;Non- Drugs) PRN Chlorhexidine Gluconate 0.12 % 15 mL (PERIDEX) 15 mL ORAL q 12 H budesonide 0.5 mg/2 mL 1 mg (PULMICORT) 1 mg INHALATION BID acetaminophen 650 mg tab(s) (TYLENOL) 650 mg ORAL q 6 H PRN potassium chloride iv piggyback 20 mEq in sterile water 100 mL 20 mEq INTRAVENOUS PRN magnesium sulfate in water 2 g in sterile water 50 ml 2 g INTRAVENOUS PRN(NO DISPENSE) albuterol 2.5 mg /3 mL (0.083 %) 2.5 mg (PROVENTIL) 2.5 mg INHALATION q 2 H PRN calcium chloride 1 g in D5W 100 mL 1 g INTRAVENOUS PRN(NO DISPENSE) oxyCODONE-acetaminophen 5-325 mg 1-2 tablet (PERCOCET) 1-2 tablet ORAL q 4 H PRN ondansetron (PF) 4 mg injection (ZOFRAN) 4 mg INTRAVENOUS q 6 H PRN atorvastatin 40 mg tab(s) (LIPITOR) 40 mg ORAL AT BEDTIME Surgical Incision 02/09/18 Chest - Midsternal (Active) Dressing Status Clean, Dry AND Intact 03/06/2018 8:00 AM Frequency of Dressing Change As Needed 03/06/2018 8:00 AM Incision Closures Topical Skin Adhesive 03/06/2018 8:00 AM Drainage Description None 03/06/2018 8:00 AM Drainage Amount None 03/06/2018 8:00 AM Edges Clear 03/06/2018 8:00 AM Hematoma No 03/06/2018 8:00 AM Number of days:25 Surgical Incision 02/09/18 Leg - Left (Active) Dressing Status Clean, Dry AND Intact 03/06/2018 8:00 AM Frequency of Dressing Change As Needed 03/06/2018 8:00 AM Incision Closures Topical Skin Adhesive 03/06/2018 8:00 AM Drainage Description None 03/06/2018 8:00 AM Drainage Amount None 03/06/2018 8:00 AM Edges Clear 03/06/2018 8:00 AM Hematoma No 03/06/2018 8:00 AM Number of days:25 MNT Billing Type: Re-assess/15 min 2 units SIGNATURE: Sandra Almaguer RD, LD PATIENT NAME: Jeffrey Cullen DATE: March 06, 2018 TIME: 9:48 AM PAGER: [phone] CHEST 1 VIEW Observed: 03/06/2018 Status: F Source: [facility] 5:43 AM HEALTH SYSTEM REPOSITORY Performed at [facility] APPROVED BY: Ismael Marin MD EXAM TITLE: CHEST 1 VIEW DATE: 03/06/2018 05:23 INDICATION: Dyspnea COMPARISON: 03/04/2018 FINDINGS: The tracheostomy tube appears stable. There is a stable appearing right central venous catheter with its tip in the right atrium. There is no visible pneumothorax and the lungs are otherwise clear. Heart is nonenlarged. Sternotomy wires are noted. IMPRESSION: Stable appearance. HEMOGRAM Collected: 03/06/2018 Status: F Source: [facility] 5:25 AM HEALTH SYSTEM REPOSITORY TYPE CODE TESTS RESULT OUT OF REFERENCE UNITS RANGE LAB WBC(LOINC) 4.23-9.07 thou/cmm WBC 7.12 LAB RBC(LOINC) 4.63-6.08 mil/cmm Low RBC 2.98 LAB HGB(LOINC) 13.7-17.5 g/dL Low Hgb 10.1 LAB HCT(LOINC) 40.1-51.0 % Low Hct 29.5 LAB MCV(LOINC) 83.2-95.6 fl High MCV 99.0 LAB MCH(LOINC) 25.7-32.2 pg High MCH 33.9 LAB MCHC(LOINC) 32.3-36.5 % MCHC 34.2 LAB RDW(LOINC) 11.6-14.4 % RDW 14.1 LAB RDWSD(LOINC 36.1-45.8 fl ) High RDW SD 51.6 LAB PLT(LOINC) 141-365 thou/cmm Platelet 234 LAB MPV(LOINC) 8.7-12.0 fl MPV 10.1 Performed By: #### CBC1 #### [facility] [address] [place] [address] VALPROIC ACID,RAND. Collected: 03/06/2018 Status: F Source: [facility] 5:25 AM HEALTH SYSTEM REPOSITORY TYPE CODE TESTS RESULT OUT OF REFERENCE UNITS RANGE LAB VALPR(LOINC 50-100 mg/L ) Low Valproic 29 Acid,[place]. Performed By: #### VALPR #### [facility] [address] [address] COMPREHENSIVE PANEL Collected: 03/06/2018 Status: F Source: [facility] 5:25 AM HEALTH SYSTEM REPOSITORY TYPE CODE TESTS RESULT OUT OF REFERENCE UNITS RANGE LAB NA(LOINC) 136-145 mEq/L Sodium Blood 140 LAB K(LOINC) 3.5-5.1 mEq/L Potassium Blood 4.0 LAB CL(LOINC) 98-107 mEq/L Chloride Blood 106 LAB CO2(LOINC) 21-32 mEq/L CO2 Blood 29 LAB BUN(LOINC) 7-18 mg/dL BUN Blood High 47 LAB CREA(LOINC 0.67-1.17 mg/dL ) Creatinine Blood 0.83 LAB CA(LOINC) 8.5-10.1 mg/dL Low Calcium Blood 8.0 LAB ALB(LOINC) 3.4-5.0 g/dL Low Albumin Blood 2.0 LAB TP(LOINC) 6.4-8.2 g/dL Low Total Protein 6.1 LAB AST(LOINC) 9-37 U/L AST-SGOT High Blood 39 LAB ALKP(LOINC 46-116 U/L ) Alk Phosphatase 65 LAB BILIT(LOIN 0.2-1.0 mg/dL C) Total Bilirubin 0.6 LAB ANGAP(LOIN 8-16 C) Anion Gap 9 LAB GLU(LOINC) 70-99 mg/dL Glucose High Blood 112 LAB ALT(LOINC) 12-78 U/L ALT-SGPT Blood 34 Performed By: #### P14 #### [facility] [address] [address] MAGNESIUM BLOOD Collected: 03/06/2018 Status: F Source: [facility] 5:25 AM HEALTH SYSTEM REPOSITORY TYPE CODE TESTS RESULT OUT OF REFERENCE UNITS RANGE LAB MAG(LOINC) 1.6-2.6 mg/dL Magnesium Blood 2.4 Performed By: #### MAG #### [facility] [address] [id number] MDRD GFR Collected: 03/06/2018 Status: F Source: [facility] 5:25 AM HEALTH SYSTEM REPOSITORY TYPE CODE TESTS RESULT OUT OF RANGE REFERENCE UNITS LAB GFRFN(LOINC >60mL/min/1.73m ) 2 eGFR >60 Result Comment: If the patient is , multiply the result by 1.210. Performed By: #### GFR #### [facility] [address] [place], [place] [address] PROGRESS Observed: 03/05/2018 Status: COMPLETED Source: [place] 7:41 PM CLINIC OTHER CAMPUS REPOSITORY HNO ID: [id number] Author: Carlos Hayward Service: Critical Care Author Type: Physician Type: Progress Notes Filed: 03/05/2018 7:54 PM Note Text: NEUROLOGY CONSULT PROGRESS NOTE SERVICE DATE: 03/05/2018 SERVICE TIME: 6PM Current Attending Provider: Beata Marin Subjective Interval History: No change in exam. Primary team increased his zyprexa Objective Physical Examination: Neurological: ? Pt is sedated on propofol. Eyes open to voice. Has an upgaze preference. Pupils equally round and reactive. Not following commands. No blink to threat. Moving extremities spontaneously. New Labs: WBC (thou/cmm) Date Value 03/03/2018 8.16 03/01/2018 5.85 02/27/2018 8.62 RBC (mil/cmm) Date Value 03/03/2018 3.49 03/01/2018 2.94 02/27/2018 3.26 Platelet Count (thou/cmm) Date Value 03/03/2018 294 03/01/2018 273 02/27/2018 277 BUN (mg/dL) Date Value 03/04/2018 30 03/03/2018 25 03/01/2018 17 Creatinine (mg/dL) Date Value 03/04/2018 1.00 03/03/2018 0.85 03/01/2018 0.63 CBC, Coags, BMP, Mg, Phos Recent Labs 03/04/1842803/03/18 0430 NA 142 140 K 3.9 4.0 CHLOR 105 106 CO2 30 31 GLUC 117* 99 CA 9.1 8.5 MG -- 2.1 Liver Function, Amylase, AND Lipase Recent Labs 03/04/1842803/03/18 0430 03/01/18 1607 TPROT 7.2 6.6 6.3* ALB 2.4* 2.3* 2.2* ALT 49 53 32 AST 31 39* 26 ALKPHOS 85 95 91 TBILI 0.5 0.4 0.4 DATA: Diagnostic tests reviewed for today's visit: Most recent labs and imaging results. Amm- 17 VPA level- 41 Impression/Recommendations Encephalopathy, multifactorial STAFF COORDINATION OF CRITICAL CARE [facility] Staff Physician note of personal involvement in Care The patient is critically ill because of imminent risk of severe encephalopathy and continues to require intensive support and observation. This patient has a high probability of sudden, clinically significant deterioration, which requires the highest level of physician preparedness to intervene urgently. I managed/supervized life or organ supporting interventions that required frequent physician assessment. I devoted my full attention to the direct care of this patient for the amount of time indicated below. Time I spent with family or surrogate(s) is included only if the patient was incapable of providing the necessary information or participating in medical decision making. Time devoted to teaching or to any procedures I billed separately is not included. CRITICAL CARE: I personally spent 32 minutes of critical care time involved in the care of this patient. ==== Encephalopathy (TSH, B12 okay; MRI negative for acute process; EEG shows CSG). Anesthesia record without PLAN, IMPRESSION AND ACTION(S) TAKEN Wean off propofol. His exam is confounded by the sedation. Continue with the zyprexa (would favor using seroquel if no contraindications; Qtc on 02/28 was 460ms). Melatonin 6mg qhs; sleep hygiene Continue to avoid medications such as anticholinergics, antihistamines, sedatives and minimize opioid use. Continue VPA (level 41; ammonia 17) for his behavior; check level in the AM Cont thiamine 100mg daily; F/u B1 level One consideration is to try ambien dosed in the AM as a neurostimulant if exam does not improve once off sedation and with improved sleep hygiene Please see the documented [id number] plan in the updated problem list. Carlos Hayward DO Staff, Neurointensive Care [facility] [place] Date of Service: 03/05/2018 Time of Service: 6:16 PM This is an electronically created document. If printed, please do not remove from the chart or modify printed copy. PROGRESS Observed: 03/05/2018 Status: COMPLETED Source: [place] 2:49 PM CLINIC OTHER CAMPUS REPOSITORY HNO ID: [id number] Author: Ten Gonsales Service: Pulmonary Disease Author Type: Physician Type: Progress Notes Filed: 03/05/2018 2:54 PM Note Text: MICU - PROGRESS NOTE SERVICE DATE: 03/05/2018 SERVICE TIME: 2:49 PM Admission Date: 02/07/2018 AGE: [age] year old LOS: 26 days REASON FOR ICU ADMISSION: S/P Surgery Objective No family here, ?[place] Still episodes of anxiety, hyperdynamic Weans for me PSV 8/5 good but sedated TF good afib good Propofol still 20 mcg/ No past medical history on file. PAST SURGICAL HISTORY Procedure Laterality Date - ORTHOPEDICS SURGERY HX - REPAIR ING HERNIA,5+Y/O,REDUCIBL 1990 Hernia repair, inguinal,left Social History Marital status: Single Spouse name: Years of education: Number of children: Social History Main Topics Smoking status: Current Every Day Smoker Packs/day: 2.00 Years: 25.00 Types: Cigarettes Alcohol use: No Drug use: No Sexual activity: Yes Partners with: Female Other Topics Concern Service No Blood Transfusions No Caffeine Concern No Occupational Exposure No Hobby Hazards No Sleep Concern No Stress Concern No Weight Concern No Special Diet No Back Care No Exercise No Bike Helmet No Seat Belt No Self-Exams No VITAL SIGNS (last 24hrs min/max): Temp Av.1 ?C (98.7 ?F) Min: 36.6 ?C (97.9 ?F) Max: 37.6 ?C (99.7 ?F) Pulse Av.6 Min: 68 Max: 127 No Data Recorded Cuff BP Min: 70/45 Max: 156/92 Pain Score: 8/10 Vital signs reviewed. BP 150/99 Pulse 127 Temp (Src) 97.9 (Core) Resp 26 Ht 5' 10.984 (1.80m) Wt 217 lb 13 oz (98.8kg) SpO2 89% BMI 30.39 kg/(m2). Temp (24hrs), Av.1 ?C (98.7 ?F), Min:36.6 ?C (97.9 ?F), Max:37.6 ?C (99.7 ?F) NET FLUID BALANCE Intake/Output Summary (Last 24 hours) at 03/05/18 1449 Last data filed at 03/05/18 1200 Gross per 24 hour Intake 3448 ml Output 628 ml Net 2820 ml MEDICATIONS Current Facility-Administered Medications: diltiazem 30 mg tab(s) (CARDIZEM) 30 mg NASOGASTRIC q 6 H fentaNYL 25 mcg/hr 1 Patch (DURAGESIC) 1 Patch TRANSDERMAL q 72 HR And fentaNYL - VERIFY PATCH OTHER q 8 H pantoprazole 40 mg injection (PROTONIX) 40 mg INTRAVENOUS DAILY (6 AM) valproate sodium 500 mg in NaCl 0.9% 100 mL (DEPACON) 500 mg INTRAVENOUS q 8 H metoclopramide HCl 10 mg injection (REGLAN) 10 mg INTRAVENOUS q 6 H PRN OLANZapine 7.5 mg tab(s) (ZyPREXA) 7.5 mg ORAL BID propofol infusion (DIPRIVAN) 10-30 mcg/kg/min INTRAVENOUS CONTINUOUS furosemide 40 mg tab(s) (LASIX) 40 mg ORAL BID 9a/5p fentaNYL 50 mcg/mL 50 mcg injection (SUBLIMAZE) 50 mcg INTRAVENOUS q 2 H PRN ipratropium-albuterol 3 mL nebulizer solution (DUONEB) 3 mL INHALATION QID aspirin 81 mg chewable tab(s) 81 mg ORAL DAILY apixaban 5 mg tab(s) (ELIQUIS) 5 mg ORAL BID metoprolol tartrate (short acting) 100 mg tab(s) (LOPRESSOR) 100 mg ORAL q 8 H 0.9% NaCl 20 mL 20 mL INTRAVENOUS PRN 0.9% NaCl 10 mL 10 mL INTRAVENOUS q 12 H bisacodyl 10 mg suppository (DULCOLAX) 10 mg RECTAL DAILY PRN polyethylene glycol 3350 17 g packet (MIRALAX, GLYCOLAX) 17 g ORAL DAILY senna-docusate 8.6-50 mg 1 tablet (SENNA-S) 1 tablet ORAL BID pill splitter (patient-specific) 1 Each Miscell. (Med.Supl.;Non- Drugs) PRN Chlorhexidine Gluconate 0.12 % 15 mL (PERIDEX) 15 mL ORAL q 12 H budesonide 0.5 mg/2 mL 1 mg (PULMICORT) 1 mg INHALATION BID acetaminophen 650 mg tab(s) (TYLENOL) 650 mg ORAL q 6 H PRN potassium chloride iv piggyback 20 mEq in sterile water 100 mL 20 mEq INTRAVENOUS PRN magnesium sulfate in water 2 g in sterile water 50 ml 2 g INTRAVENOUS PRN(NO DISPENSE) albuterol 2.5 mg /3 mL (0.083 %) 2.5 mg (PROVENTIL) 2.5 mg INHALATION q 2 H PRN calcium chloride 1 g in D5W 100 mL 1 g INTRAVENOUS PRN(NO DISPENSE) oxyCODONE-acetaminophen 5-325 mg 1-2 tablet (PERCOCET) 1-2 tablet ORAL q 4 H PRN ondansetron (PF) 4 mg injection (ZOFRAN) 4 mg INTRAVENOUS q 6 H PRN atorvastatin 40 mg tab(s) (LIPITOR) 40 mg ORAL AT BEDTIME Lines, Drains, and Airways Line Central Line Double Lumen 02/17/18 1310 Peripherally Inserted (PICC) Right Arm 5.0 Vietnamese 16 days Drain Indwelling Urinary Catheter 02/09/18 0838 Temperature Monitoring 16 Fr 24 days GI Feed/Drain 02/22/18 1336 Gastrostomy-Jejunostomy (G-J) Abdomen 18 Fr 11 days Airway Airway Tracheostomy 02/22/18 11 days Respiratory/Nursing Documentation: O2 Therapy: Ventilator (03/05/181213) Invasive Ventilator Mode: Pressure Regulated Volume Control (03/05/181213) Set Ventilator Respiratory Rate (BPM): 15 (03/05/181213) Total Respiratory Rate (BPM): 17 (03/05/181213) Tidal Volume Set (mL): 550 (03/05/181213) Exhaled Tidal Volume (mL): 611 (03/05/181213) Minute Volume (L): 13 (03/05/18 0920) Peak Inspiratory Pressure (cm H2O): 29 (03/05/18 121) PEEP/CPAP (cm H2O): 5 (04/08/18 1214) HEMODYNAMIC DATA: reviewed CXR FINDINGS: OTHER IMAGING: DATA: Diagnostic tests reviewed for today's visit: Most recent labs and imaging results REVIEWED. LABS: Recent Labs 03/05/18 0915 03/04/18 0429 03/03/18 0430 WBC -- -- 8.16 RBC -- -- 3.49* HB -- -- 11.1* HCT -- -- 34.4* MCV -- -- 98.6* PLT -- -- 294 GLUC -- 117* 99 BUN -- 30* 25* CREAT -- 1.00 0.85 NA -- 142 140 K 3.7 3.9 4.0 CHLOR -- 105 106 CO2 -- 30 31 TPROT -- 7.2 6.6 ALB -- 2.4* 2.3* CA -- 9.1 8.5 ALKPHOS -- 85 95 TBILI -- 0.5 0.4 AST -- 31 39* ALT -- 49 53 MG -- -- 2.1 ABG: Invalid input(s): [id number] Assessment/Plan PROBLEMS: acute (now chronic 3 weeks) respiratory failure with trach, prolonged vent; 30%/5/psv 8 Severe toxic Met encephalopathy, severe motor restlessness, cognitive impairments; LFT ok,tsh, NH3, lytes ok; no better off reglan/bzd; some better with voice localization. ?? afib with rvr better; NOAC, bblocker; NSR ? cabg day 24 Copd FEV1 69% preop HCAP reported 02/11 recent EColi/Kleb, normal wbc; sputum Pending Mild anemia after prolonged icu course, reduced daily labs as stable ?LLL atel/?effusion? Hypoalbuminemia Recurrent emesis despite JT feeds, off reglan for 48hrs now prn use, tolerating postpyloric ? CRITICAL CARE PLAN: 1. DCd seroquel as ineffective; off?dexmed and no BZD for now; small fentanyl as wild, thrashing, ?pain; NEW inc ZYPREXA AND iv DEPAKOTE, then?wean off propofol and hope emerges better; =discussed with neuro Dr Camacho. 2. Noted ?MRI ?good pictures neg overall; has LUE weakness,?peripheral neuropathy, ?brachial plexopathy 3. Post pyloric TF; restarted reglan prn 4. Tried psv 8-12/5 weans, did ok , until very agitated/tachypnea then limits; ?trach collar soon 5. cxr ok 6. vbg good pC02 51 last check 7. Neuro ?reevaluated 8. Lasix, low dose 10. Will US left chest ?eff???but cxr looks stable?? 11. LFT FINE?on VPA; NH# good x 4 checks noted 12, LTAC preferably Tuesday off propofol, icu there ? Critical Care Documentation: Discussed with Staff Yes Time spent providing critical care services: 20 minutes excluding billable procedures. SIGNATURE: Ten Gonsales MD PATIENT NAME: Jeffrey Cullen DATE: March 05, 2018 TIME: 2:49 PM PROGRESS Observed: 03/05/2018 Status: COMPLETED Source: [place] 11:53 AM [facility] REPOSITORY HNO ID: [id number] Author: Beata Marin Service: Thoracic Surgery Author Type: Physician Type: Progress Notes Filed: 03/05/2018 11:54 AM Note Text: Patient seen and clin course d/w bedside nurse. Still afib w some lower BP and lower HR on inc'd Cardizem. P-will dec cardizem and chk K+ PROGRESS Observed: 03/05/2018 Status: COMPLETED Source: [place] 11:46 AM [facility] REPOSITORY HNO ID: [id number] Author: Misti Stein (Pa) Service: Cardiac Surgery Author Type: Physician Tool Inspector Type: Progress Notes Filed: 03/05/2018 11:57 AM Note Text: CARDIOTHORACIC SURGERY POSTOP PROGRESS NOTE SERVICE DATE: 03/05/2018 SERVICE TIME: 11:46 AM Subjective S/P SURGERY: Procedure(s) (LRB): TRACHEOSTOMY ADULT (N/A) DATE OF SURGERY: 02/22/2018 POSTOP DAY #25 LOS: 26 INTERVAL EVENTS / PERTINENT ROS: Patient in bed, sedated, on vent, still unable to wean sedation Objective Admission Weight: 104.3 kg (229 lb 15 oz) BP 92/62 Pulse 100 Temp 36.6 ?C (97.9 ?F) (Core) Resp 16 Ht 180.3 cm (5' 10.98) Wt 98.8 kg (217 lb 13 oz) SpO2 90% BMI 30.39 kg/m2 Body surface area is 2.22 meters squared. Min/Max/Average Temperature AND Blood Pressure: Temp (24hrs), Av.1 ?C (98.7 ?F), Min:36.6 ?C (97.9 ?F), Max:37.6 ?C (99.7 ?F) Systolic (24hrs), Av , Min:70 , Max:160 Diastolic (24hrs), Av, Min:45, Max:107 Intake/Output Summary (Last 24 hours) at 03/05/18 1146 Last data filed at 03/05/18 1000 Gross per 24 hour Intake 3248 ml Output 1172 ml Net 2076 ml TELEMETRY: Paroxysmal a-fib PHYSICAL EXAM: General Appearance: well developed and sedated Skin: No rash on chest, arms or legs. Warm, dry. Midsternal AND SVG incision dry AND intact, without redness, drainage or edema. Lungs: decreased breath sounds Heart: irregular rhythm Abdomen: soft, round, bowel sounds present and distended Neurologic/Psychiatric: sedated, does not follow commands Extremities: no edema Lines, Drains, and Airways Line Central Line Double Lumen 02/17/18 1310 Peripherally Inserted (PICC) Right Arm 5.0 Vietnamese 15 days Drain Indwelling Urinary Catheter 02/09/18 0838 Temperature Monitoring 16 Fr 24 days GI Feed/Drain 02/22/18 1336 Gastrostomy-Jejunostomy (G-J) Abdomen 18 Fr 10 days Airway Airway Tracheostomy 02/22/18 11 days DATA: Diagnostic tests reviewed for today's visit: ordered for tomorrow Recent Labs 03/05/18 0915 03/04/18 0429 03/03/18 0430 RBC -- -- 3.49* WBC -- -- 8.16 HB -- -- 11.1* HCT -- -- 34.4* PLT -- -- 294 NA -- 142 140 K 3.7 3.9 4.0 CHLOR -- 105 106 CO2 -- 30 31 BUN -- 30* 25* CREAT -- 1.00 0.85 GLUC -- 117* 99 CA -- 9.1 8.5 MG -- -- 2.1 TPROT -- 7.2 6.6 TBILI -- 0.5 0.4 ALKPHOS -- 85 95 ALT -- 49 53 AST -- 31 39* ANION -- 11 7* Assessment/Plan Acute NSTEMI s/p CABG x 3 -POD#25 -c/w ASA, statin, BB ?? Acute hypoxic AND hypercapneic respiratory failure 2/2 severe COPD -s/p tracheostomy -Vent wean per ICU team ?? Paroxysmal Afib/Aflutter -c/w Metoprolol AND Diltiazem -c/w Eliquis for OAC ?? Acute encephalopathy -Neuro following. -Medications adjusted per neuro and ICU teams -Valproic acid and zyprexa now. Propofol for sedation and wean that as able. -c/w monitor ammonia levels, currently trending down ?? Volume Overload with LLL effusion -c/w?lasix 40mg PO BID -Monitor daily wts. -High for strict IANDO ?? Constipation -Resolved -c/w miralax and senokot-s. ?? Moderate Protein-Calorie Malnutrition -s/p G-J tube -c/w tube feeds. ?? DVT ppx -SCDs AND Eliquis ? Dispo- to be discharged to [facility] once tolerating new sedation regimen. Tests/Labs Ordered: 1. CBC 2. CMP 3. Magnesium SIGNATURE: Misti Stein PA-C PATIENT NAME: Jeffrey Cullen DATE: March 05, 2018 TIME: 11:46 AM PAGER/CONTACT #:[phone] ETX [id number] POTASSIUM BLOOD Collected: 03/05/2018 Status: F Source: [facility] 9:15 AM HEALTH SYSTEM REPOSITORY TYPE CODE TESTS RESULT OUT OF REFERENCE UNITS RANGE LAB K(LOINC) 3.5-5.1 mEq/L Potassium Blood 3.7 Performed By: #### K #### [place] [address] VITAMIN B1, PLASMA Collected: 03/04/2018 Status: F Source: [facility] 2:00 PM HEALTH SYSTEM REPOSITORY TYPE CODE TESTS RESULT OUT OF REFERENCE UNITS RANGE LAB VITBX(LOINC ) Vitamin B1, SEE BELOW Plasma Result Comment: Vitamin B1, plasma 880 H Reference range: 4 to 15 Unit: nmol/L (NOTE) INTERPRETIVE DATA: Vitamin B1, Plasma Thiamine (vitamin B1) is reported. However, thiamine diphosphate (TDP), the biologically active form of thiamine, is not found in measurable concentrations in plasma, and is best determined in whole blood specimens. Plasma thiamine concentration reflects recent intake rather than body stores. Test developed and characteristics determined by [employer]. See Compliance Statement B: [employer]/CS Performed by [facility], [address] [facility] [place] [address] [email or web address], [place] Infante MD, Lab. Director Performing Laboratory: Performed By: #### VITBX #### [facility] [address] [address] CHEST 1 VIEW Observed: 03/04/2018 Status: F Source: [facility] 1:35 PM HEALTH SYSTEM REPOSITORY Performed at [facility] APPROVED BY: Efren Benson MD EXAM TITLE: CHEST 1 VIEW DATE: 03/04/2018 13:26 INDICATION: Tracheostomy tube. Dyspnea. COMPARISON: 03/03/2018 at 05 49. Portable frontal view of the chest shows tracheostomy tube with tip at the level of T3. Right-sided PICC line with tip most likely at or just beyond the caval atrial junction. Heart size is mildly enlarged but stable. Lungs are grossly clear. IMPRESSION: Stable appearance of the chest. PROGRESS Observed: 03/04/2018 Status: COMPLETED Source: [place] 12:13 PM [facility] REPOSITORY HNO ID: [id number] Author: Beata Marin Service: Thoracic Surgery Author Type: Physician Type: Progress Notes Filed: 03/04/2018 12:15 PM Note Text: CT surg POD # 23 S-on vent w trach and G-J tube O-no x-rays today, labs noted A-stable/same P-as ordered PROGRESS Observed: 03/04/2018 Status: COMPLETED Source: [place] 9:27 AM [facility] REPOSITORY HNO ID: [id number] Author: Krystal Valdez) Paul Service: Critical Care Author Type: Nurse Specialist Type: Progress Notes Filed: 03/04/2018 9:52 AM Note Text: MICU - PROGRESS NOTE SERVICE DATE: 03/04/2018 SERVICE TIME: 9:27 AM Admission Date: 02/07/2018 AGE: [age] year old LOS: 25 days Subjective REASON FOR ICU ADMISSION: Respiratory Failure Objective PROBLEMS: ACTIVE PROBLEM LIST Inguinal Hernia Without Mention of Obstruction Or Gangrene, Unilateral Or Unspecified, (Not Specified As Recurrent) Nstemi (Non-St Elevated Myocardial Infarction) (Hcc) Nsvt (Nonsustained Ventricular Tachycardia) (Hcc) Nicotine use disorder, F17.2 Malnutrition of Moderate Degree (Hcc) No past medical history on file. PAST SURGICAL HISTORY Procedure Laterality Date - ORTHOPEDICS SURGERY HX - REPAIR ING HERNIA,5+Y/O,REDUCIBL 1990 Hernia repair, inguinal,left Social History Marital status: Single Spouse name: Years of education: Number of children: Social History Main Topics Smoking status: Current Every Day Smoker Packs/day: 2.00 Years: 25.00 Types: Cigarettes Alcohol use: No Drug use: No Sexual activity: Yes Partners with: Female Other Topics Concern Service No Blood Transfusions No Caffeine Concern No Occupational Exposure No Hobby Hazards No Sleep Concern No Stress Concern No Weight Concern No Special Diet No Back Care No Exercise No Bike Helmet No Seat Belt No Self-Exams No VITAL SIGNS (last 24hrs min/max): Temp Av.9 ?C (100.2 ?F) Min: 37.1 ?C (98.8 ?F) Max: 38.5 ?C (101.3 ?F) Pulse Av.5 Min: 90 Max: 149 No Data Recorded Cuff BP Min: 77/48 Max: 160/87 Pain Score: 7/10 Vital signs reviewed. BP 148/95 Pulse 93 Temp (Src) 98.8 (Temporal Artery) Resp 34 Ht 5' 10.984 (1.80m) Wt 218 lb 0.6 oz (98.9kg) SpO2 92% BMI 30.42 kg/(m2). Temp (24hrs), Av.9 ?C (100.2 ?F), Min:37.1 ?C (98.8 ?F), Max:38.5 ?C (101.3 ?F) NET FLUID BALANCE Intake/Output Summary (Last 24 hours) at 03/04/18 0927 Last data filed at 03/04/18 0555 Gross per 24 hour Intake 2109 ml Output 1807 ml Net 302 ml MEDICATIONS Current Facility-Administered Medications: fentaNYL 25 mcg/hr 1 Patch (DURAGESIC) 1 Patch TRANSDERMAL q 72 HR pantoprazole 40 mg injection (PROTONIX) 40 mg INTRAVENOUS DAILY (6 AM) valproate sodium 500 mg in NaCl 0.9% 100 mL (DEPACON) 500 mg INTRAVENOUS q 8 H metoclopramide HCl 10 mg injection (REGLAN) 10 mg INTRAVENOUS q 6 H PRN OLANZapine 7.5 mg tab(s) (ZyPREXA) 7.5 mg ORAL BID iron polysaccharide complex capsule 150 mg (FERREX-150) 150 mg ORAL BID propofol infusion (DIPRIVAN) 10-30 mcg/kg/min INTRAVENOUS CONTINUOUS furosemide 40 mg tab(s) (LASIX) 40 mg ORAL BID 9a/5p fentaNYL 50 mcg/mL 50 mcg injection (SUBLIMAZE) 50 mcg INTRAVENOUS q 2 H PRN diltiazem 30 mg tab(s) (CARDIZEM) 30 mg NASOGASTRIC q 6 H ipratropium-albuterol 3 mL nebulizer solution (DUONEB) 3 mL INHALATION QID aspirin 81 mg chewable tab(s) 81 mg ORAL DAILY apixaban 5 mg tab(s) (ELIQUIS) 5 mg ORAL BID metoprolol tartrate (short acting) 100 mg tab(s) (LOPRESSOR) 100 mg ORAL q 8 H 0.9% NaCl 20 mL 20 mL INTRAVENOUS PRN 0.9% NaCl 10 mL 10 mL INTRAVENOUS q 12 H 0.9% NaCl 20 mL 20 mL INTRAVENOUS PRN bisacodyl 10 mg suppository (DULCOLAX) 10 mg RECTAL DAILY PRN polyethylene glycol 3350 17 g packet (MIRALAX, GLYCOLAX) 17 g ORAL DAILY senna-docusate 8.6-50 mg 1 tablet (SENNA-S) 1 tablet ORAL BID pill splitter (patient-specific) 1 Each Miscell. (Med.Supl.;Non- Drugs) PRN Chlorhexidine Gluconate 0.12 % 15 mL (PERIDEX) 15 mL ORAL q 12 H budesonide 0.5 mg/2 mL 1 mg (PULMICORT) 1 mg INHALATION BID acetaminophen 650 mg tab(s) (TYLENOL) 650 mg ORAL q 6 H PRN potassium chloride iv piggyback 20 mEq in sterile water 100 mL 20 mEq INTRAVENOUS PRN magnesium sulfate in water 2 g in sterile water 50 ml 2 g INTRAVENOUS PRN(NO DISPENSE) albuterol 2.5 mg /3 mL (0.083 %) 2.5 mg (PROVENTIL) 2.5 mg INHALATION q 2 H PRN calcium chloride 1 g in D5W 100 mL 1 g INTRAVENOUS PRN(NO DISPENSE) oxyCODONE-acetaminophen 5-325 mg 1-2 tablet (PERCOCET) 1-2 tablet ORAL q 4 H PRN ondansetron (PF) 4 mg injection (ZOFRAN) 4 mg INTRAVENOUS q 6 H PRN atorvastatin 40 mg tab(s) (LIPITOR) 40 mg ORAL AT BEDTIME Lines, Drains, and Airways Line Central Line Double Lumen 02/17/18 1310 Peripherally Inserted (PICC) Right Arm 5.0 Vietnamese 14 days Drain Indwelling Urinary Catheter 02/09/18 0838 Temperature Monitoring 16 Fr 23 days GI Feed/Drain 02/22/18 1336 Gastrostomy-Jejunostomy (G-J) Abdomen 18 Fr 9 days Airway Airway Tracheostomy 02/22/18 10 days PHYSICAL EXAM PERFORMED: Cardiovascular: Irregular rhythm Respiratory: Reduced breath sounds bilat %FIO2 Min: 30 Max: 30 Abdomen: Soft Extremities: Edema- Yes Generalized edema Neurologic: agitated Does not follow requests thrashing Respiratory/Nursing Documentation: O2 Therapy: Ventilator (03/04/18906) Invasive Ventilator Mode: Pressure Regulated Volume Control (03/04/18906) Set Ventilator Respiratory Rate (BPM): 15 (03/04/18906) Total Respiratory Rate (BPM): 22 (03/04/18 035) Tidal Volume Set (mL): 550 (03/04/18906) Exhaled Tidal Volume (mL): 564 (03/04/18906) Minute Volume (L): 11.9 (03/04/18906) Peak Inspiratory Pressure (cm H2O): 15 (03/04/18906) PEEP/CPAP (cm H2O): 5 (03/04/18906) HEMODYNAMIC DATA: Reviewed NUTRITION: Enteral Feeds: Yes Tube Feeds -Impact DATA: Diagnostic tests reviewed for today's visit, films/specimens were personally reviewed by me: Most recent labs and imaging results. LABS: Recent Labs 03/04/18 0429 03/03/18 0430 WBC -- 8.16 RBC -- 3.49* HB -- 11.1* HCT -- 34.4* MCV -- 98.6* PLT -- 294 GLUC 117* 99 BUN 30* 25* CREAT 1.00 0.85 NA 142 140 K 3.9 4.0 CHLOR 105 106 CO2 30 31 TPROT 7.2 6.6 ALB 2.4* 2.3* CA 9.1 8.5 ALKPHOS 85 95 TBILI 0.5 0.4 AST 31 39* ALT 49 53 MG -- 2.1 Critical Care Documentation: The patient has the following organ/system impairment(s): Acute hypoxic respiratory failure ENCEPHALOPATHY ?Non-convolusive status ?no seizures noted on EEG; last reading 03/02 ?Ammonia elevation unlikely to be responsible for his encephalopathy- 17 today improved from 33 yesterday ? liver panel without acute findings ?Valproic acid to 500 mg q8h Unclear etiology Considering phenobarb Remains agitated-on propofol at 25 mcg Adding low dose fentanyl patch ?? Acute NSTEMI s/p CABG x 3 -POD#23 -c/w ASA, statin, BB Acute hypoxic respiratory failure SP trach Pulmonary toliet Remains volume overloaded-LLL effusion-lasix at 40mg bid Paroxysmal atrial fib Continue Lopressor 100mg q 12h and cardizem 30mg q 8h Continue eliquis Pulmonary toliet GI and DVT prophylaxsis Malnutition This patient has a high probability of sudden, clinically significant deterioration, which requires the highest level of physician preparedness to intervene urgently. I managed/supervised life or organ supporting interventions that required frequent physician assessment. I devoted my full attention to the direct care of this patient for the amount of time indicated below. Time I spent with family or surrogate(s) is included only if the patient was incapable of providing the necessary information or participating in medical decision making. Time devoted to teaching is not included. Discussed with staff/patient/family Time spent providing critical care services: 40 minutes excluding procedures. SIGNATURE: Krystal Miller APRN.BEHAVIORAL HEALTH CONSULTANT PATIENT NAME: Jeffrey Cullen DATE: March 04, 2018 TIME: 9:27 AM PROGRESS Observed: 03/04/2018 Status: COMPLETED Source: [place] 8:59 AM CLINIC OTHER CAMPUS REPOSITORY HNO ID: [id number] Author: Carlos Hayward Service: Neurology Author Type: Physician Type: Progress Notes Filed: 03/04/2018 3:28 PM Note Text: NEUROLOGY CONSULT PROGRESS NOTE SERVICE DATE: 03/04/2018 SERVICE TIME: 815AM Current Attending Provider: Beata Marin Subjective Interval History: Today, Jeffrey is not changed. Pt went into afib RVR, per nursing notes, last night. Sedation holiday also attempted yesterday evening and patients' resp > 40 and because anxious and was then placed back on propofol and was given fentanyl and returned to baseline. Objective Physical Examination: Neurological: ? Mental Status: Pt is sedated, does not follow commands off of sedation Cranial Nerves: CNII: not able to assess CNIII, IV, : Pupils equal, round and reactive to light CN V: not able to assess CN VII: No noted facial droop CN VIII: Could not be assessed. CN IX: Gag Reflex Not Examined CN X: Not assessed CN XI: Could not be assessed. ? CN XII: Could not be assessed. Motor Exam: ? Muscle Tone: Normal ? Strength today in the bilateral extremities is not changed ? Reflexes: Right Left Bicep 2/4 2/4 Tricep Not tested Not tested BrRad 2/4 2/4 Knee 2/4 2/4 Ankle Not tested Not tested ? Sensation: Intact to noxious stimuli and withdrawals on all 4 extremities. ? Coordination: not able to be assessed. ? Gait: Patient is unable to ambulate. New Labs: WBC (thou/cmm) Date Value 03/03/2018 8.16 03/01/2018 5.85 02/27/2018 8.62 RBC (mil/cmm) Date Value 03/03/2018 3.49 03/01/2018 2.94 02/27/2018 3.26 Platelet Count (thou/cmm) Date Value 03/03/2018 294 03/01/2018 273 02/27/2018 277 BUN (mg/dL) Date Value 03/04/2018 30 03/03/2018 25 03/01/2018 17 Creatinine (mg/dL) Date Value 03/04/2018 1.00 03/03/2018 0.85 03/01/2018 0.63 CBC, Coags, BMP, Mg, Phos Recent Labs 03/04/18 04203/03/18 0430 NA 142 140 K 3.9 4.0 CHLOR 105 106 CO2 30 31 GLUC 117* 99 CA 9.1 8.5 MG -- 2.1 Liver Function, Amylase, AND Lipase Recent Labs 03/04/18 04203/03/18 0430 03/01/18 1607 TPROT 7.2 6.6 6.3* ALB 2.4* 2.3* 2.2* ALT 49 53 32 AST 31 39* 26 ALKPHOS 85 95 91 TBILI 0.5 0.4 0.4 DATA: Diagnostic tests reviewed for today's visit: Most recent labs and imaging results. Amm- 17 VPA level- 41 Impression/Recommendations Encephalopathy ?no seizures noted on EEG; last reading 03/02 ?Ammonia elevation unlikely to be responsible for his encephalopathy- 17 today improved from 33 yesterday ? liver panel without acute findings ? Valproic acid to 500 mg q8h Unclear etiology Will check thiamine lvl and add on thiamine ? SIGNATURE: SANA RUSSELL PA-C PATIENT NAME: Jeffrey Cullen DATE: March 04, 2018 TIME: 8:59 AM PAGER/CONTACT #: [phone] THE NEURO ICU MANAGEMENT OF THIS PATIENT WAS DISCUSSED WITH THE CICU TEAM I have reviewed the progress note obtained and documented by the nurse practitioner, Sana Altamirano. I have personally seen and examined the patient and discussed their management with the NPP. I reviewed the NPP note and agree with the documented findings and plan of care. I have repeated the examination and confirm the findings except as documented. PATIENT PROBLEMS I REVIEWED, REVISED AND/OR INITIATED: The care of this patient required my full attention and direct personal management of: Active Problems: NSTEMI (non-ST elevated myocardial infarction) (HCC) NSVT (nonsustained ventricular tachycardia) (HCC) Nicotine use disorder, F17.2 Malnutrition of moderate degree (HCC) Encephalopathy Resolved Problems: * No resolved hospital problems. * ==== STAFF COORDINATION OF CRITICAL CARE [facility] Staff Physician note of personal involvement in Care The patient is critically ill because of imminent risk of severe encephalopathy and continues to require intensive support and observation. This patient has a high probability of sudden, clinically significant deterioration, which requires the highest level of physician preparedness to intervene urgently. I managed/supervized life or organ supporting interventions that required frequent physician assessment. I devoted my full attention to the direct care of this patient for the amount of time indicated below. Time I spent with family or surrogate(s) is included only if the patient was incapable of providing the necessary information or participating in medical decision making. Time devoted to teaching or to any procedures I billed separately is not included. CRITICAL CARE: I personally spent 32 minutes of critical care time involved in the care of this patient. ==== Encephalopathy (TSH, B12 okay; MRI negative for acute process; EEG shows CSG) PLAN, IMPRESSION AND ACTION(S) TAKEN Continue zyprexa Continue VPA (level 41; ammonia 17) for his behavior Start thiamine 100mg daily; check B1 level Please see the documented [id number] plan in the updated problem list. Carlos Hayward DO Staff, Neurointensive Care [facility] [place] Date of Service: 03/04/2018 Time of Service: 3:16 PM This is an electronically created document. If printed, please do not remove from the chart or modify printed copy. PROGRESS Observed: 03/04/2018 Status: COMPLETED Source: [place] 8:48 AM CLINIC OTHER CAMPUS REPOSITORY O ID: [id number] Author: Ten Gonsales Service: Pulmonary Disease Author Type: Physician Type: Progress Notes Filed: 03/04/2018 9:01 AM Note Text: MICU - PROGRESS NOTE SERVICE DATE: 03/04/2018 SERVICE TIME: 8:48 AM Admission Date: 02/07/2018 AGE: [age] year old LOS: 25 days REASON FOR ICU ADMISSION: Respiratory Failure and S/P Surgery Objective Localized to voice UE weak . Kicks legs Trach stitched PEG/J ok Tf on goal No past medical history on file. PAST SURGICAL HISTORY Procedure Laterality Date - ORTHOPEDICS SURGERY HX - REPAIR ING HERNIA,5+Y/O,REDUCIBL 1990 Hernia repair, inguinal,left Social History Marital status: Single Spouse name: Years of education: Number of children: Social History Main Topics Smoking status: Current Every Day Smoker Packs/day: 2.00 Years: 25.00 Types: Cigarettes Alcohol use: No Drug use: No Sexual activity: Yes Partners with: Female Other Topics Concern Service No Blood Transfusions No Caffeine Concern No Occupational Exposure No Hobby Hazards No Sleep Concern No Stress Concern No Weight Concern No Special Diet No Back Care No Exercise No Bike Helmet No Seat Belt No Self-Exams No VITAL SIGNS (last 24hrs min/max): Temp Av.9 ?C (100.2 ?F) Min: 37.1 ?C (98.8 ?F) Max: 38.5 ?C (101.3 ?F) Pulse Av.4 Min: 90 Max: 149 No Data Recorded Cuff BP Min: 77/48 Max: 160/87 Pain Score: 7/10 Vital signs reviewed. BP 148/95 Pulse 94 Temp (Src) 98.8 (Temporal Artery) Resp 22 Ht 5' 10.984 (1.80m) Wt 218 lb 0.6 oz (98.9kg) SpO2 93% BMI 30.42 kg/(m2). Temp (24hrs), Av.9 ?C (100.2 ?F), Min:37.1 ?C (98.8 ?F), Max:38.5 ?C (101.3 ?F) NET FLUID BALANCE Intake/Output Summary (Last 24 hours) at 03/04/18 0848 Last data filed at 03/04/18 0555 Gross per 24 hour Intake 2109 ml Output 1884 ml Net 225 ml MEDICATIONS Current Facility-Administered Medications: pantoprazole 40 mg injection (PROTONIX) 40 mg INTRAVENOUS DAILY (6 AM) valproate sodium 500 mg in NaCl 0.9% 100 mL (DEPACON) 500 mg INTRAVENOUS q 8 H metoclopramide HCl 10 mg injection (REGLAN) 10 mg INTRAVENOUS q 6 H PRN OLANZapine 7.5 mg tab(s) (ZyPREXA) 7.5 mg ORAL BID iron polysaccharide complex capsule 150 mg (FERREX-150) 150 mg ORAL BID propofol infusion (DIPRIVAN) 10-30 mcg/kg/min INTRAVENOUS CONTINUOUS furosemide 40 mg tab(s) (LASIX) 40 mg ORAL BID 9a/5p fentaNYL 50 mcg/mL 50 mcg injection (SUBLIMAZE) 50 mcg INTRAVENOUS q 2 H PRN diltiazem 30 mg tab(s) (CARDIZEM) 30 mg NASOGASTRIC q 6 H ipratropium-albuterol 3 mL nebulizer solution (DUONEB) 3 mL INHALATION QID aspirin 81 mg chewable tab(s) 81 mg ORAL DAILY apixaban 5 mg tab(s) (ELIQUIS) 5 mg ORAL BID metoprolol tartrate (short acting) 100 mg tab(s) (LOPRESSOR) 100 mg ORAL q 8 H 0.9% NaCl 20 mL 20 mL INTRAVENOUS PRN 0.9% NaCl 10 mL 10 mL INTRAVENOUS q 12 H 0.9% NaCl 20 mL 20 mL INTRAVENOUS PRN bisacodyl 10 mg suppository (DULCOLAX) 10 mg RECTAL DAILY PRN polyethylene glycol 3350 17 g packet (MIRALAX, GLYCOLAX) 17 g ORAL DAILY senna-docusate 8.6-50 mg 1 tablet (SENNA-S) 1 tablet ORAL BID pill splitter (patient-specific) 1 Each Miscell. (Med.Supl.;Non- Drugs) PRN Chlorhexidine Gluconate 0.12 % 15 mL (PERIDEX) 15 mL ORAL q 12 H budesonide 0.5 mg/2 mL 1 mg (PULMICORT) 1 mg INHALATION BID acetaminophen 650 mg tab(s) (TYLENOL) 650 mg ORAL q 6 H PRN potassium chloride iv piggyback 20 mEq in sterile water 100 mL 20 mEq INTRAVENOUS PRN magnesium sulfate in water 2 g in sterile water 50 ml 2 g INTRAVENOUS PRN(NO DISPENSE) albuterol 2.5 mg /3 mL (0.083 %) 2.5 mg (PROVENTIL) 2.5 mg INHALATION q 2 H PRN calcium chloride 1 g in D5W 100 mL 1 g INTRAVENOUS PRN(NO DISPENSE) oxyCODONE-acetaminophen 5-325 mg 1-2 tablet (PERCOCET) 1-2 tablet ORAL q 4 H PRN ondansetron (PF) 4 mg injection (ZOFRAN) 4 mg INTRAVENOUS q 6 H PRN atorvastatin 40 mg tab(s) (LIPITOR) 40 mg ORAL AT BEDTIME Lines, Drains, and Airways Line Central Line Double Lumen 02/17/18 1310 Peripherally Inserted (PICC) Right Arm 5.0 Vietnamese 14 days Drain Indwelling Urinary Catheter 02/09/18 0838 Temperature Monitoring 16 Fr 23 days GI Feed/Drain 02/22/18 1336 Gastrostomy-Jejunostomy (G-J) Abdomen 18 Fr 9 days Airway Airway Tracheostomy 02/22/18 10 days Respiratory/Nursing Documentation: O2 Therapy: Ventilator (03/04/18 0700) Invasive Ventilator Mode: Pressure Regulated Volume Control (03/04/18350) Set Ventilator Respiratory Rate (BPM): 15 (03/04/18350) Total Respiratory Rate (BPM): 22 (03/04/18350) Tidal Volume Set (mL): 550 (03/04/18350) Exhaled Tidal Volume (mL): 549 (03/04/18350) Minute Volume (L): 13 (03/04/18350) Peak Inspiratory Pressure (cm H2O): 20 (03/04/18350) PEEP/CPAP (cm H2O): 5 (03/04/18350) HEMODYNAMIC DATA: reviewed NUTRITION: Enteral Feeds: 56 VENT: prvc 550/5 WEANS: psv intermittent SEDATION: prop 35 mcg DRIPS: PRESSORS: none CULTURE update: CXR FINDINGS: OTHER IMAGING: DATA: Diagnostic tests reviewed for today's visit: Most recent labs and imaging results REVIEWED. LABS: Recent Labs 03/04/18 0429 03/03/18 0430 WBC -- 8.16 RBC -- 3.49* HB -- 11.1* HCT -- 34.4* MCV -- 98.6* PLT -- 294 GLUC 117* 99 BUN 30* 25* CREAT 1.00 0.85 NA 142 140 K 3.9 4.0 CHLOR 105 106 CO2 30 31 TPROT 7.2 6.6 ALB 2.4* 2.3* CA 9.1 8.5 ALKPHOS 85 95 TBILI 0.5 0.4 AST 31 39* ALT 49 53 MG -- 2.1 ABG: Invalid input(s): [id number] Assessment/Plan PROBLEMS: Patient Active Hospital Problem List: NSTEMI (non-ST elevated myocardial infarction) ([facility]) (02/07/2018) NSVT (nonsustained ventricular tachycardia) ([facility]) (02/08/2018) Nicotine use disorder, F17.2 (02/09/2018) Malnutrition of moderate degree ([facility]) (02/20/2018) acute (now chronic 3 weeks) respiratory failure with trach, prolonged vent; 30%/5/psv 12 Met encephalopathy, severe motor restlessness, cognitive impairments; LFT ok,tsh, NH3, lytes ok; no better off reglan/bzd; some better with voice localization. ? afib with rvr better; NOAC, bblocker; NSR cabg day 24 Copd FEV1 69% preop HCAP reported 02/11 recent EColi/Kleb, normal wbc; sputum Pending Mild anemia after prolonged icu course, reduced daily labs as stable ?LLL atel/?effusion? Hypoalbuminemia Recurrent emesis despite JT feeds, off reglan for 48hrs now prn use, tolerating postpyloric ? CRITICAL CARE PLAN: 1. DC seroquel as ineffective; off?dexmed and no BZD for now; small fentanyl as wild, thrashing, ?pain; NEW inc ZYPREXA AND iv DEPAKOTE, then wean off propofol and hope emerges better; =discussed with neuro Dr Camacho yesterday. 2. Noted ?MRI ?good pictures neg overall; has LUE weakness,?peripheral neuropathy, ?brachial plexopathy 3. Post pyloric TF; restarted reglan prn 4. Tried psv 8-12/5 weans, did ok , until very agitated/tachyp maya 5. cxr ok 6. vbg good pC02 51 last check 7. Neuro ?reevaluated 8. Lasix, low dose 10. Will US left chest ?eff???but cxr looks stable?? 11. LFT FINE?on VPA; NH# good x 4 checks noted 12, LTAC preferably Tuesday off propofol, icu there ? ? Critical Care Documentation: The patient has the following organ/system impairment(s): Arrhythmias, Complex life-threatening medical problem(s) and Encephalopathy This patient has a high probability of sudden, clinically significant deterioration, which requires the highest level of physician preparedness to intervene urgently. I managed/supervised life or organ supporting interventions that required frequent physician assessment. I devoted my full attention to the direct care of this patient for the amount of time indicated below. Time I spent with family or surrogate(s) is included only if the patient was incapable of providing the necessary information or participating in medical decision making. Time devoted to teaching is not included. Discussed with Staff Yes Time spent providing critical care services: 20 minutes excluding billable procedures. SIGNATURE: Ten Gonsales MD PATIENT NAME: Jeffrey Cullen DATE: March 04, 2018 TIME: 8:48 AM AMMONIA Collected: 03/04/2018 Status: F Source: [facility] 4:29 AM HEALTH SYSTEM REPOSITORY TYPE CODE TESTS RESULT OUT OF REFERENCE UNITS RANGE LAB DAVID(LOINC 11-32 umol/L ) Ammonia 17 Performed By: #### DAVID #### [place] [id number] COMPREHENSIVE PANEL Collected: 03/04/2018 Status: F Source: [facility] 4:29 AM HEALTH SYSTEM REPOSITORY TYPE CODE TESTS RESULT OUT OF REFERENCE UNITS RANGE LAB NA(LOINC) 136-145 mEq/L Sodium Blood 142 LAB K(LOINC) 3.5-5.1 mEq/L Potassium Blood 3.9 LAB CL(LOINC) 98-107 mEq/L Chloride Blood 105 LAB CO2(LOINC) 21-32 mEq/L CO2 Blood 30 LAB GLU(LOINC) 70-99 mg/dL Glucose High Blood 117 LAB BUN(LOINC) 7-18 mg/dL BUN Blood High 30 LAB CREA(LOINC 0.67-1.17 mg/dL ) Creatinine Blood 1.00 LAB CA(LOINC) 8.5-10.1 mg/dL Calcium Blood 9.1 LAB ALB(LOINC) 3.4-5.0 g/dL Low Albumin Blood 2.4 LAB TP(LOINC) 6.4-8.2 g/dL Total Protein 7.2 LAB AST(LOINC) 9-37 U/L AST-SGOT Blood 31 LAB ALT(LOINC) 12-78 U/L ALT-SGPT Blood 49 LAB ALKP(LOINC 46-116 U/L ) Alk Phosphatase 85 LAB BILIT(LOIN 0.2-1.0 mg/dL C) Total Bilirubin 0.5 LAB ANGAP(LOIN 8-16 C) Anion Gap 11 Performed By: #### P14 #### [facility] [address] [place] [address] VALPROIC ACID,RAND. Collected: 03/04/2018 Status: F Source: [facility] 4:29 AM HEALTH SYSTEM REPOSITORY TYPE CODE TESTS RESULT OUT OF REFERENCE UNITS RANGE LAB VALPR(LOINC 50-100 mg/L ) Low Valproic 41 Acid,[place]. Performed By: #### VALPR #### [facility] [address] [place] [address] MDRD GFR Collected: 03/04/2018 Status: F Source: [facility] 4:29 AM HEALTH SYSTEM REPOSITORY TYPE CODE TESTS RESULT OUT OF RANGE REFERENCE UNITS LAB GFRFN(LOINC >60mL/min/1.73m ) 2 eGFR >60 Result Comment: If the patient is , multiply the result by 1.210. Performed By: #### GFR #### [facility] [address] [place] [address] PROGRESS Observed: 03/03/2018 Status: COMPLETED Source: [place] 11:19 PM [facility] REPOSITORY HNO ID: [id number] Author: Paulette MoodyRn) RAINA Garibay Service: Critical Care Author Type: Registered Nurse Type: Progress Notes Filed: 03/03/2018 11:20 PM Note Text: Pt going in and out of A-fib RVR. Dr. Bae notified. PROGRESS Observed: 03/03/2018 Status: COMPLETED Source: [place] 8:00 PM [facility] REPOSITORY HNO ID: [id number] Author: Paulette Johnson) RAINA Garibay Service: Critical Care Author Type: Registered Nurse Type: Progress Notes Filed: 03/04/2018 3:41 AM Note Text: Sedation vacation attempted. RR increased to >40 respirations/min, HR a-fib RVR 110-140, and moderate to high anxiety observed. Pt moves all ext, but does not follow commands. After resuming propofol pt RR remained >40. 50mcg of IV fent administered. Respiratory status returned to baseline. Pt became transient hypotensive after IV fent. Propofol placed on hold and BP returned to normal after about 5 minutes. PROGRESS Observed: 03/03/2018 Status: COMPLETED Source: [place] 1:55 PM [facility] REPOSITORY HNO ID: [id number] Author: Krystal Valdez) Paul Service: Critical Care Author Type: Nurse Specialist Type: Progress Notes Filed: 03/08/2018 4:18 PM Note Text: MICU - PROGRESS NOTE SERVICE DATE: 03/03/2018 SERVICE TIME: 1:56 PM Admission Date: 02/07/2018 AGE: [age] year old LOS: 24 days Subjective REASON FOR ICU ADMISSION: SP CABG POD 22 Acute hypoxic respiratory failure Objective PROBLEMS: ACTIVE PROBLEM LIST Inguinal Hernia Without Mention of Obstruction Or Gangrene, Unilateral Or Unspecified, (Not Specified As Recurrent) Nstemi (Non-St Elevated Myocardial Infarction) (Hcc) Nsvt (Nonsustained Ventricular Tachycardia) (Hcc) Nicotine use disorder, F17.2 Malnutrition of Moderate Degree (Hcc) No past medical history on file. PAST SURGICAL HISTORY Procedure Laterality Date - ORTHOPEDICS SURGERY HX - REPAIR ING HERNIA,5+Y/O,REDUCIBL 1990 Hernia repair, inguinal,left Social History Marital status: Single Spouse name: Years of education: Number of children: Social History Main Topics Smoking status: Current Every Day Smoker Packs/day: 2.00 Years: 25.00 Types: Cigarettes Alcohol use: No Drug use: No Sexual activity: Yes Partners with: Female Other Topics Concern Service No Blood Transfusions No Caffeine Concern No Occupational Exposure No Hobby Hazards No Sleep Concern No Stress Concern No Weight Concern No Special Diet No Back Care No Exercise No Bike Helmet No Seat Belt No Self-Exams No VITAL SIGNS (last 24hrs min/max): Temp Av.3 ?C (99.2 ?F) Min: 36.3 ?C (97.3 ?F) Max: 38.5 ?C (101.3 ?F) Pulse Av.2 Min: 68 Max: 108 No Data Recorded Cuff BP Min: 70/48 Max: 160/87 Pain Score: 6/10 Vital signs reviewed. BP 135/61 Pulse 102 Temp (Src) 101.3 (Core) Resp 23 Ht 5' 10.984 (1.80m) Wt 230 lb 2.6 oz (104.4kg) SpO2 95% BMI 32.12 kg/(m2). Temp (24hrs), Av.3 ?C (99.2 ?F), Min:36.3 ?C (97.3 ?F), Max:38.5 ?C (101.3 ?F) NET FLUID BALANCE Intake/Output Summary (Last 24 hours) at 03/03/18 1356 Last data filed at 03/03/18 1300 Gross per 24 hour Intake 1640 ml Output 3058 ml Net -1418 ml MEDICATIONS Current Facility-Administered Medications: valproate sodium 500 mg in NaCl 0.9% 100 mL (DEPACON) 500 mg INTRAVENOUS q 8 H metoclopramide HCl 10 mg injection (REGLAN) 10 mg INTRAVENOUS q 6 H PRN iron polysaccharide complex capsule 150 mg (FERREX-150) 150 mg ORAL BID propofol infusion (DIPRIVAN) 5-50 mcg/kg/min INTRAVENOUS CONTINUOUS furosemide 40 mg tab(s) (LASIX) 40 mg ORAL BID 9a/5p fentaNYL 50 mcg/mL 50 mcg injection (SUBLIMAZE) 50 mcg INTRAVENOUS q 2 H PRN diltiazem 30 mg tab(s) (CARDIZEM) 30 mg NASOGASTRIC q 6 H ipratropium-albuterol 3 mL nebulizer solution (DUONEB) 3 mL INHALATION QID aspirin 81 mg chewable tab(s) 81 mg ORAL DAILY apixaban 5 mg tab(s) (ELIQUIS) 5 mg ORAL BID metoprolol tartrate (short acting) 100 mg tab(s) (LOPRESSOR) 100 mg ORAL q 8 H 0.9% NaCl 20 mL 20 mL INTRAVENOUS PRN 0.9% NaCl 10 mL 10 mL INTRAVENOUS q 12 H 0.9% NaCl 20 mL 20 mL INTRAVENOUS PRN bisacodyl 10 mg suppository (DULCOLAX) 10 mg RECTAL DAILY PRN polyethylene glycol 3350 17 g packet (MIRALAX, GLYCOLAX) 17 g ORAL DAILY senna-docusate 8.6-50 mg 1 tablet (SENNA-S) 1 tablet ORAL BID pill splitter (patient-specific) 1 Each Miscell. (Med.Supl.;Non- Drugs) PRN Chlorhexidine Gluconate 0.12 % 15 mL (PERIDEX) 15 mL ORAL q 12 H budesonide 0.5 mg/2 mL 1 mg (PULMICORT) 1 mg INHALATION BID acetaminophen 650 mg tab(s) (TYLENOL) 650 mg ORAL q 6 H PRN potassium chloride iv piggyback 20 mEq in sterile water 100 mL 20 mEq INTRAVENOUS PRN magnesium sulfate in water 2 g in sterile water 50 ml 2 g INTRAVENOUS PRN(NO DISPENSE) albuterol 2.5 mg /3 mL (0.083 %) 2.5 mg (PROVENTIL) 2.5 mg INHALATION q 2 H PRN calcium chloride 1 g in D5W 100 mL 1 g INTRAVENOUS PRN(NO DISPENSE) oxyCODONE-acetaminophen 5-325 mg 1-2 tablet (PERCOCET) 1-2 tablet ORAL q 4 H PRN ondansetron (PF) 4 mg injection (ZOFRAN) 4 mg INTRAVENOUS q 6 H PRN atorvastatin 40 mg tab(s) (LIPITOR) 40 mg ORAL AT BEDTIME Lines, Drains, and Airways Line Central Line Double Lumen 02/17/18 1310 Peripherally Inserted (PICC) Right Arm 5.0 Vietnamese 14 days Drain Indwelling Urinary Catheter 02/09/18 0838 Temperature Monitoring 16 Fr 22 days GI Feed/Drain 02/22/18 1336 Gastrostomy-Jejunostomy (G-J) Abdomen 18 Fr 9 days Airway Airway Tracheostomy 02/22/18 9 days PHYSICAL EXAM PERFORMED: Cardiovascular: Irregular rhythm Respiratory: Reduced breath sounds bilat %FIO2 Min: 30 Max: 30 Abdomen: Soft Extremities: Edema- Yes Mild generalized edema Neurologic: persistent agitaion Respiratory/Nursing Documentation: O2 Therapy: Ventilator (03/03/18 1300) Invasive Ventilator Mode: Pressure Control Ventilation (03/03/18 1300) Set Ventilator Respiratory Rate (BPM): 0 (03/03/18 1300) Total Respiratory Rate (BPM): 36 (03/03/18 1300) Tidal Volume Set (mL): 0 (03/03/18 1300) Exhaled Tidal Volume (mL): 501 (03/03/18 1120) Minute Volume (L): 14.3 (03/03/18 1120) Peak Inspiratory Pressure (cm H2O): 14 (03/03/18 1120) PEEP/CPAP (cm H2O): 5 (03/03/18 1300) HEMODYNAMIC DATA: Reviewed NUTRITION: Enteral Feeds: Yes NPO DATA: Diagnostic tests reviewed for today's visit, films/specimens were personally reviewed by me: Most recent labs and imaging results. LABS: Recent Labs 03/03/18 0430 WBC 8.16 RBC 3.49* HB 11.1* HCT 34.4* MCV 98.6* PLT 294 GLUC 99 BUN 25* CREAT 0.85 NA 140 K 4.0 CHLOR 106 CO2 31 TPROT 6.6 ALB 2.3* CA 8.5 ALKPHOS 95 TBILI 0.4 AST 39* ALT 53 MG 2.1 ABG: Invalid input(s): [id number] Assessment/Plan IMPRESSION: Critical Care Documentation: The patient has the following organ/system impairment(s): Respiratory failure (Acute, with Hypoxemia) 1.sp CABG POD 18 ?? 2. Acute hypoxic andd hypercapneic respiratory failure 2/2 severe COPD and Klebsiella and E.Coli PNA/completed course of Ceftriaxone ?? 3. Persistent atrial fib-Cardizem 30mg q 6hrs 4. tube feedings for nutritional support-Impact peptide 5. Volume overload-Lasix 40mg BID 6. No seizures noted on EEG-Neurology follows 7. Plan transfer to [facility] soon 8. Persistent agitation-Propofol at 30 mcg/ As well as valproic acid And zyprexa This patient has a high probability of sudden, clinically significant deterioration, which requires the highest level of physician preparedness to intervene urgently. I managed/supervised life or organ supporting interventions that required frequent physician assessment. I devoted my full attention to the direct care of this patient for the amount of time indicated below. Time I spent with family or surrogate(s) is included only if the patient was incapable of providing the necessary information or participating in medical decision making. Time devoted to teaching is not included. Discussed with staff/patient/family Time spent providing critical care services: 40 minutes excluding procedures. SIGNATURE: Krystal Miller APRN.BEHAVIORAL HEALTH CONSULTANT PATIENT NAME: Jeffrey Cullen DATE: March 03, 2018 TIME: 1:56 PM CASE MANAGEM Observed: 03/03/2018 Status: COMPLETED Source: [place] 12:55 PM [facility] REPOSITORY HNO ID: [id number] Author: Angelica (Rn) RAINA Malcolm Service: Care Management Author Type: Registered Nurse Type: Care Mgt Progress Note Filed: 03/03/2018 12:56 PM Note Text: Plan is for [facility], hopefully on Tuesday, Mami at [facility] aware of plan. PROGRESS Observed: 03/03/2018 Status: COMPLETED Source: [place] 11:25 AM [facility] REPOSITORY HNO ID: [id number] Author: Beata Marin Service: Cardiovascular Surgery Author Type: Physician Type: Progress Notes Filed: 03/03/2018 12:58 PM Note Text: CARDIOTHORACIC SURGERY POSTOP PROGRESS NOTE SERVICE DATE: 03/03/2018 SERVICE TIME: 11:25 AM Subjective LOS: 24 INTERVAL EVENTS / PERTINENT ROS: No change overnight. Still with restlessness and on propofol. RN reports pt with +brown emesis earlier. Objective Admission Weight: 104.3 kg (229 lb 15 oz) BP 160/87 Pulse 96 Temp 38.5 ?C (101.3 ?F) (Core) Resp 30 Ht 180.3 cm (5' 10.98) Wt 104.4 kg (230 lb 2.6 oz) SpO2 97% BMI 32.12 kg/m2 Body surface area is 2.29 meters squared. Min/Max/Average Temperature AND Blood Pressure: Temp (24hrs), Av.3 ?C (99.2 ?F), Min:36.3 ?C (97.3 ?F), Max:38.5 ?C (101.3 ?F) Systolic (24hrs), Av , Min:70 , Max:160 Diastolic (24hrs), Av, Min:48, Max:108 Intake/Output Summary (Last 24 hours) at 03/03/18 1125 Last data filed at 03/03/18 1100 Gross per 24 hour Intake 2614 ml Output 2753 ml Net -139 ml Current Facility-Administered Medications: - [START ON 03/04/2018] pantoprazole 40 mg injection (PROTONIX) - valproate sodium 500 mg in NaCl 0.9% 100 mL (DEPACON) - metoclopramide HCl 10 mg injection (REGLAN) - OLANZapine 7.5 mg tab(s) (ZyPREXA) - iron polysaccharide complex capsule 150 mg (FERREX-150) - propofol infusion (DIPRIVAN) - furosemide 40 mg tab(s) (LASIX) - fentaNYL 50 mcg/mL 50 mcg injection (SUBLIMAZE) - diltiazem 30 mg tab(s) (CARDIZEM) - ipratropium-albuterol 3 mL nebulizer solution (DUONEB) - aspirin 81 mg chewable tab(s) - apixaban 5 mg tab(s) (ELIQUIS) - metoprolol tartrate (short acting) 100 mg tab(s) (LOPRESSOR) - 0.9% NaCl 20 mL - 0.9% NaCl 10 mL - 0.9% NaCl 20 mL - bisacodyl 10 mg suppository (DULCOLAX) - polyethylene glycol 3350 17 g packet (MIRALAX, GLYCOLAX) - senna-docusate 8.6-50 mg 1 tablet (SENNA-S) - pill splitter (patient-specific) - Chlorhexidine Gluconate 0.12 % 15 mL (PERIDEX) - budesonide 0.5 mg/2 mL 1 mg (PULMICORT) - acetaminophen 650 mg tab(s) (TYLENOL) - potassium chloride iv piggyback 20 mEq in sterile water 100 mL - magnesium sulfate in water 2 g in sterile water 50 ml - albuterol 2.5 mg /3 mL (0.083 %) 2.5 mg (PROVENTIL) - calcium chloride 1 g in D5W 100 mL - oxyCODONE-acetaminophen 5-325 mg 1-2 tablet (PERCOCET) - ondansetron (PF) 4 mg injection (ZOFRAN) - atorvastatin 40 mg tab(s) (LIPITOR) TELEMETRY: normal sinus rhythm PHYSICAL EXAM: General Appearance: well developed and restless, moving legs, turns head side to side, does not follow commands Skin: Midsternal incision dry AND intact., SVG incisions dry AND intact., warm and dry Lungs: respiratory effort: normal and coarse lung sounds Heart: regular rhythm and S1, S2 normal Abdomen: soft, round, bowel sounds present and G-J tube intact Genitourinary: High intact, urine color is clear yellow Extremities: edema: 1+, non-pitting Lines, Drains, and Airways Line Central Line Double Lumen 02/17/18 1310 Peripherally Inserted (PICC) Right Arm 5.0 Vietnamese 13 days Drain Indwelling Urinary Catheter 02/09/18 0838 Temperature Monitoring 16 Fr 22 days GI Feed/Drain 02/22/18 1336 Gastrostomy-Jejunostomy (G-J) Abdomen 18 Fr 8 days Airway Airway Tracheostomy 02/22/18 9 days DATA: Diagnostic tests reviewed for today's visit: Recent Labs 03/03/18 0430 03/01/18 1607 03/01/18 0624 RBC 3.49* -- 2.94* WBC 8.16 -- 5.85 HB 11.1* -- 9.3* HCT 34.4* -- 29.1* PLT 294 -- 273 NA 140 -- 141 K 4.0 -- 3.5 CHLOR 106 -- 107 CO2 31 -- 30 BUN 25* -- 17 CREAT 0.85 -- 0.63* GLUC 99 -- 116* CA 8.5 -- 8.0* MG 2.1 -- 1.9 TPROT 6.6 6.3* 5.8* TBILI 0.4 0.4 0.4 ALKPHOS 95 91 87 ALT 53 32 26 AST 39* 26 24 ANION 7* -- 8 Assessment/Plan Acute NSTEMI s/p CABG x 3 -POD#22 -c/w ASA, statin, BB ?? Acute hypoxic AND hypercapneic respiratory failure 2/2 severe COPD -s/p tracheostomy -Vent wean per ICU team ?? Paroxysmal Afib/Aflutter -Rates controlled. In NSR. -c/w Metoprolol AND Diltiazem -c/w Eliquis for OAC ?? Acute encephalopathy -Neuro following -Medications adjusted per neuro and ICU teams -Valproic acid increased and c/w zyprexa. -Propofol also increased, not able to be weaned at this time. ?? Volume Overload with LLL effusion -c/w?lasix 40mg PO BID -Monitor daily wts. -High for strict IANDO ?? Constipation -c/w miralax and senokot-s. ?? Moderate Protein-Calorie Malnutrition -s/p G-J tube -c/w tube feeds. ?? DVT ppx -SCDs AND Eliquis ? Dispo- to be discharged to [facility]; will discuss with ICU and Neuro teams. ? SIGNATURE: Clementine Owen APRN.KARINE PATIENT NAME: Jeffrey Cullen DATE: March 03, 2018 TIME: 11:25 AM PAGER/CONTACT #: [phone] Patient seen with PUBLIC ADDRESS SERVICER, labs, data, and careplan reviewed w PUBLIC ADDRESS SERVICER and bedside nurse. P-as ordered--not ready for [facility] yet? PROGRESS Observed: 03/03/2018 Status: COMPLETED Source: [place] 9:56 AM CLINIC OTHER CAMPUS REPOSITORY HNO ID: [id number] Author: Melissa Camacho Jr. Service: Neurology Author Type: Physician Type: Progress Notes Filed: 03/03/2018 4:59 PM Note Text: NEUROLOGY CONSULT PROGRESS NOTE SERVICE DATE: 03/03/2018 SERVICE TIME: 950AM Current Attending Provider: Beata Marin Subjective Interval History: Today, Jeffrey is not changed. Nursing staff states he has nonpurpose rhythmic movement. They have not done a sedation holiday recently but has been reported that he has no exaggerated movements when sedation is off. Objective Physical Examination: Neurological: Mental Status: Patient is sedated. Cranial Nerves: CNII: not assessed CNIII, IV, : Pupils equal, round and reactive to light but sluggish CN V: not assessed CN VII: not assessed CN VIII: Could not be assessed. CN IX: Gag Reflex Not Examined CN X: not assessed CN XI: Could not be assessed. ? CN XII: Could not be assessed. Motor Exam: ? Muscle Tone: Normal ? Strength today in the bilateral extremities is not changed ? Sensation: Intact to noxious stimuli in all for extremities, withdrawals on all extremities. ? Coordination: not assessed. ? Gait: Patient is unable to ambulate. New Labs: WBC (thou/cmm) Date Value 03/03/2018 8.16 03/01/2018 5.85 02/27/2018 8.62 RBC (mil/cmm) Date Value 03/03/2018 3.49 03/01/2018 2.94 02/27/2018 3.26 Platelet Count (thou/cmm) Date Value 03/03/2018 294 03/01/2018 273 02/27/2018 277 BUN (mg/dL) Date Value 03/03/2018 25 03/01/2018 17 02/27/2018 14 Creatinine (mg/dL) Date Value 03/03/2018 0.85 03/01/2018 0.63 02/27/2018 0.57 CBC, Coags, BMP, Mg, Phos Recent Labs 03/03/18 0430 03/01/18 0624 NA 140 141 K 4.0 3.5 CHLOR 106 107 CO2 31 30 GLUC 99 116* CA 8.5 8.0* MG 2.1 1.9 Liver Function, Amylase, AND Lipase Recent Labs 03/03/18 0430 03/01/18 1607 03/01/18 0624 TPROT 6.6 6.3* 5.8* ALB 2.3* 2.2* 1.9* ALT 53 32 26 AST 39* 26 24 ALKPHOS 95 91 87 TBILI 0.4 0.4 0.4 BEM Readin/5 prelimb results: Continuous video-EEG monitoring was reviewed from :22 to 18:10 on ? 03/02/18 and shows evidence of a severe diffuse encephalopathy. No ? epileptiform discharges or EEG seizures were recorded. DATA: Diagnostic tests reviewed for today's visit: Most recent labs and imaging results. Ammonia level:33 Mg-2.1 Impression/Recommendations Active Problems for consult: ??Encephalopathy ?Non-convolusive status ?-no seizures noted on EEG ?Metabolic causes?Ammonia elevation unlikely to be responsible for his encephalopathy vit B12, vit D, liver panel without acute findings ?Medication delirium ? Seizure like activity or?metabolic derangements are found ? Valproic acid increased to 500 mg q8h- Ammonia elevated at 33 today, will check tomorrow. Will check liver panel and VPA level tomorrow. ?? PERSONAL INVOLVEMENT IN CARE: Reviewing initiation, responses and adjustments to therapies, coordination of care, and updating updating family with Staff Physician, Dr. Melissa Camacho. SIGNATURE: SANA RUSSELL PA-C PATIENT NAME: Jeffrey Cullen DATE: March 03, 2018 TIME: 9:56 AM PAGER/CONTACT #: [phone] [facility] STAFF PHYSICIAN NOTE OF PERSONAL INVOLVEMENT IN CARE I have reviewed the progress note obtained and documented by the resident and I personally participated in the hernandez components. I have discussed the case and management of the patient's care. The following comments revise or confirm relevant hernandez components of their note. He remains delirious. VPA level is subtherapeutic so the dose has been increased to 500mg tid. If this fails or his ammonia or LFTs get too high we can try phenobarbitol. Melissa Camacho MD March 03, 2018 4:59 PM PROGRESS Observed: 03/03/2018 Status: COMPLETED Source: [place] 9:32 AM CLINIC OTHER CAMPUS REPOSITORY HNO ID: [id number] Author: Ten Gonsales Service: Pulmonary Disease Author Type: Physician Type: Progress Notes Filed: 03/03/2018 2:30 PM Note Text: MICU - PROGRESS NOTE SERVICE DATE: 03/03/2018 SERVICE TIME: 9:32 AM Admission Date: 02/07/2018 AGE: [age] year old LOS: 24 days Objective Hemodynamically stable No major events EXCEPT EMESIS OF PILL GT Oxygenation stable Still on propofol 40 ! No better off bzd/reglan Consultants input noted No major bleeding delerium No past medical history on file. PAST SURGICAL HISTORY Procedure Laterality Date - ORTHOPEDICS SURGERY HX - REPAIR ING HERNIA,5+Y/O,REDUCIBL 1990 Hernia repair, inguinal,left VITAL SIGNS (last 24hrs min/max): Temp Av.2 ?C (99 ?F) Min: 36.3 ?C (97.3 ?F) Max: 38.4 ?C (101.1 ?F) Pulse Av.1 Min: 68 Max: 101 No Data Recorded Cuff BP Min: 70/48 Max: 146/75 Pain Score: 5/10 Vital signs reviewed. BP 140/77 Pulse 91 Temp (Src) 101.1 (Core) Resp 18 Ht 5' 10.984 (1.80m) Wt 230 lb 2.6 oz (104.4kg) SpO2 94% BMI 32.12 kg/(m2). Temp (24hrs), Av.2 ?C (99 ?F), Min:36.3 ?C (97.3 ?F), Max:38.4 ?C (101.1 ?F) NET FLUID BALANCE Intake/Output Summary (Last 24 hours) at 03/03/18 0932 Last data filed at 03/03/18 0600 Gross per 24 hour Intake 2714 ml Output 2061 ml Net 653 ml MEDICATIONS Current Facility-Administered Medications: metoclopramide HCl 10 mg injection (REGLAN) 10 mg INTRAVENOUS q 6 H PRN iron polysaccharide complex capsule 150 mg (FERREX-150) 150 mg ORAL BID propofol infusion (DIPRIVAN) 5-50 mcg/kg/min INTRAVENOUS CONTINUOUS furosemide 40 mg tab(s) (LASIX) 40 mg ORAL BID 9a/5p fentaNYL 50 mcg/mL 50 mcg injection (SUBLIMAZE) 50 mcg INTRAVENOUS q 2 H PRN diltiazem 30 mg tab(s) (CARDIZEM) 30 mg NASOGASTRIC q 6 H ipratropium-albuterol 3 mL nebulizer solution (DUONEB) 3 mL INHALATION QID aspirin 81 mg chewable tab(s) 81 mg ORAL DAILY apixaban 5 mg tab(s) (ELIQUIS) 5 mg ORAL BID metoprolol tartrate (short acting) 100 mg tab(s) (LOPRESSOR) 100 mg ORAL q 8 H 0.9% NaCl 20 mL 20 mL INTRAVENOUS PRN 0.9% NaCl 10 mL 10 mL INTRAVENOUS q 12 H 0.9% NaCl 20 mL 20 mL INTRAVENOUS PRN bisacodyl 10 mg suppository (DULCOLAX) 10 mg RECTAL DAILY PRN polyethylene glycol 3350 17 g packet (MIRALAX, GLYCOLAX) 17 g ORAL DAILY senna-docusate 8.6-50 mg 1 tablet (SENNA-S) 1 tablet ORAL BID pill splitter (patient-specific) 1 Each Miscell. (Med.Supl.;Non- Drugs) PRN Chlorhexidine Gluconate 0.12 % 15 mL (PERIDEX) 15 mL ORAL q 12 H budesonide 0.5 mg/2 mL 1 mg (PULMICORT) 1 mg INHALATION BID acetaminophen 650 mg tab(s) (TYLENOL) 650 mg ORAL q 6 H PRN potassium chloride iv piggyback 20 mEq in sterile water 100 mL 20 mEq INTRAVENOUS PRN magnesium sulfate in water 2 g in sterile water 50 ml 2 g INTRAVENOUS PRN(NO DISPENSE) albuterol 2.5 mg /3 mL (0.083 %) 2.5 mg (PROVENTIL) 2.5 mg INHALATION q 2 H PRN calcium chloride 1 g in D5W 100 mL 1 g INTRAVENOUS PRN(NO DISPENSE) oxyCODONE-acetaminophen 5-325 mg 1-2 tablet (PERCOCET) 1-2 tablet ORAL q 4 H PRN ondansetron (PF) 4 mg injection (ZOFRAN) 4 mg INTRAVENOUS q 6 H PRN atorvastatin 40 mg tab(s) (LIPITOR) 40 mg ORAL AT BEDTIME Lines, Drains, and Airways Line Central Line Double Lumen 02/17/18 1310 Peripherally Inserted (PICC) Right Arm 5.0 Vietnamese 13 days Drain Indwelling Urinary Catheter 02/09/18 0838 Temperature Monitoring 16 Fr 22 days GI Feed/Drain 02/22/18 1336 Gastrostomy-Jejunostomy (G-J) Abdomen 18 Fr 8 days Airway Airway Tracheostomy 02/22/18 9 days PH Respiratory/Nursing Documentation: O2 Therapy: Ventilator (03/03/18824) Invasive Ventilator Mode: Continuous Positive Airway Pressure (03/03/18824) Set Ventilator Respiratory Rate (BPM): 0 (03/03/18824) Total Respiratory Rate (BPM): 15 (03/03/18824) Tidal Volume Set (mL): 550 (03/03/18 0341) Exhaled Tidal Volume (mL): 619 (03/03/18 08) Minute Volume (L): 11.8 (03/03/18 08) Peak Inspiratory Pressure (cm H2O): 24 (03/03/18824) PEEP/CPAP (cm H2O): 5 (03/03/18824) DATA: Diagnostic tests reviewed for today's visit: Most recent labs and imaging results REVIEWED. LABS: Recent Labs 03/03/18 0430 WBC 8.16 RBC 3.49* HB 11.1* HCT 34.4* MCV 98.6* PLT 294 GLUC 99 BUN 25* CREAT 0.85 NA 140 K 4.0 CHLOR 106 CO2 31 TPROT 6.6 ALB 2.3* CA 8.5 ALKPHOS 95 TBILI 0.4 AST 39* ALT 53 MG 2.1 ABG: VPA 29 LABS GOOD REPEAT NH3 X3 ACCEPTABLE CBC NL Invalid input(s): [id number] CULTURES update: CXR FINDINGS: GOOD; NO NEED BRONCH OR TAP OTHER IMAGING: Assessment/Plan PROBLEMS: Patient Active Hospital Problem List: NSTEMI (non-ST elevated myocardial infarction) (HCC) (02/07/2018) NSVT (nonsustained ventricular tachycardia) ([facility]) (02/08/2018) Nicotine use disorder, F17.2 (02/09/2018) Malnutrition of moderate degree (HCC) (02/20/2018) acute (now chronic 3 weeks) respiratory failure with trach, prolonged vent; 35%/5/psv 12 Met encephalopathy, severe motor restlessness, cognitive impairments; LFT ok,tsh, NH3, lytes ok; no better off reglan/bzd afib with rvr better; NOAC, bblocker Transient hypotension, better cabg day 23 Copd FEV1 69% preop HCAP reported 02/11 recent EColi/Kleb, normal wbc; sputum Pending Mild anemia after prolonged icu course, reduced daily labs as stable ?LLL atel/?effusion? Hypoalbuminemia Recurrent emesis despite JT feeds, off reglan 48hrs ? CRITICAL CARE PLAN: 1. DC seroquel as ineffective; off?dexmed and no BZD for now; small fentanyl as wild, thrashing, ?pain; NEW ZYPREXA AND iv DEPAKOTE, then wean off propofol and hope emerges better; =discussed with neuro Dr Camacho. 2. Noted ?MRI ?good pictures neg overall; has LUE weakness,?peripheral neuropathy, ?brachial plexopathy 3. Post pyloric TF; restart reglan prn 4. Tried psv 8-12/5 weans, did ok , until very agitated/tachyp maya 5. Discussed with pharm d, RT , RN 6. vbg good pC02 51 7. Neuro ?reevaluated 8. Lasix, low dose 10. Will US left chest ?eff but cxr looks stable 11. LFT FINE Critical Care Documentation: The patient has the following organ/system impairments: resp failure, met enceph This patient has a high probability of sudden, clinically significant deterioration, which requires the highest level of physician preparedness to intervene urgently. I managed/supervised life or organ supporting interventions that required frequent physician assessment. I devoted my full attention to the direct care of this patient for the amount of time indicated below. Time I spent with family or surrogate(s) is included only if the patient was incapable of providing the necessary information or participating in medical decision making. Time devoted to teaching is not included. Discussed with Staff / . Neuro and PharmD Time spent providing critical care services: 32 minutes excluding billable procedures. SIGNATURE: Ten Gonsales MD PATIENT NAME: Jeffrey Cullen DATE: March 03, 2018 TIME: 9:32 AM Add: Discussed with Dr Camacho, Pharm D Will inc VPA No sz on EEG Discussed JT TF with nutrition CHEST 1 VIEW Observed: 03/03/2018 Status: F Source: [facility] 6:04 AM HEALTH SYSTEM REPOSITORY Performed at [facility] APPROVED BY: Jerry Singh MD EXAMINATION: CHEST RADIOGRAPH (SINGLE VIEW AP OR PA) Clinical History: Pleural effusion. M: [id number]_4 Comparison: AP chest 02/28/2018 05:50. RESULT: Lines, tubes, and devices: Tracheostomy tube, right arm central venous catheter, and postoperative changes of coronary artery bypass graft surgery appear stable. Lungs and pleura: The left lateral costophrenic angle likely due to small pleural effusion, possibly slightly improved. No pneumothorax. No focal pulmonary consolidation. Cardiomediastinal silhouette: Trace left-sided is upper limits normal or minimally enlarged for AP technique but unchanged. Other: The visualized osseous structures appear grossly stable. IMPRESSION: Probable small left pleural effusion, likely improved. Stable postsurgical changes and life-support devices. HEMOGRAM Collected: 03/03/2018 Status: F Source: [facility] 4:30 AM HEALTH SYSTEM REPOSITORY TYPE CODE TESTS RESULT OUT OF REFERENCE UNITS RANGE LAB WBC(LOINC) 4.23-9.07 thou/cmm WBC 8.16 LAB RBC(LOINC) 4.63-6.08 mil/cmm Low RBC 3.49 LAB HGB(LOINC) 13.7-17.5 g/dL Low Hgb 11.1 LAB HCT(LOINC) 40.1-51.0 % Low Hct 34.4 LAB MCV(LOINC) 83.2-95.6 fl High MCV 98.6 LAB MCH(LOINC) 25.7-32.2 pg MCH 31.8 LAB MCHC(LOINC) 32.3-36.5 % MCHC 32.3 LAB RDW(LOINC) 11.6-14.4 % RDW 14.2 LAB RDWSD(LOINC 36.1-45.8 fl ) High RDW SD 50.9 LAB PLT(LOINC) 141-365 thou/cmm Platelet 294 LAB MPV(LOINC) 8.7-12.0 fl MPV 9.8 Performed By: #### CBC1 #### [place] [address] HEPATIC PANEL Collected: 03/03/2018 Status: F Source: [facility] 4:30 AM HEALTH SYSTEM REPOSITORY TYPE CODE TESTS RESULT OUT OF REFERENCE UNITS RANGE LAB ALB(LOINC) 3.4-5.0 g/dL Low Albumin Blood 2.3 LAB ALT(LOINC) 12-78 U/L ALT-SGPT Blood 53 LAB ALKP(LOINC 46-116 U/L ) Alk Phosphatase 95 LAB TP(LOINC) 6.4-8.2 g/dL Total Protein 6.6 LAB AST(LOINC) 9-37 U/L AST-SGOT High Blood 39 LAB BILIT(LOIN 0.2-1.0 mg/dL C) Total Bilirubin 0.4 LAB DBIL(LOINC 0.00-0.20 mg/dL ) Direct Bilirubin 0.20 Performed By: #### HEPAP #### [place] [address] VALPROIC ACID,RAND. Collected: 03/03/2018 Status: F Source: [facility] 4:30 HEALTH SYSTEM REPOSITORY TYPE CODE TESTS RESULT OUT OF REFERENCE UNITS RANGE LAB VALPR(LOINC 50-100 mg/L ) Low Valproic 29 Acid,[place]. Performed By: #### VALPR #### [place] [address] BASIC PANEL Collected: 03/03/2018 Status: F Source: [facility] 4:30 AM HEALTH SYSTEM REPOSITORY TYPE CODE TESTS RESULT OUT OF REFERENCE UNITS RANGE LAB NA(LOINC) 136-145 mEq/L Sodium Blood 140 LAB K(LOINC) 3.5-5.1 mEq/L Potassium Blood 4.0 LAB CL(LOINC) 98-107 mEq/L Chloride Blood 106 LAB CO2(LOINC) 21-32 mEq/L CO2 Blood 31 LAB GLU(LOINC) 70-99 mg/dL Glucose Blood 99 LAB BUN(LOINC) 7-18 mg/dL BUN High Blood 25 LAB CREA(LOINC 0.67-1.17 mg/dL ) Creatinine Blood 0.85 LAB CA(LOINC) 8.5-10.1 mg/dL Calcium Blood 8.5 LAB ANGAP(LOIN 8-16 C) Low Anion Gap 7 Performed By: #### P8 #### [place] [address] MAGNESIUM BLOOD Collected: 03/03/2018 Status: F Source: [facility] 4:30 AM HEALTH SYSTEM REPOSITORY TYPE CODE TESTS RESULT OUT OF REFERENCE UNITS RANGE LAB MAG(LOINC) 1.6-2.6 mg/dL Magnesium Blood 2.1 Performed By: #### MAG #### [place] [address] MDRD GFR Collected: 03/03/2018 Status: F Source: [facility] 4:30 AM HEALTH SYSTEM REPOSITORY TYPE CODE TESTS RESULT OUT OF RANGE REFERENCE UNITS LAB GFRFN(LOINC >60mL/min/1.73m ) 2 eGFR >60 Result Comment: If the patient is , multiply the result by 1.210. Performed By: #### GFR #### [place] [address] AMMONIA Collected: 03/03/2018 Status: F Source: [facility] 4:30 AM HEALTH SYSTEM REPOSITORY TYPE CODE TESTS RESULT OUT OF REFERENCE UNITS RANGE LAB DAVID(LOINC 11-32 umol/L ) High alert Ammonia 33 Performed By: #### DAVID #### [place] [address] PROGRESS Observed: 03/03/2018 Status: COMPLETED Source: [place] 3:42 AM [facility] REPOSITORY HNO ID: [id number] Author: Paulette (Rn) RAINA Garibay Service: Critical Care Author Type: Registered Nurse Type: Progress Notes Filed: 03/03/2018 3:45 AM Note Text: Pt spitting up small amount of brown liquid. Tube feed stopped. Dr. Marie notified. GLUCOSE METER Collected: 03/03/2018 Status: F Source: [facility] 12:03 AM HEALTH SYSTEM REPOSITORY TYPE CODE TESTS RESULT OUT OF REFERENCE UNITS RANGE LAB GLUBL(LOINC 70-99 mg/dL ) High Glucose Meter 114 Performed By: #### GLMET #### [place] [address] PROGRESS Observed: 03/02/2018 Status: COMPLETED Source: [place] 9:15 PM CLINIC OTHER CAMPUS REPOSITORY HNO ID: [id number] Author: Paulette (Rn) RAINA Garibay Service: Critical Care Author Type: Registered Nurse Type: Progress Notes Filed: 03/02/2018 9:19 PM Note Text: While RT conducting vent weaning trial, pt RR increased to 44, SpO2 decreased to 94%, and pt had 9 beat run of V-tach vs RVR (HR of 120). Respiratory called to bedside stop vent weaning trial. NUTRITION Observed: 03/02/2018 Status: COMPLETED Source: [place] 2:32 PM [facility] OTHER [place] REPOSITORY HNO ID: [id number] Author: Sandra Alvarado) TREASURE Almag[place] Service: Nutrition Therapy Author Type: Registered Dietitian Type: Nutrition Filed: 03/02/2018 2:58 PM Note Text: NUTRITION THERAPY REASSESSMENT SERVICE DATE: 03/02/2018 SERVICE TIME: 2:33 PM RECOMMENDED MALNUTRITION DIAGNOSIS: MILD PROTEIN-CALORIE MALNUTRITION In the context of Chronic Illness or Injury based on: Muscle Loss Moderate Loss NUTRITION CARE PLAN: Problem, Etiology and Signs/Symptoms: Suboptimal oral intake related to respiratory status, unable to eat by mouth as evidenced by NPO, tube feeding by PEG Intervention: Impact Peptide at goal rate 56 ml/hr to provide via PEG-J tube 1344 ml product - 2016 kcal, 126.3 gm protein, and 1034.9 ml free water. Flush at 200 ml 6 times per day. (Fluid volume with TF over 24 hours - 2234 ml) Coordination of Care: Nursing Monitor and Evaluation: Goal: Meet >75% of estimated needs Monitor fluid/electrolyte balance Monitor labs, I/Os, vital signs, weight Monitor tolerance to tube feeding Discharge Nutrition Recommendations: Enteral/Tube feeding: Impact Peptide at goal rate 56 ml/hr. Flush at 200 ml 6 times per day. Chart reviewed for follow-up reassessment Per HPI: 67 year old male patient with no known PMH other than long history of smoking ( 2packs a day for more than 30 years) Earlier 02/07/18?he was sitting and suddenly started having substernal chest pain, pain is intermittent with no radiation, he felt nauseas but no vomiting and no diaphoresis.This pain kept coming so he went to the ER. Underwent LHC on 02/08/18 showed need for CABG, underwent CABG on 02/09/18. Chest tubed pulled 02/11. ?Remains on vent support. ?Noted residuals and tube feeding held at present. ?Started on Reglan daily from PRN. ?02/16/18 Patient remains intubated this AM. No significant residuals noted greater than 100 cc. Toleration of tube feeding improving. ?02/20/18 ?Remains on vent support, tube feeding held at present for residual 280 ml. ?PICC placed on 02/17. ?Noted plan for trach and PEJ, if unable to extubate soon. ?Met with RN reports residual decreasing with plans to restart TF. ?BM 02/16. Interval History: Continues on tube feeding and vent support, awaiting transfer to [facility]. BM 03/02. Present Diet Order: NPO and Tube Feeding Impact Peptide 1.5 at goal 56 ml/hr Nutritional Intake: >75% estimated energy needs over the past 7 day(s), tolerating TF well via PEJ GI symptoms: unable to determine at this time Abdominal Exam: abdomen is distended and bowel sounds are hyperactive, per clinical documentation Is the patient having any pain that is interfering with oral/enteral intake? Unable to assess ANTHROPOMETRICS Height: 180.3 cm (5' 10.98) Admission Weight: 104.3 kg (229 lb 15 oz) Current Weight: 105 kg (231 lb 7.7 oz) Body mass index is 32.3 kg/(m2). class 1 obesity Weight has decreased related to volume overload, back to admit weight. Noted generalized edema 1+ and bilateral lower extremities 1+. Last Wt 03/02/18 : 105 kg (231 lb 7.7 oz) 02/07/18 : 104.3 kg (230 lb) 12/04/07 : 100.2 kg (221 lb) [place] Body Weight: 78.2kg Resting Metabolic Rate: 1897 Estimated kilocalorie needs: ?kilocalories determined by 25-30?kcal/kg ideal body weight Estimated protein needs: 102-133?grams determined by 1.3-1.7 g/kg?[place]?weight Estimated fluid needs: 3498-5334?milliliters based on 1 mL per kcal NUTRITION FOCUSED PHYSICAL EXAM: Subcutaneous Fat Loss Orbital Mild Triceps No fat loss Mid-axillary at the iliac crest Unable to determine at this time Muscle Loss Locations: Temporalis Moderate Pectoralis No muscle loss Deltoids No muscle loss Interosseous No muscle loss Latissimus dorsi, trapezius Unable to determine at this time Quadriceps No muscle loss Gastrocnemius No muscle loss Potential micronutrient deficiency revealed in: Unable to determine at this time Edema: Yes Lower extremities Mild 1+ and Generalized Ascites: No Assessment of Functional Status: Bedridden, rarely out of bed for a duration of 23 days Temperature Max in 24 hours: Temp (24hrs), Av.2 ?C (98.9 ?F), Min:36.8 ?C (98.2 ?F), Max:37.8 ?C (100 ?F) BP 92/56 Pulse 68 Temp 37 ?C (98.6 ?F) (High Thermistor) Resp 18 Ht 180.3 cm (5' 10.98) Wt 105 kg (231 lb 7.7 oz) SpO2 98% BMI 32.3 kg/m2 Recent Labs 03/01/18 1607 03/01/18 0624 GLUC -- 116* BUN -- 17 CREAT -- 0.63* NA -- 141 K -- 3.5 CHLOR -- 107 CO2 -- 30 ALB 2.2* 1.9* HB -- 9.3* HCT -- 29.1* WBC -- 5.85 MG -- 1.9 Potential Signs of Inflammation: hyperglycemia and hypoalbuminemia ALLERGIES No Known Allergies Current Facility-Administered Medications: iron polysaccharide complex capsule 150 mg (FERREX-150) 150 mg ORAL BID OLANZapine 5 mg tab(s) (ZyPREXA) 5 mg ORAL BID propofol infusion (DIPRIVAN) 5-50 mcg/kg/min INTRAVENOUS CONTINUOUS valproate sodium 250 mg in NaCl 0.9% 100 mL (DEPACON) 250 mg INTRAVENOUS q 8 H furosemide 40 mg tab(s) (LASIX) 40 mg ORAL BID 9a/5p fentaNYL 50 mcg/mL 50 mcg injection (SUBLIMAZE) 50 mcg INTRAVENOUS q 2 H PRN diltiazem 30 mg tab(s) (CARDIZEM) 30 mg NASOGASTRIC q 6 H ipratropium-albuterol 3 mL nebulizer solution (DUONEB) 3 mL INHALATION QID aspirin 81 mg chewable tab(s) 81 mg ORAL DAILY apixaban 5 mg tab(s) (ELIQUIS) 5 mg ORAL BID famotidine 20 mg tab(s) (PEPCID) 20 mg ORAL BID metoprolol tartrate (short acting) 100 mg tab(s) (LOPRESSOR) 100 mg ORAL q 8 H 0.9% NaCl 20 mL 20 mL INTRAVENOUS PRN 0.9% NaCl 10 mL 10 mL INTRAVENOUS q 12 H 0.9% NaCl 20 mL 20 mL INTRAVENOUS PRN bisacodyl 10 mg suppository (DULCOLAX) 10 mg RECTAL DAILY PRN polyethylene glycol 3350 17 g packet (MIRALAX, GLYCOLAX) 17 g ORAL DAILY senna-docusate 8.6-50 mg 1 tablet (SENNA-S) 1 tablet ORAL BID pill splitter (patient-specific) 1 Each Miscell. (Med.Supl.;Non- Drugs) PRN Chlorhexidine Gluconate 0.12 % 15 mL (PERIDEX) 15 mL ORAL q 12 H budesonide 0.5 mg/2 mL 1 mg (PULMICORT) 1 mg INHALATION BID acetaminophen 650 mg tab(s) (TYLENOL) 650 mg ORAL q 6 H PRN potassium chloride iv piggyback 20 mEq in sterile water 100 mL 20 mEq INTRAVENOUS PRN magnesium sulfate in water 2 g in sterile water 50 ml 2 g INTRAVENOUS PRN(NO DISPENSE) albuterol 2.5 mg /3 mL (0.083 %) 2.5 mg (PROVENTIL) 2.5 mg INHALATION q 2 H PRN calcium chloride 1 g in D5W 100 mL 1 g INTRAVENOUS PRN(NO DISPENSE) oxyCODONE-acetaminophen 5-325 mg 1-2 tablet (PERCOCET) 1-2 tablet ORAL q 4 H PRN ondansetron (PF) 4 mg injection (ZOFRAN) 4 mg INTRAVENOUS q 6 H PRN atorvastatin 40 mg tab(s) (LIPITOR) 40 mg ORAL AT BEDTIME Surgical Incision 02/09/18 Chest - Midsternal (Active) Dressing Status None: Open to Air 03/02/2018 7:15 AM Frequency of Dressing Change As Needed 02/27/2018 11:30 AM Incision Closures Topical Skin Adhesive 03/02/2018 7:15 AM Drainage Description None 03/02/2018 7:15 AM Drainage Amount None 03/02/2018 7:15 AM Edges Intact 03/02/2018 7:15 AM Hematoma No 03/02/2018 7:15 AM Number of days:21 Surgical Incision 02/09/18 Leg - Left (Active) Dressing Status None: Open to Air 03/02/2018 7:15 AM Frequency of Dressing Change As Needed 02/27/2018 11:30 AM Incision Closures Topical Skin Adhesive 03/02/2018 7:15 AM Drainage Description None 03/02/2018 7:15 AM Drainage Amount None 03/02/2018 7:15 AM Edges Intact 03/02/2018 7:15 AM Hematoma No 03/02/2018 7:15 AM Number of days:21 MNT Billing Type: Initial Assess/15 min 4 units SIGNATURE: Sandra Almaguer RD, AMINA PATIENT NAME: Jeffrey Cullen DATE: March 02, 2018 TIME: 2:33 PM PAGER: [phone] PROGRESS Observed: 03/02/2018 Status: COMPLETED Source: [place] 1:11 PM [facility] OTHER CAMPUS REPOSITORY O ID: [id number] Author: Ten Gonsales Service: Pulmonary Disease Author Type: Physician Type: Progress Notes Filed: 03/02/2018 1:18 PM Note Text: MICU - PROGRESS NOTE SERVICE DATE: 03/02/2018 SERVICE TIME: 1:11 PM Admission Date: 02/07/2018 AGE: [age] year old LOS: 23 days REASON FOR ICU ADMISSION: Confusion and Delirium, Respiratory Failure and S/P Surgery Objective No past medical history on file. PAST SURGICAL HISTORY Procedure Laterality Date - ORTHOPEDICS SURGERY HX - REPAIR ING HERNIA,5+Y/O,REDUCIBL 1990 Hernia repair, inguinal,left Social History Marital status: Single Spouse name: Years of education: Number of children: Social History Main Topics Smoking status: Current Every Day Smoker Packs/day: 2.00 Years: 25.00 Types: Cigarettes Alcohol use: No Drug use: No Sexual activity: Yes Partners with: Female Other Topics Concern Service No Blood Transfusions No Caffeine Concern No Occupational Exposure No Hobby Hazards No Sleep Concern No Stress Concern No Weight Concern No Special Diet No Back Care No Exercise No Bike Helmet No Seat Belt No Self-Exams No VITAL SIGNS (last 24hrs min/max): Temp Av.2 ?C (98.9 ?F) Min: 36.8 ?C (98.2 ?F) Max: 37.8 ?C (100 ?F) Pulse Av.9 Min: 71 Max: 101 No Data Recorded Cuff BP Min: 71/51 Max: 158/110 Pain Score: 0/10 Vital signs reviewed. BP 129/71 Pulse 71 Temp (Src) 99 (High Thermistor) Resp 17 Ht 5' 10.984 (1.80m) Wt 231 lb 7.7 oz (105.0kg) SpO2 100% BMI 32.30 kg/(m2). Temp (24hrs), Av.2 ?C (98.9 ?F), Min:36.8 ?C (98.2 ?F), Max:37.8 ?C (100 ?F) NET FLUID BALANCE Intake/Output Summary (Last 24 hours) at 03/02/18 1311 Last data filed at 03/02/18 1300 Gross per 24 hour Intake 4826 ml Output 5080 ml Net -254 ml MEDICATIONS Current Facility-Administered Medications: OLANZapine 5 mg tab(s) (ZyPREXA) 5 mg ORAL BID propofol infusion (DIPRIVAN) 5-50 mcg/kg/min INTRAVENOUS CONTINUOUS valproate sodium 250 mg in NaCl 0.9% 100 mL (DEPACON) 250 mg INTRAVENOUS q 8 H furosemide 40 mg tab(s) (LASIX) 40 mg ORAL BID 9a/5p fentaNYL 50 mcg/mL 50 mcg injection (SUBLIMAZE) 50 mcg INTRAVENOUS q 2 H PRN diltiazem 30 mg tab(s) (CARDIZEM) 30 mg NASOGASTRIC q 6 H ipratropium-albuterol 3 mL nebulizer solution (DUONEB) 3 mL INHALATION QID aspirin 81 mg chewable tab(s) 81 mg ORAL DAILY apixaban 5 mg tab(s) (ELIQUIS) 5 mg ORAL BID famotidine 20 mg tab(s) (PEPCID) 20 mg ORAL BID metoprolol tartrate (short acting) 100 mg tab(s) (LOPRESSOR) 100 mg ORAL q 8 H 0.9% NaCl 20 mL 20 mL INTRAVENOUS PRN 0.9% NaCl 10 mL 10 mL INTRAVENOUS q 12 H 0.9% NaCl 20 mL 20 mL INTRAVENOUS PRN bisacodyl 10 mg suppository (DULCOLAX) 10 mg RECTAL DAILY PRN polyethylene glycol 3350 17 g packet (MIRALAX, GLYCOLAX) 17 g ORAL DAILY senna-docusate 8.6-50 mg 1 tablet (SENNA-S) 1 tablet ORAL BID pill splitter (patient-specific) 1 Each Miscell. (Med.Supl.;Non- Drugs) PRN Chlorhexidine Gluconate 0.12 % 15 mL (PERIDEX) 15 mL ORAL q 12 H budesonide 0.5 mg/2 mL 1 mg (PULMICORT) 1 mg INHALATION BID acetaminophen 650 mg tab(s) (TYLENOL) 650 mg ORAL q 6 H PRN potassium chloride iv piggyback 20 mEq in sterile water 100 mL 20 mEq INTRAVENOUS PRN magnesium sulfate in water 2 g in sterile water 50 ml 2 g INTRAVENOUS PRN(NO DISPENSE) albuterol 2.5 mg /3 mL (0.083 %) 2.5 mg (PROVENTIL) 2.5 mg INHALATION q 2 H PRN calcium chloride 1 g in D5W 100 mL 1 g INTRAVENOUS PRN(NO DISPENSE) oxyCODONE-acetaminophen 5-325 mg 1-2 tablet (PERCOCET) 1-2 tablet ORAL q 4 H PRN ondansetron (PF) 4 mg injection (ZOFRAN) 4 mg INTRAVENOUS q 6 H PRN atorvastatin 40 mg tab(s) (LIPITOR) 40 mg ORAL AT BEDTIME Lines, Drains, and Airways Line Central Line Double Lumen 02/17/18 1310 Peripherally Inserted (PICC) Right Arm 5.0 Vietnamese 13 days Drain Indwelling Urinary Catheter 02/09/18 0838 Temperature Monitoring 16 Fr 21 days GI Feed/Drain 02/22/18 1336 Gastrostomy-Jejunostomy (G-J) Abdomen 18 Fr 7 days Airway Airway Tracheostomy 02/22/18 8 days PHYSICAL EXAMINATION: VITAL SIGNS: As documented General appearance: Well-developed well-nourished. Obese. Staff gives Good hygiene. Skin: Normal turgor. Not pallorous. Not diaphoretic. No jaundice. Trach and sternotomy scars ENT: No palpable lymphadenopathy. Hearing intact. Normocephalic. trach neck scar. No thyromegaly. Heme/Lymph: No significant neck adenopathy. Negative JVD on mild incline supine Lungs: Clear to auscultation. Decent inspiratory capacity. No overt wheeze. No significant hyperinflation. No fibrotic rales. No pleural rub. No dyspnea at rest. No effusion; good synchroncy vent w meds Heart: Regular rate and rhythm. Normal heart tones. No significant murmur. No peripheral edema. Normal P2 . Good perfusion distally radial. ABD: Abdomen soft, non-tender. PEG. Bowel sounds normal. No masses, organomegaly. Large abd girth Musculoskeletal: Extremities LUE weaker relatively. No deformities, no edema, or skin discoloration. Kicks well unsedated Respiratory/Nursing Documentation: O2 Therapy: Ventilator (03/02/18 1222) Invasive Ventilator Mode: Pressure Support Ventilation;Continuous Positive Airway Pressure (03/02/18 122) Set Ventilator Respiratory Rate (BPM): 15 (03/02/18 0816) Total Respiratory Rate (BPM): 16 (03/02/18 1222) Tidal Volume Set (mL): 550 (03/02/18 0816) Exhaled Tidal Volume (mL): 641 (03/02/18 1222) Minute Volume (L): 7.7 (03/02/18 1222) Peak Inspiratory Pressure (cm H2O): 17 (03/02/18 1222) PEEP/CPAP (cm H2O): 5 (03/02/18 1222) HEMODYNAMIC DATA: reviewed NUTRITION: Enteral Feeds: VENT: 11/04/30 WEANS: held SEDATION: zyprexa, depakote, propofol DRIPS: PRESSORS: none CULTURE update: none CXR FINDINGS: 4/3 Mild left eff/opac OTHER IMAGING: DATA: Diagnostic tests reviewed for today's visit: Most recent labs and imaging results REVIEWED. LABS: Recent Labs 03/01/18 1607 03/01/18 0624 WBC -- 5.85 RBC -- 2.94* HB -- 9.3* HCT -- 29.1* MCV -- 99.0* PLT -- 273 GLUC -- 116* BUN -- 17 CREAT -- 0.63* NA -- 141 K -- 3.5 CHLOR -- 107 CO2 -- 30 TPROT 6.3* 5.8* ALB 2.2* 1.9* CA -- 8.0* ALKPHOS 91 87 TBILI 0.4 0.4 AST 26 24 ALT 32 26 MG -- 1.9 ABG: Invalid input(s): [id number] Assessment/Plan PROBLEMS: Patient Active Hospital Problem List: NSTEMI (non-ST elevated myocardial infarction) ([facility]) (02/07/2018) NSVT (nonsustained ventricular tachycardia) ([facility]) (02/08/2018) Nicotine use disorder, F17.2 (02/09/2018) Malnutrition of moderate degree ([facility]) (02/20/2018) acute (now chronic 3 weeks) respiratory failure with trach, prolonged vent; 35%/5 Met encephalopathy, severe motor restlessness, cognitive impairments; LFT ok,tsh, NH3, lytes ok afib with rvr better Transient hypotension, better cabg day 21 Copd FEV1 69% preop HCAP reported 02/11 recent EColi/Kleb, normal wbc Mild anemia after prolonged icu course, reduced daily labs as stable ?LLL atel/?effusion? hypoalbuminemia ? ?? CRITICAL CARE PLAN: 1. DC seroquel as ineffective; DC?dexmed and no BZD for now; small fentanyl as wild, thrashing, ?pain; NEW ZYPREXA AND DEPAKOTE, wean off propofol and hope emerges better; =discussed with neuro Dr Camacho. 2. Noted ?MRI ?good pictures neg overall; has LUE weakness,?peripheral neuropathy, ?brachial plexopathy 3. Post pyloric TF well 4. Tried psv 10/5 weans, did ok , until very agitated/tachyp maya 5. Discussed with pharm d, RT , RN 6. vbg good pC02 51 7. Neuro reevaluated 8. Weaned off reglan as risk qtc and small chance confusion etiology; 9. Lasix 10. Will US left chest ?eff Critical Care Documentation: The patient has the following organ/system impairment(s): Complex life-threatening medical problem(s), Encephalopathy and Respiratory failure (Acute on Chronic, with Hypercapnea) This patient has a high probability of sudden, clinically significant deterioration, which requires the highest level of physician preparedness to intervene urgently. I managed/supervised life or organ supporting interventions that required frequent physician assessment. I devoted my full attention to the direct care of this patient for the amount of time indicated below. Time I spent with family or surrogate(s) is included only if the patient was incapable of providing the necessary information or participating in medical decision making. Time devoted to teaching is not included. Patient Updated No Family Updated No Discussed with Staff Yes Time spent providing critical care services: 30 minutes excluding billable procedures. SIGNATURE: Ten Gonsales MD PATIENT NAME: Jeffrey Cullen DATE: March 02, 2018 TIME: 1:11 PM PROGRESS Observed: 03/02/2018 Status: COMPLETED Source: [place] 11:40 AM CLINIC OTHER CAMPUS REPOSITORY HNO ID: [id number] Author: Beata Marin Service: Cardiovascular Surgery Author Type: Physician Type: Progress Notes Filed: 03/03/2018 10:12 AM Note Text: CARDIOTHORACIC SURGERY POSTOP PROGRESS NOTE SERVICE DATE: 03/02/2018 SERVICE TIME: 11:40am Subjective LOS: 23 INTERVAL EVENTS / PERTINENT ROS: Calm, sedated on propofol. Objective Admission Weight: 104.3 kg (229 lb 15 oz) BP 111/63 Pulse 73 Temp 37 ?C (98.6 ?F) (High Thermistor) Resp 20 Ht 180.3 cm (5' 10.98) Wt 105 kg (231 lb 7.7 oz) SpO2 97% BMI 32.3 kg/m2 Body surface area is 2.29 meters squared. Min/Max/Average Temperature AND Blood Pressure: Temp (24hrs), Av.2 ?C (98.9 ?F), Min:36.8 ?C (98.2 ?F), Max:37.8 ?C (100 ?F) Systolic (24hrs), Av , Min:71 , Max:153 Diastolic (24hrs), Av, Min:48, Max:99 Current Facility-Administered Medications: - iron polysaccharide complex capsule 150 mg (FERREX-150) - valproate sodium 500 mg in NaCl 0.9% 100 mL (DEPACON) - OLANZapine 5 mg tab(s) (ZyPREXA) - propofol infusion (DIPRIVAN) - valproate sodium 250 mg in NaCl 0.9% 100 mL (DEPACON) - furosemide 40 mg tab(s) (LASIX) - fentaNYL 50 mcg/mL 50 mcg injection (SUBLIMAZE) - diltiazem 30 mg tab(s) (CARDIZEM) - ipratropium-albuterol 3 mL nebulizer solution (DUONEB) - aspirin 81 mg chewable tab(s) - apixaban 5 mg tab(s) (ELIQUIS) - famotidine 20 mg tab(s) (PEPCID) - metoprolol tartrate (short acting) 100 mg tab(s) (LOPRESSOR) - 0.9% NaCl 20 mL - 0.9% NaCl 10 mL - 0.9% NaCl 20 mL - bisacodyl 10 mg suppository (DULCOLAX) - polyethylene glycol 3350 17 g packet (MIRALAX, GLYCOLAX) - senna-docusate 8.6-50 mg 1 tablet (SENNA-S) - pill splitter (patient-specific) - Chlorhexidine Gluconate 0.12 % 15 mL (PERIDEX) - budesonide 0.5 mg/2 mL 1 mg (PULMICORT) - acetaminophen 650 mg tab(s) (TYLENOL) - potassium chloride iv piggyback 20 mEq in sterile water 100 mL - magnesium sulfate in water 2 g in sterile water 50 ml - albuterol 2.5 mg /3 mL (0.083 %) 2.5 mg (PROVENTIL) - calcium chloride 1 g in D5W 100 mL - oxyCODONE-acetaminophen 5-325 mg 1-2 tablet (PERCOCET) - ondansetron (PF) 4 mg injection (ZOFRAN) - atorvastatin 40 mg tab(s) (LIPITOR) TELEMETRY: normal sinus rhythm PHYSICAL EXAM: General Appearance: no distress and sedated Skin: Midsternal incision dry AND intact. and SVG incisions dry AND intact. Lungs: clear and respiratory effort: normal Heart: regular rhythm and S1, S2 normal Abdomen: soft, non-tender and bowel sounds present Genitourinary: High intact, urine color is clear yellow Extremities: edema: 1+ Lines, Drains, and Airways Line Central Line Double Lumen 02/17/18 1310 Peripherally Inserted (PICC) Right Arm 5.0 Vietnamese 13 days Drain Indwelling Urinary Catheter 02/09/18 0838 Temperature Monitoring 16 Fr 21 days GI Feed/Drain 02/22/18 1336 Gastrostomy-Jejunostomy (G-J) Abdomen 18 Fr 8 days Airway Airway Tracheostomy 02/22/18 8 days DATA: Diagnostic tests reviewed for today's visit: Recent Labs 03/01/18 1607 03/01/18 0624 02/28/18 1458 RBC -- 2.94* -- WBC -- 5.85 -- HB -- 9.3* -- HCT -- 29.1* -- PLT -- 273 -- NA -- 141 -- K -- 3.5 -- CHLOR -- 107 -- CO2 -- 30 -- BUN -- 17 -- CREAT -- 0.63* -- GLUC -- 116* -- CA -- 8.0* -- MG -- 1.9 -- TPROT 6.3* 5.8* 5.8* TBILI 0.4 0.4 0.5 ALKPHOS 91 87 91 ALT 32 26 26 AST 26 24 20 ANION -- 8 -- Assessment/Plan Acute NSTEMI s/p CABG x 3 -POD#21 -c/w ASA, statin, BB ?? Acute hypoxic AND hypercapneic respiratory failure 2/2 severe COPD -s/p tracheostomy -Vent wean per ICU team ?? Paroxysmal Afib/Aflutter -Rates controlled. Mostly in NSR. -c/w Metoprolol AND Diltiazem -c/w Eliquis for OAC ?? Acute encephalopathy -Neuro following; continuous EEG in progress. -Medications adjusted per neuro and ICU teams -Valproic acid and zyprexa now. Propofol for sedation and wean that as able. ?? Volume Overload with LLL effusion -c/w?lasix 40mg PO BID -Monitor daily wts. -High for strict IANDO ?? Constipation -Resolved -c/w miralax and senokot-s. ? Moderate Protein-Calorie Malnutrition -s/p G-J tube -c/w tube feeds. ?? DVT ppx -SCDs AND Eliquis Dispo- to be discharged to [facility] once EEG is complete and tolerating new sedation regimen. Tests/Labs Ordered: 1. BMP 2. CBC SIGNATURE: Clementine Owen APRN.CNP PATIENT NAME: Jeffrey Cullen DATE: March 02, 2018 TIME: 3:54 PM PAGER/CONTACT #: [phone] Patient seen yesterday with PUBLIC ADDRESS SERVICER and labs, data, medication changes, and careplan reviewed. AMMONIA Collected: 03/02/2018 Status: F Source: [facility] 10:18 AM HEALTH SYSTEM REPOSITORY TYPE CODE TESTS RESULT OUT OF REFERENCE UNITS RANGE LAB DAVID(LOINC 11-32 umol/L ) High alert Ammonia 37 Performed By: #### DAVID #### [facility] [address] [place] [id number] Observed: 03/02/2018 Status: F Source: [facility] CULT AND SMR 9:44 AM HEALTH SYSTEM RESPIRATORY REPOSITORY Test performed at [facility] Few normal oropharyngeal shannan No WBC seen Few Gram negative bacilli Rare Gram positive cocci ORGANISM: Escherichia coli (ID: 1) Moderate ORGANISM: Klebsiella oxytoca (ID: 2) Moderate Performed By: #### C_RES #### [place] [id number] CASE MANAGEM Observed: 03/02/2018 Status: COMPLETED Source: [place] 8:59 AM [facility] REPOSITORY HNO ID: [id number] Author: Angelica (Rn) RAINA Malcolm Service: Care Management Author Type: Registered Nurse Type: Care Mgt Progress Note Filed: 03/02/2018 9:02 AM Note Text: Spoke with Andrade Hidalgo Liaison, [facility] able to accept today, but have only four available beds at this time, Aida Lai aware, can take pt on Propofol. PROGRESS Observed: 03/02/2018 Status: COMPLETED Source: [place] 7:00 AM [facility] OTHER [place] REPOSITORY HNO ID: [id number] Author: Manuel (Res) MD Kobi Service: Neurology Author Type: Resident Type: Progress Notes Filed: 03/02/2018 7:13 AM Note Text: Attestation signed by Melissa Camacho Jr. at 03/02/2018 4:[address] [facility] STAFF PHYSICIAN NOTE OF PERSONAL INVOLVEMENT IN CARE I have reviewed the progress note obtained and documented by the resident and I personally participated in the hernandez components. I have discussed the case and management of the patient's care. The following comments revise or confirm relevant hernandez components of their note. His VPA level is subtherapeutic so we will give him an extra one time 500mg dose now and repeat level with ammonia and lover panel in AM. Melissa Camacho MD March 02, 2018 3:59 PM NEURO ICU - PROGRESS NOTE SERVICE DATE: 03/02/2018 SERVICE TIME: 07 Objective DETAILED REVIEW VITAL SIGNS (last 24hrs min/max): Temp Av.8 ?C (98.2 ?F) Min: 36.5 ?C (97.7 ?F) Max: 37 ?C (98.6 ?F) Pulse Av.4 Min: 64 Max: 114 Cuff BP Min: 85/56 Max: 158/110 Resp Av.7 Min: 14 Max: 29 SpO2 Av.5 % Min: 93 % Max: 100 % No Data Recorded No Data RecordedNo Data RecordedNo Data RecordedNo Data Recorded Pain Score: 0/10 INTAKE/OUTPUT: Intake/Output Summary (Last 24 hours) at 03/02/18 0701 Last data filed at 03/02/18 0700 Gross per 24 hour Intake 3812 ml Output 5846 ml Net -2034 ml CSF: N/A MIVF: No fluids PO/TF: Tube Feed Type: Impact peptid 1.5 Rate: 1344 qd FREE WATER: Rate 1200 mL qd BM: Has the patient had a BM in the last 24 hours? No. Intervention: Per primary PHYSICAL EXAM AND PERTINENT DATA Neuro: Sedated, moving all four ext, withdrawals to pain in all four ext, CV: rrr, no m/g/r, healing midline scar Pulm: CTAB Mechanical Ventilation: GI/: S/NT/ND Skin/Extremities: Edema- No Peripheral pulses- Present all extremities Wounds/Drsgs- No Breakdown- No Current Facility-Administered Medications: OLANZapine 5 mg tab(s) (ZyPREXA) 5 mg ORAL BID propofol infusion (DIPRIVAN) 5-50 mcg/kg/min INTRAVENOUS CONTINUOUS valproate sodium 250 mg in NaCl 0.9% 100 mL (DEPACON) 250 mg INTRAVENOUS q 8 H furosemide 40 mg tab(s) (LASIX) 40 mg ORAL BID 9a/5p fentaNYL 50 mcg/mL 50 mcg injection (SUBLIMAZE) 50 mcg INTRAVENOUS q 2 H PRN diltiazem 30 mg tab(s) (CARDIZEM) 30 mg NASOGASTRIC q 6 H ipratropium-albuterol 3 mL nebulizer solution (DUONEB) 3 mL INHALATION QID aspirin 81 mg chewable tab(s) 81 mg ORAL DAILY apixaban 5 mg tab(s) (ELIQUIS) 5 mg ORAL BID famotidine 20 mg tab(s) (PEPCID) 20 mg ORAL BID metoprolol tartrate (short acting) 100 mg tab(s) (LOPRESSOR) 100 mg ORAL q 8 H 0.9% NaCl 20 mL 20 mL INTRAVENOUS PRN 0.9% NaCl 10 mL 10 mL INTRAVENOUS q 12 H 0.9% NaCl 20 mL 20 mL INTRAVENOUS PRN bisacodyl 10 mg suppository (DULCOLAX) 10 mg RECTAL DAILY PRN polyethylene glycol 3350 17 g packet (MIRALAX, GLYCOLAX) 17 g ORAL DAILY senna-docusate 8.6-50 mg 1 tablet (SENNA-S) 1 tablet ORAL BID pill splitter (patient-specific) 1 Each Miscell. (Med.Supl.;Non- Drugs) PRN Chlorhexidine Gluconate 0.12 % 15 mL (PERIDEX) 15 mL ORAL q 12 H budesonide 0.5 mg/2 mL 1 mg (PULMICORT) 1 mg INHALATION BID acetaminophen 650 mg tab(s) (TYLENOL) 650 mg ORAL q 6 H PRN potassium chloride iv piggyback 20 mEq in sterile water 100 mL 20 mEq INTRAVENOUS PRN magnesium sulfate in water 2 g in sterile water 50 ml 2 g INTRAVENOUS PRN(NO DISPENSE) albuterol 2.5 mg /3 mL (0.083 %) 2.5 mg (PROVENTIL) 2.5 mg INHALATION q 2 H PRN calcium chloride 1 g in D5W 100 mL 1 g INTRAVENOUS PRN(NO DISPENSE) oxyCODONE-acetaminophen 5-325 mg 1-2 tablet (PERCOCET) 1-2 tablet ORAL q 4 H PRN ondansetron (PF) 4 mg injection (ZOFRAN) 4 mg INTRAVENOUS q 6 H PRN atorvastatin 40 mg tab(s) (LIPITOR) 40 mg ORAL AT BEDTIME LABS: CBC, Coags, BMP, Mg, Phos Recent Labs 03/01/18 0624 WBC 5.85 HB 9.3* HCT 29.1* PLT 273 NA 141 K 3.5 CHLOR 107 CO2 30 BUN 17 CREAT 0.63* GLUC 116* CA 8.0* MG 1.9 Liver Function, Amylase, AND Lipase Recent Labs 03/01/18 1607 03/01/18 0624 02/28/18 1458 TPROT 6.3* 5.8* 5.8* ALB 2.2* 1.9* 1.9* ALT 32 26 26 AST 26 24 20 ALKPHOS 91 87 91 TBILI 0.4 0.4 0.5 DATA: Diagnostic tests reviewed for today's visit: Most recent labs and imaging results. Assessment/Plan 67 y/o male with delirium and altered mental status after CABG (POD #21), continued despite precidex, ativan, redirection without obvious infectious or structural cause especially?given negative MRI - leading differential is medication delirium however non-convulsive status epilepticus or?metabolic abnormality could also be considered. 4/4 No improvement after change in medications, now on propofol sedation due to extreme agitation. Started valproate, ammonia is elevated, repeat was basically stable and no changes in hepatic panel. ? Active Problems for consult: Encephalopathy Non-convolusive status ?24 hour BEM negative for seizures Could d/c BEM Metabolic causes?Ammonia elevation unlikely to be responsible for his encephalopathy vit B12, vit D, liver panel without acute findings Medication delirium ?Pepcid, reglan and lipitor can cause ams, and could be discontinued tomorrow if no seizure like activity or metabolic derangements are found ?Ativan can paradoxically worsen delirium, but would expect to see diffuse beta activity on EEG Valproic acid started Ammonia elevated, possible upward trend, repeat in 5 hours prior to next dose PERSONAL INVOLVEMENT IN CARE: Reviewing initiation, responses and adjustments to therapies, coordination of care, and updating updating family with Staff Physician, Dr. Camacho. SIGNATURE: Manuel Peace MD PATIENT NAME: Jeffrey Cullen DATE: March 02, 2018 TIME: 7:01 AM PAGER/CONTACT #: [phone] VALPROIC ACID,RAND. Collected: 03/02/2018 Status: F Source: [facility] 3:50 AM HEALTH SYSTEM REPOSITORY TYPE CODE TESTS RESULT OUT OF REFERENCE UNITS RANGE LAB VALPR(LOINC 50-100 mg/L ) Low Valproic 28 Acid,[place]. Performed By: #### VALPR #### [place] [address] AMMONIA Collected: 03/02/2018 Status: F Source: [facility] 3:50 AM HEALTH SYSTEM REPOSITORY TYPE CODE TESTS RESULT OUT OF REFERENCE UNITS RANGE LAB DAVID(LOINC 11-32 umol/L ) High alert Ammonia 43 Performed By: #### DAVID #### [place] [address] HEPATIC PANEL Collected: 03/01/2018 Status: F Source: [facility] 4:07 PM HEALTH SYSTEM REPOSITORY TYPE CODE TESTS RESULT OUT OF REFERENCE UNITS RANGE LAB ALB(LOINC) 3.4-5.0 g/dL Low Albumin Blood 2.2 LAB ALT(LOINC) 12-78 U/L ALT-SGPT Blood 32 LAB ALKP(LOINC 46-116 U/L ) Alk Phosphatase 91 LAB TP(LOINC) 6.4-8.2 g/dL Low Total Protein 6.3 LAB AST(LOINC) 9-37 U/L AST-SGOT Blood 26 LAB BILIT(LOIN 0.2-1.0 mg/dL C) Total Bilirubin 0.4 LAB DBIL(LOINC 0.00-0.20 mg/dL ) Direct High Bilirubin 0.25 Performed By: #### HEPAP #### [place] [id number] PROGRESS Observed: 03/01/2018 Status: COMPLETED Source: [place] 10:35 AM CLINIC OTHER CAMPUS REPOSITORY O ID: [id number] Author: Clementine Owen Service: Cardiovascular Surgery Author Type: Nurse Practitioner Type: Progress Notes Filed: 03/01/2018 10:48 AM Note Text: CARDIOTHORACIC SURGERY POSTOP PROGRESS NOTE SERVICE DATE: 03/01/2018 SERVICE TIME: 10:35 AM Subjective LOS: 22 INTERVAL EVENTS / PERTINENT ROS: Pt very agitated and restless today. Objective Admission Weight: 104.3 kg (229 lb 15 oz) BP 85/56 Pulse 73 Temp 37 ?C (98.6 ?F) (Axillary) Resp 18 Ht 180.3 cm (5' 10.98) Wt 109.1 kg (240 lb 8.4 oz) SpO2 97% BMI 33.56 kg/m2 Body surface area is 2.34 meters squared. Min/Max/Average Temperature AND Blood Pressure: Temp (24hrs), Av.4 ?C (97.5 ?F), Min:36 ?C (96.8 ?F), Max:37 ?C (98.6 ?F) Systolic (24hrs), Av , Min:85 , Max:148 Diastolic (24hrs), Av, Min:56, Max:101 Intake/Output Summary (Last 24 hours) at 03/01/18 1035 Last data filed at 03/01/18 0857 Gross per 24 hour Intake 3520 ml Output 3859 ml Net -339 ml Current Facility-Administered Medications: - furosemide 40 mg tab(s) (LASIX) - QUEtiapine (SEROquel) tab(s) 75 mg - fentaNYL 50 mcg/mL 50 mcg injection (SUBLIMAZE) - LORazepam 1 mg injection (ATIVAN) - diltiazem 30 mg tab(s) (CARDIZEM) - ipratropium-albuterol 3 mL nebulizer solution (DUONEB) - aspirin 81 mg chewable tab(s) - apixaban 5 mg tab(s) (ELIQUIS) - famotidine 20 mg tab(s) (PEPCID) - metoprolol tartrate (short acting) 100 mg tab(s) (LOPRESSOR) - 0.9% NaCl 20 mL - 0.9% NaCl 10 mL - 0.9% NaCl 20 mL - bisacodyl 10 mg suppository (DULCOLAX) - polyethylene glycol 3350 17 g packet (MIRALAX, GLYCOLAX) - senna-docusate 8.6-50 mg 1 tablet (SENNA-S) - pill splitter (patient-specific) - Chlorhexidine Gluconate 0.12 % 15 mL (PERIDEX) - budesonide 0.5 mg/2 mL 1 mg (PULMICORT) - acetaminophen 650 mg tab(s) (TYLENOL) - potassium chloride iv piggyback 20 mEq in sterile water 100 mL - magnesium sulfate in water 2 g in sterile water 50 ml - albuterol 2.5 mg /3 mL (0.083 %) 2.5 mg (PROVENTIL) - calcium chloride 1 g in D5W 100 mL - oxyCODONE-acetaminophen 5-325 mg 1-2 tablet (PERCOCET) - ondansetron (PF) 4 mg injection (ZOFRAN) - atorvastatin 40 mg tab(s) (LIPITOR) TELEMETRY: normal sinus rhythm PHYSICAL EXAM: General Appearance: restless, kicking legs over side of bed. Skin: Midsternal incision dry AND intact. and SVG incisions dry AND intact. Lungs: wheezes, respiratory effort: abnormal and tachypneic, labored Heart: regular rhythm and S1, S2 normal Abdomen: round, bowel sounds present and slightly distended Genitourinary: High intact, urine color is clear yellow Extremities: edema: 1+ Lines, Drains, and Airways Line Central Line Double Lumen 02/17/18 1310 Peripherally Inserted (PICC) Right Arm 5.0 Vietnamese 11 days Drain Indwelling Urinary Catheter 02/09/18 0838 Temperature Monitoring 16 Fr 20 days GI Feed/Drain 02/22/18 1336 Gastrostomy-Jejunostomy (G-J) Abdomen 18 Fr 6 days Airway Airway Tracheostomy 02/22/18 7 days DATA: Diagnostic tests reviewed for today's visit: Recent Labs 03/01/18 0624 02/28/18 1458 02/27/18 0400 RBC 2.94* -- 3.26* WBC 5.85 -- 8.62 HB 9.3* -- 10.3* HCT 29.1* -- 31.8* PLT 273 -- 277 NA 141 -- 142 K 3.5 -- 3.8 CHLOR 107 -- 110* CO2 30 -- 27 BUN 17 -- 14 CREAT 0.63* -- 0.57* GLUC 116* -- 92 CA 8.0* -- 8.3* MG 1.9 -- -- TPROT 5.8* 5.8* -- TBILI 0.4 0.5 -- ALKPHOS 87 91 -- ALT 26 26 -- AST 24 20 -- ANION 8 -- 9 Assessment/Plan Acute NSTEMI s/p CABG x 3 -POD#20 -c/w ASA, statin, BB ?? Acute hypoxic AND hypercapneic respiratory failure 2/2 severe COPD -s/p tracheostomy -Vent wean per ICU team ?? Paroxysmal Afib/Aflutter -Rates controlled. Mostly in NSR. -c/w Metoprolol AND Diltiazem -c/w Eliquis for OAC ?? Acute encephalopathy -Neuro following; continuous EEG in progress. -c/w Precedex, Seroquel; ICU team added Haldol -Fentanyl for pain. -Limit Ativan -VBG ok. Ammonia level normal. ?? Volume Overload with LLL effusion -c/w lasix 40mg PO BID -High for strict IANDO ?? Constipation -c/w miralax and senokot-s. -Dulcolax ND today Moderate Protein-Calorie Malnutrition -s/p G-J tube -c/w tube feeds. -dc Reglan as residuals low and increased risk of prolonged QTc with seroquel. ?? DVT ppx -SCDs AND Eliquis SIGNATURE: Clementine Owen APRN.[employer] PATIENT NAME: Jeffrey Cullen DATE: March 01, 2018 TIME: 10:35 AM PAGER/CONTACT #: [phone] [id number] PROGRESS Observed: 03/01/2018 Status: COMPLETED Source: [place] 8:37 AM [facility] OTHER CAMPUS REPOSITORY HNO ID: [id number] Author: Ten Gonsales Service: Pulmonary Disease Author Type: Physician Type: Progress Notes Filed: 03/01/2018 3:06 PM Note Text: SERVICE DATE: 03/01/2018 SERVICE TIME: 8:37 AM Admission Date: 02/07/2018 AGE: [age] year old LOS: 22 days REASON FOR ICU ADMISSION: Respiratory Failure and S/P Surgery Objective Variable motor resltess legs> arms, limited one step command vss lesley Jtube TF Inc seroquel and some narcotic helped per rn Now on cont EEG Vent , weaned once, dont know why not multiple per RT report No past medical history on file. PAST SURGICAL HISTORY Procedure Laterality Date - ORTHOPEDICS SURGERY HX - REPAIR ING HERNIA,5+Y/O,REDUCIBL 1989 Hernia repair, inguinal,left Social History Marital status: Single Spouse name: Years of education: Number of children: Social History Main Topics Smoking status: Current Every Day Smoker Packs/day: 2.00 Years: 25.00 Types: Cigarettes Alcohol use: No Drug use: No Sexual activity: Yes Partners with: Female Other Topics Concern Service No Blood Transfusions No Caffeine Concern No Occupational Exposure No Hobby Hazards No Sleep Concern No Stress Concern No Weight Concern No Special Diet No Back Care No Exercise No Bike Helmet No Seat Belt No Self-Exams No VITAL SIGNS (last 24hrs min/max): Temp Av.4 ?C (97.5 ?F) Min: 36 ?C (96.8 ?F) Max: 37 ?C (98.6 ?F) Pulse Av.9 Min: 62 Max: 105 No Data Recorded Cuff BP Min: 94/59 Max: 148/101 Pain Score: 2/10 Vital signs reviewed. BP 128/73 Pulse 64 Temp (Src) 98.6 (Axillary) Resp 17 Ht 5' 10.984 (1.80m) Wt 240 lb 8.4 oz (109.1kg) SpO2 98% BMI 33.56 kg/(m2). Temp (24hrs), Av.4 ?C (97.5 ?F), Min:36 ?C (96.8 ?F), Max:37 ?C (98.6 ?F) NET FLUID BALANCE Intake/Output Summary (Last 24 hours) at 03/01/18 0837 Last data filed at 03/01/18 0700 Gross per 24 hour Intake 3600 ml Output 4029 ml Net -429 ml MEDICATIONS Current Facility-Administered Medications: furosemide 40 mg tab(s) (LASIX) 40 mg ORAL BID 9a/5p metoclopramide HCl 5 mg injection (REGLAN) 5 mg INTRAVENOUS BID (0600/2100) QUEtiapine (SEROquel) tab(s) 75 mg 75 mg ORAL TID fentaNYL 50 mcg/mL 50 mcg injection (SUBLIMAZE) 50 mcg INTRAVENOUS q 2 H PRN LORazepam 1 mg injection (ATIVAN) 1 mg INTRAVENOUS q 4 H PRN diltiazem 30 mg tab(s) (CARDIZEM) 30 mg NASOGASTRIC q 6 H ipratropium-albuterol 3 mL nebulizer solution (DUONEB) 3 mL INHALATION QID dexmedetomidine 400 mcg in NaCl 0.9% 100 mL (PRECEDEX) 0.2- 0.7 mcg/kg/hr INTRAVENOUS CONTINUOUS aspirin 81 mg chewable tab(s) 81 mg ORAL DAILY apixaban 5 mg tab(s) (ELIQUIS) 5 mg ORAL BID famotidine 20 mg tab(s) (PEPCID) 20 mg ORAL BID metoprolol tartrate (short acting) 100 mg tab(s) (LOPRESSOR) 100 mg ORAL q 8 H 0.9% NaCl 20 mL 20 mL INTRAVENOUS PRN 0.9% NaCl 10 mL 10 mL INTRAVENOUS q 12 H 0.9% NaCl 20 mL 20 mL INTRAVENOUS PRN bisacodyl 10 mg suppository (DULCOLAX) 10 mg RECTAL DAILY PRN polyethylene glycol 3350 17 g packet (MIRALAX, GLYCOLAX) 17 g ORAL DAILY senna-docusate 8.6-50 mg 1 tablet (SENNA-S) 1 tablet ORAL BID pill splitter (patient-specific) 1 Each Miscell. (Med.Supl.;Non- Drugs) PRN Chlorhexidine Gluconate 0.12 % 15 mL (PERIDEX) 15 mL ORAL q 12 H budesonide 0.5 mg/2 mL 1 mg (PULMICORT) 1 mg INHALATION BID acetaminophen 650 mg tab(s) (TYLENOL) 650 mg ORAL q 6 H PRN potassium chloride iv piggyback 20 mEq in sterile water 100 mL 20 mEq INTRAVENOUS PRN magnesium sulfate in water 2 g in sterile water 50 ml 2 g INTRAVENOUS PRN(NO DISPENSE) albuterol 2.5 mg /3 mL (0.083 %) 2.5 mg (PROVENTIL) 2.5 mg INHALATION q 2 H PRN calcium chloride 1 g in D5W 100 mL 1 g INTRAVENOUS PRN(NO DISPENSE) oxyCODONE-acetaminophen 5-325 mg 1-2 tablet (PERCOCET) 1-2 tablet ORAL q 4 H PRN ondansetron (PF) 4 mg injection (ZOFRAN) 4 mg INTRAVENOUS q 6 H PRN atorvastatin 40 mg tab(s) (LIPITOR) 40 mg ORAL AT BEDTIME Lines, Drains, and Airways Line Central Line Double Lumen 02/17/18 1310 Peripherally Inserted (PICC) Right Arm 5.0 Vietnamese 11 days Drain Indwelling Urinary Catheter 02/09/18 0838 Temperature Monitoring 16 Fr 19 days GI Feed/Drain 02/22/18 1336 Gastrostomy-Jejunostomy (G-J) Abdomen 18 Fr 6 days Airway Airway Tracheostomy 02/22/18 7 days PHYSICAL EXAMINATION: VITAL SIGNS: As documented General appearance: Well-developed well-nourished. mild overweight. . CVL. trach Skin: Normal turgor. Not pallorous. Not diaphoretic. No jaundice. healed scars Eyes: Pupils equally reactive to light. Midline. No jaundice. opens to voice ENT: No palpable lymphadenopathy. Normocephalic.. No thyromegaly. Good dentition. No macroglossia. Supple neck Heme/Lymph: No significant neck adenopathy. Negative JVD on mild incline supine Lungs: Clear to auscultation. Decent inspiratory capacity. No overt wheeze. No significant hyperinflation. No fibrotic rales. No pleural rub. No dyspnea at rest. No effusion Heart: Regular rate and rhythm. Normal heart tones. No significant murmur. No peripheral edema. Normal P2 . Good perfusion distally radial. CHEST tubes out ABD: Abdomen soft, non-tender. Bowel sounds normal. No masses, organomegaly. Musculoskeletal: No deformities, no edema, or skin discoloration. Good capillary refill Neuro: upper limbs less motor. No gross cerebellar dysfunction.. Poor attention. Restless when not sedated; poor focus Respiratory/Nursing Documentation: O2 Therapy: Ventilator (03/01/18 0800) Invasive Ventilator Mode: Pressure Regulated Volume Control (03/01/18323) Set Ventilator Respiratory Rate (BPM): 15 (03/01/18323) Total Respiratory Rate (BPM): 17 (03/01/18323) Tidal Volume Set (mL): 550 (03/01/18323) Exhaled Tidal Volume (mL): 651 (03/01/18323) Minute Volume (L): 8.8 (03/01/18323) Peak Inspiratory Pressure (cm H2O): 18 (03/01/18323) PEEP/CPAP (cm H2O): 5 (03/01/18323) HEMODYNAMIC DATA: reviewed VENT: 35/5 WEANS: psv 8/5 very good when calm SEDATION: dexmed 0.7, seroquel 75 tid DRIPS: PRESSORS: none CULTURES: CXR FINDINGS: Decent yest OTHER IMAGING: DATA: Diagnostic tests reviewed for today's visit: Most recent labs and imaging results REVIEWED. LABS: Recent Labs 03/01/18 0624 WBC 5.85 RBC 2.94* HB 9.3* HCT 29.1* MCV 99.0* PLT 273 GLUC 116* BUN 17 CREAT 0.63* NA 141 K 3.5 CHLOR 107 CO2 30 TPROT 5.8* ALB 1.9* CA 8.0* ALKPHOS 87 TBILI 0.4 AST 24 ALT 26 MG 1.9 ABG: Invalid input(s): [id number] Assessment/Plan PROBLEMS: Patient Active Hospital Problem List: NSTEMI (non-ST elevated myocardial infarction) ([facility]) (02/07/2018) NSVT (nonsustained ventricular tachycardia) ([facility]) (02/08/2018) Nicotine use disorder, F17.2 (02/09/2018) Malnutrition of moderate degree ([facility]) (02/20/2018) acute respiratory failure with trach, prolonged vent; 35%/5 Met encephalopathy, severe motor restlessness, cognitive impairments; LFT ok,tsh, lytes ok afib with rvr better Transient hypotension, better cabg day 20 Copd FEV1 69% preop HCAP reported 02/11 recent EColi/Kleb, normal wbc Mild anemia after prolonged icu course, reduced daily labs as stable ?LLL atel/?effusion? ? CRITICAL CARE PLAN: 1. Mild inc seroquel yest; DC dexmed for now; small fentanyl as wild, thrashing, ?pain 2. Noted MRI good pictures neg overall 3. Post pyloric TF well 4. Tried psv 10/5 weans, did ok , not sure why not retried 5. Discussed with pharm d, RT , RN 6. vbg good pC02 51, last 02/25 7. Neuro reeval 8. Wean reglan as risk qtc and small chance confusion etiology; reduced ativan # 9. Lasix 10. Will US left chest ?eff ?? Critical Care Documentation: The patient has the following organ/system impairment(s): Encephalopathy and Respiratory failure (Acute, with Hypercapnea, with Hypoxemia) This patient has a high probability of sudden, clinically significant deterioration, which requires the highest level of physician preparedness to intervene urgently. I managed/supervised life or organ supporting interventions that required frequent physician assessment. I devoted my full attention to the direct care of this patient for the amount of time indicated below. Time I spent with family or surrogate(s) is included only if the patient was incapable of providing the necessary information or participating in medical decision making. Time devoted to teaching is not included. Patient Updated No Family Updated No Discussed with Staff Yes, pharm D Time spent providing critical care services: 35 minutes excluding billable procedures. SIGNATURE: Ten Gonsales MD PATIENT NAME: Jeffrey Cullen DATE: March 01, 2018 TIME: 8:37 AM ADD: PT GETS explosive kicking, multiple RNs to assist holding down, thrashes head, inc HR, inc RR (weaned very well when calm and asleep on minimal psv); not related to low bzd; off reglan; labs ok. Became unstable restlessness state with potential self and staff harm Will stop dexmed Will give short term propofol Will start zyprexa in place of seroquel Need neuro input, despite no major structural visible lesion on MRI , his toxic encephalopathy is main current ICU issue. Ten Gonsales MD 3:05 PM VENOUS BLOOD GAS Collected: 03/01/2018 Status: F Source: [facility] 6:24 AM HEALTH SYSTEM REPOSITORY TYPE CODE TESTS RESULT OUT OF REFERENCE UNITS RANGE LAB TEMPC(LOIN C) Temperature 36 LAB FIO2V(LOIN % C) FIO2 40 LAB PHV(LOINC) 7.320-7.420 pH Venous 7.370 LAB PCO2I(LOIN 38.0-49.0 mm Hg C) PCO2 Venous High 51.5 LAB PO2VI(LOIN 35.0-45.0 mm Hg C) PO2 Venous High 50.5 LAB HCO3C(LOIN 22.0-26.0 mEq/L C) HCO3- High 29.4 LAB BASE(LOINC -2.5 to 2.5 mEq/L ) Base Excess 3.1 LAB O2%V(LOINC 70.0-80.0 % ) O2% Sat High Venous 90.7 Performed By: #### VBG #### [facility] [address] [place] [id number] HEMOGRAM/DIFF Collected: 03/01/2018 Status: F Source: [facility] 6:24 AM HEALTH SYSTEM REPOSITORY TYPE CODE TESTS RESULT OUT OF REFERENCE UNITS RANGE LAB WBC(LOINC) 4.23-9.07 thou/cmm WBC 5.85 LAB RBC(LOINC) 4.63-6.08 mil/cmm Low RBC 2.94 LAB HGB(LOINC) 13.7-17.5 g/dL Low Hgb 9.3 LAB HCT(LOINC) 40.1-51.0 % Low Hct 29.1 LAB MCV(LOINC) 83.2-95.6 fl MCV High 99.0 LAB MCH(LOINC) 25.7-32.2 pg MCH 31.6 LAB MCHC(LOINC 32.3-36.5 % ) Low MCHC 32.0 LAB RDW(LOINC) 11.6-14.4 % RDW 13.5 LAB RDWSD(LOIN 36.1-45.8 fl C) RDW SD High 47.9 LAB PLT(LOINC) 141-365 thou/cmm Platelet 273 LAB MPV(LOINC) 8.7-12.0 fl MPV 10.2 LAB SEG(LOINC) % Seg Neutrophil 58.3 LAB IGRE(LOINC % ) Immature Grans 0.70 LAB LYMPH(LOIN % C) Lymphocyte 28.0 LAB MNO(LOINC) % Monocyte 8.4 LAB EOSIN(LOIN % C) Eosinophil 3.9 LAB BASO(LOINC % ) Basophil 0.7 LAB SEGN(LOINC 1.78-5.38 thou/cmm ) Abs. Neut 3.41 LAB IGAB(LOINC 0.00-0.05 thou/cmm ) Abs Immature Grans 0.04 LAB LYMN(LOINC 0.84-2.85 thou/cmm ) Abs. Lymph 1.64 LAB MONON(LOIN 0.30-0.82 thou/cmm C) Abs. Slope 0.49 LAB EOSN(LOINC 0.04-0.54 thou/cmm ) Abs. Eosin 0.23 LAB BASON(LOIN 0.01-0.08 thou/cmm C) Abs. Baso 0.04 Performed By: #### CBCD1 #### [place] [address] AMMONIA Collected: 03/01/2018 Status: F Source: [facility] 6:24 AM HEALTH SYSTEM REPOSITORY TYPE CODE TESTS RESULT OUT OF REFERENCE UNITS RANGE LAB DAVID(LOINC 11-32 umol/L ) High alert Ammonia 38 Performed By: #### DAVID #### [place] [address] BASIC PANEL Collected: 03/01/2018 Status: F Source: [facility] 6:24 AM HEALTH SYSTEM REPOSITORY TYPE CODE TESTS RESULT OUT OF REFERENCE UNITS RANGE LAB NA(LOINC) 136-145 mEq/L Sodium Blood 141 LAB K(LOINC) 3.5-5.1 mEq/L Potassium Blood 3.5 LAB CL(LOINC) 98-107 mEq/L Chloride Blood 107 LAB CO2(LOINC) 21-32 mEq/L CO2 Blood 30 LAB GLU(LOINC) 70-99 mg/dL Glucose High Blood 116 LAB BUN(LOINC) 7-18 mg/dL BUN Blood 17 LAB CREA(LOINC 0.67-1.17 mg/dL ) Low Creatinine Blood 0.63 LAB CA(LOINC) 8.5-10.1 mg/dL Low Calcium Blood 8.0 LAB ANGAP(LOIN 8-16 C) Anion Gap 8 Performed By: #### P8 #### [place] [address] MAGNESIUM BLOOD Collected: 03/01/2018 Status: F Source: [facility] 6:24 AM HEALTH SYSTEM REPOSITORY TYPE CODE TESTS RESULT OUT OF REFERENCE UNITS RANGE LAB MAG(LOINC) 1.6-2.6 mg/dL Magnesium Blood 1.9 Performed By: #### MAG #### [place] [address] HEPATIC PANEL Collected: 03/01/2018 Status: F Source: [facility] 6:24 AM HEALTH SYSTEM REPOSITORY TYPE CODE TESTS RESULT OUT OF REFERENCE UNITS RANGE LAB ALB(LOINC) 3.4-5.0 g/dL Low Albumin Blood 1.9 LAB ALT(LOINC) 12-78 U/L ALT-SGPT Blood 26 LAB ALKP(LOINC 46-116 U/L ) Alk Phosphatase 87 LAB TP(LOINC) 6.4-8.2 g/dL Low Total Protein 5.8 LAB AST(LOINC) 9-37 U/L AST-SGOT Blood 24 LAB BILIT(LOIN 0.2-1.0 mg/dL C) Total Bilirubin 0.4 LAB DBIL(LOINC 0.00-0.20 mg/dL ) Direct High Bilirubin 0.22 Performed By: #### HEPAP #### [facility] [address] [place] [id number] MDRD GFR Collected: 03/01/2018 Status: F Source: [facility] 6:24 AM HEALTH SYSTEM REPOSITORY TYPE CODE TESTS RESULT OUT OF RANGE REFERENCE UNITS LAB GFRFN(LOINC >60mL/min/1.73m ) 2 eGFR >60 Result Comment: If the patient is , multiply the result by 1.210. Performed By: #### GFR #### [place] [address] CONSULT PROG Observed: 02/28/2018 Status: COMPLETED Source: [place] 3:07 PM CLINIC OTHER CAMPUS REPOSITORY HNO ID: [id number] Author: Melissa Camacho Jr. Service: Neurology Author Type: Physician Type: Consult Progress Note Filed: 03/01/2018 3:37 PM Note Text: NEUROLOGY CONSULT PROGRESS NOTE SERVICE DATE: 02/28/2018 SERVICE TIME: 1230 Current Attending Provider: Beata Marin Subjective Interval History: Today, Jeffrey is not changed. He continues to be encephalopathic with unclear cause. He is writhing in bed and requiring precidex as well as ativan to control agitation. No fevers noted. He is POD 19 Objective Physical Examination: Neurological: ? Mental Status: He is drowsy, and arousable to mild noxious stimuli. He does not follow commands. ? Motor Exam: 1. Moving all four ext - exam limited 2/2 mental status New Labs: WBC (thou/cmm) Date Value 02/27/2018 8.62 02/26/2018 8.86 02/25/2018 10.26 RBC (mil/cmm) Date Value 02/27/2018 3.26 02/26/2018 3.31 02/25/2018 3.15 Platelet Count (thou/cmm) Date Value 02/27/2018 277 02/26/2018 249 02/25/2018 244 BUN (mg/dL) Date Value 02/27/2018 14 02/26/2018 20 02/25/2018 22 Creatinine (mg/dL) Date Value 02/27/2018 0.57 02/26/2018 0.56 02/25/2018 0.62 CBC, Coags, BMP, Mg, Phos Recent Labs 02/27/18 0400 02/26/18 1010 NA 142 140 K 3.8 3.4* CHLOR 110* 110* CO2 27 26 GLUC 92 119* CA 8.3* 8.0* Liver Function, Amylase, AND Lipase BEM Reading: Will be present tomorrow DATA: Diagnostic tests reviewed for today's visit: Most recent labs and imaging results. MRI Negative for acute findings. Impression/Recommendations 67 y/o male with delirium and altered mental status after CABG (POD #19), continued despite precidex, ativan, redirection without obvious infectious or structural cause especially given negative MRI - leading differential is medication delirium however non-convulsive status epilepticus or metabolic abnormality could also be considered. Active Problems for consult: Encephalopathy Non-convolusive status Unlikely given negative MRI which given length of symtpoms, would likely show some swelling, but 24 hour BEM recommended. Metabolic causes Check ammonia, vit B12, vit D, liver panel is recommended. Medication delirium Pepcid, reglan and lipitor can cause ams, and could be discontinued tomorrow if no seizure like activity or metabolic derangements are found Ativan can paradoxically worsen delirium, but would expect to see diffuse beta activity on EEG SIGNATURE: Manuel Peace MD PATIENT NAME: Jeffrey Cullen DATE: February 28, 2018 TIME: 3:08 PM PAGER/CONTACT #: [phone] Late entry attestation pt was physically seen yesterday not today. [facility] STAFF PHYSICIAN NOTE OF PERSONAL INVOLVEMENT IN CARE I have reviewed the progress note obtained and documented by the resident and I personally participated in the hernandez components. I have discussed the case and management of the patient's care. The following comments revise or confirm relevant hernandez components of their note. His MRI is basically normal. Possibilities for his encephalopathy include meds (Pepcid, Ativan especially, Reglan). Would minimize or DC these as feasible and see if he improves. Melissa Camacho MD March 01, 2018 3:37 PM [place] Collected: 02/28/2018 Status: F Source: [facility] 2:58 PM HEALTH SYSTEM REPOSITORY TYPE CODE TESTS RESULT OUT OF REFERENCE UNITS RANGE LAB DAVID(LOINC 11-32 umol/L ) Ammonia 28 Performed By: #### DAVID #### [place] [address] HEPATIC PANEL Collected: 02/28/2018 Status: F Source: [facility] 2:58 PM HEALTH SYSTEM REPOSITORY TYPE CODE TESTS RESULT OUT OF REFERENCE UNITS RANGE LAB ALB(LOINC) 3.4-5.0 g/dL Low Albumin Blood 1.9 LAB ALT(LOINC) 12-78 U/L ALT-SGPT Blood 26 LAB ALKP(LOINC 46-116 U/L ) Alk Phosphatase 91 LAB TP(LOINC) 6.4-8.2 g/dL Low Total Protein 5.8 LAB AST(LOINC) 9-37 U/L AST-SGOT Blood 20 LAB BILIT(LOIN 0.2-1.0 mg/dL C) Total Bilirubin 0.5 LAB DBIL(LOINC 0.00-0.20 mg/dL ) Direct High Bilirubin 0.29 Performed By: #### HEPAP #### [place] [address] VITAMIN B12 Collected: 02/28/2018 Status: F Source: [facility] 2:58 PM HEALTH SYSTEM REPOSITORY TYPE CODE TESTS RESULT OUT OF REFERENCE UNITS RANGE LAB B12(LOINC) 193-986 pg/mL Vitamin B12 914 Performed By: #### B12 #### [place] [address] TSH, 3RD GENERATION Collected: 02/28/2018 Status: F Source: [facility] 2:58 PM HEALTH SYSTEM REPOSITORY TYPE CODE TESTS RESULT OUT OF REFERENCE UNITS RANGE LAB TSH3(LOINC 0.358-3.740 uIU/mL ) TSH, 3rd generation 0.579 Performed By: #### TSH3 #### [facility] [address] [place], [place] [address] TOTAL 25-OH VITAMIN Collected: 02/28/2018 Status: F Source: [place] 2:58 PM HEALTH SYSTEM REPOSITORY TYPE CODE TESTS RESULT OUT OF REFERENCE UNITS RANGE LAB 25VD1(LOINC 30.0-100.0 ng/mL ) Low Total 25-OH 27.5 Vitamin D Performed By: #### 25VD1 #### [facility] [address] [place], [place] [address] PROGRESS Observed: 02/28/2018 Status: COMPLETED Source: [place] 11:14 AM CLINIC OTHER CAMPUS REPOSITORY HNO ID: [id number] Author: Ten Gonsales Service: Pulmonary Disease Author Type: Physician Type: Progress Notes Filed: 02/28/2018 11:42 AM Note Text: MICU - PROGRESS NOTE SERVICE DATE: 02/28/2018 SERVICE TIME: 11:14 AM Admission Date: 02/07/2018 AGE: [age] year old LOS: 21 days REASON FOR ICU ADMISSION: Confusion and Delirium, Respiratory Failure and S/P Surgery Objective Poor cognitive, tries to sit up, flops legs over rails, LUE appears weaker and less motor relatively bp better Not wean much ?why tachypena with agitation Post MRI , no major event Neuro to followup today Less GT output TF well Trach stitched No past medical history on file. PAST SURGICAL HISTORY Procedure Laterality Date - ORTHOPEDICS SURGERY HX - REPAIR ING HERNIA,5+Y/O,REDUCIBL 1990 Hernia repair, inguinal,left Social History Marital status: Single Spouse name: Years of education: Number of children: Social History Main Topics Smoking status: Current Every Day Smoker Packs/day: 2.00 Years: 25.00 Types: Cigarettes Alcohol use: No Drug use: No Sexual activity: Yes Partners with: Female Other Topics Concern Service No Blood Transfusions No Caffeine Concern No Occupational Exposure No Hobby Hazards No Sleep Concern No Stress Concern No Weight Concern No Special Diet No Back Care No Exercise No Bike Helmet No Seat Belt No Self-Exams No VITAL SIGNS (last 24hrs min/max): Temp Av.7 ?C (98.1 ?F) Min: 36.4 ?C (97.5 ?F) Max: 37 ?C (98.6 ?F) Pulse Av Min: 64 Max: 108 No Data Recorded Cuff BP Min: 64/46 Max: 143/81 Pain Score: 0/10 Vital signs reviewed. BP 102/61 Pulse 80 Temp (Src) 97.5 (Axillary) Resp 21 Ht 5' 10.984 (1.80m) Wt 244 lb 0.8 oz (110.7kg) SpO2 95% BMI 34.05 kg/(m2). Temp (24hrs), Av.7 ?C (98.1 ?F), Min:36.4 ?C (97.5 ?F), Max:37 ?C (98.6 ?F) NET FLUID BALANCE Intake/Output Summary (Last 24 hours) at 02/28/18 1114 Last data filed at 02/28/18 1000 Gross per 24 hour Intake 2947.5 ml Output 2822 ml Net 125.5 ml MEDICATIONS Current Facility-Administered Medications: QUEtiapine 50 mg tablet (SEROquel) 50 mg ORAL TID morphine 2 mg injection 2 mg INTRAVENOUS q 2 H PRN diltiazem 30 mg tab(s) (CARDIZEM) 30 mg NASOGASTRIC q 6 H ipratropium-albuterol 3 mL nebulizer solution (DUONEB) 3 mL INHALATION QID metoclopramide HCl 5 mg injection (REGLAN) 5 mg INTRAVENOUS q 8 HR dexmedetomidine 400 mcg in NaCl 0.9% 100 mL (PRECEDEX) 0.2- 0.7 mcg/kg/hr INTRAVENOUS CONTINUOUS aspirin 81 mg chewable tab(s) 81 mg ORAL DAILY apixaban 5 mg tab(s) (ELIQUIS) 5 mg ORAL BID famotidine 20 mg tab(s) (PEPCID) 20 mg ORAL BID metoprolol tartrate (short acting) 100 mg tab(s) (LOPRESSOR) 100 mg ORAL q 8 H 0.9% NaCl 20 mL 20 mL INTRAVENOUS PRN 0.9% NaCl 10 mL 10 mL INTRAVENOUS q 12 H 0.9% NaCl 20 mL 20 mL INTRAVENOUS PRN nystatin 5 mL oral liquid (MYCOSTATIN) 5 mL ORAL QID LORazepam 2 mg injection (ATIVAN) 2 mg INTRAVENOUS q 4 H PRN bisacodyl 10 mg suppository (DULCOLAX) 10 mg RECTAL DAILY PRN polyethylene glycol 3350 17 g packet (MIRALAX, GLYCOLAX) 17 g ORAL DAILY senna-docusate 8.6-50 mg 1 tablet (SENNA-S) 1 tablet ORAL BID pill splitter (patient-specific) 1 Each Miscell. (Med.Supl.;Non- Drugs) PRN Chlorhexidine Gluconate 0.12 % 15 mL (PERIDEX) 15 mL ORAL q 12 H budesonide 0.5 mg/2 mL 1 mg (PULMICORT) 1 mg INHALATION BID acetaminophen 650 mg tab(s) (TYLENOL) 650 mg ORAL q 6 H PRN potassium chloride iv piggyback 20 mEq in sterile water 100 mL 20 mEq INTRAVENOUS PRN magnesium sulfate in water 2 g in sterile water 50 ml 2 g INTRAVENOUS PRN(NO DISPENSE) albuterol 2.5 mg /3 mL (0.083 %) 2.5 mg (PROVENTIL) 2.5 mg INHALATION q 2 H PRN calcium chloride 1 g in D5W 100 mL 1 g INTRAVENOUS PRN(NO DISPENSE) oxyCODONE-acetaminophen 5-325 mg 1-2 tablet (PERCOCET) 1-2 tablet ORAL q 4 H PRN ondansetron (PF) 4 mg injection (ZOFRAN) 4 mg INTRAVENOUS q 6 H PRN atorvastatin 40 mg tab(s) (LIPITOR) 40 mg ORAL AT BEDTIME Lines, Drains, and Airways Line Central Line Double Lumen 02/17/18 1310 Peripherally Inserted (PICC) Right Arm 5.0 Vietnamese 10 days Drain Indwelling Urinary Catheter 02/09/18 0838 Temperature Monitoring 16 Fr 19 days GI Feed/Drain 02/22/18 1336 Gastrostomy-Jejunostomy (G-J) Abdomen 18 Fr 5 days Airway Airway Tracheostomy 02/22/18 6 days Respiratory/Nursing Documentation: O2 Therapy: Ventilator (02/28/18823) Invasive Ventilator Mode: Pressure Regulated Volume Control (02/28/18823) Set Ventilator Respiratory Rate (BPM): 15 (02/28/18823) Total Respiratory Rate (BPM): 17 (02/28/18823) Tidal Volume Set (mL): 550 (02/28/18823) Exhaled Tidal Volume (mL): 639 (02/28/18823) Minute Volume (L): 19.1 (02/28/18823) Peak Inspiratory Pressure (cm H2O): 21 (02/28/18823) PEEP/CPAP (cm H2O): 5 (02/28/18823) HEMODYNAMIC DATA: reviewed NUTRITION: Enteral Feeds: yes WEANS: psv/5 SEDATION: dexmed; seroquel DRIPS: dexmed PRESSORS: none CULTURE update: CXR FINDINGS: Findings: There is a right arm venous catheter unchanged in position. ?Tracheostomy tube is present. ?Cardiac leads overlie the patient. ?Median sternotomy wires are present. ? The cardiac and mediastinal contours are unchanged. ?Mild bibasilar pleural/parenchymal opacities appear unchanged. ?No visible pneumothorax. ? ? IMPRESSION: ? Stable portable chest. OTHER IMAGING: IMPRESSION: ? 1. ?No evidence of acute ischemic infarct. ?Minimal chronic small vessel ischemic changes of the supratentorial white matter. ?MRI brain without contrast is otherwise unremarkable. 2. ?MRA the head is within normal limits. 3. ?Mild atherosclerotic stenosis of the proximal left internal carotid artery as described above. ?MRA of the neck is otherwise within normal limits. DATA: Diagnostic tests reviewed for today's visit: Most recent labs and imaging results REVIEWED. LABS: Recent Labs 02/27/18 0400 WBC 8.62 RBC 3.26* HB 10.3* HCT 31.8* MCV 97.5* PLT 277 GLUC 92 BUN 14 CREAT 0.57* NA 142 K 3.8 CHLOR 110* CO2 27 CA 8.3* ABG: Invalid input(s): [id number] Assessment/Plan PROBLEMS: Patient Active Hospital Problem List: NSTEMI (non-ST elevated myocardial infarction) ([facility]) (02/07/2018) NSVT (nonsustained ventricular tachycardia) ([facility]) (02/08/2018) Nicotine use disorder, F17.2 (02/09/2018) Malnutrition of moderate degree ([facility]) (02/20/2018) acute respiratory failure with trach, prolonged vent; 40/5 Met encephalopathy, severe motor restlessness, cognitive impairments afib with rvr better Transient hypotension, better cabg day 19 Copd FEV1 69% preop HCAP reported 02/11 recent EColi/Kleb, normal wbc Mild anemia after prolonged icu course, reduced daily labs as stable ?LLL atel/?effusion? CRITICAL CARE PLAN: 1. Mild inc seroquel again; dexmed for now; small fentanyl as wild, thrashing, ?pain 2. Noted MRI good pictures neg overall 3. Post pyloric TF well 4. Tried psv 10/5 weans, did ok one hr, not sure why not retried 5. Discussed with pharm d 6. vbg in am, last 02/25 7. Neuro to reeval 8. Wean reglan as risk qtc and small chance confusion 9. Lasix 10. Consider US left chest ?eff ? Critical Care Documentation: The patient has the following organ/system impairment(s): Encephalopathy and Respiratory failure (Acute, with Hypoxemia) This patient has a high probability of sudden, clinically significant deterioration, which requires the highest level of physician preparedness to intervene urgently. I managed/supervised life or organ supporting interventions that required frequent physician assessment. I devoted my full attention to the direct care of this patient for the amount of time indicated below. Time I spent with family or surrogate(s) is included only if the patient was incapable of providing the necessary information or participating in medical decision making. Time devoted to teaching is not included. Patient Updated No Family Updated No Discussed with Staff Yes, cTS note teller, RT, RN Time spent providing critical care services: 35 minutes excluding billable procedures. SIGNATURE: Ten Gonsales MD PATIENT NAME: Jeffrey Cullen DATE: February 28, 2018 TIME: 11:14 AM PROGRESS Observed: 02/28/2018 Status: COMPLETED Source: [place] 11:00 AM [facility] OTHER CAMPUS REPOSITORY O ID: [id number] Author: Beata Marin Service: Cardiovascular Surgery Author Type: Physician Type: Progress Notes Filed: 02/28/2018 6:34 PM Note Text: CARDIOTHORACIC SURGERY POSTOP PROGRESS NOTE SERVICE DATE: 02/28/2018 SERVICE TIME: 11:00am Subjective LOS: 21 INTERVAL EVENTS / PERTINENT ROS: No events overnight. Objective Admission Weight: 104.3 kg (229 lb 15 oz) BP 113/73 Pulse 73 Temp 36.4 ?C (97.5 ?F) Resp 19 Ht 180.3 cm (5' 10.98) Wt 110.7 kg (244 lb 0.8 oz) SpO2 100% BMI 34.05 kg/m2 Body surface area is 2.35 meters squared. Min/Max/Average Temperature AND Blood Pressure: Temp (24hrs), Av.7 ?C (98.1 ?F), Min:36.4 ?C (97.5 ?F), Max:37 ?C (98.6 ?F) Systolic (24hrs), Av , Min:64 , Max:143 Diastolic (24hrs), Av, Min:46, Max:86 Intake/Output Summary (Last 24 hours) at 02/28/18 1533 Last data filed at 02/28/18 1500 Gross per 24 hour Intake 3137.5 ml Output 3376 ml Net -238.5 ml Current Facility-Administered Medications: - furosemide 40 mg tab(s) (LASIX) - metoclopramide HCl 5 mg injection (REGLAN) - QUEtiapine (SEROquel) tab(s) 75 mg - fentaNYL 50 mcg/mL 50 mcg injection (SUBLIMAZE) - LORazepam 1 mg injection (ATIVAN) - diltiazem 30 mg tab(s) (CARDIZEM) - ipratropium-albuterol 3 mL nebulizer solution (DUONEB) - dexmedetomidine 400 mcg in NaCl 0.9% 100 mL (PRECEDEX) - aspirin 81 mg chewable tab(s) - apixaban 5 mg tab(s) (ELIQUIS) - famotidine 20 mg tab(s) (PEPCID) - metoprolol tartrate (short acting) 100 mg tab(s) (LOPRESSOR) - 0.9% NaCl 20 mL - 0.9% NaCl 10 mL - 0.9% NaCl 20 mL - nystatin 5 mL oral liquid (MYCOSTATIN) - bisacodyl 10 mg suppository (DULCOLAX) - polyethylene glycol 3350 17 g packet (MIRALAX, GLYCOLAX) - senna-docusate 8.6-50 mg 1 tablet (SENNA-S) - pill splitter (patient-specific) - Chlorhexidine Gluconate 0.12 % 15 mL (PERIDEX) - budesonide 0.5 mg/2 mL 1 mg (PULMICORT) - acetaminophen 650 mg tab(s) (TYLENOL) - potassium chloride iv piggyback 20 mEq in sterile water 100 mL - magnesium sulfate in water 2 g in sterile water 50 ml - albuterol 2.5 mg /3 mL (0.083 %) 2.5 mg (PROVENTIL) - calcium chloride 1 g in D5W 100 mL - oxyCODONE-acetaminophen 5-325 mg 1-2 tablet (PERCOCET) - ondansetron (PF) 4 mg injection (ZOFRAN) - atorvastatin 40 mg tab(s) (LIPITOR) TELEMETRY: normal sinus rhythm PHYSICAL EXAM: General Appearance: no distress and sedated; sleeping now but agitated at times Skin: Midsternal incision dry AND intact. and SVG incisions dry AND intact. Lungs: clear and respiratory effort: normal Heart: regular rhythm and S1, S2 normal Abdomen: soft and bowel sounds present Genitourinary: High intact, urine color is clear yellow Extremities: edema: 1+ Lines, Drains, and Airways Line Central Line Double Lumen 02/17/18 1310 Peripherally Inserted (PICC) Right Arm 5.0 Vietnamese 11 days Drain Indwelling Urinary Catheter 02/09/18 0838 Temperature Monitoring 16 Fr 19 days GI Feed/Drain 02/22/18 1336 Gastrostomy-Jejunostomy (G-J) Abdomen 18 Fr 6 days Airway Airway Tracheostomy 02/22/18 6 days DATA: Diagnostic tests reviewed for today's visit: Recent Labs 02/27/18 0400 02/26/18 1010 02/26/18 0410 RBC 3.26* -- 3.31* WBC 8.62 -- 8.86 HB 10.3* -- 10.6* HCT 31.8* -- 32.7* PLT 277 -- 249 NA 142 140 -- K 3.8 3.4* -- CHLOR 110* 110* -- CO2 27 26 -- BUN 14 20* -- CREAT 0.57* 0.56* -- GLUC 92 119* -- CA 8.3* 8.0* -- ANION 9 7* -- Assessment/Plan Acute NSTEMI s/p CABG x 3 -POD#19 -c/w ASA, statin, BB ?? Acute hypoxic AND hypercapneic respiratory failure 2/2 severe COPD -s/p tracheostomy -Vent wean per ICU team ?? Paroxysmal Afib/Aflutter -c/w Metoprolol AND Diltiazem -c/w Eliquis for OAC ?? Acute encephalopathy -MRI/MRA of brain with no acute infarct and essentially unremarkable. -Neuro to re-eval -c/w Precedex, increase Seroquel -Limit Ativan ? Oral Thrush -Resolved ?? Volume Overload with LLL effusion -Will increase lasix 40mg PO to BID per Dr. Sophia Wilkins for strict IANDO ?? Moderate Protein-Calorie Malnutrition -s/p G-J tube -c/w tube feeds. -Weaning Reglan; residuals remain low. ?? DVT ppx -SCDs AND Eliquis SIGNATURE: Clementine Owen APRN.KARINE PATIENT NAME: Jeffrey Cullen DATE: February 28, 2018 TIME: 3:33 PM PAGER/CONTACT #: [phone] Patient seen, labs, data, MRI results, and careplan reviewed with PUBLIC ADDRESS SERVICER earlier today in CVICU. CHEST 1 VIEW Observed: 02/28/2018 Status: F Source: [facility] 6:28 AM HEALTH SYSTEM REPOSITORY Performed at [facility] APPROVED BY: Melissa Youngblood MD Exam: Portable view of the chest dated 02/28/2018 05:50. Indication: Status post CABG. Comparison: 02/25/2018. Findings: There is a right arm venous catheter unchanged in position. Tracheostomy tube is present. Cardiac leads overlie the patient. Median sternotomy wires are present. The cardiac and mediastinal contours are unchanged. Mild bibasilar pleural/parenchymal opacities appear unchanged. No visible pneumothorax. IMPRESSION: Stable portable chest. NURSING PROG Observed: 02/27/2018 Status: COMPLETED Source: [place] 11:15 PM [facility] OTHER CAMPUS REPOSITORY HNO ID: [id number] Author: Arvind (Rn) RAINA Jenkins Service: Nursing Author Type: Registered Nurse Type: Nursing Progress Note Filed: 02/28/2018 2:06 AM Note Text: Nursing Progress Note Patient Name: Jeffrey Cullen Patient Location: [id number]-323* Daily Note: Transported pt to [facility] with RN, RT, and 2x transporters at 2045 vitals stable, Returned to pts room at 2200 with RN, RT, and 2x transporters. Pt bathed 2230, bed sheets changed. [address] Low that pt received different medications prior to MRI and pt has had lower blood pressures after MRI asked for a NS bolus. Orders received for 500ml NS bolus. (see flowsheet for vitals and trends). Blood pressure trended back up and is stable by 02/28/2018 0000 This note was completed by: Arvind Jenkins RN MRI BRAIN W/O Observed: 02/27/2018 Status: F Source: [facility] 9:45 PM HEALTH SYSTEM REPOSITORY Performed at [facility] APPROVED BY: Jerry Singh MD EXAMINATION: MRI BRAIN WITHOUT CONTRAST, MRA NECK WITHOUT CONTRAST, MRA BRAIN WITHOUT CONTRAST HISTORY: Encephalopathy. Status post coronary artery bypass graft surgery on 02/09/2018. TECHNIQUE: Routine noncontrast MRI protocol including diffusion and gradient echo images. Intracranial and extracranial 3D [id number] MRA with 2D multiplanar and 3D maximum intensity projections calculated on the imaging workstation under physician supervision. MQ: [id number] COMPARISON: CT head 02/18/2018. RESULT: BRAIN: Acute Change: There is no evidence of restricted diffusion to suggest an acute infarct. Hemorrhage: No evidence of prior parenchymal hemorrhage on the gradient echo images. Mass Lesion/ Mass Effect: No evidence of an intracranial mass or extra-axial fluid collection. No significant mass effect. Chronic Change: Scattered punctate foci of increased T2 and FLAIR signal are noted in the supratentorial white matter which is a nonspecific finding, but likely represents minimal chronic microvascular ischemia. Parenchyma: No significant volume loss for age. The brain parenchyma is otherwise within normal limits of signal intensity and morphology. Ventricles: Normal caliber and morphology. Skull Base: Hypothalamic and pituitary region are grossly normal. Craniocervical junction is within normal limits. No significant marrow replacement process. Vasculature: Major intracranial arterial structures, and dural venous sinuses show typical flow void, suggesting patency by spin echo criteria. Other: The visualized paranasal sinuses and mastoid air cells are clear. The orbits and extracranial soft tissues are unremarkable. INTRACRANIAL MRA: MRA HEAD: The MRA of the head is within normal limits. There is no evidence of significant stenosis, definite aneurysm, or other vascular abnormality. The major proximal cerebral arteries, distal internal carot id arteries, distal vertebral arteries, and basilar artery are patent. EXTRACRANIAL MRA: Carotid Stenosis: Right Common: No significant stenosis. Right Internal Plaque: No significant plaque formation. Right Internal Carotid Stenosis (% by NASCET Criteria): None Left Common: No significant stenosis. Left Internal Carotid Plaque: Mild atherosclerotic plaque formation. Left Internal Carotid Stenosis (% by NASCET Criteria): 37% diameter stenosis of the proximal left internal carotid artery (4.4/7.0). Cervical Vertebral Arteries: Patency: Bilateral Dominance: Right vertebral artery is dominant. IMPRESSION: 1. No evidence of acute ischemic infarct. Minimal chronic small vessel ischemic changes of the supratentorial white matter. MRI brain without contrast is otherwise unremarkable. 2. MRA the head is within normal limits. 3. Mild atherosclerotic stenosis of the proximal left internal carotid artery as described above. MRA of the neck is otherwise within normal limits. MRA BRAIN W/O Observed: 02/27/2018 Status: F Source: [facility] 9:45 PM HEALTH SYSTEM REPOSITORY Performed at [facility] APPROVED BY: Jerry Singh MD EXAMINATION: MRI BRAIN WITHOUT CONTRAST, MRA NECK WITHOUT CONTRAST, MRA BRAIN WITHOUT CONTRAST HISTORY: Encephalopathy. Status post coronary artery bypass graft surgery on 02/09/2018. TECHNIQUE: Routine noncontrast MRI protocol including diffusion and gradient echo images. Intracranial and extracranial 3D [id number] MRA with 2D multiplanar and 3D maximum intensity projections calculated on the imaging workstation under physician supervision. MQ: [id number] COMPARISON: CT head 02/18/2018. RESULT: BRAIN: Acute Change: There is no evidence of restricted diffusion to suggest an acute infarct. Hemorrhage: No evidence of prior parenchymal hemorrhage on the gradient echo images. Mass Lesion/ Mass Effect: No evidence of an intracranial mass or extra-axial fluid collection. No significant mass effect. Chronic Change: Scattered punctate foci of increased T2 and FLAIR signal are noted in the supratentorial white matter which is a nonspecific finding, but likely represents minimal chronic microvascular ischemia. Parenchyma: No significant volume loss for age. The brain parenchyma is otherwise within normal limits of signal intensity and morphology. Ventricles: Normal caliber and morphology. Skull Base: Hypothalamic and pituitary region are grossly normal. Craniocervical junction is within normal limits. No significant marrow replacement process. Vasculature: Major intracranial arterial structures, and dural venous sinuses show typical flow void, suggesting patency by spin echo criteria. Other: The visualized paranasal sinuses and mastoid air cells are clear. The orbits and extracranial soft tissues are unremarkable. INTRACRANIAL MRA: MRA HEAD: The MRA of the head is within normal limits. There is no evidence of significant stenosis, definite aneurysm, or other vascular abnormality. The major proximal cerebral arteries, distal internal carot id arteries, distal vertebral arteries, and basilar artery are patent. EXTRACRANIAL MRA: Carotid Stenosis: Right Common: No significant stenosis. Right Internal Plaque: No significant plaque formation. Right Internal Carotid Stenosis (% by NASCET Criteria): None Left Common: No significant stenosis. Left Internal Carotid Plaque: Mild atherosclerotic plaque formation. Left Internal Carotid Stenosis (% by NASCET Criteria): 37% diameter stenosis of the proximal left internal carotid artery (4.4/7.0). Cervical Vertebral Arteries: Patency: Bilateral Dominance: Right vertebral artery is dominant. IMPRESSION: 1. No evidence of acute ischemic infarct. Minimal chronic small vessel ischemic changes of the supratentorial white matter. MRI brain without contrast is otherwise unremarkable. 2. MRA the head is within normal limits. 3. Mild atherosclerotic stenosis of the proximal left internal carotid artery as described above. MRA of the neck is otherwise within normal limits. MRA NECK W/O CONTRAST Observed: 02/27/2018 Status: F Source: [facility] 9:45 PM HEALTH SYSTEM REPOSITORY Performed at [facility] APPROVED BY: Jerry Singh MD EXAMINATION: MRI BRAIN WITHOUT CONTRAST, MRA NECK WITHOUT CONTRAST, MRA BRAIN WITHOUT CONTRAST HISTORY: Encephalopathy. Status post coronary artery bypass graft surgery on 02/09/2018. TECHNIQUE: Routine noncontrast MRI protocol including diffusion and gradient echo images. Intracranial and extracranial 3D [id number] MRA with 2D multiplanar and 3D maximum intensity projections calculated on the imaging workstation under physician supervision. MQ: [id number] COMPARISON: CT head 02/18/2018. RESULT: BRAIN: Acute Change: There is no evidence of restricted diffusion to suggest an acute infarct. Hemorrhage: No evidence of prior parenchymal hemorrhage on the gradient echo images. Mass Lesion/ Mass Effect: No evidence of an intracranial mass or extra-axial fluid collection. No significant mass effect. Chronic Change: Scattered punctate foci of increased T2 and FLAIR signal are noted in the supratentorial white matter which is a nonspecific finding, but likely represents minimal chronic microvascular ischemia. Parenchyma: No significant volume loss for age. The brain parenchyma is otherwise within normal limits of signal intensity and morphology. Ventricles: Normal caliber and morphology. Skull Base: Hypothalamic and pituitary region are grossly normal. Craniocervical junction is within normal limits. No significant marrow replacement process. Vasculature: Major intracranial arterial structures, and dural venous sinuses show typical flow void, suggesting patency by spin echo criteria. Other: The visualized paranasal sinuses and mastoid air cells are clear. The orbits and extracranial soft tissues are unremarkable. INTRACRANIAL MRA: MRA HEAD: The MRA of the head is within normal limits. There is no evidence of significant stenosis, definite aneurysm, or other vascular abnormality. The major proximal cerebral arteries, distal internal carot id arteries, distal vertebral arteries, and basilar artery are patent. EXTRACRANIAL MRA: Carotid Stenosis: Right Common: No significant stenosis. Right Internal Plaque: No significant plaque formation. Right Internal Carotid Stenosis (% by NASCET Criteria): None Left Common: No significant stenosis. Left Internal Carotid Plaque: Mild atherosclerotic plaque formation. Left Internal Carotid Stenosis (% by NASCET Criteria): 37% diameter stenosis of the proximal left internal carotid artery (4.4/7.0). Cervical Vertebral Arteries: Patency: Bilateral Dominance: Right vertebral artery is dominant. IMPRESSION: 1. No evidence of acute ischemic infarct. Minimal chronic small vessel ischemic changes of the supratentorial white matter. MRI brain without contrast is otherwise unremarkable. 2. MRA the head is within normal limits. 3. Mild atherosclerotic stenosis of the proximal left internal carotid artery as described above. MRA of the neck is otherwise within normal limits. CASE MANAGEM Observed: 02/27/2018 Status: COMPLETED Source: [place] 4:46 PM [facility] REPOSITORY HNO ID: [id number] Author: Ale Johnson) RAINA Kye Service: (none) Author Type: Registered Nurse Type: Care Mgt Progress Note Filed: 02/27/2018 4:48 PM Note Text: CARE MANAGEMENT PROGRESS NOTE SERVICE DATE: 02/27/2018 SERVICE TIME: 4:46 PM LOS: 20 days Needs Prior to Discharge: Accepting Facility;Discharge Transportation Pt intubated s/p trach 02/22 and peg , remains on precedex gtt, awaiting MRI this evening. [facility] updated-await acceptance. Cont to follow SIGNATURE: Ale Key RN PATIENT NAME: Jeffrey Cullen DATE: February 27, 2018 TIME: 4:46 PM PAGER/CONTACT #: [phone] PROGRESS Observed: 02/27/2018 Status: COMPLETED Source: [place] 1:16 PM CLIN[facility] OTHER [facility]AMPUS REPOSITORY HNO ID: [id number] Author: Ten Gonsales Service: Pulmonary Disease Author Type: Physician Type: Progress Notes Filed: 02/27/2018 4:52 PM Note Text: MICU - PROGRESS NOTE SERVICE DATE: 02/27/2018 SERVICE TIME: 1:16 PM Admission Date: 02/07/2018 AGE: [age] year old LOS: 20 days REASON FOR ICU ADMISSION: Respiratory Failure Objective Brief hypotension after meds, weak overall lesley J fube feedings Stable fi02 RVR better now Trach ok No past medical history on file. PAST SURGICAL HISTORY Procedure Laterality Date - ORTHOPEDICS SURGERY HX - REPAIR ING HERNIA,5+Y/O,REDUCIBL 1990 Hernia repair, inguinal,left Social History Marital status: Single Spouse name: Years of education: Number of children: Social History Main Topics Smoking status: Current Every Day Smoker Packs/day: 2.00 Years: 25.00 Types: Cigarettes Alcohol use: No Drug use: No Sexual activity: Yes Partners with: Female Other Topics Concern Service No Blood Transfusions No Caffeine Concern No Occupational Exposure No Hobby Hazards No Sleep Concern No Stress Concern No Weight Concern No Special Diet No Back Care No Exercise No Bike Helmet No Seat Belt No Self-Exams No VITAL SIGNS (last 24hrs min/max): Temp Av.4 ?C (97.6 ?F) Min: 36.2 ?C (97.2 ?F) Max: 36.9 ?C (98.4 ?F) Pulse Av.2 Min: 69 Max: 139 No Data Recorded Cuff BP Min: 87/48 Max: 146/69 Pain Score: 6/10 Vital signs reviewed. BP 87/48 Pulse 73 Temp (Src) 97.2 (Temporal Artery) Resp 15 Ht 5' 10.984 (1.80m) Wt 242 lb 11.6 oz (110.1kg) SpO2 96% BMI 33.87 kg/(m2). Temp (24hrs), Av.4 ?C (97.6 ?F), Min:36.2 ?C (97.2 ?F), Max:36.9 ?C (98.4 ?F) NET FLUID BALANCE Intake/Output Summary (Last 24 hours) at 02/27/18 1316 Last data filed at 02/27/18 1100 Gross per 24 hour Intake 2094.4 ml Output 937 ml Net 1157.4 ml MEDICATIONS Current Facility-Administered Medications: metoclopramide HCl 5 mg injection (REGLAN) 5 mg INTRAVENOUS q 6 H furosemide 40 mg tab(s) (LASIX) 40 mg ORAL DAILY QUEtiapine 50 mg tablet (SEROquel) 50 mg ORAL TID morphine 2 mg injection 2 mg INTRAVENOUS q 2 H PRN rocuronium 50 mg injection (ZEMURON) 50 mg INTRAVENOUS ONCE LORazepam 4 mg injection (ATIVAN) 4 mg INTRAVENOUS ONCE ipratropium-albuterol 3 mL nebulizer solution (DUONEB) 3 mL INHALATION QID dexmedetomidine 400 mcg in NaCl 0.9% 100 mL (PRECEDEX) 0.2- 0.7 mcg/kg/hr INTRAVENOUS CONTINUOUS aspirin 81 mg chewable tab(s) 81 mg ORAL DAILY apixaban 5 mg tab(s) (ELIQUIS) 5 mg ORAL BID famotidine 20 mg tab(s) (PEPCID) 20 mg ORAL BID metoprolol tartrate (short acting) 100 mg tab(s) (LOPRESSOR) 100 mg ORAL q 8 H 0.9% NaCl 20 mL 20 mL INTRAVENOUS PRN 0.9% NaCl 10 mL 10 mL INTRAVENOUS q 12 H 0.9% NaCl 20 mL 20 mL INTRAVENOUS PRN nystatin 5 mL oral liquid (MYCOSTATIN) 5 mL ORAL QID LORazepam 2 mg injection (ATIVAN) 2 mg INTRAVENOUS q 4 H PRN bisacodyl 10 mg suppository (DULCOLAX) 10 mg RECTAL DAILY PRN polyethylene glycol 3350 17 g packet (MIRALAX, GLYCOLAX) 17 g ORAL DAILY senna-docusate 8.6-50 mg 1 tablet (SENNA-S) 1 tablet ORAL BID pill splitter (patient-specific) 1 Each Miscell. (Med.Supl.;Non- Drugs) PRN Chlorhexidine Gluconate 0.12 % 15 mL (PERIDEX) 15 mL ORAL q 12 H budesonide 0.5 mg/2 mL 1 mg (PULMICORT) 1 mg INHALATION BID acetaminophen 650 mg tab(s) (TYLENOL) 650 mg ORAL q 6 H PRN potassium chloride iv piggyback 20 mEq in sterile water 100 mL 20 mEq INTRAVENOUS PRN magnesium sulfate in water 2 g in sterile water 50 ml 2 g INTRAVENOUS PRN(NO DISPENSE) albuterol 2.5 mg /3 mL (0.083 %) 2.5 mg (PROVENTIL) 2.5 mg INHALATION q 2 H PRN calcium chloride 1 g in D5W 100 mL 1 g INTRAVENOUS PRN(NO DISPENSE) oxyCODONE-acetaminophen 5-325 mg 1-2 tablet (PERCOCET) 1-2 tablet ORAL q 4 H PRN ondansetron (PF) 4 mg injection (ZOFRAN) 4 mg INTRAVENOUS q 6 H PRN atorvastatin 40 mg tab(s) (LIPITOR) 40 mg ORAL AT BEDTIME Lines, Drains, and Airways Line Central Line Double Lumen 02/17/18 1310 Peripherally Inserted (PICC) Right Arm 5.0 Vietnamese 10 days Drain Indwelling Urinary Catheter 02/09/18 0838 Temperature Monitoring 16 Fr 18 days GI Feed/Drain 02/22/18 1336 Gastrostomy-Jejunostomy (G-J) Abdomen 18 Fr 4 days Airway Airway Tracheostomy 02/22/18 5 days PHYSICAL EXAMINATION: VITAL SIGNS: As documented General appearance: Well-developed well-nourished. Good hygiene. Trach #6 xlt Skin: Normal turgor. mild pallorous. Not diaphoretic. No jaundice. Sternotomy and PEG scars ENT: No palpable lymphadenopathy. trach neck scar. No thyromegaly. No macroglossia. Supple neck Heme/Lymph: No significant neck adenopathy. Negative JVD on mild incline supine Lungs: Clear to auscultation. Decent inspiratory capacity. No overt wheeze. No significant hyperinflation. No fibrotic rales. No pleural rub. No dyspnea at rest. No effusion Heart: Regular rate and rhythm. recent low bp after morphine and diltiazem. Normal heart tones. No significant murmur. No peripheral edema. Normal P2 . Good perfusion distally radial. ABD: Abdomen soft, non-tender. Bowel sounds normal. No masses, organomegaly. PEGJ Musculoskeletal: Extremities normal. No deformities, no edema, or skin discoloration.weak MATHEW per RN Neuro:blunted; PASSIVE , mathew per rn earlier; no verbal attempt Respiratory/Nursing Documentation: O2 Therapy: Ventilator (02/27/18 1222) Invasive Ventilator Mode: Pressure Regulated Volume Control (02/27/18 1222) Set Ventilator Respiratory Rate (BPM): 15 (02/27/18 1222) Total Respiratory Rate (BPM): 15 (02/27/18 122) Tidal Volume Set (mL): 550 (02/27/18 122) Exhaled Tidal Volume (mL): 876 (02/27/18 122) Minute Volume (L): 9.4 (02/27/18 122) Peak Inspiratory Pressure (cm H2O): 12 (02/27/18 122) PEEP/CPAP (cm H2O): 12 (02/27/18 122) HEMODYNAMIC DATA: reviewed NUTRITION: Enteral Feeds: VENT: WEANS: SEDATION: dexmed; seroquel; morphine DRIPS: PRESSORS: none CULTURE update: CXR FINDINGS: 02/25 Vague LEft perihilar infiltrate; basal opac OTHER IMAGING: DATA: Diagnostic tests reviewed for today's visit: Most recent labs and imaging results REVIEWED. LABS: Recent Labs 02/27/18 0400 WBC 8.62 RBC 3.26* HB 10.3* HCT 31.8* MCV 97.5* PLT 277 GLUC 92 BUN 14 CREAT 0.57* NA 142 K 3.8 CHLOR 110* CO2 27 CA 8.3* ABG: Invalid input(s): [id number] Assessment/Plan PROBLEMS: Patient Active Hospital Problem List: NSTEMI (non-ST elevated myocardial infarction) ([facility]) (02/07/2018) NSVT (nonsustained ventricular tachycardia) ([facility]) (02/08/2018) Nicotine use disorder, F17.2 (02/09/2018) Malnutrition of moderate degree ([facility]) (02/20/2018) acute respiratory failure with trach Met encephalopathy afib with rvr Transient hypotension cabg day 18 Copd FEV1 69% preop HCAP reported 02/11 recent EColi/Kleb, normal wbc Mild anemia after prolonged icu course CRITICAL CARE PLAN: 1. Mild inc seroquel; lower dexmed with labile bp 2. Noted request for single paralytic with MRI to get good pictures 3. Post pyloric TF 4. Tried psv 10/5 weans, did ok 5. Discussed with pharm d 6. cxr and vbg in am, last 02/25 Critical Care Documentation: The patient has the following organ/system impairment(s): Complex life-threatening medical problem(s), Encephalopathy and Respiratory failure (Acute, with Hypoxemia) This patient has a high probability of sudden, clinically significant deterioration, which requires the highest level of physician preparedness to intervene urgently. I managed/supervised life or organ supporting interventions that required frequent physician assessment. I devoted my full attention to the direct care of this patient for the amount of time indicated below. Time I spent with family or surrogate(s) is included only if the patient was incapable of providing the necessary information or participating in medical decision making. Time devoted to teaching is not included. Patient Updated No Family Updated No Discussed with Staff Yes Time spent providing critical care services: 35 minutes excluding billable procedures. SIGNATURE: Ten Gonsales MD PATIENT NAME: Jeffrey Cullen DATE: February 27, 2018 TIME: 1:16 PM Add: Discussed with neuro MRI no contrast, no real suspicion for meningtitis or mass lesion Ten Gonsales MD 4:52 PM PROGRESS Observed: 02/27/2018 Status: COMPLETED Source: [place] 12:32 PM CLINIC OTHER CAMPUS REPOSITORY HNO ID: [id number] Author: Clementine Owen Service: Cardiovascular Surgery Author Type: Nurse Practitioner Type: Progress Notes Filed: 02/27/2018 4:06 PM Note Text: CARDIOTHORACIC SURGERY POSTOP PROGRESS NOTE SERVICE DATE: 02/27/2018 SERVICE TIME: 12:32 pm Subjective S/P SURGERY: CABGx3 POD#18 LOS: 20 INTERVAL EVENTS / PERTINENT ROS: Still on Precedex and Seroquel. Objective Admission Weight: 104.3 kg (229 lb 15 oz) BP (!) 87/48 Pulse 102 Temp 36.2 ?C (97.2 ?F) Resp 21 Ht 180.3 cm (5' 10.98) Wt 110.1 kg (242 lb 11.6 oz) SpO2 96% BMI 33.87 kg/m2 Body surface area is 2.35 meters squared. Min/Max/Average Temperature AND Blood Pressure: Temp (24hrs), Av.4 ?C (97.6 ?F), Min:36.2 ?C (97.2 ?F), Max:36.9 ?C (98.4 ?F) Systolic (24hrs), Av , Min:87 , Max:146 Diastolic (24hrs), Av, Min:48, Max:87 Intake/Output Summary (Last 24 hours) at 02/27/18 1420 Last data filed at 02/27/18 1300 Gross per 24 hour Intake 1994.4 ml Output 1034 ml Net 960.4 ml TELEMETRY: normal sinus rhythm; intermittent afib/aflutter PHYSICAL EXAM: General Appearance: sedated on vent Skin: Midsternal incision dry AND intact. Lungs: decreased breath sounds and respiratory effort: normal Heart: regular rhythm and S1, S2 normal Abdomen: soft, non-tender and bowel sounds present Genitourinary: High intact, urine color is clear yellow Extremities: edema: 1+ G-J tube intact Lines, Drains, and Airways Line Central Line Double Lumen 02/17/18 1310 Peripherally Inserted (PICC) Right Arm 5.0 Vietnamese 10 days Drain Indwelling Urinary Catheter 02/09/18 0838 Temperature Monitoring 16 Fr 18 days GI Feed/Drain 02/22/18 1336 Gastrostomy-Jejunostomy (G-J) Abdomen 18 Fr 5 days Airway Airway Tracheostomy 02/22/18 5 days DATA: Diagnostic tests reviewed for today's visit: Recent Labs 02/27/18 0400 02/26/18 1010 02/26/18 0410 02/25/18 0531 RBC 3.26* -- 3.31* 3.15* WBC 8.62 -- 8.86 10.26* HB 10.3* -- 10.6* 10.1* HCT 31.8* -- 32.7* 31.4* PLT 277 -- 249 244 NA 142 140 -- 145 K 3.8 3.4* -- 3.7 CHLOR 110* 110* -- 114* CO2 27 26 -- 26 BUN 14 20* -- 22* CREAT 0.57* 0.56* -- 0.62* GLUC 92 119* -- 111* CA 8.3* 8.0* -- 8.2* ANION 9 7* -- 9 Assessment/Plan Acute NSTEMI s/p CABG x 3 -POD#18 -c/w ASA, statin, BB ?? Acute hypoxic AND hypercapneic respiratory failure 2/2 severe COPD -s/p tracheostomy -Vent wean per ICU team ?? Paroxysmal Afib/Aflutter -c/w Metoprolol. Increase PO Diltiazem to 60mg q6h for better rate control -c/w Eliquis for OAC ? Acute encephalopathy -Needs MRI/MRA brain for diagnosis AND prognosis -Will need paralytic for procedure; discuss with ICU team. Oral Thrush -Resolving; c/w nystatin ?? Volume Overload -Add lasix 40mg PO daily -High for strict IANDO ?? Moderate Protein-Calorie Malnutrition -s/p G-J tube -c/w tube feeds. -Residuals are lower now so will decrease Reglan to 5mg q6h and then dc if residuals remain low. ?? DVT ppx -SCDs AND Eliquis Tests/Labs Ordered: 1. BMP 2. CBC SIGNATURE: Clementine Owen APRN.[employer] PATIENT NAME: Jeffrey Cullen DATE: February 27, 2018 TIME: 2:20 PM PAGER/CONTACT #: [phone] NUTRITION Observed: 02/27/2018 Status: COMPLETED Source: [place] 9:35 AM CLINIC OTHER CAMPUS REPOSITORY HNO ID: [id number] Author: Sandra Alvarado) TREASURE Almaguer Service: Nutrition Therapy Author Type: Registered Dietitian Type: Nutrition Filed: 02/27/2018 1:45 PM Note Text: NUTRITION THERAPY PROGRESS NOTE SERVICE DATE: 02/27/2018 SERVICE TIME: 9:35 AM RECOMMENDED DIAGNOSIS: MODERATE PROTEIN-CALORIE MALNUTRITION per Registered Dietitian on 02/20/18 NUTRITION CARE PLAN Problem, Etiology and Signs/Symptoms: Suboptimal oral intake related to respiratory status?as evidenced by NPO with tube feeding,?vent support, and moderate muscle loss. Intervention: Impact Peptide at goal rate 56 ml/hr to provide via PEG-J tube 1344 ml product - 2016 kcal, 126.3 gm protein, and 1034.9 ml free water. Flush at 200 ml 6 times per day. (Fluid volume with TF over 24 hours - 2234 ml) Coordination of Care: nursing Monitor and Evaluation: Goal: Meet >75% of estimated needs Monitor fluid/electrolyte balance Monitor labs, I/Os, vital signs, weight Monitor tolerance to tube feeding Discharge Nutrition Recommendations: Enteral/Tube feeding: Impact Peptide at goal rate 56 ml/hr Flush 200 ml 6 times per day. Chart reviewed for follow-up from tube feeding Per HPI: 67 year old male patient with no known PMH other than long history of smoking ( 2packs a day for more than 30 years) Earlier 02/07/18?he was sitting and suddenly started having substernal chest pain, pain is intermittent with no radiation, he felt nauseas but no vomiting and no diaphoresis.This pain kept coming so he went to the ER. Underwent LHC on 02/08/18 showed need for CABG, underwent CABG on 02/09/18. Chest tubed pulled 02/11. ?Remains on vent support. ?Noted residuals and tube feeding held at present. ?Started on Reglan daily from PRN. 02/16/18 Patient remains intubated this AM. No significant residuals noted greater than 100 cc. Toleration of tube feeding improving. 02/20/18 Remains on vent support, tube feeding held at present for residual 280 ml. ?PICC placed on 02/17. ?Noted plan for trach and PEG, if unable to extubate soon. Met with RN reports residual decreasing with plans to restart TF. ?BM 02/16, RN aware, reported likely to give dulcolax suppository today. ? Interval History: Continues on tube feeding and vent support, awaiting transfer to [facility]. ACTIVE PROBLEM LIST Inguinal Hernia Without Mention of Obstruction Or Gangrene, Unilateral Or Unspecified, (Not Specified As Recurrent) Nstemi (Non-St Elevated Myocardial Infarction) ([facility]) Nsvt (Nonsustained Ventricular Tachycardia) ([facility]) Nicotine use disorder, F17.2 Malnutrition of Moderate Degree ([facility]) No past medical history on file. PAST SURGICAL HISTORY Procedure Laterality Date - ORTHOPEDICS SURGERY HX - REPAIR ING HERNIA,5+Y/O,REDUCIBL 1989 Hernia repair, inguinal,left Present Diet Order: NPO and Tube Feeding Impact Peptide at goal rate as noted above. Nutritional Intake: >75% estimated energy needs over the past 4 day(s). On 02/20?>75% estimated energy needs over the past 5?day(s), noted TF held today for residual 280 ml. Noted was held on 02/13 for high residual 480 ml and then restarted on 02/15. ?Was NPO 4 days prior to TF start. ? Continues with distended and hypoactive bowel sounds Admission Weight: 104.3 kg (229 lb 15 oz) Current Weight: 110.1 kg (242 lb 11.6 oz) Body mass index is 33.87 kg/(m2). class 1 obesity Weight is up 5.8 kg since admission, indicating a 5.3% gain. Noted edema generalized 1+ and bilateral lower extremities 1+ Last 12 Encounter Wt Readings: Date: Wt: 02/07/2018 110.1 kg (242 lb 11.6 oz) 02/07/2018 104.3 kg (230 lb) 12/04/2007 100.2 kg (221 lb) ALLERGIES No Known Allergies Current Facility-Administered Medications: dexmedetomidine 400 mcg in NaCl 0.9% 100 mL (PRECEDEX) 0.2- 0.7 mcg/kg/hr INTRAVENOUS CONTINUOUS aspirin 81 mg chewable tab(s) 81 mg ORAL DAILY apixaban 5 mg tab(s) (ELIQUIS) 5 mg ORAL BID famotidine 20 mg tab(s) (PEPCID) 20 mg ORAL BID QUEtiapine 50 mg tablet (SEROquel) 50 mg ORAL BID metoprolol tartrate (short acting) 100 mg tab(s) (LOPRESSOR) 100 mg ORAL q 8 H diltiazem 30 mg tab(s) (CARDIZEM) 30 mg NASOGASTRIC q 6 H 0.9% NaCl 20 mL 20 mL INTRAVENOUS PRN 0.9% NaCl 10 mL 10 mL INTRAVENOUS q 12 H 0.9% NaCl 20 mL 20 mL INTRAVENOUS PRN nystatin 5 mL oral liquid (MYCOSTATIN) 5 mL ORAL QID metoclopramide HCl 10 mg injection (REGLAN) 10 mg INTRAVENOUS q 6 H LORazepam 2 mg injection (ATIVAN) 2 mg INTRAVENOUS q 4 H PRN dextrose 40 % 15 g 15 g ORAL PRN Or glucagon 1 mg injection (GLUCAGEN) 1 mg INTRAMUSCULAR PRN Or dextrose 50% in water 25 mL syringe 12.5 g INTRAVENOUS PRN insulin regular human injection (short acting) (NovoLIN R,HumuLIN R) SUBCUTANEOUS q 6 H bisacodyl 10 mg suppository (DULCOLAX) 10 mg RECTAL DAILY PRN polyethylene glycol 3350 17 g packet (MIRALAX, GLYCOLAX) 17 g ORAL DAILY senna-docusate 8.6-50 mg 1 tablet (SENNA-S) 1 tablet ORAL BID pill splitter (patient-specific) 1 Each Miscell. (Med.Supl.;Non- Drugs) PRN Chlorhexidine Gluconate 0.12 % 15 mL (PERIDEX) 15 mL ORAL q 12 H budesonide 0.5 mg/2 mL 1 mg (PULMICORT) 1 mg INHALATION BID acetaminophen 650 mg tab(s) (TYLENOL) 650 mg ORAL q 6 H PRN dextrose 50% in water 25 mL syringe 12.5 g INTRAVENOUS PRN potassium chloride iv piggyback 20 mEq in sterile water 100 mL 20 mEq INTRAVENOUS PRN magnesium sulfate in water 2 g in sterile water 50 ml 2 g INTRAVENOUS PRN(NO DISPENSE) albuterol 2.5 mg /3 mL (0.083 %) 2.5 mg (PROVENTIL) 2.5 mg INHALATION q 2 H PRN calcium chloride 1 g in D5W 100 mL 1 g INTRAVENOUS PRN(NO DISPENSE) oxyCODONE-acetaminophen 5-325 mg 1-2 tablet (PERCOCET) 1-2 tablet ORAL q 4 H PRN morphine 2-4 mg injection 2-4 mg INTRAVENOUS q 1 H PRN ondansetron (PF) 4 mg injection (ZOFRAN) 4 mg INTRAVENOUS q 6 H PRN ipratropium-albuterol 3 mL nebulizer solution (DUONEB) 3 mL INHALATION q 4 H atorvastatin 40 mg tab(s) (LIPITOR) 40 mg ORAL AT BEDTIME Surgical Incision 02/09/18 Chest - Midsternal (Active) Dressing Status None: Open to Air 02/27/2018 8:12 AM Frequency of Dressing Change As Needed 02/27/2018 8:12 AM Incision Closures Topical Skin Adhesive 02/27/2018 8:12 AM Drainage Description None 02/27/2018 8:12 AM Drainage Amount None 02/27/2018 8:12 AM Edges Intact 02/27/2018 8:12 AM Hematoma No 02/27/2018 8:12 AM Number of days:18 Surgical Incision 02/09/18 Leg - Left (Active) Dressing Status None: Open to Air 02/26/2018 7:46 PM Frequency of Dressing Change As Needed 02/27/2018 8:12 AM Incision Closures Topical Skin Adhesive;None 02/27/2018 8:12 AM Drainage Description None 02/27/2018 8:12 AM Drainage Amount None 02/27/2018 8:12 AM Edges Intact 02/27/2018 8:12 AM Hematoma No 02/27/2018 8:12 AM Number of days:18 MNT Billing Type: Re-assess/15 min 3 units SIGNATURE: Sandra Almaguer RD, LD PATIENT NAME: Jeffrey Cullen DATE: February 27, 2018 TIME: 9:35 AM PAGER: [phone] PROGRESS Observed: 02/27/2018 Status: COMPLETED Source: [place] 9:09 AM CLINIC OTHER CAMPUS REPOSITORY HNO ID: [id number] Author: Krystal Valdez) Paul Service: Critical Care Author Type: Nurse Specialist Type: Progress Notes Filed: 02/27/2018 9:20 AM Note Text: MICU - PROGRESS NOTE SERVICE DATE: 02/27/2018 SERVICE TIME: 9:09 AM Admission Date: 02/07/2018 AGE: [age] year old LOS: 20 days Subjective REASON FOR ICU ADMISSION:Respiratory failure (with Hypoxemia) US/fluoroscopic guided percutaneous gastrojejunostomy tube placement,sp trach Objective PROBLEMS: ACTIVE PROBLEM LIST Inguinal Hernia Without Mention of Obstruction Or Gangrene, Unilateral Or Unspecified, (Not Specified As Recurrent) Nstemi (Non-St Elevated Myocardial Infarction) ([facility]) Nsvt (Nonsustained Ventricular Tachycardia) ([facility]) Nicotine use disorder, F17.2 Malnutrition of Moderate Degree ([facility]) No past medical history on file. PAST SURGICAL HISTORY Procedure Laterality Date - ORTHOPEDICS SURGERY HX - REPAIR ING HERNIA,5+Y/O,REDUCIBL 1990 Hernia repair, inguinal,left Social History Marital status: Single Spouse name: Years of education: Number of children: Social History Main Topics Smoking status: Current Every Day Smoker Packs/day: 2.00 Years: 25.00 Types: Cigarettes Alcohol use: No Drug use: No Sexual activity: Yes Partners with: Female Other Topics Concern Service No Blood Transfusions No Caffeine Concern No Occupational Exposure No Hobby Hazards No Sleep Concern No Stress Concern No Weight Concern No Special Diet No Back Care No Exercise No Bike Helmet No Seat Belt No Self-Exams No VITAL SIGNS (last 24hrs min/max): Temp Av.6 ?C (97.8 ?F) Min: 36.2 ?C (97.2 ?F) Max: 36.9 ?C (98.4 ?F) Pulse Av.3 Min: 69 Max: 118 No Data Recorded Cuff BP Min: 94/56 Max: 146/69 Pain Score: 6/10 Vital signs reviewed. BP 141/87 Pulse 98 Temp (Src) 97.2 (Temporal Artery) Resp 16 Ht 5' 10.984 (1.80m) Wt 242 lb 11.6 oz (110.1kg) SpO2 96% BMI 33.87 kg/(m2). Temp (24hrs), Av.6 ?C (97.8 ?F), Min:36.2 ?C (97.2 ?F), Max:36.9 ?C (98.4 ?F) NET FLUID BALANCE Intake/Output Summary (Last 24 hours) at 02/27/18 0909 Last data filed at 02/27/18 0812 Gross per 24 hour Intake 1674 ml Output 932 ml Net 742 ml MEDICATIONS Current Facility-Administered Medications: dexmedetomidine 400 mcg in NaCl 0.9% 100 mL (PRECEDEX) 0.2- 0.7 mcg/kg/hr INTRAVENOUS CONTINUOUS aspirin 81 mg chewable tab(s) 81 mg ORAL DAILY apixaban 5 mg tab(s) (ELIQUIS) 5 mg ORAL BID famotidine 20 mg tab(s) (PEPCID) 20 mg ORAL BID QUEtiapine 50 mg tablet (SEROquel) 50 mg ORAL BID metoprolol tartrate (short acting) 100 mg tab(s) (LOPRESSOR) 100 mg ORAL q 8 H diltiazem 30 mg tab(s) (CARDIZEM) 30 mg NASOGASTRIC q 6 H 0.9% NaCl 20 mL 20 mL INTRAVENOUS PRN 0.9% NaCl 10 mL 10 mL INTRAVENOUS q 12 H 0.9% NaCl 20 mL 20 mL INTRAVENOUS PRN nystatin 5 mL oral liquid (MYCOSTATIN) 5 mL ORAL QID metoclopramide HCl 10 mg injection (REGLAN) 10 mg INTRAVENOUS q 6 H LORazepam 2 mg injection (ATIVAN) 2 mg INTRAVENOUS q 4 H PRN dextrose 40 % 15 g 15 g ORAL PRN Or glucagon 1 mg injection (GLUCAGEN) 1 mg INTRAMUSCULAR PRN Or dextrose 50% in water 25 mL syringe 12.5 g INTRAVENOUS PRN insulin regular human injection (short acting) (NovoLIN R,HumuLIN R) SUBCUTANEOUS q 6 H bisacodyl 10 mg suppository (DULCOLAX) 10 mg RECTAL DAILY PRN polyethylene glycol 3350 17 g packet (MIRALAX, GLYCOLAX) 17 g ORAL DAILY senna-docusate 8.6-50 mg 1 tablet (SENNA-S) 1 tablet ORAL BID pill splitter (patient-specific) 1 Each Miscell. (Med.Supl.;Non- Drugs) PRN Chlorhexidine Gluconate 0.12 % 15 mL (PERIDEX) 15 mL ORAL q 12 H budesonide 0.5 mg/2 mL 1 mg (PULMICORT) 1 mg INHALATION BID acetaminophen 650 mg tab(s) (TYLENOL) 650 mg ORAL q 6 H PRN dextrose 50% in water 25 mL syringe 12.5 g INTRAVENOUS PRN potassium chloride iv piggyback 20 mEq in sterile water 100 mL 20 mEq INTRAVENOUS PRN magnesium sulfate in water 2 g in sterile water 50 ml 2 g INTRAVENOUS PRN(NO DISPENSE) albuterol 2.5 mg /3 mL (0.083 %) 2.5 mg (PROVENTIL) 2.5 mg INHALATION q 2 H PRN calcium chloride 1 g in D5W 100 mL 1 g INTRAVENOUS PRN(NO DISPENSE) oxyCODONE-acetaminophen 5-325 mg 1-2 tablet (PERCOCET) 1-2 tablet ORAL q 4 H PRN morphine 2-4 mg injection 2-4 mg INTRAVENOUS q 1 H PRN ondansetron (PF) 4 mg injection (ZOFRAN) 4 mg INTRAVENOUS q 6 H PRN ipratropium-albuterol 3 mL nebulizer solution (DUONEB) 3 mL INHALATION q 4 H atorvastatin 40 mg tab(s) (LIPITOR) 40 mg ORAL AT BEDTIME Lines, Drains, and Airways Line Central Line Double Lumen 02/17/18 1310 Peripherally Inserted (PICC) Right Arm 5.0 Vietnamese 9 days Drain Indwelling Urinary Catheter 02/09/18 0838 Temperature Monitoring 16 Fr 18 days GI Feed/Drain 02/22/18 1336 Gastrostomy-Jejunostomy (G-J) Abdomen 18 Fr 4 days Airway Airway Tracheostomy 02/22/18 5 days PHYSICAL EXAM PERFORMED: Cardiovascular: Irregular rhythm Respiratory: Reduced breath sounds bilat %FIO2 Min: 21 Max: 40 Abdomen: Soft Extremities: Edema- Yes Generalized edema Neurologic: Sedated Does not follow requests Respiratory/Nursing Documentation: O2 Therapy: Ventilator (02/27/18801) Invasive Ventilator Mode: Pressure Regulated Volume Control (02/27/18801) Set Ventilator Respiratory Rate (BPM): 15 (02/27/18801) Total Respiratory Rate (BPM): 38 (02/27/18801) Tidal Volume Set (mL): 550 (02/27/18801) Exhaled Tidal Volume (mL): 659 (02/27/18801) Minute Volume (L): 21.7 (02/27/18801) Peak Inspiratory Pressure (cm H2O): 10 (02/27/18801) PEEP/CPAP (cm H2O): 5 (02/27/18801) HEMODYNAMIC DATA: Reviewed NUTRITION: Enteral Feeds: Yes Full Liquid and Impact peptide DATA: Diagnostic tests reviewed for today's visit, films/specimens were personally reviewed by me: Most recent labs and imaging results. LABS: Recent Labs 02/27/18 0400 WBC 8.62 RBC 3.26* HB 10.3* HCT 31.8* MCV 97.5* PLT 277 GLUC 92 BUN 14 CREAT 0.57* NA 142 K 3.8 CHLOR 110* CO2 27 CA 8.3* Assessment/Plan IMPRESSION: Critical Care Documentation: The patient has the following organ/system impairment(s): ? 1.sp CABG POD 18 ? 2. Acute hypoxic andd hypercapneic respiratory failure 2/2 severe COPD and Klebsiella and E.Coli PNA/completed course of Ceftriaxone ? 3.Atrial fib/ continueEliquis -PO cardizem 30mg q 6hrs ? ? 4. Oral thrush-nystatin ? 5. Volume overload-lasix 40mg po BID ? 6. tube feedings for nutritional support-Impact peptide ? 7. [facility] eval in progress ? 8.hypernatremia Improving 9. Agitation continues-sedation with ativan, precedex , and percocet This patient has a high probability of sudden, clinically significant deterioration, which requires the highest level of physician preparedness to intervene urgently. I managed/supervised life or organ supporting interventions that required frequent physician assessment. I devoted my full attention to the direct care of this patient for the amount of time indicated below. Time I spent with family or surrogate(s) is included only if the patient was incapable of providing the necessary information or participating in medical decision making. Time devoted to teaching is not included. Discussed with staff/patient/family Time spent providing critical care services: 40 minutes excluding procedures. SIGNATURE: Krystal Miller APRN.CNS PATIENT NAME: Jeffrey Cullen DATE: February 27, 2018 TIME: 9:09 AM GLUCOSE METER Collected: 02/27/2018 Status: F Source: [facility] 5:50 AM HEALTH SYSTEM REPOSITORY TYPE CODE TESTS RESULT OUT OF REFERENCE UNITS RANGE LAB GLUBL(LOINC 70-99 mg/dL ) Glucose Meter 98 Result Comment: RN NOTIFIED Performed By: #### GLMET #### [place] [address] HEMOGRAM Collected: 02/27/2018 Status: F Source: [facility] 4:00 AM HEALTH SYSTEM REPOSITORY TYPE CODE TESTS RESULT OUT OF REFERENCE UNITS RANGE LAB WBC(LOINC) 4.23-9.07 thou/cmm WBC 8.62 LAB RBC(LOINC) 4.63-6.08 mil/cmm Low RBC 3.26 LAB HGB(LOINC) 13.7-17.5 g/dL Low Hgb 10.3 LAB HCT(LOINC) 40.1-51.0 % Low Hct 31.8 LAB MCV(LOINC) 83.2-95.6 fl High MCV 97.5 LAB MCH(LOINC) 25.7-32.2 pg MCH 31.6 LAB MCHC(LOINC) 32.3-36.5 % MCHC 32.4 LAB RDW(LOINC) 11.6-14.4 % RDW 13.6 LAB RDWSD(LOINC 36.1-45.8 fl ) High RDW SD 48.1 LAB PLT(LOINC) 141-365 thou/cmm Platelet 277 LAB MPV(LOINC) 8.7-12.0 fl MPV 10.5 Performed By: #### CBC1 #### [place] [address] BASIC PANEL Collected: 02/27/2018 Status: F Source: [facility] 4:00 AM HEALTH SYSTEM REPOSITORY TYPE CODE TESTS RESULT OUT OF REFERENCE UNITS RANGE LAB NA(LOINC) 136-145 mEq/L Sodium Blood 142 LAB K(LOINC) 3.5-5.1 mEq/L Potassium Blood 3.8 LAB CL(LOINC) 98-107 mEq/L Chloride High Blood 110 LAB CO2(LOINC) 21-32 mEq/L CO2 Blood 27 LAB GLU(LOINC) 70-99 mg/dL Glucose Blood 92 LAB BUN(LOINC) 7-18 mg/dL BUN Blood 14 LAB CREA(LOINC 0.67-1.17 mg/dL ) Low Creatinine Blood 0.57 LAB CA(LOINC) 8.5-10.1 mg/dL Low Calcium Blood 8.3 LAB ANGAP(LOIN 8-16 C) Anion Gap 9 Performed By: #### P8 #### [place] [address] MDRD GFR Collected: 02/27/2018 Status: F Source: [facility] 4:00 AM HEALTH SYSTEM REPOSITORY TYPE CODE TESTS RESULT OUT OF RANGE REFERENCE UNITS LAB GFRFN(LOINC >60mL/min/1.73m ) 2 eGFR >60 Result Comment: If the patient is , multiply the result by 1.210. Performed By: #### GFR #### [place] [address] GLUCOSE METER Collected: 02/26/2018 Status: F Source: [facility] 6:49 PM HEALTH SYSTEM REPOSITORY TYPE CODE TESTS RESULT OUT OF REFERENCE UNITS RANGE LAB GLUBL(LOINC 70-99 mg/dL ) High Glucose Meter 129 Result Comment: RN NOTIFIED Performed By: #### GLMET #### [place] [address] GLUCOSE METER Collected: 02/26/2018 Status: F Source: [facility] 11:58 AM HEALTH SYSTEM REPOSITORY TYPE CODE TESTS RESULT OUT OF REFERENCE UNITS RANGE LAB GLUBL(LOINC 70-99 mg/dL ) High Glucose Meter 113 Result Comment: RN NOTIFIED Performed By: #### GLMET #### [place] [address] BASIC PANEL Collected: 02/26/2018 Status: F Source: [facility] 10:10 AM HEALTH SYSTEM REPOSITORY TYPE CODE TESTS RESULT OUT OF REFERENCE UNITS RANGE LAB NA(LOINC) 136-145 mEq/L Sodium Blood 140 LAB K(LOINC) 3.5-5.1 mEq/L Low Potassium Blood 3.4 LAB CL(LOINC) 98-107 mEq/L Chloride High Blood 110 LAB CO2(LOINC) 21-32 mEq/L CO2 Blood 26 LAB GLU(LOINC) 70-99 mg/dL Glucose High Blood 119 LAB BUN(LOINC) 7-18 mg/dL BUN High Blood 20 LAB CREA(LOINC 0.67-1.17 mg/dL ) Low Creatinine Blood 0.56 LAB CA(LOINC) 8.5-10.1 mg/dL Low Calcium Blood 8.0 LAB ANGAP(LOIN 8-16 C) Low Anion Gap 7 Performed By: #### P8 #### [place] [address] MDRD GFR Collected: 02/26/2018 Status: F Source: [facility] 10:10 AM HEALTH SYSTEM REPOSITORY TYPE CODE TESTS RESULT OUT OF RANGE REFERENCE UNITS LAB GFRFN(LOINC >60mL/min/1.73m ) 2 eGFR >60 Result Comment: If the patient is , multiply the result by 1.210. Performed By: #### GFR #### [place] [address] PROGRESS Observed: 02/26/2018 Status: COMPLETED Source: [place] 9:53 AM CLINIC OTHER CAMPUS REPOSITORY HNO ID: [id number] Author: Evans Parkinson Service: Cardiac Surgery Author Type: Physician Type: Progress Notes Filed: 02/26/2018 9:59 AM Note Text: CARDIOTHORACIC SURGERY POSTOP PROGRESS NOTE SERVICE DATE: 02/26/2018 SERVICE TIME: 9:53 AM Subjective S/P SURGERY: Procedure(s) (LRB): TRACHEOSTOMY ADULT (N/A) DATE OF SURGERY: 02/22/2018 POSTOP DAY #17 LOS: 19 INTERVAL EVENTS / PERTINENT ROS: Attempted MRI brain last PM with sedation; unable to tolerate. Hemodynamically stable. Vent stable. Still not purposefully responsive. Objective Admission Weight: 104.3 kg (229 lb 15 oz) BP 130/68 Pulse 75 Temp 36.8 ?C (98.2 ?F) Resp 21 Ht 180.3 cm (5' 10.98) Wt 110.1 kg (242 lb 11.6 oz) SpO2 98% BMI 33.87 kg/m2 Body surface area is 2.35 meters squared. Min/Max/Average Temperature AND Blood Pressure: Temp (24hrs), Av.8 ?C (98.2 ?F), Min:36.8 ?C (98.2 ?F), Max:36.8 ?C (98.2 ?F) Systolic (24hrs), Av , Min:99 , Max:144 Diastolic (24hrs), Av, Min:54, Max:74 Intake/Output Summary (Last 24 hours) at 02/26/18 0953 Last data filed at 02/26/18 0629 Gross per 24 hour Intake 1218 ml Output 805 ml Net 413 ml TELEMETRY: normal sinus rhythm PHYSICAL EXAM: On examination, the patient is sedated, not responsive, breathing comfortably, on vent via trach. Vital signs are: BP 137/77 Pulse 65 Temp 36.7 ?C (98.1 ?F) Resp 20 Ht 180.3 cm (5' 11) Wt 86.4 kg (190 lb 7.6 oz) SpO2 99% BMI 26.57 kg/m2. There is no JVD. Breath sounds are clear bilaterally. The sternal wound is intact and the sternum is stable. The cardiac rhythm is regular. There are no rubs, gallops, or murmurs. The carotid, subclavian, and radial pulses are 2+ and equal bilaterally. The abdomen is soft and non-tender. There are no abdominal masses. The saphenous vein harvest sites are intact. There is trace pretibial edema. There is no clubbing or cyanosis. The neuro exam is grossly non focal, but he is non responsive to agitated. Lines, Drains, and Airways Line Central Line Double Lumen 02/17/18 1310 Peripherally Inserted (PICC) Right Arm 5.0 Vietnamese 8 days Drain Indwelling Urinary Catheter 02/09/18 0838 Temperature Monitoring 16 Fr 17 days GI Feed/Drain 02/22/18 1336 Gastrostomy-Jejunostomy (G-J) Abdomen 18 Fr 3 days Airway Airway Tracheostomy 02/22/18 4 days DATA: Diagnostic tests reviewed for today's visit: Significant Lab Results: see below Recent Labs 02/26/18 0410 02/25/18 0531 02/24/18 0411 02/23/18 1738 RBC 3.31* 3.15* 3.32* -- WBC 8.86 10.26* 9.72* -- HB 10.6* 10.1* 10.6* -- HCT 32.7* 31.4* 33.1* -- PLT 249 244 265 -- NA -- 145 147* 147* K -- 3.7 3.3* -- CHLOR -- 114* 115* -- CO2 -- 29 -- BUN -- 22* 22* -- CREAT -- 0.62* 0.64* -- GLUC -- 111* 100* -- CA -- 8.2* 8.4* -- ANION -- 9 6* -- Assessment/Plan Acute NSTEMI s/p CABG x 3 -POD#17 -c/w ASA 81, statin, BB, cardizem ?Acute hypoxic AND hypercapneic respiratory failure 2/2 severe COPD and PNA s/p trach minimal vent setting, FiO2 40% ??A-Flutter -PO Diltiazem -BB at 100 q8 ?-On Eliquis Volume Overload -c/w lasix 40 PO BID ?? Nutrition -G/J-tube placed 02/23/18 ?? Encephalopathy Failed another MRI attempt ?? Hypokalemia -replace K as needed ?? Dispo -Approved for [facility] Tests/Labs Ordered: 1. BMP SIGNATURE: Evans Parkinson MD PATIENT NAME: Jeffrey Cullen DATE: February 26, 2018 TIME: 9:53 AM PAGER/CONTACT #: [phone] GLUCOSE METER Collected: 02/26/2018 Status: F Source: [facility] 5:45 AM HEALTH SYSTEM REPOSITORY TYPE CODE TESTS RESULT OUT OF REFERENCE UNITS RANGE LAB GLUBL(LOINC 70-99 mg/dL ) Glucose Meter 92 Result Comment: RN NOTIFIED Performed By: #### GLMET #### [place] [address] HEMOGRAM Collected: 02/26/2018 Status: F Source: [facility] 4:10 AM HEALTH SYSTEM REPOSITORY TYPE CODE TESTS RESULT OUT OF REFERENCE UNITS RANGE LAB WBC(LOINC) 4.23-9.07 thou/cmm WBC 8.86 LAB RBC(LOINC) 4.63-6.08 mil/cmm Low RBC 3.31 LAB HGB(LOINC) 13.7-17.5 g/dL Low Hgb 10.6 LAB HCT(LOINC) 40.1-51.0 % Low Hct 32.7 LAB MCV(LOINC) 83.2-95.6 fl High MCV 98.8 LAB MCH(LOINC) 25.7-32.2 pg MCH 32.0 LAB MCHC(LOINC) 32.3-36.5 % MCHC 32.4 LAB RDW(LOINC) 11.6-14.4 % RDW 13.6 LAB RDWSD(LOINC 36.1-45.8 fl ) High RDW SD 48.0 LAB PLT(LOINC) 141-365 thou/cmm Platelet 249 LAB MPV(LOINC) 8.7-12.0 fl MPV 10.3 Performed By: #### CBC1 #### [place] [address] PROGRESS Observed: 02/26/2018 Status: COMPLETED Source: [place] 12:17 AM CLINIC OTHER CAMPUS REPOSITORY HNO ID: [id number] Author: Keon Chance Service: Pulmonary Disease Author Type: Physician Type: Progress Notes Filed: 02/26/2018 12:18 AM Note Text: CRITICAL CARE PROGRESS NOTE SERVICE DATE: February 26, 2018 SERVICE TIME: 12:17 AM Admission Date: 02/07/2018 AGE: [age] year old LOS: 19 days REASON FOR ICU ADMISSION: ACTIVE PROBLEM LIST Inguinal Hernia Without Mention of Obstruction Or Gangrene, Unilateral Or Unspecified, (Not Specified As Recurrent) Nstemi (Non-St Elevated Myocardial Infarction) ([facility]) Nsvt (Nonsustained Ventricular Tachycardia) ([facility]) Nicotine use disorder, F17.2 Malnutrition of Moderate Degree ([facility]) Subjective OVERNIGHT EVENTS: Patient is currently resting comfortably in bed on the ventilator via tracheostomy tube without any current distress. Objective VITAL SIGNS: BP 99/57 Pulse 69 Temp 36.5 ?C (97.7 ?F) Resp 27 Ht 180.3 cm (5' 10.98) Wt 108.2 kg (238 lb 8.6 oz) SpO2 100% BMI 33.28 kg/m2 24 hour Intake AND Output: Intake/Output Summary (Last 24 hours) at 02/26/18 0017 Last data filed at 02/25/18 1946 Gross per 24 hour Intake 731.1 ml Output 858 ml Net -126.9 ml PHYSICAL EXAM: RRR Few scattered crackles bilaterally without wheezing bilaterally anteriorly. Few scattered bowel sounds, soft, nontender, mildly distended, GJ tube is well secured in place. No pedal edema bilaterally. Poor turgor, but dry, intact skin. VENTILATOR INFORMATION: WEANING DATA: Settings: Invasive Ventilator Mode: Pressure Regulated Volume Control (02/25/18 8093) %FIO2: 41 Set Ventilator Respiratory Rate (BPM): 15 Tidal Volume Set (mL): 550 PEEP/CPAP (cm H2O): 5 Inspiratory Pressure Set (cm H2O): 0.75 Patient Data: Inspiratory:Expiratory Ratio: 1.0:1.4 Peak Inspiratory Pressure (cm H2O): 20 Plateau Pressure (cm H2O): 12 Weaning Data: Spontaneous Tidal Volume (mL): 587.5 Spontaneous Respiratory Rate (BPM): 19 Rapid Shallow Breathing Index (RSBI): 40.85 INPATIENT MEDICATIONS: Current hospital medications: dexmedetomidine 400 mcg in NaCl 0.9% 100 mL (PRECEDEX) 0.2- 0.7 mcg/kg/hr INTRAVENOUS CONTINUOUS aspirin 81 mg chewable tab(s) 81 mg ORAL DAILY apixaban 5 mg tab(s) (ELIQUIS) 5 mg ORAL BID famotidine 20 mg tab(s) (PEPCID) 20 mg ORAL BID QUEtiapine 50 mg tablet (SEROquel) 50 mg ORAL BID dilTIAZem 100 mg in D5W 100 mL ADD-Boyden (CARDIZEM) 5 mg/hr INTRAVENOUS CONTINUOUS metoprolol tartrate (short acting) 100 mg tab(s) (LOPRESSOR) 100 mg ORAL q 8 H diltiazem 30 mg tab(s) (CARDIZEM) 30 mg NASOGASTRIC q 6 H 0.9% NaCl 20 mL 20 mL INTRAVENOUS PRN 0.9% NaCl 10 mL 10 mL INTRAVENOUS q 12 H 0.9% NaCl 20 mL 20 mL INTRAVENOUS PRN nystatin 5 mL oral liquid (MYCOSTATIN) 5 mL ORAL QID metoclopramide HCl 10 mg injection (REGLAN) 10 mg INTRAVENOUS q 6 H LORazepam 2 mg injection (ATIVAN) 2 mg INTRAVENOUS q 4 H PRN dextrose 40 % 15 g 15 g ORAL PRN glucagon 1 mg injection (GLUCAGEN) 1 mg INTRAMUSCULAR PRN dextrose 50% in water 25 mL syringe 12.5 g INTRAVENOUS PRN insulin regular human injection (short acting) (NovoLIN R,HumuLIN R) SUBCUTANEOUS q 6 H bisacodyl 10 mg suppository (DULCOLAX) 10 mg RECTAL DAILY PRN polyethylene glycol 3350 17 g packet (MIRALAX, GLYCOLAX) 17 g ORAL DAILY senna-docusate 8.6-50 mg 1 tablet (SENNA-S) 1 tablet ORAL BID pill splitter (patient-specific) 1 Each Miscell. (Med.Supl.;Non- Drugs) PRN Chlorhexidine Gluconate 0.12 % 15 mL (PERIDEX) 15 mL ORAL q 12 H budesonide 0.5 mg/2 mL 1 mg (PULMICORT) 1 mg INHALATION BID acetaminophen 650 mg tab(s) (TYLENOL) 650 mg ORAL q 6 H PRN dextrose 50% in water 25 mL syringe 12.5 g INTRAVENOUS PRN potassium chloride iv piggyback 20 mEq in sterile water 100 mL 20 mEq INTRAVENOUS PRN magnesium sulfate in water 2 g in sterile water 50 ml 2 g INTRAVENOUS PRN(NO DISPENSE) albuterol 2.5 mg /3 mL (0.083 %) 2.5 mg (PROVENTIL) 2.5 mg INHALATION q 2 H PRN calcium chloride 1 g in D5W 100 mL 1 g INTRAVENOUS PRN(NO DISPENSE) oxyCODONE-acetaminophen 5-325 mg 1-2 tablet (PERCOCET) 1-2 tablet ORAL q 4 H PRN morphine 2-4 mg injection 2-4 mg INTRAVENOUS q 1 H PRN ondansetron (PF) 4 mg injection (ZOFRAN) 4 mg INTRAVENOUS q 6 H PRN ipratropium-albuterol 3 mL nebulizer solution (DUONEB) 3 mL INHALATION q 4 H atorvastatin 40 mg tab(s) (LIPITOR) 40 mg ORAL AT BEDTIME DATA: BLOOD GAS: CBC: Recent Labs 02/25/18 0531 02/24/18 0411 02/23/18 0230 02/22/18 0430 02/21/18 0515 02/20/18 0610 02/19/18 0550 WBC 10.26* 9.72* 9.82* 10.26* 10.22* 10.17* 10.36* HB 10.1* 10.6* 10.6* 11.0* 10.8* 11.2* 11.6* HCT 31.4* 33.1* 33.2* 33.7* 34.3* 33.7* 35.2* PLT 244 265 273 272 261 250 254 MCV 99.7* 99.7* 99.1* 98.3* 98.8* 96.3* 96.4* BMP: Recent Labs 02/25/18 0531 02/24/18 0411 02/23/18 1738 02/23/18 0230 02/22/18 1845 02/22/18 0430 02/21/18 0515 02/20/18 0610 02/19/18 0550 GLUC 111* 100* -- 111* 112* 110* 127* 120* 107* NA 145 147* 147* 150* 148* 147* 147* 145 146* K 3.7 3.3* -- 3.5 3.5 3.7 3.7 3.7 3.6 CHLOR 114* 115* -- 117* 115* 114* 115* 114* 111* CO2 26 29 -- 27 28 28 28 28 31 ANION 9 6* -- 10 9 9 8 7* 8 BUN 22* 22* -- 27* 28* 27* 29* 34* 39* CREAT 0.62* 0.64* -- 0.63* 0.66* 0.78 0.73 0.84 0.80 CHEM: Recent Labs 02/25/18 0531 02/24/18 0411 02/23/18 0230 02/22/18 1845 02/22/18 0430 02/21/18 0515 02/20/18 0610 02/19/18 0550 CA 8.2* 8.4* 8.2* 8.0* 8.2* 8.4* 8.2* 8.5 MG -- -- -- 2.4 -- -- -- -- Assessment/Plan ASSESSMENT: ACTIVE PROBLEM LIST Inguinal Hernia Without Mention of Obstruction Or Gangrene, Unilateral Or Unspecified, (Not Specified As Recurrent) Nstemi (Non-St Elevated Myocardial Infarction) ([facility]) Nsvt (Nonsustained Ventricular Tachycardia) ([facility]) Nicotine use disorder, F17.2 Malnutrition of Moderate Degree ([facility]) S/P CABG, POD # 17 Acute exacerbation of COPD secondary to HCAP Acute hypoxic respiratory failure Acute encephalopathy PLAN: Continue full ventilator support. Patient underwent tracheostomy and GJ tube placement earlier this week. Continue bronchodilators. Finished antibiotic course. Continue Reglan 10 mg IV every 6 hours. Patient is tolerating tube feeds better after GJ tube has been used. Continue supportive care. Continue ICU monitoring. Discharge planning is ongoing. To [facility] after this weekend. This patient has a high probability of sudden, clinically significant deterioration, which requires the highest level of physician preparedness to intervene urgently. I managed/supervised life or organ supporting interventions that required frequent physician assessment. I devoted my full attention to the direct care of this patient for the amount of time indicated below. Time I spent with family or surrogate(s) is included only if the patient was incapable of providing the necessary information or participating in medical decision making. Time devoted to teaching and to any procedures I billed separately is not included. PROGNOSIS: Fair Code status: Full Code. Discussed with Registered Nurse. Critical Care Documentation: The patient has the following organ/system impairment(s): Respiratory failure (Acute, with Hypoxemia) and coronary artery disease Time spent providing critical care services: 21 minutes. SIGNATURE: Keon Chance MD [facility] PAGER:[phone] DATE of SERVICE: February 26, 2018 TIME of SERVICE: 12:17 AM NURSING PROG Observed: 02/25/2018 Status: COMPLETED Source: [place] 6:20 PM CLINIC OTHER CAMPUS REPOSITORY HNO ID: [id number] Author: Darcy MoodyRn) RAINA Oleary Service: Nursing Author Type: Registered Nurse Type: Nursing Progress Note Filed: 02/25/2018 6:49 PM Note Text: Pt. Very agitated. Thrashing around bed. Kicking legs over the side of the bed. Pulled up in bed and repositioned in bed per 3 nurses. Medicated at noted. GLUCOSE METER Collected: 02/25/2018 Status: F Source: [facility] 5:58 PM HEALTH SYSTEM REPOSITORY TYPE CODE TESTS RESULT OUT OF REFERENCE UNITS RANGE LAB GLUBL(LOINC 70-99 mg/dL ) High Glucose Meter 107 Result Comment: RN NOTIFIED Performed By: #### GLMET #### [place] [address] LEVEL 1 DEPT VISIT/EST Observed: 02/25/2018 Status: F Source: [facility] 12:55 PM HEALTH SYSTEM REPOSITORY Performed at [facility] APPROVED BY: Oumar Luque MD EXAM TITLE: ATTEMPTED MRI DATE: 02/25/2018 12:55 TECHNIQUE: The patient was scheduled for an MRI. The patient was unable to cooperate for the exam. IMPRESSION: The MRI was not performed. GLUCOSE METER Collected: 02/25/2018 Status: F Source: [facility] 12:03 PM HEALTH SYSTEM REPOSITORY TYPE CODE TESTS RESULT OUT OF REFERENCE UNITS RANGE LAB GLUBL(LOINC 70-99 mg/dL ) High Glucose Meter 111 Result Comment: RN NOTIFIED Performed By: #### GLMET #### [facility] [address] [place] [id number] PROGRESS Observed: 02/25/2018 Status: COMPLETED Source: [place] 11:08 AM CLINIC OTHER CAMPUS REPOSITORY HNO ID: [id number] Author: Evans Parkinson Service: Cardiac Surgery Author Type: Physician Type: Progress Notes Filed: 02/25/2018 11:12 AM Note Text: CARDIOTHORACIC SURGERY POSTOP PROGRESS NOTE SERVICE DATE: 02/25/2018 SERVICE TIME: 11:09 AM Subjective S/P SURGERY: Procedure(s) (LRB): TRACHEOSTOMY ADULT (N/A) DATE OF SURGERY: 02/22/2018 POSTOP DAY #16 LOS: 18 INTERVAL EVENTS / PERTINENT ROS: Hemodynamics stable. Vent stable. Still delirium, not purposeful, requiring sedation. For MRI brain today. Objective Admission Weight: 104.3 kg (229 lb 15 oz) BP 136/72 Pulse 81 Temp 36.5 ?C (97.7 ?F) Resp 24 Ht 180.3 cm (5' 10.98) Wt 108.2 kg (238 lb 8.6 oz) SpO2 99% BMI 33.28 kg/m2 Body surface area is 2.33 meters squared. Min/Max/Average Temperature AND Blood Pressure: Temp (24hrs), Av.7 ?C (98.1 ?F), Min:36.5 ?C (97.7 ?F), Max:36.9 ?C (98.4 ?F) Systolic (24hrs), Av , Min:93 , Max:150 Diastolic (24hrs), Av, Min:53, Max:94 Intake/Output Summary (Last 24 hours) at 02/25/18 1108 Last data filed at 02/25/18 1000 Gross per 24 hour Intake 2173.6 ml Output 1172 ml Net 1001.6 ml TELEMETRY: normal sinus rhythm PHYSICAL EXAM: On examination, the patient is intubated via trach, sedated, not following commands, not purposeful. Tube feed via PEG. Vital signs are: BP 137/77 Pulse 65 Temp 36.7 ?C (98.1 ?F) Resp 20 Ht 180.3 cm (5' 11) Wt 86.4 kg (190 lb 7.6 oz) SpO2 99% BMI 26.57 kg/m2. Lines, Drains, and Airways Line Central Line Double Lumen 02/17/18 1310 Peripherally Inserted (PICC) Right Arm 5.0 Vietnamese 7 days Drain Indwelling Urinary Catheter 02/09/18 0838 Temperature Monitoring 16 Fr 16 days GI Feed/Drain 02/22/18 1336 Gastrostomy-Jejunostomy (G-J) Abdomen 18 Fr 2 days Airway Airway Tracheostomy 02/22/18 3 days DATA: Diagnostic tests reviewed for today's visit: Recent Labs 02/25/18 0531 02/24/18 0411 02/23/18 1738 02/23/18 0230 02/22/18 1845 RBC 3.15* 3.32* -- 3.35* -- WBC 10.26* 9.72* -- 9.82* -- HB 10.1* 10.6* -- 10.6* -- HCT 31.4* 33.1* -- 33.2* -- PLT 244 265 -- 273 -- NA 145 147* 147* 150* 148* K 3.7 3.3* -- 3.5 3.5 CHLOR 114* 115* -- 117* 115* CO2 26 29 -- 27 28 BUN 22* 22* -- 27* 28* CREAT 0.62* 0.64* -- 0.63* 0.66* GLUC 111* 100* -- 111* 112* CA 8.2* 8.4* -- 8.2* 8.0* MG -- -- -- -- 2.4 ANION 9 6* -- 10 9 Assessment/Plan Acute NSTEMI s/p CABG x 3 -POD#16 -c/w ASA 81, statin, BB, cardizem -Post thorax vest -Start Eliquis for dual anticoagulation ?? Acute hypoxic AND hypercapneic respiratory failure 2/2 severe COPD and PNA -Vent management per pulmonary service -tracheostomy placement on 02/23/18 ?? A-Flutter -PO Diltiazem -BB at 100 q8 ?? Volume Overload -c/w lasix 40 PO BID ?? Constipation -c/w miralax and senokot-s ?? Nutrition -G/J-tube placed 02/23/18 ? Encephalopathy -Attempt another MRI premedicating with ativan ? Hypokalemia -replace K as needed ?? DVT ppx -SCDs ?? Dispo -Approved for [facility] Tests/Labs Ordered: 1. None SIGNATURE: Evans Parkinson MD PATIENT NAME: Jeffrey Cullen DATE: February 25, 2018 TIME: 11:08 AM PAGER/CONTACT #: [phone] CHEST 1 VIEW Observed: 02/25/2018 Status: F Source: [place] 6:10 AM HEALTH SYSTEM REPOSITORY Performed at [facility] APPROVED BY: Chan Fernandez MD Portable frontal chest, 0539 hours: CLINICAL INDICATION: Respiratory failure. Status post CABG. COMPARISON: Near daily prior chest radiographs. Multiple monitoring wires overlie the chest. There is a tracheostomy tube in profile with the upper tracheal airway. There is a right upper extremity PICC line terminating profile with the right atrium. There is left perihilar interstitial and airspace opacity. There is left basilar opacity with blunting of the lateral costophrenic angle. The cardiac and mediastinal silhouette appears stable. IMPRESSION: Left perihilar interstitial and airspace opacity, possible asymmetric edema or pneumonia. Left basilar opacity suggesting pleural effusion with associated atelectasis or consolidation. Stable cardiomegaly. Life-support equipment as noted. HEMOGRAM Collected: 02/25/2018 Status: F Source: [place] 5:31 AM HEALTH SYSTEM REPOSITORY TYPE CODE TESTS RESULT OUT OF REFERENCE UNITS RANGE LAB WBC(LOINC) 4.23-9.07 thou/cmm High WBC 10.26 LAB RBC(LOINC) 4.63-6.08 mil/cmm Low RBC 3.15 LAB HGB(LOINC) 13.7-17.5 g/dL Low Hgb 10.1 LAB HCT(LOINC) 40.1-51.0 % Low Hct 31.4 LAB MCV(LOINC) 83.2-95.6 fl High MCV 99.7 LAB MCH(LOINC) 25.7-32.2 pg MCH 32.1 LAB MCHC(LOINC) 32.3-36.5 % Low MCHC 32.2 LAB RDW(LOINC) 11.6-14.4 % RDW 13.6 LAB RDWSD(LOINC 36.1-45.8 fl ) High RDW SD 48.0 LAB PLT(LOINC) 141-365 thou/cmm Platelet 244 LAB MPV(LOINC) 8.7-12.0 fl MPV 10.4 Performed By: #### CBC1 #### [facility] [address] [place] [address] BASIC PANEL Collected: 02/25/2018 Status: F Source: [facility] 5: AM HEALTH SYSTEM REPOSITORY TYPE CODE TESTS RESULT OUT OF REFERENCE UNITS RANGE LAB NA(LOINC) 136-145 mEq/L Sodium Blood 145 LAB K(LOINC) 3.5-5.1 mEq/L Potassium Blood 3.7 LAB CL(LOINC) 98-107 mEq/L Chloride High Blood 114 LAB CO2(LOINC) 21-32 mEq/L CO2 Blood 26 LAB GLU(LOINC) 70-99 mg/dL Glucose High Blood 111 LAB BUN(LOINC) 7-18 mg/dL BUN High Blood 22 LAB CREA(LOINC 0.67-1.17 mg/dL ) Low Creatinine Blood 0.62 LAB CA(LOINC) 8.5-10.1 mg/dL Low Calcium Blood 8.2 LAB ANGAP(LOIN 8-16 C) Anion Gap 9 Performed By: #### P8 #### [facility] [address] [place] [address] MDRD GFR Collected: 02/25/2018 Status: F Source: [place] [id number]:[facility] REPOSITORY TYPE CODE TESTS RESULT OUT OF RANGE REFERENCE UNITS LAB GFRFN(LOINC >60mL/min/1.73m ) 2 eGFR >60 Result Comment: If the patient is , multiply the result by 1.210. Performed By: #### GFR #### [facility] [address] [place], [place] [address] GLUCOSE METER Collected: 02/25/2018 Status: F Source: [facility] 5:13 AM HEALTH SYSTEM REPOSITORY TYPE CODE TESTS RESULT OUT OF REFERENCE UNITS RANGE LAB GLUBL(LOINC 70-99 mg/dL ) High Glucose Meter 108 Result Comment: RN NOTIFIED Performed By: #### GLMET #### [facility] [address] [place], [place] [address] PROGRESS Observed: 02/25/2018 Status: COMPLETED Source: [place] 1:14 AM CLINIC OTHER CAMPUS REPOSITORY HNO ID: [id number] Author: Keon Chance Service: Pulmonary Disease Author Type: Physician Type: Progress Notes Filed: 02/25/2018 1:18 AM Note Text: CRITICAL CARE PROGRESS NOTE SERVICE DATE: February 25, 2018 SERVICE TIME: 1:14 AM Admission Date: 02/07/2018 AGE: [age] year old LOS: 18 days REASON FOR ICU ADMISSION: ACTIVE PROBLEM LIST Inguinal Hernia Without Mention of Obstruction Or Gangrene, Unilateral Or Unspecified, (Not Specified As Recurrent) Nstemi (Non-St Elevated Myocardial Infarction) ([facility]) Nsvt (Nonsustained Ventricular Tachycardia) ([facility]) Nicotine use disorder, F17.2 Malnutrition of Moderate Degree ([facility]) Subjective OVERNIGHT EVENTS: Patient is currently resting comfortably in bed on the ventilator via tracheostomy tube without any current distress. Objective VITAL SIGNS: BP 112/63 Pulse 82 Temp 36.8 ?C (98.2 ?F) (Temporal Artery) Resp 20 Ht 180.3 cm (5' 10.98) Wt 108.5 kg (239 lb 3.2 oz) SpO2 98% BMI 33.38 kg/m2 24 hour Intake AND Output: Intake/Output Summary (Last 24 hours) at 02/25/18 0114 Last data filed at 02/25/18 0013 Gross per 24 hour Intake 2612.5 ml Output 1095 ml Net 1517.5 ml PHYSICAL EXAM: RRR Few scattered crackles bilaterally without wheezing bilaterally anteriorly. Few scattered bowel sounds, soft, nontender, mildly distended, GJ tube is well secured in place. No pedal edema bilaterally. Poor turgor, but dry, intact skin. VENTILATOR INFORMATION: WEANING DATA: Settings: Invasive Ventilator Mode: Pressure Regulated Volume Control (02/24/18 6115) %FIO2: 40 Set Ventilator Respiratory Rate (BPM): 15 Tidal Volume Set (mL): 550 PEEP/CPAP (cm H2O): 5 Inspiratory Pressure Set (cm H2O): 0.9 Patient Data: Inspiratory:Expiratory Ratio: 1:4.3 Peak Inspiratory Pressure (cm H2O): 0 Plateau Pressure (cm H2O): 15 Weaning Data: Spontaneous Tidal Volume (mL): 587.5 Spontaneous Respiratory Rate (BPM): 19 Rapid Shallow Breathing Index (RSBI): 40.85 INPATIENT MEDICATIONS: Current hospital medications: dexmedetomidine 400 mcg in NaCl 0.9% 100 mL (PRECEDEX) 0.2- 0.7 mcg/kg/hr INTRAVENOUS CONTINUOUS aspirin 81 mg chewable tab(s) 81 mg ORAL DAILY apixaban 5 mg tab(s) (ELIQUIS) 5 mg ORAL BID famotidine 20 mg tab(s) (PEPCID) 20 mg ORAL BID QUEtiapine 50 mg tablet (SEROquel) 50 mg ORAL BID dilTIAZem 100 mg in D5W 100 mL ADD-Boyden (CARDIZEM) 5 mg/hr INTRAVENOUS CONTINUOUS metoprolol tartrate (short acting) 100 mg tab(s) (LOPRESSOR) 100 mg ORAL q 8 H diltiazem 30 mg tab(s) (CARDIZEM) 30 mg NASOGASTRIC q 6 H 0.9% NaCl 20 mL 20 mL INTRAVENOUS PRN 0.9% NaCl 10 mL 10 mL INTRAVENOUS q 12 H 0.9% NaCl 20 mL 20 mL INTRAVENOUS PRN nystatin 5 mL oral liquid (MYCOSTATIN) 5 mL ORAL QID metoclopramide HCl 10 mg injection (REGLAN) 10 mg INTRAVENOUS q 6 H LORazepam 2 mg injection (ATIVAN) 2 mg INTRAVENOUS q 4 H PRN dextrose 40 % 15 g 15 g ORAL PRN glucagon 1 mg injection (GLUCAGEN) 1 mg INTRAMUSCULAR PRN dextrose 50% in water 25 mL syringe 12.5 g INTRAVENOUS PRN insulin regular human injection (short acting) (NovoLIN R,HumuLIN R) SUBCUTANEOUS q 6 H bisacodyl 10 mg suppository (DULCOLAX) 10 mg RECTAL DAILY PRN polyethylene glycol 3350 17 g packet (MIRALAX, GLYCOLAX) 17 g ORAL DAILY senna-docusate 8.6-50 mg 1 tablet (SENNA-S) 1 tablet ORAL BID pill splitter (patient-specific) 1 Each Miscell. (Med.Supl.;Non- Drugs) PRN Chlorhexidine Gluconate 0.12 % 15 mL (PERIDEX) 15 mL ORAL q 12 H budesonide 0.5 mg/2 mL 1 mg (PULMICORT) 1 mg INHALATION BID acetaminophen 650 mg tab(s) (TYLENOL) 650 mg ORAL q 6 H PRN dextrose 50% in water 25 mL syringe 12.5 g INTRAVENOUS PRN potassium chloride iv piggyback 20 mEq in sterile water 100 mL 20 mEq INTRAVENOUS PRN magnesium sulfate in water 2 g in sterile water 50 ml 2 g INTRAVENOUS PRN(NO DISPENSE) albuterol 2.5 mg /3 mL (0.083 %) 2.5 mg (PROVENTIL) 2.5 mg INHALATION q 2 H PRN calcium chloride 1 g in D5W 100 mL 1 g INTRAVENOUS PRN(NO DISPENSE) oxyCODONE-acetaminophen 5-325 mg 1-2 tablet (PERCOCET) 1-2 tablet ORAL q 4 H PRN morphine 2-4 mg injection 2-4 mg INTRAVENOUS q 1 H PRN ondansetron (PF) 4 mg injection (ZOFRAN) 4 mg INTRAVENOUS q 6 H PRN ipratropium-albuterol 3 mL nebulizer solution (DUONEB) 3 mL INHALATION q 4 H atorvastatin 40 mg tab(s) (LIPITOR) 40 mg ORAL AT BEDTIME DATA: BLOOD GAS: CBC: Recent Labs 02/24/18 0411 02/23/18 0230 02/22/18 0430 02/21/18 0515 02/20/18 0610 02/19/18 0550 02/18/18 0520 WBC 9.72* 9.82* 10.26* 10.22* 10.17* 10.36* 10.99* HB 10.6* 10.6* 11.0* 10.8* 11.2* 11.6* 11.6* HCT 33.1* 33.2* 33.7* 34.3* 33.7* 35.2* 35.4* PLT 265 273 272 261 250 254 235 MCV 99.7* 99.1* 98.3* 98.8* 96.3* 96.4* 98.1* BMP: Recent Labs 02/24/18 0411 02/23/18 1738 02/23/18 0230 02/22/18 1845 02/22/18 0430 02/21/18 0515 02/20/18 0610 02/19/18 0550 02/18/18 0520 GLUC 100* -- 111* 112* 110* 127* 120* 107* 122* NA 147* 147* 150* 148* 147* 147* 145 146* 146* K 3.3* -- 3.5 3.5 3.7 3.7 3.7 3.6 3.7 CHLOR 115* -- 117* 115* 114* 115* 114* 111* 110* CO2 29 -- 27 28 28 28 28 31 30 ANION 6* -- 10 9 9 8 7* 8 10 BUN 22* -- 27* 28* 27* 29* 34* 39* 40* CREAT 0.64* -- 0.63* 0.66* 0.78 0.73 0.84 0.80 0.88 CHEM: Recent Labs 02/24/18 0411 02/23/18 0230 02/22/18 1845 02/22/18 0430 02/21/18 0515 02/20/18 0610 02/19/18 0550 02/18/18 0520 CA 8.4* 8.2* 8.0* 8.2* 8.4* 8.2* 8.5 8.3* MG -- -- 2.4 -- -- -- -- -- Assessment/Plan ASSESSMENT: ACTIVE PROBLEM LIST Inguinal Hernia Without Mention of Obstruction Or Gangrene, Unilateral Or Unspecified, (Not Specified As Recurrent) Nstemi (Non-St Elevated Myocardial Infarction) ([facility]) Nsvt (Nonsustained Ventricular Tachycardia) ([facility]) Nicotine use disorder, F17.2 Malnutrition of Moderate Degree ([facility]) S/P CABG, POD # 16 Acute exacerbation of COPD secondary to HCAP Acute hypoxic respiratory failure Acute encephalopathy PLAN: Continue full ventilator support. Patient underwent tracheostomy and GJ tube placement earlier this week. Continue bronchodilators. Finished antibiotic course. Continue Reglan 10 mg IV every 6 hours. Patient is tolerating tube feeds better after GJ tube has been used. Continue supportive care. Continue ICU monitoring. Discharge planning is ongoing. To [facility] after this weekend. This patient has a high probability of sudden, clinically significant deterioration, which requires the highest level of physician preparedness to intervene urgently. I managed/supervised life or organ supporting interventions that required frequent physician assessment. I devoted my full attention to the direct care of this patient for the amount of time indicated below. Time I spent with family or surrogate(s) is included only if the patient was incapable of providing the necessary information or participating in medical decision making. Time devoted to teaching and to any procedures I billed separately is not included. PROGNOSIS: Fair Code status: Full Code. Discussed with Registered Nurse. Critical Care Documentation: The patient has the following organ/system impairment(s): Respiratory failure (Acute, with Hypoxemia) and coronary artery disease Time spent providing critical care services: 35 minutes. SIGNATURE: Keon Chance MD [facility] PAGER:[phone] DATE of SERVICE: February 25, 2018 TIME of SERVICE: 1:14 AM GLUCOSE METER Collected: 02/25/2018 Status: F Source: [facility] 12:10 AM HEALTH SYSTEM REPOSITORY TYPE CODE TESTS RESULT OUT OF REFERENCE UNITS RANGE LAB GLUBL(LOINC 70-99 mg/dL ) High Glucose Meter 105 Result Comment: RN NOTIFIED Performed By: #### GLMET #### [facility] [address] [place] [address] GLUCOSE METER Collected: 02/24/2018 Status: F Source: [facility] 5:40 PM HEALTH SYSTEM REPOSITORY TYPE CODE TESTS RESULT OUT OF REFERENCE UNITS RANGE LAB GLUBL(LOINC 70-99 mg/dL ) Glucose Meter 98 Result Comment: RN NOTIFIED Performed By: #### GLMET #### [place] [address] PROGRESS Observed: 02/24/2018 Status: COMPLETED Source: [place] 1:19 PM CLINIC OTHER CAMPUS REPOSITORY O ID: [id number] Author: Evans Parkinson Service: Cardiac Surgery Author Type: Physician Type: Progress Notes Filed: 02/24/2018 5:29 PM Note Text: CARDIOTHORACIC SURGERY POSTOP PROGRESS NOTE SERVICE DATE: 02/24/2018 SERVICE TIME: 1:20 PM Subjective S/P SURGERY: Procedure(s) (LRB): TRACHEOSTOMY ADULT (N/A) DATE OF SURGERY: 02/22/2018 POSTOP DAY #15 LOS: 17 INTERVAL EVENTS / PERTINENT ROS: Patient in bed and sedated. Still on vent support. Ordered an MRI with ativan hopefully today and then LTAC. Objective Admission Weight: 104.3 kg (229 lb 15 oz) BP 110/64 Pulse 74 Temp 36.3 ?C (97.3 ?F) Resp 10 Ht 180.3 cm (5' 10.98) Wt 108.5 kg (239 lb 3.2 oz) SpO2 98% BMI 33.38 kg/m2 Body surface area is 2.33 meters squared. Min/Max/Average Temperature AND Blood Pressure: Temp (24hrs), Av.9 ?C (98.4 ?F), Min:36.3 ?C (97.3 ?F), Max:37.1 ?C (98.8 ?F) Systolic (24hrs), Av , Min:88 , Max:138 Diastolic (24hrs), Av, Min:53, Max:79 Intake/Output Summary (Last 24 hours) at 02/24/18 1320 Last data filed at 02/24/18 1150 Gross per 24 hour Intake 1430 ml Output 527 ml Net 903 ml TELEMETRY: normal sinus rhythm PHYSICAL EXAM: General Appearance: well developed, overweight and no distress Skin: No rash on chest, arms or legs. Warm, dry. Midsternal AND SVG incision dry AND intact, without redness, drainage or edema. Lungs: clear Heart: regular rhythm and S1, S2 normal Abdomen: soft, round, bowel sounds present and distended Neurologic/Psychiatric: sedated, not following comands Extremities: edema: Trace Lines, Drains, and Airways Line Central Line Double Lumen 02/17/18 1310 Peripherally Inserted (PICC) Right Arm 5.0 Vietnamese 7 days Drain Indwelling Urinary Catheter 02/09/18 0838 Temperature Monitoring 16 Fr 15 days GI Feed/Drain 02/22/18 1336 Gastrostomy-Jejunostomy (G-J) Abdomen 18 Fr 1 day Airway Airway Tracheostomy 02/22/18 2 days DATA: Recent Labs 02/24/18 0411 02/23/18 1738 02/23/18 0230 02/22/18 1845 02/22/18 0430 RBC 3.32* -- 3.35* -- 3.43* WBC 9.72* -- 9.82* -- 10.26* HB 10.6* -- 10.6* -- 11.0* HCT 33.1* -- 33.2* -- 33.7* PLT 265 -- 273 -- 272 NA 147* 147* 150* 148* 147* K 3.3* -- 3.5 3.5 3.7 CHLOR 115* -- 117* 115* 114* CO2 29 -- 27 28 28 BUN 22* -- 27* 28* 27* CREAT 0.64* -- 0.63* 0.66* 0.78 GLUC 100* -- 111* 112* 110* CA 8.4* -- 8.2* 8.0* 8.2* MG -- -- -- 2.4 -- ANION 6* -- 10 9 9 Assessment/Plan Acute NSTEMI s/p CABG x 3 -POD#15 -c/w ASA 81, statin, BB, cardizem -Post thorax vest -Start Eliquis for dual anticoagulation ?? Acute hypoxic AND hypercapneic respiratory failure 2/2 severe COPD and PNA -Vent management per pulmonary service -tracheostomy placement on 02/23/18 ?? A-Flutter -PO Diltiazem -BB at 100 q8 ?? Klebsiella and E. coli HCAP -resolved ?? Oral Thrush -c/w nystatin ?? Volume Overload -c/w lasix 40 PO BID ?? Constipation -c/w miralax and senokot-s ?? Leukocytosis -non-febrile -stable -c/w monitor ?? Nutrition -G/J-tube placed 02/23/18 Encephalopathy -Attempt another MRI premedicating with ativan Hypokalemia -replace K as needed ?? DVT ppx -SCDs ?? Dispo -Approved for [facility] ? Tests/Labs Ordered: 1. Chest X-ray 2. CBC 3. CMP SIGNATURE: Misti Stein PA-C PATIENT NAME: Jeffrey Cullen DATE: February 24, 2018 TIME: 1:20 PM PAGER/CONTACT #:[phone] OAB [phone] Attending Note I have personally performed a face to face assessment of the patient and have reviewed the PA/[place] LINE ATTENDANT note. My hernandez findings include: as above; I have requested MRI brain for diagnosis and prognostic information in light of continued severe delirium, lack of purposeful movement. Other additions or changes: None Signature: Evans Parkinson MD Date: 02/24/2018 Time: 5:28 PM CASE MANAGEM Observed: 02/24/2018 Status: COMPLETED Source: [place] 1:10 PM CLINIC OTHER CAMPUS REPOSITORY HNO ID: [id number] Author: Angelica MoodyRn) RAINA Malcolm Service: Care Management Author Type: Registered Nurse Type: Care Mgt Progress Note Filed: 02/24/2018 1:11 PM Note Text: Intubated, s/p trach and J-G tube 02/22, on Diltiazem gtt, [facility] referral made, no precert required. Cont to follow for assist with dc planning. GLUCOSE METER Collected: 02/24/2018 Status: F Source: [facility] 11:44 AM HEALTH SYSTEM REPOSITORY TYPE CODE TESTS RESULT OUT OF REFERENCE UNITS RANGE LAB GLUBL(LOINC 70-99 mg/dL ) High Glucose Meter 102 Result Comment: RN NOTIFIED Performed By: #### GLMET #### [place] [address] PROGRESS Observed: 02/24/2018 Status: COMPLETED Source: [place] 10:57 AM [facility] OTHER [place] REPOSITORY HNO ID: [id number] Author: Maxx Marie Service: Pulmonary Disease Author Type: Physician Type: Progress Notes Filed: 02/24/2018 1:59 PM Note Text: MICU - PROGRESS NOTE Admission Date: 02/07/2018 AGE: [age] year old LOS: 17 days Subjective Off diprivan and fentanyl. REASON FOR ICU ADMISSION: Anticipated post-op resp insufficiency Objective PROBLEMS: ACTIVE PROBLEM LIST Inguinal Hernia Without Mention of Obstruction Or Gangrene, Unilateral Or Unspecified, (Not Specified As Recurrent) Nstemi (Non-St Elevated Myocardial Infarction) ([facility]) Nsvt (Nonsustained Ventricular Tachycardia) ([facility]) Nicotine use disorder, F17.2 Malnutrition of Moderate Degree ([facility]) No past medical history on file. PAST SURGICAL HISTORY Procedure Laterality Date - ORTHOPEDICS SURGERY HX - REPAIR ING HERNIA,5+Y/O,REDUCIBL 1990 Hernia repair, inguinal,left Social History Marital status: Single Spouse name: Years of education: Number of children: Social History Main Topics Smoking status: Current Every Day Smoker Packs/day: 2.00 Years: 25.00 Types: Cigarettes Alcohol use: No Drug use: No Sexual activity: Yes Partners with: Female Other Topics Concern Service No Blood Transfusions No Caffeine Concern No Occupational Exposure No Hobby Hazards No Sleep Concern No Stress Concern No Weight Concern No Special Diet No Back Care No Exercise No Bike Helmet No Seat Belt No Self-Exams No VITAL SIGNS (last 24hrs min/max): Temp Av.6 ?C (97.8 ?F) Min: 36.1 ?C (97 ?F) Max: 37.1 ?C (98.8 ?F) Pulse Av.7 Min: 50 Max: 155 No Data Recorded Cuff BP Min: 69/57 Max: 153/81 Pain Score: 0/10 Vital signs reviewed. BP 129/69 Pulse 74 Temp (Src) 97.3 (Temporal Artery) Resp 20 Ht 5' 10.984 (1.80m) Wt 239 lb 3.2 oz (108.5kg) SpO2 99% BMI 33.38 kg/(m2). Temp (24hrs), Av.8 ?C (98.2 ?F), Min:36.2 ?C (97.2 ?F), Max:37.1 ?C (98.8 ?F) NET FLUID BALANCE Intake/Output Summary (Last 24 hours) at 02/24/18 1057 Last data filed at 02/24/18 1000 Gross per 24 hour Intake 1430 ml Output 716 ml Net 714 ml MEDICATIONS Current Facility-Administered Medications: aspirin 81 mg chewable tab(s) 81 mg ORAL DAILY apixaban 5 mg tab(s) (ELIQUIS) 5 mg ORAL BID famotidine 20 mg tab(s) (PEPCID) 20 mg ORAL BID QUEtiapine 50 mg tablet (SEROquel) 50 mg ORAL BID dilTIAZem 100 mg in D5W 100 mL ADD-Boyden (CARDIZEM) 5 mg/hr INTRAVENOUS CONTINUOUS metoprolol tartrate (short acting) 100 mg tab(s) (LOPRESSOR) 100 mg ORAL q 8 H dexmedetomidine 400 mcg in NaCl 0.9% 100 mL (PRECEDEX) 0.2- 0.7 mcg/kg/hr INTRAVENOUS CONTINUOUS diltiazem 30 mg tab(s) (CARDIZEM) 30 mg NASOGASTRIC q 6 H 0.9% NaCl 20 mL 20 mL INTRAVENOUS PRN 0.9% NaCl 10 mL 10 mL INTRAVENOUS q 12 H 0.9% NaCl 20 mL 20 mL INTRAVENOUS PRN nystatin 5 mL oral liquid (MYCOSTATIN) 5 mL ORAL QID metoclopramide HCl 10 mg injection (REGLAN) 10 mg INTRAVENOUS q 6 H LORazepam 2 mg injection (ATIVAN) 2 mg INTRAVENOUS q 4 H PRN dextrose 40 % 15 g 15 g ORAL PRN Or glucagon 1 mg injection (GLUCAGEN) 1 mg INTRAMUSCULAR PRN Or dextrose 50% in water 25 mL syringe 12.5 g INTRAVENOUS PRN insulin regular human injection (short acting) (NovoLIN R,HumuLIN R) SUBCUTANEOUS q 6 H bisacodyl 10 mg suppository (DULCOLAX) 10 mg RECTAL DAILY PRN polyethylene glycol 3350 17 g packet (MIRALAX, GLYCOLAX) 17 g ORAL DAILY senna-docusate 8.6-50 mg 1 tablet (SENNA-S) 1 tablet ORAL BID pill splitter (patient-specific) 1 Each Miscell. (Med.Supl.;Non- Drugs) PRN Chlorhexidine Gluconate 0.12 % 15 mL (PERIDEX) 15 mL ORAL q 12 H budesonide 0.5 mg/2 mL 1 mg (PULMICORT) 1 mg INHALATION BID acetaminophen 650 mg tab(s) (TYLENOL) 650 mg ORAL q 6 H PRN dextrose 50% in water 25 mL syringe 12.5 g INTRAVENOUS PRN potassium chloride iv piggyback 20 mEq in sterile water 100 mL 20 mEq INTRAVENOUS PRN magnesium sulfate in water 2 g in sterile water 50 ml 2 g INTRAVENOUS PRN(NO DISPENSE) albuterol 2.5 mg /3 mL (0.083 %) 2.5 mg (PROVENTIL) 2.5 mg INHALATION q 2 H PRN calcium chloride 1 g in D5W 100 mL 1 g INTRAVENOUS PRN(NO DISPENSE) oxyCODONE-acetaminophen 5-325 mg 1-2 tablet (PERCOCET) 1-2 tablet ORAL q 4 H PRN morphine 2-4 mg injection 2-4 mg INTRAVENOUS q 1 H PRN ondansetron (PF) 4 mg injection (ZOFRAN) 4 mg INTRAVENOUS q 6 H PRN ipratropium-albuterol 3 mL nebulizer solution (DUONEB) 3 mL INHALATION q 4 H atorvastatin 40 mg tab(s) (LIPITOR) 40 mg ORAL AT BEDTIME Lines, Drains, and Airways Line Central Line Double Lumen 02/17/18 1310 Peripherally Inserted (PICC) Right Arm 5.0 Vietnamese 6 days Drain Indwelling Urinary Catheter 02/09/18 0838 Temperature Monitoring 16 Fr 15 days GI Feed/Drain 02/22/18 1336 Gastrostomy-Jejunostomy (G-J) Abdomen 18 Fr 1 day Airway Airway Tracheostomy 02/22/18 2 days PHYSICAL EXAM PERFORMED: General: Cardiovascular: Regular rhythm Respiratory: Clear to auscultation Abdomen: Soft and Distended Extremities: Edema- No Neurologic: Sedated Respiratory/Nursing Documentation: O2 Therapy: Ventilator (02/24/18 0814) Invasive Ventilator Mode: Pressure Regulated Volume Control (02/24/18799) Set Ventilator Respiratory Rate (BPM): 15 (02/24/18799) Total Respiratory Rate (BPM): 28 (02/24/18799) Tidal Volume Set (mL): 550 (02/24/18799) Exhaled Tidal Volume (mL): 531 (02/24/18799) Minute Volume (L): 14.1 (02/24/18799) Peak Inspiratory Pressure (cm H2O): 12 (02/24/18799) PEEP/CPAP (cm H2O): 5 (02/24/18799) HEMODYNAMIC DATA: Reviewed NUTRITION: Enteral Feeds: No NPO DATA: Diagnostic tests reviewed for today's visit, films/specimens were personally reviewed by me: Most recent labs and imaging results. LABS: Recent Labs 02/23/18 0230 02/22/18 1845 WBC 9.82* -- RBC 3.35* -- HB 10.6* -- HCT 33.2* -- MCV 99.1* -- PLT 273 -- GLUC 111* 112* BUN 27* 28* CREAT 0.63* 0.66* NA 150* 148* K 3.5 3.5 CHLOR 117* 115* CO2 27 28 CA 8.2* 8.0* MG -- 2.4 ABG: Invalid input(s): [id number] Assessment/Plan IMPRESSION: Critical Care Documentation: The patient has the following organ/system impairment(s): Anticipated post-op resp insuffiency Sp CABG D#15 Small left pleural effusion Sp trach and J-G tube PAF COA COPD/ smoker HCAP-Rx Encephalopathy-toxic/ metabolic Hypernatremia Moderate protein-calorie malnutrition MMP CRITICAL CARE PLAN: Wean off precedex Wean vent Ready for LTAC to their ICU This patient has a high probability of sudden, clinically significant deterioration, which requires the highest level of physician preparedness to intervene urgently. I managed/supervised life or organ supporting interventions that required frequent physician assessment. I devoted my full attention to the direct care of this patient for the amount of time indicated below. Time I spent with family or surrogate(s) is included only if the patient was incapable of providing the necessary information or participating in medical decision making. Time devoted to teaching is not included. Discussed with staff/patient/family SIGNATURE: Maxx Marie MD PATIENT NAME: Jeffrey Cullen DATE: February 24, 2018 TIME: 11:00 AM GLUCOSE METER Collected: 02/24/2018 Status: F Source: [facility] 5:19 AM HEALTH SYSTEM REPOSITORY TYPE CODE TESTS RESULT OUT OF REFERENCE UNITS RANGE LAB GLUBL(LOINC 70-99 mg/dL ) High Glucose Meter 103 Performed By: #### GLMET #### [facility] [address] [place] [address] HEMOGRAM Collected: 02/24/2018 Status: F Source: [facility] 4:11 AM HEALTH SYSTEM REPOSITORY TYPE CODE TESTS RESULT OUT OF REFERENCE UNITS RANGE LAB WBC(LOINC) 4.23-9.07 thou/cmm High WBC 9.72 LAB RBC(LOINC) 4.63-6.08 mil/cmm Low RBC 3.32 LAB HGB(LOINC) 13.7-17.5 g/dL Low Hgb 10.6 LAB HCT(LOINC) 40.1-51.0 % Low Hct 33.1 LAB MCV(LOINC) 83.2-95.6 fl High MCV 99.7 LAB MCH(LOINC) 25.7-32.2 pg MCH 31.9 LAB MCHC(LOINC) 32.3-36.5 % Low MCHC 32.0 LAB RDW(LOINC) 11.6-14.4 % RDW 13.3 LAB RDWSD(LOINC 36.1-45.8 fl ) High RDW SD 47.5 LAB PLT(LOINC) 141-365 thou/cmm Platelet 265 LAB MPV(LOINC) 8.7-12.0 fl MPV 10.2 Performed By: #### CBC1 #### [facility] [address] [place] [address] BASIC PANEL Collected: 02/24/2018 Status: F Source: [facility] 4:11 AM HEALTH SYSTEM REPOSITORY TYPE CODE TESTS RESULT OUT OF REFERENCE UNITS RANGE LAB NA(LOINC) 136-145 mEq/L Sodium High Blood 147 LAB K(LOINC) 3.5-5.1 mEq/L Low Potassium Blood 3.3 LAB CL(LOINC) 98-107 mEq/L Chloride High Blood 115 LAB CO2(LOINC) 21-32 mEq/L CO2 Blood 29 LAB GLU(LOINC) 70-99 mg/dL Glucose High Blood 100 LAB BUN(LOINC) 7-18 mg/dL BUN High Blood 22 LAB CREA(LOINC 0.67-1.17 mg/dL ) Low Creatinine Blood 0.64 LAB CA(LOINC) 8.5-10.1 mg/dL Low Calcium Blood 8.4 LAB ANGAP(LOIN 8-16 C) Low Anion Gap 6 Performed By: #### P8 #### [place] [address] MDRD GFR Collected: 02/24/2018 Status: F Source: [facility] 4:11 AM HEALTH SYSTEM REPOSITORY TYPE CODE TESTS RESULT OUT OF RANGE REFERENCE UNITS LAB GFRFN(LOINC >60mL/min/1.73m ) 2 eGFR >60 Result Comment: If the patient is , multiply the result by 1.210. Performed By: #### GFR #### [place] [address] GLUCOSE METER Collected: 02/23/2018 Status: F Source: [facility] 11:23 PM HEALTH SYSTEM REPOSITORY TYPE CODE TESTS RESULT OUT OF REFERENCE UNITS RANGE LAB GLUBL(LOINC 70-99 mg/dL ) High Glucose Meter 109 Performed By: #### GLMET #### [place] [address] GLUCOSE METER Collected: 02/23/2018 Status: F Source: [facility] 5:48 PM HEALTH SYSTEM REPOSITORY TYPE CODE TESTS RESULT OUT OF REFERENCE UNITS RANGE LAB GLUBL(LOINC 70-99 mg/dL ) Glucose Meter 95 Result Comment: RN NOTIFIED Performed By: #### GLMET #### [place] [address] SODIUM BLOOD Collected: 02/23/2018 Status: F Source: [facility] 5:38 PM HEALTH SYSTEM REPOSITORY TYPE CODE TESTS RESULT OUT OF REFERENCE UNITS RANGE LAB NA(LOINC) 136-145 mEq/L High Sodium Blood 147 Performed By: #### NA #### [facility] [address] [place] [address] GLUCOSE METER Collected: 02/23/2018 Status: F Source: [facility] 4:26 PM HEALTH SYSTEM REPOSITORY TYPE CODE TESTS RESULT OUT OF REFERENCE UNITS RANGE LAB GLUBL(LOINC 70-99 mg/dL ) High Glucose Meter 100 Performed By: #### GLMET #### [facility] [address] [address] NUTRITION Observed: 02/23/2018 Status: COMPLETED Source: [place] 2:38 PM CLINIC OTHER CAMPUS REPOSITORY HNO ID: [id number] Author: Sandra Alvarado) TREASURE Almaguer Service: Nutrition Therapy Author Type: Registered Dietitian Type: Nutrition Filed: 02/23/2018 2:57 PM Note Text: NUTRITION THERAPY PROGRESS NOTE SERVICE DATE: 02/23/2018 SERVICE TIME: 2:38 PM RECOMMENDED DIAGNOSIS: MODERATE PROTEIN-CALORIE MALNUTRITION per Registered Dietitian on 02/20/18 In the context of Acute Illness or Injury based on: Insufficient Energy Intake: <75% for >7 days Subcutaneous Fat Loss: Mild Loss Muscle Loss Moderate Loss NUTRITION CARE PLAN Problem, Etiology and Signs/Symptoms: Suboptimal oral intake related to respiratory status as evidenced by NPO with tube feeding, vent support, and moderate muscle loss. Intervention: Impact Peptide at goal rate 56 ml/hr to provide via PEG-J tube 1344 ml product - 2016 kcal, 126.3 gm protein, and 1034.9 ml free water. Flush at 200 ml 6 times per day. (Fluid volume with TF over 24 hours - 2234 ml) Propofol off at present. No IV fluids noted Collaborated with Maxx Marie MD and orders written. Coordination of Care: Nursing Monitor and Evaluation: Goal: Meet >75% of estimated needs Monitor fluid/electrolyte balance Monitor labs, I/Os, vital signs, weight Monitor tolerance to tube feeding Discharge Nutrition Recommendations: Enteral/Tube feeding: Impact Peptide at 56 ml/hr. Flush with 200 ml 6 times per day. Chart reviewed for follow-up from tube feeding Per HPI: 67 year old male patient with no known PMH other than long history of smoking ( 2packs a day for more than 30 years) Earlier 02/07/18?he was sitting and suddenly started having substernal chest pain, pain is intermittent with no radiation, he felt nauseas but no vomiting and no diaphoresis.This pain kept coming so he went to the ER. Underwent LHC on 02/08/18 showed need for CABG, underwent CABG on 02/09/18. Chest tubed pulled 02/11. ?Remains on vent support. Noted residuals and tube feeding held at present. ?Started on Reglan daily from PRN. 02/16/18 Patient remains intubated this AM. No significant residuals noted greater than 100 cc. Toleration of tube feeding improving. 02/20/18 Remains on vent support, tube feeding held at present for residual 280 ml. PICC placed on 02/17. Noted plan for trach and PEG, if unable to extubate soon. Met with RN reports residual decreasing with plans to restart TF. BM 02/16, RN aware, reported likely to give dulcolax suppository today. Interval History: 02/22 Trach and PEG-J placed. Remains on vent support. TF to restart today at 16:00. Noted last BM 02/16. RN reports giving suppository 02/23. Flush increased with noted increasing sodium. Propofol off at present. Will continue to follow for tube feeding tolerance. Noted referral to [facility]. ACTIVE PROBLEM LIST Inguinal Hernia Without Mention of Obstruction Or Gangrene, Unilateral Or Unspecified, (Not Specified As Recurrent) Nstemi (Non-St Elevated Myocardial Infarction) (Hcc) Nsvt (Nonsustained Ventricular Tachycardia) (Hcc) Nicotine use disorder, F17.2 Malnutrition of Moderate Degree (Hcc) No past medical history on file. PAST SURGICAL HISTORY Procedure Laterality Date - ORTHOPEDICS SURGERY HX - REPAIR ING HERNIA,5+Y/O,REDUCIBL 1989 Hernia repair, inguinal,left Present Diet Order: NPO, diet progressed by RD to restart TF post PEJ placement Nutritional Intake: 0-25% estimated energy needs over the past 3 day(s), on 02/20 >75% estimated energy needs over the past 5 day(s), noted TF held today for residual 280 ml. Noted was held on 02/13 for high residual 480 ml and then restarted on 02/15. Was NPO 4 days prior to TF start. Admission Weight: 104.3 kg (229 lb 15 oz) Current Weight: 109.5 kg (241 lb 6.5 oz) Body mass index is 33.68 kg/(m2). class 1 obesity Noted weight increase 5.2 kg since admission over the past 16 days. Edema generalized edema 1+ and bilateral lower extremities 1+ Last 12 Encounter Wt Readings: Date: Wt: 02/07/2018 109.5 kg (241 lb 6.5 oz) 02/07/2018 104.3 kg (230 lb) 12/04/2007 100.2 kg (221 lb) ALLERGIES No Known Allergies Sodium Date Value Ref Range Status 02/23/2018 150 (H) 136 - 145 mEq/L Final 02/22/2018 148 (H) 136 - 145 mEq/L Final 02/22/2018 147 (H) 136 - 145 mEq/L Final Current Facility-Administered Medications: apixaban 5 mg tab(s) (ELIQUIS) 5 mg ORAL BID dilTIAZem 100 mg in D5W 100 mL ADD-Boyden (CARDIZEM) 5 mg/hr INTRAVENOUS CONTINUOUS metoprolol tartrate (short acting) 100 mg tab(s) (LOPRESSOR) 100 mg ORAL q 8 H dexmedetomidine 400 mcg in NaCl 0.9% 100 mL (PRECEDEX) 0.2- 0.7 mcg/kg/hr INTRAVENOUS CONTINUOUS diltiazem 30 mg tab(s) (CARDIZEM) 30 mg NASOGASTRIC q 6 H 0.9% NaCl 20 mL 20 mL INTRAVENOUS PRN 0.9% NaCl 10 mL 10 mL INTRAVENOUS q 12 H 0.9% NaCl 20 mL 20 mL INTRAVENOUS PRN nystatin 5 mL oral liquid (MYCOSTATIN) 5 mL ORAL QID metoclopramide HCl 10 mg injection (REGLAN) 10 mg INTRAVENOUS q 6 H LORazepam 2 mg injection (ATIVAN) 2 mg INTRAVENOUS q 4 H PRN dextrose 40 % 15 g 15 g ORAL PRN Or glucagon 1 mg injection (GLUCAGEN) 1 mg INTRAMUSCULAR PRN Or dextrose 50% in water 25 mL syringe 12.5 g INTRAVENOUS PRN insulin regular human injection (short acting) (NovoLIN R,HumuLIN R) SUBCUTANEOUS q 6 H bisacodyl 10 mg suppository (DULCOLAX) 10 mg RECTAL DAILY PRN polyethylene glycol 3350 17 g packet (MIRALAX, GLYCOLAX) 17 g ORAL DAILY senna-docusate 8.6-50 mg 1 tablet (SENNA-S) 1 tablet ORAL BID pill splitter (patient-specific) 1 Each Miscell. (Med.Supl.;Non- Drugs) PRN Chlorhexidine Gluconate 0.12 % 15 mL (PERIDEX) 15 mL ORAL q 12 H budesonide 0.5 mg/2 mL 1 mg (PULMICORT) 1 mg INHALATION BID acetaminophen 650 mg tab(s) (TYLENOL) 650 mg ORAL q 6 H PRN dextrose 50% in water 25 mL syringe 12.5 g INTRAVENOUS PRN potassium chloride iv piggyback 20 mEq in sterile water 100 mL 20 mEq INTRAVENOUS PRN magnesium sulfate in water 2 g in sterile water 50 ml 2 g INTRAVENOUS PRN(NO DISPENSE) albuterol 2.5 mg /3 mL (0.083 %) 2.5 mg (PROVENTIL) 2.5 mg INHALATION q 2 H PRN calcium chloride 1 g in D5W 100 mL 1 g INTRAVENOUS PRN(NO DISPENSE) oxyCODONE-acetaminophen 5-325 mg 1-2 tablet (PERCOCET) 1-2 tablet ORAL q 4 H PRN morphine 2-4 mg injection 2-4 mg INTRAVENOUS q 1 H PRN ondansetron (PF) 4 mg injection (ZOFRAN) 4 mg INTRAVENOUS q 6 H PRN propofol infusion (DIPRIVAN) 5-50 mcg/kg/min INTRAVENOUS CONTINUOUS ipratropium-albuterol 3 mL nebulizer solution (DUONEB) 3 mL INHALATION q 4 H atorvastatin 40 mg tab(s) (LIPITOR) 40 mg ORAL AT BEDTIME Surgical Incision 02/09/18 Chest - Midsternal (Active) Dressing Status Initial Post-Op Dressing Intact 02/23/2018 7:00 AM Frequency of Dressing Change As Needed 02/23/2018 7:00 AM Incision Closures Topical Skin Adhesive 02/23/2018 7:00 AM Drainage Description None 02/23/2018 7:00 AM Drainage Amount None 02/23/2018 7:00 AM Edges Intact 02/23/2018 7:00 AM Hematoma No 02/23/2018 7:00 AM Number of days:14 Surgical Incision 02/09/18 Leg - Left (Active) Dressing Status Initial Post-Op Dressing Intact 02/23/2018 7:00 AM Frequency of Dressing Change As Needed 02/23/2018 7:00 AM Incision Closures Topical Skin Adhesive 02/23/2018 7:00 AM Drainage Description None 02/23/2018 7:00 AM Drainage Amount None 02/23/2018 7:00 AM Edges Intact 02/23/2018 7:00 AM Hematoma No 02/23/2018 7:00 AM Number of days:14 MNT Billing Type: Initial Assess/15 min 3 units SIGNATURE: Sandra Almaguer RD, LD PATIENT NAME: Jeffrey Cullen DATE: February 23, 2018 TIME: 2:38 PM PAGER: [phone] CASE MANAGEM Observed: 02/23/2018 Status: COMPLETED Source: [place] 11:18 AM [facility] OTHER CAMPUS REPOSITORY O ID: [id number] Author: Tessa (Rn) RAINA Maldonado Service: Care Management Author Type: Registered Nurse Type: Care Mgt Progress Note Filed: 02/23/2018 11:22 AM Note Text: CARE MANAGEMENT PROGRESS NOTE SERVICE DATE: 02/23/2018 SERVICE TIME: 11:18 AM LOS: 16 days Chart reviewed. Patient remains in CVICU. On vent, trach and PEG placed 02/22. Spoke with [facility] [phone], [facility] is able to accept patient on Diprivan and Propofol drips. Patient does not need precert prior to DC. Discussed with Dr. Marin and Dr. Marie. Continue to follow to assist with transitional needs. SIGNATURE: Tessa Maldonado RN PATIENT NAME: Jeffrey Cullen DATE: February 23, 2018 TIME: 11:18 AM PAGER/CONTACT #: [phone] GLUCOSE METER Collected: 02/23/2018 Status: F Source: [facility] 11:16 AM HEALTH SYSTEM REPOSITORY TYPE CODE TESTS RESULT OUT OF REFERENCE UNITS RANGE LAB GLUBL(LOINC 70-99 mg/dL ) High Glucose Meter 104 Performed By: #### GLMET #### [facility] [address] [id number] PROGRESS Observed: 02/23/2018 Status: COMPLETED Source: [place] 10:57 AM CLINIC OTHER CAMPUS REPOSITORY HNO ID: [id number] Author: Misti Stein (Pa) Service: Cardiac Surgery Author Type: Physician Tool Inspector Type: Progress Notes Filed: 02/23/2018 11:26 AM Note Text: CARDIOTHORACIC SURGERY POSTOP PROGRESS NOTE SERVICE DATE: 02/23/2018 SERVICE TIME: 10:59 AM Subjective S/P SURGERY: Procedure(s) (LRB): TRACHEOSTOMY ADULT (N/A) DATE OF SURGERY: 02/22/2018 POSTOP DAY #14 LOS: 16 INTERVAL EVENTS / PERTINENT ROS: Patient sedated and comfortable post trach and G/J-Tube placement. Objective Admission Weight: 104.3 kg (229 lb 15 oz) BP 104/60 Pulse 66 Temp 36.3 ?C (97.3 ?F) Resp 14 Ht 180.3 cm (5' 10.98) Wt 109.5 kg (241 lb 6.5 oz) SpO2 99% BMI 33.68 kg/m2 Body surface area is 2.34 meters squared. Min/Max/Average Temperature AND Blood Pressure: Temp (24hrs), Av.6 ?C (97.8 ?F), Min:36.1 ?C (97 ?F), Max:37.1 ?C (98.8 ?F) Systolic (24hrs), Av , Min:69 , Max:153 Diastolic (24hrs), Av, Min:55, Max:87 Intake/Output Summary (Last 24 hours) at 02/23/18 1058 Last data filed at 02/23/18 1045 Gross per 24 hour Intake 933.1 ml Output 1544 ml Net -610.9 ml TELEMETRY: NSR, but has episodes of A-Flutter PHYSICAL EXAM: General Appearance: well developed, overweight and no distress Skin: No rash on chest, arms or legs. Warm, dry. Midsternal AND SVG incision dry AND intact, without redness, drainage or edema. Lungs: clear Heart: regular rhythm Abdomen: soft, round, bowel sounds present and distended Extremities: edema: 1+ Lines, Drains, and Airways Line Central Line Double Lumen 02/17/18 1310 Peripherally Inserted (PICC) Right Arm 5.0 Vietnamese 5 days Drain Indwelling Urinary Catheter 02/09/18 0838 Temperature Monitoring 16 Fr 14 days GI Feed/Drain 02/22/18 1336 Gastrostomy-Jejunostomy (G-J) Abdomen 18 Fr less than 1 day Airway Airway Tracheostomy 02/22/18 1 day DATA: Diagnostic tests reviewed for today's visit: Chest X-RAY: b/l atelectasis and small left pleural effusion Recent Labs 02/23/18 0230 02/22/18 1845 02/22/18 0430 02/21/18 0515 RBC 3.35* -- 3.43* 3.47* WBC 9.82* -- 10.26* 10.22* HB 10.6* -- 11.0* 10.8* HCT 33.2* -- 33.7* 34.3* PLT 273 -- 272 261 NA 150* 148* 147* 147* K 3.5 3.5 3.7 3.7 CHLOR 117* 115* 114* 115* CO2 27 28 28 28 BUN 27* 28* 27* 29* CREAT 0.63* 0.66* 0.78 0.73 GLUC 111* 112* 110* 127* CA 8.2* 8.0* 8.2* 8.4* MG -- 2.4 -- -- ANION 10 9 9 8 Assessment/Plan Acute NSTEMI s/p CABG x 3 -POD#14 -c/w ASA 81, statin, BB -Post thorax vest -Start Eliquis for dual anticoagulation -d/c lovenox ?? Acute hypoxic AND hypercapneic respiratory failure 2/2 severe COPD and PNA -Vent management per pulmonary service -tracheostomy placement on 02/23/18 ?? A-Flutter -PO Diltiazem -BB at 100 q8 ?? Klebsiella and E. coli HCAP -ceftriaxone complete ?? Oral Thrush -c/w nystatin ?? Volume Overload -c/w lasix 40 PO BID ?? Constipation -c/w miralax and senokot-s ?? Leukocytosis -non-febrile -stable -c/w monitor ?? Nutrition -G/J-tube placed ?? DVT ppx -SCDs ? Dispo -Approved for [facility] -Critical care optimizing meds prior to transfer Tests/Labs Ordered: 1. BMP SIGNATURE: Misti Stein PA-C PATIENT NAME: Jeffrey Cullen DATE: February 23, 2018 TIME: 10:58 AM PAGER/CONTACT #: [phone] [phone] PROGRESS Observed: 02/23/2018 Status: COMPLETED Source: [place] 9:52 AM CLINIC OTHER CAMPUS REPOSITORY O ID: [id number] Author: Maxx Marie Service: Pulmonary Disease Author Type: Physician Type: Progress Notes Filed: 02/23/2018 10:04 AM Note Text: MICU - PROGRESS NOTE SERVICE DATE: 02/23/2018 SERVICE TIME: 9:53 AM Admission Date: 02/07/2018 AGE: [age] year old LOS: 16 days Subjective REASON FOR ICU ADMISSION: Anticipated post-op resp insufficiency Objective PROBLEMS: ACTIVE PROBLEM LIST Inguinal Hernia Without Mention of Obstruction Or Gangrene, Unilateral Or Unspecified, (Not Specified As Recurrent) Nstemi (Non-St Elevated Myocardial Infarction) ([facility]) Nsvt (Nonsustained Ventricular Tachycardia) ([facility]) Nicotine use disorder, F17.2 Malnutrition of Moderate Degree (Hcc) No past medical history on file. PAST SURGICAL HISTORY Procedure Laterality Date - ORTHOPEDICS SURGERY HX - REPAIR ING HERNIA,5+Y/O,REDUCIBL 1990 Hernia repair, inguinal,left Social History Marital status: Single Spouse name: Years of education: Number of children: Social History Main Topics Smoking status: Current Every Day Smoker Packs/day: 2.00 Years: 25.00 Types: Cigarettes Alcohol use: No Drug use: No Sexual activity: Yes Partners with: Female Other Topics Concern Service No Blood Transfusions No Caffeine Concern No Occupational Exposure No Hobby Hazards No Sleep Concern No Stress Concern No Weight Concern No Special Diet No Back Care No Exercise No Bike Helmet No Seat Belt No Self-Exams No VITAL SIGNS (last 24hrs min/max): Temp Av.6 ?C (97.8 ?F) Min: 36.1 ?C (97 ?F) Max: 37.1 ?C (98.8 ?F) Pulse Av.7 Min: 50 Max: 155 No Data Recorded Cuff BP Min: 69/57 Max: 153/81 Pain Score: 0/10 Vital signs reviewed. BP 130/70 Pulse 71 Temp (Src) 97.3 (Temporal Artery) Resp 18 Ht 5' 10.984 (1.80m) Wt 241 lb 6.5 oz (109.5kg) SpO2 97% BMI 33.68 kg/(m2). Temp (24hrs), Av.6 ?C (97.8 ?F), Min:36.1 ?C (97 ?F), Max:37.1 ?C (98.8 ?F) NET FLUID BALANCE Intake/Output Summary (Last 24 hours) at 02/23/18 0953 Last data filed at 02/23/18 0700 Gross per 24 hour Intake 733.1 ml Output 1685 ml Net -951.9 ml MEDICATIONS Current Facility-Administered Medications: apixaban 5 mg tab(s) (ELIQUIS) 5 mg ORAL BID dilTIAZem 100 mg in D5W 100 mL ADD-Boyden (CARDIZEM) 5 mg/hr INTRAVENOUS CONTINUOUS metoprolol tartrate (short acting) 100 mg tab(s) (LOPRESSOR) 100 mg ORAL q 8 H dexmedetomidine 400 mcg in NaCl 0.9% 100 mL (PRECEDEX) 0.2- 0.7 mcg/kg/hr INTRAVENOUS CONTINUOUS diltiazem 30 mg tab(s) (CARDIZEM) 30 mg NASOGASTRIC q 6 H 0.9% NaCl 20 mL 20 mL INTRAVENOUS PRN 0.9% NaCl 10 mL 10 mL INTRAVENOUS q 12 H 0.9% NaCl 20 mL 20 mL INTRAVENOUS PRN fentaNYL iv infusion 20 mcg/mL in NaCl 0.9% 100 mL 25 mcg/hr INTRAVENOUS CONTINUOUS nystatin 5 mL oral liquid (MYCOSTATIN) 5 mL ORAL QID metoclopramide HCl 10 mg injection (REGLAN) 10 mg INTRAVENOUS q 6 H LORazepam 2 mg injection (ATIVAN) 2 mg INTRAVENOUS q 4 H PRN dextrose 40 % 15 g 15 g ORAL PRN Or glucagon 1 mg injection (GLUCAGEN) 1 mg INTRAMUSCULAR PRN Or dextrose 50% in water 25 mL syringe 12.5 g INTRAVENOUS PRN insulin regular human injection (short acting) (NovoLIN R,HumuLIN R) SUBCUTANEOUS q 6 H bisacodyl 10 mg suppository (DULCOLAX) 10 mg RECTAL DAILY PRN polyethylene glycol 3350 17 g packet (MIRALAX, GLYCOLAX) 17 g ORAL DAILY senna-docusate 8.6-50 mg 1 tablet (SENNA-S) 1 tablet ORAL BID pill splitter (patient-specific) 1 Each Miscell. (Med.Supl.;Non- Drugs) PRN Chlorhexidine Gluconate 0.12 % 15 mL (PERIDEX) 15 mL ORAL q 12 H budesonide 0.5 mg/2 mL 1 mg (PULMICORT) 1 mg INHALATION BID acetaminophen 650 mg tab(s) (TYLENOL) 650 mg ORAL q 6 H PRN dextrose 50% in water 25 mL syringe 12.5 g INTRAVENOUS PRN potassium chloride iv piggyback 20 mEq in sterile water 100 mL 20 mEq INTRAVENOUS PRN magnesium sulfate in water 2 g in sterile water 50 ml 2 g INTRAVENOUS PRN(NO DISPENSE) albuterol 2.5 mg /3 mL (0.083 %) 2.5 mg (PROVENTIL) 2.5 mg INHALATION q 2 H PRN calcium chloride 1 g in D5W 100 mL 1 g INTRAVENOUS PRN(NO DISPENSE) oxyCODONE-acetaminophen 5-325 mg 1-2 tablet (PERCOCET) 1-2 tablet ORAL q 4 H PRN morphine 2-4 mg injection 2-4 mg INTRAVENOUS q 1 H PRN pantoprazole 40 mg injection (PROTONIX) 40 mg INTRAVENOUS DAILY (6 AM) ondansetron (PF) 4 mg injection (ZOFRAN) 4 mg INTRAVENOUS q 6 H PRN propofol infusion (DIPRIVAN) 5-50 mcg/kg/min INTRAVENOUS CONTINUOUS ipratropium-albuterol 3 mL nebulizer solution (DUONEB) 3 mL INHALATION q 4 H atorvastatin 40 mg tab(s) (LIPITOR) 40 mg ORAL AT BEDTIME Lines, Drains, and Airways Line Central Line Double Lumen 02/17/18 1310 Peripherally Inserted (PICC) Right Arm 5.0 Vietnamese 5 days Drain Indwelling Urinary Catheter 02/09/18 0838 Temperature Monitoring 16 Fr 14 days GI Feed/Drain 02/22/18 1336 Gastrostomy-Jejunostomy (G-J) Abdomen 18 Fr less than 1 day Airway Airway Tracheostomy 02/22/18 1 day PHYSICAL EXAM PERFORMED: General: Cardiovascular: Regular rhythm Respiratory: Clear to auscultation Abdomen: Soft and Distended Extremities: Edema- No Neurologic: Sedated Respiratory/Nursing Documentation: O2 Therapy: Ventilator (02/23/18811) Invasive Ventilator Mode: Pressure Regulated Volume Control (02/23/18811) Set Ventilator Respiratory Rate (BPM): 15 (02/23/18811) Total Respiratory Rate (BPM): 18 (02/23/18811) Tidal Volume Set (mL): 550 (02/23/18811) Exhaled Tidal Volume (mL): 546 (02/23/18811) Minute Volume (L): 14.6 (02/23/18811) Peak Inspiratory Pressure (cm H2O): 25 (02/23/18811) PEEP/CPAP (cm H2O): 5 (02/23/18811) HEMODYNAMIC DATA: Reviewed NUTRITION: Enteral Feeds: No NPO DATA: Diagnostic tests reviewed for today's visit, films/specimens were personally reviewed by me: Most recent labs and imaging results. LABS: Recent Labs 02/23/18 0230 02/22/18 1845 WBC 9.82* -- RBC 3.35* -- HB 10.6* -- HCT 33.2* -- MCV 99.1* -- PLT 273 -- GLUC 111* 112* BUN 27* 28* CREAT 0.63* 0.66* NA 150* 148* K 3.5 3.5 CHLOR 117* 115* CO2 27 28 CA 8.2* 8.0* MG -- 2.4 ABG: Invalid input(s): [id number] Assessment/Plan IMPRESSION: Critical Care Documentation: The patient has the following organ/system impairment(s): Anticipated post-op resp insuffiency Sp CABG D#14 Small left pleural effusion Sp trach and J-G tube PAF COA COPD/ smoker HCAP-Rx Encephalopathy-toxic/ metabolic Hypernatremia MMP CRITICAL CARE PLAN: Wean off diprivan and fentanyl Wean off precedex tomorrow Tube feeds to goal Wean to CPAP 5 PS 10 This patient has a high probability of sudden, clinically significant deterioration, which requires the highest level of physician preparedness to intervene urgently. I managed/supervised life or organ supporting interventions that required frequent physician assessment. I devoted my full attention to the direct care of this patient for the amount of time indicated below. Time I spent with family or surrogate(s) is included only if the patient was incapable of providing the necessary information or participating in medical decision making. Time devoted to teaching is not included. Discussed with staff/patient/family Time spent providing critical care services: 30 minutes excluding procedures. SIGNATURE: Maxx Marie MD PATIENT NAME: Jeffrey Cullen DATE: February 23, 2018 TIME: 9:53 AM CHEST 1 VIEW Observed: 02/23/2018 Status: F Source: [facility] 9:18 AM HEALTH SYSTEM REPOSITORY Performed at [facility] APPROVED BY: Tonia Washburn MD EXAM TITLE: CHEST 1 VIEW DATE: 02/23/2018 09:12 COMPARISON: Chest x-ray 02/22/2018 CLINICAL INDICATION/HISTORY: Shortness of breath, dyspnea TECHNIQUE: AP view the chest. FINDINGS: Right PICC line with its tip terminating in the region of the right atrium. There is a tracheostomy tube present. There is a defibrillator pad over the right chest. The cardiomediastinal silhouette is unremarkable. No pneumothorax. Pleural parenchymal opacities at the left lung base suggesting small left pleural effusion and adjacent atelectasis or consolidation. Mild left perihilar infiltrates unchanged. Sternotomy wires are present. IMPRESSION: Interval placement of a tracheostomy tube which appears in appropriate position. Right PICC line with its tip terminating in the region of the right atrium. Stable pleural parenchymal changes at the left lung base. Stable left perihilar infiltrate. PROGRESS Observed: 02/23/2018 Status: COMPLETED Source: [place] 9:00 AM [facility] OTHER CAMPUS REPOSITORY O ID: [id number] Author: Krystal Miller (Cns) Service: Critical Care Author Type: Nurse Specialist Type: Progress Notes Filed: 02/23/2018 9:16 AM Note Text: MICU - PROGRESS NOTE SERVICE DATE: 02/23/2018 SERVICE TIME: 9:00 AM Admission Date: 02/07/2018 AGE: [age] year old LOS: 16 days Subjective REASON FOR ICU ADMISSION: Respiratory Failure Objective PROBLEMS: ACTIVE PROBLEM LIST Inguinal Hernia Without Mention of Obstruction Or Gangrene, Unilateral Or Unspecified, (Not Specified As Recurrent) Nstemi (Non-St Elevated Myocardial Infarction) (Hcc) Nsvt (Nonsustained Ventricular Tachycardia) (Hcc) Nicotine use disorder, F17.2 Malnutrition of Moderate Degree (Hcc) No past medical history on file. PAST SURGICAL HISTORY Procedure Laterality Date - ORTHOPEDICS SURGERY HX - REPAIR ING HERNIA,5+Y/O,REDUCIBL 1989 Hernia repair, inguinal,left Social History Marital status: Single Spouse name: Years of education: Number of children: Social History Main Topics Smoking status: Current Every Day Smoker Packs/day: 2.00 Years: 25.00 Types: Cigarettes Alcohol use: No Drug use: No Sexual activity: Yes Partners with: Female Other Topics Concern Service No Blood Transfusions No Caffeine Concern No Occupational Exposure No Hobby Hazards No Sleep Concern No Stress Concern No Weight Concern No Special Diet No Back Care No Exercise No Bike Helmet No Seat Belt No Self-Exams No VITAL SIGNS (last 24hrs min/max): Temp Av.6 ?C (97.8 ?F) Min: 36.1 ?C (97 ?F) Max: 37.1 ?C (98.8 ?F) Pulse Av Min: 50 Max: 155 No Data Recorded Cuff BP Min: 69/57 Max: 153/81 Pain Score: 0/10 Vital signs reviewed. BP 106/72 Pulse 74 Temp (Src) 97.3 (Temporal Artery) Resp 23 Ht 5' 10.984 (1.80m) Wt 241 lb 6.5 oz (109.5kg) SpO2 95% BMI 33.68 kg/(m2). Temp (24hrs), Av.6 ?C (97.8 ?F), Min:36.1 ?C (97 ?F), Max:37.1 ?C (98.8 ?F) NET FLUID BALANCE Intake/Output Summary (Last 24 hours) at 02/23/18 0900 Last data filed at 02/23/18 0700 Gross per 24 hour Intake 733.1 ml Output 1685 ml Net -951.9 ml MEDICATIONS Current Facility-Administered Medications: dilTIAZem 100 mg in D5W 100 mL ADD-Boyden (CARDIZEM) 5 mg/hr INTRAVENOUS CONTINUOUS metoprolol tartrate (short acting) 100 mg tab(s) (LOPRESSOR) 100 mg ORAL q 8 H dexmedetomidine 400 mcg in NaCl 0.9% 100 mL (PRECEDEX) 0.2- 0.7 mcg/kg/hr INTRAVENOUS CONTINUOUS diltiazem 30 mg tab(s) (CARDIZEM) 30 mg NASOGASTRIC q 6 H 0.9% NaCl 20 mL 20 mL INTRAVENOUS PRN 0.9% NaCl 10 mL 10 mL INTRAVENOUS q 12 H 0.9% NaCl 20 mL 20 mL INTRAVENOUS PRN aspirin 162 mg chewable tab(s) 162 mg ORAL DAILY enoxaparin 105 mg injection (LOVENOX) 1 mg/kg/dose SUBCUTANEOUS q 12 HR fentaNYL iv infusion 20 mcg/mL in NaCl 0.9% 100 mL 25 mcg/hr INTRAVENOUS CONTINUOUS nystatin 5 mL oral liquid (MYCOSTATIN) 5 mL ORAL QID metoclopramide HCl 10 mg injection (REGLAN) 10 mg INTRAVENOUS q 6 H LORazepam 2 mg injection (ATIVAN) 2 mg INTRAVENOUS q 4 H PRN dextrose 40 % 15 g 15 g ORAL PRN Or glucagon 1 mg injection (GLUCAGEN) 1 mg INTRAMUSCULAR PRN Or dextrose 50% in water 25 mL syringe 12.5 g INTRAVENOUS PRN insulin regular human injection (short acting) (NovoLIN R,HumuLIN R) SUBCUTANEOUS q 6 H bisacodyl 10 mg suppository (DULCOLAX) 10 mg RECTAL DAILY PRN polyethylene glycol 3350 17 g packet (MIRALAX, GLYCOLAX) 17 g ORAL DAILY senna-docusate 8.6-50 mg 1 tablet (SENNA-S) 1 tablet ORAL BID pill splitter (patient-specific) 1 Each Miscell. (Med.Supl.;Non- Drugs) PRN Chlorhexidine Gluconate 0.12 % 15 mL (PERIDEX) 15 mL ORAL q 12 H budesonide 0.5 mg/2 mL 1 mg (PULMICORT) 1 mg INHALATION BID acetaminophen 650 mg tab(s) (TYLENOL) 650 mg ORAL q 6 H PRN dextrose 50% in water 25 mL syringe 12.5 g INTRAVENOUS PRN potassium chloride iv piggyback 20 mEq in sterile water 100 mL 20 mEq INTRAVENOUS PRN magnesium sulfate in water 2 g in sterile water 50 ml 2 g INTRAVENOUS PRN(NO DISPENSE) albuterol 2.5 mg /3 mL (0.083 %) 2.5 mg (PROVENTIL) 2.5 mg INHALATION q 2 H PRN calcium chloride 1 g in D5W 100 mL 1 g INTRAVENOUS PRN(NO DISPENSE) oxyCODONE-acetaminophen 5-325 mg 1-2 tablet (PERCOCET) 1-2 tablet ORAL q 4 H PRN morphine 2-4 mg injection 2-4 mg INTRAVENOUS q 1 H PRN pantoprazole 40 mg injection (PROTONIX) 40 mg INTRAVENOUS DAILY (6 AM) ondansetron (PF) 4 mg injection (ZOFRAN) 4 mg INTRAVENOUS q 6 H PRN propofol infusion (DIPRIVAN) 5-50 mcg/kg/min INTRAVENOUS CONTINUOUS ipratropium-albuterol 3 mL nebulizer solution (DUONEB) 3 mL INHALATION q 4 H atorvastatin 40 mg tab(s) (LIPITOR) 40 mg ORAL AT BEDTIME Lines, Drains, and Airways Line Central Line Double Lumen 02/17/18 1310 Peripherally Inserted (PICC) Right Arm 5.0 Vietnamese 5 days Drain Indwelling Urinary Catheter 02/09/18 0838 Temperature Monitoring 16 Fr 14 days GI Feed/Drain 02/22/18 1336 Gastrostomy-Jejunostomy (G-J) Abdomen 18 Fr less than 1 day Airway Airway Tracheostomy 02/22/18 1 day PHYSICAL EXAM PERFORMED: Cardiovascular: Irregular rhythm Respiratory: Reduced breath sounds bilat %FIO2 Min: 40 Max: 60 Sp trach Abdomen: Soft Extremities: Edema- Yes Generalized edema Neurologic: Sedated Respiratory/Nursing Documentation: O2 Therapy: Ventilator (02/23/18811) Invasive Ventilator Mode: Pressure Regulated Volume Control (02/23/18811) Set Ventilator Respiratory Rate (BPM): 15 (02/23/18811) Total Respiratory Rate (BPM): 18 (02/23/18811) Tidal Volume Set (mL): 550 (02/23/18811) Exhaled Tidal Volume (mL): 546 (02/23/18811) Minute Volume (L): 14.6 (02/23/18811) Peak Inspiratory Pressure (cm H2O): 25 (02/23/18811) PEEP/CPAP (cm H2O): 5 (02/23/18811) HEMODYNAMIC DATA: Reviewed NUTRITION: Enteral Feeds: No NPO DATA: Diagnostic tests reviewed for today's visit, films/specimens were personally reviewed by me: Most recent labs and imaging results. LABS: Recent Labs 02/23/18 0230 02/22/18 1845 WBC 9.82* -- RBC 3.35* -- HB 10.6* -- HCT 33.2* -- MCV 99.1* -- PLT 273 -- GLUC 111* 112* BUN 27* 28* CREAT 0.63* 0.66* NA 150* 148* K 3.5 3.5 CHLOR 117* 115* CO2 27 28 CA 8.2* 8.0* MG -- 2.4 ABG: Invalid input(s): [id number] Assessment/Plan IMPRESSION: Critical Care Documentation: The patient has the following organ/system impairment(s): Respiratory failure (with Hypoxemia) US/fluoroscopic guided percutaneous gastrojejunostomy tube placement,sp trach ? 1.sp CABG POD 14 2. Acute hypoxic andd hypercapneic respiratory failure 2/2 severe COPD and Klebsiella and E.Coli PNA/completed course of Ceftriaxone 3.Atrial fib/ start Eliquis today-DC lovenox tomorrow-PO cardizem 30mg q 6hrs 4. Oral thrush-nystatin 5. Volume overload-lasix 40mg po BID 6. Will neeed tube feedings for nutritional support 7. Select eval in progress 8.hypernatremia 9.hypokalemia This patient has a high probability of sudden, clinically significant deterioration, which requires the highest level of physician preparedness to intervene urgently. I managed/supervised life or organ supporting interventions that required frequent physician assessment. I devoted my full attention to the direct care of this patient for the amount of time indicated below. Time I spent with family or surrogate(s) is included only if the patient was incapable of providing the necessary information or participating in medical decision making. Time devoted to teaching is not included. Discussed with staff/patient/family Time spent providing critical care services: 35 minutes excluding procedures. SIGNATURE: Krystal Miller APRN.BEHAVIORAL HEALTH CONSULTANT PATIENT NAME: Jeffrey Cullen DATE: February 23, 2018 TIME: 9:00 AM PROGRESS Observed: 02/23/2018 Status: COMPLETED Source: [place] 8:38 AM [facility] OTHER CAMPUS REPOSITORY HNO ID: [id number] Author: Christofer Barajas Service: Otolaryngology Author Type: Physician Type: Progress Notes Filed: 02/23/2018 8:41 AM Note Text: OTOLARYNGOLOGY INPATIENT PROGRESS NOTE SERVICE DATE: 02/23/2018 Subjective INTERVAL HPI: NSTEMI 02/07/18 and had CABG 02/09/18. +encephalopathy, + acute exacerbation of COPD with HCAP, not weaning from vent. Day 1 s/p trach, no trach problems. Current Medications: Reviewed. Objective PHYSICAL EXAM: GEN: WDWN, nonresponsive. H/F/N: No palpable salivary gland, thyroid or neck mass. Trach site clean and intact. Ears: Ext. No lesions. Nose Ext. No lesion. OC/OP: Lips and gums without lesions. Tongue/oral mucosa healthy. Edentulous. VITALS: BP 131/69 Pulse 61 Temp (Src) 97.3 (Temporal Artery) Resp 15 Ht 5' 10.984 (1.80m) Wt 241 lb 6.5 oz (109.5kg) SpO2 98% BMI 33.68 kg/(m2). DATA: Diagnostic tests reviewed for today's visit: Most recent labs and imaging results. Assessment/Plan S/P Trach POD #1, no problems with trach S/P CABG, POD # 14 Acute exacerbation of COPD secondary to HCAP Acute hypoxic respiratory failure Acute encephalopathy Continue trach care. SIGNATURE: Christofer Barajas MD PATIENT NAME: Jeffrey Cullen DATE: February 23, 2018 TIME: 8:38 AM GLUCOSE METER Collected: 02/23/2018 Status: F Source: [facility] 5:26 AM HEALTH SYSTEM REPOSITORY TYPE CODE TESTS RESULT OUT OF REFERENCE UNITS RANGE LAB GLUBL(LOINC 70-99 mg/dL ) High Glucose Meter 107 Performed By: #### GLMET #### [place] [address] HEMOGRAM Collected: 02/23/2018 Status: F Source: [facility] 2:30 AM HEALTH SYSTEM REPOSITORY TYPE CODE TESTS RESULT OUT OF REFERENCE UNITS RANGE LAB WBC(LOINC) 4.23-9.07 thou/cmm High WBC 9.82 LAB RBC(LOINC) 4.63-6.08 mil/cmm Low RBC 3.35 LAB HGB(LOINC) 13.7-17.5 g/dL Low Hgb 10.6 LAB HCT(LOINC) 40.1-51.0 % Low Hct 33.2 LAB MCV(LOINC) 83.2-95.6 fl High MCV 99.1 LAB MCH(LOINC) 25.7-32.2 pg MCH 31.6 LAB MCHC(LOINC) 32.3-36.5 % Low MCHC 31.9 LAB RDW(LOINC) 11.6-14.4 % RDW 13.3 LAB RDWSD(LOINC 36.1-45.8 fl ) High RDW SD 47.3 LAB PLT(LOINC) 141-365 thou/cmm Platelet 273 LAB MPV(LOINC) 8.7-12.0 fl MPV 10.3 Performed By: #### CBC1 #### [place] [address] BASIC PANEL Collected: 02/23/2018 Status: F Source: [facility] 2:30 AM HEALTH SYSTEM REPOSITORY TYPE CODE TESTS RESULT OUT OF REFERENCE UNITS RANGE LAB NA(LOINC) 136-145 mEq/L Sodium High Blood 150 LAB K(LOINC) 3.5-5.1 mEq/L Potassium Blood 3.5 LAB CL(LOINC) 98-107 mEq/L Chloride High Blood 117 LAB CO2(LOINC) 21-32 mEq/L CO2 Blood 27 LAB GLU(LOINC) 70-99 mg/dL Glucose High Blood 111 LAB BUN(LOINC) 7-18 mg/dL BUN High Blood 27 LAB CREA(LOINC 0.67-1.17 mg/dL ) Low Creatinine Blood 0.63 LAB CA(LOINC) 8.5-10.1 mg/dL Low Calcium Blood 8.2 LAB ANGAP(LOIN 8-16 C) Anion Gap 10 Performed By: #### P8 #### [place] [address] MDRD GFR Collected: 02/23/2018 Status: F Source: [facility] 2:30 AM HEALTH SYSTEM REPOSITORY TYPE CODE TESTS RESULT OUT OF RANGE REFERENCE UNITS LAB GFRFN(LOINC >60mL/min/1.73m ) 2 eGFR >60 Result Comment: If the patient is , multiply the result by 1.210. Performed By: #### GFR #### [place] [address] GLUCOSE METER Collected: 02/23/2018 Status: F Source: [facility] 12:11 AM HEALTH SYSTEM REPOSITORY TYPE CODE TESTS RESULT OUT OF REFERENCE UNITS RANGE LAB GLUBL(LOINC 70-99 mg/dL ) High Glucose Meter 108 Result Comment: RN NOTIFIED Performed By: #### GLMET #### [place] [address] BASIC PANEL Collected: 02/22/2018 Status: F Source: [facility] 6:45 PM HEALTH SYSTEM REPOSITORY TYPE CODE TESTS RESULT OUT OF REFERENCE UNITS RANGE LAB NA(LOINC) 136-145 mEq/L Sodium High Blood 148 LAB K(LOINC) 3.5-5.1 mEq/L Potassium Blood 3.5 LAB CL(LOINC) 98-107 mEq/L Chloride High Blood 115 LAB CO2(LOINC) 21-32 mEq/L CO2 Blood 28 LAB GLU(LOINC) 70-99 mg/dL Glucose High Blood 112 LAB BUN(LOINC) 7-18 mg/dL BUN High Blood 28 LAB CREA(LOINC 0.67-1.17 mg/dL ) Low Creatinine Blood 0.66 LAB CA(LOINC) 8.5-10.1 mg/dL Low Calcium Blood 8.0 LAB ANGAP(LOIN 8-16 C) Anion Gap 9 Performed By: #### P8 #### [place] [address] MDRD GFR Collected: 02/22/2018 Status: F Source: [facility] 6:45 PM HEALTH SYSTEM REPOSITORY TYPE CODE TESTS RESULT OUT OF RANGE REFERENCE UNITS LAB GFRFN(LOINC >60mL/min/1.73m ) 2 eGFR >60 Result Comment: If the patient is , multiply the result by 1.210. Performed By: #### GFR #### [place] [address] MAGNESIUM BLOOD Collected: 02/22/2018 Status: F Source: [facility] 6:45 PM HEALTH SYSTEM REPOSITORY TYPE CODE TESTS RESULT OUT OF REFERENCE UNITS RANGE LAB MAG(LOINC) 1.6-2.6 mg/dL Magnesium Blood 2.4 Performed By: #### MAG #### [place] [address] ANES POST Observed: 02/22/2018 Status: COMPLETED Source: [place] 5:49 PM CLINIC OTHER CAMPUS REPOSITORY HNO ID: [id number] Author: Carlos Monroe Service: Anesthesiology Author Type: Physician Type: Anesthesia PostOp Filed: 02/22/2018 5:49 PM Note Text: POST ANESTHESIA EVALUATION NOTE SERVICE DATE: 02/22/2018 SERVICE TIME: 5:49 PM : 1950 Vitals: 02/22/18 0000 02/22/18 0400 02/22/18 0700 02/22/18 1100 Temp: 36.9 ?C (98.4 ?F) 36.8 ?C (98.2 ?F) 36.5 ?C (97.7 ?F) 36.1 ?C (97 ?F) 02/22/18 1545 02/22/18 1600 02/22/18 1630 02/22/18 1700 Arterial BP 1: BP: 137/73 139/75 143/78 107/62 02/22/18 1600 02/22/18 1622 02/22/18 1630 02/22/18 1704 Pulse: 62 64 65 85 02/22/18 1600 02/22/18 1622 02/22/18 1630 02/22/18 1704 Resp: 14 20 19 25 02/22/18 1600 02/22/18 1622 02/22/18 1630 02/22/18 1704 SpO2: 97% 98% 98% 98% Validated Vital Signs: Yes POST ANES STATUS: No apparent anesthetic complications. The patient is appropriately hydrated with stable respiratory and cardiovascular status. Patient has safe and adequate airway control. The patient has appropriate pain relief and no significant post operative nausea or vomiting. The patient has achieved baseline mental status. Further assessment by Anesthesia Service: None Other Remarks: SIGNATURE: Carlos Monroe MD PATIENT NAME: Jeffrey Cullen DATE: February 22, 2018 TIME: 5:49 PM PAGER/CONTACT #: [email or web address] Observed: 02/22/2018 Status: COMPLETED Source: [place] 5:48 PM CLINIC OTHER CAMPUS REPOSITORY HNO ID: [id number] Author: Prasanna Carbajal Service: Pulmonary Disease Author Type: Physician Type: Progress Notes Filed: 02/22/2018 6:00 PM Note Text: MICU - PROGRESS NOTE SERVICE DATE: 02/22/2018 SERVICE TIME: 5:48 PM Admission Date: 02/07/2018 AGE: [age] year old LOS: 15 days Subjective CTSP secondary to tachycardia. BP initially low but subsequently increased to 97/58. Patient returned after trach (#[id number]) and PEG within the hour. S/p CABG pod#13. Had been going in and out of Afib. Cardiazem PO was held today due to surgery. Thick mucus, blood tinged, small amount was suctioned prior to tachycardia. Upon arrival his HR was in the 160s, SVT. Defibrillator pads were attached. I performed neck massage and his HR started slowing down to the 120s. BP remained stable (110/60). Lopressor 5 mg was given. HR<100. Aflutter with variable block seen on monitor. Objective PROBLEMS: ACTIVE PROBLEM LIST Inguinal Hernia Without Mention of Obstruction Or Gangrene, Unilateral Or Unspecified, (Not Specified As Recurrent) Nstemi (Non-St Elevated Myocardial Infarction) (Hcc) Nsvt (Nonsustained Ventricular Tachycardia) (Hcc) Nicotine use disorder, F17.2 Malnutrition of Moderate Degree (Hcc) No past medical history on file. PAST SURGICAL HISTORY Procedure Laterality Date - ORTHOPEDICS SURGERY HX - REPAIR ING HERNIA,5+Y/O,REDUCIBL 1989 Hernia repair, inguinal,left Social History Marital status: Single Spouse name: Years of education: Number of children: Social History Main Topics Smoking status: Current Every Day Smoker Packs/day: 2.00 Years: 25.00 Types: Cigarettes Alcohol use: No Drug use: No Sexual activity: Yes Partners with: Female Other Topics Concern Service No Blood Transfusions No Caffeine Concern No Occupational Exposure No Hobby Hazards No Sleep Concern No Stress Concern No Weight Concern No Special Diet No Back Care No Exercise No Bike Helmet No Seat Belt No Self-Exams No VITAL SIGNS (last 24hrs min/max): Temp Av.7 ?C (98 ?F) Min: 36.1 ?C (97 ?F) Max: 37 ?C (98.6 ?F) Pulse Av.3 Min: 31 Max: 85 No Data Recorded Cuff BP Min: 107/62 Max: 153/81 Pain Score: 0/10 Vital signs reviewed. BP 107/62 Pulse 85 Temp (Src) 97 (Temporal Artery) Resp 25 Ht 5' 10.984 (1.80m) Wt 241 lb 6.5 oz (109.5kg) SpO2 98% BMI 33.68 kg/(m2). Temp (24hrs), Av.7 ?C (98 ?F), Min:36.1 ?C (97 ?F), Max:37 ?C (98.6 ?F) NET FLUID BALANCE Intake/Output Summary (Last 24 hours) at 02/22/18 1748 Last data filed at 02/22/18 1630 Gross per 24 hour Intake 1303 ml Output 2259 ml Net -956 ml MEDICATIONS Current Facility-Administered Medications: [MAR Hold due to Transfer] metoprolol tartrate (short acting) 100 mg tab(s) (LOPRESSOR) 100 mg ORAL q 8 H [JAN Hold due to Transfer] dexmedetomidine 400 mcg in NaCl 0.9% 100 mL (PRECEDEX) 0.2-0.7 mcg/kg/hr INTRAVENOUS CONTINUOUS [JAN Hold due to Transfer] diltiazem 30 mg tab(s) (CARDIZEM) 30 mg NASOGASTRIC q 6 H [JAN Hold due to Transfer] 0.9% NaCl 20 mL 20 mL INTRAVENOUS PRN [JAN Hold due to Transfer] 0.9% NaCl 10 mL 10 mL INTRAVENOUS q 12 H [JAN Hold due to Transfer] 0.9% NaCl 20 mL 20 mL INTRAVENOUS PRN [JAN Hold due to Transfer] aspirin 162 mg chewable tab(s) 162 mg ORAL DAILY [JAN Hold due to Transfer] enoxaparin 105 mg injection (LOVENOX) 1 mg/kg/dose SUBCUTANEOUS q 12 HR [JAN Hold due to Transfer] fentaNYL iv infusion 20 mcg/mL in NaCl 0.9% 100 mL 25 mcg/hr INTRAVENOUS CONTINUOUS [JAN Hold due to Transfer] nystatin 5 mL oral liquid (MYCOSTATIN) 5 mL ORAL QID [JAN Hold due to Transfer] metoclopramide HCl 10 mg injection (REGLAN) 10 mg INTRAVENOUS q 6 H [JAN Hold due to Transfer] LORazepam 2 mg injection (ATIVAN) 2 mg INTRAVENOUS q 4 H PRN [MAR Hold due to Transfer] dextrose 40 % 15 g 15 g ORAL PRN Or [JAN Hold due to Transfer] glucagon 1 mg injection (GLUCAGEN) 1 mg INTRAMUSCULAR PRN Or [JAN Hold due to Transfer] dextrose 50% in water 25 mL syringe 12.5 g INTRAVENOUS PRN [MAR Hold due to Transfer] insulin regular human injection (short acting) (NovoLIN R,HumuLIN R) SUBCUTANEOUS q 6 H [JAN Hold due to Transfer] bisacodyl 10 mg suppository (DULCOLAX) 10 mg RECTAL DAILY PRN [MAR Hold due to Transfer] polyethylene glycol 3350 17 g packet (MIRALAX, GLYCOLAX) 17 g ORAL DAILY [MAR Hold due to Transfer] senna-docusate 8.6-50 mg 1 tablet (SENNA-S) 1 tablet ORAL BID [MAR Hold due to Transfer] pill splitter (patient-specific) 1 Each Miscell. (Med.Supl.;Non-Drugs) PRN [MAR Hold due to Transfer] Chlorhexidine Gluconate 0.12 % 15 mL (PERIDEX) 15 mL ORAL q 12 H [MAR Hold due to Transfer] budesonide 0.5 mg/2 mL 1 mg (PULMICORT) 1 mg INHALATION BID [MAR Hold due to Transfer] acetaminophen 650 mg tab(s) (TYLENOL) 650 mg ORAL q 6 H PRN [MAR Hold due to Transfer] dextrose 50% in water 25 mL syringe 12.5 g INTRAVENOUS PRN [MAR Hold due to Transfer] potassium chloride iv piggyback 20 mEq in sterile water 100 mL 20 mEq INTRAVENOUS PRN [MAR Hold due to Transfer] magnesium sulfate in water 2 g in sterile water 50 ml 2 g INTRAVENOUS PRN(NO DISPENSE) [MAR Hold due to Transfer] albuterol 2.5 mg /3 mL (0.083 %) 2.5 mg (PROVENTIL) 2.5 mg INHALATION q 2 H PRN [MAR Hold due to Transfer] calcium chloride 1 g in D5W 100 mL 1 g INTRAVENOUS PRN(NO DISPENSE) [MAR Hold due to Transfer] oxyCODONE-acetaminophen 5-325 mg 1-2 tablet (PERCOCET) 1-2 tablet ORAL q 4 H PRN [MAR Hold due to Transfer] morphine 2-4 mg injection 2-4 mg INTRAVENOUS q 1 H PRN [MAR Hold due to Transfer] pantoprazole 40 mg injection (PROTONIX) 40 mg INTRAVENOUS DAILY (6 AM) [MAR Hold due to Transfer] ondansetron (PF) 4 mg injection (ZOFRAN) 4 mg INTRAVENOUS q 6 H PRN [MAR Hold due to Transfer] propofol infusion (DIPRIVAN) 5- 50 mcg/kg/min INTRAVENOUS CONTINUOUS [MAR Hold due to Transfer] ipratropium-albuterol 3 mL nebulizer solution (DUONEB) 3 mL INHALATION q 4 H [MAR Hold due to Transfer] atorvastatin 40 mg tab(s) (LIPITOR) 40 mg ORAL AT BEDTIME Lines, Drains, and Airways Line Central Line Double Lumen 03/23/18 1310 Peripherally Inserted (PICC) Right Arm 5.0 Vietnamese 5 days Drain GI Feed/Drain 02/09/18 0800 Oral Gastric Midline 13 days Indwelling Urinary Catheter 02/09/18 0838 Temperature Monitoring 16 Fr 13 days GI Feed/Drain 02/22/18 1336 Gastrostomy-Jejunostomy (G-J) Abdomen 18 Fr less than 1 day Airway Airway Endotracheal Tube 02/09/18 0800 13 days PHYSICAL EXAM PERFORMED: General: s/p tracheostomy, eyes open but not following commands. Pupils equal Neck: trach site clean, small bloody secretions Cardiovascular: Irregular rhythm Respiratory: Reduced breath sounds bilat Abdomen: Soft Extremities: Edema- No Neurologic: recovering from anesthesia Respiratory/Nursing Documentation: O2 Therapy: Ventilator (02/22/181703) Invasive Ventilator Mode: Pressure Regulated Volume Control (02/22/181703) Set Ventilator Respiratory Rate (BPM): 15 (02/22/181703) Total Respiratory Rate (BPM): 25 (02/22/181703) Tidal Volume Set (mL): 550 (02/22/181703) Exhaled Tidal Volume (mL): 587 (02/22/181703) Minute Volume (L): 13.2 (02/22/181703) Peak Inspiratory Pressure (cm H2O): 14 (02/22/181703) PEEP/CPAP (cm H2O): 5 (02/22/181703) HEMODYNAMIC DATA: Reviewed DATA: Diagnostic tests reviewed for today's visit, films/specimens were personally reviewed by me: Most recent labs and imaging results. LABS: Recent Labs 02/22/18 0430 WBC 10.26* RBC 3.43* HB 11.0* HCT 33.7* MCV 98.3* PLT 272 GLUC 110* BUN 27* CREAT 0.78 NA 147* K 3.7 CHLOR 114* CO2 28 CA 8.2* Assessment/Plan IMPRESSION: Critical Care Documentation: The patient has the following organ/system impairment(s): SVT, Aflutter with block, s/p CABG POD#13, s/p trach/PEG, acute hypoxic respiratory failure CRITICAL CARE PLAN: ? Start cardiazem gtt ? Wean FiO2 (currently 60%, SpO2 93%) ? Monitor BP ? Check electrolytes and replace as needed ? Trach care ? EKG done, Aflutter with variable block ? Completed antibiotics ? ICU monitoring ? Supportive care This patient has a high probability of sudden, clinically significant deterioration, which requires the highest level of physician preparedness to intervene urgently. I managed/supervised life or organ supporting interventions that required frequent physician assessment. I devoted my full attention to the direct care of this patient for the amount of time indicated below. Time I spent with family or surrogate(s) is included only if the patient was incapable of providing the necessary information or participating in medical decision making. Time devoted to teaching is not included. Discussed with staff/RN/RT Time spent providing critical care services: 40 minutes excluding procedures. SIGNATURE: Prasanna Carbajal MD PATIENT NAME: Jeffrey Cullen DATE: February 22, 2018 TIME: 5:48 PM GLUCOSE METER Collected: 02/22/2018 Status: F Source: [facility] 5:47 PM HEALTH SYSTEM REPOSITORY TYPE CODE TESTS RESULT OUT OF REFERENCE UNITS RANGE LAB GLUBL(LOINC 70-99 mg/dL ) High Glucose Meter 108 Result Comment: RN NOTIFIED Performed By: #### GLMET #### [place] [address] BRIEF OP NOT Observed: 02/22/2018 Status: COMPLETED Source: [place] 5:06 PM [facility] OTHER CAMPUS REPOSITORY O ID: [id number] Author: Christofer Barajas Service: Otolaryngology Author Type: Physician Type: Brief Op Note Filed: 02/22/2018 5:11 PM Note Text: BRIEF OPERATIVE / PROCEDURE NOTE LOG ID: [id number] Surgery/Procedure Date: 02/22/2018 Incision/Procedure Start Time: 4:43 PM Incision Close/Procedure End Time: Surgeon(s)/Proceduralist(s) and Tool Inspector(s): Surgeon(s) and Role: * Christofer Barajas - Primary Clinical Cytopathologist: Flaco Akhtar SA Pre-Op/Pre-Procedure Diagnosis: Acute respiratory failure with hypoxia (HCC) [J96.01] Post-Op/Post-Procedure Diagnosis: Acute respiratory failure with hypoxia (HCC) [J96.01] Anesthesia/Procedure(s): Procedure(s) and Anesthesia Type: * TRACHEOSTOMY ADULT - General Findings: c/w dx Estimated Blood Loss: 0 ml Drains: Yes, 60 XLTCP cannula Specimens: None Complications: None Dictation: # [id number] SIGNATURE: Christofer Barajas MD PATIENT NAME: Jeffrey Cullen DATE: February 22, 2018 TIME: 5:06 PM ANES PREOP Observed: 02/22/2018 Status: COMPLETED Source: [place] 4:39 PM CLINIC OTHER CAMPUS REPOSITORY HNO ID: [id number] Author: Beata Marin Service: Anesthesiology Author Type: Physician Type: Anesthesia PreOp Filed: 02/22/2018 5:01 PM Note Text: ANESTHESIOLOGY DAY OF SURGERY NOTE SERVICE DATE: 02/22/2018 SERVICE TIME: 4:39 PM : 1950 Procedure(s) (LRB): TRACHEOSTOMY ADULT (N/A) Surgeon(s): Christofer Barajas Estimated body mass index is 33.68 kg/(m2) as calculated from the following: Height as of this encounter: 180.3 cm (5' 10.98). Weight as of this encounter: 109.5 kg (241 lb 6.5 oz). Most recent hematocrit and potassium results: Hematocrit (I-STAT) 33.7 02/22/2018 Potassium (I-STAT) 3.7 02/22/2018 ANES DOS/PREOP NOTE: Vitals: 02/22/18 1545 02/22/18 1600 02/22/18 1622 02/22/18 1630 BP: 137/73 139/75 143/78 Pulse: 64 62 64 65 Resp: 14 14 20 19 Temp: TempSrc: SpO2: 96% 97% 98% 98% Weight: Height: ACTIVE PROBLEM LIST Inguinal Hernia Without Mention of Obstruction Or Gangrene, Unilateral Or Unspecified, (Not Specified As Recurrent) Nstemi (Non-St Elevated Myocardial Infarction) (Hcc) Nsvt (Nonsustained Ventricular Tachycardia) (Hcc) Nicotine use disorder, F17.2 Malnutrition of Moderate Degree (Hcc) No past medical history on file. PAST SURGICAL HISTORY Procedure Laterality Date - ORTHOPEDICS SURGERY HX - REPAIR ING HERNIA,5+Y/O,REDUCIBL 1990 Hernia repair, inguinal,left FAMILY HISTORY Problem Relation Age of Onset - Alcohol/Drug Father - Colon Cancer Mother - Diabetes Mother Social History: Social History Substance Use Topics - Smoking status: Current Every Day Smoker Packs/day: 2.00 Years: 25.00 Types: Cigarettes - Smokeless tobacco: Not on file - Alcohol use No No current facility-administered medications on file prior to encounter. Current Outpatient Prescriptions on File Prior to Encounter: hydrocodone/ibuprofen(VICOPROFEN 7.5 MG-200 MG TAB) as necessary Current Facility-Administered Medications: [MAR Hold due to Transfer] metoprolol tartrate (short acting) 100 mg tab(s) (LOPRESSOR) 100 mg ORAL q 8 H Misti (Pa) Berkley 100 mg at 02/22/18 0537 [MAR Hold due to Transfer] dexmedetomidine 400 mcg in NaCl 0.9% 100 mL (PRECEDEX) 0.2-0.7 mcg/kg/hr INTRAVENOUS CONTINUOUS Evelin Coronado Last Rate: 18.53 mL/hr at 02/22/18 1548 0.7 mcg/kg/hr at 02/22/18 1548 [MAR Hold due to Transfer] diltiazem 30 mg tab(s) (CARDIZEM) 30 mg NASOGASTRIC q 6 H Beata Evans Sophia 30 mg at 02/22/18 0537 [MAR Hold due to Transfer] 0.9% NaCl 20 mL 20 mL INTRAVENOUS PRN Misti (Pa) Berkley [MAR Hold due to Transfer] 0.9% NaCl 10 mL 10 mL INTRAVENOUS q 12 H Misti (Pa) Berkley 10 mL at 02/20/18 0820 [MAR Hold due to Transfer] 0.9% NaCl 20 mL 20 mL INTRAVENOUS PRN Misti (Pa) Berkley [MAR Hold due to Transfer] aspirin 162 mg chewable tab(s) 162 mg ORAL DAILY Misti (Pa) Berkley 162 mg at 02/21/18 0914 [MAR Hold due to Transfer] enoxaparin 105 mg injection (LOVENOX) 1 mg/kg/dose SUBCUTANEOUS q 12 HR Misti (Pa) Berkley 105 mg at 02/21/18 1425 [MAR Hold due to Transfer] fentaNYL iv infusion 20 mcg/mL in NaCl 0.9% 100 mL 25 mcg/hr INTRAVENOUS CONTINUOUS Misti (Pa) Berkley Last Rate: 1.2 mL/hr at 02/22/18 1200 24 mcg/hr at 02/22/18 1200 [MAR Hold due to Transfer] nystatin 5 mL oral liquid (MYCOSTATIN) 5 mL ORAL QID Misti (Pa) Berkley 5 mL at 02/22/18 1006 [MAR Hold due to Transfer] metoclopramide HCl 10 mg injection (REGLAN) 10 mg INTRAVENOUS q 6 H Keon Mathurkarala 10 mg at 02/22/18 1157 [MAR Hold due to Transfer] LORazepam 2 mg injection (ATIVAN) 2 mg INTRAVENOUS q 4 H PRN Misti (Pa) Berkley 2 mg at 02/22/18 0915 [MAR Hold due to Transfer] dextrose 40 % 15 g 15 g ORAL PRN Clementine (Karine) Lexie Or [MAR Hold due to Transfer] glucagon 1 mg injection (GLUCAGEN) 1 mg INTRAMUSCULAR PRN Clementine (Karine) Lexei Or [MAR Hold due to Transfer] dextrose 50% in water 25 mL syringe 12.5 g INTRAVENOUS PRN Clementine (Karine) Lexie [MAR Hold due to Transfer] insulin regular human injection (short acting) (NovoLIN R,HumuLIN R) SUBCUTANEOUS q 6 H Clementine (Karine) Lexie 2 Units at 02/20/18 1151 [MAR Hold due to Transfer] bisacodyl 10 mg suppository (DULCOLAX) 10 mg RECTAL DAILY PRN Misti (Pa) Berkley 10 mg at 02/14/18 1707 [MAR Hold due to Transfer] polyethylene glycol 3350 17 g packet (MIRALAX, GLYCOLAX) 17 g ORAL DAILY Misti (Pa) Berkley 17 g at 02/21/18 0914 [MAR Hold due to Transfer] senna-docusate 8.6-50 mg 1 tablet (SENNA-S) 1 tablet ORAL BID Misti (Pa) Berkley 1 tablet at 02/21/18 2107 [MAR Hold due to Transfer] pill splitter (patient-specific) 1 Each Miscell. (Med.Supl.;Non-Drugs) PRN Saundra Enriquez (Pharmacist) [MAR Hold due to Transfer] Chlorhexidine Gluconate 0.12 % 15 mL (PERIDEX) 15 mL ORAL q 12 H Elkin Goodman Decoy 15 mL at 02/22/18 1006 [MAR Hold due to Transfer] budesonide 0.5 mg/2 mL 1 mg (PULMICORT) 1 mg INHALATION BID Elkin Goodman Decoy 1 mg at 02/22/18 0838 [MAR Hold due to Transfer] acetaminophen 650 mg tab(s) (TYLENOL) 650 mg ORAL q 6 H PRN Clementine (Karine) Lexie [MAR Hold due to Transfer] dextrose 50% in water 25 mL syringe 12.5 g INTRAVENOUS PRN Clementine (Karine) Lexie [MAR Hold due to Transfer] potassium chloride iv piggyback 20 mEq in sterile water 100 mL 20 mEq INTRAVENOUS PRN Clementine Albrecht) Lexie 20 mEq at 02/20/18 1049 [MAR Hold due to Transfer] magnesium sulfate in water 2 g in sterile water 50 ml 2 g INTRAVENOUS PRN(NO DISPENSE) Clementine (Karine) Lexie 2 g at 02/09/18 2225 [MAR Hold due to Transfer] albuterol 2.5 mg /3 mL (0.083 %) 2.5 mg (PROVENTIL) 2.5 mg INHALATION q 2 H PRN Clementine (Karine) Lexie [MAR Hold due to Transfer] calcium chloride 1 g in D5W 100 mL 1 g INTRAVENOUS PRN(NO DISPENSE) Clementine Albrecht) Lexie [MAR Hold due to Transfer] oxyCODONE-acetaminophen 5-325 mg 1-2 tablet (PERCOCET) 1-2 tablet ORAL q 4 H PRN Clementine Albrecht) Lexie 2 tablet at 02/21/18 2310 [MAR Hold due to Transfer] morphine 2-4 mg injection 2-4 mg INTRAVENOUS q 1 H PRN Clementine (Karine) Lexie 4 mg at 02/16/18 0445 [MAR Hold due to Transfer] pantoprazole 40 mg injection (PROTONIX) 40 mg INTRAVENOUS DAILY (6 AM) Clementine Albrecht) Lexie 40 mg at 02/22/18 0538 [MAR Hold due to Transfer] ondansetron (PF) 4 mg injection (ZOFRAN) 4 mg INTRAVENOUS q 6 H PRN Clementine Albrecht) Lexie [MAR Hold due to Transfer] propofol infusion (DIPRIVAN) 5- 50 mcg/kg/min INTRAVENOUS CONTINUOUS Elkin Goodman Decoy Last Rate: 6.34 mL/hr at 02/22/18 1200 9.997 mcg/kg/min at 02/22/18 1200 [MAR Hold due to Transfer] ipratropium-albuterol 3 mL nebulizer solution (DUONEB) 3 mL INHALATION q 4 H Elkin Zuleta 3 mL at 02/22/18 1149 [MAR Hold due to Transfer] atorvastatin 40 mg tab(s) (LIPITOR) 40 mg ORAL AT BEDTIME Choco Godoy (Maco) Nasser 40 mg at 03/27/18 2107 Allergies: ALLERGIES No Known Allergies DOS EXAM: Adequate NPO status: Yes Anesthetic risks, benefits, alternatives, personnel and consent discussed: Yes Patient agrees to proceed: Yes Previous Anesthesia: No history of adverse event. Airway Assessment: Patient intubated or has existing tracheostomy. Symptoms of Sleep Apnea: NA Dentition: Edentulous Additional Physical Exam: Lungs: Patient health status unchanged since recent history and physical. See history and physical for exam findings. Cardiac: NSVT PRIOR TO TRANSPORT Additional Pertinent Findings: N/A Blood Products: Not anticipated for this procedure. Anesthetic Plan: General, Standard ASA Monitors Pain Management Plan: Parenteral or Oral ASA Class: 4 Other Medical Problems: None Chronic Beta Krystle medication administered within 24 HOURS. YES I have interviewed and examined the patient. I have reviewed the medical record and/or the pre-anesthesia evaluation, pertinent labs, and test results. Significant changes in the patient's condition since the History and Physical, not otherwise documented in primary service progress notes: No This contains updated information obtained within 48 hours of Surgery/Procedure. SIGNATURE: Carlos Monroe MD PATIENT NAME: Jeffrey Cullen DATE: February 22, 2018 TIME: 4:39 PM CSN: [id number] Opened by mistake. PROGRESS Observed: 02/22/2018 Status: COMPLETED Source: [place] 4:21 PM [facility] OTHER CAMPUS REPOSITORY [facility] ID: [id number] Author: Beata Marin Service: Cardiac Surgery Author Type: Physician Type: Progress Notes Filed: 02/22/2018 5:03 PM Note Text: CARDIOTHORACIC SURGERY POSTOP PROGRESS NOTE SERVICE DATE: 02/22/2018 SERVICE TIME: 4:21 PM Subjective S/P SURGERY: Procedure(s) (LRB): TRACHEOSTOMY ADULT (N/A) DATE OF SURGERY: 02/22/2018 POSTOP DAY #13 LOS: 15 INTERVAL EVENTS / PERTINENT ROS: Patient sedated and intubated. J-tube placed today. Trach scheduled. Objective Admission Weight: 104.3 kg (229 lb 15 oz) BP 140/75 Pulse 66 Temp 36.1 ?C (97 ?F) Resp 17 Ht 180.3 cm (5' 10.98) Wt 109.5 kg (241 lb 6.5 oz) SpO2 95% BMI 33.68 kg/m2 Body surface area is 2.34 meters squared. Min/Max/Average Temperature AND Blood Pressure: Temp (24hrs), Av.7 ?C (98 ?F), Min:36.1 ?C (97 ?F), Max:37 ?C (98.6 ?F) Systolic (24hrs), Av , Min:136 , Max:153 Diastolic (24hrs), Av, Min:73, Max:82 Intake/Output Summary (Last 24 hours) at 02/22/18 1621 Last data filed at 02/22/18 1445 Gross per 24 hour Intake 1047.9 ml Output 2388 ml Net -1340.1 ml TELEMETRY: NSR arrhythmic episodes PHYSICAL EXAM: General Appearance: well developed, overweight and no distress Skin: No rash on chest, arms or legs. Warm, dry. Midsternal AND SVG incision dry AND intact, without redness, drainage or edema. Lungs: clear and on vent Heart: Normal PMI. No lifts or thrills. Regular rate and rhythm. Normal S1, S2. No S3. No S4. No murmurs. No rubs. Abdomen: soft, round, bowel sounds present and mildly distended Neurologic/Psychiatric: sedated Extremities: edema: 1+ Lines, Drains, and Airways Line Central Line Double Lumen 02/17/18 1310 Peripherally Inserted (PICC) Right Arm 5.0 Vietnamese 5 days Drain GI Feed/Drain 02/09/18 0800 Oral Gastric Midline 13 days Indwelling Urinary Catheter 02/09/18 0838 Temperature Monitoring 16 Fr 13 days GI Feed/Drain 02/22/18 1336 Gastrostomy-Jejunostomy (G-J) Abdomen 18 Fr less than 1 day Airway Airway Endotracheal Tube 02/09/18 0800 13 days DATA: Diagnostic tests reviewed for today's visit: Chest X-RAY: No visualized pneumothorax. ?Mild left perihilar and basilar infiltrate/atelectasis is either new or increased. ?Stable small left pleural effusion. Recent Labs 02/22/18 0430 02/21/18 0515 02/20/18 0610 RBC 3.43* 3.47* 3.50* WBC 10.26* 10.22* 10.17* HB 11.0* 10.8* 11.2* HCT 33.7* 34.3* 33.7* PLT 272 261 250 NA 147* 147* 145 K 3.7 3.7 3.7 CHLOR 114* 115* 114* CO2 28 28 28 BUN 27* 29* 34* CREAT 0.78 0.73 0.84 GLUC 110* 127* 120* CA 8.2* 8.4* 8.2* ANION 9 8 7* Assessment/Plan Acute NSTEMI s/p CABG x 3 -POD#13 -c/w ASA to 162, statin, BB -Post thorax vest -lovenox for dual anticoagulation. Possible Eliquis post trach and J-tube placement ?? Acute hypoxic AND hypercapneic respiratory failure 2/2 severe COPD and PNA -Vent management per pulmonary service -ENT on consult for tracheostomy placement -Placing trach now ?? Afib -PO Diltiazem -BB at 100 q8 ?? Klebsiella and E. coli HCAP -ceftriaxone complete ?? Oral Thrush -c/w nystatin ?? Volume Overload -c/w lasix 40 PO BID ?? Constipation -c/w miralax and senokot-s -mag citrate ? Leukocytosis -non-febrile -stable -c/w monitor ?? Nutrition -J-tube placed today ?? DVT ppx -Lovenox and SCDs Dispo -Start eval for placement at [facility] Tests/Labs Ordered: 1. Mag SIGNATURE: Misti Stein PA-C PATIENT NAME: Jeffrey Cullen DATE: February 22, 2018 TIME: 4:21 PM PAGER/CONTACT #:[phone] ETX [id number] Patient seen. careplan reviewed w For trach today. P-continue current mgmnt. CASE MANAGEM Observed: 02/22/2018 Status: COMPLETED Source: [place] 3:40 PM CLINIC OTHER CAMPUS REPOSITORY [facility] ID: [id number] Author: Angelica (Rn) RAINA Malcolm Service: Care Management Author Type: Registered Nurse Type: Care Mgt Progress Note Filed: 02/22/2018 3:41 PM Note Text: Referral made to [facility], s/p G-J tube, plan to trach later today, will update [facility]. PERC PLACEMENT G-TUBE Observed: 02/22/2018 Status: F Source: [employer] [facility] [id number] 2:42 PM HEALTH SYSTEM REPOSITORY Performed at [facility] APPROVED BY: ELAINE SWEENEY MD PROCEDURE: ULTRASOUND AND FLUOROSCOPIC GUIDED PERCUTANEOUS GASTROJEJUNOSTOMY TUBE PLACEMENT DATE: 02/22/2018 12:54 INDICATION: Recent coronary artery bypass graft, respiratory failure and encephalopathy. Patient intubated. Anticipated prolonged need for enteral nutrition. ENCOUNTER: Initial COMPARISON: CT examination of the abdomen without contrast performed earlier today. TECHNIQUE/FINDINGS: The procedure was performed in the VIR Suite following informed consent and a Time Out. Informed consent was obtained from the patient's sister The patient was evaluated for the sa fety and appropriateness of conscious sedation and the Moderate Sedation Record was completed. The patient was sedated with intravenous Fentanyl and Versed administered by the radiology nurses. Pleas e refer to nursing notes for medication dosages. The patient's vital signs were monitored during the procedure by the radiology nurses. Total intraservice time (monitoring for moderate sedation) was 30 minutes. Patient monitoring: Supervised observer Ultrasound examination was performed to identify the liver border. The liver border was marked at the skin site. Ultrasound images were saved in place in the PACS system. The epigastric area was then prepped and usual sterile fashion. The stomach was insufflated with air via the indwelling nasogastric tube. Fluoroscopic examination was then performed to ensure adequate percutaneous window to the stomach. Fluoroscopic images were saved in the PACS system. Skin site for percutaneous gastrojejunostomy placement was marked. 1% lidocaine was injected for local anesthesia. Using fluoroscopic guidance, 2 separate T-fasteners were inserted into the gastric raiza men and secured to the anterior abdominal wall. Following this, percutaneous access in the stomach was then obtained with 19-gauge needle. A 0.035 inch guidewire was was then advanced into the gastric lumen. A 5 Vietnamese vascular sheath was then plac ed. Combination of 5 Vietnamese 65 cm length angled catheter and stiff Glidewire were then advanced into the proximal jejunum. Following sequential fascial dilation, a 22 Vietnamese peel-away sheath was place d and a 18 Vietnamese balloon retention gastrojejunostomy tube was advanced via the peel-away sheath into the gastric and small bowel lumen. The retention balloon was then filled with dilute contrast to en sure appropriate positioning. Cable tie was then applied to the retention disc. Gastrostomy port of the tube was placed to gravity bag. Sterile dressings were applied. No immediate complication was noted. Total Fluoroscopy Time: 4 minutes, 24 seconds Fluoroscopy dose: 177 mGy FINDINGS: Indwelling nasogastric tube noted with tip at the mid aspect of the stomach. Successful ultrasound and fluoroscopic guided placement of 18 Vietnamese, 45 cm length JONATHON balloon retention gastrojejunostomy tube with tube tip at the proximal jejunum. IMPRESSION: Successful placement of a 18 Vietnamese percutaneous gastrojejunostomy tube as described. Plan for patient to remain nothing by mouth overnight and to start tube feeds tomorrow if no clinical signs of peritonitis. BRIEF OP NOT Observed: 02/22/2018 Status: COMPLETED Source: [place] 2:27 PM [facility] OTHER CAMPUS REPOSITORY [facility] ID: [id number] Author: Elaine Sweeney Service: Radiology Author Type: Physician Type: Brief Op Note Filed: 02/22/2018 2:28 PM Note Text: INTERVENTIONAL RADIOLOGY POST PROCEDURE NOTE DATE: 02/22/18 NAME: Jeffrey Cullen LOG ID: [id number] Pre-Procedure Diagnosis: S/p CABG, encephalopathy, respiratory failure. Need for prolonged enteral nutrition. Post Procedure Diagnosis: Same. Senior Controller: Dr. Elaine Sweeney Procedure: US/fluoroscopic guided percutaneous gastrojejunostomy tube placement Anesthesia: Procedural Sedation Findings: Successful placement of 18 Vietnamese percutaneous gastrojejunostomy tube with tip in the proximal jejunum. Estimated Blood Loss: Minimal (Less Than 25 mL). Specimen: None Complications: None Full report with procedural details to follow and will become available under Imaging Reports. Please contact for any questions or concerns. SIGNATURE: Elaine Sweeney MD PATIENT NAME: Jeffrey Cullen DATE: February 22, 2018 TIME: 2:27 PM PAGER/CONTACT #: [phone] [phone] W/O Observed: 02/22/2018 Status: F Source: [place] [facility] GENERAL CONTRAST 12:25 PM HEALTH SYSTEM REPOSITORY Performed at [facility] APPROVED BY: Efren Benson MD EXAMINATION: CT ABDOMEN WITHOUT IV CONTRAST CLINICAL HISTORY: Treatment planning for gastrojejunostomy insertion. TECHNIQUE: Non-IV contrast imaging of the abdomen was performed using standard technique, scanning from just above the dome of the diaphragm to the iliac crest. Unenhanced imaging is limited for the ev aluation of some intra-abdominal pathology. Sagittal and coronal reconstructions were performed. MQ: [id number] Contrast: IV: None Oral: None CT Radiation dose: Integrated Dose-length product (DLP) for this visit = 675 mGy*cm. CT Dose Reduction Employed: Automated exposure control (AEC) was used. COMPARISON: None. RESULT: Liver: Unremarkable. Biliary: The gallbladder is distended. No bile duct dilatation. Spleen: Unremarkable. Pancreas: Unremarkable. Adrenals: Unremarkable. Kidneys: 4.5 cm suspected cyst in the upper pole of the right kidney. Otherwise both kidneys show no obvious hydronephrosis. GI Tract: Moderate amount of stool is seen within the colon. The distal transverse colon does lie anterior to the mid body of the stomach. An enteric tube is seen within the stomach. The tip is in the distal body. Lymph Nodes: No lymphadenopathy. Mesentery/peritoneum: Trace ascites around the spleen. Retroperitoneum: No significant additional findings. Vasculature: No aneurysmal dilatation of the abdominal aorta. Bones/Soft Tissues: No significant additional findings. Lower thorax: Small left-sided pleural effusion. Atelectasis noted at both lung bases. IMPRESSION: Orientation of stomach and distal transverse colon as noted. Distended gallbladder. Pleural effusion at the left base and atelectasis at both lung bases. Moderate amount of stool throughout colon. GLUCOSE METER Collected: 02/22/2018 Status: F Source: [facility] 11:59 AM HEALTH SYSTEM REPOSITORY TYPE CODE TESTS RESULT OUT OF REFERENCE UNITS RANGE LAB GLUBL(LOINC 70-99 mg/dL ) Glucose Meter 94 Performed By: #### GLMET #### [place] [id number] CASE MANAGEM Observed: 02/22/2018 Status: COMPLETED Source: [place] 11:25 AM [facility] OTHER CAMPUS REPOSITORY [facility] ID: [id number] Author: Chandni (Specialist) John Service: Care Management Author Type: (none) Type: Care Mgt Progress Note Filed: 02/22/2018 11:25 AM Note Text: LTAC referral created to: [facility]. Awaiting acceptance. PROGRESS Observed: 02/22/2018 Status: COMPLETED Source: [place] 11:08 AM [facility] OTHER [place] REPOSITORY [facility] ID: [id number] Author: Keon Chance Service: Pulmonary Disease Author Type: Physician Type: Progress Notes Filed: 02/22/2018 11:21 AM Note Text: CRITICAL CARE PROGRESS NOTE SERVICE DATE: February 22, 2018 SERVICE TIME: 11:09 AM Admission Date: 02/07/2018 AGE: [age] year old LOS: 15 days REASON FOR ICU ADMISSION: ACTIVE PROBLEM LIST Inguinal Hernia Without Mention of Obstruction Or Gangrene, Unilateral Or Unspecified, (Not Specified As Recurrent) Nstemi (Non-St Elevated Myocardial Infarction) ([facility]) Nsvt (Nonsustained Ventricular Tachycardia) ([facility]) Nicotine use disorder, F17.2 Malnutrition of Moderate Degree ([facility]) Subjective OVERNIGHT EVENTS: Patient is resting comfortably in bed while sedated and intubated/on the ventilator without any current distress. Objective VITAL SIGNS: BP 147/82 Pulse 62 Temp 36.5 ?C (97.7 ?F) Resp 21 Ht 180.3 cm (5' 10.98) Wt 109.5 kg (241 lb 6.5 oz) SpO2 95% BMI 33.68 kg/m2 24 hour Intake AND Output: Intake/Output Summary (Last 24 hours) at 02/22/18 1109 Last data filed at 02/22/18 1000 Gross per 24 hour Intake 1437.9 ml Output 2721 ml Net -1283.1 ml PHYSICAL EXAM: Patient does not follow commands. RRR Few scattered crackles bilaterally without wheezing bilaterally anteriorly. Few scattered bowel sounds, soft, nontender, mildly distended. No pedal edema bilaterally. Poor turgor, but dry, intact skin. VENTILATOR INFORMATION: WEANING DATA: Settings: Invasive Ventilator Mode: Pressure Regulated Volume Control (02/22/18 0839) %FIO2: 40 Set Ventilator Respiratory Rate (BPM): 15 Tidal Volume Set (mL): 550 PEEP/CPAP (cm H2O): 5 Inspiratory Pressure Set (cm H2O): 0.9 Patient Data: Inspiratory:Expiratory Ratio: 1:3.4 Peak Inspiratory Pressure (cm H2O): 14 Plateau Pressure (cm H2O): 13 Weaning Data: Spontaneous Respiratory Rate (BPM): 17.7 INPATIENT MEDICATIONS: Current hospital medications: metoprolol tartrate (short acting) 100 mg tab(s) (LOPRESSOR) 100 mg ORAL q 8 H dexmedetomidine 400 mcg in NaCl 0.9% 100 mL (PRECEDEX) 0.2- 0.7 mcg/kg/hr INTRAVENOUS CONTINUOUS diltiazem 30 mg tab(s) (CARDIZEM) 30 mg NASOGASTRIC q 6 H 0.9% NaCl 20 mL 20 mL INTRAVENOUS PRN 0.9% NaCl 10 mL 10 mL INTRAVENOUS q 12 H 0.9% NaCl 20 mL 20 mL INTRAVENOUS PRN aspirin 162 mg chewable tab(s) 162 mg ORAL DAILY enoxaparin 105 mg injection (LOVENOX) 1 mg/kg/dose SUBCUTANEOUS q 12 HR fentaNYL iv infusion 20 mcg/mL in NaCl 0.9% 100 mL 25 mcg/hr INTRAVENOUS CONTINUOUS nystatin 5 mL oral liquid (MYCOSTATIN) 5 mL ORAL QID metoclopramide HCl 10 mg injection (REGLAN) 10 mg INTRAVENOUS q 6 H LORazepam 2 mg injection (ATIVAN) 2 mg INTRAVENOUS q 4 H PRN dextrose 40 % 15 g 15 g ORAL PRN glucagon 1 mg injection (GLUCAGEN) 1 mg INTRAMUSCULAR PRN dextrose 50% in water 25 mL syringe 12.5 g INTRAVENOUS PRN insulin regular human injection (short acting) (NovoLIN R,HumuLIN R) SUBCUTANEOUS q 6 H bisacodyl 10 mg suppository (DULCOLAX) 10 mg RECTAL DAILY PRN polyethylene glycol 3350 17 g packet (MIRALAX, GLYCOLAX) 17 g ORAL DAILY senna-docusate 8.6-50 mg 1 tablet (SENNA-S) 1 tablet ORAL BID pill splitter (patient-specific) 1 Each Miscell. (Med.Supl.;Non- Drugs) PRN Chlorhexidine Gluconate 0.12 % 15 mL (PERIDEX) 15 mL ORAL q 12 H budesonide 0.5 mg/2 mL 1 mg (PULMICORT) 1 mg INHALATION BID acetaminophen 650 mg tab(s) (TYLENOL) 650 mg ORAL q 6 H PRN dextrose 50% in water 25 mL syringe 12.5 g INTRAVENOUS PRN potassium chloride iv piggyback 20 mEq in sterile water 100 mL 20 mEq INTRAVENOUS PRN magnesium sulfate in water 2 g in sterile water 50 ml 2 g INTRAVENOUS PRN(NO DISPENSE) albuterol 2.5 mg /3 mL (0.083 %) 2.5 mg (PROVENTIL) 2.5 mg INHALATION q 2 H PRN calcium chloride 1 g in D5W 100 mL 1 g INTRAVENOUS PRN(NO DISPENSE) oxyCODONE-acetaminophen 5-325 mg 1-2 tablet (PERCOCET) 1-2 tablet ORAL q 4 H PRN morphine 2-4 mg injection 2-4 mg INTRAVENOUS q 1 H PRN pantoprazole 40 mg injection (PROTONIX) 40 mg INTRAVENOUS DAILY (6 AM) ondansetron (PF) 4 mg injection (ZOFRAN) 4 mg INTRAVENOUS q 6 H PRN propofol infusion (DIPRIVAN) 5-50 mcg/kg/min INTRAVENOUS CONTINUOUS ipratropium-albuterol 3 mL nebulizer solution (DUONEB) 3 mL INHALATION q 4 H atorvastatin 40 mg tab(s) (LIPITOR) 40 mg ORAL AT BEDTIME DATA: BLOOD GAS: CBC: Recent Labs 02/22/18 0430 02/21/18 0515 02/20/18 0610 02/19/18 0550 02/18/18 0520 02/17/18 1000 02/16/18 0600 WBC 10.26* 10.22* 10.17* 10.36* 10.99* 11.32* 10.92* HB 11.0* 10.8* 11.2* 11.6* 11.6* 11.7* 10.9* HCT 33.7* 34.3* 33.7* 35.2* 35.4* 35.0* 32.5* PLT 272 261 250 254 235 221 201 MCV 98.3* 98.8* 96.3* 96.4* 98.1* 95.9* 95.3 BMP: Recent Labs 02/22/18 0430 02/21/18 0515 02/20/18 0610 02/19/18 0550 02/18/18 0520 02/17/18 1000 02/16/18 0600 GLUC 110* 127* 120* 107* 122* 123* 110* NA 147* 147* 145 146* 146* 145 140 K 3.7 3.7 3.7 3.6 3.7 4.1 3.9 CHLOR 114* 115* 114* 111* 110* 110* 112* CO2 28 28 28 31 30 31 28 ANION 9 8 7* 8 10 8 4* BUN 27* 29* 34* 39* 40* 36* 32* CREAT 0.78 0.73 0.84 0.80 0.88 0.88 0.84 CHEM: Recent Labs 02/22/18 0430 02/21/18 0515 02/20/18 0610 02/19/18 0550 02/18/18 0520 02/17/18 1000 02/16/18 0600 CA 8.2* 8.4* 8.2* 8.5 8.3* 8.1* 8.1* MG -- -- -- -- -- 2.5 -- Assessment/Plan ASSESSMENT: ACTIVE PROBLEM LIST Inguinal Hernia Without Mention of Obstruction Or Gangrene, Unilateral Or Unspecified, (Not Specified As Recurrent) Nstemi (Non-St Elevated Myocardial Infarction) ([facility]) Nsvt (Nonsustained Ventricular Tachycardia) ([facility]) Nicotine use disorder, F17.2 Malnutrition of Moderate Degree ([facility]) S/P CABG, POD # 13 Acute exacerbation of COPD secondary to HCAP Acute hypoxic respiratory failure Acute encephalopathy PLAN: Continue full ventilator support. Patient is going for tracheostomy and PEJ tube placement today. Continue bronchodilators. Finished antibiotic course. Continue Reglan 10 mg IV every 6 hours. Will see if the patient tolerates tube feeds better after J tube is used starting tomorrow. Continue supportive care. Continue ICU monitoring. Spoke with [facility] patient liaison to evaluate him for placement. This patient has a high probability of sudden, clinically significant deterioration, which requires the highest level of physician preparedness to intervene urgently. I managed/supervised life or organ supporting interventions that required frequent physician assessment. I devoted my full attention to the direct care of this patient for the amount of time indicated below. Time I spent with family or surrogate(s) is included only if the patient was incapable of providing the necessary information or participating in medical decision making. Time devoted to teaching and to any procedures I billed separately is not included. PROGNOSIS: Fair Code status: Full Code. Discussed with Registered Nurse. Critical Care Documentation: The patient has the following organ/system impairment(s): Respiratory failure (Acute, with Hypoxemia) and coronary artery disease Time spent providing critical care services: 39 minutes. SIGNATURE: Keon Chance MD [facility] PAGER:[phone] DATE of SERVICE: February 22, 2018 TIME of SERVICE: 11:09 AM CHEST 1 VIEW Observed: 02/22/2018 Status: F Source: [facility] 5:59 AM HEALTH SYSTEM REPOSITORY Performed at [facility] APPROVED BY: Maximilian Pantoja MD EXAMINATION: CHEST RADIOGRAPH (PORTABLE SINGLE VIEW AP) Exam Date/Time: 02/22/2018 5:59 AM Clinical History: Status post CABG. M: XCP_3 Comparison: 1 day prior RESULT: See impression. IMPRESSION: Limitations: Limited inspiration/low lung volumes. Lines, tubes, and devices: Right arm PICC line terminates in the right atrium, consider retraction of 3 to 4 cm. Endotracheal tube is unchanged. Nasogastric tube is not well visualized. Sternal wires remain intact. Lungs and pleura: No visualized pneumothorax. Mild left perihilar and basilar infiltrate/atelectasis is either new or increased. Stable small left pleural effusion. Cardiomediastinal silhouette: Remains stable. Other: Visualized osseous structures are unchanged. GLUCOSE METER Collected: 02/22/2018 Status: F Source: [facility] 5:35 AM HEALTH SYSTEM REPOSITORY TYPE CODE TESTS RESULT OUT OF REFERENCE UNITS RANGE LAB GLUBL(LOINC 70-99 mg/dL ) High Glucose Meter 113 Performed By: #### GLMET #### [facility] [address] [place] [id number] HEMOGRAM Collected: 02/22/2018 Status: F Source: [facility] 4:30 AM HEALTH SYSTEM REPOSITORY TYPE CODE TESTS RESULT OUT OF REFERENCE UNITS RANGE LAB WBC(LOINC) 4.23-9.07 thou/cmm High WBC 10.26 LAB RBC(LOINC) 4.63-6.08 mil/cmm Low RBC 3.43 LAB HGB(LOINC) 13.7-17.5 g/dL Low Hgb 11.0 LAB HCT(LOINC) 40.1-51.0 % Low Hct 33.7 LAB MCV(LOINC) 83.2-95.6 fl High MCV 98.3 LAB MCH(LOINC) 25.7-32.2 pg MCH 32.1 LAB MCHC(LOINC) 32.3-36.5 % MCHC 32.6 LAB RDW(LOINC) 11.6-14.4 % RDW 13.3 LAB RDWSD(LOINC 36.1-45.8 fl ) High RDW SD 47.6 LAB PLT(LOINC) 141-365 thou/cmm Platelet 272 LAB MPV(LOINC) 8.7-12.0 fl MPV 10.5 Performed By: #### CBC1 #### [facility] [address] [id number] BASIC PANEL Collected: 02/22/2018 Status: F Source: [facility] 4:30 AM HEALTH SYSTEM REPOSITORY TYPE CODE TESTS RESULT OUT OF REFERENCE UNITS RANGE LAB NA(LOINC) 136-145 mEq/L Sodium High Blood 147 LAB K(LOINC) 3.5-5.1 mEq/L Potassium Blood 3.7 LAB CL(LOINC) 98-107 mEq/L Chloride High Blood 114 LAB CO2(LOINC) 21-32 mEq/L CO2 Blood 28 LAB GLU(LOINC) 70-99 mg/dL Glucose High Blood 110 LAB BUN(LOINC) 7-18 mg/dL BUN High Blood 27 LAB CREA(LOINC 0.67-1.17 mg/dL ) Creatinine Blood 0.78 LAB CA(LOINC) 8.5-10.1 mg/dL Low Calcium Blood 8.2 LAB ANGAP(LOIN 8-16 C) Anion Gap 9 Performed By: #### P8 #### [facility] [address] [place] [address] MDRD GFR Collected: 02/22/2018 Status: F Source: [facility] 4:30 AM HEALTH SYSTEM REPOSITORY TYPE CODE TESTS RESULT OUT OF RANGE REFERENCE UNITS LAB GFRFN(LOINC >60mL/min/1.73m ) 2 eGFR >60 Result Comment: If the patient is , multiply the result by 1.210. Performed By: #### GFR #### [place] [address] GLUCOSE METER Collected: 02/22/2018 Status: F Source: [facility] 12:01 AM HEALTH SYSTEM REPOSITORY TYPE CODE TESTS RESULT OUT OF REFERENCE UNITS RANGE LAB GLUBL(LOINC 70-99 mg/dL ) High Glucose Meter 110 Result Comment: RN NOTIFIED Performed By: #### GLMET #### [place] [address] OPERATIVE NO Observed: 02/22/2018 Status: COMPLETED Source: [place] 12:00 AM CLINIC OTHER CAMPUS REPOSITORY HNO ID: [id number] Author: Christofer Barajas Service: Otolaryngology Author Type: Physician Type: Operative Report Filed: 02/23/2018 7:58 AM Note Text: [facility] - Operative Report SURGEON: Christofer Barajas MD PATIENT NAME: JEFFREY CULLEN CSN: [id number] DATE OF SURGERY: 02/22/2018 DATE OF : 1950 SEX/AGE: M/67 PATIENT TYPE: I HOSP SVC: ICU LOCATION: [id number] DATE OF SURGERY: 02/22/2018 SURGEON: Christofer Barajas MD PREOPERATIVE DIAGNOSIS: Acute respiratory failure. POSTOPERATIVE DIAGNOSIS: Acute respiratory failure. OPERATION: Tracheostomy. ANESTHESIA: General endotracheal. ESTIMATED BLOOD LOSS: None. SPECIMEN: None. OPERATIVE INDICATIONS: This patient has a history of acute respiratory failure and encephalopathy. Informed consent was obtained from the patient's sister. OPERATIVE DESCRIPTION: The patient was transferred from the ICU to the OR. Adequate general endotracheal anesthesia was established through his indwelling endotracheal tube. The patient was positioned and the preoperative surgical safety check performed. Local anesthetic was injected in the low anterior neck. The patient was prepared and draped in standard fashion. A small low anterior horizontal neck incision was performed. An endoscope was inserted through the endotracheal tube until it was at the tip of the tube. These were withdrawn as a unit until they were above the proposed tracheostomy site. A 60 XLTCP cannula was placed using the Seldinger technique. The patient ventilated well through the cannula. Positioning was confirmed from above and through the cannula with the endoscope. The patient was suctioned. The cannula was sutured and tied. The endoscope and endotracheal tube were removed. The postoperative surgical safety checklist was performed. The patient was returned to the ICU in stable condition having tolerated the procedure well. Christofer Barajas MD Otolaryngology BMS:modl /[id number] GLUCOSE METER Collected: 02/21/2018 Status: F Source: [facility] 6:02 PM HEALTH SYSTEM REPOSITORY TYPE CODE TESTS RESULT OUT OF REFERENCE UNITS RANGE LAB GLUBL(LOINC 70-99 mg/dL ) High Glucose Meter 112 Result Comment: RN NOTIFIED Performed By: #### GLMET #### [place] [address] CONSULT PROG Observed: 02/21/2018 Status: COMPLETED Source: [place] 3:25 PM [facility] OTHER CAMPUS REPOSITORY HNO ID: [id number] Author: Suzanne Prasad (Pa) Service: Neurology Author Type: Physician Tool Inspector Type: Consult Progress Note Filed: 02/21/2018 3:28 PM Note Text: Neuro ICU Awaiting MRI brain to evaluate for possible embolic shower post-op CABG that may not have been visualized on CT. Further w/u unrevealing. Will follow once MRI results available for further prognostication per Dr. Ojeda. Suzanne Prasad PA-C 02/21/2018 3:27pm PROGRESS Observed: 02/21/2018 Status: COMPLETED Source: [place] 3:18 PM CLINIC OTHER CAMPUS REPOSITORY HNO ID: [id number] Author: Misti Stein (Pa) Service: Cardiac Surgery Author Type: Physician Tool Inspector Type: Progress Notes Filed: 02/21/2018 3:32 PM Note Text: CARDIOTHORACIC SURGERY POSTOP PROGRESS NOTE SERVICE DATE: 02/21/2018 SERVICE TIME: 3:19 PM Subjective S/P SURGERY: Procedure(s) (LRB): BYPASS GRAFT ARTERY CORONARY ON-PUMP SINGLE CORONARY ARTERIAL GRAFT (N/A) BYPASS GRAFT ARTERY CORONARY ON-PUMP USING VENOUS GRAFT(S) AND ARTERIAL GRAFT(S); TWO VENOUS GRAFTS (N/A) ENDOSCOPIC HARVEST VEIN FOR CORONARY ARTERY BYPASS PROCEDURE (N/A) DATE OF SURGERY: 02/09/2018 POSTOP DAY #12 LOS: 14 INTERVAL EVENTS / PERTINENT ROS: Patient still intubated, not able to follow commands, tube feed residual of 300cc this AM, giving mag citrate for BM Objective Admission Weight: 104.3 kg (229 lb 15 oz) BP 124/73 Pulse 82 Temp 36.5 ?C (97.7 ?F) Resp 27 Ht 180.3 cm (5' 10.98) Wt 109.5 kg (241 lb 6.5 oz) SpO2 98% BMI 33.68 kg/m2 Body surface area is 2.34 meters squared. Min/Max/Average Temperature AND Blood Pressure: Temp (24hrs), Av.6 ?C (97.8 ?F), Min:36.5 ?C (97.7 ?F), Max:36.6 ?C (97.9 ?F) Systolic (24hrs), Av , Min:97 , Max:146 Diastolic (24hrs), Av, Min:57, Max:84 Intake/Output Summary (Last 24 hours) at 02/21/18 1519 Last data filed at 02/21/18 1300 Gross per 24 hour Intake 1803.4 ml Output 1398 ml Net 405.4 ml TELEMETRY: normal sinus rhythm PHYSICAL EXAM: General Appearance: no distress and sedated Skin: No rash on chest, arms or legs. Warm, dry. Midsternal AND SVG incision dry AND intact, without redness, drainage or edema. Mouth/Pharynx: dentures and thrush like appearence Lungs: crackles and b/l Heart: regular rhythm and afib last PM Abdomen: soft, non-tender, bowel sounds present and mildly distended Neurologic/Psychiatric: sedated, does not follow commands on sedation vacation Extremities: edema: 1+ Lines, Drains, and Airways Line Central Line Double Lumen 02/17/18 1310 Peripherally Inserted (PICC) Right Arm 5.0 Vietnamese 4 days Drain GI Feed/Drain 02/09/18 0800 Oral Gastric Midline 12 days Indwelling Urinary Catheter 02/09/18 0838 Temperature Monitoring 16 Fr 12 days Airway Airway Endotracheal Tube 02/09/18 0800 12 days DATA: Recent Labs 02/21/18 0515 02/20/18 0610 02/19/18 0550 RBC 3.47* 3.50* 3.65* WBC 10.22* 10.17* 10.36* HB 10.8* 11.2* 11.6* HCT 34.3* 33.7* 35.2* PLT 261 250 254 NA 147* 145 146* K 3.7 3.7 3.6 CHLOR 115* 114* 111* CO2 28 28 31 BUN 29* 34* 39* CREAT 0.73 0.84 0.80 GLUC 127* 120* 107* CA 8.4* 8.2* 8.5 ANION 8 7* 8 Assessment/Plan Acute NSTEMI s/p CABG x 3 -POD#12 -c/w ASA to 162, statin, increase BB to 100q8 -Post thorax vest -lovenox for dual anticoagulation. No plavix until J-Tube/Trach placement ?? Acute hypoxic AND hypercapneic respiratory failure 2/2 severe COPD and PNA -Vent management per pulmonary service -ENT on consult for tracheostomy placement ? Afib -PO Diltiazem -Increase BB to 100q8 ?? Klebsiella and E. coli HCAP -ceftriaxone complete ?? Oral Thrush -c/w nystatin ?? Volume Overload -c/w lasix 40 PO BID ?? Constipation -c/w miralax and senokot-s -Resolved with mag citrate Leukocytosis -non-febrile -c/w monitor ?? Nutrition -300cc residual this AM -continue to monitor -J-tube ordered per critical care ?? DVT ppx -Lovenox and SCDs Tests/Labs Ordered: 1. Chest X-ray 2. BMP SIGNATURE: Misti Stein PA-C PATIENT NAME: Jeffrey Cullen DATE: February 21, 2018 TIME: 3:19 PM PAGER/CONTACT #:[phone] ETX [id number] CONSULT Observed: 02/21/2018 Status: COMPLETED Source: [place] 1:26 PM CLINIC OTHER CAMPUS REPOSITORY HNO ID: [id number] Author: Christofer Barajas Service: Otolaryngology Author Type: Physician Type: Consults Filed: 02/21/2018 1:34 PM Note Text: CONSULT: OTOLARYNGOLOGY SERVICE SERVICE DATE: 02/21/2018 REASON FOR CONSULT: trach Subjective Mr. Cullen is a 67 year old W male who presents for NSTEMI 02/07/18 and had CABG 02/09/18. +encephalopathy, + acute exacerbation of COPD with HCAP, not weaning from vent. No past medical history on file. +COPD PAST SURGICAL HISTORY Procedure Laterality Date - ORTHOPEDICS SURGERY HX - REPAIR ING HERNIA,5+Y/O,REDUCIBL 1990 Hernia repair, inguinal,left FAMILY HISTORY Problem Relation Age of Onset - Alcohol/Drug Father - Colon Cancer Mother - Diabetes Mother Social History Substance Use Topics - Smoking status: Current Every Day Smoker Packs/day: 2.00 Years: 25.00 Types: Cigarettes - Smokeless tobacco: Not on file - Alcohol use No Preadmission Medications: Reviewed. Current Medications: Reviewed. .Allergies As of Date: 02/07/2018 (No Known Allergies) Fully Assessed 02/07/2018 COMPLETE REVIEW OF SYSTEMS: UTO nonresponsive Objective PHYSICAL EXAM: GEN: WDWN, nonresponsive. H/F/N: No palpable salivary gland, thyroid or neck mass. Ears: Ext. No lesions. Nose Ext. No lesion. OC/OP: Lips and gums without lesions. Tongue/oral mucosa healthy. Edentulous. +ETT/OG. VITALS: BP 131/74 Pulse 78 Temp (Src) 97.7 (Temporal Artery) Resp 20 Ht 5' 10.984 (1.80m) Wt 241 lb 6.5 oz (109.5kg) SpO2 98% BMI 33.68 kg/(m2). DATA: Diagnostic tests reviewed for today's visit: Most recent labs and imaging results. Impression/Recommendations S/P CABG, POD # 12 Acute exacerbation of COPD secondary to HCAP Acute hypoxic respiratory failure Acute encephalopathy Agree with tracheostomy, plan for tomorrow 1630 (4:30pm). I will call sister after Dr Chance has updated her on situation. SIGNATURE: Christofer Barajas MD PATIENT NAME: Jeffrey Cullen DATE: February 21, 2018 TIME: 1:26 PM PROGRESS Observed: 02/21/2018 Status: COMPLETED Source: [place] 12:41 PM CLINIC OTHER CAMPUS REPOSITORY HNO ID: [id number] Author: Keon Chance Service: Pulmonary Disease Author Type: Physician Type: Progress Notes Filed: 02/21/2018 12:48 PM Note Text: CRITICAL CARE PROGRESS NOTE SERVICE DATE: February 21, 2018 SERVICE TIME: 12:41 PM Admission Date: 02/07/2018 AGE: [age] year old LOS: 14 days REASON FOR ICU ADMISSION: ACTIVE PROBLEM LIST Inguinal Hernia Without Mention of Obstruction Or Gangrene, Unilateral Or Unspecified, (Not Specified As Recurrent) Nstemi (Non-St Elevated Myocardial Infarction) ([facility]) Nsvt (Nonsustained Ventricular Tachycardia) ([facility]) Nicotine use disorder, F17.2 Malnutrition of Moderate Degree (Hcc) Subjective OVERNIGHT EVENTS: Patient is resting comfortably in bed while sedated and intubated/on the ventilator without any current distress. He still does not follow commands on either lesser sedation or no sedation. Objective VITAL SIGNS: BP 131/74 Pulse 78 Temp 36.5 ?C (97.7 ?F) Resp 20 Ht 180.3 cm (5' 10.98) Wt 109.5 kg (241 lb 6.5 oz) SpO2 98% BMI 33.68 kg/m2 24 hour Intake AND Output: Intake/Output Summary (Last 24 hours) at 02/21/18 1241 Last data filed at 02/21/18 0920 Gross per 24 hour Intake 1886.4 ml Output 1061 ml Net 825.4 ml PHYSICAL EXAM: Patient does not follow commands. RRR Few scattered crackles bilaterally without wheezing bilaterally anteriorly. Few scattered bowel sounds, soft, nontender, mildly distended. No pedal edema bilaterally. Poor turgor, but dry, intact skin. VENTILATOR INFORMATION: WEANING DATA: Settings: Invasive Ventilator Mode: Pressure Regulated Volume Control (02/21/18 1207) %FIO2: 40 Set Ventilator Respiratory Rate (BPM): 15 Tidal Volume Set (mL): 550 PEEP/CPAP (cm H2O): 5 Inspiratory Pressure Set (cm H2O): 0.9 Patient Data: Inspiratory:Expiratory Ratio: 1:3.1 Peak Inspiratory Pressure (cm H2O): 18 Plateau Pressure (cm H2O): 12 Weaning Data: Spontaneous Respiratory Rate (BPM): 17.7 INPATIENT MEDICATIONS: Current hospital medications: metoprolol tartrate (short acting) 100 mg tab(s) (LOPRESSOR) 100 mg ORAL q 8 H magnesium citrate 296 mL liquid 296 mL ORAL ONCE dexmedetomidine 400 mcg in NaCl 0.9% 100 mL (PRECEDEX) 0.2- 0.7 mcg/kg/hr INTRAVENOUS CONTINUOUS diltiazem 30 mg tab(s) (CARDIZEM) 30 mg NASOGASTRIC q 6 H 0.9% NaCl 20 mL 20 mL INTRAVENOUS PRN 0.9% NaCl 10 mL 10 mL INTRAVENOUS q 12 H 0.9% NaCl 20 mL 20 mL INTRAVENOUS PRN aspirin 162 mg chewable tab(s) 162 mg ORAL DAILY enoxaparin 105 mg injection (LOVENOX) 1 mg/kg/dose SUBCUTANEOUS q 12 HR fentaNYL iv infusion 20 mcg/mL in NaCl 0.9% 100 mL 25 mcg/hr INTRAVENOUS CONTINUOUS nystatin 5 mL oral liquid (MYCOSTATIN) 5 mL ORAL QID metoclopramide HCl 10 mg injection (REGLAN) 10 mg INTRAVENOUS q 6 H LORazepam 2 mg injection (ATIVAN) 2 mg INTRAVENOUS q 4 H PRN dextrose 40 % 15 g 15 g ORAL PRN glucagon 1 mg injection (GLUCAGEN) 1 mg INTRAMUSCULAR PRN dextrose 50% in water 25 mL syringe 12.5 g INTRAVENOUS PRN insulin regular human injection (short acting) (NovoLIN R,HumuLIN R) SUBCUTANEOUS q 6 H bisacodyl 10 mg suppository (DULCOLAX) 10 mg RECTAL DAILY PRN polyethylene glycol 3350 17 g packet (MIRALAX, GLYCOLAX) 17 g ORAL DAILY senna-docusate 8.6-50 mg 1 tablet (SENNA-S) 1 tablet ORAL BID pill splitter (patient-specific) 1 Each Miscell. (Med.Supl.;Non- Drugs) PRN Chlorhexidine Gluconate 0.12 % 15 mL (PERIDEX) 15 mL ORAL q 12 H budesonide 0.5 mg/2 mL 1 mg (PULMICORT) 1 mg INHALATION BID acetaminophen 650 mg tab(s) (TYLENOL) 650 mg ORAL q 6 H PRN dextrose 50% in water 25 mL syringe 12.5 g INTRAVENOUS PRN potassium chloride iv piggyback 20 mEq in sterile water 100 mL 20 mEq INTRAVENOUS PRN magnesium sulfate in water 2 g in sterile water 50 ml 2 g INTRAVENOUS PRN(NO DISPENSE) albuterol 2.5 mg /3 mL (0.083 %) 2.5 mg (PROVENTIL) 2.5 mg INHALATION q 2 H PRN calcium chloride 1 g in D5W 100 mL 1 g INTRAVENOUS PRN(NO DISPENSE) oxyCODONE-acetaminophen 5-325 mg 1-2 tablet (PERCOCET) 1-2 tablet ORAL q 4 H PRN morphine 2-4 mg injection 2-4 mg INTRAVENOUS q 1 H PRN pantoprazole 40 mg injection (PROTONIX) 40 mg INTRAVENOUS DAILY (6 AM) ondansetron (PF) 4 mg injection (ZOFRAN) 4 mg INTRAVENOUS q 6 H PRN propofol infusion (DIPRIVAN) 5-50 mcg/kg/min INTRAVENOUS CONTINUOUS ipratropium-albuterol 3 mL nebulizer solution (DUONEB) 3 mL INHALATION q 4 H atorvastatin 40 mg tab(s) (LIPITOR) 40 mg ORAL AT BEDTIME DATA: BLOOD GAS: CBC: Recent Labs 02/21/18 0515 02/20/18 0610 02/19/18 0550 02/18/18 0520 02/17/18 1000 02/16/18 0600 02/15/18 0530 WBC 10.22* 10.17* 10.36* 10.99* 11.32* 10.92* 10.27* HB 10.8* 11.2* 11.6* 11.6* 11.7* 10.9* 11.3* HCT 34.3* 33.7* 35.2* 35.4* 35.0* 32.5* 33.2* PLT 261 250 254 235 221 201 179 MCV 98.8* 96.3* 96.4* 98.1* 95.9* 95.3 94.9 BMP: Recent Labs 02/21/18 0515 02/20/18 0610 02/19/18 0550 02/18/18 0520 02/17/18 1000 02/16/18 0600 02/15/18 0530 GLUC 127* 120* 107* 122* 123* 110* 137* NA 147* 145 146* 146* 145 140 141 K 3.7 3.7 3.6 3.7 4.1 3.9 4.0 CHLOR 115* 114* 111* 110* 110* 112* 112* CO2 28 28 31 30 31 28 26 ANION 8 7* 8 10 8 4* 7* BUN 29* 34* 39* 40* 36* 32* 20* CREAT 0.73 0.84 0.80 0.88 0.88 0.84 0.83 CHEM: Recent Labs 02/21/18 0515 02/20/18 0610 02/19/18 0550 02/18/18 0520 02/17/18 1000 02/16/18 0600 02/15/18 0530 CA 8.4* 8.2* 8.5 8.3* 8.1* 8.1* 8.2* MG -- -- -- -- 2.5 -- -- Assessment/Plan ASSESSMENT: ACTIVE PROBLEM LIST Inguinal Hernia Without Mention of Obstruction Or Gangrene, Unilateral Or Unspecified, (Not Specified As Recurrent) Nstemi (Non-St Elevated Myocardial Infarction) ([facility]) Nsvt (Nonsustained Ventricular Tachycardia) ([facility]) Nicotine use disorder, F17.2 Malnutrition of Moderate Degree ([facility]) S/P CABG, POD # 12 Acute exacerbation of COPD secondary to HCAP Acute hypoxic respiratory failure Acute encephalopathy PLAN: Continue full ventilator support. Did not tolerate CPAP/PS again today for even ten minutes. Given both this and his ongoing encephalopathy, patient will need to undergo tracheostomy and PEG/J tube placement. Will discuss with the patient's sister regarding th need for both of the above procedures. Continue bronchodilators. Finished antibiotic course. Is undergoing further evaluation by Neurology. Tolerating tube feeds at goal rate variably. Continue Reglan 10 mg IV every 6 hours plus a bowel regimen. Continue supportive care. This patient has a high probability of sudden, clinically significant deterioration, which requires the highest level of physician preparedness to intervene urgently. I managed/supervised life or organ supporting interventions that required frequent physician assessment. I devoted my full attention to the direct care of this patient for the amount of time indicated below. Time I spent with family or surrogate(s) is included only if the patient was incapable of providing the necessary information or participating in medical decision making. Time devoted to teaching and to any procedures I billed separately is not included. PROGNOSIS: Fair Code status: Full Code. Discussed with Registered Nurse and ORAL AND MAXILLOFACIAL SURGEON. Critical Care Documentation: The patient has the following organ/system impairment(s): Respiratory failure (Acute, with Hypoxemia) and coronary artery disease Time spent providing critical care services: 39 minutes. SIGNATURE: Keon Chance MD [facility] PAGER:[phone] DATE of SERVICE: February 21, 2018 TIME of SERVICE: 12:41 PM GLUCOSE METER Collected: 02/21/2018 Status: F Source: [place] 11:54 AM HEALTH SYSTEM REPOSITORY TYPE CODE TESTS RESULT OUT OF REFERENCE UNITS RANGE LAB GLUBL(LOINC 70-99 mg/dL ) High Glucose Meter 131 Result Comment: RN NOTIFIED Performed By: #### GLMET #### [place] [address] ALLIED HEALTH Observed: 02/21/2018 Status: COMPLETED Source: [place] 11:27 AM CLINIC OTHER CAMPUS REPOSITORY O ID: [id number] Author: Chaplain Blanco (Chaplain) Service: Spiritual Care Author Type: Transformer Assembly Supervisor Type: Allied Health Filed: 02/21/2018 12:19 PM Note Text: SPIRITUALCARE Spiritual Care Visit- Brief Note Name: Jeffrey Cullen Date: February 21, 2018 Notes: 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 Left SC card bedside. Transformer Assembly Supervisor Signature: CHAPLAIN Francis To contact the Spiritual Care Department: Please call [phone] or Page the On-Call Transformer Assembly Supervisor at pager [phone] Thank you for the opportunity to be of service. This is an electronically created document. IF PRINTED, PLEASE DO NOT REMOVE FROM THE CHART OR MODIFY PRINTED COPY. HEMOGRAM Collected: 02/21/2018 Status: F Source: [place] 5:15 AM HEALTH SYSTEM REPOSITORY TYPE CODE TESTS RESULT OUT OF REFERENCE UNITS RANGE LAB WBC(LOINC) 4.23-9.07 thou/cmm High WBC 10.22 LAB RBC(LOINC) 4.63-6.08 mil/cmm Low RBC 3.47 LAB HGB(LOINC) 13.7-17.5 g/dL Low Hgb 10.8 LAB HCT(LOINC) 40.1-51.0 % Low Hct 34.3 LAB MCV(LOINC) 83.2-95.6 fl High MCV 98.8 LAB MCH(LOINC) 25.7-32.2 pg MCH 31.1 LAB MCHC(LOINC) 32.3-36.5 % Low MCHC 31.5 LAB RDW(LOINC) 11.6-14.4 % RDW 13.4 LAB RDWSD(LOINC 36.1-45.8 fl ) High RDW SD 48.0 LAB PLT(LOINC) 141-365 thou/cmm Platelet 261 LAB MPV(LOINC) 8.7-12.0 fl MPV 10.4 Performed By: #### CBC1 #### [place] [id number] BASIC PANEL Collected: 02/21/2018 Status: F Source: [facility] 5:15 AM [facility] SYSTEM REPOSITORY TYPE CODE TESTS RESULT OUT OF REFERENCE UNITS RANGE LAB NA(LOINC) 136-145 mEq/L Sodium High Blood 147 LAB K(LOINC) 3.5-5.1 mEq/L Potassium Blood 3.7 LAB CL(LOINC) 98-107 mEq/L Chloride High Blood 115 LAB CO2(LOINC) 21-32 mEq/L CO2 Blood 28 LAB GLU(LOINC) 70-99 mg/dL Glucose High Blood 127 LAB BUN(LOINC) 7-18 mg/dL BUN High Blood 29 LAB CREA(LOINC 0.67-1.17 mg/dL ) Creatinine Blood 0.73 LAB CA(LOINC) 8.5-10.1 mg/dL Low Calcium Blood 8.4 LAB ANGAP(LOIN 8-16 C) Anion Gap 8 Performed By: #### P8 #### [address] [address] MDRD GFR Collected: 02/21/2018 Status: F Source: [facility] 5:15 AM HEALTH SYSTEM REPOSITORY TYPE CODE TESTS RESULT OUT OF RANGE REFERENCE UNITS LAB GFRFN(LOINC >60mL/min/1.73m ) 2 eGFR >60 Result Comment: If the patient is , multiply the result by 1.210. Performed By: #### GFR #### [facility] [address] [place] [address] GLUCOSE METER Collected: 02/21/2018 Status: F Source: [facility] 5:12 AM HEALTH SYSTEM REPOSITORY TYPE CODE TESTS RESULT OUT OF REFERENCE UNITS RANGE LAB GLUBL(LOINC 70-99 mg/dL ) High Glucose Meter 124 Result Comment: RN NOTIFIED Performed By: #### GLMET #### [facility] [address] [place] [address] GLUCOSE METER Collected: 02/21/2018 Status: F Source: [facility] 12:03 AM HEALTH SYSTEM REPOSITORY TYPE CODE TESTS RESULT OUT OF REFERENCE UNITS RANGE LAB GLUBL(LOINC 70-99 mg/dL ) High Glucose Meter 122 Result Comment: RN NOTIFIED Performed By: #### GLMET #### [facility] [address] [place] [address] NURSING PROG Observed: 02/20/2018 Status: COMPLETED Source: [place] 9:15 PM CLINIC OTHER CAMPUS REPOSITORY O ID: [id number] Author: Juan (Rn) RAINA Jauregui Service: Critical Care Author Type: Registered Nurse Type: Nursing Progress Note Filed: 02/20/2018 9:24 PM Note Text: Nursing Progress Note Patient Name: Jeffrey Cullen Patient Location: [place] [address] [address]* Daily Note: 2044: Pt attempted to take to MRI, pt unable to hold head without movement for the duration of procedure. MRI mynor states pt unable to do at this time. Will continue to monitor. 2100: Spoke with pt sister in [facility], updated about MRI and pt throughout day. Pt sister would like NPCS to talk with Dr. Adrian Joy in [place] this is a family practice doctor who has previously seen pt. Dr. Joy will call throughout the day tomorrow. Trev who is the pt sister is acting DPOA, is closest relative and giving permission for Dr. Joy to call for information. Will continue to monitor. This note was completed by: Juan Jauregui RN GLUCOSE METER Collected: 02/20/2018 Status: F Source: [facility] 6:51 PM HEALTH SYSTEM REPOSITORY TYPE CODE TESTS RESULT OUT OF REFERENCE UNITS RANGE LAB GLUBL(LOINC 70-99 mg/dL ) High Glucose Meter 122 Result Comment: RN NOTIFIED Performed By: #### GLMET #### [place] [address] CASE MANAGEM Observed: 02/20/2018 Status: COMPLETED Source: [place] 5:25 PM [facility] OTHER CAMPUS REPOSITORY HNO ID: [id number] Author: Angelica MoodyRn) RAINA Malcolm Service: Care Management Author Type: Registered Nurse Type: Care Mgt Progress Note Filed: 02/20/2018 5:26 PM Note Text: [facility] updated, cont to follow CONSULT Observed: 02/20/2018 Status: COMPLETED Source: [place] 1:37 PM [facility] OTHER [place] REPOSITORY HNO ID: [id number] Author: Bharat Ojeda Service: Neurology Author Type: Physician Type: Consults Filed: 02/20/2018 3:38 PM Note Text: INITIAL CONSULT NEURO ICU SERVICE DATE: 02/20/2018 SERVICE TIME: 1:37 PM Team Requesting Consult: MICU Current Attending Provider: Beata Marin Neurology was asked by the MICU team to evaluate Jeffrey Cullen, a 67 year old male for a chief complaint of Acute Encephalopathy. Our recommendations of care will be communicated by shared medical record. Reason for Evaluation: Acute encephalopathy Subjective HPI: This is Mr. Jeffrey Cullen a 67 year old male s/p 3v CABG. Post-operatively, patient has become agitated and writhing about requiring restraints. He is intubated and sedated on Precedex, propofol and fentanyl. He has not tolerated sedation holidays. While off sedation, patient does not follow commands or demonstrate purposeful movement per nurse. He does not track or focus. He has been treated for COPD exacerbation secondary to HCAP. On abx. And improving. VSS, not requiring pressor support at this time. Current hospital medications: dexmedetomidine 400 mcg in NaCl 0.9% 100 mL (PRECEDEX) 0.2- 0.7 mcg/kg/hr INTRAVENOUS CONTINUOUS diltiazem 30 mg tab(s) (CARDIZEM) 30 mg NASOGASTRIC q 6 H 0.9% NaCl 20 mL 20 mL INTRAVENOUS PRN 0.9% NaCl 10 mL 10 mL INTRAVENOUS q 12 H 0.9% NaCl 20 mL 20 mL INTRAVENOUS PRN aspirin 162 mg chewable tab(s) 162 mg ORAL DAILY metoprolol tartrate (short acting) (LOPRESSOR) tab(s) 75 mg 75 mg ORAL q 8 H enoxaparin 105 mg injection (LOVENOX) 1 mg/kg/dose SUBCUTANEOUS q 12 HR fentaNYL iv infusion 20 mcg/mL in NaCl 0.9% 100 mL 25 mcg/hr INTRAVENOUS CONTINUOUS nystatin 5 mL oral liquid (MYCOSTATIN) 5 mL ORAL QID metoclopramide HCl 10 mg injection (REGLAN) 10 mg INTRAVENOUS q 6 H LORazepam 2 mg injection (ATIVAN) 2 mg INTRAVENOUS q 4 H PRN dextrose 40 % 15 g 15 g ORAL PRN glucagon 1 mg injection (GLUCAGEN) 1 mg INTRAMUSCULAR PRN dextrose 50% in water 25 mL syringe 12.5 g INTRAVENOUS PRN insulin regular human injection (short acting) (NovoLIN R,HumuLIN R) SUBCUTANEOUS q 6 H bisacodyl 10 mg suppository (DULCOLAX) 10 mg RECTAL DAILY PRN polyethylene glycol 3350 17 g packet (MIRALAX, GLYCOLAX) 17 g ORAL DAILY senna-docusate 8.6-50 mg 1 tablet (SENNA-S) 1 tablet ORAL BID pill splitter (patient-specific) 1 Each Miscell. (Med.Supl.;Non- Drugs) PRN Chlorhexidine Gluconate 0.12 % 15 mL (PERIDEX) 15 mL ORAL q 12 H budesonide 0.5 mg/2 mL 1 mg (PULMICORT) 1 mg INHALATION BID acetaminophen 650 mg tab(s) (TYLENOL) 650 mg ORAL q 6 H PRN dextrose 50% in water 25 mL syringe 12.5 g INTRAVENOUS PRN potassium chloride iv piggyback 20 mEq in sterile water 100 mL 20 mEq INTRAVENOUS PRN magnesium sulfate in water 2 g in sterile water 50 ml 2 g INTRAVENOUS PRN(NO DISPENSE) albuterol 2.5 mg /3 mL (0.083 %) 2.5 mg (PROVENTIL) 2.5 mg INHALATION q 2 H PRN calcium chloride 1 g in D5W 100 mL 1 g INTRAVENOUS PRN(NO DISPENSE) oxyCODONE-acetaminophen 5-325 mg 1-2 tablet (PERCOCET) 1-2 tablet ORAL q 4 H PRN morphine 2-4 mg injection 2-4 mg INTRAVENOUS q 1 H PRN pantoprazole 40 mg injection (PROTONIX) 40 mg INTRAVENOUS DAILY (6 AM) ondansetron (PF) 4 mg injection (ZOFRAN) 4 mg INTRAVENOUS q 6 H PRN propofol infusion (DIPRIVAN) 5-50 mcg/kg/min INTRAVENOUS CONTINUOUS ipratropium-albuterol 3 mL nebulizer solution (DUONEB) 3 mL INHALATION q 4 H atorvastatin 40 mg tab(s) (LIPITOR) 40 mg ORAL AT BEDTIME No past medical history on file. PAST SURGICAL HISTORY Procedure Laterality Date - ORTHOPEDICS SURGERY HX - REPAIR ING HERNIA,5+Y/O,REDUCIBL 1990 Hernia repair, inguinal,left Social History Marital status: Single Spouse name: Years of education: Number of children: Social History Main Topics Smoking status: Current Every Day Smoker Packs/day: 2.00 Years: 25.00 Types: Cigarettes Alcohol use: No Drug use: No Sexual activity: Yes Partners with: Female Other Topics Concern Service No Blood Transfusions No Caffeine Concern No Occupational Exposure No Hobby Hazards No Sleep Concern No Stress Concern No Weight Concern No Special Diet No Back Care No Exercise No Bike Helmet No Seat Belt No Self-Exams No FAMILY HISTORY Problem Relation Age of Onset - Alcohol/Drug Father - Colon Cancer Mother - Diabetes Mother ALLERGIES No Known Allergies REVIEW OF SYSTEMS: Unable to obtain secondary sedated/mechanically ventilated. Objective PHYSICAL EXAM: General Appearance: Well appearing, alert, in no acute distress, well-hydrated, well nourished. Skin: Skin color, texture, turgor normal, no suspicious rashes or lesions Head: Normocephalic, no masses, lesions, tenderness or abnormalities Ears: External ears normal, canals clear Nose/Sinuses: Nares normal, septum midline, mucosa normal, no drainage. Oropharynx: Lips, mucosa, and tongue normal, teeth and gums normal, oropharynx normal Neck: Supple, no adenopathy; thyroid symmetric, normal size, no bruits Lungs: Lungs clear to auscultation anteriorly. No wheezing, rhonchi, rales. Heart: RRR without murmur, gallop, or rubs. No ectopy Abdomen: Abdomen soft, non-tender. Bowel sounds normal. No masses, organomegaly Extremities: No deformities, edema, skin discoloration, clubbing or cyanosis. Good capillary refill. Musculoskeletal: No joint swelling, deformity, or tenderness Peripheral Pulses: Normal Neurological: ? Mental Status: Intubated/sedated/mechanically ventilated. Not following commands or opening eyes. Cranial Nerves: CNII: Does not blink to visual threat. CNIII, IV, : Pupils equal, round and reactive to light, without nystagmus CN V: Unable to assess. CN VII: No noted facial droop CN VIII: Could not be assessed. CN IX: Gag Reflex Intact CN X: Unable to assess. CN XI: Could not be assessed. CN XII: Could not be assessed. ? Motor Exam: Tone - Normal Bulk - no muscle atrophy Motor Exam Strength- Unable to adequately assess at this time. REFLEXES Right Left Bicep 2/4 2/4 Tricep 2/4 2/4 BrRad 2/4 2/4 Knee 2/4 2/4 Ankle 2/4 2/4 ? Sensation: Intact to pin-prick [pain]. ? Coordination: Could not be assessed. ? Gait: Patient is unable to ambulate. LABS/DATA: WBC (thou/cmm) Date Value 02/20/2018 10.17 02/19/2018 10.36 02/18/2018 10.99 02/17/2018 11.32 02/16/2018 10.92 RBC (mil/cmm) Date Value 02/20/2018 3.50 02/19/2018 3.65 02/18/2018 3.61 02/17/2018 3.65 02/16/2018 3.41 Platelet Count (thou/cmm) Date Value 02/20/2018 250 02/19/2018 254 02/18/2018 235 02/17/2018 221 02/16/2018 201 BUN (mg/dL) Date Value 02/20/2018 34 02/19/2018 39 02/18/2018 40 02/17/2018 36 02/16/2018 32 Creatinine (mg/dL) Date Value 02/20/2018 0.84 02/19/2018 0.80 02/18/2018 0.88 02/17/2018 0.88 02/16/2018 0.84 Lab Results Component Value Date PLT 250 02/20/2018 HB 11.2 02/20/2018 HCT 33.7 02/20/2018 ALB 2.5 02/09/2018 CA 8.2 02/20/2018 TBILI 0.6 02/09/2018 ALKPHOS 64 02/09/2018 AST 88 02/09/2018 GLUC 120 02/20/2018 BUN 34 02/20/2018 NA 145 02/20/2018 K 3.7 02/20/2018 CHLOR 114 02/20/2018 CO2 28 02/20/2018 ANION 7 02/20/2018 ALT 30 02/09/2018 Cholesterol, Total (mg/dL) Date Value 02/07/2018 174 LDL Calculated (mg/dL) Date Value 02/07/2018 110 HDL Cholesterol (mg/dL) Date Value 02/07/2018 51 Triglyceride (mg/dL) Date Value 02/07/2018 63 Hemoglobin A1C (%) Date Value 02/07/2018 5.1 Ammonia : 43 DATA: Diagnostic tests reviewed for today's visit: Most recent labs and imaging results. CT Brain on 02/18: No acute intracranial abnormality. EEG: No seizures recorded. No epileptiform discharges seen. Impression/Recommendations This is Jeffrey Cullen, a 67 year old male s/p 3v CABG and subsequent acute hypoxic respiratory failure secondary to HCAP, now w/ post-op/ICU delirium/agitation and acute encephalopathy. - EEG negative for seizure or epileptiform discharges -CTH negative -Check MRI to r/o stroke - Wean sedation as tolerated -Avoid offending meds such as benzos -Consider addition of Seroquel for agitation -Further management per MICU/cardio team -Will follow SIGNATURE: Suzanne Prasad PA-C PATIENT NAME: Jeffrey Cullen DATE: February 20, 2018 TIME: 1:37 PM PAGER/CONTACT #: NSICU STAFF ADDENDUM Bharat Ojeda MD Pt seen and examined, labs/vitals/imaging reviewed independently. Agree with above, reflecting my direct input. Workup unrevealing except MRI-brain still pending. As pt have suffered an embolic shower and such a pattern may not be visible on CT, await MRI results to guide further care and prognostication. PERSONAL INVOLVEMENT IN CARE: ? ?Patient/Family Updated: Patient and/or family were updated regarding the goals of care,?medical plan for the day, field service consultant recommendations, medical disposition and current medical condition/prognosis as and if clinically indicated. All questions and concerns were answered and addressed at this juncture. I agree with the resident MD note as above, except as otherwise indicated; my additional comments, if necessary, are in bold. ? This patient has a high probability of sudden, clinically significant deterioration, which requires the highest level of physician preparedness to intervene urgently. I managed/supervised life or organ supporting interventions that required frequent physician assessment. I devoted my full attention to the direct care of this patient for the amount of time indicated below. Time I spent with family or surrogate(s) is included only if the patient was incapable of providing the necessary information or participating in medical decision making. Time devoted to teaching and to any procedures I billed separately is not included. ? Critical Care Documentation: The patient has the following organ/system impairment(s): As above Time spent providing critical care services: 35 minutes. ? SIGNATURE: Bharat Ojeda MD PATIENT NAME: Jeffrey Cullen DATE: 02/20/18 TIME: 3:36 PM PAGER/CONTACT #: [phone] PROGRESS Observed: 02/20/2018 Status: COMPLETED Source: [place] 12:16 PM CLINIC OTHER CAMPUS REPOSITORY O ID: [id number] Author: Keon Chance Service: Pulmonary Disease Author Type: Physician Type: Progress Notes Filed: 02/20/2018 12:25 PM Note Text: CRITICAL CARE PROGRESS NOTE SERVICE DATE: February 20, 2018 SERVICE TIME: 12:17 PM Admission Date: 02/07/2018 AGE: [age] year old LOS: 13 days REASON FOR ICU ADMISSION: ACTIVE PROBLEM LIST Inguinal Hernia Without Mention of Obstruction Or Gangrene, Unilateral Or Unspecified, (Not Specified As Recurrent) Nstemi (Non-St Elevated Myocardial Infarction) ([facility]) Nsvt (Nonsustained Ventricular Tachycardia) ([facility]) Nicotine use disorder, F17.2 Subjective OVERNIGHT EVENTS: Patient is resting comfortably in bed while sedated and intubated/on the ventilator without any current distress. He does not follow commands on either lesser sedation or no sedation. Objective VITAL SIGNS (last 24hrs min/max): Temp Av.4 ?C (99.3 ?F) Min: 36.5 ?C (97.7 ?F) Max: 37.8 ?C (100 ?F) Pulse Av.3 Min: 69 Max: 97 Cuff No Data Recorded Pain Score: 0/10 24 hour Intake AND Output: Intake/Output Summary (Last 24 hours) at 02/20/18 1217 Last data filed at 02/20/18 1200 Gross per 24 hour Intake 2282.7 ml Output 1838 ml Net 444.7 ml PHYSICAL EXAM: RRR Few scattered crackles bilaterally without wheezing bilaterally anteriorly. Few scattered bowel sounds, soft, nontender, mildly distended. No pedal edema bilaterally. Poor turgor, but dry, intact skin. VENTILATOR INFORMATION: WEANING DATA: Settings: Invasive Ventilator Mode: Pressure Regulated Volume Control (02/20/18 1210) %FIO2: 30 Set Ventilator Respiratory Rate (BPM): 15 Tidal Volume Set (mL): 550 PEEP/CPAP (cm H2O): 5 Inspiratory Pressure Set (cm H2O): 0.9 Patient Data: Inspiratory:Expiratory Ratio: 1:3 Peak Inspiratory Pressure (cm H2O): 18 Plateau Pressure (cm H2O): 13 Weaning Data: Spontaneous Respiratory Rate (BPM): 17.7 INPATIENT MEDICATIONS: Current hospital medications: dexmedetomidine 400 mcg in NaCl 0.9% 100 mL (PRECEDEX) 0.2- 0.7 mcg/kg/hr INTRAVENOUS CONTINUOUS diltiazem 30 mg tab(s) (CARDIZEM) 30 mg NASOGASTRIC q 6 H 0.9% NaCl 20 mL 20 mL INTRAVENOUS PRN 0.9% NaCl 10 mL 10 mL INTRAVENOUS q 12 H 0.9% NaCl 20 mL 20 mL INTRAVENOUS PRN aspirin 162 mg chewable tab(s) 162 mg ORAL DAILY metoprolol tartrate (short acting) (LOPRESSOR) tab(s) 75 mg 75 mg ORAL q 8 H enoxaparin 105 mg injection (LOVENOX) 1 mg/kg/dose SUBCUTANEOUS q 12 HR fentaNYL iv infusion 20 mcg/mL in NaCl 0.9% 100 mL 25 mcg/hr INTRAVENOUS CONTINUOUS nystatin 5 mL oral liquid (MYCOSTATIN) 5 mL ORAL QID metoclopramide HCl 10 mg injection (REGLAN) 10 mg INTRAVENOUS q 6 H LORazepam 2 mg injection (ATIVAN) 2 mg INTRAVENOUS q 4 H PRN dextrose 40 % 15 g 15 g ORAL PRN glucagon 1 mg injection (GLUCAGEN) 1 mg INTRAMUSCULAR PRN dextrose 50% in water 25 mL syringe 12.5 g INTRAVENOUS PRN insulin regular human injection (short acting) (NovoLIN R,HumuLIN R) SUBCUTANEOUS q 6 H bisacodyl 10 mg suppository (DULCOLAX) 10 mg RECTAL DAILY PRN polyethylene glycol 3350 17 g packet (MIRALAX, GLYCOLAX) 17 g ORAL DAILY senna-docusate 8.6-50 mg 1 tablet (SENNA-S) 1 tablet ORAL BID pill splitter (patient-specific) 1 Each Miscell. (Med.Supl.;Non- Drugs) PRN Chlorhexidine Gluconate 0.12 % 15 mL (PERIDEX) 15 mL ORAL q 12 H budesonide 0.5 mg/2 mL 1 mg (PULMICORT) 1 mg INHALATION BID acetaminophen 650 mg tab(s) (TYLENOL) 650 mg ORAL q 6 H PRN dextrose 50% in water 25 mL syringe 12.5 g INTRAVENOUS PRN potassium chloride iv piggyback 20 mEq in sterile water 100 mL 20 mEq INTRAVENOUS PRN magnesium sulfate in water 2 g in sterile water 50 ml 2 g INTRAVENOUS PRN(NO DISPENSE) albuterol 2.5 mg /3 mL (0.083 %) 2.5 mg (PROVENTIL) 2.5 mg INHALATION q 2 H PRN calcium chloride 1 g in D5W 100 mL 1 g INTRAVENOUS PRN(NO DISPENSE) oxyCODONE-acetaminophen 5-325 mg 1-2 tablet (PERCOCET) 1-2 tablet ORAL q 4 H PRN morphine 2-4 mg injection 2-4 mg INTRAVENOUS q 1 H PRN pantoprazole 40 mg injection (PROTONIX) 40 mg INTRAVENOUS DAILY (6 AM) ondansetron (PF) 4 mg injection (ZOFRAN) 4 mg INTRAVENOUS q 6 H PRN propofol infusion (DIPRIVAN) 5-50 mcg/kg/min INTRAVENOUS CONTINUOUS ipratropium-albuterol 3 mL nebulizer solution (DUONEB) 3 mL INHALATION q 4 H atorvastatin 40 mg tab(s) (LIPITOR) 40 mg ORAL AT BEDTIME DATA: BLOOD GAS: Recent Labs 02/13/181944 RESPHCO3 25.1 PH 7.310* PCO2 51.4* [id number] 94.0* CBC: Recent Labs 02/20/18 0610 02/19/18 0550 02/18/18 0520 02/17/18 1000 02/16/18 0600 02/15/18 0530 WBC 10.17* 10.36* 10.99* 11.32* 10.92* 10.27* HB 11.2* 11.6* 11.6* 11.7* 10.9* 11.3* HCT 33.7* 35.2* 35.4* 35.0* 32.5* 33.2* PLT 250 254 235 221 201 179 MCV 96.3* 96.4* 98.1* 95.9* 95.3 94.9 BMP: Recent Labs 02/20/18 0610 02/19/18 0550 02/18/18 0520 02/17/18 1000 02/16/18 0600 02/15/18 0530 02/14/18 0503 02/13/181944 GLUC 120* 107* 122* 123* 110* 137* 143* 113* NA 145 146* 146* 145 140 141 140 140 K 3.7 3.6 3.7 4.1 3.9 4.0 4.7 3.5 CHLOR 114* 111* 110* 110* 112* 112* 109* 110* CO2 28 31 30 31 28 26 23 25 ANION 7* 8 10 8 4* 7* 13 9 BUN 34* 39* 40* 36* 32* 20* 19* 20* CREAT 0.84 0.80 0.88 0.88 0.84 0.83 0.78 0.93 CHEM: Recent Labs 02/20/18 0610 02/19/18 0550 02/18/18 0520 02/17/18 1000 02/16/18 0600 02/15/18 0530 02/14/18 0503 02/13/181944 CA 8.2* 8.5 8.3* 8.1* 8.1* 8.2* 8.2* 8.0* MG -- -- -- 2.5 -- -- -- 2.2 URINALYSIS: Recent Labs 02/13/181944 PH 7.310* Assessment/Plan ASSESSMENT: ACTIVE PROBLEM LIST Inguinal Hernia Without Mention of Obstruction Or Gangrene, Unilateral Or Unspecified, (Not Specified As Recurrent) Nstemi (Non-St Elevated Myocardial Infarction) ([facility]) Nsvt (Nonsustained Ventricular Tachycardia) ([facility]) Nicotine use disorder, F17.2 S/P CABG, POD # 11 Acute exacerbation of COPD secondary to HCAP Acute hypoxic respiratory failure Acute encephalopathy PLAN: Continue full ventilator support. Doing much better on CPAP/PS trials and seems to be ready for extubation form a respiratory standpoint, but will not be due to his encephalopathy. Patient will need to undergo tracheostomy and PEG tube placement if he is not extubated soon. Continue bronchodilators. Finished antibiotic course. Is undergoing further evaluation by Neurology. Tolerating tube feeds at goal rate variably. Continue Reglan 10 mg IV every 6 hours plus a bowel regimen. Continue supportive care. This patient has a high probability of sudden, clinically significant deterioration, which requires the highest level of physician preparedness to intervene urgently. I managed/supervised life or organ supporting interventions that required frequent physician assessment. I devoted my full attention to the direct care of this patient for the amount of time indicated below. Time I spent with family or surrogate(s) is included only if the patient was incapable of providing the necessary information or participating in medical decision making. Time devoted to teaching and to any procedures I billed separately is not included. PROGNOSIS: Fair Code status: Full Code. Discussed with Registered Nurse. Critical Care Documentation: The patient has the following organ/system impairment(s): Respiratory failure (Acute, with Hypoxemia) and coronary artery disease Time spent providing critical care services: 38 minutes. SIGNATURE: Keon Chance MD [facility] PAGER:[phone] DATE of SERVICE: February 20, 2018 TIME of SERVICE: 12:17 PM GLUCOSE METER Collected: 02/20/2018 Status: F Source: [facility] 11:49 AM HEALTH SYSTEM REPOSITORY TYPE CODE TESTS RESULT OUT OF REFERENCE UNITS RANGE LAB GLUBL(LOINC 70-99 mg/dL ) High Glucose Meter 159 Result Comment: RN NOTIFIED Performed By: #### GLMET #### [facility] [address] [address] PROGRESS Observed: 02/20/2018 Status: COMPLETED Source: [place] 10:45 AM [facility] REPOSITORY HNO ID: [id number] Author: Beata Marin Service: Cardiac Surgery Author Type: Physician Type: Progress Notes Filed: 02/20/2018 5:44 PM Note Text: CARDIOTHORACICSURGERY PROGRESS NOTE SERVICE DATE: 02/20/2018 SERVICE TIME: 10:45 AM Ventricular Pacing Wires removed. Patient sedated and intubated. A single ventricular wire and ground lead were removed at 10:42AM without complication. Patient tolerated procedure well. Nurse will monitor VS [id number], then q30x1h, then [id number]. SIGNATURE: Misti Stein PA-C PATIENT NAME: Jeffrey Cullen DATE: February 20, 2018 TIME: 10:45 AM PAGER/CONTACT #: [phone] ETX#[id number] Patient seen and still on vent. Perhaps a little more awake at times. Appreciate neuro eval. Labs noted. Mostly sinus rhythm. A-continued mental status changes with neg CT head and resp failure s/p urgent cabg P-on therapeutic lovenox, cardizem, and lopressor for postop afib. Await MRI brain. NUTRITION Observed: 02/20/2018 Status: COMPLETED Source: [place] 10:30 AM [facility] REPOSITORY HNO ID: [id number] Author: Sandra Almaguer RD Service: Nutrition Therapy Author Type: Registered Dietitian Type: Nutrition Filed: 02/20/2018 3:42 PM Note Text: NUTRITION THERAPY REASSESSMENT SERVICE DATE: 02/20/2018 SERVICE TIME: 10:31 AM RECOMMENDED MALNUTRITION DIAGNOSIS: Previous entry done in error. Sandra Almaguer RD, LD. February 20, 2018 3:41 PM MODERATE PROTEIN CALORIE MALNUTRITION In the context of Acute Illness or Injury based on: Insufficient Energy Intake: <75% for >7 days Subcutaneous Fat Loss: Mild Loss Muscle Loss Moderate Loss NUTRITION CARE PLAN: Problem, Etiology and Signs/Symptoms: Suboptimal oral intake related to respiratory status as evidenced by NPO with tube feeding, vent support, and moderate muscle loss. Intervention: Recommend increase Impact Peptide to goal rate 50 ml/hr to provide 1200 ml product - 1800 kcal, 112.8 gm protein, 924 ml free water Flush with 30 ml 6 times per day (Flush goal 150 ml 6 times per day) Propofol at 6.34 ml/hr providing ~167.4 kcal per day., noted off and on at present Coordination of Care: Nursing, [place] [employer] ATTENDANT, MD, and Pharmacy Monitor and Evaluation: Goal: Meet >75% of estimated needs Monitor fluid/electrolyte balance Monitor labs, I/Os, vital signs, weight Monitor tolerance to tube feeding Discharge Nutrition Recommendations: To be determined Chart reviewed for follow-up from tube feeding Per HPI: 67 year old male patient with no known PMH other than long history of smoking ( 2packs a day for more than 30 years) Earlier 02/07/18?he was sitting and suddenly started having substernal chest pain, pain is intermittent with no radiation, he felt nauseas but no vomiting and no diaphoresis.This pain kept coming so he went to the ER. Underwent LHC on 02/08/18 showed need for CABG, underwent CABG on 02/09/18. Chest tubed pulled 02/11. ?Remains on vent support. Noted residuals and tube feeding held at present. ?Started on Reglan daily from PRN. ? Patient remains intubated this AM. No significant residuals noted greater than 100 cc. Toleration of tube feeding improving. Interval History: Remains on vent support, tube feeding held at present for residual 280 ml. PICC placed on 02/17. Noted plan for trach and PEG, if unable to extubate soon. Met with RN reports residual decreasing with plans to restart TF. BM 02/16, RN aware, reported likely to give dulcolax suppository today. ACTIVE PROBLEM LIST Inguinal Hernia Without Mention of Obstruction Or Gangrene, Unilateral Or Unspecified, (Not Specified As Recurrent) Nstemi (Non-St Elevated Myocardial Infarction) ([facility]) Nsvt (Nonsustained Ventricular Tachycardia) ([facility]) Nicotine use disorder, F17.2 No past medical history on file. PAST SURGICAL HISTORY Procedure Laterality Date - ORTHOPEDICS SURGERY HX - REPAIR ING HERNIA,5+Y/O,REDUCIBL 1989 Hernia repair, inguinal,left Present Diet Order: NPO and Tube Feeding Impact Peptide 1.5 at 47 ml/hr. Nutritional Intake: >75% estimated energy needs over the past 5 day(s), noted TF held today for residual 280 ml.Noted was held on 02/13 for high residual 480 ml and then restarted on 02/15. Was NPO 4 days prior to TF start. GI symptoms: constipation, noted last BM 02/16 Abdominal Exam: bowel sounds are hypoactive Is the patient having any pain that is interfering with oral/enteral intake? Unable to assess ANTHROPOMETRICS Height: 180.3 cm (5' 10.98) Admission Weight: 104.3 kg (229 lb 15 oz) Current Weight: 106.4 kg (234 lb 9.1 oz) Body mass index is 32.73 kg/(m2). class 1 obesity Weight has increased by 2.1 kg over 2 weeks representing 2 % weight change. Last Wt 02/20/18 : 106.4 kg (234 lb 9.1 oz) 02/07/18 : 104.3 kg (230 lb) 12/04/07 : 100.2 kg (221 lb) [place] Body Weight: 78.2kg Resting Metabolic Rate: 1897 Estimated kilocalorie needs: 2419-0002 kilocalories determined by 25-30 kcal/kg ideal body weight Estimated protein needs: 102-133 grams determined by 1.3-1.7 g/kg [place] weight Estimated fluid needs: 0874-3156 milliliters based on 1 mL per kcal NUTRITION FOCUSED PHYSICAL EXAM: Subcutaneous Fat Loss Orbital Mild Triceps No fat loss Mid-axillary at the iliac crest Unable to determine at this time Muscle Loss Locations: Temporalis Moderate Pectoralis No muscle loss Deltoids No muscle loss Interosseous No muscle loss Latissimus dorsi, trapezius No muscle loss Quadriceps No muscle loss Gastrocnemius No muscle loss Potential micronutrient deficiency revealed in: Unable to determine at this time Edema: Yes Lower extremities Mild 1+, Generalized and Non-pitting Ascites: No Assessment of Functional Status: Functional capacity is unrelated to nutrition status Temperature Max in 24 hours: Temp (24hrs), Av.9 ?C (98.4 ?F), Min:36.7 ?C (98.1 ?F), Max:37.1 ?C (98.8 ?F) BP 104/55 Pulse 75 Temp 37 ?C (98.6 ?F) Resp 20 Ht 180.3 cm (5' 10.98) Wt 106.4 kg (234 lb 9.1 oz) SpO2 96% BMI 32.73 kg/m2 Recent Labs 02/20/18 0610 GLUC 120* BUN 34* CREAT 0.84 NA 145 K 3.7 CHLOR 114* CO2 28 HB 11.2* HCT 33.7* WBC 10.17* Potential Signs of Inflammation: leukocytosis and hyperglycemia ALLERGIES No Known Allergies Current Facility-Administered Medications: dexmedetomidine 400 mcg in NaCl 0.9% 100 mL (PRECEDEX) 0.2- 0.7 mcg/kg/hr INTRAVENOUS CONTINUOUS diltiazem 30 mg tab(s) (CARDIZEM) 30 mg NASOGASTRIC q 6 H 0.9% NaCl 20 mL 20 mL INTRAVENOUS PRN 0.9% NaCl 10 mL 10 mL INTRAVENOUS q 12 H 0.9% NaCl 20 mL 20 mL INTRAVENOUS PRN aspirin 162 mg chewable tab(s) 162 mg ORAL DAILY metoprolol tartrate (short acting) (LOPRESSOR) tab(s) 75 mg 75 mg ORAL q 8 H enoxaparin 105 mg injection (LOVENOX) 1 mg/kg/dose SUBCUTANEOUS q 12 HR fentaNYL iv infusion 20 mcg/mL in NaCl 0.9% 100 mL 25 mcg/hr INTRAVENOUS CONTINUOUS nystatin 5 mL oral liquid (MYCOSTATIN) 5 mL ORAL QID metoclopramide HCl 10 mg injection (REGLAN) 10 mg INTRAVENOUS q 6 H LORazepam 2 mg injection (ATIVAN) 2 mg INTRAVENOUS q 4 H PRN dextrose 40 % 15 g 15 g ORAL PRN Or glucagon 1 mg injection (GLUCAGEN) 1 mg INTRAMUSCULAR PRN Or dextrose 50% in water 25 mL syringe 12.5 g INTRAVENOUS PRN insulin regular human injection (short acting) (NovoLIN R,HumuLIN R) SUBCUTANEOUS q 6 H bisacodyl 10 mg suppository (DULCOLAX) 10 mg RECTAL DAILY PRN polyethylene glycol 3350 17 g packet (MIRALAX, GLYCOLAX) 17 g ORAL DAILY senna-docusate 8.6-50 mg 1 tablet (SENNA-S) 1 tablet ORAL BID pill splitter (patient-specific) 1 Each Miscell. (Med.Supl.;Non- Drugs) PRN Chlorhexidine Gluconate 0.12 % 15 mL (PERIDEX) 15 mL ORAL q 12 H budesonide 0.5 mg/2 mL 1 mg (PULMICORT) 1 mg INHALATION BID acetaminophen 650 mg tab(s) (TYLENOL) 650 mg ORAL q 6 H PRN dextrose 50% in water 25 mL syringe 12.5 g INTRAVENOUS PRN potassium chloride iv piggyback 20 mEq in sterile water 100 mL 20 mEq INTRAVENOUS PRN magnesium sulfate in water 2 g in sterile water 50 ml 2 g INTRAVENOUS PRN(NO DISPENSE) albuterol 2.5 mg /3 mL (0.083 %) 2.5 mg (PROVENTIL) 2.5 mg INHALATION q 2 H PRN calcium chloride 1 g in D5W 100 mL 1 g INTRAVENOUS PRN(NO DISPENSE) oxyCODONE-acetaminophen 5-325 mg 1-2 tablet (PERCOCET) 1-2 tablet ORAL q 4 H PRN morphine 2-4 mg injection 2-4 mg INTRAVENOUS q 1 H PRN pantoprazole 40 mg injection (PROTONIX) 40 mg INTRAVENOUS DAILY (6 AM) ondansetron (PF) 4 mg injection (ZOFRAN) 4 mg INTRAVENOUS q 6 H PRN propofol infusion (DIPRIVAN) 5-50 mcg/kg/min INTRAVENOUS CONTINUOUS ipratropium-albuterol 3 mL nebulizer solution (DUONEB) 3 mL INHALATION q 4 H atorvastatin 40 mg tab(s) (LIPITOR) 40 mg ORAL AT BEDTIME Surgical Incision 02/09/18 Chest - Midsternal (Active) Dressing Status None: Open to Air 02/20/2018 8:00 AM Frequency of Dressing Change As Needed 02/18/2018 4:00 AM Incision Closures Topical Skin Adhesive 02/20/2018 8:00 AM Drainage Description None 02/20/2018 8:00 AM Drainage Amount None 02/20/2018 8:00 AM Edges Intact 02/20/2018 8:00 AM Hematoma No 02/20/2018 8:00 AM Number of days:11 Surgical Incision 02/09/18 Leg - Left (Active) Dressing Status None: Open to Air 02/20/2018 8:00 AM Frequency of Dressing Change As Needed 02/18/2018 4:00 AM Incision Closures Topical Skin Adhesive 02/20/2018 8:00 AM Drainage Description None 02/20/2018 8:00 AM Drainage Amount None 02/20/2018 8:00 AM Edges Intact 02/20/2018 8:00 AM Hematoma No 02/20/2018 8:00 AM Number of days:11 MNT Billing Type: Re-assess/15 min 5 units SIGNATURE: Sandra Almaguer RD, LD PATIENT NAME: Jeffrey Cullen DATE: February 20, 2018 TIME: 10:31 AM PAGER: [phone] PROGRESS Observed: 02/20/2018 Status: COMPLETED Source: [place] 9:22 AM CLINIC OTHER CAMPUS REPOSITORY HNO ID: [id number] Author: Krystal Miller APRN.CNS (Cns) Service: Critical Care Author Type: Nurse Specialist Type: Progress Notes Filed: 02/20/2018 9:32 AM Note Text: MICU - PROGRESS NOTE SERVICE DATE: 02/20/2018 SERVICE TIME: 9:22 AM Admission Date: 02/07/2018 AGE: [age] year old LOS: 13 days Subjective REASON FOR ICU ADMISSION: Respiratory Failure SP CABG Objective PROBLEMS: ACTIVE PROBLEM LIST Inguinal Hernia Without Mention of Obstruction Or Gangrene, Unilateral Or Unspecified, (Not Specified As Recurrent) Nstemi (Non-St Elevated Myocardial Infarction) (Hcc) Nsvt (Nonsustained Ventricular Tachycardia) (Hcc) Nicotine use disorder, F17.2 No past medical history on file. PAST SURGICAL HISTORY Procedure Laterality Date - ORTHOPEDICS SURGERY HX - REPAIR ING HERNIA,5+Y/O,REDUCIBL 1990 Hernia repair, inguinal,left Social History Marital status: Single Spouse name: Years of education: Number of children: Social History Main Topics Smoking status: Current Every Day Smoker Packs/day: 2.00 Years: 25.00 Types: Cigarettes Alcohol use: No Drug use: No Sexual activity: Yes Partners with: Female Other Topics Concern Service No Blood Transfusions No Caffeine Concern No Occupational Exposure No Hobby Hazards No Sleep Concern No Stress Concern No Weight Concern No Special Diet No Back Care No Exercise No Bike Helmet No Seat Belt No Self-Exams No VITAL SIGNS (last 24hrs min/max): Temp Av.9 ?C (98.4 ?F) Min: 36.7 ?C (98.1 ?F) Max: 37.1 ?C (98.8 ?F) Pulse Av.4 Min: 72 Max: 114 Arterial BP 1 Min: 103/52 Max: 149/67 Cuff No Data Recorded Pain Score: 7/10 Vital signs reviewed. BP 104/55 Pulse 75 Temp (Src) 98.6 (Temporal Artery) Resp 20 Ht 5' 10.984 (1.80m) Wt 234 lb 9.1 oz (106.4kg) SpO2 96% BMI 32.73 kg/(m2). Temp (24hrs), Av.9 ?C (98.4 ?F), Min:36.7 ?C (98.1 ?F), Max:37.1 ?C (98.8 ?F) NET FLUID BALANCE Intake/Output Summary (Last 24 hours) at 02/20/18 0922 Last data filed at 02/20/18 0900 Gross per 24 hour Intake 2629.7 ml Output 1808 ml Net 821.7 ml MEDICATIONS Current Facility-Administered Medications: dexmedetomidine 400 mcg in NaCl 0.9% 100 mL (PRECEDEX) 0.2- 0.7 mcg/kg/hr INTRAVENOUS CONTINUOUS diltiazem 30 mg tab(s) (CARDIZEM) 30 mg NASOGASTRIC q 6 H 0.9% NaCl 20 mL 20 mL INTRAVENOUS PRN 0.9% NaCl 10 mL 10 mL INTRAVENOUS q 12 H 0.9% NaCl 20 mL 20 mL INTRAVENOUS PRN aspirin 162 mg chewable tab(s) 162 mg ORAL DAILY metoprolol tartrate (short acting) (LOPRESSOR) tab(s) 75 mg 75 mg ORAL q 8 H enoxaparin 105 mg injection (LOVENOX) 1 mg/kg/dose SUBCUTANEOUS q 12 HR fentaNYL iv infusion 20 mcg/mL in NaCl 0.9% 100 mL 25 mcg/hr INTRAVENOUS CONTINUOUS nystatin 5 mL oral liquid (MYCOSTATIN) 5 mL ORAL QID metoclopramide HCl 10 mg injection (REGLAN) 10 mg INTRAVENOUS q 6 H LORazepam 2 mg injection (ATIVAN) 2 mg INTRAVENOUS q 4 H PRN dextrose 40 % 15 g 15 g ORAL PRN Or glucagon 1 mg injection (GLUCAGEN) 1 mg INTRAMUSCULAR PRN Or dextrose 50% in water 25 mL syringe 12.5 g INTRAVENOUS PRN insulin regular human injection (short acting) (NovoLIN R,HumuLIN R) SUBCUTANEOUS q 6 H bisacodyl 10 mg suppository (DULCOLAX) 10 mg RECTAL DAILY PRN polyethylene glycol 3350 17 g packet (MIRALAX, GLYCOLAX) 17 g ORAL DAILY senna-docusate 8.6-50 mg 1 tablet (SENNA-S) 1 tablet ORAL BID pill splitter (patient-specific) 1 Each Miscell. (Med.Supl.;Non- Drugs) PRN Chlorhexidine Gluconate 0.12 % 15 mL (PERIDEX) 15 mL ORAL q 12 H budesonide 0.5 mg/2 mL 1 mg (PULMICORT) 1 mg INHALATION BID acetaminophen 650 mg tab(s) (TYLENOL) 650 mg ORAL q 6 H PRN dextrose 50% in water 25 mL syringe 12.5 g INTRAVENOUS PRN potassium chloride iv piggyback 20 mEq in sterile water 100 mL 20 mEq INTRAVENOUS PRN magnesium sulfate in water 2 g in sterile water 50 ml 2 g INTRAVENOUS PRN(NO DISPENSE) albuterol 2.5 mg /3 mL (0.083 %) 2.5 mg (PROVENTIL) 2.5 mg INHALATION q 2 H PRN calcium chloride 1 g in D5W 100 mL 1 g INTRAVENOUS PRN(NO DISPENSE) oxyCODONE-acetaminophen 5-325 mg 1-2 tablet (PERCOCET) 1-2 tablet ORAL q 4 H PRN morphine 2-4 mg injection 2-4 mg INTRAVENOUS q 1 H PRN pantoprazole 40 mg injection (PROTONIX) 40 mg INTRAVENOUS DAILY (6 AM) ondansetron (PF) 4 mg injection (ZOFRAN) 4 mg INTRAVENOUS q 6 H PRN propofol infusion (DIPRIVAN) 5-50 mcg/kg/min INTRAVENOUS CONTINUOUS ipratropium-albuterol 3 mL nebulizer solution (DUONEB) 3 mL INHALATION q 4 H atorvastatin 40 mg tab(s) (LIPITOR) 40 mg ORAL AT BEDTIME Lines, Drains, and Airways Line Arterial Line 02/09/18 0830 Arterial Line Left Radial 11 days Central Line Double Lumen 02/17/18 1310 Peripherally Inserted (PICC) Right Arm 5.0 Vietnamese 2 days Drain GI Feed/Drain 02/09/18799 Oral Gastric Midline 11 days Indwelling Urinary Catheter 02/09/18 08 Temperature Monitoring 16 Fr 11 days Airway Airway Endotracheal Tube 02/09/18 08 11 days PHYSICAL EXAM PERFORMED: Cardiovascular: Regular rhythm Respiratory: Reduced breath sounds bilat %FIO2 Min: 30 Max: 30 Abdomen: Soft Extremities: Edema- Yes Generalized edema Neurologic: Sedated with fentanyl. precedex and propofol Respiratory/Nursing Documentation: O2 Therapy: Ventilator (02/20/18809) Invasive Ventilator Mode: Pressure Regulated Volume Control (02/20/18809) Set Ventilator Respiratory Rate (BPM): 15 (02/20/18809) Total Respiratory Rate (BPM): 22 (02/20/18809) Tidal Volume Set (mL): 550 (02/20/18809) Exhaled Tidal Volume (mL): 619 (02/20/18809) Minute Volume (L): 12.6 (02/20/18809) Peak Inspiratory Pressure (cm H2O): 10 (02/20/18809) PEEP/CPAP (cm H2O): 5 (02/20/18809) HEMODYNAMIC DATA: Reviewed NUTRITION: Enteral Feeds: Yes Feedings on hold-residual 280ml NPO DATA: Diagnostic tests reviewed for today's visit, films/specimens were personally reviewed by me: Most recent labs and imaging results. LABS: Recent Labs 02/20/18 0610 02/17/18 1000 WBC 10.17* < > 11.32* RBC 3.50* < > 3.65* HB 11.2* < > 11.7* HCT 33.7* < > 35.0* MCV 96.3* < > 95.9* PLT 250 < > 221 GLUC 120* < > 123* BUN 34* < > 36* CREAT 0.84 < > 0.88 NA 145 < > 145 K 3.7 < > 4.1 CHLOR 114* < > 110* CO2 28 < > 31 CA 8.2* < > 8.1* MG -- -- 2.5 < > = values in this interval not displayed. ABG: Assessment/Plan IMPRESSION: Critical Care Documentation: The patient has the following organ/system impairment(s): Respiratory failure (with Hypoxemia) S/P CABG, 02/09/2018 Acute exacerbation of COPD secondary to HCAP. Improving. Acute hypoxic respiratory failure Acute encephalopathy PLAN: Continue full ventilator support Finish course of antibiotics Stable hemodynamics off pressor agents CT Brain was negative MRI Brain pending-neuro following Tube feedings held 2/2 high residuals Continue Reglan 10 mg IV every 6 hours. Continue supportive care This patient has a high probability of sudden, clinically significant deterioration, which requires the highest level of physician preparedness to intervene urgently. I managed/supervised life or organ supporting interventions that required frequent physician assessment. I devoted my full attention to the direct care of this patient for the amount of time indicated below. Time I spent with family or surrogate(s) is included only if the patient was incapable of providing the necessary information or participating in medical decision making. Time devoted to teaching is not included. Discussed with staff/patient/family Time spent providing critical care services: 35 minutes excluding procedures. SIGNATURE: Krystal Miller APRN.BEHAVIORAL HEALTH CONSULTANT PATIENT NAME: Jeffrey Cullen DATE: February 20, 2018 TIME: 9:22 AM HEMOGRAM Collected: 02/20/2018 Status: F Source: [facility] 6:10 AM HEALTH SYSTEM REPOSITORY TYPE CODE TESTS RESULT OUT OF REFERENCE UNITS RANGE LAB WBC(LOINC) 4.23-9.07 thou/cmm High WBC 10.17 LAB RBC(LOINC) 4.63-6.08 mil/cmm Low RBC 3.50 LAB HGB(LOINC) 13.7-17.5 g/dL Low Hgb 11.2 LAB HCT(LOINC) 40.1-51.0 % Low Hct 33.7 LAB MCV(LOINC) 83.2-95.6 fl High MCV 96.3 LAB MCH(LOINC) 25.7-32.2 pg MCH 32.0 LAB MCHC(LOINC) 32.3-36.5 % MCHC 33.2 LAB RDW(LOINC) 11.6-14.4 % RDW 13.4 LAB RDWSD(LOINC 36.1-45.8 fl ) High RDW SD 47.3 LAB PLT(LOINC) 141-365 thou/cmm Platelet 250 LAB MPV(LOINC) 8.7-12.0 fl MPV 9.9 Performed By: #### CBC1 #### [facility] [address] [place] [id number] BASIC PANEL Collected: 02/20/2018 Status: F Source: [facility] 6:10 AM HEALTH SYSTEM REPOSITORY TYPE CODE TESTS RESULT OUT OF REFERENCE UNITS RANGE LAB NA(LOINC) 136-145 mEq/L Sodium Blood 145 LAB K(LOINC) 3.5-5.1 mEq/L Potassium Blood 3.7 LAB CL(LOINC) 98-107 mEq/L Chloride High Blood 114 LAB CO2(LOINC) 21-32 mEq/L CO2 Blood 28 LAB GLU(LOINC) 70-99 mg/dL Glucose High Blood 120 LAB BUN(LOINC) 7-18 mg/dL BUN High Blood 34 LAB CREA(LOINC 0.67-1.17 mg/dL ) Creatinine Blood 0.84 LAB CA(LOINC) 8.5-10.1 mg/dL Low Calcium Blood 8.2 LAB ANGAP(LOIN 8-16 C) Low Anion Gap 7 Performed By: #### P8 #### [place] [id number] MDRD GFR Collected: 02/20/2018 Status: F Source: [facility] 6:10 AM HEALTH SYSTEM REPOSITORY TYPE CODE TESTS RESULT OUT OF RANGE REFERENCE UNITS LAB GFRFN(LOINC >60mL/min/1.73m ) 2 eGFR >60 Result Comment: If the patient is , multiply the result by 1.210. Performed By: #### GFR #### [place] [address] GLUCOSE METER Collected: 02/20/2018 Status: F Source: [facility] 6:03 AM HEALTH SYSTEM REPOSITORY TYPE CODE TESTS RESULT OUT OF REFERENCE UNITS RANGE LAB GLUBL(LOINC 70-99 mg/dL ) High Glucose Meter 114 Result Comment: RN NOTIFIED Performed By: #### GLMET #### [place] [id number] GLUCOSE METER Collected: 02/20/2018 Status: F Source: [facility] 12:30 AM HEALTH SYSTEM REPOSITORY TYPE CODE TESTS RESULT OUT OF REFERENCE UNITS RANGE LAB GLUBL(LOINC 70-99 mg/dL ) High Glucose Meter 124 Result Comment: RN NOTIFIED Performed By: #### GLMET #### [place] [address] GLUCOSE METER Collected: 02/19/2018 Status: F Source: [facility] 6:34 PM HEALTH SYSTEM REPOSITORY TYPE CODE TESTS RESULT OUT OF REFERENCE UNITS RANGE LAB GLUBL(LOINC 70-99 mg/dL ) High Glucose Meter 108 Result Comment: RN NOTIFIED Performed By: #### GLMET #### [facility] [address] [place] [id number] PROGRESS Observed: 02/19/2018 Status: COMPLETED Source: [place] 3:55 PM CLINIC OTHER CAMPUS REPOSITORY HNO ID: [id number] Author: Evelin Coronado Service: Critical Care Author Type: Physician Type: Progress Notes Filed: 02/19/2018 4:12 PM Note Text: CRITICAL CARE PROGRESS NOTE SERVICE DATE: February 19, 2018 SERVICE TIME: 3:55 PM Admission Date: 02/07/2018 AGE: [age] year old LOS: 12 days REASON FOR ICU ADMISSION: ACTIVE PROBLEM LIST Inguinal Hernia Without Mention of Obstruction Or Gangrene, Unilateral Or Unspecified, (Not Specified As Recurrent) Nstemi (Non-St Elevated Myocardial Infarction) ([facility]) Nsvt (Nonsustained Ventricular Tachycardia) ([facility]) Nicotine use disorder, F17.2 F/U VDRF Subjective OVERNIGHT EVENTS: RN reports pt not tolerating sedation holiday. Becomes agitated and shakes his head to and fro rigorously. RN reports that she was able to get him off propofol for 15 minutes yesterday and he did not follow commands. He did not demonstrate purposeful movement, reaching for his ET tube. He did not track or focus. Objective VITAL SIGNS (last 24hrs min/max): Temp Av.4 ?C (99.3 ?F) Min: 36.5 ?C (97.7 ?F) Max: 37.8 ?C (100 ?F) Pulse Av.3 Min: 69 Max: 97 Cuff No Data Recorded Pain Score: 0/10 24 hour Intake AND Output: Intake/Output Summary (Last 24 hours) at 02/19/18 1555 Last data filed at 02/19/18 1400 Gross per 24 hour Intake 2742.2 ml Output 1451 ml Net 1291.2 ml PHYSICAL EXAM: GENERAL: well built 67yo WM, sedated, intubated. Pupils equal and reactive. He does MAEx4 RRR Few scattered crackles bilaterally without wheezing bilaterally anteriorly. Scattered bowel sounds No pedal edema bilaterally. Poor turgor, but dry, intact skin. : high w/ clear roman/yellow. GI: OG in place, TF's @ 47cc/h. EXT: - c/c/e, RUE dual lumen PICC in place, SCDs applied. VENTILATOR INFORMATION: WEANING DATA: Settings: Invasive Ventilator Mode: Pressure Regulated Volume Control (02/19/18 1225) %FIO2: 30 Set Ventilator Respiratory Rate (BPM): 15 Tidal Volume Set (mL): 550 PEEP/CPAP (cm H2O): 5 Inspiratory Pressure Set (cm H2O): 0.9 Patient Data: Inspiratory:Expiratory Ratio: 1:3 Peak Inspiratory Pressure (cm H2O): 17 Plateau Pressure (cm H2O): 12 Weaning Data: Spontaneous Respiratory Rate (BPM): 17.7 INPATIENT MEDICATIONS: Current hospital medications: dexmedetomidine 400 mcg in NaCl 0.9% 100 mL (PRECEDEX) 0.2- 0.7 mcg/kg/hr INTRAVENOUS CONTINUOUS diltiazem 30 mg tab(s) (CARDIZEM) 30 mg NASOGASTRIC q 6 H 0.9% NaCl 20 mL 20 mL INTRAVENOUS PRN 0.9% NaCl 10 mL 10 mL INTRAVENOUS q 12 H 0.9% NaCl 20 mL 20 mL INTRAVENOUS PRN aspirin 162 mg chewable tab(s) 162 mg ORAL DAILY metoprolol tartrate (short acting) (LOPRESSOR) tab(s) 75 mg 75 mg ORAL q 8 H enoxaparin 105 mg injection (LOVENOX) 1 mg/kg/dose SUBCUTANEOUS q 12 HR fentaNYL iv infusion 20 mcg/mL in NaCl 0.9% 100 mL 25 mcg/hr INTRAVENOUS CONTINUOUS nystatin 5 mL oral liquid (MYCOSTATIN) 5 mL ORAL QID metoclopramide HCl 10 mg injection (REGLAN) 10 mg INTRAVENOUS q 6 H LORazepam 2 mg injection (ATIVAN) 2 mg INTRAVENOUS q 4 H PRN dextrose 40 % 15 g 15 g ORAL PRN glucagon 1 mg injection (GLUCAGEN) 1 mg INTRAMUSCULAR PRN dextrose 50% in water 25 mL syringe 12.5 g INTRAVENOUS PRN insulin regular human injection (short acting) (NovoLIN R,HumuLIN R) SUBCUTANEOUS q 6 H bisacodyl 10 mg suppository (DULCOLAX) 10 mg RECTAL DAILY PRN polyethylene glycol 3350 17 g packet (MIRALAX, GLYCOLAX) 17 g ORAL DAILY senna-docusate 8.6-50 mg 1 tablet (SENNA-S) 1 tablet ORAL BID pill splitter (patient-specific) 1 Each Miscell. (Med.Supl.;Non- Drugs) PRN Chlorhexidine Gluconate 0.12 % 15 mL (PERIDEX) 15 mL ORAL q 12 H budesonide 0.5 mg/2 mL 1 mg (PULMICORT) 1 mg INHALATION BID acetaminophen 650 mg tab(s) (TYLENOL) 650 mg ORAL q 6 H PRN dextrose 50% in water 25 mL syringe 12.5 g INTRAVENOUS PRN potassium chloride iv piggyback 20 mEq in sterile water 100 mL 20 mEq INTRAVENOUS PRN magnesium sulfate in water 2 g in sterile water 50 ml 2 g INTRAVENOUS PRN(NO DISPENSE) albuterol 2.5 mg /3 mL (0.083 %) 2.5 mg (PROVENTIL) 2.5 mg INHALATION q 2 H PRN calcium chloride 1 g in D5W 100 mL 1 g INTRAVENOUS PRN(NO DISPENSE) oxyCODONE-acetaminophen 5-325 mg 1-2 tablet (PERCOCET) 1-2 tablet ORAL q 4 H PRN morphine 2-4 mg injection 2-4 mg INTRAVENOUS q 1 H PRN pantoprazole 40 mg injection (PROTONIX) 40 mg INTRAVENOUS DAILY (6 AM) ondansetron (PF) 4 mg injection (ZOFRAN) 4 mg INTRAVENOUS q 6 H PRN propofol infusion (DIPRIVAN) 5-50 mcg/kg/min INTRAVENOUS CONTINUOUS ipratropium-albuterol 3 mL nebulizer solution (DUONEB) 3 mL INHALATION q 4 H atorvastatin 40 mg tab(s) (LIPITOR) 40 mg ORAL AT BEDTIME DATA: BLOOD GAS: Recent Labs 02/13/18 1945 RESPHCO3 25.1 PH 7.310* PCO2 51.4* [id number] 94.0* CBC: Recent Labs 02/19/18 0550 02/18/18 0520 02/17/18 1000 02/16/18 0600 02/15/18 0530 02/13/18 0450 WBC 10.36* 10.99* 11.32* 10.92* 10.27* 7.83 HB 11.6* 11.6* 11.7* 10.9* 11.3* 10.0* HCT 35.2* 35.4* 35.0* 32.5* 33.2* 30.3* PLT 254 235 221 201 179 105* MCV 96.4* 98.1* 95.9* 95.3 94.9 98.1* COAG: No results for input(s): APTT, INR in the last 168 hours. BMP: Recent Labs 02/19/18 0550 02/18/18 0520 02/17/18 1000 02/16/18 0600 02/15/18 0530 02/14/18 0503 02/13/18 19402/13/18 0450 GLUC 107* 122* 123* 110* 137* 143* 113* 107* NA 146* 146* 145 140 141 140 140 140 K 3.6 3.7 4.1 3.9 4.0 4.7 3.5 3.7 CHLOR 111* 110* 110* 112* 112* 109* 110* 110* CO2 31 30 31 28 26 23 25 23 ANION 8 10 8 4* 7* 13 9 11 BUN 39* 40* 36* 32* 20* 19* 20* 21* CREAT 0.80 0.88 0.88 0.84 0.83 0.78 0.93 0.86 CHEM: Recent Labs 02/19/18 0550 02/18/18 0520 02/17/18 1000 02/16/18 0600 02/15/18 0530 02/14/18 0503 02/13/18194402/13/18 0450 CA 8.5 8.3* 8.1* 8.1* 8.2* 8.2* 8.0* 8.0* MG -- -- 2.5 -- -- -- 2.2 -- HEPATIC: No results for input(s): ALKPHOS, ALT, AST, TBILI, LIPASE in the last 168 hours. Ammonia level today: 43 Recent Labs 02/13/181944 PH 7.310* EXAMINATION: ?CT HEAD W/O CONTRAST 02/18/2018 IMPRESSION: ? 1. ?No acute intracranial abnormality. 2. ?Decision to perform further imaging such as MRI should made on a clinical basis. Pre-OP Spirometry 02/08 FVC 3.47 L 78% FEV1 2.27 L 59% Ratio 65 Assessment/Plan ASSESSMENT: ACTIVE PROBLEM LIST Inguinal Hernia Without Mention of Obstruction Or Gangrene, Unilateral Or Unspecified, (Not Specified As Recurrent) Nstemi (Non-St Elevated Myocardial Infarction) ([facility]) Nsvt (Nonsustained Ventricular Tachycardia) ([facility]) Nicotine use disorder, F17.2 S/P CABG, 02/09/2018 Acute exacerbation of COPD secondary to HCAP. Improving. Acute hypoxic respiratory failure Acute encephalopathy. PLAN: - Will try Precedex drip instead of propofol drip - 20 minute EEG - Consult neurology. Continue full ventilator support. Patient will need to undergo tracheostomy and PEG tube placement if he is not extubated by Tuesday (. Continue bronchodilators. Finish antibiotic course. Patient has no need for steroids at this time as the patient has no active bronchospasm currently. Will avoid steroids as much as possible given his post-operative state. Has remained hemodynamically stable off pressors. Continue chest tube management as per Cardiovascular/Thoracic Surgery. Finally tolerating tube feeds at goal rate. Continue Reglan 10 mg IV every 6 hours. Continue supportive care. This patient has a high probability of sudden, clinically significant deterioration, which requires the highest level of physician preparedness to intervene urgently. I managed/supervised life or organ supporting interventions that required frequent physician assessment. I devoted my full attention to the direct care of this patient for the amount of time indicated below. Time I spent with family or surrogate(s) is included only if the patient was incapable of providing the necessary information or participating in medical decision making. Time devoted to teaching and to any procedures I billed separately is not included. PROGNOSIS: Fair Code status: Full Code. Discussed with Registered Nurse, PharmD, and Yg Owen (Cardiovascular/Thoracic Surgery PUBLIC ADDRESS SERVICER). Critical Care Documentation: The patient has the following organ/system impairment(s): Respiratory failure (Acute, with Hypoxemia) and coronary artery disease Discussed with BAKERY DELIVERER and Dr. Ojeda. Time spent providing critical care services: 41 minutes. SIGNATURE: Evelin Coronado MD [facility] PAGER:[phone] DATE of SERVICE: February 19, 2018 TIME of SERVICE: 3:55 PM GLUCOSE METER Collected: 02/19/2018 Status: F Source: [facility] 11:56 AM HEALTH SYSTEM REPOSITORY TYPE CODE TESTS RESULT OUT OF REFERENCE UNITS RANGE LAB GLUBL(LOINC 70-99 mg/dL ) High Glucose Meter 112 Result Comment: RN NOTIFIED Performed By: #### GLMET #### [place] [id number] AMMONIA Collected: 02/19/2018 Status: F Source: [facility] 11:10 AM HEALTH SYSTEM REPOSITORY TYPE CODE TESTS RESULT OUT OF REFERENCE UNITS RANGE LAB DAVID(LOINC 11-32 umol/L ) High alert Ammonia 43 Performed By: #### DAVID #### [facility] [address] [id number] PROGRESS Observed: 02/19/2018 Status: COMPLETED Source: [place] 9:20 AM CLINIC OTHER CAMPUS REPOSITORY HNO ID: [id number] Author: Beata Marin Service: Thoracic Surgery Author Type: Physician Type: Progress Notes Filed: 02/19/2018 9:24 AM Note Text: CT surg POD #10! S-still wakes up wild on vent O-CT head negative, I/O close to balance Labs noted A-Not much improvement/change P-?neuro eval? CHEST 1 VIEW Observed: 02/19/2018 Status: F Source: [facility] 6:34 AM HEALTH SYSTEM REPOSITORY Performed at [facility] APPROVED BY: Saul Garcia MD EXAMINATION: CHEST RADIOGRAPH (SINGLE VIEW AP OR PA) Clinical History: Intubated, respiratory distress M: [id number] Comparison: 02/18/2018 RESULT: Lines, tubes, and devices: No change position of the nasogastric tube and endotracheal tube and right PICC line. Lungs and pleura: No change in dense opacification left lower lung zone. Cardiomediastinal silhouette: Normal cardiomediastinal silhouette. Other: IMPRESSION: No acute interval change GLUCOSE METER Collected: 02/19/2018 Status: F Source: [facility] 6:32 AM HEALTH SYSTEM REPOSITORY TYPE CODE TESTS RESULT OUT OF REFERENCE UNITS RANGE LAB GLUBL(LOINC 70-99 mg/dL ) High Glucose Meter 100 Result Comment: RN NOTIFIED Performed By: #### GLMET #### [facility] [address] [place] [id number] HEMOGRAM Collected: 02/19/2018 Status: F Source: [facility] 5:50 AM HEALTH SYSTEM REPOSITORY TYPE CODE TESTS RESULT OUT OF REFERENCE UNITS RANGE LAB WBC(LOINC) 4.23-9.07 thou/cmm High WBC 10.36 LAB RBC(LOINC) 4.63-6.08 mil/cmm Low RBC 3.65 LAB HGB(LOINC) 13.7-17.5 g/dL Low Hgb 11.6 LAB HCT(LOINC) 40.1-51.0 % Low Hct 35.2 LAB MCV(LOINC) 83.2-95.6 fl High MCV 96.4 LAB MCH(LOINC) 25.7-32.2 pg MCH 31.8 LAB MCHC(LOINC) 32.3-36.5 % MCHC 33.0 LAB RDW(LOINC) 11.6-14.4 % RDW 13.6 LAB RDWSD(LOINC 36.1-45.8 fl ) High RDW SD 48.4 LAB PLT(LOINC) 141-365 thou/cmm Platelet 254 LAB MPV(LOINC) 8.7-12.0 fl MPV 10.3 Performed By: #### CBC1 #### [place] [id number] BASIC PANEL Collected: 02/19/2018 Status: F Source: [facility] 5:50 AM HEALTH SYSTEM REPOSITORY TYPE CODE TESTS RESULT OUT OF REFERENCE UNITS RANGE LAB NA(LOINC) 136-145 mEq/L Sodium High Blood 146 LAB K(LOINC) 3.5-5.1 mEq/L Potassium Blood 3.6 LAB CL(LOINC) 98-107 mEq/L Chloride High Blood 111 LAB CO2(LOINC) 21-32 mEq/L CO2 Blood 31 LAB GLU(LOINC) 70-99 mg/dL Glucose High Blood 107 LAB BUN(LOINC) 7-18 mg/dL BUN High Blood 39 LAB CREA(LOINC 0.67-1.17 mg/dL ) Creatinine Blood 0.80 LAB CA(LOINC) 8.5-10.1 mg/dL Calcium Blood 8.5 LAB ANGAP(LOIN 8-16 C) Anion Gap 8 Performed By: #### P8 #### [place] [address] MDRD GFR Collected: 02/19/2018 Status: F Source: [facility] 5:50 AM HEALTH SYSTEM REPOSITORY TYPE CODE TESTS RESULT OUT OF RANGE REFERENCE UNITS LAB GFRFN(LOINC >60mL/min/1.73m ) 2 eGFR >60 Result Comment: If the patient is , multiply the result by 1.210. Performed By: #### GFR #### [facility] [address] [place], [place] [address] GLUCOSE METER Collected: 02/19/2018 Status: F Source: [facility] 1:14 AM HEALTH SYSTEM REPOSITORY TYPE CODE TESTS RESULT OUT OF REFERENCE UNITS RANGE LAB GLUBL(LOINC 70-99 mg/dL ) High Glucose Meter 123 Result Comment: RN NOTIFIED Performed By: #### GLMET #### [facility] [address] [id number] GLUCOSE METER Collected: 02/18/2018 Status: F Source: [facility] 6:04 PM HEALTH SYSTEM REPOSITORY TYPE CODE TESTS RESULT OUT OF REFERENCE UNITS RANGE LAB GLUBL(LOINC 70-99 mg/dL ) High Glucose Meter 116 Result Comment: RN NOTIFIED Performed By: #### GLMET #### [facility] [address] [id number] PROGRESS Observed: 02/18/2018 Status: COMPLETED Source: [place] 2:56 PM CLINIC OTHER CAMPUS REPOSITORY O ID: [id number] Author: Evelin Coronado Service: Critical Care Author Type: Physician Type: Progress Notes Filed: 02/18/2018 3:05 PM Note Text: CRITICAL CARE PROGRESS NOTE SERVICE DATE: February 18, 2018 SERVICE TIME: 2:56 PM Admission Date: 02/07/2018 AGE: [age] year old LOS: 11 days REASON FOR ICU ADMISSION: ACTIVE PROBLEM LIST Inguinal Hernia Without Mention of Obstruction Or Gangrene, Unilateral Or Unspecified, (Not Specified As Recurrent) Nstemi (Non-St Elevated Myocardial Infarction) ([facility]) Nsvt (Nonsustained Ventricular Tachycardia) ([facility]) Nicotine use disorder, F17.2 F/U VDRF Subjective OVERNIGHT EVENTS: RN reports pt not tolerating sedation holiday. Becomes agitated and shakes his head to and fro rigorously. Objective VITAL SIGNS (last 24hrs min/max): Temp Av.4 ?C (99.3 ?F) Min: 36.5 ?C (97.7 ?F) Max: 37.8 ?C (100 ?F) Pulse Av.3 Min: 69 Max: 97 Cuff No Data Recorded Pain Score: 0/10 24 hour Intake AND Output: Intake/Output Summary (Last 24 hours) at 02/18/18 1456 Last data filed at 02/18/18 1400 Gross per 24 hour Intake 3264.7 ml Output 1904 ml Net 1360.7 ml PHYSICAL EXAM: GENERAL: well built 67yo WM, sedated, intubated RRR Few scattered crackles bilaterally without wheezing bilaterally anteriorly. Scattered bowel sounds No pedal edema bilaterally. Poor turgor, but dry, intact skin. : high w/ clear roman/yellow. GI: OG in place, TF's @ 47cc/h. VENTILATOR INFORMATION: WEANING DATA: Settings: Invasive Ventilator Mode: Pressure Regulated Volume Control (02/18/18 1300) %FIO2: 40 Set Ventilator Respiratory Rate (BPM): 15 Tidal Volume Set (mL): 550 PEEP/CPAP (cm H2O): 5 Inspiratory Pressure Set (cm H2O): 0.9 Patient Data: Inspiratory:Expiratory Ratio: 1:2.6 Peak Inspiratory Pressure (cm H2O): 12 Plateau Pressure (cm H2O): 14 Weaning Data: Spontaneous Respiratory Rate (BPM): 17.7 INPATIENT MEDICATIONS: Current hospital medications: diltiazem 30 mg tab(s) (CARDIZEM) 30 mg NASOGASTRIC q 6 H 0.9% NaCl 20 mL 20 mL INTRAVENOUS PRN 0.9% NaCl 10 mL 10 mL INTRAVENOUS q 12 H 0.9% NaCl 20 mL 20 mL INTRAVENOUS PRN aspirin 162 mg chewable tab(s) 162 mg ORAL DAILY metoprolol tartrate (short acting) (LOPRESSOR) tab(s) 75 mg 75 mg ORAL q 8 H enoxaparin 105 mg injection (LOVENOX) 1 mg/kg/dose SUBCUTANEOUS q 12 HR fentaNYL iv infusion 20 mcg/mL in NaCl 0.9% 100 mL 25 mcg/hr INTRAVENOUS CONTINUOUS nystatin 5 mL oral liquid (MYCOSTATIN) 5 mL ORAL QID metoclopramide HCl 10 mg injection (REGLAN) 10 mg INTRAVENOUS q 6 H LORazepam 2 mg injection (ATIVAN) 2 mg INTRAVENOUS q 4 H PRN dextrose 40 % 15 g 15 g ORAL PRN glucagon 1 mg injection (GLUCAGEN) 1 mg INTRAMUSCULAR PRN dextrose 50% in water 25 mL syringe 12.5 g INTRAVENOUS PRN insulin regular human injection (short acting) (NovoLIN R,HumuLIN R) SUBCUTANEOUS q 6 H bisacodyl 10 mg suppository (DULCOLAX) 10 mg RECTAL DAILY PRN polyethylene glycol 3350 17 g packet (MIRALAX, GLYCOLAX) 17 g ORAL DAILY senna-docusate 8.6-50 mg 1 tablet (SENNA-S) 1 tablet ORAL BID pill splitter (patient-specific) 1 Each Miscell. (Med.Supl.;Non- Drugs) PRN Chlorhexidine Gluconate 0.12 % 15 mL (PERIDEX) 15 mL ORAL q 12 H budesonide 0.5 mg/2 mL 1 mg (PULMICORT) 1 mg INHALATION BID acetaminophen 650 mg tab(s) (TYLENOL) 650 mg ORAL q 6 H PRN dextrose 50% in water 25 mL syringe 12.5 g INTRAVENOUS PRN potassium chloride iv piggyback 20 mEq in sterile water 100 mL 20 mEq INTRAVENOUS PRN magnesium sulfate in water 2 g in sterile water 50 ml 2 g INTRAVENOUS PRN(NO DISPENSE) albuterol 2.5 mg /3 mL (0.083 %) 2.5 mg (PROVENTIL) 2.5 mg INHALATION q 2 H PRN calcium chloride 1 g in D5W 100 mL 1 g INTRAVENOUS PRN(NO DISPENSE) oxyCODONE-acetaminophen 5-325 mg 1-2 tablet (PERCOCET) 1-2 tablet ORAL q 4 H PRN morphine 2-4 mg injection 2-4 mg INTRAVENOUS q 1 H PRN pantoprazole 40 mg injection (PROTONIX) 40 mg INTRAVENOUS DAILY (6 AM) ondansetron (PF) 4 mg injection (ZOFRAN) 4 mg INTRAVENOUS q 6 H PRN propofol infusion (DIPRIVAN) 5-50 mcg/kg/min INTRAVENOUS CONTINUOUS ipratropium-albuterol 3 mL nebulizer solution (DUONEB) 3 mL INHALATION q 4 H atorvastatin 40 mg tab(s) (LIPITOR) 40 mg ORAL AT BEDTIME DATA: BLOOD GAS: Recent Labs 02/13/18 1945 RESPHCO3 25.1 PH 7.310* PCO2 51.4* [id number] 94.0* CBC: Recent Labs 02/18/18 0520 02/17/18 1000 02/16/18 0600 02/15/18 0530 02/13/18 0450 02/12/18 0501 WBC 10.99* 11.32* 10.92* 10.27* 7.83 11.10* HB 11.6* 11.7* 10.9* 11.3* 10.0* 10.2* HCT 35.4* 35.0* 32.5* 33.2* 30.3* 30.5* PLT 235 221 201 179 105* 96* MCV 98.1* 95.9* 95.3 94.9 98.1* 96.5* COAG: No results for input(s): APTT, INR in the last 168 hours. BMP: Recent Labs 02/18/18 0520 02/17/18 1000 02/16/18 0600 02/15/18 0530 02/14/18 0503 02/13/18194402/13/18 0450 02/12/18 0501 GLUC 122* 123* 110* 137* 143* 113* 107* 109* NA 146* 145 140 141 140 140 140 141 K 3.7 4.1 3.9 4.0 4.7 3.5 3.7 3.9 CHLOR 110* 110* 112* 112* 109* 110* 110* 113* CO2 30 31 28 26 23 25 23 25 ANION 10 8 4* 7* 13 9 11 7* BUN 40* 36* 32* 20* 19* 20* 21* 29* CREAT 0.88 0.88 0.84 0.83 0.78 0.93 0.86 1.19* CHEM: Recent Labs 02/18/18 0520 02/17/18 1000 02/16/18 0600 02/15/18 0530 02/14/18 0503 02/13/18194402/13/18 0450 02/12/18 0501 CA 8.3* 8.1* 8.1* 8.2* 8.2* 8.0* 8.0* 8.2* MG -- 2.5 -- -- -- 2.2 -- -- HEPATIC: No results for input(s): ALKPHOS, ALT, AST, TBILI, LIPASE in the last 168 hours. URINALYSIS: Recent Labs 02/13/181944 PH 7.310* Assessment/Plan ASSESSMENT: ACTIVE PROBLEM LIST Inguinal Hernia Without Mention of Obstruction Or Gangrene, Unilateral Or Unspecified, (Not Specified As Recurrent) Nstemi (Non-St Elevated Myocardial Infarction) ([facility]) Nsvt (Nonsustained Ventricular Tachycardia) ([facility]) Nicotine use disorder, F17.2 S/P CABG, 02/09/2018 Acute exacerbation of COPD secondary to HCAP Acute hypoxic respiratory failure Acute encephalopathy. PLAN: Continue full ventilator support. Attempting to wean though his respiratory rate on the ventilator is 28-30 times/minute at times. Patient will need to undergo tracheostomy and PEG tube placement if he is not extubated by Tuesday (. Continue bronchodilators. Finish antibiotic course. Patient has no need for steroids at this time as the patient has no active bronchospasm currently. Will avoid steroids as much as possible given his post-operative state. Has remained hemodynamically stable off pressors. Continue chest tube management as per Cardiovascular/Thoracic Surgery. Finally tolerating tube feeds at goal rate. Continue Reglan 10 mg IV every 6 hours. Continue supportive care. This patient has a high probability of sudden, clinically significant deterioration, which requires the highest level of physician preparedness to intervene urgently. I managed/supervised life or organ supporting interventions that required frequent physician assessment. I devoted my full attention to the direct care of this patient for the amount of time indicated below. Time I spent with family or surrogate(s) is included only if the patient was incapable of providing the necessary information or participating in medical decision making. Time devoted to teaching and to any procedures I billed separately is not included. PROGNOSIS: Fair Code status: Full Code. Discussed with Registered Nurse, PharmD, and Yg Owen (Cardiovascular/Thoracic Surgery PUBLIC ADDRESS SERVICER). Critical Care Documentation: The patient has the following organ/system impairment(s): Respiratory failure (Acute, with Hypoxemia) and coronary artery disease Time spent providing critical care services: 35 minutes. SIGNATURE: Evelin Coronado MD [facility] PAGER:[phone] DATE of SERVICE: February 18, 2018 TIME of SERVICE: 2:[address] HEAD W/O CONTRAST Observed: 02/18/2018 Status: F Source: [facility] 2:33 PM HEALTH SYSTEM REPOSITORY Performed at [facility] APPROVED BY: Saul Garcia MD EXAMINATION: CT HEAD W/O CONTRAST HISTORY: Change in mental status, status post CABG TECHNIQUE: Serial axial and coronal images without IV contrast were obtained from the vertex to the foramen magnum. MQ: [id number] CT Dose-Length Product (DLP): 828 mGy*cm CT Dose Reduction Employed: Yes COMPARISON: None. RESULT: Post-operative change: None. Acute change: No evidence of an acute infarct or other acute parenchymal process. Hemorrhage: No evidence of acute intracranial hemorrhage. Mass Lesion / Mass Effect: There is no evidence of an intracranial mass or extraaxial fluid collection. No significant mass effect. Chronic change: None apparent. Parenchyma: There is no significant volume loss. The brain parenchyma is otherwise within normal limits for age. Ventricles: The ventricles are within normal limits of size and configuration for age. Paranasal sinuses and skull base: The visualized paranasal sinuses are grossly clear. The skull base and imaged soft tissues are unremarkable. IMPRESSION: 1. No acute intracranial abnormality. 2. Decision to perform further imaging such as MRI should made on a clinical basis. ABDOMEN 1 VIEW Observed: 02/18/2018 Status: F Source: [facility] 1:56 PM HEALTH SYSTEM REPOSITORY Performed at [facility] APPROVED BY: Saul Garcia MD EXAM TITLE: ABDOMEN 1 VIEW DATE: 02/18/2018 13:45 COMPARISON: None. CLINICAL INDICATION/HISTORY: NG tube placement TECHNIQUE: A single view of the abdomen is presented. FINDINGS: Multiple epicardial wires. Right-sided central line catheter. Nonspecific gaseous distention of loops of colon on the left side of the abdomen NG tube is coiled in the left upper quadrant region of stomach. There is no abnormal calcifications. Multilevel degenerative change throughout the spine IMPRESSION: NG tube is coiled in the left upper quadrant region of stomach. GLUCOSE METER Collected: 02/18/2018 Status: F Source: [facility] 11:58 AM HEALTH SYSTEM REPOSITORY TYPE CODE TESTS RESULT OUT OF REFERENCE UNITS RANGE LAB GLUBL(LOINC 70-99 mg/dL ) High Glucose Meter 118 Performed By: #### GLMET #### [place] [id number] PROGRESS Observed: 02/18/2018 Status: COMPLETED Source: [place] 11:32 AM [facility] OTHER CAMPUS REPOSITORY HNO ID: [id number] Author: Beata Marin Service: Thoracic Surgery Author Type: Physician Type: Progress Notes Filed: 02/18/2018 11:34 AM Note Text: S-still on vent w/o much change O-still in and out of afib Labs noted CXR +/- A-Stable but not improving P-adjust meds, on therapeutic lovenox, check head CT PROGRESS Observed: 02/18/2018 Status: COMPLETED Source: [place] 9:25 AM [facility] OTHER CAMPUS REPOSITORY HNO ID: [id number] Author: Krystal Valdez) JOSUE Miller.[facility] Service: Critical Care Author Type: Nurse Specialist Type: Progress Notes Filed: 02/18/2018 9:37 AM Note Text: MICU - PROGRESS NOTE SERVICE DATE: 02/18/2018 SERVICE TIME: 9:26 AM Admission Date: 02/07/2018 AGE: [age] year old LOS: 11 days Subjective REASON FOR ICU ADMISSION: Respiratory Failure Objective PROBLEMS: ACTIVE PROBLEM LIST Inguinal Hernia Without Mention of Obstruction Or Gangrene, Unilateral Or Unspecified, (Not Specified As Recurrent) Nstemi (Non-St Elevated Myocardial Infarction) ([facility]) Nsvt (Nonsustained Ventricular Tachycardia) ([facility]) Nicotine use disorder, F17.2 No past medical history on file. PAST SURGICAL HISTORY Procedure Laterality Date - ORTHOPEDICS SURGERY HX - REPAIR ING HERNIA,5+Y/O,REDUCIBL 1990 Hernia repair, inguinal,left Social History Marital status: Single Spouse name: Years of education: Number of children: Social History Main Topics Smoking status: Current Every Day Smoker Packs/day: 2.00 Years: 25.00 Types: Cigarettes Alcohol use: No Drug use: No Sexual activity: Yes Partners with: Female Other Topics Concern Service No Blood Transfusions No Caffeine Concern No Occupational Exposure No Hobby Hazards No Sleep Concern No Stress Concern No Weight Concern No Special Diet No Back Care No Exercise No Bike Helmet No Seat Belt No Self-Exams No VITAL SIGNS (last 24hrs min/max): Temp Av.4 ?C (99.3 ?F) Min: 37.3 ?C (99.1 ?F) Max: 37.5 ?C (99.5 ?F) Pulse Av.8 Min: 70 Max: 114 Arterial BP 1 Min: 84/46 Max: 158/67 Cuff No Data Recorded Pain Score: 0/10 Vital signs reviewed. BP 126/78 Pulse 99 Temp (Src) 99.1 (High Thermistor) Resp 16 Ht 5' 10.984 (1.80m) Wt 242 lb 8.1 oz (110.0kg) SpO2 93% BMI 33.84 kg/(m2). Temp (24hrs), Av.4 ?C (99.3 ?F), Min:37.3 ?C (99.1 ?F), Max:37.5 ?C (99.5 ?F) NET FLUID BALANCE Intake/Output Summary (Last 24 hours) at 02/18/18 0926 Last data filed at 02/18/18 0900 Gross per 24 hour Intake 2680.5 ml Output 1633 ml Net 1047.5 ml MEDICATIONS Current Facility-Administered Medications: 0.9% NaCl 20 mL 20 mL INTRAVENOUS PRN 0.9% NaCl 10 mL 10 mL INTRAVENOUS q 12 H 0.9% NaCl 20 mL 20 mL INTRAVENOUS PRN furosemide 40 mg oral liquid CUP (LASIX) 40 mg ORAL BID 9a/5p aspirin 162 mg chewable tab(s) 162 mg ORAL DAILY metoprolol tartrate (short acting) (LOPRESSOR) tab(s) 75 mg 75 mg ORAL q 8 H enoxaparin 105 mg injection (LOVENOX) 1 mg/kg/dose SUBCUTANEOUS q 12 HR fentaNYL iv infusion 20 mcg/mL in NaCl 0.9% 100 mL 25 mcg/hr INTRAVENOUS CONTINUOUS dilTIAZem 100 mg in D5W 100 mL ADD-Boyden (CARDIZEM) 5-15 mg/hr INTRAVENOUS CONTINUOUS nystatin 5 mL oral liquid (MYCOSTATIN) 5 mL ORAL QID metoclopramide HCl 10 mg injection (REGLAN) 10 mg INTRAVENOUS q 6 H LORazepam 2 mg injection (ATIVAN) 2 mg INTRAVENOUS q 4 H PRN dextrose 40 % 15 g 15 g ORAL PRN Or glucagon 1 mg injection (GLUCAGEN) 1 mg INTRAMUSCULAR PRN Or dextrose 50% in water 25 mL syringe 12.5 g INTRAVENOUS PRN insulin regular human injection (short acting) (NovoLIN R,HumuLIN R) SUBCUTANEOUS q 6 H bisacodyl 10 mg suppository (DULCOLAX) 10 mg RECTAL DAILY PRN polyethylene glycol 3350 17 g packet (MIRALAX, GLYCOLAX) 17 g ORAL DAILY senna-docusate 8.6-50 mg 1 tablet (SENNA-S) 1 tablet ORAL BID pill splitter (patient-specific) 1 Each Miscell. (Med.Supl.;Non- Drugs) PRN Chlorhexidine Gluconate 0.12 % 15 mL (PERIDEX) 15 mL ORAL q 12 H budesonide 0.5 mg/2 mL 1 mg (PULMICORT) 1 mg INHALATION BID acetaminophen 650 mg tab(s) (TYLENOL) 650 mg ORAL q 6 H PRN dextrose 50% in water 25 mL syringe 12.5 g INTRAVENOUS PRN potassium chloride iv piggyback 20 mEq in sterile water 100 mL 20 mEq INTRAVENOUS PRN magnesium sulfate in water 2 g in sterile water 50 ml 2 g INTRAVENOUS PRN(NO DISPENSE) albuterol 2.5 mg /3 mL (0.083 %) 2.5 mg (PROVENTIL) 2.5 mg INHALATION q 2 H PRN calcium chloride 1 g in D5W 100 mL 1 g INTRAVENOUS PRN(NO DISPENSE) oxyCODONE-acetaminophen 5-325 mg 1-2 tablet (PERCOCET) 1-2 tablet ORAL q 4 H PRN morphine 2-4 mg injection 2-4 mg INTRAVENOUS q 1 H PRN pantoprazole 40 mg injection (PROTONIX) 40 mg INTRAVENOUS DAILY (6 AM) ondansetron (PF) 4 mg injection (ZOFRAN) 4 mg INTRAVENOUS q 6 H PRN propofol infusion (DIPRIVAN) 5-50 mcg/kg/min INTRAVENOUS CONTINUOUS ipratropium-albuterol 3 mL nebulizer solution (DUONEB) 3 mL INHALATION q 4 H atorvastatin 40 mg tab(s) (LIPITOR) 40 mg ORAL AT BEDTIME Lines, Drains, and Airways Line Arterial Line 02/09/18 0830 Arterial Line Left Radial 9 days Central Line Double Lumen 02/17/18 1310 Peripherally Inserted (PICC) Right Arm 5.0 Vietnamese less than 1 day Drain GI Feed/Drain 02/09/18 08 Oral Gastric Midline 9 days Indwelling Urinary Catheter 02/09/18 0838 Temperature Monitoring 16 Fr 9 days Airway Airway Endotracheal Tube 02/09/18 0800 9 days PHYSICAL EXAM PERFORMED: Cardiovascular: Irregular rhythm Atrial fib Respiratory: Rhonchi bilat %FIO2 Min: 40 Max: 40 Abdomen: Soft Extremities: Edema- Yes Generalized edema Neurologic: Sedated on ventilator Respiratory/Nursing Documentation: O2 Therapy: Ventilator (02/18/18827) Invasive Ventilator Mode: Pressure Regulated Volume Control (02/18/18827) Set Ventilator Respiratory Rate (BPM): 15 (02/18/18827) Total Respiratory Rate (BPM): 19 (02/18/18827) Tidal Volume Set (mL): 550 (02/18/18827) Exhaled Tidal Volume (mL): 726 (02/18/18827) Minute Volume (L): 12 (02/18/18827) Peak Inspiratory Pressure (cm H2O): 13 (02/18/18827) PEEP/CPAP (cm H2O): 5 (02/18/18827) HEMODYNAMIC DATA: Reviewed NUTRITION: Enteral Feeds: Yes Tube Feeds Impact peptide at 47ml/hr DATA: Diagnostic tests reviewed for today's visit, films/specimens were personally reviewed by me: Most recent labs and imaging results. LABS: Recent Labs 02/18/18 0520 02/17/18 1000 WBC 10.99* 11.32* RBC 3.61* 3.65* HB 11.6* 11.7* HCT 35.4* 35.0* MCV 98.1* 95.9* PLT 235 221 GLUC 122* 123* BUN 40* 36* CREAT 0.88 0.88 NA 146* 145 K 3.7 4.1 CHLOR 110* 110* CO2 30 31 CA 8.3* 8.1* MG -- 2.5 ABG: Assessment/Plan IMPRESSION: Critical Care Documentation: The patient has the following organ/system impairment(s): Respiratory failure (with Hypoxemia) 1. SP CABG POD #9 2.Acute COPD exacerbation 2/2 HCAP Klebsiella and E. Coli HCAP 3.Atrial fib-continue IV Cardiazem 4. Plan trach and PEG if unable to wean from ventilator within next 48hrs 5. Volume overload-lasix 40mg BID 6. Fentanyl drip at 24 mcg/hr This patient has a high probability of sudden, clinically significant deterioration, which requires the highest level of physician preparedness to intervene urgently. I managed/supervised life or organ supporting interventions that required frequent physician assessment. I devoted my full attention to the direct care of this patient for the amount of time indicated below. Time I spent with family or surrogate(s) is included only if the patient was incapable of providing the necessary information or participating in medical decision making. Time devoted to teaching is not included. Discussed with staff/patient/family Time spent providing critical care services: 40 minutes excluding procedures. SIGNATURE: Krystal Miller APRN.BEHAVIORAL HEALTH CONSULTANT PATIENT NAME: Jeffrey Cullen DATE: February 18, 2018 TIME: 9:26 AM CHEST 1 VIEW Observed: 02/18/2018 Status: F Source: [facility] 8:56 AM HEALTH SYSTEM REPOSITORY Performed at [facility] APPROVED BY: Saul Garcia MD EXAMINATION: CHEST RADIOGRAPH (SINGLE VIEW AP OR PA) Clinical History: Dyspnea, intubated M: [id number]_4 Comparison: 02/16/2018 RESULT: Lines, tubes, and devices: Placement of right-sided PICC line tip near the caval atrial junction. Endotracheal tube tip in the midline above the nelda. Additional tubing is seen to the mid esophagus level which may represent nasogastric tube which is been retracted into the esophagus from the previous exam. Lungs and pleura: No change in opacification of the lower lung zones greater left side consistent with parenchymal consolidation and pleural effusions Cardiomediastinal silhouette: Enlarged, stable Other: IMPRESSION: Tubing is seen to the mid esophagus level which may represent nasogastric tube which is been retracted into the esophagus from the previous exam. Results of study submitted to be called to ordering physician following interpretation on 02/18/2018 at 1:00 PM GLUCOSE METER Collected: 02/18/2018 Status: F Source: [facility] 6:17 AM HEALTH SYSTEM REPOSITORY TYPE CODE TESTS RESULT OUT OF REFERENCE UNITS RANGE LAB GLUBL(LOINC 70-99 mg/dL ) High Glucose Meter 110 Result Comment: RN NOTIFIED Performed By: #### GLMET #### [place] [address] HEMOGRAM Collected: 02/18/2018 Status: F Source: [facility] 5:20 AM HEALTH SYSTEM REPOSITORY TYPE CODE TESTS RESULT OUT OF REFERENCE UNITS RANGE LAB WBC(LOINC) 4.23-9.07 thou/cmm High WBC 10.99 LAB RBC(LOINC) 4.63-6.08 mil/cmm Low RBC 3.61 LAB HGB(LOINC) 13.7-17.5 g/dL Low Hgb 11.6 LAB HCT(LOINC) 40.1-51.0 % Low Hct 35.4 LAB MCV(LOINC) 83.2-95.6 fl High MCV 98.1 LAB MCH(LOINC) 25.7-32.2 pg MCH 32.1 LAB MCHC(LOINC) 32.3-36.5 % MCHC 32.8 LAB RDW(LOINC) 11.6-14.4 % RDW 13.2 LAB RDWSD(LOINC 36.1-45.8 fl ) High RDW SD 47.5 LAB PLT(LOINC) 141-365 thou/cmm Platelet 235 LAB MPV(LOINC) 8.7-12.0 fl MPV 10.2 Performed By: #### CBC1 #### [place] [address] BASIC PANEL Collected: 02/18/2018 Status: F Source: [facility] 5:20 AM HEALTH SYSTEM REPOSITORY TYPE CODE TESTS RESULT OUT OF REFERENCE UNITS RANGE LAB NA(LOINC) 136-145 mEq/L Sodium High Blood 146 LAB K(LOINC) 3.5-5.1 mEq/L Potassium Blood 3.7 LAB CL(LOINC) 98-107 mEq/L Chloride High Blood 110 LAB CO2(LOINC) 21-32 mEq/L CO2 Blood 30 LAB GLU(LOINC) 70-99 mg/dL Glucose High Blood 122 LAB BUN(LOINC) 7-18 mg/dL BUN High Blood 40 LAB CREA(LOINC 0.67-1.17 mg/dL ) Creatinine Blood 0.88 LAB CA(LOINC) 8.5-10.1 mg/dL Low Calcium Blood 8.3 LAB ANGAP(LOIN 8-16 C) Anion Gap 10 Performed By: #### P8 #### [place] [address] MDRD GFR Collected: 02/18/2018 Status: F Source: [facility] 5:20 AM HEALTH SYSTEM REPOSITORY TYPE CODE TESTS RESULT OUT OF RANGE REFERENCE UNITS LAB GFRFN(LOINC >60mL/min/1.73m ) 2 eGFR >60 Result Comment: If the patient is , multiply the result by 1.210. Performed By: #### GFR #### [place] [address] GLUCOSE METER Collected: 02/17/2018 Status: F Source: [facility] 11:58 PM HEALTH SYSTEM REPOSITORY TYPE CODE TESTS RESULT OUT OF REFERENCE UNITS RANGE LAB GLUBL(LOINC 70-99 mg/dL ) High Glucose Meter 130 Result Comment: RN NOTIFIED Performed By: #### GLMET #### [place] [address] ALLIED HEALTH Observed: 02/17/2018 Status: COMPLETED Source: [place] 10:00 PM CLINIC OTHER CAMPUS REPOSITORY HNO ID: [id number] Author: Sr Novoa (Transformer Assembly Supervisor) Chaplain Remy Service: Spiritual Care Author Type: Transformer Assembly Supervisor Type: Allied Health Filed: 02/17/2018 10:01 PM Note Text: SPIRITUAL CARE PROGRESS NOTE SERVICE DATE: 02/17/2018 SERVICE TIME: 0626 PM Pt is intubated and resting peacefully. I left a compassionate note on the small table for the patient/family/friends. To contact the Spiritual Care Department: Please call 00 SIGNATURE: Sommer AlbertoChaplain PATIENT NAME: Jeffrey Cullen DATE: February 17, 2018 TIME: 10:00 PM PAGER/CONTACT #: [phone] GLUCOSE METER Collected: 02/17/2018 Status: F Source: [facility] 6:20 PM HEALTH SYSTEM REPOSITORY TYPE CODE TESTS RESULT OUT OF REFERENCE UNITS RANGE LAB GLUBL(LOINC 70-99 mg/dL ) High Glucose Meter 112 Result Comment: RN NOTIFIED Performed By: #### GLMET #### [place] [address] PT ED Observed: 02/17/2018 Status: COMPLETED Source: [place] 1:22 PM CLINIC OTHER CAMPUS REPOSITORY HNO ID: [id number] Author: Jayla Johnson) RAINA Pineda Service: PICC Team Author Type: Registered Nurse Type: Patient Education Filed: 02/17/2018 1:24 PM Note Text: PATIENT EDUCATION TOPIC: PROCEDURE / SURGERY: Procedure/Surgery: PICC Insertion PATIENT NAME: Jeffrey Cullen PATIENT LOCATION: [place] [address]* READINESS TO LEARN COGNITIVE ABILITY: On vent MOTIVATION TO LEARN: Critically Ill FAMILY SUPPORT: Unable to assess - Family not present INSTRUCTION PROVIDED TO: Family member PATIENT LEARNS BEST BY: N/A FACTORS AFFECTING LEARNING: None Unable to assess PHYSICAL LIMITATIONS AFFECTING LEARNING: Critically ill LEARNING RESPONSE DIAGNOSIS: ADULT: access PATIENT/FAMILY RESPONSE: Verbalizes understanding of: POST-PROCEDURE INSTRUCTIONS-Correct actions to take to reduce post procedure complications PRE-PROCEDURE INSTRUCTIONS-Correct action to take to follow pre-procedure instructions METHOD OF INSTRUCTION: Verbal instruction FOLLOW-UP PLAN: Complete - No need for follow-up INSTRUCTIONAL AIDS USED: Pamphlet SUPPLEMENTAL MATERIAL PROVIDED TO PATIENT: None REFERRAL (RECOMMENDATION): None Electronically Signed By: Jayla Pineda RN PROCEDURE Observed: 02/17/2018 Status: COMPLETED Source: [place] 1:17 PM CLINIC OTHER CAMPUS REPOSITORY O ID: [id number] Author: Krystal (Rn) RAINA Joseph Service: PICC Team Author Type: Registered Nurse Type: Procedures Filed: 02/17/2018 1:22 PM Note Text: PICC NURSE INSERTION NOTE DATE OF PROCEDURE: February 17, 2018 TIME OF PROCEDURE: 1220pm ORDERING PHYSICIAN: berkley INFORMED CONSENT: Obtained per hospital policy. INDICATION FOR LINE PLACEMENT: Incompatible drugs/need more lines available IV therapy over six days PH/Osmolality CONDITION OF LINE PLACEMENT: Sterile PRIMARY PROCEDURALIST: Krystal Joseph RN RIGHT OF WAY CLEARER: N/A PRE-PROCEDURE REVIEW ALLERGIES No Known Allergies Known History of Venous Thrombosis: No Known History of Permanent Pacemaker or Automated Implanted Cardiac Device: No Previous Breast Surgery of Lymph Node Dissection: No History of Renal Disease with Arterio-Venous Fistula in Place or Planned: No Ultrasound Assessment Complete: Yes PROCEDURE NARRATIVE SAFE PRACTICE Hand Hygiene per Hospital Policy: Yes Skin Preparation Unit Dose Applicator Used: Chloraprep (CHG + alcohol), allowed to dry. Procedure Surface Cleansed with Antimicrobial Wipes: Yes Barriers Used by Proceduralist and all Assisting Personnel: Yes UNIVERSAL PROTOCOL / SAFETY CHECKLIST Procedure to be performed: picc Sign in Communication: Completed Time Out: Team Confirms the Correct Patient, Correct Procedure, Correct Site and Site Marking, Correct Position (if applicable), Prep and Dry Time (if applicable). Time: 1220 Affirmation of Time Out: N/A Sign Out Discussion: Completed Krystal Joseph RN CATHETER PLACEMENT Brand: Rated People Lot: [id number] Number of Lumens: 2 Type of PICC: Power Injectable PICC Lumen Size: 5 Vietnamese PLACEMENT TECHNIQUE Lidocaine: Yes. Strength: 1% Volume 0.5cc Modified Seldinger Technique Used to Place Line via the Right Basilic Ultrasound Guidance: Yes Number of Attempts at Insertion: 1 Internal Length: 47 cm External Length: 2 cm Trim Length: 49 cm Mid-Arm Circumference Above Insertion Site: 34 centimeters Post Insertion Pain Level Related to Procedure: 0 Action Taken to Address Pain: None needed Verified Placement: Blood return, Ultrasound and Tip location system or device indicates the tip is located in the SVC/CAJ. Line was Flushed with 20 cc normal saline Line Secured with: Securement device Sterile Dressing Applied and Dated: Yes Sterile Caps on all Ports Prior to Leaving Procedure Area: Yes SPECIMENS: None COMPLICATIONS: None Patient Education Materials: Placed in chart All aspects of CDC bundle observed for PICC insertion. QUESTIONS or PROBLEMS: Call [phone] SIGNATURE: Krystal Joseph RN PATIENT NAME: Jeffrey Cullen DATE: February 17, 2018 TIME: 1:18 PM PAGER/CONTACT PHONE: GLUCOSE METER Collected: 02/17/2018 Status: F Source: [facility] 12:08 PM HEALTH SYSTEM REPOSITORY TYPE CODE TESTS RESULT OUT OF REFERENCE UNITS RANGE LAB GLUBL(LOINC 70-99 mg/dL ) High Glucose Meter 118 Result Comment: RN NOTIFIED Performed By: #### GLMET #### [place] [address] PROGRESS Observed: 02/17/2018 Status: COMPLETED Source: [place] 11:44 AM CLINIC OTHER CAMPUS REPOSITORY HNO ID: [id number] Author: Misti Stein (Pa) Service: Cardiac Surgery Author Type: Physician Tool Inspector Type: Progress Notes Filed: 02/17/2018 2:34 PM Note Text: CARDIOTHORACIC SURGERY POSTOP PROGRESS NOTE SERVICE DATE: 02/17/2018 SERVICE TIME: 11:44 AM Subjective S/P SURGERY: Procedure(s) (LRB): BYPASS GRAFT ARTERY CORONARY ON-PUMP SINGLE CORONARY ARTERIAL GRAFT (N/A) BYPASS GRAFT ARTERY CORONARY ON-PUMP USING VENOUS GRAFT(S) AND ARTERIAL GRAFT(S); TWO VENOUS GRAFTS (N/A) ENDOSCOPIC HARVEST VEIN FOR CORONARY ARTERY BYPASS PROCEDURE (N/A) DATE OF SURGERY: 02/09/2018 POSTOP DAY #8 LOS: 10 INTERVAL EVENTS / PERTINENT ROS: Patient still intubated and sedated. PICC line ordered today. Need to remove cordis once PICC in place. Tolerating tube feeds. Still having episodes of A-fib despite diltiazem drip. Objective Admission Weight: 104.3 kg (229 lb 15 oz) BP 126/78 Pulse 81 Temp 37.5 ?C (99.5 ?F) Resp 15 Ht 180.3 cm (5' 10.98) Wt 110.4 kg (243 lb 6.2 oz) SpO2 94% BMI 33.96 kg/m2 Body surface area is 2.35 meters squared. Min/Max/Average Temperature AND Blood Pressure: Temp (24hrs), Av.2 ?C (98.9 ?F), Min:36.6 ?C (97.9 ?F), Max:37.7 ?C (99.9 ?F) No data recorded. No data recorded. Intake/Output Summary (Last 24 hours) at 02/17/18 1144 Last data filed at 02/17/18 1000 Gross per 24 hour Intake 1522.3 ml Output 2895 ml Net -1372.7 ml TELEMETRY: normal sinus rhythm PHYSICAL EXAM: General Appearance: sedated and intubated. Skin: No rash on chest, arms or legs. Warm, dry. Midsternal AND SVG incision dry AND intact, without redness, drainage or edema. Lungs: Slightly coarse to auscultation, thick sputum suctioned from tube per pr intern: regular rhythm, pacing wires present and episodic a- fib despite cardizem drip Abdomen: soft and bowel sounds present Extremities: edema: 1+ Lines, Drains, and Airways Line Peripheral 02/08/18 0100 Short Right Arm 20 Gauge 9 days Arterial Line 02/09/18 0830 Arterial Line Left Radial 8 days Central Line Double Lumen 02/09/18 0845 Non-tunneled Right Neck 8 days Peripheral 02/09/18 0820 Left Forearm 16 Gauge 8 days Drain GI Feed/Drain 02/09/18 0800 Oral Gastric Midline 8 days Indwelling Urinary Catheter 02/09/18 0838 Temperature Monitoring 16 Fr 8 days Airway Airway Endotracheal Tube 02/09/18 0800 8 days DATA: Recent Labs 02/17/18 1000 02/16/18 0600 02/15/18 0530 RBC 3.65* 3.41* 3.50* WBC 11.32* 10.92* 10.27* HB 11.7* 10.9* 11.3* HCT 35.0* 32.5* 33.2* PLT 221 201 179 NA 145 140 141 K 4.1 3.9 4.0 CHLOR 110* 112* 112* CO2 31 28 26 BUN 36* 32* 20* CREAT 0.88 0.84 0.83 GLUC 123* 110* 137* CA 8.1* 8.1* 8.2* MG 2.5 -- -- P 3.5 -- -- ANION 8 4* 7* Assessment/Plan Acute NSTEMI s/p CABG x 3 -POD#8 -increase ASA to 162, statin, BB -Post thorax vest -d/c cordis -PICC placed today -lovenox for dual anticoagulation. No plavix until PEG/Trach placement ?? Acute hypoxic AND hypercapneic respiratory failure 2/2 severe COPD and PNA -Vent management per pulmonary service Afib -continue Diltiazem, switch to PO ?? Klebsiella and E. coli HCAP -On ceftriaxone ?? Oral Thrush -c/w nystatin ?? Volume Overload -c/w lasix 40 PO BID ?? Constipation -c/w miralax and senokot-s -Resolved with mag citrate ? Nutrition -Tolerating TF today; minimal residuals ?? DVT ppx -Lovenox and SCDs ? Tests/Labs Ordered: 1. BMP 2. CBC SIGNATURE: Misti Stein PA-C PATIENT NAME: Jeffrey Cullen DATE: February 17, 2018 TIME: 11:44 AM PAGER/CONTACT #:[phone] ETX [phone] THERAPY NT Observed: 02/17/2018 Status: COMPLETED Source: [place] 11:43 AM [facility] OTHER [place] REPOSITORY HNO ID: [id number] Author: Yajaira (Otr/L) Kenrick Service: Occupational Therapy Author Type: Occupational Therapist Type: Therapy (PT/OT/Speech/Resp) Filed: 02/17/2018 11:44 AM Note Text: OCCUPATIONAL THERAPY MISSED VISIT SERVICE DATE: 02/17/2018 SERVICE TIME: 1142 to 1142 ROOM: [place] [id number] Attempted Evaluation. Patient not seen due to remains sedated, on Ventilator. Will discontinue OT order at this time. Please reorder as needed when medically stable and able to participate. SIGNATURE: HEATHER Driscoll/Fara PATIENT NAME: Jeffrey Chaudhari Indoe DATE: February 17, 2018 TIME: 11:43 AM PAGER/CONTACT #:[phone] PROGRESS Observed: 02/17/2018 Status: COMPLETED Source: [place] 11:41 AM [facility] REPOSITORY HNO ID: [id number] Author: Keon Chance Service: Pulmonary Disease Author Type: Physician Type: Progress Notes Filed: 02/17/2018 11:59 AM Note Text: CRITICAL CARE PROGRESS NOTE SERVICE DATE: February 17, 2018 SERVICE TIME: 11:45 AM Admission Date: 02/07/2018 AGE: [age] year old LOS: 10 days REASON FOR ICU ADMISSION: ACTIVE PROBLEM LIST Inguinal Hernia Without Mention of Obstruction Or Gangrene, Unilateral Or Unspecified, (Not Specified As Recurrent) Nstemi (Non-St Elevated Myocardial Infarction) ([facility]) Nsvt (Nonsustained Ventricular Tachycardia) ([facility]) Nicotine use disorder, F17.2 Subjective OVERNIGHT EVENTS: Patient is resting comfortably in bed while sedated and intubated/on the ventilator without any current distress. Objective VITAL SIGNS (last 24hrs min/max): Temp Av.4 ?C (99.3 ?F) Min: 36.5 ?C (97.7 ?F) Max: 37.8 ?C (100 ?F) Pulse Av.3 Min: 69 Max: 97 Cuff No Data Recorded Pain Score: 0/10 24 hour Intake AND Output: Intake/Output Summary (Last 24 hours) at 02/17/18 1145 Last data filed at 02/17/18 1000 Gross per 24 hour Intake 1522.3 ml Output 2895 ml Net -1372.7 ml PHYSICAL EXAM: RRR Few scattered crackles bilaterally without wheezing bilaterally anteriorly. Scattered bowel sounds (gradually increasing), soft, nontender, less distended than 02/14- exam (and about the same as my 02/16 exam). No pedal edema bilaterally. Poor turgor, but dry, intact skin. VENTILATOR INFORMATION: WEANING DATA: Settings: Invasive Ventilator Mode: Pressure Regulated Volume Control (02/17/18 0915) %FIO2: 40 Set Ventilator Respiratory Rate (BPM): 15 Tidal Volume Set (mL): 550 PEEP/CPAP (cm H2O): 5 Patient Data: Inspiratory:Expiratory Ratio: 1:3.4 Peak Inspiratory Pressure (cm H2O): 19 Plateau Pressure (cm H2O): 13 Weaning Data: Spontaneous Respiratory Rate (BPM): 30 INPATIENT MEDICATIONS: Current hospital medications: lidocaine 10 mg/mL (1 %) 10-20 mg injection (XYLOCAINE) 1- 2 mL INTRADERMAL ONCE 0.9% NaCl 10 mL 10 mL INTRAVENOUS q 12 H 0.9% NaCl 20 mL 20 mL INTRAVENOUS PRN lidocaine 10 mg/mL (1 %) 10-20 mg injection (XYLOCAINE) 1- 2 mL INTRADERMAL ONCE 0.9% NaCl 10 mL 10 mL INTRAVENOUS q 12 H 0.9% NaCl 20 mL 20 mL INTRAVENOUS PRN metoprolol tartrate (short acting) (LOPRESSOR) tab(s) 75 mg 75 mg ORAL q 8 H enoxaparin 105 mg injection (LOVENOX) 1 mg/kg/dose SUBCUTANEOUS q 12 HR fentaNYL iv infusion 20 mcg/mL in NaCl 0.9% 100 mL 25 mcg/hr INTRAVENOUS CONTINUOUS dilTIAZem 100 mg in D5W 100 mL ADD-Boyden (CARDIZEM) 5-15 mg/hr INTRAVENOUS CONTINUOUS nystatin 5 mL oral liquid (MYCOSTATIN) 5 mL ORAL QID metoclopramide HCl 10 mg injection (REGLAN) 10 mg INTRAVENOUS q 6 H LORazepam 2 mg injection (ATIVAN) 2 mg INTRAVENOUS q 4 H PRN dextrose 40 % 15 g 15 g ORAL PRN glucagon 1 mg injection (GLUCAGEN) 1 mg INTRAMUSCULAR PRN dextrose 50% in water 25 mL syringe 12.5 g INTRAVENOUS PRN insulin regular human injection (short acting) (NovoLIN R,HumuLIN R) SUBCUTANEOUS q 6 H bisacodyl 10 mg suppository (DULCOLAX) 10 mg RECTAL DAILY PRN polyethylene glycol 3350 17 g packet (MIRALAX, GLYCOLAX) 17 g ORAL DAILY senna-docusate 8.6-50 mg 1 tablet (SENNA-S) 1 tablet ORAL BID pill splitter (patient-specific) 1 Each Miscell. (Med.Supl.;Non- Drugs) PRN Chlorhexidine Gluconate 0.12 % 15 mL (PERIDEX) 15 mL ORAL q 12 H budesonide 0.5 mg/2 mL 1 mg (PULMICORT) 1 mg INHALATION BID acetaminophen 650 mg tab(s) (TYLENOL) 650 mg ORAL q 6 H PRN aspirin 81 mg chewable tab(s) 81 mg ORAL DAILY dextrose 50% in water 25 mL syringe 12.5 g INTRAVENOUS PRN potassium chloride iv piggyback 20 mEq in sterile water 100 mL 20 mEq INTRAVENOUS PRN magnesium sulfate in water 2 g in sterile water 50 ml 2 g INTRAVENOUS PRN(NO DISPENSE) albuterol 2.5 mg /3 mL (0.083 %) 2.5 mg (PROVENTIL) 2.5 mg INHALATION q 2 H PRN calcium chloride 1 g in D5W 100 mL 1 g INTRAVENOUS PRN(NO DISPENSE) oxyCODONE-acetaminophen 5-325 mg 1-2 tablet (PERCOCET) 1-2 tablet ORAL q 4 H PRN morphine 2-4 mg injection 2-4 mg INTRAVENOUS q 1 H PRN pantoprazole 40 mg injection (PROTONIX) 40 mg INTRAVENOUS DAILY (6 AM) ondansetron (PF) 4 mg injection (ZOFRAN) 4 mg INTRAVENOUS q 6 H PRN propofol infusion (DIPRIVAN) 5-50 mcg/kg/min INTRAVENOUS CONTINUOUS ipratropium-albuterol 3 mL nebulizer solution (DUONEB) 3 mL INHALATION q 4 H atorvastatin 40 mg tab(s) (LIPITOR) 40 mg ORAL AT BEDTIME 0.9% NaCl 3-5 mL 3-5 mL INTRAVENOUS q 12 H DATA: BLOOD GAS: Recent Labs 02/13/181944 RESPHCO3 25.1 PH 7.310* PCO2 51.4* M2VATGYO 94.0* CBC: Recent Labs 02/17/18 1000 02/16/18 0600 02/15/18 0530 02/13/18 0450 02/12/18 0501 02/11/18 0420 02/10/18 1455 WBC 11.32* 10.92* 10.27* 7.83 11.10* 15.13* 14.16* HB 11.7* 10.9* 11.3* 10.0* 10.2* 10.9* 10.1* HCT 35.0* 32.5* 33.2* 30.3* 30.5* 33.3* 31.0* PLT 221 201 179 105* 96* 105* 107* MCV 95.9* 95.3 94.9 98.1* 96.5* 98.8* 99.7* COAG: No results for input(s): APTT, INR in the last 168 hours. BMP: Recent Labs 02/17/18 1000 02/16/18 0600 02/15/18 0530 02/14/18 0503 02/13/18 1945 02/13/18 0450 02/12/18 0501 02/11/18 0420 GLUC 123* 110* 137* 143* 113* 107* 109* 104* NA 145 140 141 140 140 140 141 142 K 4.1 3.9 4.0 4.7 3.5 3.7 3.9 4.3 CHLOR 110* 112* 112* 109* 110* 110* 113* 112* CO2 31 28 26 23 25 23 25 25 ANION 8 4* 7* 13 9 11 7* 9 BUN 36* 32* 20* 19* 20* 21* 29* 25* CREAT 0.88 0.84 0.83 0.78 0.93 0.86 1.19* 1.34* CHEM: Recent Labs 02/17/18 1000 02/16/18 0600 02/15/18 0530 02/14/18 0503 02/13/18 1945 02/13/18 0450 02/12/18 0501 02/11/18 0420 02/10/18 1455 CA 8.1* 8.1* 8.2* 8.2* 8.0* 8.0* 8.2* 8.3* 8.1* MG 2.5 -- -- -- 2.2 -- -- 2.6 2.5 ICAL -- -- -- -- -- -- -- -- 4.73 HEPATIC: No results for input(s): ALKPHOS, ALT, AST, TBILI, LIPASE in the last 168 hours. URINALYSIS: Recent Labs 02/13/181944 PH 7.310* Assessment/Plan ASSESSMENT: ACTIVE PROBLEM LIST Inguinal Hernia Without Mention of Obstruction Or Gangrene, Unilateral Or Unspecified, (Not Specified As Recurrent) Nstemi (Non-St Elevated Myocardial Infarction) ([facility]) Nsvt (Nonsustained Ventricular Tachycardia) ([facility]) Nicotine use disorder, F17.2 S/P CABG, POD # 8 Acute exacerbation of COPD secondary to HCAP Acute hypoxic respiratory failure PLAN: Continue full ventilator support. Attempting to wean though his respiratory rate on the ventilator is 28-30 times/minute at times. He lasted less than an hour on CPAP/PS two consecutive days due to worsening tachypnea, dyspnea, and paradoxical respiratory motion, but he is back on CPPA/PS again this morning. Patient will need to undergo tracheostomy and PEG tube placement if he is not extubated by Tuesday (. Continue bronchodilators. Finish antibiotic course. Patient has no need for steroids at this time as the patient has no active bronchospasm currently. Will avoid steroids as much as possible given his post-operative state. Has remained hemodynamically stable off pressors. Continue chest tube management as per Cardiovascular/Thoracic Surgery. Finally tolerating tube feeds at goal rate. Continue Reglan 10 mg IV every 6 hours. Continue supportive care. This patient has a high probability of sudden, clinically significant deterioration, which requires the highest level of physician preparedness to intervene urgently. I managed/supervised life or organ supporting interventions that required frequent physician assessment. I devoted my full attention to the direct care of this patient for the amount of time indicated below. Time I spent with family or surrogate(s) is included only if the patient was incapable of providing the necessary information or participating in medical decision making. Time devoted to teaching and to any procedures I billed separately is not included. PROGNOSIS: Fair Code status: Full Code. Discussed with Registered Nurse, PharmD, and Yg Owen (Cardiovascular/Thoracic Surgery PUBLIC ADDRESS SERVICER). Critical Care Documentation: The patient has the following organ/system impairment(s): Respiratory failure (Acute, with Hypoxemia) and coronary artery disease Time spent providing critical care services: 35 minutes. SIGNATURE: Keon Chance MD [facility] PAGER:[phone] DATE of SERVICE: February 17, 2018 TIME of SERVICE: 11:45 AM CASE MANAGEM Observed: 02/17/2018 Status: COMPLETED Source: [place] 11:11 AM [facility] OTHER [place] REPOSITORY HNO ID: [id number] Author: Indu MoodyRn) RAINA Frederick Service: Care Management Author Type: Registered Nurse Type: Care Mgt Progress Note Filed: 02/17/2018 11:16 AM Note Text: CARE MANAGEMENT PROGRESS NOTE SERVICE DATE: 02/17/2018 SERVICE TIME: 11:11 AM LOS: 10 days Needs Prior to Discharge: To Be Determined;OT/PT Evaluation;Accepting Facility;Discharge Transportation Chart reviewed. Remains in [facility] intubated, sedated on vent. Continues IV Cardizem. [facility] following for possible placement when medically stable. Will continue to follow clinical course for further DC planning. SIGNATURE: Indu Frederick RN PATIENT NAME: Jeffrey Cullen DATE: February 17, 2018 TIME: 11:11 AM PAGER/CONTACT #: [phone] HEMOGRAM/DIFF Collected: 02/17/2018 Status: F Source: [facility] 10:00 AM HEALTH SYSTEM REPOSITORY TYPE CODE TESTS RESULT OUT OF REFERENCE UNITS RANGE LAB WBC(LOINC) 4.23-9.07 thou/cmm WBC High 11.32 LAB RBC(LOINC) 4.63-6.08 mil/cmm Low RBC 3.65 LAB HGB(LOINC) 13.7-17.5 g/dL Low Hgb 11.7 LAB HCT(LOINC) 40.1-51.0 % Low Hct 35.0 LAB MCV(LOINC) 83.2-95.6 fl MCV High 95.9 LAB MCH(LOINC) 25.7-32.2 pg MCH 32.1 LAB MCHC(LOINC 32.3-36.5 % ) MCHC 33.4 LAB RDW(LOINC) 11.6-14.4 % RDW 13.2 LAB RDWSD(LOIN 36.1-45.8 fl C) RDW SD High 47.3 LAB PLT(LOINC) 141-365 thou/cmm Platelet 221 LAB MPV(LOINC) 8.7-12.0 fl MPV 9.7 LAB NRBCR(LOIN 0.0-0.2 % C) Nucleated RBC % 0.2 LAB NRBCA(LOIN 0.00-0.01 thou/cmm C) High Nucleated RBC 0.02 Absolute LAB SEG(LOINC) % Seg Neutrophil 62.0 LAB IGRE(LOINC % ) Immature Grans 3.20 LAB LYMPH(LOIN % C) Lymphocyte 23.3 LAB MNO(LOINC) % Monocyte 8.3 LAB EOSIN(LOIN % C) Eosinophil 2.8 LAB BASO(LOINC % ) Basophil 0.4 LAB SEGN(LOINC 1.78-5.38 thou/cmm ) Abs. High Neut 7.02 LAB IGAB(LOINC 0.00-0.05 thou/cmm ) Abs High Immature Grans 0.36 LAB LYMN(LOINC 0.84-2.85 thou/cmm ) Abs. Lymph 2.64 LAB MONON(LOIN 0.30-0.82 thou/cmm C) Abs. High Slope 0.94 LAB EOSN(LOINC 0.04-0.54 thou/cmm ) Abs. Eosin 0.32 LAB BASON(LOIN 0.01-0.08 thou/cmm C) Abs. Baso 0.05 Result Comment: Smear scanned; tech agrees with automated differential Performed By: #### [id number] #### [place] [address] BASIC PANEL Collected: 02/17/2018 Status: F Source: [facility] 10:00 AM HEALTH SYSTEM REPOSITORY TYPE CODE TESTS RESULT OUT OF REFERENCE UNITS RANGE LAB NA(LOINC) 136-145 mEq/L Sodium Blood 145 LAB K(LOINC) 3.5-5.1 mEq/L Potassium Blood 4.1 LAB CL(LOINC) 98-107 mEq/L Chloride High Blood 110 LAB CO2(LOINC) 21-32 mEq/L CO2 Blood 31 LAB GLU(LOINC) 70-99 mg/dL Glucose High Blood 123 LAB BUN(LOINC) 7-18 mg/dL BUN High Blood 36 LAB CREA(LOINC 0.67-1.17 mg/dL ) Creatinine Blood 0.88 LAB CA(LOINC) 8.5-10.1 mg/dL Low Calcium Blood 8.1 LAB ANGAP(LOIN 8-16 C) Anion Gap 8 Performed By: #### P8 #### [place] [address] MAGNESIUM BLOOD Collected: 02/17/2018 Status: F Source: [facility] 10:00 HEALTH SYSTEM REPOSITORY TYPE CODE TESTS RESULT OUT OF REFERENCE UNITS RANGE LAB MAG(LOINC) 1.6-2.6 mg/dL Magnesium Blood 2.5 Performed By: #### MAG #### [place] [address] PHOSPHORUS BLOOD Collected: 02/17/2018 Status: F Source: [facility] 10:00 HEALTH SYSTEM REPOSITORY TYPE CODE TESTS RESULT OUT OF REFERENCE UNITS RANGE LAB PHOS(LOINC 2.5-4.9 mg/dL ) Phosphorus Blood 3.5 Performed By: #### PHOS #### [place] [address] MDRD GFR Collected: 02/17/2018 Status: F Source: [facility] 10:00 HEALTH SYSTEM REPOSITORY TYPE CODE TESTS RESULT OUT OF RANGE REFERENCE UNITS LAB GFRFN(LOINC >60mL/min/1.73m ) 2 eGFR >60 Result Comment: If the patient is , multiply the result by 1.210. Performed By: #### GFR #### [place] [address] GLUCOSE METER Collected: 02/17/2018 Status: F Source: [facility] 5:54 AM HEALTH SYSTEM REPOSITORY TYPE CODE TESTS RESULT OUT OF REFERENCE UNITS RANGE LAB GLUBL(LOINC 70-99 mg/dL ) High Glucose Meter 110 Result Comment: RN NOTIFIED Performed By: #### GLMET #### [facility] [address] [place] [address] GLUCOSE METER Collected: 02/16/2018 Status: F Source: [facility] 11:57 PM HEALTH SYSTEM REPOSITORY TYPE CODE TESTS RESULT OUT OF REFERENCE UNITS RANGE LAB GLUBL(LOINC 70-99 mg/dL ) High Glucose Meter 104 Result Comment: RN NOTIFIED Performed By: #### GLMET #### [facility] [address] [place] [address] GLUCOSE METER Collected: 02/16/2018 Status: F Source: [facility] 6:16 PM HEALTH SYSTEM REPOSITORY TYPE CODE TESTS RESULT OUT OF REFERENCE UNITS RANGE LAB GLUBL(LOINC 70-99 mg/dL ) High Glucose Meter 100 Result Comment: RN NOTIFIED Performed By: #### GLMET #### [facility] [address] [place] [address] CASE MANAGEM Observed: 02/16/2018 Status: COMPLETED Source: [place] 2:35 PM CLINIC OTHER CAMPUS REPOSITORY HNO ID: [id number] Author: Angelica Johnson) RANIA Malcolm Service: Care Management Author Type: Registered Nurse Type: Care Mgt Progress Note Filed: 02/16/2018 2:38 PM Note Text: Pt remains intubated, hoping to go to [facility] at nm. GLUCOSE METER Collected: 02/16/2018 Status: F Source: [facility] 12:04 PM HEALTH SYSTEM REPOSITORY TYPE CODE TESTS RESULT OUT OF REFERENCE UNITS RANGE LAB GLUBL(LOINC 70-99 mg/dL ) Glucose Meter 96 Result Comment: RN NOTIFIED Performed By: #### GLMET #### [place] [address] PROGRESS Observed: 02/16/2018 Status: COMPLETED Source: [place] 11:21 AM CLINIC OTHER CAMPUS REPOSITORY HNO ID: [id number] Author: Beata Marin Service: Cardiovascular Surgery Author Type: Physician Type: Progress Notes Filed: 02/16/2018 6:47 PM Note Text: CARDIOTHORACIC SURGERY POSTOP PROGRESS NOTE SERVICE DATE: 02/16/2018 SERVICE TIME: 11:21 AM Subjective S/P SURGERY: Procedure(s) (LRB): BYPASS GRAFT ARTERY CORONARY ON-PUMP SINGLE CORONARY ARTERIAL GRAFT (N/A) BYPASS GRAFT ARTERY CORONARY ON-PUMP USING VENOUS GRAFT(S) AND ARTERIAL GRAFT(S); TWO VENOUS GRAFTS (N/A) ENDOSCOPIC HARVEST VEIN FOR CORONARY ARTERY BYPASS PROCEDURE (N/A) DATE OF SURGERY: 02/09/2018 POSTOP DAY #6 LOS: 9 INTERVAL EVENTS / PERTINENT ROS: Still on vent. Did not tolerate CPAP trial; agitated and tachypneic. Objective Admission Weight: 104.3 kg (229 lb 15 oz) BP 126/78 Pulse 78 Temp 37 ?C (98.6 ?F) (High Thermistor) Resp 12 Ht 180.3 cm (5' 10.98) Wt 110.2 kg (242 lb 15.2 oz) SpO2 93% BMI 33.9 kg/m2 Body surface area is 2.35 meters squared. Min/Max/Average Temperature AND Blood Pressure: Temp (24hrs), Av.1 ?C (98.8 ?F), Min:36.9 ?C (98.4 ?F), Max:37.4 ?C (99.3 ?F) Systolic (24hrs), Av , Min:126 , Max:126 Diastolic (24hrs), Av, Min:78, Max:78 Intake/Output Summary (Last 24 hours) at 02/16/18 1121 Last data filed at 02/16/18 0900 Gross per 24 hour Intake 1537.7 ml Output 1487 ml Net 50.7 ml TELEMETRY: normal sinus rhythm PHYSICAL EXAM: General Appearance: well developed and sedated on vent Skin: Midsternal incision dry AND intact. and SVG incisions dry AND intact. Lungs: clear and respiratory effort: normal; large amt thick sputum suctioned by pr intern: regular rhythm, S1, S2 normal and pacing wires present Abdomen: soft and bowel sounds present Genitourinary: High intact, urine color is clear yellow. Extremities: edema: 1+, bilateral LE Lines, Drains, and Airways Line Peripheral 02/08/18 0100 Short Right Arm 20 Gauge 8 days Arterial Line 02/09/18 0830 Arterial Line Left Radial 7 days Central Line Double Lumen 02/09/18 0845 Non-tunneled Right Neck 7 days Peripheral 02/09/18 0820 Left Forearm 16 Gauge 7 days Drain GI Feed/Drain 02/09/18 0800 Oral Gastric Midline 7 days Indwelling Urinary Catheter 02/09/18 0838 Temperature Monitoring 16 Fr 7 days Airway Airway Endotracheal Tube 02/09/18 0800 7 days DATA: Diagnostic tests reviewed for today's visit: Recent Labs 02/16/18 0600 02/15/18 0530 02/14/18 0503 02/13/181944 RBC 3.41* 3.50* -- -- WBC 10.92* 10.27* -- -- HB 10.9* 11.3* -- -- HCT 32.5* 33.2* -- -- PLT 201 179 -- -- NA 140 141 140 140 K 3.9 4.0 4.7 3.5 CHLOR 112* 112* 109* 110* CO2 28 26 23 25 BUN 32* 20* 19* 20* CREAT 0.84 0.83 0.78 0.93 GLUC 110* 137* 143* 113* CA 8.1* 8.2* 8.2* 8.0* MG -- -- -- 2.2 ANION 4* 7* 13 9 Recent Labs 02/13/181944 PH 7.310* PCO2 51.4* PO2 79.6* BE -1.3 Assessment/Plan Acute NSTEMI s/p CABG x 3 -POD#6 -c/w ASA, statin, BB -Post thorax vest ?? Acute hypoxic AND hypercapneic respiratory failure 2/2 severe COPD and PNA -Vent management per pulmonary service ?? Klebsiella and E. coli HCAP -On ceftriaxone ? Oral Thrush -c/w nystatin ?? Volume Overload -c/w Lasix IV 20mg daily ? Constipation -c/w miralax and senokot-s -Resolved with mag citrate ? Nutrition -Tolerating TF today; minimal residuals ? DVT ppx -Lovenox and SCDs Tests/Labs Ordered: 1. BMP 2. CBC SIGNATURE: Clementine Owen APRN.CNP PATIENT NAME: Jeffrey Cullen DATE: February 16, 2018 TIME: 11:21 AM PAGER/CONTACT #: [phone] [phone] Patient seen w PA earlier today. afib recurring. Labs, data, and careplan reviewed. P-as ordered. PROGRESS Observed: 02/16/2018 Status: COMPLETED Source: [place] 11:13 AM [facility] OTHER CAMPUS REPOSITORY O ID: [id number] Author: Keon Matthewsmegan Service: Pulmonary Disease Author Type: Physician Type: Progress Notes Filed: 02/16/2018 11:19 AM Note Text: CRITICAL CARE PROGRESS NOTE SERVICE DATE: February 16, 2018 SERVICE TIME: 11:13 AM Admission Date: 02/07/2018 AGE: [age] year old LOS: 9 days REASON FOR ICU ADMISSION: ACTIVE PROBLEM LIST Inguinal Hernia Without Mention of Obstruction Or Gangrene, Unilateral Or Unspecified, (Not Specified As Recurrent) Nstemi (Non-St Elevated Myocardial Infarction) ([facility]) Nsvt (Nonsustained Ventricular Tachycardia) ([facility]) Nicotine use disorder, F17.2 Subjective OVERNIGHT EVENTS: Patient is resting comfortably in bed while sedated and intubated/on the ventilator without any current distress. Objective VITAL SIGNS (last 24hrs min/max): Temp Av.4 ?C (99.3 ?F) Min: 36.5 ?C (97.7 ?F) Max: 37.8 ?C (100 ?F) Pulse Av.3 Min: 69 Max: 97 Cuff No Data Recorded Pain Score: 0/10 24 hour Intake AND Output: Intake/Output Summary (Last 24 hours) at 02/16/18 1113 Last data filed at 02/16/18 0900 Gross per 24 hour Intake 1537.7 ml Output 1487 ml Net 50.7 ml PHYSICAL EXAM: RRR Minimal scattered crackles bilaterally without wheezing bilaterally anteriorly. Few scattered bowel sounds, soft, nontender, less distended than 02/14- exam. No pedal edema bilaterally. Poor turgor, but dry, intact skin. VENTILATOR INFORMATION: WEANING DATA: Settings: Invasive Ventilator Mode: Pressure Regulated Volume Control (02/16/18 0951) %FIO2: 40 Set Ventilator Respiratory Rate (BPM): 15 Tidal Volume Set (mL): 550 PEEP/CPAP (cm H2O): 5 Patient Data: Inspiratory:Expiratory Ratio: 1:3.4 Peak Inspiratory Pressure (cm H2O): 14 Plateau Pressure (cm H2O): 19 Weaning Data: Spontaneous Respiratory Rate (BPM): 30 INPATIENT MEDICATIONS: Current hospital medications: metoprolol tartrate (short acting) 50 mg tab(s) (LOPRESSOR) 50 mg ORAL q 8 H dilTIAZem 100 mg in D5W 100 mL ADD-Boyden (CARDIZEM) 5-15 mg/hr INTRAVENOUS CONTINUOUS nystatin 5 mL oral liquid (MYCOSTATIN) 5 mL ORAL QID metoclopramide HCl 10 mg injection (REGLAN) 10 mg INTRAVENOUS q 6 H LORazepam 2 mg injection (ATIVAN) 2 mg INTRAVENOUS q 4 H PRN cefTRIAXone iv piggyback 1 g in dextrose (iso-osmotic) 50 mL (ROCEPHIN) 1 g INTRAVENOUS q 24 H dextrose 40 % 15 g 15 g ORAL PRN glucagon 1 mg injection (GLUCAGEN) 1 mg INTRAMUSCULAR PRN dextrose 50% in water 25 mL syringe 12.5 g INTRAVENOUS PRN insulin regular human injection (short acting) (NovoLIN R,HumuLIN R) SUBCUTANEOUS q 6 H bisacodyl 10 mg suppository (DULCOLAX) 10 mg RECTAL DAILY PRN polyethylene glycol 3350 17 g packet (MIRALAX, GLYCOLAX) 17 g ORAL DAILY senna-docusate 8.6-50 mg 1 tablet (SENNA-S) 1 tablet ORAL BID pill splitter (patient-specific) 1 Each Miscell. (Med.Supl.;Non- Drugs) PRN enoxaparin 40 mg injection (LOVENOX) 40 mg SUBCUTANEOUS q 24 HR Chlorhexidine Gluconate 0.12 % 15 mL (PERIDEX) 15 mL ORAL q 12 H budesonide 0.5 mg/2 mL 1 mg (PULMICORT) 1 mg INHALATION BID acetaminophen 650 mg tab(s) (TYLENOL) 650 mg ORAL q 6 H PRN aspirin 81 mg chewable tab(s) 81 mg ORAL DAILY dextrose 50% in water 25 mL syringe 12.5 g INTRAVENOUS PRN potassium chloride iv piggyback 20 mEq in sterile water 100 mL 20 mEq INTRAVENOUS PRN magnesium sulfate in water 2 g in sterile water 50 ml 2 g INTRAVENOUS PRN(NO DISPENSE) albuterol 2.5 mg /3 mL (0.083 %) 2.5 mg (PROVENTIL) 2.5 mg INHALATION q 2 H PRN calcium chloride 1 g in D5W 100 mL 1 g INTRAVENOUS PRN(NO DISPENSE) oxyCODONE-acetaminophen 5-325 mg 1-2 tablet (PERCOCET) 1-2 tablet ORAL q 4 H PRN morphine 2-4 mg injection 2-4 mg INTRAVENOUS q 1 H PRN pantoprazole 40 mg injection (PROTONIX) 40 mg INTRAVENOUS DAILY (6 AM) ondansetron (PF) 4 mg injection (ZOFRAN) 4 mg INTRAVENOUS q 6 H PRN propofol infusion (DIPRIVAN) 5-50 mcg/kg/min INTRAVENOUS CONTINUOUS ipratropium-albuterol 3 mL nebulizer solution (DUONEB) 3 mL INHALATION q 4 H atorvastatin 40 mg tab(s) (LIPITOR) 40 mg ORAL AT BEDTIME 0.9% NaCl 3-5 mL 3-5 mL INTRAVENOUS q 12 H DATA: BLOOD GAS: Recent Labs 02/13/18 1945 02/10/18 0819 02/10/18 0547 02/09/18 2015 02/09/18 1738 02/09/18 1400 02/09/18 1252 02/09/18 1217 RESPHCO3 25.1 23.3 23.0 21.3* 20.8* 23.6 -- -- PH 7.310* 7.392 7.385 7.267* 7.261* 7.193* 7.236* 7.372 PCO2 51.4* 39.3 39.4 48.2* 47.4* 62.0* -- -- X9CYHZXI 94.0* 96.1 93.6* 95.2 97.6 96.2 -- -- CBC: Recent Labs 02/16/18 0600 02/15/18 0530 02/13/18 0450 02/12/18 0501 02/11/18 0420 02/10/18 1455 02/10/18 0545 02/09/18 1405 WBC 10.92* 10.27* 7.83 11.10* 15.13* 14.16* 14.31* 22.43* HB 10.9* 11.3* 10.0* 10.2* 10.9* 10.1* 10.9* 13.1* HCT 32.5* 33.2* 30.3* 30.5* 33.3* 31.0* 32.6* 38.7* PLT 201 179 105* 96* 105* 107* 112* 157 MCV 95.3 94.9 98.1* 96.5* 98.8* 99.7* 96.4* 97.7* COAG: Recent Labs 02/10/18 0545 02/09/18 1405 APTT -- 23.0 INR 1.23 1.24 BMP: Recent Labs 02/16/18 0600 02/15/18 0530 02/14/18 0503 02/13/18 19402/13/18 0450 02/12/18 0501 02/11/18 0420 02/10/18 1455 GLUC 110* 137* 143* 113* 107* 109* 104* 97 NA 140 141 140 140 140 141 142 143 K 3.9 4.0 4.7 3.5 3.7 3.9 4.3 4.0 CHLOR 112* 112* 109* 110* 110* 113* 112* 113* CO2 28 26 23 25 23 25 25 26 ANION 4* 7* 13 9 11 7* 9 8 BUN 32* 20* 19* 20* 21* 29* 25* 17 CREAT 0.84 0.83 0.78 0.93 0.86 1.19* 1.34* 1.01 CHEM: Recent Labs 02/16/18 0600 02/15/18 0530 02/14/18 0503 02/13/18 19402/13/18 0450 02/12/18 0501 02/11/18 0420 02/10/18 1455 02/10/18 0545 02/09/18201402/09/18 1405 ALB -- -- -- -- -- -- -- -- -- -- 2.5* TPROT -- -- -- -- -- -- -- -- -- -- 5.2* CA 8.1* 8.2* 8.2* 8.0* 8.0* 8.2* 8.3* 8.1* 7.7* 7.8* 7.9* MG -- -- -- 2.2 -- -- 2.6 2.5 2.3 1.9 1.8 ICAL -- -- -- -- -- -- -- 4.73 -- 4.64 -- HEPATIC: Recent Labs 02/09/18 1405 ALKPHOS 64 ALT 30 AST 88* TBILI 0.6 URINALYSIS: Recent Labs 02/13/18 1945 02/10/18 0819 02/10/18 0547 02/09/18201402/09/18 1738 02/09/18 1400 02/09/18 1252 02/09/18 1217 PH 7.310* 7.392 7.385 7.267* 7.261* 7.193* 7.236* 7.372 Assessment/Plan ASSESSMENT: ACTIVE PROBLEM LIST Inguinal Hernia Without Mention of Obstruction Or Gangrene, Unilateral Or Unspecified, (Not Specified As Recurrent) Nstemi (Non-St Elevated Myocardial Infarction) ([facility]) Nsvt (Nonsustained Ventricular Tachycardia) ([facility]) Nicotine use disorder, F17.2 S/P CABG, POD #7 Acute exacerbation of COPD secondary to HCAP Acute hypoxic respiratory failure PLAN: Continue full ventilator support. Attempting to wean though his respiratory rate on the ventilator is 28-30 times/minute at times. He lasted less than an hour on CPAP/PS two consecutive days due to worsening tachypnea, dyspnea, and paradoxical respiratory motion. Patient will need to undergo tracheostomy and PEG tube placement if he is not extubated by Tuesday. Continue bronchodilators. Finish antibiotic course. Patient has no need for steroids at this time as the patient has no active bronchospasm currently. Will avoid steroids as much as possible given his post-operative state. Hemodynamically stable off pressors. Continue chest tube management as per Cardiovascular/Thoracic Surgery. Finally tolerating low rate tube feeds therefore will increase to goal rate slowly as tolerated. Continue Reglan 10 mg IV every 6 hours. Continue supportive care. This patient has a high probability of sudden, clinically significant deterioration, which requires the highest level of physician preparedness to intervene urgently. I managed/supervised life or organ supporting interventions that required frequent physician assessment. I devoted my full attention to the direct care of this patient for the amount of time indicated below. Time I spent with family or surrogate(s) is included only if the patient was incapable of providing the necessary information or participating in medical decision making. Time devoted to teaching and to any procedures I billed separately is not included. PROGNOSIS: Fair Code status: Full Code. Discussed with Registered Nurse, ORAL AND MAXILLOFACIAL SURGEON, PharmD, and Yg Owen (Cardiovascular/Thoracic Surgery PUBLIC ADDRESS SERVICER). Critical Care Documentation: The patient has the following organ/system impairment(s): Respiratory failure (Acute, with Hypoxemia) and coronary artery disease Time spent providing critical care services: 35 minutes. SIGNATURE: Keon Chance MD [facility] PAGER:[phone] DATE of SERVICE: February 16, 2018 TIME of SERVICE: 11:13 AM NUTRITION Observed: 02/16/2018 Status: COMPLETED Source: [place] 10:25 AM CLINIC OTHER CAMPUS REPOSITORY HNO ID: [id number] Author: Sandra Alvarado) TREASURE Almaguer Service: Nutrition Therapy Author Type: Registered Dietitian Type: Nutrition Filed: 02/16/2018 3:00 PM Note Text: NUTRITION THERAPY PROGRESS NOTE SERVICE DATE: 02/16/2018 SERVICE TIME: 2:00pm RECOMMENDED DIAGNOSIS: NO MALNUTRITION IDENTIFIED per Registered Dietitian on 02/11/18 NUTRITION CARE PLAN Problem, Etiology and Signs/Symptoms: Suboptimal oral intake related to respiratory status as evidenced by NPO and vent support Intervention: Impact Peptide at goal rate 47 ml/hr to provide 1128 ml product - 1692 kcal, 106 gm protein, 868.6 ml free water Flush with 30 ml 6 times per day (Flush goal 165 ml 6 times per day) Propofol at 19.8 ml/hr providing 522 kcals. Collaborated with KEON CHANCE MD and orders written. Coordination of Care: MD, pharmacy, [place] LINE ATTENDANT, and nursing Monitor and Evaluation: Goal: Meet >75% of estimated needs Monitor fluid/electrolyte balance Monitor labs, I/Os, vital signs, weight Monitor tolerance to tube feeding Discharge Nutrition Recommendations: To be determined ---- Reason for Visit: Follow up of tube feed Per HPI: 67 year old male patient with no known PMH other than long history of smoking ( 2packs a day for more than 30 years) Earlier 02/07/18?he was sitting and suddenly started having substernal chest pain, pain is intermittent with no radiation, he felt nauseas but no vomiting and no diaphoresis.This pain kept coming so he went to the ER. Underwent LHC on 02/08/18 showed need for CABG, underwent CABG on 02/09/18. Chest tubed pulled 02/11. Remains on vent support. Noted residuals and tube feeding held at present. Started on Reglan daily from PRN. Interval History: Patient remains intubated this AM. No significant residuals noted greater than 100 cc. Toleration of tube feeding improving. Present Diet Order: Continuous Tube Feeding Impact peptide 1.5 at 20ml/hr providing 720 ml/kcals/24hr ; 23 grams of prot ; 185 ml free water. Nutritional Intake: 0-25% estimated energy needs over the past 9 day(s) indicated by prolonged po status and intolerance of tube feed. Admission Weight: 104.3 kg (229 lb 15 oz) Current Weight: 110.2 kg (242 lb 15.2 oz) Body mass index is 33.9 kg/(m2). class 1 obesity Weight has increased by 5.9 kg indicating a % weight change of 5.4% over 9 days. Last 12 Encounter Wt Readings: Date: Wt: 02/16/2018 110.2 kg (242 lb 15.2 oz) 02/15/2018 111.7 kg (245 lb 11.8 oz) 02/14/2018 111.2 kg (245 lb 11.8 oz) 02/13/2018 112.6 kg (247 lb 11.5 oz) 02/12/2018 112.0 kg (247 lb) 02/11/2018 110.1 kg (242 lb 11.6 oz) 02/10/2018 108.3 kg (238 lb 12.1 oz) 02/09/2018 105.7 kg (233 lb 0.4 oz) 02/08/2018 104.3 kg (229 lb 15 oz) 02/07/2018 110.2 kg (242 lb 15.2 oz) Question accuracy 02/07/2018 104.3 kg (230 lb) Stated wt 12/04/2007 100.2 kg (221 lb) ALLERGIES No Known Allergies Current Facility-Administered Medications: metoprolol tartrate (short acting) 50 mg tab(s) (LOPRESSOR) 50 mg ORAL q 8 H dilTIAZem 100 mg in D5W 100 mL ADD-Boyden (CARDIZEM) 5-15 mg/hr INTRAVENOUS CONTINUOUS nystatin 5 mL oral liquid (MYCOSTATIN) 5 mL ORAL QID metoclopramide HCl 10 mg injection (REGLAN) 10 mg INTRAVENOUS q 6 H LORazepam 2 mg injection (ATIVAN) 2 mg INTRAVENOUS q 4 H PRN cefTRIAXone iv piggyback 1 g in dextrose (iso-osmotic) 50 mL (ROCEPHIN) 1 g INTRAVENOUS q 24 H dextrose 40 % 15 g 15 g ORAL PRN Or glucagon 1 mg injection (GLUCAGEN) 1 mg INTRAMUSCULAR PRN Or dextrose 50% in water 25 mL syringe 12.5 g INTRAVENOUS PRN insulin regular human injection (short acting) (NovoLIN R,HumuLIN R) SUBCUTANEOUS q 6 H bisacodyl 10 mg suppository (DULCOLAX) 10 mg RECTAL DAILY PRN polyethylene glycol 3350 17 g packet (MIRALAX, GLYCOLAX) 17 g ORAL DAILY senna-docusate 8.6-50 mg 1 tablet (SENNA-S) 1 tablet ORAL BID pill splitter (patient-specific) 1 Each Miscell. (Med.Supl.;Non- Drugs) PRN enoxaparin 40 mg injection (LOVENOX) 40 mg SUBCUTANEOUS q 24 HR Chlorhexidine Gluconate 0.12 % 15 mL (PERIDEX) 15 mL ORAL q 12 H budesonide 0.5 mg/2 mL 1 mg (PULMICORT) 1 mg INHALATION BID acetaminophen 650 mg tab(s) (TYLENOL) 650 mg ORAL q 6 H PRN aspirin 81 mg chewable tab(s) 81 mg ORAL DAILY dextrose 50% in water 25 mL syringe 12.5 g INTRAVENOUS PRN potassium chloride iv piggyback 20 mEq in sterile water 100 mL 20 mEq INTRAVENOUS PRN magnesium sulfate in water 2 g in sterile water 50 ml 2 g INTRAVENOUS PRN(NO DISPENSE) albuterol 2.5 mg /3 mL (0.083 %) 2.5 mg (PROVENTIL) 2.5 mg INHALATION q 2 H PRN calcium chloride 1 g in D5W 100 mL 1 g INTRAVENOUS PRN(NO DISPENSE) oxyCODONE-acetaminophen 5-325 mg 1-2 tablet (PERCOCET) 1-2 tablet ORAL q 4 H PRN morphine 2-4 mg injection 2-4 mg INTRAVENOUS q 1 H PRN pantoprazole 40 mg injection (PROTONIX) 40 mg INTRAVENOUS DAILY (6 AM) ondansetron (PF) 4 mg injection (ZOFRAN) 4 mg INTRAVENOUS q 6 H PRN propofol infusion (DIPRIVAN) 5-50 mcg/kg/min INTRAVENOUS CONTINUOUS ipratropium-albuterol 3 mL nebulizer solution (DUONEB) 3 mL INHALATION q 4 H atorvastatin 40 mg tab(s) (LIPITOR) 40 mg ORAL AT BEDTIME 0.9% NaCl 3-5 mL 3-5 mL INTRAVENOUS q 12 H Surgical Incision 02/09/18 Chest - Midsternal (Active) Dressing Status None: Open to Air 02/16/2018 8:00 AM Frequency of Dressing Change As Needed 02/16/2018 8:00 AM Incision Closures Topical Skin Adhesive 02/16/2018 8:00 AM Drainage Description None 02/16/2018 8:00 AM Drainage Amount None 02/16/2018 8:00 AM Edges Intact 02/16/2018 8:00 AM Hematoma No 02/16/2018 8:00 AM Number of days:7 Surgical Incision 02/09/18 Leg - Left (Active) Dressing Status None: Open to Air 02/16/2018 8:00 AM Frequency of Dressing Change As Needed 02/16/2018 8:00 AM Incision Closures Topical Skin Adhesive 02/16/2018 8:00 AM Drainage Description None 02/16/2018 8:00 AM Drainage Amount None 02/16/2018 8:00 AM Edges Intact 02/16/2018 8:00 AM Hematoma No 02/16/2018 8:00 AM Number of days:7 MNT Billing Type: Re-assess/15 min 8 units SIGNATURE: Marya Marquez PATIENT NAME: Jeffrey Cullen DATE: February 16, 2018 TIME: 10:26 AM PAGER: [phone] CASE MANAGEM Observed: 02/16/2018 Status: COMPLETED Source: [place] 9:14 AM [facility] OTHER CAMPUS REPOSITORY HNO ID: [id number] Author: Latia (Specialist) Jose Service: Care Management Author Type: (none) Type: Care Mgt Progress Note Filed: 02/16/2018 9:14 AM Note Text: [facility] THERAPY NT Observed: 02/16/2018 Status: COMPLETED Source: [place] 8:33 AM [facility] OTHER CAMPUS REPOSITORY HNO ID: [id number] Author: Ursula (Pt) Jay Jay Service: Physical Therapy Author Type: Physical Therapist Type: Therapy (PT/OT/Speech/Resp) Filed: 02/16/2018 8:34 AM Note Text: PHYSICAL THERAPY MISSED VISIT SERVICE DATE: 02/16/2018 SERVICE TIME: 0832 to 0832 ROOM: [place] [address] Attempted Evaluation. Patient not seen due to Illness (Remain intubated. Please reconsult when patient is medically appropriate to work with physical therapy). SIGNATURE: Ursula Goyal PT PATIENT NAME: Jeffrey Cullen DATE: February 16, 2018 TIME: 8:33 AM PAGER/CONTACT #: [phone] GLUCOSE METER Collected: 02/16/2018 Status: F Source: [facility] 6:09 AM HEALTH SYSTEM REPOSITORY TYPE CODE TESTS RESULT OUT OF REFERENCE UNITS RANGE LAB GLUBL(LOINC 70-99 mg/dL ) High Glucose Meter 110 Result Comment: RN NOTIFIED Performed By: #### GLMET #### [facility] [address] [place] [address] HEMOGRAM/DIFF Collected: 02/16/2018 Status: F Source: [facility] 6:00 AM HEALTH SYSTEM REPOSITORY TYPE CODE TESTS RESULT OUT OF REFERENCE UNITS RANGE LAB WBC(LOINC) 4.23-9.07 thou/cmm WBC High 10.92 LAB RBC(LOINC) 4.63-6.08 mil/cmm Low RBC 3.41 LAB HGB(LOINC) 13.7-17.5 g/dL Low Hgb 10.9 LAB HCT(LOINC) 40.1-51.0 % Low Hct 32.5 LAB MCV(LOINC) 83.2-95.6 fl MCV 95.3 LAB MCH(LOINC) 25.7-32.2 pg MCH 32.0 LAB MCHC(LOINC 32.3-36.5 % ) MCHC 33.5 LAB RDW(LOINC) 11.6-14.4 % RDW 13.4 LAB RDWSD(LOIN 36.1-45.8 fl C) RDW SD High 47.0 LAB PLT(LOINC) 141-365 thou/cmm Platelet 201 LAB MPV(LOINC) 8.7-12.0 fl MPV 10.0 LAB SEG(LOINC) % Seg Neutrophil 69.2 LAB IGRE(LOINC % ) Immature Grans 1.90 LAB LYMPH(LOIN % C) Lymphocyte 18.0 LAB MNO(LOINC) % Monocyte 10.3 LAB EOSIN(LOIN % C) Eosinophil 0.5 LAB BASO(LOINC % ) Basophil 0.1 LAB SEGN(LOINC 1.78-5.38 thou/cmm ) Abs. High Neut 7.56 LAB IGAB(LOINC 0.00-0.05 thou/cmm ) Abs High Immature Grans 0.21 LAB LYMN(LOINC 0.84-2.85 thou/cmm ) Abs. Lymph 1.97 LAB MONON(LOIN 0.30-0.82 thou/cmm C) Abs. High Slope 1.12 LAB EOSN(LOINC 0.04-0.54 thou/cmm ) Abs. Eosin 0.05 LAB BASON(LOIN 0.01-0.08 thou/cmm C) Abs. Baso 0.01 Performed By: #### CBCD1 #### [place] [address] BASIC PANEL Collected: 02/16/2018 Status: F Source: [facility] 6:00 AM HEALTH SYSTEM REPOSITORY TYPE CODE TESTS RESULT OUT OF REFERENCE UNITS RANGE LAB NA(LOINC) 136-145 mEq/L Sodium Blood 140 LAB K(LOINC) 3.5-5.1 mEq/L Potassium Blood 3.9 LAB CL(LOINC) 98-107 mEq/L Chloride High Blood 112 LAB CO2(LOINC) 21-32 mEq/L CO2 Blood 28 LAB GLU(LOINC) 70-99 mg/dL Glucose High Blood 110 LAB BUN(LOINC) 7-18 mg/dL BUN High Blood 32 LAB CREA(LOINC 0.67-1.17 mg/dL ) Creatinine Blood 0.84 LAB CA(LOINC) 8.5-10.1 mg/dL Low Calcium Blood 8.1 LAB ANGAP(LOIN 8-16 C) Low Anion Gap 4 Performed By: #### P8 #### [place] [address] MDRD GFR Collected: 02/16/2018 Status: F Source: [facility] 6:00 AM HEALTH SYSTEM REPOSITORY TYPE CODE TESTS RESULT OUT OF RANGE REFERENCE UNITS LAB GFRFN(LOINC >60mL/min/1.73m ) 2 eGFR >60 Result Comment: If the patient is , multiply the result by 1.210. Performed By: #### GFR #### [facility] [address] [place] [address] CHEST 1 VIEW Observed: 02/16/2018 Status: F Source: [facility] 5:43 AM HEALTH SYSTEM REPOSITORY Performed at [facility] APPROVED BY: Saul Garcia MD EXAMINATION: CHEST RADIOGRAPH (SINGLE VIEW AP OR PA) Clinical History: Intubated M: [id number] Comparison: 02/15/2018 RESULT: Lines, tubes, and devices: No change position endotracheal or nasogastric tube. Evidence of sternotomy wires. No change in the right IJ catheter sheath. Lungs and pleura: Interval decrease in interstitial edematous changes. Persistent increased density left lung base.. Cardiomediastinal silhouette: Enlarged and stable. Other: IMPRESSION: Interval decrease in interstitial edematous changes. Persistent increased density left lung base.. GLUCOSE METER Collected: 02/16/2018 Status: F Source: [facility] 12:00 AM HEALTH SYSTEM REPOSITORY TYPE CODE TESTS RESULT OUT OF REFERENCE UNITS RANGE LAB GLUBL(LOINC 70-99 mg/dL ) High Glucose Meter 122 Result Comment: RN NOTIFIED Performed By: #### GLMET #### [place] [address] GLUCOSE METER Collected: 02/15/2018 Status: F Source: [facility] 5:21 PM HEALTH SYSTEM REPOSITORY TYPE CODE TESTS RESULT OUT OF REFERENCE UNITS RANGE LAB GLUBL(LOINC 70-99 mg/dL ) High Glucose Meter 132 Performed By: #### GLMET #### [place] [address] PROGRESS Observed: 02/15/2018 Status: COMPLETED Source: [place] 1:32 PM CLINIC OTHER CAMPUS REPOSITORY HNO ID: [id number] Author: Juan Cabral Service: Cardiovascular Medicine Author Type: Physician Type: Progress Notes Filed: 02/15/2018 1:32 PM Note Text: Result Noted. Patient is currently hospitalized and managed by the in-patient team. Juan Cabral MD GLUCOSE METER Collected: 02/15/2018 Status: F Source: [facility] 11:31 AM HEALTH SYSTEM REPOSITORY TYPE CODE TESTS RESULT OUT OF REFERENCE UNITS RANGE LAB GLUBL(LOINC 70-99 mg/dL ) High Glucose Meter 129 Result Comment: RN NOTIFIED Performed By: #### GLMET #### [facility] [address] [place], [place] [address] GLUCOSE METER Collected: 02/15/2018 Status: F Source: [facility] 11:17 AM HEALTH SYSTEM REPOSITORY TYPE CODE TESTS RESULT OUT OF REFERENCE UNITS RANGE LAB GLUBL(LOINC 70-99 mg/dL ) High Glucose Meter 134 Performed By: #### GLMET #### [facility] [address] [place], [place] [address] PROGRESS Observed: 02/15/2018 Status: COMPLETED Source: [place] 11:10 AM CLINIC OTHER CAMPUS REPOSITORY HNO ID: [id number] Author: Keon Chance Service: Pulmonary Disease Author Type: Physician Type: Progress Notes Filed: 02/15/2018 11:14 AM Note Text: CRITICAL CARE PROGRESS NOTE SERVICE DATE: February 15, 2018 SERVICE TIME: 11:10 AM Admission Date: 02/07/2018 AGE: [age] year old LOS: 8 days REASON FOR ICU ADMISSION: ACTIVE PROBLEM LIST Inguinal Hernia Without Mention of Obstruction Or Gangrene, Unilateral Or Unspecified, (Not Specified As Recurrent) Nstemi (Non-St Elevated Myocardial Infarction) ([facility]) Nsvt (Nonsustained Ventricular Tachycardia) ([facility]) Nicotine use disorder, F17.2 Subjective OVERNIGHT EVENTS: Patient is resting comfortably in bed while sedated and intubated/on the ventilator without any current distress. Objective VITAL SIGNS (last 24hrs min/max): Temp Av.4 ?C (99.3 ?F) Min: 36.5 ?C (97.7 ?F) Max: 37.8 ?C (100 ?F) Pulse Av.3 Min: 69 Max: 97 Cuff No Data Recorded Pain Score: 0/10 24 hour Intake AND Output: Intake/Output Summary (Last 24 hours) at 02/15/18 1110 Last data filed at 02/15/18 1000 Gross per 24 hour Intake 2133 ml Output 2017 ml Net 116 ml PHYSICAL EXAM: RRR Minimal scattered crackles bilaterally without wheezing bilaterally anteriorly. Minimal bowel sounds, soft, nontender, distended. No pedal edema bilaterally. Poor turgor, but dry, intact skin. VENTILATOR INFORMATION: WEANING DATA: Settings: Invasive Ventilator Mode: Pressure Regulated Volume Control (02/15/18 0825) %FIO2: 50 Set Ventilator Respiratory Rate (BPM): 15 Tidal Volume Set (mL): 550 PEEP/CPAP (cm H2O): 5 Patient Data: Inspiratory:Expiratory Ratio: 1:3.4 Peak Inspiratory Pressure (cm H2O): 9 Plateau Pressure (cm H2O): 15 Weaning Data: Spontaneous Respiratory Rate (BPM): 0 INPATIENT MEDICATIONS: Current hospital medications: furosemide 20 mg injection (LASIX) 20 mg INTRAVENOUS ONCE metoprolol tartrate (short acting) 50 mg tab(s) (LOPRESSOR) 50 mg ORAL q 8 H nystatin 5 mL oral liquid (MYCOSTATIN) 5 mL ORAL QID metoclopramide HCl 10 mg injection (REGLAN) 10 mg INTRAVENOUS q 6 H LORazepam 2 mg injection (ATIVAN) 2 mg INTRAVENOUS q 4 H PRN cefTRIAXone iv piggyback 1 g in dextrose (iso-osmotic) 50 mL (ROCEPHIN) 1 g INTRAVENOUS q 24 H dextrose 40 % 15 g 15 g ORAL PRN glucagon 1 mg injection (GLUCAGEN) 1 mg INTRAMUSCULAR PRN dextrose 50% in water 25 mL syringe 12.5 g INTRAVENOUS PRN insulin regular human injection (short acting) (NovoLIN R,HumuLIN R) SUBCUTANEOUS q 6 H bisacodyl 10 mg suppository (DULCOLAX) 10 mg RECTAL DAILY PRN polyethylene glycol 3350 17 g packet (MIRALAX, GLYCOLAX) 17 g ORAL DAILY senna-docusate 8.6-50 mg 1 tablet (SENNA-S) 1 tablet ORAL BID methylPREDNISolone sod succinate(PF) 60 mg injection (Solu- MEDROL) 60 mg INTRAVENOUS q 8 H pill splitter (patient-specific) 1 Each Miscell. (Med.Supl.;Non- Drugs) PRN enoxaparin 40 mg injection (LOVENOX) 40 mg SUBCUTANEOUS q 24 HR Chlorhexidine Gluconate 0.12 % 15 mL (PERIDEX) 15 mL ORAL q 12 H budesonide 0.5 mg/2 mL 1 mg (PULMICORT) 1 mg INHALATION BID amiodarone 360 mg in D5W 200 mL (NEXTERONE) 0.5-1 mg/min INTRAVENOUS CONTINUOUS acetaminophen 650 mg tab(s) (TYLENOL) 650 mg ORAL q 6 H PRN aspirin 81 mg chewable tab(s) 81 mg ORAL DAILY dextrose 50% in water 25 mL syringe 12.5 g INTRAVENOUS PRN potassium chloride iv piggyback 20 mEq in sterile water 100 mL 20 mEq INTRAVENOUS PRN magnesium sulfate in water 2 g in sterile water 50 ml 2 g INTRAVENOUS PRN(NO DISPENSE) albuterol 2.5 mg /3 mL (0.083 %) 2.5 mg (PROVENTIL) 2.5 mg INHALATION q 2 H PRN EPINEPHrine 4 mg in NaCl 0.9% 250 mL 0.5-10 mcg/min INTRAVENOUS CONTINUOUS calcium chloride 1 g in D5W 100 mL 1 g INTRAVENOUS PRN(NO DISPENSE) oxyCODONE-acetaminophen 5-325 mg 1-2 tablet (PERCOCET) 1-2 tablet ORAL q 4 H PRN morphine 2-4 mg injection 2-4 mg INTRAVENOUS q 1 H PRN pantoprazole 40 mg injection (PROTONIX) 40 mg INTRAVENOUS DAILY (6 AM) ondansetron (PF) 4 mg injection (ZOFRAN) 4 mg INTRAVENOUS q 6 H PRN propofol infusion (DIPRIVAN) 5-50 mcg/kg/min INTRAVENOUS CONTINUOUS ipratropium-albuterol 3 mL nebulizer solution (DUONEB) 3 mL INHALATION q 4 H PHENYLephrine 80 mg in D5W 250 mL (NEOSYNEPHRINE) 10-100 mcg/min INTRAVENOUS CONTINUOUS atorvastatin 40 mg tab(s) (LIPITOR) 40 mg ORAL AT BEDTIME 0.9% NaCl 3-5 mL 3-5 mL INTRAVENOUS q 12 H DATA: BLOOD GAS: Recent Labs 02/13/18 1945 02/10/18 0819 02/10/18 0547 02/09/18 2015 02/09/18 1738 02/09/18 1400 02/09/18 1252 02/09/18 1217 RESPHCO3 25.1 23.3 23.0 21.3* 20.8* 23.6 -- -- PH 7.310* 7.392 7.385 7.267* 7.261* 7.193* 7.236* 7.372 PCO2 51.4* 39.3 39.4 48.2* 47.4* 62.0* -- -- [id number] 94.0* 96.1 93.6* 95.2 97.6 96.2 -- -- CBC: Recent Labs 02/15/18 0530 02/13/18 0450 02/12/18 0501 02/11/18 0420 02/10/18 1455 02/10/18 0545 02/09/18 1405 02/09/18 1252 02/09/18 0407 WBC 10.27* 7.83 11.10* 15.13* 14.16* 14.31* 22.43* -- -- 8.26 HB 11.3* 10.0* 10.2* 10.9* 10.1* 10.9* 13.1* -- -- 14.3 HCT 33.2* 30.3* 30.5* 33.3* 31.0* 32.6* 38.7* 29* < > 42.8 PLT 179 105* 96* 105* 107* 112* 157 -- -- 187 MCV 94.9 98.1* 96.5* 98.8* 99.7* 96.4* 97.7* -- -- 96.2* < > = values in this interval not displayed. COAG: Recent Labs 02/10/18 0545 02/09/18 1405 02/09/18 0123 02/08/18 1730 APTT -- 23.0 43.7* 25.8 INR 1.23 1.24 -- -- BMP: Recent Labs 02/15/18 0530 02/14/18 0503 02/13/18 19402/13/18 0450 02/12/18 0501 02/11/18 0420 02/10/18 1455 02/10/18 0545 GLUC 137* 143* 113* 107* 109* 104* 97 95 NA 141 140 140 140 141 142 143 144 K 4.0 4.7 3.5 3.7 3.9 4.3 4.0 3.9 CHLOR 112* 109* 110* 110* 113* 112* 113* 113* CO2 26 23 25 23 25 25 26 25 ANION 7* 13 9 11 7* 9 8 10 BUN 20* 19* 20* 21* 29* 25* 17 14 CREAT 0.83 0.78 0.93 0.86 1.19* 1.34* 1.01 0.93 CHEM: Recent Labs 02/15/18 0530 02/14/18 0503 02/13/18 1945 02/13/18 0450 02/12/18 0501 02/11/18 0420 02/10/18 1455 02/10/18 0545 02/09/18201402/09/18 1405 ALB -- -- -- -- -- -- -- -- -- 2.5* TPROT -- -- -- -- -- -- -- -- -- 5.2* CA 8.2* 8.2* 8.0* 8.0* 8.2* 8.3* 8.1* 7.7* 7.8* 7.9* MG -- -- 2.2 -- -- 2.6 2.5 2.3 1.9 1.8 ICAL -- -- -- -- -- -- 4.73 -- 4.64 -- HEPATIC: Recent Labs 02/09/18 1405 ALKPHOS 64 ALT 30 AST 88* TBILI 0.6 URINALYSIS: Recent Labs 02/13/18 1945 02/10/18 0819 02/10/18 0547 02/09/18 2015 02/09/18 1738 02/09/18 1400 02/09/18 1252 02/09/18 1217 PH 7.310* 7.392 7.385 7.267* 7.261* 7.193* 7.236* 7.372 Assessment/Plan ASSESSMENT: ACTIVE PROBLEM LIST Inguinal Hernia Without Mention of Obstruction Or Gangrene, Unilateral Or Unspecified, (Not Specified As Recurrent) Nstemi (Non-St Elevated Myocardial Infarction) (Hcc) Nsvt (Nonsustained Ventricular Tachycardia) (Hcc) Nicotine use disorder, F17.2 S/P CABG, POD #6 Acute exacerbation of COPD secondary to HCAP PLAN: Continue full ventilator support. Unable to wean given that his resting respiratory rate on the ventilator is 28-30 times/minute. Continue bronchodilators. Finish antibiotic course and de-escalate by changing Zosyn to ceftriaxone. I discontinued vancomycin yesterday. Patient has no need for steroids at this time as the patient has no active bronchospasm currently therefore will discontinue what was started by one of my partners. Will avoid steroids as much as possible given his post-operative state. Hemodynamically stable off pressors. Continue chest tube management as per Cardiovascular/Thoracic Surgery. This patient has a high probability of sudden, clinically significant deterioration, which requires the highest level of physician preparedness to intervene urgently. I managed/supervised life or organ supporting interventions that required frequent physician assessment. I devoted my full attention to the direct care of this patient for the amount of time indicated below. Time I spent with family or surrogate(s) is included only if the patient was incapable of providing the necessary information or participating in medical decision making. Time devoted to teaching and to any procedures I billed separately is not included. PROGNOSIS: Fair Code status: Full Code. Discussed with Registered Nurse, ORAL AND MAXILLOFACIAL SURGEON, PharmD, and Yg Owen (Cardiovascular/Thoracic Surgery PUBLIC ADDRESS SERVICER). Critical Care Documentation: The patient has the following organ/system impairment(s): Respiratory failure (Acute, with Hypoxemia) and coronary artery disease Time spent providing critical care services: 39 minutes. SIGNATURE: Keon Chance MD [facility] PAGER:[phone] DATE of SERVICE: February 15, 2018 TIME of SERVICE: 11:10 AM PROGRESS Observed: 02/15/2018 Status: COMPLETED Source: [place] 10:40 AM [facility] OTHER CAMPUS REPOSITORY HNO ID: [id number] Author: Beata Marin Service: Cardiovascular Surgery Author Type: Physician Type: Progress Notes Filed: 02/15/2018 5:21 PM Note Text: CARDIOTHORACIC SURGERY POSTOP PROGRESS NOTE SERVICE DATE: 02/15/2018 SERVICE TIME: 10:40am Subjective S/P SURGERY: Procedure(s) (LRB): BYPASS GRAFT ARTERY CORONARY ON-PUMP SINGLE CORONARY ARTERIAL GRAFT (N/A) BYPASS GRAFT ARTERY CORONARY ON-PUMP USING VENOUS GRAFT(S) AND ARTERIAL GRAFT(S); TWO VENOUS GRAFTS (N/A) ENDOSCOPIC HARVEST VEIN FOR CORONARY ARTERY BYPASS PROCEDURE (N/A) DATE OF SURGERY: 02/09/2018 POSTOP DAY #6 LOS: 8 INTERVAL EVENTS / PERTINENT ROS: Still on the vent. No events overnight. Attempting CPAP again today per Pulm. Objective Admission Weight: 104.3 kg (229 lb 15 oz) BP 147/62 Pulse 88 Temp 37 ?C (98.6 ?F) (High Thermistor) Resp 14 Ht 180.3 cm (5' 10.98) Wt 111.7 kg (246 lb 4.1 oz) SpO2 97% BMI 34.36 kg/m2 Body surface area is 2.37 meters squared. Min/Max/Average Temperature AND Blood Pressure: Temp (24hrs), Av.2 ?C (99 ?F), Min:36.9 ?C (98.4 ?F), Max:37.5 ?C (99.5 ?F) Systolic (24hrs), Av , Min:141 , Max:147 Diastolic (24hrs), Av, Min:62, Max:75 Intake/Output Summary (Last 24 hours) at 02/15/18 1553 Last data filed at 02/15/18 1200 Gross per 24 hour Intake 2050 ml Output 2353 ml Net -303 ml Current Facility-Administered Medications: - metoprolol tartrate (short acting) 50 mg tab(s) (LOPRESSOR) - nystatin 5 mL oral liquid (MYCOSTATIN) - metoclopramide HCl 10 mg injection (REGLAN) - LORazepam 2 mg injection (ATIVAN) - cefTRIAXone iv piggyback 1 g in dextrose (iso-osmotic) 50 mL (ROCEPHIN) - dextrose 40 % 15 g OR glucagon 1 mg injection (GLUCAGEN) OR dextrose 50% in water 25 mL syringe - insulin regular human injection (short acting) (NovoLIN R,HumuLIN R) - bisacodyl 10 mg suppository (DULCOLAX) - polyethylene glycol 3350 17 g packet (MIRALAX, GLYCOLAX) - senna-docusate 8.6-50 mg 1 tablet (SENNA-S) - pill splitter (patient-specific) - enoxaparin 40 mg injection (LOVENOX) - Chlorhexidine Gluconate 0.12 % 15 mL (PERIDEX) - budesonide 0.5 mg/2 mL 1 mg (PULMICORT) - acetaminophen 650 mg tab(s) (TYLENOL) - aspirin 81 mg chewable tab(s) - dextrose 50% in water 25 mL syringe - potassium chloride iv piggyback 20 mEq in sterile water 100 mL - magnesium sulfate in water 2 g in sterile water 50 ml - albuterol 2.5 mg /3 mL (0.083 %) 2.5 mg (PROVENTIL) - calcium chloride 1 g in D5W 100 mL - oxyCODONE-acetaminophen 5-325 mg 1-2 tablet (PERCOCET) - morphine 2-4 mg injection - pantoprazole 40 mg injection (PROTONIX) - ondansetron (PF) 4 mg injection (ZOFRAN) - propofol infusion (DIPRIVAN) - ipratropium-albuterol 3 mL nebulizer solution (DUONEB) - atorvastatin 40 mg tab(s) (LIPITOR) - 0.9% NaCl 3-5 mL TELEMETRY: normal sinus rhythm PHYSICAL EXAM: General Appearance: no distress and sedated on the vent Skin: Midsternal incision dry AND intact. and SVG incisions dry AND intact. Lungs: decreased breath sounds and respiratory effort: normal Heart: regular rhythm, S1, S2 normal and pacing wires present Abdomen: soft, non-tender and bowel sounds present Genitourinary: High intact, urine color is clear yellow Extremities: edema: 1+ Lines, Drains, and Airways Line Peripheral 02/08/18 0100 Short Right Arm 20 Gauge 7 days Arterial Line 02/09/18 0830 Arterial Line Left Radial 6 days Central Line Double Lumen 02/09/18 0845 Non-tunneled Right Neck 6 days Peripheral 02/09/18 0820 Left Forearm 16 Gauge 6 days Drain GI Feed/Drain 02/09/18 0800 Oral Gastric Midline 6 days Indwelling Urinary Catheter 02/09/18 0838 Temperature Monitoring 16 Fr 6 days Airway Airway Endotracheal Tube 02/09/18 0800 6 days DATA: Diagnostic tests reviewed for today's visit: Recent Labs 02/15/18 0530 02/14/18 0503 02/13/18 1945 02/13/18 0450 RBC 3.50* -- -- 3.09* WBC 10.27* -- -- 7.83 HB 11.3* -- -- 10.0* HCT 33.2* -- -- 30.3* PLT 179 -- -- 105* NA 141 140 140 140 K 4.0 4.7 3.5 3.7 CHLOR 112* 109* 110* 110* CO2 26 23 25 23 BUN 20* 19* 20* 21* CREAT 0.83 0.78 0.93 0.86 GLUC 137* 143* 113* 107* CA 8.2* 8.2* 8.0* 8.0* MG -- -- 2.2 -- ANION 7* 13 9 11 Recent Labs 02/13/181944 PH 7.310* PCO2 51.4* PO2 79.6* BE -1.3 Assessment/Plan Acute NSTEMI s/p CABG x 3 -POD#6 -c/w ASA, statin; increase BB to 50mg q8h -Post thorax vest ?? Acute hypoxic AND hypercapneic respiratory failure 2/2 severe COPD and PNA -Vent management per pulmonary service -Attempting to wean to CPAP. ??? Klebsiella and E. coli HCAP -On ceftriaxone Oral Thrush -c/w nystatin ?? Volume Overload -c/w Lasix IV 20mg daily Constipation -c/w miralax and senokot-s -no results with dulcolax supp. -give mag citrate today Nutrition -consider trial TF again today -if unable to TF and not weaning vent, will need TPN DVT ppx -Lovenox and SCDs Tests/Labs Ordered: 1. [facility] SIGNATURE: Clementine Owen APRN.CNP PATIENT NAME: Jeffrey Cullen DATE: February 15, 2018 TIME: 3:53 PM PAGER/CONTACT #: [phone] ETX [phone] Patient seen w PUBLIC ADDRESS SERVICER. Labs, data, and careplan reviewed. P-as discussed/ordered. CHEST 1 VIEW Observed: 02/15/2018 Status: F Source: [place] 6:34 AM HEALTH SYSTEM REPOSITORY Performed at [facility] APPROVED BY: Chan Fernandez MD PORTABLE FRONTAL CHEST 0605 HOURS: CLINICAL INDICATION: Respiratory failure. COMPARISON: Daily prior chest radiographs. Multiple wires and tubes overlie the chest. There is an endotracheal tube in profile with the tracheal airway terminating approximately 5 cm above the nelda. There is an enteric tube extending below the diaphragm. There is a right internal jugular cordis. There are bilateral interstitial and airspace opacities. There is increased retrocardiac opacity on the left with poor visualization of the hemidiaphragm. Stable prominent cardiac mediastinal silhouette. Findings of median sternotomy. IMPRESSION: Bilateral interstitial and airspace opacities. Increased retrocardiac opacity on the left possibly secondary to pleural effusion and/or atelectasis or consolidation. Stable prominent cardiac and mediastinal silhouette. Life-support equipment as noted. GLUCOSE METER Collected: 02/15/2018 Status: F Source: [place] 5:51 AM HEALTH SYSTEM REPOSITORY TYPE CODE TESTS RESULT OUT OF REFERENCE UNITS RANGE LAB GLUBL(LOINC 70-99 mg/dL ) High Glucose Meter 136 Performed By: #### GLMET #### [facility] [address] [place], [place] [address] HEMOGRAM Collected: 02/15/2018 Status: F Source: [facility] 5:30 AM HEALTH SYSTEM REPOSITORY TYPE CODE TESTS RESULT OUT OF REFERENCE UNITS RANGE LAB WBC(LOINC) 4.23-9.07 thou/cmm High WBC 10.27 LAB RBC(LOINC) 4.63-6.08 mil/cmm Low RBC 3.50 LAB HGB(LOINC) 13.7-17.5 g/dL Low Hgb 11.3 LAB HCT(LOINC) 40.1-51.0 % Low Hct 33.2 LAB MCV(LOINC) 83.2-95.6 fl MCV 94.9 LAB MCH(LOINC) 25.7-32.2 pg High MCH 32.3 LAB MCHC(LOINC) 32.3-36.5 % MCHC 34.0 LAB RDW(LOINC) 11.6-14.4 % RDW 13.1 LAB RDWSD(LOINC 36.1-45.8 fl ) RDW SD 45.2 LAB PLT(LOINC) 141-365 thou/cmm Platelet 179 LAB MPV(LOINC) 8.7-12.0 fl MPV 10.1 Performed By: #### CBC1 #### [facility] [address] [place] [address] BASIC PANEL Collected: 02/15/2018 Status: F Source: [facility] 5:30 AM HEALTH SYSTEM REPOSITORY TYPE CODE TESTS RESULT OUT OF REFERENCE UNITS RANGE LAB NA(LOINC) 136-145 mEq/L Sodium Blood 141 LAB K(LOINC) 3.5-5.1 mEq/L Potassium Blood 4.0 LAB CL(LOINC) 98-107 mEq/L Chloride High Blood 112 LAB CO2(LOINC) 21-32 mEq/L CO2 Blood 26 LAB GLU(LOINC) 70-99 mg/dL Glucose High Blood 137 LAB BUN(LOINC) 7-18 mg/dL BUN High Blood 20 LAB CREA(LOINC 0.67-1.17 mg/dL ) Creatinine Blood 0.83 LAB CA(LOINC) 8.5-10.1 mg/dL Low Calcium Blood 8.2 LAB ANGAP(LOIN 8-16 C) Low Anion Gap 7 Performed By: #### P8 #### [facility] [address] [place] [id number] MDRD GFR Collected: 02/15/2018 Status: F Source: [facility] 5:30 AM HEALTH SYSTEM REPOSITORY TYPE CODE TESTS RESULT OUT OF RANGE REFERENCE UNITS LAB GFRFN(LOINC >60mL/min/1.73m ) 2 eGFR >60 Result Comment: If the patient is , multiply the result by 1.210. Performed By: #### GFR #### [facility] [address] [place] [address] GLUCOSE METER Collected: 02/14/2018 Status: F Source: [facility] 11:59 PM HEALTH SYSTEM REPOSITORY TYPE CODE TESTS RESULT OUT OF REFERENCE UNITS RANGE LAB GLUBL(LOINC 70-99 mg/dL ) High Glucose Meter 134 Result Comment: RN NOTIFIED Performed By: #### GLMET #### [place] [id number] PROGRESS Observed: 02/14/2018 Status: COMPLETED Source: [place] 6:26 PM CLINIC OTHER CAMPUS REPOSITORY HNO ID: [id number] Author: Juan Cabral Service: Cardiovascular Medicine Author Type: Physician Type: Progress Notes Filed: 02/14/2018 6:26 PM Note Text: Result Noted. Patient is currently hospitalized and managed by the in-patient team. Juan Cabral MD GLUCOSE METER Collected: 02/14/2018 Status: F Source: [facility] 6:14 PM HEALTH SYSTEM REPOSITORY TYPE CODE TESTS RESULT OUT OF REFERENCE UNITS RANGE LAB GLUBL(LOINC 70-99 mg/dL ) High Glucose Meter 132 Result Comment: RN NOTIFIED Performed By: #### GLMET #### [facility] [address] [place] [address] PROGRESS Observed: 02/14/2018 Status: COMPLETED Source: [place] 5:43 PM CLINIC OTHER CAMPUS REPOSITORY HNO ID: [id number] Author: Juan Cabral Service: Cardiovascular Medicine Author Type: Physician Type: Progress Notes Filed: 02/14/2018 5:43 PM Note Text: Result Noted. Patient is currently hospitalized and managed by the in-patient team. Juan Cabral MD NUTRITION Observed: 02/14/2018 Status: COMPLETED Source: [place] 1:21 PM CLINIC OTHER CAMPUS REPOSITORY HNO ID: [id number] Author: Sandra Alvarado) TREASURE Almaguer Service: Nutrition Therapy Author Type: Registered Dietitian Type: Nutrition Filed: 02/14/2018 1:35 PM Note Text: NUTRITION THERAPY PROGRESS NOTE SERVICE DATE: 02/14/2018 SERVICE TIME: 1:22 PM RECOMMENDED DIAGNOSIS: NO MALNUTRITION IDENTIFIED per Registered Dietitian on 02/11/18 NUTRITION CARE PLAN Intervention: Impact Peptide at goal rate 57 ml/hr to provide 1368 ml product - 2052 kcal, 128.6 gm protein, 1053 ml free water Flush with 30 ml 6 times per day (Flush goal 165 ml 6 times per day) If continues to have problems with TF tolerance after restart could consider full elemental tf or post-pyloric tube placement Coordination of Care: Nursing, [place] LINE ATTENDANT, MD and pharmacy Monitor and Evaluation: Goal: Meet >75% of estimated needs Monitor fluid/electrolyte balance Monitor labs, I/Os, vital signs, weight Monitor tolerance to tube feeding Discharge Nutrition Recommendations: To be determined Chart reviewed for follow up from consult Per HPI: 67 year old male patient with no known PMH other than long history of smoking ( 2packs a day for more than 30 years) Earlier 02/07/18 he was sitting and suddenly started having substernal chest pain, pain is intermittent with no radiation, he felt nauseas but no vomiting and no diaphoresis This pain kept coming so he went to the ER ? Underwent LHC on 02/08/18 showed need for CABG, underwent CABG on 02/09/18. Interval History: Chest tubed pulled 02/11. Remains on vent support. Noted residuals and tube feeding held at present. Started on Reglan daily from PRN. ACTIVE PROBLEM LIST Inguinal Hernia Without Mention of Obstruction Or Gangrene, Unilateral Or Unspecified, (Not Specified As Recurrent) Nstemi (Non-St Elevated Myocardial Infarction) (Hcc) Nsvt (Nonsustained Ventricular Tachycardia) (Hcc) Nicotine use disorder, F17.2 No past medical history on file. PAST SURGICAL HISTORY Procedure Laterality Date - ORTHOPEDICS SURGERY HX - REPAIR ING HERNIA,5+Y/O,REDUCIBL 1989 Hernia repair, inguinal,left Present Diet Order: NPO, tube feeding held at present due to high residuals. Nutritional Intake: <50% estimated energy need over the past 7 day(s), tf held at present Admission Weight: 104.3 kg (229 lb 15 oz) Current Weight: 111.2 kg (245 lb 2.4 oz) Body mass index is 34.21 kg/(m2). class 1 obesity Last 12 Encounter Wt Readings: Date: Wt: 02/07/2018 111.2 kg (245 lb 2.4 oz) 02/07/2018 104.3 kg (230 lb) 12/04/2007 100.2 kg (221 lb) ALLERGIES No Known Allergies Current Facility-Administered Medications: nystatin 5 mL oral liquid (MYCOSTATIN) 5 mL ORAL QID metoprolol tartrate (short acting) 25 mg tab(s) (LOPRESSOR) 25 mg ORAL q 8 H metoclopramide HCl 10 mg injection (REGLAN) 10 mg INTRAVENOUS q 6 H LORazepam 2 mg injection (ATIVAN) 2 mg INTRAVENOUS q 4 H PRN cefTRIAXone iv piggyback 1 g in dextrose (iso-osmotic) 50 mL (ROCEPHIN) 1 g INTRAVENOUS q 24 H dextrose 40 % 15 g 15 g ORAL PRN Or glucagon 1 mg injection (GLUCAGEN) 1 mg INTRAMUSCULAR PRN Or dextrose 50% in water 25 mL syringe 12.5 g INTRAVENOUS PRN insulin regular human injection (short acting) (NovoLIN R,HumuLIN R) SUBCUTANEOUS q 6 H bisacodyl 10 mg suppository (DULCOLAX) 10 mg RECTAL DAILY PRN polyethylene glycol 3350 17 g packet (MIRALAX, GLYCOLAX) 17 g ORAL DAILY senna-docusate 8.6-50 mg 1 tablet (SENNA-S) 1 tablet ORAL BID methylPREDNISolone sod succinate(PF) 60 mg injection (Solu- MEDROL) 60 mg INTRAVENOUS q 8 H pill splitter (patient-specific) 1 Each Miscell. (Med.Supl.;Non- Drugs) PRN enoxaparin 40 mg injection (LOVENOX) 40 mg SUBCUTANEOUS q 24 HR Chlorhexidine Gluconate 0.12 % 15 mL (PERIDEX) 15 mL ORAL q 12 H budesonide 0.5 mg/2 mL 1 mg (PULMICORT) 1 mg INHALATION BID amiodarone 360 mg in D5W 200 mL (NEXTERONE) 0.5-1 mg/min INTRAVENOUS CONTINUOUS acetaminophen 650 mg tab(s) (TYLENOL) 650 mg ORAL q 6 H PRN aspirin 81 mg chewable tab(s) 81 mg ORAL DAILY dextrose 50% in water 25 mL syringe 12.5 g INTRAVENOUS PRN potassium chloride iv piggyback 20 mEq in sterile water 100 mL 20 mEq INTRAVENOUS PRN magnesium sulfate in water 2 g in sterile water 50 ml 2 g INTRAVENOUS PRN(NO DISPENSE) albuterol 2.5 mg /3 mL (0.083 %) 2.5 mg (PROVENTIL) 2.5 mg INHALATION q 2 H PRN EPINEPHrine 4 mg in NaCl 0.9% 250 mL 0.5-10 mcg/min INTRAVENOUS CONTINUOUS calcium chloride 1 g in D5W 100 mL 1 g INTRAVENOUS PRN(NO DISPENSE) oxyCODONE-acetaminophen 5-325 mg 1-2 tablet (PERCOCET) 1-2 tablet ORAL q 4 H PRN morphine 2-4 mg injection 2-4 mg INTRAVENOUS q 1 H PRN pantoprazole 40 mg injection (PROTONIX) 40 mg INTRAVENOUS DAILY (6 AM) ondansetron (PF) 4 mg injection (ZOFRAN) 4 mg INTRAVENOUS q 6 H PRN propofol infusion (DIPRIVAN) 5-50 mcg/kg/min INTRAVENOUS CONTINUOUS ipratropium-albuterol 3 mL nebulizer solution (DUONEB) 3 mL INHALATION q 4 H PHENYLephrine 80 mg in D5W 250 mL (NEOSYNEPHRINE) 10-100 mcg/min INTRAVENOUS CONTINUOUS atorvastatin 40 mg tab(s) (LIPITOR) 40 mg ORAL AT BEDTIME 0.9% NaCl 3-5 mL 3-5 mL INTRAVENOUS q 12 H Surgical Incision 02/09/18 Chest - Midsternal (Active) Dressing Status None: Open to Air 02/14/2018 11:15 AM Frequency of Dressing Change As Needed 02/12/2018 8:00 AM Incision Closures Topical Skin Adhesive 02/14/2018 8:14 AM Drainage Description None 02/14/2018 11:15 AM Drainage Amount None 02/14/2018 11:15 AM Edges Intact 02/14/2018 11:15 AM Hematoma No 02/14/2018 11:15 AM Number of days:5 Surgical Incision 02/09/18 Leg - Left (Active) Dressing Status None: Open to Air 02/14/2018 11:15 AM Frequency of Dressing Change As Needed 02/12/2018 8:00 AM Incision Closures Topical Skin Adhesive 02/14/2018 11:15 AM Drainage Description None 02/14/2018 11:15 AM Drainage Amount None 02/14/2018 11:15 AM Edges Intact 02/14/2018 11:15 AM Hematoma No 02/14/2018 11:15 AM Number of days:5 MNT Billing Type: Re-assess/15 min 3 units SIGNATURE: Sandra Almaguer RD, [place] PATIENT NAME: Jeffrey Cullen DATE: February 14, 2018 TIME: 1:22 PM PAGER: [phone] PROGRESS Observed: 02/14/2018 Status: COMPLETED Source: [place] 12:31 PM CLINIC OTHER CAMPUS REPOSITORY O ID: [id number] Author: Keon Chance Service: Pulmonary Disease Author Type: Physician Type: Progress Notes Filed: 02/14/2018 12:37 PM Note Text: CRITICAL CARE PROGRESS NOTE SERVICE DATE: February 14, 2018 SERVICE TIME: 12:32 PM Admission Date: 02/07/2018 AGE: [age] year old LOS: 7 days REASON FOR ICU ADMISSION: ACTIVE PROBLEM LIST Inguinal Hernia Without Mention of Obstruction Or Gangrene, Unilateral Or Unspecified, (Not Specified As Recurrent) Nstemi (Non-St Elevated Myocardial Infarction) ([facility]) Nsvt (Nonsustained Ventricular Tachycardia) ([facility]) Nicotine use disorder, F17.2 Subjective OVERNIGHT EVENTS: Patient is resting comfortably in bed while sedated and intubated/on the ventilator without any current distress. Objective VITAL SIGNS (last 24hrs min/max): Temp Av.4 ?C (99.3 ?F) Min: 36.5 ?C (97.7 ?F) Max: 37.8 ?C (100 ?F) Pulse Av.3 Min: 69 Max: 97 Cuff No Data Recorded Pain Score: 0/10 24 hour Intake AND Output: Intake/Output Summary (Last 24 hours) at 02/14/18 1232 Last data filed at 02/14/18 1100 Gross per 24 hour Intake 3298.2 ml Output 2673 ml Net 625.2 ml PHYSICAL EXAM: RRR Minimal scattered crackles bilaterally without wheezing bilaterally anteriorly. Minimal bowel sounds, soft, nontender, distended. No pedal edema bilaterally. Poor turgor, but dry, intact skin. VENTILATOR INFORMATION: WEANING DATA: Settings: Invasive Ventilator Mode: Pressure Regulated Volume Control (02/14/18 1143) %FIO2: 40 Set Ventilator Respiratory Rate (BPM): 15 Tidal Volume Set (mL): 550 PEEP/CPAP (cm H2O): 5 Patient Data: Inspiratory:Expiratory Ratio: 1:3.4 Peak Inspiratory Pressure (cm H2O): 14 Plateau Pressure (cm H2O): 15 Weaning Data: Spontaneous Respiratory Rate (BPM): 0 INPATIENT MEDICATIONS: Current hospital medications: nystatin 5 mL oral liquid (MYCOSTATIN) 5 mL ORAL QID metoprolol tartrate (short acting) 25 mg tab(s) (LOPRESSOR) 25 mg ORAL q 8 H metoclopramide HCl 10 mg injection (REGLAN) 10 mg INTRAVENOUS q 6 H LORazepam 2 mg injection (ATIVAN) 2 mg INTRAVENOUS q 4 H PRN cefTRIAXone iv piggyback 1 g in dextrose (iso-osmotic) 50 mL (ROCEPHIN) 1 g INTRAVENOUS q 24 H dextrose 40 % 15 g 15 g ORAL PRN glucagon 1 mg injection (GLUCAGEN) 1 mg INTRAMUSCULAR PRN dextrose 50% in water 25 mL syringe 12.5 g INTRAVENOUS PRN insulin regular human injection (short acting) (NovoLIN R,HumuLIN R) SUBCUTANEOUS q 6 H bisacodyl 10 mg suppository (DULCOLAX) 10 mg RECTAL DAILY PRN polyethylene glycol 3350 17 g packet (MIRALAX, GLYCOLAX) 17 g ORAL DAILY senna-docusate 8.6-50 mg 1 tablet (SENNA-S) 1 tablet ORAL BID methylPREDNISolone sod succinate(PF) 60 mg injection (Solu- MEDROL) 60 mg INTRAVENOUS q 8 H pill splitter (patient-specific) 1 Each Miscell. (Med.Supl.;Non- Drugs) PRN enoxaparin 40 mg injection (LOVENOX) 40 mg SUBCUTANEOUS q 24 HR Chlorhexidine Gluconate 0.12 % 15 mL (PERIDEX) 15 mL ORAL q 12 H budesonide 0.5 mg/2 mL 1 mg (PULMICORT) 1 mg INHALATION BID amiodarone 360 mg in D5W 200 mL (NEXTERONE) 0.5-1 mg/min INTRAVENOUS CONTINUOUS acetaminophen 650 mg tab(s) (TYLENOL) 650 mg ORAL q 6 H PRN aspirin 81 mg chewable tab(s) 81 mg ORAL DAILY dextrose 50% in water 25 mL syringe 12.5 g INTRAVENOUS PRN potassium chloride iv piggyback 20 mEq in sterile water 100 mL 20 mEq INTRAVENOUS PRN magnesium sulfate in water 2 g in sterile water 50 ml 2 g INTRAVENOUS PRN(NO DISPENSE) albuterol 2.5 mg /3 mL (0.083 %) 2.5 mg (PROVENTIL) 2.5 mg INHALATION q 2 H PRN EPINEPHrine 4 mg in NaCl 0.9% 250 mL 0.5-10 mcg/min INTRAVENOUS CONTINUOUS calcium chloride 1 g in D5W 100 mL 1 g INTRAVENOUS PRN(NO DISPENSE) oxyCODONE-acetaminophen 5-325 mg 1-2 tablet (PERCOCET) 1-2 tablet ORAL q 4 H PRN morphine 2-4 mg injection 2-4 mg INTRAVENOUS q 1 H PRN pantoprazole 40 mg injection (PROTONIX) 40 mg INTRAVENOUS DAILY (6 AM) ondansetron (PF) 4 mg injection (ZOFRAN) 4 mg INTRAVENOUS q 6 H PRN propofol infusion (DIPRIVAN) 5-50 mcg/kg/min INTRAVENOUS CONTINUOUS ipratropium-albuterol 3 mL nebulizer solution (DUONEB) 3 mL INHALATION q 4 H PHENYLephrine 80 mg in D5W 250 mL (NEOSYNEPHRINE) 10-100 mcg/min INTRAVENOUS CONTINUOUS atorvastatin 40 mg tab(s) (LIPITOR) 40 mg ORAL AT BEDTIME 0.9% NaCl 3-5 mL 3-5 mL INTRAVENOUS q 12 H DATA: BLOOD GAS: Recent Labs 02/13/18 1945 02/10/18 0819 02/10/18 0547 02/09/18 2015 02/09/18 1738 02/09/18 1400 02/09/18 1252 02/09/18 1217 RESPHCO3 25.1 23.3 23.0 21.3* 20.8* 23.6 -- -- PH 7.310* 7.392 7.385 7.267* 7.261* 7.193* 7.236* 7.372 PCO2 51.4* 39.3 39.4 48.2* 47.4* 62.0* -- -- C4LWAEGD 94.0* 96.1 93.6* 95.2 97.6 96.2 -- -- CBC: Recent Labs 02/13/18 0450 02/12/18 0501 02/11/18 0420 02/10/18 1455 02/10/18 0545 02/09/18 1405 02/09/18 1252 02/09/18 1217 02/09/18 0407 02/08/18 0500 WBC 7.83 11.10* 15.13* 14.16* 14.31* 22.43* -- -- -- 8.26 11.59* HB 10.0* 10.2* 10.9* 10.1* 10.9* 13.1* -- -- -- 14.3 14.5 HCT 30.3* 30.5* 33.3* 31.0* 32.6* 38.7* 29* 30* < > 42.8 42.8 PLT 105* 96* 105* 107* 112* 157 -- -- -- 187 222 MCV 98.1* 96.5* 98.8* 99.7* 96.4* 97.7* -- -- -- 96.2* 95.1 < > = values in this interval not displayed. COAG: Recent Labs 02/10/18 0545 02/09/18 1405 02/09/18 0123 02/08/18 1730 02/08/18 0700 02/08/18 0105 02/07/18 2243 02/07/18 1525 APTT -- 23.0 43.7* 25.8 28.5 28.3 -- -- INR 1.23 1.24 -- -- -- 1.05 1.10 1.10 BMP: Recent Labs 02/14/18 0503 02/13/18 1945 02/13/18 0450 02/12/18 0501 02/11/18 0420 02/10/18 1455 02/10/18 0545 02/09/18 2015 GLUC 143* 113* 107* 109* 104* 97 95 135* NA 140 140 140 141 142 143 144 143 K 4.7 3.5 3.7 3.9 4.3 4.0 3.9 3.9 CHLOR 109* 110* 110* 113* 112* 113* 113* 113* CO2 23 25 23 25 25 26 25 23 ANION 13 9 11 7* 9 8 10 11 BUN 19* 20* 21* 29* 25* 17 14 15 CREAT 0.78 0.93 0.86 1.19* 1.34* 1.01 0.93 1.01 CHEM: Recent Labs 02/14/18 0503 02/13/18 1945 02/13/18 0450 02/12/18 0501 02/11/18 0420 02/10/18 1455 02/10/18 0545 02/09/18201402/09/18 1405 02/07/18 2243 02/07/18 1525 ALB -- -- -- -- -- -- -- -- 2.5* -- -- 3.0* TPROT -- -- -- -- -- -- -- -- 5.2* -- -- 7.5 CA 8.2* 8.0* 8.0* 8.2* 8.3* 8.1* 7.7* 7.8* 7.9* < > -- 8.8 MG -- 2.2 -- -- 2.6 2.5 2.3 1.9 1.8 -- 2.3 -- ICAL -- -- -- -- -- 4.73 -- 4.64 -- -- -- -- < > = values in this interval not displayed. HEPATIC: Recent Labs 02/09/18 1405 02/07/18 1525 ALKPHOS 64 104 ALT 30 27 AST 88* 23 TBILI 0.6 0.4 LIPASE -- 158 URINALYSIS: Recent Labs 02/13/18 19402/10/18 0819 02/10/18 0547 02/09/18201402/09/18 1738 02/09/18 1400 02/09/18 1252 02/09/18 1217 PH 7.310* 7.392 7.385 7.267* 7.261* 7.193* 7.236* 7.372 Assessment/Plan ASSESSMENT: ACTIVE PROBLEM LIST Inguinal Hernia Without Mention of Obstruction Or Gangrene, Unilateral Or Unspecified, (Not Specified As Recurrent) Nstemi (Non-St Elevated Myocardial Infarction) (Hcc) Nsvt (Nonsustained Ventricular Tachycardia) (Hcc) Nicotine use disorder, F17.2 S/P CABG, POD #5 Acute exacerbation of COPD secondary to HCAP PLAN: Continue full ventilator support. Unable to wean given that his resting respiratory rate on the ventilator is 28-30 times/minute. Continue bronchodilators. Finish antibiotic course and de-escalate by changing Zosyn to ceftriaxone. I discontinued vancomycin yesterday. Patient has no need for steroids at this time as the patient has no active bronchospasm currently. Will avoid steroids as much as possible given his post-operative state. Hemodynamically stable off pressors. Continue chest tube management as per Cardiovascular/Thoracic Surgery. Continue diabetes mellitus treatment as per the post-cardiac surgery protocol. This patient has a high probability of sudden, clinically significant deterioration, which requires the highest level of physician preparedness to intervene urgently. I managed/supervised life or organ supporting interventions that required frequent physician assessment. I devoted my full attention to the direct care of this patient for the amount of time indicated below. Time I spent with family or surrogate(s) is included only if the patient was incapable of providing the necessary information or participating in medical decision making. Time devoted to teaching and to any procedures I billed separately is not included. PROGNOSIS: Fair Code status: Full Code. Discussed with Registered RN and PharmD. Critical Care Documentation: The patient has the following organ/system impairment(s): Respiratory failure (Acute, with Hypoxemia) and coronary artery disease Time spent providing critical care services: 41 minutes. SIGNATURE: Keon Chance MD [facility] PAGER:[phone] DATE of SERVICE: February 14, 2018 TIME of SERVICE: 12:32 PM GLUCOSE METER Collected: 02/14/2018 Status: F Source: [facility] 11:59 AM HEALTH SYSTEM REPOSITORY TYPE CODE TESTS RESULT OUT OF REFERENCE UNITS RANGE LAB GLUBL(LOINC 70-99 mg/dL ) High Glucose Meter 158 Result Comment: RN NOTIFIED Performed By: #### GLMET #### [facility] [address] [id number] PROGRESS Observed: 02/14/2018 Status: COMPLETED Source: [place] 11:40 AM CLINIC OTHER CAMPUS REPOSITORY HNO ID: [id number] Author: Beata Marin Service: Cardiac Surgery Author Type: Physician Type: Progress Notes Filed: 02/14/2018 7:16 PM Note Text: CARDIOTHORACIC SURGERY POSTOP PROGRESS NOTE SERVICE DATE: 02/14/2018 SERVICE TIME: 11:40 AM Subjective S/P SURGERY: Procedure(s) (LRB): BYPASS GRAFT ARTERY CORONARY ON-PUMP SINGLE CORONARY ARTERIAL GRAFT (N/A) BYPASS GRAFT ARTERY CORONARY ON-PUMP USING VENOUS GRAFT(S) AND ARTERIAL GRAFT(S); TWO VENOUS GRAFTS (N/A) ENDOSCOPIC HARVEST VEIN FOR CORONARY ARTERY BYPASS PROCEDURE (N/A) DATE OF SURGERY: 02/09/2018 POSTOP DAY #5 LOS: 7 INTERVAL EVENTS / PERTINENT ROS: Patient in bed, sedated and intubated. Continues to have excess residual from tube feeds. Episodes of AFIB/RVR over night, d/c cardene and increase BB to 25q8. Currently in NSR. Also appears he is developing thrush, nystatin has been ordered. Objective Admission Weight: 104.3 kg (229 lb 15 oz) BP 116/67 Pulse 72 Temp 37.6 ?C (99.7 ?F) Resp 14 Ht 180.3 cm (5' 10.98) Wt 111.2 kg (245 lb 2.4 oz) SpO2 94% BMI 34.21 kg/m2 Body surface area is 2.36 meters squared. Min/Max/Average Temperature AND Blood Pressure: Temp (24hrs), Av.3 ?C (99.1 ?F), Min:36.1 ?C (97 ?F), Max:37.7 ?C (99.9 ?F) No data recorded. No data recorded. Intake/Output Summary (Last 24 hours) at 02/14/18 1140 Last data filed at 02/14/18 1100 Gross per 24 hour Intake 3298.2 ml Output 2982 ml Net 316.2 ml TELEMETRY: NSR, but had episodes of AFIB/RVR over night PHYSICAL EXAM: General Appearance: well developed and sedated on ventilator Skin: No rash on chest, arms or legs. Warm, dry. Midsternal AND SVG incision dry AND intact, without redness, drainage or edema. Mouth/Pharynx: dentures and thrush developing Lungs: clear Heart: regular rhythm and S1, S2 normal Abdomen: soft, round and bowel sounds present Neurologic/Psychiatric: sedated Extremities: edema: 1+ Lines, Drains, and Airways Line Peripheral 02/07/18 1600 Admission to Hospital Short Right Antecubital 6 days Peripheral 02/08/18 0100 Short Right Arm 20 Gauge 6 days Peripheral 02/08/18 0700 Short Left Forearm 6 days Arterial Line 02/09/18 0830 Arterial Line Left Radial 5 days Central Line Double Lumen 02/09/18 0845 Non-tunneled Right Neck 5 days Peripheral 02/09/18 0820 Left Forearm 16 Gauge 5 days Drain GI Feed/Drain 02/09/18 0800 Oral Gastric Midline 5 days Indwelling Urinary Catheter 02/09/18 0838 Temperature Monitoring 16 Fr 5 days Airway Airway Endotracheal Tube 02/09/18 0800 5 days DATA: Recent Labs 02/14/18 0503 02/13/18 1945 02/13/18 0450 02/12/18 0501 RBC -- -- 3.09* 3.16* WBC -- -- 7.83 11.10* HB -- -- 10.0* 10.2* HCT -- -- 30.3* 30.5* PLT -- -- 105* 96* NA 140 140 140 141 K 4.7 3.5 3.7 3.9 CHLOR 109* 110* 110* 113* CO2 23 25 23 25 BUN 19* 20* 21* 29* CREAT 0.78 0.93 0.86 1.19* GLUC 143* 113* 107* 109* CA 8.2* 8.0* 8.0* 8.2* MG -- 2.2 -- -- ANION 13 9 11 7* Recent Labs 02/13/181944 PH 7.310* PCO2 51.4* PO2 79.6* BE -1.3 Assessment/Plan Acute NSTEMI s/p CABG x 3 -POD#5 -c/w ASA, statin, increase BB to 25 q 8 -d/c cardene -Post thorax vest -continue bowel regimen, reglan started by critical care -d/c maintenance fluids ?? Anticipated acute pulmonary insufficiency s/p CTS 2/2 underlying COPD AND atelectasis -Vent management per pulmonary service ? Thrombocytopenia -CBC tomorrow Pneumonia -cultures positive for Klebsiella oxytoca and Escherichia coli -antibiotic therapy per pulmonary Oral Thrush -nystatin ordered ? Volume Overload -20 IV lasix ?? Tests/Labs Ordered: 1. Chest X-ray 2. BMP 3. CBC SIGNATURE: Misti Stein PA-C PATIENT NAME: Jeffrey Cullen DATE: February 14, 2018 TIME: 11:40 AM PAGER/CONTACT #:[phone] ETX [id number] Patient seen with PA and PUBLIC ADDRESS SERVICER. Careplan reviewed. P-as ordered. GLUCOSE METER Collected: 02/14/2018 Status: F Source: [facility] 10:08 AM HEALTH SYSTEM REPOSITORY TYPE CODE TESTS RESULT OUT OF REFERENCE UNITS RANGE LAB GLUBL(LOINC 70-99 mg/dL ) High Glucose Meter 139 Result Comment: RN NOTIFIED Performed By: #### GLMET #### [place] [address] GLUCOSE METER Collected: 02/14/2018 Status: F Source: [facility] 8:11 AM HEALTH SYSTEM REPOSITORY TYPE CODE TESTS RESULT OUT OF REFERENCE UNITS RANGE LAB GLUBL(LOINC 70-99 mg/dL ) High Glucose Meter 145 Result Comment: RN NOTIFIED Performed By: #### GLMET #### [place] [address] GLUCOSE METER Collected: 02/14/2018 Status: F Source: [facility] 5:03 AM HEALTH SYSTEM REPOSITORY TYPE CODE TESTS RESULT OUT OF REFERENCE UNITS RANGE LAB GLUBL(LOINC 70-99 mg/dL ) High Glucose Meter 132 Result Comment: RN NOTIFIED Performed By: #### GLMET #### [place] [address] BASIC PANEL Collected: 02/14/2018 Status: F Source: [facility] 5:03 AM HEALTH SYSTEM REPOSITORY TYPE CODE TESTS RESULT OUT OF REFERENCE UNITS RANGE LAB NA(LOINC) 136-145 mEq/L Sodium Blood 140 LAB K(LOINC) 3.5-5.1 mEq/L Potassium Blood 4.7 LAB CL(LOINC) 98-107 mEq/L Chloride High Blood 109 LAB CO2(LOINC) 21-32 mEq/L CO2 Blood 23 LAB GLU(LOINC) 70-99 mg/dL Glucose High Blood 143 LAB BUN(LOINC) 7-18 mg/dL BUN High Blood 19 LAB CREA(LOINC 0.67-1.17 mg/dL ) Creatinine Blood 0.78 LAB CA(LOINC) 8.5-10.1 mg/dL Low Calcium Blood 8.2 LAB ANGAP(LOIN 8-16 C) Anion Gap 13 Performed By: #### P8 #### [place] [address] MDRD GFR Collected: 02/14/2018 Status: F Source: [facility] 5:03 AM HEALTH SYSTEM REPOSITORY TYPE CODE TESTS RESULT OUT OF RANGE REFERENCE UNITS LAB GFRFN(LOINC >60mL/min/1.73m ) 2 eGFR >60 Result Comment: If the patient is , multiply the result by 1.210. Performed By: #### GFR #### [place] [address] GLUCOSE METER Collected: 02/13/2018 Status: F Source: [facility] 11:49 PM HEALTH SYSTEM REPOSITORY TYPE CODE TESTS RESULT OUT OF REFERENCE UNITS RANGE LAB GLUBL(LOINC 70-99 mg/dL ) High Glucose Meter 134 Result Comment: RN NOTIFIED Performed By: #### GLMET #### [place] [address] GLUCOSE METER Collected: 02/13/2018 Status: F Source: [facility] 9:46 PM HEALTH SYSTEM REPOSITORY TYPE CODE TESTS RESULT OUT OF REFERENCE UNITS RANGE LAB GLUBL(LOINC 70-99 mg/dL ) High Glucose Meter 106 Result Comment: RN NOTIFIED Performed By: #### GLMET #### [place] [address] PROGRESS Observed: 02/13/2018 Status: COMPLETED Source: [place] 8:24 PM CLINIC OTHER CAMPUS REPOSITORY O ID: [id number] Author: Paulette (Rn) RAINA Garibay Service: Critical Care Author Type: Registered Nurse Type: Progress Notes Filed: 02/13/2018 8:25 PM Note Text: HR 150-182. Dr. Aguilar paged to bedside. See new orders. GLUCOSE METER Collected: 02/13/2018 Status: F Source: [facility] 8:19 PM HEALTH SYSTEM REPOSITORY TYPE CODE TESTS RESULT OUT OF REFERENCE UNITS RANGE LAB GLUBL(LOINC 70-99 mg/dL ) High Glucose Meter 104 Result Comment: RN NOTIFIED Performed By: #### GLMET #### [place] [address] PROGRESS Observed: 02/13/2018 Status: COMPLETED Source: [place] 7:46 PM CLINIC OTHER CAMPUS REPOSITORY HNO ID: [id number] Author: Paulette Aguilar Service: Critical Care Author Type: Physician Type: Progress Notes Filed: 02/13/2018 8:23 PM Note Text: MICU - PROGRESS NOTE SERVICE DATE: 02/13/2018 SERVICE TIME: 7:46 PM Admission Date: 02/07/2018 AGE: [age] year old LOS: 6 days REASON FOR ICU ADMISSION: Acute respiratory failure, AFib RVR, HCAP Subjective HPI/Interval history: Called to bedside for AFib w/ RVR 140s- 170s; EKG confirmed. SBP>100, gave lopressor 5mg IV at bedside, RVR 110-120s Tachypnic on vent 27-21; + autopeep Was diuresed earlier today ~1.5L neg in about 4 hours Propofol on hold, on precedex Stat ABG No past medical history on file. PAST SURGICAL HISTORY Procedure Laterality Date - ORTHOPEDICS SURGERY HX - REPAIR ING HERNIA,5+Y/O,REDUCIBL 1990 Hernia repair, inguinal,left Social History Marital status: Single Spouse name: Years of education: Number of children: Social History Main Topics Smoking status: Current Every Day Smoker Packs/day: 2.00 Years: 25.00 Types: Cigarettes Alcohol use: No Drug use: No Sexual activity: Yes Partners with: Female Other Topics Concern Service No Blood Transfusions No Caffeine Concern No Occupational Exposure No Hobby Hazards No Sleep Concern No Stress Concern No Weight Concern No Special Diet No Back Care No Exercise No Bike Helmet No Seat Belt No Self-Exams No Objective VITAL SIGNS (last 24hrs min/max): Temp Av.3 ?C (99.1 ?F) Min: 36.5 ?C (97.7 ?F) Max: 37.8 ?C (100 ?F) Pulse Av.8 Min: 69 Max: 83 Arterial BP 1 Min: 85/37 Max: 142/63 Cuff No Data Recorded Pain Score: 0/10 Vital signs reviewed. BP 116/67 Pulse 79 Temp (Src) 99 (Core) Resp 23 Ht 5' 10.984 (1.80m) Wt 248 lb 3.8 oz (112.6kg) SpO2 94% BMI 34.64 kg/(m2). Temp (24hrs), Av.3 ?C (99.1 ?F), Min:36.5 ?C (97.7 ?F), Max:37.8 ?C (100 ?F) NET FLUID BALANCE Intake/Output Summary (Last 24 hours) at 02/13/181945 Last data filed at 02/13/18 1851 Gross per 24 hour Intake 3500.2 ml Output 2534 ml Net 966.2 ml MEDICATIONS Current Facility-Administered Medications: bisacodyl 10 mg suppository (DULCOLAX) 10 mg RECTAL DAILY PRN polyethylene glycol 3350 17 g packet (MIRALAX, GLYCOLAX) 17 g ORAL DAILY senna-docusate 8.6-50 mg 1 tablet (SENNA-S) 1 tablet ORAL BID metoprolol tartrate (short acting) 12.5 mg tab(s) (LOPRESSOR) 12.5 mg ORAL q 8 H metoclopramide HCl 10 mg injection (REGLAN) 10 mg INTRAVENOUS q 8 H PRN metoprolol 5 mg injection (LOPRESSOR) 5 mg INTRAVENOUS ONCE methylPREDNISolone sod succinate(PF) 60 mg injection (Solu- MEDROL) 60 mg INTRAVENOUS q 12 H piperacillin-tazobactam 3.375 g in dextrose (iso-osmotic) 50 mL (ZOSYN) 3.375 g INTRAVENOUS q 6 H pill splitter (patient-specific) 1 Each Miscell. (Med.Supl.;Non- Drugs) PRN enoxaparin 40 mg injection (LOVENOX) 40 mg SUBCUTANEOUS q 24 HR Chlorhexidine Gluconate 0.12 % 15 mL (PERIDEX) 15 mL ORAL q 12 H budesonide 0.5 mg/2 mL 1 mg (PULMICORT) 1 mg INHALATION BID amiodarone 360 mg in D5W 200 mL (NEXTERONE) 0.5-1 mg/min INTRAVENOUS CONTINUOUS acetaminophen 650 mg tab(s) (TYLENOL) 650 mg ORAL q 6 H PRN aspirin 81 mg chewable tab(s) 81 mg ORAL DAILY insulin regular iv infusion 250 units in NaCl 0.9% 250 mL - AK CARD SURG NOMOGRAM 0-12 Units/hr INTRAVENOUS CONTINUOUS insulin regular human iv bolus 10 Units 10 Units INTRAVENOUS PRN dextrose 50% in water 25 mL syringe 12.5 g INTRAVENOUS PRN potassium chloride iv piggyback 20 mEq in sterile water 100 mL 20 mEq INTRAVENOUS PRN magnesium sulfate in water 2 g in sterile water 50 ml 2 g INTRAVENOUS PRN(NO DISPENSE) NaCl 0.9% iv infusion 50 mL/hr INTRAVENOUS CONTINUOUS albuterol 2.5 mg /3 mL (0.083 %) 2.5 mg (PROVENTIL) 2.5 mg INHALATION q 2 H PRN EPINEPHrine 4 mg in NaCl 0.9% 250 mL 0.5-10 mcg/min INTRAVENOUS CONTINUOUS niCARdipine 40 mg in NaCl 0.9% 200 mL infusion (CARDENE) 5- 10 mg/hr INTRAVENOUS CONTINUOUS calcium chloride 1 g in D5W 100 mL 1 g INTRAVENOUS PRN(NO DISPENSE) oxyCODONE-acetaminophen 5-325 mg 1-2 tablet (PERCOCET) 1-2 tablet ORAL q 4 H PRN morphine 2-4 mg injection 2-4 mg INTRAVENOUS q 1 H PRN pantoprazole 40 mg injection (PROTONIX) 40 mg INTRAVENOUS DAILY (6 AM) ondansetron (PF) 4 mg injection (ZOFRAN) 4 mg INTRAVENOUS q 6 H PRN propofol infusion (DIPRIVAN) 5-50 mcg/kg/min INTRAVENOUS CONTINUOUS ipratropium-albuterol 3 mL nebulizer solution (DUONEB) 3 mL INHALATION q 4 H PHENYLephrine 80 mg in D5W 250 mL (NEOSYNEPHRINE) 10-100 mcg/min INTRAVENOUS CONTINUOUS atorvastatin 40 mg tab(s) (LIPITOR) 40 mg ORAL AT BEDTIME 0.9% NaCl 3-5 mL 3-5 mL INTRAVENOUS q 12 H Lines, Drains, and Airways Line Peripheral 02/07/18 1600 Admission to Hospital Short Right Antecubital 6 days Peripheral 02/08/18 0100 Short Right Arm 20 Gauge 5 days Peripheral 02/08/18 0700 Short Left Forearm 5 days Arterial Line 02/09/18 0830 Arterial Line Left Radial 4 days Central Line Double Lumen 02/09/18 0845 Non-tunneled Right Neck 4 days Peripheral 02/09/18 0820 Left Forearm 16 Gauge 4 days Drain GI Feed/Drain 02/09/18 0800 Oral Gastric Midline 4 days Indwelling Urinary Catheter 02/09/18 0838 Temperature Monitoring 16 Fr 4 days Airway Airway Endotracheal Tube 02/09/18 0800 4 days Respiratory/Nursing Documentation: O2 Therapy: Ventilator (02/13/18 1800) Invasive Ventilator Mode: Pressure Regulated Volume Control (02/13/18 1400) Set Ventilator Respiratory Rate (BPM): 15 (02/13/18 1400) Total Respiratory Rate (BPM): 25 (02/13/18 1400) Tidal Volume Set (mL): 550 (02/13/18 1400) Exhaled Tidal Volume (mL): 653 (02/13/18 0920) Minute Volume (L): 17.4 (02/13/18 1334) Peak Inspiratory Pressure (cm H2O): 12 (02/13/18 1400) PEEP/CPAP (cm H2O): 5 (PEEP wean) (02/13/18 1400) PHYSICAL EXAMINATION: Intubated, tachypnea noted on vent 30s Diffuse rhonchi; coarse breath sounds Ab distended but not rigid; +BS High w/ yellow clear urine No edema DATA: All data reviewed, including, but not limited to, data noted below. All diagnostic tests, including labs/specimens, EKGs, and imaging, were personally reviewed by me. CULTURES: Resp 02/11- Klebsiella oxytoca; MRSA neg CXR FINDINGS: 02/13/18 There has been slight improvement in pulmonary edema. ?There is no visible pneumothorax or focal consolidation. ?There is no pleural effusion. ?The ETT tip is 6 7 m above the nelda. ?The NGT tip is below the left hemidiaphragm. ? Heart is not significantly enlarged and there are sternotomy wires. ?There is a stable right internal jugular introducer sheath. ? OTHER DIAGNOSTICS/ IMAGING: Impression/Recommendations Critical Care Documentation: The patient has the following organ/system impairment(s): # Acute hypoxic/hypercapnic respiratory failure 2/2 HCAP and AECOPD; less likely pulmonary edema # Klebsiella Oxytoca HCAP # Presumed underlying COPD (long-standing smoking hx) now bronchospastic w/ suspected AECOPD also in s/o noted increased space despite adequate minute ventilation # Paroxysmal Afib, now w/ RVR - may be d/t electrolytes or overdiuresis # s/p CABG POD #4 # Ventricular pause in s/o amiodarone PLAN: - Cont vent support - Need to optimize sedation to limit autopeep; if does not tolerate precedex/propofol and morphine inadequate, may need ativan vs paralytic - Continue bronchodilators w/ duonebs q4; albuterol nebs q2; stat dose now - Start IV solumedrol; ok to cont pulmicort nebs - BG control, q2hr while on steroids - Gave lopressor 5mg IV once, may need another dose (suspect poor absorption of po lopressor w/ recent ileus). 5mg IV again if BP tolerates. Stat BMP/Mg. Give LR bolus now given potential intravascular depletion from earlier diuresis; less likely pulmonary edema- sats adequate on minimal FiO2/PEEP - Afib persists, may need to consider digoxin - Replete lytes - Accurate I/Os; maintain high - Cont Zosyn - ASA/Statin - Repeat ABG - Endocrine recs appreciated. - GI prophy - DVT prophy; will d/w daytime regarding therapeutic AC in view of Afib Prognosis: Guarded Code Status: Full Patient/Family Updated:None at bedside This patient has a high probability of sudden, clinically significant deterioration, which requires the highest level of physician preparedness to intervene urgently. I managed/supervised life or organ supporting interventions that required frequent physician assessment. I devoted my full attention to the direct care of this patient for the amount of time indicated below. Time I spent with family or surrogate(s) is included only if the patient was incapable of providing the necessary information or participating in medical decision making. Time devoted to teaching and to any procedures I billed separately is not included. Discussed with staff. Time spent providing critical care services: 35 minutes, excluding procedures. SIGNATURE: Paulette Aguilar MD [facility] PAGER:[phone] DATE of SERVICE: February 13, 2018 TIME of SERVICE: 7:46 PM BLOOD GAS ARTERIAL Collected: 02/13/2018 Status: F Source: [facility] 7:45 PM HEALTH SYSTEM REPOSITORY TYPE CODE TESTS RESULT OUT OF REFERENCE UNITS RANGE LAB FIO2(LOINC % ) FIO2 40 LAB TEMPA(LOIN C) Temperature 37.6 LAB PH(LOINC) 7.350-7.450 Low pH Arterial 7.310 LAB PCO2(LOINC 36.0-46.0 mm Hg ) PCO2 High Arterial 51.4 LAB PO2(LOINC) 85.0-96.0 mm Hg Low PO2 Arterial 79.6 LAB HCO3A(LOIN 22.0-26.0 mEq/L C) HCO3- 25.1 LAB O2%A(LOINC 95.0-98.0 % ) Low O2% Sat Arterial 94.0 LAB BASEX(LOIN -2.5 to 2.5 mEq/L C) Base Excess -1.3 Performed By: #### ABG #### [place] [address] BASIC PANEL Collected: 02/13/2018 Status: F Source: [facility] REPOSITORY TYPE CODE TESTS RESULT OUT OF REFERENCE UNITS RANGE LAB NA(LOINC) 136-145 mEq/L Sodium Blood 140 LAB K(LOINC) 3.5-5.1 mEq/L Potassium Blood 3.5 LAB CL(LOINC) 98-107 mEq/L Chloride High Blood 110 LAB CO2(LOINC) 21-32 mEq/L CO2 Blood 25 LAB GLU(LOINC) 70-99 mg/dL Glucose High Blood 113 LAB BUN(LOINC) 7-18 mg/dL BUN High Blood 20 LAB CREA(LOINC 0.67-1.17 mg/dL ) Creatinine Blood 0.93 LAB CA(LOINC) 8.5-10.1 mg/dL Low Calcium Blood 8.0 LAB ANGAP(LOIN 8-16 C) Anion Gap 9 Performed By: #### P8 #### [place] [address] MAGNESIUM BLOOD Collected: 02/13/2018 Status: F Source: [facility] REPOSITORY TYPE CODE TESTS RESULT OUT OF REFERENCE UNITS RANGE LAB MAG(LOINC) 1.6-2.6 mg/dL Magnesium Blood 2.2 Performed By: #### MAG #### [place] [address] MDRD GFR Collected: 02/13/2018 Status: F Source: [address] [facility] REPOSITORY TYPE CODE TESTS RESULT OUT OF RANGE REFERENCE UNITS LAB GFRFN(LOINC >60mL/min/1.73m ) 2 eGFR >60 Result Comment: If the patient is , multiply the result by 1.210. Performed By: #### GFR #### [place] [address] PROGRESS Observed: 02/13/2018 Status: COMPLETED Source: [place] 5:59 PM CLINIC OTHER CAMPUS REPOSITORY HNO ID: [id number] Author: Juan Cabral Service: Cardiovascular Medicine Author Type: Physician Type: Progress Notes Filed: 02/13/2018 5:59 PM Note Text: Result Noted. Patient is currently hospitalized and managed by the in-patient team. Juan Cabral MD GLUCOSE METER Collected: 02/13/2018 Status: F Source: [facility] 5:51 PM HEALTH SYSTEM REPOSITORY TYPE CODE TESTS RESULT OUT OF REFERENCE UNITS RANGE LAB GLUBL(LOINC 70-99 mg/dL ) Glucose Meter 92 Result Comment: RN NOTIFIED Performed By: #### GLMET #### [facility] [address] [address] PROGRESS Observed: 02/13/2018 Status: COMPLETED Source: [place] 5:36 PM CLINIC OTHER [place] REPOSITORY HNO ID: [id number] Author: Juan Cabral Service: Cardiovascular Medicine Author Type: Physician Type: Progress Notes Filed: 02/13/2018 5:36 PM Note Text: Result Noted. Patient is currently hospitalized and managed by the in-patient team. Juan Cabral MD GLUCOSE METER Collected: 02/13/2018 Status: F Source: [facility] 4:12 PM HEALTH SYSTEM REPOSITORY TYPE CODE TESTS RESULT OUT OF REFERENCE UNITS RANGE LAB GLUBL(LOINC 70-99 mg/dL ) High Glucose Meter 105 Result Comment: RN NOTIFIED Performed By: #### GLMET #### [place] [address] GLUCOSE METER Collected: 02/13/2018 Status: F Source: [facility] 2:16 PM HEALTH SYSTEM REPOSITORY TYPE CODE TESTS RESULT OUT OF REFERENCE UNITS RANGE LAB GLUBL(LOINC 70-99 mg/dL ) High Glucose Meter 118 Result Comment: RN NOTIFIED Performed By: #### GLMET #### [place] [address] PROGRESS Observed: 02/13/2018 Status: COMPLETED Source: [place] 1:22 PM [facility] OTHER [place] REPOSITORY HNO ID: [id number] Author: Keon Chance Service: Pulmonary Disease Author Type: Physician Type: Progress Notes Filed: 02/13/2018 1:33 PM Note Text: CRITICAL CARE PROGRESS NOTE SERVICE DATE: February 13, 2018 SERVICE TIME: 1:22 PM Admission Date: 02/07/2018 AGE: [age] year old LOS: 6 days REASON FOR ICU ADMISSION: ACTIVE PROBLEM LIST Inguinal Hernia Without Mention of Obstruction Or Gangrene, Unilateral Or Unspecified, (Not Specified As Recurrent) Nstemi (Non-St Elevated Myocardial Infarction) ([facility]) Nsvt (Nonsustained Ventricular Tachycardia) ([facility]) Nicotine use disorder, F17.2 Subjective OVERNIGHT EVENTS: Patient is resting comfortably in bed while sedated and intubated/on the ventilator without any current distress. Objective VITAL SIGNS (last 24hrs min/max): Temp Av.4 ?C (99.3 ?F) Min: 36.5 ?C (97.7 ?F) Max: 37.8 ?C (100 ?F) Pulse Av.3 Min: 69 Max: 97 Cuff No Data Recorded Pain Score: 0/10 24 hour Intake AND Output: Intake/Output Summary (Last 24 hours) at 02/13/18 1322 Last data filed at 02/13/18 1300 Gross per 24 hour Intake 2541 ml Output 2352 ml Net 189 ml PHYSICAL EXAM: RRR Few scattered crackles bilaterally without wheezing bilaterally anteriorly. Few bowel sounds, soft, nontender, nondistended. No pedal edema bilaterally. Poor turgor, but dry, intact skin. VENTILATOR INFORMATION: WEANING DATA: Settings: Invasive Ventilator Mode: Pressure Regulated Volume Control (02/13/18 0920) %FIO2: 30 Set Ventilator Respiratory Rate (BPM): 16 Tidal Volume Set (mL): 550 PEEP/CPAP (cm H2O): 10 Patient Data: Inspiratory:Expiratory Ratio: 1 : 1.1 Peak Inspiratory Pressure (cm H2O): 16 Weaning Data: Spontaneous Respiratory Rate (BPM): 0 INPATIENT MEDICATIONS: Current hospital medications: bisacodyl 10 mg suppository (DULCOLAX) 10 mg RECTAL DAILY PRN polyethylene glycol 3350 17 g packet (MIRALAX, GLYCOLAX) 17 g ORAL DAILY senna-docusate 8.6-50 mg 1 tablet (SENNA-S) 1 tablet ORAL BID piperacillin-tazobactam 3.375 g in dextrose (iso-osmotic) 50 mL (ZOSYN) 3.375 g INTRAVENOUS q 6 H metoprolol tartrate (short acting) 12.5 mg tab(s) (LOPRESSOR) 12.5 mg ORAL q 12 H pill splitter (patient-specific) 1 Each Miscell. (Med.Supl.;Non- Drugs) PRN enoxaparin 40 mg injection (LOVENOX) 40 mg SUBCUTANEOUS q 24 HR Chlorhexidine Gluconate 0.12 % 15 mL (PERIDEX) 15 mL ORAL q 12 H budesonide 0.5 mg/2 mL 1 mg (PULMICORT) 1 mg INHALATION BID amiodarone 360 mg in D5W 200 mL (NEXTERONE) 0.5-1 mg/min INTRAVENOUS CONTINUOUS acetaminophen 650 mg tab(s) (TYLENOL) 650 mg ORAL q 6 H PRN aspirin 81 mg chewable tab(s) 81 mg ORAL DAILY insulin regular iv infusion 250 units in NaCl 0.9% 250 mL - AK CARD SURG NOMOGRAM 0-12 Units/hr INTRAVENOUS CONTINUOUS insulin regular human iv bolus 10 Units 10 Units INTRAVENOUS PRN dextrose 50% in water 25 mL syringe 12.5 g INTRAVENOUS PRN potassium chloride iv piggyback 20 mEq in sterile water 100 mL 20 mEq INTRAVENOUS PRN magnesium sulfate in water 2 g in sterile water 50 ml 2 g INTRAVENOUS PRN(NO DISPENSE) NaCl 0.9% iv infusion 50 mL/hr INTRAVENOUS CONTINUOUS albuterol 2.5 mg /3 mL (0.083 %) 2.5 mg (PROVENTIL) 2.5 mg INHALATION q 2 H PRN EPINEPHrine 4 mg in NaCl 0.9% 250 mL 0.5-10 mcg/min INTRAVENOUS CONTINUOUS niCARdipine 40 mg in NaCl 0.9% 200 mL infusion (CARDENE) 5- 10 mg/hr INTRAVENOUS CONTINUOUS calcium chloride 1 g in D5W 100 mL 1 g INTRAVENOUS PRN(NO DISPENSE) oxyCODONE-acetaminophen 5-325 mg 1-2 tablet (PERCOCET) 1-2 tablet ORAL q 4 H PRN morphine 2-4 mg injection 2-4 mg INTRAVENOUS q 1 H PRN pantoprazole 40 mg injection (PROTONIX) 40 mg INTRAVENOUS DAILY (6 AM) ondansetron (PF) 4 mg injection (ZOFRAN) 4 mg INTRAVENOUS q 6 H PRN propofol infusion (DIPRIVAN) 5-50 mcg/kg/min INTRAVENOUS CONTINUOUS ipratropium-albuterol 3 mL nebulizer solution (DUONEB) 3 mL INHALATION q 4 H PHENYLephrine 80 mg in D5W 250 mL (NEOSYNEPHRINE) 10-100 mcg/min INTRAVENOUS CONTINUOUS atorvastatin 40 mg tab(s) (LIPITOR) 40 mg ORAL AT BEDTIME 0.9% NaCl 3-5 mL 3-5 mL INTRAVENOUS q 12 H DATA: BLOOD GAS: Recent Labs 02/10/18 0819 02/10/18 0547 02/09/18 2015 02/09/18 1738 02/09/18 1400 02/09/18 1252 02/09/18 1217 02/09/18 1144 RESPHCO3 23.3 23.0 21.3* 20.8* 23.6 -- -- -- PH 7.392 7.385 7.267* 7.261* 7.193* 7.236* 7.372 7.415 PCO2 39.3 39.4 48.2* 47.4* 62.0* -- -- -- [id number] 96.1 93.6* 95.2 97.6 96.2 -- -- -- CBC: Recent Labs 02/13/18 0450 02/12/18 0501 02/11/18 0420 02/10/18 1455 02/10/18 0545 02/09/18 1405 02/09/18 1252 02/09/18 1217 02/09/18 0407 02/08/18 0500 WBC 7.83 11.10* 15.13* 14.16* 14.31* 22.43* -- -- -- 8.26 11.59* HB 10.0* 10.2* 10.9* 10.1* 10.9* 13.1* -- -- -- 14.3 14.5 HCT 30.3* 30.5* 33.3* 31.0* 32.6* 38.7* 29* 30* < > 42.8 42.8 PLT 105* 96* 105* 107* 112* 157 -- -- -- 187 222 MCV 98.1* 96.5* 98.8* 99.7* 96.4* 97.7* -- -- -- 96.2* 95.1 < > = values in this interval not displayed. COAG: Recent Labs 02/10/18 0545 02/09/18 1405 02/09/18 0123 02/08/18 1730 02/08/18 0700 02/08/18 0105 02/07/18 2243 02/07/18 1525 APTT -- 23.0 43.7* 25.8 28.5 28.3 -- -- INR 1.23 1.24 -- -- -- 1.05 1.10 1.10 BMP: Recent Labs 02/13/18 0450 02/12/18 0501 02/11/18 0420 02/10/18 1455 02/10/18 0545 02/09/18201402/09/18 1405 02/09/18 1252 02/09/18 0407 GLUC 107* 109* 104* 97 95 135* 161* -- -- 96 NA 140 141 142 143 144 143 142 144 < > 139 K 3.7 3.9 4.3 4.0 3.9 3.9 4.3 4.0 < > 3.9 CHLOR 110* 113* 112* 113* 113* 113* 113* -- -- 108* CO2 23 25 25 26 25 23 25 -- -- 26 ANION 11 7* 9 8 10 11 8 -- -- 9 BUN 21* 29* 25* 17 14 15 12 -- -- 12 CREAT 0.86 1.19* 1.34* 1.01 0.93 1.01 0.96 -- -- 0.90 < > = values in this interval not displayed. CHEM: Recent Labs 02/13/18 0450 02/12/18 0501 02/11/18 0420 02/10/18 1455 02/10/18 0545 02/09/18201402/09/18 1405 02/09/18 0407 02/07/18 2243 02/07/18 1525 ALB -- -- -- -- -- -- 2.5* -- -- -- 3.0* TPROT -- -- -- -- -- -- 5.2* -- -- -- 7.5 CA 8.0* 8.2* 8.3* 8.1* 7.7* 7.8* 7.9* 8.7 < > -- 8.8 MG -- -- 2.6 2.5 2.3 1.9 1.8 -- -- 2.3 -- ICAL -- -- -- 4.73 -- 4.64 -- -- -- -- -- < > = values in this interval not displayed. HEPATIC: Recent Labs 02/09/18 14002/07/18 1525 ALKPHOS 64 104 ALT 30 27 AST 88* 23 TBILI 0.6 0.4 LIPASE -- 158 URINALYSIS: Recent Labs 02/10/18 0819 02/10/18 0547 02/09/18201402/09/18 1738 02/09/18 1400 02/09/18 1252 02/09/18 1217 02/09/18 1144 PH 7.392 7.385 7.267* 7.261* 7.193* 7.236* 7.372 7.415 Assessment/Plan ASSESSMENT: ACTIVE PROBLEM LIST Inguinal Hernia Without Mention of Obstruction Or Gangrene, Unilateral Or Unspecified, (Not Specified As Recurrent) Nstemi (Non-St Elevated Myocardial Infarction) ([facility]) Nsvt (Nonsustained Ventricular Tachycardia) ([facility]) Nicotine use disorder, F17.2 S/P CABG, POD #4 HCAP Acute exacerbation of COPD PLAN: Continue full ventilator support. Continue bronchodilators. Finish antibiotic course and de-escalate by discontinuing vancomycin. Patient has no need for steroids at this time as the patient has no active bronchospasm currently. Will avoid steroids as much as possible given the post-operative state. Hemodynamically stable off pressors. Continue chest tube management as per Cardiovascular/Thoracic Surgery. Continue diabetes mellitus treatment as per the post-cardiac surgery protocol. This patient has a high probability of sudden, clinically significant deterioration, which requires the highest level of physician preparedness to intervene urgently. I managed/supervised life or organ supporting interventions that required frequent physician assessment. I devoted my full attention to the direct care of this patient for the amount of time indicated below. Time I spent with family or surrogate(s) is included only if the patient was incapable of providing the necessary information or participating in medical decision making. Time devoted to teaching and to any procedures I billed separately is not included. Patient/Family Updated: Patient's sister was updated regarding the goals of care, medical plan for the day, field service consultant recommendations, medical disposition and current medical condition/prognosis as and if clinically indicated. All questions and concerns were answered and addressed at this juncture. They were notified on February 13, 2018 at 10:15. The duration of the conversation was fifteen minutes. PROGNOSIS: Fair Code status: Full Code. Discussed with Registered RN. Critical Care Documentation: The patient has the following organ/system impairment(s): Respiratory failure (Acute, with Hypoxemia) and coronary artery disease Time spent providing critical care services: 40 minutes. SIGNATURE: Keon Chance MD [facility] PAGER:[phone] DATE of SERVICE: February 13, 2018 TIME of SERVICE: 1:22 PM PROGRESS Observed: 02/13/2018 Status: COMPLETED Source: [place] 11:53 AM [facility] OTHER CAMPUS REPOSITORY HNO ID: [id number] Author: Juan Cabral Service: Cardiovascular Medicine Author Type: Physician Type: Progress Notes Filed: 02/13/2018 11:53 AM Note Text: Result Noted. Patient is currently hospitalized and managed by the in-patient team. Juan Cabral MD PROGRESS Observed: 02/13/2018 Status: COMPLETED Source: [place] 11:39 AM [facility] OTHER [place] REPOSITORY HNO ID: [id number] Author: Misti Stein (Pa) Service: Cardiac Surgery Author Type: Physician Tool Inspector Type: Progress Notes Filed: 02/13/2018 3:11 PM Note Text: CARDIOTHORACIC SURGERY POSTOP PROGRESS NOTE SERVICE DATE: 02/13/2018 SERVICE TIME: 11:39 AM Subjective S/P SURGERY: Procedure(s) (LRB): BYPASS GRAFT ARTERY CORONARY ON-PUMP THREE CORONARY VENOUS GRAFTS (N/A) DATE OF SURGERY: 02/09/2018 POSTOP DAY #4 LOS: 6 INTERVAL EVENTS / PERTINENT ROS: Patient still sedated and on vent. Pulmonary/critical care to adjust vent settings to FiO2 of 30 and PEEP of 5. Per orders in chart, it appears the patient went into Afib/RVR on Tuesday night, amiodarone therapy was initiated, then Per nurse, patient experienced brief episodes of asystole, amiodarone was discontinued. The last episode was Tuesday02/11/2018. Rate/rhythm seems to be controlled with BB therapy. Objective Admission Weight: 104.3 kg (229 lb 15 oz) BP 116/67 Pulse 75 Temp 36.5 ?C (97.7 ?F) Resp 21 Ht 180.3 cm (5' 10.98) Wt 112.6 kg (248 lb 3.8 oz) SpO2 93% BMI 34.64 kg/m2 Body surface area is 2.37 meters squared. Min/Max/Average Temperature AND Blood Pressure: Temp (24hrs), Av.4 ?C (99.3 ?F), Min:36.5 ?C (97.7 ?F), Max:37.8 ?C (100 ?F) No data recorded. No data recorded. Intake/Output Summary (Last 24 hours) at 02/13/18 1139 Last data filed at 02/13/18 1100 Gross per 24 hour Intake 2491 ml Output 1194 ml Net 1297 ml TELEMETRY: normal sinus rhythm PHYSICAL EXAM: General Appearance: well developed, obese and sedated and on vent Skin: No rash on chest, arms or legs. Warm, dry. Midsternal AND SVG incision dry AND intact, without redness, drainage or edema. Lungs: course breath sounds b/l Heart: regular rhythm and pacing wires present Abdomen: soft, mildly distended, no bowel sounds appreciated Neurologic/Psychiatric: sedated Extremities: edema: 1+ Lines, Drains, and Airways Line Peripheral 02/07/18 1600 Admission to Hospital Short Right Antecubital 5 days Peripheral 02/08/18 0100 Short Right Arm 20 Gauge 5 days Peripheral 02/08/18 0700 Short Left Forearm 5 days Arterial Line 02/09/18 0830 Arterial Line Left Radial 4 days Central Line Double Lumen 02/09/18 0845 Non-tunneled Right Neck 4 days Peripheral 02/09/18 0820 Left Forearm 16 Gauge 4 days Drain GI Feed/Drain 02/09/18 0800 Oral Gastric Midline 4 days Indwelling Urinary Catheter 02/09/18 0838 Temperature Monitoring 16 Fr 4 days Airway Airway Endotracheal Tube 02/09/18 0800 4 days DATA: Diagnostic tests reviewed for today's visit: Chest X-RAY: Improving pulmonary edema Recent Labs 02/13/18 0450 02/12/18 0501 02/11/18 0420 02/10/18 1455 RBC 3.09* 3.16* 3.37* 3.11* WBC 7.83 11.10* 15.13* 14.16* HB 10.0* 10.2* 10.9* 10.1* HCT 30.3* 30.5* 33.3* 31.0* PLT 105* 96* 105* 107* NA 140 141 142 143 K 3.7 3.9 4.3 4.0 CHLOR 110* 113* 112* 113* CO2 23 25 25 26 BUN 21* 29* 25* 17 CREAT 0.86 1.19* 1.34* 1.01 GLUC 107* 109* 104* 97 ICAL -- -- -- 4.73 CA 8.0* 8.2* 8.3* 8.1* MG -- -- 2.6 2.5 P -- -- 3.6 2.6 ANION 11 7* 9 8 Assessment/Plan Acute NSTEMI s/p CABG x 3 -POD#4 -c/w ASA, statin, increase BB to 12.5 q 8 -Post thorax vest -start bowel regimen -initiate plavix tomorrow or after epicardial wires removed -continue to mobilize ?? Anticipated acute pulmonary insufficiency s/p CTS 2/2 underlying COPD AND atelectasis -Vent management per pulmonary service Thrombocytopenia -Stable. Continue to monitor Volume Overload -20 IV lasix ?? Respiratory acidosis -Resolved Tests/Labs Ordered: 1. BMP 2. CBC SIGNATURE: Misti Stein PA-C PATIENT NAME: Jeffrey Chaudhari Indoe DATE: February 13, 2018 TIME: 11:39 AM PAGER/CONTACT #:[phone] ETX [id number] GLUCOSE METER Collected: 02/13/2018 Status: F Source: [facility] 11:16 AM HEALTH SYSTEM REPOSITORY TYPE CODE TESTS RESULT OUT OF REFERENCE UNITS RANGE LAB GLUBL(LOINC 70-99 mg/dL ) High Glucose Meter 119 Result Comment: RN NOTIFIED Performed By: #### GLMET #### [place] [address] THERAPY NT Observed: 02/13/2018 Status: COMPLETED Source: [place] 11:13 AM CLINIC OTHER CAMPUS REPOSITORY HNO ID: [id number] Author: Lexy Pintor/Miriam Garcia Service: Occupational Therapy Author Type: Occupational Therapist Type: Therapy (PT/OT/Speech/Resp) Filed: 02/13/2018 11:14 AM Note Text: OCCUPATIONAL THERAPY MISSED VISIT SERVICE DATE: 02/13/2018 SERVICE TIME: 1113 to 1114 ROOM: [place] [address] Attempted Evaluation. Patient not seen due to (intubated). Will continue to follow as able and appropriate. SIGNATURE: HEATHER Matos/Fara PATIENT NAME: Jeffrey Chaudhari Indoe DATE: February 13, 2018 TIME: 11:13 AM PAGER/CONTACT #: [phone] THERAPY NT Observed: 02/13/2018 Status: COMPLETED Source: [place] 9:52 AM [facility] REPOSITORY HNO ID: [id number] Author: Ursula MoodyPt) Jay Jay Service: Physical Therapy Author Type: Physical Therapist Type: Therapy (PT/OT/Speech/Resp) Filed: 02/13/2018 9:53 AM Note Text: PHYSICAL THERAPY MISSED VISIT SERVICE DATE: 02/13/2018 SERVICE TIME: 09 to 951 ROOM: [place] [address] Attempted Evaluation. Patient not seen due to Not following commands (Intubated at this time). SIGNATURE: Ursula Goyal PT PATIENT NAME: Jeffrey Cullen DATE: February 13, 2018 TIME: 9:53 AM PAGER/CONTACT #: GLUCOSE METER Collected: 02/13/2018 Status: F Source: [facility] 9:47 AM HEALTH SYSTEM REPOSITORY TYPE CODE TESTS RESULT OUT OF REFERENCE UNITS RANGE LAB GLUBL(LOINC 70-99 mg/dL ) Glucose Meter 98 Result Comment: RN NOTIFIED Performed By: #### GLMET #### [place] [address] CASE MANAGEM Observed: 02/13/2018 Status: COMPLETED Source: [place] 9:31 AM [facility] REPOSITORY HNO ID: [id number] Author: Ale MoodyRn) RAINA Key Service: (none) Author Type: Registered Nurse Type: Care Mgt Progress Note Filed: 02/13/2018 9:33 AM Note Text: CARE MANAGEMENT PROGRESS NOTE SERVICE DATE: 02/13/2018 SERVICE TIME: 9:32 AM LOS: 6 days Needs Prior to Discharge: OT/PT Evaluation;Discharge Transportation;Accepting Facility Pt still intubated. Spoke with sister Trev (here from [place] till Tuesday--but considering extending if pt still on ventilator) Emotional support given. Will follow once extubated and will need evals for anticipated [facility] pending loc needs SIGNATURE: Ale Key RN PATIENT NAME: Jeffrey Cullen DATE: February 13, 2018 TIME: 9:32 AM PAGER/CONTACT #: [phone] PROGRESS Observed: 02/13/2018 Status: COMPLETED Source: [place] 9:07 AM [facility] REPOSITORY HNO ID: [id number] Author: Juan Cabral Service: Cardiovascular Medicine Author Type: Physician Type: Progress Notes Filed: 02/13/2018 9:07 AM Note Text: Result Noted. Patient is currently hospitalized and managed by the in-patient team. Juan Cabral MD GLUCOSE METER Collected: 02/13/2018 Status: F Source: [facility] 7:47 AM HEALTH SYSTEM REPOSITORY TYPE CODE TESTS RESULT OUT OF REFERENCE UNITS RANGE LAB GLUBL(LOINC 70-99 mg/dL ) High Glucose Meter 110 Result Comment: RN NOTIFIED Performed By: #### GLMET #### [facility] [address] [address] PROGRESS Observed: 02/13/2018 Status: COMPLETED Source: [place] 6:42 AM CLINIC OTHER CAMPUS REPOSITORY HNO ID: [id number] Author: Juan Cabral Service: Cardiovascular Medicine Author Type: Physician Type: Progress Notes Filed: 02/13/2018 6:42 AM Note Text: Result Noted. Patient is currently hospitalized and managed by the in-patient team. Juan Cabral MD CHEST 1 VIEW Observed: 02/13/2018 Status: F Source: [facility] 6:14 AM HEALTH SYSTEM REPOSITORY Performed at [facility] APPROVED BY: Ismael Marin MD EXAM TITLE: CHEST 1 VIEW DATE: 02/13/2018 05:19 INDICATION: Dyspnea. Status post coronary bypass graft surgery COMPARISON: 02/12/2018 FINDINGS: There has been slight improvement in pulmonary edema. There is no visible pneumothorax or focal consolidation. There is no pleural effusion. The ETT tip is 6 7 m above the nelda. The NGT tip is below the left hemidiaphragm. Heart is not significantly enlarged and there are sternotomy wires. There is a stable right internal jugular introducer sheath. IMPRESSION: Improving pulmonary edema. GLUCOSE METER Collected: 02/13/2018 Status: F Source: [facility] 6:12 AM HEALTH SYSTEM REPOSITORY TYPE CODE TESTS RESULT OUT OF REFERENCE UNITS RANGE LAB GLUBL(LOINC 70-99 mg/dL ) High Glucose Meter 102 Result Comment: RN NOTIFIED Performed By: #### GLMET #### [facility] [address] [place] [address] HEMOGRAM Collected: 02/13/2018 Status: F Source: [facility] 4:50 AM HEALTH SYSTEM REPOSITORY TYPE CODE TESTS RESULT OUT OF REFERENCE UNITS RANGE LAB WBC(LOINC) 4.23-9.07 thou/cmm WBC 7.83 LAB RBC(LOINC) 4.63-6.08 mil/cmm Low RBC 3.09 LAB HGB(LOINC) 13.7-17.5 g/dL Low Hgb 10.0 LAB HCT(LOINC) 40.1-51.0 % Low Hct 30.3 LAB MCV(LOINC) 83.2-95.6 fl High MCV 98.1 LAB MCH(LOINC) 25.7-32.2 pg High MCH 32.4 LAB MCHC(LOINC) 32.3-36.5 % MCHC 33.0 LAB RDW(LOINC) 11.6-14.4 % RDW 13.2 LAB RDWSD(LOINC 36.1-45.8 fl ) High RDW SD 47.1 LAB PLT(LOINC) 141-365 thou/cmm Low Platelet 105 LAB MPV(LOINC) 8.7-12.0 fl MPV 10.1 Performed By: #### CBC1 #### [place] [address] BASIC PANEL Collected: 02/13/2018 Status: F Source: [facility] 4:50 AM HEALTH SYSTEM REPOSITORY TYPE CODE TESTS RESULT OUT OF REFERENCE UNITS RANGE LAB NA(LOINC) 136-145 mEq/L Sodium Blood 140 LAB K(LOINC) 3.5-5.1 mEq/L Potassium Blood 3.7 LAB CL(LOINC) 98-107 mEq/L Chloride High Blood 110 LAB CO2(LOINC) 21-32 mEq/L CO2 Blood 23 LAB GLU(LOINC) 70-99 mg/dL Glucose High Blood 107 LAB BUN(LOINC) 7-18 mg/dL BUN High Blood 21 LAB CREA(LOINC 0.67-1.17 mg/dL ) Creatinine Blood 0.86 LAB CA(LOINC) 8.5-10.1 mg/dL Low Calcium Blood 8.0 LAB ANGAP(LOIN 8-16 C) Anion Gap 11 Performed By: #### P8 #### [address] [address] MDRD GFR Collected: 02/13/2018 Status: F Source: [facility] 4:50 AM HEALTH SYSTEM REPOSITORY TYPE CODE TESTS RESULT OUT OF RANGE REFERENCE UNITS LAB GFRFN(LOINC >60mL/min/1.73m ) 2 eGFR >60 Result Comment: If the patient is , multiply the result by 1.210. Performed By: #### GFR #### [facility] [address] [place], [place] [address] GLUCOSE METER Collected: 02/13/2018 Status: F Source: [facility] 3:59 AM HEALTH SYSTEM REPOSITORY TYPE CODE TESTS RESULT OUT OF REFERENCE UNITS RANGE LAB GLUBL(LOINC 70-99 mg/dL ) High Glucose Meter 105 Result Comment: RN NOTIFIED Performed By: #### GLMET #### [facility] [address] [place] [address] GLUCOSE METER Collected: 02/13/2018 Status: F Source: [facility] 1:53 AM HEALTH SYSTEM REPOSITORY TYPE CODE TESTS RESULT OUT OF REFERENCE UNITS RANGE LAB GLUBL(LOINC 70-99 mg/dL ) High Glucose Meter 107 Performed By: #### GLMET #### [facility] [address] [place] [address] GLUCOSE METER Collected: 02/12/2018 Status: F Source: [facility] 11:53 PM HEALTH SYSTEM REPOSITORY TYPE CODE TESTS RESULT OUT OF REFERENCE UNITS RANGE LAB GLUBL(LOINC 70-99 mg/dL ) High Glucose Meter 103 Result Comment: RN NOTIFIED Performed By: #### GLMET #### [facility] [address] [place] [address] GLUCOSE METER Collected: 02/12/2018 Status: F Source: [facility] 9:28 PM HEALTH SYSTEM REPOSITORY TYPE CODE TESTS RESULT OUT OF REFERENCE UNITS RANGE LAB GLUBL(LOINC 70-99 mg/dL ) High Glucose Meter 105 Result Comment: RN NOTIFIED Performed By: #### GLMET #### [facility] [address] [place] [address] GLUCOSE METER Collected: 02/12/2018 Status: F Source: [facility] 8:28 PM HEALTH SYSTEM REPOSITORY TYPE CODE TESTS RESULT OUT OF REFERENCE UNITS RANGE LAB GLUBL(LOINC 70-99 mg/dL ) High Glucose Meter 102 Result Comment: RN NOTIFIED Performed By: #### GLMET #### [facility] [address] [place] [address] GLUCOSE METER Collected: 02/12/2018 Status: F Source: [facility] 6:01 PM HEALTH SYSTEM REPOSITORY TYPE CODE TESTS RESULT OUT OF REFERENCE UNITS RANGE LAB GLUBL(LOINC 70-99 mg/dL ) Glucose Meter 95 Performed By: #### GLMET #### [facility] [address] [place], [place] [address] GLUCOSE METER Collected: 02/12/2018 Status: F Source: [facility] 3:42 PM HEALTH SYSTEM REPOSITORY TYPE CODE TESTS RESULT OUT OF REFERENCE UNITS RANGE LAB GLUBL(LOINC 70-99 mg/dL ) Glucose Meter 97 Result Comment: RN NOTIFIED Performed By: #### GLMET #### [facility] [address] [place], [place] [address] PROGRESS Observed: 02/12/2018 Status: COMPLETED Source: [place] 3:10 PM CLINIC OTHER CAMPUS REPOSITORY O ID: [id number] Author: Elkin Zuleta Service: Critical Care Author Type: Physician Type: Progress Notes Filed: 02/12/2018 3:50 PM Note Text: MICU - PROGRESS NOTE SERVICE DATE: 02/12/2018 SERVICE TIME: 3:22 PM Admission Date: 02/07/2018 AGE: [age] year old LOS: 5 days Subjective REASON FOR ICU ADMISSION: Atelectasis, Confusion and Delirium, COPD, Pneumonia and Sepsis Becomes very combative and restless when examined or spoken to even on 25mcg/kg/min Diprivan. Secretions copious and thick stern reported. Objective VITAL SIGNS (last 24hrs min/max): Tmax 101.5 Temp Av.6 ?C (99.7 ?F) Min: 37.1 ?C (98.8 ?F) Max: 38.4 ?C (101.1 ?F) Pulse Av.3 Min: 78 Max: 100 Arterial BP 1 Min: 96/50 Max: 154/73 Cuff No Data Recorded Pain Score: 0/10 Vital signs reviewed. BP 116/67 Pulse 81 Temp (Src) 99.5 (Core) Resp 16 Ht 5' 10.984 (1.80m) Wt 246 lb 14.6 oz (112.0kg) SpO2 97% BMI 34.45 kg/(m2). Temp (24hrs), Av.6 ?C (99.7 ?F), Min:37.1 ?C (98.8 ?F), Max:38.4 ?C (101.1 ?F) NET FLUID BALANCE Intake/Output Summary (Last 24 hours) at 02/12/18 1522 Last data filed at 02/12/18 1400 Gross per 24 hour Intake 2466 ml Output 1031 ml Net 1435 ml MEDICATIONS Current Facility-Administered Medications: piperacillin-tazobactam 3.375 g in dextrose (iso-osmotic) 50 mL (ZOSYN) 3.375 g INTRAVENOUS q 6 H vancomycin iv piggyback 1 g in D5W 200 mL (VANCOCIN) 1 g INTRAVENOUS q 12 HR metoprolol tartrate (short acting) 12.5 mg tab(s) (LOPRESSOR) 12.5 mg ORAL q 12 H pill splitter (patient-specific) 1 Each Miscell. (Med.Supl.;Non- Drugs) PRN enoxaparin 40 mg injection (LOVENOX) 40 mg SUBCUTANEOUS q 24 HR Chlorhexidine Gluconate 0.12 % 15 mL (PERIDEX) 15 mL ORAL q 12 H budesonide 0.5 mg/2 mL 1 mg (PULMICORT) 1 mg INHALATION BID amiodarone 360 mg in D5W 200 mL (NEXTERONE) 0.5-1 mg/min INTRAVENOUS CONTINUOUS acetaminophen 650 mg tab(s) (TYLENOL) 650 mg ORAL q 6 H PRN aspirin 81 mg chewable tab(s) 81 mg ORAL DAILY insulin regular iv infusion 250 units in NaCl 0.9% 250 mL - AK CARD SURG NOMOGRAM 0-12 Units/hr INTRAVENOUS CONTINUOUS insulin regular human iv bolus 10 Units 10 Units INTRAVENOUS PRN dextrose 50% in water 25 mL syringe 12.5 g INTRAVENOUS PRN potassium chloride iv piggyback 20 mEq in sterile water 100 mL 20 mEq INTRAVENOUS PRN magnesium sulfate in water 2 g in sterile water 50 ml 2 g INTRAVENOUS PRN(NO DISPENSE) NaCl 0.9% iv infusion 50 mL/hr INTRAVENOUS CONTINUOUS albuterol 2.5 mg /3 mL (0.083 %) 2.5 mg (PROVENTIL) 2.5 mg INHALATION q 2 H PRN EPINEPHrine 4 mg in NaCl 0.9% 250 mL 0.5-10 mcg/min INTRAVENOUS CONTINUOUS niCARdipine 40 mg in NaCl 0.9% 200 mL infusion (CARDENE) 5- 10 mg/hr INTRAVENOUS CONTINUOUS calcium chloride 1 g in D5W 100 mL 1 g INTRAVENOUS PRN(NO DISPENSE) oxyCODONE-acetaminophen 5-325 mg 1-2 tablet (PERCOCET) 1-2 tablet ORAL q 4 H PRN morphine 2-4 mg injection 2-4 mg INTRAVENOUS q 1 H PRN pantoprazole 40 mg injection (PROTONIX) 40 mg INTRAVENOUS DAILY (6 AM) ondansetron (PF) 4 mg injection (ZOFRAN) 4 mg INTRAVENOUS q 6 H PRN propofol infusion (DIPRIVAN) 5-50 mcg/kg/min INTRAVENOUS CONTINUOUS ipratropium-albuterol 3 mL nebulizer solution (DUONEB) 3 mL INHALATION q 4 H PHENYLephrine 80 mg in D5W 250 mL (NEOSYNEPHRINE) 10-100 mcg/min INTRAVENOUS CONTINUOUS atorvastatin 40 mg tab(s) (LIPITOR) 40 mg ORAL AT BEDTIME 0.9% NaCl 3-5 mL 3-5 mL INTRAVENOUS q 12 H Lines, Drains, and Airways Line Peripheral 02/07/18 1600 Admission to Hospital Short Right Antecubital 4 days Peripheral 02/08/18 0100 Short Right Arm 20 Gauge 4 days Peripheral 02/08/18 0700 Short Left Forearm 4 days Arterial Line 02/09/18 0830 Arterial Line Left Radial 3 days Central Line Double Lumen 02/09/18 0845 Non-tunneled Right Neck 3 days Peripheral 02/09/18 0820 Left Forearm 16 Gauge 3 days Drain GI Feed/Drain 02/09/18 0800 Oral Gastric Midline 3 days Indwelling Urinary Catheter 02/09/18 0838 Temperature Monitoring 16 Fr 3 days Airway Airway Endotracheal Tube 02/09/18 0800 3 days PHYSICAL EXAM PERFORMED: HEENT: Oral Mucosa: Moist mucous membranes Feeding Tube: Yes. Orogastric tube Eyes: PERRLA Neck: Unremarkable; No adenopathy or JVD Cardiovascular: Regular rhythm Respiratory: Coarse +/- rhoncherous BSs with occasional expiratory wheezes. VENT: PRVC-16 Vt-550ml P-10 FiO2 40% SaO2 98% Ve-11-12l/min Abdomen: Soft, Nontender and Positive bowel sounds Extremities: Edema- No Peripheral Pulses- Present all extremities Capillary Refill- less than 3 seconds Skin: Abnormalities- No Neurologic: Agitated and Delirious Respiratory/Nursing Documentation: O2 Therapy: Ventilator (02/12/18 1500) Invasive Ventilator Mode: Pressure Regulated Volume Control (02/12/18 1219) Set Ventilator Respiratory Rate (BPM): 16 (02/12/181218) Total Respiratory Rate (BPM): 24 (02/12/181218) Tidal Volume Set (mL): 550 (02/12/181218) Exhaled Tidal Volume (mL): 473 (02/12/18 0859) Minute Volume (L): 9.5 (02/12/181218) Peak Inspiratory Pressure (cm H2O): 17 (02/12/18 121) PEEP/CPAP (cm H2O): 10 (02/12/181218) HEMODYNAMIC DATA: NUTRITION: Enteral Feeds: No NPO DATA: Diagnostic tests reviewed for today's visit: Most recent labs and imaging results. LABS: Recent Labs 02/12/18 0501 02/11/18 0420 02/10/18 0545 WBC 11.10* 15.13* < > 14.31* RBC 3.16* 3.37* < > 3.38* HB 10.2* 10.9* < > 10.9* HCT 30.5* 33.3* < > 32.6* MCV 96.5* 98.8* < > 96.4* PLT 96* 105* < > 112* GLUC 109* 104* < > 95 BUN 29* 25* < > 14 CREAT 1.19* 1.34* < > 0.93 NA 141 142 < > 144 K 3.9 4.3 < > 3.9 CHLOR 113* 112* < > 113* CO2 25 25 < > 25 CA 8.2* 8.3* < > 7.7* PTSEC -- -- -- 12.6* INR -- -- -- 1.23 MG -- 2.6 < > 2.3 < > = values in this interval not displayed. ABG: Recent Labs 02/10/18 0819 02/10/18 0547 02/09/182014 PH 7.392 7.385 7.267* PO2 79.1* 66.3* 85.4 PCO2 39.3 39.4 48.2* CULTURES: Sputum: Positive- Klebsiella oxytoca on 02/11/18 CXR FINDINGS: 02/12: IMPRESSION: ? Interval removal of Mccaskill-Daphne catheter left-sided thoracostomy tube. ? No significant interval change regarding mixed interstitial and airspace opacities ?at the right mid and bilateral lower lung zones. ?Primary differential considerations include atelectasis, consolidation or edema. ? Mild cardiomegaly, unchanged. ? No significant interval change regarding endotracheal tube. ?Enteric tube overlies ?the proximal stomach, tip not included on examination. Assessment/Plan PROBLEMS: ACTIVE PROBLEM LIST Inguinal Hernia Without Mention of Obstruction Or Gangrene, Unilateral Or Unspecified, (Not Specified As Recurrent) Nstemi (Non-St Elevated Myocardial Infarction) ([facility]) Nsvt (Nonsustained Ventricular Tachycardia) ([facility]) Nicotine use disorder, F17.2 1. Hypoxic respiratory failure secondary to COPD and bilateral infiltrates right > left. 2. Predominant right-sided +/- LLL infiltrates with fever, leukocytosis, and purulent phlegm c/w HCAP. Appears to be Klebsiella oxytoca. 3. Severe COPD with bronchospasm. PEEP increased to 10cm on 02/11 due to autoPEEP occurring. 4. Delirium post-op. 5. S/P CABG x 3 Day #3 6. GRIFFIN-improving--Cr 1.19 7. Thrombocytopenia--109K 8. Post-op AFib and sinus pauses--resolved and off of Amiodarone currently. PLANS FOR TODAY: CRITICAL CARE PLAN: Antibiotics , Bronchodilators , Tube feedings, Ventilatory support , Weaning and pare ATBx based on final culture report. 1. Will start Precedex to try and wean Diprivan 2. Vent support and wean as tolerated. 3. Start tube feeds. This patient has a high probability of sudden, clinically significant deterioration, which requires the highest level of physician preparedness to intervene urgently. I managed/supervised life or organ supporting interventions that required frequent physician assessment. I devoted my full attention to the direct care of this patient for the amount of time indicated below. Time I spent with family or surrogate(s) is included only if the patient was incapable of providing the necessary information or participating in medical decision making. Time devoted to teaching is not included. Patient Updated Yes Family Updated Yes--discussed with sister on 02/11 at length. Discussed with Staff Yes Time spent providing critical care services: 35 minutes excluding procedures. SIGNATURE: Elkin Zuleta MD PATIENT NAME: Jeffrey Cullen DATE: February 12, 2018 TIME: 3:22 PM PAGER/CONTACT #: [phone] GLUCOSE METER Collected: 02/12/2018 Status: F Source: [facility] 2:32 PM HEALTH SYSTEM REPOSITORY TYPE CODE TESTS RESULT OUT OF REFERENCE UNITS RANGE LAB GLUBL(LOINC 70-99 mg/dL ) High Glucose Meter 103 Result Comment: RN NOTIFIED Performed By: #### GLMET #### [facility] [address] [id number] PROGRESS Observed: 02/12/2018 Status: COMPLETED Source: [place] 11:02 AM CLINIC OTHER CAMPUS REPOSITORY HNO ID: [id number] Author: Juan Cabral Service: Cardiovascular Medicine Author Type: Physician Type: Progress Notes Filed: 02/12/2018 11:02 AM Note Text: Result Noted. Patient is currently hospitalized and managed by the in-patient team. Juan Cabral MD PROGRESS Observed: 02/12/2018 Status: COMPLETED Source: [place] 10:45 AM [facility] OTHER [place] REPOSITORY HNO ID: [id number] Author: Evans Parkinson Service: Cardiac Surgery Author Type: Physician Type: Progress Notes Filed: 02/12/2018 10:53 AM Note Text: CARDIOTHORACIC SURGERY POSTOP PROGRESS NOTE SERVICE DATE: 02/12/2018 SERVICE TIME: 10:46 AM Subjective S/P SURGERY: Procedure(s) (LRB): BYPASS GRAFT ARTERY CORONARY ON-PUMP THREE CORONARY VENOUS GRAFTS (N/A) DATE OF SURGERY: 02/09/2018 POSTOP DAY #3 LOS: 5 INTERVAL EVENTS / PERTINENT ROS: Drips weaned off. PA cath out. Chest tubes out. Vent wean in progress. Objective Admission Weight: 104.3 kg (229 lb 15 oz) BP 116/67 Pulse 79 Temp 37.3 ?C (99.1 ?F) Resp 13 Ht 180.3 cm (5' 10.98) Wt 112 kg (246 lb 14.6 oz) SpO2 99% BMI 34.45 kg/m2 Body surface area is 2.37 meters squared. Min/Max/Average Temperature AND Blood Pressure: Temp (24hrs), Av.9 ?C (100.2 ?F), Min:37.1 ?C (98.8 ?F), Max:38.6 ?C (101.5 ?F) Systolic (24hrs), Av , Min:116 , Max:116 Diastolic (24hrs), Av, Min:67, Max:67 Intake/Output Summary (Last 24 hours) at 02/12/18 1046 Last data filed at 02/12/18 1000 Gross per 24 hour Intake 2772.2 ml Output 1049 ml Net 1723.2 ml TELEMETRY: normal sinus rhythm PHYSICAL EXAM: On examination, the patient is sedated, intubated and is breathing comfortably. Vital signs are: BP 137/77 Pulse 65 Temp 36.7 ?C (98.1 ?F) Resp 20 Ht 180.3 cm (5' 11) Wt 86.4 kg (190 lb 7.6 oz) SpO2 99% BMI 26.57 kg/m2. There is no JVD. Breath sounds are clear bilaterally. The sternal wound is intact and the sternum is stable. The cardiac rhythm is regular. There are no rubs, gallops, or murmurs. The carotid, subclavian, and radial pulses are 2+ and equal bilaterally. The abdomen is soft and non-tender. There are no abdominal masses. There is no hepatojugular reflux. The saphenous vein harvest sites are intact. There is no pretibial edema. There is no clubbing or cyanosis. The neuro exam is grossly non focal. Lines, Drains, and Airways Line Peripheral 02/07/18 1600 Admission to Hospital Short Right Antecubital 4 days Peripheral 02/08/18 0100 Short Right Arm 20 Gauge 4 days Peripheral 02/08/18 0700 Short Left Forearm 4 days Arterial Line 02/09/18 0830 Arterial Line Left Radial 3 days Central Line Double Lumen 02/09/18 0845 Non-tunneled Right Neck 3 days Peripheral 02/09/18 0820 Left Forearm 16 Gauge 3 days Drain GI Feed/Drain 02/09/18 0800 Oral Gastric Midline 3 days Indwelling Urinary Catheter 02/09/18 0838 Temperature Monitoring 16 Fr 3 days Airway Airway Endotracheal Tube 02/09/18 0800 3 days DATA: Diagnostic tests reviewed for today's visit: Chest X-RAY: post op changes Recent Labs 02/12/18 0501 02/11/18 0420 02/10/18 1455 02/10/18 0545 02/09/18201402/09/18 1405 RBC 3.16* 3.37* 3.11* 3.38* -- 3.96* WBC 11.10* 15.13* 14.16* 14.31* -- 22.43* HB 10.2* 10.9* 10.1* 10.9* -- 13.1* HCT 30.5* 33.3* 31.0* 32.6* -- 38.7* PLT 96* 105* 107* 112* -- 157 INR -- -- -- 1.23 -- 1.24 APTT -- -- -- -- -- 23.0 NA 141 142 143 144 143 142 K 3.9 4.3 4.0 3.9 3.9 4.3 CHLOR 113* 112* 113* 113* 113* 113* CO2 25 25 26 25 23 25 BUN 29* 25* 17 14 15 12 CREAT 1.19* 1.34* 1.01 0.93 1.01 0.96 GLUC 109* 104* 97 95 135* 161* ICAL -- -- 4.73 -- 4.64 -- CA 8.2* 8.3* 8.1* 7.7* 7.8* 7.9* MG -- 2.6 2.5 2.3 1.9 1.8 P -- 3.6 2.6 -- -- -- TPROT -- -- -- -- -- 5.2* TBILI -- -- -- -- -- 0.6 ALKPHOS -- -- -- -- -- 64 ALT -- -- -- -- -- 30 AST -- -- -- -- -- 88* ANION 7* 9 8 10 11 8 Recent Labs 02/10/18 0819 02/10/18 0547 02/09/18201402/09/18 1252 02/09/18 1217 02/09/18 1144 PH 7.392 7.385 7.267* < > 7.236* 7.372 7.415 PCO2 39.3 39.4 48.2* < > -- -- -- PO2 79.1* 66.3* 85.4 < > 93.0 168.0* 256.0* BE -1.3 -1.7 -5.5 < > -- -- -- HCO3 -- -- -- -- 21.1* 20.9* 23.7 < > = values in this interval not displayed. Assessment/Plan Acute NSTEMI s/p CABG x 3 -POD#3 -c/w ASA, statin., beta krystle -Post thorax vest ? Anticipated acute pulmonary insufficiency s/p CTS 2/2 underlying COPD AND atelectasis -Vent management per pulmonary service ? Respiratory acidosis -Resolved ? ? Tests/Labs Ordered: 1. None SIGNATURE: Evans Parkinson MD PATIENT NAME: Jeffrey Cullen DATE: February 12, 2018 TIME: 10:46 AM PAGER/CONTACT #: [phone] GLUCOSE METER Collected: 02/12/2018 Status: F Source: [facility] 10:11 AM HEALTH SYSTEM REPOSITORY TYPE CODE TESTS RESULT OUT OF REFERENCE UNITS RANGE LAB GLUBL(LOINC 70-99 mg/dL ) High Glucose Meter 129 Result Comment: RN NOTIFIED Performed By: #### GLMET #### [facility] [address] [address] GLUCOSE METER Collected: 02/12/2018 Status: F Source: [facility] 8:02 AM HEALTH SYSTEM REPOSITORY TYPE CODE TESTS RESULT OUT OF REFERENCE UNITS RANGE LAB GLUBL(LOINC 70-99 mg/dL ) High Glucose Meter 116 Result Comment: RN NOTIFIED Performed By: #### GLMET #### [facility] [address] [address] GLUCOSE METER Collected: 02/12/2018 Status: F Source: [facility] 6:12 AM HEALTH SYSTEM REPOSITORY TYPE CODE TESTS RESULT OUT OF REFERENCE UNITS RANGE LAB GLUBL(LOINC 70-99 mg/dL ) High Glucose Meter 105 Result Comment: RN NOTIFIED Performed By: #### GLMET #### [place] [address] CHEST 1 VIEW Observed: 02/12/2018 Status: F Source: [facility] 5:15 AM HEALTH SYSTEM REPOSITORY Performed at [facility] APPROVED BY: ELAINE SWEENEY MD EXAM TITLE: PORTABLE AP/PA CHEST X RAY DATE: 02/12/2018 05:11 COMPARISON: 02/11/2018 CLINICAL INDICATION/HISTORY: Status post CABG ENCOUNTER: Not applicable TECHNIQUE: Single portable AP/PA radiograph of the chest RESULT: Lines, tubes, and devices: Interval removal of Mccaskill-Daphne catheter and left-sided thoracostomy tube. Right internal jugular central venous sheath with tip overlying the right brachiocephalic vein. Again demonstrated is endotracheal tube, tube tip approximately 6.8 cm above the nelda. Again demonstrated is enteric tube, side port is below the esophagogastric junction, however tip not included on examination. Lungs and pleura: No significant interval change regarding mixed interstitial and airspace opacities at the right mid and bilateral lower lung zones, possibly related to atelectasis or consolidation. Suspect small left pleural effusion. No discrete right-sided effusion or pneumothorax. Increase in conspicuity of peribronchial cuffing, compared to previous examination. Cardiomediastinal silhouette: Mildly enlarged cardiac silhouette, essentially unchanged. Postsurgical changes from coronary artery bypass graft. Sternotomy wires are intact. Other: Osseous structures and soft tissues grossly intact. IMPRESSION: Interval removal of Mccaskill-Daphne catheter left-sided thoracostomy tube. No significant interval change regarding mixed interstitial and airspace opacities at the right mid and bilateral lower lung zones. Primary differential considerations include atelectasis, consolidation or edema. Mild cardiomegaly, unchanged. No significant interval change regarding endotracheal tube. Enteric tube overlies the proximal stomach, tip not included on examination. BASIC PANEL Collected: 02/12/2018 Status: F Source: [facility] 5:01 [employer] [facility] REPOSITORY TYPE CODE TESTS RESULT OUT OF REFERENCE UNITS RANGE LAB NA(LOINC) 136-145 mEq/L Sodium Blood 141 LAB K(LOINC) 3.5-5.1 mEq/L Potassium Blood 3.9 LAB CL(LOINC) 98-107 mEq/L Chloride High Blood 113 LAB CO2(LOINC) 21-32 mEq/L CO2 Blood 25 LAB GLU(LOINC) 70-99 mg/dL Glucose High Blood 109 LAB BUN(LOINC) 7-18 mg/dL BUN High Blood 29 LAB CREA(LOINC 0.67-1.17 mg/dL ) High Creatinine Blood 1.19 LAB CA(LOINC) 8.5-10.1 mg/dL Low Calcium Blood 8.2 LAB ANGAP(LOIN 8-16 C) Low Anion Gap 7 Performed By: #### P8 #### [place] [address] MDRD GFR Collected: 02/12/2018 Status: F Source: [facility] 5:01 HEALTH SYSTEM REPOSITORY TYPE CODE TESTS RESULT OUT OF RANGE REFERENCE UNITS LAB GFRFN(LOINC >60mL/min/1.73m ) 2 eGFR >60 Result Comment: If the patient is , multiply the result by 1.210. Performed By: #### GFR #### [facility] [address] [place], [place] [address] HEMOGRAM/DIFF Collected: 02/12/2018 Status: F Source: [facility] 5:01 AM HEALTH SYSTEM REPOSITORY TYPE CODE TESTS RESULT OUT OF REFERENCE UNITS RANGE LAB WBC(LOINC) 4.23-9.07 thou/cmm WBC High 11.10 LAB RBC(LOINC) 4.63-6.08 mil/cmm Low RBC 3.16 LAB HGB(LOINC) 13.7-17.5 g/dL Low Hgb 10.2 LAB HCT(LOINC) 40.1-51.0 % Low Hct 30.5 LAB MCV(LOINC) 83.2-95.6 fl MCV High 96.5 LAB MCH(LOINC) 25.7-32.2 pg MCH High 32.3 LAB MCHC(LOINC 32.3-36.5 % ) MCHC 33.4 LAB RDW(LOINC) 11.6-14.4 % RDW 13.7 LAB RDWSD(LOIN 36.1-45.8 fl C) RDW SD High 49.0 LAB PLT(LOINC) 141-365 thou/cmm Low Platelet 96 LAB MPV(LOINC) 8.7-12.0 fl MPV 10.0 LAB SEG(LOINC) % Seg Neutrophil 75.8 LAB IGRE(LOINC % ) Immature Grans 0.60 LAB LYMPH(LOIN % C) Lymphocyte 15.9 LAB MNO(LOINC) % Monocyte 6.6 LAB EOSIN(LOIN % C) Eosinophil 0.8 LAB BASO(LOINC % ) Basophil 0.3 LAB SEGN(LOINC 1.78-5.38 thou/cmm ) Abs. High Neut 8.41 LAB IGAB(LOINC 0.00-0.05 thou/cmm ) Abs High Immature Grans 0.07 LAB LYMN(LOINC 0.84-2.85 thou/cmm ) Abs. Lymph 1.76 LAB MONON(LOIN 0.30-0.82 thou/cmm C) Abs. Slope 0.73 LAB EOSN(LOINC 0.04-0.54 thou/cmm ) Abs. Eosin 0.09 LAB BASON(LOIN 0.01-0.08 thou/cmm C) Abs. Baso 0.03 Performed By: #### [id number] #### [facility] [address] [place] [id number] GLUCOSE METER Collected: 02/12/2018 Status: F Source: [facility] 4:29 AM HEALTH SYSTEM REPOSITORY TYPE CODE TESTS RESULT OUT OF REFERENCE UNITS RANGE LAB GLUBL(LOINC 70-99 mg/dL ) High Glucose Meter 104 Result Comment: RN NOTIFIED Performed By: #### GLMET #### [facility] [address] [address] GLUCOSE METER Collected: 02/12/2018 Status: F Source: [facility] 2:32 AM HEALTH SYSTEM REPOSITORY TYPE CODE TESTS RESULT OUT OF REFERENCE UNITS RANGE LAB GLUBL(LOINC 70-99 mg/dL ) High Glucose Meter 126 Result Comment: RN NOTIFIED Performed By: #### GLMET #### [facility] [address] [id number] GLUCOSE METER Collected: 02/12/2018 Status: F Source: [facility] 12:31 AM HEALTH SYSTEM REPOSITORY TYPE CODE TESTS RESULT OUT OF REFERENCE UNITS RANGE LAB GLUBL(LOINC 70-99 mg/dL ) High Glucose Meter 136 Result Comment: RN NOTIFIED Performed By: #### GLMET #### [facility] [address] [address] GLUCOSE METER Collected: 02/11/2018 Status: F Source: [facility] 10:05 PM HEALTH SYSTEM REPOSITORY TYPE CODE TESTS RESULT OUT OF REFERENCE UNITS RANGE LAB GLUBL(LOINC 70-99 mg/dL ) High Glucose Meter 107 Result Comment: RN NOTIFIED Performed By: #### GLMET #### [facility] [address] [address] PROGRESS Observed: 02/11/2018 Status: COMPLETED Source: [place] 8:20 PM CLINIC OTHER CAMPUS REPOSITORY HNO ID: [id number] Author: Paulette (Rn) RAINA Garibay Service: Critical Care Author Type: Registered Nurse Type: Progress Notes Filed: 02/12/2018 12:45 AM Note Text: RN attempted sedation vacation. Prior to pt arousing enough to follow directions RR increased >40, HR increased, pt was trying to sit up in bed, and pt started bucking the vent. Pt had non-purposeful movement in all 4 ext but did not follow commands. GLUCOSE METER Collected: 02/11/2018 Status: F Source: [facility] 8:09 PM HEALTH SYSTEM REPOSITORY TYPE CODE TESTS RESULT OUT OF REFERENCE UNITS RANGE LAB GLUBL(LOINC 70-99 mg/dL ) Glucose Meter 94 Result Comment: RN NOTIFIED Performed By: #### GLMET #### [facility] [address] [address] GLUCOSE METER Collected: 02/11/2018 Status: F Source: [facility] 6:02 PM HEALTH SYSTEM REPOSITORY TYPE CODE TESTS RESULT OUT OF REFERENCE UNITS RANGE LAB GLUBL(LOINC 70-99 mg/dL ) High Glucose Meter 107 Result Comment: RN NOTIFIED Performed By: #### GLMET #### [facility] [address] [address] GLUCOSE METER Collected: 02/11/2018 Status: F Source: [facility] 4:25 PM HEALTH SYSTEM REPOSITORY TYPE CODE TESTS RESULT OUT OF REFERENCE UNITS RANGE LAB GLUBL(LOINC 70-99 mg/dL ) High Glucose Meter 103 Result Comment: RN NOTIFIED Performed By: #### GLMET #### [facility] [address] [address] GLUCOSE METER Collected: 02/11/2018 Status: F Source: [facility] 2:33 PM HEALTH SYSTEM REPOSITORY TYPE CODE TESTS RESULT OUT OF REFERENCE UNITS RANGE LAB GLUBL(LOINC 70-99 mg/dL ) High Glucose Meter 115 Result Comment: RN NOTIFIED Performed By: #### GLMET #### [facility] [address] [address] Observed: 02/11/2018 Status: F Source: [facility]ULT [facility] 2:33 PM HEALTH SYSTEM RESPIRATORY REPOSITORY Test performed at [facility] Absence of normal oropharyngeal shannan Moderate WBC Moderate Gram negative bacilli Few Mixed shannan ORGANISM: Klebsiella oxytoca (ID: 1) Many For sensitivity report see Date/ ORGANISM: Escherichia coli (ID: 2) Many Performed By: #### C_RES #### [facility] [address] [place] [id number] GLUCOSE METER Collected: 02/11/2018 Status: F Source: [facility] 1:12 PM HEALTH SYSTEM REPOSITORY TYPE CODE TESTS RESULT OUT OF REFERENCE UNITS RANGE LAB GLUBL(LOINC 70-99 mg/dL ) High Glucose Meter 107 Result Comment: RN NOTIFIED Performed By: #### GLMET #### [place] [id number] PROGRESS Observed: 02/11/2018 Status: COMPLETED Source: [place] 12:37 PM CLINIC OTHER CAMPUS REPOSITORY HNO ID: [id number] Author: Juan Cabral Service: Cardiovascular Medicine Author Type: Physician Type: Progress Notes Filed: 02/11/2018 12:37 PM Note Text: Result Noted. Patient is currently hospitalized and managed by the in-patient team. Juan Cabral MD PROGRESS Observed: 02/11/2018 Status: COMPLETED Source: [place] 10:15 AM [facility] OTHER [place] REPOSITORY HNO ID: [id number] Author: Evans Parkinson Service: Cardiac Surgery Author Type: Physician Type: Progress Notes Filed: 02/11/2018 10:19 AM Note Text: CARDIOTHORACIC SURGERY POSTOP PROGRESS NOTE SERVICE DATE: 02/11/2018 SERVICE TIME: 10:15 AM Subjective S/P SURGERY: Procedure(s) (LRB): BYPASS GRAFT ARTERY CORONARY ON-PUMP THREE CORONARY VENOUS GRAFTS (N/A) DATE OF SURGERY: 02/09/2018 POSTOP DAY #2 LOS: 4 INTERVAL EVENTS / PERTINENT ROS: Hemodynamics stable. AF with RVR. Acute respiratory insufficiency; on vent; COPD Objective Admission Weight: 104.3 kg (229 lb 15 oz) BP 88/68 Pulse (!) 131 Temp 37.6 ?C (99.7 ?F) Resp (!) 33 Ht 180.3 cm (5' 10.98) Wt 110.1 kg (242 lb 11.6 oz) SpO2 92% BMI 33.87 kg/m2 Body surface area is 2.35 meters squared. Min/Max/Average Temperature AND Blood Pressure: Temp (24hrs), Av.5 ?C (99.5 ?F), Min:37.1 ?C (98.8 ?F), Max:37.7 ?C (99.9 ?F) Systolic (24hrs), Av , Min:88 , Max:99 Diastolic (24hrs), Av, Min:62, Max:68 Intake/Output Summary (Last 24 hours) at 02/11/18 1015 Last data filed at 02/11/18 0900 Gross per 24 hour Intake 1934 ml Output 1221 ml Net 713 ml TELEMETRY: atrial fibrillation PHYSICAL EXAM: On examination, the patient is sedated, breathing comfortably. Vital signs are: BP 137/77 Pulse 65 Temp 36.7 ?C (98.1 ?F) Resp 20 Ht 180.3 cm (5' 11) Wt 86.4 kg (190 lb 7.6 oz) SpO2 99% BMI 26.57 kg/m2. There is no JVD. Breath sounds are clear bilaterally. The sternal wound is intact and the sternum is stable. The cardiac rhythm is irregular, tachcardia. There are no rubs, gallops, or murmurs. The abdomen is soft and non-tender. There are no abdominal masses. The saphenous vein harvest sites are intact. There is no pretibial edema. There is no clubbing or cyanosis. The neuro exam is grossly non focal. Chest tube output is serosanguinous. Lines, Drains, and Airways Line Peripheral 02/07/18 1600 Admission to Hospital Short Right Antecubital 3 days Peripheral 02/08/18 0100 Short Right Arm 20 Gauge 3 days Peripheral 02/08/18 0700 Short Left Forearm 3 days Arterial Line 02/09/18 0830 Arterial Line Left Radial 2 days Central Line Double Lumen 02/09/18 0845 Non-tunneled Right Leg 2 days Peripheral 02/09/18 0820 Left Forearm 16 Gauge 2 days Drain GI Feed/Drain 02/09/18 0800 Oral Gastric Midline 2 days Indwelling Urinary Catheter 02/09/18 0838 Temperature Monitoring 16 Fr 2 days Chest Tube 02/09/18 1200 Assessment Midline Anterior Mediastinal Tube #2 1 day Chest Tube 02/09/18 1200 Left Anterior Pleural Tube #1 1 day Airway Airway Endotracheal Tube 02/09/18 0800 2 days DATA: Diagnostic tests reviewed for today's visit: CXR: post op changes; PA catheter coiled in PA Recent Labs 02/11/18 0420 02/10/18 1455 02/10/18 0545 02/09/18201402/09/18 1405 02/09/18 0123 02/08/18 1730 RBC 3.37* 3.11* 3.38* -- 3.96* < > -- -- WBC 15.13* 14.16* 14.31* -- 22.43* < > -- -- HB 10.9* 10.1* 10.9* -- 13.1* < > -- -- HCT 33.3* 31.0* 32.6* -- 38.7* < > -- -- PLT 105* 107* 112* -- 157 < > -- -- INR -- -- 1.23 -- 1.24 -- -- -- APTT -- -- -- -- 23.0 -- 43.7* 25.8 NA 142 143 144 143 142 < > -- -- K 4.3 4.0 3.9 3.9 4.3 < > -- -- CHLOR 112* 113* 113* 113* 113* < > -- -- CO2 25 26 25 23 25 < > -- -- BUN 25* 17 14 15 12 < > -- -- CREAT 1.34* 1.01 0.93 1.01 0.96 < > -- -- GLUC 104* 97 95 135* 161* < > -- -- ICAL -- 4.73 -- 4.64 -- -- -- -- CA 8.3* 8.1* 7.7* 7.8* 7.9* < > -- -- MG 2.6 2.5 2.3 1.9 1.8 < > -- -- P 3.6 2.6 -- -- -- -- -- -- TPROT -- -- -- -- 5.2* -- -- -- TBILI -- -- -- -- 0.6 -- -- -- ALKPHOS -- -- -- -- 64 -- -- -- ALT -- -- -- -- 30 -- -- -- AST -- -- -- -- 88* -- -- -- ANION 9 8 10 11 8 < > -- -- < > = values in this interval not displayed. Recent Labs 02/10/18 0819 02/10/18 0547 02/09/18201402/09/18 1252 02/09/18 1217 02/09/18 1144 PH 7.392 7.385 7.267* < > 7.236* 7.372 7.415 PCO2 39.3 39.4 48.2* < > -- -- -- PO2 79.1* 66.3* 85.4 < > 93.0 168.0* 256.0* BE -1.3 -1.7 -5.5 < > -- -- -- HCO3 -- -- -- -- 21.1* 20.9* 23.7 < > = values in this interval not displayed. Assessment/Plan -POD#2 -c/w ASA, statin. DC ollie start beta krystle for AF, RVR -Post thorax vest remove PA catheter remove chest tubes ? Anticipated acute pulmonary insufficiency s/p CTS 2/2 underlying COPD AND atelectasis -Vent management per pulmonary service ? ? Tests/Labs Ordered: 1. Chest X-ray 2. BMP 3. CBC SIGNATURE: Evans Parkinson MD PATIENT NAME: Jeffrey Cullen DATE: February 11, 2018 TIME: 10:15 AM PAGER/CONTACT #: [phone] GLUCOSE METER Collected: 02/11/2018 Status: F Source: [facility] 10:08 AM HEALTH SYSTEM REPOSITORY TYPE CODE TESTS RESULT OUT OF REFERENCE UNITS RANGE LAB GLUBL(LOINC 70-99 mg/dL ) Glucose Meter 95 Result Comment: RN NOTIFIED Performed By: #### GLMET #### [place] [address] NUTRITION Observed: 02/11/2018 Status: COMPLETED Source: [place] 10:07 AM CLINIC OTHER CAMPUS REPOSITORY HNO ID: [id number] Author: Sandra Almaguer RD Service: Nutrition Therapy Author Type: Registered Dietitian Type: Nutrition Filed: 02/11/2018 1:42 PM Note Text: NUTRITION THERAPY INITIAL ASSESSMENT SERVICE DATE: 02/11/2018 SERVICE TIME: 10:08 AM RECOMMENDED MALNUTRITION DIAGNOSIS: NO MALNUTRITION IDENTIFIED NUTRITION CARE PLAN: Problem, Etiology and Signs/Symptoms: Suboptimal oral intake related to respiratory status as evidenced by NPO and vent support Intervention: Impact Peptide at goal rate 57 ml/hr to provide 1368 ml product - 2052 kcal, 128.6 gm protein, 1053 ml free water Flush with 30 ml 6 times per day Adjust TF flush as IF fluids decreased Coordination of Care: Recommend swallow evaluation per Speech Language Pathologist Nursing Monitor and Evaluation: Goal: Meet >75% of estimated needs Monitor fluid/electrolyte balance Monitor labs, I/Os, vital signs, weight Monitor tolerance to tube feeding Discharge Nutrition Recommendations: To be determined Chart reviewed for consult Per HPI: 67 year old male patient with no known PMH other than long history of smoking ( 2packs a day for more than 30 years) Earlier 02/07/18 he was sitting and suddenly started having substernal chest pain, pain is intermittent with no radiation, he felt nauseas but no vomiting and no diaphoresis This pain kept coming so he went to the ER Underwent LHC on 02/08/18 showed need for CABG, underwent CABG on 02/09/18. Met with RN reviewed plan. No past medical history on file. PAST SURGICAL HISTORY Procedure Laterality Date - ORTHOPEDICS SURGERY HX - REPAIR ING HERNIA,5+Y/O,REDUCIBL 1990 Hernia repair, inguinal,left ACTIVE PROBLEM LIST Inguinal Hernia Without Mention of Obstruction Or Gangrene, Unilateral Or Unspecified, (Not Specified As Recurrent) Nstemi (Non-St Elevated Myocardial Infarction) ([facility]) Nsvt (Nonsustained Ventricular Tachycardia) ([facility]) Nicotine use disorder, F17.2 Present Diet Order: NPO Enteral Access: Oral gastric tube Nutritional Intake Prior to intubation: >75% estimated energy needs over the past 2 day(s), now intubated and NPO 2-3 days. GI symptoms: unable to determine at this time, intubated Abdominal Exam: abdomen is distended and bowel sounds are faint/hypoactive, per clinical documentation Is the patient having any pain that is interfering with oral/enteral intake? Unable to assess ANTHROPOMETRICS Height: 180.3 cm () Admission Weight: 104.3 kg (229 lb 15 oz) Current Weight: 110.1 kg (242 lb 11.6 oz) Body mass index is 33.87 kg/(m2). class 1 obesity Weight has increased by 5.8 kg over 4 days representing 5.3 % weight change. Last Wt 02/11/18 : 110.1 kg (242 lb 11.6 oz) 02/07/18 : 104.3 kg (230 lb) 12/04/07 : 100.2 kg (221 lb) [place] Body Weight: 78.2kg Resting Metabolic Rate: 1897 Estimated kilocalorie needs: 2331-8679 kilocalories determined by 25-30 kcal/kg ideal body weight Estimated protein needs: 102-133 grams determined by 1.3-1.7 g/kg [place] weight Estimated fluid needs: 9706-7231 milliliters based on 1 mL per kcal NUTRITION FOCUSED PHYSICAL EXAM: Subcutaneous Fat Loss Orbital No fat loss Triceps Unable to determine at this time, restrainted Mid-axillary at the iliac crest Unable to determine at this time Muscle Loss Locations: Temporalis No muscle loss Pectoralis No muscle loss Deltoids No muscle loss Interosseous No muscle loss Latissimus dorsi, trapezius Unable to determine at this time Quadriceps No muscle loss Gastrocnemius No muscle loss Potential micronutrient deficiency revealed in: Unable to determine at this time Edema: Yes Non-pitting Ascites: No Assessment of Functional Status: Unable to determine at this time Temperature Max in 24 hours: Temp (24hrs), Av.5 ?C (99.5 ?F), Min:37.1 ?C (98.8 ?F), Max:37.7 ?C (99.9 ?F) BP 88/68 Pulse (!) 131 Temp 37.6 ?C (99.7 ?F) Resp (!) 33 Ht 180.3 cm () Wt 110.1 kg (242 lb 11.6 oz) SpO2 92% BMI 33.87 kg/m2 Recent Labs 02/11/18 0420 02/09/18 1405 GLUC 104* < > 161* BUN 25* < > 12 CREAT 1.34* < > 0.96 NA 142 < > 142 K 4.3 < > 4.3 CHLOR 112* < > 113* CO2 25 < > 25 ALB -- -- 2.5* HB 10.9* < > 13.1* HCT 33.3* < > 38.7* WBC 15.13* < > 22.43* P 3.6 < > -- MG 2.6 < > 1.8 < > = values in this interval not displayed. Potential Signs of Inflammation: leukocytosis, hyperglycemia, hypoalbuminemia, hyperthermia and tachycardia ALLERGIES No Known Allergies Current Facility-Administered Medications: piperacillin-tazobactam 3.375 g in dextrose (iso-osmotic) 50 mL (ZOSYN) 3.375 g INTRAVENOUS q 6 H vancomycin iv piggyback 1 g in D5W 200 mL (VANCOCIN) 1 g INTRAVENOUS q 12 HR Chlorhexidine Gluconate 0.12 % 15 mL (PERIDEX) 15 mL ORAL q 12 H budesonide 0.5 mg/2 mL 1 mg (PULMICORT) 1 mg INHALATION BID amiodarone 360 mg in D5W 200 mL (NEXTERONE) 0.5-1 mg/min INTRAVENOUS CONTINUOUS acetaminophen 650 mg tab(s) (TYLENOL) 650 mg ORAL q 6 H PRN aspirin 81 mg chewable tab(s) 81 mg ORAL DAILY insulin regular iv infusion 250 units in NaCl 0.9% 250 mL - AK CARD SURG NOMOGRAM 0-12 Units/hr INTRAVENOUS CONTINUOUS insulin regular human iv bolus 10 Units 10 Units INTRAVENOUS PRN dextrose 50% in water 25 mL syringe 12.5 g INTRAVENOUS PRN potassium chloride iv piggyback 20 mEq in sterile water 100 mL 20 mEq INTRAVENOUS PRN magnesium sulfate in water 2 g in sterile water 50 ml 2 g INTRAVENOUS PRN(NO DISPENSE) NaCl 0.9% iv infusion 50 mL/hr INTRAVENOUS CONTINUOUS albuterol 2.5 mg /3 mL (0.083 %) 2.5 mg (PROVENTIL) 2.5 mg INHALATION q 2 H PRN EPINEPHrine 4 mg in NaCl 0.9% 250 mL 0.5-10 mcg/min INTRAVENOUS CONTINUOUS niCARdipine 40 mg in NaCl 0.9% 200 mL infusion (CARDENE) 5- 10 mg/hr INTRAVENOUS CONTINUOUS calcium chloride 1 g in D5W 100 mL 1 g INTRAVENOUS PRN(NO DISPENSE) oxyCODONE-acetaminophen 5-325 mg 1-2 tablet (PERCOCET) 1-2 tablet ORAL q 4 H PRN morphine 2-4 mg injection 2-4 mg INTRAVENOUS q 1 H PRN pantoprazole 40 mg injection (PROTONIX) 40 mg INTRAVENOUS DAILY (6 AM) ondansetron (PF) 4 mg injection (ZOFRAN) 4 mg INTRAVENOUS q 6 H PRN propofol infusion (DIPRIVAN) 5-50 mcg/kg/min INTRAVENOUS CONTINUOUS ipratropium-albuterol 3 mL nebulizer solution (DUONEB) 3 mL INHALATION q 4 H PHENYLephrine 80 mg in D5W 250 mL (NEOSYNEPHRINE) 10-100 mcg/min INTRAVENOUS CONTINUOUS atorvastatin 40 mg tab(s) (LIPITOR) 40 mg ORAL AT BEDTIME 0.9% NaCl 3-5 mL 3-5 mL INTRAVENOUS q 12 H Surgical Incision 02/09/18 Chest - Midsternal (Active) Dressing Status None: Open to Air 02/11/2018 8:00 AM Frequency of Dressing Change As Needed 02/11/2018 8:00 AM Incision Closures Topical Skin Adhesive 02/11/2018 8:00 AM Drainage Description None 02/11/2018 8:00 AM Drainage Amount None 02/11/2018 8:00 AM Edges Intact;Clear 02/11/2018 8:00 AM Hematoma No 02/11/2018 8:00 AM Number of days:2 Surgical Incision 02/09/18 Leg - Left (Active) Dressing Status None: Open to Air 02/11/2018 8:00 AM Frequency of Dressing Change As Needed 02/11/2018 8:00 AM Incision Closures Topical Skin Adhesive 02/11/2018 8:00 AM Drainage Description None 02/11/2018 8:00 AM Drainage Amount None 02/11/2018 8:00 AM Edges Clear;Intact 02/11/2018 8:00 AM Hematoma No 02/11/2018 8:00 AM Number of days:2 MNT Billing Type: Initial Assess/15 min 5 units SIGNATURE: Sandra Almaguer RD, LD PATIENT NAME: Jeffrey Cullen DATE: February 11, 2018 TIME: 10:08 AM PAGER: [phone] NURSING PROG Observed: 02/11/2018 Status: COMPLETED Source: [place] 9:56 AM CLINIC OTHER CAMPUS REPOSITORY HNO ID: [id number] Author: Dionicio MoodyRn) RAINA Prieto Service: Nursing Author Type: Registered Nurse Type: Nursing Progress Note Filed: 02/11/2018 9:59 AM Note Text: Nursing Progress Note Patient Name: Jeffrey Cullen Patient Location: [place] [id number] Sedation holiday attempted at 0920 and ended at 0950 d/t increased HR/RR. Patient unable to follow commands during holiday. Patient spontaneously moves all extremities/opens eyes. Phenylephrine gtt weaned off during holiday d/t increased BP. Propofol restarted at a lower dose and Phenylephrine remains on hold for now (Will restart as needed). This note was completed by: Dionicio Prieto RN PROGRESS Observed: 02/11/2018 Status: COMPLETED Source: [place] 9:00 AM [facility] OTHER CAMPUS REPOSITORY O ID: [id number] Author: Elkin Zuleta Service: Critical Care Author Type: Physician Type: Progress Notes Filed: 02/11/2018 9:33 AM Note Text: MICU - PROGRESS NOTE SERVICE DATE: 02/11/2018 SERVICE TIME: 9:12 AM Admission Date: 02/07/2018 AGE: [age] year old LOS: 4 days Subjective REASON FOR ICU ADMISSION: Atelectasis, Atrial Fibrillation, Confusion and Delirium, COPD and Shock Sedated on 40mcg/kg/min Propofol Neosynephrine gtt remains on at 75mcg/min Amiodarone off due to pauses noted overnight. Now in AFib in 110's Currently sedated and not responsive to name or touch. Secretions thick and stern per ETT Objective VITAL SIGNS (last 24hrs min/max): Temp Av.4 ?C (99.4 ?F) Min: 37.1 ?C (98.8 ?F) Max: 37.7 ?C (99.9 ?F) Pulse Av.5 Min: 78 Max: 133 Arterial BP 1 Min: 95/55 Max: 115/66 Cuff BP Min: 88/68 Max: 103/67 Pain Score: Pt. 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 BP 88/68 Pulse 109 Temp (Src) 99.7 (Core) Resp 15 Ht 5' 10.984 (1.80m) Wt 242 lb 11.6 oz (110.1kg) SpO2 97% BMI 33.87 kg/(m2). Temp (24hrs), Av.4 ?C (99.4 ?F), Min:37.1 ?C (98.8 ?F), Max:37.7 ?C (99.9 ?F) NET FLUID BALANCE Intake/Output Summary (Last 24 hours) at 02/11/18 0912 Last data filed at 02/11/18 0900 Gross per 24 hour Intake 1934 ml Output 1348 ml Net 586 ml MEDICATIONS Current Facility-Administered Medications: Chlorhexidine Gluconate 0.12 % 15 mL (PERIDEX) 15 mL ORAL q 12 H budesonide 0.5 mg/2 mL 1 mg (PULMICORT) 1 mg INHALATION BID amiodarone 360 mg in D5W 200 mL (NEXTERONE) 0.5-1 mg/min INTRAVENOUS CONTINUOUS acetaminophen 650 mg tab(s) (TYLENOL) 650 mg ORAL q 6 H PRN aspirin 81 mg chewable tab(s) 81 mg ORAL DAILY insulin regular iv infusion 250 units in NaCl 0.9% 250 mL - [place] CARD SURG NOMOGRAM 0-12 Units/hr INTRAVENOUS CONTINUOUS insulin regular human iv bolus 10 Units 10 Units INTRAVENOUS PRN dextrose 50% in water 25 mL syringe 12.5 g INTRAVENOUS PRN potassium chloride iv piggyback 20 mEq in sterile water 100 mL 20 mEq INTRAVENOUS PRN magnesium sulfate in water 2 g in sterile water 50 ml 2 g INTRAVENOUS PRN(NO DISPENSE) NaCl 0.9% iv infusion 50 mL/hr INTRAVENOUS CONTINUOUS albuterol 2.5 mg /3 mL (0.083 %) 2.5 mg (PROVENTIL) 2.5 mg INHALATION q 2 H PRN EPINEPHrine 4 mg in NaCl 0.9% 250 mL 0.5-10 mcg/min INTRAVENOUS CONTINUOUS niCARdipine 40 mg in NaCl 0.9% 200 mL infusion (CARDENE) 5- 10 mg/hr INTRAVENOUS CONTINUOUS calcium chloride 1 g in D5W 100 mL 1 g INTRAVENOUS PRN(NO DISPENSE) oxyCODONE-acetaminophen 5-325 mg 1-2 tablet (PERCOCET) 1-2 tablet ORAL q 4 H PRN morphine 2-4 mg injection 2-4 mg INTRAVENOUS q 1 H PRN pantoprazole 40 mg injection (PROTONIX) 40 mg INTRAVENOUS DAILY (6 AM) ondansetron (PF) 4 mg injection (ZOFRAN) 4 mg INTRAVENOUS q 6 H PRN propofol infusion (DIPRIVAN) 5-50 mcg/kg/min INTRAVENOUS CONTINUOUS ipratropium-albuterol 3 mL nebulizer solution (DUONEB) 3 mL INHALATION q 4 H PHENYLephrine 80 mg in D5W 250 mL (NEOSYNEPHRINE) 10-100 mcg/min INTRAVENOUS CONTINUOUS atorvastatin 40 mg tab(s) (LIPITOR) 40 mg ORAL AT BEDTIME 0.9% NaCl 3-5 mL 3-5 mL INTRAVENOUS q 12 H Lines, Drains, and Airways Line Peripheral 02/07/18 1600 Admission to Hospital Short Right Antecubital 3 days Peripheral 02/08/18 0100 Short Right Arm 20 Gauge 3 days Peripheral 02/08/18 0700 Short Left Forearm 3 days Arterial Line 02/09/18 0830 Arterial Line Left Radial 2 days Central Line Double Lumen 02/09/18 0845 Non-tunneled Right Leg 2 days Peripheral 02/09/18 0820 Left Forearm 16 Gauge 2 days Drain GI Feed/Drain 02/09/18 0800 Oral Gastric Midline 2 days Indwelling Urinary Catheter 02/09/18 0838 Temperature Monitoring 16 Fr 2 days Chest Tube 02/09/18 1200 Assessment Midline Anterior Mediastinal Tube #2 1 day Chest Tube 02/09/18 1200 Left Anterior Pleural Tube #1 1 day Airway Airway Endotracheal Tube 02/09/18 0800 2 days PHYSICAL EXAM PERFORMED: HEENT: Oral Mucosa: Moist mucous membranes Feeding Tube: with bilious drainage of roughly 400ml Eyes: PERRLA Neck: Unremarkable; No adenopathy or JVD Cardiovascular: Irregular rhythm and tachycardic--AFib on monitor Respiratory: Coarse expiratory wheezes bilaterally. Coarse inspiratory BSs on left side. PRVC-16 Vt-550 P--5 FIO2--40% SaO2 97% Ve-13l/min. Abdomen: Soft, Nontender and Positive bowel sounds Extremities: Edema- No Peripheral Pulses- Present all extremities Capillary Refill- less than 3 seconds Skin: Abnormalities- No Neurologic: Sedated Respiratory/Nursing Documentation: O2 Therapy: Ventilator (02/11/18 0828) Invasive Ventilator Mode: Pressure Regulated Volume Control (02/11/18827) Set Ventilator Respiratory Rate (BPM): 16 (02/11/18827) Total Respiratory Rate (BPM): 24 (02/11/18827) Tidal Volume Set (mL): 550 (02/11/18827) Exhaled Tidal Volume (mL): 768 (02/11/18401) Minute Volume (L): 10 (02/11/18827) Peak Inspiratory Pressure (cm H2O): 10 (02/11/18827) PEEP/CPAP (cm H2O): 5 (02/11/18827) HEMODYNAMIC DATA: NUTRITION: Enteral Feeds: No NPO DATA: Diagnostic tests reviewed for today's visit: Most recent labs and imaging results. LABS: Recent Labs 02/11/18 0420 02/10/18 0545 02/09/18 1405 02/08/18 1210 TROPI -- -- -- -- -- -- 39.700* WBC 15.13* < > 14.31* -- 22.43* < > -- RBC 3.37* < > 3.38* -- 3.96* < > -- HB 10.9* < > 10.9* -- 13.1* < > -- HCT 33.3* < > 32.6* -- 38.7* < > -- MCV 98.8* < > 96.4* -- 97.7* < > -- PLT 105* < > 112* -- 157 < > -- GLUC 104* < > 95 < > 161* < > -- BUN 25* < > 14 < > 12 < > -- CREAT 1.34* < > 0.93 < > 0.96 < > -- NA 142 < > 144 < > 142 < > -- K 4.3 < > 3.9 < > 4.3 < > -- CHLOR 112* < > 113* < > 113* < > -- CO2 25 < > 25 < > 25 < > -- TPROT -- -- -- -- 5.2* -- -- ALB -- -- -- -- 2.5* -- -- CA 8.3* < > 7.7* < > 7.9* < > -- ALKPHOS -- -- -- -- 64 -- -- TBILI -- -- -- -- 0.6 -- -- AST -- -- -- -- 88* -- -- ALT -- -- -- -- 30 -- -- PTSEC -- -- 12.6* -- 12.6* < > -- APTT -- -- -- -- 23.0 < > -- INR -- -- 1.23 -- 1.24 < > -- MG 2.6 < > 2.3 < > 1.8 -- -- < > = values in this interval not displayed. ABG: Recent Labs 02/10/18 0819 02/10/18 0547 02/09/182014 PH 7.392 7.385 7.267* PO2 79.1* 66.3* 85.4 PCO2 39.3 39.4 48.2* CULTURES: Sputum: No growth to date and Few GNB on culture. 02/08 Nasal swab--NO MRSA CXR FINDINGS: New bilateral mid-lung infiltrates +/- left base/atelectasis. Assessment/Plan PROBLEMS: ACTIVE PROBLEM LIST Inguinal Hernia Without Mention of Obstruction Or Gangrene, Unilateral Or Unspecified, (Not Specified As Recurrent) Nstemi (Non-St Elevated Myocardial Infarction) ([facility]) Nsvt (Nonsustained Ventricular Tachycardia) ([facility]) Nicotine use disorder, F17.2 1. VDRF secondary to severe COPD with bronchospasm. Hypoxia improving. 2. ?Developing bilateral infiltrates vs atelectasis--low-grade fever and WBC up with purulent secretions. 3. Mild GRIFFIN 4. POD#2 CABG x 3 5. PAFib--Amiodarone off due to pauses 6. Mild anemia 7. Mild thrombocytopenia--105 PLANS FOR TODAY: CRITICAL CARE PLAN: Antibiotics , Bronchodilators , Tube feedings, Ventilatory support and Weaning Start empiric ATBx and await sputum culture results Try trickle tube feeds. Dietary to see. ?Lovenox or SQ Heparin Protonix continues Chest tubes per CT Surgery Mg level. This patient has a high probability of sudden, clinically significant deterioration, which requires the highest level of physician preparedness to intervene urgently. I managed/supervised life or organ supporting interventions that required frequent physician assessment. I devoted my full attention to the direct care of this patient for the amount of time indicated below. Time I spent with family or surrogate(s) is included only if the patient was incapable of providing the necessary information or participating in medical decision making. Time devoted to teaching is not included. Patient Updated Yes Family Updated Yes--discussed with sister at bedside. Discussed with Staff Yes Time spent providing critical care services: 35 minutes excluding procedures. SIGNATURE: Elkin Zuleta MD PATIENT NAME: Jeffrey Cullen DATE: February 11, 2018 TIME: 9:12 AM PAGER/CONTACT #: [phone] GLUCOSE METER Collected: 02/11/2018 Status: F Source: [facility] 8:12 AM HEALTH SYSTEM REPOSITORY TYPE CODE TESTS RESULT OUT OF REFERENCE UNITS RANGE LAB GLUBL(LOINC 70-99 mg/dL ) Glucose Meter 95 Result Comment: RN NOTIFIED Performed By: #### GLMET #### [place] [address] GLUCOSE METER Collected: 02/11/2018 Status: F Source: [facility] 7:23 AM HEALTH SYSTEM REPOSITORY TYPE CODE TESTS RESULT OUT OF REFERENCE UNITS RANGE LAB GLUBL(LOINC 70-99 mg/dL ) Glucose Meter 92 Result Comment: RN NOTIFIED Performed By: #### GLMET #### [facility] [address] [place] [address] PROGRESS Observed: 02/11/2018 Status: COMPLETED Source: [place] 6:35 AM CLINIC OTHER CAMPUS REPOSITORY HNO ID: [id number] Author: Paulette (Rn) RAINA Garibay Service: Critical Care Author Type: Registered Nurse Type: Progress Notes Filed: 02/11/2018 6:37 AM Note Text: 0610 pt had a 3 second pause, followed by 1 perfused beat, followed by a 4 second pause (paper strip in chart). RN connected pacer wires and V-paced pt. Heart rhythm went back into RVR with intermittent paced beats. Dr. Parkinson notified. See new orders. CHEST 1 VIEW Observed: 02/11/2018 Status: F Source: [facility] 5:07 AM HEALTH SYSTEM REPOSITORY Performed at [facility] APPROVED BY: ELAINE SWEENEY MD EXAM TITLE: PORTABLE AP/PA CHEST X RAY DATE: 02/11/2018 05:03 COMPARISON: 02/10/2018 CLINICAL INDICATION/HISTORY: Status post CABG ENCOUNTER: Not applicable TECHNIQUE: Single portable AP/PA radiograph of the chest RESULT: Evaluation limited, due to poor penetration. Lines, tubes, and devices: There appears to have been interval proximal repositioning of the enteric tube with tip overlying the superior aspect of the esophagus. Again demonstrated is endotracheal tube, tube tip proximally 4.8 cm above the nelda. Again noted is right internal jugular central venous sheath and Mccaskill-Daphne catheter, the catheter tip appears to be called in the region of the distal main/left main pulmonary artery. No significant interval change regarding orientation of left- sided thoracostomy tube with tip overlying the mid aspect of the left lung. Lungs and pleura: Low lung volumes, likely related to poor inspiratory result. Mixed interstitial and airspace opacities are noted at the right mid as well as the left mid and lower lung zones, possibly related atelectasis or consolidation. Cardiomediastinal silhouette: Mildly enlarged cardiac silhouette, unchanged. Status post median sternotomy, wires are intact. Postsurgical changes from coronary artery bypass graft. Other: Osseous structures and soft tissues grossly intact. IMPRESSION: Examination limited, due to poor x-ray penetration, however suspect that there is been interval proximal displacement of the indwelling enteric tube. Further evaluation with dedicated abdominal x-ray e xamination would be useful. Again demonstrated is coiling of the Mccaskill-Daphne catheter in the region of the distal main/proximal left main pulmonary artery. Mixed images from airspace opacities at the right mid and left mid and lower lung zones, possibly related atelectasis or consolidation. Little interval change regarding mildly enlarged cardiac silhouette. BASIC PANEL Collected: 02/11/2018 Status: F Source: [facility] 4:20 AM HEALTH SYSTEM REPOSITORY TYPE CODE TESTS RESULT OUT OF REFERENCE UNITS RANGE LAB NA(LOINC) 136-145 mEq/L Sodium Blood 142 LAB K(LOINC) 3.5-5.1 mEq/L Potassium Blood 4.3 LAB CL(LOINC) 98-107 mEq/L Chloride High Blood 112 LAB CO2(LOINC) 21-32 mEq/L CO2 Blood 25 LAB GLU(LOINC) 70-99 mg/dL Glucose High Blood 104 LAB BUN(LOINC) 7-18 mg/dL BUN High Blood 25 LAB CREA(LOINC 0.67-1.17 mg/dL ) High Creatinine Blood 1.34 LAB CA(LOINC) 8.5-10.1 mg/dL Low Calcium Blood 8.3 LAB ANGAP(LOIN 8-16 C) Anion Gap 9 Performed By: #### P8 #### [facility] [address] [place] [address] MAGNESIUM BLOOD Collected: 02/11/2018 Status: F Source: [facility] 4:20 AM HEALTH SYSTEM REPOSITORY TYPE CODE TESTS RESULT OUT OF REFERENCE UNITS RANGE LAB MAG(LOINC) 1.6-2.6 mg/dL Magnesium Blood 2.6 Performed By: #### MAG #### [facility] [address] [place] [address] MDRD GFR Collected: 02/11/2018 Status: F Source: [facility] 4:20 AM HEALTH SYSTEM REPOSITORY TYPE CODE TESTS RESULT OUT OF RANGE REFERENCE UNITS LAB GFRFN(LOINC >60mL/min/1.73m ) 2 eGFR 52.89 Result Comment: If the patient is , multiply the result by 1.210. Performed By: #### GFR #### [facility] [address] [place] [address] HEMOGRAM Collected: 02/11/2018 Status: F Source: [facility] 4:20 AM HEALTH SYSTEM REPOSITORY TYPE CODE TESTS RESULT OUT OF REFERENCE UNITS RANGE LAB WBC(LOINC) 4.23-9.07 thou/cmm High WBC 15.13 LAB RBC(LOINC) 4.63-6.08 mil/cmm Low RBC 3.37 LAB HGB(LOINC) 13.7-17.5 g/dL Low Hgb 10.9 LAB HCT(LOINC) 40.1-51.0 % Low Hct 33.3 LAB MCV(LOINC) 83.2-95.6 fl High MCV 98.8 LAB MCH(LOINC) 25.7-32.2 pg High MCH 32.3 LAB MCHC(LOINC) 32.3-36.5 % MCHC 32.7 LAB RDW(LOINC) 11.6-14.4 % RDW 14.0 LAB RDWSD(LOINC 36.1-45.8 fl ) High RDW SD 51.7 LAB PLT(LOINC) 141-365 thou/cmm Low Platelet 105 LAB MPV(LOINC) 8.7-12.0 fl MPV 10.4 Performed By: #### CBC1 #### [facility] [address] [address] PHOSPHORUS BLOOD Collected: 02/11/2018 Status: F Source: [facility] 4:20 AM HEALTH SYSTEM REPOSITORY TYPE CODE TESTS RESULT OUT OF REFERENCE UNITS RANGE LAB PHOS(LOINC 2.5-4.9 mg/dL ) Phosphorus Blood 3.6 Performed By: #### PHOS #### [facility] [address] [address] GLUCOSE METER Collected: 02/11/2018 Status: F Source: [facility] 4:19 AM HEALTH SYSTEM REPOSITORY TYPE CODE TESTS RESULT OUT OF REFERENCE UNITS RANGE LAB GLUBL(LOINC 70-99 mg/dL ) High Glucose Meter 105 Result Comment: RN NOTIFIED Performed By: #### GLMET #### [facility] [address] [address] GLUCOSE METER Collected: 02/11/2018 Status: F Source: [facility] 2:28 AM HEALTH SYSTEM REPOSITORY TYPE CODE TESTS RESULT OUT OF REFERENCE UNITS RANGE LAB GLUBL(LOINC 70-99 mg/dL ) High Glucose Meter 110 Result Comment: RN NOTIFIED Performed By: #### GLMET #### [facility] [address] [address] GLUCOSE METER Collected: 02/11/2018 Status: F Source: [facility] 12:48 AM HEALTH SYSTEM REPOSITORY TYPE CODE TESTS RESULT OUT OF REFERENCE UNITS RANGE LAB GLUBL(LOINC 70-99 mg/dL ) High Glucose Meter 123 Result Comment: RN NOTIFIED Performed By: #### GLMET #### [facility] [address] [address] GLUCOSE METER Collected: 02/10/2018 Status: F Source: [facility] 9:49 PM HEALTH SYSTEM REPOSITORY TYPE CODE TESTS RESULT OUT OF REFERENCE UNITS RANGE LAB GLUBL(LOINC 70-99 mg/dL ) Glucose Meter 89 Result Comment: RN NOTIFIED Performed By: #### GLMET #### [facility] [address] [address] GLUCOSE METER Collected: 02/10/2018 Status: F Source: [facility] 7:41 PM HEALTH SYSTEM REPOSITORY TYPE CODE TESTS RESULT OUT OF REFERENCE UNITS RANGE LAB GLUBL(LOINC 70-99 mg/dL ) Glucose Meter 97 Result Comment: RN NOTIFIED Performed By: #### GLMET #### [facility] [address] [address] GLUCOSE METER Collected: 02/10/2018 Status: F Source: [facility] 5:55 PM HEALTH SYSTEM REPOSITORY TYPE CODE TESTS RESULT OUT OF REFERENCE UNITS RANGE LAB GLUBL(LOINC 70-99 mg/dL ) Glucose Meter 98 Result Comment: RN NOTIFIED Performed By: #### GLMET #### [facility] [address] [address] PROGRESS Observed: 02/10/2018 Status: COMPLETED Source: [place] 4:47 PM CLINIC OTHER CAMPUS REPOSITORY HNO ID: [id number] Author: Juan Cabral Service: Cardiovascular Medicine Author Type: Physician Type: Progress Notes Filed: 02/10/2018 4:47 PM Note Text: Result Noted. Patient is currently hospitalized and managed by the in-patient team. Juan Cabral MD GLUCOSE METER Collected: 02/10/2018 Status: F Source: [facility] 4:04 PM HEALTH SYSTEM REPOSITORY TYPE CODE TESTS RESULT OUT OF REFERENCE UNITS RANGE LAB GLUBL(LOINC 70-99 mg/dL ) Glucose Meter 88 Result Comment: RN NOTIFIED Performed By: #### GLMET #### [facility] [address] [address] IONIZED CALCIUM Collected: 02/10/2018 Status: F Source: [facility] 2:55 PM HEALTH SYSTEM REPOSITORY TYPE CODE TESTS RESULT OUT OF REFERENCE UNITS RANGE LAB CAION(LOINC 4.43-4.93 mg/dL ) Ionized 4.73 Calcium LAB PHCAI(LOINC 7.320-7.420 ) pH 7.377 LAB CAPH(LOINC) 4.36-4.73 mg/dL Ionized 4.67 Ca,PH7.4 Performed By: #### IONCA #### [facility] [address] [address] BASIC PANEL Collected: 02/10/2018 Status: F Source: [facility] 2:55 PM HEALTH SYSTEM REPOSITORY TYPE CODE TESTS RESULT OUT OF REFERENCE UNITS RANGE LAB NA(LOINC) 136-145 mEq/L Sodium Blood 143 LAB K(LOINC) 3.5-5.1 mEq/L Potassium Blood 4.0 LAB CL(LOINC) 98-107 mEq/L Chloride High Blood 113 LAB CO2(LOINC) 21-32 mEq/L CO2 Blood 26 LAB GLU(LOINC) 70-99 mg/dL Glucose Blood 97 LAB BUN(LOINC) 7-18 mg/dL BUN Blood 17 LAB CREA(LOINC 0.67-1.17 mg/dL ) Creatinine Blood 1.01 LAB CA(LOINC) 8.5-10.1 mg/dL Low Calcium Blood 8.1 LAB ANGAP(LOIN 8-16 C) Anion Gap 8 Performed By: #### P8 #### [facility] [address] [address] MAGNESIUM BLOOD Collected: 02/10/2018 Status: F Source: [facility] 2: PM HEALTH SYSTEM REPOSITORY TYPE CODE TESTS RESULT OUT OF REFERENCE UNITS RANGE LAB MAG(LOINC) 1.6-2.6 mg/dL Magnesium Blood 2.5 Performed By: #### MAG #### [place] [address] PHOSPHORUS BLOOD Collected: 02/10/2018 Status: F Source: [facility] 2: PM HEALTH SYSTEM REPOSITORY TYPE CODE TESTS RESULT OUT OF REFERENCE UNITS RANGE LAB PHOS(LOINC 2.5-4.9 mg/dL ) Phosphorus Blood 2.6 Performed By: #### PHOS #### [place] [address] MDRD GFR Collected: 02/10/2018 Status: F Source: [facility] 2: PM HEALTH SYSTEM REPOSITORY TYPE CODE TESTS RESULT OUT OF RANGE REFERENCE UNITS LAB GFRFN(LOINC >60mL/min/1.73m ) 2 eGFR >60 Result Comment: If the patient is , multiply the result by 1.210. Performed By: #### GFR #### [place] [address] HEMOGRAM/DIFF Collected: 02/10/2018 Status: F Source: [facility] 2: PM HEALTH SYSTEM REPOSITORY TYPE CODE TESTS RESULT OUT OF REFERENCE UNITS RANGE LAB WBC(LOINC) 4.23-9.07 thou/cmm WBC High 14.16 LAB RBC(LOINC) 4.63-6.08 mil/cmm Low RBC 3.11 LAB HGB(LOINC) 13.7-17.5 g/dL Low Hgb 10.1 LAB HCT(LOINC) 40.1-51.0 % Low Hct 31.0 LAB MCV(LOINC) 83.2-95.6 fl MCV High 99.7 LAB MCH(LOINC) 25.7-32.2 pg MCH High 32.5 LAB MCHC(LOINC 32.3-36.5 % ) MCHC 32.6 LAB RDW(LOINC) 11.6-14.4 % RDW 13.8 LAB RDWSD(LOIN 36.1-45.8 fl C) RDW SD High 50.3 LAB PLT(LOINC) 141-365 thou/cmm Low Platelet 107 LAB MPV(LOINC) 8.7-12.0 fl MPV 10.1 LAB SEG(LOINC) % Seg Neutrophil 80.0 LAB IGRE(LOINC % ) Immature Grans 0.60 LAB LYMPH(LOIN % C) Lymphocyte 10.8 LAB MNO(LOINC) % Monocyte 8.5 LAB EOSIN(LOIN % C) Eosinophil 0.0 LAB BASO(LOINC % ) Basophil 0.1 Result Comment: Smear scanned; tech agrees with automated differential LAB SEGN(LOINC) 1.78-5.38 thou/cmm High Abs. Neut 11.33 LAB IGAB(LOINC) 0.00-0.05 thou/cmm High Abs Immature Grans 0.08 LAB LYMN(LOINC) 0.84-2.85 thou/cmm Abs. Lymph 1.53 LAB MONON(LOINC) 0.30-0.82 thou/cmm High Abs. Slope 1.20 LAB EOSN(LOINC) 0.04-0.54 thou/cmm Low Abs. Eosin 0.00 LAB BASON(LOINC) 0.01-0.08 thou/cmm Abs. Baso 0.01 Result Comment: Smear scanned; tech agrees with automated differential Performed By: #### CBCD1 #### [place] [id number] PROGRESS Observed: 02/10/2018 Status: COMPLETED Source: [place] 2:34 PM CLINIC OTHER CAMPUS REPOSITORY HNO ID: [id number] Author: Juan Cabral Service: Cardiovascular Medicine Author Type: Physician Type: Progress Notes Filed: 02/10/2018 2:34 PM Note Text: Result Noted. Patient is currently hospitalized and managed by the in-patient team. Juan Cabral MD GLUCOSE METER Collected: 02/10/2018 Status: F Source: [facility] 2:10 PM HEALTH SYSTEM REPOSITORY TYPE CODE TESTS RESULT OUT OF REFERENCE UNITS RANGE LAB GLUBL(LOINC 70-99 mg/dL ) High Glucose Meter 107 Result Comment: RN NOTIFIED Performed By: #### GLMET #### [facility] [address] [address] Observed: 02/10/2018 Status: F Source: [facility] CULT AND SMR 2:00 PM HEALTH SYSTEM RESPIRATORY REPOSITORY Test performed at [facility] Few normal oropharyngeal shannan Many Mixed shannan Moderate WBC ORGANISM: Klebsiella oxytoca (ID: 1) Few Performed By: #### C_RES #### [facility] [address] [address] PROGRESS Observed: 02/10/2018 Status: COMPLETED Source: [place] 1:00 PM CLINIC OTHER CAMPUS REPOSITORY HNO ID: [id number] Author: Clementine Owen Service: Cardiovascular Surgery Author Type: Nurse Practitioner Type: Progress Notes Filed: 02/10/2018 4:21 PM Note Text: CARDIOTHORACIC SURGERY POSTOP PROGRESS NOTE SERVICE DATE: 02/10/2018 SERVICE TIME: 13:00 Subjective S/P SURGERY: Procedure(s) (LRB): BYPASS GRAFT ARTERY CORONARY ON-PUMP THREE CORONARY VENOUS GRAFTS (N/A) DATE OF SURGERY: 02/09/2018 POSTOP DAY #1 LOS: 3 INTERVAL EVENTS / PERTINENT ROS: Remains intubated. Agitated at times per RN. On Epi and Ollie. Objective Admission Weight: 104.3 kg (229 lb 15 oz) BP 96/64 Pulse 78 Temp 37.6 ?C (99.7 ?F) Resp 22 Ht 180.3 cm (5' 10.98) Wt 108.3 kg (238 lb 12.1 oz) SpO2 96% BMI 33.32 kg/m2 Body surface area is 2.33 meters squared. Min/Max/Average Temperature AND Blood Pressure: Temp (24hrs), Av.4 ?C (99.3 ?F), Min:37.1 ?C (98.8 ?F), Max:37.7 ?C (99.9 ?F) Systolic (24hrs), Av , Min:96 , Max:130 Diastolic (24hrs), Av, Min:56, Max:77 Intake/Output Summary (Last 24 hours) at 02/10/18 1610 Last data filed at 02/10/18 1600 Gross per 24 hour Intake 2271 ml Output 2922 ml Net -651 ml Current Facility-Administered Medications: - Chlorhexidine Gluconate 0.12 % 15 mL (PERIDEX) - budesonide 0.5 mg/2 mL 1 mg (PULMICORT) - acetaminophen 650 mg tab(s) (TYLENOL) - aspirin 81 mg chewable tab(s) - insulin regular iv infusion 250 units in NaCl 0.9% 250 mL - AK CARD SURG NOMOGRAM - insulin regular human iv bolus 10 Units - dextrose 50% in water 25 mL syringe - potassium chloride iv piggyback 20 mEq in sterile water 100 mL - magnesium sulfate in water 2 g in sterile water 50 ml - NaCl 0.9% iv infusion - albuterol 2.5 mg /3 mL (0.083 %) 2.5 mg (PROVENTIL) - EPINEPHrine 4 mg in NaCl 0.9% 250 mL - niCARdipine 40 mg in NaCl 0.9% 200 mL infusion (CARDENE) - calcium chloride 1 g in D5W 100 mL - oxyCODONE-acetaminophen 5-325 mg 1-2 tablet (PERCOCET) - morphine 2-4 mg injection - pantoprazole 40 mg injection (PROTONIX) - ondansetron (PF) 4 mg injection (ZOFRAN) - ceFAZolin iv piggyback 2 g in D5W (iso-osmotic) 100 mL (ANCEF) - propofol infusion (DIPRIVAN) - ipratropium-albuterol 3 mL nebulizer solution (DUONEB) - PHENYLephrine 80 mg in D5W 250 mL (NEOSYNEPHRINE) - atorvastatin 40 mg tab(s) (LIPITOR) - 0.9% NaCl 3-5 mL TELEMETRY: normal sinus rhythm PHYSICAL EXAM: General Appearance: well developed, no distress and sedated on vent Skin: Midsternal incision dry AND intact. and SVG incisions dry AND intact. Lungs: decreased breath sounds and respiratory effort: normal Heart: regular rhythm, S1, S2 normal and pacing wires present Abdomen: soft and bowel sounds present Genitourinary: High intact, urine color is clear yellow Extremities: normal exam of the extremities Chest tubes intact to -20 cm suction with serosanguinous output Lines, Drains, and Airways Line Peripheral 02/07/18 1600 Admission to Hospital Short Right Antecubital 3 days Peripheral 02/08/18 0100 Short Right Arm 20 Gauge 2 days Peripheral 02/08/18 0700 Short Left Forearm 2 days Arterial Line 02/09/18 0830 Arterial Line Left Radial 1 day Central Line Double Lumen 02/09/18 0845 Non-tunneled Right Leg 1 day Peripheral 02/09/18 0820 Left Forearm 16 Gauge 1 day Drain Chest Tube 02/09/18 1200 Assessment Midline Anterior Mediastinal Tube #2 1 day Chest Tube 02/09/18 1200 Left Anterior Pleural Tube #1 1 day GI Feed/Drain 02/09/18 0800 Oral Gastric Midline 1 day Indwelling Urinary Catheter 02/09/18 0838 Temperature Monitoring 16 Fr 1 day Airway Airway Endotracheal Tube 02/09/18 0800 1 day DATA: Diagnostic tests reviewed for today's visit: Recent Labs 02/10/18 1455 02/10/18 0545 02/09/18 2015 02/09/18 1405 02/09/18 1252 02/09/18 0407 02/09/18 0123 02/08/18 1730 02/08/18 0500 02/08/18 0105 02/07/18 2243 HBA1C -- -- -- -- -- -- -- -- -- -- -- -- -- -- 5.1 RBC -- 3.38* -- 3.96* -- -- 4.45* -- -- -- 4.50* -- 4.70 < > -- WBC -- 14.31* -- 22.43* -- -- 8.26 -- -- -- 11.59* -- 10.39* < > -- HB -- 10.9* -- 13.1* -- -- 14.3 -- -- -- 14.5 -- 15.1 < > -- HCT -- 32.6* -- 38.7* 29* < > 42.8 -- -- -- 42.8 -- 43.4 < > -- PLT -- 112* -- 157 -- -- 187 -- -- -- 222 -- 202 < > -- INR -- 1.23 -- 1.24 -- -- -- -- -- -- -- -- 1.05 -- 1.10 APTT -- -- -- 23.0 -- -- -- 43.7* 25.8 < > -- -- 28.3 -- -- NA 143 144 143 142 144 < > 139 -- -- -- 137 < > -- -- -- K 4.0 3.9 3.9 4.3 4.0 < > 3.9 -- -- -- 4.2 < > -- -- -- CHLOR 113* 113* 113* 113* -- -- 108* -- -- -- 107 < > -- -- -- CO2 26 25 23 25 -- -- 26 -- -- -- 24 < > -- -- -- BUN 17 14 15 12 -- -- 12 -- -- -- 11 < > -- -- -- CREAT 1.01 0.93 1.01 0.96 -- -- 0.90 -- -- -- 0.85 < > -- -- -- GLUC 97 95 135* 161* -- -- 96 -- -- -- 109* < > -- -- -- ICAL 4.73 -- 4.64 -- -- -- -- -- -- -- -- -- -- -- -- CA 8.1* 7.7* 7.8* 7.9* -- -- 8.7 -- -- -- 8.5 < > -- -- -- MG 2.5 2.3 1.9 1.8 -- -- -- -- -- -- -- -- -- -- 2.3 P 2.6 -- -- -- -- -- -- -- -- -- 2.9 -- -- -- -- TPROT -- -- -- 5.2* -- -- -- -- -- -- -- -- -- -- -- TBILI -- -- -- 0.6 -- -- -- -- -- -- -- -- -- -- -- ALKPHOS -- -- -- 64 -- -- -- -- -- -- -- -- -- -- -- ALT -- -- -- 30 -- -- -- -- -- -- -- -- -- -- -- AST -- -- -- 88* -- -- -- -- -- -- -- -- -- -- -- ANION 8 10 11 8 -- -- 9 -- -- -- 10 < > -- -- -- MRSA -- -- -- -- -- -- -- -- -- -- -- -- No MRSA detected. -- -- < > = values in this interval not displayed. Recent Labs 02/10/18 0819 02/10/18 0547 02/09/18201402/09/18 1252 02/09/18 1217 02/09/18 1144 PH 7.392 7.385 7.267* < > 7.236* 7.372 7.415 PCO2 39.3 39.4 48.2* < > -- -- -- PO2 79.1* 66.3* 85.4 < > 93.0 168.0* 256.0* BE -1.3 -1.7 -5.5 < > -- -- -- HCO3 -- -- -- -- 21.1* 20.9* 23.7 < > = values in this interval not displayed. Assessment/Plan Acute NSTEMI s/p CABG x 3 -POD#1 -c/w ASA, statin. No BB until off pressors -Post thorax vest Anticipated acute pulmonary insufficiency s/p CTS 2/2 underlying COPD AND atelectasis -Vent management per pulmonary service Respiratory acidosis -Resolved Anticipated vasodilation s/p CTS -Weaning Epi and Ollie Leukocytosis, likely reactive -Trending down Hyperglycemia -Well controlled on Insulin gtt. Wean off. Chronic nicotine dependence -Needs reinforcement for cessation once extubated. Tests/Labs Ordered: 1. Chest X-ray 2. BMP 3. CBC SIGNATURE: Clementine Owen CNP PATIENT NAME: Jeffrey Cullen DATE: February 10, 2018 TIME: 4:10 PM PAGER/CONTACT #: [phone] [id number] PROGRESS Observed: 02/10/2018 Status: COMPLETED Source: [place] 12:45 PM CLINIC OTHER CAMPUS REPOSITORY HNO ID: [id number] Author: Elkin Zuleta Service: Critical Care Author Type: Physician Type: Progress Notes Filed: 02/10/2018 1:13 PM Note Text: MICU - PROGRESS NOTE SERVICE DATE: 02/10/2018 SERVICE TIME: 12:58 PM Admission Date: 02/07/2018 AGE: [age] year old LOS: 3 days Subjective REASON FOR ICU ADMISSION: Confusion and Delirium, COPD and S/P Surgery Sedated now with 40mcg/kg/min IV Diprivan. Family at bedside. VENT: PRVC-16 Vt-550ml P-5 PSV-10 FiO2 50% with SaO2 94% Ve-11.3l/min Objective VITAL SIGNS (last 24hrs min/max): Temp Av.3 ?C (99.2 ?F) Min: 36.8 ?C (98.2 ?F) Max: 37.6 ?C (99.7 ?F) Pulse Av.7 Min: 74 Max: 116 Arterial BP 1 Min: 70/39 Max: 163/83 Cuff BP Min: 99/61 Max: 151/104 Pain Score: 0/10 Vital signs reviewed. BP 103/67 Pulse 83 Temp (Src) 98.8 (Core) Resp 12 Ht 5' 10.984 (1.80m) Wt 238 lb 12.1 oz (108.3kg) SpO2 95% BMI 33.31 kg/(m2). Temp (24hrs), Av.3 ?C (99.2 ?F), Min:36.8 ?C (98.2 ?F), Max:37.6 ?C (99.7 ?F) NET FLUID BALANCE Intake/Output Summary (Last 24 hours) at 02/10/18 1258 Last data filed at 02/10/18 1200 Gross per 24 hour Intake 2331 ml Output 3123 ml Net -792 ml MEDICATIONS Current Facility-Administered Medications: Chlorhexidine Gluconate 0.12 % 15 mL (PERIDEX) 15 mL ORAL q 12 H acetaminophen 650 mg tab(s) (TYLENOL) 650 mg ORAL q 6 H PRN aspirin 81 mg chewable tab(s) 81 mg ORAL DAILY insulin regular iv infusion 250 units in NaCl 0.9% 250 mL - AK CARD SURG NOMOGRAM 0-12 Units/hr INTRAVENOUS CONTINUOUS insulin regular human iv bolus 10 Units 10 Units INTRAVENOUS PRN dextrose 50% in water 25 mL syringe 12.5 g INTRAVENOUS PRN dexmedetomidine 400 mcg in NaCl 0.9% 100 mL (PRECEDEX) 0.2- 0.7 mcg/kg/hr INTRAVENOUS CONTINUOUS potassium chloride iv piggyback 20 mEq in sterile water 100 mL 20 mEq INTRAVENOUS PRN magnesium sulfate in water 2 g in sterile water 50 ml 2 g INTRAVENOUS PRN(NO DISPENSE) NaCl 0.9% iv infusion 50 mL/hr INTRAVENOUS CONTINUOUS albumin (5%) 12.5 g infusion 12.5 g INTRAVENOUS PRN albuterol 2.5 mg /3 mL (0.083 %) 2.5 mg (PROVENTIL) 2.5 mg INHALATION q 2 H PRN EPINEPHrine 4 mg in NaCl 0.9% 250 mL 0.5-10 mcg/min INTRAVENOUS CONTINUOUS niCARdipine 40 mg in NaCl 0.9% 200 mL infusion (CARDENE) 5- 10 mg/hr INTRAVENOUS CONTINUOUS calcium chloride 1 g in D5W 100 mL 1 g INTRAVENOUS PRN(NO DISPENSE) oxyCODONE-acetaminophen 5-325 mg 1-2 tablet (PERCOCET) 1-2 tablet ORAL q 4 H PRN morphine 2-4 mg injection 2-4 mg INTRAVENOUS q 1 H PRN pantoprazole 40 mg injection (PROTONIX) 40 mg INTRAVENOUS DAILY (6 AM) ondansetron (PF) 4 mg injection (ZOFRAN) 4 mg INTRAVENOUS q 6 H PRN ceFAZolin iv piggyback 2 g in D5W (iso-osmotic) 100 mL (ANCEF) 2 g INTRAVENOUS q 6 HR propofol infusion (DIPRIVAN) 5-50 mcg/kg/min INTRAVENOUS CONTINUOUS ipratropium-albuterol 3 mL nebulizer solution (DUONEB) 3 mL INHALATION q 4 H budesonide 0.5 mg/2 mL 0.5 mg (PULMICORT) 0.5 mg INHALATION BID PHENYLephrine 80 mg in D5W 250 mL (NEOSYNEPHRINE) 10-100 mcg/min INTRAVENOUS CONTINUOUS atorvastatin 40 mg tab(s) (LIPITOR) 40 mg ORAL AT BEDTIME 0.9% NaCl 3-5 mL 3-5 mL INTRAVENOUS q 12 H Lines, Drains, and Airways Line Peripheral 02/07/18 1600 Admission to Hospital Short Right Antecubital 2 days Peripheral 02/08/18 0100 Short Right Arm 20 Gauge 2 days Peripheral 02/08/18 0700 Short Left Forearm 2 days Arterial Line 02/09/18 0830 Arterial Line Left Radial 1 day Central Line Double Lumen 02/09/18 0845 Non-tunneled Right Leg 1 day Peripheral 02/09/18 0820 Left Forearm 16 Gauge 1 day Drain Chest Tube 02/09/18 1200 Assessment Midline Anterior Mediastinal Tube #2 1 day Chest Tube 02/09/18 1200 Left Anterior Pleural Tube #1 1 day GI Feed/Drain 02/09/18 0800 Oral Gastric Midline 1 day Indwelling Urinary Catheter 02/09/18 0838 Temperature Monitoring 16 Fr 1 day Airway Airway Endotracheal Tube 02/09/18 0800 1 day PHYSICAL EXAM PERFORMED: HEENT: Oral Mucosa: Moist mucous membranes Feeding Tube: Yes. Orogastric tube Eyes: PERRLA Neck: Unremarkable; No adenopathy or JVD Cardiovascular: Regular rhythm Respiratory: Short coarse expiratory wheezes bilaterally. Sl better air movement compared to 02/09 Abdomen: Soft, Nontender and Positive bowel sounds Extremities: Edema- No Peripheral Pulses- Present all extremities Capillary Refill- less than 3 seconds Skin: Abnormalities- Multiple tattoos Neurologic: Sedated Respiratory/Nursing Documentation: O2 Therapy: Ventilator (02/10/181138) Invasive Ventilator Mode: Pressure Regulated Volume Control (02/10/181138) Set Ventilator Respiratory Rate (BPM): 16 (02/10/181138) Total Respiratory Rate (BPM): 24 (02/10/181138) Tidal Volume Set (mL): 550 (02/10/181138) Exhaled Tidal Volume (mL): 600 (02/10/181138) Minute Volume (L): 10.5 (02/10/18 113) Peak Inspiratory Pressure (cm H2O): 13 (02/10/181138) PEEP/CPAP (cm H2O): 5 (02/10/181138) HEMODYNAMIC DATA: NUTRITION: Enteral Feeds: No NPO DATA: Diagnostic tests reviewed for today's visit: Most recent labs and imaging results. LABS: Recent Labs 02/10/18 0545 02/09/18 1405 02/08/18 1210 TROPI -- -- -- -- 39.700* WBC 14.31* -- 22.43* < > -- RBC 3.38* -- 3.96* < > -- HB 10.9* -- 13.1* < > -- HCT 32.6* -- 38.7* < > -- MCV 96.4* -- 97.7* < > -- PLT 112* -- 157 < > -- GLUC 95 < > 161* < > -- BUN 14 < > 12 < > -- CREAT 0.93 < > 0.96 < > -- NA 144 < > 142 < > -- K 3.9 < > 4.3 < > -- CHLOR 113* < > 113* < > -- CO2 25 < > 25 < > -- TPROT -- -- 5.2* -- -- ALB -- -- 2.5* -- -- CA 7.7* < > 7.9* < > -- ALKPHOS -- -- 64 -- -- TBILI -- -- 0.6 -- -- AST -- -- 88* -- -- ALT -- -- 30 -- -- PTSEC 12.6* -- 12.6* -- -- APTT -- -- 23.0 < > -- INR 1.23 -- 1.24 -- -- MG 2.3 < > 1.8 -- -- < > = values in this interval not displayed. ABG: Recent Labs 02/10/18 0819 02/10/18 0547 02/09/182014 PH 7.392 7.385 7.267* PO2 79.1* 66.3* 85.4 PCO2 39.3 39.4 48.2* CULTURES: Other: No MRSA Final- no growth on 02/08 nasal swab CXR FINDINGS: 02/10: The lungs are grossly clear. ? IMPRESSION: ? Stable postoperative changes. ?Note is made that the Mccaskill- Daphne catheter appears coiled in the pulmonary outflow tract. Assessment/Plan PROBLEMS: ACTIVE PROBLEM LIST Inguinal Hernia Without Mention of Obstruction Or Gangrene, Unilateral Or Unspecified, (Not Specified As Recurrent) Nstemi (Non-St Elevated Myocardial Infarction) (Hcc) Nsvt (Nonsustained Ventricular Tachycardia) (Hcc) Nicotine use disorder, F17.2 1. Anticipated post-op respiratory insufficiency 2. COPD exacerbation with bronchospasm. 3. Tobacco use disorder 4. Mild anemia--Hgb 10.9gm 5. Mild thrombocytopenia 6. Post-op delirium--quiescent with Propofol. 7. Leukocytosis improving. PLANS FOR TODAY: CRITICAL CARE PLAN: Bronchodilators , Vasopressors, Tube feedings, Ventilatory support , Weaning , Replace electrolytes and inhaled steroids. Increase budesonide to 1mg dosing. Not ready for extubation due to bronchopasm. Start tube feeds. Will discuss with Dr. Marin about systemic steroids for COPD This patient has a high probability of sudden, clinically significant deterioration, which requires the highest level of physician preparedness to intervene urgently. I managed/supervised life or organ supporting interventions that required frequent physician assessment. I devoted my full attention to the direct care of this patient for the amount of time indicated below. Time I spent with family or surrogate(s) is included only if the patient was incapable of providing the necessary information or participating in medical decision making. Time devoted to teaching is not included. Patient Updated Yes Family Updated Yes Discussed with Staff Yes Time spent providing critical care services: 35 minutes excluding procedures. SIGNATURE: Elkin Zuleta MD PATIENT NAME: Jeffrey Cullen DATE: February 10, 2018 TIME: 12:58 PM PAGER/CONTACT #: [phone] PROGRESS Observed: 02/10/2018 Status: COMPLETED Source: [place] 12:43 PM [facility] REPOSITORY HNO ID: [id number] Author: Juan Cabral Service: Cardiovascular Medicine Author Type: Physician Type: Progress Notes Filed: 02/10/2018 12:43 PM Note Text: Result Noted. Patient is currently hospitalized and managed by the in-patient team. Juan Cabral MD CASE MGT INIT Observed: 02/10/2018 Status: COMPLETED Source: [facility] 12:39 PM [facility] REPOSITORY HNO ID: [id number] Author: Ale (Rn) RAINA Key Service: (none) Author Type: Registered Nurse Type: Care Mgt Initial Assessment Filed: 02/10/2018 1:07 PM Note Text: CARE MANAGEMENT: ASSESSMENT AND DISCHARGE PLAN SERVICE DATE: 02/10/2018 SERVICE TIME: 12:39 PM PRIMARY CARE PHYSICIAN: Richie De La Torre DO ADMISSION STATUS: Inpatient Needs Prior to Discharge: OT/PT Evaluation;Discharge Transportation;Accepting Facility MEDICAL: Patient/Rn Spine Stated Goals: sister trev here from [place] until 02/15 anticipate snf at [facility] Health Insurance: MEDICARE A AND B [employer] Issues Impacting Discharge Plan: None Last Admission Date: none Is this Within the Past 30 days? No Advance Directive: Health Literacy: 1. How often do you need to have someone help you when you read instructions, pamphlets, or other written material from your doctor or pharmacy? Never - 1 2. How confident are you filling out medical forms by yourself? Extremely - 1 If Patient scores > 3 on either question, the following interventions were put into place: Patient did not score > 3 FUNCTIONAL AND COGNITIVE/BEHAVIORAL PRIOR TO ADMISSION: Baseline Mental Status: Alert AND Oriented, Person, Place , Time and Situation Functional Status: Independent Does Patient Currently Receive Any Community Services or Home Care? None Equipment Prior to Admission: None Has the Patient Been in a [facility] Facility in the Past 30 days? No SOCIAL: Living Arrangement: Home Lives With: Alone Financial Resources: Retired Primary Contact: Extended Emergency Contact Information Primary Emergency Contact: Trev Carmen Relation: Sister Supportive: Yes Other Important Patient Contacts: None Caregiver Assessment: Caregiver is ready, willing and able to meet the patient's needs as recommended by the inter-professional team? sister returning to [facility] next tue--no other family Patient's transition needs and plan for meeting these needs: extubate Does the patient have an acute stroke diagnosis, or has the patient had a stroke during this admission? No Medication Adherence: I am convinced of the importance of my prescription medication: Agree completely - 0 I worry that my prescription medication will do more harm than good to me Disagree mostly - 0 I feel financially burdened by my [id number]-gftiad expenses for my prescription medication: Agree completely - 2 Patient is categorized as medium risk score 2-7: The following interventions are being put into place - sister reports expensive inhalers *follow for new neds ?pharm conc Are you interested in bedside delivery of your medications? No Food Concerns: In the Last Month, Have You had Trouble Getting Food? No trouble getting food During the Last Month, Have You Worried Whether Your Food Would Run Out Before You Had Enough Money to Buy More? No Is the Patient Psychosocially Complex? No ASSESSMENT AND PLAN: Medical Needs: None Psychosocial Needs: None FREEDOM OF CHOICE EXPLAINED: N/A sister and he had prev discussed [facility] plan to [place] [facility] POTENTIAL TRANSITION PLANS [facility]ci Facility/Intermediate Care Facility To Be Determined Met with pt's sister at bedside (in town from [place] through 02/15) NO other family. Prev discussed and now he will need rehab and would like to go to [facility]. Pt still intubated will follow up next week. Evals are ordered. PS tasked to follow SIGNATURE: Ale Key RN PATIENT NAME: Jeffrey Cullen DATE: February 10, 2018 TIME: 12:39 PM PAGER/CONT# [phone] THERAPY NT Observed: 02/10/2018 Status: COMPLETED Source: [place] 12:06 PM [facility] REPOSITORY HNO ID: [id number] Author: Nuria MoodyOtr/Miriam Young Service: Occupational Therapy Author Type: Occupational Therapist Type: Therapy (PT/OT/Speech/Resp) Filed: 02/10/2018 12:06 PM Note Text: OCCUPATIONAL THERAPY MISSED VISIT SERVICE DATE: 02/10/2018 SERVICE TIME: 1202 to 1202 ROOM: [place] [address] Attempted Evaluation. Patient not seen due to (s/p CABG 02/09 still intubated). SIGNATURE: HEATHER Pop/Fara PATIENT NAME: Jeffrey Cullen DATE: February 10, 2018 TIME: 12:06 PM PAGER/CONTACT #: GLUCOSE METER Collected: 02/10/2018 Status: F Source: [facility] 11:57 AM HEALTH SYSTEM REPOSITORY TYPE CODE TESTS RESULT OUT OF REFERENCE UNITS RANGE LAB GLUBL(LOINC 70-99 mg/dL ) High Glucose Meter 105 Result Comment: RN NOTIFIED Performed By: #### GLMET #### [facility] [address] [place] [address] THERAPY NT Observed: 02/10/2018 Status: COMPLETED Source: [place] 11:20 AM [facility] OTHER [place] REPOSITORY HNO ID: [id number] Author: Harpreet (PtKristin Hardin Service: Physical Therapy Author Type: Physical Therapist Type: Therapy (PT/OT/Speech/Resp) Filed: 02/10/2018 11:20 AM Note Text: PHYSICAL THERAPY MISSED VISIT SERVICE DATE: 02/10/2018 SERVICE TIME: 1119 to 1120 ROOM: [id number] Attempted Evaluation. Patient not seen due to Illness (Intubated). SIGNATURE: Harpreet Hardin PT PATIENT NAME: Jeffrey Cullen DATE: February 10, 2018 TIME: 11:20 AM PAGER/CONTACT #: PROGRESS Observed: 02/10/2018 Status: COMPLETED Source: [place] 10:27 AM [facility] REPOSITORY HNO ID: [id number] Author: Juan Cabral Service: Cardiovascular Medicine Author Type: Physician Type: Progress Notes Filed: 02/10/2018 10:27 AM Note Text: Result Noted. Patient is currently hospitalized and managed by the in-patient team. Juan Cabral MD GLUCOSE METER Collected: 02/10/2018 Status: F Source: [facility] 10:14 AM HEALTH SYSTEM REPOSITORY TYPE CODE TESTS RESULT OUT OF REFERENCE UNITS RANGE LAB GLUBL(LOINC 70-99 mg/dL ) High Glucose Meter 104 Result Comment: RN NOTIFIED Performed By: #### GLMET #### [place] [address] PROGRESS Observed: 02/10/2018 Status: COMPLETED Source: [place] 10:12 AM [facility] REPOSITORY HNO ID: [id number] Author: Juan Cabral Service: Cardiovascular Medicine Author Type: Physician Type: Progress Notes Filed: 02/10/2018 10:12 AM Note Text: Result Noted. Patient is currently hospitalized and managed by the in-patient team. Juan Cabral MD GLUCOSE METER Collected: 02/10/2018 Status: F Source: [facility] 9:10 AM [facility] SYSTEM REPOSITORY TYPE CODE TESTS RESULT OUT OF REFERENCE UNITS RANGE LAB GLUBL(LOINC 70-99 mg/dL ) High Glucose Meter 112 Result Comment: RN NOTIFIED Performed By: #### GLMET #### [place] [address] PROGRESS Observed: 02/10/2018 Status: COMPLETED Source: [place] 8:38 AM [facility] REPOSITORY HNO ID: [id number] Author: Juan Cabral Service: Cardiovascular Medicine Author Type: Physician Type: Progress Notes Filed: 02/10/2018 8:38 AM Note Text: Result Noted. Patient is currently hospitalized and managed by the in-patient team. Juan Cabral MD BLOOD GAS ARTERIAL Collected: 02/10/2018 Status: F Source: [facility] 8:19 AM HEALTH SYSTEM REPOSITORY TYPE CODE TESTS RESULT OUT OF REFERENCE UNITS RANGE LAB TEMPA(LOIN C) Temperature 37.4 LAB PH(LOINC) 7.350-7.450 pH Arterial 7.392 LAB PCO2(LOINC 36.0-46.0 mm Hg ) PCO2 Arterial 39.3 LAB PO2(LOINC) 85.0-96.0 mm Hg Low PO2 Arterial 79.1 LAB HCO3A(LOIN 22.0-26.0 mEq/L C) HCO3- 23.3 LAB O2%A(LOINC 95.0-98.0 % ) O2% Sat Arterial 96.1 LAB BASEX(LOIN -2.5 to 2.5 mEq/L C) Base Excess -1.3 LAB FIO2(LOINC % ) FIO2 50 Performed By: #### ABG #### [place] [address] GLUCOSE METER Collected: 02/10/2018 Status: F Source: [facility] 7:46 AM HEALTH SYSTEM REPOSITORY TYPE CODE TESTS RESULT OUT OF REFERENCE UNITS RANGE LAB GLUBL(LOINC 70-99 mg/dL ) High Glucose Meter 101 Result Comment: RN NOTIFIED Performed By: #### GLMET #### [place] [address] CHEST 1 VIEW Observed: 02/10/2018 Status: F Source: [facility] 6:17 AM HEALTH SYSTEM REPOSITORY Performed at [facility] APPROVED BY: Efren Benson MD EXAM TITLE: CHEST 1 VIEW DATE: 02/10/2018 06:03 INDICATION: Status post coronary artery bypass graft. COMPARISON: 02/09/2018 at 1420 Portable frontal view of the chest shows tip of endotracheal tube at the level of the aortic arch. An enteric tube is seen passing into the stomach. A right internal jugular Mccaskill-Daphne catheter is noted. It is presently looped in the pulmonary outflow tract. There is left-sided chest tube overlying the left midlung. Heart size is normal and stable. Intact median sternotomy wires. The lungs are grossly clear. IMPRESSION: Stable postoperative changes. Note is made that the Mccaskill- Daphne catheter appears coiled in the pulmonary outflow tract. BLOOD GAS ARTERIAL Collected: 02/10/2018 Status: F Source: [facility] 5:47 AM HEALTH SYSTEM REPOSITORY TYPE CODE TESTS RESULT OUT OF REFERENCE UNITS RANGE LAB FIO2(LOINC % ) FIO2 40 LAB TEMPA(LOIN C) Temperature 37.3 LAB PH(LOINC) 7.350-7.450 pH Arterial 7.385 LAB PCO2(LOINC 36.0-46.0 mm Hg ) PCO2 Arterial 39.4 LAB PO2(LOINC) 85.0-96.0 mm Hg Low PO2 Arterial 66.3 LAB HCO3A(LOIN 22.0-26.0 mEq/L C) HCO3- 23.0 LAB O2%A(LOINC 95.0-98.0 % ) Low O2% Sat Arterial 93.6 LAB BASEX(LOIN -2.5 to 2.5 mEq/L C) Base Excess -1.7 Performed By: #### ABG #### [facility] [address] [place] [address] HEMOGRAM Collected: 02/10/2018 Status: F Source: [facility] 5:45 AM HEALTH SYSTEM REPOSITORY TYPE CODE TESTS RESULT OUT OF REFERENCE UNITS RANGE LAB WBC(LOINC) 4.23-9.07 thou/cmm High WBC 14.31 LAB RBC(LOINC) 4.63-6.08 mil/cmm Low RBC 3.38 LAB HGB(LOINC) 13.7-17.5 g/dL Low Hgb 10.9 LAB HCT(LOINC) 40.1-51.0 % Low Hct 32.6 LAB MCV(LOINC) 83.2-95.6 fl High MCV 96.4 LAB MCH(LOINC) 25.7-32.2 pg MCH 32.2 LAB MCHC(LOINC) 32.3-36.5 % MCHC 33.4 LAB RDW(LOINC) 11.6-14.4 % RDW 13.8 LAB RDWSD(LOINC 36.1-45.8 fl ) High RDW SD 49.4 LAB PLT(LOINC) 141-365 thou/cmm Low Platelet 112 LAB MPV(LOINC) 8.7-12.0 fl MPV 10.0 Performed By: #### CBC1 #### [facility] [address] [place] [address] PROTIME Collected: 02/10/2018 Status: F Source: [facility] 5:45 AM HEALTH SYSTEM REPOSITORY TYPE CODE TESTS RESULT OUT OF REFERENCE UNITS RANGE LAB PTI(LOINC) 9.3-11.9 sec Prothrombin High Time 12.6 LAB INR(LOINC) INR 1.23 Result Comment: Standard Therapy 2.0-3.0 High Dose 2.5-3.5 Performed By: #### PT #### [place] [address] BASIC PANEL Collected: 02/10/2018 Status: F Source: [facility] 5:45 AM HEALTH SYSTEM REPOSITORY TYPE CODE TESTS RESULT OUT OF REFERENCE UNITS RANGE LAB NA(LOINC) 136-145 mEq/L Sodium Blood 144 LAB K(LOINC) 3.5-5.1 mEq/L Potassium Blood 3.9 LAB CL(LOINC) 98-107 mEq/L Chloride High Blood 113 LAB CO2(LOINC) 21-32 mEq/L CO2 Blood 25 LAB GLU(LOINC) 70-99 mg/dL Glucose Blood 95 LAB BUN(LOINC) 7-18 mg/dL BUN Blood 14 LAB CREA(LOINC 0.67-1.17 mg/dL ) Creatinine Blood 0.93 LAB CA(LOINC) 8.5-10.1 mg/dL Low Calcium Blood 7.7 LAB ANGAP(LOIN 8-16 C) Anion Gap 10 Performed By: #### P8 #### [place] [address] MAGNESIUM BLOOD Collected: 02/10/2018 Status: F Source: [facility] 5:45 AM HEALTH SYSTEM REPOSITORY TYPE CODE TESTS RESULT OUT OF REFERENCE UNITS RANGE LAB MAG(LOINC) 1.6-2.6 mg/dL Magnesium Blood 2.3 Performed By: #### MAG #### [place] [address] MDRD GFR Collected: 02/10/2018 Status: F Source: [facility] 5:45 AM HEALTH SYSTEM REPOSITORY TYPE CODE TESTS RESULT OUT OF RANGE REFERENCE UNITS LAB GFRFN(LOINC >60mL/min/1.73m ) 2 eGFR >60 Result Comment: If the patient is , multiply the result by 1.210. Performed By: #### GFR #### [place] [address] GLUCOSE METER Collected: 02/10/2018 Status: F Source: [facility] 5:35 AM HEALTH SYSTEM REPOSITORY TYPE CODE TESTS RESULT OUT OF REFERENCE UNITS RANGE LAB GLUBL(LOINC 70-99 mg/dL ) High Glucose Meter 106 Result Comment: RN NOTIFIED Performed By: #### GLMET #### [facility] [address] [place] [address] GLUCOSE METER Collected: 02/10/2018 Status: F Source: [facility] 3:23 AM HEALTH SYSTEM REPOSITORY TYPE CODE TESTS RESULT OUT OF REFERENCE UNITS RANGE LAB GLUBL(LOINC 70-99 mg/dL ) High Glucose Meter 107 Result Comment: RN NOTIFIED Performed By: #### GLMET #### [facility] [address] [place] [address] GLUCOSE METER Collected: 02/10/2018 Status: F Source: [facility] 1:11 AM HEALTH SYSTEM REPOSITORY TYPE CODE TESTS RESULT OUT OF REFERENCE UNITS RANGE LAB GLUBL(LOINC 70-99 mg/dL ) High Glucose Meter 121 Result Comment: RN NOTIFIED Performed By: #### GLMET #### [facility] [address] [place] [address] GLUCOSE METER Collected: 02/09/2018 Status: F Source: [facility] 11:00 PM HEALTH SYSTEM REPOSITORY TYPE CODE TESTS RESULT OUT OF REFERENCE UNITS RANGE LAB GLUBL(LOINC 70-99 mg/dL ) High Glucose Meter 102 Result Comment: RN NOTIFIED Performed By: #### GLMET #### [facility] [address] [place] [address] GLUCOSE METER Collected: 02/09/2018 Status: F Source: [facility] 9:10 PM HEALTH SYSTEM REPOSITORY TYPE CODE TESTS RESULT OUT OF REFERENCE UNITS RANGE LAB GLUBL(LOINC 70-99 mg/dL ) High Glucose Meter 119 Performed By: #### GLMET #### [facility] [address] [place] [address] O2% MEASURED VENOUS Collected: 02/09/2018 Status: F Source: [facility] 8:33 PM HEALTH SYSTEM REPOSITORY TYPE CODE TESTS RESULT OUT OF REFERENCE UNITS RANGE LAB O2%MV(LOINC 70.0-80.0 % ) O2% Measured 70.9 Venous Performed By: #### O2%MV #### [facility] [address] [place] [address] BLOOD GAS ARTERIAL Collected: 02/09/2018 Status: F Source: [facility] REPOSITORY TYPE CODE TESTS RESULT OUT OF REFERENCE UNITS RANGE LAB FIO2(LOINC % ) FIO2 40 LAB TEMPA(LOIN C) Temperature 37.6 LAB PH(LOINC) 7.350-7.450 Low pH Arterial 7.267 LAB PCO2(LOINC 36.0-46.0 mm Hg ) PCO2 High Arterial 48.2 LAB PO2(LOINC) 85.0-96.0 mm Hg PO2 Arterial 85.4 LAB HCO3A(LOIN 22.0-26.0 mEq/L C) Low HCO3- 21.3 LAB O2%A(LOINC 95.0-98.0 % ) O2% Sat Arterial 95.2 LAB BASEX(LOIN -2.5 to 2.5 mEq/L C) Base Excess -5.5 Performed By: #### ABG #### [place] [address] IONIZED CALCIUM Collected: 02/09/2018 Status: F Source: [address] [facility] REPOSITORY TYPE CODE TESTS RESULT OUT OF REFERENCE UNITS RANGE LAB CAION(LOINC 4.43-4.93 mg/dL ) Ionized 4.64 Calcium LAB PHCAI(LOINC 7.320-7.420 ) Low pH 7.276 LAB CAPH(LOINC) 4.36-4.73 mg/dL Low Ionized 4.35 Ca,PH7.4 Performed By: #### IONCA #### [place] [address] BASIC PANEL Collected: 02/09/2018 Status: F Source: [address] [facility] REPOSITORY TYPE CODE TESTS RESULT OUT OF REFERENCE UNITS RANGE LAB NA(LOINC) 136-145 mEq/L Sodium Blood 143 LAB K(LOINC) 3.5-5.1 mEq/L Potassium Blood 3.9 LAB CL(LOINC) 98-107 mEq/L Chloride High Blood 113 LAB CO2(LOINC) 21-32 mEq/L CO2 Blood 23 LAB GLU(LOINC) 70-99 mg/dL Glucose High Blood 135 LAB BUN(LOINC) 7-18 mg/dL BUN Blood 15 LAB CREA(LOINC 0.67-1.17 mg/dL ) Creatinine Blood 1.01 LAB CA(LOINC) 8.5-10.1 mg/dL Low Calcium Blood 7.8 LAB ANGAP(LOIN 8-16 C) Anion Gap 11 Performed By: #### P8 #### [facility] [address] [place] [address] MAGNESIUM BLOOD Collected: 02/09/2018 Status: F Source: [facility] 8:15 PM HEALTH SYSTEM REPOSITORY TYPE CODE TESTS RESULT OUT OF REFERENCE UNITS RANGE LAB MAG(LOINC) 1.6-2.6 mg/dL Magnesium Blood 1.9 Performed By: #### MAG #### [facility] [address] [place] [address] MDRD GFR Collected: 02/09/2018 Status: F Source: [facility] 8:15 PM HEALTH SYSTEM REPOSITORY TYPE CODE TESTS RESULT OUT OF RANGE REFERENCE UNITS LAB GFRFN(LOINC >60mL/min/1.73m ) 2 eGFR >60 Result Comment: If the patient is , multiply the result by 1.210. Performed By: #### GFR #### [facility] [address] [place] [address] OPERATIVE NO Observed: 02/09/2018 Status: COMPLETED Source: [place] 7:54 PM [facility] OTHER CAMPUS REPOSITORY O ID: [id number] Author: Efren Tesfaye MD Service: Anesthesiology Author Type: Physician Type: Anesthesia PostOp Filed: 02/09/2018 7:54 PM Note Text: POST ANESTHESIA EVALUATION NOTE SERVICE DATE: 02/09/2018 SERVICE TIME: 7:54 PM : 1949 Vitals: 02/09/18 0700 02/09/18 1536 02/09/18 1800 02/09/18 1848 Temp: 36.3 ?C (97.3 ?F) 36.8 ?C (98.2 ?F) 37.4 ?C (99.3 ?F) 37.4 ?C (99.3 ?F) 02/09/18 1725 02/09/18 1752 02/09/18 1800 02/09/18 1848 Arterial BP 1: 128/63 99/53 70/39 122/67 BP: 105/72 105/72 103/56 02/09/18 1725 02/09/18 1752 02/09/18 1800 02/09/18 184 Pulse: 101 101 102 102 02/09/18 1725 02/09/18 1752 02/09/18 1800 02/09/18 1848 Resp: 15 15 14 14 02/09/18 1700 02/09/18 1725 02/09/18 17502/09/18 1800 SpO2: 98% 100% 98% 96% Validated Vital Signs: Yes POST ANES STATUS: PACU/ICU Patient Condition: Stable Neurological Status: On intravenous sedation. Pulmonary Status: On invasive mechanical ventilation. Airway Control: Intubated on mechanical ventilation. Cardiovascular Status: Stable Pain: Adequately controlled Postoperative Nausea/Vomiting: No significant post operative nausea or vomiting Postoperative Hydration Status: Adequate. Anesthetic Complications: None Recommendation: Continue current plan of care Other Remarks: SIGNATURE: Efren Tesfaye MD PATIENT NAME: Jeffrey Cullen DATE: February 09, 2018 TIME: 7:54 PM PAGER/CONTACT #: [phone] ANES POST Observed: 02/09/2018 Status: COMPLETED Source: [place] 7:54 PM [facility] OTHER CAMPUS REPOSITORY HNO ID: [id number] Author: Efren Tesfaye MD Service: Anesthesiology Author Type: Physician Type: Anesthesia PostOp Filed: 02/09/2018 7:54 PM Note Text: POST ANESTHESIA EVALUATION NOTE SERVICE DATE: 02/09/2018 SERVICE TIME: 7:54 PM : 1949 Vitals: 02/09/18 0700 02/09/18 1536 02/09/18 1800 02/09/18 1848 Temp: 36.3 ?C (97.3 ?F) 36.8 ?C (98.2 ?F) 37.4 ?C (99.3 ?F) 37.4 ?C (99.3 ?F) 02/09/18 1725 02/09/18 17502/09/18 1800 02/09/18 184 Arterial BP 1: 128/63 99/53 70/39 122/67 BP: 105/72 105/72 103/56 02/09/18 1725 02/09/18 1752 02/09/18 1800 02/09/18 1848 Pulse: 101 101 102 102 02/09/18 1725 02/09/18 1752 02/09/18 1800 02/09/18 1848 Resp: 15 15 14 14 02/09/18 1700 02/09/18 1725 02/09/18 1752 02/09/18 1800 SpO2: 98% 100% 98% 96% Validated Vital Signs: Yes POST ANES STATUS: PACU/ICU Patient Condition: Stable Neurological Status: On intravenous sedation. Pulmonary Status: On invasive mechanical ventilation. Airway Control: Intubated on mechanical ventilation. Cardiovascular Status: Stable Pain: Adequately controlled Postoperative Nausea/Vomiting: No significant post operative nausea or vomiting Postoperative Hydration Status: Adequate. Anesthetic Complications: None Recommendation: Continue current plan of care Other Remarks: SIGNATURE: Efren Tesfaye MD PATIENT NAME: Jeffrey Cullen DATE: February 09, 2018 TIME: 7:54 PM PAGER/CONTACT #: [phone] GLUCOSE METER Collected: 02/09/2018 Status: F Source: [facility] 7:05 PM HEALTH SYSTEM REPOSITORY TYPE CODE TESTS RESULT OUT OF REFERENCE UNITS RANGE LAB GLUBL(LOINC 70-99 mg/dL ) High Glucose Meter 158 Result Comment: RN NOTIFIED Performed By: #### GLMET #### [facility] [address] [place] [address] GLUCOSE METER Collected: 02/09/2018 Status: F Source: [facility] 5:53 PM HEALTH SYSTEM REPOSITORY TYPE CODE TESTS RESULT OUT OF REFERENCE UNITS RANGE LAB GLUBL(LOINC 70-99 mg/dL ) High Glucose Meter 183 Result Comment: RN NOTIFIED Performed By: #### GLMET #### [place] [address] BLOOD GAS ARTERIAL Collected: 02/09/2018 Status: F Source: [facility] 5:38 PM HEALTH SYSTEM REPOSITORY TYPE CODE TESTS RESULT OUT OF REFERENCE UNITS RANGE LAB FIO2(LOINC % ) FIO2 70 LAB TEMPA(LOIN C) Temperature 37.0 LAB PH(LOINC) 7.350-7.450 Low pH Arterial 7.261 LAB PCO2(LOINC 36.0-46.0 mm Hg ) PCO2 High Arterial 47.4 LAB PO2(LOINC) 85.0-96.0 mm Hg PO2 High Arterial 113.4 LAB HCO3A(LOIN 22.0-26.0 mEq/L C) Low HCO3- 20.8 LAB O2%A(LOINC 95.0-98.0 % ) O2% Sat Arterial 97.6 LAB BASEX(LOIN -2.5 to 2.5 mEq/L C) Base Excess -6.2 Performed By: #### ABG #### [facility] [address] [place], [place] [address] PROGRESS Observed: 02/09/2018 Status: COMPLETED Source: [place] 5:37 PM [facility] REPOSITORY HNO ID: [id number] Author: Juan Cabral Service: Cardiovascular Medicine Author Type: Physician Type: Progress Notes Filed: 02/09/2018 5:37 PM Note Text: Result Noted. Patient is currently hospitalized and managed by the in-patient team. Juan Cabral MD GLUCOSE METER Collected: 02/09/2018 Status: F Source: [facility] 5:10 PM HEALTH SYSTEM REPOSITORY TYPE CODE TESTS RESULT OUT OF REFERENCE UNITS RANGE LAB GLUBL(LOINC 70-99 mg/dL ) High Glucose Meter 181 Performed By: #### GLMET #### [address] [address] PROGRESS Observed: 02/09/2018 Status: COMPLETED Source: [place] 4:35 PM [facility] REPOSITORY HNO ID: [id number] Author: Clementine Owen Service: Cardiovascular Surgery Author Type: Nurse Practitioner Type: Progress Notes Filed: 02/09/2018 4:49 PM Note Text: CARDIOTHORACIC SURGERY POSTOP PROGRESS NOTE SERVICE DATE: 02/09/2018 SERVICE TIME: 4:35 PM Subjective S/P SURGERY: Procedure(s) (LRB): BYPASS GRAFT ARTERY CORONARY ON-PUMP THREE CORONARY VENOUS GRAFTS (N/A) DATE OF SURGERY: 02/09/2018 POSTOP DAY #0 LOS: 2 INTERVAL EVENTS / PERTINENT ROS: Patient came out of OR on Epi. Woke up, agitated and restless. Not following commands but attempting to sit straight up in bed. Objective Admission Weight: 104.3 kg (229 lb 15 oz) BP 141/93 Pulse 107 Temp 36.8 ?C (98.2 ?F) (Temporal Artery) Resp 19 Ht 180.3 cm (5' 10.98) Wt 105.7 kg (233 lb 0.4 oz) SpO2 97% BMI 32.52 kg/m2 Body surface area is 2.3 meters squared. Min/Max/Average Temperature AND Blood Pressure: Temp (24hrs), Av.8 ?C (98.2 ?F), Min:36.3 ?C (97.3 ?F), Max:37.2 ?C (99 ?F) Systolic (24hrs), Av , Min:105 , Max:151 Diastolic (24hrs), Av, Min:56, Max:104 Intake/Output Summary (Last 24 hours) at 02/09/18 1635 Last data filed at 02/09/18 1600 Gross per 24 hour Intake 592 ml Output 1048 ml Net -456 ml Current Facility-Administered Medications: - acetaminophen 650 mg tab(s) (TYLENOL) - [START ON 02/10/2018] aspirin 81 mg chewable tab(s) - insulin regular iv infusion 250 units in NaCl 0.9% 250 mL - AK CARD SURG NOMOGRAM - insulin regular human iv bolus 10 Units - dextrose 50% in water 25 mL syringe - dexmedetomidine 400 mcg in NaCl 0.9% 100 mL (PRECEDEX) - potassium chloride iv piggyback 20 mEq in sterile water 100 mL - magnesium sulfate in water 2 g in sterile water 50 ml - NaCl 0.9% iv infusion - albumin (5%) 12.5 g infusion - albuterol 2.5 mg /3 mL (0.083 %) 2.5 mg (PROVENTIL) - EPINEPHrine 4 mg in NaCl 0.9% 250 mL - niCARdipine 40 mg in NaCl 0.9% 200 mL infusion (CARDENE) - calcium chloride 1 g in D5W 100 mL - oxyCODONE-acetaminophen 5-325 mg 1-2 tablet (PERCOCET) - morphine 2-4 mg injection - [START ON 02/10/2018] pantoprazole 40 mg injection (PROTONIX) - ondansetron (PF) 4 mg injection (ZOFRAN) - ceFAZolin iv piggyback 2 g in D5W (iso-osmotic) 100 mL (ANCEF) - propofol infusion (DIPRIVAN) - ipratropium-albuterol 3 mL nebulizer solution (DUONEB) - budesonide 0.5 mg/2 mL 0.5 mg (PULMICORT) - PHENYLephrine 80 mg in D5W 250 mL (NEOSYNEPHRINE) - atorvastatin 40 mg tab(s) (LIPITOR) - 0.9% NaCl 3-5 mL TELEMETRY: sinus tachycardia PHYSICAL EXAM: General Appearance: well developed and restless Skin: Midsternal incision dry AND intact. and SVG incisions dry AND intact. Lungs: decreased breath sounds and respiratory effort: normal Heart: regular rhythm, S1, S2 normal and pacing wires present Abdomen: soft and bowel sounds present Genitourinary: High intact, urine color is clear yellow Extremities: normal exam of the extremities Chest tubes intact to -20 cm suction with bloody output Lines, Drains, and Airways Line Peripheral 02/07/18 1600 Admission to Hospital Short Right Antecubital 2 days Peripheral 02/08/18 0100 Short Right Arm 20 Gauge 1 day Peripheral 02/08/18 0700 Short Left Forearm 1 day Arterial Line 02/09/18 0830 Arterial Line Left Radial less than 1 day Central Line Double Lumen 02/09/18 0845 Non-tunneled Right Leg less than 1 day Peripheral 02/09/18 0820 Left Forearm 16 Gauge less than 1 day Drain Chest Tube 02/09/18 1200 Assessment Midline Anterior Mediastinal Tube #2 less than 1 day Chest Tube 02/09/18 1200 Left Anterior Pleural Tube #1 less than 1 day GI Feed/Drain 02/09/18 0800 Oral Gastric Midline less than 1 day Indwelling Urinary Catheter 02/09/18 0838 Temperature Monitoring 16 Fr less than 1 day Airway Airway Endotracheal Tube 02/09/18 0800 less than 1 day DATA: Diagnostic tests reviewed for today's visit: Recent Labs 02/09/18 1405 02/09/18 1252 02/09/18 1217 02/09/18 0407 02/09/18 0123 02/08/18 1730 02/08/18 0500 02/08/18 0105 02/07/18 2243 02/07/18 1525 HBA1C -- -- -- -- -- -- -- -- -- -- 5.1 -- RBC 3.96* -- -- -- 4.45* -- -- -- 4.50* 4.70 -- 5.06 WBC 22.43* -- -- -- 8.26 -- -- -- 11.59* 10.39* -- 8.9 HB 13.1* -- -- -- 14.3 -- -- -- 14.5 15.1 -- 16.4 HCT 38.7* 29* 30* < > 42.8 -- -- -- 42.8 43.4 -- 47.3 PLT 157 -- -- -- 187 -- -- -- 222 202 -- 258 INR 1.24 -- -- -- -- -- -- -- -- 1.05 1.10 1.10 APTT 23.0 -- -- -- -- 43.7* 25.8 < > -- 28.3 -- -- NA 142 144 138 < > 139 -- -- -- 137 -- -- 136 K 4.3 4.0 5.3* < > 3.9 -- -- -- 4.2 -- -- 4.0 CHLOR 113* -- -- -- 108* -- -- -- 107 -- -- 104 CO2 25 -- -- -- 26 -- -- -- 24 -- -- 25 BUN 12 -- -- -- 12 -- -- -- 11 -- -- 13 CREAT 0.96 -- -- -- 0.90 -- -- -- 0.85 -- -- 0.91 GLUC 161* -- -- -- 96 -- -- -- 109* -- -- 111* CA 7.9* -- -- -- 8.7 -- -- -- 8.5 -- -- 8.8 MG 1.8 -- -- -- -- -- -- -- -- -- 2.3 -- P -- -- -- -- -- -- -- -- 2.9 -- -- -- TPROT 5.2* -- -- -- -- -- -- -- -- -- -- 7.5 TBILI 0.6 -- -- -- -- -- -- -- -- -- -- 0.4 ALKPHOS 64 -- -- -- -- -- -- -- -- -- -- 104 ALT 30 -- -- -- -- -- -- -- -- -- -- 27 AST 88* -- -- -- -- -- -- -- -- -- -- 23 ANION 8 -- -- -- 9 -- -- -- 10 -- -- 11 MRSA -- -- -- -- -- -- -- -- -- No MRSA detected. -- -- < > = values in this interval not displayed. Recent Labs 02/09/18 1400 02/09/18 1252 02/09/18 1217 02/09/18 1144 PH 7.193* 7.236* 7.372 7.415 PCO2 62.0* -- -- -- PO2 94.7 93.0 168.0* 256.0* BE -5.7 -- -- -- HCO3 -- 21.1* 20.9* 23.7 Assessment/Plan Acute NSTEMI s/p CABG x 3 Anticipated acute pulmonary insufficiency s/p CTS 2/2 underlying COPD AND atelectasis Respiratory acidosis Anticipated vasodilation s/p CTS; on Epi Leukocytosis, likely reactive Chronic nicotine dependence Plan: -c/w ASA, statin. No BB until off Epi -Monitor chest tube output -Vent support; wean per protocol -Propofol for sedation -Duonebs -Post thorax vest Tests/Labs Ordered: 1. Chest X-ray 2. BMP 3. CBC 4. ABG 5. PT/INR/PTT SIGNATURE: Clementine Owen CNP PATIENT NAME: Jeffrey Cullen DATE: February 09, 2018 TIME: 4:35 PM PAGER/CONTACT #: [phone] ETX [id number] GLUCOSE METER Collected: 02/09/2018 Status: F Source: [facility] 4:27 PM HEALTH SYSTEM REPOSITORY TYPE CODE TESTS RESULT OUT OF REFERENCE UNITS RANGE LAB GLUBL(LOINC 70-99 mg/dL ) High Glucose Meter 169 Result Comment: RN NOTIFIED Performed By: #### GLMET #### [facility] [address] [place] [id number] GLUCOSE METER Collected: 02/09/2018 Status: F Source: [facility] 3:01 PM HEALTH SYSTEM REPOSITORY TYPE CODE TESTS RESULT OUT OF REFERENCE UNITS RANGE LAB GLUBL(LOINC 70-99 mg/dL ) High Glucose Meter 138 Result Comment: RN NOTIFIED Performed By: #### GLMET #### [facility] [address] [place], [place] [address] CONSULT Observed: 02/09/2018 Status: COMPLETED Source: [place] 2:55 PM CLINIC OTHER CAMPUS REPOSITORY HNO ID: [id number] Author: Elkin Zuleta Service: Critical Care Author Type: Physician Type: Consults Filed: 02/09/2018 3:28 PM Note Text: CRITICAL CARE CONSULT NOTE SERVICE DATE: 02/09/2018 SERVICE TIME: 3:12 PM REASON FOR CONSULT: Confusion and Delirium, COPD and S/P Surgery REQUESTING PHYSICIAN: Dr. Marin? ADMITTING PROVIDER: Saud Mario MD SERVICE DATE: 02/09/2018 SERVICE TIME: 2.55 PM Admission Date: 02/07/2018 AGE: [age] year old LOS: 2 days Subjective 67yo WM s/p CABG x 3 seen in CVICU. Opens eyes to name but agitated and writhing about requiring restraints. On Precedex 0.7mcg/kg/hr. Has just received PRBC Tx. Chart reports 2PPD smoker x 45 years ongoing [employer] PERSON[employer]. No PFTs avaiable. No family available for history. Admitted 02/07 with chest pain and found to have NSTEMI. Alcohol use denied. Objective PROBLEMS: ACTIVE PROBLEM LIST Inguinal Hernia Without Mention of Obstruction Or Gangrene, Unilateral Or Unspecified, (Not Specified As Recurrent) Nstemi (Non-St Elevated Myocardial Infarction) (Hcc) Nsvt (Nonsustained Ventricular Tachycardia) (Hcc) Nicotine use disorder, F17.2 No past medical history on file. PAST SURGICAL HISTORY Procedure Laterality Date - ORTHOPEDICS SURGERY HX - REPAIR ING HERNIA,5+Y/O,REDUCIBL 1990 Hernia repair, inguinal,left Social History Marital status: Single Spouse name: Years of education: Number of children: Social History Main Topics Smoking status: Current Every Day Smoker Packs/day: 2.00 Years: 25.00 Types: Cigarettes Alcohol use: No Drug use: No Sexual activity: Yes Partners with: Female Other Topics Concern Service No Blood Transfusions No Caffeine Concern No Occupational Exposure No Hobby Hazards No Sleep Concern No Stress Concern No Weight Concern No Special Diet No Back Care No Exercise No Bike Helmet No Seat Belt No Self-Exams No VITAL SIGNS (last 24hrs min/max): Temp Av.8 ?C (98.2 ?F) Min: 36.3 ?C (97.3 ?F) Max: 37.2 ?C (99 ?F) Pulse Av.5 Min: 66 Max: 107 Arterial BP 1 Min: 98/53 Max: 147/67 Cuff BP Min: 103/69 Max: 151/104 Pain Score: 10/10 Vital signs reviewed. BP 141/93 Pulse 102 Temp (Src) 97.3 (Temporal Artery) Resp 21 Ht 5' 10.984 (1.80m) Wt 233 lb 0.4 oz (105.7kg) SpO2 95% BMI 32.51 kg/(m2). Temp (24hrs), Av.8 ?C (98.2 ?F), Min:36.3 ?C (97.3 ?F), Max:37.2 ?C (99 ?F) NET FLUID BALANCE Intake/Output Summary (Last 24 hours) at 02/09/18 1512 Last data filed at 02/09/18 1445 Gross per 24 hour Intake 532 ml Output 700 ml Net -168 ml MEDICATIONS Current Facility-Administered Medications: acetaminophen 650 mg tab(s) (TYLENOL) 650 mg ORAL q 6 H PRN insulin regular iv infusion 250 units in NaCl 0.9% 250 mL - AK CARD SURG NOMOGRAM 0-12 Units/hr INTRAVENOUS CONTINUOUS insulin regular human iv bolus 10 Units 10 Units INTRAVENOUS PRN dextrose 50% in water 25 mL syringe 12.5 g INTRAVENOUS PRN dexmedetomidine 400 mcg in NaCl 0.9% 100 mL (PRECEDEX) 0.2- 0.7 mcg/kg/hr INTRAVENOUS CONTINUOUS potassium chloride iv piggyback 20 mEq in sterile water 100 mL 20 mEq INTRAVENOUS PRN magnesium sulfate in water 2 g in sterile water 50 ml 2 g INTRAVENOUS PRN(NO DISPENSE) NaCl 0.9% iv infusion 50 mL/hr INTRAVENOUS CONTINUOUS albumin (5%) 12.5 g infusion 12.5 g INTRAVENOUS PRN albuterol 2.5 mg /3 mL (0.083 %) 2.5 mg (PROVENTIL) 2.5 mg INHALATION q 2 H PRN EPINEPHrine 4 mg in NaCl 0.9% 250 mL 0.5-10 mcg/min INTRAVENOUS CONTINUOUS niCARdipine 40 mg in NaCl 0.9% 200 mL infusion (CARDENE) 5- 10 mg/hr INTRAVENOUS CONTINUOUS ceFAZolin iv piggyback 2 g in D5W (iso-osmotic) 100 mL (ANCEF) 2 g INTRAVENOUS q 6 HR calcium chloride 1 g in D5W 100 mL 1 g INTRAVENOUS PRN(NO DISPENSE) midazolam (PF) 2 mg injection (VERSED) 2 mg INTRAVENOUS q 6 H PRN oxyCODONE-acetaminophen 5-325 mg 1-2 tablet (PERCOCET) 1-2 tablet ORAL q 4 H PRN morphine 2-4 mg injection 2-4 mg INTRAVENOUS q 1 H PRN ondansetron (PF) 4 mg injection (ZOFRAN) 4 mg INTRAVENOUS q 6 H PRN atorvastatin 40 mg tab(s) (LIPITOR) 40 mg ORAL AT BEDTIME metoprolol tartrate (short acting) 25 mg tab(s) (LOPRESSOR) 25 mg ORAL q 12 H ipratropium-albuterol 3 mL nebulizer solution (DUONEB) 3 mL INHALATION QID 0.9% NaCl 3-5 mL 3-5 mL INTRAVENOUS q 12 H Lines, Drains, and Airways Line Peripheral 02/07/18 1600 Admission to Hospital Short Right Antecubital 1 day Peripheral 02/08/18 0100 Short Right Arm 20 Gauge 1 day Peripheral 02/08/18 0700 Short Left Forearm 1 day Arterial Line 02/09/18 0830 Arterial Line Left Radial less than 1 day Central Line Double Lumen 02/09/18 0845 Non-tunneled Right Leg less than 1 day Peripheral 02/09/18 0820 Left Forearm 16 Gauge less than 1 day Drain Chest Tube 02/09/18 1200 Assessment Midline Anterior Mediastinal Tube #2 less than 1 day Chest Tube 02/09/18 1200 Left Anterior Pleural Tube #1 less than 1 day GI Feed/Drain 02/09/18 0800 Oral Gastric Midline less than 1 day Indwelling Urinary Catheter 02/09/18 0838 Temperature Monitoring 16 Fr less than 1 day Airway Airway Endotracheal Tube 02/09/18 0800 less than 1 day PHYSICAL EXAM PERFORMED: WD WN age-appropriate WF who will open eyes to name and track. Cardiovascular: Regular tachycardia Respiratory: Expiratory wheezes and short rhonchi bilaterally. Decreased BSs. VENT: SIMV-12 Vt-600ml PS-15 P--5 FiO2 70%. SaO2 93-94%. Abdomen: Soft, Nontender and rare BSs Extremities: Edema- No Neurologic: Alert, Moving all extremities, Agitated and Delirious Respiratory/Nursing Documentation: O2 Therapy: Ventilator (02/09/18 1400) Invasive Ventilator Mode: Synchronized Intermittent Mandatory Ventilation;Pressure Support Ventilation (02/09/181354) Set Ventilator Respiratory Rate (BPM): 12 (02/09/181354) Total Respiratory Rate (BPM): 12 (02/09/181354) Tidal Volume Set (mL): 600 (02/09/181354) Exhaled Tidal Volume (mL): 610 (02/09/181354) Minute Volume (L): 7.3 (02/09/181354) Peak Inspiratory Pressure (cm H2O): 21 (02/09/181354) PEEP/CPAP (cm H2O): 5 (02/09/181354) HEMODYNAMIC DATA: Reviewed NUTRITION: Enteral Feeds: No NPO DATA: Diagnostic tests reviewed for today's visit, films/specimens were personally reviewed by me: Most recent labs and imaging results. LABS: Recent Labs 02/09/18 1405 02/08/18 1210 TROPI -- -- 39.700* WBC 22.43* < > -- RBC 3.96* < > -- HB 13.1* < > -- HCT 38.7* < > -- MCV 97.7* < > -- PLT 157 < > -- GLUC 161* < > -- BUN 12 < > -- CREAT 0.96 < > -- NA 142 < > -- K 4.3 < > -- CHLOR 113* < > -- CO2 25 < > -- TPROT 5.2* -- -- ALB 2.5* -- -- CA 7.9* < > -- ALKPHOS 64 -- -- TBILI 0.6 -- -- AST 88* -- -- ALT 30 -- -- PTSEC 12.6* -- -- APTT 23.0 < > -- INR 1.24 -- -- MG 1.8 -- -- < > = values in this interval not displayed. ABG: Recent Labs 02/09/18 1400 02/09/18 1252 02/09/18 1217 PH 7.193* 7.236* 7.372 PO2 94.7 93.0 168.0* PCO2 62.0* -- -- Assessment/Plan IMPRESSION: Critical Care Documentation: The patient has the following organ/system impairment(s): Encephalopathy and respiratory acidosis and hypercapnea 1. S/P CABG x 3 with multivessel CADse 2. Hypercapnea 3. Long history of heavy cigarette smoking. 4. Post-op CXR with bibasilar atelectasis--no focal infiltrate. MMP CRITICAL CARE PLAN: Bronchodilators , Ventilatory support , Weaning and inhaled steroids and Propofol. This patient has a high probability of sudden, clinically significant deterioration, which requires the highest level of physician preparedness to intervene urgently. I managed/supervised life or organ supporting interventions that required frequent physician assessment. I devoted my full attention to the direct care of this patient for the amount of time indicated below. Time I spent with family or surrogate(s) is included only if the patient was incapable of providing the necessary information or participating in medical decision making. Time devoted to teaching is not included. Discussed with staff/patient/family Time spent providing critical care services: 35 minutes excluding procedures. SIGNATURE: Elkin Zuleta MD PATIENT NAME: Jeffrey Cullen DATE: February 09, 2018 TIME: 3:12 PM NURSING PROG Observed: 02/09/2018 Status: COMPLETED Source: [place] 2:31 PM CLINIC OTHER CAMPUS REPOSITORY O ID: [id number] Author: Guerrero (Rn) RAINA Reyna Service: (none) Author Type: Registered Nurse Type: Nursing Progress Note Filed: 02/09/2018 2:32 PM Note Text: Nursing Progress Note Patient Name: Jeffrey Cullen Patient Location: [place] [address] [address]* Event(s) / Intervention Note: Patient arrived back in CVICU from OR for CABG. This note was completed by: Guerrero Reyna RN CHEST 1 VIEW Observed: 02/09/2018 Status: F Source: [facility] 2:30 PM HEALTH SYSTEM REPOSITORY Performed at [facility] APPROVED BY: Richie Velasco MD EXAM TITLE: CHEST 1 VIEW DATE: 02/09/2018 14:20 COMPARISON: 02/07/2018 CLINICAL INDICATION/HISTORY: Status post CABG TECHNIQUE: AP semierect portable chest FINDINGS: ET tube tip resides approximately 5 cm above the nelda. There is an enteric tube extending into the stomach. Mccaskill-Daphne catheter appears looped upon itself within the pulmonary outflow tract. There i s a left-sided thoracostomy tube. There is no pneumothorax. There is a suboptimal inspiration. Mild bibasilar atelectasis. Intact sternotomy wires. Cardiac size is stable. IMPRESSION: Status post CABG. Lines and tubes as noted. HEMOGRAM Collected: 02/09/2018 Status: F Source: [facility] 2:05 HEALTH SYSTEM REPOSITORY TYPE CODE TESTS RESULT OUT OF REFERENCE UNITS RANGE LAB WBC(LOINC) 4.23-9.07 thou/cmm High WBC 22.43 LAB RBC(LOINC) 4.63-6.08 mil/cmm Low RBC 3.96 LAB HGB(LOINC) 13.7-17.5 g/dL Low Hgb 13.1 LAB HCT(LOINC) 40.1-51.0 % Low Hct 38.7 LAB MCV(LOINC) 83.2-95.6 fl High MCV 97.7 LAB MCH(LOINC) 25.7-32.2 pg High MCH 33.1 LAB MCHC(LOINC) 32.3-36.5 % MCHC 33.9 LAB RDW(LOINC) 11.6-14.4 % RDW 13.4 LAB RDWSD(LOINC 36.1-45.8 fl ) High RDW SD 48.2 LAB PLT(LOINC) 141-365 thou/cmm Platelet 157 LAB MPV(LOINC) 8.7-12.0 fl MPV 9.6 Performed By: #### CBC1 #### [facility] [address] [place] [address] COMPREHENSIVE PANEL Collected: 02/09/2018 Status: F Source: [facility] 2:05 HEALTH SYSTEM REPOSITORY TYPE CODE TESTS RESULT OUT OF REFERENCE UNITS RANGE LAB ALKP(LOINC 46-116 U/L ) Alk Phosphatase 64 LAB NA(LOINC) 136-145 mEq/L Sodium Blood 142 LAB K(LOINC) 3.5-5.1 mEq/L Potassium Blood 4.3 LAB CL(LOINC) 98-107 mEq/L Chloride High Blood 113 LAB CO2(LOINC) 21-32 mEq/L CO2 Blood 25 LAB GLU(LOINC) 70-99 mg/dL Glucose High Blood 161 LAB BUN(LOINC) 7-18 mg/dL BUN Blood 12 LAB CREA(LOINC 0.67-1.17 mg/dL ) Creatinine Blood 0.96 LAB CA(LOINC) 8.5-10.1 mg/dL Low Calcium Blood 7.9 LAB ALB(LOINC) 3.4-5.0 g/dL Low Albumin Blood 2.5 LAB TP(LOINC) 6.4-8.2 g/dL Low Total Protein 5.2 LAB AST(LOINC) 9-37 U/L AST-SGOT High Blood 88 LAB ALT(LOINC) 12-78 U/L ALT-SGPT Blood 30 LAB BILIT(LOIN 0.2-1.0 mg/dL C) Total Bilirubin 0.6 LAB ANGAP(LOIN 8-16 C) Anion Gap 8 Performed By: #### P14 #### [place] [address] PROTIME Collected: 02/09/2018 Status: F Source: [facility] 2:05 HEALTH SYSTEM REPOSITORY TYPE CODE TESTS RESULT OUT OF REFERENCE UNITS RANGE LAB PTI(LOINC) 9.3-11.9 sec Prothrombin High Time 12.6 LAB INR(LOINC) INR 1.24 Result Comment: Standard Therapy 2.0-3.0 High Dose 2.5-3.5 Performed By: #### PT #### [place] [address] ACTIVATED PTT Collected: 02/09/2018 Status: F Source: [facility] 2:05 HEALTH SYSTEM REPOSITORY TYPE CODE TESTS RESULT OUT OF REFERENCE UNITS RANGE LAB APTT(LOINC 22.0-34.0 sec ) Activated PTT 23.0 Performed By: #### APTT #### [place] [address] MAGNESIUM BLOOD Collected: 02/09/2018 Status: F Source: [facility] 2:05 HEALTH SYSTEM REPOSITORY TYPE CODE TESTS RESULT OUT OF REFERENCE UNITS RANGE LAB MAG(LOINC) 1.6-2.6 mg/dL Magnesium Blood 1.8 Performed By: #### MAG #### [place] [address] MDRD GFR Collected: 02/09/2018 Status: F Source: [facility] 2:05 PM HEALTH SYSTEM REPOSITORY TYPE CODE TESTS RESULT OUT OF RANGE REFERENCE UNITS LAB GFRFN(LOINC >60mL/min/1.73m ) 2 eGFR >60 Result Comment: If the patient is , multiply the result by 1.210. Performed By: #### GFR #### [facility] [address] [place] [address] BLOOD GAS ARTERIAL Collected: 02/09/2018 Status: F Source: [facility] 2:00 PM HEALTH SYSTEM REPOSITORY TYPE CODE TESTS RESULT OUT OF REFERENCE UNITS RANGE LAB TEMPA(LOIN C) Temperature 36.0 LAB PH(LOINC) 7.350-7.450 Low pH Arterial alert 7.193 Result Comment: RESULT RECHECKED LAB PCO2(LOINC) 36.0-46.0 mm Hg High PCO2 Arterial 62.0 LAB PO2(LOINC) 85.0-96.0 mm Hg PO2 Arterial 94.7 LAB HCO3A(LOINC) 22.0-26.0 mEq/L HCO3- 23.6 LAB O2%A(LOINC) 95.0-98.0 % O2% Sat Arterial 96.2 LAB BASEX(LOINC) -2.5 to 2.5 mEq/L Base Excess -5.7 LAB FIO2(LOINC) % FIO2 70 Performed By: #### ABG #### [place] [address] GLUCOSE METER Collected: 02/09/2018 Status: F Source: [facility] 1:59 PM HEALTH SYSTEM REPOSITORY TYPE CODE TESTS RESULT OUT OF REFERENCE UNITS RANGE LAB GLUBL(LOINC 70-99 mg/dL ) High Glucose Meter 160 Result Comment: RN NOTIFIED Performed By: #### GLMET #### [place] [id number] PROGRESS Observed: 02/09/2018 Status: COMPLETED Source: [place] 1:51 PM CLINIC OTHER CAMPUS REPOSITORY HNO ID: [id number] Author: Juan Cabral Service: Cardiovascular Medicine Author Type: Physician Type: Progress Notes Filed: 02/09/2018 1:51 PM Note Text: Result Noted. Patient is currently hospitalized and managed by the in-patient team. Juan Cabral MD PROGRESS Observed: 02/09/2018 Status: COMPLETED Source: [place] 1:32 PM CLINIC OTHER CAMPUS REPOSITORY HNO ID: [id number] Author: Beata Marin Service: Thoracic Surgery Author Type: Physician Type: Progress Notes Filed: 02/09/2018 1:36 PM Note Text: CARDIOTHORACIC BRIEF OP NOTE LOG ID: [id number] SURGERY/PROCEDURE DATE: 02/09/2018 INCISION/PROCEDURE START TIME: 9:13 AM INCISION CLOSE/PROCEDURE END TIME: 1:31 PM SURGEON(S) AND RIGHT OF WAY CLEARER(S): Surgeon(s) and Role: * Beata Marin - Primary Clinical Cytopathologist: Kristin Lei) SA Pam; Elkin () SA Ana Luisa PROCEDURES AND ANESTHESIA: CABG X 3 with pedicled KUMAR to LAD, svg to circ, svg to RCA. Procedure(s) and Anesthesia Type: * BYPASS GRAFT ARTERY CORONARY ON-PUMP THREE CORONARY VENOUS GRAFTS - General Great Saphenous Vein, Left , Percutaneous endoscopic ANESTHESIA: General BRIEF FINDINGS: LAD not as big as circ and RCA, extensive inferior wall ischemia/infarction With bradycardia and hypotension. PREOPERATIVE DIAGNOSIS: coronary artery disease and acute NSTEMI POSTOPERATIVE DIAGNOSIS: same ESTIMATED BLOOD LOSS: 200ml SPECIMENS: None COMPLICATIONS: None SIGNATURE: Beata Marin MD PATIENT NAME: Jeffrey Cullen DATE: February 09, 2018 TIME: 1:32 PM PAGER/CONTACT #: [phone] CG8 ARTERIAL PANEL Collected: 02/09/2018 Status: F Source: [facility] (I-STAT) 12:52 PM HEALTH SYSTEM REPOSITORY TYPE CODE TESTS RESULT OUT OF REFERENCE UNITS RANGE LAB PHISA(LOIN 7.350-7.450 C) Low pH (i-STAT) 7.236 LAB PC2IA(LOIN 35.0-45.0 mm Hg C) PCO2 High (i-STAT) 49.6 LAB PO2IA(LOIN 80.0-105.0 mm Hg C) PO2 (i-STAT) 93.0 LAB HC3IA(LOIN 22.0-26.0 mmol/L C) Low HCO3- (i-STAT) 21.1 LAB BSXIA(LOIN -2.0 to 3.0 mmol/L C) Base Excess (i-STAT) -6.0 LAB SO2IA(LOIN 95.0-98.0 % C) O2% Sat. (i-STAT) 96.0 LAB TC2IA(LOIN 23-27 mmol/L C) Total CO2 (i-STAT) 23 LAB GLUIA(LOIN 70-99 mg/dL C) Glucose High (i-STAT) 135 LAB NAI2A(LOIN 138-146 mmol/L C) Sodium (i-STAT) 144 LAB KIS2A(LOIN 3.5-4.9 mmol/L C) Potassium 4.0 (i-STAT) LAB ICALA(LOIN 4.5-5.3 mg/dL C) Ionized High Calcium (iSTAT) 5.7 LAB HCTIA(LOIN 38-51 %PCV C) Low Hematocrit 29 (i-STAT) LAB HGBIA(LOIN 12.0-17.0 g/dL C) Low Hemoglobin 9.9 (i-STAT) Performed By: #### CG8IA #### [facility] [address] [place] [address] ACT ARTERIAL PANEL Collected: 02/09/2018 Status: F Source: [facility] (I-STAT) 12:52 PM HEALTH SYSTEM REPOSITORY TYPE CODE TESTS RESULT OUT OF REFERENCE UNITS RANGE LAB ACTAI(LOINC 74-137 sec ) Kaolin ACT ( 109 i-STAT) Performed By: #### ACTIA #### [place] [address] NURSING PROG Observed: 02/09/2018 Status: COMPLETED Source: [place] 12:33 PM CLINIC OTHER CAMPUS REPOSITORY HNO ID: [id number] Author: Kathryn (Rn) RAINA Corley Service: Cardiac Surgery Author Type: Registered Nurse Type: Nursing Progress Note Filed: 02/09/2018 12:34 PM Note Text: SISTER UPDATED . CG8 ARTERIAL PANEL Collected: 02/09/2018 Status: F Source: [facility] (I-STAT) 12:17 PM HEALTH SYSTEM REPOSITORY TYPE CODE TESTS RESULT OUT OF REFERENCE UNITS RANGE LAB PHISA(LOIN 7.350-7.450 C) pH (i-STAT) 7.372 LAB PC2IA(LOIN 35.0-45.0 mm Hg C) PCO2 (i-STAT) 36.0 LAB PO2IA(LOIN 80.0-105.0 mm Hg C) PO2 High (i-STAT) 168.0 LAB HC3IA(LOIN 22.0-26.0 mmol/L C) Low HCO3- (i-STAT) 20.9 LAB BSXIA(LOIN -2.0 to 3.0 mmol/L C) Base Excess (i-STAT) -4.0 LAB SO2IA(LOIN 95.0-98.0 % C) O2% Sat. High (i-STAT) 99.0 LAB TC2IA(LOIN 23-27 mmol/L C) Low Total CO2 (i-STAT) 22 LAB GLUIA(LOIN 70-99 mg/dL C) Glucose High (i-STAT) 142 LAB NAI2A(LOIN 138-146 mmol/L C) Sodium (i-STAT) 138 LAB KIS2A(LOIN 3.5-4.9 mmol/L C) High Potassium 5.3 (i-STAT) LAB ICALA(LOIN 4.5-5.3 mg/dL C) Low Ionized Calcium (iSTAT) 4.3 LAB HCTIA(LOIN 38-51 %PCV C) Low Hematocrit 30 (i-STAT) LAB HGBIA(LOIN 12.0-17.0 g/dL C) Low Hemoglobin 10.2 (i-STAT) Performed By: #### CG8IA #### [place] [address] ACT ARTERIAL PANEL Collected: 02/09/2018 Status: F Source: [facility] (I-STAT) 12:16 PM HEALTH SYSTEM REPOSITORY TYPE CODE TESTS RESULT OUT OF REFERENCE UNITS RANGE LAB ACTAI(LOINC 74-137 sec ) High Kaolin ACT ( 543 i-STAT) Performed By: #### ACTIA #### [place] [address] ACT ARTERIAL PANEL Collected: 02/09/2018 Status: F Source: [facility] (I-STAT) 11:50 AM HEALTH SYSTEM REPOSITORY TYPE CODE TESTS RESULT OUT OF REFERENCE UNITS RANGE LAB ACTAI(LOINC 74-137 sec ) High Kaolin ACT ( 538 i-STAT) Performed By: #### ACTIA #### [place] [address] CG8 ARTERIAL PANEL Collected: 02/09/2018 Status: F Source: [facility] (I-STAT) 11:44 AM HEALTH SYSTEM REPOSITORY TYPE CODE TESTS RESULT OUT OF REFERENCE UNITS RANGE LAB PHISA(LOIN 7.350-7.450 C) pH (i-STAT) 7.415 LAB PC2IA(LOIN 35.0-45.0 mm Hg C) PCO2 (i-STAT) 37.0 LAB PO2IA(LOIN 80.0-105.0 mm Hg C) PO2 High (i-STAT) 256.0 LAB HC3IA(LOIN 22.0-26.0 mmol/L C) HCO3- (i-STAT) 23.7 LAB BSXIA(LOIN -2.0 to 3.0 mmol/L C) Base Excess (i-STAT) -1.0 LAB SO2IA(LOIN 95.0-98.0 % C) O2% Sat. High (i-STAT) 100.0 LAB TC2IA(LOIN 23-27 mmol/L C) Total CO2 (i-STAT) 25 LAB GLUIA(LOIN 70-99 mg/dL C) Glucose High (i-STAT) 131 LAB NAI2A(LOIN 138-146 mmol/L C) Sodium (i-STAT) 140 LAB KIS2A(LOIN 3.5-4.9 mmol/L C) High Potassium 5.0 (i-STAT) LAB ICALA(LOIN 4.5-5.3 mg/dL C) Low Ionized Calcium (iSTAT) 4.4 LAB HCTIA(LOIN 38-51 %PCV C) Low Hematocrit 32 (i-STAT) LAB HGBIA(LOIN 12.0-17.0 g/dL C) Low Hemoglobin 10.9 (i-STAT) Performed By: #### CG8IA #### [place] [address] ACT ARTERIAL PANEL Collected: 02/09/2018 Status: F Source: [facility] (I-STAT) 11:15 AM HEALTH SYSTEM REPOSITORY TYPE CODE TESTS RESULT OUT OF REFERENCE UNITS RANGE LAB ACTAI(LOINC 74-137 sec ) High Kaolin ACT ( 549 i-STAT) Performed By: #### ACTIA #### [place] [address] CG8 ARTERIAL PANEL Collected: 02/09/2018 Status: F Source: [facility] (I-STAT) 11:11 AM HEALTH SYSTEM REPOSITORY TYPE CODE TESTS RESULT OUT OF REFERENCE UNITS RANGE LAB PHISA(LOIN 7.350-7.450 C) pH (i-STAT) 7.409 LAB PC2IA(LOIN 35.0-45.0 mm Hg C) PCO2 (i-STAT) 38.7 LAB PO2IA(LOIN 80.0-105.0 mm Hg C) PO2 High (i-STAT) 266.0 LAB HC3IA(LOIN 22.0-26.0 mmol/L C) HCO3- (i-STAT) 24.5 LAB BSXIA(LOIN -2.0 to 3.0 mmol/L C) Base Excess (i-STAT) 0.0 LAB SO2IA(LOIN 95.0-98.0 % C) O2% Sat. High (i-STAT) 100.0 LAB TC2IA(LOIN 23-27 mmol/L C) Total CO2 (i-STAT) 26 LAB GLUIA(LOIN 70-99 mg/dL C) Glucose High (i-STAT) 109 LAB NAI2A(LOIN 138-146 mmol/L C) Sodium (i-STAT) 140 LAB KIS2A(LOIN 3.5-4.9 mmol/L C) High Potassium 5.0 (i-STAT) LAB ICALA(LOIN 4.5-5.3 mg/dL C) Low Ionized Calcium (iSTAT) 4.3 LAB HCTIA(LOIN 38-51 %PCV C) Low Hematocrit 33 (i-STAT) LAB HGBIA(LOIN 12.0-17.0 g/dL C) Low Hemoglobin 11.2 (i-STAT) Performed By: #### CG8IA #### [place] [address] CG8 VENOUS PANEL Collected: 02/09/2018 Status: F Source: [facility] (I-STAT) 11:00 AM HEALTH SYSTEM REPOSITORY TYPE CODE TESTS RESULT OUT OF REFERENCE UNITS RANGE LAB PHISV(LOIN 7.310-7.410 C) pH (i-STAT) 7.354 LAB PC2IV(LOIN 41.0-51.0 mm Hg C) PCO2 (i-STAT) 43.6 LAB PO2IV(LOIN 20.0-50.0 mm Hg C) PO2 (i-STAT) 45.0 LAB HC3IV(LOIN 23.0-28.0 mmol/L C) HCO3- (i-STAT) 24.3 LAB BSXIV(LOIN -2.0 to 3.0 mmol/L C) Base Excess (i-STAT) -1.0 LAB SO2IV(LOIN 35.0-85.0 % C) O2% Sat. (i-STAT) 79.0 LAB TC2IV(LOIN 24-29 mmol/L C) Total CO2 (i-STAT) 26 LAB GLUIV(LOIN 70-99 mg/dL C) Glucose High (i-STAT) 106 LAB NAI2V(LOIN 138-146 mmol/L C) Sodium (i-STAT) 141 LAB KIS2V(LOIN 3.5-4.9 mmol/L C) High Potassium 5.4 (i-STAT) LAB ICALV(LOIN 4.5-5.3 mg/dL C) Low Ionized Calcium (iSTAT) 4.2 LAB HCTIV(LOIN 38-51 %PCV C) Low Hematocrit 33 (i-STAT) LAB HGBIV(LOIN 12.0-17.0 g/dL C) Low Hemoglobin 11.2 (i-STAT) Performed By: #### [id number] #### [place] [id number] ACT ARTERIAL PANEL Collected: 02/09/2018 Status: F Source: [facility] (I-STAT) 10:46 AM [facility] REPOSITORY TYPE CODE TESTS RESULT OUT OF REFERENCE UNITS RANGE LAB ACTAI(LOINC 74-137 sec ) High [place] ACT ( 582 i-STAT) Performed By: #### ACTIA #### [place] [id number] CG8 ARTERIAL PANEL Collected: 02/09/2018 Status: F Source: [facility] (I-STAT) 10:41 AM [facility]ALTH [facility] REPOSITORY TYPE CODE TESTS RESULT OUT OF REFERENCE UNITS RANGE LAB PHISA(LOIN 7.350-7.450 C) Low pH (i-STAT) 7.343 LAB PC2IA(LOIN 35.0-45.0 mm Hg C) PCO2 (i-STAT) 44.7 LAB PO2IA(LOIN 80.0-105.0 mm Hg C) PO2 High (i-STAT) 292.0 LAB HC3IA(LOIN 22.0-26.0 mmol/L C) HCO3- (i-STAT) 24.3 LAB BSXIA(LOIN -2.0 to 3.0 mmol/L C) Base Excess (i-STAT) -1.0 LAB SO2IA(LOIN 95.0-98.0 % C) O2% Sat. High (i-STAT) 100.0 LAB TC2IA(LOIN 23-27 mmol/L C) Total CO2 (i-STAT) 26 LAB GLUIA(LOIN 70-99 mg/dL C) Glucose High (i-STAT) 101 LAB NAI2A(LOIN 138-146 mmol/L C) Sodium (i-STAT) 140 LAB KIS2A(LOIN 3.5-4.9 mmol/L C) Potassium 4.4 (i-STAT) LAB ICALA(LOIN 4.5-5.3 mg/dL C) Low Ionized Calcium (iSTAT) 4.3 LAB HCTIA(LOIN 38-51 %PCV C) Low Hematocrit 35 (i-STAT) LAB HGBIA(LOIN 12.0-17.0 g/dL C) Low Hemoglobin 11.9 (i-STAT) Performed By: #### CG8IA #### [place] [address] NURSING PROG Observed: 02/09/2018 Status: COMPLETED Source: [place] 10:36 AM [facility] REPOSITORY HNO ID: [id number] Author: Kathryn MoodyRn) RAINA Corley Service: Cardiac Surgery Author Type: Registered Nurse Type: Nursing Progress Note Filed: 02/09/2018 10:37 AM Note Text: SISTER WAS UPDATED WHEN SURGERY STARTED AND JUST NOW. ACT ARTERIAL PANEL Collected: 02/09/2018 Status: F Source: [facility] (I-STAT) 10:16 AM HEALTH SYSTEM REPOSITORY TYPE CODE TESTS RESULT OUT OF REFERENCE UNITS RANGE LAB ACTAI(LOINC 74-137 sec ) High Kaolin ACT ( 637 i-STAT) Performed By: #### ACTIA #### [place] [address] ANES PREOP Observed: 02/09/2018 Status: COMPLETED Source: [place] 9:32 AM [facility] REPOSITORY HNO ID: [id number] Author: Carlos Monroe Service: Anesthesiology Author Type: Physician Type: Anesthesia PreOp Filed: 02/22/2018 4:38 PM Note Text: ANESTHESIOLOGY DAY OF SURGERY NOTE SERVICE DATE: 02/09/2018 SERVICE TIME: 9:32 AM : 1950 Procedure(s) (LRB): BYPASS GRAFT ARTERY CORONARY ON-PUMP THREE CORONARY VENOUS GRAFTS (N/A) Surgeon(s): Beata Marin Estimated body mass index is 32.52 kg/(m2) as calculated from the following: Height as of this encounter: 180.3 cm (5' 10.98). Weight as of this encounter: 105.7 kg (233 lb 0.4 oz). Most recent hematocrit and potassium results: Hematocrit 42.8 02/09/2018 Potassium 3.9 02/09/2018 ANES DOS/PREOP NOTE: Vitals: 02/09/18 0500 02/09/18 0600 02/09/18 0700 02/09/18 0800 BP: 107/69 145/80 121/62 124/80 Pulse: 69 72 66 69 Resp: 20 21 23 21 Temp: 36.3 ?C (97.3 ?F) TempSrc: SpO2: 94% 95% 96% 97% Weight: 105.7 kg (233 lb 0.4 oz) 105.7 kg (233 lb 0.4 oz) Height: 180.3 cm (5' 10.98) ACTIVE PROBLEM LIST Inguinal Hernia Without Mention of Obstruction Or Gangrene, Unilateral Or Unspecified, (Not Specified As Recurrent) Nstemi (Non-St Elevated Myocardial Infarction) ([facility]) Nsvt (Nonsustained Ventricular Tachycardia) ([facility]) No past medical history on file. PAST SURGICAL HISTORY Procedure Laterality Date - ORTHOPEDICS SURGERY HX - REPAIR ING HERNIA,5+Y/O,REDUCIBL 1990 Hernia repair, inguinal,left FAMILY HISTORY Problem Relation Age of Onset - Alcohol/Drug Father - Colon Cancer Mother - Diabetes Mother Social History: Social History Substance Use Topics - Smoking status: Current Every Day Smoker Packs/day: 2.00 Years: 25.00 Types: Cigarettes - Smokeless tobacco: Not on file - Alcohol use No No current facility-administered medications on file prior to encounter. Current Outpatient Prescriptions on File Prior to Encounter: hydrocodone/ibuprofen(VICOPROFEN 7.5 MG-200 MG TAB) as necessary Current Facility-Administered Medications: aspirin 81 mg chewable tab(s) 81 mg ORAL DAILY Choco Godoy (Res) Nasser 81 mg at 02/09/18 0514 atorvastatin 40 mg tab(s) (LIPITOR) 40 mg ORAL AT BEDTIME Choco Godoy (Res) Nasser 40 mg at 02/08/18 2050 magnesium sulfate in water 2 g in sterile water 50 ml 2 g INTRAVENOUS PRN Choco Godoy (Res) Nasser calcium gluconate 4 g in NaCl 0.9% 250 mL 4 g INTRAVENOUS PRN Choco Godoy (Res) Nasser nitroglycerin 100 mg in D5W 250 mL 5 mcg/min INTRAVENOUS CONTINUOUS Choco Godoy (Res) Nasser Last Rate: 0.75 mL/hr at 02/08/18 0213 5 mcg/min at 02/08/18 0213 metoprolol tartrate (short acting) 25 mg tab(s) (LOPRESSOR) 25 mg ORAL q 12 H Choco Godoy (Res) Nasser 25 mg at 02/09/18 0514 acetaminophen 650 mg tab(s) (TYLENOL) 650 mg ORAL q 6 H PRN Jay Brice HYDROcodone 5 mg - acetaminophen 325 mg tablet (NORCO) 1-2 tablet ORAL q 6 H PRN Jay Brice nicotine polacrilex 4 mg gum (NICORETTE) 4 mg ORAL q 2 H PRN Anand (Res) Josue 4 mg at 02/08/18 1109 heparin iv infusion (LOW DOSE ACS/NOMOGRAM) 25,000 units in NaCl 0.45% 250 mL PREMIX 0-3,000 Units/hr INTRAVENOUS CONTINUOUS Anand (Res) Josue Stopped at 02/09/18 0630 And heparin RATE CHANGE bolus 1,000-4,000 Units for subtherapeutic aptt results 1,000-4,000 Units INTRAVENOUS PRN Anand (Res) Josue 3,100 Units at 02/09/18 0157 mupirocin ointment (BACTROBAN) TOPICAL TID Vega (Certified Physical Therapist Assistant) Eveline anticoagulant CPDA-1 39 mL, potassium chloride 36 mEq, sodium bicarbonate 45 mEq, Lidocaine HCl(PF) 180 mg in NaCl 0.9% 250 mL (CARDROPLEGIA SOLUTION - BAG 1) INTRACAVITY ONCE Beata Marin potassium chloride 25 mEq, Lidocaine HCl(PF) 100 mg in NaCl 0.9% 500 mL (CARDIOPLEGIA SOLUTION - BAG 2) INTRACAVITY ONCE Beata Marin heparin 1,500 Units in NaCl 0.9% 250 mL 1-5,000 Units/hr OTHER ONCE Beata Marin PHENYLephrine 20 mg in NaCl 0.9% 250 mL (NEOSYNEPHRINE) 25- 100 mcg/min INTRAVENOUS ONCE Beata Marin PHENYLephrine 10 mg in NaCl 0.9% 250 mL (NEOSYNEPHRINE) 25- 100 mcg/min INTRAVENOUS ONCE Beata Marin EPINEPHrine 4 mg in NaCl 0.9% 250 mL 0.5-4 mcg/min INTRAVENOUS ONCE Beata Marin insulin regular human 100 Units in NaCl 0.9% 100 mL 0.5 Units/hr INTRAVENOUS ONCE Beata Marin aminocaproic acid 10 g in NaCl 0.9% 250 mL (AMicAR) 1 g/hr INTRAVENOUS ONCE Beata Marin dexmedetomidine 400 mcg in NaCl 0.9% 100 mL (PRECEDEX) 0.2- 0.7 mcg/kg/hr ([place]) INTRAVENOUS ONCE Beata Marin nitroglycerin 100 mg in D5W 250 mL 5-200 mcg/min INTRAVENOUS ONCE Beata Marin nitroglycerin sublingual 0.4 mg tab(s) (NITROQUICK) 0.4 mg SUBLINGUAL PRN Saud Mario MD 0.4 mg at 02/08/18 0130 ipratropium-albuterol 3 mL nebulizer solution (DUONEB) 3 mL INHALATION QID Saud Mario MD 3 mL at 02/08/182057 0.9% NaCl 3-5 mL 3-5 mL INTRAVENOUS q 12 H Saud Mario MD 5 mL at 02/08/18 204 perflutren lipid microspheres 1.1 mg/mL 1.3 mL injection (DEFINITY) 1.3 mL INTRAVENOUS PRN(NO DISPENSE) Saud Mario MD Allergies: ALLERGIES No Known Allergies DOS EXAM: Adequate NPO status: Yes Anesthetic risks, benefits, alternatives, personnel and consent discussed: Yes Patient agrees to proceed: Yes Previous Anesthesia: No history of adverse event. Airway Assessment: MP 2; Neck ROM: Full ROM without neurologic symptoms; Airway Evaluation: No significant abnormalities Symptoms of Sleep Apnea: Hypertension, Age over 50 (67 year old) and Male gender Dentition: Edentulous Additional Physical Exam: Lungs: Patient health status unchanged since recent history and physical. See history and physical for exam findings. Cardiac: Patient health status unchanged since recent history and physical. See history and physical for exam findings. Additional Pertinent Findings: N/A Blood Products: Not anticipated for this procedure. Anesthetic Plan: General, Standard ASA Monitors and swan daphne , art line, EMMANUEL Pain Management Plan: Parenteral or Oral ASA Class: 4 Other Medical Problems: None Chronic Beta Krystle medication administered within 24 hours: Yes I have interviewed and examined the patient. I have reviewed the medical record and/or the pre-anesthesia evaluation, pertinent labs, and test results. Significant changes in the patient's condition since the History and Physical, not otherwise documented in primary service progress notes: No This contains updated information obtained within 48 hours of Surgery/Procedure. SIGNATURE: Carlos Monroe MD PATIENT NAME: Jeffrey Cullen DATE: February 09, 2018 TIME: 9:32 AM CSN: [id number] PROGRESS Observed: 02/09/2018 Status: COMPLETED Source: [place] 9:28 AM [facility] OTHER CAMPUS REPOSITORY HNO ID: [id number] Author: Juan Cabral Service: Cardiovascular Medicine Author Type: Physician Type: Progress Notes Filed: 02/09/2018 9:28 AM Note Text: Result Noted. Patient is currently hospitalized and managed by the in-patient team. Juan Cabral MD ACT ARTERIAL PANEL Collected: 02/09/2018 Status: F Source: [facility] (I-STAT) 9:05 AM HEALTH SYSTEM REPOSITORY TYPE CODE TESTS RESULT OUT OF REFERENCE UNITS RANGE LAB ACTAI(LOINC 74-137 sec ) Kaolin ACT ( 120 i-STAT) Performed By: #### ACTIA #### [facility] [address] [place] [id number] CG8 ARTERIAL PANEL Collected: 02/09/2018 Status: F Source: [facility] (I-STAT) 9:02 AM HEALTH SYSTEM REPOSITORY TYPE CODE TESTS RESULT OUT OF REFERENCE UNITS RANGE LAB PHISA(LOIN 7.350-7.450 C) Low pH (i-STAT) 7.306 LAB PC2IA(LOIN 35.0-45.0 mm Hg C) PCO2 High (i-STAT) 49.6 LAB PO2IA(LOIN 80.0-105.0 mm Hg C) PO2 High (i-STAT) 240.0 LAB HC3IA(LOIN 22.0-26.0 mmol/L C) HCO3- (i-STAT) 24.8 LAB BSXIA(LOIN -2.0 to 3.0 mmol/L C) Base Excess (i-STAT) -2.0 LAB SO2IA(LOIN 95.0-98.0 % C) O2% Sat. High (i-STAT) 100.0 LAB TC2IA(LOIN 23-27 mmol/L C) Total CO2 (i-STAT) 26 LAB GLUIA(LOIN 70-99 mg/dL C) Glucose High (i-STAT) 101 LAB NAI2A(LOIN 138-146 mmol/L C) Sodium (i-STAT) 142 LAB KIS2A(LOIN 3.5-4.9 mmol/L C) Potassium 3.7 (i-STAT) LAB ICALA(LOIN 4.5-5.3 mg/dL C) Ionized Calcium (iSTAT) 4.8 LAB HCTIA(LOIN 38-51 %PCV C) Hematocrit 38 (i-STAT) LAB HGBIA(LOIN 12.0-17.0 g/dL C) Hemoglobin 12.9 (i-STAT) Performed By: #### CG8IA #### [place] [address] NURSING PROG Observed: 02/09/2018 Status: COMPLETED Source: [place] 8:00 AM CLINIC OTHER CAMPUS REPOSITORY [facility] ID: [id number] Author: Guerrero (Raina) RAINA Reyna Service: (none) Author Type: Registered Nurse Type: Nursing Progress Note Filed: 02/09/2018 8:54 AM Note Text: Nursing Progress Note Patient Name: Jeffrey Cullen Patient Location: [facility] Transfer Note: Patient transferred to OR with Anesthesia and Surgical Team. Actions taken: presurgical huddle completed. This note was completed by: Guerrero Reyna RN CONSULT PROG Observed: 02/09/2018 Status: COMPLETED Source: [place] 6:40 AM CLINIC OTHER CAMPUS REPOSITORY HNO ID: [id number] Author: Juan Cabral Service: Cardiovascular Medicine Author Type: Physician Type: Consult Progress Note Filed: 02/09/2018 6:49 AM Note Text: PROGRESS NOTE CARDIOLOGY SERVICE SERVICE DATE: 02/09/2018 SERVICE TIME: 6:41 AM Subjective INTERIM HISTORY: Some sob; no chest pain; no syncope Objective PHYSICAL EXAM: Body mass index is 32.52 kg/(m2). O2 Therapy: Room Air No Data Recorded Patient Vitals for the past 24 hrs: BP Temp Temp src Pulse Resp SpO2 Weight 02/09/18 0600 145/80 - - 72 21 95 % 105.7 kg (233 lb 0.4 oz) 02/09/18 0500 107/69 - - 69 20 94 % - 02/09/18 0400 113/71 36.8 ?C (98.2 ?F) - 71 22 93 % - 02/09/18 0300 115/57 - - 70 18 96 % - 02/09/18 0200 138/69 - - 72 20 97 % - 02/09/18 0123 123/71 - - 71 22 95 % - 02/09/18 0048 119/76 36.8 ?C (98.2 ?F) - 71 26 96 % - 02/08/18 2300 121/67 - - 75 25 95 % - 02/08/18 2200 113/56 - - 81 23 95 % - 02/08/18 2150 123/76 - - 74 18 94 % - 02/08/18 2110 - - - - 18 - - 02/08/18 2101 - - - 72 17 95 % - 02/08/18 2100 105/72 - - 82 17 98 % - 02/08/18 2045 109/76 - - 84 20 94 % - 02/08/18 1909 - 37.2 ?C (99 ?F) Temporal Art - - - - 02/08/18 1840 - - - 70 20 - - 02/08/18 1830 105/66 - - 74 15 94 % - 02/08/18 1823 - - - 69 14 95 % - 02/08/18 1800 117/72 - - 73 23 92 % - 02/08/18 1730 119/66 - - 73 26 95 % - 02/08/18 1700 138/75 - - 75 21 95 % - 02/08/18 1630 103/69 - - 79 23 94 % - 02/08/18 1530 126/75 - - 82 17 96 % - 02/08/18 1500 103/64 36.5 ?C (97.7 ?F) Temporal Art 77 25 92 % - 02/08/18 1430 105/63 - - 76 20 95 % - 02/08/18 1400 116/68 - - 77 16 97 % - 02/08/18 1330 110/66 - - 74 20 97 % - 02/08/18 1300 113/62 - - 78 21 98 % - 02/08/18 1230 108/56 - - 80 22 95 % - 02/08/18 1200 108/67 - - 77 14 97 % - 02/08/18 1130 109/62 - - 78 21 97 % - 02/08/18 1118 - - - 70 22 98 % - 02/08/18 1105 - - - 72 20 96 % - 02/08/18 1100 120/65 - - 69 20 96 % - 02/08/18 1041 - 36.4 ?C (97.5 ?F) Temporal Art - - - - 02/08/18 1030 114/73 - - 72 20 96 % - 02/08/18 1000 123/79 - - 70 14 97 % - 02/08/18 0945 107/76 - - 71 22 94 % - 02/08/18 0930 123/79 - - 77 18 96 % - 02/08/18 0915 114/71 - - 75 23 92 % - 02/08/18 0900 118/75 - - 78 20 99 % - 02/08/18 0727 - 36.4 ?C (97.5 ?F) Temporal Art - - - - 02/08/18 0700 120/64 - - 78 23 97 % - Pleasant, comfortable, not in acute distress. Awake, alert, oriented times 3. Moves all extremities. NECK: , no JVD, no carotid bruit, no thyromegaly. LUNGS: no wheeze Diminished breath sounds ABDOMEN: Soft, nontender, EXTREMITIES: No edema. R groin cath site clean PULSES: Peripheral pulses present. CARDIAC:RRR, MEDICATIONS: Current hospital medications: aspirin 81 mg chewable tab(s) 81 mg ORAL DAILY atorvastatin 40 mg tab(s) (LIPITOR) 40 mg ORAL AT BEDTIME magnesium sulfate in water 2 g in sterile water 50 ml 2 g INTRAVENOUS PRN calcium gluconate 4 g in NaCl 0.9% 250 mL 4 g INTRAVENOUS PRN nitroglycerin 100 mg in D5W 250 mL 5 mcg/min INTRAVENOUS CONTINUOUS metoprolol tartrate (short acting) 25 mg tab(s) (LOPRESSOR) 25 mg ORAL q 12 H acetaminophen 650 mg tab(s) (TYLENOL) 650 mg ORAL q 6 H PRN HYDROcodone 5 mg - acetaminophen 325 mg tablet (NORCO) 1-2 tablet ORAL q 6 H PRN nicotine polacrilex 4 mg gum (NICORETTE) 4 mg ORAL q 2 H PRN heparin iv infusion (LOW DOSE ACS/NOMOGRAM) 25,000 units in NaCl 0.45% 250 mL PREMIX 0-3,000 Units/hr INTRAVENOUS CONTINUOUS heparin RATE CHANGE bolus 1,000-4,000 Units for subtherapeutic aptt results 1,000-4,000 Units INTRAVENOUS PRN mupirocin ointment (BACTROBAN) TOPICAL TID anticoagulant CPDA-1 39 mL, potassium chloride 36 mEq, sodium bicarbonate 45 mEq, Lidocaine HCl(PF) 180 mg in NaCl 0.9% 250 mL (CARDROPLEGIA SOLUTION - BAG 1) INTRACAVITY ONCE potassium chloride 25 mEq, Lidocaine HCl(PF) 100 mg in NaCl 0.9% 500 mL (CARDIOPLEGIA SOLUTION - BAG 2) INTRACAVITY ONCE heparin 1,500 Units in NaCl 0.9% 250 mL 1-5,000 Units/hr OTHER ONCE PHENYLephrine 20 mg in NaCl 0.9% 250 mL (NEOSYNEPHRINE) 25- 100 mcg/min INTRAVENOUS ONCE PHENYLephrine 10 mg in NaCl 0.9% 250 mL (NEOSYNEPHRINE) 25- 100 mcg/min INTRAVENOUS ONCE EPINEPHrine 4 mg in NaCl 0.9% 250 mL 0.5-4 mcg/min INTRAVENOUS ONCE insulin regular human 100 Units in NaCl 0.9% 100 mL 0.5 Units/hr INTRAVENOUS ONCE aminocaproic acid 10 g in NaCl 0.9% 250 mL (AMicAR) 1 g/hr INTRAVENOUS ONCE dexmedetomidine 400 mcg in NaCl 0.9% 100 mL (PRECEDEX) 0.2- 0.7 mcg/kg/hr ([place]) INTRAVENOUS ONCE nitroglycerin 100 mg in D5W 250 mL 5-200 mcg/min INTRAVENOUS ONCE nitroglycerin sublingual 0.4 mg tab(s) (NITROQUICK) 0.4 mg SUBLINGUAL PRN ipratropium-albuterol 3 mL nebulizer solution (DUONEB) 3 mL INHALATION QID 0.9% NaCl 3-5 mL 3-5 mL INTRAVENOUS q 12 H perflutren lipid microspheres 1.1 mg/mL 1.3 mL injection (DEFINITY) 1.3 mL INTRAVENOUS PRN(NO DISPENSE) DATA: Past 72 Hour Labs: Recent Labs 02/09/18 0407 02/09/18 0123 02/08/18 1210 02/08/18 0105 02/07/18 2243 02/07/18 1525 TROPI -- -- -- 39.700* < > -- 7.680* 0.93* WBC 8.26 -- -- -- < > 10.39* -- 8.9 RBC 4.45* -- -- -- < > 4.70 -- 5.06 HB 14.3 -- -- -- < > 15.1 -- 16.4 HCT 42.8 -- -- -- < > 43.4 -- 47.3 MCV 96.2* -- -- -- < > 92.3 -- 93.5 MCH 32.1 -- -- -- < > 32.1 -- 32.4* MCHC 33.4 -- -- -- < > 34.8 -- 34.7 PLT 187 -- -- -- < > 202 -- 258 MPV 10.0 -- -- -- < > 9.5 -- 9.6 GLUC 96 -- -- -- < > -- -- 111* BUN 12 -- -- -- < > -- -- 13 CREAT 0.90 -- -- -- < > -- -- 0.91 NA 139 -- -- -- < > -- -- 136 K 3.9 -- -- -- < > -- -- 4.0 CHLOR 108* -- -- -- < > -- -- 104 CO2 26 -- -- -- < > -- -- 25 TPROT -- -- -- -- -- -- -- 7.5 ALB -- -- -- -- -- -- -- 3.0* CA 8.7 -- -- -- < > -- -- 8.8 ALKPHOS -- -- -- -- -- -- -- 104 TBILI -- -- -- -- -- -- -- 0.4 AST -- -- -- -- -- -- -- 23 ALT -- -- -- -- -- -- -- 27 PTSEC -- -- -- -- -- 11.1 11.5 11.4 APTT -- 43.7* < > -- < > 28.3 -- -- INR -- -- -- -- -- 1.05 1.10 1.10 MG -- -- -- -- -- -- 2.3 -- < > = values in this interval not displayed. Last Lab Drawn: Triglyceride 63 02/07/2018 HDL Cholesterol 51 02/07/2018 LDL Calculated 110 02/07/2018 Cholesterol, Total 174 02/07/2018 Assessment/Plan 1.Nonstemi- severe 3vd on cath, EF 50%; needs CABG; CT surg consulted-CABG today 2.COPD-needs to stop smoking SIGNATURE: Juan Cabral MD PATIENT NAME: Jeffrey Cullen DATE: February 09, 2018 TIME: 6:41 AM PAGER/CONTACT #: [phone] HEMOGRAM Collected: 02/09/2018 Status: F Source: [facility] 4:07 AM HEALTH SYSTEM REPOSITORY TYPE CODE TESTS RESULT OUT OF REFERENCE UNITS RANGE LAB WBC(LOINC) 4.23-9.07 thou/cmm WBC 8.26 LAB RBC(LOINC) 4.63-6.08 mil/cmm Low RBC 4.45 LAB HGB(LOINC) 13.7-17.5 g/dL Hgb 14.3 LAB HCT(LOINC) 40.1-51.0 % Hct 42.8 LAB MCV(LOINC) 83.2-95.6 fl High MCV 96.2 LAB MCH(LOINC) 25.7-32.2 pg MCH 32.1 LAB MCHC(LOINC) 32.3-36.5 % MCHC 33.4 LAB RDW(LOINC) 11.6-14.4 % RDW 13.2 LAB RDWSD(LOINC 36.1-45.8 fl ) High RDW SD 47.0 LAB PLT(LOINC) 141-365 thou/cmm Platelet 187 LAB MPV(LOINC) 8.7-12.0 fl MPV 10.0 Performed By: #### CBC1 #### [facility] [address] [place] [address] BASIC PANEL Collected: 02/09/2018 Status: F Source: [facility] 4:07 AM HEALTH SYSTEM REPOSITORY TYPE CODE TESTS RESULT OUT OF REFERENCE UNITS RANGE LAB NA(LOINC) 136-145 mEq/L Sodium Blood 139 LAB K(LOINC) 3.5-5.1 mEq/L Potassium Blood 3.9 LAB CL(LOINC) 98-107 mEq/L Chloride High Blood 108 LAB CO2(LOINC) 21-32 mEq/L CO2 Blood 26 LAB GLU(LOINC) 70-99 mg/dL Glucose Blood 96 LAB BUN(LOINC) 7-18 mg/dL BUN Blood 12 LAB CREA(LOINC 0.67-1.17 mg/dL ) Creatinine Blood 0.90 LAB CA(LOINC) 8.5-10.1 mg/dL Calcium Blood 8.7 LAB ANGAP(LOIN 8-16 C) Anion Gap 9 Performed By: #### P8 #### [place] [address] MDRD GFR Collected: 02/09/2018 Status: F Source: [facility] 4:07 AM HEALTH SYSTEM REPOSITORY TYPE CODE TESTS RESULT OUT OF RANGE REFERENCE UNITS LAB GFRFN(LOINC >60mL/min/1.73m ) 2 eGFR >60 Result Comment: If the patient is , multiply the result by 1.210. Performed By: #### GFR #### [place] [address] ACTIVATED PTT Collected: 02/09/2018 Status: F Source: [facility] 1:23 AM HEALTH SYSTEM REPOSITORY TYPE CODE TESTS RESULT OUT OF REFERENCE UNITS RANGE LAB APTT(LOINC 22.0-34.0 sec ) High Activated PTT 43.7 Performed By: #### APTT #### [place] [address] OPERATIVE NO Observed: 02/09/2018 Status: COMPLETED Source: [place] 12:00 AM CLINIC OTHER CAMPUS REPOSITORY O ID: [id number] Author: Beata Marin Service: Thoracic Surgery Author Type: Physician Type: Operative Report Filed: 02/10/2018 6:24 PM Note Text: [facility] - Operative Report SURGEON: Beata Marin MD PATIENT NAME: JEFFREY CULLEN CSN: [id number] DATE OF SURGERY: 02/09/2018 DATE OF : 1950 SEX/AGE: M/67 PATIENT TYPE: I HOSP SVC: ICU LOCATION: [id number] DATE OF SURGERY: 02/09/2018 SURGEON: Beata Marin MD PREOPERATIVE DIAGNOSIS: Severe 3-vessel coronary disease with non-ST segment elevation myocardial infarction. POSTOPERATIVE DIAGNOSIS: Severe 3-vessel coronary disease with non-ST segment elevation myocardial infarction with extensive acute inferior wall infarction/ischemia. RIGHT OF WAY CLEARER: Kristin Orozco SA, and Nick Orosco SA. ANESTHESIA: General endotracheal. INDICATION AND FINDINGS: This patient is a 67-year-old male, who was admitted to the hospital with signs and symptoms consistent with coronary artery disease. He was found to have an NSTEMI, but had very significant rise of the enzymes into the 30-40 range. Cardiac catheterization showed significant 3-vessel coronary artery disease involving the anterior descending, circumflex, and right coronary system. There was a lot of haze and possible clot in the right coronary lesion thought to be the culprit. He underwent rapid preoperative evaluation and preparation and was brought to surgery today for surgical myocardial revascularization. The findings at the time of surgery showed the patient to have extensive inferior wall and RV inferior wall akinesia. This was confirmed both by EMMANUEL and upon opening the pericardium. The patient had a number of episodes of bradycardia and hypotension during and after induction of general anesthesia. The patient's anterior descending was about a 2 millimeter vessel. The right coronary artery Was at least 2.5 millimeter vessel. The circumflex was probably a 2.75-3 millimeter vessel. The saphenous vein was of fair quality. The KUMAR was 2 millimeter vessel with some thickening in the wall adequate flow. The post pump ventricular function showed that the caudal RV and the inferior wall appeared to be moving a little bit better and this was confirmed by EMMANUEL after revascularization, but this was on epi as well. DETAILS OF PROCEDURE: The patient was brought to the operating room from the CVICU and placed on the operative table in supine position. Intravenous access was obtained. Intra-arterial access was obtained. General endotracheal anesthesia was induced. Episodes of bradycardia and hypotension were treated appropriately with some atropine and epinephrine. He was able to be recovered to adequate heart rate and blood pressure to allow us to prep and drape in a surgical fashion rather than emergently. The heart was exposed through median sternotomy incision while Left greater saphenous vein was harvested endoscopically from the left leg and left thigh for use as conduit. The pericardium was opened. The dense changes in the inferior wall as noted above were noted. I then proceeded with placement of the aortic pursestrings and the right atrial pursestring so we would be ready to crash on pump if needed. His heart rate and hemodynamics had improved somewhat and this did allow us an opportunity to then take down his KUMAR from behind the left chest wall as a pedicled graft. Systemic heparin was administered. The KUMAR was triply hemoclipped distally, divided, and prepared for anastomosis, and stored in the left pleural space. The pericardium was cradled again. The patient had a dense thick calcific plaque in the right posterior lateral distal ascending aorta. We were able to avoid this with cannulation and with the cross-clamp. The mid ascending aorta appeared to be reasonable for use to accomplish his bypass surgery. The distal ascending aorta was cannulated for arterial return from the pump as was the vena cava via the right atrial appendage with a 2 stage venous cannula for venous drainage of the heart. The method of myocardial protection employed was blood cardioplegia given antegrade fashion, given down the vein grafts via an Octopus device, and given via coronary sinus catheter in retrograde fashion. All distal anastomoses and proximal anastomoses were constructed during a single cross-clamp episode. First graft to be done was the culprit vessel right coronary artery. This was 2.75-3 millimeter vessel. Arteriotomy was made just proximal to the crux. The end of segment saphenous vein was sutured to the arteriotomy with running 7-0 Prolene. Next graft to be done was the distal circumflex branch, which was a sizable double bifurcating, then trifurcating branch on the posterior wall. Arteriotomy was made. Second segment of saphenous vein was sutured to the arteriotomy with 7-0 Prolene. Next, the left internal mammary was brought through a rent in the pericardium lateral to the thymic fat pad. Arteriotomy was made in the anterior descending. End of KUMAR was sutured to the arteriotomy with running 7-0 Prolene. Bulldog clamp was briefly removed. Good filling was seen distally in the LAD as well as the diagonal. The bulldog clamp was replaced. The pedicle was then tacked to the epicardium on both sides of the anterior descending with 5-0 silk. Attention was then turned to the ascending aorta. The 2 proximal anastomoses were constructed with 4.4 millimeter aortic punch and running 6-0 Prolene. As we were completing the second proximal anastomosis, warm retrograde blood was given via the coronary sinus catheter to rewarm and resuscitate heart, and aid in de-airing the aortic root. The second proximal was completed, tied, and marked in standard fashion. Aortic cross-clamp was removed. The patient was then allowed adequate reperfusion and rewarming. During this time, the retrograde coronary sinus catheter was removed, its pursestring suture tied, and reinforced with 4-0 Prolene. Single right ventricular epicardial pacing wire was placed, tested, and ground wire was placed in the skin. He did require some initial pacing, but while we were still rewarming and reperfusing and checking for de-airing, his own sinus rhythm in the 70s came back and the pacemaker was no longer required. We then temporarily did ventilations of the lungs and allowed the heart to eject while we checked for de-airing the second time after another additional time of reperfusion. At this time, the inferior wall appeared to be moving slightly better. De-airing was deemed complete. Ventilations were held, cardiac ejections were stopped, cardioplegic venting apparatus was removed, and its 4-0 Prolene tied. After complete rewarming and adequate reperfusion, and with increase in the dose of epinephrine and additional reperfusion time, the inferior wall appeared to be moving slightly better. We were then able to separate from cardiopulmonary bypass on epinephrine inotropic support. Venous cannula was Removed, its pursestring suture was secured. After obtaining adequate cardiac function with stable hemodynamics, protamine was then administered to reverse the effects of the heparin. As we were completing the protamine dose, arterial cannula was removed, pursestring sutures were tied, and reinforced with 4-0 Prolene. After obtaining adequate hemostasis with continuing cardiac function and continued gradual improvement in the inferior wall, we then prepared to close. Right atrial pursestring was tied. Second tie was placed around the base of right appendage. The sternum was then approximated with multiple stainless steel wires. The remainder of the sternotomy incision was closed in layers with absorbable suture. Dermabond was placed. Chest tubes connected to water suction drainage device. We left in the special mediastinal Pleuraflow catheter and a left pleural tube. The endoscopic vein harvest incisions in the left lower extremity were closed as appropriate with absorbable suture and Dermabond was placed. The patient was then transported directly to the Cardiac Surgery Intensive Care Unit after correct sponge, needle, and instrument count. Beata Marin MD Cardiothoracic Surgery PS:carlyn /[id number] ACTIVATED PTT Collected: 02/08/2018 Status: F Source: [facility] 5:30 PM HEALTH SYSTEM REPOSITORY TYPE CODE TESTS RESULT OUT OF REFERENCE UNITS RANGE LAB APTT(LOINC 22.0-34.0 sec ) Activated PTT 25.8 Performed By: #### APTT #### [place] [address] CONSULT PROG Observed: 02/08/2018 Status: COMPLETED Source: [place] 3:21 PM CLINIC OTHER CAMPUS REPOSITORY HNO ID: [id number] Author: Vega Mosquera Service: Cardiac Surgery Author Type: Nurse Practitioner Type: Consult Progress Note Filed: 02/12/2018 11:02 AM Note Text: CTVS Surgery Pre-Op Open Heart Check List Patient Info: Jeffrey Chaudhari Subhash 1950 67 year old Review of patient's allergies indicates no known allergies. Last set of vitals: Wt: 104.3 kg (230 lb) BMI: 32.08 kg/(m2) BP 105/63 Pulse 76 Temp 36.4 ?C (97.5 ?F) (Temporal Artery) Resp 20 Ht 180.3 cm (5' 10.98) Wt 104.3 kg (229 lb 15 oz) SpO2 95% BMI 32.08 kg/m2 Wt: 104.3 kg (230 lb) BMI: 32.08 kg/(m2) Procedure: CABG Diagnosis: NSTEMI Date of Procedure: 02/09/2018 STS Risk Score: 0.707% CARE TEAM: Program Instructor: Marianna PCP: Richie De La Torre Other provider: N/A Pre-Op Testing: LABS: CBC, CMP, Mg, PT/INR, UA Not working Recent Labs 02/08/18 0700 02/08/18 0500 02/08/18 0105 02/07/18 2243 02/07/18 1525 HBA1C -- -- -- 5.1 -- RBC -- 4.50* 4.70 -- 5.06 WBC -- 11.59* 10.39* -- 8.9 HB -- 14.5 15.1 -- 16.4 HCT -- 42.8 43.4 -- 47.3 PLT -- 222 202 -- 258 INR -- -- 1.05 1.10 1.10 APTT 28.5 -- 28.3 -- -- NA -- 137 -- -- 136 K -- 4.2 -- -- 4.0 CHLOR -- 107 -- -- 104 CO2 -- 24 -- -- 25 BUN -- 11 -- -- 13 CREAT -- 0.85 -- -- 0.91 GLUC -- 109* -- -- 111* CA -- 8.5 -- -- 8.8 MG -- -- -- 2.3 -- P -- 2.9 -- -- -- TPROT -- -- -- -- 7.5 TBILI -- -- -- -- 0.4 ALKPHOS -- -- -- -- 104 ALT -- -- -- -- 27 AST -- -- -- -- 23 ANION -- 10 -- -- 11 - not working HGB (g/dL) Date Value 02/08/2018 14.5 Hematocrit (%) Date Value 02/08/2018 42.8 WBC (thou/cmm) Date Value 02/08/2018 11.59 Platelet Count (thou/cmm) Date Value 02/08/2018 222 Chemistry Glucose (mg/dL) Date Value 02/08/2018 109 Potassium (mEq/L) Date Value 02/08/2018 4.2 Sodium (mEq/L) Date Value 02/08/2018 137 Chloride (mEq/L) Date Value 02/08/2018 107 CO2 (mEq/L) Date Value 02/08/2018 24 Creatinine (mg/dL) Date Value 02/08/2018 0.85 BUN (mg/dL) Date Value 02/08/2018 11 Anion Gap (no units) Date Value 02/08/2018 10 Calcium (mg/dL) Date Value 02/08/2018 8.5 Protein, Total (g/dL) Date Value 02/07/2018 7.5 Albumin (g/dL) Date Value 02/07/2018 3.0 Bilirubin, Total (mg/dL) Date Value 02/07/2018 0.4 Alkaline Phosphatase (U/L) Date Value 02/07/2018 104 AST (U/L) Date Value 02/07/2018 23 ALT (U/L) Date Value 02/07/2018 27 Coag Recent Labs 02/08/18 0700 02/08/18 0105 02/07/18 2243 02/07/18 1525 APTT 28.5 28.3 -- -- INR -- 1.05 1.10 1.10 - not working Type AND Cross: O+ MRSA Screen: Negative HGA1C Lab Results Component Value Date HBA1C 5.1 02/07/2018 PFT/ABG: FEVI: PENDING DLCO: N/A ABG: N/A Recent Labs 02/08/18 0500 CO2 24 . IMAGING/PROCEDURES CXR: 02/07/2018 IMPRESSION: 1. Interstitial markings are diffusely prominent and coarsened which could indicate interstitial lung disease, interstitial edema, atypical infection or combination thereof. Cardiac Catheterization: -Severe three vessel coronary artery disease. -50% stenosis in the proximal to mid left anterior descending artery. -70% stenosis in the mid left anterior descending artery. -70% stenosis in the proximal left circumflex artery. -70% stenosis in the proximal left circumflex artery. -90% stenosis in the proximal right coronary artery. -90% occlusive thrombus in the proximal right coronary artery. -70% stenosis in the mid right coronary artery. -The left ventricular ejection fraction was 45%. -Mild hypokinesis of the inferior wall of the left ventricle. 2D Echo: 02/08/2018 EF: 48% Findings: Left Ventricle: Mildly dilated left ventricle. LVIDd is 5.9 cm. Mild left ventricular hypertrophy. Mild left ventricular systolic dysfunction. LVEF is visually estimated in the 45-50% range. The LVEF is 48 % by modified Sullivan's Biplane method. The Global Longitudinal Strain = -12.7%. Left ventricular dysfunction appears to be generalized, without regional wall motion abnormalities. Stage I diastolic dysfunction: Abnormal relaxation with normal filling pressures. Right Ventricle: Normal right ventricular size and systolic function. Left Atrium: The left atrium appears normal in size. ROEL is 27.18 ml/m2. Right Atrium: The right atrium appears normal in size. The right atrium measures 15 cm2 by planimetry in the apical 4-chamber view. Mitral Valve: Structurally normal mitral valve with trivial mitral regurgitation. Aortic Valve: The aortic valve is structurally normal and trileaflet, without evidence of stenosis or regurgitation. Tricuspid Valve: Structurally normal tricuspid valve with trivial tricuspid regurgitation. RVSP could not be reliably estimated due to limited Doppler signal across the tricuspid valve. Pulmonic Valve: The pulmonic valve is not well visualized. No Doppler evidence of stenosis or insufficiency. Pulmonary Artery: The pulmonary artery is not well visualized. Ascending Aorta: The aorta measures 3.6 cm at the level of the sinuses of Valsalva and 3.6 cm at the mid ascending level. Pericardium: No evidence of pericardial effusion. Cardiac Shunt: There is no evidence of interatrial shunting by color Doppler. Vena Cava: The inferior vena cava is dilated and collapses (>50%) with inspiration. Right atrial pressure is estimated at 8 mmHg. 5 Meter Walk Test: N/A OPTIONAL TESTINGS: Carotid U/S: 02/08/2018 IMPRESSION: On the basis noninvasive vascular study, by?velocity criteria, there is less than 50% stenosis of the right and left internal carotid arteries. ?The vertebral arteries are antegrade. Lower EXT ANGELICA: N/A Palmar Arch: N/a Vein Mapping: n/a Dental Clearance: n/a CT Chest: N/A Medications Notes: . Blood thinners: Patient is on following blood thinners: none Beta Krystle: Last dose of beta krystle taken: CLEARANCES NEEDED Pulmonary: Yes GI: No Hematology: No Other: No Vega Mosquera CNP; Misti Stein PA-C CONSULT Observed: 02/08/2018 Status: COMPLETED Source: [place] 2:54 PM CLINIC OTHER CAMPUS REPOSITORY HNO ID: [id number] Author: Misti Stein (Pa) Service: Cardiac Surgery Author Type: Physician Tool Inspector Type: Consults Filed: 02/08/2018 4:41 PM Note Text: CARDIOTHORACIC SURGERY CONSULT / HANDP SERVICE DATE: 02/08/2018 SERVICE TIME: 2:54 PM Subjective PRIMARY SERVICE: Cardiothoracic Surgery CHIEF COMPLAINT: Chest pain HPI: This is a 67 year old male with h/o smoking (2ppd x 30 yr) who presented to [place] ED 02/07 with sharp chest pain rated 10+/10 with associated diaphoresis, SOB, and dizziness. Patient states the onset of chest pain occurred while he was sitting on the couch. He attributed it to heart burn, so he took pepto bismol and vomited shortly after. He then called his friend to take him to the ED where they found an elevated troponin and non-specific EKG changes (possible slight ST depressions in I, AVL, V6). They started Heparin and arranged for transfer to [facility] on 02/07. Cardiac Cath was performed in the am to reveal severe 3 vessel disease and mild inferior wall hypokinesis. Patient denies current CP, SOB, or abdominal pain. Patient is Able to Perform the Following Physical Activity: Take care of self; that is eating, dressing, bathing, using the toilet (2.75 METs) Patient has the following medical comorbidities which might affect the perioperative course: - No known medical conditions No past medical history on file. PAST SURGICAL HISTORY Procedure Laterality Date - ORTHOPEDICS SURGERY HX - REPAIR ING HERNIA,5+Y/O,REDUCIBL 1989 Hernia repair, inguinal,left FAMILY HISTORY Problem Relation Age of Onset - Alcohol/Drug Father - Colon Cancer Mother - Diabetes Mother Social History Substance Use Topics - Smoking status: Current Every Day Smoker Packs/day: 2.00 Years: 25.00 Types: Cigarettes - Smokeless tobacco: Not on file - Alcohol use No Prescriptions Prior to Admission: hydrocodone/ibuprofen(VICOPROFEN 7.5 MG-200 MG TAB) as necessary Disp: Rfl: 0 hydrocodone/ibuprofen(VICOPROFEN 7.5 MG-200 MG TAB) as necessary ALLERGIES No Known Allergies REVIEW OF SYSTEMS: PAIN ASSESSMENT: Negative for pain, history of chronic pain, or current treatment for a chronic pain condition. GENERAL: No weight loss, malaise or fevers HEENT: Negative for frequent or significant headaches, No changes in hearing or vision, no nose bleeds or other nasal problems NECK: Negative for lumps, goiter, pain and significant neck swelling RESPIRATORY: Negative for cough, wheezing or shortness of breath. CARDIOVASCULAR: Negative for leg swelling palpitations claudication orthopnea paroxysmal nocturnal dyspnea, Positive for chest pain 10/10 GI: Negative for abdominal discomfort, blood in stools or black stools or change in bowel habits : No history of dysuria, frequency or incontinence SKIN: Negative for lesions, rash, and itching. Objective PHYSICAL EXAM: BP 105/63 Pulse 76 Temp 36.4 ?C (97.5 ?F) (Temporal Artery) Resp 20 Ht 180.3 cm (5' 10.98) Wt 104.3 kg (229 lb 15 oz) SpO2 95% BMI 32.08 kg/m2 Body surface area is 2.29 meters squared. STS RISK CALCULATOR: STS Calculator General Appearance: Well developed and well nourished appearance. No acute distress. Skin: No rash on chest, arms or legs. Warm, dry. Lungs: Normal respiratory effort. Clear lungs without rhonchi, rales, wheezing. Heart: regular rhythm and S1, S2 normal Abdomen: soft, non-tender and bowel sounds present Neurologic/Psychiatric: Oriented to person, place, time. Normal affect. No gross focal neurologic deficits. Extremities: no edema Lines, Drains, and Airways Line Peripheral 02/07/18 1600 Admission to Hospital Short Right Antecubital less than 1 day Peripheral 02/08/18 0100 Short Right Arm 20 Gauge less than 1 day Peripheral 02/08/18 0700 Short Left Forearm less than 1 day @LDAASSESS(2::::8:)@ DATA: Diagnostic tests reviewed for today's visit: Cardiac Catheterization: -Severe three vessel coronary artery disease. -50% stenosis in the proximal to mid left anterior descending artery. -70% stenosis in the mid left anterior descending artery. -70% stenosis in the proximal left circumflex artery. -70% stenosis in the proximal left circumflex artery. -90% stenosis in the proximal right coronary artery. -90% occlusive thrombus in the proximal right coronary artery. -70% stenosis in the mid right coronary artery. -The left ventricular ejection fraction was 45%. -Mild hypokinesis of the inferior wall of the left ventricle. Chest X-RAY: Interstitial markings are diffusely prominent and coarsened which could indicate interstitial lung disease, interstitial edema, atypical infection or combination thereof. ECHO: Left Ventricle -Mildly dilated left ventricle. LVIDd is 5.9 cm. Mild left ventricular hypertrophy. -Mild left ventricular systolic dysfunction. LVEF is visually estimated in the 45-50% range. -The LVEF is 48 % by modified Sullivan's Biplane method. -The Global Longitudinal Strain = -12.7%. -Left ventricular dysfunction appears to be generalized, without regional wall motion abnormalities. -Stage I diastolic dysfunction: Abnormal relaxation with normal filling pressures. Right Ventricle -Normal right ventricular size and systolic function. Left Atrium -The left atrium appears normal in size. ROEL is 27.18 ml/m2. Right Atrium -The right atrium appears normal in size. -The right atrium measures 15 cm2 by planimetry in the apical 4-chamber view. Mitral Valve -Structurally normal mitral valve with trivial mitral regurgitation. Aortic Valve -The aortic valve is structurally normal and trileaflet, without evidence of stenosis or regurgitation. Tricuspid Valve -Structurally normal tricuspid valve with trivial tricuspid regurgitation. -RVSP could not be reliably estimated due to limited Doppler signal across the tricuspid valve. Pulmonic Valve -The pulmonic valve is not well visualized. No Doppler evidence of stenosis or insufficiency. Pulmonary Artery -The pulmonary artery is not well visualized. Ascending Aorta -The aorta measures 3.6 cm at the level of the sinuses of Valsalva and 3.6 cm at the mid ascending level. Pericardium -No evidence of pericardial effusion. Cardiac Shunt -There is no evidence of interatrial shunting by color Doppler. Vena Cava -The inferior vena cava is dilated and collapses (>50%) with inspiration. -Right atrial pressure is estimated at 8 mmHg. Recent Labs 02/08/18 0700 02/08/18 0500 02/08/18 0105 02/07/18 2243 02/07/18 1525 HBA1C -- -- -- 5.1 -- RBC -- 4.50* 4.70 -- 5.06 WBC -- 11.59* 10.39* -- 8.9 HB -- 14.5 15.1 -- 16.4 HCT -- 42.8 43.4 -- 47.3 PLT -- 222 202 -- 258 INR -- -- 1.05 1.10 1.10 APTT 28.5 -- 28.3 -- -- NA -- 137 -- -- 136 K -- 4.2 -- -- 4.0 CHLOR -- 107 -- -- 104 CO2 -- 24 -- -- 25 BUN -- 11 -- -- 13 CREAT -- 0.85 -- -- 0.91 GLUC -- 109* -- -- 111* CA -- 8.5 -- -- 8.8 MG -- -- -- 2.3 -- P -- 2.9 -- -- -- TPROT -- -- -- -- 7.5 TBILI -- -- -- -- 0.4 ALKPHOS -- -- -- -- 104 ALT -- -- -- -- 27 AST -- -- -- -- 23 ANION -- 10 -- -- 11 Assessment/Plan NSTEMI -continue heparin drip -continue ASA, Statin, BB -nitro drip if CP continues -Scheduled for CABG with Dr. Marin on 02/09/18 Tobacco use -Cessation Education Tests/Labs Ordered: 1. None These findings will be communicated back to the requesting provider electronically. SIGNATURE: Misti Stein PA-C PATIENT NAME: Jeffrey Cullen DATE: February 08, 2018 TIME: 2:54 PM PAGER/CONTACT #:[id number] ETX [id number] CDVI B MODE Observed: 02/08/2018 Status: F Source: [facility] 12:45 PM HEALTH SYSTEM REPOSITORY Performed at [facility] APPROVED BY: NORMA BOYLE MD EXAM TITLE: BILATERAL CAROTID ULTRASOUND DATE:02/08/2018 12:00 CLINICAL INDICATION/HISTORY: History of vertigo, preop CABG TECHNIQUE: FINDINGS: When looking the right carotid system, maximum velocity in the right common carotid artery is 84 cm/s the proximal common carotid artery. In the internal carotid artery the maximum velocities 90 cm/s t he distal internal carotid artery. This correlates the ratio 1.17. There is a mild degree of congestive plaque in the right carotid system. The vertebral arteries antegrade. When looking at the left carotid system, maximum velocity in the left common carotid arteries 92 cm/s the proximal common carotid artery. In the internal carotid artery the maximum velocities 93 cm/s t he proximal internal carotid artery. This correlates the ratio of 1.01. There is mild degree of calcific plaque in the left carotid system. The vertebral arteries antegrade. IMPRESSION: On the basis noninvasive vascular study, by velocity criteria, there is less than 50% stenosis of the right and left internal carotid arteries. The vertebral arteries are antegrade. 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 Redraw patient at that time. Performed By: #### T&S #### [place] [address] RBC PRODUCTS Collected: 02/08/2018 Status: F Source: [facility] 12:10 HEALTH SYSTEM REPOSITORY TYPE CODE TESTS RESULT OUT OF REFERENCE UNITS RANGE LAB UNIT1(LOINC ) Xmatch Unit 1 see below Result Comment: Compatible LAB UNIT2(LOINC) Xmatch Unit 2 see below Result Comment: Compatible Performed By: #### RBCPS #### [place] [address] PROGRESS Observed: 02/08/2018 Status: COMPLETED Source: [place] 10:24 AM [facility] REPOSITORY HNO ID: [id number] Author: Juan Cabral Service: Cardiovascular Medicine Author Type: Physician Type: Progress Notes Filed: 02/08/2018 10:24 AM Note Text: Result Noted. Patient is currently hospitalized and managed by the in-patient team. Juan Cabral MD TROPONIN I Collected: 02/08/2018 Status: F Source: [facility] 9:10 AM HEALTH SYSTEM REPOSITORY TYPE CODE TESTS RESULT OUT OF REFERENCE UNITS RANGE LAB TROP(LOINC) 0.015-0.045 ng/ml High alert Troponin I 45.200 Performed By: #### TROP #### [place] [address] ACT Collected: 02/08/2018 Status: F Source: [facility] 8:19 AM HEALTH SYSTEM REPOSITORY TYPE CODE TESTS RESULT OUT OF RANGE REFERENCE UNITS LAB ACT(LOINC) 89-169 sec ACT 90 Performed By: #### ACT #### [place] [address] PROGRESS Observed: 02/08/2018 Status: COMPLETED Source: [place] 8:05 AM [facility] REPOSITORY HNO ID: [id number] Author: Juan Cabral Service: Cardiovascular Medicine Author Type: Physician Type: Progress Notes Filed: 02/08/2018 8:05 AM Note Text: Result Noted. Patient is currently hospitalized and managed by the in-patient team. Juan Cabral MD ACTIVATED PTT Collected: 02/08/2018 Status: F Source: [facility] 7:00 AM HEALTH SYSTEM REPOSITORY TYPE CODE TESTS RESULT OUT OF REFERENCE UNITS RANGE LAB APTT(LOINC 22.0-34.0 sec ) Activated PTT 28.5 Performed By: #### APTT #### [place] [address] HEMOGRAM Collected: 02/08/2018 Status: F Source: [facility] 5:00 AM HEALTH SYSTEM REPOSITORY TYPE CODE TESTS RESULT OUT OF REFERENCE UNITS RANGE LAB WBC(LOINC) 4.23-9.07 thou/cmm High WBC 11.59 LAB RBC(LOINC) 4.63-6.08 mil/cmm Low RBC 4.50 LAB HGB(LOINC) 13.7-17.5 g/dL Hgb 14.5 LAB HCT(LOINC) 40.1-51.0 % Hct 42.8 LAB MCV(LOINC) 83.2-95.6 fl MCV 95.1 LAB MCH(LOINC) 25.7-32.2 pg MCH 32.2 LAB MCHC(LOINC) 32.3-36.5 % MCHC 33.9 LAB RDW(LOINC) 11.6-14.4 % RDW 13.2 LAB RDWSD(LOINC 36.1-45.8 fl ) High RDW SD 46.5 LAB PLT(LOINC) 141-365 thou/cmm Platelet 222 LAB MPV(LOINC) 8.7-12.0 fl MPV 9.6 Performed By: #### CBC1 #### [facility] [address] [place], [place] [address] TROPONIN I Collected: 02/08/2018 Status: F Source: [facility] 5:00 HEALTH SYSTEM REPOSITORY TYPE CODE TESTS RESULT OUT OF REFERENCE UNITS RANGE LAB TROP(LOINC) 0.015-0.045 ng/ml High alert Troponin I 31.200 Performed By: #### TROP #### [facility] [address] [place], [place] [address] BASIC PANEL Collected: 02/08/2018 Status: F Source: [facility] 5:00 [facility] REPOSITORY TYPE CODE TESTS RESULT OUT OF REFERENCE UNITS RANGE LAB NA(LOINC) 136-145 mEq/L Sodium Blood 137 LAB K(LOINC) 3.5-5.1 mEq/L Potassium Blood 4.2 LAB CL(LOINC) 98-107 mEq/L Chloride Blood 107 LAB CO2(LOINC) 21-32 mEq/L CO2 Blood 24 LAB GLU(LOINC) 70-99 mg/dL Glucose High Blood 109 LAB BUN(LOINC) 7-18 mg/dL BUN Blood 11 LAB CREA(LOINC 0.67-1.17 mg/dL ) Creatinine Blood 0.85 LAB CA(LOINC) 8.5-10.1 mg/dL Calcium Blood 8.5 LAB ANGAP(LOIN 8-16 C) Anion Gap 10 Performed By: #### P8 #### [facility] [address] [place] [address] MDRD GFR Collected: 02/08/2018 Status: F Source: [facility] 5:00 AM HEALTH SYSTEM REPOSITORY TYPE CODE TESTS RESULT OUT OF RANGE REFERENCE UNITS LAB GFRFN(LOINC >60mL/min/1.73m ) 2 eGFR >60 Result Comment: If the patient is , multiply the result by 1.210. Performed By: #### GFR #### [facility] [address] [place] [address] PHOSPHORUS BLOOD Collected: 02/08/2018 Status: F Source: [facility] 5:00 AM HEALTH SYSTEM REPOSITORY TYPE CODE TESTS RESULT OUT OF REFERENCE UNITS RANGE LAB PHOS(LOINC 2.5-4.9 mg/dL ) Phosphorus Blood 2.9 Performed By: #### PHOS #### [facility] [address] [place] [address] TROPONIN I Collected: 02/08/2018 Status: F Source: [facility] 2:00 AM HEALTH SYSTEM REPOSITORY TYPE CODE TESTS RESULT OUT OF REFERENCE UNITS RANGE LAB TROP(LOINC) 0.015-0.045 ng/ml High alert Troponin I 14.000 Performed By: #### TROP #### [place] [address] HEMOGRAM Collected: 02/08/2018 Status: F Source: [facility] 1:05 AM HEALTH SYSTEM REPOSITORY TYPE CODE TESTS RESULT OUT OF REFERENCE UNITS RANGE LAB WBC(LOINC) 4.23-9.07 thou/cmm High WBC 10.39 LAB RBC(LOINC) 4.63-6.08 mil/cmm RBC 4.70 LAB HGB(LOINC) 13.7-17.5 g/dL Hgb 15.1 LAB HCT(LOINC) 40.1-51.0 % Hct 43.4 LAB MCV(LOINC) 83.2-95.6 fl MCV 92.3 LAB MCH(LOINC) 25.7-32.2 pg MCH 32.1 LAB MCHC(LOINC) 32.3-36.5 % MCHC 34.8 LAB RDW(LOINC) 11.6-14.4 % RDW 13.2 LAB RDWSD(LOINC 36.1-45.8 fl ) RDW SD 44.6 LAB PLT(LOINC) 141-365 thou/cmm Platelet 202 LAB MPV(LOINC) 8.7-12.0 fl MPV 9.5 Performed By: #### CBC1 #### [facility] [address] [place] [address] ACTIVATED PTT Collected: 02/08/2018 Status: F Source: [facility] 1:05 AM HEALTH SYSTEM REPOSITORY TYPE CODE TESTS RESULT OUT OF REFERENCE UNITS RANGE LAB APTT(LOINC 22.0-34.0 sec ) Activated PTT 28.3 Performed By: #### APTT #### [place] [address] PROTIME Collected: 02/08/2018 Status: F Source: [facility] 1:05 HEALTH SYSTEM REPOSITORY TYPE CODE TESTS RESULT OUT OF REFERENCE UNITS RANGE LAB PTI(LOINC) 9.3-11.9 sec Prothrombin Time 11.1 LAB INR(LOINC) INR 1.05 Result Comment: Standard Therapy 2.0-3.0 High Dose 2.5-3.5 Performed By: #### PT #### [facility] [address] [place] [address] Observed: 02/08/2018 Status: F Source: [facility] MRSA SCREEN 1:05 AM HEALTH SYSTEM REPOSITORY Test performed at [facility] No MRSA detected. Performed By: #### MRSA #### [place] [address] PROGRESS Observed: 02/08/2018 Status: COMPLETED Source: [place] 12:29 AM CLINIC OTHER CAMPUS REPOSITORY HNO ID: [id number] Author: Choco Godoy (Maco) Miugel Service: Critical Care Author Type: Resident Type: Progress Notes Filed: 02/08/2018 12:32 AM Note Text: Was paged by RN about critical troponin of 7.6 which increased from 0.9. Evaluated patient who claims that his chest pain is back again and is of greater severity. He rated it an 8/10. After taking another SL Nitroglycerin, he stated that pain is decreasing in intensity but it still persists. His blood pressures remained stable during the process. Patient will be moved to the CVICU and will be started on a Nitroglycerin drip. Explained to the patient the need to move to a critical care unit. D/W Dr. Cabral who agrees with the above. Choco Rivera MD 02/08/18 12:32 AM Internal Medicine Pager: [phone] CONSULT Observed: 02/08/2018 Status: COMPLETED Source: [place] 12:00 AM CLINIC OTHER CAMPUS REPOSITORY [facility] ID: [id number] Author: Beata Marin Service: Thoracic Surgery Author Type: Physician Type: Consults Filed: 02/10/2018 5:51 PM Note Text: [facility] - Consultation PATIENT NAME: JEFFREY CULLEN CSN: [id number] DATE OF : 1950 SEX/AGE: M/67 PATIENT TYPE: I HOSP SVC: ICU LOCATION: [id number] 02/08/2018 REASON FOR CONSULTATION: Consideration for coronary artery bypass grafting surgery during the current admission. REQUESTING PHYSICIAN: Dr. Brice. MEDICAL PAYMENT POSTER: Dr. Marin. HISTORY OF PRESENT ILLNESS: This patient is a 67-year-old male with his apparent first hospital admission for symptomatic coronary artery disease. The patient had sudden onset of substernal chest pain on the day of admission, and he went to the emergency room as it continued to persist. He was given aspirin, sublingual nitro, and the pain persisted. He apparently did develop some hypotension with a blood pressure in the 80s. He then corrected his blood pressure and remained chest pain free. His troponin enzymes are positive reaching as high as 31.2 this morning at 0557. The patient underwent cardiac catheterization today, which shows significant stenosis in the right coronary artery, circumflex system, and LAD systems. The patient was felt to be better served by bypass grafting surgery rather than stent treatment. The ejection fraction of about 30 to 35, though on the post PVC beat, the ejection fraction may have been a little higher. The patient's echo is still pending. His risk factors include his age and a greater than 2 pack per day cigarette smoking history for at least 40 years. FAMILY HISTORY: The patient does not mention a close blood relative having bypass grafting surgery or heart attacks at a young age. MEDICATIONS: The patient's home medications were very little. Now, he is on appropriate cardiac medications. PAST MEDICAL HISTORY: The patient basically has not seen doctors for many, many years and feels that he is healthy. Denies previous diagnosis or treatment for hypertension, liver disease, kidney disease, previous myocardial infarction, congestive heart failure, or stroke. PAST SURGICAL HISTORY: Notable for a right knee replacement, bilateral inguinal hernia repairs, ORIF of the left ankle with metal still in place. He has had bilateral cataract surgeries with lens implants and has a good result. He also has a good result with his right knee. 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 Therefore, he walks a lot. He has the above- noted 80 pack-year cigarette smoking history. Alcohol intake is denied. FAMILY HISTORY: There is a history of colon cancer and diabetes in the patient's mother. Alcohol use in the father. Denies either of them with bypass grafting surgery. OTHER REVIEW OF SYSTEMS: Prior to admission is mostly remarkable for those in the history of present illness. No major recent change in the bowel habits. No blood in the stools. No blood in the urine. Denies any previous history of TIA or strokes. No known cancer previously. No known immune problems previously. RESPIRATORY: Chronic tobacco use. PHYSICAL EXAMINATION: GENERAL: Reveals a well-developed, well-nourished male, supine with oxygen in place. Looks somewhat unhappy at all of the news. HEENT: Shows PERRL and EOMI. External canals and external nares are grossly clear. Tongue protrudes in midline. NECK: Examination of the neck revealed palpable carotid pulses. CARDIAC: Reveals regular rhythm without obvious murmur or rub. LUNGS: Clear anteriorly. UPPER EXTREMITY EXAM: Shows radial pulses to be 2+/4+ bilaterally. ABDOMEN: Soft, protuberant. Bowel sounds present. LOWER EXTREMITIES: Shows the patient to have palpable dorsalis pedis and posterior tibial pulses bilaterally. No edema. He appears to have adequate saphenous vein. There is no history of vein stripping. LABORATORY EVALUATION: Troponin enzymes as noted above. His white blood count 11.59, hemoglobin 14.5, hematocrit 42.8, platelet count 222. BUN and creatinine 11 and 0.85. PT/INR normal. INR of 1.05. MRSA screening is pending. Echo is pending. PFTs are pending. Further blood work is pending. IMPRESSION: 1. Significant 3-vessel coronary artery disease with a sizable non-ST elevation myocardial infarction with impaired ventricular function. 2. No medical care for years. 3. Chronic significant tobacco use. 4. Extensive previous surgical history as noted above. PLANS AND RECOMMENDATION: The patient was seen in consultation for consideration for coronary artery bypass grafting surgery. I have discussed the benefits, risks, indications, and alternatives to coronary bypass grafting surgery with the patient and some family members present at the bedside. Major risks discussed include, but are not limited to infection, bleeding, myocardial infarction, stroke, , pneumonia, wound complication, wound infection, blood transfusion with associated risks of AIDS and hepatitis transmission, occasional need for reoperation for bleeding or other complications and the fact that this is reparative surgery and is not a cure for the disease. The expected operative time, intensive care unit time, hospitalization time, and recovery time at home were all discussed in some detail. The patient states he has no further questions at this time and would like to proceed with surgery tomorrow, if possible, pending completion of his preoperative workup and evaluation including carotid ultrasounds per Cardiology, echo pending, and PFTs pending. Beata Marin MD Cardiothoracic Surgery PS:carlyn /[id number] NURSING PROG Observed: 02/07/2018 Status: COMPLETED Source: [place] 11:12 PM CLINIC OTHER CAMPUS REPOSITORY [facility] ID: [id number] Author: Gio (Rn) RAINA Singer Service: (none) Author Type: Registered Nurse Type: Nursing Progress Note Filed: 02/08/2018 1:15 AM Note Text: Nursing Progress Note Patient Name: Jeffrey Cullen Patient Location: [id number]* Daily Note: 02/07/20182029: Report called from [facility] by 'Aida.' 2114: Patient arrived to 4100. 2129: Patient arrived with 22g in right hand that needed removal. 2199: Dr. Mario (Dr. Villavicencio) notified in person about patient's run of V-tach. Dr. Villavicencio ordered STAT Troponin collection, EKG, Nitroglycerin administration for patient who stated 6 out of [address] Villavicencio verbalized to keep the patient at 1000units/hr with the Heparin drip they arrived with. 2215: Patient stated chest pain relief. 235: Lab, 'Nicole,' called with a critical value for Troponin of 7.680. Sound paged. 2355: Sound returned call and notified about the critical value. Told to notify CVICU. 02/08/2018 0000: CVICU came to the unit; I notified them of the critical troponin value. 0030: Report given to Mindy ALFARO in NSICU. 0045: Patient transferred 0115: Notified NSICU that RI's medications are not up here. This note was completed by: Gio Singer RN CONSULT Observed: 02/07/2018 Status: COMPLETED Source: [place] 10:53 PM CLINIC OTHER CAMPUS REPOSITORY [facility] ID: [id number] Author: Juan Cabral Service: Critical Care Author Type: Physician Type: Consults Filed: 02/08/2018 6:47 AM Note Text: SERVICE DATE: 02/07/2018 SERVICE TIME: 10:54 PM CC: Chest pain HPI: This is a 67 year old male with a significant smoking history of 2 PPD for about 45 years who comes in with complaints of chest pain. He states that his chest pain started while he was sitting on his couch and it progressively worsened as he sat on the couch. He also admitted to having difficulty with breathing along with some lightheadedness. His chest pain persisted upto his presentation to the ED where he received 2 NTG which did not relieve his pain. He received another 2 NTG which relieved his pain but also dropped his blood pressures to the 80s systolic. His blood pressures recovered spontaneously. Even when the chest pain is relieved he does admit to having shortness of breath at rest. 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 He states that he does get short of breath every time he goes hunting but it is relieved by rest and albuterol. He does admit to seeing his PCP but is vague about it. He claims he is in good health and denies any history of HTN, HLP or history of premature CAD in his family. Patient was found to have a run of NSVT which last 21 beats. Jeffrey Chaudhari Nicholasevita has a pertinent PMH for: Past Medical History: No past medical history on file. Past Surgical History: PAST SURGICAL HISTORY Procedure Laterality Date - ORTHOPEDICS SURGERY HX - REPAIR ING HERNIA,5+Y/O,REDUCIBL 1990 Hernia repair, inguinal,left Family History: FAMILY HISTORY Problem Relation Age of Onset - Alcohol/Drug Father - Colon Cancer Mother - Diabetes Mother Social History: Social History Substance Use Topics - Smoking status: Current Every Day Smoker Packs/day: 2.00 Years: 25.00 Types: Cigarettes - Smokeless tobacco: Not on file - Alcohol use No Medications: Prior to Admission Medications: hydrocodone/ibuprofen(VICOPROFEN 7.5 MG-200 MG TAB) as necessary Current hospital medications: aspirin 81 mg chewable tab(s) 81 mg ORAL DAILY atorvastatin 80 mg tab(s) (LIPITOR) 80 mg ORAL AT BEDTIME heparin iv infusion (LOW DOSE ACS/NOMOGRAM) 25,000 units in NaCl 0.45% 250 mL PREMIX 0-3,000 Units/hr INTRAVENOUS CONTINUOUS heparin RATE CHANGE bolus 1,000-4,000 Units for subtherapeutic aptt results 1,000-4,000 Units INTRAVENOUS PRN heparin nomogram - NO INITIAL BOLUS OTHER ONCE (heparin bolus) nitroglycerin sublingual 0.4 mg tab(s) (NITROQUICK) 0.4 mg SUBLINGUAL PRN ipratropium-albuterol 3 mL nebulizer solution (DUONEB) 3 mL INHALATION QID 0.9% NaCl 3-5 mL 3-5 mL INTRAVENOUS q 12 H perflutren lipid microspheres 1.1 mg/mL 1.3 mL injection (DEFINITY) 1.3 mL INTRAVENOUS PRN(NO DISPENSE) Allergies: ALLERGIES No Known Allergies Review of Systems: General: Denies fevers, chills, malaise, or weight changes Respiratory: Admits to dyspnea on exertion. No cough or wheezing. Cardiovascular: Chest pain +, SOB +. No lightheadedness, orthopnea, PND GI: Denies abdominal pain, nausea, vomiting, diarrhea or constipation Endocrine: Polyuria and polydypsia present. No heat or cold intolerance Hematology: Denies any history of bleeding or clotting disorders Musculoskeletal: Denies any back pain or muscle aches Neuro: Denies any weakness or sensory deficits. No tingling numbness Psychiatry: Denies any history of anxiety or depression Physical Exam: Patient Vitals for the past 24 hrs: BP Temp Temp src Pulse Resp SpO2 02/07/18 2231 118/78 - - - - - 02/07/18 2208 147/95 36.8 ?C (98.2 ?F) Oral 91 20 94 % General Appearance: Alert and oriented x 3 HEENT: pupils equal normal lids Respiratory: clear to auscultation bilaterally, no wheezes, ronchi or crackles Prolonged expir; no access m use Cardiovascular: regular rate and rhythm, no murmurs, rubs or gallops no RV lift Gastrointestinal: soft, non tender, non distended. Bowel sounds present in all quadrants. No hepatosplenomegaly Extremities: No edema, cyanosis or rash. 2+ distal pulses bilaterally in dorsalis pedis. 2+ bilat radial pulses Neuro: nl mentation. No motor or sensory deficits. Reflexes 2+ in all extremities. Skin-no bruising normal warmth Pleasant affect nl speech Laboratory and diagnostic imaging: CBC Recent Labs 02/07/18 1525 WBC 8.9 RBC 5.06 HB 16.4 HCT 47.3 MCV 93.5 MCH 32.4* MCHC 34.7 PLT 258 MPV 9.6 CMP Recent Labs 02/07/18 1525 NA 136 K 4.0 CHLOR 104 CO2 25 GLUC 111* BUN 13 CREAT 0.91 ALB 3.0* CA 8.8 ALKPHOS 104 TBILI 0.4 AST 23 ALT 27 TPROT 7.5 PTSEC 11.4 INR 1.10 EKG NSR nsst elev infer and nsst depress precordial leads Cardiac evaluation Recent Labs 02/07/18 1525 TROPI 0.93* Risk Stratification No results found for this basename: HBA1C,TSH,PROBNP,TG,HDL,LDL,CHOL Weights Last 12 Encounter Wt Readings: Date: Wt: 02/07/2018 104.3 kg (230 lb) 12/04/2007 100.2 kg (221 lb) EKG: Normal Sinus Rhythm with non specific T wave abnormality. Lead 3: <1mm ZULEYMA with Twave inversion Imaging CXR: Interstitial markings are diffusely prominent and coarsened which could indicate interstitial lung disease, interstitial edema, atypical infection or combination thereof Prior Cardiac work up Echo: None LHC: None Stress Test: None Assessment and Plan 1) NSTEMI: Likely type 1 in light of his typical chest pain - Has been started on a heparin drip, NTG drip - Trend troponins every 6 hours - Has been started on aspirin and statin - Will also start metoprolol to better control his heart rate - If chest pain does not improve, will start Nitroglycerin drip. Monitor blood pressure after NTG. - Will need a LHC to evaluate his coronaries - Echo in the morning - Risk stratification labs - A1c and lipid panel were already ordered. Chest pain free but rising trop, runs NSVT; proceed with urgent cath Reviewed risk/benefit /altern with pt who understands and agrees to proceed; consent obtained; R radial approach 2) NSVT: Likele 2/2 underlying ischemia - Keep K>4 and Mg > 2; IV amio if persists 3) Tobacco abuse - Significant smoking history 2 PPD for the past 45 years - Counseled to which patient says Every one has to 4.Lipids-on statin now 4) DVT ppx - Already on the heparin drip Patient Checklist Code Status: Full Code Discussed with attending, Dr. Cabral who is in agreement with the assessment and plan Attending Note I evaluated the patient and personally participated in the hernandez components. I agree with the resident's findings and plan as documented and have discussed the case and management of the patient's care with the resident. Cc time 30 minutes Signature: Juan Cabral MD Pager [phone]: 02/08/2018 Time: 6:42 AM Choco Rivera MD Internal Medicine, PGYIII Pager: [phone] February 07, 2018 10:54 PM PROTIME Collected: 02/07/2018 Status: F Source: [facility] 10:43 PM HEALTH SYSTEM REPOSITORY TYPE CODE TESTS RESULT OUT OF REFERENCE UNITS RANGE LAB PTI(LOINC) 9.3-11.9 sec Prothrombin Time 11.5 LAB INR(LOINC) INR 1.10 Result Comment: Standard Therapy 2.0-3.0 High Dose 2.5-3.5 Performed By: #### PT #### [place] [id number] TROPONIN I Collected: 02/07/2018 Status: F Source: [facility] REPOSITORY TYPE CODE TESTS RESULT OUT OF REFERENCE UNITS RANGE LAB TROP(LOINC) 0.015-0.045 ng/ml High alert Troponin I 7.680 Performed By: #### TROP #### [place] [address] LIPID PROFILE Collected: 02/07/2018 Status: F Source: [address] [facility] REPOSITORY TYPE CODE TESTS RESULT OUT OF REFERENCE UNITS RANGE LAB CHOL(LOINC 0-199 mg/dL ) Cholesterol Blood 174 Result Comment: <200 Desirable 200-240 Borderline >240 High LAB TRIG(LOINC) 0-149 mg/dL Triglyceride Blood 63 Result Comment: < 200 Desirable Result invalid if not a fasting specimen. LAB HDL2(LOINC) >40 mg/dL HDL Cholesterol 51 LAB CHHDL(LOINC) 2.1-7.3 CHOL/HDL 3.4 LAB LDL(LOINC) mg/dL LDL (Calculated) 110 Result Comment: No CAD and with fewer than 2 CAD risk factors <160 mg/dl No CAD but with 2 or more CAD risk factors <130 mg/dl Definite CAD or other atherosclerotic disease <100 mg/dl LAB VLDL(LOINC) <50 Desired mg/dL VLDL Cholesterol 13 LAB LDHDL(LOINC) 1.1-4.8 LDL/HDL 2.2 Result Comment: LDL,VLDL,LDL/HDL, Invalid if Triglyceride >400 Performed By: #### LIPD2 #### [place] [address] MAGNESIUM BLOOD Collected: 02/07/2018 Status: F Source: [address] [facility] REPOSITORY TYPE CODE TESTS RESULT OUT OF REFERENCE UNITS RANGE LAB MAG(LOINC) 1.6-2.6 mg/dL Magnesium Blood 2.3 Performed By: #### MAG #### [place] [address] HGB A1C Collected: 02/07/2018 Status: F Source: [address] [facility] REPOSITORY TYPE CODE TESTS RESULT OUT OF RANGE REFERENCE UNITS LAB A1C5(LOINC) 4.2-6.3 % Hgb A1c 5.1 Result Comment: Method is National Glycohemoglobin Standardization Program (NGSP) compliant. LAB ESAVG(LOINC) mg/dl Est. Avg Glucose 100 Performed By: #### HA1C #### [facility] [address] [place] [id number] HISTORY PHYSICAL Observed: 02/07/2018 Status: COMPLETED Source: [place] 9:57 PM CLINIC OTHER CAMPUS REPOSITORY [facility] ID: [id number] Author: Saud Mario MD Service: Hospital Medicine Author Type: Physician Type: HANDP Filed: 02/07/2018 10:17 PM Note Text: Hospital Medicine HPI Patient Name: Jeffrey Cullen Admission Date: 02/07/2018 Reason For Admission:chest pain IMPRESSION AND PLAN: 1. Chest pain 2. NSTEMI 3. Smoker - for >30 years, 2 packs per day PLAN FOR TODAY ? Currently having active chest pain- his EKG shows non specific findings but also concerning for possible inferior UT especially with the history of hypotension after receiving SL nitro (but again he received 2 doses in 5 minutes) ? Recheck EKG and troponin ? Will consult the CVICU as his tele showed an episode of NSVT along with having chest pain ? Keep patient on heparin drip ? Cycle enzymes ? Add asa, statin - high dose ? After the nitro, if the pain is still there. ? Echo ? Cardiology consult ? Check lipid and hgba1c Saud Mario MD 9:57 PM February 07, 2018 HPI: 67 year old male patient with no known PMH other than long history of smoking ( 2packs a day for more than 30 years) I am healthy, I didn't see a doctor in years Earlier today he was sitting and suddenly started having substernal chest pain, pain is intermittent with no radiation, he felt nauseas but no vomiting and no diaphoresis This pain kept coming so he went to the ER In the ER, he was having active chest pain, was given ASA and SL nitro, pain didn't go away so he was given another dose of SL nitro, his pain resolved but he became hypotensive with SBP in the 80's. Afterward his BP corrected and he remained chest pain free so he was admitted to [facility] for NSTEMI management Currently on the floor the patient started having the same pain again. His tele showed a brief episode of NSVT No fever, chills , night sweats, no ankle edema, no abd pain, no dysuria EKG : NSR. He has non specific T wave and ST changes, in lead 3 ST elevation is less than 1 mm and only one lead PERTINENT ROS: All other systems were reviewed and negative except for HPI No Data Recorded No Data Recorded No Data Recorded Cuff No Data Recorded No past medical history on file. PAST SURGICAL HISTORY Procedure Laterality Date - ORTHOPEDICS SURGERY HX - REPAIR ING HERNIA,5+Y/O,REDUCIBL 1990 Hernia repair, inguinal,left FAMILY HISTORY Problem Relation Age of Onset - Alcohol/Drug Father - Colon Cancer Mother - Diabetes Mother Social History Marital status: Single Spouse name: Years of education: Number of children: Social History Main Topics Smoking status: Current Every Day Smoker Packs/day: 2.00 Years: 25.00 Types: Cigarettes Alcohol use: No Drug use: No Sexual activity: Yes Partners with: Female Other Topics Concern Service No Blood Transfusions No Caffeine Concern No Occupational Exposure No Hobby Hazards No Sleep Concern No Stress Concern No Weight Concern No Special Diet No Back Care No Exercise No Bike Helmet No Seat Belt No Self-Exams No ALLERGIES No Known Allergies MEDICATIONS: hydrocodone/ibuprofen(VICOPROFEN 7.5 MG-200 MG TAB) as necessary Current hospital medications: aspirin 81 mg chewable tab(s) 81 mg ORAL DAILY atorvastatin 80 mg tab(s) (LIPITOR) 80 mg ORAL AT BEDTIME heparin iv infusion (LOW DOSE ACS/NOMOGRAM) 25,000 units in NaCl 0.45% 250 mL PREMIX 0-3,000 Units/hr INTRAVENOUS CONTINUOUS heparin RATE CHANGE bolus 1,000-4,000 Units for subtherapeutic aptt results 1,000-4,000 Units INTRAVENOUS PRN heparin nomogram - NO INITIAL BOLUS OTHER ONCE (heparin bolus) nitroglycerin sublingual 0.4 mg tab(s) (NITROQUICK) 0.4 mg SUBLINGUAL PRN ipratropium-albuterol 3 mL nebulizer solution (DUONEB) 3 mL INHALATION QID 0.9% NaCl 3-5 mL 3-5 mL INTRAVENOUS q 12 H PHYSICAL EXAM: There were no vitals taken for this visit. General appearance: Well appearing, alert, in no acute distress, well-hydrated, well nourished. Skin: Skin color normal, no suspicious rashes or lesions Head: Normocephalic, no masses Eyes: Anicteric sclera. Pupils are equally round and reactive to light. Extraocular movements are intact. Ears: External ears normal Nose/Sinuses: Nares normal, no drainage or sinus tenderness Oropharynx: wet mucus membranes Neck: Supple, no adenopathy, no bruits Back: Normal exam Lungs: Lungs clear to auscultation. No wheezing, rhonchi, rales Heart: RRR without murmur, gallop, or rubs. No ectopy Abdomen: Normal abdominal exam, Abdomen soft, non-tender. Bowel sounds normal. Extremities: No deformities, edema, skin discoloration, clubbing or cyanosis. Good capillary refill. Musculoskeletal: No joint swelling, deformity, or tenderness Peripheral pulses: Normal Neuro: Sensation grossly intact. Lab data: CBC: Recent Labs 02/07/18 1525 WBC 8.9 HB 16.4 HCT 47.3 PLT 258 MCV 93.5 COAG: Recent Labs 02/07/18 1525 INR 1.10 BMP: Recent Labs 02/07/18 1525 GLUC 111* NA 136 K 4.0 CHLOR 104 CO2 25 ANION 11 BUN 13 CREAT 0.91 CHEM: Recent Labs 02/07/18 1525 ALB 3.0* TPROT 7.5 CA 8.8 HEPATIC: Recent Labs 02/07/18 1525 ALKPHOS 104 ALT 27 AST 23 TBILI 0.4 LIPASE 158 URINALYSIS:No results for input(s): PH, SPGR, UGLUC, UBILI, UKET, UHB, UPROT, UROBIL, UWBC, SSA in the last 168 hours. Invalid input(s): NITR CARDIAC: No results for input(s): CKTEST, CKMB, CKMBP, TROPT, PBNP in the last 168 hours. Imaging:reviewed Saud Mario MD 9:57 PM February 07, 2018 HISTORY PHYSICAL Observed: 02/07/2018 Status: COMPLETED Source: [place] 8:35 PM [facility] REPOSITORY HNO ID: [id number] Author: Elaine Sweeney Service: Radiology Author Type: Physician Type: HANDP Filed: 02/22/2018 1:44 PM Note Text: UPDATED HISTORY AND PHYSICAL EXAMINATION SERVICE DATE: 02/22/2018 SERVICE TIME: 1:43 PM PHYSICAL EXAM MUST BE COMPLETED ON ADMISSION The History and Physical (completed in the past 30 days) has been reviewed and the patient has been examined. The contents accurately reflect the patient's condition with the following additions or revisions since the HANDP was completed. Examination indicates no changes. This HANDP can be found in the Electronic Medical Record dated 02/20/2018. SIGNATURE: Elaine Sweeney MD PATIENT NAME: Jeffrey Cullen DATE: February 22, 2018 TIME: 1:43 PM PAGER: ED NOTE Observed: 02/07/2018 Status: COMPLETED Source: [place] 6:59 PM [facility] REPOSITORY HNO ID: [id number] Author: Roman MoodyRnKristin Wilcox RN Service: Emergency Medicine Author Type: Registered Nurse Type: ED Notes Filed: 02/07/2018 7:00 PM Note Text: [facility] called back with new ETA of 30-45 mins. ED NOTE Observed: 02/07/2018 Status: COMPLETED Source: [place] 6:53 PM [facility] [place] REPOSITORY HNO ID: [id number] Author: Monty MoodyRn) RAINA Wills Service: (none) Author Type: Registered Nurse Type: ED Notes Filed: 02/07/2018 6:56 PM Note Text: [facility] notified Aware of pt weight, need for IV pump, monitor and oxygen ETA 60-90 minutes, will attempt to find closer squad ED NOTE Observed: 02/07/2018 Status: COMPLETED Source: [place] 6:52 PM [facility] REPOSITORY [facility]NO ID: [id number] Author: Monty MoodyRn) RAINA Wills Service: (none) Author Type: Registered Nurse Type: ED Notes Filed: 02/07/2018 6:52 PM Note Text: Bed assignment 4102-1 Report [id number] ED NOTE Observed: 02/07/2018 Status: COMPLETED Source: [place] 6:36 PM [facility] REPOSITORY [facility]NO ID: [id number] Author: Shani MoodyRn) RAINA Prasad Service: Emergency Medicine Author Type: Registered Nurse Type: ED Notes Filed: 02/07/2018 6:39 PM Note Text: [facility] and [facility] EMS calling on squad phone and says the girlfriend of a patient we may have here in our ER is looking for him. EMS gives this patients name. EMS put on hold and this RN asks patient if it is ok if girlfriend knows he is here. Address verified with pt and EMS is at his home address. Pt gives permission to let girlfriend know that he is here. Pt states I actually called her and left her a message because I thought she was on her way here. Pt apologetic for the confusion and states he is not sure why girlfriend called rescue squad. Pt encouraged to call girlfriend via cell phone to update her on plan of care. ED NOTE Observed: 02/07/2018 Status: COMPLETED Source: [place] 6:26 PM [facility] REPOSITORY HNO ID: [id number] Author: Shani MoodyRn) RAINA Prasad Service: Emergency Medicine Author Type: Registered Nurse Type: ED Notes Filed: 02/07/2018 6:27 PM Note Text: ED NOTE Observed: 02/07/2018 Status: COMPLETED Source: [place] 6:05 PM [facility] REPOSITORY HNO ID: [id number] Author: Monty MoodyRn) RAINA Wills Service: (none) Author Type: Registered Nurse Type: ED Notes Filed: 02/07/2018 6:07 PM Note Text: Dr Fermin speaks with Dr Mario at [facility] Pt accepted, awaiting bed assignment ED NOTE Observed: 02/07/2018 Status: COMPLETED Source: [place] 5:58 PM [facility] REPOSITORY HNO ID: [id number] Author: Monty MoodyRn) RAINA Wills Service: (none) Author Type: Registered Nurse Type: ED Notes Filed: 02/07/2018 5:59 PM Note Text: Per Vee at transfer line, awaiting hospitalist to respond to page ED NOTE Observed: 02/07/2018 Status: COMPLETED Source: [place] 5:20 PM [facility] REPOSITORY HNO ID: [id number] Author: Monty Barrios (Rn) RAINA Wills Service: (none) Author Type: Registered Nurse Type: ED Notes Filed: 02/07/2018 5:47 PM Note Text: Transfer line given update regarding patient's pain, to consult with cardiology and call back ED PROV NOTE Observed: 02/07/2018 Status: COMPLETED Source: [place] 4:58 PM [facility] REPOSITORY HNO ID: [id number] Author: Carlos Fermin MD Service: Emergency Medicine Author Type: Physician Type: ED Provider Notes Filed: 02/07/2018 8:52 PM Note Text: ED Provider Note Patient Name: Jeffrey Cullen SERVICE DATE: 02/07/18 History Patient presents with: Chest Pain Patient is a 67 year old male presenting with chest pain. Chest Pain Pain location: Substernal area and epigastric Pain quality: aching, dull and pressure Pain radiates to: Does not radiate Pain severity: Moderate Onset quality: Sudden Duration: 20 minutes Timing: Intermittent Progression: Waxing and waning Chronicity: New Relieved by: mild relief with vomiting. Worsened by: Nothing Ineffective treatments: Antacids Associated symptoms: shortness of breath and vomiting Associated symptoms: no abdominal pain, no dizziness, no fatigue, no nausea and no palpitations Risk factors: male sex and smoking Risk factors: no coronary artery disease, no diabetes mellitus, no immobilization, no prior DVT/PE and no surgery No past medical history on file. PAST SURGICAL HISTORY Procedure Laterality Date - ORTHOPEDICS SURGERY HX - REPAIR ING HERNIA,5+Y/O,REDUCIBL 1990 Hernia repair, inguinal,left FAMILY HISTORY Problem Relation Age of Onset - Alcohol/Drug Father - Colon Cancer Mother - Diabetes Mother Social History Social History Main Topics - Smoking status: Current Every Day Smoker Packs/day: 2.00 Years: 25.00 Types: Cigarettes - Smokeless tobacco: None - Alcohol use No - Drug use: No - Sexual activity: Yes Partners: Female ALLERGIES No Known Allergies Review of Systems Constitutional: Negative for fatigue. HENT: Negative. Eyes: Negative. Respiratory: Positive for shortness of breath. Cardiovascular: Positive for chest pain. Negative for palpitations. Gastrointestinal: Positive for vomiting. Negative for abdominal pain, diarrhea and nausea. Genitourinary: Negative. Musculoskeletal: Negative. Skin: Negative. Neurological: Negative for dizziness. Psychiatric/Behavioral: Negative. Physical Exam BP 88/70 Pulse 80 Temp (Src) 97.7 (Temporal Artery) Resp 17 Ht 5' 11 (1.80m) Wt 230 lb (104.3kg) SpO2 94% BMI 32.09 kg/(m2). Physical Exam Constitutional: He appears well-developed and well-nourished. Strong smell of smoke HENT: Head: Normocephalic and atraumatic. Missing teeth Neck: Neck supple. No JVD present. Cardiovascular: Normal rate and regular rhythm. Pulmonary/Chest: He has wheezes. No resp distress, faint exp wheeze Speaking in full sentences Abdominal: He exhibits no distension. There is no tenderness. There is no rebound. Musculoskeletal: He exhibits no edema or deformity. Skin: Skin is warm and dry. Nursing note and vitals reviewed. Diagnostic Testing ED Labs Ordered and Reviewed COMPREHENSIVE METABOLIC PANEL (AK,AV,EU,FV,HL,RAIZA,MM,SP) - Abnormal; Notable for the following: Result Value Ref Range Glucose 111 (*) 70 - 99 mg/dL Albumin 3.0 (*) 3.4 - 5.0 g/dL All other components within normal limits TROPONIN I (AK) - Abnormal; Notable for the following: Troponin I 0.93 (*) <=0.07 ng/mL All other components within normal limits CBC + AUTO DIFF (AK,AV,EU,FV,HL,RAIZA,MM,SP) - Abnormal; Notable for the following: MCH 32.4 (*) 27.0 - 31.0 pg Monocyte # 1.01 (*) 0.20 - 1.00 thou/cmm All other components within normal limits LIPASE BLOOD (AK,AV,EU,FV,HL,RAIZA,MM,SP) PROTHROMBIN TIME / PT (AK,AV,EU,FV,HL,RAIZA,MM,SP) MDRD GFR Procedures Medical Decision Making / ED Course ED Course 67 year old male pt without reported PMH presents with chest pain starting 20min prior to hospital presentation. Pt declines medical history however 2pack per year smoking history since age of 19, and reports using inhaler for breathing problems. Pt was siting at Home watching TV, and had sudden onset of chest discomfort, with breath tightness. He took some pepto-bismol, got sick to his stomach and began vomiting with mild relief in his symptoms. EKG 15:24 SR rate 69, no stemi,no axis deviation, no ectopy, nonspecific st segs Pt given ASA, and pepcid at presentation as pre-hospital noted some relief with pepto-bismol and emesis. VSS. Troponin elevated at .9. Pt given 2 SL NTG with complete relief of chest pain at this time. Heparin bolus and gtt started. EKG 16:24 repeat SR rate 76, no stemi, no axis deviation, no ectopy, possilbe slight st seg depression I,AVL, V6 6:08 PM Spoke w transfer team, and accepting physician Dr. Mario, at [place] and pt is accepted for admission.. Heparin gtt is infusing, VSS, and pt reamins chest pain free. Pt is pending transfer arrangement, and repeat troponin. Pt aware of the plan for transfer. Encounter Diagnosis ICD-10-CM 1. NSTEMI (non-ST elevated myocardial infarction) (HCC) I21.4 Plan The Patient was TRANSFERRED to: [facility] Condition at time of disposition: stable SIGNATURE: Carlos Fermin MD Critical Care I spent a total of 35* minutes of critical care time in the evaluation and management of this patient. This was necessary to treat or prevent deterioration of the following condition(s): NSTEMI, which the patient had and/or has a high probability of suddenly developing. Critical care time excludes separately billed procedures. MD Carlos Ty MD 02/07/18 1812 Carlos Fermin MD 02/07/182051 ED NOTE Observed: 02/07/2018 Status: COMPLETED Source: [place] 4:39 PM [facility] RE[facility]IT[facility] HNO ID: [id number] Author: Monty MoodyRn) RAINA Wills Service: (none) Author Type: Registered Nurse Type: ED Notes Filed: 02/07/2018 4:43 PM Note Text: [facility] transfer line contacted, demographics faxed ED NOTE Observed: 02/07/2018 Status: COMPLETED Source: [place] 4:31 PM [facility] REPOSITORY HNO ID: [id number] Author: Aida MoodyRn) RAINA Castano Service: Emergency Medicine Author Type: Registered Nurse Type: ED Notes Filed: 02/07/2018 4:32 PM Note Text: Sister Trev, call with transfer info CHEST 2 VIEWS Observed: 02/07/2018 Status: F Source: [facility] 4:15 PM HEALTH SYSTEM REPOSITORY Performed at [facility] APPROVED BY: PAULETTE SPENCE MD EXAMINATION: CHEST RADIOGRAPH (2 VIEW FRONTAL & LATERAL) Clinical History: Chest pain MQ: XC2_4 Comparison: None RESULT: Lines, tubes, and devices: None. Lungs and pleura: Interstitial markings appear diffusely prominent and coarsened which may represent interstitial lung disease, interstitial edema, atypical infection, or combination there of. No airs pace consolidation, pleural effusion or pneumothorax. Cardiomediastinal silhouette: Cardiac silhouette is not enlarged. Other: Degenerative changes of both shoulders noted. IMPRESSION: 1. Interstitial markings are diffusely prominent and coarsened which could indicate interstitial lung disease, interstitial edema, atypical infection or combination thereof. HEMOGRAM/DIFF Collected: 02/07/2018 Status: F Source: [facility] 3:25 PM HEALTH SYSTEM REPOSITORY TYPE CODE TESTS RESULT OUT OF REFERENCE UNITS RANGE LAB LWBC(LOINC 4.8-10.8 thou/cmm ) WBC 8.9 LAB LRBC(LOINC 4.60-6.20 mil/cmm ) RBC 5.06 LAB LHGB(LOINC 14.0-18.0 g/dL ) Hgb 16.4 LAB LHCT(LOINC 42.0-52.0 % ) Hct 47.3 LAB LMCV(LOINC 80.0-94.0 fl ) MCV 93.5 LAB LMCH(LOINC 27.0-31.0 pg ) MCH High 32.4 LAB LMCHC(LOIN 32.0-36.0 % C) MCHC 34.7 LAB LRDW(LOINC 11.5-15.9 % ) RDW 13.3 LAB LPLT(LOINC 150-400 thou/cmm ) Platelet 258 LAB LMPV(LOINC 7.1-10.5 fl ) MPV 9.6 LAB LSEGT(LOIN % C) Seg Neutrophil 45.8 LAB LLYMP(LOIN % C) Lymphocyte 37.7 LAB LMNO(LOINC % ) Monocyte 11.3 LAB RADHA(LOINC % ) Eosinophil 4.5 LAB LBASO(LOIN % C) Basophil 0.7 LAB LSEGN(LOIN 3.00-5.67 thou/cmm C) Abs. Neut 4.07 Result Comment: CORRECTED: Previous result = 4.10, verified at 15:54 on 02/07/18. LAB LLYMN(LOINC) 1.50-3.65 thou/cmm Abs. Lymph 3.36 LAB LMONN(LOINC) 0.20-1.00 thou/cmm High Abs. Slope 1.01 LAB LEOSN(LOINC) 0.00-0.41 thou/cmm Abs. Eosin 0.40 LAB LBASN(LOINC) 0.00-0.08 thou/cmm Abs. Baso 0.06 Performed By: #### LCBCD #### [facility] [address] [place], [place] [address] PROTIME Collected: 02/07/2018 Status: F Source: [facility] 3: PM [facility] SYSTEM REPOSITORY TYPE CODE TESTS RESULT OUT OF REFERENCE UNITS RANGE LAB LPTI(LOINC 9.7-13.0 sec ) Prothrombin Time 11.4 Result Comment: Note new reference range. LAB LINR(LOINC) INR 1.10 Result Comment: Standard Therapy 2.0-3.0 High Dose 2.5-3.5 Performed By: #### LPT #### [facility] [address] [place], [place] [address] COMPREHENSIVE PANEL Collected: 02/07/2018 Status: F Source: [facility] 3:25 PM [facility] SYSTEM REPOSITORY TYPE CODE TESTS RESULT OUT OF REFERENCE UNITS RANGE LAB SHR[employer]ER(LOINC) 136-145 mEq/L Sodium Blood 136 LAB LK(LOINC) 3.5-5.1 mEq/L Potassium Blood 4.0 LAB LCL(LOINC) 98-107 mEq/L Chloride Blood 104 LAB LCO2(LOINC 21-32 mEq/L ) CO2 Blood 25 LAB LGLU(LOINC 70-99 mg/dL ) Glucose High Blood 111 LAB LBUN(LOINC 7-25 mg/dL ) BUN Blood 13 LAB LCREA(LOIN 0.67-1.17 mg/dL C) Creatinine Blood 0.91 LAB LCA(LOINC) 8.5-10.1 mg/dL Calcium Blood 8.8 LAB LALB(LOINC 3.4-5.0 g/dL ) Low Albumin Blood 3.0 LAB LTP(LOINC) 6.4-8.2 g/dL Total Protein 7.5 LAB LAST(LOINC 15-37 U/L ) AST-SGOT Blood 23 LAB LALT(LOINC 12-78 U/L ) ALT-SGPT Blood 27 LAB LALKP(LOIN 46-116 U/L C) Alk Phosphatase 104 LAB LBILT(LOIN 0.2-1.0 mg/dL C) Total Bilirubin 0.4 LAB LANGP(LOIN 8-20 C) Anion Gap 11 LAB LBNCR(LOIN 10-20 C) BUN/Creatinine 14 Ratio Performed By: #### LP14 #### [place] [address] LIPASE BLOOD Collected: 02/07/2018 Status: F Source: [facility] 3: PM HEALTH SYSTEM REPOSITORY TYPE CODE TESTS RESULT OUT OF REFERENCE UNITS RANGE LAB LLIP(LOINC) 73-393 U/L Lipase Blood 158 Performed By: #### LLIP #### [place] [address] MDRD EGFR Collected: 02/07/2018 Status: F Source: [facility] 3:25 PM HEALTH SYSTEM REPOSITORY TYPE CODE TESTS RESULT OUT OF RANGE REFERENCE UNITS LAB LGFRF(LOINC >60mL/min/1.73m ) 2 eGFR >60 Result Comment: If the patient is , multiply the result by 1.210. Performed By: #### LGFR #### [place] [address] TROPONIN I Collected: 02/07/2018 Status: F Source: [facility] 3:25 PM HEALTH SYSTEM REPOSITORY TYPE CODE TESTS RESULT OUT OF REFERENCE UNITS RANGE LAB LTRP(LOINC) <=0.07 ng/mL High Troponin I 0.93 Performed By: #### LTRP #### [place] [address] ED NOTE Observed: 02/07/2018 Status: COMPLETED Source: [place] 3:19 PM [facility] REPOSITORY HNO ID: [id number] Author: Monty Johnson) Johann, RN Service: (none) Author Type: Registered Nurse Type: ED Notes Filed: 02/07/2018 3:20 PM Note Text: Pt reports sudden onset of midsternal CP 20 min [employer] PERSONAL[employer] States took pepto bismol then vomited Arrives via private car, WC to ED bed 3 Placed on lunchroom monitor, respiratory therapy at bedside for EKG HOSP Observed: 02/07/2018 Status: COMPLETED Source: [place] 12:00 AM CLINIC OTHER CAMPUS REPOSITORY Patient:Jeffrey Cullen MRN: <[id number]> Height:5' 10.984(1.803 m) Weight:241 lb 6.5 oz (109.5 kg) Outpatient Medications as of 02/22/18: hydrocodone/ibuprofen(VICOPROFEN 7.5 MG-200 MG TAB) Admission/Clinic Administered Medications as of 02/22/18: metoprolol tartrate (short acting) 100 mg tab(s) (LOPRESSOR) dexmedetomidine 400 mcg in NaCl 0.9% 100 mL (PRECEDEX) diltiazem 30 mg tab(s) (CARDIZEM) 0.9% NaCl 20 mL 0.9% NaCl 10 mL 0.9% NaCl 20 mL aspirin 162 mg chewable tab(s) enoxaparin 105 mg injection (LOVENOX) fentaNYL iv infusion 20 mcg/mL in NaCl 0.9% 100 mL nystatin 5 mL oral liquid (MYCOSTATIN) metoclopramide HCl 10 mg injection (REGLAN) LORazepam 2 mg injection (ATIVAN) dextrose 40 % 15 g glucagon 1 mg injection (GLUCAGEN) dextrose 50% in water 25 mL syringe insulin regular human injection (short acting) (NovoLIN R,HumuLIN R) bisacodyl 10 mg suppository (DULCOLAX) polyethylene glycol 3350 17 g packet (MIRALAX, GLYCOLAX) senna-docusate 8.6-50 mg 1 tablet (SENNA-S) pill splitter (patient-specific) Chlorhexidine Gluconate 0.12 % 15 mL (PERIDEX) budesonide 0.5 mg/2 mL 1 mg (PULMICORT) acetaminophen 650 mg tab(s) (TYLENOL) dextrose 50% in water 25 mL syringe potassium chloride iv piggyback 20 mEq in sterile water 100 mL magnesium sulfate in water 2 g in sterile water 50 ml albuterol 2.5 mg /3 mL (0.083 %) 2.5 mg (PROVENTIL) calcium chloride 1 g in D5W 100 mL oxyCODONE-acetaminophen 5-325 mg 1-2 tablet (PERCOCET) morphine 2-4 mg injection pantoprazole 40 mg injection (PROTONIX) ondansetron (PF) 4 mg injection (ZOFRAN) propofol infusion (DIPRIVAN) ipratropium-albuterol 3 mL nebulizer solution (DUONEB) atorvastatin 40 mg tab(s) (LIPITOR) Problem List: Inguinal hernia without mention of obstruction or gangrene, unilateral or unspecified, (not specified as recurrent) [K40.90] NSTEMI (non-ST elevated myocardial infarction) ([facility]) [I21.4] NSVT (nonsustained ventricular tachycardia) ([facility]) [I47.2] Nicotine use disorder, F17.2 [F17.200] Malnutrition of moderate degree ([facility]) [E44.0] Allergies: No Known Allergies Date Verified:02/22/18 Lab Values Lab Value Units Date High Low POTA* 3.7 mEq/L 02/22/2018 5.1 3.5 LUKASZ* 33.7 % 02/22/2018 51.0 40.1 Progress Notes (): Saud Mario MD, MD 02/07/2018 10:17 PM Signed Hospital Medicine HPI Patient Name: Jeffrey Cullen Admission Date: 02/07/2018 Reason For Admission:chest pain IMPRESSION AND PLAN: 1. Chest pain 2. NSTEMI 3. Smoker - for >30 years, 2 packs per day PLAN FOR TODAY ? Currently having active chest pain- his EKG shows non specific findings but also concerning for possible inferior UT especially with the history of hypotension after receiving SL nitro (but again he received 2 doses in 5 minutes) ? Recheck EKG and troponin ? Will consult the CVICU as his tele showed an episode of NSVT along with having chest pain ? Keep patient on heparin drip ? Cycle enzymes ? Add asa, statin - high dose ? After the nitro, if the pain is still there. ? Echo ? Cardiology consult ? Check lipid and hgba1c Saud Mario MD 9:57 PM February 07, 2018 HPI: 67 year old male patient with no known PMH other than long history of smoking ( 2packs a day for more than 30 years) I am healthy, I didn't see a doctor in years Earlier today he was sitting and suddenly started having substernal chest pain, pain is intermittent with no radiation, he felt nauseas but no vomiting and no diaphoresis This pain kept coming so he went to the ER In the ER, he was having active chest pain, was given ASA and SL nitro, pain didn't go away so he was given another dose of SL nitro, his pain resolved but he became hypotensive with SBP in the 80's. Afterward his BP corrected and he remained chest pain free so he was admitted to [facility] for NSTEMI management Currently on the floor the patient started having the same pain again. His tele showed a brief episode of NSVT No fever, chills , night sweats, no ankle edema, no abd pain, no dysuria EKG : NSR. He has non specific T wave and ST changes, in lead 3 ST elevation is less than 1 mm and only one lead PERTINENT ROS: All other systems were reviewed and negative except for HPI No Data Recorded No Data Recorded No Data Recorded Cuff No Data Recorded No past medical history on file. PAST SURGICAL HISTORY Procedure Laterality Date - ORTHOPEDICS SURGERY HX - REPAIR ING HERNIA,5+Y/O,REDUCIBL 1990 Hernia repair, inguinal,left FAMILY HISTORY Problem Relation Age of Onset - Alcohol/Drug Father - Colon Cancer Mother - Diabetes Mother Social History Marital status: Single Spouse name: Years of education: Number of children: Social History Main Topics Smoking status: Current Every Day Smoker Packs/day: 2.00 Years: 25.00 Types: Cigarettes Alcohol use: No Drug use: No Sexual activity: Yes Partners with: Female Other Topics Concern Service No Blood Transfusions No Caffeine Concern No Occupational Exposure No Hobby Hazards No Sleep Concern No Stress Concern No Weight Concern No Special Diet No Back Care No Exercise No Bike Helmet No Seat Belt No Self-Exams No ALLERGIES No Known Allergies MEDICATIONS: hydrocodone/ibuprofen(VICOPROFEN 7.5 MG-200 MG TAB) as necessary Current hospital medications: aspirin 81 mg chewable tab(s) 81 mg ORAL DAILY atorvastatin 80 mg tab(s) (LIPITOR) 80 mg ORAL AT BEDTIME heparin iv infusion (LOW DOSE ACS/NOMOGRAM) 25,000 units in NaCl 0.45% 250 mL PREMIX 0-3,000 Units/hr INTRAVENOUS CONTINUOUS heparin RATE CHANGE bolus 1,000-4,000 Units for subtherapeutic aptt results 1,000-4,000 Units INTRAVENOUS PRN heparin nomogram - NO INITIAL BOLUS OTHER ONCE (heparin bolus) nitroglycerin sublingual 0.4 mg tab(s) (NITROQUICK) 0.4 mg SUBLINGUAL PRN ipratropium-albuterol 3 mL nebulizer solution (DUONEB) 3 mL INHALATION QID 0.9% NaCl 3-5 mL 3-5 mL INTRAVENOUS q 12 H PHYSICAL EXAM: There were no vitals taken for this visit. General appearance: Well appearing, alert, in no acute distress, well-hydrated, well nourished. Skin: Skin color normal, no suspicious rashes or lesions Head: Normocephalic, no masses Eyes: Anicteric sclera. Pupils are equally round and reactive to light. Extraocular movements are intact. Ears: External ears normal Nose/Sinuses: Nares normal, no drainage or sinus tenderness Oropharynx: wet mucus membranes Neck: Supple, no adenopathy, no bruits Back: Normal exam Lungs: Lungs clear to auscultation. No wheezing, rhonchi, rales Heart: RRR without murmur, gallop, or rubs. No ectopy Abdomen: Normal abdominal exam, Abdomen soft, non-tender. Bowel sounds normal. Extremities: No deformities, edema, skin discoloration, clubbing or cyanosis. Good capillary refill. Musculoskeletal: No joint swelling, deformity, or tenderness Peripheral pulses: Normal Neuro: Sensation grossly intact. Lab data: CBC: Recent Labs 02/07/18 1525 WBC 8.9 HB 16.4 HCT 47.3 PLT 258 MCV 93.5 COAG: Recent Labs 02/07/18 1525 INR 1.10 BMP: Recent Labs 02/07/18 1525 GLUC 111* NA 136 K 4.0 CHLOR 104 CO2 25 ANION 11 BUN 13 CREAT 0.91 CHEM: Recent Labs 02/07/18 1525 ALB 3.0* TPROT 7.5 CA 8.8 HEPATIC: Recent Labs 02/07/18 1525 ALKPHOS 104 ALT 27 AST 23 TBILI 0.4 LIPASE 158 URINALYSIS:No results for input(s): PH, SPGR, UGLUC, UBILI, UKET, UHB, UPROT, UROBIL, UWBC, SSA in the last 168 hours. Invalid input(s): NITR CARDIAC: No results for input(s): CKTEST, CKMB, CKMBP, TROPT, PBNP in the last 168 hours. Imaging:reviewed Saud Mario MD 9:57 PM February 07, 2018 Juan Cabral MD 02/08/2018 6:47 AM Signed SERVICE DATE: 02/07/2018 SERVICE TIME: 10:54 PM CC: Chest pain HPI: This is a 67 year old male with a significant smoking history of 2 PPD for about 45 years who comes in with complaints of chest pain. He states that his chest pain started while he was sitting on his couch and it progressively worsened as he sat on the couch. He also admitted to having difficulty with breathing along with some lightheadedness. His chest pain persisted upto his presentation to the ED where he received 2 NTG which did not relieve his pain. He received another 2 NTG which relieved his pain but also dropped his blood pressures to the 80s systolic. His blood pressures recovered spontaneously. Even when the chest pain is relieved he does admit to having shortness of breath at rest. 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 He states that he does get short of breath every time he goes hunting but it is relieved by rest and albuterol. He does admit to seeing his PCP but is vague about it. He claims he is in good health and denies any history of HTN, HLP or history of premature CAD in his family. Patient was found to have a run of NSVT which last 21 beats. Jeffrey Cullen has a pertinent PMH for: Past Medical History: No past medical history on file. Past Surgical History: PAST SURGICAL HISTORY Procedure Laterality Date - ORTHOPEDICS SURGERY HX - REPAIR ING HERNIA,5+Y/O,REDUCIBL 1990 Hernia repair, inguinal,left Family History: FAMILY HISTORY Problem Relation Age of Onset - Alcohol/Drug Father - Colon Cancer Mother - Diabetes Mother Social History: Social History Substance Use Topics - Smoking status: Current Every Day Smoker Packs/day: 2.00 Years: 25.00 Types: Cigarettes - Smokeless tobacco: Not on file - Alcohol use No Medications: Prior to Admission Medications: hydrocodone/ibuprofen(VICOPROFEN 7.5 MG-200 MG TAB) as necessary Current hospital medications: aspirin 81 mg chewable tab(s) 81 mg ORAL DAILY atorvastatin 80 mg tab(s) (LIPITOR) 80 mg ORAL AT BEDTIME heparin iv infusion (LOW DOSE ACS/NOMOGRAM) 25,000 units in NaCl 0.45% 250 mL PREMIX 0-3,000 Units/hr INTRAVENOUS CONTINUOUS heparin RATE CHANGE bolus 1,000-4,000 Units for subtherapeutic aptt results 1,000-4,000 Units INTRAVENOUS PRN heparin nomogram - NO INITIAL BOLUS OTHER ONCE (heparin bolus) nitroglycerin sublingual 0.4 mg tab(s) (NITROQUICK) 0.4 mg SUBLINGUAL PRN ipratropium-albuterol 3 mL nebulizer solution (DUONEB) 3 mL INHALATION QID 0.9% NaCl 3-5 mL 3-5 mL INTRAVENOUS q 12 H perflutren lipid microspheres 1.1 mg/mL 1.3 mL injection (DEFINITY) 1.3 mL INTRAVENOUS PRN(NO DISPENSE) Allergies: ALLERGIES No Known Allergies Review of Systems: General: Denies fevers, chills, malaise, or weight changes Respiratory: Admits to dyspnea on exertion. No cough or wheezing. Cardiovascular: Chest pain +, SOB +. No lightheadedness, orthopnea, PND GI: Denies abdominal pain, nausea, vomiting, diarrhea or constipation Endocrine: Polyuria and polydypsia present. No heat or cold intolerance Hematology: Denies any history of bleeding or clotting disorders Musculoskeletal: Denies any back pain or muscle aches Neuro: Denies any weakness or sensory deficits. No tingling numbness Psychiatry: Denies any history of anxiety or depression Physical Exam: Patient Vitals for the past 24 hrs: BP Temp Temp src Pulse Resp SpO2 02/07/18 2231 118/78 - - - - - 02/07/18 2208 147/95 36.8 ?C (98.2 ?F) Oral 91 20 94 % General Appearance: Alert and oriented x 3 HEENT: pupils equal normal lids Respiratory: clear to auscultation bilaterally, no wheezes, ronchi or crackles Prolonged expir; no access m use Cardiovascular: regular rate and rhythm, no murmurs, rubs or gallops no RV lift Gastrointestinal: soft, non tender, non distended. Bowel sounds present in all quadrants. No hepatosplenomegaly Extremities: No edema, cyanosis or rash. 2+ distal pulses bilaterally in dorsalis pedis. 2+ bilat radial pulses Neuro: nl mentation. No motor or sensory deficits. Reflexes 2+ in all extremities. Skin-no bruising normal warmth Pleasant affect nl speech Laboratory and diagnostic imaging: CBC Recent Labs 02/07/18 1525 WBC 8.9 RBC 5.06 HB 16.4 HCT 47.3 MCV 93.5 MCH 32.4* MCHC 34.7 PLT 258 MPV 9.6 CMP Recent Labs 02/07/18 1525 NA 136 K 4.0 CHLOR 104 CO2 25 GLUC 111* BUN 13 CREAT 0.91 ALB 3.0* CA 8.8 ALKPHOS 104 TBILI 0.4 AST 23 ALT 27 TPROT 7.5 PTSEC 11.4 INR 1.10 EKG NSR nsst elev infer and nsst depress precordial leads Cardiac evaluation Recent Labs 02/07/18 1525 TROPI 0.93* Risk Stratification No results found for this basename: HBA1C,TSH,PROBNP,TG,HDL,LDL,CHOL Weights Last 12 Encounter Wt Readings: Date: Wt: 02/07/2018 104.3 kg (230 lb) 12/04/2007 100.2 kg (221 lb) EKG: Normal Sinus Rhythm with non specific T wave abnormality. Lead 3: <1mm ZULEYMA with Twave inversion Imaging CXR: Interstitial markings are diffusely prominent and coarsened which could indicate interstitial lung disease, interstitial edema, atypical infection or combination thereof Prior Cardiac work up Echo: None LHC: None Stress Test: None Assessment and Plan 1) NSTEMI: Likely type 1 in light of his typical chest pain - Has been started on a heparin drip, NTG drip - Trend troponins every 6 hours - Has been started on aspirin and statin - Will also start metoprolol to better control his heart rate - If chest pain does not improve, will start Nitroglycerin drip. Monitor blood pressure after NTG. - Will need a LHC to evaluate his coronaries - Echo in the morning - Risk stratification labs - A1c and lipid panel were already ordered. Chest pain free but rising trop, runs NSVT; proceed with urgent cath Reviewed risk/benefit /altern with pt who understands and agrees to proceed; consent obtained; R radial approach 2) NSVT: Likele 2/2 underlying ischemia - Keep K>4 and Mg > 2; IV amio if persists 3) Tobacco abuse - Significant smoking history 2 PPD for the past 45 years - Counseled to which patient says Every one has to 4.Lipids-on statin now 4) DVT ppx - Already on the heparin drip Patient Checklist Code Status: Full Code Discussed with attending, Dr. Cabral who is in agreement with the assessment and plan Attending Note I evaluated the patient and personally participated in the hernandez components. I agree with the resident's findings and plan as documented and have discussed the case and management of the patient's care with the resident. Cc time 30 minutes Signature: Juan Cabral MD Pager [phone]: 02/08/2018 Time: 6:42 AM M. Walt Rivera MD Internal Medicine, PGYIII Pager: [phone] February 07, 2018 10:54 PM Previous Version Gio Singer, RN, RN 02/08/2018 1:15 AM Addendum Nursing Progress Note Patient Name: Jeffrey Cullen Patient Location: [place] [address] [address]* Daily Note: 02/07/20182029: Report called from [facility] by 'Aida.' 2114: Patient arrived to 4100. 2129: Patient arrived with 22g in right hand that needed removal. 2199: Dr. Mario (Dr. Villavicencio) notified in person about patient's run of V-tach. Dr. Villavicencio ordered STAT Troponin collection, EKG, Nitroglycerin administration for patient who stated 6 out of [address] Villavicencio verbalized to keep the patient at 1000units/hr with the Heparin drip they arrived with. 2215: Patient stated chest pain relief. 2350: Lab, 'Nicole,' called with a critical value for Troponin of 7.680. Sound paged. 2355: Sound returned call and notified about the critical value. Told to notify CVICU. 02/08/2018 0000: CVICU came to the unit; I notified them of the critical troponin value. 0030: Report given to Mindy ALFARO in NSICU. 0045: Patient transferred 0115: Notified NSICU that RI's medications are not up here. This note was completed by: iGo Singer RN Previous Version Beata Marin MD 02/10/2018 5:51 PM Signed [facility] - Consultation PATIENT NAME: JEFFREY CULLEN CSN: [id number] DATE OF : 1950 SEX/AGE: M/67 PATIENT TYPE: I HOSP SVC: ICU LOCATION: [id number] 02/08/2018 REASON FOR CONSULTATION: Consideration for coronary artery bypass grafting surgery during the current admission. REQUESTING PHYSICIAN: Dr. Brice. MEDICAL PAYMENT POSTER: Dr. Marin. HISTORY OF PRESENT ILLNESS: This patient is a 67-year-old male with his apparent first hospital admission for symptomatic coronary artery disease. The patient had sudden onset of substernal chest pain on the day of admission, and he went to the emergency room as it continued to persist. He was given aspirin, sublingual nitro, and the pain persisted. He apparently did develop some hypotension with a blood pressure in the 80s. He then corrected his blood pressure and remained chest pain free. His troponin enzymes are positive reaching as high as 31.2 this morning at 0557. The patient underwent cardiac catheterization today, which shows significant stenosis in the right coronary artery, circumflex system, and LAD systems. The patient was felt to be better served by bypass grafting surgery rather than stent treatment. The ejection fraction of about 30 to 35, though on the post PVC beat, the ejection fraction may have been a little higher. The patient's echo is still pending. His risk factors include his age and a greater than 2 pack per day cigarette smoking history for at least 40 years. FAMILY HISTORY: The patient does not mention a close blood relative having bypass grafting surgery or heart attacks at a young age. MEDICATIONS: The patient's home medications were very little. Now, he is on appropriate cardiac medications. PAST MEDICAL HISTORY: The patient basically has not seen doctors for many, many years and feels that he is healthy. Denies previous diagnosis or treatment for hypertension, liver disease, kidney disease, previous myocardial infarction, congestive heart failure, or stroke. PAST SURGICAL HISTORY: Notable for a right knee replacement, bilateral inguinal hernia repairs, ORIF of the left ankle with metal still in place. He has had bilateral cataract surgeries with lens implants and has a good result. He also has a good result with his right knee. 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 Therefore, he walks a lot. He has the above-noted 80 pack-year cigarette smoking history. Alcohol intake is denied. FAMILY HISTORY: There is a history of colon cancer and diabetes in the patient's mother. Alcohol use in the father. Denies either of them with bypass grafting surgery. OTHER REVIEW OF SYSTEMS: Prior to admission is mostly remarkable for those in the history of present illness. No major recent change in the bowel habits. No blood in the stools. No blood in the urine. Denies any previous history of TIA or strokes. No known cancer previously. No known immune problems previously. RESPIRATORY: Chronic tobacco use. PHYSICAL EXAMINATION: GENERAL: Reveals a well-developed, well-nourished male, supine with oxygen in place. Looks somewhat unhappy at all of the news. HEENT: Shows PERRL and EOMI. External canals and external nares are grossly clear. Tongue protrudes in midline. NECK: Examination of the neck revealed palpable carotid pulses. CARDIAC: Reveals regular rhythm without obvious murmur or rub. LUNGS: Clear anteriorly. UPPER EXTREMITY EXAM: Shows radial pulses to be 2+/4+ bilaterally. ABDOMEN: Soft, protuberant. Bowel sounds present. LOWER EXTREMITIES: Shows the patient to have palpable dorsalis pedis and posterior tibial pulses bilaterally. No edema. He appears to have adequate saphenous vein. There is no history of vein stripping. LABORATORY EVALUATION: Troponin enzymes as noted above. His white blood count 11.59, hemoglobin 14.5, hematocrit 42.8, platelet count 222. BUN and creatinine 11 and 0.85. PT/INR normal. INR of 1.05. MRSA screening is pending. Echo is pending. PFTs are pending. Further blood work is pending. IMPRESSION: 1. Significant 3-vessel coronary artery disease with a sizable non-ST elevation myocardial infarction with impaired ventricular function. 2. No medical care for years. 3. Chronic significant tobacco use. 4. Extensive previous surgical history as noted above. PLANS AND RECOMMENDATION: The patient was seen in consultation for consideration for coronary artery bypass grafting surgery. I have discussed the benefits, risks, indications, and alternatives to coronary bypass grafting surgery with the patient and some family members present at the bedside. Major risks discussed include, but are not limited to infection, bleeding, myocardial infarction, stroke, , pneumonia, wound complication, wound infection, blood transfusion with associated risks of AIDS and hepatitis transmission, occasional need for reoperation for bleeding or other complications and the fact that this is reparative surgery and is not a cure for the disease. The expected operative time, intensive care unit time, hospitalization time, and recovery time at home were all discussed in some detail. The patient states he has no further questions at this time and would like to proceed with surgery tomorrow, if possible, pending completion of his preoperative workup and evaluation including carotid ultrasounds per Cardiology, echo pending, and PFTs pending. Beata Marin MD Cardiothoracic Surgery PS:carlyn /[id number] Previous Version Choco Rivera MD 02/08/2018 12:32 AM Signed Was paged by RN about critical troponin of 7.6 which increased from 0.9. Evaluated patient who claims that his chest pain is back again and is of greater severity. He rated it an 8/10. After taking another SL Nitroglycerin, he stated that pain is decreasing in intensity but it still persists. His blood pressures remained stable during the process. Patient will be moved to the CVICU and will be started on a Nitroglycerin drip. Explained to the patient the need to move to a critical care unit. D/W Dr. Cabral who agrees with the above. Choco Rivera MD 02/08/18 12:32 AM Internal Medicine Pager: [phone] Juan Cabral MD 02/08/2018 8:05 AM Signed Result Noted. Patient is currently hospitalized and managed by the in-patient team. MD Juan Martinez MD 02/08/2018 10:24 AM Signed Result Noted. Patient is currently hospitalized and managed by the in-patient team. MD Misti Martinez PA 02/08/2018 4:41 PM Addendum CARDIOTHORACIC SURGERY CONSULT / HANDP SERVICE DATE: 02/08/2018 SERVICE TIME: 2:54 PM Subjective PRIMARY SERVICE: Cardiothoracic Surgery CHIEF COMPLAINT: Chest pain HPI: This is a 67 year old male with h/o smoking (2ppd x 30 yr) who presented to [facility] ED 02/07 with sharp chest pain rated 10+/10 with associated diaphoresis, SOB, and dizziness. Patient states the onset of chest pain occurred while he was sitting on the couch. He attributed it to heart burn, so he took pepto bismol and vomited shortly after. He then called his friend to take him to the ED where they found an elevated troponin and non-specific EKG changes (possible slight ST depressions in I, AVL, V6). They started Heparin and arranged for transfer to [facility] on 02/07. Cardiac Cath was performed in the am to reveal severe 3 vessel disease and mild inferior wall hypokinesis. Patient denies current CP, SOB, or abdominal pain. Patient is Able to Perform the Following Physical Activity: Take care of self; that is eating, dressing, bathing, using the toilet (2.75 METs) Patient has the following medical comorbidities which might affect the perioperative course: - No known medical conditions No past medical history on file. PAST SURGICAL HISTORY Procedure Laterality Date - ORTHOPEDICS SURGERY HX - REPAIR ING HERNIA,5+Y/O,REDUCIBL 1990 Hernia repair, inguinal,left FAMILY HISTORY Problem Relation Age of Onset - Alcohol/Drug Father - Colon Cancer Mother - Diabetes Mother Social History Substance Use Topics - Smoking status: Current Every Day Smoker Packs/day: 2.00 Years: 25.00 Types: Cigarettes - Smokeless tobacco: Not on file - Alcohol use No Prescriptions Prior to Admission: hydrocodone/ibuprofen(VICOPROFEN 7.5 MG-200 MG TAB) as necessary Disp: Rfl: 0 hydrocodone/ibuprofen(VICOPROFEN 7.5 MG-200 MG TAB) as necessary ALLERGIES No Known Allergies REVIEW OF SYSTEMS: PAIN ASSESSMENT: Negative for pain, history of chronic pain, or current treatment for a chronic pain condition. GENERAL: No weight loss, malaise or fevers HEENT: Negative for frequent or significant headaches, No changes in hearing or vision, no nose bleeds or other nasal problems NECK: Negative for lumps, goiter, pain and significant neck swelling RESPIRATORY: Negative for cough, wheezing or shortness of breath. CARDIOVASCULAR: Negative for leg swelling palpitations claudication orthopnea paroxysmal nocturnal dyspnea, Positive for chest pain 09/06 GI: Negative for abdominal discomfort, blood in stools or black stools or change in bowel habits : No history of dysuria, frequency or incontinence SKIN: Negative for lesions, rash, and itching. Objective PHYSICAL EXAM: BP 105/63 Pulse 76 Temp 36.4 ?C (97.5 ?F) (Temporal Artery) Resp 20 Ht 180.3 cm (5' 10.98) Wt 104.3 kg (229 lb 15 oz) SpO2 95% BMI 32.08 kg/m2 Body surface area is 2.29 meters squared. STS RISK CALCULATOR: STS Calculator General Appearance: Well developed and well nourished appearance. No acute distress. Skin: No rash on chest, arms or legs. Warm, dry. Lungs: Normal respiratory effort. Clear lungs without rhonchi, rales, wheezing. Heart: regular rhythm and S1, S2 normal Abdomen: soft, non-tender and bowel sounds present Neurologic/Psychiatric: Oriented to person, place, time. Normal affect. No gross focal neurologic deficits. Extremities: no edema Lines, Drains, and Airways Line Peripheral 02/07/18 1600 Admission to Hospital Short Right Antecubital less than 1 day Peripheral 02/08/18 0100 Short Right Arm 20 Gauge less than 1 day Peripheral 02/08/18 0700 Short Left Forearm less than 1 day @LDAASSESS(2::::8:)@ DATA: Diagnostic tests reviewed for today's visit: Cardiac Catheterization: -Severe three vessel coronary artery disease. -50% stenosis in the proximal to mid left anterior descending artery. -70% stenosis in the mid left anterior descending artery. -70% stenosis in the proximal left circumflex artery. -70% stenosis in the proximal left circumflex artery. -90% stenosis in the proximal right coronary artery. -90% occlusive thrombus in the proximal right coronary artery. -70% stenosis in the mid right coronary artery. -The left ventricular ejection fraction was 45%. -Mild hypokinesis of the inferior wall of the left ventricle. Chest X-RAY: Interstitial markings are diffusely prominent and coarsened which could indicate interstitial lung disease, interstitial edema, atypical infection or combination thereof. ECHO: Left Ventricle -Mildly dilated left ventricle. LVIDd is 5.9 cm. Mild left ventricular hypertrophy. -Mild left ventricular systolic dysfunction. LVEF is visually estimated in the 45-50% range. -The LVEF is 48 % by modified Sullivan's Biplane method. -The Global Longitudinal Strain = -12.7%. -Left ventricular dysfunction appears to be generalized, without regional wall motion abnormalities. -Stage I diastolic dysfunction: Abnormal relaxation with normal filling pressures. Right Ventricle -Normal right ventricular size and systolic function. Left Atrium -The left atrium appears normal in size. ROEL is 27.18 ml/m2. Right Atrium -The right atrium appears normal in size. -The right atrium measures 15 cm2 by planimetry in the apical 4-chamber view. Mitral Valve -Structurally normal mitral valve with trivial mitral regurgitation. Aortic Valve -The aortic valve is structurally normal and trileaflet, without evidence of stenosis or regurgitation. Tricuspid Valve -Structurally normal tricuspid valve with trivial tricuspid regurgitation. -RVSP could not be reliably estimated due to limited Doppler signal across the tricuspid valve. Pulmonic Valve -The pulmonic valve is not well visualized. No Doppler evidence of stenosis or insufficiency. Pulmonary Artery -The pulmonary artery is not well visualized. Ascending Aorta -The aorta measures 3.6 cm at the level of the sinuses of Valsalva and 3.6 cm at the mid ascending level. Pericardium -No evidence of pericardial effusion. Cardiac Shunt -There is no evidence of interatrial shunting by color Doppler. Vena Cava -The inferior vena cava is dilated and collapses (>50%) with inspiration. -Right atrial pressure is estimated at 8 mmHg. Recent Labs 02/08/18 0700 02/08/18 0500 02/08/18 0105 02/07/18 2243 02/07/18 1525 HBA1C -- -- -- 5.1 -- RBC -- 4.50* 4.70 -- 5.06 WBC -- 11.59* 10.39* -- 8.9 HB -- 14.5 15.1 -- 16.4 HCT -- 42.8 43.4 -- 47.3 PLT -- 222 202 -- 258 INR -- -- 1.05 1.10 1.10 APTT 28.5 -- 28.3 -- -- NA -- 137 -- -- 136 K -- 4.2 -- -- 4.0 CHLOR -- 107 -- -- 104 CO2 -- 24 -- -- 25 BUN -- 11 -- -- 13 CREAT -- 0.85 -- -- 0.91 GLUC -- 109* -- -- 111* CA -- 8.5 -- -- 8.8 MG -- -- -- 2.3 -- P -- 2.9 -- -- -- TPROT -- -- -- -- 7.5 TBILI -- -- -- -- 0.4 ALKPHOS -- -- -- -- 104 ALT -- -- -- -- 27 AST -- -- -- -- 23 ANION -- 10 -- -- 11 Assessment/Plan NSTEMI -continue heparin drip -continue ASA, Statin, BB -nitro drip if CP continues -Scheduled for CABG with Dr. Marin on 02/09/18 Tobacco use -Cessation Education Tests/Labs Ordered: 1. None These findings will be communicated back to the requesting provider electronically. SIGNATURE: Misti Stein PA-C PATIENT NAME: Jeffrey Cullen DATE: February 08, 2018 TIME: 2:54 PM PAGER/CONTACT #:[id number] ETX [id number] Previous Version Vega Mosquera APRN.KARINE 02/12/2018 11:02 AM Signed [facility] Surgery Pre-Op Open Heart Check List Patient Info: Jeffrey Cullen 1950 67 year old Review of patient's allergies indicates no known allergies. Last set of vitals: Wt: 104.3 kg (230 lb) BMI: 32.08 kg/(m2) BP 105/63 Pulse 76 Temp 36.4 ?C (97.5 ?F) (Temporal Artery) Resp 20 Ht 180.3 cm (5' 10.98) Wt 104.3 kg (229 lb 15 oz) SpO2 95% BMI 32.08 kg/m2 Wt: 104.3 kg (230 lb) BMI: 32.08 kg/(m2) Procedure: CABG Diagnosis: NSTEMI Date of Procedure: 02/09/2018 STS Risk Score: 0.707% CARE TEAM: Program Instructor: [place] PCP: Richie De La Torre Other provider: N/A Pre-Op Testing: LABS: CBC, CMP, Mg, PT/INR, UA Not working Recent Labs 02/08/18 0700 02/08/18 0500 02/08/18 0105 02/07/18 2243 02/07/18 1525 HBA1C -- -- -- 5.1 -- RBC -- 4.50* 4.70 -- 5.06 WBC -- 11.59* 10.39* -- 8.9 HB -- 14.5 15.1 -- 16.4 HCT -- 42.8 43.4 -- 47.3 PLT -- 222 202 -- 258 INR -- -- 1.05 1.10 1.10 APTT 28.5 -- 28.3 -- -- NA -- 137 -- -- 136 K -- 4.2 -- -- 4.0 CHLOR -- 107 -- -- 104 CO2 -- 24 -- -- 25 BUN -- 11 -- -- 13 CREAT -- 0.85 -- -- 0.91 GLUC -- 109* -- -- 111* CA -- 8.5 -- -- 8.8 MG -- -- -- 2.3 -- P -- 2.9 -- -- -- TPROT -- -- -- -- 7.5 TBILI -- -- -- -- 0.4 ALKPHOS -- -- -- -- 104 ALT -- -- -- -- 27 AST -- -- -- -- 23 ANION -- 10 -- -- 11 - not working HGB (g/dL) Date Value 02/08/2018 14.5 Hematocrit (%) Date Value 02/08/2018 42.8 WBC (thou/cmm) Date Value 02/08/2018 11.59 Platelet Count (thou/cmm) Date Value 02/08/2018 222 Chemistry Glucose (mg/dL) Date Value 02/08/2018 109 Potassium (mEq/L) Date Value 02/08/2018 4.2 Sodium (mEq/L) Date Value 02/08/2018 137 Chloride (mEq/L) Date Value 02/08/2018 107 CO2 (mEq/L) Date Value 02/08/2018 24 Creatinine (mg/dL) Date Value 02/08/2018 0.85 BUN (mg/dL) Date Value 02/08/2018 11 Anion Gap (no units) Date Value 02/08/2018 10 Calcium (mg/dL) Date Value 02/08/2018 8.5 Protein, Total (g/dL) Date Value 02/07/2018 7.5 Albumin (g/dL) Date Value 02/07/2018 3.0 Bilirubin, Total (mg/dL) Date Value 02/07/2018 0.4 Alkaline Phosphatase (U/L) Date Value 02/07/2018 104 AST (U/L) Date Value 02/07/2018 23 ALT (U/L) Date Value 02/07/2018 27 Coag Recent Labs 02/08/18 0700 02/08/18 0105 02/07/18 2243 02/07/18 1525 APTT 28.5 28.3 -- -- INR -- 1.05 1.10 1.10 - not working Type AND Cross: O+ MRSA Screen: Negative HGA1C Lab Results Component Value Date HBA1C 5.1 02/07/2018 PFT/ABG: FEVI: PENDING DLCO: N/A ABG: N/A Recent Labs 02/08/18 0500 CO2 24 . IMAGING/PROCEDURES CXR: 02/07/2018 IMPRESSION: 1. Interstitial markings are diffusely prominent and coarsened which could indicate interstitial lung disease, interstitial edema, atypical infection or combination thereof. Cardiac Catheterization: -Severe three vessel coronary artery disease. -50% stenosis in the proximal to mid left anterior descending artery. -70% stenosis in the mid left anterior descending artery. -70% stenosis in the proximal left circumflex artery. -70% stenosis in the proximal left circumflex artery. -90% stenosis in the proximal right coronary artery. -90% occlusive thrombus in the proximal right coronary artery. -70% stenosis in the mid right coronary artery. -The left ventricular ejection fraction was 45%. -Mild hypokinesis of the inferior wall of the left ventricle. 2D Echo: 02/08/2018 EF: 48% Findings: Left Ventricle: Mildly dilated left ventricle. LVIDd is 5.9 cm. Mild left ventricular hypertrophy. Mild left ventricular systolic dysfunction. LVEF is visually estimated in the 45-50% range. The LVEF is 48 % by modified Sullivan's Biplane method. The Global Longitudinal Strain = -12.7%. Left ventricular dysfunction appears to be generalized, without regional wall motion abnormalities. Stage I diastolic dysfunction: Abnormal relaxation with normal filling pressures. Right Ventricle: Normal right ventricular size and systolic function. Left Atrium: The left atrium appears normal in size. ROEL is 27.18 ml/m2. Right Atrium: The right atrium appears normal in size. The right atrium measures 15 cm2 by planimetry in the apical 4-chamber view. Mitral Valve: Structurally normal mitral valve with trivial mitral regurgitation. Aortic Valve: The aortic valve is structurally normal and trileaflet, without evidence of stenosis or regurgitation. Tricuspid Valve: Structurally normal tricuspid valve with trivial tricuspid regurgitation. RVSP could not be reliably estimated due to limited Doppler signal across the tricuspid valve. Pulmonic Valve: The pulmonic valve is not well visualized. No Doppler evidence of stenosis or insufficiency. Pulmonary Artery: The pulmonary artery is not well visualized. Ascending Aorta: The aorta measures 3.6 cm at the level of the sinuses of Valsalva and 3.6 cm at the mid ascending level. Pericardium: No evidence of pericardial effusion. Cardiac Shunt: There is no evidence of interatrial shunting by color Doppler. Vena Cava: The inferior vena cava is dilated and collapses (>50%) with inspiration. Right atrial pressure is estimated at 8 mmHg. 5 Meter Walk Test: N/A OPTIONAL TESTINGS: Carotid U/S: 02/08/2018 IMPRESSION: On the basis noninvasive vascular study, by?velocity criteria, there is less than 50% stenosis of the right and left internal carotid arteries. ?The vertebral arteries are antegrade. Lower EXT ANGELICA: N/A Palmar Arch: N/a Vein Mapping: n/a Dental Clearance: n/a CT Chest: N/A Medications Notes: . Blood thinners: Patient is on following blood thinners: none Beta Krystle: Last dose of beta krystle taken: CLEARANCES NEEDED Pulmonary: Yes GI: No Hematology: No Other: No Vega Mosquera CNP; Misti Stein PA-C Previous Version Beata Marin MD 02/10/2018 6:24 PM Signed [facility] - Operative Report SURGEON: Beata Marin MD PATIENT NAME: JEFFREY CULLEN CSN: [id number] DATE OF SURGERY: 02/09/2018 DATE OF : 1950 SEX/AGE: M/67 PATIENT TYPE: I HOSP SVC: ICU LOCATION: [id number] DATE OF SURGERY: 02/09/2018 SURGEON: Beata Marin MD PREOPERATIVE DIAGNOSIS: Severe 3-vessel coronary disease with non-ST segment elevation myocardial infarction. POSTOPERATIVE DIAGNOSIS: Severe 3-vessel coronary disease with non-ST segment elevation myocardial infarction with extensive acute inferior wall infarction/ischemia. RIGHT OF WAY CLEARER: Kristin Orozco SA, and Nick Orosco SA. ANESTHESIA: General endotracheal. INDICATION AND FINDINGS: This patient is a 67-year-old male, who was admitted to the hospital with signs and symptoms consistent with coronary artery disease. He was found to have an NSTEMI, but had very significant rise of the enzymes into the 30-40 range. Cardiac catheterization showed significant 3-vessel coronary artery disease involving the anterior descending, circumflex, and right coronary system. There was a lot of haze and possible clot in the right coronary lesion thought to be the culprit. He underwent rapid preoperative evaluation and preparation and was brought to surgery today for surgical myocardial revascularization. The findings at the time of surgery showed the patient to have extensive inferior wall and RV inferior wall akinesia. This was confirmed both by EMMANUEL and upon opening the pericardium. The patient had a number of episodes of bradycardia and hypotension during and after induction of general anesthesia. The patient's anterior descending was about a 2 millimeter vessel. The right coronary artery Was at least 2.5 millimeter vessel. The circumflex was probably a 2.75-3 millimeter vessel. The saphenous vein was of fair quality. The KUMAR was 2 millimeter vessel with some thickening in the wall adequate flow. The post pump ventricular function showed that the caudal RV and the inferior wall appeared to be moving a little bit better and this was confirmed by EMMANUEL after revascularization, but this was on epi as well. DETAILS OF PROCEDURE: The patient was brought to the operating room from the CVICU and placed on the operative table in supine position. Intravenous access was obtained. Intra-arterial access was obtained. General endotracheal anesthesia was induced. Episodes of bradycardia and hypotension were treated appropriately with some atropine and epinephrine. He was able to be recovered to adequate heart rate and blood pressure to allow us to prep and drape in a surgical fashion rather than emergently. The heart was exposed through median sternotomy incision while Left greater saphenous vein was harvested endoscopically from the left leg and left thigh for use as conduit. The pericardium was opened. The dense changes in the inferior wall as noted above were noted. I then proceeded with placement of the aortic pursestrings and the right atrial pursestring so we would be ready to crash on pump if needed. His heart rate and hemodynamics had improved somewhat and this did allow us an opportunity to then take down his KUMAR from behind the left chest wall as a pedicled graft. Systemic heparin was administered. The KUMAR was triply hemoclipped distally, divided, and prepared for anastomosis, and stored in the left pleural space. The pericardium was cradled again. The patient had a dense thick calcific plaque in the right posterior lateral distal ascending aorta. We were able to avoid this with cannulation and with the cross-clamp. The mid ascending aorta appeared to be reasonable for use to accomplish his bypass surgery. The distalascending aorta was cannulated for arterial return from the pump as was the vena cava via the right atrial appendage with a 2 stage venous cannula for venous drainage of the heart. The method of myocardial protection employed was blood cardioplegia given antegrade fashion, given down the vein grafts via an Octopus device, and given via coronary sinus catheter in retrograde fashion. All distal anastomoses and proximal anastomoses were constructed during a single cross-clamp episode. First graft to be done was the culprit vessel right coronary artery. This was 2.75-3 millimeter vessel. Arteriotomy was made just proximal to the crux. The end of segment saphenous vein was sutured to the arteriotomy with running 7-0 Prolene. Next graft to be done was the distal circumflex branch, which was a sizable double bifurcating, then trifurcating branch on the posterior wall. Arteriotomy was made. Second segment of saphenous vein was sutured to the arteriotomy with 7-0 Prolene. Next, the left internal mammary was brought through a rent in the pericardium lateral to the thymic fat pad. Arteriotomy was made in the anterior descending. End of KUMAR was sutured to the arteriotomy with running 7-0 Prolene. Bulldog clamp was briefly removed. Good filling was seen distally in the LAD as well as the diagonal. The bulldog clamp was replaced. The pedicle was then tacked to the epicardium on both sides of the anterior descending with 5- 0 silk. Attention was then turned to the ascending aorta. The 2 proximal anastomoses were constructed with 4.4 millimeter aortic punch and running 6- 0 Prolene. As we were completing the second proximal anastomosis, warm retrograde blood was given via the coronary sinus catheter to rewarm and resuscitate heart, and aid in de-airing the aortic root. The second proximal was completed, tied, and marked in standard fashion. Aortic cross-clamp was removed. The patient was then allowed adequate reperfusion and rewarming. During this time, the retrograde coronary sinus catheter was removed, its pursestring suture tied, and reinforced with 4-0 Prolene. Single right ventricular epicardial pacing wire was placed, tested, and ground wire was placed in the skin. He did require some initial pacing, but while we were still rewarming and reperfusing and checking for de-airing, his own sinus rhythm in the 70s came back and the pacemaker was no longer required. We then temporarily did ventilations of the lungs and allowed the heart to eject while we checked for de-airing the second time after another additional time of reperfusion. At this time, the inferior wall appeared to be moving slightly better. De-airing was deemed complete. Ventilations were held, cardiac ejections were stopped, cardioplegic venting apparatus was removed, and its 4-0 Prolene tied. After complete rewarming and adequate reperfusion, and with increase in the dose of epinephrine and additional reperfusion time, the inferior wall appeared to be moving slightly better. We were then able to separate from cardiopulmonary bypass on epinephrine inotropic support. Venous cannula was Removed, its pursestring suture was secured. After obtaining adequate cardiac function with stable hemodynamics, protamine was then administered to reverse the effects of the heparin. As we were completing the protamine dose, arterial cannula was removed, pursestring sutures were tied, and reinforced with 4-0 Prolene. After obtaining adequate hemostasis with continuing cardiac function and continued gradual improvement in the inferior wall, we then prepared to close. Right atrial pursestring was tied. Second tie was placed around the base of right appendage. The sternum was then approximated with multiple stainless steel wires. The remainder of the sternotomy incision was closed in layers with absorbable suture. Dermabond was placed. Chest tubes connected to water suction drainage device. We left in the special mediastinal Pleuraflow catheter and a left pleural tube. The endoscopic vein harvest incisions in the left lower extremity were closed as appropriate with absorbable suture and Dermabond was placed. The patient was then transported directly to the Cardiac Surgery Intensive Care Unit after correct sponge, needle, and instrument count. Beata Marin MD Cardiothoracic Surgery PS:carlyn /[id number] Previous Version Juan Cabral MD 02/09/2018 6:49 AM Signed PROGRESS NOTE CARDIOLOGY SERVICE SERVICE DATE: 02/09/2018 SERVICE TIME: 6:41 AM Subjective INTERIM HISTORY: Some sob; no chest pain; no syncope Objective PHYSICAL EXAM: Body mass index is 32.52 kg/(m2). O2 Therapy: Room Air No Data Recorded Patient Vitals for the past 24 hrs: BP Temp Temp src Pulse Resp SpO2 Weight 02/09/18 0600 145/80 - - 72 21 95 % 105.7 kg (233 lb 0.4 oz) 02/09/18 0500 107/69 - - 69 20 94 % - 02/09/18 0400 113/71 36.8 ?C (98.2 ?F) - 71 22 93 % - 02/09/18 0300 115/57 - - 70 18 96 % - 02/09/18 0200 138/69 - - 72 20 97 % - 02/09/18 0123 123/71 - - 71 22 95 % - 02/09/18 0048 119/76 36.8 ?C (98.2 ?F) - 71 26 96 % - 02/08/18 2300 121/67 - - 75 25 95 % - 02/08/18 2200 113/56 - - 81 23 95 % - 02/08/18 2150 123/76 - - 74 18 94 % - 02/08/18 2110 - - - - 18 - - 02/08/18 2101 - - - 72 17 95 % - 02/08/18 2100 105/72 - - 82 17 98 % - 02/08/18 2045 109/76 - - 84 20 94 % - 02/08/18 1909 - 37.2 ?C (99 ?F) Temporal Art - - - - 02/08/18 1840 - - - 70 20 - - 02/08/18 1830 105/66 - - 74 15 94 % - 02/08/18 1823 - - - 69 14 95 % - 02/08/18 1800 117/72 - - 73 23 92 % - 02/08/18 1730 119/66 - - 73 26 95 % - 02/08/18 1700 138/75 - - 75 21 95 % - 02/08/18 1630 103/69 - - 79 23 94 % - 02/08/18 1530 126/75 - - 82 17 96 % - 02/08/18 1500 103/64 36.5 ?C (97.7 ?F) Temporal Art 77 25 92 % - 02/08/18 1430 105/63 - - 76 20 95 % - 18 1400 116/68 - - 77 16 97 % - 18 1330 110/66 - - 74 20 97 % - 18 1300 113/62 - - 78 21 98 % - 02/08/18 1230 108/56 - - 80 22 95 % - 18 1200 108/67 - - 77 14 97 % - 02/08/18 1130 109/62 - - 78 21 97 % - 02/08/18 1118 - - - 70 22 98 % - 02/08/18 1105 - - - 72 20 96 % - 02/08/18 1100 120/65 - - 69 20 96 % - 02/08/18 1041 - 36.4 ?C (97.5 ?F) Temporal Art - - - - 02/08/18 1030 114/73 - - 72 20 96 % - 02/08/18 1000 123/79 - - 70 14 97 % - 02/08/18 0945 107/76 - - 71 22 94 % - 02/08/18 0930 123/79 - - 77 18 96 % - 02/08/18 0915 114/71 - - 75 23 92 % - 02/08/18 0900 118/75 - - 78 20 99 % - 02/08/18 0727 - 36.4 ?C (97.5 ?F) Temporal Art - - - - 02/08/18 0700 120/64 - - 78 23 97 % - Pleasant, comfortable, not in acute distress. Awake, alert, oriented times 3. Moves all extremities. NECK: , no JVD, no carotid bruit, no thyromegaly. LUNGS: no wheeze Diminished breath sounds ABDOMEN: Soft, nontender, EXTREMITIES: No edema. R groin cath site clean PULSES: Peripheral pulses present. CARDIAC:RRR, MEDICATIONS: Current hospital medications: aspirin 81 mg chewable tab(s) 81 mg ORAL DAILY atorvastatin 40 mg tab(s) (LIPITOR) 40 mg ORAL AT BEDTIME magnesium sulfate in water 2 g in sterile water 50 ml 2 g INTRAVENOUS PRN calcium gluconate 4 g in NaCl 0.9% 250 mL 4 g INTRAVENOUS PRN nitroglycerin 100 mg in D5W 250 mL 5 mcg/min INTRAVENOUS CONTINUOUS metoprolol tartrate (short acting) 25 mg tab(s) (LOPRESSOR) 25 mg ORAL q 12 H acetaminophen 650 mg tab(s) (TYLENOL) 650 mg ORAL q 6 H PRN HYDROcodone 5 mg - acetaminophen 325 mg tablet (NORCO) 1-2 tablet ORAL q 6 H PRN nicotine polacrilex 4 mg gum (NICORETTE) 4 mg ORAL q 2 H PRN heparin iv infusion (LOW DOSE ACS/NOMOGRAM) 25,000 units in NaCl 0.45% 250 mL PREMIX 0-3,000 Units/hr INTRAVENOUS CONTINUOUS heparin RATE CHANGE bolus 1,000-4,000 Units for subtherapeutic aptt results 1,000-4,000 Units INTRAVENOUS PRN mupirocin ointment (BACTROBAN) TOPICAL TID anticoagulant CPDA-1 39 mL, potassium chloride 36 mEq, sodium bicarbonate 45 mEq, Lidocaine HCl(PF) 180 mg in NaCl 0.9% 250 mL (CARDROPLEGIA SOLUTION - BAG 1) INTRACAVITY ONCE potassium chloride 25 mEq, Lidocaine HCl(PF) 100 mg in NaCl 0.9% 500 mL (CARDIOPLEGIA SOLUTION - BAG 2) INTRACAVITY ONCE heparin 1,500 Units in NaCl 0.9% 250 mL 1-5,000 Units/hr OTHER ONCE PHENYLephrine 20 mg in NaCl 0.9% 250 mL (NEOSYNEPHRINE) 25- 100 mcg/min INTRAVENOUS ONCE PHENYLephrine 10 mg in NaCl 0.9% 250 mL (NEOSYNEPHRINE) 25- 100 mcg/min INTRAVENOUS ONCE EPINEPHrine 4 mg in NaCl 0.9% 250 mL 0.5-4 mcg/min INTRAVENOUS ONCE insulin regular human 100 Units in NaCl 0.9% 100 mL 0.5 Units/hr INTRAVENOUS ONCE aminocaproic acid 10 g in NaCl 0.9% 250 mL (AMicAR) 1 g/hr INTRAVENOUS ONCE dexmedetomidine 400 mcg in NaCl 0.9% 100 mL (PRECEDEX) 0.2- 0.7 mcg/kg/hr ([place]) INTRAVENOUS ONCE nitroglycerin 100 mg in D5W 250 mL 5-200 mcg/min INTRAVENOUS ONCE nitroglycerin sublingual 0.4 mg tab(s) (NITROQUICK) 0.4 mg SUBLINGUAL PRN ipratropium-albuterol 3 mL nebulizer solution (DUONEB) 3 mL INHALATION QID 0.9% NaCl 3-5 mL 3-5 mL INTRAVENOUS q 12 H perflutren lipid microspheres 1.1 mg/mL 1.3 mL injection (DEFINITY) 1.3 mL INTRAVENOUS PRN(NO DISPENSE) DATA: Past 72 Hour Labs: Recent Labs 02/09/18 0407 02/09/18 0123 02/08/18 1210 02/08/18 0105 02/07/18 2243 02/07/18 1525 TROPI -- -- -- 39.700* < > -- 7.680* 0.93* WBC 8.26 -- -- -- < > 10.39* -- 8.9 RBC 4.45* -- -- -- < > 4.70 -- 5.06 HB 14.3 -- -- -- < > 15.1 -- 16.4 HCT 42.8 -- -- -- < > 43.4 -- 47.3 MCV 96.2* -- -- -- < > 92.3 -- 93.5 MCH 32.1 -- -- -- < > 32.1 -- 32.4* MCHC 33.4 -- -- -- < > 34.8 -- 34.7 PLT 187 -- -- -- < > 202 -- 258 MPV 10.0 -- -- -- < > 9.5 -- 9.6 GLUC 96 -- -- -- < > -- -- 111* BUN 12 -- -- -- < > -- -- 13 CREAT 0.90 -- -- -- < > -- -- 0.91 NA 139 -- -- -- < > -- -- 136 K 3.9 -- -- -- < > -- -- 4.0 CHLOR 108* -- -- -- < > -- -- 104 CO2 26 -- -- -- < > -- -- 25 TPROT -- -- -- -- -- -- -- 7.5 ALB -- -- -- -- -- -- -- 3.0* CA 8.7 -- -- -- < > -- -- 8.8 ALKPHOS -- -- -- -- -- -- -- 104 TBILI -- -- -- -- -- -- -- 0.4 AST -- -- -- -- -- -- -- 23 ALT -- -- -- -- -- -- -- 27 PTSEC -- -- -- -- -- 11.1 11.5 11.4 APTT -- 43.7* < > -- < > 28.3 -- -- INR -- -- -- -- -- 1.05 1.10 1.10 MG -- -- -- -- -- -- 2.3 -- < > = values in this interval not displayed. Last Lab Drawn: Triglyceride 63 02/07/2018 HDL Cholesterol 51 02/07/2018 LDL Calculated 110 02/07/2018 Cholesterol, Total 174 02/07/2018 Assessment/Plan 1.Nonstemi- severe 3vd on cath, EF 50%; needs CABG; CT surg consulted-CABG today 2.COPD-needs to stop smoking SIGNATURE: Juan Cabral MD PATIENT NAME: Jeffrey Cullen DATE: February 09, 2018 TIME: 6:41 AM PAGER/CONTACT #: [phone] Guerrero Reyna RN, RN 02/09/2018 8:54 AM Signed Nursing Progress Note Patient Name: Jeffrey Cullen Patient Location: [facility] Transfer Note: Patient transferred to OR with Anesthesia and Surgical Team. Actions taken: presurgical huddle completed. This note was completed by: RAINA Wilkins MD 02/09/2018 9:28 AM Signed Result Noted. Patient is currently hospitalized and managed by the in-patient team. MD Carlos Martinez MD 02/09/2018 9:34 AM Signed ANESTHESIOLOGY DAY OF SURGERY NOTE SERVICE DATE: 02/09/2018 SERVICE TIME: 9:32 AM : 1950 Procedure(s) (LRB): BYPASS GRAFT ARTERY CORONARY ON-PUMP THREE CORONARY VENOUS GRAFTS (N/A) Surgeon(s): Beata Marin Estimated body mass index is 32.52 kg/(m2) as calculated from the following: Height as of this encounter: 180.3 cm (5' 10.98). Weight as of this encounter: 105.7 kg (233 lb 0.4 oz). Most recent hematocrit and potassium results: Hematocrit 42.8 02/09/2018 Potassium 3.9 02/09/2018 ANES DOS/PREOP NOTE: Vitals: 02/09/18 0500 02/09/18 0600 02/09/18 0700 02/09/18 0800 BP: 107/69 145/80 121/62 124/80 Pulse: 69 72 66 69 Resp: Temp: 36.3 ?C (97.3 ?F) TempSrc: SpO2: 94% 95% 96% 97% Weight: 105.7 kg (233 lb 0.4 oz) 105.7 kg (233 lb 0.4 oz) Height: 180.3 cm (5' 10.98) ACTIVE PROBLEM LIST Inguinal Hernia Without Mention of Obstruction Or Gangrene, Unilateral Or Unspecified, (Not Specified As Recurrent) Nstemi (Non-St Elevated Myocardial Infarction) (Hcc) Nsvt (Nonsustained Ventricular Tachycardia) (Hcc) No past medical history on file. PAST SURGICAL HISTORY Procedure Laterality Date - ORTHOPEDICS SURGERY HX - REPAIR ING HERNIA,5+Y/O,REDUCIBL 1990 Hernia repair, inguinal,left FAMILY HISTORY Problem Relation Age of Onset - Alcohol/Drug Father - Colon Cancer Mother - Diabetes Mother Social History: Social History Substance Use Topics - Smoking status: Current Every Day Smoker Packs/day: 2.00 Years: 25.00 Types: Cigarettes - Smokeless tobacco: Not on file - Alcohol use No No current facility-administered medications on file prior to encounter. Current Outpatient Prescriptions on File Prior to Encounter: hydrocodone/ibuprofen(VICOPROFEN 7.5 MG-200 MG TAB) as necessary Current Facility-Administered Medications: aspirin 81 mg chewable tab(s) 81 mg ORAL DAILY Choco Godoy (Res) Nasser 81 mg at 02/09/18 0514 atorvastatin 40 mg tab(s) (LIPITOR) 40 mg ORAL AT BEDTIME Choco Godoy (Maco) Nasser 40 mg at 02/08/18 205 magnesium sulfate in water 2 g in sterile water 50 ml 2 g INTRAVENOUS PRN Choco Godoy (Res) Nasser calcium gluconate 4 g in NaCl 0.9% 250 mL 4 g INTRAVENOUS PRN Choco Godoy (Res) Nasser nitroglycerin 100 mg in D5W 250 mL 5 mcg/min INTRAVENOUS CONTINUOUS Choco Godoy (Res) Nasser Last Rate: 0.75 mL/hr at 02/08/18 0213 5 mcg/min at 02/08/18 0213 metoprolol tartrate (short acting) 25 mg tab(s) (LOPRESSOR) 25 mg ORAL q 12 H M. Walt (Res) Nasser 25 mg at 02/09/18 0514 acetaminophen 650 mg tab(s) (TYLENOL) 650 mg ORAL q 6 H PRN Jay Brice HYDROcodone 5 mg - acetaminophen 325 mg tablet (NORCO) 1-2 tablet ORAL q 6 H PRN Jay Brice nicotine polacrilex 4 mg gum (NICORETTE) 4 mg ORAL q 2 H PRN Anand (Res) Josue 4 mg at 02/08/18 1109 heparin iv infusion (LOW DOSE ACS/NOMOGRAM) 25,000 units in NaCl 0.45% 250 mL PREMIX 0-3,000 Units/hr INTRAVENOUS CONTINUOUS Anand (Res) Josue Stopped at 02/09/18 0630 And heparin RATE CHANGE bolus 1,000-4,000 Units for subtherapeutic aptt results 1,000-4,000 Units INTRAVENOUS PRN Anand (Res) Josue 3,100 Units at 02/09/18 0157 mupirocin ointment (BACTROBAN) TOPICAL TID Vega (Certified Physical Therapist Assistant) [place] anticoagulant CPDA-1 39 mL, potassium chloride 36 mEq, sodium bicarbonate 45 mEq, Lidocaine HCl(PF) 180 mg in NaCl 0.9% 250 mL (CARDROPLEGIA SOLUTION - BAG 1) INTRACAVITY ONCE Beata Marin potassium chloride 25 mEq, Lidocaine HCl(PF) 100 mg in NaCl 0.9% 500 mL (CARDIOPLEGIA SOLUTION - BAG 2) INTRACAVITY ONCE Beata Marin heparin 1,500 Units in NaCl 0.9% 250 mL 1-5,000 Units/hr OTHER ONCE Beata Marin PHENYLephrine 20 mg in NaCl 0.9% 250 mL (NEOSYNEPHRINE) 25- 100 mcg/min INTRAVENOUS ONCE Beata Marin PHENYLephrine 10 mg in NaCl 0.9% 250 mL (NEOSYNEPHRINE) 25- 100 mcg/min INTRAVENOUS ONCE Beata Marin EPINEPHrine 4 mg in NaCl 0.9% 250 mL 0.5-4 mcg/min INTRAVENOUS ONCE Beata Marin insulin regular human 100 Units in NaCl 0.9% 100 mL 0.5 Units/hr INTRAVENOUS ONCE Beata Marin aminocaproic acid 10 g in NaCl 0.9% 250 mL (AMicAR) 1 g/hr INTRAVENOUS ONCE Beata Marin dexmedetomidine 400 mcg in NaCl 0.9% 100 mL (PRECEDEX) 0.2- 0.7 mcg/kg/hr ([place]) INTRAVENOUS ONCE Beata Marin nitroglycerin 100 mg in D5W 250 mL 5-200 mcg/min INTRAVENOUS ONCE Beata Marin nitroglycerin sublingual 0.4 mg tab(s) (NITROQUICK) 0.4 mg SUBLINGUAL PRN Saud Mario MD 0.4 mg at 02/08/18 0130 ipratropium-albuterol 3 mL nebulizer solution (DUONEB) 3 mL INHALATION QID Saud Mario MD 3 mL at 02/08/182057 0.9% NaCl 3-5 mL 3-5 mL INTRAVENOUS q 12 H Saud Mario MD 5 mL at 02/08/182048 perflutren lipid microspheres 1.1 mg/mL 1.3 mL injection (DEFINITY) 1.3 mL INTRAVENOUS PRN(NO DISPENSE) Saud Mario MD Allergies: ALLERGIES No Known Allergies DOS EXAM: Adequate NPO status: Yes Anesthetic risks, benefits, alternatives, personnel and consent discussed: Yes Patient agrees to proceed: Yes Previous Anesthesia: No history of adverse event. Airway Assessment: MP 2; Neck ROM: Full ROM without neurologic symptoms; Airway Evaluation: No significant abnormalities Symptoms of Sleep Apnea: Hypertension, Age over 50 (67 year old) and Male gender Dentition: Edentulous Additional Physical Exam: Lungs: Patient health status unchanged since recent history and physical. See history and physical for exam findings. Cardiac: Patient health status unchanged since recent history and physical. See history and physical for exam findings. Additional Pertinent Findings: N/A Blood Products: Not anticipated for this procedure. Anesthetic Plan: General, Standard ASA Monitors and swan daphne , art line, EMMANUEL Pain Management Plan: Parenteral or Oral ASA Class: 4 Other Medical Problems: None Chronic Beta Krystle medication administered within 24 hours: Yes I have interviewed and examined the patient. I have reviewed the medical record and/or the pre-anesthesia evaluation, pertinent labs, and test results. Significant changes in the patient's condition since the History and Physical, not otherwise documented in primary service progress notes: No This contains updated information obtained within 48 hours of Surgery/Procedure. SIGNATURE: Carlos Monroe MD PATIENT NAME: Jeffrey Cullen DATE: February 09, 2018 TIME: 9:32 AM CSN: [id number] Kathryn Corley RN, RN 02/09/2018 10:37 AM Signed SISTER WAS UPDATED WHEN SURGERY STARTED AND JUST NOW. Kathryn Corley RN, RN 02/09/2018 12:34 PM Signed SISTER UPDATED . Beata Marin MD 02/09/2018 1:36 PM Signed CARDIOTHORACIC BRIEF OP NOTE LOG ID: [id number] SURGERY/PROCEDURE DATE: 02/09/2018 INCISION/PROCEDURE START TIME: 9:13 AM INCISION CLOSE/PROCEDURE END TIME: 1:31 PM SURGEON(S) AND RIGHT OF WAY CLEARER(S): Surgeon(s) and Role: * Beata Marin - Primary Clinical Cytopathologist: Kristin Lei) SA Pam; Elkin () SA Ana Luisa PROCEDURES AND ANESTHESIA: CABG X 3 with pedicled KUMAR to LAD, svg to circ, svg to RCA. Procedure(s) and Anesthesia Type: * BYPASS GRAFT ARTERY CORONARY ON-PUMP THREE CORONARY VENOUS GRAFTS - General Great Saphenous Vein, Left , Percutaneous endoscopic ANESTHESIA: General BRIEF FINDINGS: LAD not as big as circ and RCA, extensive inferior wall ischemia/infarction With bradycardia and hypotension. PREOPERATIVE DIAGNOSIS: coronary artery disease and acute NSTEMI POSTOPERATIVE DIAGNOSIS: same ESTIMATED BLOOD LOSS: 200ml SPECIMENS: None COMPLICATIONS: None SIGNATURE: Beata Marin MD PATIENT NAME: Jeffrey Cullen DATE: February 09, 2018 TIME: 1:32 PM PAGER/CONTACT #: [phone] Juan Cabral MD 02/09/2018 1:51 PM Signed Result Noted. Patient is currently hospitalized and managed by the in-patient team. MD Guerrero Martinez RN, RN 02/09/2018 2:32 PM Signed Nursing Progress Note Patient Name: Jeffrey Cullen Patient Location: [id number]* Event(s) / Intervention Note: Patient arrived back in CVICU from OR for CABG. This note was completed by: Guerrero Reyna RN Elkin Zuleta MD 02/09/2018 3:28 PM Signed CRITICAL CARE CONSULT NOTE SERVICE DATE: 02/09/2018 SERVICE TIME: 3:12 PM REASON FOR CONSULT: Confusion and Delirium, COPD and S/P Surgery REQUESTING PHYSICIAN: Dr. Marin? ADMITTING PROVIDER: Saud Mario MD SERVICE DATE: 02/09/2018 SERVICE TIME: 2.55 PM Admission Date: 02/07/2018 AGE: [age] year old LOS: 2 days Subjective 67yo WM s/p CABG x 3 seen in CVICU. Opens eyes to name but agitated and writhing about requiring restraints. On Precedex 0.7mcg/kg/hr. Has just received PRBC Tx. Chart reports 2PPD smoker x 45 years ongoing [employer] PERSON[employer]. No PFTs avaiable. No family available for history. Admitted 02/07 with chest pain and found to have NSTEMI. Alcohol use denied. Objective PROBLEMS: ACTIVE PROBLEM LIST Inguinal Hernia Without Mention of Obstruction Or Gangrene, Unilateral Or Unspecified, (Not Specified As Recurrent) Nstemi (Non-St Elevated Myocardial Infarction) (Hcc) Nsvt (Nonsustained Ventricular Tachycardia) (Hcc) Nicotine use disorder, F17.2 No past medical history on file. PAST SURGICAL HISTORY Procedure Laterality Date - ORTHOPEDICS SURGERY HX - REPAIR ING HERNIA,5+Y/O,REDUCIBL 1990 Hernia repair, inguinal,left Social History Marital status: Single Spouse name: Years of education: Number of children: Social History Main Topics Smoking status: Current Every Day Smoker Packs/day: 2.00 Years: 25.00 Types: Cigarettes Alcohol use: No Drug use: No Sexual activity: Yes Partners with: Female Other Topics Concern Service No Blood Transfusions No Caffeine Concern No Occupational Exposure No Hobby Hazards No Sleep Concern No Stress Concern No Weight Concern No Special Diet No Back Care No Exercise No Bike Helmet No Seat Belt No Self-Exams No VITAL SIGNS (last 24hrs min/max): Temp Av.8 ?C (98.2 ?F) Min: 36.3 ?C (97.3 ?F) Max: 37.2 ?C (99 ?F) Pulse Av.5 Min: 66 Max: 107 Arterial BP 1 Min: 98/53 Max: 147/67 Cuff BP Min: 103/69 Max: 151/104 Pain Score: 10/10 Vital signs reviewed. BP 141/93 Pulse 102 Temp (Src) 97.3 (Temporal Artery) Resp 21 Ht 5' 10.984 (1.80m) Wt 233 lb 0.4 oz (105.7kg) SpO2 95% BMI 32.51 kg/(m2). Temp (24hrs), Av.8 ?C (98.2 ?F), Min:36.3 ?C (97.3 ?F), Max:37.2 ?C (99 ?F) NET FLUID BALANCE Intake/Output Summary (Last 24 hours) at 02/09/18 1512 Last data filed at 02/09/18 1445 Gross per 24 hour Intake 532 ml Output 700 ml Net -168 ml MEDICATIONS Current Facility-Administered Medications: acetaminophen 650 mg tab(s) (TYLENOL) 650 mg ORAL q 6 H PRN insulin regular iv infusion 250 units in NaCl 0.9% 250 mL - [place] CARD SURG NOMOGRAM 0-12 Units/hr INTRAVENOUS CONTINUOUS insulin regular human iv bolus 10 Units 10 Units INTRAVENOUS PRN dextrose 50% in water 25 mL syringe 12.5 g INTRAVENOUS PRN dexmedetomidine 400 mcg in NaCl 0.9% 100 mL (PRECEDEX) 0.2- 0.7 mcg/kg/hr INTRAVENOUS CONTINUOUS potassium chloride iv piggyback 20 mEq in sterile water 100 mL 20 mEq INTRAVENOUS PRN magnesium sulfate in water 2 g in sterile water 50 ml 2 g INTRAVENOUS PRN(NO DISPENSE) NaCl 0.9% iv infusion 50 mL/hr INTRAVENOUS CONTINUOUS albumin (5%) 12.5 g infusion 12.5 g INTRAVENOUS PRN albuterol 2.5 mg /3 mL (0.083 %) 2.5 mg (PROVENTIL) 2.5 mg INHALATION q 2 H PRN EPINEPHrine 4 mg in NaCl 0.9% 250 mL 0.5-10 mcg/min INTRAVENOUS CONTINUOUS niCARdipine 40 mg in NaCl 0.9% 200 mL infusion (CARDENE) 5- 10 mg/hr INTRAVENOUS CONTINUOUS ceFAZolin iv piggyback 2 g in D5W (iso-osmotic) 100 mL (ANCEF) 2 g INTRAVENOUS q 6 HR calcium chloride 1 g in D5W 100 mL 1 g INTRAVENOUS PRN(NO DISPENSE) midazolam (PF) 2 mg injection (VERSED) 2 mg INTRAVENOUS q 6 H PRN oxyCODONE-acetaminophen 5-325 mg 1-2 tablet (PERCOCET) 1-2 tablet ORAL q 4 H PRN morphine 2-4 mg injection 2-4 mg INTRAVENOUS q 1 H PRN ondansetron (PF) 4 mg injection (ZOFRAN) 4 mg INTRAVENOUS q 6 H PRN atorvastatin 40 mg tab(s) (LIPITOR) 40 mg ORAL AT BEDTIME metoprolol tartrate (short acting) 25 mg tab(s) (LOPRESSOR) 25 mg ORAL q 12 H ipratropium-albuterol 3 mL nebulizer solution (DUONEB) 3 mL INHALATION QID 0.9% NaCl 3-5 mL 3-5 mL INTRAVENOUS q 12 H Lines, Drains, and Airways Line Peripheral 02/07/18 1600 Admission to Hospital Short Right Antecubital 1 day Peripheral 02/08/18 0100 Short Right Arm 20 Gauge 1 day Peripheral 02/08/18 0700 Short Left Forearm 1 day Arterial Line 02/09/18 0830 Arterial Line Left Radial less than 1 day Central Line Double Lumen 02/09/18 0845 Non-tunneled Right Leg less than 1 day Peripheral 02/09/18 0820 Left Forearm 16 Gauge less than 1 day Drain Chest Tube 02/09/18 1200 Assessment Midline Anterior Mediastinal Tube #2 less than 1 day Chest Tube 02/09/18 1200 Left Anterior Pleural Tube #1 less than 1 day GI Feed/Drain 02/09/18 0800 Oral Gastric Midline less than 1 day Indwelling Urinary Catheter 02/09/18 0838 Temperature Monitoring 16 Fr less than 1 day Airway Airway Endotracheal Tube 02/09/18 0800 less than 1 day PHYSICAL EXAM PERFORMED: WD WN age-appropriate WF who will open eyes to name and track. Cardiovascular: Regular tachycardia Respiratory: Expiratory wheezes and short rhonchi bilaterally. Decreased BSs. VENT: SIMV-12 Vt-600ml PS-15 P--5 FiO2 70%. SaO2 93-94%. Abdomen: Soft, Nontender and rare BSs Extremities: Edema- No Neurologic: Alert, Moving all extremities, Agitated and Delirious Respiratory/Nursing Documentation: O2 Therapy: Ventilator (02/09/18 1400) Invasive Ventilator Mode: Synchronized Intermittent Mandatory Ventilation;Pressure Support Ventilation (02/09/18 1355) Set Ventilator Respiratory Rate (BPM): 12 (02/09/18 1355) Total Respiratory Rate (BPM): 12 (02/09/18 1355) Tidal Volume Set (mL): 600 (02/09/18 1355) Exhaled Tidal Volume (mL): 610 (02/09/18 135) Minute Volume (L): 7.3 (02/09/18 135) Peak Inspiratory Pressure (cm H2O): 21 (02/09/18 1355) PEEP/CPAP (cm H2O): 5 (02/09/18 135) HEMODYNAMIC DATA: Reviewed NUTRITION: Enteral Feeds: No NPO DATA: Diagnostic tests reviewed for today's visit, films/specimens were personally reviewed by me: Most recent labs and imaging results. LABS: Recent Labs 02/09/18 1405 02/08/18 1210 TROPI -- -- 39.700* WBC 22.43* < > -- RBC 3.96* < > -- HB 13.1* < > -- HCT 38.7* < > -- MCV 97.7* < > -- PLT 157 < > -- GLUC 161* < > -- BUN 12 < > -- CREAT 0.96 < > -- NA 142 < > -- K 4.3 < > -- CHLOR 113* < > -- CO2 25 < > -- TPROT 5.2* -- -- ALB 2.5* -- -- CA 7.9* < > -- ALKPHOS 64 -- -- TBILI 0.6 -- -- AST 88* -- -- ALT 30 -- -- PTSEC 12.6* -- -- APTT 23.0 < > -- INR 1.24 -- -- MG 1.8 -- -- < > = values in this interval not displayed. ABG: Recent Labs 02/09/18 1400 02/09/18 1252 02/09/18 1217 PH 7.193* 7.236* 7.372 PO2 94.7 93.0 168.0* PCO2 62.0* -- -- Assessment/Plan IMPRESSION: Critical Care Documentation: The patient has the following organ/system impairment(s): Encephalopathy and respiratory acidosis and hypercapnea 1. S/P CABG x 3 with multivessel CADse 2. Hypercapnea 3. Long history of heavy cigarette smoking. 4. Post-op CXR with bibasilar atelectasis--no focal infiltrate. MMP CRITICAL CARE PLAN: Bronchodilators , Ventilatory support , Weaning and inhaled steroids and Propofol. This patient has a high probability of sudden, clinically significant deterioration, which requires the highest level of physician preparedness to intervene urgently. I managed/supervised life or organ supporting interventions that required frequent physician assessment. I devoted my full attention to the direct care of this patient for the amount of time indicated below. Time I spent with family or surrogate(s) is included only if the patient was incapable of providing the necessary information or participating in medical decision making. Time devoted to teaching is not included. Discussed with staff/patient/family Time spent providing critical care services: 35 minutes excluding procedures. SIGNATURE: Elkin Zuleta MD PATIENT NAME: Jeffrey Cullen DATE: February 09, 2018 TIME: 3:12 PM Clementnie Owen COMPUTER EQUIPMENT INSTALLER.SPRAY UNIT FEEDER 02/09/2018 4:49 PM Signed CARDIOTHORACIC SURGERY POSTOP PROGRESS NOTE SERVICE DATE: 02/09/2018 SERVICE TIME: 4:35 PM Subjective S/P SURGERY: Procedure(s) (LRB): BYPASS GRAFT ARTERY CORONARY ON-PUMP THREE CORONARY VENOUS GRAFTS (N/A) DATE OF SURGERY: 02/09/2018 POSTOP DAY #0 LOS: 2 INTERVAL EVENTS / PERTINENT ROS: Patient came out of OR on Epi. Woke up, agitated and restless. Not following commands but attempting to sit straight up in bed. Objective Admission Weight: 104.3 kg (229 lb 15 oz) BP 141/93 Pulse 107 Temp 36.8 ?C (98.2 ?F) (Temporal Artery) Resp 19 Ht 180.3 cm (5' 10.98) Wt 105.7 kg (233 lb 0.4 oz) SpO2 97% BMI 32.52 kg/m2 Body surface area is 2.3 meters squared. Min/Max/Average Temperature AND Blood Pressure: Temp (24hrs), Av.8 ?C (98.2 ?F), Min:36.3 ?C (97.3 ?F), Max:37.2 ?C (99 ?F) Systolic (24hrs), Av , Min:105 , Max:151 Diastolic (24hrs), Av, Min:56, Max:104 Intake/Output Summary (Last 24 hours) at 02/09/18 1635 Last data filed at 02/09/18 1600 Gross per 24 hour Intake 592 ml Output 1048 ml Net -456 ml Current Facility-Administered Medications: - acetaminophen 650 mg tab(s) (TYLENOL) - [START ON 02/10/2018] aspirin 81 mg chewable tab(s) - insulin regular iv infusion 250 units in NaCl 0.9% 250 mL - AK CARD SURG NOMOGRAM - insulin regular human iv bolus 10 Units - dextrose 50% in water 25 mL syringe - dexmedetomidine 400 mcg in NaCl 0.9% 100 mL (PRECEDEX) - potassium chloride iv piggyback 20 mEq in sterile water 100 mL - magnesium sulfate in water 2 g in sterile water 50 ml - NaCl 0.9% iv infusion - albumin (5%) 12.5 g infusion - albuterol 2.5 mg /3 mL (0.083 %) 2.5 mg (PROVENTIL) - EPINEPHrine 4 mg in NaCl 0.9% 250 mL - niCARdipine 40 mg in NaCl 0.9% 200 mL infusion (CARDENE) - calcium chloride 1 g in D5W 100 mL - oxyCODONE-acetaminophen 5-325 mg 1-2 tablet (PERCOCET) - morphine 2-4 mg injection - [START ON 02/10/2018] pantoprazole 40 mg injection (PROTONIX) - ondansetron (PF) 4 mg injection (ZOFRAN) - ceFAZolin iv piggyback 2 g in D5W (iso-osmotic) 100 mL (ANCEF) - propofol infusion (DIPRIVAN) - ipratropium-albuterol 3 mL nebulizer solution (DUONEB) - budesonide 0.5 mg/2 mL 0.5 mg (PULMICORT) - PHENYLephrine 80 mg in D5W 250 mL (NEOSYNEPHRINE) - atorvastatin 40 mg tab(s) (LIPITOR) - 0.9% NaCl 3-5 mL TELEMETRY: sinus tachycardia PHYSICAL EXAM: General Appearance: well developed and restless Skin: Midsternal incision dry AND intact. and SVG incisions dry AND intact. Lungs: decreased breath sounds and respiratory effort: normal Heart: regular rhythm, S1, S2 normal and pacing wires present Abdomen: soft and bowel sounds present Genitourinary: High intact, urine color is clear yellow Extremities: normal exam of the extremities Chest tubes intact to -20 cm suction with bloody output Lines, Drains, and Airways Line Peripheral 02/07/18 1600 Admission to Hospital Short Right Antecubital 2 days Peripheral 02/08/18 0100 Short Right Arm 20 Gauge 1 day Peripheral 02/08/18 0700 Short Left Forearm 1 day Arterial Line 02/09/18 0830 Arterial Line Left Radial less than 1 day Central Line Double Lumen 02/09/18 0845 Non-tunneled Right Leg less than 1 day Peripheral 02/09/18 0820 Left Forearm 16 Gauge less than 1 day Drain Chest Tube 02/09/18 1200 Assessment Midline Anterior Mediastinal Tube #2 less than 1 day Chest Tube 02/09/18 1200 Left Anterior Pleural Tube #1 less than 1 day GI Feed/Drain 02/09/18 0800 Oral Gastric Midline less than 1 day Indwelling Urinary Catheter 02/09/18 0838 Temperature Monitoring 16 Fr less than 1 day Airway Airway Endotracheal Tube 02/09/18 0800 less than 1 day DATA: Diagnostic tests reviewed for today's visit: Recent Labs 02/09/18 1405 02/09/18 1252 02/09/18 1217 02/09/18 0407 02/09/18 0123 02/08/18 1730 02/08/18 0500 02/08/18 0105 02/07/18 2243 02/07/18 1525 HBA1C -- -- -- -- -- -- -- -- -- -- 5.1 -- RBC 3.96* -- -- -- 4.45* -- -- -- 4.50* 4.70 -- 5.06 WBC 22.43* -- -- -- 8.26 -- -- -- 11.59* 10.39* -- 8.9 HB 13.1* -- -- -- 14.3 -- -- -- 14.5 15.1 -- 16.4 HCT 38.7* 29* 30* < > 42.8 -- -- -- 42.8 43.4 -- 47.3 PLT 157 -- -- -- 187 -- -- -- 222 202 -- 258 INR 1.24 -- -- -- -- -- -- -- -- 1.05 1.10 1.10 APTT 23.0 -- -- -- -- 43.7* 25.8 < > -- 28.3 -- -- NA 142 144 138 < > 139 -- -- -- 137 -- -- 136 K 4.3 4.0 5.3* < > 3.9 -- -- -- 4.2 -- -- 4.0 CHLOR 113* -- -- -- 108* -- -- -- 107 -- -- 104 CO2 25 -- -- -- 26 -- -- -- 24 -- -- 25 BUN 12 -- -- -- 12 -- -- -- 11 -- -- 13 CREAT 0.96 -- -- -- 0.90 -- -- -- 0.85 -- -- 0.91 GLUC 161* -- -- -- 96 -- -- -- 109* -- -- 111* CA 7.9* -- -- -- 8.7 -- -- -- 8.5 -- -- 8.8 MG 1.8 -- -- -- -- -- -- -- -- -- 2.3 -- P -- -- -- -- -- -- -- -- 2.9 -- -- -- TPROT 5.2* -- -- -- -- -- -- -- -- -- -- 7.5 TBILI 0.6 -- -- -- -- -- -- -- -- -- -- 0.4 ALKPHOS 64 -- -- -- -- -- -- -- -- -- -- 104 ALT 30 -- -- -- -- -- -- -- -- -- -- 27 AST 88* -- -- -- -- -- -- -- -- -- -- 23 ANION 8 -- -- -- 9 -- -- -- 10 -- -- 11 MRSA -- -- -- -- -- -- -- -- -- No MRSA detected. -- -- < > = values in this interval not displayed. Recent Labs 02/09/18 1400 02/09/18 1252 02/09/18 1217 02/09/18 1144 PH 7.193* 7.236* 7.372 7.415 PCO2 62.0* -- -- -- PO2 94.7 93.0 168.0* 256.0* BE -5.7 -- -- -- HCO3 -- 21.1* 20.9* 23.7 Assessment/Plan Acute NSTEMI s/p CABG x 3 Anticipated acute pulmonary insufficiency s/p CTS 2/2 underlying COPD AND atelectasis Respiratory acidosis Anticipated vasodilation s/p CTS; on Epi Leukocytosis, likely reactive Chronic nicotine dependence Plan: -c/w ASA, statin. No BB until off Epi -Monitor chest tube output -Vent support; wean per protocol -Propofol for sedation -Duonebs -Post thorax vest Tests/Labs Ordered: 1. Chest X-ray 2. BMP 3. CBC 4. ABG 5. PT/INR/PTT SIGNATURE: Clementine Owen CNP PATIENT NAME: Jeffrey Cullen DATE: February 09, 2018 TIME: 4:35 PM PAGER/CONTACT #: [phone] Juan Cabral MD 02/09/2018 5:37 PM Signed Result Noted. Patient is currently hospitalized and managed by the in-patient team. MD Efren Martinez MD 02/09/2018 7:54 PM Signed POST ANESTHESIA EVALUATION NOTE SERVICE DATE: 02/09/2018 SERVICE TIME: 7:54 PM : 1949 Vitals: 02/09/18 0700 02/09/18 1536 02/09/18 1800 02/09/181847 Temp: 36.3 ?C (97.3 ?F) 36.8 ?C (98.2 ?F) 37.4 ?C (99.3 ?F) 37.4 ?C (99.3 ?F) 02/09/18 1725 02/09/18 1752 02/09/18 1800 02/09/18 184 Arterial BP 1: 128/63 99/53 70/39 122/67 BP: 105/72 105/72 103/56 02/09/18 1725 02/09/18 1752 02/09/18 1800 02/09/18 184 Pulse: 101 101 102 102 02/09/18 1725 02/09/18 1752 02/09/18 1800 02/09/18 1848 Resp: 15 15 14 14 02/09/18 1700 02/09/18 1725 02/09/18 1752 02/09/18 1800 SpO2: 98% 100% 98% 96% Validated Vital Signs: Yes POST ANES STATUS: PACU/ICU Patient Condition: Stable Neurological Status: On intravenous sedation. Pulmonary Status: On invasive mechanical ventilation. Airway Control: Intubated on mechanical ventilation. Cardiovascular Status: Stable Pain: Adequately controlled Postoperative Nausea/Vomiting: No significant post operative nausea or vomiting Postoperative Hydration Status: Adequate. Anesthetic Complications: None Recommendation: Continue current plan of care Other Remarks: SIGNATURE: Efren Tesfaye MD PATIENT NAME: Jeffrey Cullen DATE: February 09, 2018 TIME: 7:54 PM PAGER/CONTACT #: [phone] Juan Cabral MD 02/10/2018 8:38 AM Signed Result Noted. Patient is currently hospitalized and managed by the in-patient team. MD Juan Martinez MD 02/10/2018 10:12 AM Signed Result Noted. Patient is currently hospitalized and managed by the in-patient team. MD Juan Martinez MD 02/10/2018 10:27 AM Signed Result Noted. Patient is currently hospitalized and managed by the in-patient team. MD Harpreet Martinez, PT 02/10/2018 11:20 AM Signed PHYSICAL THERAPY MISSED VISIT SERVICE DATE: 02/10/2018 SERVICE TIME: 1119 to 1120 ROOM: [place] [address] Attempted Evaluation. Patient not seen due to Illness (Intubated). SIGNATURE: Harpreet Hardin PT PATIENT NAME: Jeffrey Cullen DATE: February 10, 2018 TIME: 11:20 AM PAGER/CONTACT #: HEATHER Pop/Fara 02/10/2018 12:06 PM Signed OCCUPATIONAL THERAPY MISSED VISIT SERVICE DATE: 02/10/2018 SERVICE TIME: 1202 to 1202 ROOM: [place] [address] Attempted Evaluation. Patient not seen due to (s/p CABG 02/09 still intubated). SIGNATURE: XU Pop PATIENT NAME: Jeffrey Cullen DATE: February 10, 2018 TIME: 12:06 PM PAGER/CONTACT #: Ale Key RN, RN 02/10/2018 1:07 PM Addendum CARE MANAGEMENT: ASSESSMENT AND DISCHARGE PLAN SERVICE DATE: 02/10/2018 SERVICE TIME: 12:39 PM PRIMARY CARE PHYSICIAN: Richie De La Torre DO ADMISSION STATUS: Inpatient Needs Prior to Discharge: OT/PT Evaluation;Discharge Transportation;Accepting Facility MEDICAL: Patient/Rn Spine Stated Goals: sister trev here from [place] until 02/15 anticipate snf at [facility] Health Insurance: MEDICARE A AND B [employer] Health Issues Impacting Discharge Plan: None Last Admission Date: none Is this Within the Past 30 days? No Advance Directive: Health Literacy: 1. How often do you need to have someone help you when you read instructions, pamphlets, or other written material from your doctor or pharmacy? Never - 1 2. How confident are you filling out medical forms by yourself? Extremely - 1 If Patient scores > 3 on either question, the following interventions were put into place: Patient did not score > 3 FUNCTIONAL AND COGNITIVE/BEHAVIORAL PRIOR TO ADMISSION: Baseline Mental Status: Alert AND Oriented, Person, Place , Time and Situation Functional Status: Independent Does Patient Currently Receive Any Community Services or Home Care? None Equipment Prior to Admission: None Has the Patient Been in a [facility] Facility in the Past 30 days? No SOCIAL: Living Arrangement: Home Lives With: Alone Financial Resources: Retired Primary Contact: Extended Emergency Contact Information Primary Emergency Contact: Trev Carmen Relation: Sister Supportive: Yes Other Important Patient Contacts: None Caregiver Assessment: Caregiver is ready, willing and able to meet the patient's needs as recommended by the inter-professional team? sister returning to [facility] tue--no other family Patient's transition needs and plan for meeting these needs: extubate Does the patient have an acute stroke diagnosis, or has the patient had a stroke during this admission? No Medication Adherence: I am convinced of the importance of my prescription medication: Agree completely - 0 I worry that my prescription medication will do more harm than good to me Disagree mostly - 0 I feel financially burdened by my [id number] expenses for my prescription medication: Agree completely - 2 Patient is categorized as medium risk score 2-7: The following interventions are being put into place - sister reports expensive inhalers *follow for new neds ?pharm conc Are you interested in bedside delivery of your medications? No Food Concerns: In the Last Month, Have You had Trouble Getting Food? No trouble getting food During the Last Month, Have You Worried Whether Your Food Would Run Out Before You Had Enough Money to Buy More? No Is the Patient Psychosocially Complex? No ASSESSMENT AND PLAN: Medical Needs: None Psychosocial Needs: None FREEDOM OF CHOICE EXPLAINED: N/A sister and he had prev discussed [facility] plan to [place] [facility] at [facility] POTENTIAL TRANSITION PLANS Fci Facility/Intermediate Care Facility To Be Determined Met with pt's sister at bedside (in town from [place] through 02/15) NO other family. Prev discussed and now he will need rehab and would like to go to [place] [facility]. Pt still intubated will follow up next week. Evals are ordered. PS tasked to follow SIGNATURE: Ale Key RN PATIENT NAME: Jeffrey Cullen DATE: February 10, 2018 TIME: 12:39 PM PAGER/CONT# [phone] Previous Version Juan Cabral MD 02/10/2018 12:43 PM Signed Result Noted. Patient is currently hospitalized and managed by the in-patient team. MD Elkin Martinez MD 02/10/2018 1:13 PM Signed MICU - PROGRESS NOTE SERVICE DATE: 02/10/2018 SERVICE TIME: 12:58 PM Admission Date: 02/07/2018 AGE: [age] year old LOS: 3 days Subjective REASON FOR ICU ADMISSION: Confusion and Delirium, COPD and S/P Surgery Sedated now with 40mcg/kg/min IV Diprivan. Family at bedside. VENT: PRVC-16 Vt-550ml P-5 PSV-10 FiO2 50% with SaO2 94% Ve-11.3l/min Objective VITAL SIGNS (last 24hrs min/max): Temp Av.3 ?C (99.2 ?F) Min: 36.8 ?C (98.2 ?F) Max: 37.6 ?C (99.7 ?F) Pulse Av.7 Min: 74 Max: 116 Arterial BP 1 Min: 70/39 Max: 163/83 Cuff BP Min: 99/61 Max: 151/104 Pain Score: 0/10 Vital signs reviewed. BP 103/67 Pulse 83 Temp (Src) 98.8 (Core) Resp 12 Ht 5' 10.984 (1.80m) Wt 238 lb 12.1 oz (108.3kg) SpO2 95% BMI 33.31 kg/(m2). Temp (24hrs), Av.3 ?C (99.2 ?F), Min:36.8 ?C (98.2 ?F), Max:37.6 ?C (99.7 ?F) NET FLUID BALANCE Intake/Output Summary (Last 24 hours) at 02/10/18 1258 Last data filed at 02/10/18 1200 Gross per 24 hour Intake 2331 ml Output 3123 ml Net -792 ml MEDICATIONS Current Facility-Administered Medications: Chlorhexidine Gluconate 0.12 % 15 mL (PERIDEX) 15 mL ORAL q 12 H acetaminophen 650 mg tab(s) (TYLENOL) 650 mg ORAL q 6 H PRN aspirin 81 mg chewable tab(s) 81 mg ORAL DAILY insulin regular iv infusion 250 units in NaCl 0.9% 250 mL - AK CARD SURG NOMOGRAM 0-12 Units/hr INTRAVENOUS CONTINUOUS insulin regular human iv bolus 10 Units 10 Units INTRAVENOUS PRN dextrose 50% in water 25 mL syringe 12.5 g INTRAVENOUS PRN dexmedetomidine 400 mcg in NaCl 0.9% 100 mL (PRECEDEX) 0.2- 0.7 mcg/kg/hr INTRAVENOUS CONTINUOUS potassium chloride iv piggyback 20 mEq in sterile water 100 mL 20 mEq INTRAVENOUS PRN magnesium sulfate in water 2 g in sterile water 50 ml 2 g INTRAVENOUS PRN(NO DISPENSE) NaCl 0.9% iv infusion 50 mL/hr INTRAVENOUS CONTINUOUS albumin (5%) 12.5 g infusion 12.5 g INTRAVENOUS PRN albuterol 2.5 mg /3 mL (0.083 %) 2.5 mg (PROVENTIL) 2.5 mg INHALATION q 2 H PRN EPINEPHrine 4 mg in NaCl 0.9% 250 mL 0.5-10 mcg/min INTRAVENOUS CONTINUOUS niCARdipine 40 mg in NaCl 0.9% 200 mL infusion (CARDENE) 5- 10 mg/hr INTRAVENOUS CONTINUOUS calcium chloride 1 g in D5W 100 mL 1 g INTRAVENOUS PRN(NO DISPENSE) oxyCODONE-acetaminophen 5-325 mg 1-2 tablet (PERCOCET) 1-2 tablet ORAL q 4 H PRN morphine 2-4 mg injection 2-4 mg INTRAVENOUS q 1 H PRN pantoprazole 40 mg injection (PROTONIX) 40 mg INTRAVENOUS DAILY (6 AM) ondansetron (PF) 4 mg injection (ZOFRAN) 4 mg INTRAVENOUS q 6 H PRN ceFAZolin iv piggyback 2 g in D5W (iso-osmotic) 100 mL (ANCEF) 2 g INTRAVENOUS q 6 HR propofol infusion (DIPRIVAN) 5-50 mcg/kg/min INTRAVENOUS CONTINUOUS ipratropium-albuterol 3 mL nebulizer solution (DUONEB) 3 mL INHALATION q 4 H budesonide 0.5 mg/2 mL 0.5 mg (PULMICORT) 0.5 mg INHALATION BID PHENYLephrine 80 mg in D5W 250 mL (NEOSYNEPHRINE) 10-100 mcg/min INTRAVENOUS CONTINUOUS atorvastatin 40 mg tab(s) (LIPITOR) 40 mg ORAL AT BEDTIME 0.9% NaCl 3-5 mL 3-5 mL INTRAVENOUS q 12 H Lines, Drains, and Airways Line Peripheral 02/07/18 1600 Admission to Hospital Short Right Antecubital 2 days Peripheral 02/08/18 0100 Short Right Arm 20 Gauge 2 days Peripheral 02/08/18 0700 Short Left Forearm 2 days Arterial Line 02/09/18 0830 Arterial Line Left Radial 1 day Central Line Double Lumen 02/09/18 0845 Non-tunneled Right Leg 1 day Peripheral 02/09/18 0820 Left Forearm 16 Gauge 1 day Drain Chest Tube 02/09/18 1200 Assessment Midline Anterior Mediastinal Tube #2 1 day Chest Tube 02/09/18 1200 Left Anterior Pleural Tube #1 1 day GI Feed/Drain 02/09/18 0800 Oral Gastric Midline 1 day Indwelling Urinary Catheter 02/09/18 0838 Temperature Monitoring 16 Fr 1 day Airway Airway Endotracheal Tube 02/09/18 0800 1 day PHYSICAL EXAM PERFORMED: HEENT: Oral Mucosa: Moist mucous membranes Feeding Tube: Yes. Orogastric tube Eyes: PERRLA Neck: Unremarkable; No adenopathy or JVD Cardiovascular: Regular rhythm Respiratory: Short coarse expiratory wheezes bilaterally. Sl better air movement compared to 02/09 Abdomen: Soft, Nontender and Positive bowel sounds Extremities: Edema- No Peripheral Pulses- Present all extremities Capillary Refill- less than 3 seconds Skin: Abnormalities- Multiple tattoos Neurologic: Sedated Respiratory/Nursing Documentation: O2 Therapy: Ventilator (02/10/18 1139) Invasive Ventilator Mode: Pressure Regulated Volume Control (02/10/18 1138) Set Ventilator Respiratory Rate (BPM): 16 (02/10/181138) Total Respiratory Rate (BPM): 24 (02/10/181138) Tidal Volume Set (mL): 550 (02/10/181138) Exhaled Tidal Volume (mL): 600 (02/10/181138) Minute Volume (L): 10.5 (02/10/181138) Peak Inspiratory Pressure (cm H2O): 13 (02/10/181138) PEEP/CPAP (cm H2O): 5 (02/10/181138) HEMODYNAMIC DATA: NUTRITION: Enteral Feeds: No NPO DATA: Diagnostic tests reviewed for today's visit: Most recent labs and imaging results. LABS: Recent Labs 02/10/18 0545 02/09/18 1405 02/08/18 1210 TROPI -- -- -- -- 39.700* WBC 14.31* -- 22.43* < > -- RBC 3.38* -- 3.96* < > -- HB 10.9* -- 13.1* < > -- HCT 32.6* -- 38.7* < > -- MCV 96.4* -- 97.7* < > -- PLT 112* -- 157 < > -- GLUC 95 < > 161* < > -- BUN 14 < > 12 < > -- CREAT 0.93 < > 0.96 < > -- NA 144 < > 142 < > -- K 3.9 < > 4.3 < > -- CHLOR 113* < > 113* < > -- CO2 25 < > 25 < > -- TPROT -- -- 5.2* -- -- ALB -- -- 2.5* -- -- CA 7.7* < > 7.9* < > -- ALKPHOS -- -- 64 -- -- TBILI -- -- 0.6 -- -- AST -- -- 88* -- -- ALT -- -- 30 -- -- PTSEC 12.6* -- 12.6* -- -- APTT -- -- 23.0 < > -- INR 1.23 -- 1.24 -- -- MG 2.3 < > 1.8 -- -- < > = values in this interval not displayed. ABG: Recent Labs 02/10/18 0819 02/10/18 0547 02/09/182014 PH 7.392 7.385 7.267* PO2 79.1* 66.3* 85.4 PCO2 39.3 39.4 48.2* CULTURES: Other: No MRSA Final- no growth on 02/08 nasal swab CXR FINDINGS: 02/10: The lungs are grossly clear. ? IMPRESSION: ? Stable postoperative changes. ?Note is made that the Mccaskill- Daphne catheter appears coiled in the pulmonary outflow tract. Assessment/Plan PROBLEMS: ACTIVE PROBLEM LIST Inguinal Hernia Without Mention of Obstruction Or Gangrene, Unilateral Or Unspecified, (Not Specified As Recurrent) Nstemi (Non-St Elevated Myocardial Infarction) (Hcc) Nsvt (Nonsustained Ventricular Tachycardia) (Hcc) Nicotine use disorder, F17.2 1. Anticipated post-op respiratory insufficiency 2. COPD exacerbation with bronchospasm. 3. Tobacco use disorder 4. Mild anemia--Hgb 10.9gm 5. Mild thrombocytopenia 6. Post-op delirium--quiescent with Propofol. 7. Leukocytosis improving. PLANS FOR TODAY: CRITICAL CARE PLAN: Bronchodilators , Vasopressors, Tube feedings, Ventilatory support , Weaning , Replace electrolytes and inhaled steroids. Increase budesonide to 1mg dosing. Not ready for extubation due to bronchopasm. Start tube feeds. Will discuss with Dr. Marin about systemic steroids for COPD This patient has a high probability of sudden, clinically significant deterioration, which requires the highest level of physician preparedness to intervene urgently. I managed/supervised life or organ supporting interventions that required frequent physician assessment. I devoted my full attention to the direct care of this patient for the amount of time indicated below. Time I spent with family or surrogate(s) is included only if the patient was incapable of providing the necessary information or participating in medical decision making. Time devoted to teaching is not included. Patient Updated Yes Family Updated Yes Discussed with Staff Yes Time spent providing critical care services: 35 minutes excluding procedures. SIGNATURE: Elkin Zuleta MD PATIENT NAME: Jeffrey Cullen DATE: February 10, 2018 TIME: 12:58 PM PAGER/CONTACT #: [phone] Clementine Owen APRN.[employer]ER 02/10/2018 4:21 PM Signed CARDIOTHORACIC SURGERY POSTOP PROGRESS NOTE SERVICE DATE: 02/10/2018 SERVICE TIME: 13:00 Subjective S/P SURGERY: Procedure(s) (LRB): BYPASS GRAFT ARTERY CORONARY ON-PUMP THREE CORONARY VENOUS GRAFTS (N/A) DATE OF SURGERY: 02/09/2018 POSTOP DAY #1 LOS: 3 INTERVAL EVENTS / PERTINENT ROS: Remains intubated. Agitated at times per RN. On Epi and Ollie. Objective Admission Weight: 104.3 kg (229 lb 15 oz) BP 96/64 Pulse 78 Temp 37.6 ?C (99.7 ?F) Resp 22 Ht 180.3 cm (5' 10.98) Wt 108.3 kg (238 lb 12.1 oz) SpO2 96% BMI 33.32 kg/m2 Body surface area is 2.33 meters squared. Min/Max/Average Temperature AND Blood Pressure: Temp (24hrs), Av.4 ?C (99.3 ?F), Min:37.1 ?C (98.8 ?F), Max:37.7 ?C (99.9 ?F) Systolic (24hrs), Av , Min:96 , Max:130 Diastolic (24hrs), Av, Min:56, Max:77 Intake/Output Summary (Last 24 hours) at 02/10/18 1610 Last data filed at 02/10/18 1600 Gross per 24 hour Intake 2271 ml Output 2922 ml Net -651 ml Current Facility-Administered Medications: - Chlorhexidine Gluconate 0.12 % 15 mL (PERIDEX) - budesonide 0.5 mg/2 mL 1 mg (PULMICORT) - acetaminophen 650 mg tab(s) (TYLENOL) - aspirin 81 mg chewable tab(s) - insulin regular iv infusion 250 units in NaCl 0.9% 250 mL - AK CARD SURG NOMOGRAM - insulin regular human iv bolus 10 Units - dextrose 50% in water 25 mL syringe - potassium chloride iv piggyback 20 mEq in sterile water 100 mL - magnesium sulfate in water 2 g in sterile water 50 ml - NaCl 0.9% iv infusion - albuterol 2.5 mg /3 mL (0.083 %) 2.5 mg (PROVENTIL) - EPINEPHrine 4 mg in NaCl 0.9% 250 mL - niCARdipine 40 mg in NaCl 0.9% 200 mL infusion (CARDENE) - calcium chloride 1 g in D5W 100 mL - oxyCODONE-acetaminophen 5-325 mg 1-2 tablet (PERCOCET) - morphine 2-4 mg injection - pantoprazole 40 mg injection (PROTONIX) - ondansetron (PF) 4 mg injection (ZOFRAN) - ceFAZolin iv piggyback 2 g in D5W (iso-osmotic) 100 mL (ANCEF) - propofol infusion (DIPRIVAN) - ipratropium-albuterol 3 mL nebulizer solution (DUONEB) - PHENYLephrine 80 mg in D5W 250 mL (NEOSYNEPHRINE) - atorvastatin 40 mg tab(s) (LIPITOR) - 0.9% NaCl 3-5 mL TELEMETRY: normal sinus rhythm PHYSICAL EXAM: General Appearance: well developed, no distress and sedated on vent Skin: Midsternal incision dry AND intact. and SVG incisions dry AND intact. Lungs: decreased breath sounds and respiratory effort: normal Heart: regular rhythm, S1, S2 normal and pacing wires present Abdomen: soft and bowel sounds present Genitourinary: High intact, urine color is clear yellow Extremities: normal exam of the extremities Chest tubes intact to -20 cm suction with serosanguinous output Lines, Drains, and Airways Line Peripheral 02/07/18 1600 Admission to Hospital Short Right Antecubital 3 days Peripheral 02/08/18 0100 Short Right Arm 20 Gauge 2 days Peripheral 02/08/18 0700 Short Left Forearm 2 days Arterial Line 02/09/18 0830 Arterial Line Left Radial 1 day Central Line Double Lumen 02/09/18 0845 Non-tunneled Right Leg 1 day Peripheral 02/09/18 0820 Left Forearm 16 Gauge 1 day Drain Chest Tube 02/09/18 1200 Assessment Midline Anterior Mediastinal Tube #2 1 day Chest Tube 02/09/18 1200 Left Anterior Pleural Tube #1 1 day GI Feed/Drain 02/09/18 0800 Oral Gastric Midline 1 day Indwelling Urinary Catheter 02/09/18 0838 Temperature Monitoring 16 Fr 1 day Airway Airway Endotracheal Tube 02/09/18 0800 1 day DATA: Diagnostic tests reviewed for today's visit: Recent Labs 02/10/18 1455 02/10/18 0545 02/09/18201402/09/18 1405 02/09/18 1252 02/09/18 0407 02/09/18 0123 02/08/18 1730 02/08/18 0500 02/08/18 0105 02/07/18 2243 HBA1C -- -- -- -- -- -- -- -- -- -- -- -- -- -- 5.1 RBC -- 3.38* -- 3.96* -- -- 4.45* -- -- -- 4.50* -- 4.70 < > -- WBC -- 14.31* -- 22.43* -- -- 8.26 -- -- -- 11.59* -- 10.39* < > -- HB -- 10.9* -- 13.1* -- -- 14.3 -- -- -- 14.5 -- 15.1 < > -- HCT -- 32.6* -- 38.7* 29* < > 42.8 -- -- -- 42.8 -- 43.4 < > -- PLT -- 112* -- 157 -- -- 187 -- -- -- 222 -- 202 < > -- INR -- 1.23 -- 1.24 -- -- -- -- -- -- -- -- 1.05 -- 1.10 APTT -- -- -- 23.0 -- -- -- 43.7* 25.8 < > -- -- 28.3 -- -- NA 143 144 143 142 144 < > 139 -- -- -- 137 < > -- -- -- K 4.0 3.9 3.9 4.3 4.0 < > 3.9 -- -- -- 4.2 < > -- -- -- CHLOR 113* 113* 113* 113* -- -- 108* -- -- -- 107 < > -- -- -- CO2 26 25 23 25 -- -- 26 -- -- -- 24 < > -- -- -- BUN 17 14 15 12 -- -- 12 -- -- -- 11 < > -- -- -- CREAT 1.01 0.93 1.01 0.96 -- -- 0.90 -- -- -- 0.85 < > -- -- -- GLUC 97 95 135* 161* -- -- 96 -- -- -- 109* < > -- -- -- ICAL 4.73 -- 4.64 -- -- -- -- -- -- -- -- -- -- -- -- CA 8.1* 7.7* 7.8* 7.9* -- -- 8.7 -- -- -- 8.5 < > -- -- -- MG 2.5 2.3 1.9 1.8 -- -- -- -- -- -- -- -- -- -- 2.3 P 2.6 -- -- -- -- -- -- -- -- -- 2.9 -- -- -- -- TPROT -- -- -- 5.2* -- -- -- -- -- -- -- -- -- -- -- TBILI -- -- -- 0.6 -- -- -- -- -- -- -- -- -- -- -- ALKPHOS -- -- -- 64 -- -- -- -- -- -- -- -- -- -- -- ALT -- -- -- 30 -- -- -- -- -- -- -- -- -- -- -- AST -- -- -- 88* -- -- -- -- -- -- -- -- -- -- -- ANION 8 10 11 8 -- -- 9 -- -- -- 10 < > -- -- -- MRSA -- -- -- -- -- -- -- -- -- -- -- -- No MRSA detected. -- -- < > = values in this interval not displayed. Recent Labs 02/10/18 0819 02/10/18 0547 02/09/18201402/09/18 1252 02/09/18 1217 02/09/18 1144 PH 7.392 7.385 7.267* < > 7.236* 7.372 7.415 PCO2 39.3 39.4 48.2* < > -- -- -- PO2 79.1* 66.3* 85.4 < > 93.0 168.0* 256.0* BE -1.3 -1.7 -5.5 < > -- -- -- HCO3 -- -- -- -- 21.1* 20.9* 23.7 < > = values in this interval not displayed. Assessment/Plan Acute NSTEMI s/p CABG x 3 -POD#1 -c/w ASA, statin. No BB until off pressors -Post thorax vest Anticipated acute pulmonary insufficiency s/p CTS 2/2 underlying COPD AND atelectasis -Vent management per pulmonary service Respiratory acidosis -Resolved Anticipated vasodilation s/p CTS -Weaning Epi and Ollie Leukocytosis, likely reactive -Trending down Hyperglycemia -Well controlled on Insulin gtt. Wean off. Chronic nicotine dependence -Needs reinforcement for cessation once extubated. Tests/Labs Ordered: 1. Chest X-ray 2. BMP 3. CBC SIGNATURE: Clementine Owen CNP PATIENT NAME: Jeffrey Cullen DATE: February 10, 2018 TIME: 4:10 PM PAGER/CONTACT #: [phone] Juan Cabral MD 02/10/2018 2:34 PM Signed Result Noted. Patient is currently hospitalized and managed by the in-patient team. MD Juan Martinez MD 02/10/2018 4:47 PM Signed Result Noted. Patient is currently hospitalized and managed by the in-patient team. MD Paulette Martinez, RN, RN 02/11/2018 6:37 AM Signed 0610 pt had a 3 second pause, followed by 1 perfused beat, followed by a 4 second pause (paper strip in chart). RN connected pacer wires and V-paced pt. Heart rhythm went back into RVR with intermittent paced beats. Dr. Parkinson notified. See new orders. Elkin Zuleta MD 02/11/2018 9:33 AM Signed MICU - PROGRESS NOTE SERVICE DATE: 02/11/2018 SERVICE TIME: 9:12 AM Admission Date: 02/07/2018 AGE: [age] year old LOS: 4 days Subjective REASON FOR ICU ADMISSION: Atelectasis, Atrial Fibrillation, Confusion and Delirium, COPD and Shock Sedated on 40mcg/kg/min Propofol Neosynephrine gtt remains on at 75mcg/min Amiodarone off due to pauses noted overnight. Now in AFib in 110's Currently sedated and not responsive to name or touch. Secretions thick and stern per ETT Objective VITAL SIGNS (last 24hrs min/max): Temp Av.4 ?C (99.4 ?F) Min: 37.1 ?C (98.8 ?F) Max: 37.7 ?C (99.9 ?F) Pulse Av.5 Min: 78 Max: 133 Arterial BP 1 Min: 95/55 Max: 115/66 Cuff BP Min: 88/68 Max: 103/67 Pain Score: Pt. 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 BP 88/68 Pulse 109 Temp (Src) 99.7 (Core) Resp 15 Ht 5' 10.984 (1.80m) Wt 242 lb 11.6 oz (110.1kg) SpO2 97% BMI 33.87 kg/(m2). Temp (24hrs), Av.4 ?C (99.4 ?F), Min:37.1 ?C (98.8 ?F), Max:37.7 ?C (99.9 ?F) NET FLUID BALANCE Intake/Output Summary (Last 24 hours) at 02/11/18 0912 Last data filed at 02/11/18 0900 Gross per 24 hour Intake 1934 ml Output 1348 ml Net 586 ml MEDICATIONS Current Facility-Administered Medications: Chlorhexidine Gluconate 0.12 % 15 mL (PERIDEX) 15 mL ORAL q 12 H budesonide 0.5 mg/2 mL 1 mg (PULMICORT) 1 mg INHALATION BID amiodarone 360 mg in D5W 200 mL (NEXTERONE) 0.5-1 mg/min INTRAVENOUS CONTINUOUS acetaminophen 650 mg tab(s) (TYLENOL) 650 mg ORAL q 6 H PRN aspirin 81 mg chewable tab(s) 81 mg ORAL DAILY insulin regular iv infusion 250 units in NaCl 0.9% 250 mL - AK CARD SURG NOMOGRAM 0-12 Units/hr INTRAVENOUS CONTINUOUS insulin regular human iv bolus 10 Units 10 Units INTRAVENOUS PRN dextrose 50% in water 25 mL syringe 12.5 g INTRAVENOUS PRN potassium chloride iv piggyback 20 mEq in sterile water 100 mL 20 mEq INTRAVENOUS PRN magnesium sulfate in water 2 g in sterile water 50 ml 2 g INTRAVENOUS PRN(NO DISPENSE) NaCl 0.9% iv infusion 50 mL/hr INTRAVENOUS CONTINUOUS albuterol 2.5 mg /3 mL (0.083 %) 2.5 mg (PROVENTIL) 2.5 mg INHALATION q 2 H PRN EPINEPHrine 4 mg in NaCl 0.9% 250 mL 0.5-10 mcg/min INTRAVENOUS CONTINUOUS niCARdipine 40 mg in NaCl 0.9% 200 mL infusion (CARDENE) 5- 10 mg/hr INTRAVENOUS CONTINUOUS calcium chloride 1 g in D5W 100 mL 1 g INTRAVENOUS PRN(NO DISPENSE) oxyCODONE-acetaminophen 5-325 mg 1-2 tablet (PERCOCET) 1-2 tablet ORAL q 4 H PRN morphine 2-4 mg injection 2-4 mg INTRAVENOUS q 1 H PRN pantoprazole 40 mg injection (PROTONIX) 40 mg INTRAVENOUS DAILY (6 AM) ondansetron (PF) 4 mg injection (ZOFRAN) 4 mg INTRAVENOUS q 6 H PRN propofol infusion (DIPRIVAN) 5-50 mcg/kg/min INTRAVENOUS CONTINUOUS ipratropium-albuterol 3 mL nebulizer solution (DUONEB) 3 mL INHALATION q 4 H PHENYLephrine 80 mg in D5W 250 mL (NEOSYNEPHRINE) 10-100 mcg/min INTRAVENOUS CONTINUOUS atorvastatin 40 mg tab(s) (LIPITOR) 40 mg ORAL AT BEDTIME 0.9% NaCl 3-5 mL 3-5 mL INTRAVENOUS q 12 H Lines, Drains, and Airways Line Peripheral 02/07/18 1600 Admission to Hospital Short Right Antecubital 3 days Peripheral 02/08/18 0100 Short Right Arm 20 Gauge 3 days Peripheral 02/08/18 0700 Short Left Forearm 3 days Arterial Line 02/09/18 0830 Arterial Line Left Radial 2 days Central Line Double Lumen 02/09/18 0845 Non-tunneled Right Leg 2 days Peripheral 02/09/18 0820 Left Forearm 16 Gauge 2 days Drain GI Feed/Drain 02/09/18 0800 Oral Gastric Midline 2 days Indwelling Urinary Catheter 02/09/18 0838 Temperature Monitoring 16 Fr 2 days Chest Tube 02/09/18 1200 Assessment Midline Anterior Mediastinal Tube #2 1 day Chest Tube 02/09/18 1200 Left Anterior Pleural Tube #1 1 day Airway Airway Endotracheal Tube 02/09/18 0800 2 days PHYSICAL EXAM PERFORMED: HEENT: Oral Mucosa: Moist mucous membranes Feeding Tube: with bilious drainage of roughly 400ml Eyes: PERRLA Neck: Unremarkable; No adenopathy or JVD Cardiovascular: Irregular rhythm and tachycardic--AFib on monitor Respiratory: Coarse expiratory wheezes bilaterally. Coarse inspiratory BSs on left side. PRVC-16 Vt-550 P--5 FIO2--40% SaO2 97% Ve-13l/min. Abdomen: Soft, Nontender and Positive bowel sounds Extremities: Edema- No Peripheral Pulses- Present all extremities Capillary Refill- less than 3 seconds Skin: Abnormalities- No Neurologic: Sedated Respiratory/Nursing Documentation: O2 Therapy: Ventilator (02/11/18827) Invasive Ventilator Mode: Pressure Regulated Volume Control (02/11/18827) Set Ventilator Respiratory Rate (BPM): 16 (02/11/18827) Total Respiratory Rate (BPM): 24 (02/11/18827) Tidal Volume Set (mL): 550 (02/11/18827) Exhaled Tidal Volume (mL): 768 (02/11/18401) Minute Volume (L): 10 (02/11/18827) Peak Inspiratory Pressure (cm H2O): 10 (02/11/18827) PEEP/CPAP (cm H2O): 5 (02/11/18827) HEMODYNAMIC DATA: NUTRITION: Enteral Feeds: No NPO DATA: Diagnostic tests reviewed for today's visit: Most recent labs and imaging results. LABS: Recent Labs 02/11/18 0420 02/10/18 0545 02/09/18 1405 02/08/18 1210 TROPI -- -- -- -- -- -- 39.700* WBC 15.13* < > 14.31* -- 22.43* < > -- RBC 3.37* < > 3.38* -- 3.96* < > -- HB 10.9* < > 10.9* -- 13.1* < > -- HCT 33.3* < > 32.6* -- 38.7* < > -- MCV 98.8* < > 96.4* -- 97.7* < > -- PLT 105* < > 112* -- 157 < > -- GLUC 104* < > 95 < > 161* < > -- BUN 25* < > 14 < > 12 < > -- CREAT 1.34* < > 0.93 < > 0.96 < > -- NA 142 < > 144 < > 142 < > -- K 4.3 < > 3.9 < > 4.3 < > -- CHLOR 112* < > 113* < > 113* < > -- CO2 25 < > 25 < > 25 < > -- TPROT -- -- -- -- 5.2* -- -- ALB -- -- -- -- 2.5* -- -- CA 8.3* < > 7.7* < > 7.9* < > -- ALKPHOS -- -- -- -- 64 -- -- TBILI -- -- -- -- 0.6 -- -- AST -- -- -- -- 88* -- -- ALT -- -- -- -- 30 -- -- PTSEC -- -- 12.6* -- 12.6* < > -- APTT -- -- -- -- 23.0 < > -- INR -- -- 1.23 -- 1.24 < > -- MG 2.6 < > 2.3 < > 1.8 -- -- < > = values in this interval not displayed. ABG: Recent Labs 02/10/18 0819 02/10/18 0547 02/09/182014 PH 7.392 7.385 7.267* PO2 79.1* 66.3* 85.4 PCO2 39.3 39.4 48.2* CULTURES: Sputum: No growth to date and Few GNB on culture. 02/08 Nasal swab--NO MRSA CXR FINDINGS: New bilateral mid-lung infiltrates +/- left base/atelectasis. Assessment/Plan PROBLEMS: ACTIVE PROBLEM LIST Inguinal Hernia Without Mention of Obstruction Or Gangrene, Unilateral Or Unspecified, (Not Specified As Recurrent) Nstemi (Non-St Elevated Myocardial Infarction) ([facility]) Nsvt (Nonsustained Ventricular Tachycardia) ([facility]) Nicotine use disorder, F17.2 1. VDRF secondary to severe COPD with bronchospasm. Hypoxia improving. 2. ?Developing bilateral infiltrates vs atelectasis--low-grade fever and WBC up with purulent secretions. 3. Mild GRIFFIN 4. POD#2 CABG x 3 5. PAFib--Amiodarone off due to pauses 6. Mild anemia 7. Mild thrombocytopenia--105 PLANS FOR TODAY: CRITICAL CARE PLAN: Antibiotics , Bronchodilators , Tube feedings, Ventilatory support and Weaning Start empiric ATBx and await sputum culture results Try trickle tube feeds. Dietary to see. ?Lovenox or SQ Heparin Protonix continues Chest tubes per CT Surgery Mg level. This patient has a high probability of sudden, clinically significant deterioration, which requires the highest level of physician preparedness to intervene urgently. I managed/supervised life or organ supporting interventions that required frequent physician assessment. I devoted my full attention to the direct care of this patient for the amount of time indicated below. Time I spent with family or surrogate(s) is included only if the patient was incapable of providing the necessary information or participating in medical decision making. Time devoted to teaching is not included. Patient Updated Yes Family Updated Yes--discussed with sister at bedside. Discussed with Staff Yes Time spent providing critical care services: 35 minutes excluding procedures. SIGNATURE: Elkin Zuleta MD PATIENT NAME: Jeffrey Cullen DATE: February 11, 2018 TIME: 9:12 AM PAGER/CONTACT #: [phone] Dionicio Prieto RN, RN 02/11/2018 9:59 AM Signed Nursing Progress Note Patient Name: Jeffrey Cullen Patient Location: [place] [address] [address]* Sedation holiday attempted at 0920 and ended at 0950 d/t increased HR/RR. Patient unable to follow commands during holiday. Patient spontaneously moves all extremities/opens eyes. Phenylephrine gtt weaned off during holiday d/t increased BP. Propofol restarted at a lower dose and Phenylephrine remains on hold for now (Will restart as needed). This note was completed by: Dionicio Prieto, RAINA Almaguer, RD, LD, RD 02/11/2018 1:42 PM Signed NUTRITION THERAPY INITIAL ASSESSMENT SERVICE DATE: 02/11/2018 SERVICE TIME: 10:08 AM RECOMMENDED MALNUTRITION DIAGNOSIS: NO MALNUTRITION IDENTIFIED NUTRITION CARE PLAN: Problem, Etiology and Signs/Symptoms: Suboptimal oral intake related to respiratory status as evidenced by NPO and vent support Intervention: Impact Peptide at goal rate 57 ml/hr to provide 1368 ml product - 2052 kcal, 128.6 gm protein, 1053 ml free water Flush with 30 ml 6 times per day Adjust TF flush as IF fluids decreased Coordination of Care: Recommend swallow evaluation per Speech Language Pathologist Nursing Monitor and Evaluation: Goal: Meet >75% of estimated needs Monitor fluid/electrolyte balance Monitor labs, I/Os, vital signs, weight Monitor tolerance to tube feeding Discharge Nutrition Recommendations: To be determined Chart reviewed for consult Per HPI: 67 year old male patient with no known PMH other than long history of smoking ( 2packs a day for more than 30 years) Earlier 02/07/18 he was sitting and suddenly started having substernal chest pain, pain is intermittent with no radiation, he felt nauseas but no vomiting and no diaphoresis This pain kept coming so he went to the ER Underwent LHC on 02/08/18 showed need for CABG, underwent CABG on 02/09/18. Met with RN reviewed plan. No past medical history on file. PAST SURGICAL HISTORY Procedure Laterality Date - ORTHOPEDICS SURGERY HX - REPAIR ING HERNIA,5+Y/O,REDUCIBL 1990 Hernia repair, inguinal,left ACTIVE PROBLEM LIST Inguinal Hernia Without Mention of Obstruction Or Gangrene, Unilateral Or Unspecified, (Not Specified As Recurrent) Nstemi (Non-St Elevated Myocardial Infarction) ([facility]) Nsvt (Nonsustained Ventricular Tachycardia) ([facility]) Nicotine use disorder, F17.2 Present Diet Order: NPO Enteral Access: Oral gastric tube Nutritional Intake Prior to intubation: >75% estimated energy needs over the past 2 day(s), now intubated and NPO 2-3 days. GI symptoms: unable to determine at this time, intubated Abdominal Exam: abdomen is distended and bowel sounds are faint/hypoactive, per clinical documentation Is the patient having any pain that is interfering with oral/enteral intake? Unable to assess ANTHROPOMETRICS Height: 180.3 cm () Admission Weight: 104.3 kg (229 lb 15 oz) Current Weight: 110.1 kg (242 lb 11.6 oz) Body mass index is 33.87 kg/(m2). class 1 obesity Weight has increased by 5.8 kg over 4 days representing 5.3 % weight change. Last Wt 02/11/18 : 110.1 kg (242 lb 11.6 oz) 02/07/18 : 104.3 kg (230 lb) 12/04/07 : 100.2 kg (221 lb) [place] Body Weight: 78.2kg Resting Metabolic Rate: 1897 Estimated kilocalorie needs: 6381-0098 kilocalories determined by 25-30 kcal/kg ideal body weight Estimated protein needs: 102-133 grams determined by 1.3-1.7 g/kg [place] weight Estimated fluid needs: 4876-1172 milliliters based on 1 mL per kcal NUTRITION FOCUSED PHYSICAL EXAM: Subcutaneous Fat Loss Orbital No fat loss Triceps Unable to determine at this time, restrainted Mid-axillary at the iliac crest Unable to determine at this time Muscle Loss Locations: Temporalis No muscle loss Pectoralis No muscle loss Deltoids No muscle loss Interosseous No muscle loss Latissimus dorsi, trapezius Unable to determine at this time Quadriceps No muscle loss Gastrocnemius No muscle loss Potential micronutrient deficiency revealed in: Unable to determine at this time Edema: Yes Non-pitting Ascites: No Assessment of Functional Status: Unable to determine at this time Temperature Max in 24 hours: Temp (24hrs), Av.5 ?C (99.5 ?F), Min:37.1 ?C (98.8 ?F), Max:37.7 ?C (99.9 ?F) BP 88/68 Pulse (!) 131 Temp 37.6 ?C (99.7 ?F) Resp (!) 33 Ht 180.3 cm () Wt 110.1 kg (242 lb 11.6 oz) SpO2 92% BMI 33.87 kg/m2 Recent Labs 02/11/18 0420 02/09/18 1405 GLUC 104* < > 161* BUN 25* < > 12 CREAT 1.34* < > 0.96 NA 142 < > 142 K 4.3 < > 4.3 CHLOR 112* < > 113* CO2 25 < > 25 ALB -- -- 2.5* HB 10.9* < > 13.1* HCT 33.3* < > 38.7* WBC 15.13* < > 22.43* P 3.6 < > -- MG 2.6 < > 1.8 < > = values in this interval not displayed. Potential Signs of Inflammation: leukocytosis, hyperglycemia, hypoalbuminemia, hyperthermia and tachycardia ALLERGIES No Known Allergies Current Facility-Administered Medications: piperacillin-tazobactam 3.375 g in dextrose (iso-osmotic) 50 mL (ZOSYN) 3.375 g INTRAVENOUS q 6 H vancomycin iv piggyback 1 g in D5W 200 mL (VANCOCIN) 1 g INTRAVENOUS q 12 HR Chlorhexidine Gluconate 0.12 % 15 mL (PERIDEX) 15 mL ORAL q 12 H budesonide 0.5 mg/2 mL 1 mg (PULMICORT) 1 mg INHALATION BID amiodarone 360 mg in D5W 200 mL (NEXTERONE) 0.5-1 mg/min INTRAVENOUS CONTINUOUS acetaminophen 650 mg tab(s) (TYLENOL) 650 mg ORAL q 6 H PRN aspirin 81 mg chewable tab(s) 81 mg ORAL DAILY insulin regular iv infusion 250 units in NaCl 0.9% 250 mL - AK CARD SURG NOMOGRAM 0-12 Units/hr INTRAVENOUS CONTINUOUS insulin regular human iv bolus 10 Units 10 Units INTRAVENOUS PRN dextrose 50% in water 25 mL syringe 12.5 g INTRAVENOUS PRN potassium chloride iv piggyback 20 mEq in sterile water 100 mL 20 mEq INTRAVENOUS PRN magnesium sulfate in water 2 g in sterile water 50 ml 2 g INTRAVENOUS PRN(NO DISPENSE) NaCl 0.9% iv infusion 50 mL/hr INTRAVENOUS CONTINUOUS albuterol 2.5 mg /3 mL (0.083 %) 2.5 mg (PROVENTIL) 2.5 mg INHALATION q 2 H PRN EPINEPHrine 4 mg in NaCl 0.9% 250 mL 0.5-10 mcg/min INTRAVENOUS CONTINUOUS niCARdipine 40 mg in NaCl 0.9% 200 mL infusion (CARDENE) 5- 10 mg/hr INTRAVENOUS CONTINUOUS calcium chloride 1 g in D5W 100 mL 1 g INTRAVENOUS PRN(NO DISPENSE) oxyCODONE-acetaminophen 5-325 mg 1-2 tablet (PERCOCET) 1-2 tablet ORAL q 4 H PRN morphine 2-4 mg injection 2-4 mg INTRAVENOUS q 1 H PRN pantoprazole 40 mg injection (PROTONIX) 40 mg INTRAVENOUS DAILY (6 AM) ondansetron (PF) 4 mg injection (ZOFRAN) 4 mg INTRAVENOUS q 6 H PRN propofol infusion (DIPRIVAN) 5-50 mcg/kg/min INTRAVENOUS CONTINUOUS ipratropium-albuterol 3 mL nebulizer solution (DUONEB) 3 mL INHALATION q 4 H PHENYLephrine 80 mg in D5W 250 mL (NEOSYNEPHRINE) 10-100 mcg/min INTRAVENOUS CONTINUOUS atorvastatin 40 mg tab(s) (LIPITOR) 40 mg ORAL AT BEDTIME 0.9% NaCl 3-5 mL 3-5 mL INTRAVENOUS q 12 H Surgical Incision 02/09/18 Chest - Midsternal (Active) Dressing Status None: Open to Air 02/11/2018 8:00 AM Frequency of Dressing Change As Needed 02/11/2018 8:00 AM Incision Closures Topical Skin Adhesive 02/11/2018 8:00 AM Drainage Description None 02/11/2018 8:00 AM Drainage Amount None 02/11/2018 8:00 AM Edges Intact;Clear 02/11/2018 8:00 AM Hematoma No 02/11/2018 8:00 AM Number of days:2 Surgical Incision 02/09/18 Leg - Left (Active) Dressing Status None: Open to Air 02/11/2018 8:00 AM Frequency of Dressing Change As Needed 02/11/2018 8:00 AM Incision Closures Topical Skin Adhesive 02/11/2018 8:00 AM Drainage Description None 02/11/2018 8:00 AM Drainage Amount None 02/11/2018 8:00 AM Edges Clear;Intact 02/11/2018 8:00 AM Hematoma No 02/11/2018 8:00 AM Number of days:2 MNT Billing Type: Initial Assess/15 min 5 units SIGNATURE: Sandra Almaguer RD, LD PATIENT NAME: Jeffrey Cullen DATE: February 11, 2018 TIME: 10:08 AM PAGER: [phone] Evans Parkinson MD 02/11/2018 10:19 AM Signed CARDIOTHORACIC SURGERY POSTOP PROGRESS NOTE SERVICE DATE: 02/11/2018 SERVICE TIME: 10:15 AM Subjective S/P SURGERY: Procedure(s) (LRB): BYPASS GRAFT ARTERY CORONARY ON-PUMP THREE CORONARY VENOUS GRAFTS (N/A) DATE OF SURGERY: 02/09/2018 POSTOP DAY #2 LOS: 4 INTERVAL EVENTS / PERTINENT ROS: Hemodynamics stable. AF with RVR. Acute respiratory insufficiency; on vent; COPD Objective Admission Weight: 104.3 kg (229 lb 15 oz) BP 88/68 Pulse (!) 131 Temp 37.6 ?C (99.7 ?F) Resp (!) 33 Ht 180.3 cm (5' 10.98) Wt 110.1 kg (242 lb 11.6 oz) SpO2 92% BMI 33.87 kg/m2 Body surface area is 2.35 meters squared. Min/Max/Average Temperature AND Blood Pressure: Temp (24hrs), Av.5 ?C (99.5 ?F), Min:37.1 ?C (98.8 ?F), Max:37.7 ?C (99.9 ?F) Systolic (24hrs), Av , Min:88 , Max:99 Diastolic (24hrs), Av, Min:62, Max:68 Intake/Output Summary (Last 24 hours) at 02/11/18 1015 Last data filed at 02/11/18 0900 Gross per 24 hour Intake 1934 ml Output 1221 ml Net 713 ml TELEMETRY: atrial fibrillation PHYSICAL EXAM: On examination, the patient is sedated, breathing comfortably. Vital signs are: BP 137/77 Pulse 65 Temp 36.7 ?C (98.1 ?F) Resp 20 Ht 180.3 cm (5' 11) Wt 86.4 kg (190 lb 7.6 oz) SpO2 99% BMI 26.57 kg/m2. There is no JVD. Breath sounds are clear bilaterally. The sternal wound is intact and the sternum is stable. The cardiac rhythm is irregular, tachcardia. There are no rubs, gallops, or murmurs. The abdomen is soft and non-tender. There are no abdominal masses. The saphenous vein harvest sites are intact. There is no pretibial edema. There is no clubbing or cyanosis. The neuro exam is grossly non focal. Chest tube output is serosanguinous. Lines, Drains, and Airways Line Peripheral 02/07/18 1600 Admission to Hospital Short Right Antecubital 3 days Peripheral 02/08/18 0100 Short Right Arm 20 Gauge 3 days Peripheral 02/08/18 0700 Short Left Forearm 3 days Arterial Line 02/09/18 0830 Arterial Line Left Radial 2 days Central Line Double Lumen 02/09/18 0845 Non-tunneled Right Leg 2 days Peripheral 02/09/18 0820 Left Forearm 16 Gauge 2 days Drain GI Feed/Drain 02/09/18 0800 Oral Gastric Midline 2 days Indwelling Urinary Catheter 02/09/18 0838 Temperature Monitoring 16 Fr 2 days Chest Tube 02/09/18 1200 Assessment Midline Anterior Mediastinal Tube #2 1 day Chest Tube 02/09/18 1200 Left Anterior Pleural Tube #1 1 day Airway Airway Endotracheal Tube 02/09/18 0800 2 days DATA: Diagnostic tests reviewed for today's visit: CXR: post op changes; PA catheter coiled in PA Recent Labs 02/11/18 0420 02/10/18 1455 02/10/18 0545 02/09/18 2015 02/09/18 1405 02/09/18 0123 02/08/18 1730 RBC 3.37* 3.11* 3.38* -- 3.96* < > -- -- WBC 15.13* 14.16* 14.31* -- 22.43* < > -- -- HB 10.9* 10.1* 10.9* -- 13.1* < > -- -- HCT 33.3* 31.0* 32.6* -- 38.7* < > -- -- PLT 105* 107* 112* -- 157 < > -- -- INR -- -- 1.23 -- 1.24 -- -- -- APTT -- -- -- -- 23.0 -- 43.7* 25.8 NA 142 143 144 143 142 < > -- -- K 4.3 4.0 3.9 3.9 4.3 < > -- -- CHLOR 112* 113* 113* 113* 113* < > -- -- CO2 25 26 25 23 25 < > -- -- BUN 25* 17 14 15 12 < > -- -- CREAT 1.34* 1.01 0.93 1.01 0.96 < > -- -- GLUC 104* 97 95 135* 161* < > -- -- ICAL -- 4.73 -- 4.64 -- -- -- -- CA 8.3* 8.1* 7.7* 7.8* 7.9* < > -- -- MG 2.6 2.5 2.3 1.9 1.8 < > -- -- P 3.6 2.6 -- -- -- -- -- -- TPROT -- -- -- -- 5.2* -- -- -- TBILI -- -- -- -- 0.6 -- -- -- ALKPHOS -- -- -- -- 64 -- -- -- ALT -- -- -- -- 30 -- -- -- AST -- -- -- -- 88* -- -- -- ANION 9 8 10 11 8 < > -- -- < > = values in this interval not displayed. Recent Labs 02/10/18 0819 02/10/18 0547 02/09/18201402/09/18 1252 02/09/18 1217 02/09/18 1144 PH 7.392 7.385 7.267* < > 7.236* 7.372 7.415 PCO2 39.3 39.4 48.2* < > -- -- -- PO2 79.1* 66.3* 85.4 < > 93.0 168.0* 256.0* BE -1.3 -1.7 -5.5 < > -- -- -- HCO3 -- -- -- -- 21.1* 20.9* 23.7 < > = values in this interval not displayed. Assessment/Plan -POD#2 -c/w ASA, statin. DC ollie start beta krystle for AF, RVR -Post thorax vest remove PA catheter remove chest tubes ? Anticipated acute pulmonary insufficiency s/p CTS 2/2 underlying COPD AND atelectasis -Vent management per pulmonary service ? ? Tests/Labs Ordered: 1. Chest X-ray 2. BMP 3. CBC SIGNATURE: Evans Parkinson MD PATIENT NAME: Jeffrey Cullen DATE: February 11, 2018 TIME: 10:15 AM PAGER/CONTACT #: [phone] Juan Cabral MD 02/11/2018 12:37 PM Signed Result Noted. Patient is currently hospitalized and managed by the in-patient team. MD Paulette Martinez, RN, RN 02/12/2018 12:45 AM Signed RN attempted sedation vacation. Prior to pt arousing enough to follow directions RR increased >40, HR increased, pt was trying to sit up in bed, and pt started bucking the vent. Pt had non-purposeful movement in all 4 ext but did not follow commands. Evans Parkinson MD 02/12/2018 10:53 AM Signed CARDIOTHORACIC SURGERY POSTOP PROGRESS NOTE SERVICE DATE: 02/12/2018 SERVICE TIME: 10:46 AM Subjective S/P SURGERY: Procedure(s) (LRB): BYPASS GRAFT ARTERY CORONARY ON-PUMP THREE CORONARY VENOUS GRAFTS (N/A) DATE OF SURGERY: 02/09/2018 POSTOP DAY #3 LOS: 5 INTERVAL EVENTS / PERTINENT ROS: Drips weaned off. PA cath out. Chest tubes out. Vent wean in progress. Objective Admission Weight: 104.3 kg (229 lb 15 oz) BP 116/67 Pulse 79 Temp 37.3 ?C (99.1 ?F) Resp 13 Ht 180.3 cm (5' 10.98) Wt 112 kg (246 lb 14.6 oz) SpO2 99% BMI 34.45 kg/m2 Body surface area is 2.37 meters squared. Min/Max/Average Temperature AND Blood Pressure: Temp (24hrs), Av.9 ?C (100.2 ?F), Min:37.1 ?C (98.8 ?F), Max:38.6 ?C (101.5 ?F) Systolic (24hrs), Av , Min:116 , Max:116 Diastolic (24hrs), Av, Min:67, Max:67 Intake/Output Summary (Last 24 hours) at 02/12/18 1046 Last data filed at 02/12/18 1000 Gross per 24 hour Intake 2772.2 ml Output 1049 ml Net 1723.2 ml TELEMETRY: normal sinus rhythm PHYSICAL EXAM: On examination, the patient is sedated, intubated and is breathing comfortably. Vital signs are: BP 137/77 Pulse 65 Temp 36.7 ?C (98.1 ?F) Resp 20 Ht 180.3 cm (5' 11) Wt 86.4 kg (190 lb 7.6 oz) SpO2 99% BMI 26.57 kg/m2. There is no JVD. Breath sounds are clear bilaterally. The sternal wound is intact and the sternum is stable. The cardiac rhythm is regular. There are no rubs, gallops, or murmurs. The carotid, subclavian, and radial pulses are 2+ and equal bilaterally. The abdomen is soft and non-tender. There are no abdominal masses. There is no hepatojugular reflux. The saphenous vein harvest sites are intact. There is no pretibial edema. There is no clubbing or cyanosis. The neuro exam is grossly non focal. Lines, Drains, and Airways Line Peripheral 02/07/18 1600 Admission to Hospital Short Right Antecubital 4 days Peripheral 02/08/18 0100 Short Right Arm 20 Gauge 4 days Peripheral 02/08/18 0700 Short Left Forearm 4 days Arterial Line 02/09/18 0830 Arterial Line Left Radial 3 days Central Line Double Lumen 02/09/18 0845 Non-tunneled Right Neck 3 days Peripheral 02/09/18 0820 Left Forearm 16 Gauge 3 days Drain GI Feed/Drain 02/09/18 0800 Oral Gastric Midline 3 days Indwelling Urinary Catheter 02/09/18 0838 Temperature Monitoring 16 Fr 3 days Airway Airway Endotracheal Tube 02/09/18 0800 3 days DATA: Diagnostic tests reviewed for today's visit: Chest X-RAY: post op changes Recent Labs 02/12/18 0501 02/11/18 0420 02/10/18 1455 02/10/18 0545 02/09/18201402/09/18 1405 RBC 3.16* 3.37* 3.11* 3.38* -- 3.96* WBC 11.10* 15.13* 14.16* 14.31* -- 22.43* HB 10.2* 10.9* 10.1* 10.9* -- 13.1* HCT 30.5* 33.3* 31.0* 32.6* -- 38.7* PLT 96* 105* 107* 112* -- 157 INR -- -- -- 1.23 -- 1.24 APTT -- -- -- -- -- 23.0 NA 141 142 143 144 143 142 K 3.9 4.3 4.0 3.9 3.9 4.3 CHLOR 113* 112* 113* 113* 113* 113* CO2 25 25 26 25 23 25 BUN 29* 25* 17 14 15 12 CREAT 1.19* 1.34* 1.01 0.93 1.01 0.96 GLUC 109* 104* 97 95 135* 161* ICAL -- -- 4.73 -- 4.64 -- CA 8.2* 8.3* 8.1* 7.7* 7.8* 7.9* MG -- 2.6 2.5 2.3 1.9 1.8 P -- 3.6 2.6 -- -- -- TPROT -- -- -- -- -- 5.2* TBILI -- -- -- -- -- 0.6 ALKPHOS -- -- -- -- -- 64 ALT -- -- -- -- -- 30 AST -- -- -- -- -- 88* ANION 7* 9 8 10 11 8 Recent Labs 02/10/18 0819 02/10/18 0547 02/09/18201402/09/18 1252 02/09/18 1217 02/09/18 1144 PH 7.392 7.385 7.267* < > 7.236* 7.372 7.415 PCO2 39.3 39.4 48.2* < > -- -- -- PO2 79.1* 66.3* 85.4 < > 93.0 168.0* 256.0* BE -1.3 -1.7 -5.5 < > -- -- -- HCO3 -- -- -- -- 21.1* 20.9* 23.7 < > = values in this interval not displayed. Assessment/Plan Acute NSTEMI s/p CABG x 3 -POD#3 -c/w ASA, statin., beta krystle -Post thorax vest ? Anticipated acute pulmonary insufficiency s/p CTS 2/2 underlying COPD AND atelectasis -Vent management per pulmonary service ? Respiratory acidosis -Resolved ? ? Tests/Labs Ordered: 1. None SIGNATURE: Evans Parkinson MD PATIENT NAME: Jeffrey Cullen DATE: February 12, 2018 TIME: 10:46 AM PAGER/CONTACT #: [phone] Juan Cabral MD 02/12/2018 11:02 AM Signed Result Noted. Patient is currently hospitalized and managed by the in-patient team. MD Elkin Martinez MD 02/12/2018 3:50 PM Signed MICU - PROGRESS NOTE SERVICE DATE: 02/12/2018 SERVICE TIME: 3:22 PM Admission Date: 02/07/2018 AGE: [age] year old LOS: 5 days Subjective REASON FOR ICU ADMISSION: Atelectasis, Confusion and Delirium, COPD, Pneumonia and Sepsis Becomes very combative and restless when examined or spoken to even on 25mcg/kg/min Diprivan. Secretions copious and thick stern reported. Objective VITAL SIGNS (last 24hrs min/max): Tmax 101.5 Temp Av.6 ?C (99.7 ?F) Min: 37.1 ?C (98.8 ?F) Max: 38.4 ?C (101.1 ?F) Pulse Av.3 Min: 78 Max: 100 Arterial BP 1 Min: 96/50 Max: 154/73 Cuff No Data Recorded Pain Score: 0/10 Vital signs reviewed. BP 116/67 Pulse 81 Temp (Src) 99.5 (Core) Resp 16 Ht 5' 10.984 (1.80m) Wt 246 lb 14.6 oz (112.0kg) SpO2 97% BMI 34.45 kg/(m2). Temp (24hrs), Av.6 ?C (99.7 ?F), Min:37.1 ?C (98.8 ?F), Max:38.4 ?C (101.1 ?F) NET FLUID BALANCE Intake/Output Summary (Last 24 hours) at 02/12/18 1522 Last data filed at 02/12/18 1400 Gross per 24 hour Intake 2466 ml Output 1031 ml Net 1435 ml MEDICATIONS Current Facility-Administered Medications: piperacillin-tazobactam 3.375 g in dextrose (iso-osmotic) 50 mL (ZOSYN) 3.375 g INTRAVENOUS q 6 H vancomycin iv piggyback 1 g in D5W 200 mL (VANCOCIN) 1 g INTRAVENOUS q 12 HR metoprolol tartrate (short acting) 12.5 mg tab(s) (LOPRESSOR) 12.5 mg ORAL q 12 H pill splitter (patient-specific) 1 Each Miscell. (Med.Supl.;Non- Drugs) PRN enoxaparin 40 mg injection (LOVENOX) 40 mg SUBCUTANEOUS q 24 HR Chlorhexidine Gluconate 0.12 % 15 mL (PERIDEX) 15 mL ORAL q 12 H budesonide 0.5 mg/2 mL 1 mg (PULMICORT) 1 mg INHALATION BID amiodarone 360 mg in D5W 200 mL (NEXTERONE) 0.5-1 mg/min INTRAVENOUS CONTINUOUS acetaminophen 650 mg tab(s) (TYLENOL) 650 mg ORAL q 6 H PRN aspirin 81 mg chewable tab(s) 81 mg ORAL DAILY insulin regular iv infusion 250 units in NaCl 0.9% 250 mL - [place] CARD SURG NOMOGRAM 0-12 Units/hr INTRAVENOUS CONTINUOUS insulin regular human iv bolus 10 Units 10 Units INTRAVENOUS PRN dextrose 50% in water 25 mL syringe 12.5 g INTRAVENOUS PRN potassium chloride iv piggyback 20 mEq in sterile water 100 mL 20 mEq INTRAVENOUS PRN magnesium sulfate in water 2 g in sterile water 50 ml 2 g INTRAVENOUS PRN(NO DISPENSE) NaCl 0.9% iv infusion 50 mL/hr INTRAVENOUS CONTINUOUS albuterol 2.5 mg /3 mL (0.083 %) 2.5 mg (PROVENTIL) 2.5 mg INHALATION q 2 H PRN EPINEPHrine 4 mg in NaCl 0.9% 250 mL 0.5-10 mcg/min INTRAVENOUS CONTINUOUS niCARdipine 40 mg in NaCl 0.9% 200 mL infusion (CARDENE) 5- 10 mg/hr INTRAVENOUS CONTINUOUS calcium chloride 1 g in D5W 100 mL 1 g INTRAVENOUS PRN(NO DISPENSE) oxyCODONE-acetaminophen 5-325 mg 1-2 tablet (PERCOCET) 1-2 tablet ORAL q 4 H PRN morphine 2-4 mg injection 2-4 mg INTRAVENOUS q 1 H PRN pantoprazole 40 mg injection (PROTONIX) 40 mg INTRAVENOUS DAILY (6 AM) ondansetron (PF) 4 mg injection (ZOFRAN) 4 mg INTRAVENOUS q 6 H PRN propofol infusion (DIPRIVAN) 5-50 mcg/kg/min INTRAVENOUS CONTINUOUS ipratropium-albuterol 3 mL nebulizer solution (DUONEB) 3 mL INHALATION q 4 H PHENYLephrine 80 mg in D5W 250 mL (NEOSYNEPHRINE) 10-100 mcg/min INTRAVENOUS CONTINUOUS atorvastatin 40 mg tab(s) (LIPITOR) 40 mg ORAL AT BEDTIME 0.9% NaCl 3-5 mL 3-5 mL INTRAVENOUS q 12 H Lines, Drains, and Airways Line Peripheral 02/07/18 1600 Admission to Hospital Short Right Antecubital 4 days Peripheral 02/08/18 0100 Short Right Arm 20 Gauge 4 days Peripheral 02/08/18 0700 Short Left Forearm 4 days Arterial Line 02/09/18 0830 Arterial Line Left Radial 3 days Central Line Double Lumen 02/09/18 0845 Non-tunneled Right Neck 3 days Peripheral 02/09/18 0820 Left Forearm 16 Gauge 3 days Drain GI Feed/Drain 02/09/18 0800 Oral Gastric Midline 3 days Indwelling Urinary Catheter 02/09/18 0838 Temperature Monitoring 16 Fr 3 days Airway Airway Endotracheal Tube 02/09/18 0800 3 days PHYSICAL EXAM PERFORMED: HEENT: Oral Mucosa: Moist mucous membranes Feeding Tube: Yes. Orogastric tube Eyes: PERRLA Neck: Unremarkable; No adenopathy or JVD Cardiovascular: Regular rhythm Respiratory: Coarse +/- rhoncherous BSs with occasional expiratory wheezes. VENT: PRVC-16 Vt-550ml P-10 FiO2 40% SaO2 98% Ve-11-12l/min Abdomen: Soft, Nontender and Positive bowel sounds Extremities: Edema- No Peripheral Pulses- Present all extremities Capillary Refill- less than 3 seconds Skin: Abnormalities- No Neurologic: Agitated and Delirious Respiratory/Nursing Documentation: O2 Therapy: Ventilator (02/12/18 1500) Invasive Ventilator Mode: Pressure Regulated Volume Control (02/12/18 121) Set Ventilator Respiratory Rate (BPM): 16 (02/12/18 121) Total Respiratory Rate (BPM): 24 (02/12/181218) Tidal Volume Set (mL): 550 (02/12/18 121) Exhaled Tidal Volume (mL): 473 (02/12/18 0859) Minute Volume (L): 9.5 (02/12/18 121) Peak Inspiratory Pressure (cm H2O): 17 (03/18/18 1219) PEEP/CPAP (cm H2O): 10 (02/12/18 1219) HEMODYNAMIC DATA: NUTRITION: Enteral Feeds: No NPO DATA: Diagnostic tests reviewed for today's visit: Most recent labs and imaging results. LABS: Recent Labs 02/12/18 0501 02/11/18 0420 02/10/18 0545 WBC 11.10* 15.13* < > 14.31* RBC 3.16* 3.37* < > 3.38* HB 10.2* 10.9* < > 10.9* HCT 30.5* 33.3* < > 32.6* MCV 96.5* 98.8* < > 96.4* PLT 96* 105* < > 112* GLUC 109* 104* < > 95 BUN 29* 25* < > 14 CREAT 1.19* 1.34* < > 0.93 NA 141 142 < > 144 K 3.9 4.3 < > 3.9 CHLOR 113* 112* < > 113* CO2 25 25 < > 25 CA 8.2* 8.3* < > 7.7* PTSEC -- -- -- 12.6* INR -- -- -- 1.23 MG -- 2.6 < > 2.3 < > = values in this interval not displayed. ABG: Recent Labs 02/10/18 0819 02/10/18 0547 02/09/182014 PH 7.392 7.385 7.267* PO2 79.1* 66.3* 85.4 PCO2 39.3 39.4 48.2* CULTURES: Sputum: Positive- Klebsiella oxytoca on 02/11/18 CXR FINDINGS: 02/12: IMPRESSION: ? Interval removal of Mccaskill-Daphne catheter left-sided thoracostomy tube. ? No significant interval change regarding mixed interstitial and airspace opacities ?at the right mid and bilateral lower lung zones. ?Primary differential considerations include atelectasis, consolidation or edema. ? Mild cardiomegaly, unchanged. ? No significant interval change regarding endotracheal tube. ?Enteric tube overlies ?the proximal stomach, tip not included on examination. Assessment/Plan PROBLEMS: ACTIVE PROBLEM LIST Inguinal Hernia Without Mention of Obstruction Or Gangrene, Unilateral Or Unspecified, (Not Specified As Recurrent) Nstemi (Non-St Elevated Myocardial Infarction) ([facility]) Nsvt (Nonsustained Ventricular Tachycardia) ([facility]) Nicotine use disorder, F17.2 1. Hypoxic respiratory failure secondary to COPD and bilateral infiltrates right > left. 2. Predominant right-sided +/- LLL infiltrates with fever, leukocytosis, and purulent phlegm c/w HCAP. Appears to be Klebsiella oxytoca. 3. Severe COPD with bronchospasm. PEEP increased to 10cm on 02/11 due to autoPEEP occurring. 4. Delirium post-op. 5. S/P CABG x 3 Day #3 6. GRIFFIN-improving--Cr 1.19 7. Thrombocytopenia--109K 8. Post-op AFib and sinus pauses--resolved and off of Amiodarone currently. PLANS FOR TODAY: CRITICAL CARE PLAN: Antibiotics , Bronchodilators , Tube feedings, Ventilatory support , Weaning and pare ATBx based on final culture report. 1. Will start Precedex to try and wean Diprivan 2. Vent support and wean as tolerated. 3. Start tube feeds. This patient has a high probability of sudden, clinically significant deterioration, which requires the highest level of physician preparedness to intervene urgently. I managed/supervised life or organ supporting interventions that required frequent physician assessment. I devoted my full attention to the direct care of this patient for the amount of time indicated below. Time I spent with family or surrogate(s) is included only if the patient was incapable of providing the necessary information or participating in medical decision making. Time devoted to teaching is not included. Patient Updated Yes Family Updated Yes--discussed with sister on 02/11 at length. Discussed with Staff Yes Time spent providing critical care services: 35 minutes excluding procedures. SIGNATURE: Elkin Zuleta MD PATIENT NAME: Jeffrey Cullen DATE: February 12, 2018 TIME: 3:22 PM PAGER/CONTACT #: [phone] Juan Cabral MD 02/13/2018 6:42 AM Signed Result Noted. Patient is currently hospitalized and managed by the in-patient team. MD Juan Martinez MD 02/13/2018 9:07 AM Signed Result Noted. Patient is currently hospitalized and managed by the in-patient team. MD Ale Martinez, RN, RN 02/13/2018 9:33 AM Signed CARE MANAGEMENT PROGRESS NOTE SERVICE DATE: 02/13/2018 SERVICE TIME: 9:32 AM LOS: 6 days Needs Prior to Discharge: OT/PT Evaluation;Discharge Transportation;Accepting Facility Pt still intubated. Spoke with sister Trev (here from [place] till Tuesday--but considering extending if pt still on ventilator) Emotional support given. Will follow once extubated and will need evals for anticipated [facility] pending loc needs SIGNATURE: Ale Key RN PATIENT NAME: Jeffrey Cullen DATE: February 13, 2018 TIME: 9:32 AM PAGER/CONTACT #: [phone] Ursula Goyal PT 02/13/2018 9:53 AM Signed PHYSICAL THERAPY MISSED VISIT SERVICE DATE: 02/13/2018 SERVICE TIME: 0952 to 0952 ROOM: [place] [address] Attempted Evaluation. Patient not seen due to Not following commands (Intubated at this time). SIGNATURE: Ursula Goyal PT PATIENT NAME: Jeffrey Cullen DATE: February 13, 2018 TIME: 9:53 AM PAGER/CONTACT #: HEATHER Matos/Fara 02/13/2018 11:14 AM Signed OCCUPATIONAL THERAPY MISSED VISIT SERVICE DATE: 02/13/2018 SERVICE TIME: 1113 to 1114 ROOM: [place] [address] Attempted Evaluation. Patient not seen due to (intubated). Will continue to follow as able and appropriate. SIGNATURE: HEATHER Matos/Fara PATIENT NAME: Jeffrey Cullen DATE: February 13, 2018 TIME: 11:13 AM PAGER/CONTACT #: [phone] KEON Ricci 02/13/2018 3:11 PM Signed CARDIOTHORACIC SURGERY POSTOP PROGRESS NOTE SERVICE DATE: 02/13/2018 SERVICE TIME: 11:39 AM Subjective S/P SURGERY: Procedure(s) (LRB): BYPASS GRAFT ARTERY CORONARY ON-PUMP THREE CORONARY VENOUS GRAFTS (N/A) DATE OF SURGERY: 02/09/2018 POSTOP DAY #4 LOS: 6 INTERVAL EVENTS / PERTINENT ROS: Patient still sedated and on vent. Pulmonary/critical care to adjust vent settings to FiO2 of 30 and PEEP of 5. Per orders in chart, it appears the patient went into Afib/RVR on Tuesday night, amiodarone therapy was initiated, then Per nurse, patient experienced brief episodes of asystole, amiodarone was discontinued. The last episode was Tuesday02/11/2018. Rate/rhythm seems to be controlled with BB therapy. Objective Admission Weight: 104.3 kg (229 lb 15 oz) BP 116/67 Pulse 75 Temp 36.5 ?C (97.7 ?F) Resp 21 Ht 180.3 cm (5' 10.98) Wt 112.6 kg (248 lb 3.8 oz) SpO2 93% BMI 34.64 kg/m2 Body surface area is 2.37 meters squared. Min/Max/Average Temperature AND Blood Pressure: Temp (24hrs), Av.4 ?C (99.3 ?F), Min:36.5 ?C (97.7 ?F), Max:37.8 ?C (100 ?F) No data recorded. No data recorded. Intake/Output Summary (Last 24 hours) at 02/13/18 1139 Last data filed at 02/13/18 1100 Gross per 24 hour Intake 2491 ml Output 1194 ml Net 1297 ml TELEMETRY: normal sinus rhythm PHYSICAL EXAM: General Appearance: well developed, obese and sedated and on vent Skin: No rash on chest, arms or legs. Warm, dry. Midsternal AND SVG incision dry AND intact, without redness, drainage or edema. Lungs: course breath sounds b/l Heart: regular rhythm and pacing wires present Abdomen: soft, mildly distended, no bowel sounds appreciated Neurologic/Psychiatric: sedated Extremities: edema: 1+ Lines, Drains, and Airways Line Peripheral 02/07/18 1600 Admission to Hospital Short Right Antecubital 5 days Peripheral 02/08/18 0100 Short Right Arm 20 Gauge 5 days Peripheral 02/08/18 0700 Short Left Forearm 5 days Arterial Line 02/09/18 0830 Arterial Line Left Radial 4 days Central Line Double Lumen 02/09/18 0845 Non-tunneled Right Neck 4 days Peripheral 02/09/18 0820 Left Forearm 16 Gauge 4 days Drain GI Feed/Drain 02/09/18 0800 Oral Gastric Midline 4 days Indwelling Urinary Catheter 02/09/18 0838 Temperature Monitoring 16 Fr 4 days Airway Airway Endotracheal Tube 02/09/18 0800 4 days DATA: Diagnostic tests reviewed for today's visit: Chest X-RAY: Improving pulmonary edema Recent Labs 02/13/18 0450 02/12/18 0501 02/11/18 0420 02/10/18 1455 RBC 3.09* 3.16* 3.37* 3.11* WBC 7.83 11.10* 15.13* 14.16* HB 10.0* 10.2* 10.9* 10.1* HCT 30.3* 30.5* 33.3* 31.0* PLT 105* 96* 105* 107* NA 140 141 142 143 K 3.7 3.9 4.3 4.0 CHLOR 110* 113* 112* 113* CO2 23 25 25 26 BUN 21* 29* 25* 17 CREAT 0.86 1.19* 1.34* 1.01 GLUC 107* 109* 104* 97 ICAL -- -- -- 4.73 CA 8.0* 8.2* 8.3* 8.1* MG -- -- 2.6 2.5 P -- -- 3.6 2.6 ANION 11 7* 9 8 Assessment/Plan Acute NSTEMI s/p CABG x 3 -POD#4 -c/w ASA, statin, increase BB to 12.5 q 8 -Post thorax vest -start bowel regimen -initiate plavix tomorrow or after epicardial wires removed -continue to mobilize ?? Anticipated acute pulmonary insufficiency s/p CTS 2/2 underlying COPD AND atelectasis -Vent management per pulmonary service Thrombocytopenia -Stable. Continue to monitor Volume Overload -20 IV lasix ?? Respiratory acidosis -Resolved Tests/Labs Ordered: 1. BMP 2. CBC SIGNATURE: Misti Stein PA-C PATIENT NAME: Jeffrey Cullen DATE: February 13, 2018 TIME: 11:39 AM PAGER/CONTACT #:[phone] [phone] Juan Cabral MD 02/13/2018 11:53 AM Signed Result Noted. Patient is currently hospitalized and managed by the in-patient team. MD Keon Martinez MD 02/13/2018 1:33 PM Signed CRITICAL CARE PROGRESS NOTE SERVICE DATE: February 13, 2018 SERVICE TIME: 1:22 PM Admission Date: 02/07/2018 AGE: [age] year old LOS: 6 days REASON FOR ICU ADMISSION: ACTIVE PROBLEM LIST Inguinal Hernia Without Mention of Obstruction Or Gangrene, Unilateral Or Unspecified, (Not Specified As Recurrent) Nstemi (Non-St Elevated Myocardial Infarction) ([facility]) Nsvt (Nonsustained Ventricular Tachycardia) ([facility]) Nicotine use disorder, F17.2 Subjective OVERNIGHT EVENTS: Patient is resting comfortably in bed while sedated and intubated/on the ventilator without any current distress. Objective VITAL SIGNS (last 24hrs min/max): Temp Av.4 ?C (99.3 ?F) Min: 36.5 ?C (97.7 ?F) Max: 37.8 ?C (100 ?F) Pulse Av.3 Min: 69 Max: 97 Cuff No Data Recorded Pain Score: 0/10 24 hour Intake AND Output: Intake/Output Summary (Last 24 hours) at 02/13/18 1322 Last data filed at 02/13/18 1300 Gross per 24 hour Intake 2541 ml Output 2352 ml Net 189 ml PHYSICAL EXAM: RRR Few scattered crackles bilaterally without wheezing bilaterally anteriorly. Few bowel sounds, soft, nontender, nondistended. No pedal edema bilaterally. Poor turgor, but dry, intact skin. VENTILATOR INFORMATION: WEANING DATA: Settings: Invasive Ventilator Mode: Pressure Regulated Volume Control (02/13/18 0920) %FIO2: 30 Set Ventilator Respiratory Rate (BPM): 16 Tidal Volume Set (mL): 550 PEEP/CPAP (cm H2O): 10 Patient Data: Inspiratory:Expiratory Ratio: 1 : 1.1 Peak Inspiratory Pressure (cm H2O): 16 Weaning Data: Spontaneous Respiratory Rate (BPM): 0 INPATIENT MEDICATIONS: Current hospital medications: bisacodyl 10 mg suppository (DULCOLAX) 10 mg RECTAL DAILY PRN polyethylene glycol 3350 17 g packet (MIRALAX, GLYCOLAX) 17 g ORAL DAILY senna-docusate 8.6-50 mg 1 tablet (SENNA-S) 1 tablet ORAL BID piperacillin-tazobactam 3.375 g in dextrose (iso-osmotic) 50 mL (ZOSYN) 3.375 g INTRAVENOUS q 6 H metoprolol tartrate (short acting) 12.5 mg tab(s) (LOPRESSOR) 12.5 mg ORAL q 12 H pill splitter (patient-specific) 1 Each Miscell. (Med.Supl.;Non- Drugs) PRN enoxaparin 40 mg injection (LOVENOX) 40 mg SUBCUTANEOUS q 24 HR Chlorhexidine Gluconate 0.12 % 15 mL (PERIDEX) 15 mL ORAL q 12 H budesonide 0.5 mg/2 mL 1 mg (PULMICORT) 1 mg INHALATION BID amiodarone 360 mg in D5W 200 mL (NEXTERONE) 0.5-1 mg/min INTRAVENOUS CONTINUOUS acetaminophen 650 mg tab(s) (TYLENOL) 650 mg ORAL q 6 H PRN aspirin 81 mg chewable tab(s) 81 mg ORAL DAILY insulin regular iv infusion 250 units in NaCl 0.9% 250 mL - [place] CARD SURG NOMOGRAM 0-12 Units/hr INTRAVENOUS CONTINUOUS insulin regular human iv bolus 10 Units 10 Units INTRAVENOUS PRN dextrose 50% in water 25 mL syringe 12.5 g INTRAVENOUS PRN potassium chloride iv piggyback 20 mEq in sterile water 100 mL 20 mEq INTRAVENOUS PRN magnesium sulfate in water 2 g in sterile water 50 ml 2 g INTRAVENOUS PRN(NO DISPENSE) NaCl 0.9% iv infusion 50 mL/hr INTRAVENOUS CONTINUOUS albuterol 2.5 mg /3 mL (0.083 %) 2.5 mg (PROVENTIL) 2.5 mg INHALATION q 2 H PRN EPINEPHrine 4 mg in NaCl 0.9% 250 mL 0.5-10 mcg/min INTRAVENOUS CONTINUOUS niCARdipine 40 mg in NaCl 0.9% 200 mL infusion (CARDENE) 5- 10 mg/hr INTRAVENOUS CONTINUOUS calcium chloride 1 g in D5W 100 mL 1 g INTRAVENOUS PRN(NO DISPENSE) oxyCODONE-acetaminophen 5-325 mg 1-2 tablet (PERCOCET) 1-2 tablet ORAL q 4 H PRN morphine 2-4 mg injection 2-4 mg INTRAVENOUS q 1 H PRN pantoprazole 40 mg injection (PROTONIX) 40 mg INTRAVENOUS DAILY (6 AM) ondansetron (PF) 4 mg injection (ZOFRAN) 4 mg INTRAVENOUS q 6 H PRN propofol infusion (DIPRIVAN) 5-50 mcg/kg/min INTRAVENOUS CONTINUOUS ipratropium-albuterol 3 mL nebulizer solution (DUONEB) 3 mL INHALATION q 4 H PHENYLephrine 80 mg in D5W 250 mL (NEOSYNEPHRINE) 10-100 mcg/min INTRAVENOUS CONTINUOUS atorvastatin 40 mg tab(s) (LIPITOR) 40 mg ORAL AT BEDTIME 0.9% NaCl 3-5 mL 3-5 mL INTRAVENOUS q 12 H DATA: BLOOD GAS: Recent Labs 02/10/18 0819 02/10/18 0547 02/09/18 2015 02/09/18 1738 02/09/18 1400 02/09/18 1252 02/09/18 1217 02/09/18 1144 RESPHCO3 23.3 23.0 21.3* 20.8* 23.6 -- -- -- PH 7.392 7.385 7.267* 7.261* 7.193* 7.236* 7.372 7.415 PCO2 39.3 39.4 48.2* 47.4* 62.0* -- -- -- [id number] 96.1 93.6* 95.2 97.6 96.2 -- -- -- CBC: Recent Labs 02/13/18 0450 02/12/18 0501 02/11/18 0420 02/10/18 1455 02/10/18 0545 02/09/18 1405 02/09/18 1252 02/09/18 1217 02/09/18 0407 02/08/18 0500 WBC 7.83 11.10* 15.13* 14.16* 14.31* 22.43* -- -- -- 8.26 11.59* HB 10.0* 10.2* 10.9* 10.1* 10.9* 13.1* -- -- -- 14.3 14.5 HCT 30.3* 30.5* 33.3* 31.0* 32.6* 38.7* 29* 30* < > 42.8 42.8 PLT 105* 96* 105* 107* 112* 157 -- -- -- 187 222 MCV 98.1* 96.5* 98.8* 99.7* 96.4* 97.7* -- -- -- 96.2* 95.1 < > = values in this interval not displayed. COAG: Recent Labs 02/10/18 0545 02/09/18 1405 02/09/18 0123 02/08/18 1730 02/08/18 0700 02/08/18 0105 02/07/18 2243 02/07/18 1525 APTT -- 23.0 43.7* 25.8 28.5 28.3 -- -- INR 1.23 1.24 -- -- -- 1.05 1.10 1.10 BMP: Recent Labs 02/13/18 0450 02/12/18 0501 02/11/18 0420 02/10/18 1455 02/10/18 0545 02/09/18201402/09/18 1405 02/09/18 1252 02/09/18 0407 GLUC 107* 109* 104* 97 95 135* 161* -- -- 96 NA 140 141 142 143 144 143 142 144 < > 139 K 3.7 3.9 4.3 4.0 3.9 3.9 4.3 4.0 < > 3.9 CHLOR 110* 113* 112* 113* 113* 113* 113* -- -- 108* CO2 23 25 25 26 25 23 25 -- -- 26 ANION 11 7* 9 8 10 11 8 -- -- 9 BUN 21* 29* 25* 17 14 15 12 -- -- 12 CREAT 0.86 1.19* 1.34* 1.01 0.93 1.01 0.96 -- -- 0.90 < > = values in this interval not displayed. CHEM: Recent Labs 02/13/18 0450 02/12/18 0501 02/11/18 0420 02/10/18 1455 02/10/18 0545 02/09/18201402/09/18 1405 02/09/18 0407 02/07/18 2243 02/07/18 1525 ALB -- -- -- -- -- -- 2.5* -- -- -- 3.0* TPROT -- -- -- -- -- -- 5.2* -- -- -- 7.5 CA 8.0* 8.2* 8.3* 8.1* 7.7* 7.8* 7.9* 8.7 < > -- 8.8 MG -- -- 2.6 2.5 2.3 1.9 1.8 -- -- 2.3 -- ICAL -- -- -- 4.73 -- 4.64 -- -- -- -- -- < > = values in this interval not displayed. HEPATIC: Recent Labs 02/09/18 1405 03/13/18 1525 ALKPHOS 64 104 ALT 30 27 AST 88* 23 TBILI 0.6 0.4 LIPASE -- 158 URINALYSIS: Recent Labs 02/10/18 0819 02/10/18 0547 02/09/18201402/09/18 1738 02/09/18 1400 02/09/18 1252 02/09/18 1217 02/09/18 1144 PH 7.392 7.385 7.267* 7.261* 7.193* 7.236* 7.372 7.415 Assessment/Plan ASSESSMENT: ACTIVE PROBLEM LIST Inguinal Hernia Without Mention of Obstruction Or Gangrene, Unilateral Or Unspecified, (Not Specified As Recurrent) Nstemi (Non-St Elevated Myocardial Infarction) ([facility]) Nsvt (Nonsustained Ventricular Tachycardia) ([facility]) Nicotine use disorder, F17.2 S/P CABG, POD #4 HCAP Acute exacerbation of COPD PLAN: Continue full ventilator support. Continue bronchodilators. Finish antibiotic course and de-escalate by discontinuing vancomycin. Patient has no need for steroids at this time as the patient has no active bronchospasm currently. Will avoid steroids as much as possible given the post-operative state. Hemodynamically stable off pressors. Continue chest tube management as per Cardiovascular/Thoracic Surgery. Continue diabetes mellitus treatment as per the post-cardiac surgery protocol. This patient has a high probability of sudden, clinically significant deterioration, which requires the highest level of physician preparedness to intervene urgently. I managed/supervised life or organ supporting interventions that required frequent physician assessment. I devoted my full attention to the direct care of this patient for the amount of time indicated below. Time I spent with family or surrogate(s) is included only if the patient was incapable of providing the necessary information or participating in medical decision making. Time devoted to teaching and to any procedures I billed separately is not included. Patient/Family Updated: Patient's sister was updated regarding the goals of care, medical plan for the day, field service consultant recommendations, medical disposition and current medical condition/prognosis as and if clinically indicated. All questions and concerns were answered and addressed at this juncture. They were notified on February 13, 2018 at 10:15. The duration of the conversation was fifteen minutes. PROGNOSIS: Fair Code status: Full Code. Discussed with Registered RN. Critical Care Documentation: The patient has the following organ/system impairment(s): Respiratory failure (Acute, with Hypoxemia) and coronary artery disease Time spent providing critical care services: 40 minutes. SIGNATURE: Keon Chance MD [facility] PAGER:[phone] DATE of SERVICE: February 13, 2018 TIME of SERVICE: 1:22 PM Juan Cabral MD 02/13/2018 5:36 PM Signed Result Noted. Patient is currently hospitalized and managed by the in-patient team. MD Juan Martinez MD 02/13/2018 5:59 PM Signed Result Noted. Patient is currently hospitalized and managed by the in-patient team. MD Paulette Martinez MD 02/13/2018 8:23 PM Signed MICU - PROGRESS NOTE SERVICE DATE: 02/13/2018 SERVICE TIME: 7:46 PM Admission Date: 02/07/2018 AGE: [age] year old LOS: 6 days REASON FOR ICU ADMISSION: Acute respiratory failure, AFib RVR, HCAP Subjective HPI/Interval history: Called to bedside for AFib w/ RVR 140s- 170s; EKG confirmed. SBP>100, gave lopressor 5mg IV at bedside, RVR 110-120s Tachypnic on vent 27-21; + autopeep Was diuresed earlier today ~1.5L neg in about 4 hours Propofol on hold, on precedex Stat ABG No past medical history on file. PAST SURGICAL HISTORY Procedure Laterality Date - ORTHOPEDICS SURGERY HX - REPAIR ING HERNIA,5+Y/O,REDUCIBL 1990 Hernia repair, inguinal,left Social History Marital status: Single Spouse name: Years of education: Number of children: Social History Main Topics Smoking status: Current Every Day Smoker Packs/day: 2.00 Years: 25.00 Types: Cigarettes Alcohol use: No Drug use: No Sexual activity: Yes Partners with: Female Other Topics Concern Service No Blood Transfusions No Caffeine Concern No Occupational Exposure No Hobby Hazards No Sleep Concern No Stress Concern No Weight Concern No Special Diet No Back Care No Exercise No Bike Helmet No Seat Belt No Self-Exams No Objective VITAL SIGNS (last 24hrs min/max): Temp Av.3 ?C (99.1 ?F) Min: 36.5 ?C (97.7 ?F) Max: 37.8 ?C (100 ?F) Pulse Av.8 Min: 69 Max: 83 Arterial BP 1 Min: 85/37 Max: 142/63 Cuff No Data Recorded Pain Score: 0/10 Vital signs reviewed. BP 116/67 Pulse 79 Temp (Src) 99 (Core) Resp 23 Ht 5' 10.984 (1.80m) Wt 248 lb 3.8 oz (112.6kg) SpO2 94% BMI 34.64 kg/(m2). Temp (24hrs), Av.3 ?C (99.1 ?F), Min:36.5 ?C (97.7 ?F), Max:37.8 ?C (100 ?F) NET FLUID BALANCE Intake/Output Summary (Last 24 hours) at 02/13/18 1946 Last data filed at 02/13/18 1851 Gross per 24 hour Intake 3500.2 ml Output 2534 ml Net 966.2 ml MEDICATIONS Current Facility-Administered Medications: bisacodyl 10 mg suppository (DULCOLAX) 10 mg RECTAL DAILY PRN polyethylene glycol 3350 17 g packet (MIRALAX, GLYCOLAX) 17 g ORAL DAILY senna-docusate 8.6-50 mg 1 tablet (SENNA-S) 1 tablet ORAL BID metoprolol tartrate (short acting) 12.5 mg tab(s) (LOPRESSOR) 12.5 mg ORAL q 8 H metoclopramide HCl 10 mg injection (REGLAN) 10 mg INTRAVENOUS q 8 H PRN metoprolol 5 mg injection (LOPRESSOR) 5 mg INTRAVENOUS ONCE methylPREDNISolone sod succinate(PF) 60 mg injection (Solu- MEDROL) 60 mg INTRAVENOUS q 12 H piperacillin-tazobactam 3.375 g in dextrose (iso-osmotic) 50 mL (ZOSYN) 3.375 g INTRAVENOUS q 6 H pill splitter (patient-specific) 1 Each Miscell. (Med.Supl.;Non- Drugs) PRN enoxaparin 40 mg injection (LOVENOX) 40 mg SUBCUTANEOUS q 24 HR Chlorhexidine Gluconate 0.12 % 15 mL (PERIDEX) 15 mL ORAL q 12 H budesonide 0.5 mg/2 mL 1 mg (PULMICORT) 1 mg INHALATION BID amiodarone 360 mg in D5W 200 mL (NEXTERONE) 0.5-1 mg/min INTRAVENOUS CONTINUOUS acetaminophen 650 mg tab(s) (TYLENOL) 650 mg ORAL q 6 H PRN aspirin 81 mg chewable tab(s) 81 mg ORAL DAILY insulin regular iv infusion 250 units in NaCl 0.9% 250 mL - AK CARD SURG NOMOGRAM 0-12 Units/hr INTRAVENOUS CONTINUOUS insulin regular human iv bolus 10 Units 10 Units INTRAVENOUS PRN dextrose 50% in water 25 mL syringe 12.5 g INTRAVENOUS PRN potassium chloride iv piggyback 20 mEq in sterile water 100 mL 20 mEq INTRAVENOUS PRN magnesium sulfate in water 2 g in sterile water 50 ml 2 g INTRAVENOUS PRN(NO DISPENSE) NaCl 0.9% iv infusion 50 mL/hr INTRAVENOUS CONTINUOUS albuterol 2.5 mg /3 mL (0.083 %) 2.5 mg (PROVENTIL) 2.5 mg INHALATION q 2 H PRN EPINEPHrine 4 mg in NaCl 0.9% 250 mL 0.5-10 mcg/min INTRAVENOUS CONTINUOUS niCARdipine 40 mg in NaCl 0.9% 200 mL infusion (CARDENE) 5- 10 mg/hr INTRAVENOUS CONTINUOUS calcium chloride 1 g in D5W 100 mL 1 g INTRAVENOUS PRN(NO DISPENSE) oxyCODONE-acetaminophen 5-325 mg 1-2 tablet (PERCOCET) 1-2 tablet ORAL q 4 H PRN morphine 2-4 mg injection 2-4 mg INTRAVENOUS q 1 H PRN pantoprazole 40 mg injection (PROTONIX) 40 mg INTRAVENOUS DAILY (6 AM) ondansetron (PF) 4 mg injection (ZOFRAN) 4 mg INTRAVENOUS q 6 H PRN propofol infusion (DIPRIVAN) 5-50 mcg/kg/min INTRAVENOUS CONTINUOUS ipratropium-albuterol 3 mL nebulizer solution (DUONEB) 3 mL INHALATION q 4 H PHENYLephrine 80 mg in D5W 250 mL (NEOSYNEPHRINE) 10-100 mcg/min INTRAVENOUS CONTINUOUS atorvastatin 40 mg tab(s) (LIPITOR) 40 mg ORAL AT BEDTIME 0.9% NaCl 3-5 mL 3-5 mL INTRAVENOUS q 12 H Lines, Drains, and Airways Line Peripheral 02/07/18 1600 Admission to Hospital Short Right Antecubital 6 days Peripheral 02/08/18 0100 Short Right Arm 20 Gauge 5 days Peripheral 02/08/18 0700 Short Left Forearm 5 days Arterial Line 02/09/18 0830 Arterial Line Left Radial 4 days Central Line Double Lumen 02/09/18 0845 Non-tunneled Right Neck 4 days Peripheral 02/09/18 0820 Left Forearm 16 Gauge 4 days Drain GI Feed/Drain 02/09/18 0800 Oral Gastric Midline 4 days Indwelling Urinary Catheter 02/09/18 0838 Temperature Monitoring 16 Fr 4 days Airway Airway Endotracheal Tube 02/09/18 0800 4 days Respiratory/Nursing Documentation: O2 Therapy: Ventilator (02/13/18 1800) Invasive Ventilator Mode: Pressure Regulated Volume Control (02/13/18 1400) Set Ventilator Respiratory Rate (BPM): 15 (02/13/18 1400) Total Respiratory Rate (BPM): 25 (02/13/18 1400) Tidal Volume Set (mL): 550 (02/13/18 1400) Exhaled Tidal Volume (mL): 653 (02/13/18 0920) Minute Volume (L): 17.4 (02/13/18 1334) Peak Inspiratory Pressure (cm H2O): 12 (02/13/18 1400) PEEP/CPAP (cm H2O): 5 (PEEP wean) (02/13/18 1400) PHYSICAL EXAMINATION: Intubated, tachypnea noted on vent 30s Diffuse rhonchi; coarse breath sounds Ab distended but not rigid; +BS High w/ yellow clear urine No edema DATA: All data reviewed, including, but not limited to, data noted below. All diagnostic tests, including labs/specimens, EKGs, and imaging, were personally reviewed by me. CULTURES: Resp 02/11- Klebsiella oxytoca; MRSA neg CXR FINDINGS: 02/13/18 There has been slight improvement in pulmonary edema. ?There is no visible pneumothorax or focal consolidation. ?There is no pleural effusion. ?The ETT tip is 6 7 m above the nelda. ?The NGT tip is below the left hemidiaphragm. Heart is not significantly enlarged and there are sternotomy wires. ?There is a stable right internal jugular introducer sheath. ? OTHER DIAGNOSTICS/ IMAGING: Impression/Recommendations Critical Care Documentation: The patient has the following organ/system impairment(s): # Acute hypoxic/hypercapnic respiratory failure 2/2 HCAP and AECOPD; less likely pulmonary edema # Klebsiella Oxytoca HCAP # Presumed underlying COPD (long-standing smoking hx) now bronchospastic w/ suspected AECOPD also in s/o noted increased space despite adequate minute ventilation # Paroxysmal Afib, now w/ RVR - may be d/t electrolytes or overdiuresis # s/p CABG POD #4 # Ventricular pause in s/o amiodarone PLAN: - Cont vent support - Need to optimize sedation to limit autopeep; if does not tolerate precedex/propofol and morphine inadequate, may need ativan vs paralytic - Continue bronchodilators w/ duonebs q4; albuterol nebs q2; stat dose now - Start IV solumedrol; ok to cont pulmicort nebs - BG control, q2hr while on steroids - Gave lopressor 5mg IV once, may need another dose (suspect poor absorption of po lopressor w/ recent ileus). 5mg IV again if BP tolerates. Stat BMP/Mg. Give LR bolus now given potential intravascular depletion from earlier diuresis; less likely pulmonary edema- sats adequate on minimal FiO2/PEEP - Afib persists, may need to consider digoxin - Replete lytes - Accurate I/Os; maintain high - Cont Zosyn - ASA/Statin - Repeat ABG - Endocrine recs appreciated. - GI prophy - DVT prophy; will d/w daytime regarding therapeutic AC in view of Afib Prognosis: Guarded Code Status: Full Patient/Family Updated:None at bedside This patient has a high probability of sudden, clinically significant deterioration, which requires the highest level of physician preparedness to intervene urgently. I managed/supervised life or organ supporting interventions that required frequent physician assessment. I devoted my full attention to the direct care of this patient for the amount of time indicated below. Time I spent with family or surrogate(s) is included only if the patient was incapable of providing the necessary information or participating in medical decision making. Time devoted to teaching and to any procedures I billed separately is not included. Discussed with staff. Time spent providing critical care services: 35 minutes, excluding procedures. SIGNATURE: Paulette Aguilar MD [facility] PAGER:[phone] DATE of SERVICE: February 13, 2018 TIME of SERVICE: 7:46 PM Paulette Garibay, RN, RN 02/13/2018 8:25 PM Signed HR 150-182. Dr. Aguilar paged to bedside. See new orders. Beata Marin MD 02/14/2018 7:16 PM Addendum CARDIOTHORACIC SURGERY POSTOP PROGRESS NOTE SERVICE DATE: 02/14/2018 SERVICE TIME: 11:40 AM Subjective S/P SURGERY: Procedure(s) (LRB): BYPASS GRAFT ARTERY CORONARY ON-PUMP SINGLE CORONARY ARTERIAL GRAFT (N/A) BYPASS GRAFT ARTERY CORONARY ON-PUMP USING VENOUS GRAFT(S) AND ARTERIAL GRAFT(S); TWO VENOUS GRAFTS (N/A) ENDOSCOPIC HARVEST VEIN FOR CORONARY ARTERY BYPASS PROCEDURE (N/A) DATE OF SURGERY: 02/09/2018 POSTOP DAY #5 LOS: 7 INTERVAL EVENTS / PERTINENT ROS: Patient in bed, sedated and intubated. Continues to have excess residual from tube feeds. Episodes of AFIB/RVR over night, d/c cardene and increase BB to 25q8. Currently in NSR. Also appears he is developing thrush, nystatin has been ordered. Objective Admission Weight: 104.3 kg (229 lb 15 oz) BP 116/67 Pulse 72 Temp 37.6 ?C (99.7 ?F) Resp 14 Ht 180.3 cm (5' 10.98) Wt 111.2 kg (245 lb 2.4 oz) SpO2 94% BMI 34.21 kg/m2 Body surface area is 2.36 meters squared. Min/Max/Average Temperature AND Blood Pressure: Temp (24hrs), Av.3 ?C (99.1 ?F), Min:36.1 ?C (97 ?F), Max:37.7 ?C (99.9 ?F) No data recorded. No data recorded. Intake/Output Summary (Last 24 hours) at 02/14/18 1140 Last data filed at 02/14/18 1100 Gross per 24 hour Intake 3298.2 ml Output 2982 ml Net 316.2 ml TELEMETRY: NSR, but had episodes of AFIB/RVR over night PHYSICAL EXAM: General Appearance: well developed and sedated on ventilator Skin: No rash on chest, arms or legs. Warm, dry. Midsternal AND SVG incision dry AND intact, without redness, drainage or edema. Mouth/Pharynx: dentures and thrush developing Lungs: clear Heart: regular rhythm and S1, S2 normal Abdomen: soft, round and bowel sounds present Neurologic/Psychiatric: sedated Extremities: edema: 1+ Lines, Drains, and Airways Line Peripheral 02/07/18 1600 Admission to Hospital Short Right Antecubital 6 days Peripheral 02/08/18 0100 Short Right Arm 20 Gauge 6 days Peripheral 02/08/18 0700 Short Left Forearm 6 days Arterial Line 02/09/18 0830 Arterial Line Left Radial 5 days Central Line Double Lumen 02/09/18 0845 Non-tunneled Right Neck 5 days Peripheral 02/09/18 0820 Left Forearm 16 Gauge 5 days Drain GI Feed/Drain 02/09/18 0800 Oral Gastric Midline 5 days Indwelling Urinary Catheter 02/09/18 0838 Temperature Monitoring 16 Fr 5 days Airway Airway Endotracheal Tube 02/09/18 0800 5 days DATA: Recent Labs 02/14/18 0503 02/13/18 1945 02/13/18 0450 02/12/18 0501 RBC -- -- 3.09* 3.16* WBC -- -- 7.83 11.10* HB -- -- 10.0* 10.2* HCT -- -- 30.3* 30.5* PLT -- -- 105* 96* NA 140 140 140 141 K 4.7 3.5 3.7 3.9 CHLOR 109* 110* 110* 113* CO2 23 25 23 25 BUN 19* 20* 21* 29* CREAT 0.78 0.93 0.86 1.19* GLUC 143* 113* 107* 109* CA 8.2* 8.0* 8.0* 8.2* MG -- 2.2 -- -- ANION 13 9 11 7* Recent Labs 02/13/181944 PH 7.310* PCO2 51.4* PO2 79.6* BE -1.3 Assessment/Plan Acute NSTEMI s/p CABG x 3 -POD#5 -c/w ASA, statin, increase BB to 25 q 8 -d/c cardene -Post thorax vest -continue bowel regimen, reglan started by critical care -d/c maintenance fluids ?? Anticipated acute pulmonary insufficiency s/p CTS 2/2 underlying COPD AND atelectasis -Vent management per pulmonary service ? Thrombocytopenia -CBC tomorrow Pneumonia -cultures positive for Klebsiella oxytoca and Escherichia coli -antibiotic therapy per pulmonary Oral Thrush -nystatin ordered ? Volume Overload -20 IV lasix ?? Tests/Labs Ordered: 1. Chest X-ray 2. BMP 3. CBC SIGNATURE: Misti Stein PA-C PATIENT NAME: Jeffrey Cullen DATE: February 14, 2018 TIME: 11:40 AM PAGER/CONTACT #:[phone] [id number] Patient seen with PA and PUBLIC ADDRESS SERVICER. Careplan reviewed. P-as ordered. Previous Version Keon Chance MD 02/14/2018 12:37 PM Signed CRITICAL CARE PROGRESS NOTE SERVICE DATE: February 14, 2018 SERVICE TIME: 12:32 PM Admission Date: 02/07/2018 AGE: [age] year old LOS: 7 days REASON FOR ICU ADMISSION: ACTIVE PROBLEM LIST Inguinal Hernia Without Mention of Obstruction Or Gangrene, Unilateral Or Unspecified, (Not Specified As Recurrent) Nstemi (Non-St Elevated Myocardial Infarction) ([facility]) Nsvt (Nonsustained Ventricular Tachycardia) ([facility]) Nicotine use disorder, F17.2 Subjective OVERNIGHT EVENTS: Patient is resting comfortably in bed while sedated and intubated/on the ventilator without any current distress. Objective VITAL SIGNS (last 24hrs min/max): Temp Av.4 ?C (99.3 ?F) Min: 36.5 ?C (97.7 ?F) Max: 37.8 ?C (100 ?F) Pulse Av.3 Min: 69 Max: 97 Cuff No Data Recorded Pain Score: 0/10 24 hour Intake AND Output: Intake/Output Summary (Last 24 hours) at 02/14/18 1232 Last data filed at 02/14/18 1100 Gross per 24 hour Intake 3298.2 ml Output 2673 ml Net 625.2 ml PHYSICAL EXAM: RRR Minimal scattered crackles bilaterally without wheezing bilaterally anteriorly. Minimal bowel sounds, soft, nontender, distended. No pedal edema bilaterally. Poor turgor, but dry, intact skin. VENTILATOR INFORMATION: WEANING DATA: Settings: Invasive Ventilator Mode: Pressure Regulated Volume Control (02/14/18 1143) %FIO2: 40 Set Ventilator Respiratory Rate (BPM): 15 Tidal Volume Set (mL): 550 PEEP/CPAP (cm H2O): 5 Patient Data: Inspiratory:Expiratory Ratio: 1:3.4 Peak Inspiratory Pressure (cm H2O): 14 Plateau Pressure (cm H2O): 15 Weaning Data: Spontaneous Respiratory Rate (BPM): 0 INPATIENT MEDICATIONS: Current hospital medications: nystatin 5 mL oral liquid (MYCOSTATIN) 5 mL ORAL QID metoprolol tartrate (short acting) 25 mg tab(s) (LOPRESSOR) 25 mg ORAL q 8 H metoclopramide HCl 10 mg injection (REGLAN) 10 mg INTRAVENOUS q 6 H LORazepam 2 mg injection (ATIVAN) 2 mg INTRAVENOUS q 4 H PRN cefTRIAXone iv piggyback 1 g in dextrose (iso-osmotic) 50 mL (ROCEPHIN) 1 g INTRAVENOUS q 24 H dextrose 40 % 15 g 15 g ORAL PRN glucagon 1 mg injection (GLUCAGEN) 1 mg INTRAMUSCULAR PRN dextrose 50% in water 25 mL syringe 12.5 g INTRAVENOUS PRN insulin regular human injection (short acting) (NovoLIN R,HumuLIN R) SUBCUTANEOUS q 6 H bisacodyl 10 mg suppository (DULCOLAX) 10 mg RECTAL DAILY PRN polyethylene glycol 3350 17 g packet (MIRALAX, GLYCOLAX) 17 g ORAL DAILY senna-docusate 8.6-50 mg 1 tablet (SENNA-S) 1 tablet ORAL BID methylPREDNISolone sod succinate(PF) 60 mg injection (Solu- MEDROL) 60 mg INTRAVENOUS q 8 H pill splitter (patient-specific) 1 Each Miscell. (Med.Supl.;Non- Drugs) PRN enoxaparin 40 mg injection (LOVENOX) 40 mg SUBCUTANEOUS q 24 HR Chlorhexidine Gluconate 0.12 % 15 mL (PERIDEX) 15 mL ORAL q 12 H budesonide 0.5 mg/2 mL 1 mg (PULMICORT) 1 mg INHALATION BID amiodarone 360 mg in D5W 200 mL (NEXTERONE) 0.5-1 mg/min INTRAVENOUS CONTINUOUS acetaminophen 650 mg tab(s) (TYLENOL) 650 mg ORAL q 6 H PRN aspirin 81 mg chewable tab(s) 81 mg ORAL DAILY dextrose 50% in water 25 mL syringe 12.5 g INTRAVENOUS PRN potassium chloride iv piggyback 20 mEq in sterile water 100 mL 20 mEq INTRAVENOUS PRN magnesium sulfate in water 2 g in sterile water 50 ml 2 g INTRAVENOUS PRN(NO DISPENSE) albuterol 2.5 mg /3 mL (0.083 %) 2.5 mg (PROVENTIL) 2.5 mg INHALATION q 2 H PRN EPINEPHrine 4 mg in NaCl 0.9% 250 mL 0.5-10 mcg/min INTRAVENOUS CONTINUOUS calcium chloride 1 g in D5W 100 mL 1 g INTRAVENOUS PRN(NO DISPENSE) oxyCODONE-acetaminophen 5-325 mg 1-2 tablet (PERCOCET) 1-2 tablet ORAL q 4 H PRN morphine 2-4 mg injection 2-4 mg INTRAVENOUS q 1 H PRN pantoprazole 40 mg injection (PROTONIX) 40 mg INTRAVENOUS DAILY (6 AM) ondansetron (PF) 4 mg injection (ZOFRAN) 4 mg INTRAVENOUS q 6 H PRN propofol infusion (DIPRIVAN) 5-50 mcg/kg/min INTRAVENOUS CONTINUOUS ipratropium-albuterol 3 mL nebulizer solution (DUONEB) 3 mL INHALATION q 4 H PHENYLephrine 80 mg in D5W 250 mL (NEOSYNEPHRINE) 10-100 mcg/min INTRAVENOUS CONTINUOUS atorvastatin 40 mg tab(s) (LIPITOR) 40 mg ORAL AT BEDTIME 0.9% NaCl 3-5 mL 3-5 mL INTRAVENOUS q 12 H DATA: BLOOD GAS: Recent Labs 02/13/18 1945 02/10/18 0819 02/10/18 0547 02/09/18 2015 02/09/18 1738 02/09/18 1400 02/09/18 1252 02/09/18 1217 RESPHCO3 25.1 23.3 23.0 21.3* 20.8* 23.6 -- -- PH 7.310* 7.392 7.385 7.267* 7.261* 7.193* 7.236* 7.372 PCO2 51.4* 39.3 39.4 48.2* 47.4* 62.0* -- -- M5NOBUAH 94.0* 96.1 93.6* 95.2 97.6 96.2 -- -- CBC: Recent Labs 02/13/18 0450 02/12/18 0501 02/11/18 0420 02/10/18 1455 02/10/18 0545 02/09/18 1405 02/09/18 1252 02/09/18 1217 02/09/18 0407 02/08/18 0500 WBC 7.83 11.10* 15.13* 14.16* 14.31* 22.43* -- -- -- 8.26 11.59* HB 10.0* 10.2* 10.9* 10.1* 10.9* 13.1* -- -- -- 14.3 14.5 HCT 30.3* 30.5* 33.3* 31.0* 32.6* 38.7* 29* 30* < > 42.8 42.8 PLT 105* 96* 105* 107* 112* 157 -- -- -- 187 222 MCV 98.1* 96.5* 98.8* 99.7* 96.4* 97.7* -- -- -- 96.2* 95.1 < > = values in this interval not displayed. COAG: Recent Labs 02/10/18 0545 02/09/18 1405 02/09/18 0123 02/08/18 1730 02/08/18 0700 02/08/18 0105 02/07/18 2243 02/07/18 1525 APTT -- 23.0 43.7* 25.8 28.5 28.3 -- -- INR 1.23 1.24 -- -- -- 1.05 1.10 1.10 BMP: Recent Labs 02/14/18 0503 02/13/18 1945 02/13/18 0450 02/12/18 0501 02/11/18 0420 02/10/18 1455 02/10/18 0545 02/09/182014 GLUC 143* 113* 107* 109* 104* 97 95 135* NA 140 140 140 141 142 143 144 143 K 4.7 3.5 3.7 3.9 4.3 4.0 3.9 3.9 CHLOR 109* 110* 110* 113* 112* 113* 113* 113* CO2 23 25 23 25 25 26 25 23 ANION 13 9 11 7* 9 8 10 11 BUN 19* 20* 21* 29* 25* 17 14 15 CREAT 0.78 0.93 0.86 1.19* 1.34* 1.01 0.93 1.01 CHEM: Recent Labs 02/14/18 0503 02/13/18 1945 02/13/18 0450 02/12/18 0501 02/11/18 0420 02/10/18 1455 02/10/18 0545 02/09/18 2015 02/09/18 1405 02/07/18 2243 02/07/18 1525 ALB -- -- -- -- -- -- -- -- 2.5* -- -- 3.0* TPROT -- -- -- -- -- -- -- -- 5.2* -- -- 7.5 CA 8.2* 8.0* 8.0* 8.2* 8.3* 8.1* 7.7* 7.8* 7.9* < > -- 8.8 MG -- 2.2 -- -- 2.6 2.5 2.3 1.9 1.8 -- 2.3 -- ICAL -- -- -- -- -- 4.73 -- 4.64 -- -- -- -- < > = values in this interval not displayed. HEPATIC: Recent Labs 02/09/18 1405 02/07/18 1525 ALKPHOS 64 104 ALT 30 27 AST 88* 23 TBILI 0.6 0.4 LIPASE -- 158 URINALYSIS: Recent Labs 02/13/18 1945 02/10/18 0819 02/10/18 0547 02/09/18 2015 02/09/18 1738 02/09/18 1400 02/09/18 1252 02/09/18 1217 PH 7.310* 7.392 7.385 7.267* 7.261* 7.193* 7.236* 7.372 Assessment/Plan ASSESSMENT: ACTIVE PROBLEM LIST Inguinal Hernia Without Mention of Obstruction Or Gangrene, Unilateral Or Unspecified, (Not Specified As Recurrent) Nstemi (Non-St Elevated Myocardial Infarction) ([facility]) Nsvt (Nonsustained Ventricular Tachycardia) ([facility]) Nicotine use disorder, F17.2 S/P CABG, POD #5 Acute exacerbation of COPD secondary to HCAP PLAN: Continue full ventilator support. Unable to wean given that his resting respiratory rate on the ventilator is 28-30 times/minute. Continue bronchodilators. Finish antibiotic course and de-escalate by changing Zosyn to ceftriaxone. I discontinued vancomycin yesterday. Patient has no need for steroids at this time as the patient has no active bronchospasm currently. Will avoid steroids as much as possible given his post-operative state. Hemodynamically stable off pressors. Continue chest tube management as per Cardiovascular/Thoracic Surgery. Continue diabetes mellitus treatment as per the post-cardiac surgery protocol. This patient has a high probability of sudden, clinically significant deterioration, which requires the highest level of physician preparedness to intervene urgently. I managed/supervised life or organ supporting interventions that required frequent physician assessment. I devoted my full attention to the direct care of this patient for the amount of time indicated below. Time I spent with family or surrogate(s) is included only if the patient was incapable of providing the necessary information or participating in medical decision making. Time devoted to teaching and to any procedures I billed separately is not included. PROGNOSIS: Fair Code status: Full Code. Discussed with Registered RN and PharmD. Critical Care Documentation: The patient has the following organ/system impairment(s): Respiratory failure (Acute, with Hypoxemia) and coronary artery disease Time spent providing critical care services: 41 minutes. SIGNATURE: Keon Chance MD [facility] PAGER:[phone] DATE of SERVICE: February 14, 2018 TIME of SERVICE: 12:[address], LD, RD 02/14/2018 1:35 PM Signed NUTRITION THERAPY PROGRESS NOTE SERVICE DATE: 02/14/2018 SERVICE TIME: 1:22 PM RECOMMENDED DIAGNOSIS: NO MALNUTRITION IDENTIFIED per Registered Dietitian on 02/11/18 NUTRITION CARE PLAN Intervention: Impact Peptide at goal rate 57 ml/hr to provide 1368 ml product - 2052 kcal, 128.6 gm protein, 1053 ml free water Flush with 30 ml 6 times per day (Flush goal 165 ml 6 times per day) If continues to have problems with TF tolerance after restart could consider full elemental tf or post-pyloric tube placement Coordination of Care: Nursing, VIR[place]IA LINE ATTENDANT, and pharmacy Monitor and Evaluation: Goal: Meet >75% of estimated needs Monitor fluid/electrolyte balance Monitor labs, I/Os, vital signs, weight Monitor tolerance to tube feeding Discharge Nutrition Recommendations: To be determined Chart reviewed for follow up from consult Per HPI: 67 year old male patient with no known PMH other than long history of smoking ( 2packs a day for more than 30 years) Earlier 3/13/18 he was sitting and suddenly started having substernal chest pain, pain is intermittent with no radiation, he felt nauseas but no vomiting and no diaphoresis This pain kept coming so he went to the ER ? Underwent LHC on 02/08/18 showed need for CABG, underwent CABG on 02/09/18. Interval History: Chest tubed pulled 02/11. Remains on vent support. Noted residuals and tube feeding held at present. Started on Reglan daily from PRN. ACTIVE PROBLEM LIST Inguinal Hernia Without Mention of Obstruction Or Gangrene, Unilateral Or Unspecified, (Not Specified As Recurrent) Nstemi (Non-St Elevated Myocardial Infarction) (Hcc) Nsvt (Nonsustained Ventricular Tachycardia) (Hcc) Nicotine use disorder, F17.2 No past medical history on file. PAST SURGICAL HISTORY Procedure Laterality Date - ORTHOPEDICS SURGERY HX - REPAIR ING HERNIA,5+Y/O,REDUCIBL 1989 Hernia repair, inguinal,left Present Diet Order: NPO, tube feeding held at present due to high residuals. Nutritional Intake: <50% estimated energy need over the past 7 day(s), tf held at present Admission Weight: 104.3 kg (229 lb 15 oz) Current Weight: 111.2 kg (245 lb 2.4 oz) Body mass index is 34.21 kg/(m2). class 1 obesity Last 12 Encounter Wt Readings: Date: Wt: 02/07/2018 111.2 kg (245 lb 2.4 oz) 02/07/2018 104.3 kg (230 lb) 12/04/2007 100.2 kg (221 lb) ALLERGIES No Known Allergies Current Facility-Administered Medications: nystatin 5 mL oral liquid (MYCOSTATIN) 5 mL ORAL QID metoprolol tartrate (short acting) 25 mg tab(s) (LOPRESSOR) 25 mg ORAL q 8 H metoclopramide HCl 10 mg injection (REGLAN) 10 mg INTRAVENOUS q 6 H LORazepam 2 mg injection (ATIVAN) 2 mg INTRAVENOUS q 4 H PRN cefTRIAXone iv piggyback 1 g in dextrose (iso-osmotic) 50 mL (ROCEPHIN) 1 g INTRAVENOUS q 24 H dextrose 40 % 15 g 15 g ORAL PRN Or glucagon 1 mg injection (GLUCAGEN) 1 mg INTRAMUSCULAR PRN Or dextrose 50% in water 25 mL syringe 12.5 g INTRAVENOUS PRN insulin regular human injection (short acting) (NovoLIN R,HumuLIN R) SUBCUTANEOUS q 6 H bisacodyl 10 mg suppository (DULCOLAX) 10 mg RECTAL DAILY PRN polyethylene glycol 3350 17 g packet (MIRALAX, GLYCOLAX) 17 g ORAL DAILY senna-docusate 8.6-50 mg 1 tablet (SENNA-S) 1 tablet ORAL BID methylPREDNISolone sod succinate(PF) 60 mg injection (Solu- MEDROL) 60 mg INTRAVENOUS q 8 H pill splitter (patient-specific) 1 Each Miscell. (Med.Supl.;Non- Drugs) PRN enoxaparin 40 mg injection (LOVENOX) 40 mg SUBCUTANEOUS q 24 HR Chlorhexidine Gluconate 0.12 % 15 mL (PERIDEX) 15 mL ORAL q 12 H budesonide 0.5 mg/2 mL 1 mg (PULMICORT) 1 mg INHALATION BID amiodarone 360 mg in D5W 200 mL (NEXTERONE) 0.5-1 mg/min INTRAVENOUS CONTINUOUS acetaminophen 650 mg tab(s) (TYLENOL) 650 mg ORAL q 6 H PRN aspirin 81 mg chewable tab(s) 81 mg ORAL DAILY dextrose 50% in water 25 mL syringe 12.5 g INTRAVENOUS PRN potassium chloride iv piggyback 20 mEq in sterile water 100 mL 20 mEq INTRAVENOUS PRN magnesium sulfate in water 2 g in sterile water 50 ml 2 g INTRAVENOUS PRN(NO DISPENSE) albuterol 2.5 mg /3 mL (0.083 %) 2.5 mg (PROVENTIL) 2.5 mg INHALATION q 2 H PRN EPINEPHrine 4 mg in NaCl 0.9% 250 mL 0.5-10 mcg/min INTRAVENOUS CONTINUOUS calcium chloride 1 g in D5W 100 mL 1 g INTRAVENOUS PRN(NO DISPENSE) oxyCODONE-acetaminophen 5-325 mg 1-2 tablet (PERCOCET) 1-2 tablet ORAL q 4 H PRN morphine 2-4 mg injection 2-4 mg INTRAVENOUS q 1 H PRN pantoprazole 40 mg injection (PROTONIX) 40 mg INTRAVENOUS DAILY (6 AM) ondansetron (PF) 4 mg injection (ZOFRAN) 4 mg INTRAVENOUS q 6 H PRN propofol infusion (DIPRIVAN) 5-50 mcg/kg/min INTRAVENOUS CONTINUOUS ipratropium-albuterol 3 mL nebulizer solution (DUONEB) 3 mL INHALATION q 4 H PHENYLephrine 80 mg in D5W 250 mL (NEOSYNEPHRINE) 10-100 mcg/min INTRAVENOUS CONTINUOUS atorvastatin 40 mg tab(s) (LIPITOR) 40 mg ORAL AT BEDTIME 0.9% NaCl 3-5 mL 3-5 mL INTRAVENOUS q 12 H Surgical Incision 02/09/18 Chest - Midsternal (Active) Dressing Status None: Open to Air 02/14/2018 11:15 AM Frequency of Dressing Change As Needed 02/12/2018 8:00 AM Incision Closures Topical Skin Adhesive 02/14/2018 8:14 AM Drainage Description None 02/14/2018 11:15 AM Drainage Amount None 02/14/2018 11:15 AM Edges Intact 02/14/2018 11:15 AM Hematoma No 02/14/2018 11:15 AM Number of days:5 Surgical Incision 02/09/18 Leg - Left (Active) Dressing Status None: Open to Air 02/14/2018 11:15 AM Frequency of Dressing Change As Needed 02/12/2018 8:00 AM Incision Closures Topical Skin Adhesive 02/14/2018 11:15 AM Drainage Description None 02/14/2018 11:15 AM Drainage Amount None 02/14/2018 11:15 AM Edges Intact 02/14/2018 11:15 AM Hematoma No 02/14/2018 11:15 AM Number of days:5 MNT Billing Type: Re-assess/15 min 3 units SIGNATURE: Sandra Almaguer RD, LD PATIENT NAME: Jeffrey Cullen DATE: February 14, 2018 TIME: 1:22 PM PAGER: [phone] Juan Cabral MD 02/14/2018 5:43 PM Signed Result Noted. Patient is currently hospitalized and managed by the in-patient team. MD Juan Martinez MD 02/14/2018 6:26 PM Signed Result Noted. Patient is currently hospitalized and managed by the in-patient team. MD Beata Martinez MD 02/15/2018 5:21 PM Addendum CARDIOTHORACIC SURGERY POSTOP PROGRESS NOTE SERVICE DATE: 02/15/2018 SERVICE TIME: 10:40am Subjective S/P SURGERY: Procedure(s) (LRB): BYPASS GRAFT ARTERY CORONARY ON-PUMP SINGLE CORONARY ARTERIAL GRAFT (N/A) BYPASS GRAFT ARTERY CORONARY ON-PUMP USING VENOUS GRAFT(S) AND ARTERIAL GRAFT(S); TWO VENOUS GRAFTS (N/A) ENDOSCOPIC HARVEST VEIN FOR CORONARY ARTERY BYPASS PROCEDURE (N/A) DATE OF SURGERY: 02/09/2018 POSTOP DAY #6 LOS: 8 INTERVAL EVENTS / PERTINENT ROS: Still on the vent. No events overnight. Attempting CPAP again today per Pulm. Objective Admission Weight: 104.3 kg (229 lb 15 oz) BP 147/62 Pulse 88 Temp 37 ?C (98.6 ?F) (High Thermistor) Resp 14 Ht 180.3 cm (5' 10.98) Wt 111.7 kg (246 lb 4.1 oz) SpO2 97% BMI 34.36 kg/m2 Body surface area is 2.37 meters squared. Min/Max/Average Temperature AND Blood Pressure: Temp (24hrs), Av.2 ?C (99 ?F), Min:36.9 ?C (98.4 ?F), Max:37.5 ?C (99.5 ?F) Systolic (24hrs), Av , Min:141 , Max:147 Diastolic (24hrs), Av, Min:62, Max:75 Intake/Output Summary (Last 24 hours) at 02/15/18 1553 Last data filed at 02/15/18 1200 Gross per 24 hour Intake 2050 ml Output 2353 ml Net -303 ml Current Facility-Administered Medications: - metoprolol tartrate (short acting) 50 mg tab(s) (LOPRESSOR) - nystatin 5 mL oral liquid (MYCOSTATIN) - metoclopramide HCl 10 mg injection (REGLAN) - LORazepam 2 mg injection (ATIVAN) - cefTRIAXone iv piggyback 1 g in dextrose (iso-osmotic) 50 mL (ROCEPHIN) - dextrose 40 % 15 g OR glucagon 1 mg injection (GLUCAGEN) OR dextrose 50% in water 25 mL syringe - insulin regular human injection (short acting) (NovoLIN R,HumuLIN R) - bisacodyl 10 mg suppository (DULCOLAX) - polyethylene glycol 3350 17 g packet (MIRALAX, GLYCOLAX) - senna-docusate 8.6-50 mg 1 tablet (SENNA-S) - pill splitter (patient-specific) - enoxaparin 40 mg injection (LOVENOX) - Chlorhexidine Gluconate 0.12 % 15 mL (PERIDEX) - budesonide 0.5 mg/2 mL 1 mg (PULMICORT) - acetaminophen 650 mg tab(s) (TYLENOL) - aspirin 81 mg chewable tab(s) - dextrose 50% in water 25 mL syringe - potassium chloride iv piggyback 20 mEq in sterile water 100 mL - magnesium sulfate in water 2 g in sterile water 50 ml - albuterol 2.5 mg /3 mL (0.083 %) 2.5 mg (PROVENTIL) - calcium chloride 1 g in D5W 100 mL - oxyCODONE-acetaminophen 5-325 mg 1-2 tablet (PERCOCET) - morphine 2-4 mg injection - pantoprazole 40 mg injection (PROTONIX) - ondansetron (PF) 4 mg injection (ZOFRAN) - propofol infusion (DIPRIVAN) - ipratropium-albuterol 3 mL nebulizer solution (DUONEB) - atorvastatin 40 mg tab(s) (LIPITOR) - 0.9% NaCl 3-5 mL TELEMETRY: normal sinus rhythm PHYSICAL EXAM: General Appearance: no distress and sedated on the vent Skin: Midsternal incision dry AND intact. and SVG incisions dry AND intact. Lungs: decreased breath sounds and respiratory effort: normal Heart: regular rhythm, S1, S2 normal and pacing wires present Abdomen: soft, non-tender and bowel sounds present Genitourinary: High intact, urine color is clear yellow Extremities: edema: 1+ Lines, Drains, and Airways Line Peripheral 02/08/18 0100 Short Right Arm 20 Gauge 7 days Arterial Line 02/09/18 0830 Arterial Line Left Radial 6 days Central Line Double Lumen 02/09/18 0845 Non-tunneled Right Neck 6 days Peripheral 02/09/18 0820 Left Forearm 16 Gauge 6 days Drain GI Feed/Drain 02/09/18 0800 Oral Gastric Midline 6 days Indwelling Urinary Catheter 02/09/18 0838 Temperature Monitoring 16 Fr 6 days Airway Airway Endotracheal Tube 02/09/18 0800 6 days DATA: Diagnostic tests reviewed for today's visit: Recent Labs 02/15/18 0530 02/14/18 0503 02/13/18 1945 02/13/18 0450 RBC 3.50* -- -- 3.09* WBC 10.27* -- -- 7.83 HB 11.3* -- -- 10.0* HCT 33.2* -- -- 30.3* PLT 179 -- -- 105* NA 141 140 140 140 K 4.0 4.7 3.5 3.7 CHLOR 112* 109* 110* 110* CO2 26 23 25 23 BUN 20* 19* 20* 21* CREAT 0.83 0.78 0.93 0.86 GLUC 137* 143* 113* 107* CA 8.2* 8.2* 8.0* 8.0* MG -- -- 2.2 -- ANION 7* 13 9 11 Recent Labs 02/13/181944 PH 7.310* PCO2 51.4* PO2 79.6* BE -1.3 Assessment/Plan Acute NSTEMI s/p CABG x 3 -POD#6 -c/w ASA, statin; increase BB to 50mg q8h -Post thorax vest ?? Acute hypoxic AND hypercapneic respiratory failure 2/2 severe COPD and PNA -Vent management per pulmonary service -Attempting to wean to CPAP. ??? Klebsiella and E. coli HCAP -On ceftriaxone Oral Thrush -c/w nystatin ?? Volume Overload -c/w Lasix IV 20mg daily Constipation -c/w miralax and senokot-s -no results with dulcolax supp. -give mag citrate today Nutrition -consider trial TF again today -if unable to TF and not weaning vent, will need TPN DVT ppx -Lovenox and SCDs Tests/Labs Ordered: 1. BMP SIGNATURE: Clementine Owen APRN.SPRAY UNIT FEEDER PATIENT NAME: Jeffrey Cullen DATE: February 15, 2018 TIME: 3:53 PM PAGER/CONTACT #: [phone] Patient seen w PUBLIC ADDRESS SERVICER. Labs, data, and careplan reviewed. P-as discussed/ordered. Previous Version Keon Chance MD 02/15/2018 11:14 AM Signed CRITICAL CARE PROGRESS NOTE SERVICE DATE: February 15, 2018 SERVICE TIME: 11:10 AM Admission Date: 02/07/2018 AGE: [age] year old LOS: 8 days REASON FOR ICU ADMISSION: ACTIVE PROBLEM LIST Inguinal Hernia Without Mention of Obstruction Or Gangrene, Unilateral Or Unspecified, (Not Specified As Recurrent) Nstemi (Non-St Elevated Myocardial Infarction) (Hcc) Nsvt (Nonsustained Ventricular Tachycardia) ([facility]) Nicotine use disorder, F17.2 Subjective OVERNIGHT EVENTS: Patient is resting comfortably in bed while sedated and intubated/on the ventilator without any current distress. Objective VITAL SIGNS (last 24hrs min/max): Temp Av.4 ?C (99.3 ?F) Min: 36.5 ?C (97.7 ?F) Max: 37.8 ?C (100 ?F) Pulse Av.3 Min: 69 Max: 97 Cuff No Data Recorded Pain Score: 0/10 24 hour Intake AND Output: Intake/Output Summary (Last 24 hours) at 02/15/18 1110 Last data filed at 02/15/18 1000 Gross per 24 hour Intake 2133 ml Output 2017 ml Net 116 ml PHYSICAL EXAM: RRR Minimal scattered crackles bilaterally without wheezing bilaterally anteriorly. Minimal bowel sounds, soft, nontender, distended. No pedal edema bilaterally. Poor turgor, but dry, intact skin. VENTILATOR INFORMATION: WEANING DATA: Settings: Invasive Ventilator Mode: Pressure Regulated Volume Control (02/15/18 0825) %FIO2: 50 Set Ventilator Respiratory Rate (BPM): 15 Tidal Volume Set (mL): 550 PEEP/CPAP (cm H2O): 5 Patient Data: Inspiratory:Expiratory Ratio: 1:3.4 Peak Inspiratory Pressure (cm H2O): 9 Plateau Pressure (cm H2O): 15 Weaning Data: Spontaneous Respiratory Rate (BPM): 0 INPATIENT MEDICATIONS: Current hospital medications: furosemide 20 mg injection (LASIX) 20 mg INTRAVENOUS ONCE metoprolol tartrate (short acting) 50 mg tab(s) (LOPRESSOR) 50 mg ORAL q 8 H nystatin 5 mL oral liquid (MYCOSTATIN) 5 mL ORAL QID metoclopramide HCl 10 mg injection (REGLAN) 10 mg INTRAVENOUS q 6 H LORazepam 2 mg injection (ATIVAN) 2 mg INTRAVENOUS q 4 H PRN cefTRIAXone iv piggyback 1 g in dextrose (iso-osmotic) 50 mL (ROCEPHIN) 1 g INTRAVENOUS q 24 H dextrose 40 % 15 g 15 g ORAL PRN glucagon 1 mg injection (GLUCAGEN) 1 mg INTRAMUSCULAR PRN dextrose 50% in water 25 mL syringe 12.5 g INTRAVENOUS PRN insulin regular human injection (short acting) (NovoLIN R,HumuLIN R) SUBCUTANEOUS q 6 H bisacodyl 10 mg suppository (DULCOLAX) 10 mg RECTAL DAILY PRN polyethylene glycol 3350 17 g packet (MIRALAX, GLYCOLAX) 17 g ORAL DAILY senna-docusate 8.6-50 mg 1 tablet (SENNA-S) 1 tablet ORAL BID methylPREDNISolone sod succinate(PF) 60 mg injection (Solu- MEDROL) 60 mg INTRAVENOUS q 8 H pill splitter (patient-specific) 1 Each Miscell. (Med.Supl.;Non- Drugs) PRN enoxaparin 40 mg injection (LOVENOX) 40 mg SUBCUTANEOUS q 24 HR Chlorhexidine Gluconate 0.12 % 15 mL (PERIDEX) 15 mL ORAL q 12 H budesonide 0.5 mg/2 mL 1 mg (PULMICORT) 1 mg INHALATION BID amiodarone 360 mg in D5W 200 mL (NEXTERONE) 0.5-1 mg/min INTRAVENOUS CONTINUOUS acetaminophen 650 mg tab(s) (TYLENOL) 650 mg ORAL q 6 H PRN aspirin 81 mg chewable tab(s) 81 mg ORAL DAILY dextrose 50% in water 25 mL syringe 12.5 g INTRAVENOUS PRN potassium chloride iv piggyback 20 mEq in sterile water 100 mL 20 mEq INTRAVENOUS PRN magnesium sulfate in water 2 g in sterile water 50 ml 2 g INTRAVENOUS PRN(NO DISPENSE) albuterol 2.5 mg /3 mL (0.083 %) 2.5 mg (PROVENTIL) 2.5 mg INHALATION q 2 H PRN EPINEPHrine 4 mg in NaCl 0.9% 250 mL 0.5-10 mcg/min INTRAVENOUS CONTINUOUS calcium chloride 1 g in D5W 100 mL 1 g INTRAVENOUS PRN(NO DISPENSE) oxyCODONE-acetaminophen 5-325 mg 1-2 tablet (PERCOCET) 1-2 tablet ORAL q 4 H PRN morphine 2-4 mg injection 2-4 mg INTRAVENOUS q 1 H PRN pantoprazole 40 mg injection (PROTONIX) 40 mg INTRAVENOUS DAILY (6 AM) ondansetron (PF) 4 mg injection (ZOFRAN) 4 mg INTRAVENOUS q 6 H PRN propofol infusion (DIPRIVAN) 5-50 mcg/kg/min INTRAVENOUS CONTINUOUS ipratropium-albuterol 3 mL nebulizer solution (DUONEB) 3 mL INHALATION q 4 H PHENYLephrine 80 mg in D5W 250 mL (NEOSYNEPHRINE) 10-100 mcg/min INTRAVENOUS CONTINUOUS atorvastatin 40 mg tab(s) (LIPITOR) 40 mg ORAL AT BEDTIME 0.9% NaCl 3-5 mL 3-5 mL INTRAVENOUS q 12 H DATA: BLOOD GAS: Recent Labs 02/13/18 1945 02/10/18 0819 02/10/18 0547 02/09/18 2015 02/09/18 1738 02/09/18 1400 02/09/18 1252 02/09/18 1217 RESPHCO3 25.1 23.3 23.0 21.3* 20.8* 23.6 -- -- PH 7.310* 7.392 7.385 7.267* 7.261* 7.193* 7.236* 7.372 PCO2 51.4* 39.3 39.4 48.2* 47.4* 62.0* -- -- [id number] 94.0* 96.1 93.6* 95.2 97.6 96.2 -- -- CBC: Recent Labs 02/15/18 0530 02/13/18 0450 02/12/18 0501 02/11/18 0420 02/10/18 1455 02/10/18 0545 02/09/18 1405 02/09/18 1252 02/09/18 0407 WBC 10.27* 7.83 11.10* 15.13* 14.16* 14.31* 22.43* -- -- 8.26 HB 11.3* 10.0* 10.2* 10.9* 10.1* 10.9* 13.1* -- -- 14.3 HCT 33.2* 30.3* 30.5* 33.3* 31.0* 32.6* 38.7* 29* < > 42.8 PLT 179 105* 96* 105* 107* 112* 157 -- -- 187 MCV 94.9 98.1* 96.5* 98.8* 99.7* 96.4* 97.7* -- -- 96.2* < > = values in this interval not displayed. COAG: Recent Labs 02/10/18 0545 02/09/18 1405 02/09/18 0123 02/08/18 1730 APTT -- 23.0 43.7* 25.8 INR 1.23 1.24 -- -- BMP: Recent Labs 02/15/18 0530 02/14/18 0503 02/13/18194402/13/18 0450 02/12/18 0501 02/11/18 0420 02/10/18 1455 02/10/18 0545 GLUC 137* 143* 113* 107* 109* 104* 97 95 NA 141 140 140 140 141 142 143 144 K 4.0 4.7 3.5 3.7 3.9 4.3 4.0 3.9 CHLOR 112* 109* 110* 110* 113* 112* 113* 113* CO2 26 23 25 23 25 25 26 25 ANION 7* 13 9 11 7* 9 8 10 BUN 20* 19* 20* 21* 29* 25* 17 14 CREAT 0.83 0.78 0.93 0.86 1.19* 1.34* 1.01 0.93 CHEM: Recent Labs 02/15/18 0530 02/14/18 0503 02/13/18194402/13/18 0450 02/12/18 0501 02/11/18 0420 02/10/18 1455 02/10/18 0545 02/09/18201402/09/18 1405 ALB -- -- -- -- -- -- -- -- -- 2.5* TPROT -- -- -- -- -- -- -- -- -- 5.2* CA 8.2* 8.2* 8.0* 8.0* 8.2* 8.3* 8.1* 7.7* 7.8* 7.9* MG -- -- 2.2 -- -- 2.6 2.5 2.3 1.9 1.8 ICAL -- -- -- -- -- -- 4.73 -- 4.64 -- HEPATIC: Recent Labs 02/09/18 1405 ALKPHOS 64 ALT 30 AST 88* TBILI 0.6 URINALYSIS: Recent Labs 02/13/18194402/10/18 0819 02/10/18 0547 02/09/18201402/09/18 1738 02/09/18 1400 02/09/18 1252 02/09/18 1217 PH 7.310* 7.392 7.385 7.267* 7.261* 7.193* 7.236* 7.372 Assessment/Plan ASSESSMENT: ACTIVE PROBLEM LIST Inguinal Hernia Without Mention of Obstruction Or Gangrene, Unilateral Or Unspecified, (Not Specified As Recurrent) Nstemi (Non-St Elevated Myocardial Infarction) (Hcc) Nsvt (Nonsustained Ventricular Tachycardia) (Hcc) Nicotine use disorder, F17.2 S/P CABG, POD #6 Acute exacerbation of COPD secondary to HCAP PLAN: Continue full ventilator support. Unable to wean given that his resting respiratory rate on the ventilator is 28-30 times/minute. Continue bronchodilators. Finish antibiotic course and de-escalate by changing Zosyn to ceftriaxone. I discontinued vancomycin yesterday. Patient has no need for steroids at this time as the patient has no active bronchospasm currently therefore will discontinue what was started by one of my partners. Will avoid steroids as much as possible given his post-operative state. Hemodynamically stable off pressors. Continue chest tube management as per Cardiovascular/Thoracic Surgery. This patient has a high probability of sudden, clinically significant deterioration, which requires the highest level of physician preparedness to intervene urgently. I managed/supervised life or organ supporting interventions that required frequent physician assessment. I devoted my full attention to the direct care of this patient for the amount of time indicated below. Time I spent with family or surrogate(s) is included only if the patient was incapable of providing the necessary information or participating in medical decision making. Time devoted to teaching and to any procedures I billed separately is not included. PROGNOSIS: Fair Code status: Full Code. Discussed with Registered Nurse, ORAL AND MAXILLOFACIAL SURGEON, PharmD, and Yg Owen (Cardiovascular/Thoracic Surgery PUBLIC ADDRESS SERVICER). Critical Care Documentation: The patient has the following organ/system impairment(s): Respiratory failure (Acute, with Hypoxemia) and coronary artery disease Time spent providing critical care services: 39 minutes. SIGNATURE: Keon Chance MD [facility] PAGER:[phone] DATE of SERVICE: February 15, 2018 TIME of SERVICE: 11:10 AM Juan Cabral MD 02/15/2018 1:32 PM Signed Result Noted. Patient is currently hospitalized and managed by the in-patient team. MD Ursula Martinez, PT 02/16/2018 8:34 AM Signed PHYSICAL THERAPY MISSED VISIT SERVICE DATE: 02/16/2018 SERVICE TIME: 08 to 0832 ROOM: [id number] Attempted Evaluation. Patient not seen due to Illness (Remain intubated. Please reconsult when patient is medically appropriate to work with physical therapy). SIGNATURE: Ursula Goyal PT PATIENT NAME: Jeffrey Cullen DATE: February 16, 2018 TIME: 8:33 AM PAGER/CONTACT #: [phone] Latia Garcia, Highway Patrol Officer 02/16/2018 9:14 AM Signed Updated notes sent to [facility]. Sandra Almaguer RD, LD, RD 02/16/2018 3:00 PM Signed NUTRITION THERAPY PROGRESS NOTE SERVICE DATE: 02/16/2018 SERVICE TIME: 2:00pm RECOMMENDED DIAGNOSIS: NO MALNUTRITION IDENTIFIED per Registered Dietitian on 02/11/18 NUTRITION CARE PLAN Problem, Etiology and Signs/Symptoms: Suboptimal oral intake related to respiratory status as evidenced by NPO and vent support Intervention: Impact Peptide at goal rate 47 ml/hr to provide 1128 ml product - 1692 kcal, 106 gm protein, 868.6 ml free water Flush with 30 ml 6 times per day (Flush goal 165 ml 6 times per day) Propofol at 19.8 ml/hr providing 522 kcals. Collaborated with KEON CHANCE MD and orders written. Coordination of Care: MD, pharmacy, VIR[place]IA LINE ATTENDANT, and nursing Monitor and Evaluation: Goal: Meet >75% of estimated needs Monitor fluid/electrolyte balance Monitor labs, I/Os, vital signs, weight Monitor tolerance to tube feeding Discharge Nutrition Recommendations: To be determined Reason for Visit: Follow up of tube feed Per HPI: 67 year old male patient with no known PMH other than long history of smoking ( 2packs a day for more than 30 years) Earlier 02/07/18?he was sitting and suddenly started having substernal chest pain, pain is intermittent with no radiation, he felt nauseas but no vomiting and no diaphoresis.This pain kept coming so he went to the ER. Underwent LHC on 02/08/18 showed need for CABG, underwent CABG on 02/09/18. Chest tubed pulled 02/11. Remains on vent support. Noted residuals and tube feeding held at present. Started on Reglan daily from PRN. Interval History: Patient remains intubated this AM. No significant residuals noted greater than 100 cc. Toleration of tube feeding improving. Present Diet Order: Continuous Tube Feeding Impact peptide 1.5 at 20ml/hr providing 720 ml/kcals/24hr ; 23 grams of prot ; 185 ml free water. Nutritional Intake: 0-25% estimated energy needs over the past 9 day(s) indicated by prolonged po status and intolerance of tube feed. Admission Weight: 104.3 kg (229 lb 15 oz) Current Weight: 110.2 kg (242 lb 15.2 oz) Body mass index is 33.9 kg/(m2). class 1 obesity Weight has increased by 5.9 kg indicating a % weight change of 5.4% over 9 days. Last 12 Encounter Wt Readings: Date: Wt: 02/16/2018 110.2 kg (242 lb 15.2 oz) 02/15/2018 111.7 kg (245 lb 11.8 oz) 02/14/2018 111.2 kg (245 lb 11.8 oz) 02/13/2018 112.6 kg (247 lb 11.5 oz) 02/12/2018 112.0 kg (247 lb) 02/11/2018 110.1 kg (242 lb 11.6 oz) 02/10/2018 108.3 kg (238 lb 12.1 oz) 02/09/2018 105.7 kg (233 lb 0.4 oz) 02/08/2018 104.3 kg (229 lb 15 oz) 02/07/2018 110.2 kg (242 lb 15.2 oz) Question accuracy 02/07/2018 104.3 kg (230 lb) Stated wt 12/04/2007 100.2 kg (221 lb) ALLERGIES No Known Allergies Current Facility-Administered Medications: metoprolol tartrate (short acting) 50 mg tab(s) (LOPRESSOR) 50 mg ORAL q 8 H dilTIAZem 100 mg in D5W 100 mL ADD-Boyden (CARDIZEM) 5-15 mg/hr INTRAVENOUS CONTINUOUS nystatin 5 mL oral liquid (MYCOSTATIN) 5 mL ORAL QID metoclopramide HCl 10 mg injection (REGLAN) 10 mg INTRAVENOUS q 6 H LORazepam 2 mg injection (ATIVAN) 2 mg INTRAVENOUS q 4 H PRN cefTRIAXone iv piggyback 1 g in dextrose (iso-osmotic) 50 mL (ROCEPHIN) 1 g INTRAVENOUS q 24 H dextrose 40 % 15 g 15 g ORAL PRN Or glucagon 1 mg injection (GLUCAGEN) 1 mg INTRAMUSCULAR PRN Or dextrose 50% in water 25 mL syringe 12.5 g INTRAVENOUS PRN insulin regular human injection (short acting) (NovoLIN R,HumuLIN R) SUBCUTANEOUS q 6 H bisacodyl 10 mg suppository (DULCOLAX) 10 mg RECTAL DAILY PRN polyethylene glycol 3350 17 g packet (MIRALAX, GLYCOLAX) 17 g ORAL DAILY senna-docusate 8.6-50 mg 1 tablet (SENNA-S) 1 tablet ORAL BID pill splitter (patient-specific) 1 Each Miscell. (Med.Supl.;Non- Drugs) PRN enoxaparin 40 mg injection (LOVENOX) 40 mg SUBCUTANEOUS q 24 HR Chlorhexidine Gluconate 0.12 % 15 mL (PERIDEX) 15 mL ORAL q 12 H budesonide 0.5 mg/2 mL 1 mg (PULMICORT) 1 mg INHALATION BID acetaminophen 650 mg tab(s) (TYLENOL) 650 mg ORAL q 6 H PRN aspirin 81 mg chewable tab(s) 81 mg ORAL DAILY dextrose 50% in water 25 mL syringe 12.5 g INTRAVENOUS PRN potassium chloride iv piggyback 20 mEq in sterile water 100 mL 20 mEq INTRAVENOUS PRN magnesium sulfate in water 2 g in sterile water 50 ml 2 g INTRAVENOUS PRN(NO DISPENSE) albuterol 2.5 mg /3 mL (0.083 %) 2.5 mg (PROVENTIL) 2.5 mg INHALATION q 2 H PRN calcium chloride 1 g in D5W 100 mL 1 g INTRAVENOUS PRN(NO DISPENSE) oxyCODONE-acetaminophen 5-325 mg 1-2 tablet (PERCOCET) 1-2 tablet ORAL q 4 H PRN morphine 2-4 mg injection 2-4 mg INTRAVENOUS q 1 H PRN pantoprazole 40 mg injection (PROTONIX) 40 mg INTRAVENOUS DAILY (6 AM) ondansetron (PF) 4 mg injection (ZOFRAN) 4 mg INTRAVENOUS q 6 H PRN propofol infusion (DIPRIVAN) 5-50 mcg/kg/min INTRAVENOUS CONTINUOUS ipratropium-albuterol 3 mL nebulizer solution (DUONEB) 3 mL INHALATION q 4 H atorvastatin 40 mg tab(s) (LIPITOR) 40 mg ORAL AT BEDTIME 0.9% NaCl 3-5 mL 3-5 mL INTRAVENOUS q 12 H Surgical Incision 02/09/18 Chest - Midsternal (Active) Dressing Status None: Open to Air 02/16/2018 8:00 AM Frequency of Dressing Change As Needed 02/16/2018 8:00 AM Incision Closures Topical Skin Adhesive 02/16/2018 8:00 AM Drainage Description None 02/16/2018 8:00 AM Drainage Amount None 02/16/2018 8:00 AM Edges Intact 02/16/2018 8:00 AM Hematoma No 02/16/2018 8:00 AM Number of days:7 Surgical Incision 02/09/18 Leg - Left (Active) Dressing Status None: Open to Air 02/16/2018 8:00 AM Frequency of Dressing Change As Needed 02/16/2018 8:00 AM Incision Closures Topical Skin Adhesive 02/16/2018 8:00 AM Drainage Description None 02/16/2018 8:00 AM Drainage Amount None 02/16/2018 8:00 AM Edges Intact 02/16/2018 8:00 AM Hematoma No 02/16/2018 8:00 AM Number of days:7 MNT Billing Type: Re-assess/15 min 8 units SIGNATURE: Marya Marquez PATIENT NAME: Jeffrey Cullen DATE: February 16, 2018 TIME: 10:26 AM PAGER: [phone] Previous Version Keon Chance MD 02/16/2018 11:19 AM Signed CRITICAL CARE PROGRESS NOTE SERVICE DATE: February 16, 2018 SERVICE TIME: 11:13 AM Admission Date: 02/07/2018 AGE: [age] year old LOS: 9 days REASON FOR ICU ADMISSION: ACTIVE PROBLEM LIST Inguinal Hernia Without Mention of Obstruction Or Gangrene, Unilateral Or Unspecified, (Not Specified As Recurrent) Nstemi (Non-St Elevated Myocardial Infarction) (Hcc) Nsvt (Nonsustained Ventricular Tachycardia) (Hcc) Nicotine use disorder, F17.2 Subjective OVERNIGHT EVENTS: Patient is resting comfortably in bed while sedated and intubated/on the ventilator without any current distress. Objective VITAL SIGNS (last 24hrs min/max): Temp Av.4 ?C (99.3 ?F) Min: 36.5 ?C (97.7 ?F) Max: 37.8 ?C (100 ?F) Pulse Av.3 Min: 69 Max: 97 Cuff No Data Recorded Pain Score: 0/10 24 hour Intake AND Output: Intake/Output Summary (Last 24 hours) at 02/16/18 1113 Last data filed at 02/16/18 0900 Gross per 24 hour Intake 1537.7 ml Output 1487 ml Net 50.7 ml PHYSICAL EXAM: RRR Minimal scattered crackles bilaterally without wheezing bilaterally anteriorly. Few scattered bowel sounds, soft, nontender, less distended than exam. No pedal edema bilaterally. Poor turgor, but dry, intact skin. VENTILATOR INFORMATION: WEANING DATA: Settings: Invasive Ventilator Mode: Pressure Regulated Volume Control (02/16/18 0951) %FIO2: 40 Set Ventilator Respiratory Rate (BPM): 15 Tidal Volume Set (mL): 550 PEEP/CPAP (cm H2O): 5 Patient Data: Inspiratory:Expiratory Ratio: 1:3.4 Peak Inspiratory Pressure (cm H2O): 14 Plateau Pressure (cm H2O): 19 Weaning Data: Spontaneous Respiratory Rate (BPM): 30 INPATIENT MEDICATIONS: Current hospital medications: metoprolol tartrate (short acting) 50 mg tab(s) (LOPRESSOR) 50 mg ORAL q 8 H dilTIAZem 100 mg in D5W 100 mL ADD-Boyden (CARDIZEM) 5-15 mg/hr INTRAVENOUS CONTINUOUS nystatin 5 mL oral liquid (MYCOSTATIN) 5 mL ORAL QID metoclopramide HCl 10 mg injection (REGLAN) 10 mg INTRAVENOUS q 6 H LORazepam 2 mg injection (ATIVAN) 2 mg INTRAVENOUS q 4 H PRN cefTRIAXone iv piggyback 1 g in dextrose (iso-osmotic) 50 mL (ROCEPHIN) 1 g INTRAVENOUS q 24 H dextrose 40 % 15 g 15 g ORAL PRN glucagon 1 mg injection (GLUCAGEN) 1 mg INTRAMUSCULAR PRN dextrose 50% in water 25 mL syringe 12.5 g INTRAVENOUS PRN insulin regular human injection (short acting) (NovoLIN R,HumuLIN R) SUBCUTANEOUS q 6 H bisacodyl 10 mg suppository (DULCOLAX) 10 mg RECTAL DAILY PRN polyethylene glycol 3350 17 g packet (MIRALAX, GLYCOLAX) 17 g ORAL DAILY senna-docusate 8.6-50 mg 1 tablet (SENNA-S) 1 tablet ORAL BID pill splitter (patient-specific) 1 Each Miscell. (Med.Supl.;Non- Drugs) PRN enoxaparin 40 mg injection (LOVENOX) 40 mg SUBCUTANEOUS q 24 HR Chlorhexidine Gluconate 0.12 % 15 mL (PERIDEX) 15 mL ORAL q 12 H budesonide 0.5 mg/2 mL 1 mg (PULMICORT) 1 mg INHALATION BID acetaminophen 650 mg tab(s) (TYLENOL) 650 mg ORAL q 6 H PRN aspirin 81 mg chewable tab(s) 81 mg ORAL DAILY dextrose 50% in water 25 mL syringe 12.5 g INTRAVENOUS PRN potassium chloride iv piggyback 20 mEq in sterile water 100 mL 20 mEq INTRAVENOUS PRN magnesium sulfate in water 2 g in sterile water 50 ml 2 g INTRAVENOUS PRN(NO DISPENSE) albuterol 2.5 mg /3 mL (0.083 %) 2.5 mg (PROVENTIL) 2.5 mg INHALATION q 2 H PRN calcium chloride 1 g in D5W 100 mL 1 g INTRAVENOUS PRN(NO DISPENSE) oxyCODONE-acetaminophen 5-325 mg 1-2 tablet (PERCOCET) 1-2 tablet ORAL q 4 H PRN morphine 2-4 mg injection 2-4 mg INTRAVENOUS q 1 H PRN pantoprazole 40 mg injection (PROTONIX) 40 mg INTRAVENOUS DAILY (6 AM) ondansetron (PF) 4 mg injection (ZOFRAN) 4 mg INTRAVENOUS q 6 H PRN propofol infusion (DIPRIVAN) 5-50 mcg/kg/min INTRAVENOUS CONTINUOUS ipratropium-albuterol 3 mL nebulizer solution (DUONEB) 3 mL INHALATION q 4 H atorvastatin 40 mg tab(s) (LIPITOR) 40 mg ORAL AT BEDTIME 0.9% NaCl 3-5 mL 3-5 mL INTRAVENOUS q 12 H DATA: BLOOD GAS: Recent Labs 02/13/18 1945 02/10/18 0819 02/10/18 0547 02/09/18201402/09/18 1738 02/09/18 1400 02/09/18 1252 02/09/18 1217 RESPHCO3 25.1 23.3 23.0 21.3* 20.8* 23.6 -- -- PH 7.310* 7.392 7.385 7.267* 7.261* 7.193* 7.236* 7.372 PCO2 51.4* 39.3 39.4 48.2* 47.4* 62.0* -- -- Q3XGSCXI 94.0* 96.1 93.6* 95.2 97.6 96.2 -- -- CBC: Recent Labs 02/16/18 0600 02/15/18 0530 02/13/18 0450 02/12/18 0501 02/11/18 0420 02/10/18 1455 02/10/18 0545 02/09/18 1405 WBC 10.92* 10.27* 7.83 11.10* 15.13* 14.16* 14.31* 22.43* HB 10.9* 11.3* 10.0* 10.2* 10.9* 10.1* 10.9* 13.1* HCT 32.5* 33.2* 30.3* 30.5* 33.3* 31.0* 32.6* 38.7* PLT 201 179 105* 96* 105* 107* 112* 157 MCV 95.3 94.9 98.1* 96.5* 98.8* 99.7* 96.4* 97.7* COAG: Recent Labs 02/10/18 0545 02/09/18 1405 APTT -- 23.0 INR 1.23 1.24 BMP: Recent Labs 02/16/18 0600 02/15/18 0530 02/14/18 0503 02/13/18 1945 02/13/18 0450 02/12/18 0501 02/11/18 0420 02/10/18 1455 GLUC 110* 137* 143* 113* 107* 109* 104* 97 NA 140 141 140 140 140 141 142 143 K 3.9 4.0 4.7 3.5 3.7 3.9 4.3 4.0 CHLOR 112* 112* 109* 110* 110* 113* 112* 113* CO2 28 26 23 25 23 25 25 26 ANION 4* 7* 13 9 11 7* 9 8 BUN 32* 20* 19* 20* 21* 29* 25* 17 CREAT 0.84 0.83 0.78 0.93 0.86 1.19* 1.34* 1.01 CHEM: Recent Labs 02/16/18 0600 02/15/18 0530 02/14/18 0503 02/13/18 1945 02/13/18 0450 02/12/18 0501 02/11/18 0420 02/10/18 1455 02/10/18 0545 02/09/18201402/09/18 1405 ALB -- -- -- -- -- -- -- -- -- -- 2.5* TPROT -- -- -- -- -- -- -- -- -- -- 5.2* CA 8.1* 8.2* 8.2* 8.0* 8.0* 8.2* 8.3* 8.1* 7.7* 7.8* 7.9* MG -- -- -- 2.2 -- -- 2.6 2.5 2.3 1.9 1.8 ICAL -- -- -- -- -- -- -- 4.73 -- 4.64 -- HEPATIC: Recent Labs 02/09/18 1405 ALKPHOS 64 ALT 30 AST 88* TBILI 0.6 URINALYSIS: Recent Labs 02/13/18 1945 02/10/18 0819 02/10/18 0547 02/09/18201402/09/18 1738 02/09/18 1400 02/09/18 1252 02/09/18 1217 PH 7.310* 7.392 7.385 7.267* 7.261* 7.193* 7.236* 7.372 Assessment/Plan ASSESSMENT: ACTIVE PROBLEM LIST Inguinal Hernia Without Mention of Obstruction Or Gangrene, Unilateral Or Unspecified, (Not Specified As Recurrent) Nstemi (Non-St Elevated Myocardial Infarction) (Hcc) Nsvt (Nonsustained Ventricular Tachycardia) (Hcc) Nicotine use disorder, F17.2 S/P CABG, POD #7 Acute exacerbation of COPD secondary to HCAP Acute hypoxic respiratory failure PLAN: Continue full ventilator support. Attempting to wean though his respiratory rate on the ventilator is 28-30 times/minute at times. He lasted less than an hour on CPAP/PS two consecutive days due to worsening tachypnea, dyspnea, and paradoxical respiratory motion. Patient will need to undergo tracheostomy and PEG tube placement if he is not extubated by Tuesday. Continue bronchodilators. Finish antibiotic course. Patient has no need for steroids at this time as the patient has no active bronchospasm currently. Will avoid steroids as much as possible given his post-operative state. Hemodynamically stable off pressors. Continue chest tube management as per Cardiovascular/Thoracic Surgery. Finally tolerating low rate tube feeds therefore will increase to goal rate slowly as tolerated. Continue Reglan 10 mg IV every 6 hours. Continue supportive care. This patient has a high probability of sudden, clinically significant deterioration, which requires the highest level of physician preparedness to intervene urgently. I managed/supervised life or organ supporting interventions that required frequent physician assessment. I devoted my full attention to the direct care of this patient for the amount of time indicated below. Time I spent with family or surrogate(s) is included only if the patient was incapable of providing the necessary information or participating in medical decision making. Time devoted to teaching and to any procedures I billed separately is not included. PROGNOSIS: Fair Code status: Full Code. Discussed with Registered Nurse, ORAL AND MAXILLOFACIAL SURGEON, PharmD, and Yg Owen (Cardiovascular/Thoracic Surgery PUBLIC ADDRESS SERVICER). Critical Care Documentation: The patient has the following organ/system impairment(s): Respiratory failure (Acute, with Hypoxemia) and coronary artery disease Time spent providing critical care services: 35 minutes. SIGNATURE: Keon Chance MD [facility] PAGER:[phone] DATE of SERVICE: February 16, 2018 TIME of SERVICE: 11:13 AM Beata Marin MD 02/16/2018 6:47 PM Addendum CARDIOTHORACIC SURGERY POSTOP PROGRESS NOTE SERVICE DATE: 02/16/2018 SERVICE TIME: 11:21 AM Subjective S/P SURGERY: Procedure(s) (LRB): BYPASS GRAFT ARTERY CORONARY ON-PUMP SINGLE CORONARY ARTERIAL GRAFT (N/A) BYPASS GRAFT ARTERY CORONARY ON-PUMP USING VENOUS GRAFT(S) AND ARTERIAL GRAFT(S); TWO VENOUS GRAFTS (N/A) ENDOSCOPIC HARVEST VEIN FOR CORONARY ARTERY BYPASS PROCEDURE (N/A) DATE OF SURGERY: 02/09/2018 POSTOP DAY #6 LOS: 9 INTERVAL EVENTS / PERTINENT ROS: Still on vent. Did not tolerate CPAP trial; agitated and tachypneic. Objective Admission Weight: 104.3 kg (229 lb 15 oz) BP 126/78 Pulse 78 Temp 37 ?C (98.6 ?F) (High Thermistor) Resp 12 Ht 180.3 cm (5' 10.98) Wt 110.2 kg (242 lb 15.2 oz) SpO2 93% BMI 33.9 kg/m2 Body surface area is 2.35 meters squared. Min/Max/Average Temperature AND Blood Pressure: Temp (24hrs), Av.1 ?C (98.8 ?F), Min:36.9 ?C (98.4 ?F), Max:37.4 ?C (99.3 ?F) Systolic (24hrs), Av , Min:126 , Max:126 Diastolic (24hrs), Av, Min:78, Max:78 Intake/Output Summary (Last 24 hours) at 02/16/18 1121 Last data filed at 02/16/18 0900 Gross per 24 hour Intake 1537.7 ml Output 1487 ml Net 50.7 ml TELEMETRY: normal sinus rhythm PHYSICAL EXAM: General Appearance: well developed and sedated on vent Skin: Midsternal incision dry AND intact. and SVG incisions dry AND intact. Lungs: clear and respiratory effort: normal; large amt thick sputum suctioned by pr intern: regular rhythm, S1, S2 normal and pacing wires present Abdomen: soft and bowel sounds present Genitourinary: High intact, urine color is clear yellow. Extremities: edema: 1+, bilateral LE Lines, Drains, and Airways Line Peripheral 02/08/18 0100 Short Right Arm 20 Gauge 8 days Arterial Line 02/09/18 0830 Arterial Line Left Radial 7 days Central Line Double Lumen 02/09/18 0845 Non-tunneled Right Neck 7 days Peripheral 02/09/18 0820 Left Forearm 16 Gauge 7 days Drain GI Feed/Drain 02/09/18 0800 Oral Gastric Midline 7 days Indwelling Urinary Catheter 02/09/18 0838 Temperature Monitoring 16 Fr 7 days Airway Airway Endotracheal Tube 02/09/18 0800 7 days DATA: Diagnostic tests reviewed for today's visit: Recent Labs 02/16/18 0600 02/15/18 0530 02/14/18 0503 02/13/18 1945 RBC 3.41* 3.50* -- -- WBC 10.92* 10.27* -- -- HB 10.9* 11.3* -- -- HCT 32.5* 33.2* -- -- PLT 201 179 -- -- NA 140 141 140 140 K 3.9 4.0 4.7 3.5 CHLOR 112* 112* 109* 110* CO2 28 26 23 25 BUN 32* 20* 19* 20* CREAT 0.84 0.83 0.78 0.93 GLUC 110* 137* 143* 113* CA 8.1* 8.2* 8.2* 8.0* MG -- -- -- 2.2 ANION 4* 7* 13 9 Recent Labs 02/13/181944 PH 7.310* PCO2 51.4* PO2 79.6* BE -1.3 Assessment/Plan Acute NSTEMI s/p CABG x 3 -POD#6 -c/w ASA, statin, BB -Post thorax vest ?? Acute hypoxic AND hypercapneic respiratory failure 2/2 severe COPD and PNA -Vent management per pulmonary service ?? Klebsiella and E. coli HCAP -On ceftriaxone ? Oral Thrush -c/w nystatin ?? Volume Overload -c/w Lasix IV 20mg daily ? Constipation -c/w miralax and senokot-s -Resolved with mag citrate ? Nutrition -Tolerating TF today; minimal residuals ? DVT ppx -Lovenox and SCDs Tests/Labs Ordered: 1. BMP 2. CBC SIGNATURE: Clementine Owen APRN.CNP PATIENT NAME: Jeffrey Cullen DATE: February 16, 2018 TIME: 11:21 AM PAGER/CONTACT #: [phone] [phone] Patient seen w PA earlier today. afib recurring. Labs, data, and careplan reviewed. P-as ordered. Previous Version Angelica Malcolm, RN, RN 02/16/2018 2:38 PM Signed Pt remains intubated, hoping to go to [facility] at nm. Indu Frederick, RN, RN 02/17/2018 11:16 AM Signed CARE MANAGEMENT PROGRESS NOTE SERVICE DATE: 02/17/2018 SERVICE TIME: 11:11 AM LOS: 10 days Needs Prior to Discharge: To Be Determined;OT/PT Evaluation;Accepting Facility;Discharge Transportation Chart reviewed. Remains in [facility] intubated, sedated on vent. Continues IV Cardizem. [facility] following for possible placement when medically stable. Will continue to follow clinical course for further DC planning. SIGNATURE: Indu Frederick RN PATIENT NAME: Jeffrey Cullen DATE: February 17, 2018 TIME: 11:11 AM PAGER/CONTACT #: [phone] Keon Chance MD 02/17/2018 11:59 AM Signed CRITICAL CARE PROGRESS NOTE SERVICE DATE: February 17, 2018 SERVICE TIME: 11:45 AM Admission Date: 02/07/2018 AGE: [age] year old LOS: 10 days REASON FOR ICU ADMISSION: ACTIVE PROBLEM LIST Inguinal Hernia Without Mention of Obstruction Or Gangrene, Unilateral Or Unspecified, (Not Specified As Recurrent) Nstemi (Non-St Elevated Myocardial Infarction) (Hcc) Nsvt (Nonsustained Ventricular Tachycardia) (Hcc) Nicotine use disorder, F17.2 Subjective OVERNIGHT EVENTS: Patient is resting comfortably in bed while sedated and intubated/on the ventilator without any current distress. Objective VITAL SIGNS (last 24hrs min/max): Temp Av.4 ?C (99.3 ?F) Min: 36.5 ?C (97.7 ?F) Max: 37.8 ?C (100 ?F) Pulse Av.3 Min: 69 Max: 97 Cuff No Data Recorded Pain Score: 0/10 24 hour Intake AND Output: Intake/Output Summary (Last 24 hours) at 02/17/18 1145 Last data filed at 02/17/18 1000 Gross per 24 hour Intake 1522.3 ml Output 2895 ml Net -1372.7 ml PHYSICAL EXAM: RRR Few scattered crackles bilaterally without wheezing bilaterally anteriorly. Scattered bowel sounds (gradually increasing), soft, nontender, less distended than 02/14- exam (and about the same as my 02/16 exam). No pedal edema bilaterally. Poor turgor, but dry, intact skin. VENTILATOR INFORMATION: WEANING DATA: Settings: Invasive Ventilator Mode: Pressure Regulated Volume Control (02/17/18 0915) %FIO2: 40 Set Ventilator Respiratory Rate (BPM): 15 Tidal Volume Set (mL): 550 PEEP/CPAP (cm H2O): 5 Patient Data: Inspiratory:Expiratory Ratio: 1:3.4 Peak Inspiratory Pressure (cm H2O): 19 Plateau Pressure (cm H2O): 13 Weaning Data: Spontaneous Respiratory Rate (BPM): 30 INPATIENT MEDICATIONS: Current hospital medications: lidocaine 10 mg/mL (1 %) 10-20 mg injection (XYLOCAINE) 1- 2 mL INTRADERMAL ONCE 0.9% NaCl 10 mL 10 mL INTRAVENOUS q 12 H 0.9% NaCl 20 mL 20 mL INTRAVENOUS PRN lidocaine 10 mg/mL (1 %) 10-20 mg injection (XYLOCAINE) 1- 2 mL INTRADERMAL ONCE 0.9% NaCl 10 mL 10 mL INTRAVENOUS q 12 H 0.9% NaCl 20 mL 20 mL INTRAVENOUS PRN metoprolol tartrate (short acting) (LOPRESSOR) tab(s) 75 mg 75 mg ORAL q 8 H enoxaparin 105 mg injection (LOVENOX) 1 mg/kg/dose SUBCUTANEOUS q 12 HR fentaNYL iv infusion 20 mcg/mL in NaCl 0.9% 100 mL 25 mcg/hr INTRAVENOUS CONTINUOUS dilTIAZem 100 mg in D5W 100 mL ADD-Boyden (CARDIZEM) 5-15 mg/hr INTRAVENOUS CONTINUOUS nystatin 5 mL oral liquid (MYCOSTATIN) 5 mL ORAL QID metoclopramide HCl 10 mg injection (REGLAN) 10 mg INTRAVENOUS q 6 H LORazepam 2 mg injection (ATIVAN) 2 mg INTRAVENOUS q 4 H PRN dextrose 40 % 15 g 15 g ORAL PRN glucagon 1 mg injection (GLUCAGEN) 1 mg INTRAMUSCULAR PRN dextrose 50% in water 25 mL syringe 12.5 g INTRAVENOUS PRN insulin regular human injection (short acting) (NovoLIN R,HumuLIN R) SUBCUTANEOUS q 6 H bisacodyl 10 mg suppository (DULCOLAX) 10 mg RECTAL DAILY PRN polyethylene glycol 3350 17 g packet (MIRALAX, GLYCOLAX) 17 g ORAL DAILY senna-docusate 8.6-50 mg 1 tablet (SENNA-S) 1 tablet ORAL BID pill splitter (patient-specific) 1 Each Miscell. (Med.Supl.;Non- Drugs) PRN Chlorhexidine Gluconate 0.12 % 15 mL (PERIDEX) 15 mL ORAL q 12 H budesonide 0.5 mg/2 mL 1 mg (PULMICORT) 1 mg INHALATION BID acetaminophen 650 mg tab(s) (TYLENOL) 650 mg ORAL q 6 H PRN aspirin 81 mg chewable tab(s) 81 mg ORAL DAILY dextrose 50% in water 25 mL syringe 12.5 g INTRAVENOUS PRN potassium chloride iv piggyback 20 mEq in sterile water 100 mL 20 mEq INTRAVENOUS PRN magnesium sulfate in water 2 g in sterile water 50 ml 2 g INTRAVENOUS PRN(NO DISPENSE) albuterol 2.5 mg /3 mL (0.083 %) 2.5 mg (PROVENTIL) 2.5 mg INHALATION q 2 H PRN calcium chloride 1 g in D5W 100 mL 1 g INTRAVENOUS PRN(NO DISPENSE) oxyCODONE-acetaminophen 5-325 mg 1-2 tablet (PERCOCET) 1-2 tablet ORAL q 4 H PRN morphine 2-4 mg injection 2-4 mg INTRAVENOUS q 1 H PRN pantoprazole 40 mg injection (PROTONIX) 40 mg INTRAVENOUS DAILY (6 AM) ondansetron (PF) 4 mg injection (ZOFRAN) 4 mg INTRAVENOUS q 6 H PRN propofol infusion (DIPRIVAN) 5-50 mcg/kg/min INTRAVENOUS CONTINUOUS ipratropium-albuterol 3 mL nebulizer solution (DUONEB) 3 mL INHALATION q 4 H atorvastatin 40 mg tab(s) (LIPITOR) 40 mg ORAL AT BEDTIME 0.9% NaCl 3-5 mL 3-5 mL INTRAVENOUS q 12 H DATA: BLOOD GAS: Recent Labs 02/13/18 1945 RESPHCO3 25.1 PH 7.310* PCO2 51.4* [id number] 94.0* CBC: Recent Labs 02/17/18 1000 02/16/18 0600 02/15/18 0530 02/13/18 0450 02/12/18 0501 02/11/18 0420 02/10/18 1455 WBC 11.32* 10.92* 10.27* 7.83 11.10* 15.13* 14.16* HB 11.7* 10.9* 11.3* 10.0* 10.2* 10.9* 10.1* HCT 35.0* 32.5* 33.2* 30.3* 30.5* 33.3* 31.0* PLT 221 201 179 105* 96* 105* 107* MCV 95.9* 95.3 94.9 98.1* 96.5* 98.8* 99.7* COAG: No results for input(s): APTT, INR in the last 168 hours. BMP: Recent Labs 02/17/18 1000 02/16/18 0600 02/15/18 0530 02/14/18 0503 02/13/18 1945 02/13/18 0450 02/12/18 0501 02/11/18 0420 GLUC 123* 110* 137* 143* 113* 107* 109* 104* NA 145 140 141 140 140 140 141 142 K 4.1 3.9 4.0 4.7 3.5 3.7 3.9 4.3 CHLOR 110* 112* 112* 109* 110* 110* 113* 112* CO2 31 28 26 23 25 23 25 25 ANION 8 4* 7* 13 9 11 7* 9 BUN 36* 32* 20* 19* 20* 21* 29* 25* CREAT 0.88 0.84 0.83 0.78 0.93 0.86 1.19* 1.34* CHEM: Recent Labs 02/17/18 1000 02/16/18 0600 02/15/18 0530 02/14/18 0503 02/13/18194402/13/18 0450 02/12/18 0501 02/11/18 0420 02/10/18 1455 CA 8.1* 8.1* 8.2* 8.2* 8.0* 8.0* 8.2* 8.3* 8.1* MG 2.5 -- -- -- 2.2 -- -- 2.6 2.5 ICAL -- -- -- -- -- -- -- -- 4.73 HEPATIC: No results for input(s): ALKPHOS, ALT, AST, TBILI, LIPASE in the last 168 hours. URINALYSIS: Recent Labs 02/13/181944 PH 7.310* Assessment/Plan ASSESSMENT: ACTIVE PROBLEM LIST Inguinal Hernia Without Mention of Obstruction Or Gangrene, Unilateral Or Unspecified, (Not Specified As Recurrent) Nstemi (Non-St Elevated Myocardial Infarction) (Hcc) Nsvt (Nonsustained Ventricular Tachycardia) (Hcc) Nicotine use disorder, F17.2 S/P CABG, POD # 8 Acute exacerbation of COPD secondary to HCAP Acute hypoxic respiratory failure PLAN: Continue full ventilator support. Attempting to wean though his respiratory rate on the ventilator is 28-30 times/minute at times. He lasted less than an hour on CPAP/PS two consecutive days due to worsening tachypnea, dyspnea, and paradoxical respiratory motion, but he is back on CPPA/PS again this morning. Patient will need to undergo tracheostomy and PEG tube placement if he is not extubated by Tuesday (. Continue bronchodilators. Finish antibiotic course. Patient has no need for steroids at this time as the patient has no active bronchospasm currently. Will avoid steroids as much as possible given his post-operative state. Has remained hemodynamically stable off pressors. Continue chest tube management as per Cardiovascular/Thoracic Surgery. Finally tolerating tube feeds at goal rate. Continue Reglan 10 mg IV every 6 hours. Continue supportive care. This patient has a high probability of sudden, clinically significant deterioration, which requires the highest level of physician preparedness to intervene urgently. I managed/supervised life or organ supporting interventions that required frequent physician assessment. I devoted my full attention to the direct care of this patient for the amount of time indicated below. Time I spent with family or surrogate(s) is included only if the patient was incapable of providing the necessary information or participating in medical decision making. Time devoted to teaching and to any procedures I billed separately is not included. PROGNOSIS: Fair Code status: Full Code. Discussed with Registered Nurse, PharmD, and Yg Owen (Cardiovascular/Thoracic Surgery PUBLIC ADDRESS SERVICER). Critical Care Documentation: The patient has the following organ/system impairment(s): Respiratory failure (Acute, with Hypoxemia) and coronary artery disease Time spent providing critical care services: 35 minutes. SIGNATURE: Keon Chance MD [facility] PAGER:[id number] DATE of SERVICE: February 17, 2018 TIME of SERVICE: 11:45 AM HEATHER Driscoll/Fara 02/17/2018 11:44 AM Signed OCCUPATIONAL THERAPY MISSED VISIT SERVICE DATE: 02/17/2018 SERVICE TIME: 1142 to 1142 ROOM: [id number] Attempted Evaluation. Patient not seen due to remains sedated, on Ventilator. Will discontinue OT order at this time. Please reorder as needed when medically stable and able to participate. SIGNATURE: HEATHER Driscoll/Fara PATIENT NAME: Jeffrey Cullen DATE: February 17, 2018 TIME: 11:43 AM PAGER/CONTACT #:[phone] KEON Ricci 02/17/2018 2:34 PM Signed CARDIOTHORACIC SURGERY POSTOP PROGRESS NOTE SERVICE DATE: 02/17/2018 SERVICE TIME: 11:44 AM Subjective S/P SURGERY: Procedure(s) (LRB): BYPASS GRAFT ARTERY CORONARY ON-PUMP SINGLE CORONARY ARTERIAL GRAFT (N/A) BYPASS GRAFT ARTERY CORONARY ON-PUMP USING VENOUS GRAFT(S) AND ARTERIAL GRAFT(S); TWO VENOUS GRAFTS (N/A) ENDOSCOPIC HARVEST VEIN FOR CORONARY ARTERY BYPASS PROCEDURE (N/A) DATE OF SURGERY: 02/09/2018 POSTOP DAY #8 LOS: 10 INTERVAL EVENTS / PERTINENT ROS: Patient still intubated and sedated. PICC line ordered today. Need to remove cordis once PICC in place. Tolerating tube feeds. Still having episodes of A-fib despite diltiazem drip. Objective Admission Weight: 104.3 kg (229 lb 15 oz) BP 126/78 Pulse 81 Temp 37.5 ?C (99.5 ?F) Resp 15 Ht 180.3 cm (5' 10.98) Wt 110.4 kg (243 lb 6.2 oz) SpO2 94% BMI 33.96 kg/m2 Body surface area is 2.35 meters squared. Min/Max/Average Temperature AND Blood Pressure: Temp (24hrs), Av.2 ?C (98.9 ?F), Min:36.6 ?C (97.9 ?F), Max:37.7 ?C (99.9 ?F) No data recorded. No data recorded. Intake/Output Summary (Last 24 hours) at 02/17/18 1144 Last data filed at 02/17/18 1000 Gross per 24 hour Intake 1522.3 ml Output 2895 ml Net -1372.7 ml TELEMETRY: normal sinus rhythm PHYSICAL EXAM: General Appearance: sedated and intubated. Skin: No rash on chest, arms or legs. Warm, dry. Midsternal AND SVG incision dry AND intact, without redness, drainage or edema. Lungs: Slightly coarse to auscultation, thick sputum suctioned from tube per pr intern: regular rhythm, pacing wires present and episodic a- fib despite cardizem drip Abdomen: soft and bowel sounds present Extremities: edema: 1+ Lines, Drains, and Airways Line Peripheral 02/08/18 0100 Short Right Arm 20 Gauge 9 days Arterial Line 02/09/18 0830 Arterial Line Left Radial 8 days Central Line Double Lumen 02/09/18 0845 Non-tunneled Right Neck 8 days Peripheral 02/09/18 0820 Left Forearm 16 Gauge 8 days Drain GI Feed/Drain 02/09/18 0800 Oral Gastric Midline 8 days Indwelling Urinary Catheter 02/09/18 0838 Temperature Monitoring 16 Fr 8 days Airway Airway Endotracheal Tube 02/09/18 0800 8 days DATA: Recent Labs 02/17/18 1000 02/16/18 0600 02/15/18 0530 RBC 3.65* 3.41* 3.50* WBC 11.32* 10.92* 10.27* HB 11.7* 10.9* 11.3* HCT 35.0* 32.5* 33.2* PLT 221 201 179 NA 145 140 141 K 4.1 3.9 4.0 CHLOR 110* 112* 112* CO2 31 28 26 BUN 36* 32* 20* CREAT 0.88 0.84 0.83 GLUC 123* 110* 137* CA 8.1* 8.1* 8.2* MG 2.5 -- -- P 3.5 -- -- ANION 8 4* 7* Assessment/Plan Acute NSTEMI s/p CABG x 3 -POD#8 -increase ASA to 162, statin, BB -Post thorax vest -d/c cordis -PICC placed today -lovenox for dual anticoagulation. No plavix until PEG/Trach placement ?? Acute hypoxic AND hypercapneic respiratory failure 2/2 severe COPD and PNA -Vent management per pulmonary service Afib -continue Diltiazem, switch to PO ?? Klebsiella and E. coli HCAP -On ceftriaxone ?? Oral Thrush -c/w nystatin ?? Volume Overload -c/w lasix 40 PO BID ?? Constipation -c/w miralax and senokot-s -Resolved with mag citrate ? Nutrition -Tolerating TF today; minimal residuals ?? DVT ppx -Lovenox and SCDs ? Tests/Labs Ordered: 1. BMP 2. CBC SIGNATURE: Misti Stein PA-C PATIENT NAME: Jeffrey Cullen DATE: February 17, 2018 TIME: 11:44 AM PAGER/CONTACT #:[phone] ETX [id number] Krystal Joseph, RN, RN 02/17/2018 1:22 PM Signed PICC NURSE INSERTION NOTE DATE OF PROCEDURE: February 17, 2018 TIME OF PROCEDURE: 1220pm ORDERING PHYSICIAN: berkley INFORMED CONSENT: Obtained per hospital policy. INDICATION FOR LINE PLACEMENT: Incompatible drugs/need more lines available IV therapy over six days PH/Osmolality CONDITION OF LINE PLACEMENT: Sterile PRIMARY PROCEDURALIST: Krystal Joseph RN RIGHT OF WAY CLEARER: N/A PRE-PROCEDURE REVIEW ALLERGIES No Known Allergies Known History of Venous Thrombosis: No Known History of Permanent Pacemaker or Automated Implanted Cardiac Device: No Previous Breast Surgery of Lymph Node Dissection: No History of Renal Disease with Arterio-Venous Fistula in Place or Planned: No Ultrasound Assessment Complete: Yes PROCEDURE NARRATIVE SAFE PRACTICE Hand Hygiene per Hospital Policy: Yes Skin Preparation Unit Dose Applicator Used: Chloraprep (CHG + alcohol), allowed to dry. Procedure Surface Cleansed with Antimicrobial Wipes: Yes Barriers Used by Proceduralist and all Assisting Personnel: Yes UNIVERSAL PROTOCOL / SAFETY CHECKLIST Procedure to be performed: picc Sign in Communication: Completed Time Out: Team Confirms the Correct Patient, Correct Procedure, Correct Site and Site Marking, Correct Position (if applicable), Prep and Dry Time (if applicable). Time: 1220 Affirmation of Time Out: N/A Sign Out Discussion: Completed Krystal Joseph RN CATHETER PLACEMENT Brand: Rated People Lot: [id number] Number of Lumens: 2 Type of PICC: Power Injectable PICC Lumen Size: 5 Vietnamese PLACEMENT TECHNIQUE Lidocaine: Yes. Strength: 1% Volume 0.5cc Modified Seldinger Technique Used to Place Line via the Right Basilic Ultrasound Guidance: Yes Number of Attempts at Insertion: 1 Internal Length: 47 cm External Length: 2 cm Trim Length: 49 cm Mid-Arm Circumference Above Insertion Site: 34 centimeters Post Insertion Pain Level Related to Procedure: 0 Action Taken to Address Pain: None needed Verified Placement: Blood return, Ultrasound and Tip location system or device indicates the tip is located in the SVC/CAJ. Line was Flushed with 20 cc normal saline Line Secured with: Securement device Sterile Dressing Applied and Dated: Yes Sterile Caps on all Ports Prior to Leaving Procedure Area: Yes SPECIMENS: None COMPLICATIONS: None Patient Education Materials: Placed in chart All aspects of CDC bundle observed for PICC insertion. QUESTIONS or PROBLEMS: Call [phone] SIGNATURE: Krystal Jsoeph RN PATIENT NAME: Jeffrey Cullen DATE: February 17, 2018 TIME: 1:18 PM PAGER/CONTACT PHONE: Jayla Pineda RN, RN 02/17/2018 1:24 PM Signed PATIENT EDUCATION TOPIC: PROCEDURE / SURGERY: Procedure/Surgery: PICC Insertion PATIENT NAME: Jeffrey Cullen PATIENT LOCATION: [place] [address] [address]* READINESS TO LEARN COGNITIVE ABILITY: On vent MOTIVATION TO LEARN: Critically Ill FAMILY SUPPORT: Unable to assess - Family not present INSTRUCTION PROVIDED TO: Family member PATIENT LEARNS BEST BY: N/A FACTORS AFFECTING LEARNING: None Unable to assess PHYSICAL LIMITATIONS AFFECTING LEARNING: Critically ill LEARNING RESPONSE DIAGNOSIS: ADULT: access PATIENT/FAMILY RESPONSE: Verbalizes understanding of: POST-PROCEDURE INSTRUCTIONS-Correct actions to take to reduce post procedure complications PRE-PROCEDURE INSTRUCTIONS-Correct action to take to follow pre-procedure instructions METHOD OF INSTRUCTION: Verbal instruction FOLLOW-UP PLAN: Complete - No need for follow-up INSTRUCTIONAL AIDS USED: Pamphlet SUPPLEMENTAL MATERIAL PROVIDED TO PATIENT: None REFERRAL (RECOMMENDATION): None Electronically Signed By: RAINA Etienne Sr, Chaplain, Chaplain 02/17/2018 10:01 PM Signed SPIRITUAL CARE PROGRESS NOTE SERVICE DATE: 02/17/2018 SERVICE TIME: 0626 PM Pt is intubated and resting peacefully. I left a compassionate note on the small table for the patient/family/friends. To contact the Spiritual Care Department: Please call 00 SIGNATURE: Chaplain Krystle PATIENT NAME: Jeffrey Cullen DATE: February 17, 2018 TIME: 10:00 PM PAGER/CONTACT #: [phone] Krystal Miller APRN.CNS 02/18/2018 9:37 AM Signed MICU - PROGRESS NOTE SERVICE DATE: 02/18/2018 SERVICE TIME: 9:26 AM Admission Date: 02/07/2018 AGE: [age] year old LOS: 11 days Subjective REASON FOR ICU ADMISSION: Respiratory Failure Objective PROBLEMS: ACTIVE PROBLEM LIST Inguinal Hernia Without Mention of Obstruction Or Gangrene, Unilateral Or Unspecified, (Not Specified As Recurrent) Nstemi (Non-St Elevated Myocardial Infarction) (Hcc) Nsvt (Nonsustained Ventricular Tachycardia) (Hcc) Nicotine use disorder, F17.2 No past medical history on file. PAST SURGICAL HISTORY Procedure Laterality Date - ORTHOPEDICS SURGERY HX - REPAIR ING HERNIA,5+Y/O,REDUCIBL 1990 Hernia repair, inguinal,left Social History Marital status: Single Spouse name: Years of education: Number of children: Social History Main Topics Smoking status: Current Every Day Smoker Packs/day: 2.00 Years: 25.00 Types: Cigarettes Alcohol use: No Drug use: No Sexual activity: Yes Partners with: Female Other Topics Concern Service No Blood Transfusions No Caffeine Concern No Occupational Exposure No Hobby Hazards No Sleep Concern No Stress Concern No Weight Concern No Special Diet No Back Care No Exercise No Bike Helmet No Seat Belt No Self-Exams No VITAL SIGNS (last 24hrs min/max): Temp Av.4 ?C (99.3 ?F) Min: 37.3 ?C (99.1 ?F) Max: 37.5 ?C (99.5 ?F) Pulse Av.8 Min: 70 Max: 114 Arterial BP 1 Min: 84/46 Max: 158/67 Cuff No Data Recorded Pain Score: 0/10 Vital signs reviewed. BP 126/78 Pulse 99 Temp (Src) 99.1 (High Thermistor) Resp 16 Ht 5' 10.984 (1.80m) Wt 242 lb 8.1 oz (110.0kg) SpO2 93% BMI 33.84 kg/(m2). Temp (24hrs), Av.4 ?C (99.3 ?F), Min:37.3 ?C (99.1 ?F), Max:37.5 ?C (99.5 ?F) NET FLUID BALANCE Intake/Output Summary (Last 24 hours) at 02/18/18 0926 Last data filed at 02/18/18 0900 Gross per 24 hour Intake 2680.5 ml Output 1633 ml Net 1047.5 ml MEDICATIONS Current Facility-Administered Medications: 0.9% NaCl 20 mL 20 mL INTRAVENOUS PRN 0.9% NaCl 10 mL 10 mL INTRAVENOUS q 12 H 0.9% NaCl 20 mL 20 mL INTRAVENOUS PRN furosemide 40 mg oral liquid CUP (LASIX) 40 mg ORAL BID 9a/5p aspirin 162 mg chewable tab(s) 162 mg ORAL DAILY metoprolol tartrate (short acting) (LOPRESSOR) tab(s) 75 mg 75 mg ORAL q 8 H enoxaparin 105 mg injection (LOVENOX) 1 mg/kg/dose SUBCUTANEOUS q 12 HR fentaNYL iv infusion 20 mcg/mL in NaCl 0.9% 100 mL 25 mcg/hr INTRAVENOUS CONTINUOUS dilTIAZem 100 mg in D5W 100 mL ADD-Boyden (CARDIZEM) 5-15 mg/hr INTRAVENOUS CONTINUOUS nystatin 5 mL oral liquid (MYCOSTATIN) 5 mL ORAL QID metoclopramide HCl 10 mg injection (REGLAN) 10 mg INTRAVENOUS q 6 H LORazepam 2 mg injection (ATIVAN) 2 mg INTRAVENOUS q 4 H PRN dextrose 40 % 15 g 15 g ORAL PRN Or glucagon 1 mg injection (GLUCAGEN) 1 mg INTRAMUSCULAR PRN Or dextrose 50% in water 25 mL syringe 12.5 g INTRAVENOUS PRN insulin regular human injection (short acting) (NovoLIN R,HumuLIN R) SUBCUTANEOUS q 6 H bisacodyl 10 mg suppository (DULCOLAX) 10 mg RECTAL DAILY PRN polyethylene glycol 3350 17 g packet (MIRALAX, GLYCOLAX) 17 g ORAL DAILY senna-docusate 8.6-50 mg 1 tablet (SENNA-S) 1 tablet ORAL BID pill splitter (patient-specific) 1 Each Miscell. (Med.Supl.;Non- Drugs) PRN Chlorhexidine Gluconate 0.12 % 15 mL (PERIDEX) 15 mL ORAL q 12 H budesonide 0.5 mg/2 mL 1 mg (PULMICORT) 1 mg INHALATION BID acetaminophen 650 mg tab(s) (TYLENOL) 650 mg ORAL q 6 H PRN dextrose 50% in water 25 mL syringe 12.5 g INTRAVENOUS PRN potassium chloride iv piggyback 20 mEq in sterile water 100 mL 20 mEq INTRAVENOUS PRN magnesium sulfate in water 2 g in sterile water 50 ml 2 g INTRAVENOUS PRN(NO DISPENSE) albuterol 2.5 mg /3 mL (0.083 %) 2.5 mg (PROVENTIL) 2.5 mg INHALATION q 2 H PRN calcium chloride 1 g in D5W 100 mL 1 g INTRAVENOUS PRN(NO DISPENSE) oxyCODONE-acetaminophen 5-325 mg 1-2 tablet (PERCOCET) 1-2 tablet ORAL q 4 H PRN morphine 2-4 mg injection 2-4 mg INTRAVENOUS q 1 H PRN pantoprazole 40 mg injection (PROTONIX) 40 mg INTRAVENOUS DAILY (6 AM) ondansetron (PF) 4 mg injection (ZOFRAN) 4 mg INTRAVENOUS q 6 H PRN propofol infusion (DIPRIVAN) 5-50 mcg/kg/min INTRAVENOUS CONTINUOUS ipratropium-albuterol 3 mL nebulizer solution (DUONEB) 3 mL INHALATION q 4 H atorvastatin 40 mg tab(s) (LIPITOR) 40 mg ORAL AT BEDTIME Lines, Drains, and Airways Line Arterial Line 02/09/18 0830 Arterial Line Left Radial 9 days Central Line Double Lumen 02/17/18 1310 Peripherally Inserted (PICC) Right Arm 5.0 Vietnamese less than 1 day Drain GI Feed/Drain 02/09/18 0800 Oral Gastric Midline 9 days Indwelling Urinary Catheter 02/09/18 0838 Temperature Monitoring 16 Fr 9 days Airway Airway Endotracheal Tube 02/09/18 0800 9 days PHYSICAL EXAM PERFORMED: Cardiovascular: Irregular rhythm Atrial fib Respiratory: Rhonchi bilat %FIO2 Min: 40 Max: 40 Abdomen: Soft Extremities: Edema- Yes Generalized edema Neurologic: Sedated on ventilator Respiratory/Nursing Documentation: O2 Therapy: Ventilator (02/18/18827) Invasive Ventilator Mode: Pressure Regulated Volume Control (02/18/18827) Set Ventilator Respiratory Rate (BPM): 15 (02/18/18827) Total Respiratory Rate (BPM): 19 (02/18/18827) Tidal Volume Set (mL): 550 (02/18/18827) Exhaled Tidal Volume (mL): 726 (02/18/18827) Minute Volume (L): 12 (02/18/18827) Peak Inspiratory Pressure (cm H2O): 13 (02/18/18827) PEEP/CPAP (cm H2O): 5 (02/18/18827) HEMODYNAMIC DATA: Reviewed NUTRITION: Enteral Feeds: Yes Tube Feeds Impact peptide at 47ml/hr DATA: Diagnostic tests reviewed for today's visit, films/specimens were personally reviewed by me: Most recent labs and imaging results. LABS: Recent Labs 02/18/18 0520 02/17/18 1000 WBC 10.99* 11.32* RBC 3.61* 3.65* HB 11.6* 11.7* HCT 35.4* 35.0* MCV 98.1* 95.9* PLT 235 221 GLUC 122* 123* BUN 40* 36* CREAT 0.88 0.88 NA 146* 145 K 3.7 4.1 CHLOR 110* 110* CO2 30 31 CA 8.3* 8.1* MG -- 2.5 ABG: Assessment/Plan IMPRESSION: Critical Care Documentation: The patient has the following organ/system impairment(s): Respiratory failure (with Hypoxemia) 1. SP CABG POD #9 2.Acute COPD exacerbation 2/2 HCAP Klebsiella and E. Coli HCAP 3.Atrial fib-continue IV Cardiazem 4. Plan trach and PEG if unable to wean from ventilator within next 48hrs 5. Volume overload-lasix 40mg BID 6. Fentanyl drip at 24 mcg/hr This patient has a high probability of sudden, clinically significant deterioration, which requires the highest level of physician preparedness to intervene urgently. I managed/supervised life or organ supporting interventions that required frequent physician assessment. I devoted my full attention to the direct care of this patient for the amount of time indicated below. Time I spent with family or surrogate(s) is included only if the patient was incapable of providing the necessary information or participating in medical decision making. Time devoted to teaching is not included. Discussed with staff/patient/family Time spent providing critical care services: 40 minutes excluding procedures. SIGNATURE: Krystal Miller APRN.BEHAVIORAL HEALTH CONSULTANT PATIENT NAME: Jeffrey Cullen DATE: February 18, 2018 TIME: 9:26 AM Beata Marin MD 02/18/2018 11:34 AM Signed S-still on vent w/o much change O-still in and out of afib Labs noted CXR +/- A-Stable but not improving P-adjust meds, on therapeutic lovenox, check head CT Evelin Coronado MD 02/18/2018 3:05 PM Signed CRITICAL CARE PROGRESS NOTE SERVICE DATE: February 18, 2018 SERVICE TIME: 2:56 PM Admission Date: 02/07/2018 AGE: [age] year old LOS: 11 days REASON FOR ICU ADMISSION: ACTIVE PROBLEM LIST Inguinal Hernia Without Mention of Obstruction Or Gangrene, Unilateral Or Unspecified, (Not Specified As Recurrent) Nstemi (Non-St Elevated Myocardial Infarction) (Hcc) Nsvt (Nonsustained Ventricular Tachycardia) (Hcc) Nicotine use disorder, F17.2 F/U VDRF Subjective OVERNIGHT EVENTS: RN reports pt not tolerating sedation holiday. Becomes agitated and shakes his head to and fro rigorously. Objective VITAL SIGNS (last 24hrs min/max): Temp Av.4 ?C (99.3 ?F) Min: 36.5 ?C (97.7 ?F) Max: 37.8 ?C (100 ?F) Pulse Av.3 Min: 69 Max: 97 Cuff No Data Recorded Pain Score: 0/10 24 hour Intake AND Output: Intake/Output Summary (Last 24 hours) at 02/18/18 1456 Last data filed at 02/18/18 1400 Gross per 24 hour Intake 3264.7 ml Output 1904 ml Net 1360.7 ml PHYSICAL EXAM: GENERAL: well built 67yo WM, sedated, intubated RRR Few scattered crackles bilaterally without wheezing bilaterally anteriorly. Scattered bowel sounds No pedal edema bilaterally. Poor turgor, but dry, intact skin. : high w/ clear roman/yellow. GI: OG in place, TF's @ 47cc/h. VENTILATOR INFORMATION: WEANING DATA: Settings: Invasive Ventilator Mode: Pressure Regulated Volume Control (02/18/18 1300) %FIO2: 40 Set Ventilator Respiratory Rate (BPM): 15 Tidal Volume Set (mL): 550 PEEP/CPAP (cm H2O): 5 Inspiratory Pressure Set (cm H2O): 0.9 Patient Data: Inspiratory:Expiratory Ratio: 1:2.6 Peak Inspiratory Pressure (cm H2O): 12 Plateau Pressure (cm H2O): 14 Weaning Data: Spontaneous Respiratory Rate (BPM): 17.7 INPATIENT MEDICATIONS: Current hospital medications: diltiazem 30 mg tab(s) (CARDIZEM) 30 mg NASOGASTRIC q 6 H 0.9% NaCl 20 mL 20 mL INTRAVENOUS PRN 0.9% NaCl 10 mL 10 mL INTRAVENOUS q 12 H 0.9% NaCl 20 mL 20 mL INTRAVENOUS PRN aspirin 162 mg chewable tab(s) 162 mg ORAL DAILY metoprolol tartrate (short acting) (LOPRESSOR) tab(s) 75 mg 75 mg ORAL q 8 H enoxaparin 105 mg injection (LOVENOX) 1 mg/kg/dose SUBCUTANEOUS q 12 HR fentaNYL iv infusion 20 mcg/mL in NaCl 0.9% 100 mL 25 mcg/hr INTRAVENOUS CONTINUOUS nystatin 5 mL oral liquid (MYCOSTATIN) 5 mL ORAL QID metoclopramide HCl 10 mg injection (REGLAN) 10 mg INTRAVENOUS q 6 H LORazepam 2 mg injection (ATIVAN) 2 mg INTRAVENOUS q 4 H PRN dextrose 40 % 15 g 15 g ORAL PRN glucagon 1 mg injection (GLUCAGEN) 1 mg INTRAMUSCULAR PRN dextrose 50% in water 25 mL syringe 12.5 g INTRAVENOUS PRN insulin regular human injection (short acting) (NovoLIN R,HumuLIN R) SUBCUTANEOUS q 6 H bisacodyl 10 mg suppository (DULCOLAX) 10 mg RECTAL DAILY PRN polyethylene glycol 3350 17 g packet (MIRALAX, GLYCOLAX) 17 g ORAL DAILY senna-docusate 8.6-50 mg 1 tablet (SENNA-S) 1 tablet ORAL BID pill splitter (patient-specific) 1 Each Miscell. (Med.Supl.;Non- Drugs) PRN Chlorhexidine Gluconate 0.12 % 15 mL (PERIDEX) 15 mL ORAL q 12 H budesonide 0.5 mg/2 mL 1 mg (PULMICORT) 1 mg INHALATION BID acetaminophen 650 mg tab(s) (TYLENOL) 650 mg ORAL q 6 H PRN dextrose 50% in water 25 mL syringe 12.5 g INTRAVENOUS PRN potassium chloride iv piggyback 20 mEq in sterile water 100 mL 20 mEq INTRAVENOUS PRN magnesium sulfate in water 2 g in sterile water 50 ml 2 g INTRAVENOUS PRN(NO DISPENSE) albuterol 2.5 mg /3 mL (0.083 %) 2.5 mg (PROVENTIL) 2.5 mg INHALATION q 2 H PRN calcium chloride 1 g in D5W 100 mL 1 g INTRAVENOUS PRN(NO DISPENSE) oxyCODONE-acetaminophen 5-325 mg 1-2 tablet (PERCOCET) 1-2 tablet ORAL q 4 H PRN morphine 2-4 mg injection 2-4 mg INTRAVENOUS q 1 H PRN pantoprazole 40 mg injection (PROTONIX) 40 mg INTRAVENOUS DAILY (6 AM) ondansetron (PF) 4 mg injection (ZOFRAN) 4 mg INTRAVENOUS q 6 H PRN propofol infusion (DIPRIVAN) 5-50 mcg/kg/min INTRAVENOUS CONTINUOUS ipratropium-albuterol 3 mL nebulizer solution (DUONEB) 3 mL INHALATION q 4 H atorvastatin 40 mg tab(s) (LIPITOR) 40 mg ORAL AT BEDTIME DATA: BLOOD GAS: Recent Labs 02/13/18 1945 RESPHCO3 25.1 PH 7.310* PCO2 51.4* [id number] 94.0* CBC: Recent Labs 02/18/18 0520 02/17/18 1000 02/16/18 0600 02/15/18 0530 02/13/18 0450 02/12/18 0501 WBC 10.99* 11.32* 10.92* 10.27* 7.83 11.10* HB 11.6* 11.7* 10.9* 11.3* 10.0* 10.2* HCT 35.4* 35.0* 32.5* 33.2* 30.3* 30.5* PLT 235 221 201 179 105* 96* MCV 98.1* 95.9* 95.3 94.9 98.1* 96.5* COAG: No results for input(s): APTT, INR in the last 168 hours. BMP: Recent Labs 02/18/18 0520 02/17/18 1000 02/16/18 0600 02/15/18 0530 02/14/18 0503 02/13/18 1945 02/13/18 0450 02/12/18 0501 GLUC 122* 123* 110* 137* 143* 113* 107* 109* NA 146* 145 140 141 140 140 140 141 K 3.7 4.1 3.9 4.0 4.7 3.5 3.7 3.9 CHLOR 110* 110* 112* 112* 109* 110* 110* 113* CO2 30 31 28 26 23 25 23 25 ANION 10 8 4* 7* 13 9 11 7* BUN 40* 36* 32* 20* 19* 20* 21* 29* CREAT 0.88 0.88 0.84 0.83 0.78 0.93 0.86 1.19* CHEM: Recent Labs 02/18/18 0520 02/17/18 1000 02/16/18 0600 02/15/18 0530 02/14/18 0503 02/13/18 1945 02/13/18 0450 02/12/18 0501 CA 8.3* 8.1* 8.1* 8.2* 8.2* 8.0* 8.0* 8.2* MG -- 2.5 -- -- -- 2.2 -- -- HEPATIC: No results for input(s): ALKPHOS, ALT, AST, TBILI, LIPASE in the last 168 hours. URINALYSIS: Recent Labs 02/13/181944 PH 7.310* Assessment/Plan ASSESSMENT: ACTIVE PROBLEM LIST Inguinal Hernia Without Mention of Obstruction Or Gangrene, Unilateral Or Unspecified, (Not Specified As Recurrent) Nstemi (Non-St Elevated Myocardial Infarction) (Hcc) Nsvt (Nonsustained Ventricular Tachycardia) (Hcc) Nicotine use disorder, F17.2 S/P CABG, 02/09/2018 Acute exacerbation of COPD secondary to HCAP Acute hypoxic respiratory failure Acute encephalopathy. PLAN: Continue full ventilator support. Attempting to wean though his respiratory rate on the ventilator is 28-30 times/minute at times. Patient will need to undergo tracheostomy and PEG tube placement if he is not extubated by Tuesday (. Continue bronchodilators. Finish antibiotic course. Patient has no need for steroids at this time as the patient has no active bronchospasm currently. Will avoid steroids as much as possible given his post-operative state. Has remained hemodynamically stable off pressors. Continue chest tube management as per Cardiovascular/Thoracic Surgery. Finally tolerating tube feeds at goal rate. Continue Reglan 10 mg IV every 6 hours. Continue supportive care. This patient has a high probability of sudden, clinically significant deterioration, which requires the highest level of physician preparedness to intervene urgently. I managed/supervised life or organ supporting interventions that required frequent physician assessment. I devoted my full attention to the direct care of this patient for the amount of time indicated below. Time I spent with family or surrogate(s) is included only if the patient was incapable of providing the necessary information or participating in medical decision making. Time devoted to teaching and to any procedures I billed separately is not included. PROGNOSIS: Fair Code status: Full Code. Discussed with Registered Nurse, PharmD, and Yg Owen (Cardiovascular/Thoracic Surgery PUBLIC ADDRESS SERVICER). Critical Care Documentation: The patient has the following organ/system impairment(s): Respiratory failure (Acute, with Hypoxemia) and coronary artery disease Time spent providing critical care services: 35 minutes. SIGNATURE: Evelin Coronado MD [facility] PAGER:[phone] DATE of SERVICE: February 18, 2018 TIME of SERVICE: 2:56 PM Beata Marin MD 02/19/2018 9:[address] surg POD #10! S-still wakes up wild on vent O-CT head negative, I/O close to balance Labs noted A-Not much improvement/change P-?neuro eval? Evelin Coronado MD 02/19/2018 4:12 PM Signed CRITICAL CARE PROGRESS NOTE SERVICE DATE: February 19, 2018 SERVICE TIME: 3:55 PM Admission Date: 02/07/2018 AGE: [age] year old LOS: 12 days REASON FOR ICU ADMISSION: ACTIVE PROBLEM LIST Inguinal Hernia Without Mention of Obstruction Or Gangrene, Unilateral Or Unspecified, (Not Specified As Recurrent) Nstemi (Non-St Elevated Myocardial Infarction) (Hcc) Nsvt (Nonsustained Ventricular Tachycardia) (Hcc) Nicotine use disorder, F17.2 F/U VDRF Subjective OVERNIGHT EVENTS: RN reports pt not tolerating sedation holiday. Becomes agitated and shakes his head to and fro rigorously. RN reports that she was able to get him off propofol for 15 minutes yesterday and he did not follow commands. He did not demonstrate purposeful movement, reaching for his ET tube. He did not track or focus. Objective VITAL SIGNS (last 24hrs min/max): Temp Av.4 ?C (99.3 ?F) Min: 36.5 ?C (97.7 ?F) Max: 37.8 ?C (100 ?F) Pulse Av.3 Min: 69 Max: 97 Cuff No Data Recorded Pain Score: 0/10 24 hour Intake AND Output: Intake/Output Summary (Last 24 hours) at 02/19/18 1555 Last data filed at 02/19/18 1400 Gross per 24 hour Intake 2742.2 ml Output 1451 ml Net 1291.2 ml PHYSICAL EXAM: GENERAL: well built 67yo WM, sedated, intubated. Pupils equal and reactive. He does MAEx4 RRR Few scattered crackles bilaterally without wheezing bilaterally anteriorly. Scattered bowel sounds No pedal edema bilaterally. Poor turgor, but dry, intact skin. : high w/ clear roman/yellow. GI: OG in place, TF's @ 47cc/h. EXT: - c/c/e, RUE dual lumen PICC in place, SCDs applied. VENTILATOR INFORMATION: WEANING DATA: Settings: Invasive Ventilator Mode: Pressure Regulated Volume Control (02/19/18 1225) %FIO2: 30 Set Ventilator Respiratory Rate (BPM): 15 Tidal Volume Set (mL): 550 PEEP/CPAP (cm H2O): 5 Inspiratory Pressure Set (cm H2O): 0.9 Patient Data: Inspiratory:Expiratory Ratio: 1:3 Peak Inspiratory Pressure (cm H2O): 17 Plateau Pressure (cm H2O): 12 Weaning Data: Spontaneous Respiratory Rate (BPM): 17.7 INPATIENT MEDICATIONS: Current hospital medications: dexmedetomidine 400 mcg in NaCl 0.9% 100 mL (PRECEDEX) 0.2- 0.7 mcg/kg/hr INTRAVENOUS CONTINUOUS diltiazem 30 mg tab(s) (CARDIZEM) 30 mg NASOGASTRIC q 6 H 0.9% NaCl 20 mL 20 mL INTRAVENOUS PRN 0.9% NaCl 10 mL 10 mL INTRAVENOUS q 12 H 0.9% NaCl 20 mL 20 mL INTRAVENOUS PRN aspirin 162 mg chewable tab(s) 162 mg ORAL DAILY metoprolol tartrate (short acting) (LOPRESSOR) tab(s) 75 mg 75 mg ORAL q 8 H enoxaparin 105 mg injection (LOVENOX) 1 mg/kg/dose SUBCUTANEOUS q 12 HR fentaNYL iv infusion 20 mcg/mL in NaCl 0.9% 100 mL 25 mcg/hr INTRAVENOUS CONTINUOUS nystatin 5 mL oral liquid (MYCOSTATIN) 5 mL ORAL QID metoclopramide HCl 10 mg injection (REGLAN) 10 mg INTRAVENOUS q 6 H LORazepam 2 mg injection (ATIVAN) 2 mg INTRAVENOUS q 4 H PRN dextrose 40 % 15 g 15 g ORAL PRN glucagon 1 mg injection (GLUCAGEN) 1 mg INTRAMUSCULAR PRN dextrose 50% in water 25 mL syringe 12.5 g INTRAVENOUS PRN insulin regular human injection (short acting) (NovoLIN R,HumuLIN R) SUBCUTANEOUS q 6 H bisacodyl 10 mg suppository (DULCOLAX) 10 mg RECTAL DAILY PRN polyethylene glycol 3350 17 g packet (MIRALAX, GLYCOLAX) 17 g ORAL DAILY senna-docusate 8.6-50 mg 1 tablet (SENNA-S) 1 tablet ORAL BID pill splitter (patient-specific) 1 Each Miscell. (Med.Supl.;Non- Drugs) PRN Chlorhexidine Gluconate 0.12 % 15 mL (PERIDEX) 15 mL ORAL q 12 H budesonide 0.5 mg/2 mL 1 mg (PULMICORT) 1 mg INHALATION BID acetaminophen 650 mg tab(s) (TYLENOL) 650 mg ORAL q 6 H PRN dextrose 50% in water 25 mL syringe 12.5 g INTRAVENOUS PRN potassium chloride iv piggyback 20 mEq in sterile water 100 mL 20 mEq INTRAVENOUS PRN magnesium sulfate in water 2 g in sterile water 50 ml 2 g INTRAVENOUS PRN(NO DISPENSE) albuterol 2.5 mg /3 mL (0.083 %) 2.5 mg (PROVENTIL) 2.5 mg INHALATION q 2 H PRN calcium chloride 1 g in D5W 100 mL 1 g INTRAVENOUS PRN(NO DISPENSE) oxyCODONE-acetaminophen 5-325 mg 1-2 tablet (PERCOCET) 1-2 tablet ORAL q 4 H PRN morphine 2-4 mg injection 2-4 mg INTRAVENOUS q 1 H PRN pantoprazole 40 mg injection (PROTONIX) 40 mg INTRAVENOUS DAILY (6 AM) ondansetron (PF) 4 mg injection (ZOFRAN) 4 mg INTRAVENOUS q 6 H PRN propofol infusion (DIPRIVAN) 5-50 mcg/kg/min INTRAVENOUS CONTINUOUS ipratropium-albuterol 3 mL nebulizer solution (DUONEB) 3 mL INHALATION q 4 H atorvastatin 40 mg tab(s) (LIPITOR) 40 mg ORAL AT BEDTIME DATA: BLOOD GAS: Recent Labs 02/13/181944 RESPHCO3 25.1 PH 7.310* PCO2 51.4* [id number] 94.0* CBC: Recent Labs 02/19/18 0550 02/18/18 0520 02/17/18 1000 02/16/18 0600 02/15/18 0530 02/13/18 0450 WBC 10.36* 10.99* 11.32* 10.92* 10.27* 7.83 HB 11.6* 11.6* 11.7* 10.9* 11.3* 10.0* HCT 35.2* 35.4* 35.0* 32.5* 33.2* 30.3* PLT 254 235 221 201 179 105* MCV 96.4* 98.1* 95.9* 95.3 94.9 98.1* COAG: No results for input(s): APTT, INR in the last 168 hours. BMP: Recent Labs 02/19/18 0550 02/18/18 0520 02/17/18 1000 02/16/18 0600 02/15/18 0530 02/14/18 0503 02/13/18194402/13/18 0450 GLUC 107* 122* 123* 110* 137* 143* 113* 107* NA 146* 146* 145 140 141 140 140 140 K 3.6 3.7 4.1 3.9 4.0 4.7 3.5 3.7 CHLOR 111* 110* 110* 112* 112* 109* 110* 110* CO2 31 30 31 28 26 23 25 23 ANION 8 10 8 4* 7* 13 9 11 BUN 39* 40* 36* 32* 20* 19* 20* 21* CREAT 0.80 0.88 0.88 0.84 0.83 0.78 0.93 0.86 CHEM: Recent Labs 02/19/18 0550 02/18/18 0520 02/17/18 1000 02/16/18 0600 02/15/18 0530 02/14/18 0503 02/13/18 1945 02/13/18 0450 CA 8.5 8.3* 8.1* 8.1* 8.2* 8.2* 8.0* 8.0* MG -- -- 2.5 -- -- -- 2.2 -- HEPATIC: No results for input(s): ALKPHOS, ALT, AST, TBILI, LIPASE in the last 168 hours. Ammonia level today: 43 Recent Labs 02/13/181944 PH 7.310* EXAMINATION: ?CT HEAD W/O CONTRAST 02/18/2018 IMPRESSION: ? 1. ?No acute intracranial abnormality. 2. ?Decision to perform further imaging such as MRI should made on a clinical basis. Pre-OP Spirometry 02/08 FVC 3.47 L 78% FEV1 2.27 L 59% Ratio 65 Assessment/Plan ASSESSMENT: ACTIVE PROBLEM LIST Inguinal Hernia Without Mention of Obstruction Or Gangrene, Unilateral Or Unspecified, (Not Specified As Recurrent) Nstemi (Non-St Elevated Myocardial Infarction) ([facility]) Nsvt (Nonsustained Ventricular Tachycardia) ([facility]) Nicotine use disorder, F17.2 S/P CABG, 02/09/2018 Acute exacerbation of COPD secondary to HCAP. Improving. Acute hypoxic respiratory failure Acute encephalopathy. PLAN: - Will try Precedex drip instead of propofol drip - 20 minute EEG - Consult neurology. Continue full ventilator support. Patient will need to undergo tracheostomy and PEG tube placement if he is not extubated by Tuesday (. Continue bronchodilators. Finish antibiotic course. Patient has no need for steroids at this time as the patient has no active bronchospasm currently. Will avoid steroids as much as possible given his post-operative state. Has remained hemodynamically stable off pressors. Continue chest tube management as per Cardiovascular/Thoracic Surgery. Finally tolerating tube feeds at goal rate. Continue Reglan 10 mg IV every 6 hours. Continue supportive care. This patient has a high probability of sudden, clinically significant deterioration, which requires the highest level of physician preparedness to intervene urgently. I managed/supervised life or organ supporting interventions that required frequent physician assessment. I devoted my full attention to the direct care of this patient for the amount of time indicated below. Time I spent with family or surrogate(s) is included only if the patient was incapable of providing the necessary information or participating in medical decision making. Time devoted to teaching and to any procedures I billed separately is not included. PROGNOSIS: Fair Code status: Full Code. Discussed with Registered Nurse, PharmD, and Yg Owen (Cardiovascular/Thoracic Surgery PUBLIC ADDRESS SERVICER). Critical Care Documentation: The patient has the following organ/system impairment(s): Respiratory failure (Acute, with Hypoxemia) and coronary artery disease Discussed with BAKERY DELIVERER and Dr. Ojeda. Time spent providing critical care services: 41 minutes. SIGNATURE: Evelin Coronado MD [facility] PAGER:[phone] DATE of SERVICE: February 19, 2018 TIME of SERVICE: 3:55 PM Krystal Miller APRN.[facility] 02/20/2018 9:32 AM Signed MICU - PROGRESS NOTE SERVICE DATE: 02/20/2018 SERVICE TIME: 9:22 AM Admission Date: 02/07/2018 AGE: [age] year old LOS: 13 days Subjective REASON FOR ICU ADMISSION: Respiratory Failure SP CABG Objective PROBLEMS: ACTIVE PROBLEM LIST Inguinal Hernia Without Mention of Obstruction Or Gangrene, Unilateral Or Unspecified, (Not Specified As Recurrent) Nstemi (Non-St Elevated Myocardial Infarction) ([facility]) Nsvt (Nonsustained Ventricular Tachycardia) ([facility]) Nicotine use disorder, F17.2 No past medical history on file. PAST SURGICAL HISTORY Procedure Laterality Date - ORTHOPEDICS SURGERY HX - REPAIR ING HERNIA,5+Y/O,REDUCIBL 1990 Hernia repair, inguinal,left Social History Marital status: Single Spouse name: Years of education: Number of children: Social History Main Topics Smoking status: Current Every Day Smoker Packs/day: 2.00 Years: 25.00 Types: Cigarettes Alcohol use: No Drug use: No Sexual activity: Yes Partners with: Female Other Topics Concern Service No Blood Transfusions No Caffeine Concern No Occupational Exposure No Hobby Hazards No Sleep Concern No Stress Concern No Weight Concern No Special Diet No Back Care No Exercise No Bike Helmet No Seat Belt No Self-Exams No VITAL SIGNS (last 24hrs min/max): Temp Av.9 ?C (98.4 ?F) Min: 36.7 ?C (98.1 ?F) Max: 37.1 ?C (98.8 ?F) Pulse Av.4 Min: 72 Max: 114 Arterial BP 1 Min: 103/52 Max: 149/67 Cuff No Data Recorded Pain Score: 710 Vital signs reviewed. BP 104/55 Pulse 75 Temp (Src) 98.6 (Temporal Artery) Resp 20 Ht 5' 10.984 (1.80m) Wt 234 lb 9.1 oz (106.4kg) SpO2 96% BMI 32.73 kg/(m2). Temp (24hrs), Av.9 ?C (98.4 ?F), Min:36.7 ?C (98.1 ?F), Max:37.1 ?C (98.8 ?F) NET FLUID BALANCE Intake/Output Summary (Last 24 hours) at 02/20/18 0922 Last data filed at 02/20/18 0900 Gross per 24 hour Intake 2629.7 ml Output 1808 ml Net 821.7 ml MEDICATIONS Current Facility-Administered Medications: dexmedetomidine 400 mcg in NaCl 0.9% 100 mL (PRECEDEX) 0.2- 0.7 mcg/kg/hr INTRAVENOUS CONTINUOUS diltiazem 30 mg tab(s) (CARDIZEM) 30 mg NASOGASTRIC q 6 H 0.9% NaCl 20 mL 20 mL INTRAVENOUS PRN 0.9% NaCl 10 mL 10 mL INTRAVENOUS q 12 H 0.9% NaCl 20 mL 20 mL INTRAVENOUS PRN aspirin 162 mg chewable tab(s) 162 mg ORAL DAILY metoprolol tartrate (short acting) (LOPRESSOR) tab(s) 75 mg 75 mg ORAL q 8 H enoxaparin 105 mg injection (LOVENOX) 1 mg/kg/dose SUBCUTANEOUS q 12 HR fentaNYL iv infusion 20 mcg/mL in NaCl 0.9% 100 mL 25 mcg/hr INTRAVENOUS CONTINUOUS nystatin 5 mL oral liquid (MYCOSTATIN) 5 mL ORAL QID metoclopramide HCl 10 mg injection (REGLAN) 10 mg INTRAVENOUS q 6 H LORazepam 2 mg injection (ATIVAN) 2 mg INTRAVENOUS q 4 H PRN dextrose 40 % 15 g 15 g ORAL PRN Or glucagon 1 mg injection (GLUCAGEN) 1 mg INTRAMUSCULAR PRN Or dextrose 50% in water 25 mL syringe 12.5 g INTRAVENOUS PRN insulin regular human injection (short acting) (NovoLIN R,HumuLIN R) SUBCUTANEOUS q 6 H bisacodyl 10 mg suppository (DULCOLAX) 10 mg RECTAL DAILY PRN polyethylene glycol 3350 17 g packet (MIRALAX, GLYCOLAX) 17 g ORAL DAILY senna-docusate 8.6-50 mg 1 tablet (SENNA-S) 1 tablet ORAL BID pill splitter (patient-specific) 1 Each Miscell. (Med.Supl.;Non- Drugs) PRN Chlorhexidine Gluconate 0.12 % 15 mL (PERIDEX) 15 mL ORAL q 12 H budesonide 0.5 mg/2 mL 1 mg (PULMICORT) 1 mg INHALATION BID acetaminophen 650 mg tab(s) (TYLENOL) 650 mg ORAL q 6 H PRN dextrose 50% in water 25 mL syringe 12.5 g INTRAVENOUS PRN potassium chloride iv piggyback 20 mEq in sterile water 100 mL 20 mEq INTRAVENOUS PRN magnesium sulfate in water 2 g in sterile water 50 ml 2 g INTRAVENOUS PRN(NO DISPENSE) albuterol 2.5 mg /3 mL (0.083 %) 2.5 mg (PROVENTIL) 2.5 mg INHALATION q 2 H PRN calcium chloride 1 g in D5W 100 mL 1 g INTRAVENOUS PRN(NO DISPENSE) oxyCODONE-acetaminophen 5-325 mg 1-2 tablet (PERCOCET) 1-2 tablet ORAL q 4 H PRN morphine 2-4 mg injection 2-4 mg INTRAVENOUS q 1 H PRN pantoprazole 40 mg injection (PROTONIX) 40 mg INTRAVENOUS DAILY (6 AM) ondansetron (PF) 4 mg injection (ZOFRAN) 4 mg INTRAVENOUS q 6 H PRN propofol infusion (DIPRIVAN) 5-50 mcg/kg/min INTRAVENOUS CONTINUOUS ipratropium-albuterol 3 mL nebulizer solution (DUONEB) 3 mL INHALATION q 4 H atorvastatin 40 mg tab(s) (LIPITOR) 40 mg ORAL AT BEDTIME Lines, Drains, and Airways Line Arterial Line 02/09/18 0830 Arterial Line Left Radial 11 days Central Line Double Lumen 02/17/18 1310 Peripherally Inserted (PICC) Right Arm 5.0 Vietnamese 2 days Drain GI Feed/Drain 02/09/18 0800 Oral Gastric Midline 11 days Indwelling Urinary Catheter 02/09/18 0838 Temperature Monitoring 16 Fr 11 days Airway Airway Endotracheal Tube 02/09/18 0800 11 days PHYSICAL EXAM PERFORMED: Cardiovascular: Regular rhythm Respiratory: Reduced breath sounds bilat %FIO2 Min: 30 Max: 30 Abdomen: Soft Extremities: Edema- Yes Generalized edema Neurologic: Sedated with fentanyl. precedex and propofol Respiratory/Nursing Documentation: O2 Therapy: Ventilator (02/20/18 0810) Invasive Ventilator Mode: Pressure Regulated Volume Control (02/20/18809) Set Ventilator Respiratory Rate (BPM): 15 (02/20/18 0810) Total Respiratory Rate (BPM): 22 (02/20/18 08) Tidal Volume Set (mL): 550 (02/20/18 0810) Exhaled Tidal Volume (mL): 619 (02/20/18 0810) Minute Volume (L): 12.6 (02/20/18809) Peak Inspiratory Pressure (cm H2O): 10 (02/20/18 0810) PEEP/CPAP (cm H2O): 5 (02/20/18 08) HEMODYNAMIC DATA: Reviewed NUTRITION: Enteral Feeds: Yes Feedings on hold-residual 280ml NPO DATA: Diagnostic tests reviewed for today's visit, films/specimens were personally reviewed by me: Most recent labs and imaging results. LABS: Recent Labs 02/20/18 0610 02/17/18 1000 WBC 10.17* < > 11.32* RBC 3.50* < > 3.65* HB 11.2* < > 11.7* HCT 33.7* < > 35.0* MCV 96.3* < > 95.9* PLT 250 < > 221 GLUC 120* < > 123* BUN 34* < > 36* CREAT 0.84 < > 0.88 NA 145 < > 145 K 3.7 < > 4.1 CHLOR 114* < > 110* CO2 28 < > 31 CA 8.2* < > 8.1* MG -- -- 2.5 < > = values in this interval not displayed. ABG: Assessment/Plan IMPRESSION: Critical Care Documentation: The patient has the following organ/system impairment(s): Respiratory failure (with Hypoxemia) S/P CABG, 02/09/2018 Acute exacerbation of COPD secondary to HCAP. Improving. Acute hypoxic respiratory failure Acute encephalopathy PLAN: Continue full ventilator support Finish course of antibiotics Stable hemodynamics off pressor agents CT Brain was negative MRI Brain pending-neuro following Tube feedings held 2/2 high residuals Continue Reglan 10 mg IV every 6 hours. Continue supportive care This patient has a high probability of sudden, clinically significant deterioration, which requires the highest level of physician preparedness to intervene urgently. I managed/supervised life or organ supporting interventions that required frequent physician assessment. I devoted my full attention to the direct care of this patient for the amount of time indicated below. Time I spent with family or surrogate(s) is included only if the patient was incapable of providing the necessary information or participating in medical decision making. Time devoted to teaching is not included. Discussed with staff/patient/family Time spent providing critical care services: 35 minutes excluding procedures. SIGNATURE: Krystal Miller APRN.BEHAVIORAL HEALTH CONSULTANT PATIENT NAME: Jeffrey Cullen DATE: February 20, 2018 TIME: 9:[address], AMINA, RD 02/20/2018 3:42 PM Addendum NUTRITION THERAPY REASSESSMENT SERVICE DATE: 02/20/2018 SERVICE TIME: 10:31 AM RECOMMENDED MALNUTRITION DIAGNOSIS: Previous entry done in error. Sandra Almaguer RD, AMINA. February 20, 2018 3:41 PM MODERATE PROTEIN CALORIE MALNUTRITION In the context of Acute Illness or Injury based on: Insufficient Energy Intake: <75% for >7 days Subcutaneous Fat Loss: Mild Loss Muscle Loss Moderate Loss NUTRITION CARE PLAN: Problem, Etiology and Signs/Symptoms: Suboptimal oral intake related to respiratory status as evidenced by NPO with tube feeding, vent support, and moderate muscle loss. Intervention: Recommend increase Impact Peptide to goal rate 50 ml/hr to provide 1200 ml product - 1800 kcal, 112.8 gm protein, 924 ml free water Flush with 30 ml 6 times per day (Flush goal 150 ml 6 times per day) Propofol at 6.34 ml/hr providing ~167.4 kcal per day., noted off and on at present Coordination of Care: Nursing, PAOLA, , and Pharmacy Monitor and Evaluation: Goal: Meet >75% of estimated needs Monitor fluid/electrolyte balance Monitor labs, I/Os, vital signs, weight Monitor tolerance to tube feeding Discharge Nutrition Recommendations: To be determined Chart reviewed for follow-up from tube feeding Per HPI: 67 year old male patient with no known PMH other than long history of smoking ( 2packs a day for more than 30 years) Earlier 02/07/18?he was sitting and suddenly started having substernal chest pain, pain is intermittent with no radiation, he felt nauseas but no vomiting and no diaphoresis.This pain kept coming so he went to the ER. Underwent LHC on 02/08/18 showed need for CABG, underwent CABG on 02/09/18. Chest tubed pulled 02/11. ?Remains on vent support. Noted residuals and tube feeding held at present. ?Started on Reglan daily from PRN. ? Patient remains intubated this AM. No significant residuals noted greater than 100 cc. Toleration of tube feeding improving. Interval History: Remains on vent support, tube feeding held at present for residual 280 ml. PICC placed on 02/17. Noted plan for trach and PEG, if unable to extubate soon. Met with RN reports residual decreasing with plans to restart TF. BM 02/16, RN aware, reported likely to give dulcolax suppository today. ACTIVE PROBLEM LIST Inguinal Hernia Without Mention of Obstruction Or Gangrene, Unilateral Or Unspecified, (Not Specified As Recurrent) Nstemi (Non-St Elevated Myocardial Infarction) ([facility]) Nsvt (Nonsustained Ventricular Tachycardia) ([facility]) Nicotine use disorder, F17.2 No past medical history on file. PAST SURGICAL HISTORY Procedure Laterality Date - ORTHOPEDICS SURGERY HX - REPAIR ING HERNIA,5+Y/O,REDUCIBL 1989 Hernia repair, inguinal,left Present Diet Order: NPO and Tube Feeding Impact Peptide 1.5 at 47 ml/hr. Nutritional Intake: >75% estimated energy needs over the past 5 day(s), noted TF held today for residual 280 ml.Noted was held on 02/13 for high residual 480 ml and then restarted on 02/15. Was NPO 4 days prior to TF start. GI symptoms: constipation, noted last BM 02/16 Abdominal Exam: bowel sounds are hypoactive Is the patient having any pain that is interfering with oral/enteral intake? Unable to assess ANTHROPOMETRICS Height: 180.3 cm (5' 10.98) Admission Weight: 104.3 kg (229 lb 15 oz) Current Weight: 106.4 kg (234 lb 9.1 oz) Body mass index is 32.73 kg/(m2). class 1 obesity Weight has increased by 2.1 kg over 2 weeks representing 2 % weight change. Last Wt 02/20/18 : 106.4 kg (234 lb 9.1 oz) 02/07/18 : 104.3 kg (230 lb) 12/04/07 : 100.2 kg (221 lb) [place] Body Weight: 78.2kg Resting Metabolic Rate: 1897 Estimated kilocalorie needs: 3216-6307 kilocalories determined by 25-30 kcal/kg ideal body weight Estimated protein needs: 102-133 grams determined by 1.3-1.7 g/kg [place] weight Estimated fluid needs: 7366-4896 milliliters based on 1 mL per kcal NUTRITION FOCUSED PHYSICAL EXAM: Subcutaneous Fat Loss Orbital Mild Triceps No fat loss Mid-axillary at the iliac crest Unable to determine at this time Muscle Loss Locations: Temporalis Moderate Pectoralis No muscle loss Deltoids No muscle loss Interosseous No muscle loss Latissimus dorsi, trapezius No muscle loss Quadriceps No muscle loss Gastrocnemius No muscle loss Potential micronutrient deficiency revealed in: Unable to determine at this time Edema: Yes Lower extremities Mild 1+, Generalized and Non-pitting Ascites: No Assessment of Functional Status: Functional capacity is unrelated to nutrition status Temperature Max in 24 hours: Temp (24hrs), Av.9 ?C (98.4 ?F), Min:36.7 ?C (98.1 ?F), Max:37.1 ?C (98.8 ?F) BP 104/55 Pulse 75 Temp 37 ?C (98.6 ?F) Resp 20 Ht 180.3 cm (5' 10.98) Wt 106.4 kg (234 lb 9.1 oz) SpO2 96% BMI 32.73 kg/m2 Recent Labs 02/20/18 0610 GLUC 120* BUN 34* CREAT 0.84 NA 145 K 3.7 CHLOR 114* CO2 28 HB 11.2* HCT 33.7* WBC 10.17* Potential Signs of Inflammation: leukocytosis and hyperglycemia ALLERGIES No Known Allergies Current Facility-Administered Medications: dexmedetomidine 400 mcg in NaCl 0.9% 100 mL (PRECEDEX) 0.2- 0.7 mcg/kg/hr INTRAVENOUS CONTINUOUS diltiazem 30 mg tab(s) (CARDIZEM) 30 mg NASOGASTRIC q 6 H 0.9% NaCl 20 mL 20 mL INTRAVENOUS PRN 0.9% NaCl 10 mL 10 mL INTRAVENOUS q 12 H 0.9% NaCl 20 mL 20 mL INTRAVENOUS PRN aspirin 162 mg chewable tab(s) 162 mg ORAL DAILY metoprolol tartrate (short acting) (LOPRESSOR) tab(s) 75 mg 75 mg ORAL q 8 H enoxaparin 105 mg injection (LOVENOX) 1 mg/kg/dose SUBCUTANEOUS q 12 HR fentaNYL iv infusion 20 mcg/mL in NaCl 0.9% 100 mL 25 mcg/hr INTRAVENOUS CONTINUOUS nystatin 5 mL oral liquid (MYCOSTATIN) 5 mL ORAL QID metoclopramide HCl 10 mg injection (REGLAN) 10 mg INTRAVENOUS q 6 H LORazepam 2 mg injection (ATIVAN) 2 mg INTRAVENOUS q 4 H PRN dextrose 40 % 15 g 15 g ORAL PRN Or glucagon 1 mg injection (GLUCAGEN) 1 mg INTRAMUSCULAR PRN Or dextrose 50% in water 25 mL syringe 12.5 g INTRAVENOUS PRN insulin regular human injection (short acting) (NovoLIN R,HumuLIN R) SUBCUTANEOUS q 6 H bisacodyl 10 mg suppository (DULCOLAX) 10 mg RECTAL DAILY PRN polyethylene glycol 3350 17 g packet (MIRALAX, GLYCOLAX) 17 g ORAL DAILY senna-docusate 8.6-50 mg 1 tablet (SENNA-S) 1 tablet ORAL BID pill splitter (patient-specific) 1 Each Miscell. (Med.Supl.;Non- Drugs) PRN Chlorhexidine Gluconate 0.12 % 15 mL (PERIDEX) 15 mL ORAL q 12 H budesonide 0.5 mg/2 mL 1 mg (PULMICORT) 1 mg INHALATION BID acetaminophen 650 mg tab(s) (TYLENOL) 650 mg ORAL q 6 H PRN dextrose 50% in water 25 mL syringe 12.5 g INTRAVENOUS PRN potassium chloride iv piggyback 20 mEq in sterile water 100 mL 20 mEq INTRAVENOUS PRN magnesium sulfate in water 2 g in sterile water 50 ml 2 g INTRAVENOUS PRN(NO DISPENSE) albuterol 2.5 mg /3 mL (0.083 %) 2.5 mg (PROVENTIL) 2.5 mg INHALATION q 2 H PRN calcium chloride 1 g in D5W 100 mL 1 g INTRAVENOUS PRN(NO DISPENSE) oxyCODONE-acetaminophen 5-325 mg 1-2 tablet (PERCOCET) 1-2 tablet ORAL q 4 H PRN morphine 2-4 mg injection 2-4 mg INTRAVENOUS q 1 H PRN pantoprazole 40 mg injection (PROTONIX) 40 mg INTRAVENOUS DAILY (6 AM) ondansetron (PF) 4 mg injection (ZOFRAN) 4 mg INTRAVENOUS q 6 H PRN propofol infusion (DIPRIVAN) 5-50 mcg/kg/min INTRAVENOUS CONTINUOUS ipratropium-albuterol 3 mL nebulizer solution (DUONEB) 3 mL INHALATION q 4 H atorvastatin 40 mg tab(s) (LIPITOR) 40 mg ORAL AT BEDTIME Surgical Incision 02/09/18 Chest - Midsternal (Active) Dressing Status None: Open to Air 02/20/2018 8:00 AM Frequency of Dressing Change As Needed 02/18/2018 4:00 AM Incision Closures Topical Skin Adhesive 02/20/2018 8:00 AM Drainage Description None 02/20/2018 8:00 AM Drainage Amount None 02/20/2018 8:00 AM Edges Intact 02/20/2018 8:00 AM Hematoma No 02/20/2018 8:00 AM Number of days:11 Surgical Incision 02/09/18 Leg - Left (Active) Dressing Status None: Open to Air 02/20/2018 8:00 AM Frequency of Dressing Change As Needed 02/18/2018 4:00 AM Incision Closures Topical Skin Adhesive 02/20/2018 8:00 AM Drainage Description None 02/20/2018 8:00 AM Drainage Amount None 02/20/2018 8:00 AM Edges Intact 02/20/2018 8:00 AM Hematoma No 02/20/2018 8:00 AM Number of days:11 MNT Billing Type: Re-assess/15 min 5 units SIGNATURE: Sandra Almaguer RD, LD PATIENT NAME: Jeffrey Cullen DATE: February 20, 2018 TIME: 10:31 AM PAGER: [phone] Previous Version Beata Marin MD 02/20/2018 5:44 PM Addendum CARDIOTHORACICSURGERY PROGRESS NOTE SERVICE DATE: 02/20/2018 SERVICE TIME: 10:45 AM Ventricular Pacing Wires removed. Patient sedated and intubated. A single ventricular wire and ground lead were removed at 10:42AM without complication. Patient tolerated procedure well. Nurse will monitor VS [id number], then q30x1h, then [id number]. SIGNATURE: Misti Stein PA-C PATIENT NAME: Jeffrey Cullen DATE: February 20, 2018 TIME: 10:45 AM PAGER/CONTACT #: [phone] ETX#[id number] Patient seen and still on vent. Perhaps a little more awake at times. Appreciate neuro eval. Labs noted. Mostly sinus rhythm. A-continued mental status changes with neg CT head and resp failure s/p urgent cabg P-on therapeutic lovenox, cardizem, and lopressor for postop afib. Await MRI brain. Previous Version Keon Chance MD 02/20/2018 12:25 PM Signed CRITICAL CARE PROGRESS NOTE SERVICE DATE: February 20, 2018 SERVICE TIME: 12:17 PM Admission Date: 02/07/2018 AGE: [age] year old LOS: 13 days REASON FOR ICU ADMISSION: ACTIVE PROBLEM LIST Inguinal Hernia Without Mention of Obstruction Or Gangrene, Unilateral Or Unspecified, (Not Specified As Recurrent) Nstemi (Non-St Elevated Myocardial Infarction) ([facility]) Nsvt (Nonsustained Ventricular Tachycardia) ([facility]) Nicotine use disorder, F17.2 Subjective OVERNIGHT EVENTS: Patient is resting comfortably in bed while sedated and intubated/on the ventilator without any current distress. He does not follow commands on either lesser sedation or no sedation. Objective VITAL SIGNS (last 24hrs min/max): Temp Av.4 ?C (99.3 ?F) Min: 36.5 ?C (97.7 ?F) Max: 37.8 ?C (100 ?F) Pulse Av.3 Min: 69 Max: 97 Cuff No Data Recorded Pain Score: 0 /10 24 hour Intake AND Output: Intake/Output Summary (Last 24 hours) at 02/20/18 1217 Last data filed at 02/20/18 1200 Gross per 24 hour Intake 2282.7 ml Output 1838 ml Net 444.7 ml PHYSICAL EXAM: RRR Few scattered crackles bilaterally without wheezing bilaterally anteriorly. Few scattered bowel sounds, soft, nontender, mildly distended. No pedal edema bilaterally. Poor turgor, but dry, intact skin. VENTILATOR INFORMATION: WEANING DATA: Settings: Invasive Ventilator Mode: Pressure Regulated Volume Control (02/20/18 1210) %FIO2: 30 Set Ventilator Respiratory Rate (BPM): 15 Tidal Volume Set (mL): 550 PEEP/CPAP (cm H2O): 5 Inspiratory Pressure Set (cm H2O): 0.9 Patient Data: Inspiratory:Expiratory Ratio: 1:3 Peak Inspiratory Pressure (cm H2O): 18 Plateau Pressure (cm H2O): 13 Weaning Data: Spontaneous Respiratory Rate (BPM): 17.7 INPATIENT MEDICATIONS: Current hospital medications: dexmedetomidine 400 mcg in NaCl 0.9% 100 mL (PRECEDEX) 0.2- 0.7 mcg/kg/hr INTRAVENOUS CONTINUOUS diltiazem 30 mg tab(s) (CARDIZEM) 30 mg NASOGASTRIC q 6 H 0.9% NaCl 20 mL 20 mL INTRAVENOUS PRN 0.9% NaCl 10 mL 10 mL INTRAVENOUS q 12 H 0.9% NaCl 20 mL 20 mL INTRAVENOUS PRN aspirin 162 mg chewable tab(s) 162 mg ORAL DAILY metoprolol tartrate (short acting) (LOPRESSOR) tab(s) 75 mg 75 mg ORAL q 8 H enoxaparin 105 mg injection (LOVENOX) 1 mg/kg/dose SUBCUTANEOUS q 12 HR fentaNYL iv infusion 20 mcg/mL in NaCl 0.9% 100 mL 25 mcg/hr INTRAVENOUS CONTINUOUS nystatin 5 mL oral liquid (MYCOSTATIN) 5 mL ORAL QID metoclopramide HCl 10 mg injection (REGLAN) 10 mg INTRAVENOUS q 6 H LORazepam 2 mg injection (ATIVAN) 2 mg INTRAVENOUS q 4 H PRN dextrose 40 % 15 g 15 g ORAL PRN glucagon 1 mg injection (GLUCAGEN) 1 mg INTRAMUSCULAR PRN dextrose 50% in water 25 mL syringe 12.5 g INTRAVENOUS PRN insulin regular human injection (short acting) (NovoLIN R,HumuLIN R) SUBCUTANEOUS q 6 H bisacodyl 10 mg suppository (DULCOLAX) 10 mg RECTAL DAILY PRN polyethylene glycol 3350 17 g packet (MIRALAX, GLYCOLAX) 17 g ORAL DAILY senna-docusate 8.6-50 mg 1 tablet (SENNA-S) 1 tablet ORAL BID pill splitter (patient-specific) 1 Each Miscell. (Med.Supl.;Non- Drugs) PRN Chlorhexidine Gluconate 0.12 % 15 mL (PERIDEX) 15 mL ORAL q 12 H budesonide 0.5 mg/2 mL 1 mg (PULMICORT) 1 mg INHALATION BID acetaminophen 650 mg tab(s) (TYLENOL) 650 mg ORAL q 6 H PRN dextrose 50% in water 25 mL syringe 12.5 g INTRAVENOUS PRN potassium chloride iv piggyback 20 mEq in sterile water 100 mL 20 mEq INTRAVENOUS PRN magnesium sulfate in water 2 g in sterile water 50 ml 2 g INTRAVENOUS PRN(NO DISPENSE) albuterol 2.5 mg /3 mL (0.083 %) 2.5 mg (PROVENTIL) 2.5 mg INHALATION q 2 H PRN calcium chloride 1 g in D5W 100 mL 1 g INTRAVENOUS PRN(NO DISPENSE) oxyCODONE-acetaminophen 5-325 mg 1-2 tablet (PERCOCET) 1-2 tablet ORAL q 4 H PRN morphine 2-4 mg injection 2-4 mg INTRAVENOUS q 1 H PRN pantoprazole 40 mg injection (PROTONIX) 40 mg INTRAVENOUS DAILY (6 AM) ondansetron (PF) 4 mg injection (ZOFRAN) 4 mg INTRAVENOUS q 6 H PRN propofol infusion (DIPRIVAN) 5-50 mcg/kg/min INTRAVENOUS CONTINUOUS ipratropium-albuterol 3 mL nebulizer solution (DUONEB) 3 mL INHALATION q 4 H atorvastatin 40 mg tab(s) (LIPITOR) 40 mg ORAL AT BEDTIME DATA: BLOOD GAS: Recent Labs 02/13/18 1945 RESPHCO3 25.1 PH 7.310* PCO2 51.4* [id number] 94.0* CBC: Recent Labs 02/20/18 0610 02/19/18 0550 02/18/18 0520 02/17/18 1000 02/16/18 0600 02/15/18 0530 WBC 10.17* 10.36* 10.99* 11.32* 10.92* 10.27* HB 11.2* 11.6* 11.6* 11.7* 10.9* 11.3* HCT 33.7* 35.2* 35.4* 35.0* 32.5* 33.2* PLT 250 254 235 221 201 179 MCV 96.3* 96.4* 98.1* 95.9* 95.3 94.9 BMP: Recent Labs 02/20/18 0610 02/19/18 0550 02/18/18 0520 02/17/18 1000 02/16/18 0600 02/15/18 0530 02/14/18 0503 02/13/181944 GLUC 120* 107* 122* 123* 110* 137* 143* 113* NA 145 146* 146* 145 140 141 140 140 K 3.7 3.6 3.7 4.1 3.9 4.0 4.7 3.5 CHLOR 114* 111* 110* 110* 112* 112* 109* 110* CO2 28 31 30 31 28 26 23 25 ANION 7* 8 10 8 4* 7* 13 9 BUN 34* 39* 40* 36* 32* 20* 19* 20* CREAT 0.84 0.80 0.88 0.88 0.84 0.83 0.78 0.93 CHEM: Recent Labs 02/20/18 0610 02/19/18 0550 02/18/18 0520 02/17/18 1000 02/16/18 0600 02/15/18 0530 02/14/18 0503 02/13/181944 CA 8.2* 8.5 8.3* 8.1* 8.1* 8.2* 8.2* 8.0* MG -- -- -- 2.5 -- -- -- 2.2 URINALYSIS: Recent Labs 02/13/181944 PH 7.310* Assessment/Plan ASSESSMENT: ACTIVE PROBLEM LIST Inguinal Hernia Without Mention of Obstruction Or Gangrene, Unilateral Or Unspecified, (Not Specified As Recurrent) Nstemi (Non-St Elevated Myocardial Infarction) (Hcc) Nsvt (Nonsustained Ventricular Tachycardia) ([facility]) Nicotine use disorder, F17.2 S/P CABG, POD # 11 Acute exacerbation of COPD secondary to HCAP Acute hypoxic respiratory failure Acute encephalopathy PLAN: Continue full ventilator support. Doing much better on CPAP/PS trials and seems to be ready for extubation form a respiratory standpoint, but will not be due to his encephalopathy. Patient will need to undergo tracheostomy and PEG tube placement if he is not extubated soon. Continue bronchodilators. Finished antibiotic course. Is undergoing further evaluation by Neurology. Tolerating tube feeds at goal rate variably. Continue Reglan 10 mg IV every 6 hours plus a bowel regimen. Continue supportive care. This patient has a high probability of sudden, clinically significant deterioration, which requires the highest level of physician preparedness to intervene urgently. I managed/supervised life or organ supporting interventions that required frequent physician assessment. I devoted my full attention to the direct care of this patient for the amount of time indicated below. Time I spent with family or surrogate(s) is included only if the patient was incapable of providing the necessary information or participating in medical decision making. Time devoted to teaching and to any procedures I billed separately is not included. PROGNOSIS: Fair Code status: Full Code. Discussed with Registered Nurse. Critical Care Documentation: The patient has the following organ/system impairment(s): Respiratory failure (Acute, with Hypoxemia) and coronary artery disease Time spent providing critical care services: 38 minutes. SIGNATURE: Keon Chance MD [facility] PAGER:[phone] DATE of SERVICE: February 20, 2018 TIME of SERVICE: 12:17 PM Bharat Ojeda MD 02/20/2018 3:38 PM Addendum INITIAL CONSULT NEURO ICU SERVICE DATE: 02/20/2018 SERVICE TIME: 1:37 PM Team Requesting Consult: MICU Current Attending Provider: Beata Marin Neurology was asked by the MICU team to evaluate Jeffrey Cullen, a 67 year old male for a chief complaint of Acute Encephalopathy. Our recommendations of care will be communicated by shared medical record. Reason for Evaluation: Acute encephalopathy Subjective HPI: This is Mr. Jeffrey Cullen a 67 year old male s/p 3v CABG. Post-operatively, patient has become agitated and writhing about requiring restraints. He is intubated and sedated on Precedex, propofol and fentanyl. He has not tolerated sedation holidays. While off sedation, patient does not follow commands or demonstrate purposeful movement per nurse. He does not track or focus. He has been treated for COPD exacerbation secondary to HCAP. On abx. And improving. VSS, not requiring pressor support at this time. Current hospital medications: dexmedetomidine 400 mcg in NaCl 0.9% 100 mL (PRECEDEX) 0.2- 0.7 mcg/kg/hr INTRAVENOUS CONTINUOUS diltiazem 30 mg tab(s) (CARDIZEM) 30 mg NASOGASTRIC q 6 H 0.9% NaCl 20 mL 20 mL INTRAVENOUS PRN 0.9% NaCl 10 mL 10 mL INTRAVENOUS q 12 H 0.9% NaCl 20 mL 20 mL INTRAVENOUS PRN aspirin 162 mg chewable tab(s) 162 mg ORAL DAILY metoprolol tartrate (short acting) (LOPRESSOR) tab(s) 75 mg 75 mg ORAL q 8 H enoxaparin 105 mg injection (LOVENOX) 1 mg/kg/dose SUBCUTANEOUS q 12 HR fentaNYL iv infusion 20 mcg/mL in NaCl 0.9% 100 mL 25 mcg/hr INTRAVENOUS CONTINUOUS nystatin 5 mL oral liquid (MYCOSTATIN) 5 mL ORAL QID metoclopramide HCl 10 mg injection (REGLAN) 10 mg INTRAVENOUS q 6 H LORazepam 2 mg injection (ATIVAN) 2 mg INTRAVENOUS q 4 H PRN dextrose 40 % 15 g 15 g ORAL PRN glucagon 1 mg injection (GLUCAGEN) 1 mg INTRAMUSCULAR PRN dextrose 50% in water 25 mL syringe 12.5 g INTRAVENOUS PRN insulin regular human injection (short acting) (NovoLIN R,HumuLIN R) SUBCUTANEOUS q 6 H bisacodyl 10 mg suppository (DULCOLAX) 10 mg RECTAL DAILY PRN polyethylene glycol 3350 17 g packet (MIRALAX, GLYCOLAX) 17 g ORAL DAILY senna-docusate 8.6-50 mg 1 tablet (SENNA-S) 1 tablet ORAL BID pill splitter (patient-specific) 1 Each Miscell. (Med.Supl.;Non- Drugs) PRN Chlorhexidine Gluconate 0.12 % 15 mL (PERIDEX) 15 mL ORAL q 12 H budesonide 0.5 mg/2 mL 1 mg (PULMICORT) 1 mg INHALATION BID acetaminophen 650 mg tab(s) (TYLENOL) 650 mg ORAL q 6 H PRN dextrose 50% in water 25 mL syringe 12.5 g INTRAVENOUS PRN potassium chloride iv piggyback 20 mEq in sterile water 100 mL 20 mEq INTRAVENOUS PRN magnesium sulfate in water 2 g in sterile water 50 ml 2 g INTRAVENOUS PRN(NO DISPENSE) albuterol 2.5 mg /3 mL (0.083 %) 2.5 mg (PROVENTIL) 2.5 mg INHALATION q 2 H PRN calcium chloride 1 g in D5W 100 mL 1 g INTRAVENOUS PRN(NO DISPENSE) oxyCODONE-acetaminophen 5-325 mg 1-2 tablet (PERCOCET) 1-2 tablet ORAL q 4 H PRN morphine 2-4 mg injection 2-4 mg INTRAVENOUS q 1 H PRN pantoprazole 40 mg injection (PROTONIX) 40 mg INTRAVENOUS DAILY (6 AM) ondansetron (PF) 4 mg injection (ZOFRAN) 4 mg INTRAVENOUS q 6 H PRN propofol infusion (DIPRIVAN) 5-50 mcg/kg/min INTRAVENOUS CONTINUOUS ipratropium-albuterol 3 mL nebulizer solution (DUONEB) 3 mL INHALATION q 4 H atorvastatin 40 mg tab(s) (LIPITOR) 40 mg ORAL AT BEDTIME No past medical history on file. PAST SURGICAL HISTORY Procedure Laterality Date - ORTHOPEDICS SURGERY HX - REPAIR ING HERNIA,5+Y/O,REDUCIBL 1990 Hernia repair, inguinal,left Social History Marital status: Single Spouse name: Years of education: Number of children: Social History Main Topics Smoking status: Current Every Day Smoker Packs/day: 2.00 Years: 25.00 Types: Cigarettes Alcohol use: No Drug use: No Sexual activity: Yes Partners with: Female Other Topics Concern Service No Blood Transfusions No Caffeine Concern No Occupational Exposure No Hobby Hazards No Sleep Concern No Stress Concern No Weight Concern No Special Diet No Back Care No Exercise No Bike Helmet No Seat Belt No Self-Exams No FAMILY HISTORY Problem Relation Age of Onset - Alcohol/Drug Father - Colon Cancer Mother - Diabetes Mother ALLERGIES No Known Allergies REVIEW OF SYSTEMS: Unable to obtain secondary sedated/mechanically ventilated. Objective PHYSICAL EXAM: General Appearance: Well appearing, alert, in no acute distress, well-hydrated, well nourished. Skin: Skin color, texture, turgor normal, no suspicious rashes or lesions Head: Normocephalic, no masses, lesions, tenderness or abnormalities Ears: External ears normal, canals clear Nose/Sinuses: Nares normal, septum midline, mucosa normal, no drainage. Oropharynx: Lips, mucosa, and tongue normal, teeth and gums normal, oropharynx normal Neck: Supple, no adenopathy; thyroid symmetric, normal size, no bruits Lungs: Lungs clear to auscultation anteriorly. No wheezing, rhonchi, rales. Heart: RRR without murmur, gallop, or rubs. No ectopy Abdomen: Abdomen soft, non-tender. Bowel sounds normal. No masses, organomegaly Extremities: No deformities, edema, skin discoloration, clubbing or cyanosis. Good capillary refill. Musculoskeletal: No joint swelling, deformity, or tenderness Peripheral Pulses: Normal Neurological: ? Mental Status: Intubated/sedated/mechanically ventilated. Not following commands or opening eyes. Cranial Nerves: CNII: Does not blink to visual threat. CNIII, IV, : Pupils equal, round and reactive to light, without nystagmus CN V: Unable to assess. CN VII: No noted facial droop CN VIII: Could not be assessed. CN IX: Gag Reflex Intact CN X: Unable to assess. CN XI: Could not be assessed. CN XII: Could not be assessed. ? Motor Exam: Tone - Normal Bulk - no muscle atrophy Motor Exam Strength- Unable to adequately assess at this time. REFLEXES Right Left Bicep 2/4 2/4 Tricep 2/4 2/4 BrRad 2/4 2/4 Knee 2/4 2/4 Ankle 2/4 2/4 ? Sensation: Intact to pin-prick [pain]. ? Coordination: Could not be assessed. ? Gait: Patient is unable to ambulate. LABS/DATA: WBC (thou/cmm) Date Value 02/20/2018 10.17 02/19/2018 10.36 02/18/2018 10.99 02/17/2018 11.32 02/16/2018 10.92 RBC (mil/cmm) Date Value 02/20/2018 3.50 02/19/2018 3.65 02/18/2018 3.61 02/17/2018 3.65 02/16/2018 3.41 Platelet Count (thou/cmm) Date Value 02/20/2018 250 02/19/2018 254 02/18/2018 235 02/17/2018 221 02/16/2018 201 BUN (mg/dL) Date Value 02/20/2018 34 02/19/2018 39 02/18/2018 40 02/17/2018 36 02/16/2018 32 Creatinine (mg/dL) Date Value 02/20/2018 0.84 02/19/2018 0.80 02/18/2018 0.88 02/17/2018 0.88 02/16/2018 0.84 Lab Results Component Value Date PLT 250 02/20/2018 HB 11.2 02/20/2018 HCT 33.7 02/20/2018 ALB 2.5 02/09/2018 CA 8.2 02/20/2018 TBILI 0.6 02/09/2018 ALKPHOS 64 02/09/2018 AST 88 02/09/2018 GLUC 120 02/20/2018 BUN 34 02/20/2018 NA 145 02/20/2018 K 3.7 02/20/2018 CHLOR 114 02/20/2018 CO2 28 02/20/2018 ANION 7 02/20/2018 ALT 30 02/09/2018 Cholesterol, Total (mg/dL) Date Value 02/07/2018 174 LDL Calculated (mg/dL) Date Value 02/07/2018 110 HDL Cholesterol (mg/dL) Date Value 02/07/2018 51 Triglyceride (mg/dL) Date Value 02/07/2018 63 Hemoglobin A1C (%) Date Value 02/07/2018 5.1 Ammonia : 43 DATA: Diagnostic tests reviewed for today's visit: Most recent labs and imaging results. CT Brain on 02/18: No acute intracranial abnormality. EEG: No seizures recorded. No epileptiform discharges seen. Impression/Recommendations This is Jeffrey Cullen, a 67 year old male s/p 3v CABG and subsequent acute hypoxic respiratory failure secondary to HCAP, now w/ post-op/ICU delirium/agitation and acute encephalopathy. - EEG negative for seizure or epileptiform discharges -CTH negative -Check MRI to r/o stroke - Wean sedation as tolerated -Avoid offending meds such as benzos -Consider addition of Seroquel for agitation -Further management per MICU/cardio team -Will follow SIGNATURE: Suzanne Prasad PA-C PATIENT NAME: Jeffrey Cullen DATE: February 20, 2018 TIME: 1:37 PM PAGER/CONTACT #: NSICU STAFF ADDENDUM Bharat Ojeda MD Pt seen and examined, labs/vitals/imaging reviewed independently. Agree with above, reflecting my direct input. Workup unrevealing except MRI-brain still pending. As pt have suffered an embolic shower and such a pattern may not be visible on CT, await MRI results to guide further care and prognostication. PERSONAL INVOLVEMENT IN CARE: ? ?Patient/Family Updated: Patient and/or family were updated regarding the goals of care,?medical plan for the day, field service consultant recommendations, medical disposition and current medical condition/prognosis as and if clinically indicated. All questions and concerns were answered and addressed at this juncture. I agree with the resident MD note as above, except as otherwise indicated; my additional comments, if necessary, are in bold. ? This patient has a high probability of sudden, clinically significant deterioration, which requires the highest level of physician preparedness to intervene urgently. I managed/supervised life or organ supporting interventions that required frequent physician assessment. I devoted my full attention to the direct care of this patient for the amount of time indicated below. Time I spent with family or surrogate(s) is included only if the patient was incapable of providing the necessary information or participating in medical decision making. Time devoted to teaching and to any procedures I billed separately is not included. ? Critical Care Documentation: The patient has the following organ/system impairment(s): As above Time spent providing critical care services: 35 minutes. ? SIGNATURE: Bharat Ojeda MD PATIENT NAME: Jeffrey Cullen DATE: 02/20/18 TIME: 3:36 PM PAGER/CONTACT #: [phone] Previous Version Angelica Malcolm RN, RN 02/20/2018 5:26 PM Signed [facility] updated, cont to follow Juan Jauregui RN, RN 02/20/2018 9:24 PM Signed Nursing Progress Note Patient Name: Jeffrey Cullen Patient Location: [id number]* Daily Note: 2044: Pt attempted to take to MRI, pt unable to hold head without movement for the duration of procedure. MRI mynor states pt unable to do at this time. Will continue to monitor. 2100: Spoke with pt sister in [place] Trev, updated about MRI and pt throughout day. Pt sister would like NPCS to talk with Dr. Adrian Joy in [place] this is a family practice doctor who has previously seen pt. Dr. Joy will call throughout the day tomorrow. Trev who is the pt sister is acting DPOA, is closest relative and giving permission for Dr. Joy to call for information. Will continue to monitor. This note was completed by: RAINA Rapp CHAPLAIN, Chaplain 02/21/2018 12:19 PM Signed SPIRITUALCARE Spiritual Care Visit- Brief Note Name: Jeffrey Cullen Date: February 21, 2018 Notes: 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 Left SC card bedside. Transformer Assembly Supervisor Signature: CHAPLAIN Francis To contact the Spiritual Care Department: Please call [phone] or Page the On-Call Transformer Assembly Supervisor at pager [phone] Thank you for the opportunity to be of service. This is an electronically created document. IF PRINTED, PLEASE DO NOT REMOVE FROM THE CHART OR MODIFY PRINTED COPY. Keon Chance MD 02/21/2018 12:48 PM Signed CRITICAL CARE PROGRESS NOTE SERVICE DATE: February 21, 2018 SERVICE TIME: 12:41 PM Admission Date: 02/07/2018 AGE: [age] year old LOS: 14 days REASON FOR ICU ADMISSION: ACTIVE PROBLEM LIST Inguinal Hernia Without Mention of Obstruction Or Gangrene, Unilateral Or Unspecified, (Not Specified As Recurrent) Nstemi (Non-St Elevated Myocardial Infarction) ([facility]) Nsvt (Nonsustained Ventricular Tachycardia) ([facility]) Nicotine use disorder, F17.2 Malnutrition of Moderate Degree ([facility]) Subjective OVERNIGHT EVENTS: Patient is resting comfortably in bed while sedated and intubated/on the ventilator without any current distress. He still does not follow commands on either lesser sedation or no sedation. Objective VITAL SIGNS: BP 131/74 Pulse 78 Temp 36.5 ?C (97.7 ?F) Resp 20 Ht 180.3 cm (5' 10.98) Wt 109.5 kg (241 lb 6.5 oz) SpO2 98% BMI 33.68 kg/m2 24 hour Intake AND Output: Intake/Output Summary (Last 24 hours) at 02/21/18 1241 Last data filed at 02/21/18 0920 Gross per 24 hour Intake 1886.4 ml Output 1061 ml Net 825.4 ml PHYSICAL EXAM: Patient does not follow commands. RRR Few scattered crackles bilaterally without wheezing bilaterally anteriorly. Few scattered bowel sounds, soft, nontender, mildly distended. No pedal edema bilaterally. Poor turgor, but dry, intact skin. VENTILATOR INFORMATION: WEANING DATA: Settings: Invasive Ventilator Mode: Pressure Regulated Volume Control (02/21/18 1207) %FIO2: 40 Set Ventilator Respiratory Rate (BPM): 15 Tidal Volume Set (mL): 550 PEEP/CPAP (cm H2O): 5 Inspiratory Pressure Set (cm H2O): 0.9 Patient Data: Inspiratory:Expiratory Ratio: 1:3.1 Peak Inspiratory Pressure (cm H2O): 18 Plateau Pressure (cm H2O): 12 Weaning Data: Spontaneous Respiratory Rate (BPM): 17.7 INPATIENT MEDICATIONS: Current hospital medications: metoprolol tartrate (short acting) 100 mg tab(s) (LOPRESSOR) 100 mg ORAL q 8 H magnesium citrate 296 mL liquid 296 mL ORAL ONCE dexmedetomidine 400 mcg in NaCl 0.9% 100 mL (PRECEDEX) 0.2- 0.7 mcg/kg/hr INTRAVENOUS CONTINUOUS diltiazem 30 mg tab(s) (CARDIZEM) 30 mg NASOGASTRIC q 6 H 0.9% NaCl 20 mL 20 mL INTRAVENOUS PRN 0.9% NaCl 10 mL 10 mL INTRAVENOUS q 12 H 0.9% NaCl 20 mL 20 mL INTRAVENOUS PRN aspirin 162 mg chewable tab(s) 162 mg ORAL DAILY enoxaparin 105 mg injection (LOVENOX) 1 mg/kg/dose SUBCUTANEOUS q 12 HR fentaNYL iv infusion 20 mcg/mL in NaCl 0.9% 100 mL 25 mcg/hr INTRAVENOUS CONTINUOUS nystatin 5 mL oral liquid (MYCOSTATIN) 5 mL ORAL QID metoclopramide HCl 10 mg injection (REGLAN) 10 mg INTRAVENOUS q 6 H LORazepam 2 mg injection (ATIVAN) 2 mg INTRAVENOUS q 4 H PRN dextrose 40 % 15 g 15 g ORAL PRN glucagon 1 mg injection (GLUCAGEN) 1 mg INTRAMUSCULAR PRN dextrose 50% in water 25 mL syringe 12.5 g INTRAVENOUS PRN insulin regular human injection (short acting) (NovoLIN R,HumuLIN R) SUBCUTANEOUS q 6 H bisacodyl 10 mg suppository (DULCOLAX) 10 mg RECTAL DAILY PRN polyethylene glycol 3350 17 g packet (MIRALAX, GLYCOLAX) 17 g ORAL DAILY senna-docusate 8.6-50 mg 1 tablet (SENNA-S) 1 tablet ORAL BID pill splitter (patient-specific) 1 Each Miscell. (Med.Supl.;Non- Drugs) PRN Chlorhexidine Gluconate 0.12 % 15 mL (PERIDEX) 15 mL ORAL q 12 H budesonide 0.5 mg/2 mL 1 mg (PULMICORT) 1 mg INHALATION BID acetaminophen 650 mg tab(s) (TYLENOL) 650 mg ORAL q 6 H PRN dextrose 50% in water 25 mL syringe 12.5 g INTRAVENOUS PRN potassium chloride iv piggyback 20 mEq in sterile water 100 mL 20 mEq INTRAVENOUS PRN magnesium sulfate in water 2 g in sterile water 50 ml 2 g INTRAVENOUS PRN(NO DISPENSE) albuterol 2.5 mg /3 mL (0.083 %) 2.5 mg (PROVENTIL) 2.5 mg INHALATION q 2 H PRN calcium chloride 1 g in D5W 100 mL 1 g INTRAVENOUS PRN(NO DISPENSE) oxyCODONE-acetaminophen 5-325 mg 1-2 tablet (PERCOCET) 1-2 tablet ORAL q 4 H PRN morphine 2-4 mg injection 2-4 mg INTRAVENOUS q 1 H PRN pantoprazole 40 mg injection (PROTONIX) 40 mg INTRAVENOUS DAILY (6 AM) ondansetron (PF) 4 mg injection (ZOFRAN) 4 mg INTRAVENOUS q 6 H PRN propofol infusion (DIPRIVAN) 5-50 mcg/kg/min INTRAVENOUS CONTINUOUS ipratropium-albuterol 3 mL nebulizer solution (DUONEB) 3 mL INHALATION q 4 H atorvastatin 40 mg tab(s) (LIPITOR) 40 mg ORAL AT BEDTIME DATA: BLOOD GAS: CBC: Recent Labs 02/21/18 0515 02/20/18 0610 02/19/18 0550 02/18/18 0520 02/17/18 1000 02/16/18 0600 02/15/18 0530 WBC 10.22* 10.17* 10.36* 10.99* 11.32* 10.92* 10.27* HB 10.8* 11.2* 11.6* 11.6* 11.7* 10.9* 11.3* HCT 34.3* 33.7* 35.2* 35.4* 35.0* 32.5* 33.2* PLT 261 250 254 235 221 201 179 MCV 98.8* 96.3* 96.4* 98.1* 95.9* 95.3 94.9 BMP: Recent Labs 02/21/18 0515 02/20/18 0610 02/19/18 0550 02/18/18 0520 02/17/18 1000 02/16/18 0600 02/15/18 0530 GLUC 127* 120* 107* 122* 123* 110* 137* NA 147* 145 146* 146* 145 140 141 K 3.7 3.7 3.6 3.7 4.1 3.9 4.0 CHLOR 115* 114* 111* 110* 110* 112* 112* CO2 28 28 31 30 31 28 26 ANION 8 7* 8 10 8 4* 7* BUN 29* 34* 39* 40* 36* 32* 20* CREAT 0.73 0.84 0.80 0.88 0.88 0.84 0.83 CHEM: Recent Labs 02/21/18 0515 02/20/18 0610 02/19/18 0550 02/18/18 0520 02/17/18 1000 02/16/18 0600 02/15/18 0530 CA 8.4* 8.2* 8.5 8.3* 8.1* 8.1* 8.2* MG -- -- -- -- 2.5 -- -- Assessment/Plan ASSESSMENT: ACTIVE PROBLEM LIST Inguinal Hernia Without Mention of Obstruction Or Gangrene, Unilateral Or Unspecified, (Not Specified As Recurrent) Nstemi (Non-St Elevated Myocardial Infarction) ([facility]) Nsvt (Nonsustained Ventricular Tachycardia) ([facility]) Nicotine use disorder, F17.2 Malnutrition of Moderate Degree ([facility]) S/P CABG, POD # 12 Acute exacerbation of COPD secondary to HCAP Acute hypoxic respiratory failure Acute encephalopathy PLAN: Continue full ventilator support. Did not tolerate CPAP/PS again today for even ten minutes. Given both this and his ongoing encephalopathy, patient will need to undergo tracheostomy and PEG/J tube placement. Will discuss with the patient's sister regarding th need for both of the above procedures. Continue bronchodilators. Finished antibiotic course. Is undergoing further evaluation by Neurology. Tolerating tube feeds at goal rate variably. Continue Reglan 10 mg IV every 6 hours plus a bowel regimen. Continue supportive care. This patient has a high probability of sudden, clinically significant deterioration, which requires the highest level of physician preparedness to intervene urgently. I managed/supervised life or organ supporting interventions that required frequent physician assessment. I devoted my full attention to the direct care of this patient for the amount of time indicated below. Time I spent with family or surrogate(s) is included only if the patient was incapable of providing the necessary information or participating in medical decision making. Time devoted to teaching and to any procedures I billed separately is not included. PROGNOSIS: Fair Code status: Full Code. Discussed with Registered Nurse and ORAL AND MAXILLOFACIAL SURGEON. Critical Care Documentation: The patient has the following organ/system impairment(s): Respiratory failure (Acute, with Hypoxemia) and coronary artery disease Time spent providing critical care services: 39 minutes. SIGNATURE: Keon Chance MD [facility] PAGER:[phone] DATE of SERVICE: February 21, 2018 TIME of SERVICE: 12:41 PM Christofer Barajas MD 02/21/2018 1:34 PM Signed CONSULT: OTOLARYNGOLOGY SERVICE SERVICE DATE: 02/21/2018 REASON FOR CONSULT: trach Subjective Mr. Cullen is a 67 year old W male who presents for NSTEMI 02/07/18 and had CABG 02/09/18. +encephalopathy, + acute exacerbation of COPD with HCAP, not weaning from vent. No past medical history on file. +COPD PAST SURGICAL HISTORY Procedure Laterality Date - ORTHOPEDICS SURGERY HX - REPAIR ING HERNIA,5+Y/O,REDUCIBL 1990 Hernia repair, inguinal,left FAMILY HISTORY Problem Relation Age of Onset - Alcohol/Drug Father - Colon Cancer Mother - Diabetes Mother Social History Substance Use Topics - Smoking status: Current Every Day Smoker Packs/day: 2.00 Years: 25.00 Types: Cigarettes - Smokeless tobacco: Not on file - Alcohol use No Preadmission Medications: Reviewed. Current Medications: Reviewed. .Allergies As of Date: 02/07/2018 (No Known Allergies) Fully Assessed 02/07/2018 COMPLETE REVIEW OF SYSTEMS: UTO nonresponsive Objective PHYSICAL EXAM: GEN: WDWN, nonresponsive. H/F/N: No palpable salivary gland, thyroid or neck mass. Ears: Ext. No lesions. Nose Ext. No lesion. OC/OP: Lips and gums without lesions. Tongue/oral mucosa healthy. Edentulous. +ETT/OG. VITALS: BP 131/74 Pulse 78 Temp (Src) 97.7 (Temporal Artery) Resp 20 Ht 5' 10.984 (1.80m) Wt 241 lb 6.5 oz (109.5kg) SpO2 98% BMI 33.68 kg/(m2). DATA: Diagnostic tests reviewed for today's visit: Most recent labs and imaging results. Impression/Recommendations S/P CABG, POD # 12 Acute exacerbation of COPD secondary to HCAP Acute hypoxic respiratory failure Acute encephalopathy Agree with tracheostomy, plan for tomorrow 1630 (4:30pm). I will call sister after Dr Chance has updated her on situation. SIGNATURE: Christofer Barajas MD PATIENT NAME: Jeffrey Cullen DATE: February 21, 2018 TIME: 1:26 PM KEON Ricci 02/21/2018 3:32 PM Signed CARDIOTHORACIC SURGERY POSTOP PROGRESS NOTE SERVICE DATE: 02/21/2018 SERVICE TIME: 3:19 PM Subjective S/P SURGERY: Procedure(s) (LRB): BYPASS GRAFT ARTERY CORONARY ON-PUMP SINGLE CORONARY ARTERIAL GRAFT (N/A) BYPASS GRAFT ARTERY CORONARY ON-PUMP USING VENOUS GRAFT(S) AND ARTERIAL GRAFT(S); TWO VENOUS GRAFTS (N/A) ENDOSCOPIC HARVEST VEIN FOR CORONARY ARTERY BYPASS PROCEDURE (N/A) DATE OF SURGERY: 02/09/2018 POSTOP DAY #12 LOS: 14 INTERVAL EVENTS / PERTINENT ROS: Patient still intubated, not able to follow commands, tube feed residual of 300cc this AM, giving mag citrate for BM Objective Admission Weight: 104.3 kg (229 lb 15 oz) BP 124/73 Pulse 82 Temp 36.5 ?C (97.7 ?F) Resp 27 Ht 180.3 cm (5' 10.98) Wt 109.5 kg (241 lb 6.5 oz) SpO2 98% BMI 33.68 kg/m2 Body surface area is 2.34 meters squared. Min/Max/Average Temperature AND Blood Pressure: Temp (24hrs), Av.6 ?C (97.8 ?F), Min:36.5 ?C (97.7 ?F), Max:36.6 ?C (97.9 ?F) Systolic (24hrs), Av , Min:97 , Max:146 Diastolic (24hrs), Av, Min:57, Max:84 Intake/Output Summary (Last 24 hours) at 02/21/18 1519 Last data filed at 02/21/18 1300 Gross per 24 hour Intake 1803.4 ml Output 1398 ml Net 405.4 ml TELEMETRY: normal sinus rhythm PHYSICAL EXAM: General Appearance: no distress and sedated Skin: No rash on chest, arms or legs. Warm, dry. Midsternal AND SVG incision dry AND intact, without redness, drainage or edema. Mouth/Pharynx: dentures and thrush like appearence Lungs: crackles and b/l Heart: regular rhythm and afib last PM Abdomen: soft, non-tender, bowel sounds present and mildly distended Neurologic/Psychiatric: sedated, does not follow commands on sedation vacation Extremities: edema: 1+ Lines, Drains, and Airways Line Central Line Double Lumen 02/17/18 1310 Peripherally Inserted (PICC) Right Arm 5.0 Vietnamese 4 days Drain GI Feed/Drain 02/09/18 0800 Oral Gastric Midline 12 days Indwelling Urinary Catheter 02/09/18 0838 Temperature Monitoring 16 Fr 12 days Airway Airway Endotracheal Tube 02/09/18 0800 12 days DATA: Recent Labs 02/21/18 0515 02/20/18 0610 02/19/18 0550 RBC 3.47* 3.50* 3.65* WBC 10.22* 10.17* 10.36* HB 10.8* 11.2* 11.6* HCT 34.3* 33.7* 35.2* PLT 261 250 254 NA 147* 145 146* K 3.7 3.7 3.6 CHLOR 115* 114* 111* CO2 28 28 31 BUN 29* 34* 39* CREAT 0.73 0.84 0.80 GLUC 127* 120* 107* CA 8.4* 8.2* 8.5 ANION 8 7* 8 Assessment/Plan Acute NSTEMI s/p CABG x 3 -POD#12 -c/w ASA to 162, statin, increase BB to 100q8 -Post thorax vest -lovenox for dual anticoagulation. No plavix until J-Tube/Trach placement ?? Acute hypoxic AND hypercapneic respiratory failure 2/2 severe COPD and PNA -Vent management per pulmonary service -ENT on consult for tracheostomy placement ? Afib -PO Diltiazem -Increase BB to 100q8 ?? Klebsiella and E. coli HCAP -ceftriaxone complete ?? Oral Thrush -c/w nystatin ?? Volume Overload -c/w lasix 40 PO BID ?? Constipation -c/w miralax and senokot-s -Resolved with mag citrate Leukocytosis -non-febrile -c/w monitor ?? Nutrition -300cc residual this AM -continue to monitor -J-tube ordered per critical care ?? DVT ppx -Lovenox and SCDs Tests/Labs Ordered: 1. Chest X-ray 2. BMP SIGNATURE: Misti Stein PA-C PATIENT NAME: Jeffrey Cullen DATE: February 21, 2018 TIME: 3:19 PM PAGER/CONTACT #:[phone] ETX [id number] Suzanne Prasad PA-C 02/21/2018 3:28 PM Signed Neuro ICU Awaiting MRI brain to evaluate for possible embolic shower post-op CABG that may not have been visualized on CT. Further w/u unrevealing. Will follow once MRI results available for further prognostication per Dr. Ojeda. Suzanne Prasad PA-C 02/21/2018 3:27pm Keon Chance MD 02/22/2018 11:21 AM Signed CRITICAL CARE PROGRESS NOTE SERVICE DATE: February 22, 2018 SERVICE TIME: 11:09 AM Admission Date: 02/07/2018 AGE: [age] year old LOS: 15 days REASON FOR ICU ADMISSION: ACTIVE PROBLEM LIST Inguinal Hernia Without Mention of Obstruction Or Gangrene, Unilateral Or Unspecified, (Not Specified As Recurrent) Nstemi (Non-St Elevated Myocardial Infarction) ([facility]) Nsvt (Nonsustained Ventricular Tachycardia) ([facility]) Nicotine use disorder, F17.2 Malnutrition of Moderate Degree ([facility]) Subjective OVERNIGHT EVENTS: Patient is resting comfortably in bed while sedated and intubated/on the ventilator without any current distress. Objective VITAL SIGNS: BP 147/82 Pulse 62 Temp 36.5 ?C (97.7 ?F) Resp 21 Ht 180.3 cm (5' 10.98) Wt 109.5 kg (241 lb 6.5 oz) SpO2 95% BMI 33.68 kg/m2 24 hour Intake AND Output: Intake/Output Summary (Last 24 hours) at 02/22/18 1109 Last data filed at 02/22/18 1000 Gross per 24 hour Intake 1437.9 ml Output 2721 ml Net -1283.1 ml PHYSICAL EXAM: Patient does not follow commands. RRR Few scattered crackles bilaterally without wheezing bilaterally anteriorly. Few scattered bowel sounds, soft, nontender, mildly distended. No pedal edema bilaterally. Poor turgor, but dry, intact skin. VENTILATOR INFORMATION: WEANING DATA: Settings: Invasive Ventilator Mode: Pressure Regulated Volume Control (02/22/18 0839) %FIO2: 40 Set Ventilator Respiratory Rate (BPM): 15 Tidal Volume Set (mL): 550 PEEP/CPAP (cm H2O): 5 Inspiratory Pressure Set (cm H2O): 0.9 Patient Data: Inspiratory:Expiratory Ratio: 1:3.4 Peak Inspiratory Pressure (cm H2O): 14 Plateau Pressure (cm H2O): 13 Weaning Data: Spontaneous Respiratory Rate (BPM): 17.7 INPATIENT MEDICATIONS: Current hospital medications: metoprolol tartrate (short acting) 100 mg tab(s) (LOPRESSOR) 100 mg ORAL q 8 H dexmedetomidine 400 mcg in NaCl 0.9% 100 mL (PRECEDEX) 0.2- 0.7 mcg/kg/hr INTRAVENOUS CONTINUOUS diltiazem 30 mg tab(s) (CARDIZEM) 30 mg NASOGASTRIC q 6 H 0.9% NaCl 20 mL 20 mL INTRAVENOUS PRN 0.9% NaCl 10 mL 10 mL INTRAVENOUS q 12 H 0.9% NaCl 20 mL 20 mL INTRAVENOUS PRN aspirin 162 mg chewable tab(s) 162 mg ORAL DAILY enoxaparin 105 mg injection (LOVENOX) 1 mg/kg/dose SUBCUTANEOUS q 12 HR fentaNYL iv infusion 20 mcg/mL in NaCl 0.9% 100 mL 25 mcg/hr INTRAVENOUS CONTINUOUS nystatin 5 mL oral liquid (MYCOSTATIN) 5 mL ORAL QID metoclopramide HCl 10 mg injection (REGLAN) 10 mg INTRAVENOUS q 6 H LORazepam 2 mg injection (ATIVAN) 2 mg INTRAVENOUS q 4 H PRN dextrose 40 % 15 g 15 g ORAL PRN glucagon 1 mg injection (GLUCAGEN) 1 mg INTRAMUSCULAR PRN dextrose 50% in water 25 mL syringe 12.5 g INTRAVENOUS PRN insulin regular human injection (short acting) (NovoLIN R,HumuLIN R) SUBCUTANEOUS q 6 H bisacodyl 10 mg suppository (DULCOLAX) 10 mg RECTAL DAILY PRN polyethylene glycol 3350 17 g packet (MIRALAX, GLYCOLAX) 17 g ORAL DAILY senna-docusate 8.6-50 mg 1 tablet (SENNA-S) 1 tablet ORAL BID pill splitter (patient-specific) 1 Each Miscell. (Med.Supl.;Non- Drugs) PRN Chlorhexidine Gluconate 0.12 % 15 mL (PERIDEX) 15 mL ORAL q 12 H budesonide 0.5 mg/2 mL 1 mg (PULMICORT) 1 mg INHALATION BID acetaminophen 650 mg tab(s) (TYLENOL) 650 mg ORAL q 6 H PRN dextrose 50% in water 25 mL syringe 12.5 g INTRAVENOUS PRN potassium chloride iv piggyback 20 mEq in sterile water 100 mL 20 mEq INTRAVENOUS PRN magnesium sulfate in water 2 g in sterile water 50 ml 2 g INTRAVENOUS PRN(NO DISPENSE) albuterol 2.5 mg /3 mL (0.083 %) 2.5 mg (PROVENTIL) 2.5 mg INHALATION q 2 H PRN calcium chloride 1 g in D5W 100 mL 1 g INTRAVENOUS PRN(NO DISPENSE) oxyCODONE-acetaminophen 5-325 mg 1-2 tablet (PERCOCET) 1-2 tablet ORAL q 4 H PRN morphine 2-4 mg injection 2-4 mg INTRAVENOUS q 1 H PRN pantoprazole 40 mg injection (PROTONIX) 40 mg INTRAVENOUS DAILY (6 AM) ondansetron (PF) 4 mg injection (ZOFRAN) 4 mg INTRAVENOUS q 6 H PRN propofol infusion (DIPRIVAN) 5-50 mcg/kg/min INTRAVENOUS CONTINUOUS ipratropium-albuterol 3 mL nebulizer solution (DUONEB) 3 mL INHALATION q 4 H atorvastatin 40 mg tab(s) (LIPITOR) 40 mg ORAL AT BEDTIME DATA: BLOOD GAS: CBC: Recent Labs 02/22/18 0430 02/21/18 0515 02/20/18 0610 02/19/18 0550 02/18/18 0520 02/17/18 1000 02/16/18 0600 WBC 10.26* 10.22* 10.17* 10.36* 10.99* 11.32* 10.92* HB 11.0* 10.8* 11.2* 11.6* 11.6* 11.7* 10.9* HCT 33.7* 34.3* 33.7* 35.2* 35.4* 35.0* 32.5* PLT 272 261 250 254 235 221 201 MCV 98.3* 98.8* 96.3* 96.4* 98.1* 95.9* 95.3 BMP: Recent Labs 02/22/18 0430 02/21/18 0515 02/20/18 0610 02/19/18 0550 02/18/18 0520 02/17/18 1000 02/16/18 0600 GLUC 110* 127* 120* 107* 122* 123* 110* NA 147* 147* 145 146* 146* 145 140 K 3.7 3.7 3.7 3.6 3.7 4.1 3.9 CHLOR 114* 115* 114* 111* 110* 110* 112* CO2 28 28 28 31 30 31 28 ANION 9 8 7* 8 10 8 4* BUN 27* 29* 34* 39* 40* 36* 32* CREAT 0.78 0.73 0.84 0.80 0.88 0.88 0.84 CHEM: Recent Labs 02/22/18 0430 02/21/18 0515 02/20/18 0610 02/19/18 0550 02/18/18 0520 02/17/18 1000 02/16/18 0600 CA 8.2* 8.4* 8.2* 8.5 8.3* 8.1* 8.1* MG -- -- -- -- -- 2.5 -- Assessment/Plan ASSESSMENT: ACTIVE PROBLEM LIST Inguinal Hernia Without Mention of Obstruction Or Gangrene, Unilateral Or Unspecified, (Not Specified As Recurrent) Nstemi (Non-St Elevated Myocardial Infarction) ([facility]) Nsvt (Nonsustained Ventricular Tachycardia) ([facility]) Nicotine use disorder, F17.2 Malnutrition of Moderate Degree (Hcc) S/P CABG, POD # 13 Acute exacerbation of COPD secondary to HCAP Acute hypoxic respiratory failure Acute encephalopathy PLAN: Continue full ventilator support. Patient is going for tracheostomy and PEJ tube placement today. Continue bronchodilators. Finished antibiotic course. Continue Reglan 10 mg IV every 6 hours. Will see if the patient tolerates tube feeds better after J tube is used starting tomorrow. Continue supportive care. Continue ICU monitoring. Spoke with [facility] patient liaison to evaluate him for placement. This patient has a high probability of sudden, clinically significant deterioration, which requires the highest level of physician preparedness to intervene urgently. I managed/supervised life or organ supporting interventions that required frequent physician assessment. I devoted my full attention to the direct care of this patient for the amount of time indicated below. Time I spent with family or surrogate(s) is included only if the patient was incapable of providing the necessary information or participating in medical decision making. Time devoted to teaching and to any procedures I billed separately is not included. PROGNOSIS: Fair Code status: Full Code. Discussed with Registered Nurse. Critical Care Documentation: The patient has the following organ/system impairment(s): Respiratory failure (Acute, with Hypoxemia) and coronary artery disease Time spent providing critical care services: 39 minutes. SIGNATURE: Koen Chance MD [facility] PAGER:[phone] DATE of SERVICE: February 22, 2018 TIME of SERVICE: 11:09 AM Chandni Lopez, Highway Patrol Officer 02/22/2018 11:25 AM Signed LTAC referral created to: Andrade Pryor. Awaiting acceptance. Elaine Sweeney MD 02/22/2018 2:28 PM Signed INTERVENTIONAL RADIOLOGY POST PROCEDURE NOTE DATE: 02/22/18 NAME: Jeffrey Cullen LOG ID: [id number] Pre-Procedure Diagnosis: S/p CABG, encephalopathy, respiratory failure. Need for prolonged enteral nutrition. Post Procedure Diagnosis: Same. Senior Controller: Dr. Elaine Sweeney Procedure: US/fluoroscopic guided percutaneous gastrojejunostomy tube placement Anesthesia: Procedural Sedation Findings: Successful placement of 18 Vietnamese percutaneous gastrojejunostomy tube with tip in the proximal jejunum. Estimated Blood Loss: Minimal (Less Than 25 mL). Specimen: None Complications: None Full report with procedural details to follow and will become available under Imaging Reports. Please contact for any questions or concerns. SIGNATURE: Elaine Sweeney MD PATIENT NAME: Jeffrey Cullen DATE: February 22, 2018 TIME: 2:27 PM PAGER/CONTACT #: Angelica Malcolm, RN, RN 02/22/2018 3:41 PM Signed Referral made to [facility], s/p G-J tube, plan to trach later today, will update [facility]. CHEST PA AND LATERAL Observed: 11/22/2017 Status: F Source: [place] 10:27 AM [facility] REPOSITORY [facility] [address] [place] [address] Chest PA and Lateral MR#: [id number] Acct: [id number] Name: JEFFREY CULLEN Rep #: [id number] : 1950 M 67 From: Isacc Adams MD PCP: Richie De La Torre MD Status: REG CLI Study: Chest PA and Lateral Date of Exam: 11/22/17 Exam# [id number] Ordering Dr: Richie De La Torre MD STUDY: X-RAY CHEST REASON FOR EXAM: Male, 67 years old. Shortness of breath and cough TECHNIQUE: 2 PA and lateral views of the chest. COMPARISON: None. FINDINGS: There are interstitial fibrotic changes of the lungs. There is no demonstrated pleural abnormality. Normal size heart. Normal mediastinum and john. Normal visualized pulmonary arteries. Normal visualized aortic arch and descending thoracic aorta. Normal visualized thoracic spine. Normal visualized ribs, clavicles, and shoulders. There is no demonstrated abnormality of the visualized soft tissue structures of the upper abdomen. RAD/Chest PA and Lateral IMPRESSION: Chronic interstitial changes, no superimposed acute pulmonary process Electronically Signed: Matias Adams MD at 14:48 EST , Service support , CC: Richie De La Torre MD Residential Carpenter: Signed ALLERGIES ALLERGIES DATE TYPE / CODE NAME / CODE REACTION SEVERITY SOURCE 08/16/2018 Drug No Known Unknown [facility] Allergy/416 Allergies/N24657 Hospital 651553(SNOM 0388(RXNORM) Repository ED CT) 04/22/2018 Environ/420 BEE STING UNKNOWN [facility] 148972(SNOM Other [place] ED CT) Repository NG/20583425 BEE STING [facility] 6(SNOMED Health System CT) Repository Drug NO KNOWN [facility] Class/61398 ALLERGIES Other [place] 1003(SNOMED Repository CT) NG/93404912 NO KNOWN [facility] 6(SNOMED ALLERGIES Health System CT) Repository ENCOUNTERS ENCOUNTERS ADMIT/DISCHARGE ACCOUNT NUMBER ADMITTING ENCOUNTER LOCATION SOURCE CLASS 11/01/2018 [id number] Ambulatory [facility] ding:CR Repository 10/27/2018/10/27/20 [id number] Ambulatory [address] ding:CR Repository 10/23/2018/10/23/20 [id number] Ambulatory BMSBuilding: [place] 18 BMS.[facility] Repository 10/20/2018/10/20/20 [id number] Emergency [address] Repository 10/03/2018 [id number] Ambulatory [facility] ding:[facility] Repository 10/03/2018 [id number] Ambulatory BMSBuilding: [place] BMS.CF.[facility] Repository 09/29/2018 [id number] Ambulatory BMSBuilding: [place] [facility] Repository 09/27/2018/09/27/20 [id number] Ambulatory [address] ding:CR Repository 09/22/2018 [id number] Ambulatory BMSBuilding: [place] [facility] Repository 09/19/2018/09/19/20 [id number] Ambulatory BMSBuilding: [place] 18 [facility]MS.[facility] Repository 09/05/2018 [id number] Ambulatory [facility] ding:CR Repository 08/16/2018 [id number] Ambulatory [facility] ding:LAB Repository 08/16/2018/08/16/20 [id number] Ambulatory BMSBuilding: [place] 18 BMS.[facility] Repository 08/11/2018 [id number] Ambulatory BMSBuilding: [place] BMS.[facility] Repository 07/26/2018/07/26/20 [id number] Ambulatory BMSBuilding: [place] 18 BMS.[facility] Repository 06/14/2018/06/14/20 [id number] Ambulatory BMSBuilding: [place] 18 BMS.[facility] Repository 06/07/2018/06/07/20 [id number] Ambulatory BMSBuilding: [place] 18 BMS.[facility] Repository 2018 [id number] Ambulatory [facility] Repository 2018 [id number] Ambulatory [facility] MEDICAL [place]ository [place] 05/09/2018 [id number] Ambulatory [facility] Repository 05/09/2018 [id number] Ambulatory [facility] Repository [place] 04/27/2018/05/25/20 [id number] [address] A [facility] [place] Repository 04/22/2018/04/27/20 [id number] [facility], Inpatient [address] [facility] 04/22/2018/04/27/20 [id number] [facility] Inpatient [address] MEDICAL Repository [place]: 5212Bed: 04/22/2018/04/22/20 [id number] Emergency [address] Repository 04/17/2018 [id number] [facility], Ambulatory [facility] Repository 04/17/2018/04/17/[id number] MEDICAL Repository [place]:AKIRRoom: POOLBed: 12 02/07/2018/03/13/20 [id number] [facility], Inpatient [place] [facility] Encounter Clinic Other [place] Repository 02/07/2018/03/13/20 [id number] ABUQAYYAS, Inpatient [facility] 18 M.D. SAUD Encounter [facility] MEDICAL Repository [place] ng:CVICRoom: 3237Bed: 11/22/2017 [id number] Ambulatory [place] [facility] ding:RAD Repository PAYERS PAYERS ENCOUNTER GUARANTOR PAYER SUBSCRIBER SOURCE 11/01/2018 JEFFREY L INDOE Primary JEFFREY L INDOE [place] [address] Insurance[place] [facility] [place] BPolicy Number: [id number] [address]Msw: [id number] Repository Date:2018-09-05 () 11/01/2018 Secondary JEFFREY L INDOE [place] Insurance:HUMANA Jr.: [facility] [id number] Hospital Number: Repository [id number] Date:[id number] [address] [place] [address]AM: 11/01/2018 Tertiary NOT GIVENUNK [place] Insurance:SELF PAY [facility] Number: Effective Repository Date:2018-10-28 10/27/2018 JEFFREY L INDOE Primary JEFFREY L INDOE [place] [address] Insurance:HUMANA Jr.: Community [facility] [place], MEDICARE PPOPolicy [id number] Corners Regional Health Center [address]Bbu: Number: Repository [id number] () Date:[id number] [address]MQ: 10/27/2018 Secondary JEFFREY L INDOE [place] Insurance:MEDICARE Jr.: [facility] PART A olicy Number: [id number] Hospital [id number] Repository Date:2018-09-05 10/27/2018 Tertiary NOT GIVENUNK [place] Insurance:SELF PAY [facility] Number: Effective Repository Date:2018-09-28 10/23/2018 JEFFREY L INDOE Primary JEFFREY L INDOE [place] [address] Insurance:MEDICARE Jr.: [facility] Number: [id number] Corners Regional Health Center [address]Qpx: [id number] Repository Date:2018-10-23 () 10/23/2018 Secondary JEFFREY L INDOE [place] Insurance:HUMANA Jr.: [facility] [id number] Hospital Number: Repository [id number] Date:2622-52-04BD [address] [address]YO: 10/23/2018 Tertiary NOT GIVENUNK [place] Insurance:SELF PAY [facility] Number: Effective Repository Date:2018-10-23 10/03/2018 JEFFREY L INDOE Primary JEFFREY L INDOE [place] [address] Insurance:MEDICARE Jr.: [facility] Number: [id number] Corners Regional Health Center [address]Mxs: [id number] Repository Date:2018-09-19 () 10/03/2018 Secondary JEFFREY L INDOE [place] Insurance:HUMANA Jr.: [facility] [id number] Hospital Number: Repository [id number] Date:[id number] [address]NH: 10/03/2018 Tertiary NOT GIVENUNK [place] Insurance:SELF PAY [facility] Number: Effective Repository Date:2018-09-19 10/03/2018 JEFFREY L INDOE Primary JEFFREY L INDOE [place] [address] Insurance:MEDICARE Jr.: [facility] PART A [facility] Number: [id number] Corners Regional Health Center [address]Kwk: [id number] Repository Date:2018-09-19 () 10/03/2018 Secondary JEFFRYE L INDOE [place] Insurance:HUMANA Jr.: [facility] [id number] Hospital Number: Repository [id number] Date:[id number] [address]QJ: 10/03/2018 Tertiary NOT GIVENUNK [place] Insurance:SELF PAY [facility] Number: Effective Repository Date:2018-10-03 09/29/2018 JEFFREY L INDOE Primary JEFFREY L INDOE [place] [address] Insurance:HUMANA Jr.: Community [facility] [place], MEDICARE PPOPolicy [id number] Corners Regional Health Center [address]Ulx: Number: Repository [id number] () Date:[id number] [address]DE: 09/29/2018 Secondary JEFFREY L INDOE [place] Insurance:MEDICARE Jr.: [facility]: [id number] Hospital [id number] Repository Date:2018-09-29 09/29/2018 Tertiary NOT GIVENUNK [place] Insurance:SELF PAY [facility] Number: Effective Repository Date:2018-09-29 09/27/2018 JEFFREY L INDOE Primary JEFFREY L INDOE [place] [address] Insurance:[place]ICARE Jr.: [facility] [place] BPolicy Number: [id number] Corners Regional Health Center [address]Xgy: [id number] Repository Date:2018-09-05 () 09/27/2018 Secondary JEFFREY L INDOE [place] Insurance:HUMANA Jr.: [facility] [id number] Hospital Number: Repository [id number] Date:[id number] [address]NZ: 09/27/2018 Tertiary NOT GIVENUNK [place] Insurance:SELF PAY [facility] Number: Effective Repository Date:2018-09-05 09/22/2018 JEFFREY L INDOE Primary JEFFREY L INDOE [place] [address] Insurance:MEDICARE Jr.: [facility] [place] BPolicy Number: [id number] Corners Regional Health Center [address]Cog: [id number] Repository Date:2018-09-05 () 09/22/2018 Secondary JEFFREY L INDOE [place] Insurance:HUMANA Jr.: [facility] [id number] Hospital Number: Repository [id number] Date:5225-14-59PQ[address] [address]KV: 09/22/2018 Tertiary NOT GIVENUNK [place] Insurance:SELF PAY [facility] Number: Effective Repository Date:2018-09-22 09/19/2018 JEFFREY L INDOE Primary JEFFREY L INDOE [place] Jr.[address] Insurance[place]IC[place] Jr[place] [facility] [place] BPolicy Number: [id number] [address]Rjz: [id number] Repository Date:2018-09-18 () 09/19/2018 Secondary JEFFREY L INDOE [place] Insurance:HUMANA Jr.: Community MEDICARE PPOPolicy [id number] Hospital Number: Repository [id number] Date:[id number] [address]RY: 09/19/2018 Tertiary NOT GIVENUNK [place] Insurance:SELF PAY [facility] Number: Effective Repository Date:2018-09-18 09/05/2018 JEFFREY L INDOE Primary JEFFREY L INDOE [place] Jr.[address] [place] [facility] [place] BPolicy Number: [id number] [address]Wct: [id number] Repository Date:2018-09-01 () 09/05/2018 Secondary JEFFREY L INDOE [place] Insurance:HUMANA Jr.: [facility] [id number] Hospital Number: Repository [id number] Date:1441-63-63GV [address] [address]UK: 09/05/2018 Tertiary NOT GIVENUNK [place] Insurance:SELF [place] [facility] Number: Effective Repository Date:2018-09-01 08/16/2018 JEFFREY L Primary JEFFREY L [place] [id number] Insurance:MEDICARE INDOEDOB: [facility] PART A BPolicy Number: [id number] [place], [place] [id number] Repository [phone]: ([phone]) Date:2018-08-16 () 08/16/2018 Secondary JEFFREY L [place] Insurance:HUMANA INDOEDOB: [facility] [id number] Hospital Number: Repository [id number] Date:6507-17-93EY [address] [place] [address]EZ: 08/16/2018 Tertiary NOT GIVENUNK [place] Insurance:SELF PA[place] [facility] Number: Effective Repository Date:2018-08-16 08/16/2018 JEFFREY L Primary JEFFREY L [place] [id number] Insurance:MEDICARE INDOEDOB: [facility] PART A BPolicy Number: [id number] [place], [place] [id number] Repository [address]Ned: 330) Date:2018-08-02 () 08/16/2018 Secondary JEFFREY L [place] Insurance:HUMANA INDOEDOB: [facility] [id number] Hospital Number: Repository [id number] Date:7959-55-29WY [address] [place] [address]JD: 08/16/2018 Tertiary NOT GIVENUNK [place] Insurance:SELF PAY [facility] Number: Effective Repository Date:2018-08-16 08/11/2018 JEFFREY L Primary JEFFREY L [place] [id number] Insurance:MEDICARE INDOEDOB: [facility] PART A BPolicy Number: [id number] [place], [place] [id number] Repository [address]Hkq: (330) Date:2018-08-11 () 08/11/2018 Secondary JEFFREY L [place] Insurance:HUMANA INDOEDOB: [facility] [id number] Hospital Number: Repository [id number] Date:4715-75-83TU [address] [address]GO: 08/11/2018 Tertiary NOT GIVENUNK [place] Insurance:SELF PAY [facility] Number: Effective Repository Date:2018-08-11 07/26/2018 JEFFREY [id number] Primary JEFFREY INDOEDOB: [place] [place] Insurance[place]MEDICARE [id number] PART A BPolicy Number: Hospital [address]Iou: [phone] [id number] Repository [phone] () Date:2018-06-14 07/26/2018 Secondary JEFFREY INDOEDOB: [place] Insurance:HUMANA [id number] [facility] Number: Repository [id number] Date:5038-10-55AY [address] [address]BJ: 07/26/2018 Tertiary NOT GIVENUNK [place] Insurance:SELF PAY [facility] Number: Effective Repository Date:2018-07-26 06/14/2018 JEFFREY [id number] Primary JEFFREY INDOEDOB: [place] [place] Insurance[place]MEDICARE [id number] PART A BPolicy Number: Hospital [address]Axa: [phone] [id number] Repository [phone] () Date:2018-06-07 06/14/2018 Secondary JEFFREY INDOEDOB: [place] Insurance:HUMANA [id number] Number: Repository [id number] Date:4458-33-60JU [address] [address]EF: 06/14/2018 Tertiary NOT GIVENUNK [place] Insurance:SELF PAY [facility] Number: Effective Repository Date:2018-06-14 06/07/2018 JEFFREY [id number] Primary JEFFREY INDOEDOB: [place] [address] [place] Insurance:MEDICARE [id number] PART A BPolicy Number: Hospital [address]Kra: ([phone]) [id number] Repository [phone] () Date:2018-06-06 06/07/2018 Secondary JEFFREY INDOEDOB: [place] Insurance:HUMANA [id number] [facility] Number: Repository [id number] Date:6312-92-94MV [address] [address]RM: 06/07/2018 Tertiary NOT GIVENUNK [place] Insurance:SELF PAY [facility]: Effective Repository Date:2018-06-07 2018 JEFFREY L Primary JEFFREY L [facility] INDOEDOB: Insurance:MEDICARE A INDOEDOB: Health System AND BPolicy Number: [id number] Repository [place] [id number] [place] Date: [address]Fub: (HP) 2018 Secondary JEFFREY L [facility] Insurance:HUMANA INDOEDOB: Health System MEDICARE [id number] Repository SUPPLEMENTPolicy Number: [id number] Date: 05/09/2018 JEFFREY L Primary JEFFREY L [facility] INDOEDOB: Insurance:MEDICARE A INDOEDOB: Health System AND BPolicy Number: [id number] Repository [place] [id number] [place] Date: [address]Apm: (HP) 05/09/2018 Secondary JEFFREY L [facility] Insurance:HUMANA INDOEDOB: [facility] MEDICARE [id number] Repository SUPPLEMENTPolicy Number: [id number] Date: 04/22/2018 JEFFREY L Primary JEFFREY L [facility] INDOEDOB: Insurance:MEDICARE A INDOEDOB: Health System AND BPolicy Number: [id number] Repository [place] [id number] [place] Date: [address]Ytz: (HP) 04/22/2018 Secondary JEFFREY L [facility] Insurance:HUMANA INDOEDOB: Health System MEDICARE [id number] Repository SUPPLEMENTPolicy Number: [id number] Date: 04/17/2018 JEFFREY L Primary JEFFREY L [facility] INDOEDOB: Insurance:MEDICARE A INDOEDOB: Health System AND BPolicy Number: [id number] Repository [facility] [id number] [place], [place] Date: [address]Mzf: () 04/17/2018 Secondary JEFFREY L [facility] Insurance:HUMANA INDOEDOB: Health System MEDICARE [id number] Repository SUPPLEMENTPolicy Number: [id number] Date: 02/07/2018 JEFFREY L Primary JEFFREY L [facility] INDOEDOB: Insurance:MEDICARE A INDOEDOB: Health System AND BPolicy Number: [id number] [facility] [id number] [place], [place] Date: [address]Kyp: () 02/07/2018 Secondary JEFFREY L [facility] Insurance:HUMANA INDOEDOB: Health System MEDICARE [id number] Repository SUPPLEMENTPolicy Number: [id number] Date: 11/22/2017 JEFFREY [id number] Primary JEFFREY INDOEDOB: [place] [facility] Insurance:MEDICARE [id number] [place] PART A BPolicy Number: [facility] [address]Miu: ([phone] [id number] Repository [phone] (HP) Date:2017-11-22 11/22/2017 Secondary JEFFREY INDOEDOB: [place] Insurance:HUMANA [id number] [facility] Number: Repository [id number] Date:7091-33-12IN[address] [address]JM: 11/22/2017 Tertiary NOT GIVENUNK [place] Insurance:SELF PAY [facility] Number: Effective Repository Date:2017-11-22
== END 2018-11-27 23:59 ==
LOC: CR 06:30
PROVIDERS: Family Provider Family Medicine; PCP Family Medicine; Referring Provider Internal Medicine Cardiovascular Disease; Visit Provider Internal Medicine Cardiovascular Disease
DX: I48.0 Paroxysmal atrial fibrillation (principal); I25.5 Ischemic cardiomyopathy; I25.10 Atherosclerotic heart disease of native coronary artery without angina pectoris; E78.5 Hyperlipidemia, unspecified; I10 Essential (primary) hypertension; Z95.1 Presence of aortocoronary bypass graft
CPT/HCPCS: 93798

== ENCOUNTER → 2018-12-19 09:41 | Outpatient (CLI) | payer MEDICARE, OTHER, SELFPAY ==
[2018-12-19 09:17] VITALS: BMI 30.4
[2018-12-19 10:53] LABS: BNP,B-Type NATRIURETIC PEPTIDE 126.8 pg/mL (0-100)
--- OUTSIDE RECORDS SUMMARY | 2019-02-20 11:26 | XMS RPT_ITS ---
:1950 Author Organization OHIP Support Name Relationship Address Phone TREV CARMEN Unavailable UNKNOWN + UNKNOWN, UNKNOWN UNKNOWN R Unavailable Unavailable Unavailable KERMIT TREV Unavailable UNKNOWN + UNKNOWN, UNKNOWN UNKNOWN R Unavailable Unavailable Unavailable KERMIT TREV Unavailable Unavailable + R Unavailable Unavailable Unavailable KERMIT TREV Unavailable Unavailable + R Unavailable Unavailable Unavailable KERMIT TREV Unavailable Unavailable + R Unavailable Unavailable Unavailable KERMIT TREV Unavailable . + ., [place] . R Unavailable Unavailable Unavailable KERMIT TREV Unavailable Unavailable + R Unavailable Unavailable Unavailable KERMIT TREV Unavailable Unavailable + R Unavailable Unavailable Unavailable KERMIT TREV Unavailable . + ., [place] . R Unavailable Unavailable Unavailable KERMIT TREV Unavailable . + ., [place] . R Unavailable Unavailable Unavailable KERMIT TREV Unavailable Unavailable + R Unavailable Unavailable Unavailable KERMIT TREV Unavailable . + ., [place] . R Unavailable Unavailable Unavailable KERMIT TREV Unavailable Unavailable + R Unavailable Unavailable Unavailable KERMIT TREV Unavailable Unavailable + UE Unavailable Unavailable Unavailable UE Unavailable Unavailable Unavailable UE Unavailable Unavailable Unavailable UE Unavailable Unavailable Unavailable UE Unavailable Unavailable Unavailable UE Unavailable Unavailable Unavailable Care Team Providers Name Role Phone Tonia Pickard ELECTRICAL INSTRUMENTATION TECHNICIAN-C Attending Unavailable Brown, Richie Referring Unavailable Brown, Richie Primary Care Unavailable Brown, Richie Attending Unavailable Brown, Richie Referring Unavailable Brown, Richie Primary Care Unavailable Brown, Richie Attending Unavailable Brown, Richie Referring Unavailable Brown, Richie Primary Care Unavailable Marissa Coy Attending Unavailable Melissa, Dalton Attending Unavailable Brown, Richie Referring Unavailable Brown, Richie Primary Care Unavailable Melissa, Dalton Attending Unavailable Melissa, [place] Referring Unavailable Brown, Richie Primary Care Unavailable Melissa, Dalton Attending Unavailable Melissa, [place] Referring Unavailable Brown, Richie Primary Care Unavailable Melissa, Dalton Attending Unavailable Melissa, Dalton Referring Unavailable Brown, Richie Primary Care Unavailable Brown, Richie Attending Unavailable Brown, Richie Referring Unavailable Melissa, [place] Attending Unavailable Melissa, [place] Referring Unavailable Brown, Richie Primary Care Unavailable Melissa, [place] Attending Unavailable Melissa, [place] Referring Unavailable Brown, Richie Primary Care Unavailable Roof, Kishore H Attending Unavailable Brown, Richie Referring Unavailable Roof, Kishore H Attending Unavailable Roof, Kishore H Referring Unavailable Brown, Richie Primary Care Unavailable Faith Bagley Attending Unavailable Brown, Richie Attending Unavailable Brown, Richie Primary Care Unavailable Brown, Richie Referring Unavailable [place] Qu[place] Attending Unavailable Melissa, Dalton Referring Unavailable Kiersten Chun Attending Unavailable Brown, Richie Referring Unavailable Melissa, Dalton Attending Unavailable Melissa, [place] Referring Unavailable Brown, Richie Primary Care Unavailable Jeffrey Conteh Attending Unavailable Brown, Richie Referring Unavailable ANN-MARIEGIO Admitting Unavailable ANN-MARIEGIO Attending Unavailable MIGUEL ANGEL JIMENEZ Consulting Unavailable SAUD MARIO Admitting Unavailable BEATA MARIN Attending Unavailable JOANNA CARRERA Consulting Unavailable ELAINE SWEENEY Admitting Unavailable ELAINE SWEENEY Attending Unavailable GRACE PAEZ Attending Unavailable MUAKKASSA, FARID CARLOTA Admitting Unavailable MUAKKASSA, FARID CARLOTA Attending Unavailable LYNNE CHRISTY Consulting Unavailable LURDES SANTILLAN (KEON) Referring Unavailable LURDES SANTILLAN (KEON) Referring Unavailable ASHLEE PALACIOS Attending Unavailable Casandra MARIN Attending Unavailable Casandra MARIO SAUD Admitting Unavailable BROWN, RICHIE Primary Care Unavailable [...] Primary Care Unavailable IMCA Primary Care Unavailable HARRISON, LAURITAID F Admitting Unavailable HARRISON, FARID F Attending Unavailable Bert Bain Consulting Unavailable LYNNE CHRISTY Consulting Unavailable MARIBELL, LURDES Referring Unavailable IMCA Primary Care Unavailable MARIBELLLURDES Referring Unavailable IMCA Primary Care Unavailable PROBLEMS PROBLEMS DATE TYPE CONDITION / CODE ATTENDING STATUS SOURCE 12/19/2018 Unknown R06.09 - Other forms Kishore Mccollum Active [facility] of dyspnea / Community R06.09(ICD-10) Hospital Repository 11/28/2018 Unknown I48.0 - Paroxysmal Melissa, Dalton Active [facility] atrial fibrillation Community / I48.0(ICD-10) Hospital Repository 10/20/2018 Active Shortness of breath PALACIOS, ASHLEE Active [facility] / R06.02(ICD-10) [facility] Other [place] Repository 11/24/2018 Unknown I73.9 - Peripheral Brown, Richie Active [facility] vascular disease, Community unspecified / Hospital I73.9(ICD-10) Repository 10/13/2018 Unknown R00.1 - Bradycardia, [place] Active [facility] unspecified / Community R00.1(ICD-10) Hospital Repository 09/28/2018 Unknown I25.5 - Ischemic Brown, Richie Active [facility] cardiomyopathy / Community I25.5(ICD-10) Hospital Repository 09/28/2018 Unknown Z95.1 - Presence of Brown, Richie Active [facility] aortocoronary bypass Community graft / Hospital Z95.1(ICD-10) Repository 09/28/2018 Unknown E78.5 - Brown, Richie Active [facility] Hyperlipidemia, Community unspecified / Hospital E78.5(ICD-10) Repository 09/28/2018 Unknown I10 - Essential Brown, Richie Active [facility] (primary) Community hypertension / Hospital I10(ICD-10) Repository 09/28/2018 Unknown M79.604 - Pain in Brown, Richie Active [facility] right leg / Community M79.604(ICD-10) Hospital Repository 09/28/2018 Unknown M79.605 - Pain in Brown, Richie Active [facility] left leg / Community M79.605(ICD-10) Hospital Repository 09/28/2018 Unknown M25.50 - Pain in Brown, Richie Active [facility] unspecified joint / Community M25.50(ICD-10) Hospital Repository 10/10/2018 Unknown I25.10 - Melissa, [place] Active [facility] Atherosclerotic Community heart disease of Hospital [place] coronary Repository artery without angina pectoris / I25.10(ICD-10) 07/26/2018 Unknown I25.810 - Brown, Richie Active [facility] Atherosclerosis of Community coronary artery Hospital bypass graft(s) Repository without angina pectoris / I25.810(ICD-10) 07/26/2018 Unknown M19.90 - Unspecified Brown, Richie Active [facility] osteoarthritis, Community unspecified site / Hospital M19.90(ICD-10) Repository 04/27/2018 Active Unknown / GIO JACOBSEN Active [facility] UNK(Unknown) [facility] Main [place] Repository 04/27/2018 Active Atherosclerosis of MUAKKASSA, Active [facility] coronary artery [facility] Other bypass graft(s) [place] without angina Repository pectoris / I25.810(ICD-10) 04/27/2018 Active Weakness / MUAKKASSA, Active [facility] R53.1(ICD-10) [facility] Other [place] Repository 04/27/2018 Active Chronic respiratory MUAKKASSA, Active [facility] failure, unspecified [facility] Other whether with hypoxia [place] or hypercapnia / Repository J96.10(ICD-10) 04/27/2018 Active Unspecified severe MUAKKASSA, Active [facility] protein-calorie [facility] Other malnutrition / [place] E43(ICD-10) Repository 04/27/2018 Active Encephalopathy, MUAKKASSA, Active [facility] unspecified / [facility] Other G93.40(ICD-10) [place] Repository 04/22/2018 Active Paroxysmal atrial MUAKKASSA, Active [facility] fibrillation / [facility] Other I48.0(ICD-10) [place] Repository 04/22/2018 Active Nontraumatic MUAKKASSA, Active [facility] subdural hemorrhage, [facility] Other unspecified / [place] I62.00(ICD-10) Repository 04/22/2018 Active Fall from non-moving MUAKKASSA, Active [facility] wheelchair, initial [facility] Other encounter / [place] W05.0XXA(ICD-10) Repository 04/27/2018 Admitting Unknown / MUAKKASSA, Active [place] General diagnosis UNK(Unknown) [facility] Repository 04/22/2018 Active Unspecified fall, DULLE, GRACE Active [facility] initial encounter / [facility] Other W19.XXXA(ICD-10) [place] Repository 04/22/2018 Active Laceration without DULLE, GRACE Active [facility] foreign body of [facility] Other other part of head, [place] initial encounter / Repository S01.81XA(ICD-10) 04/22/2018 Active Other injury of DULLE, GRACE Active [facility] unspecified body [facility] Other region, initial [place] encounter / Repository T14.8XXA(ICD-10) 04/17/2018 Active Dysphagia, GLORIA, Active [facility] unspecified / ELAINE C [facility] Other R13.10(ICD-10) [place] Repository 03/13/2018 Active Acute respiratory SOPHIA, Active [place] failure with hypoxia [facility] Other / J96.01(ICD-10) [place] Repository 03/13/2018 Active Nicotine dependence, SOPHIA, Active [place] unspecified, [facility] Other uncomplicated / [place] F17.200(ICD-10) Repository 03/13/2018 Active Moderate SOPHIA, Active [facility] protein-calorie [facility] Other malnutrition / [place] E44.0(ICD-10) Repository 03/13/2018 Active Non-ST elevation SOPHIA, Active [facility] (NSTEMI) myocardial [facility] Other infarction / [place] I21.4(ICD-10) Repository 02/08/2018 Active Ventricular SOPHIA, Active [place] tachycardia / [facility] Other I47.2(ICD-10) [place] Repository 02/07/2018 Active Atherosclerotic SOPHIA, Active [place] heart disease of [facility] Other [place] coronary [place] artery without Repository angina pectoris / I25.10(ICD-10) 02/07/2018 Active Acidosis / SOPHIA, Active [facility] E87.2(ICD-10) [facility] Other [place] Repository 02/07/2018 Active Disorientation, SOPHIA, Active [place] unspecified / [facility] Other R41.0(ICD-10) [place] Repository 02/07/2018 Active Chronic obstructive SOPHIA, Active [place] pulmonary disease [facility] Other with (acute) [place] exacerbation / Repository J44.1(ICD-10) 02/07/2018 Active Acute respiratory SOPHIA, Active [place] failure with [facility] Other hypercapnia / [place] J96.02(ICD-10) Repository 02/07/2018 Active Unspecified atrial SOPHIA, Active [place] fibrillation / [facility] Other I48.91(ICD-10) [place] Repository 02/07/2018 Active Pneumonia, SOPHIA, Active [place] unspecified organism [facility] Other / J18.9(ICD-10) [place] Repository 02/07/2018 Active Unspecified atrial SOPHIA, Active [place] flutter / [facility] Clinic Other I48.92(ICD-10) [place] Repository 02/07/2018 Active Other postprocedural SOPHIA, Active [facility] complications and [facility] Other disorders of [place] respiratory system, Repository not elsewhere classified / J95.89(ICD-10) 02/07/2018 Active Metabolic SOPHIA, Active [place] encephalopathy / [facility] Other G93.41(ICD-10) [place] Repository 02/07/2018 Active Other symptoms and SOPHIA, Active [facility] signs involving the [facility] Other musculoskeletal [place] system / Repository R29.898(ICD-10) 02/07/2018 Active Tracheostomy status SOPHIA, Active [facility] / Z93.0(ICD-10) [facility] Other [place] Repository 02/07/2018 Active Bacteremia / SOPHIA, Active [facility] R78.81(ICD-10) [facility] Other [place] Repository 02/07/2018 Active Other specified SOPHIA, Active [facility] bacterial agents as [facility] Other the cause of [place] diseases classified Repository elsewhere / B96.89(ICD-10) 02/07/2018 Active Hypotension, SOPHIA, Active [place] unspecified / [facility] Clinic Other I95.9(ICD-10) [place] Repository PROCEDURES PROCEDURES No Procedure Records FoundRESULTS RESULTS BNP,B-TYPE NATRIURETIC Collected: 12/19/2018 Status: F Source: [facility] 9:47 AM [facility] REPOSITORY TYPE CODE TESTS RESULT OUT OF RANGE REFERENCE UNITS LAB L503.6620 0-100 pg/mL High B-TYPE 126.8 [facility] PEP Performed By: #### L503.6620 #### [facility] [address] [place], [address] CARDIOLOGY VISIT Observed: 10/30/2018 Status: F Source: [facility] 8:41 AM [facility] REPOSITORY [facility] [address] [place] [address] OFFICE VISIT Date of Service: 10/23/18 MR#: [id number] Acct: [id number] Name: JEFFREY CULLEN Jr. Rep #: [id number] : 1950 Provider: Kiersten Chun Age/Sex: 68/M Location: [facility] Status: Signed HPI HPI Details: JEFFREY CULLEN, [...] Pt was seen over the weekend at [facility] for dizziness and leg weakness. He describes [...] noted it to be irregular. 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 Dizziness R42 Plan - KEON Solano Feel the patient's dizziness is likely [...] a 30-day event monitor. 2. Atherosclerosis of [place] coronary artery of [place] heart without angina pectoris I25.10 CABG x [...] vis,est,level 4 Diagnoses Dizziness R42 Atherosclerosis of [place] coronary artery of [place] heart without angina pectoris I25.10 Coronary Disease-Associated Artery/Lesion type: [place] artery Essential hypertension I10 Hypertension type: essential hypertension Pure hypercholesterolemia E78.00; E78.0 Hyperlipidemia type: pure hypercholesterolemia Cardiomyopathy, ischemic I25.5 Paroxysmal atrial fibrillation I48.0 Coding Level of Care Code Off vis,est,level 4 Diagnoses Dizziness R42 Atherosclerosis of [place] coronary artery of [place] heart without angina pectoris I25.10 Coronary Disease-Associated Artery/Lesion type: [place] artery Essential hypertension I10 Hypertension type: essential hypertension Pure hypercholesterolemia E78.00; E78.0 Hyperlipidemia type: pure hypercholesterolemia Cardiomyopathy, ischemic I25.5 Paroxysmal atrial fibrillation I48.0 10/26/18 1454 <Electronically signed by Kiersten HERBERT> Date Kiersten HERBERT 10/30/18 0841<Electronically signed by Daltno Torres MD> Lary Signature: Date (if applicable) Dalton Torres MD CC: Richie De La Torre DO ED NOTE Observed: 10/20/2018 Status: COMPLETED Source: [facility] 12:02 PM [facility] REPOSITORY HNO ID: [id number] Author: Marcia MoodyRn) ANGELINA Smith Service: Emergency Medicine Author Type: Registered Nurse Type: ED Notes Filed: 11/07/2018 6:12 PM Note Text: 11/07/18 1805 Chart accessed for audit ED PROV NOTE Observed: 10/20/2018 Status: COMPLETED Source: [place] 11:44 AM [facility] [place] REPOSITORY HNO ID: [id number] Author: Ashlee Palacios Service: Emergency Medicine Author [...] with SOB. Patient called EMS because his bilingual spanish inbound sales advised him to if any problem arose. He denies any chest pain. He was at rest when it started. Symptoms resolved upon arrival to ER. He was anxious. I did a cardiac workup given his past medical history. Given the results and the bilingual spanish inbound sales recommendation. He will be discharged home. Case was discussed with Taker Off Braker Machine Dr. Esteves. Image(s) were ordered and independently [...] ED NOTE Observed: 10/20/2018 Status: COMPLETED Source: [place] 11:43 AM [facility] REPOSITORY HNO ID: [id number] Author: Cailin Singleton RN Service: Emergency Medicine Author Type: Registered Nurse Type: ED Notes Filed: 10/20/2018 11:44 AM Note Text: called back ED NOTE Observed: 10/20/2018 Status: COMPLETED Source: [place] 11:38 AM [facility] REPOSITORY HNO ID: [id number] Author: Cailin Johnson) ANGELINA Singleton Service: Emergency Medicine Author Type: Registered Nurse Type: ED Notes Filed: 10/20/2018 11:44 AM Note Text: office called for phone consult.[phone] CHEST 1 VIEW Observed: 10/20/2018 Status: F Source: [facility] 10:57 AM HEALTH SYSTEM REPOSITORY Performed at [facility] APPROVED BY: Saul Garcia MD EXAMINATION: CHEST RADIOGRAPH (SINGLE VIEW AP OR PA) Clinical History: Chest pain or SOB, pleurisy or effusion suspected M: XC1_4 Comparison: 04/27/2018 RESULT: Lines, tubes, and devices: Sternotomy wires. Lungs and pleura: No consolidation. No lung mass. No pleural effusion. Cardiomediastinal silhouette: Normal cardiomediastinal silhouette. Other: IMPRESSION: No acute radiographic abnormality. ED NOTE Observed: 10/20/2018 Status: COMPLETED Source: [place] 10:40 AM [facility] REPOSITORY HNO ID: [id number] Author: Cailin Singleton RN Service: Emergency Medicine Author Type: Registered Nurse Type: ED Notes Filed: 10/20/2018 10:41 AM Note Text: Patient resting in bed speaking with girlfriend. Patient smiling and conversing without difficulty ED NOTE Observed: 10/20/2018 Status: COMPLETED Source: [place] 10:10 AM [facility] REPOSITORY HNO ID: [id number] Author: Cailin Singleton RN Service: Emergency Medicine Author Type: Registered Nurse Type: ED Notes Filed: 10/20/2018 10:11 AM Note Text: Girlfriend at bedside HEMOGRAM/DIFF Collected: 10/20/2018 Status: F Source: [facility] 9:50 AM HEALTH SYSTEM REPOSITORY TYPE CODE [...] 1.90 LAB LMONN(LOIN 0.20-1.00 thou/cmm C) Abs. [place] 0.64 LAB LEOSN(LOIN 0.00-0.41 thou/cmm C) Abs. Eosin 0.30 LAB LBASN(LOIN 0.00-0.08 thou/cmm C) Abs. Baso 0.06 Performed By: #### LCBCD #### [facility] [address] [place] [address] COMPREHENSIVE PANEL Collected: 10/20/2018 Status: F Source: [facility] 9:50 AM HEALTH SYSTEM REPOSITORY TYPE CODE TESTS RESULT OUT OF REFERENCE UNITS RANGE LAB ACCOUNTS RECEIVABLE REPRESENTATIVE(LOINC) 136-145 mEq/L Sodium Blood 136 LAB LK(LOINC) [...] 15 Ratio Performed By: #### LP14 #### [place] [address] MAGNESIUM BLOOD Collected: 10/20/2018 Status: F Source: [facility] 9:50 AM HEALTH SYSTEM REPOSITORY TYPE CODE TESTS RESULT OUT OF REFERENCE UNITS RANGE LAB LMAG(LOINC 1.8-2.4 mg/dL ) Magnesium Blood 2.0 Performed By: #### LMAG #### [place] [address] MDRD EGFR Collected: 10/20/2018 Status: F Source: [facility] 9:50 AM HEALTH SYSTEM REPOSITORY TYPE CODE TESTS RESULT OUT OF RANGE REFERENCE UNITS LAB LGFRF(LOINC >60mL/min/1.73m ) 2 eGFR >60 Result Comment: If the patient is , multiply the result by 1.210. Performed By: #### LGFR #### [place] [address] TROPONIN I Collected: 10/20/2018 Status: F Source: [facility] 9:50 AM HEALTH SYSTEM REPOSITORY TYPE CODE TESTS RESULT OUT OF REFERENCE UNITS RANGE LAB LTRP(LOINC) <=0.07 ng/mL Troponin I <0.03 Performed By: #### LTRP #### [facility] [address] [address] ED NOTE Observed: 10/20/2018 Status: COMPLETED Source: [place] 9:46 AM [facility] REPOSITORY HNO ID: [id number] Author: Shellie Barrios (Rn) ANGELINA Wills Service: (none) Author Type: Registered Nurse Type: ED Notes Filed: 10/20/2018 9:47 AM Note Text: [facility] C/o waking with SOB and dizziness at approximately 0800 Reports dizziness has resolved, continues to feel SOB Denies CP EKG (AK,AV,EU,FV,HL,RAIZA,MM,SP) Observed: Status: F Source: [place] 10/20/2018 9:46 AM CLINIC OTHER CAMPUS REPOSITORY NAME : JEFFREY CULLEN PID : [id number] : 1950 Gender : Male Race : ORD : [id number] Procedure Date : Oct 20 2018 09:46 Edit Date : Oct 22 2018 17:16 Diagnosis:SINUS BRADYCARDIA INCOMPLETE LEFT BUNDLE BRANCH BLOCK BORDERLINE ECG WHEN COMPARED WITH ECG OF 22-APR-2018 10:54, NONSPECIFIC T WAVE ABNORMALITY NO LONGER EVIDENT IN LATERAL LEADS QT HAS SHORTENED Confirmed by MD Mac, Omer Schneider ([id number]) on 10/22/2018 5:16:21 PM Ventricular Rate : 55 BPM Atrial Rate : 55 BPM P-R Interval : 162 ms QRS Duration : 106 ms Q-T Interval : 436 ms QTC Calculation(Bezet) : 417 ms P [place] : 32 degrees R [place] : -6 degrees T [place] : -4 degrees Test Reason : Chest Pain Location : 150 : [facility] Overread By : MD Watts Vinayak A. Editted By : MD Watts Vinayak A. Referred By : ASHLEE PALACIOS Acquired by : Babatunde Pryor [facility] EXT ARTERIAL Observed: 10/03/2018 Status: F Source: [facility] 6:08 PM [facility] REPOSITORY [facility] Cardiovascular Services [address] [place] [id number] 10/03/18 180 MR#: [id number] Acct: [id number] Name: JEFFREY CULLEN Rep #: [id number] : 1950 68 From: Jeffrey Conteh MD Attending Dr: Richie De La Torre DO Status: REG CLI Ordering Dr: Date: 10/03/18 [facility] Sex[facility] M C Admitted: Arterial Study [...] DO Date Dictated: 10/03/181806 Date Transcribed: 10/03/181806 Electromechanisms Design Drafter: SASHA Signed URIC ACID Collected: 10/03/2018 Status: F Source: [facility] 11:04 AM [facility] REPOSITORY TYPE CODE TESTS RESULT OUT OF RANGE REFERENCE UNITS LAB L501.1400 3.5-7.2 mg/dL Normal URIC 5.0 Result Comment: The drugs N-Acetylcysteine and Metamizole may falsely depress this assay. Performed By: #### L501.1400 #### [facility] [address] [place], [address] 12 LEAD ELECTROCARDIOGRAM Observed: 09/26/2018 Status: F Source: [place] 9:21 AM [facility] REPOSITORY [facility] Cardiovascular Services [address] [place] [address] 12 Lead EKG 09/22/18 0824 MR#: [id number] Acct: [id number] Name: ESTEFANIAJESSEJEFFREY Fara Contreras Rep #: [id number] : 1950 68 From: [place] Quiroz MD Attending Dr: Dalton Torres MD Status: REG RCR Ordering Dr: Dalton Torres MD Date: 09/22/18 Location: Sex: M C Admitted: Test Reason : CP IN REHAB Blood Pressure : / mmHG Vent. Rate : 055 BPM Atrial Rate : 055 BPM P-R Int : 156 ms QRS Dur : 102 ms QT Int : 448 ms P-R-T Axes : 050 -02 001 degrees QTc Int : 428 ms Sinus bradycardia Otherwise normal ECG Confirmed by RANCHO QUIROZ ([id number]), editor newspaper WILI BROWN ([id number]) on 09/26/2018 9:21:00 AM Referred By: Dalton Torres Confirmed By:RANCHO QUIROZ 09/26/18920 Date [place] MD CC: Dalton Torres MD; Richie De La Torre DO Signed INTERNAL MEDICINE Observed: 09/19/2018 Status: F Source: [place] OFFICE VISIT 2:07 PM [facility] [address] [place] [address] [place] [address] OFFICE VISIT Date of Service: 09/19/18 MR#: [id number] Acct: [id number] Name: JEFFREY CULLEN JrPatrice Rep #: [id number] : 1950 Provider: Richie De La Torre DO Age/Sex: 68/M Location: [facility] Status: Signed Intake Vital Signs09/19/18 Height 5 [...] mg PO QDAY #30 cap 08/31/18 [Rx] [facility] Medical History Acute subdural hematoma (Chronic 04/22/18) Paroxysmal atrial fibrillation (Chronic) Ischemic cardiomyopathy (Chronic) 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 Hyperlipemia E78.5 5. Hypertension [...] HISTORY AND Observed: 09/05/2018 Status: F Source: [place] PHYSICAL 11:00 AM [facility] REPOSITORY [facility] Cardiac Rehab [address] [place] [address] CR - History AND Physical MR#: [id number] Acct: [id number] Name: JEFFREY CULLEN Rep #: [id number] : 1950 68 From: [place] BISQUE WARE DIPPER, APPLIED STATISTICIAN, BS PCP: Richie De La Torre DO DOS: 09/05/18 CR - History AND Physical - General Arrival date:: 09/05/18 Arrival time:: 09:13 Date of Referral:: 08/31/18 Date of CR Evaluation:: 09/05/18 Referring Physician: DR. 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 Called his friend to take him to ER, friend told patient he was pure white and friend called squad. 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 [...] = Denies (Slash). 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 - [...] complete the program?: sister is great support 09/05/18 0936 <Electronically signed by Cole Ford BISQUE WARE DIPPER, APPLIED STATISTICIAN, BS> Date Cole Ford BISQUE WARE DIPPER, APPLIED STATISTICIAN, BS Outcome assessment reviewed. Exercise plan approved as [...] LIVER PROFILE Collected: 08/16/2018 Status: F Source: [place] 10:23 AM [facility] REPOSITORY TYPE CODE TESTS RESULT OUT [...] 0.15 Performed By: #### L500.3400, L500.4100 #### [facility] [address] [place], [place], [id number] LIPID PROFILE Collected: 08/16/2018 Status: F Source: [place] 10:23 AM [facility] REPOSITORY TYPE CODE TESTS RESULT OUT [...] 28 Performed By: #### L500.3400, L500.4100 #### [facility] [address] [place], [address] CARDIOLOGY VISIT Observed: 08/16/2018 Status: F Source: [place] REPORT 9:58 AM [facility] REPOSITORY [facility] [address] [place] [address] OFFICE VISIT Date of Service: 08/16/18 MR#: [id number] Acct: [id number] Name: JEFFREY CULLEN Rep #: [id number] : 1950 Provider: Dalton Torres MD Age/Sex: 68/M Location: [facility] Status: Signed HPI HPI Chief Complaint: Initial visit Details: JEFFREY CULLEN, is a 68 M who presents to the office today for initial visit. He is a 68-year-old gentleman who had presented in January with chest discomfort and had an abnormal troponin. He was transferred to [facility] where he underwent a cardiac catheterization. [...] natruretic peptide and was transferred back to [place]. He has since done well denying any [...] Intake Visit Reasons: PCP ref'd, CABG at [facility] in January Allergies No Known Allergies [...] PO BID cap 08/16/18 [History Confirmed 08/16/18] [facility] Medical History Acute subdural hematoma (Chronic 04/22/18) Paroxysmal atrial fibrillation (Chronic) Ischemic cardiomyopathy (Chronic) Atherosclerosis of coronary artery of [place] heart without angina pectoris (Chronic) Hyperlipemia (Chronic) [...] KUMAR-LAD, SVG-RCA and SVG-Distal Cx 02/09/18 @ [facility] Dr Marin Plan He is status post [...] by PCP/other physicians) Follow Up 4 Months (caydenr) Coding Level of Care Code Off vis,new,level [...] DO PROGRESS Observed: 08/04/2018 Status: COMPLETED Source: [place] 9:34 AM [facility] REPOSITORY [facility] ID: [id number] Author: Reji (Pt) Jose Alfredo Service: (none) [...] of Care: created on 06/09/18 through 08/08/18 [place] in home exercise program. MET Patient will [...] an (*). Patient education as noted. Billing: [place]: Therapeutic Exercise (43948): 1:1 time: 30 minutes (2 units: 23-37 mins) Neuromuscular Re-education (73889): 1:1 time:25 minutes (2 units: 23-37 mins) Total time: 55 minutes Reji Veliz PT CNTHERAPY Observed: 08/04/2018 Status: COMPLETED Source: [place] 7:45 AM [facility] REPOSITORY OT/PT/Speech Visit (LDPT) JEFFREY CULLEN JR. ([id number]) 1950 M T Date Time Provider Department 08/04/18 7:45 AM REJI VELIZ (PT) LDPT Date Time Provider Department Center 08/04/2018 7:45 AM [id number] (P*LDPT [facility] [address] Reason for Visit: Physical Therapy [503] PT Discharge [752] Reason For Visit History Recorded Primary Visit Diagnosis:Weakness [R53.1] Other Visit Diagnosis:SDH (subdural hematoma) ([facility]) [S06.5X9A] Allergies As of Date: 08/04/2018 Noted Allergy Reaction BEE STING 04/22/2018 16 - Unknown Date Reviewed: 07/04/2018 Reviewed by: Stephani (Ot) CARMINE Shah - Fully Assessed Prescriptions as of 08/04/2018 [...] by mouth once d* Progress Notes: Reji Jose Alfredo, PT 08/04/2018 9:37 AM Signed Episode Visit [...] of Care: created on 06/09/18 through 08/08/18 [place] in home exercise program. MET Patient will [...] an (*). Patient education as noted. Billing: [place]: Therapeutic Exercise (62376): 1:1 time: 30 minutes (2 units: 23-37 mins) Neuromuscular Re-education (45022): 1:1 time:25 minutes (2 units: 23-37 mins) Total time: 55 minutes Reji Veliz PT Letter Text PROGRESS Observed: 08/01/2018 Status: COMPLETED Source: [place] 9:56 AM [facility] REPOSITORY [facility] ID: [id number] Author: Beata Alfaro PT ASSIST Service: (none) Author Type: Toy Assembly Supervisor Type: Progress Notes Filed: 08/01/2018 9:59 AM [...] back this weekend driving to and from [place] and also noted le weakness and tightness [...] Skilled Intervention: Postural cues with gait Billing: [place]: Therapeutic Exercise (71665): 1:1 time: 45 minutes (3 units: 38-52 mins) Gait Training (86500): 1:1 time: 6 minutes (no charge) Total time: 51 minutes Beata Alfaro PTA PROGRESS Observed: 08/01/2018 Status: COMPLETED Source: [place] 9:55 AM [facility] REPOSITORY [facility] ID: [id number] Author: HEATHER Diallo Ot/Fara Service: (none) Author Type: Occupational Therapist Type: [...] assessment of patient's response to intervention. Billing: [place]: Therapeutic Exercise (83360): 1:1 time: 6 minutes (no charge) Manual therapy (49825): 1:1 time: 49 minutes (4 units: 53- 67 mins) absorbed therex minutes Total time: 55 minutes HEATHER Diallo/Fara CNTHERAPY Observed: 08/01/2018 Status: COMPLETED Source: [place] 9:00 AM [facility] REPOSITORY OT/PT/Speech Visit (LTOT) JEFFREY CULLEN JR. ([id number]) 1950 M [facility] Date Time Provider Department 08/01/18 9:00 AM NADEEM STEELE (OT) LTOT Date Time Provider Department Center 08/01/2018 9:00 AM [id number], TIMOTHY *LTOT [facility] [address] Reason for [...] Date Reviewed: 07/04/2018 Reviewed by: Stephani (Ot) CARMINE Shah - Fully Assessed Prescriptions as of [...] tablet by mouth once d* Progress Notes: XU Diallo, XU 08/04/2018 3:14 PM Addendum Episode Visit Count: [...] assessment of patient's response to intervention. Billing: [place]: Therapeutic Exercise (02679): 1:1 time: 6 minutes (no charge) Manual therapy (93520): 1:1 time: 49 minutes (4 units: 53- 67 mins) absorbed therex minutes Total time: 55 minutes XU Diallo Previous Version CNTHERAPY Observed: 08/01/2018 Status: COMPLETED Source: [place] 7:45 AM [facility] REPOSITORY OT/PT/Speech Visit (LDPT) JEFFREY CULLEN JR. ([id number]) 1950 M CHT Date Time Provider Department 08/01/18 7:45 AM BEATA ALFARO (TICKET TAKER) LDPT Date Time Provider Department Center 08/01/2018 7:45 AM [id number], PATRICK *LDPT [facility] [address] Reason for Visit: Physical Therapy [503] Primary Visit Diagnosis:Weakness [R53.1] Other Visit Diagnosis:SDH (subdural hematoma) ([facility]) [S06.5X9A] Allergies As of Date: 08/01/2018 Noted [...] Progress Notes: Beata Alfaro PTA, PT ASSIST 08/01/2018 9:59 AM Signed Episode [...] back this weekend driving to and from [place] and also noted le weakness and tightness [...] Skilled Intervention: Postural cues with gait Johning: Roya: Therapeutic Exercise (27561): 1:1 time: 45 minutes (3 units: 38-52 mins) Gait Training (31496): 1:1 time: 6 minutes (no charge) Total time: 51 minutes Beata Alfaro PTA PROGRESS Observed: 07/28/2018 Status: COMPLETED Source: [place] 10:00 AM [facility] REPOSITORY [facility] ID: [id number] Author: Reji (Pt) Jose Alfredo Service: (none) [...] noted. Therapeutic Activity: 1: *Repetitve Pull downs: blue TB, 3x30 2: *Lateral Resistance Chest Press: blue TB, 3x15B Skilled Intervention: Educated on proper/safe technique for activities performed today. Activity progression based on professional judgment. Billing: [place]a: Therapeutic Exercise (63374): 1:1 time: 30 minutes (2 units: 23-37 mins) Therapeutic Activity (68459): 1:1 time: 10 minutes (1 unit: 8-22 mins) Total time: 45 minutes Reji Veliz PT CNTHERAPY Observed: 07/28/2018 Status: COMPLETED Source: [place] 7:45 AM [facility] REPOSITORY OT/PT/Speech Visit (LDPT) JEFFREY CULLEN JR. ([id number]) 1950 M [facility] Date Time Provider Department 07/28/18 7:45 AM REJI VELIZ (PT) LDPT Date Time Provider Department Center 07/28/2018 7:45 AM [id number], STEPHEN (P*LDPT [facility] [address] Reason for Visit: Physical Therapy [503] Primary Visit Diagnosis:Weakness [R53.1] Other Visit Diagnosis:SDH (subdural hematoma) ([facility]) [S06.5X9A] Allergies As of Date: 07/28/2018 Noted Allergy Reaction BEE STING 04/22/2018 16 - Unknown Date Reviewed: 07/04/2018 Reviewed by: Stephani (Ot) CARMINE Shah - Fully Assessed Prescriptions as of 07/28/2018 [...] Will Oversee The Plan Of Care: Reji eVliz Start of Care Date: 06/09/18 Onset Date: [...] noted. Therapeutic Activity: 1: *Repetitve Pull downs: blue TB, 3x30 2: *Lateral Resistance Chest Press: blue TB, 3x15B Skilled Intervention: Educated on proper/safe technique for activities performed today. Activity progression based on professional judgment. Billing: Roya: Therapeutic Exercise (68331): 1:1 time: 30 minutes (2 units: 23-37 mins) Therapeutic Activity (25172): 1:1 time: 10 minutes (1 unit: 8-22 mins) Total time: 45 minutes Reji Veliz PT INTERNAL MEDICINE Observed: 07/26/2018 Status: F Source: [place] OFFICE VISIT 11:36 AM [facility] [address] [place] [address] [place] [address] OFFICE VISIT Date of Service: 07/26/18 MR#: [id number] Acct: [id number] Name: JEFFREY CULLEN Rep #: [id number] : 1950 Provider: Richie De La Torre DO Age/Sex: 68/M Location: [facility] Status: Signed Intake Vital Signs07/26/18 Height 5 [...] going to occupational and physical therapy at [facility] I have no record of this. Certainly [...] status. He was then sent to a assisted where he fell had a subarachnoid hemorrhage and was also obtunded for long period of time. That the greatest problem I see with this patient is that he has not seen a bilingual spanish inbound sales on follow- up and he does not want to see a bilingual spanish inbound sales outside of [place]. So I made a referral to the [facility] anticipating that they will start him on cardiac rehab which is what he needs as he has been going to [facility] but apparently only getting occupational rehab. I [...] CC: PROGRESS Observed: 07/25/2018 Status: COMPLETED Source: [place] 9:32 AM [facility] [place] REPOSITORY [facility] ID: [id number] Author: Nadeem (OtXU Abdul Service: (none) Author Type: Occupational Therapist Type: [...] REPORT PLAN OF CARE UPDATE: Assessment: Jeffrey Fara Cullen Jr. exhibits difficulty with mild stiffness [...] Assessed 07/25/18 Patient will complete HEP at [place] level. - progressing Patient will increase active ROM of bilateral hands and shoulders to WFL to allow patient to improved performance of ADLs. - progressing Patient will increase strength of BUE By at least 1/3 muscle grade to allow for improved ADL function - ongoing Patient will increase bilateral assembler mechanical ordnance and pinches by 20# and 5# to [...] to be seen for Therapeutic exercise;Therapeutic activities;Manual therapy;Self-penitentiary management;Modalities;Patient/Family/Caregiver EducationUltrasound;E-Stim Attended Prognosis: Fair Fair due to: multiple co- morbidities;chronic nature of impairments PLAN FOR NEXT VISIT: addition of shoulder strengthening exercises within pain reduced range of motion SUBJECTIVE: OT recertification I raced this weekend but had difficulty hold the [employer] Pain Score: 6/10 Pain Location: Shoulder - Left;Shoulder - Right Description: Sharp Frequency: Intermittent (INcreases with movement) Post Treatment Pain Score: 5/10 Pain Location: Shoulder - Left;Shoulder - Right Post Treatment Pain Description: Aching OBJECTIVE MEASURES WITH LEVEL OF FUNCTION: Hand Evaluation R Tabulating Supervisor Position 2 (lbs): 32 lbs L Tabulating Supervisor Position 2 (lbs): 26 lbs R Lateral [...] Activity progression based on professional judgment. Billing: [place]: Therapeutic Exercise (73351): 1:1 time: 5 minutes (no charge) Therapeutic Functional Activity (28378): 1:1 time:40 minutes (3 units: 38-52 mins) Total time: 45 minutes HEATHER Diallo/Fara CNTHERAPY Observed: 07/25/2018 Status: COMPLETED Source: [place] 8:15 AM [facility] REPOSITORY OT/PT/Speech Visit (LTOT) JEFFREY CULLEN JR. ([id number]) 1950 M [facility] Date Time Provider Department 07/25/18 8:15 AM NADEEM STEELE (CARMINE) LTOT Date Time Provider Department Center 07/25/2018 8:15 AM [id number], TIMOTHY *LTOT [facility] [address] Reason for Visit: OT Progress Note [1595] Primary Visit Diagnosis:Decreased range of motion of left shoulder [M25.612] Other Visit Diagnoses:Stiffness of right hand joint [M25.641] Stiffness of left hand joint [M25.642] Decreased range of motion of right shoulder [M25.611] Decreased activities of daily living (ADL) [R68.89] Allergies As of Date: 07/25/2018 Noted Allergy Reaction BEE STING 04/22/2018 16 - Unknown Date Reviewed: 07/04/2018 Reviewed by: Stephani MoodyOt) CARMINE Shah - Fully Assessed Prescriptions as of [...] PLAN OF CARE UPDATE: Assessment: Jeffrey Cullen Patrice exhibits difficulty with mild stiffness in fingers, [...] Assessed 07/25/18 Patient will complete HEP at [place] level. - progressing Patient will increase active ROM of bilateral hands and shoulders to WFL to allow patient to improved performance of ADLs. - progressing Patient will increase strength of BUE By at least 1/3 muscle grade to allow for improved ADL function - ongoing Patient will increase bilateral assembler mechanical ordnance and pinches by 20# and 5# to [...] to be seen for Therapeutic exercise;Therapeutic activities;Manual therapy;Self-penitentiary management;Modalities;Patient/Family/Caregiver EducationUltrasound;E-Stim Attended Prognosis: Fair Fair due to: multiple co- morbidities;chronic nature of impairments PLAN FOR NEXT VISIT: addition of shoulder strengthening exercises within pain reduced range of motion SUBJECTIVE: OT recertification I raced this weekend but had difficulty hold the [place] Pain Score: 6/10 Pain Location: Shoulder - Left;Shoulder - Right Description: Sharp Frequency: Intermittent (INcreases with movement) Post Treatment Pain Score: 5/10 Pain Location: Shoulder - Left;Shoulder - Right Post Treatment Pain Description: Aching OBJECTIVE MEASURES WITH LEVEL OF FUNCTION: Hand Evaluation R Tabulating Supervisor Position 2 (lbs): 32 lbs L Tabulating Supervisor Position 2 (lbs): 26 lbs R Lateral [...] Activity progression based on professional judgment. Billing: [place]: Therapeutic Exercise (94849): 1:1 time: 5 minutes (no charge) Therapeutic Functional Activity (98638): 1:1 time:40 minutes (3 units: 38-52 mins) Total time: 45 minutes XU Diallo Letter Text PROGRESS Observed: 07/25/2018 Status: COMPLETED Source: [place] 8:07 AM [facility] REPOSITORY [facility] ID: [id number] Author: Beata (Jostin) MANUEL Alfaro ASSIST Service: (none) Author Type: Toy Assembly Supervisor Type: Progress Notes Filed: 07/25/2018 8:13 AM [...] FUNCTION: Pt took 10 min to ambulate [facility] TREATMENT: Therapeutic Exercise: 1: nu step seat11 [...] interventions. Gait Trainin: walked outside perimeter of [facility] with 3 x standing to neutral posture 10 x each 10 min of gait cues for stability into left ankle Skilled Intervention: Postural cues and cues to decrease left foot toe out. Billing: [place]: Therapeutic Exercise (57219): 1:1 time: 45 minutes (3 units: 38-52 mins) Gait Training (99385): 1:1 time: 10 minutes (1 unit: 8-22 mins) Total time: 55 minutes Beata Alfaro PTA CNTHERAPY Observed: 07/25/2018 Status: COMPLETED Source: [place] 7:00 AM [facility] REPOSITORY OT/PT/Speech Visit (LDPT) JEFFREY CULLEN JR. ([id number]) 1950 M CHT Date Time Provider Department 07/25/18 7:00 AM BEATA ALFARO (JOSTIN) LDPT Date Time Provider Department Center 07/25/2018 7:00 AM [id number], PATRICK *LDPT [facility] [address] Reason for Visit: Physical Therapy [503] Primary Visit Diagnosis:Weakness [R53.1] Other Visit Diagnosis:SDH (subdural hematoma) ([facility]) [S06.5X9A] Allergies As of Date: 07/25/2018 Noted Allergy Reaction BEE STING 04/22/2018 16 - Unknown Date Reviewed: 07/04/2018 Reviewed by: Stephani (Ot) CARMINE Shah - Fully Assessed Prescriptions as of [...] Date: 02/06/18 Plan of Care Certification Date: 07/13/18 Patient Identified by Name and Date of : Yes REHABILITATION AND SPORTS THERAPY PHYSICAL THERAPY TREATMENT NOTE ASSESSMENT: Jeffrey Cullen demonstrated difficulty with maintaining neutral lumbar posture [...] FUNCTION: Pt took 10 min to ambulate [facility] TREATMENT: Therapeutic Exercise: 1: nu step seat11 [...] of appropriate interventions. Gait Trainin: walked outside [facility] with 3 x standing to neutral posture 10 x each 10 min of gait cues for stability into left ankle Skilled Intervention: Postural cues and cues to decrease left foot toe out. Johning: Roya: Therapeutic Exercise (47319): 1:1 time: 45 minutes (3 units: 38-52 mins) Gait Training (17840): 1:1 time: 10 minutes (1 unit: 8-22 mins) Total time: 55 minutes Beata Alfaro PTA PROGRESS Observed: 07/21/2018 Status: COMPLETED Source: [place] 11:56 AM [facility] REPOSITORY [facility] ID: [id number] Author: Rufina (Pt) MANUEL Edward Service: (none) [...] THERAPY PHYSICAL THERAPY TREATMENT NOTE ASSESSMENT: Jeffrey Chaudhari Harris Contreras demonstrated difficulty with pain and stiffness at [...] belt utilized during session for safety. Billing: [place]: Therapeutic Exercise (91492): 1:1 time: 30 minutes (2 unit: 23-37 mins) Gait Training (69418): 1:1 time: 15 minutes (1 unit: 8-22 mins) Total time: 45 minutes Rufina Edward PT PROGRESS Observed: 07/21/2018 Status: COMPLETED Source: [place] 9:11 AM [facility] REPOSITORY [facility] ID: [id number] Author: Nadeem (Carmine) XU Steele Service: (none) Author Type: Occupational [...] Jeffrey Fara Cullen Jr. demonstrated difficulty with significant pain [...] assessment of patient's response to intervention. Billing: [place]: Manual therapy (24648): 1:1 time: 50 minutes (3 units: 38-52 mins) Total time: 50 minutes XU Diallo CNTHERAPY Observed: 07/21/2018 Status: COMPLETED Source: [place] 9:00 AM [facility] REPOSITORY OT/PT/Speech Visit (LDPT) HARRISJEFFREY Fara CONTRERAS ([id number]) 1950 M CHT Date Time Provider Department 07/21/18 9:00 AM RUFINA EDWARD (PT) LDPT Date Time Provider Department Center 07/21/2018 9:00 AM [id number], CHRISTI *LDPT [facility] [address] Reason for Visit: Physical Therapy [503] Primary Visit Diagnosis:Weakness [R53.1] Other Visit Diagnosis:SDH (subdural hematoma) ([facility]) [S06.5X9A] Allergies As of Date: 07/21/2018 Noted Allergy Reaction BEE STING 04/22/2018 16 - Unknown Date Reviewed: 07/04/2018 Reviewed by: Stephani (Ot) CARMINE Shah - Fully Assessed Prescriptions as of [...] belt utilized during session for safety. Billing: [place]: Therapeutic Exercise (52750): 1:1 time: 30 minutes (2 unit: 23-37 mins) Gait Training (46983): 1:1 time: 15 minutes (1 unit: 8-22 mins) Total time: 45 minutes Rufina Edward PT CNTHERAPY Observed: 07/21/2018 Status: COMPLETED Source: [place] 8:00 AM [facility] REPOSITORY OT/PT/Speech Visit (LTOT) JEFFREY CULLEN JR. ([id number]) 1950 [facility] Date Time Provider Department 07/21/18 8:00 AM NADEEM STEELE (OT) LTOT Date Time Provider Department Center 07/21/2018 8:00 AM [id number], TIMOTHY *LTOT [facility] [address] Reason for [...] Date Reviewed: 07/04/2018 Reviewed by: Stephani (Ot) CARMINE Shah - Fully Assessed Prescriptions as of [...] tablet by mouth once d* Progress Notes: XU Diallo, HEATHER/Fara 07/21/2018 9:18 AM Signed Episode Visit Count: 11 Therapist That Will Oversee The Plan Of Care: Vinnie Steele Start of Care Date: 06/09/18 Onset Date: 02/07/18 Plan of Care Certification Date: 06/09/18 Patient Identified by Name and Date of : Yes REHABILITATION AND SPORTS THERAPY OCCUPATIONAL THERAPY TREATMENT NOTE ASSESSMENT: Jeffrey Fara Cullen Jr. demonstrated difficulty with significant pain [...] assessment of patient's response to intervention. Billing: Roya: Manual therapy (60672): 1:1 time: 50 minutes (3 units: 38-52 mins) Total time: 50 minutes XU Diallo PROGRESS Observed: 07/14/2018 Status: COMPLETED Source: [place] 1:29 PM [facility] REPOSITORY [facility] ID: [id number] Author: Nadeem (Ot) HEATHER Steele/Fara Service: (none) [...] OCCUPATIONAL THERAPY TREATMENT NOTE ASSESSMENT: Jeffrey Cullen JrPatrice demonstrated difficulty with bilateral shoulder pain, bilateral [...] assessment of patient's response to intervention. Billing: Roya: Manual therapy (21776): 1:1 time: 45 minutes (3 units: 38-52 mins) Total time: 45 minutes HEATHER Diallo/Fara PROGRESS Observed: 07/14/2018 Status: COMPLETED Source: [place] 11:56 AM [facility] REPOSITORY [facility] ID: [id number] Author: Rufina (Pt) MANUEL Edward Service: (none) Author Type: Physical Therapist Type: Progress Notes Filed: 07/14/2018 12:02 PM Note Text: Episode Visit Count: 9 Therapist That Will Oversee The Plan Of Care: Reji Veliz Start of Care Date: 06/09/18 Onset Date: 03/12/18 Plan of Care Certification Date: 06/09/18 Patient [...] to prevent falls and insure safety. Billing: Roya: Therapeutic Exercise (37652): 1:1 time: 20 minutes (1 unit: 8-22 mins) Therapeutic Activity (68974): 1:1 time: 5 minutes (no charge) Neuromuscular Re-education (73348): 1:1 time:20 minutes (2 units: 23-37 mins) Gait Training (88558): 1:1 time: 10 minutes (1 unit: 8-22 mins) Total time: 55 minutes Rufina Edward PT CNTHERAPY Observed: 07/14/2018 Status: COMPLETED Source: [place] 10:30 AM [facility] REPOSITORY OT/PT/Speech Visit (LDPT) JEFFREY CULLEN JR. ([id number]) 1950 M T Date Time Provider Department 07/14/18 10:30 AM RUFINA EDWARD (PT) LDPT Date Time Provider Department Center 07/14/2018 10:30 AM [id number], CHRISTI *LDPT [facility] [address] Reason for Visit: Physical Therapy [503] Primary Visit Diagnosis:Weakness [R53.1] Other Visit Diagnosis:SDH (subdural hematoma) ([facility]) [S06.5X9A] Allergies As of Date: 07/14/2018 Noted Allergy Reaction BEE STING 04/22/2018 16 - Unknown Date Reviewed: 07/04/2018 Reviewed by: Stephani (Ot) CARMINE Shah - Fully Assessed Prescriptions as of [...] about 12 minutes 2x per day. USing RetailML[employer] chair with resistance for UE and LE, [...] training to prevent falls and insure safety. Johning: Roya: Therapeutic Exercise (44795): 1:1 time: 20 minutes (1 unit: 8-22 mins) Therapeutic Activity (10946): 1:1 time: 5 minutes (no charge) Neuromuscular Re-education (87191): 1:1 time:20 minutes (2 units: 23-37 mins) Gait Training (88959): 1:1 time: 10 minutes (1 unit: 8-22 mins) Total time: 55 minutes Rufina Edward PT CNTHERAPY Observed: 07/14/2018 Status: COMPLETED Source: [place] 9:30 AM [facility] REPOSITORY OT/PT/Speech Visit (LTOT) JEFFREY CULLEN JR. ([id number]) 1950 M [facility] Date Time Provider Department 07/14/18 9:30 AM NADEEM STEELEOT) JUD Date Time Provider Department [place] 07/14/2018 9:30 AM [id number], TIMOTHY *LTOT [place] [address] Reason for [...] Date Reviewed: 07/04/2018 Reviewed by: Stephani MoodyOt) CARMINE Shah - Fully Assessed Prescriptions as of [...] assessment of patient's response to intervention. Billing: Roya: Manual therapy (55992): 1:1 time: 45 minutes (3 units: 38-52 mins) Total time: 45 minutes XU Diallo PROGRESS Observed: 07/11/2018 Status: COMPLETED Source: [place] 9:33 AM [facility] REPOSITORY HNO ID: [id number] Author: Nadeem (XU Doyle Service: (none) Author Type: Occupational Therapist Type: [...] Assessed 07/11/18 Patient will complete HEP at [place] level. - progressing Patient will increase active ROM of bilateral hands and shoulders to WFL to allow patient to improved performance of ADLs. - progressing Patient will increase strength of BUE By at least 1/3 muscle grade to allow for improved ADL function - ongoing Patient will increase bilateral assembler mechanical ordnance and pinches by 20# and 5# to [...] be seen for Therapeutic exercise;Therapeutic activities;Manual therapy;Neuromuscular re-education;Self-penitentiary management;ModalitiesUltrasound;E-Stim Unattended PLAN FOR NEXT VISIT: review new home exercises SUBJECTIVE: OT monthly My shoulders are killing me. Pain Score: 8/10 Pain Location: Shoulder - Left;Shoulder - Right Description: Aching Frequency: Continuous OBJECTIVE MEASURES WITH LEVEL OF FUNCTION: Hand Evaluation R Tabulating Supervisor Position 2 (lbs): 32 lbs L Tabulating Supervisor Position 2 (lbs): 24 lbs R Lateral [...] Laundry: Total Assistance TREATMENT: Therapeutic Exercise: 1: *assembler mechanical ordnance with red tputty 2: *tip pinch with [...] Activity progression based on professional judgment. Johning: Roya: Therapeutic Exercise (16100): 1:1 time: 25 minutes (2 units: 23-37 mins) Therapeutic Functional Activity (15587): 1:1 time:20 minutes (1 unit: 8-22 mins) Total time: 45 minutes HEATHER Diallo/Fara CNTHERAPY Observed: 07/11/2018 Status: COMPLETED Source: [place] 8:15 AM [facility] REPOSITORY OT/PT/Speech Visit (LTOT) JEFFREY CULLEN JR. ([id number]) 1950 M [facility] Date Time Provider Department 07/11/18 8:15 AM NADEEM STEELE (OT) JUD Date Time Provider Department [place] 07/11/2018 8:15 AM [id number], TIMOTHY *LTOT [place] [address] Reason for Visit: OT Progress Note [1595] Primary Visit Diagnosis:Stiffness of left hand joint [M25.642] Other Visit Diagnoses:Stiffness of right hand joint [M25.641] Decreased range of motion of right shoulder [M25.611] Decreased range of motion of left shoulder [M25.612] Decreased activities of daily living (ADL) [R68.89] Allergies As of Date: 07/11/2018 Noted Allergy Reaction BEE STING 04/22/2018 16 - Unknown Date Reviewed: 07/04/2018 Reviewed by: Stephani MoodyOt) CARMINE Shah - Fully Assessed Prescriptions as of [...] Assessed 07/11/18 Patient will complete HEP at [place] level. - progressing Patient will increase active ROM of bilateral hands and shoulders to WFL to allow patient to improved performance of ADLs. - progressing Patient will increase strength of BUE By at least 1/3 muscle grade to allow for improved ADL function - ongoing Patient will increase bilateral assembler mechanical ordnance and pinches by 20# and 5# to [...] be seen for Therapeutic exercise;Therapeutic activities;Manual therapy;Neuromuscular re-education;Self-penitentiary management;ModalitiesUltrasound;E-Stim Unattended PLAN FOR NEXT VISIT: review new home exercises SUBJECTIVE: OT monthly My shoulders are killing me. Pain Score: 8/10 Pain Location: Shoulder - Left;Shoulder - Right Description: Aching Frequency: Continuous OBJECTIVE MEASURES WITH LEVEL OF FUNCTION: Hand Evaluation R Tabulating Supervisor Position 2 (lbs): 32 lbs L Tabulating Supervisor Position 2 (lbs): 24 lbs R Lateral [...] Laundry: Total Assistance TREATMENT: Therapeutic Exercise: 1: *assembler mechanical ordnance with red tputty 2: *tip pinch with [...] Intervention: Activity progression based on professional judgment. Mia: Roya: Therapeutic Exercise (91555): 1:1 time: 25 minutes (2 units: 23-37 mins) Therapeutic Functional Activity (70495): 1:1 time:20 minutes (1 unit: 8-22 mins) Total time: 45 minutes XU Diallo PROGRESS Observed: 07/11/2018 Status: COMPLETED Source: [place] 8:09 AM [facility] REPOSITORY HNO ID: [id number] Author: Beata Alfaro PT ASSIST Service: (none) Author Type: Toy Assembly Supervisor Type: Progress Notes Filed: 07/11/2018 8:13 AM [...] steep grade is still difficult Pain Score: 810 Pain Location: Shoulder - Left;Shoulder - Right [...] provided in selection of appropriate interventions. Billing: Roya: Therapeutic Exercise (08579): 1:1 time: 50 minutes (3 units: 38-52 mins) Total time: 50 minutes Beata Alfaro PTA CNTHERAPY Observed: 07/11/2018 Status: COMPLETED Source: [place] 7:00 AM [facility] REPOSITORY OT/PT/Speech Visit (LDPT) JEFFREY CULLEN JR. ([id number]) 1950 M [facility] Date Time Provider Department 07/11/18 7:00 AM BEATA ALFARO (TICKET TAKER) LDPT Date Time Provider Department Center 07/11/2018 7:00 AM [id number], PATRICK *LDPT [address] Reason for Visit: Physical Therapy [503] Primary Visit Diagnosis:Weakness [R53.1] Other Visit Diagnosis:SDH (subdural hematoma) ([facility]) [S06.5X9A] Allergies As of Date: 07/11/2018 Noted Allergy Reaction BEE STING 04/22/2018 16 - Unknown Date Reviewed: 07/04/2018 Reviewed by: Stephani (Ot) CARMINE Shah - Fully Assessed Prescriptions as of [...] provided in selection of appropriate interventions. Billing: Roya: Therapeutic Exercise (17342): 1:1 time: 50 minutes (3 units: 38-52 mins) Total time: 50 minutes Beata Alfaro PTA PROGRESS Observed: 07/07/2018 Status: COMPLETED Source: [place] 1:01 PM [facility] REPOSITORY HNO ID: [id number] Author: Rufina (Pt) MANUEL Edward Service: (none) [...] of Care: created on 06/09/18 through 08/08/18 [place] in home exercise program. ONGOING Patient will [...] to be seen for Therapeutic exercise;Neuromuscular re-education;Therapeutic activities;Self-penitentiary management;Gait Training;Patient/Family/Caregiver Education;General Conditioning PLAN FOR NEXT [...] caution and monitor vitals as necessary. Billing: Roya: Therapeutic Exercise (66185): 1:1 time: 35 minutes (2 units: 23-37 mins) Gait Training (73700): 1:1 time: 10 minutes (1 unit: 8-22 mins) Total time: 45 minutes Rufina Edward PT PROGRESS Observed: 07/07/2018 Status: COMPLETED Source: [place] 10:45 AM [facility] REPOSITORY HNO ID: [id number] Author: Nadeem (Carmine) XU Steele Service: (none) Author Type: Occupational [...] THERAPY OCCUPATIONAL THERAPY TREATMENT NOTE ASSESSMENT: Jeffrey Chaudhari Harris Contreras demonstrated difficulty with bilateral finger range of [...] assessment of patient's response to intervention. Billing: Roya: Manual therapy (75789): 1:1 time: 45 minutes (3 units: 38-52 mins) Total time: 45 minutes XU Diallo CNTHERAPY Observed: 07/07/2018 Status: COMPLETED Source: [place] 10:30 AM [facility] REPOSITORY OT/PT/Speech Visit (LDPT) JEFFREY CULLEN JR. ([id number]) 1950 M [facility] Date Time Provider Department 07/07/18 10:30 AM RUFINA EDWARD (PT) LDPT Date Time Provider Department Center 07/07/2018 10:30 AM [id number], CHRISTI *LDPT [address] Reason for Visit: PT Progress Note [1596] Primary Visit Diagnosis:Weakness [R53.1] Other Visit Diagnosis:SDH (subdural hematoma) ([facility]) [S06.5X9A] Allergies As of Date: 07/07/2018 Noted Allergy Reaction BEE STING 04/22/2018 16 - Unknown Date Reviewed: 07/04/2018 Reviewed by: Stephani (Ot) CARMNIE Shah - Fully Assessed Prescriptions as of [...] of Care: created on 06/09/18 through 08/08/18 [place] in home exercise program. ONGOING Patient will [...] Status: Mobility: Walking and Moving Around: G8979 20-39% impaired Progress Report: 07/07/2018 Current Status: Mobility: Walking and Moving Around: G8978 CJ 20-39% impaired Goal Status: Mobility: Walking and Moving Around: G8979 CI 1-19% impaired Planned Interventions, Frequency, and Duration: 2x/week, 4 weeks Total Number of Visits Planned: 16 Patient to be seen for Therapeutic exercise;Neuromuscular re-education;Therapeutic activities;Self-penitentiary management;Gait Training;Patient/Family/Caregiver Education;General Conditioning PLAN FOR NEXT [...] caution and monitor vitals as necessary. Billing: Roya: Therapeutic Exercise (14139): 1:1 time: 35 minutes (2 units: 23-37 mins) Gait Training (53571): 1:1 time: 10 minutes (1 unit: 8-22 mins) Total time: 45 minutes Rufina Edward PT CNTHERAPY Observed: 07/07/2018 Status: COMPLETED Source: [place] 9:30 AM [facility] REPOSITORY OT/PT/Speech Visit (LTOT) JEFFREY CULLEN JR. ([id number]) 1950 M [facility] Date Time Provider Department 07/07/18 9:30 AM NADEEM STEELE (OT) LTOT Date Time Provider Department Center 07/07/2018 9:30 AM [id number], TIMOTHY *LTOT [address] Reason for [...] Date Reviewed: 07/04/2018 Reviewed by: Stephani MoodyOt) CARMINE Shah - Fully Assessed Prescriptions as of [...] d* Progress Notes: Nadeem Steele, OTR/L, OTR/L 07/07/2018 10:49 AM Signed Episode Visit Count: [...] assessment of patient's response to intervention. Billing: Roya: Manual therapy (97245): 1:1 time: 45 minutes (3 units: 38-52 mins) Total time: 45 minutes XU Diallo PROGRESS Observed: 07/04/2018 Status: COMPLETED Source: [place] 9:36 AM [facility] REPOSITORY O ID: [id number] Author: Stephani (Ot) CARMINE Shah Service: (none) Author Type: Occupational Therapist [...] WITH LEVEL OF FUNCTION: Hand Evaluation R Tabulating Supervisor Position 2 (lbs): 28 lbs (pt reports he is having a bad day. Tired) L Tabulating Supervisor Position 2 (lbs): 20 lbs Current Activities Of Daily Living Bathing Upper Body: (used long bath sponge curved for topricin appl on shoulders) TREATMENT: Therapeutic Exercise: 1: yellow 2.2 ball wrist assembler mechanical ordnance elbow 2: digiflex 10 reps 5 lbs 3: cones for shoulders. Skilled Intervention: Patient was educated in proper exercise technique and purpose for exercises. Skilled judgment was provided in selection of appropriate interventions. Self-Skilled Nursing Management: Skilled Intervention: Educated pt on use of curved long bath sponge to apply pain relief cream for shoulders. Pt is unable to reach shoulders to apply normally and reports thathe has Icy Hot but can not put it on himself. Billing: Roya: Therapeutic Exercise (03393): 1:1 time: 30 minutes (2 units: 23-37 mins) Self Care / Home Management (04894): 1:1 time: 15 minutes (1 unit: 8-22 mins) Total time: 45 minutes HEATHER Jay/Fara PROGRESS Observed: 07/04/2018 Status: COMPLETED Source: [place] 8:47 AM [facility] [place] REPOSITORY [facility] ID: [id number] Author: eBata Alfaro PT ASSIST Service: (none) Author Type: Toy Assembly Supervisor Type: Progress Notes Filed: 07/04/2018 8:51 AM [...] provided in selection of appropriate interventions. Billing: Roya: Therapeutic Exercise (28693): 1:1 time: 50 minutes (3 units: 38-52 mins) Total time: 50 minutes eBata Alfaro PTA CNTHERAPY Observed: 07/04/2018 Status: COMPLETED Source: [place] 8:45 AM [facility] REPOSITORY OT/PT/Speech Visit (LTOT) JEFFREY CULLEN JR. ([id number]) 1950 M [facility] Date Time Provider Department 07/04/18 8:45 AM OT LODI PROVIDER LTOT Date Time Provider Department [place] 07/04/2018 8:45 AM [id number] LODI PROVIDER LTOT [address] Reason [...] Date Reviewed: 07/04/2018 Reviewed by: Stephani (Ot) CARMINE Shah - Fully Assessed Prescriptions as of [...] tablet by mouth once d* Progress Notes: Stephani Shah, OTR/Fara, OT 07/04/2018 11:13 AM Signed Episode Visit Count: 7 Therapist That Will Oversee The Plan Of Care: Vinnie Steele Start of Care Date: 06/09/18 Onset Date: 02/07/18 Plan of Care Certification Date: 06/09/18 Patient Identified by Name and Date of : Yes REHABILITATION AND SPORTS THERAPY OCCUPATIONAL THERAPY TREATMENT NOTE ASSESSMENT: Jeffrey Cullen demonstrated difficulty with all tasks this morning [...] WITH LEVEL OF FUNCTION: Hand Evaluation R Tabulating Supervisor Position 2 (lbs): 28 lbs (pt reports he is having a bad day. Tired) L Tabulating Supervisor Position 2 (lbs): 20 lbs Current Activities Of Daily Living Bathing Upper Body: (used long bath sponge curved for topricin appl on shoulders) TREATMENT: Therapeutic Exercise: 1: yellow 2.2 ball wrist assembler mechanical ordnance elbow 2: digiflex 10 reps 5 lbs 3: cones for shoulders. Skilled Intervention: Patient was educated in proper exercise technique and purpose for exercises. Skilled judgment was provided in selection of appropriate interventions. Self-Skilled Nursing Management: Skilled Intervention: Educated pt on use of curved long bath sponge to apply pain relief cream for shoulders. Pt is unable to reach shoulders to apply normally and reports thathe has Icy Hot but can not put it on himself. Johning: Roya: Therapeutic Exercise (87210): 1:1 time: 30 minutes (2 units: 23-37 mins) Self Care / Home Management (39600): 1:1 time: 15 minutes (1 unit: 8-22 mins) Total time: 45 minutes Stephani Shah OTR/Fara CNTHERAPY Observed: 07/04/2018 Status: COMPLETED Source: [place] 7:45 AM [facility] REPOSITORY OT/PT/Speech Visit (LDPT) JEFFREY CULLEN JR. ([id number]) 1950 M [facility] Date Time Provider Department 07/04/18 7:45 AM BEATA ALFARO ([facility]) LDPT Date Time Provider Department [place] 07/04/2018 7:45 AM [id number], PATRICK *LDPT [address] Reason for Visit: Physical Therapy [503] Primary Visit Diagnosis:Weakness [R53.1] Other Visit Diagnosis:SDH (subdural hematoma) ([facility]) [S06.5X9A] Allergies As of Date: 07/04/2018 Noted [...] provided in selection of appropriate interventions. Billing: Roya: Therapeutic Exercise (09902): 1:1 time: 50 minutes (3 units: 38-52 mins) Total time: 50 minutes Beata Alfaro PTA PROGRESS Observed: 06/30/2018 Status: COMPLETED Source: [place] 2:25 PM [facility] REPOSITORY O ID: [id number] Author: Stephani (Ot) CARMINE Shah Service: (none) Author Type: Occupational Therapist [...] OCCUPATIONAL THERAPY TREATMENT NOTE ASSESSMENT: Jeffrey Cullen JrPatrice demonstrated improvements in assembler mechanical ordnance strength. He brought in hard rubber ball that he had been using and was advised last visit not to use until staff looked at it. He reports that he had been using it constantly and stopped after he was told to. His assembler mechanical ordnance strength improved by 5 lbs this visit [...] WITH LEVEL OF FUNCTION: Hand Evaluation R Tabulating Supervisor Position 2 (lbs): 30 lbs L Tabulating Supervisor Position 2 (lbs): 25 lbs TREATMENT: Therapeutic [...] provided in selection of appropriate interventions. Billing: Roya: Therapeutic Exercise (26857): 1:1 time: 45 minutes (3 units: 38-52 mins) Total time: 45 minutes HEATHER Jay/Fara PROGRESS Observed: 06/30/2018 Status: COMPLETED Source: [place] 1:22 PM [facility] RE[facility] HNO ID: [id number] Author: Rufina (Pt) MANUEL Edward Service: (none) [...] peaks and valleys with activity tolerance. Billing: Roya: Therapeutic Exercise (11302): 1:1 time: 30 minutes (2 units: 23-37 mins) Gait Training (82211): 1:1 time: 15 minutes (1 unit: 8-22 mins) Total time: 45 minutes Rufina Edward PT CNTHERAPY Observed: 06/30/2018 Status: COMPLETED Source: [place] 10:30 AM [facility] REPOSITORY OT/PT/Speech Visit (LTOT) HARRISJEFFREY Chaudhari ([id number]) 1950 M [facility] Date Time Provider Department 06/30/18 10:30 AM OT LODI PROVIDER LTOT Date Time Provider Department [place] 06/30/2018 10:30 AM [id number] LODI PROVIDER LTOT [address] Reason [...] Date Reviewed: 06/30/2018 Reviewed by: Stephani (Ot) CARMINE Shah - Fully Assessed Prescriptions as of [...] tablet by mouth once d* Progress Notes: Stephani Shah, HEATHER/Fara, OT 06/30/2018 2:33 PM Signed Episode Visit Count: 6 Therapist That Will Oversee The Plan Of Care: Vinnie Steele Start of Care Date: 06/09/18 Onset Date: 02/07/18 Plan of Care Certification Date: 06/09/18 Patient Identified by Name and Date of : Yes REHABILITATION AND SPORTS THERAPY OCCUPATIONAL THERAPY TREATMENT NOTE ASSESSMENT: Jeffrey Fara Cullen Jr. demonstrated improvements in assembler mechanical ordnance strength. He brought in hard rubber ball that he had been using and was advised last visit not to use until staff looked at it. He reports that he had been using it constantly and stopped after he was told to. His assembler mechanical ordnance strength improved by 5 lbs this visit [...] WITH LEVEL OF FUNCTION: Hand Evaluation R Tabulating Supervisor Position 2 (lbs): 30 lbs L Tabulating Supervisor Position 2 (lbs): 25 lbs TREATMENT: Therapeutic [...] provided in selection of appropriate interventions. Billing: Roya: Therapeutic Exercise (78008): 1:1 time: 45 minutes (3 units: 38-52 mins) Total time: 45 minutes Stephani Shah OTR/Fara CNTHERAPY Observed: 06/30/2018 Status: COMPLETED Source: [place] 9:45 AM [facility] REPOSITORY OT/PT/Speech Visit (LDPT) JEFFREY CULLEN JR. ([id number]) 1950 M [facility] Date Time Provider Department 06/30/18 9:45 AM RUFINA EDWARD (PT) LDPT Date Time Provider Department Center 06/30/2018 9:45 AM [id number], CHRISTI *LDPT [address] Reason for Visit: Physical Therapy [503] Primary Visit Diagnosis:Weakness [R53.1] Other Visit Diagnosis:SDH (subdural hematoma) ([facility]) [S06.5X9A] Allergies As of Date: 06/30/2018 Noted Allergy Reaction BEE STING 04/22/2018 16 - Unknown Date Reviewed: 06/30/2018 Reviewed by: Stephani (Ot) Alyssa OT - Fully Assessed Prescriptions as of 06/30/2018 [...] peaks and valleys with activity tolerance. Billing: Roya: Therapeutic Exercise (69792): 1:1 time: 30 minutes (2 units: 23-37 mins) Gait Training (58717): 1:1 time: 15 minutes (1 unit: 8-22 mins) Total time: 45 minutes Rufina Edward PT PROGRESS Observed: 06/27/2018 Status: COMPLETED Source: [place] 10:40 AM [facility] REPOSITORY HNO ID: [id number] Author: Stephani Shah OT Service: (none) Author Type: Occupational [...] Jeffrey Fara Cullen Jr. demonstrated improvements in active rang of motion bilateral hands with full fist noted bilaterally. He also shows improved assembler mechanical ordnance to 25 pounds bilaterally. The patient will [...] WITH LEVEL OF FUNCTION: Hand Evaluation R Tabulating Supervisor Position 2 (lbs): 25 lbs L Tabulating Supervisor Position 2 (lbs): 25 lbs TREATMENT: Therapeutic [...] provided in selection of appropriate interventions. Billing: [place]: Therapeutic Exercise (58100): 1:1 time: 45 minutes (3 units: 38-52 mins) Total time: 45 minutes Stephani Shah OTR/Fara PROGRESS Observed: 06/27/2018 Status: COMPLETED Source: [place] 9:41 AM [facility] REPOSITORY HNO ID: [id number] Author: Beata Alfaro PT ASSIST Service: (none) Author Type: Toy Assembly Supervisor Type: Progress Notes Filed: 06/27/2018 9:45 AM [...] provided in selection of appropriate interventions. Billing: Roya: Therapeutic Exercise (49082): 1:1 time: 45 minutes (3 units: 38-52 mins) Total time: 45 minutes Beata Alfaro PTA CNTHERAPY Observed: 06/27/2018 Status: COMPLETED Source: [place] 9:30 AM [facility] REPOSITORY OT/PT/Speech Visit (LTOT) JEFFREY CULLEN JR. ([id number]) 1950 M T Date Time Provider Department 06/27/18 9:30 AM OT LODI PROVIDER LTOT Date Time Provider Department Center 06/27/2018 9:30 AM [id number] LODI PROVIDER LTOT [address] Reason [...] Unknown Date Reviewed: 06/27/2018 Reviewed by: Stephani (Ot) CARMINE Shah - Fully Assessed Prescriptions as of [...] fist noted bilaterally. He also shows improved assembler mechanical ordnance to 25 pounds bilaterally. The patient will [...] WITH LEVEL OF FUNCTION: Hand Evaluation R Tabulating Supervisor Position 2 (lbs): 25 lbs L Tabulating Supervisor Position 2 (lbs): 25 lbs TREATMENT: Therapeutic [...] provided in selection of appropriate interventions. Johning: Roya: Therapeutic Exercise (32609): 1:1 time: 45 minutes (3 units: 38-52 mins) Total time: 45 minutes XU Jay CNTHERAPY Observed: 06/27/2018 Status: COMPLETED Source: [place] 8:30 AM [facility] REPOSITORY OT/PT/Speech Visit (LDPT) JEFFREY CULLEN JR. ([id number]) 1950 M [facility] Date Time Provider Department 06/27/18 8:30 AM BEATA ALFARO (TICKET TAKER) LDPT Date Time Provider Department [place] 06/27/2018 8:30 AM [id number], PATRICK *LDPT [address] Reason for Visit: Physical Therapy [503] Primary Visit Diagnosis:Weakness [R53.1] Other Visit Diagnosis:SDH (subdural hematoma) ([facility]) [S06.5X9A] Allergies As of Date: 06/27/2018 Noted Allergy Reaction BEE STING 04/22/2018 16 - Unknown Date Reviewed: 06/27/2018 Reviewed by: Stephani (Ot) CARMINE Shah - Fully Assessed Prescriptions as of [...] provided in selection of appropriate interventions. Billing: Roya: Therapeutic Exercise (31123): 1:1 time: 45 minutes (3 units: 38-52 mins) Total time: 45 minutes Beata Alfaro PTA PROGRESS Observed: 06/20/2018 Status: COMPLETED Source: [place] 12:55 PM [facility] REPOSITORY HNO ID: [id number] Author: Nadeem (Ot) XU Steele Service: (none) [...] performing at home. Education provided on can fabric and accessories estimator/jar fabric and accessories estimator. TREATMENT: Therapeutic Exercise: 1: Issued red tputty [...] assessment of patient's response to intervention. Billing: [place]: Therapeutic Exercise (26832): 1:1 time: 15 minutes (1 unit: 8-22 mins) Manual therapy (30533): 1:1 time: 30 minutes (2 units: 23- 37 mins) Total time: 45 minutes HEATHER Diallo/Fara PROGRESS Observed: 06/20/2018 Status: COMPLETED Source: [place] 12:05 PM [facility] REPOSITORY [facility] ID: [id number] Author: Beata (Jostin) MANUEL Alfaro ASSIST Service: (none) Author Type: Toy Assembly Supervisor Type: Progress Notes Filed: 06/20/2018 12:10 PM Note Text: Episode Visit Count: 3 Therapist That Will Oversee The Plan Of Care: Reji Veliz Start of Care Date: 06/09/18 Onset Date: 02/06/18 Plan of Care Certification Date: 06/09/18 REHABILITATION AND SPORTS THERAPY PHYSICAL THERAPY TREATMENT NOTE ASSESSMENT: Jeffrey Cullen Jr. demonstrated difficulty with strengthening left [...] Intervention: Progressing gait to no assistive device. Mia: Roya: Therapeutic Exercise (68484): 1:1 time: 30 minutes (2 units: 23-37 mins) Gait Training (31507): 1:1 time: 20 minutes (1 unit: 8-22 mins) Total time: 50 minutes Beata Alfaro PTA CNTHERAPY Observed: 06/20/2018 Status: COMPLETED Source: [place] 11:15 AM [facility] REPOSITORY OT/PT/Speech Visit (LTOT) JEFFREY CULLEN JR. ([id number]) 1950 [facility] Date Time Provider Department 06/20/18 11:15 AM NADEEM STEELE (OT) LTOT Date Time Provider Department Center 06/20/2018 11:15 AM [id number], TIMOTHY *LTOT [address] Reason for [...] Unknown Date Reviewed: 06/16/2018 Reviewed by: Ursula Johnson) ANGELINA Chino - Fully Assessed Prescriptions as of [...] once d* Progress Notes: Nadeem Steele, OTR/L, OTR/Fara 06/20/2018 1:00 PM Signed Episode Visit Count: 4 Therapist That Will Oversee The Plan Of Care: Vinnie Steele Start of Care Date: 06/09/18 Onset Date: 02/07/18 Plan of Care Certification Date: 06/09/18 Patient Identified by Name and Date of : Yes REHABILITATION AND SPORTS THERAPY OCCUPATIONAL THERAPY TREATMENT NOTE ASSESSMENT: Jeffrey Fara Cullen Jr. demonstrated difficulty with accumulative finger [...] performing at home. Education provided on can fabric and accessories estimator/jar fabric and accessories estimator. TREATMENT: Therapeutic Exercise: 1: Issued red tputty [...] assessment of patient's response to intervention. Billing: Roya: Therapeutic Exercise (22262): 1:1 time: 15 minutes (1 unit: 8-22 mins) Manual therapy (56238): 1:1 time: 30 minutes (2 units: 23- 37 mins) Total time: 45 minutes XU Diallo CNTHERAPY Observed: 06/20/2018 Status: COMPLETED Source: [place] 10:00 AM [facility] REPOSITORY OT/PT/Speech Visit (LDPT) JEFFREY CULLEN JR. ([id number]) 1950 M CHT Date Time Provider Department 06/20/18 10:00 AM BEATA ALFARO (TICKET TAKER) LDPT Date Time Provider Department Center 06/20/2018 10:00 AM [id number], PATRICK *LDPT [address] Reason for Visit: Physical Therapy [503] Primary Visit Diagnosis:Weakness [R53.1] Other Visit Diagnosis:SDH (subdural hematoma) ([facility]) [S06.5X9A] Allergies As of Date: 06/20/2018 Noted Allergy Reaction BEE STING 04/22/2018 16 - Unknown Date Reviewed: 06/16/2018 Reviewed by: Ursula (Rn) ANGELINA Chino - Fully Assessed Prescriptions as of [...] Progress Notes: Beata Alfaro PTA, PT ASSIST 06/20/2018 12:10 PM Signed Episode Visit Count: 3 Therapist That Will Oversee The Plan Of Care: Reji Veliz Start of Care Date: 06/09/18 Onset Date: 02/06/18 Plan of Care Certification Date: 06/09/18 REHABILITATION AND SPORTS THERAPY PHYSICAL THERAPY TREATMENT NOTE ASSESSMENT: Jeffrey Cullen Jr. demonstrated difficulty with strengthening left [...] Progressing gait to no assistive device. Billing: Roya: Therapeutic Exercise (41756): 1:1 time: 30 minutes (2 units: 23-37 mins) Gait Training (14329): 1:1 time: 20 minutes (1 unit: 8-22 mins) Total time: 50 minutes Beata Alfaro PTA ED NOTE Observed: 06/16/2018 Status: COMPLETED Source: [place] 10:50 PM [facility] REPOSITORY HNO ID: [id number] Author: Ursula MoodyRn) ANGELINA Chino Service: Emergency Medicine Author Type: Registered Nurse Type: ED Notes Filed: 06/16/2018 10:50 PM Note Text: Discharge instructions given. All questions answered, no further questions or concerns. Pt ambulated to lobby with a steady and independent gait with family/friend. ED PROV NOTE Observed: 06/16/2018 Status: COMPLETED Source: [place] 10:49 PM [facility] REPOSITORY HNO ID: [id number] Author: Mami Hedrick DO Service: Emergency Medicine Author Type: Physician Type: ED Provider Notes Filed: 06/16/2018 10:57 PM Note Text: ED Provider Note Patient Name: Jeffrey Cullen JrPatrice SERVICE DATE: 06/16/18 History Patient presents with: [...] concerns. Condition at disposition is stable. SIGNATURE: Mami DO Michael Hedrickssica DO Floridalma 06/16/18 2257 ED NOTE Observed: 06/16/2018 Status: COMPLETED Source: [place] 10:10 PM [facility] REPOSITORY HNO ID: [id number] Author: Ursula (Rn) ANGELINA Chino Service: Emergency Medicine Author Type: Registered Nurse Type: ED Notes Filed: 06/16/2018 10:11 PM Note Text: Pt taking blood pressure at home and it's been high. 160/100. Hx of mi and aaa repair this year with extensive rehab. CNTHERAPY Observed: 06/16/2018 Status: COMPLETED Source: [place] 8:00 AM [facility] REPOSITORY OT/PT/Speech Visit (LTOT) JEFFREY CULLEN JR. ([id number]) 1950 M [facility] Date Time Provider Department 06/16/18 8:00 AM NADEEM STEELE (OT) LTOT Date Time Provider Department Center 06/16/2018 8:00 AM [id number], TIMOTHY *LTOT [facility] [address] Reason for [...] Date Reviewed: 04/26/2018 Reviewed by: Sheila (Rn) ANGELINA Jones - Fully Assessed Prescriptions as of [...] Jeffrey Fara Cullen Jr. demonstrated difficulty with wrist and [...] to facilitate proper performance and compliance. Billing: Roya: Therapeutic Exercise (21886): 1:1 time: 45 minutes (3 units: 38-52 mins) Total time: 45 minutes XU Diallo PROGRESS Observed: 06/16/2018 Status: COMPLETED Source: [place] 7:59 AM [facility] REPOSITORY O ID: [id number] Author: XU Diallo Ot Service: (none) Author [...] to facilitate proper performance and compliance. Billing: Roya: Therapeutic Exercise (18969): 1:1 time: 45 minutes (3 units: 38-52 mins) Total time: 45 minutes HEATHER Diallo/Fara INTERNAL MEDICINE Observed: 06/14/2018 Status: F Source: [place] OFFICE VISIT 10:12 AM [facility] Internal Medicine [address] [place] [address] [address] [place] [address] OFFICE VISIT Date of Service: 06/14/18 MR#: [id number] Acct: [id number] Name: JEFFREY CULLEN Rep #: [id number] : 1950 Provider: Richie De La Torre DO Age/Sex: 68/M Location: [facility] Status: Signed Intake Vital Signs06/14/18 Height 5 [...] Hyperlipemia E78.5 Hypertension I10 Time Spent (min) 06/14/18 1012 <Electronically signed by Richie De La Torre DO> Date Richie Gar Signature: Date (if applicable) CC: PROGRESS Observed: 06/13/2018 Status: COMPLETED Source: [place] 10:51 AM [facility] REPOSITORY HNO ID: [id number] Author: Beata Perez) MANUEL Alfaro ASSIST Service: (none) Author Type: Toy Assembly Supervisor Type: Progress Notes Filed: 06/13/2018 10:56 AM [...] home exercise program as above (*) Billing: Roya: Therapeutic Exercise (22007): 1:1 time: 45 minutes (3 units: 38-52 mins) Total time: 45 minutes Beata Perusek, TICKET TAKER CNTHERAPY Observed: 06/13/2018 Status: COMPLETED Source: [place] 7:45 AM [facility] REPOSITORY OT/PT/Speech Visit (LDPT) JEFFREY CULLEN JR. ([id number]) 1950 M CHT Date Time Provider Department 06/13/18 7:45 AM BEATA ALFARO (TICKET TAKER) LDPT Date Time Provider Department Center 06/13/2018 7:45 AM [id number], PATRICK *LDPT [facility] [address] Reason for Visit: Physical Therapy [503] Primary Visit Diagnosis:Weakness [R53.1] Other Visit Diagnosis:SDH (subdural hematoma) ([facility]) [S06.5X9A] Allergies As of Date: 06/13/2018 Noted Allergy Reaction BEE STING 04/22/2018 16 - Unknown Date Reviewed: 04/26/2018 Reviewed by: Sheila (Rn) ANGELINA Jones - Fully Assessed Prescriptions as of [...] home exercise program as above (*) Billing: Roya: Therapeutic Exercise (23356): 1:1 time: 45 minutes (3 units: 38-52 mins) Total time: 45 minutes Beata Alfaro PTA PROGRESS Observed: 06/09/2018 Status: COMPLETED Source: [place] 4:28 PM [facility] REPOSITORY O ID: [id number] Author: Reji (Pt) Jose Alfredo Service: (none) [...] of Care: created on 06/09/18 through 08/08/18 [place] in home exercise program. Patient will demonstrate [...] Planned Treatment Interventions: Therapeutic exercise;Neuromuscular re-education;Manual therapy;Therapeutic activities;Self-penitentiary management;Gait Training;Patient/Family/Caregiver Education;Body Mechanics Training;Functional training PLAN FOR NEXT VISIT: Progress with trunk stabilization and LE strengthening to facilitate pre-gait activities Patient demonstrates good understanding of plan of care and treatment. The above goals and plan of care were discussed and agreed upon by patient/family. SUBJECTIVE: Jeffrey Cullen Jr. is a 68 year old male seen today for had an NC, went for 3x bypass and had complications [...] appropriate interventions. Patient education as noted. Billing: Garrochales: Evaluation - Moderate Complexity (34754) Therapeutic Exercise (37612): 1:1 time: 25 minutes (2 units: 23-37 mins) Total time: 45 minutes Reji Veliz PT PROGRESS Observed: 06/09/2018 Status: COMPLETED Source: [place] 2:26 PM [facility] REPOSITORY HNO ID: [id number] Author: Nadeem (OtXU Abdul Service: (none) Author Type: Occupational Therapist Type: [...] CABG x3 vessels Surgical Procedure Date: 02/07/18 [facility] REHABILITATION AND SPORTS THERAPY OCCUPATIONAL THERAPY EVALUATION PLAN OF CARE: Assessment: Jeffrey Fara Cullen Jr. presents with the diagnosis of weakness of [...] through 09/01/18 Patient will complete HEP at [place] level. Patient will increase active ROM of bilateral hands and shoulders to WFL to allow patient to improved performance of ADLs. Patient will increase strength of BUE By at least 1/3 muscle grade to allow for improved ADL function Patient will increase bilateral assembler mechanical ordnance and pinches by 20# and 5# to [...] Planned Treatment Interventions: Therapeutic exercise;Therapeutic activities;Manual therapy;Neuromuscular re-education;Modalities;Self-penitentiary management;Patient/Family/Caregiver EducationUltrasound PLAN FOR NEXT VISIT: begin [...] Environment Patient Lives With: Self/Alone Assistance Available: timekeeper supervisor Home Type: [place] Entry To Home: Stairs;With [...] Bilateral Strength: Manual Muscle Testing;Pinch Meter;Dynamometer / Tabulating Supervisor R Tabulating Supervisor Position 2 (lbs): 20 lbs L Tabulating Supervisor Position 2 (lbs): 9 lbs R Lateral [...] Activity progression based on professional judgment. Billing: Roya: Evaluation - Moderate Complexity (77486) Therapeutic Functional Activity (16591): 1:1 time:15 minutes (1 unit: 8-22 mins) Total time: 50 minutes HEATHER Diallo/Fara CNTHERAPY Observed: 06/09/2018 Status: COMPLETED Source: [place] 9:15 AM [facility] REPOSITORY OT/PT/Speech Visit (LDPT) JEFFREY CULLEN JR. ([id number]) 1950 M CHT Date Time Provider Department 06/09/18 9:15 AM REJI VELIZ (PT) LDPT Date Time Provider Department Center 06/09/2018 9:15 AM [id number], STEPHEN (P*LDPT [facility] [address] Reason for Visit: PT Eval [747] Primary Visit Diagnosis:Weakness [R53.1] Other Visit Diagnosis:SDH (subdural hematoma) (HCC) [S06.5X9A] Allergies As of Date: 06/09/2018 Noted Allergy Reaction BEE STING 04/22/2018 16 - Unknown Date Reviewed: 04/26/2018 Reviewed by: Sheila (Rn) ANGELINA Jones - Fully Assessed Prescriptions as of [...] of Care: created on 06/09/18 through 08/08/18 [place] in home exercise program. Patient will demonstrate [...] Planned Treatment Interventions: Therapeutic exercise;Neuromuscular re-education;Manual therapy;Therapeutic activities;Self-penitentiary management;Gait Training;Patient/Family/Caregiver Education;Body Mechanics Training;Functional training PLAN FOR NEXT VISIT: Progress with trunk stabilization and LE strengthening to facilitate pre-gait activities Patient demonstrates good understanding of plan of care and treatment. The above goals and plan of care were discussed and agreed upon by patient/family. SUBJECTIVE: Jeffrey Cullen Jr. is a 68 year old male seen today for had an NC, went for 3x bypass and had complications [...] appropriate interventions. Patient education as noted. Billing: Garrochales: Evaluation - Moderate Complexity (80133) Therapeutic Exercise (47110): 1:1 time: 25 minutes (2 units: 23-37 mins) Total time: 45 minutes Reji Black, PT Letter Text CNTHERAPY Observed: 06/09/2018 Status: COMPLETED Source: [place] 8:00 AM [facility] REPOSITORY OT/PT/Speech Visit (LTOT) JEFFREY CULLEN JR. ([id number]) 1950 M T Date Time Provider Department 06/09/18 8:00 AM NADEEM STEELE (OT) LTOT Date Time Provider Department Center 06/09/2018 8:00 AM [id number], TIMOTHY *LTOT [facility] [address] Reason for [...] Date Reviewed: 04/26/2018 Reviewed by: Sheila (Rn) ANGELINA Jones - Fully Assessed Prescriptions as of [...] TABLET Take 2.5 mg by mouth once akterina* NADOLOL 20 MG TABLET Take 40 mg [...] by mouth once d* Progress Notes: Nadeem Steele OTR/L, OTR/L 06/09/2018 3:57 PM Signed Episode Visit Count: 1 Therapist That Will Oversee The Plan Of Care: Vinnie Steele Start of Care Date: 06/09/18 Onset Date: 02/07/18 Plan of Care Certification Date: 06/09/18 Patient Identified by Name and Date of : Yes Rehab Precautions: HTN;Cardiac;Fall Risk;Seizure Precaution/Activity Restriction Comments: lifting restrictions Surgical Procedure: CABG x3 vessels Surgical Procedure Date: 02/07/18 [facility] REHABILITATION AND SPORTS THERAPY OCCUPATIONAL THERAPY EVALUATION PLAN OF CARE: Assessment: Jeffrey Cullen Jr. presents with the diagnosis of weakness of [...] through 09/01/18 Patient will complete HEP at [place] level. Patient will increase active ROM of bilateral hands and shoulders to WFL to allow patient to improved performance of ADLs. Patient will increase strength of BUE By at least 1/3 muscle grade to allow for improved ADL function Patient will increase bilateral assembler mechanical ordnance and pinches by 20# and 5# to [...] Planned Treatment Interventions: Therapeutic exercise;Therapeutic activities;Manual therapy;Neuromuscular re-education;Modalities;Self-penitentiary management;Patient/Family/Caregiver EducationUltrasound PLAN FOR NEXT VISIT: begin [...] Environment Patient Lives With: Self/Alone Assistance Available: timekeeper supervisor Home Type: [place] Entry To Home: Stairs;With [...] Bilateral Strength: Manual Muscle Testing;Pinch Meter;Dynamometer / Tabulating Supervisor R Tabulating Supervisor Position 2 (lbs): 20 lbs L Tabulating Supervisor Position 2 (lbs): 9 lbs R Lateral [...] Activity progression based on professional judgment. Billing: Roya: Evaluation - Moderate Complexity (57324) Therapeutic Functional Activity (27024): 1:1 time:15 minutes (1 unit: 8-22 mins) Total time: 50 minutes XU Diallo Letter Text INTERNAL MEDICINE Observed: 06/07/2018 Status: F Source: [place] OFFICE VISIT 1:32 PM [facility] Internal Medicine [address] [place] [address] [place] [address] OFFICE VISIT Date of Service: 06/07/18 MR#: [id number] Acct: [id number] Name: JEFFREY CULLEN Rep #: [id number] : 1950 Provider: Tonia Pickard NP Age/Sex: 68/M Location: [facility] Status: Signed Intake Vital Signs06/07/18 Height 5 [...] February 06, 2018 he was taken to [facility] emergency room first visual changes, in the ER he began to have chest pain and was told he was having a heart attack. He was sent to [facility] where he received bypass surgery. At some point he was transferred to [facility] for therapy. The patient states a few hours into his stay in the [facility] he fell out of his wheelchair and hit his head. At this point his story is very vague, he is not sure about a hospital stay at this point but does note somehow he ended up at [facility] for brain bleed. After [facility] he was transferred back to [facility] for therapy. He was discharged from [facility] June 03, to home, but was given a limited supply of medications. He states he does not know his cardiothoracic surgeon, or who his bilingual spanish inbound sales is , he says he has never [...] He is unsure if he has a bilingual spanish inbound sales, he states he has not had any follow- up appointments with either. Records have been requested. 2. Traumatic subarachnoid hemorrhage with loss of consciousness S06.6X9A Plan Patient is poor historian, he is very unsure about his hospital stay. He received inpatient therapy at [facility]. He is receiving physical therapy and occupational [...] with patient. This note was generated with Streyneration software. It may contain incorrect words, spelling, [...] URIC ACID Collected: 05/13/2018 Status: F Source: [place] 8:45 AM [facility] REPOSITORY TYPE CODE TESTS RESULT OUT OF RANGE REFERENCE UNITS LAB URIC 4.0-8.1 mg/dL Uric Acid 4.7 Performed By: #### URIC, WSR #### [facility] [address] [address] SED RATE WESTERGREN Collected: 05/13/2018 Status: F Source: [place] 8:45 AM [facility] REPOSITORY TYPE CODE TESTS RESULT OUT OF REFERENCE UNITS RANGE LAB WSR 0-15 mm/hr Sed Rate High Westergren 27 Performed By: #### URIC, WSR #### [facility] [address] [address] [address] HEAD W/O CONTRAST Observed: 2018 Status: F Source: [facility] 12:50 PM HEALTH SYSTEM REPOSITORY Performed at [facility] APPROVED BY: Jose Myles MD BRAIN CT [...] VALPROIC ACID Collected: 05/04/2018 Status: F Source: [place] 4:54 AM [facility] REPOSITORY TYPE CODE TESTS RESULT OUT OF REFERENCE UNITS RANGE LAB VPA 50-100 ug/mL Low Valproic Acid 23.2 Result Comment: Reference ranges and high/low indicator flags are provided as general guidelines only. The treating physician must determine appropriate target levels/dosing based on the specific clinical situation. Performed By: #### VPA #### [facility] [address] [place] [address] BASIC METABOLIC PANL Collected: 05/01/2018 Status: F Source: [place] 4[facility] TYPE CODE TESTS RESULT OUT OF REFERENCE UNITS RANGE LAB GLU 74-99 mg/dL Glucose 81 Result Comment: The [place] Diabetes Association (ADA) provides guidance for cutoff [...] Standards of Medical Care in Diabetes 2016, [place] [employer]. Diabetes Care. 2016.39(Suppl 1). LAB [...] actual GFR. Performed By: #### BMP #### [facility] [address] [place], [place] [address] Observed: 04/30/2018 Status: F Source: [place] RESPIRATORY CULT/STAIN 12:03 PM [facility] REPOSITORY Smear Result - Few [...] shannan present Performed By: #### RCULST #### [facility] [address] [place], [place] [address] CNDS Observed: 04/27/2018 Status: COMPLETED Source: [place] 2:16 PM [facility]AMP[facility] REPOSITORY HNO ID: [id number] Author: Lynne Christy Service: Trauma Author Type: [...] PNA. Afib on Eliquis. Given Feba at [facility]. ?Baseline encephalopathy, oriented to person and place, but not time; impulsive - sitter at bedside as pt wants to ambulate without assistance. Neurosurgery consult: Neuro checksNilda 7 days, follow up scheduled; hold Eliquis until then. O2 per trach collar at 28%. Tube feeds, tolerating mechanical soft diet per speech therapy recommendations. Pain controlled. Physical Therapy recommended Acute Rehab. Discharged to [facility]. ? OTHER PROBLEMS/DIAGNOSIS: Active Problems: Malnutrition of moderate degree (HCC) Encephalopathy Weakness CAD (coronary artery disease) Chronic respiratory failure (HCC) SDH (subdural hematoma) (HCC) Resolved Problems: Fall from wheelchair OPERATIONS PERFORMED WHILE IN THE HOSPITAL: None IMPORTANT TEST/PROCEDURES: No procedures performed TEST RESULTS NOT AVAILABLE AT THIS TIME: No pending results Discharge Disposition Discharge Disposition: Longterm Facility - Less than 30 Days Activity When You Leave the Hospital Resume pre-hospital activity Impulsive - safety risk for falls Diet Instructions Other: Mechanical soft diet + TF's For Pain When You Leave the Hospital If you become constipated, you may use any gfdv-gcl-nivpowk treatment such as Milk of Magnesia, Sennakot, Prune Juice, Suppositories, etc. in addition to the stool softener/fiber supplement Use the dispensed medication (see prescription) You should use an qard-hdp-ywjtgaw stool softener (Docusate sodium) and/or a fiber [...] to call for appointment?: Scheduled Bert Bain [phone] [address] [place] [address] PCP Requested Referral Follow-Up Appointment When: In 2 weeks Patient/Parents to call for appointment?: Yes Julio César Lara [phone] [address] [facility] [address] [place] [address] PCP Requested Referral Additional Provider to Provider Information: Active Problems: Malnutrition of moderate degree (HCC) POA: Yes Encephalopathy POA: Yes Weakness POA: Yes CAD (coronary artery disease) POA: Yes Chronic respiratory failure (HCC) POA: Yes SDH (subdural hematoma) (HCC) POA: Yes Resolved Problems: Fall from wheelchair POA: Yes FOLLOW-UP APPOINTMENTS ALREADY SCHEDULED WITH A [facility] PROVIDER: No future appointments. DISCHARGE MEDICATION: [...] discharge management of this patient. SIGNATURE: Sommer Graner APRN.CABINET ASSEMBLER PAGER/CONTACT #: DATE: April 27, 2018 TIME: [...] CASE MANAGEM Observed: 04/27/2018 Status: COMPLETED Source: [place] 10:07 AM [facility] REPOSITORY HNO ID: [id number] Author: Jeri (Rn) ANGELINA Coppola Service: Care Management Author Type: Registered Nurse Type: Care Mgt Progress Note Filed: 04/27/2018 2:53 PM Note Text: Ok'd for admission to [facility] today. tabulating supervisor by [facility] ambulance at 3pm. Pt aware. Spoke to Sister, Trev. She is aware of discharge to [facility]. [facility] liaison aware of need for bedside sitter upon arrival. CHEST 1 VIEW Observed: 04/27/2018 Status: F Source: [facility] 9:24 AM HEALTH SYSTEM REPOSITORY Performed at [facility] APPROVED BY: Efren Benson MD EXAM TITLE: [...] emphysema. PROGRESS Observed: 04/27/2018 Status: COMPLETED Source: [place] 6:42 AM CLINIC OTHER CAMPUS REPOSITORY [facility] ID: [id number] Author: Sommer (Conor Pascual Service: Trauma Author Type: Nurse Specialist [...] kg/m? O2 Therapy: Trach Collar IANDO: Date 04/26/18699 - 04/27/18 0659 04/27/18 07 - 04/28/18 0659 Shift 7344-6598 1177-6572 3729-8700 24 Hour Total 5041-6670 1207-1442 7549-5817 24 Hour Total I N T A K E PO 930 5394 806 1657 PO 480 120 600 Tube Feed Intake (GI Feed/Drain 04/23/181850 Admission to Hospital Gastrostomy-Jejunostomy (G-J) Abdomen) 450 5504 551 9198 IV 350 100 450 IVPB 250 250 Levetiracetam IV 100 100 200 Irrigants 60 115 30 205 Irrigant/Flush Amount In (GI Feed/Drain 04/23/181850 Admission to Hospital Gastrostomy-Jejunostomy (G-J) Abdomen) 60 115 30 205 Shift Total 1340 2735 187 6327 O U T P U T Urine [...] above ABDOMEN: Soft, non-tender, non-distended; PEG tube (TICKET TAKER) EXTREMITIES: MATHEW, No deformities, No edema SKIN: Skin color, texture, turgor normal, No rashes or lesions ASSESSMENT AND PLAN: Active Hospital Problems Diagnosis Date Noted - SDH (subdural hematoma) ([facility]) 04/22/2018 - Fall from wheelchair 04/22/2018 - CAD (coronary artery disease) - Chronic respiratory failure ([facility]) - Weakness 03/09/2018 - Encephalopathy 03/04/2018 Overview Note: - Malnutrition of moderate degree ([facility]) 02/20/2018 ? 67 year old male with [...] questions or concerns Mon-Fri 6a-5p please page [phone]. After 5pm and on Weekends and Holidays, please page [phone] if in ICU or [phone] if on RNF. SIGNATURE:Sommer Garner APRN, CABINET ASSEMBLER PATIENT NAME: Jeffrey Cullen DATE: April 27, 2018 TIME: 7:06 AM Pager: above IONIZED CALCIUM Collected: 04/27/2018 Status: F Source: [facility] 3:10 AM HEALTH SYSTEM REPOSITORY TYPE CODE TESTS RESULT OUT OF REFERENCE UNITS RANGE LAB CAION(LOINC 4.43-4.93 mg/dL ) Ionized 4.69 Calcium LAB PHCAI(LOINC 7.320-7.420 ) pH 7.403 LAB CAPH(LOINC) 4.36-4.73 mg/dL Ionized 4.70 Ca,PH7.4 Performed By: #### IONCA #### [facility] [address] [address] HEMOGRAM/DIFF Collected: 04/27/2018 Status: F Source: [facility] 3:10 AM HEALTH SYSTEM REPOSITORY TYPE CODE [...] LAB MONON(LOIN 0.30-0.82 thou/cmm C) Abs. High [place] 0.86 LAB EOSN(LOINC 0.04-0.54 thou/cmm ) Abs. Eosin 0.21 LAB BASON(LOIN 0.01-0.08 thou/cmm C) Abs. Baso 0.05 Performed By: #### CBCD1 #### [address] [address] BASIC PANEL Collected: 04/27/2018 Status: F Source: [facility] 3:10 AM HEALTH SYSTEM REPOSITORY TYPE CODE [...] Gap 10 Performed By: #### P8 #### [address] [address] MAGNESIUM BLOOD Collected: 04/27/2018 Status: F Source: [facility] 3:10 AM HEALTH SYSTEM REPOSITORY TYPE CODE TESTS RESULT OUT OF REFERENCE UNITS RANGE LAB MAG(LOINC) 1.6-2.6 mg/dL Magnesium Blood 1.8 Performed By: #### MAG #### [place] [address] PHOSPHORUS BLOOD Collected: 04/27/2018 Status: F Source: [facility] 3:10 AM HEALTH SYSTEM REPOSITORY TYPE CODE TESTS RESULT OUT OF REFERENCE UNITS RANGE LAB PHOS(LOINC 2.5-4.9 mg/dL ) Phosphorus Blood 3.4 Performed By: #### PHOS #### [facility] [address] [place], [place] [address] MDRD GFR Collected: 04/27/2018 Status: F Source: [facility] 3:10 AM HEALTH SYSTEM REPOSITORY TYPE CODE TESTS RESULT OUT OF RANGE REFERENCE UNITS LAB GFRFN(LOINC >60mL/min/1.73m ) 2 eGFR >60 Result Comment: If the patient is , multiply the result by 1.210. Performed By: #### GFR #### [facility] [address] [place], [place] [address] TOTAL 25-OH VITAMIN Collected: 04/26/2018 Status: F Source: [facility] D 5:45 PM HEALTH SYSTEM REPOSITORY TYPE CODE TESTS RESULT OUT OF REFERENCE UNITS RANGE LAB 25VD1(LOINC 30.0-100.0 ng/mL ) Total 25-OH 31.2 Vitamin D Performed By: #### 25VD1 #### [facility] [address] [place], [place] [address] THERAPY NT Observed: 04/26/2018 Status: COMPLETED Source: [facility] 4:23 PM CLINIC OTHER CAMPUS REPOSITORY HNO ID: [id number] Author: Ursula (Pt) Jay Jay Service: Physical Therapy Author Type: Physical Therapist Type: Therapy (PT/OT/Speech/Resp) Filed: 04/26/2018 4:30 PM Note Text: Physical Therapy Treatment SERVICE DATE: 04/26/2018 SERVICE TIME: 1550 to 1615 ROOM: [place] [address] Recommended Discharge Disposition: Acute Rehab Justification For [...] mobility-other;Muscle Weakness (generalized) Interventions Provided: Therapeutic Exercise (64034);Therapeutic Activity (37122);Gait Training (31893) Therapeutic Exercise (37365) Treatment Minutes: 8 1 unit Skilled Intervention(s): Patient completed general strengthening exercises in supine, at edge of bed or chair (heel raises, toe raises, seated hip flexion, long arc quad) x 15 reps bilateral lower extremity. Pt required minimal verbal cueing for facilitation of muscle control, optimal recruitment, and alignment. Therapeutic Activity (01874) Treatment Minutes: 5 0 units Skilled Intervention(s): [...] moderate verbal and tactile cueing Gait Training (68682) Treatment Minutes: 12 1 unit Skilled Intervention(s): [...] 26, 2018 TIME: 4:23 PM PAGER/CONTACT #: [phone] PROGRESS Observed: 04/26/2018 Status: COMPLETED Source: [facility] 3:54 PM CLINIC OTHER CAMPUS REPOSITORY HNO ID: [id number] Author: Eliza Lacy Service: Hospital Medicine Author Type: Physician Type: Progress Notes Filed: 04/26/2018 3:58 PM Note Text: DEPARTMENT OF HOSPITAL MEDICINE PROGRESS NOTE SERVICE DATE: 04/26/2018 SERVICE TIME: 3:54 PM Hospital Medicine/Primary Attending: Eliza Lacy MD NIGHT AND WEEKEND COVERAGE: After 7pm, please call cross cover pager #[phone] Subjective CC/Follow up for Medical management INTERVAL [...] #: NUTRITION Observed: 04/26/2018 Status: COMPLETED Source: [facility] 3:11 PM CLINIC OTHER CAMPUS REPOSITORY HNO ID: [id number] Author: Saundra Caraballo RD Service: Nutrition Therapy [...] 67 year old white male. Presented to [facility] from his assisted after a fall from his wheelchair, struck his face and had a laceration to the left forehead that was repaired at [facility]. CT head showed SDH, so he was transferred to [facility]. Patient was recently discharged to his assisted from [facility]. S/p Trach/PEG. Recent h/o CABG in 02/12, complicated with resp failure, encephalopathy, and E. Coli/Klebsiella PNA. Afib on Eliquis. Given Feba at [facility]. Baseline encephalopathy, oriented to person and place, [...] April 26, 2018 TIME: 3:12 PM PAGER: [phone] CASE MANAGEM Observed: 04/26/2018 Status: COMPLETED Source: [place] 9:11 AM [facility] OTHER [place] REPOSITORY HNO ID: [id number] Author: Jeri MoodyRn) ANGELINA Coppola Service: Care Management Author Type: Registered Nurse Type: Care Mgt Progress Note Filed: 04/26/2018 2:49 PM Note Text: Accepted @ [facility] when medically ready for discharge. No pre-cert required. Bedside sitter does NOT need to be discontinued. PROGRESS Observed: 04/26/2018 Status: COMPLETED Source: [facility] 7:05 AM [facility] OTHER [place] REPOSITORY HNO ID: [id number] Author: Sommer Garner (Cns) Service: Trauma Author [...] kg/m? O2 Therapy: Room Air IANDO: Date 04/25/18699 - 04/26/18 0659 04/26/18 07 - 04/27/18 0659 Shift 4308-7101 4915-7001 1663-7415 24 Hour Total 8540-9487 0611-6687 6579-0043 24 Hour Total I N T A K E PO 1055 855 843 0192 PO 720 222 942 Tube Feed Intake (GI Feed/Drain 04/23/181850 Admission to Hospital Gastrostomy-Jejunostomy (G-J) Abdomen) 335 714 006 5303 IV 200 100 300 Levetiracetam IV 200 100 300 Irrigants 140 30 30 200 Irrigant/Flush Amount In (GI Feed/Drain 04/23/181850 Admission to Hospital Gastrostomy-Jejunostomy (G-J) Abdomen) 140 30 30 200 Shift Total 1395 072 528 2787 O U T P U T Urine [...] above ABDOMEN: Soft, non-tender, non-distended; PEG tube (TICKET TAKER) EXTREMITIES: MATHEW, No deformities, No edema SKIN: Skin color, texture, turgor normal, No rashes or lesions ASSESSMENT AND PLAN: Active Hospital Problems Diagnosis Date Noted - SDH (subdural hematoma) (FORMERLY [facility]) 04/22/2018 - Fall from wheelchair 04/22/2018 - CAD (coronary artery disease) - Chronic respiratory failure ([facility]) - Weakness 03/09/2018 - Encephalopathy 03/04/2018 Overview Note: - Malnutrition of moderate degree ([facility]) 02/20/2018 ? 67 year old male with [...] questions or concerns Mon-Fri 6a-5p please page [phone]. After 5pm and on Weekends and Holidays, please page [phone] if in ICU or [phone] if on RNF. SIGNATURE:Sommer Garner APRN, MALIA PATIENT NAME: Jeffrey Cullen DATE: April 26, 2018 TIME: 7:06 AM Pager: [phone] IONIZED CALCIUM Collected: 04/26/2018 Status: F Source: [facility] 5:20 AM HEALTH SYSTEM REPOSITORY TYPE CODE TESTS RESULT OUT OF REFERENCE UNITS RANGE LAB CAION(LOINC 4.43-4.93 mg/dL ) Ionized 4.66 Calcium LAB PHCAI(LOINC 7.320-7.420 ) pH High 7.428 LAB CAPH(LOINC) 4.36-4.73 mg/dL Ionized 4.73 Ca,PH7.4 Performed By: #### IONCA #### [facility] [address] [place] [address] HEMOGRAM/DIFF Collected: 04/26/2018 Status: F Source: [facility] 5:20 AM HEALTH SYSTEM REPOSITORY TYPE CODE [...] 1.18 LAB MONON(LOIN 0.30-0.82 thou/cmm C) Abs. [place] 0.61 LAB EOSN(LOINC 0.04-0.54 thou/cmm ) Abs. Eosin 0.23 LAB BASON(LOIN 0.01-0.08 thou/cmm C) Abs. Baso 0.04 Performed By: #### CBCD1 #### [facility] [address] [place] [address] BASIC PANEL Collected: 04/26/2018 Status: F Source: [facility] 5:20 AM HEALTH SYSTEM REPOSITORY TYPE CODE [...] Gap 10 Performed By: #### P8 #### [place] [address] MAGNESIUM BLOOD Collected: 04/26/2018 Status: F Source: [facility] 5:20 AM HEALTH SYSTEM REPOSITORY TYPE CODE TESTS RESULT OUT OF REFERENCE UNITS RANGE LAB MAG(LOINC) 1.6-2.6 mg/dL Magnesium Blood 1.8 Performed By: #### MAG #### [place] [address] PHOSPHORUS BLOOD Collected: 04/26/2018 Status: F Source: [facility] 5:20 AM HEALTH SYSTEM REPOSITORY TYPE CODE TESTS RESULT OUT OF REFERENCE UNITS RANGE LAB PHOS(LOINC 2.5-4.9 mg/dL ) Low Phosphorus Blood 2.3 Performed By: #### PHOS #### [address] [place], [place] [address] MDRD GFR Collected: 04/26/2018 Status: F Source: [facility] 5:20 AM HEALTH SYSTEM REPOSITORY TYPE CODE TESTS RESULT OUT OF RANGE REFERENCE UNITS LAB GFRFN(LOINC >60mL/min/1.73m ) 2 eGFR >60 Result Comment: If the patient is , multiply the result by 1.210. Performed By: #### GFR #### [facility] [address] [place], [place] [address] CONSULT PROG Observed: 04/25/2018 Status: COMPLETED Source: [facility] 4:47 PM CLINIC OTHER CAMPUS REPOSITORY HNO ID: [id number] Author: Eliza Lacy Service: Hospital Medicine Author Type: Physician Type: Consult Progress Note Filed: 04/25/2018 5:04 PM Note Text: DEPARTMENT OF HOSPITAL MEDICINE PROGRESS NOTE SERVICE DATE: 04/25/2018 SERVICE TIME: 4:47 PM Hospital Medicine/Primary Attending: Eliza Lacy MD NIGHT AND WEEKEND COVERAGE: After 7pm, please call cross cover pager #[phone] Subjective CC/Follow up for Med management INTERVAL [...] Enzymes ABGs Results BLOOD CULTURE DRAW (Order [id number]) Patient Info Patient Name Sex Jeffrey Cullen ([id number]) Male 1950 Collection Information Specimen ID: [id number] Specimen Type: Other BLOOD-FAN AEROBIC AND FAN ANAEROBIC BOTTLES Collected: 04/22/2018 ?5:02 AM Resulting Agency: [facility] RIGHT FOREARM 04/25/2018 ?9:15 AM - Micro, [place] In Component Results Component Performing Lab Culture (Abnormal) (Preliminary) CCM Preliminary Gram stain. Gram variable bacilli Culture (Preliminary) CCM Reincubate Culture (Preliminary) CCM (NOTE) Positive result called to and read back by: Radha [place] [facility] Micro lab 04/24/18 0602 Deep Assessment/Plan Encephalopathy - unsure of mental status [...] THERAPY NT Observed: 04/25/2018 Status: COMPLETED Source: [facility] 4:05 PM CLINIC OTHER CAMPUS REPOSITORY O ID: [id number] Author: Suzanne Fischer Service: Physical Therapy Author Type: Toy Assembly Supervisor Type: Therapy (PT/OT/Speech/Resp) Filed: 04/25/2018 4:14 PM Note Text: Attestation signed by Ursula Goyal at 04/25/2018 4:30 PM I reviewed and agree with the documentation corresponding to this therapy visit. SIGNATURE: Ursula Goyal PT DATE: April 25, 2018 TIME: 4:30 PM Physical Therapy Treatment SERVICE DATE: 04/25/2018 SERVICE TIME: 1530 to 1553 ROOM: [id number] Recommended Discharge Disposition: Subacute/SNF Justification For Post [...] mobility-other;Muscle Weakness (generalized) Interventions Provided: Therapeutic Exercise (78833);Therapeutic Activity (38898);Gait Training (51771) Therapeutic Exercise (04187) Treatment Minutes: 10 1 unit Skilled Intervention(s): Instruction in therapeutic exercise for ROM and strengthening . Pt performed the following exercise : AP's , glut sets, quad sets, hip adductor squeeze , LAQ's B LE's x 12 with min A. Therapeutic Activity (21192) Treatment Minutes: 5 0 units Skilled Intervention(s): Instruction in sit to and from stand technique with proper hand placement and body positioning at edge of bed/chair with verbal cues for proper technique . Gait Training (50873) Treatment Minutes: 8 1 unit Skilled Intervention(s): [...] 25, 2018 TIME: 4:05 PM PAGER/CONTACT #: [phone] CASE MGT INIT Observed: 04/25/2018 Status: COMPLETED Source: [facility] 10:43 AM CLINIC OTHER CAMPUS REPOSITORY HNO ID: [id number] Author: Jeri MoodyRn) ANGELINA Coppola Service: Care Management Author Type: Registered Nurse Type: Care Mgt Initial Assessment Filed: 04/25/2018 10:54 AM Note Text: CARE MANAGEMENT: ASSESSMENT AND DISCHARGE PLAN SERVICE DATE: 04/25/2018 SERVICE TIME: 10:43 AM PRIMARY CARE PHYSICIAN: Julio César Lara MD ADMISSION STATUS: Inpatient MEDICAL: Patient/Formula Technician Stated Goals: To return home to life [...] Treatments Has the Patient Been in a Longterm Facility in the Past 30 days? Yes. Where and Dates: [facility] for less than 24 hours. Was at [facility] prior to SNF SOCIAL: Living Arrangement: Home Lives With: Alone Financial Resources: Retired Primary Contact: Extended Emergency Contact Information Primary Emergency Contact: KermitTrev [place] Mobile Relation: Sister Supportive: Yes Other Important [...] 0 I feel financially burdened by my eub-tq-mjtqpt expenses for my prescription medication: Disagree completely [...] list given to pt and discussed with SisterTrev POTENTIAL TRANSITION PLANS Longterm Facility/Intermediate Care Facility Spoke to patient @ bedside. Has a sitter, not always accurate with information. Spoke to SisterTrev by phone. She resides in [place]. She states he has had a long, complicated course since January. He left [facility] and went to [facility] in February. Was then sent to [facility], where he fell less than 24 hours after admission and re-admitted here. Prior to January, he lived alone and was totally independent with adl's. PT/OT rec SNF. Pts first choice is [facility] SNF. Awaiting acceptance. SIGNATURE: Jeri Coppola RN PATIENT NAME: Jeffrey Cullen DATE: April 25, 2018 TIME: 10:43 AM PAGER/CONTACT #: [phone] THERAPY NT Observed: 04/25/2018 Status: COMPLETED Source: [facility] [place] 9:07 AM CLINIC OTHER CAMPUS REPOSITORY HNO ID: [id number] Author: Gregg (Ccc-Apparatus Engineering Technologist) PEARL Rand/BACKUP ADMINISTRATIVE COORDINATOR Service: Speech/Swallow Author Type: Speech Language Pathologist Type: Therapy (PT/OT/Speech/Resp) Filed: 04/25/2018 9:13 AM Note Text: Speech Therapy MBSS Evaluation SERVICE DATE: 04/25/2018 SERVICE TIME: 0830 to 0900 ROOM: [place] [address] Nursing Recommendations: See swallow guide posted in [...] Lateral position MBS Consistencies Tested: Thin Barium Liquids;[place] Thick Barium Liquids;Puree With Barium Paste;Solid With [...] phase Interventions Provided: Modified Barium Swallow Study (80346) $ Modified Barium Swallow Study (94477) Billed Units: 1 unit Total Treatment Time [...] for this therapy evaluation/treatment. SIGNATURE: Gregg Rand CCC-BACKUP ADMINISTRATIVE COORDINATOR PATIENT NAME: Jeffrey Cullen DATE: April 25, 2018 TIME: 9:07 AM PAGER: [phone] DENIS SWALLOW S Observed: 04/25/2018 Status: F Source: [facility] 8:55 AM HEALTH SYSTEM REPOSITORY Performed at [facility] APPROVED BY: Jerry Singh MD EXAM TITLE: [...] only. PROGRESS Observed: 04/25/2018 Status: COMPLETED Source: [facility] 6:06 AM CLINIC OTHER CAMPUS REPOSITORY HNO ID: [id number] Author: Lynne Christy Service: Trauma Author Type: [...] O2 Therapy: Trach Collar IANDO: Date 04/24/18 0700 - 04/25/18 0659 04/25/18 0700 - 04/26/18 0659 Shift 3095-5248 9888-6315 2910-5178 24 Hour Total 4601-6699 2282-7421 2257-9046 24 Hour Total I N T A K E PO 363 550 0433 Tube Feed Intake (GI Feed/Drain 04/23/181850 Admission to Hospital Gastrostomy-Jejunostomy (G-J) Abdomen) 958 634 1555 Irrigants 120 30 90 240 Irrigant/Flush Amount In (GI Feed/Drain 04/23/181850 Admission to Hospital Gastrostomy-Jejunostomy (G-J) Abdomen) 120 [...] questions or concerns Mon-Tue 6a-5p please page [phone]. After 5pm and on Weekends and Holidays, please page [phone] if in ICU or [phone] if on RNF. SIGNATURE: Rusty Hagan MD [...] PM HEMOGRAM/DIFF Collected: 04/25/2018 Status: F Source: [facility] 3:15 AM HEALTH SYSTEM REPOSITORY TYPE CODE [...] 1.32 LAB MONON(LOIN 0.30-0.82 thou/cmm C) Abs. [place] 0.44 LAB EOSN(LOINC 0.04-0.54 thou/cmm ) Abs. Eosin 0.28 LAB BASON(LOIN 0.01-0.08 thou/cmm C) Abs. Baso 0.03 Performed By: #### CBCD1 #### [place] [id number] BASIC PANEL Collected: 04/25/2018 Status: F Source: [facility] 3:15 AM HEALTH SYSTEM REPOSITORY TYPE CODE [...] Gap 8 Performed By: #### P8 #### [facility] [address] [place] [address] MAGNESIUM BLOOD Collected: 04/25/2018 Status: F Source: [facility] 3:15 AM HEALTH SYSTEM REPOSITORY TYPE CODE TESTS RESULT OUT OF REFERENCE UNITS RANGE LAB MAG(LOINC) 1.6-2.6 mg/dL Magnesium Blood 1.8 Performed By: #### MAG #### [place] [address] PHOSPHORUS BLOOD Collected: 04/25/2018 Status: F Source: [facility] 3:15 AM HEALTH SYSTEM REPOSITORY TYPE CODE TESTS RESULT OUT OF REFERENCE UNITS RANGE LAB PHOS(LOINC 2.5-4.9 mg/dL ) Phosphorus Blood 3.0 Performed By: #### PHOS #### [place] [address] MDRD GFR Collected: 04/25/2018 Status: F Source: [facility] 3:15 AM HEALTH SYSTEM REPOSITORY TYPE CODE TESTS RESULT OUT OF RANGE REFERENCE UNITS LAB GFRFN(LOINC >60mL/min/1.73m ) 2 eGFR >60 Result Comment: If the patient is , multiply the result by 1.210. Performed By: #### GFR #### [place] [address] IONIZED CALCIUM Collected: 04/25/2018 Status: F Source: [facility] 3:13 AM HEALTH SYSTEM REPOSITORY TYPE CODE TESTS RESULT OUT OF REFERENCE UNITS RANGE LAB CAION(LOINC 4.43-4.93 mg/dL ) Ionized 4.91 Calcium LAB PHCAI(LOINC 7.320-7.420 ) pH 7.386 LAB CAPH(LOINC) 4.36-4.73 mg/dL High Ionized 4.88 Ca,PH7.4 Performed By: #### IONCA #### [place] [address] SOCIAL WORK Observed: 04/24/2018 Status: COMPLETED Source: [place] 12:23 PM CLINIC OTHER CAMPUS REPOSITORY HNO ID: [id number] Author: Jennifer Hensley (Sw) Service: Social Work Author Type: Data Analytics Specialist Type: Social Work Filed: 04/24/2018 12:30 PM Note Text: SOCIAL WORK PROGRESS NOTE SERVICE DATE: 04/24/2018 SERVICE TIME: 1145 LOS: 2 days Pt requesting to see sw. Joni paged by RN as pt requesting to speak to social work faculty member. Met with pt in room and sitter present. Pt requesting social work faculty member to call tunnel kiln operator to obtain number for Reyna Walsh. Sw explained that tunnel kiln operator would be unable to provide number for someone outside of the hospital. Phone call made to sister Trev Carmen [phone]. Per previous chart notes, sister has been working to obtain guardianship for pt. Trev confirms that she is continuing to work with an state's attorney regarding the guardianship. Pt is not and [...] 24, 2018 TIME: 12:23 PM PAGER/CONTACT #: [phone] CONSULT PROG Observed: 04/24/2018 Status: COMPLETED Source: [place] 11:43 AM [facility] OTHER [place] REPOSITORY HNO ID: [id number] Author: Bert Bain Service: Neurosurgery Author Type: Physician Type: Consult Progress Note Filed: 04/24/2018 11:45 AM Note Text: Neurosurgery : Pt has been stable. No CABRERA. No symptoms or signs related to the small intracranial bleed. Will sign off at this time. Please call me with any questions or concerns. Bert Bain MD [phone] NURSING PROG Observed: 04/24/2018 Status: COMPLETED Source: [place] 10:51 AM [facility] REPOSITORY HNO ID: [id number] Author: Hamilton (Rn) ANGELINA Vale Service: (none) Author Type: Registered Nurse Type: Nursing Progress Note Filed: 04/24/2018 5:37 PM Note Text: Nursing Progress Note Patient Name: Jeffrey Cullen Patient Location: [place] [address] [address] Daily Note: Spoke to Dr. Solano regarding pt blood cultures from [facility] 04/[address] Solano [...] THERAPY NT Observed: 04/24/2018 Status: COMPLETED Source: [place] 10:38 AM [facility] REPOSITORY HNO ID: [id number] Author: Yajaira (Otr/LKristin Choudhary Service: Occupational Therapy Author Type: Occupational Therapist Type: Therapy (PT/OT/Speech/Resp) Filed: 04/24/2018 11:09 AM Note Text: Occupational Therapy Evaluation SERVICE DATE: 04/24/2018 SERVICE TIME: 1000 to 1015 ROOM: [place] [address] Recommended Discharge Disposition: Subacute/SNF Justification For Post [...] Weakness (generalized) Interventions Provided: Evaluation $ Evaluation-Moderate (29637) Billed Units: 1 unit Total Treatment Time [...] 67 year old white male. Presented to [facility] from his assisted after a fall from his wheelchair, struck his face and had a laceration to the left forehead that was repaired at [facility]. CT head showed SDH, so he was transferred to [facility]. Patient was recently discharged to his assisted from [facility]. S/p Trach/PEG. Recent h/o CABG in 02/12, complicated with resp failure, encephalopathy, and E. Coli/Klebsiella PNA. Afib on Eliquis. Given Feba at [facility]. Baseline encephalopathy, oriented to person and place, [...] Lives With: Facility Care (Recent transfer from [facility] to SNF) Assistance Available: 24 Hour Prior Functional Level: Required Assistance Assistance Required With: Transfers;Ambulation;Self Care;Meals;Safety;Wheelchair Mobility (and all IADL provided by facility) Prior Functional Level Comments: Recent transfer from [facility] to skilled facility. Receiving assist with transfers [...] April 24, 2018 TIME: 10:38 AM PAGER: [phone] THERAPY NT Observed: 04/24/2018 Status: COMPLETED Source: [place] 10:33 AM CLINIC OTHER CAMPUS REPOSITORY HNO ID: [id number] Author: Ursula MoodyPtKristin Goyal Service: Physical Therapy Author Type: Physical Therapist Type: Therapy (PT/OT/Speech/Resp) Filed: 04/24/2018 10:36 AM Note Text: Physical Therapy Evaluation SERVICE DATE: 04/24/2018 SERVICE TIME: 949 to 1004 ROOM: [place] [address] Recommended Discharge Disposition: Subacute/SNF Justification For Post [...] Weakness (generalized) Interventions Provided: Evaluation $ Evaluation-Moderate (66912) Billed Units: 1 unit Total Treatment Time (minutes): 15 FUNCTIONAL G CODE: PT 6 Clicks Score: 13 (04/24/1850) Mobility: Walking and Moving Around Current Status (G8978): CL (04/24/1850) Mobility: Walking and Moving Around Goal Status (G8979): CK (04/24/1850) Based on clinical assessment and the score [...] 24, 2018 TIME: 10:33 AM PAGER/CONTACT #: [phone] CONSULT Observed: 04/24/2018 Status: COMPLETED Source: [place] 8:49 AM CLINIC OTHER CAMPUS REPOSITORY O ID: [id number] Author: Agnieszka Hawkins Service: Hospital Medicine Author Type: Physician Type: Consults Filed: 04/24/2018 9:14 AM Note Text: DEPARTMENT OF HOSPITAL MEDICINE INITIAL CONSULT SERVICE DATE: 04/24/2018 SERVICE TIME: 8:49 AM Primary Care Physician: Julio César Lara MD NIGHT AND WEEKEND COVERAGE: After 7pm, please call cross cover pager #[phone] REASON FOR CONSULT: medical management REQUESTING PHYSICIAN: [...] Airways Line Peripheral 04/22/18 0855 Admission to Hospital Short Right Antecubital 16 Gauge 1 day Peripheral 04/22/18 0905 Admission to Hospital Short Right Forearm 18 Gauge 1 day [...] THERAPY NT Observed: 04/24/2018 Status: COMPLETED Source: [place] 7:12 AM [facility] REPOSITORY HNO ID: [id number] Author: Gregg (Ccc-Apparatus Engineering Technologist) PEARL Rand/MARISSA Service: Speech/Swallow Author Type: Speech Language Pathologist Type: Therapy (PT/OT/Speech/Resp) Filed: 04/24/2018 7:12 AM Note Text: SPEECH THERAPY MISSED VISIT SERVICE DATE: 04/24/2018 SERVICE TIME: 709 to 709 ROOM: [place] [address] Attempted MBSS Evaluation. Patient not seen due to Other: See Comment. Aware of Modified Barium Swallow Study order. Will complete as scheduled. SIGNATURE: Gregg Rand CCC-BACKUP ADMINISTRATIVE COORDINATOR PATIENT NAME: Jeffrey Cullen DATE: April 24, 2018 TIME: 7:12 AM PAGER/CONTACT #: [phone] PROGRESS Observed: 04/24/2018 Status: COMPLETED Source: [place] 6:24 AM [facility] REPOSITORY HNO ID: [id number] Author: Lynne Christy Service: General Surgery Author Type: Physician Type: Progress Notes Filed: 04/24/2018 1:08 PM Note Text: Trauma Service Pager: For questions or concerns Mon-Fri 6a-5p please page [phone]. After 5pm and on Weekends and Holidays, please page [phone] if in ICU or [phone] if on RNF. Trauma Surgery Progress Note [...] kg/m? O2 Therapy: Trach Collar IANDO: Date 04/23/18 07 - 04/24/18 0659 04/24/18 07 - 04/25/18 0659 Shift 5314-1254 7241-9205 6998-1386 24 Hour Total 6769-7288 3592-2930 5781-8566 24 Hour Total I N T A K E PO 75 190 265 Tube Feed Intake (GI Feed/Drain 04/23/181850 Admission to Hospital Gastrostomy-Jejunostomy (G-J) Abdomen) 75 190 265 IV 2638 819 1579 D5 NS 1751 030 4915 Levetiracetam IV 100 100 Irrigants 90 30 [...] Diagnosis Date Noted - SDH (subdural hematoma) ([facility]) 04/22/2018 - Fall from wheelchair 04/22/2018 - CAD (coronary artery disease) - Chronic respiratory failure ([facility]) - Weakness 03/09/2018 - Encephalopathy 03/04/2018 Overview Note: - Malnutrition of moderate degree ([facility]) 02/20/2018 67 year old male with h/o [...] IONIZED CALCIUM Collected: 04/24/2018 Status: F Source: [facility] 2:43 AM HEALTH SYSTEM REPOSITORY TYPE CODE TESTS RESULT OUT OF REFERENCE UNITS RANGE LAB CAION(LOINC 4.43-4.93 mg/dL ) Ionized 4.75 Calcium LAB PHCAI(LOINC 7.320-7.420 ) pH 7.387 LAB CAPH(LOINC) 4.36-4.73 mg/dL Ionized 4.72 Ca,PH7.4 Performed By: #### IONCA #### [facility] [address] [place] [address] HEMOGRAM/DIFF Collected: 04/24/2018 Status: F Source: [facility] 2:43 AM HEALTH SYSTEM REPOSITORY TYPE CODE [...] 1.62 LAB MONON(LOIN 0.30-0.82 thou/cmm C) Abs. [place] 0.60 LAB EOSN(LOINC 0.04-0.54 thou/cmm ) Abs. Eosin 0.43 LAB BASON(LOIN 0.01-0.08 thou/cmm C) Abs. Baso 0.04 Performed By: #### CBCD1 #### [facility] [address] [place] [address] BASIC PANEL Collected: 04/24/2018 Status: F Source: [facility] 2:[address] [place] [address] SYSTEM REPOSITORY TYPE CODE TESTS RESULT OUT [...] Gap 7 Performed By: #### P8 #### [place] [address] MAGNESIUM BLOOD Collected: 04/24/2018 Status: F Source: [facility] 2:[facility] REPOSITORY TYPE CODE TESTS RESULT OUT OF REFERENCE UNITS RANGE LAB MAG(LOINC) 1.6-2.6 mg/dL Magnesium Blood 1.8 Performed By: #### MAG #### [place] [address] PHOSPHORUS BLOOD Collected: 04/24/2018 Status: F Source: [facility] 2[facility] REPOSITORY TYPE CODE TESTS RESULT OUT OF REFERENCE UNITS RANGE LAB PHOS(LOINC 2.5-4.9 mg/dL ) Phosphorus Blood 2.8 Performed By: #### PHOS #### [facility] [address] [place] [id number] MDRD GFR Collected: 04/24/2018 Status: F Source: [facility] 2:43 AM HEALTH SYSTEM REPOSITORY TYPE CODE TESTS RESULT OUT OF RANGE REFERENCE UNITS LAB GFRFN(LOINC >60mL/min/1.73m ) 2 eGFR >60 Result Comment: If the patient is , multiply the result by 1.210. Performed By: #### GFR #### [facility] [address] [place] [id number] NURSING PROG Observed: 04/24/2018 Status: COMPLETED Source: [place] 12:37 AM [facility] REPOSITORY HNO ID: [id number] Author: Lisa MoodyRn) ANGELINA Wesley Service: Nursing Author Type: Registered Nurse Type: Nursing Progress Note Filed: 04/24/2018 12:38 AM Note Text: Nursing Progress Note Patient Name: Jeffrey Cullen Patient Location: [place] [address] [address] Spoke with pt's sister/CALLIE Palma regarding bedside caregiver placement. She said she had gotten a call like this last night too. Said she is okay with him having a sitter. Will continue to monitor pt. This note was completed by: Lisa Wesley RN NURSING PROG Observed: 04/23/2018 Status: COMPLETED Source: [place] 11:02 PM [facility] REPOSITORY HNO ID: [id number] Author: Lisa MoodyRn) ANGELINA Wesley Service: Nursing Author Type: Registered Nurse Type: Nursing Progress Note Filed: 04/23/2018 11:04 PM Note Text: Nursing Progress Note Patient Name: Jeffrey Cullen Patient Location: [place] [address] [address] Spoke with Dr. Watson about pt's extreme agitation. Requested something to help with the agitation as this RN gave the pt his haldol at [address] Watson said he will take a look at what could be given to the pt. Will continue to monitor. This note was completed by: Lisa Wesley RN THERAPY NT Observed: 04/23/2018 Status: COMPLETED Source: [place] 10:03 AM CLINIC OTHER CAMPUS REPOSITORY HNO ID: [id number] Author: Gregg (Ccc-Apparatus Engineering Technologist) PEARL Rand/BACKUP ADMINISTRATIVE COORDINATOR Service: Speech/Swallow Author Type: Speech Language Pathologist Type: Therapy (PT/OT/Speech/Resp) Filed: 04/23/2018 10:16 AM Note Text: Speech Therapy Clinical Swallow Evaluation Speaking Valve Evaluation Cognitive Treatment SERVICE DATE: 04/23/2018 SERVICE TIME: 904 to 999 ROOM: [id number] Nursing Recommendations: See swallow guide posted in [...] NPO until test completed - Completed Passy Headrick Speaking Valve evaluation - Yesenia #6, cuffed, deflated, on trach mask 10L - Initial coughing noted with valve - Vocal intensity improves significantly with valve as well as breath support for speech - Voice is hoarse - Recommend patient to use Passy Headrick Speaking Valve t/o day with staff supervision - ST to follow to improve tolerance of Passy Headrick Speaking Valve and improve voicing - Cognitive [...] oropharyngeal phase Interventions Provided: Clinical Swallow Evaluation (12224);Fit Prosthetic Voice Device (95504);Speech Therapy (92246) $ Clinical Swallow Evaluation (42555) Billed Units: 1 unit $ Fit Prosthetic Voice Device (97474) Billed Units: 1 unit $ Speech Therapy (64506) Billed Units: 1 unit Skilled Interventions: Educated [...] for this therapy evaluation/treatment. SIGNATURE: Gregg Rand CCC-BACKUP ADMINISTRATIVE COORDINATOR PATIENT NAME: Jeffrey Cullen DATE: April 23, 2018 TIME: 10:03 AM PAGER: [phone] NUTRITION Observed: 04/23/2018 Status: COMPLETED Source: [place] 9:58 AM CLINIC OTHER CAMPUS REPOSITORY HNO ID: [id number] Author: Sandra Almaguer RD Service: Nutrition Therapy [...] 67 year old white male. Presented to [facility] from his assisted after a fall from his wheelchair, struck his face and had a laceration to the left forehead that was repaired at [facility]. CT head showed SDH, so he was transferred to [facility]. Patient was recently discharged to his assisted from [facility]. S/p Trach/PEG. Recent h/o CABG in 02/12, complicated with resp failure, encephalopathy, and E. Coli/Klebsiella PNA. Afib on Eliquis. Given Feba at [facility]. Baseline encephalopathy, oriented to person and place, [...] nondistended and bowel sounds are normal, per block breaker Is the patient having any pain that [...] lb) 12/04/07 : 100.2 kg (221 lb) [place] Body Weight: 77.6kg Dosing Weight: 104.3 kg Resting Metabolic Rate: 1855 Estimated kilocalorie needs: 8015-1176 kilocalories determined by 25-30 kcal/kg ideal body weight Estimated protein needs: 93-124 grams determined by 1.2-1.6 g/kg [place] weight Estimated fluid needs: 4752-8276 milliliters based on 1 mL per kcal [...] RD, AM[place] PATIENT NAME: Jeffrey Cullen DATE: April 23, 2018 TIME: 9:58 AM PAGER: [phone] PROGRESS Observed: 04/23/2018 Status: COMPLETED Source: [place] 8:37 AM CLINIC OTHER CAMPUS REPOSITORY HNO ID: [id number] Author: Lynne Christy Service: ADT-SICU Author Type: [...] (97 ?F), Max:37.3 ?C (99.1 ?F) Date 04/22/18699 - 04/23/18 0659 04/23/18699 - 04/24/18 0659 Shift 8552-1480 6901-8980 3877-4972 24 Hour Total 1682-7578 1316-6926 4001-9370 24 Hour Total I N T A [...] tests reviewed for today's visit: Recent Labs 04/22/18521 PH 7.466* PCO2 31.5* PO2 57.4* BE -0.2 HCO3 22.5 O2HB 86.3* COHB 1.6 MHGB 0.4 Recent Labs 04/22/18 0855 04/22/1822 04/22/18 0502 CREAT -- -- 0.84 BUN [...] (Active) Peripheral 04/22/18 0907 Admission to Hospital Short Left Antecubital 18 Gauge (Active) Airway Tracheostomy (Active) SBT: NA SIGNATURE: Galdino Watson MD PATIENT NAME: Jeffrey Cullen DATE: April 23, 2018 TIME: 8:37 AM PAGER: [phone] SICU Service Pager: For questions or concerns Mon-Fri 6a-5p please page [phone]. After 5pm and on Weekends and Holidays, please page [phone]. Attending Note Repeat CT head stable. Ok to go back to assisted.I evaluated the patient and personally participated in the hernandez components. I agree with the resident's findings and plan as documented and have discussed the case and management of the patient's care with the resident. Signature: Lynne Christy MD Date: 04/23/2018 Time: 11:04 AM PROGRESS Observed: 04/23/2018 Status: COMPLETED Source: [place] 6:49 AM CLINIC OTHER CAMPUS REPOSITORY HNO ID: [id number] Author: Jaclyn Staley Service: General Surgery Author [...] kg/m? O2 Therapy: Trach Collar IANDO: Date 04/22/18699 - 04/23/18 0659 04/23/18699 - 04/24/18 0659 Shift 7619-9641 7169-9964 0448-2350 24 Hour Total 5386-5469 7738-5110 8183-3411 24 Hour Total I N T A [...] Diagnosis Date Noted - SDH (subdural hematoma) ([facility]) 04/22/2018 - Fall from wheelchair 04/22/2018 - CAD (coronary artery disease) - Chronic respiratory failure ([facility]) - Weakness 03/09/2018 - Encephalopathy 03/04/2018 Overview [...] April 23, 2018 TIME: 6:49 AM Pager: [phone] Attending Note No change in status Stable head CT Start TF March send back to assisted I evaluated the patient and personally participated in the hernandez components. I agree with the resident's findings and plan as documented and have discussed the case and management of the patient's care with the resident. Signature: Jaclyn Staley MD Date: 04/23/2018 Time: 11:[address] HEAD W/O CONTRAST Observed: 04/23/2018 Status: F Source: [facility] 6:08 AM HEALTH SYSTEM REPOSITORY Performed at [facility] APPROVED BY: Jose Myles MD BRAIN CT [...] effect. CONSULT Observed: 04/22/2018 Status: COMPLETED Source: [place] 10:21 PM CLINIC OTHER CAMPUS REPOSITORY HNO ID: [id number] Author: Bert Bain Service: Neurosurgery Author Type: Physician Type: Consults Filed: 04/23/2018 11:09 AM Note Text: CONSULT NEUROSURGERY ARRIVAL DATE: 04/22/2018 ARRIVAL TIME: 9:12 AM CATEGORY: Level 2 INJURY DATE: 04/22/2018 INJURY TIME: 0500 Subjective This is a 67 year old white male. Presented to [facility] from his assisted after a fall from his wheelchair, struck his face and had a laceration to the left forehead that was repaired at [facility]. CT head showed SDH, so he was transferred to [facility]. Patient was recently discharged to his assisted from [facility]. S/p Trach/PEG. Recent h/o CABG in 02/12, complicated with resp failure, encephalopathy, and E. Coli/Klebsiella PNA. Afib on Eliquis. Given Feba at [facility]. Baseline encephalopathy, oriented to person and place, [...] Blankets PROCEDURES: C-collar placed on arrival to [facility] SECONDARY SURVEY VITALS: BP 121/63 Pulse 60 [...] noted. Scalp contusion, left paramedian forehead/frontal scalp. [place] ocular lenses are not seen, consistent with [...] TROPONIN I Collected: 04/22/2018 Status: F Source: [facility] 3:45 PM HEALTH SYSTEM REPOSITORY TYPE CODE TESTS RESULT OUT OF REFERENCE UNITS RANGE LAB TROP(LOINC) 0.015-0.045 ng/ml High Troponin I 0.064 Performed By: #### TROP #### [place] [address] Observed: 04/22/2018 Status: F Source: [facility] MRSA SCREEN 3:45 PM HEALTH SYSTEM REPOSITORY Test performed at [facility] No MRSA detected. Performed By: #### MRSA #### [facility] [address] [place], [place] [address] CONSULT Observed: 04/22/2018 Status: COMPLETED Source: [place] 2:46 PM CLINIC OTHER CAMPUS REPOSITORY HNO ID: [id number] Author: Lynne Christy Service: ADT-SICU Author Type: Physician Type: Consults Filed: 04/23/2018 12:51 AM Note Text: CONSULT SICU ARRIVAL DATE: 04/22/2018 ARRIVAL TIME: 9:12 AM CATEGORY: Level 2 INJURY DATE: 04/22/2018 INJURY TIME: 0500 Subjective This is a 67 year old white male. Presented to [facility] from his assisted after a fall from his wheelchair, struck his face and had a laceration to the left forehead that was repaired at [facility]. CT head showed SDH, so he was transferred to [facility]. Patient was recently discharged to his assisted from [facility]. S/p Trach/PEG. Recent h/o CABG in 02/12, complicated with resp failure, encephalopathy, and E. Coli/Klebsiella PNA. Afib on Eliquis. Given Feba at [facility]. Baseline encephalopathy, oriented to person and place, [...] Blankets PROCEDURES: C-collar placed on arrival to [facility] SECONDARY SURVEY VITALS: BP 121/63 Pulse 60 [...] noted. Scalp contusion, left paramedian forehead/frontal scalp. [place] ocular lenses are not seen, consistent with [...] please page [phone] if in ICU or [phone] if on RNF. Discussed with Dr. Pricila [...] THERAPY NT Observed: 04/22/2018 Status: COMPLETED Source: [place] 2:16 PM CLINIC OTHER CAMPUS REPOSITORY HNO ID: [id number] Author: Gregg (Ccc-Apparatus Engineering Technologist) [place] CCC/BACKUP ADMINISTRATIVE COORDINATOR Service: Speech/Swallow Author Type: Speech Language Pathologist Type: Therapy (PT/OT/Speech/Resp) Filed: 04/22/2018 2:34 PM Note Text: Speech Therapy Speech Evaluation SERVICE DATE: 04/22/2018 SERVICE TIME: 1340 to 1410 ROOM: [place] [address] Nursing Recommendations: Encourage patient to speak slow and clear BACKUP ADMINISTRATIVE COORDINATOR Recommendations: Consider Passy Jason Speaking Valve Consider Bedside Swallow Evaluation Results and Recommendations Discussed With: Patient;Nurse;Physician Recommended Discharge Disposition: [facility] IMPRESSION: Patient demonstrates moderate cognitive deficits which is negatively impacting the patient's ability to effectively communicate basic ADL medical and social wants/needs with familiar and unfamiliar communication partners. Rehabilitation Precautions: Cognitive Linguistics Deficits;NPO NPO Precautions: PEG ASSESSMENT: - Patient in bed upon arrival, alert and able to participate in therapy - Has PEG, has trach #6 Shiley, cuffed, deflated - Currently no Passy Headrick Speaking Valve - Assessed speech, language, and cognitive skills: - Speech: unintelligible at times - Able to speak over trach but voice is breathy with reduced vocal intensity - Patient reports never using a speaking valve but has Passy Headrick Speaking Valve instructions on balloon outside trach - Language: receptive and expressive skills: WFL - Cognition: problem solving, memory, reasoning, and attention: moderate deficits - +perseveration noted - Decreased safety awareness - Reading/writing: To be assessed - Insight: reduced - Pragmatics: reduced - Patient with moderate cognitive deficits and decrease ability to community - Consider Passy Headrick Speaking Valve - Patient has had PEG since previous admit; has not trialed any PO at [facility] - Spoke with Trauma, to be ordered [...] symbolic dysfunctions Interventions Provided: Speech Language Eval (41171) $ Speech Language Eval (31847) Billed Units: 1 unit Total Treatment Time [...] old male presenting as trauma transfer from [facility]. Patient reportedly had a fall at [facility] in the night and was found to [...] for this therapy evaluation/treatment. SIGNATURE: Gregg Rand CCC-BACKUP ADMINISTRATIVE COORDINATOR PATIENT NAME: Jeffrey Cullen DATE: April 22, 2018 TIME: 2:16 PM PAGER: [phone] PROGRESS Observed: 04/22/2018 Status: COMPLETED Source: [place] 12:01 PM [facility] REPOSITORY HNO ID: [id number] Author: Lamonte Wharton Service: Trauma Author Type: Resident Type: Progress Notes Filed: 04/22/2018 12:02 PM Note Text: I spoke to patient's Sister and Trev LEDESMA on the phone and she is aware of his clinical condition and plan of care. Lamonte Wharton MD 04/22/2018 12:02 PM EKG Observed: 04/22/2018 Status: F Source: [place] 10:54 AM [facility] REPOSITORY NAME : JEFFREY CULLEN PID : [id number] : 1950 Gender : Male Race : [...] ms QTC Calculation(Bezet) : 465 ms P [place] : 47 degrees R [place] : -1 degrees T [place] : 9 degrees Test Reason : Location : 52 : [facility]0A 5212 Overread By : MD HERNANDEZ G Editted By : MD HERNANDEZ G Referred By : , Acquired by : Frances Medrano ED NOTE Observed: 04/22/2018 Status: COMPLETED Source: [place] 10:32 AM [facility] REPOSITORY HNO ID: [id number] Author: Karen MoodyRnKristin Felder RN Service: Emergency Medicine Author Type: Registered Nurse Type: ED Notes Filed: 04/22/2018 10:34 AM Note Text: Pt repositioned and pulled up in bed multiple times. HOB elevated. Pt remains AANDOx3 and moving all extremities. Pt does appear restless and asking repeatedly for water. Mouth cleansed with oral sponges. ED PROV NOTE Observed: 04/22/2018 Status: COMPLETED Source: [place] 9:50 AM [facility] REPOSITORY HNO ID: [id number] Author: Bryan Velasquez MD Service: Emergency Medicine Author Type: Physician Type: ED Provider Notes Filed: 04/23/2018 9:56 AM Note Text: ED Provider Note Patient Name: Jeffrey Cullen SERVICE DATE: 04/22/18 History No chief complaint on file. 67-year-old male was a trauma transfer after having a fall at [facility]. According to EMS the patient fell forward [...] 7.16 (*) 1.78 - 5.38 thou/cmm Abs. [place] 1.14 (*) 0.30 - 0.82 thou/cmm All other components within normal limits [facility] TROPONIN I ([place] [facility]) - Abnormal; Notable for the following: [...] and evaluation. Patient was placed in a Tangent collar. Patient was transferred to the NSICU [...] PROV NOTE Observed: 04/22/2018 Status: COMPLETED Source: [place] 9:48 AM [facility] OTHER CAMPUS REPOSITORY O ID: [id number] Author: Bryan Velasquez MD Service: Emergency Medicine [...] old male presenting as trauma transfer from [facility]. 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 The patient received Consultation by trauma and neurosurgery during the time that critical care was provided. Critical care time excludes separately billed procedures. MD Bryan Cazares MD 04/22/[address] CHEST WITH Observed: 04/22/2018 Status: F Source: [place] GENERAL CONTRAST 9:26 AM HEALTH SYSTEM REPOSITORY Performed at [facility] APPROVED BY: Ismael Marin MD EXAMINATION: CHEST [...] AND PELVIS Observed: 04/22/2018 Status: F Source: [facility] [employer] WITH CONTRAST 9:26 AM HEALTH SYSTEM REPOSITORY Performed at [facility] APPROVED BY: Ismael Marin MD Exam Title: [...] SPINE W/O Observed: 04/22/2018 Status: F Source: [place] GENERAL CONTRAST 9:26 AM HEALTH SYSTEM REPOSITORY Performed at [facility] APPROVED BY: Jose Myles MD CERVICAL SPINE [...] ED NOTE Observed: 04/22/2018 Status: COMPLETED Source: [place] 9:20 AM [facility] REPOSITORY HNO ID: [id number] Author: Karen MoodyRn) ANGELINA Felder Service: Emergency Medicine Author Type: Registered Nurse Type: ED Notes Filed: 04/22/2018 9:21 AM Note Text: Pt in CT scanner. Tolerating well. HISTORY PHYSICAL Observed: 04/22/2018 Status: COMPLETED Source: [place] 9:12 AM [facility] REPOSITORY HNO ID: [id number] Author: Jaclyn Staley Service: Trauma Author Type: Physician Type: HANDP Filed: 04/23/2018 11:51 AM Note Text: TRAUMA HANDP [facility] ARRIVAL DATE: 04/22/2018 ARRIVAL TIME: 9:12 AM CATEGORY: Level 2 INJURY DATE: 04/22/2018 INJURY TIME: 0500 Subjective This is a 67 year old white male. Presented to [facility] from his assisted after a fall from his wheelchair, struck his face and had a laceration to the left forehead that was repaired at [facility]. CT head showed SDH, so he was transferred to [facility]. Patient was recently discharged to his assisted from [facility]. S/p Trach/PEG. Recent h/o CABG in 02/12, complicated with resp failure, encephalopathy, and E. Coli/Klebsiella PNA. Afib on Eliquis. Given Feba at [facility]. Baseline encephalopathy, oriented to person and place, [...] Blankets PROCEDURES: C-collar placed on arrival to [facility] SECONDARY SURVEY VITALS: BP 121/63 Pulse 60 [...] noted. Scalp contusion, left paramedian forehead/frontal scalp. [place] ocular lenses are not seen, consistent with [...] Pain control Neuro checks SBP < 160 Nilda White q6H Trauma Service Pager: For questions or concerns Mon-Fri 6a-5p please page [phone]. After 5pm and on Weekends and Holidays, please page [phone] if in ICU or [phone] if on RNF. ED DISPOSITION: To ICU [...] ED NOTE Observed: 04/22/2018 Status: COMPLETED Source: [place] 9:08 AM CLINIC OTHER CAMPUS REPOSITORY HNO ID: [id number] Author: Karen (Rn) ANGELINA Felder Service: Emergency Medicine Author Type: Registered Nurse Type: ED Notes Filed: 04/22/2018 9:15 AM Note Text: Patient transported to CT with RN and trauma team PELVIS 1 OR 2 VIEWS Observed: 04/22/2018 Status: F Source: [facility] 9:07 AM HEALTH SYSTEM REPOSITORY Performed at [facility] APPROVED BY: ELAINE SWEENEY MD STUDY: PELVIS [...] ED NOTE Observed: 04/22/2018 Status: COMPLETED Source: [place] 9:04 AM [facility] OTHER CAMPUS REPOSITORY HNO ID: [id number] Author: Karen MoodyRn) ANGELINA Felder Service: Emergency Medicine Author Type: Registered Nurse Type: ED Notes Filed: 04/22/2018 9:04 AM Note Text: c-collar placed ED NOTE Observed: 04/22/2018 Status: COMPLETED Source: [place] 9:01 AM [facility] REPOSITORY HNO ID: [id number] Author: Karen MoodyRn) ANGELINA Felder Service: Emergency Medicine Author Type: Registered Nurse Type: ED Notes Filed: 04/22/2018 9:01 AM Note Text: Blood bank, ct, Or called HEMOGRAM/DIFF Collected: 04/22/2018 Status: F Source: [facility] 8:55 AM HEALTH SYSTEM REPOSITORY TYPE CODE [...] LAB MONON(LOIN 0.30-0.82 thou/cmm C) Abs. High [place] 1.14 LAB EOSN(LOINC 0.04-0.54 thou/cmm ) Abs. Eosin 0.23 LAB BASON(LOIN 0.01-0.08 thou/cmm C) Abs. Baso 0.06 Performed By: #### CBCD1 #### [place] [address] UR/SERUM DRUG SCREEN Collected: 04/22/2018 Status: F Source: [facility] 8:55 AM HEALTH SYSTEM REPOSITORY TYPE CODE TESTS RESULT OUT OF REFERENCE UNITS RANGE LAB ACTM(LOINC 10.0-30.0 mg/L ) Serum Low Acetaminophen < 2.0 LAB SALI(LOINC 2.8-20.0 mg/dL ) Serum Salicylate Low < 1.7 LAB ALCO2(LOIN mg/dl C) Serum Alcohol < 3 Performed By: #### DRUG3 #### [place] [address] ECU TROPONIN I Collected: 04/22/2018 Status: F Source: [facility] 8:55 AM HEALTH SYSTEM REPOSITORY TYPE CODE TESTS RESULT OUT OF REFERENCE UNITS RANGE LAB ERTRP(LOINC 0.015-0.045 ng/ml ) High ECU Troponin I 0.141 Performed By: #### ERTRP #### [place] [address] TYPE AND SCREEN Collected: 04/22/2018 Status: F Source: [facility] 8:55 AM HEALTH SYSTEM REPOSITORY TYPE CODE TESTS RESULT OUT OF REFERENCE UNITS RANGE LAB ABO(LOINC) O ABO Group LAB CASE LOADER OPERATOR(LOINC ) RH Type Positive LAB ABSCR(LOIN C) Antibody NEGATIVE Screen LAB BBCMT(LOIN C) Comment See Below Result Comment: Screen &/or Xmatch expires in 3 days at 12 midnight. Redraw patient at that time. Performed By: #### T&S #### [facility] [address] [place], [place] [address] ED NOTE Observed: 04/22/2018 Status: COMPLETED Source: [place] 8:51 AM CLINIC OTHER CAMPUS REPOSITORY HNO ID: [id number] Author: Arcadio (Medic) Briana Deutsch Service: (none) Author Type: Transportation Logistics Internship and Gantry Crane Operator Type: ED Notes Filed: 04/22/2018 8:51 AM Note Text: Bed: ED-04 Expected date: Expected time: Means of arrival: Comments: [facility] ED NOTE Observed: 04/22/2018 Status: COMPLETED Source: [place] 7:50 AM [facility] OTHER CAMPUS REPOSITORY HNO ID: [id number] Author: Moris (Rn) ANGELNIA Trevizo Service: (none) Author Type: Registered Nurse Type: ED Notes Filed: 04/22/2018 7:51 AM Note Text: Report given to [facility]. Instruction given on Feiba infusion. Pt transported out of our facility wo incident. CT BRAIN WO IVCON Observed: 04/22/2018 Status: F Source: [place] 6:03 AM [facility] OTHER CAMPUS REPOSITORY * * *Final Report* * * DATE OF EXAM: Apr 22 2018 6:03AM [facility] 0504 - CT BRAIN WO IVCON / [...] noted. Scalp contusion, left paramedian forehead/frontal scalp. [place] ocular lenses are not seen, consistent with [...] 04/22/2018 at 0621 hours and readback occurred. Electromechanisms Design Drafter: SHILOH Transcribe Date/Time: Apr 22 2018 6:18A Dictated by : TONIA DASH MD This examination was interpreted and the report reviewed and electronically signed by: TONIA DASH MD on Apr 22 2018 6:29AM EST [id number] Observed: 04/22/2018 Status: F Source: [place] BLOOD CULTURE 5:46 AM [facility] OTHER [place] REPOSITORY Culture Result - No growth 5 days Performed By: #### BLCUL #### [facility] [address] [place] [id number] ED NOTE Observed: 04/22/2018 Status: COMPLETED Source: [place] 5:45 AM [facility] OTHER [place] REPOSITORY HNO ID: [id number] Author: Moris (Rn) ANGELINA Trevizo Service: (none) Author Type: Registered Nurse Type: ED Notes Filed: 04/22/2018 5:45 AM Note Text: 2nd set of blood cultures drawn and sent. XR CHEST 1V FRONTAL Observed: 04/22/2018 Status: F Source: [facility] 5:27 AM [facility] OTHER CAMPUS REPOSITORY * * *Final Report* [...] edema. Cardiomediastinal silhouette: Mildly enlarged. Other: . Electromechanisms Design Drafter: PSCB Transcribe Date/Time: Apr 22 2018 6:02A Dictated by : JIMMY SCHMIDT MD This examination was interpreted and the report reviewed and electronically signed by: JIMMY SCHMIDT MD on Apr 22 2018 6:04AM EST [id number] URINALYSIS Collected: 04/22/2018 Status: F Source: [facility] 5:15 AM CLINIC OTHER CAMPUS REPOSITORY TYPE CODE TESTS RESULT OUT OF RANGE REFERENCE UNITS LAB UCOL Yellow Color Yellow LAB [facility] Clear Clarity Clear LAB UGLUC Negative mg/dL Glucose, Urine Negative LAB UBIL Negative Bilirubin, Urine Negative LAB UKET Negative Ketones, Abnormal Urine Trace Alert LAB USPG 1.001-1.029 Specific [place], Ur 1.010 LAB UHGB Negative Hemoglobin/Blood, Negative Ur LAB UPH 5.0-8.0 pH 7.5 LAB UPROT Negative mg/dL Protein, Abnormal Urine 30 Alert LAB UUROB 0.2-1.0 High Urobilinogen >7.9 LAB UNITR Negative Nitrites Negative LAB ULKEST Negative Leukest Negative Performed By: #### UA, UAMIC #### [facility] [address] [facility] [phone] URINE MICROSCOPIC Collected: 04/22/2018 Status: F Source: [facility] (FOR LAB USE ONLY) 5:15 AM [facility] OTHER CAMPUS REPOSITORY TYPE CODE TESTS RESULT OUT OF RANGE REFERENCE UNITS LAB UWBC 0-5 /HPF WBC 0-5 LAB URBC 0-3 /HPF RBC 0-3 LAB UCAST 0 /LPF Abnormal Alert Cast SEE COMMENT Result Comment: 1-3 Hyaline Casts LAB UCRYS 0 /HPF Abnormal Alert Crystals SEE COMMENT Result Comment: Few Amorphous Performed By: #### UA, UAMIC #### [facility] [address] [facility] [phone] Observed: 04/22/2018 Status: F Source: [facility] URINE CULTURE 5:15 AM [facility] OTHER [place] REPOSITORY Culture Result - No growth (<100 CFU/ml) Performed By: #### URCUL #### [facility] [address] [place] [id number] ED PROV NOTE Observed: 04/22/2018 Status: COMPLETED Source: [facility] 5:10 AM [facility] OTHER [place] REPOSITORY HNO ID: [id number] Author: Grace Paez MD Service: (none) Author Type: Physician Type: ED Provider Notes Filed: 04/22/2018 6:59 AM Note Text: ED Provider Note Patient Name: Jeffrey Cullen SERVICE DATE: 04/22/18 History Patient presents with: Fall Patient presents from [facility] after fall with c/o head laceration. Found to be hypotensive by squad. Patient has trach mask with wet secretions that were suctioned on arrival. [facility] yesterday. He is s/p CABG 02/12- [...] Abs Lymph 1.36 1.00 - 4.00 k/uL [place]% 8.2 % Abs [place] 0.90 (H) <0.87 k/uL Eosin% 2.9 % Abs Eosin 0.32 <0.46 k/uL Baso% 0.6 % Abs Baso 0.07 <0.11 k/uL URINALYSIS Result Value Ref Range Color Yellow Yellow Appearance (U) Clear Clear Glucose, Urine Negative Negative mg/dL Bilirubin, Urine Negative Negative Ketones, Urine Trace (A) Negative Specific [place], Ur 1.010 1.001 - 1.029 Hemoglobin/Blood,Ur Negative [...] Sample Type BG Arterial Site ABG LR Office Assistant Receptionist BG aida mejias pO2, Arterial 57.4 (L) [...] 04/22/2018 at 0621 hours and readback occurred. Electromechanisms Design Drafter: PSCB Transcribe Date/Time: Apr 22 2018 6:18A [...] edema. Cardiomediastinal silhouette: Mildly enlarged. Other: . Electromechanisms Design Drafter: SHILOH Transcribe Date/Time: Apr 22 2018 6:02A [...] well, no immediate complications Medical Decision Making [facility] Patient with h/o afib and CAD/S/p CABG sent from rehab after fall. Found to have forehead laceration, 3 mm subdural left frontal parietal on CT, and hypotension. Laceration was repaired with #4 sutures and [facility] was contacted for transfer regarding head trauma. [...] encounter Multiple skin tears Plan Transferred to [facility] Condition: stable SIGNATURE: MD Grace Denton MD 04/22/18 0603 Grace Paez MD 04/22/18 0659 ED NOTE Observed: 04/22/2018 Status: COMPLETED Source: [place] 5:08 AM [facility] REPOSITORY HNO ID: [id number] Author: Moris MoodyRn) ANGELINA Trevizo Service: (none) Author Type: Registered Nurse Type: ED Notes Filed: 04/22/2018 5:31 AM Note Text: Straight cath urine specimen obtained and sent. ED NOTE Observed: 04/22/2018 Status: COMPLETED Source: [place] 5:02 AM [facility] OTHER [place] REPOSITORY HNO ID: [id number] Author: Moris (Rn) ANGELINA Trevizo Service: (none) Author Type: Registered Nurse Type: ED Notes Filed: 04/22/2018 5:02 AM Note Text: Blood cultures x1 drawn and sent. CBC AND DIFFERENTIAL Collected: 04/22/2018 Status: F Source: [place] 5:02 AM [facility] OTHER [place] REPOSITORY TYPE CODE TESTS RESULT OUT OF [...] k/uL Abs Lymph 1.36 LAB AMONO % [place]% 8.2 LAB AAMONO <0.87 k/uL Abs [place] High 0.90 LAB AEOS % Eosin% 2.9 LAB AAEOS <0.46 k/uL Abs Eosin 0.32 LAB ABASO % Baso% 0.6 LAB AABASO <0.11 k/uL Abs Baso 0.07 Performed By: #### CBCDIF, CMP #### [facility] [address] [place] [address] COMP METABOLIC PANEL Collected: 04/22/2018 Status: F Source: [place] 5:02 AM CLINIC OTHER CAMPUS REPOSITORY TYPE [...] 74-99 mg/dL Glucose 93 Result Comment: The [place] Diabetes Association (ADA) provides guidance for cutoff [...] Standards of Medical Care in Diabetes 2016, [place] [employer]. Diabetes Care. 2016.39(Suppl 1). LAB [...] GFR. Performed By: #### CBCDIF, CMP #### [facility] [address] [place] [address] NT PRO BNP Collected: 04/22/2018 Status: F Source: [facility] 5:02 AM CLINIC OTHER CAMPUS REPOSITORY TYPE CODE TESTS RESULT OUT OF REFERENCE UNITS RANGE LAB PBNP <125 pg/mL High PRO B Natr 5233 Peptide Performed By: #### NTBNP, CKCKMB #### [facility] [address] [place] [address] CK, TOTAL AND CKMB Collected: 04/22/2018 Status: F Source: [place] 5:02 AM [facility] OTHER CAMPUS REPOSITORY TYPE CODE TESTS RESULT OUT OF REFERENCE UNITS RANGE LAB CK 51-298 U/L CK 148 LAB MB <7.7 ng/mL MB 3.7 LAB CKMBRI 0.0-4.0 % CK MB % 2.5 Performed By: #### NTBNP, CKCKMB #### [facility] [address] [place] [address] TROPONIN T Collected: 04/22/2018 Status: F Source: [place] 5:02 AM [facility] OTHER CAMPUS REPOSITORY TYPE CODE TESTS RESULT OUT OF REFERENCE UNITS RANGE LAB TROPT 0.000-0.029 ng/mL High Troponin T 0.079 Result Comment: Called to and read back by: Lady [phone] 04/22/18 0625 BBlum Performed By: #### KRISTIN #### [facility] [address] [facility] [phone] Observed: 04/22/2018 Status: F Source: [facility] BLOOD CULTURE 5:02 AM [facility] REPOSITORY Culture Result - Bacillus species Probable contaminant. Susceptibility testing will not be performed. Call lab within 72 hours to initiate workup if clinically indicated. --> ABNORMAL ALERT (NOTE) Positive result called to and read back by: Radha [facility] 04/24/18 0602 WaldemarFerminlyssa Performed By: #### BLCUL #### [facility] [address] [place] [address] ED NOTE Observed: 04/22/2018 Status: COMPLETED Source: [place] 4:51 AM [facility] REPOSITORY HNO ID: [id number] Author: Moris (Rn) ANGELINA Trevizo Service: (none) Author Type: Registered Nurse Type: ED Notes Filed: 04/22/2018 4:51 AM Note Text: Pt to ED today CC of fall face forward from a chair. Pt has lacerations and contusions to his head. BRIEF OP NOT Observed: 04/17/2018 Status: COMPLETED Source: [place] 12:51 PM [facility] REPOSITORY HNO ID: [id number] Author: Elaine Sweeney Service: Radiology Author Type: Physician Type: Brief Op Note Filed: 04/17/2018 12:54 PM Note Text: INTERVENTIONAL RADIOLOGY POST PROCEDURE NOTE DATE: 04/17/18 NAME: Jeffrey Cullen LOG ID: [id number] Pre-Procedure Diagnosis: Damaged indwelling percutaneous GJ tube Post Procedure Diagnosis: Same. Office Assistant Receptionist: Dr. Elaine Sweeney Procedure: Other (specify) - [...] G/J TUBE Observed: 04/17/2018 Status: F Source: [facility] [id number] 12:47 PM HEALTH SYSTEM REPOSITORY Performed at [facility] APPROVED BY: ELAINE SWEENEY MD PROCEDURE: FLUOROSCOPIC [...] tip within the proximal jejunum. New 18 Bangladeshi, 45 cm length percutaneous gastrojejunostomy tube was placed. IMPRESSION: Successful percutaneous gastrojejunostomy tube replacement, as described. HOSP Observed: 04/17/2018 Status: COMPLETED Source: [place] 12:00 AM CLINIC OTHER CAMPUS REPOSITORY Patient:Jeffrey Cullen MRN: <[id number]> Height:5' 10.984(1.803 m) Weight:No patient weight recorded [...] recurrent) [K40.90] NSTEMI (non-ST elevated myocardial infarction) ([facility]) [I21.4] NSVT (nonsustained ventricular tachycardia) ([facility]) [I47.2] Nicotine use disorder, F17.2 [F17.200] Severe protein-calorie malnutrition ([facility]) [E43] Encephalopathy [G93.40] Weakness [R53.1] Acute respiratory failure with hypoxia ([facility]) [J96.01] Allergies: Allergies have not been reviewed in the past 30 days. Lab Values No results within the last 30 days for the following basenames: K,HCT No progress notes entered within the past 30 days NURSING PROG Observed: 03/13/2018 Status: COMPLETED Source: [place] 7:00 PM [facility] OTHER [place] REPOSITORY HNO ID: [id number] Author: Darcy (Rn) Anirudh, RN Service: Nursing Author Type: Registered Nurse Type: Nursing Progress Note Filed: 03/13/2018 7:25 PM Note Text: Pt. [facility] NURSING PROG Observed: 03/13/2018 Status: COMPLETED Source: [place] 5:43 PM [facility] OTHER [place] REPOSITORY HNO ID: [id number] Author: Darcy MoodyRn) Anirudh, RN Service: Nursing Author Type: Registered Nurse Type: Nursing Progress Note Filed: 03/13/2018 5:44 PM Note Text: Attempted to call report to [facility]. Spoke with an tunnel kiln operator both times and was transferred to unit with no one answering the phone both times. Will attempt again prior to transfer out. PROGRESS Observed: 03/13/2018 Status: COMPLETED Source: [place] 5:21 PM CLINIC OTHER CAMPUS REPOSITORY HNO ID: [id number] Author: Deshaun Lofton Service: Critical Care Author [...] minutes. SIGNATURE: Deshaun Lofton MD [facility] PAGER:[phone] PROGRESS Observed: 03/13/2018 Status: COMPLETED Source: [place] 4:38 PM [facility] OTHER CAMPUS REPOSITORY O ID: [id number] Author: Yanira Garcia (Pharmacist) Service: Pharmacy Author [...] PHARMACIST March 13, 2018 4:39 PM Pager: [phone]; [facility] [phone] 03/13/2018 4:39 PM Medication List START taking [...] solution CNDS Observed: 03/13/2018 Status: COMPLETED Source: [place] 4:32 PM CLINIC OTHER CAMPUS REPOSITORY HNO ID: [id number] Author: Beata Marin Service: Cardiovascular Surgery Author [...] Team: Attending Provider: Beata Marin Consulting: Juan Cabrla Consulting: Omer Watts Consulting: Beata Marin Consulting: [...] tube. Medically stable for discharge to [facility] for further treatment. Neuro [...] No pending results Discharge Disposition Discharge Disposition: [facility] Wound/Surgical Site Care Wash your hands frequently, [...] 101F Follow Up Appointments Follow-Up Appointment Enter [facility] and take the silver elevator to the 3rd floor. The office is immediately on the right. When: In: Comment - once discharged from [facility] Patient/Parents to call for appointment?: Yes Beata Mairn [phone] [facility] [address] [facility] [phone] PCP Requested Referral Follow-Up Appointment With: Taker Off Braker Machine Dr. Cabral When: In: Comment - once discharged from [facility] Patient/Parents to call for appointment?: Yes Call [phone] to schedule. Additional Provider to Provider Information: EMG and NCS are recommended to be completed as an outpatient FOLLOW-UP APPOINTMENTS ALREADY SCHEDULED WITH A [facility] PROVIDER: No future appointments. DISCHARGE MEDICATION: [...] management of this patient. SIGNATURE: Clementine Owen APRN.CAMP ASSISTANT PAGER/CONTACT #: [phone] DATE: March 13, 2018 TIME: 4:32 PM CASE MANAGEM Observed: 03/13/2018 Status: COMPLETED Source: [place] 4:23 PM [facility] OTHER CAMPUS REPOSITORY HNO ID: [id number] Author: Ale (Rn) ANGELINA Key Service: (none) Author Type: Registered Nurse Type: Care Mgt Progress Note Filed: 03/13/2018 4:28 PM Note Text: CARE MANAGEMENT PROGRESS NOTE SERVICE DATE: 03/13/2018 SERVICE TIME: 4:23 PM LOS: 34 days Needs Prior to Discharge: Discharge Prescriptions;Transportation to Appointments Orders faxed into [facility] for [facility]. Rosamaria at [facility] aware ready for dsch No provided to ns to call report. Transport on for 6 pm I spoke with Dr. Ojeda re neuro rec'd emg/ncs--but never ordered Can be done as op per him. SIster aware of transfer SIGNATURE: Ale Key RN PATIENT NAME: Jeffrey Cullen DATE: March 13, 2018 TIME: 4:23 PM PAGER/CONTACT #: [phone] PROGRESS Observed: 03/13/2018 Status: COMPLETED Source: [place] 2:52 PM [facility] OTHER [place] REPOSITORY HNO ID: [id number] Author: Juan Carrera Service: Infectious Disease Author Type: Physician Type: Progress Notes Filed: 03/13/2018 2:53 PM Note Text: Day 2 atb after line out; day 3.5 whitney Chg whitney to trx for kleb resist to amp; [place] THRU 03/25 HERE OR [facility] Juan Carrera MD 03/13/2018 2:53 PM pgr [phone] PROGRESS Observed: 03/13/2018 Status: COMPLETED Source: [place] 1:06 PM [facility] OTHER [place] REPOSITORY HNO ID: [id number] Author: Clementine Owen Service: Cardiovascular Surgery Author Type: Nurse Practitioner Type: Progress Notes Filed: 03/13/2018 4:32 PM Note Text: CARDIOTHORACIC SURGERY POSTOP PROGRESS NOTE SERVICE DATE: 03/13/2018 SERVICE TIME: 1:06 PM Subjective LOS: 34 INTERVAL EVENTS / PERTINENT ROS: Spoke with ID and social work, who are ok with pt transfer to [facility] today. Awaiting Neuro input re: EMG and [...] management noted; family aware of transfer to [facility]. Statement of expert eval completed per Dr. Marin and social work updated. SIGNATURE: Clementine Owen APRN.KARINE PATIENT NAME: Jeffrey Cullen DATE: March 13, 2018 TIME: 1:06 PM PAGER/CONTACT #: [phone] ETX [phone] CASE MANAGEM Observed: 03/13/2018 Status: COMPLETED Source: [place] 11:29 AM CLINIC OTHER CAMPUS REPOSITORY HNO ID: [id number] Author: Ale (Rn) ANGELINA Key Service: (none) Author Type: Registered Nurse Type: Care Mgt Progress Note Filed: 03/13/2018 12:57 PM Note Text: CARE MANAGEMENT PROGRESS NOTE SERVICE DATE: 03/13/2018 SERVICE TIME: 11:29 AM LOS: 34 days Needs Prior to Discharge: Discharge Prescriptions;Transportation to Appointments Pt remains on iv diprovan, vent with trach. Met with sister Trev in room this am after apparatus engineering technologist had spoken with her and have informed card surg physician recruiter of need for competency eval to assist with pursuit of guardianship. Sister is leaving today for [place]. She is agreeable to [facility] and is ok with transfer today if pt is ready since she will be in flight will just leave message of time if happens today. Await orders for dsch. [employer] to discuss with ID, neuro and surgeon. Did also speak with Mami at [facility]. * per social work physician following patient may complete competency paperwork and [employer] is aware SIGNATURE: Ale Key RN PATIENT NAME: Jeffrey Cullen DATE: March 13, 2018 TIME: 11:29 AM PAGER/CONTACT #: [phone] SOCIAL WORK Observed: 03/13/2018 Status: COMPLETED Source: [place] 9:49 AM CLINIC OTHER CAMPUS REPOSITORY O ID: [id number] Author: Alexa Cortez (Sw) Service: Social Work Author Type: Data Analytics Specialist Type: Social Work Filed: 03/13/2018 2:48 PM Note Text: SOCIAL WORK CONSULT NOTE SERVICE DATE: 03/13/2018 SERVICE TIME: 9:49 AM Referred by: Nurse Reason for visit: Guardianship - Probate Court: [facility] Living Arrangement: Home Lives With: Alone Financial Resources: Retired Primary Contact: Extended Emergency Contact Information Primary Emergency Contact: Trev Carmen Mobile Relation: Sister Supportive: Yes Other Important Patient Contacts: None Health Insurance: Medicare Jeffrey Cullen is a 67 year old male who was referred by RN re: guardianship. Met with pt's sister, Trev Carmen who indicates she consulted with state's attorney Lei Kay and wishes to file for guardianship of pt. Sister plans to return to [facility]. today. Pt resides in [facility]. Request psychology be consulted for capacity evaluation. Will place Statement of Expert Eval from [facility] in chart. Addendum: 2:45 pm Appreciate ELECTRICAL INSTRUMENTATION TECHNICIAN, Clementine and completing and signing Statement of Expert Eval. Spoke with state's attorney, Joanna Zamora and per his request, will fax Statement of Expert eval to him and mail him the original. Outcome/Recommendations: Probate Court Time spent (minutes): 30 SIGNATURE: VANESSA Hernandez PATIENT NAME: Jeffrey Cullen DATE: March 13, 2018 TIME: 9:49 AM PAGER/CONTACT#: [phone] NUTRITION Observed: 03/13/2018 Status: COMPLETED Source: [place] 9:44 AM CLINIC OTHER CAMPUS REPOSITORY HNO ID: [id number] Author: Sandra Alvarado) TREASURE Almaguer Service: Nutrition [...] day for more than 30 years) Earlier 3/13/18?he was sitting and suddenly started having substernal [...] to re-assess. Interval History: Awaiting transfer to [facility]. Continues on TF and vent support with trach. BM 03/11. Tube feeding held 03/07-03/08 for MRI and 03/10 for lumbar puncture. ACTIVE PROBLEM LIST Inguinal Hernia Without Mention of Obstruction Or Gangrene, Unilateral Or Unspecified, (Not Specified As Recurrent) Nstemi (Non-St Elevated Myocardial Infarction) ([facility]) Nsvt (Nonsustained Ventricular Tachycardia) ([facility]) Nicotine use disorder, F17.2 Malnutrition of Moderate Degree ([facility]) Encephalopathy Weakness No past medical history on [...] lb) 12/04/07 : 100.2 kg (221 lb) [place] Body Weight: 78.2kg Resting Metabolic Rate: 1783 Estimated kilocalorie needs: 6368-9183 kilocalories determined by 25-30 kcal/kg ideal body weight Estimated protein needs: 103-133 grams determined by 1.3-1.7 g/kg [place] weight Estimated fluid needs: 6929-9144 milliliters based on 1 mL per kcal [...] (96.1 ?F) Resp 16 Ht 180.3 cm () Wt 98.7 kg (217 lb 9.5 oz) [...] dilTIAZem 100 mg in D5W 100 mL ADD-Nokomis (CARDIZEM) 5-15 mg/hr INTRAVENOUS CONTINUOUS diltiazem 60 [...] LD PATIENT NAME: Jeffrey Cullen DATE: March 13, 2018 TIME: 9:44 AM PAGER: [phone] HEMOGRAM/DIFF Collected: 03/13/2018 Status: F Source: [facility] 4:30 AM HEALTH SYSTEM REPOSITORY TYPE CODE [...] 1.84 LAB MONON(LOIN 0.30-0.82 thou/cmm C) Abs. [place] 0.64 LAB EOSN(LOINC 0.04-0.54 thou/cmm ) Abs. Eosin 0.27 LAB BASON(LOIN 0.01-0.08 thou/cmm C) Abs. Baso 0.03 Result Comment: Smear scanned; tech agrees with automated differential Performed By: #### CBCD1 #### [place] [address] BASIC PANEL Collected: 03/13/2018 Status: F Source: [facility] 4:30 AM HEALTH SYSTEM REPOSITORY TYPE CODE [...] Gap 8 Performed By: #### P8 #### [place] [address] MDRD GFR Collected: 03/13/2018 Status: F Source: [facility] 4:30 AM HEALTH SYSTEM REPOSITORY TYPE CODE TESTS RESULT OUT OF RANGE REFERENCE UNITS LAB GFRFN(LOINC >60mL/min/1.73m ) 2 eGFR >60 Result Comment: If the patient is , multiply the result by 1.210. Performed By: #### GFR #### [place] [address] PROGRESS Observed: 03/12/2018 Status: COMPLETED Source: [place] 1:00 PM CLINIC OTHER CAMPUS REPOSITORY HNO ID: [id number] Author: Paulette Aguilar Service: Critical Care Author [...] best friend) present at bedside-flew in from [place] yesterday Pt breathing w/ the vent w/o [...] dilTIAZem 100 mg in D5W 100 mL ADD-Nokomis (CARDIZEM) 5-15 mg/hr INTRAVENOUS CONTINUOUS diltiazem 60 [...] (03/12/182099) Set Ventilator Respiratory Rate (BPM): 16 (03/12/18 1930) Total Respiratory Rate (BPM): 19 (03/12/18 0840) [...] severe ICU delirium; LP 03/10 neg for CABINET ASSEMBLER infection - still no clear explaination # [...] per daughter had pain shoulder pain complaints TICKET TAKER) - PICC (likely infected) removed 03/11- cont [...] PM PROGRESS Observed: 03/12/2018 Status: COMPLETED Source: [place] 11:49 AM CLINIC OTHER CAMPUS REPOSITORY HNO ID: [id number] Author: Krystal Miller (Cns) Service: Critical Care [...] Score: Pt. 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 BP 123/91 Pulse [...] dilTIAZem 100 mg in D5W 100 mL ADD-Nokomis (CARDIZEM) 5-15 mg/hr INTRAVENOUS CONTINUOUS diltiazem 60 [...] Invasive Ventilator Mode: Pressure Regulated Volume Control (03/12/1840) Set Ventilator Respiratory Rate (BPM): 16 (03/12/18 0840) Total Respiratory Rate (BPM): 19 (03/12/18 0840) Tidal Volume Set (mL): 55 (03/12/1840) Exhaled Tidal Volume (mL): 590 (03/12/18 0840) Minute Volume (L): 10.3 (03/12/18 0840) Peak Inspiratory Pressure (cm H2O): 14 (03/12/18 0840) PEEP/CPAP (cm H2O): 5 (03/12/18839) HEMODYNAMIC DATA: Reviewed NUTRITION: Enteral Feeds: Yes [...] this interval not displayed. ABG: Invalid input(s): [id number] Assessment/Plan IMPRESSION: Critical Care Documentation: The patient [...] 35 minutes excluding procedures. SIGNATURE: Krystal Miller APRN.CABINET ASSEMBLER PATIENT NAME: Jeffrey Cullen DATE: March 12, 2018 TIME: 11:49 AM PROGRESS Observed: 03/12/2018 Status: COMPLETED Source: [place] 10:42 AM CLINIC OTHER CAMPUS REPOSITORY O ID: [id number] Author: Elkin Colunga III Service: Infectious Disease [...] dilTIAZem 100 mg in D5W 100 mL ADD-Nokomis (CARDIZEM) 5-15 mg/hr INTRAVENOUS CONTINUOUS diltiazem 60 [...] 130.3 mL/min (based on Cr of 0.65). 03/09 Blood cultures with kleb/enterobacter group awaiting susceptibility/ID [...] 12, 2018 TIME: 10:43 AM PAGER/CONTACT #: [phone] PROGRESS Observed: 03/12/2018 Status: COMPLETED Source: [place] 9:55 AM [facility] OTHER CAMPUS REPOSITORY O ID: [id number] Author: Evans Parkinson Service: Cardiac Surgery Author [...] Intake/Output Summary (Last 24 hours) at 03/12/18 0955 Last data filed at 03/12/18 0637 Gross [...] 2018 TIME: 9:55 AM PAGER/CONTACT #: [phone] HEMOGRAM/DIFF Collected: 03/12/2018 Status: F Source: [facility] 5:15 AM HEALTH SYSTEM REPOSITORY TYPE CODE [...] 1.87 LAB MONON(LOIN 0.30-0.82 thou/cmm C) Abs. [place] 0.61 LAB EOSN(LOINC 0.04-0.54 thou/cmm ) Abs. Eosin 0.28 LAB BASON(LOIN 0.01-0.08 thou/cmm C) Abs. High Baso 0.11 LAB RBCM(LOINC ) RBC Morphology Present LAB TEAR(LOINC ) Tear drop cells Few Performed By: #### CBCD1 #### [place] [address] BASIC PANEL Collected: 03/12/2018 Status: F Source: [facility] 5:15 AM HEALTH SYSTEM REPOSITORY TYPE CODE [...] Gap 8 Performed By: #### P8 #### [place] [address] MDRD GFR Collected: 03/12/2018 Status: F Source: [facility] 5:15 AM HEALTH SYSTEM REPOSITORY TYPE CODE TESTS RESULT OUT OF RANGE REFERENCE UNITS LAB GFRFN(LOINC >60mL/min/1.73m ) 2 eGFR >60 Result Comment: If the patient is , multiply the result by 1.210. Performed By: #### GFR #### [place] [address] PROGRESS Observed: 03/11/2018 Status: COMPLETED Source: [place] 1:00 PM CLINIC OTHER CAMPUS REPOSITORY HNO ID: [id number] Author: Paulette Aguilar Service: Critical Care Author [...] dilTIAZem 100 mg in D5W 100 mL ADD-Nokomis (CARDIZEM) 5-15 mg/hr INTRAVENOUS CONTINUOUS diltiazem 60 [...] severe ICU delirium; LP 03/10 neg for CABINET ASSEMBLER infection # Klebsiella/Enterobacter bacteremia- suspect BSI d/t [...] CONSULT PROG Observed: 03/11/2018 Status: COMPLETED Source: [place] 11:49 AM CLINIC OTHER CAMPUS REPOSITORY O ID: [id number] Author: Jacey Zamora Service: Neurology Author Type: [...] 11, 2018 TIME: 11:49 AM PAGER/CONTACT #: [facility] STAFF PHYSICIAN NOTE OF PERSONAL INVOLVEMENT IN CARE I have reviewed the consult note obtained and documented by the physician assistant prosecuting attorney and I personally participated in the hernandez [...] is not included. Jacey Zamora M.D Staff Umbrella Frame Maker Pager [phone] Date : March 11, 2018 Observed: 03/11/2018 Status: F Source: [employer] DEVICE 11:35 AM HEALTH SYSTEM REPOSITORY Test performed at [facility] <15 colonies cultured Performed By: #### C_DEV #### [facility] [address] [address] PROGRESS Observed: 03/11/2018 Status: COMPLETED Source: [place] 9:56 AM CLINIC OTHER CAMPUS REPOSITORY HNO ID: [id number] Author: Elkin Colunga III Service: Infectious Disease [...] dilTIAZem 100 mg in D5W 100 mL ADD-Nokomis (CARDIZEM) 5-15 mg/hr INTRAVENOUS CONTINUOUS diltiazem 60 [...] 11, 2018 TIME: 9:57 AM PAGER/CONTACT #: [phone] PROGRESS Observed: 03/11/2018 Status: COMPLETED Source: [place] 9:32 AM [facility] OTHER CAMPUS REPOSITORY HNO ID: [id number] Author: Evans Parkinson Service: Cardiac Surgery Author [...] 1310 Peripherally Inserted (PICC) Right Arm 5.0 Bangladeshi 21 days Drain Indwelling Urinary Catheter 02/09/18 [...] 2018 TIME: 9:32 AM PAGER/CONTACT #: [phone] HEMOGRAM/DIFF Collected: 03/11/2018 Status: F Source: [facility] 4:55 AM HEALTH SYSTEM REPOSITORY TYPE CODE [...] 1.00 LAB MONON(LOIN 0.30-0.82 thou/cmm C) Abs. [place] 0.74 LAB EOSN(LOINC 0.04-0.54 thou/cmm ) Abs. Eosin 0.16 LAB BASON(LOIN 0.01-0.08 thou/cmm C) Abs. Baso 0.03 Performed By: #### CBCD1 #### [place] [address] BASIC PANEL Collected: 03/11/2018 Status: F Source: [facility] 4:55 AM HEALTH SYSTEM REPOSITORY TYPE CODE [...] Gap 9 Performed By: #### P8 #### [place] [address] MDRD GFR Collected: 03/11/2018 Status: F Source: [facility] 4:55 HEALTH SYSTEM REPOSITORY TYPE CODE TESTS RESULT OUT OF RANGE REFERENCE UNITS LAB GFRFN(LOINC >60mL/min/1.73m ) 2 eGFR >60 Result Comment: If the patient is , multiply the result by 1.210. Performed By: #### GFR #### [place] [address] CT CHEST W/O CONTRAST Observed: 03/10/2018 Status: F Source: [facility] [employer] 4:33 PM HEALTH SYSTEM REPOSITORY Performed at [facility] APPROVED BY: Ismael Marin MD EXAMINATION: CHEST [...] AND PELVIS Observed: 03/10/2018 Status: F Source: [place] 4:33 PM HEALTH SYSTEM REPOSITORY Performed at [facility] APPROVED BY: Ismael Marin MD Exam Title: [...] recommended. PROGRESS Observed: 03/10/2018 Status: COMPLETED Source: [place] 3:32 PM CLINIC OTHER CAMPUS REPOSITORY HNO ID: [id number] Author: Clementine Owen Service: Cardiovascular Surgery Author [...] dilTIAZem 100 mg in D5W 100 mL ADD-Nokomis (CARDIZEM) - diltiazem 60 mg tab(s) (CARDIZEM) [...] 1310 Peripherally Inserted (PICC) Right Arm 5.0 Bangladeshi 21 days Drain Indwelling Urinary Catheter 02/09/18 [...] 10, 2018 TIME: 3:34 PM PAGER/CONTACT #: [phone] ETX [phone] PROGRESS Observed: 03/10/2018 Status: COMPLETED Source: [place] 1:04 PM [facility] REPOSITORY HNO ID: [id number] Author: Jose Myles Service: Radiology Author Type: Physician Type: Progress Notes Filed: 03/10/2018 1:05 PM Note Text: Radiology Status post LP under fluoroscopy without immediate complication Opening pressure: 30-31 cm Fluid: approximately 12 ml clear CSF to lab Jose Myles MD PROGRESS Observed: 03/10/2018 Status: COMPLETED Source: [place] 12:41 PM [facility] REPOSITORY HNO ID: [id number] Author: Juan Carrera Service: Infectious Disease Author Type: Physician Type: Progress Notes Filed: 03/10/2018 12:43 PM Note Text: LP no wbc so no infcn; Crypto ag neg Juan Carrera MD 03/10/2018 12:43 PM pgr [phone] PROGRESS Observed: 03/10/2018 Status: COMPLETED Source: [place] 12:22 PM [facility] REPOSITORY HNO ID: [id number] Author: Juan Carrera Service: Infectious Disease Author [...] dilTIAZem 100 mg in D5W 100 mL ADD-Nokomis (CARDIZEM) 5-15 mg/hr INTRAVENOUS CONTINUOUS diltiazem 60 [...] [id number] HEMOGRAM/DIFF Collected: 03/10/2018 Status: F Source: [facility] 12:00 PM HEALTH SYSTEM REPOSITORY TYPE CODE [...] LAB MONON(LOIN 0.30-0.82 thou/cmm C) Abs. High [place] 0.85 LAB EOSN(LOINC 0.04-0.54 thou/cmm ) Low Abs. Eosin 0.03 LAB BASON(LOIN 0.01-0.08 thou/cmm C) Abs. Baso 0.03 Result Comment: Smear scanned; tech agrees with automated differential Performed By: #### CBCD1 #### [place] [address] COMPREHENSIVE PANEL Collected: 03/10/2018 Status: F Source: [facility] 12:00 HEALTH SYSTEM REPOSITORY TYPE CODE TESTS RESULT [...] Gap 12 Performed By: #### P14 #### [facility] [address] [id number] MDRD GFR Collected: 03/10/2018 Status: F Source: [facility] 12:00 PM HEALTH SYSTEM REPOSITORY TYPE CODE TESTS RESULT OUT OF RANGE REFERENCE UNITS LAB GFRFN(LOINC >60mL/min/1.73m ) 2 eGFR >60 Result Comment: If the patient is , multiply the result by 1.210. Performed By: #### GFR #### [facility] [address] [id number] CHEST 1 VIEW Observed: 03/10/2018 Status: F Source: [facility] 11:51 AM HEALTH SYSTEM REPOSITORY Performed at [facility] APPROVED BY: Richie Velasco MD EXAM TITLE: [...] CONSULT PROG Observed: 03/10/2018 Status: COMPLETED Source: [place] 11:43 AM CLINIC OTHER CAMPUS REPOSITORY HNO ID: [id number] Author: Guillermina Umana Service: Neurology Author Type: [...] note obtained and documented by the physician assistant prosecuting attorney, Suzanne Prasad. I personally participated in the [...] myocardial infarction) (HCC) NSVT (nonsustained ventricular tachycardia) ([facility]) Nicotine use disorder, F17.2 Malnutrition of moderate degree ([facility]) Encephalopathy Weakness Resolved Problems: * No resolved hospital problems. * PLAN, IMPRESSION AND ACTION(S) TAKEN Please see the documented wokthm-fi-djdxvd plan in the updated problem list. Guillermina Umana MD Staff, Neurointensive Care Neurological [place] Date of Service: 03/10/2018 Time of Service: 5:52 PM This is an electronically created document. If printed, please do not remove from the chart or modify printed copy. Observed: 03/10/2018 Status: F Source: [facility] 11:30 AM HEALTH SYSTEM FLUID REPOSITORY Test performed at [facility] No growth No organisms seen Performed By: #### C_BF #### [facility] [address] [address] PROGRESS Observed: 03/10/2018 Status: COMPLETED Source: [place] 11:00 AM [facility] OTHER CAMPUS REPOSITORY HNO ID: [id number] Author: Paulette Aguilar Service: Critical Care Author [...] dilTIAZem 100 mg in D5W 100 mL ADD-Nokomis (CARDIZEM) 5-15 mg/hr INTRAVENOUS CONTINUOUS diltiazem 60 [...] 1310 Peripherally Inserted (PICC) Right Arm 5.0 Bangladeshi 21 days Drain Indwelling Urinary Catheter 02/09/18 [...] LUMBAR PUNCTURE Observed: 03/10/2018 Status: F Source: [facility] 9:42 AM HEALTH SYSTEM REPOSITORY Performed at [facility] APPROVED BY: Jose Myles MD LUMBAR PUNCTURE [...] puncture under fluoroscopic guidance as described above. [facility] [place] OUT Collected: 03/10/2018 Status: F Source: [facility] 9:08 AM HEALTH SYSTEM REPOSITORY TYPE CODE [...] See below Result Comment: Testing performed at [facility] [place] [address] Performed By: #### MISC2 #### [place] [address] Observed: 03/10/2018 Status: F Source: [facility] CRYPTOCOCCAL ANTIGEN 9:00 AM HEALTH SYSTEM REPOSITORY Test performed at [facility] Negative Performed By: #### CRY #### [place] [address] CSF CELL COUNT/DIFF Collected: 03/10/2018 Status: F Source: [facility] 9:00 AM HEALTH SYSTEM REPOSITORY TYPE CODE [...] < 6. Performed By: #### CSFCD #### [place] [address] GLUCOSE,CSF Collected: 03/10/2018 Status: F Source: [facility] 9:00 AM HEALTH SYSTEM REPOSITORY TYPE CODE TESTS RESULT OUT OF RANGE REFERENCE UNITS LAB CSFGL(LOINC 60-70% of blood mg/dl ) sugar. 57 Glucose,CSF Performed By: #### CSFGL #### [place] [address] PROTEIN CSF Collected: 03/10/2018 Status: F Source: [facility] 9:00 AM HEALTH SYSTEM REPOSITORY TYPE CODE TESTS RESULT OUT OF REFERENCE UNITS RANGE LAB CSFPR(LOINC 15-45 mg/dL ) Protein CSF 39 Performed By: #### CSFPR #### [place] [address] Observed: 03/10/2018 Status: F Source: [employer] 8:45 AM HEALTH SYSTEM (TB) REPOSITORY Test performed at [facility] No acid fast bacilli cultured No acid fast bacilli seen Performed By: #### C_AFB #### [place] [address] Observed: 03/10/2018 Status: F Source: [employer] 8:45 AM HEALTH SYSTEM REPOSITORY Test performed at [facility] No fungus (yeast or mold) cultured Performed By: #### C_FUN #### [place] [address] CT HEAD W/O CONTRAST Observed: 03/10/2018 Status: F Source: [employer] 8:24 AM HEALTH SYSTEM REPOSITORY Performed at [facility] APPROVED BY: Jose Myles MD Addendum Begins [...] above. PROGRESS Observed: 03/09/2018 Status: COMPLETED Source: [place] 4:21 PM [facility] REPOSITORY HNO ID: [id number] Author: Guillermina Umana Service: Critical Care Author [...] 2018 PROGRESS Observed: 03/09/2018 Status: COMPLETED Source: [place] 4:13 PM [facility] REPOSITORY HNO ID: [id number] Author: Beata Marin Service: Cardiovascular Surgery Author [...] dilTIAZem 100 mg in D5W 100 mL ADD-Nokomis (CARDIZEM) - diltiazem 60 mg tab(s) (CARDIZEM) [...] 1310 Peripherally Inserted (PICC) Right Arm 5.0 Bangladeshi 20 days Drain Indwelling Urinary Catheter 02/09/18 [...] lasix today per Dr. Marin -Monitor ARLINE -Lennox for strict IANDO SIGNATURE: Clementine Owen APRN.CAMP ASSISTANT PATIENT NAME: Jeffrey Cullen DATE: March 09, 2018 TIME: 4:13 PM PAGER/CONTACT #: [phone] [phone] Patient seen with ELECTRICAL INSTRUMENTATION TECHNICIAN this AM. Labs, data, and careplan and neuro W/U discussed. Nothing to add from CT surg standpoint. PROGRESS Observed: 03/09/2018 Status: COMPLETED Source: [place] 3:30 PM CLINIC OTHER CAMPUS REPOSITORY HNO ID: [id number] Author: Paulette Aguilar Service: Critical Care Author [...] dilTIAZem 100 mg in D5W 100 mL ADD-Nokomis (CARDIZEM) 5-15 mg/hr INTRAVENOUS CONTINUOUS diltiazem 60 [...] 1310 Peripherally Inserted (PICC) Right Arm 5.0 Bangladeshi 20 days Drain Indwelling Urinary Catheter 02/09/18 [...] 3:31 PM Observed: 03/09/2018 Status: F Source: [facility] CULT BLOOD 2:30 PM HEALTH SYSTEM REPOSITORY Test performed at [facility] Gram stain bottle I: Gram negative bacilli Gram stain bottle II: Gram negative bacilli ORGANISM: Klebsiella oxytoca (ID: 1) cultured in both bottles Performed By: #### C_BLO #### [place] [address] URINALYSIS, REFLEX Collected: 03/09/2018 Status: F Source: [facility] 2:10 PM HEALTH SYSTEM REPOSITORY TYPE CODE [...] Urine NEGATIVE LAB SPG(LOINC) 1.005-1.030 Specific 1.029 [place], Ur LAB PHUR(LOINC 5.0-8.0 ) pH,Urine 5.5 [...] laboratory criteria. Performed By: #### URIN #### [place] [address] PROCALCITONIN Collected: 03/09/2018 Status: F Source: [facility] 2:10 PM HEALTH SYSTEM REPOSITORY TYPE CODE [...] procalcitonin elevations. Performed By: #### PRCAS #### [place] [address] Observed: 03/09/2018 Status: F Source: [facility] CRYPTOCOCCAL ANTIGEN 2:10 PM HEALTH SYSTEM REPOSITORY Test performed at [facility] Negative Performed By: #### CRY #### [place] [address] Observed: 03/09/2018 Status: F Source: [facility] CULT BLOOD 2:00 PM HEALTH SYSTEM REPOSITORY Test performed at [facility] Gram stain bottle I: Gram negative bacilli Gram stain bottle II: Gram negative bacilli ORGANISM: Klebsiella oxytoca (ID: 1) cultured in both bottles For sensitivity report see Date/ Performed By: #### C_BLO #### [place] [address] CONSULT Observed: 03/09/2018 Status: COMPLETED Source: [place] 1:07 PM CLINIC OTHER CAMPUS REPOSITORY HNO ID: [id number] Author: Juan Carrera Service: Infectious Disease Author Type: Physician Type: Consults Filed: 03/09/2018 1:09 PM Note Text: Needs LP if you want to check for encephalitis or subacute meningitis; d/w nsic Juan Carrera MD 03/09/2018 1:09 PM pgr [phone] NUTRITION Observed: 03/09/2018 Status: COMPLETED Source: [place] 10:47 AM CLINIC OTHER CAMPUS REPOSITORY HNO ID: [id number] Author: Sandra Almaguer RD Service: Nutrition Therapy [...] dilTIAZem 100 mg in D5W 100 mL ADD-Nokomis (CARDIZEM) 5-15 mg/hr INTRAVENOUS CONTINUOUS diltiazem 60 [...] March 09, 2018 TIME: 10:47 AM PAGER: [phone] HEMOGRAM/DIFF Collected: 03/09/2018 Status: F Source: [facility] 8:40 AM HEALTH SYSTEM REPOSITORY TYPE CODE [...] 1.48 LAB MONON(LOIN 0.30-0.82 thou/cmm C) Abs. [place] 0.68 LAB EOSN(LOINC 0.04-0.54 thou/cmm ) Abs. Eosin 0.43 LAB BASON(LOIN 0.01-0.08 thou/cmm C) Abs. Baso 0.05 Result Comment: Smear scanned; tech agrees with automated differential Performed By: #### CBCD1 #### [facility] [address] [place], [place] [address] PROTIME Collected: 03/09/2018 Status: F Source: [facility] 8:40 AM HEALTH SYSTEM REPOSITORY TYPE CODE TESTS RESULT OUT OF REFERENCE UNITS RANGE LAB PTI(LOINC) 9.3-11.9 sec Prothrombin Time 11.9 LAB INR(LOINC) INR 1.15 Result Comment: Standard Therapy 2.0-3.0 High Dose 2.5-3.5 Performed By: #### PT #### [facility] [address] [place], [place] [address] CONSULT Observed: 03/09/2018 Status: COMPLETED Source: [place] 12:00 AM CLINIC OTHER CAMPUS REPOSITORY HNO ID: [id number] Author: Juan Carrera Service: Infectious Disease Author Type: Physician Type: Consults Filed: 03/14/2018 5:41 PM Note Text: [facility] - Consultation PATIENT NAME: JEFFREY CULLEN CSN: [id number] DATE OF : 1950 SEX/AGE: M/67 [place] [facility] [place] [facility] 03/09/2018 INFECTIOUS DISEASE CONSULT The patient cannot [...] which would I like to send to [facility] because it is faster. In the meantime, [...] care. Juan Carrera MD Infectious Disease PABLITO:carlyn /[id number] PROGRESS Observed: 03/08/2018 Status: COMPLETED Source: [place] 4:18 PM CLINIC OTHER CAMPUS REPOSITORY HNO ID: [id number] Author: Paulette Aguilar Service: Critical Care Author [...] dilTIAZem 100 mg in D5W 100 mL ADD-Nokomis (CARDIZEM) 5-15 mg/hr INTRAVENOUS CONTINUOUS diltiazem 60 [...] 1310 Peripherally Inserted (PICC) Right Arm 5.0 Bangladeshi 19 days Drain Indwelling Urinary Catheter 02/09/18 0838 Temperature Monitoring 16 Fr 27 days GI Feed/Drain 02/22/18 1336 Gastrostomy-Jejunostomy (G-J) Abdomen 18 Fr 14 days Airway Airway Tracheostomy 02/22/18 14 days Respiratory/Nursing Documentation: O2 Therapy: Ventilator (vent changed out for new humidifier and pt put on post mri) (03/08/18 123) Invasive Ventilator Mode: Pressure Control Ventilation (03/08/18 123) Set Ventilator Respiratory Rate (BPM): 15 (03/08/18 123) Total Respiratory Rate (BPM): 24 (03/08/18 123) Tidal Volume Set (mL): 550 (03/08/18 0800) [...] CASE MANAGEM Observed: 03/08/2018 Status: COMPLETED Source: [place] 3:18 PM CLINIC OTHER CAMPUS REPOSITORY HNO ID: [id number] Author: Angelica Johnson) ANGELINA Malcolm Service: Care Management Author Type: Registered Nurse Type: Care Mgt Progress Note Filed: 03/08/2018 3:22 PM Note Text: Remains intubated, still on Propofol gtt, chronic vent, severe encephalopathy and motor restlessness, plan is for [facility] at discharge. BASIC PANEL Collected: 03/08/2018 Status: F Source: [facility] 1:15 PM HEALTH SYSTEM REPOSITORY TYPE CODE [...] Blood 96 Performed By: #### P8 #### [place] [address] MDRD GFR Collected: 03/08/2018 Status: F Source: [facility] 1:15 PM HEALTH SYSTEM REPOSITORY TYPE CODE TESTS RESULT OUT OF RANGE REFERENCE UNITS LAB GFRFN(LOINC >60mL/min/1.73m ) 2 eGFR >60 Result Comment: If the patient is , multiply the result by 1.210. Performed By: #### GFR #### [place] [address] PROGRESS Observed: 03/08/2018 Status: COMPLETED Source: [place] 1:06 PM CLINIC OTHER CAMPUS REPOSITORY HNO ID: [id number] Author: Beata Marin Service: Cardiovascular Surgery Author [...] 1310 Peripherally Inserted (PICC) Right Arm 5.0 Bangladeshi 19 days Drain Indwelling Urinary Catheter 02/09/18 [...] Tests/Labs Ordered: 1. BMP SIGNATURE: Clementine Owen APRN.CNP PATIENT NAME: Jeffrey Cullen DATE: March 08, 2018 TIME: 4:43 PM PAGER/CONTACT #: [phone] ETX [phone] Patient seen yesterday with ELECTRICAL INSTRUMENTATION TECHNICIAN. Labs, data, and careplan reviewed. P-as ordered still undergoing neuro eval and still on vent. MRI THORACIC SPINE Observed: 03/08/2018 Status: F Source: [employer] [facility] 11:57 AM HEALTH SYSTEM REPOSITORY Performed at [facility] APPROVED BY: Jose Myles MD THORACIC SPINE [...] CERVICAL SPINE Observed: 03/08/2018 Status: F Source: [employer] [facility] 11:57 AM HEALTH SYSTEM REPOSITORY Performed at [facility] APPROVED BY: Jose Myles MD CERVICAL SPINE [...] above. PROGRESS Observed: 03/07/2018 Status: COMPLETED Source: [place] 5:26 PM CLINIC OTHER CAMPUS REPOSITORY HNO ID: [id number] Author: Paulette Aguilar Service: Critical Care Author [...] BALANCE Intake/Output Summary (Last 24 hours) at 03/07/18 1726 Last data filed at 03/07/18 1700 [...] 1310 Peripherally Inserted (PICC) Right Arm 5.0 Bangladeshi 18 days Drain Indwelling Urinary Catheter 02/09/18 0838 Temperature Monitoring 16 Fr 26 days GI Feed/Drain 02/22/18 1336 Gastrostomy-Jejunostomy (G-J) Abdomen 18 Fr 13 days Airway Airway Tracheostomy 02/22/18 13 days Respiratory/Nursing Documentation: O2 Therapy: Ventilator (03/07/181711) Invasive Ventilator Mode: Pressure Control Ventilation (03/07/181711) Set Ventilator Respiratory Rate (BPM): 15 (03/07/181711) Total Respiratory Rate (BPM): 20 (03/07/181711) Tidal Volume Set (mL): 550 (03/06/18 121) Exhaled Tidal Volume (mL): 807 (03/07/181711) Minute [...] CONSULT PROG Observed: 03/07/2018 Status: COMPLETED Source: [place] 12:10 PM CLINIC OTHER CAMPUS REPOSITORY HNO ID: [id number] Author: Guillermina Umana Service: Neurology Author Type: [...] 07, 2018 TIME: 12:10 PM PAGER/CONTACT #: [phone] THE NEURO ICU Evaluation f this pATIENT [...] AND ACTION(S) TAKEN Please see the documented rscltj-ob-tofrxs plan in the updated problem list. Guillermina Umana MD Staff, Neurointensive Care Neurological [place], [facility] Date of Service: 03/07/2018 Time of Service: 6:24 PM This is an electronically created document. If printed, please do not remove from the chart or modify printed copy. PROGRESS Observed: 03/07/2018 Status: COMPLETED Source: [place] 11:12 AM CLINIC OTHER CAMPUS REPOSITORY O ID: [id number] Author: Beata Marin Service: Cardiovascular Surgery Author [...] 1310 Peripherally Inserted (PICC) Right Arm 5.0 Bangladeshi 18 days Drain Indwelling Urinary Catheter 02/09/18 [...] ?? Dispo- await MRI SIGNATURE: Clementine Owen APRN.KARINE PATIENT NAME: Jeffrey Cullen DATE: March 07, 2018 TIME: 3:15 PM PAGER/CONTACT #: [phone] ETX [phone] Patient seen, labs, data, and careplan along with neuro recommendations reviewed with ELECTRICAL INSTRUMENTATION TECHNICIAN. P-continue same RX and follow neuro recs for eval. CASE MANAGEM Observed: 03/07/2018 Status: COMPLETED Source: [place] 10:01 AM [facility] OTHER CAMPUS REPOSITORY HNO ID: [id number] Author: Ale (Rn) ANGELINA Key Service: (none) Author Type: Registered Nurse Type: Care Mgt Progress Note Filed: 03/07/2018 10:15 AM Note Text: CARE MANAGEMENT PROGRESS NOTE SERVICE DATE: 03/07/2018 SERVICE TIME: .now LOS: 28 days Needs Prior to Discharge: Discharge Prescriptions;Transportation to Appointments [facility] at [facility] and can take Diprovan gtt. Update to jaime Bolaños today--noted neuro rec for mri (discussed with physician recruiter). Have inquired about narcotics at [facility] and WILL NOT NEED SCRIPTS. DId speak with sister Trev in [place] re [facility] spec and loc and is agreeable but questions about copay? Did provide her with liason name/no to inquire (no precert needed) Also concerned *wallet and car keys and cell phone and automotive mechanical engineer locked on unit and wants to be sure goes with him at [facility]. SIGNATURE: Ale Key RN PATIENT NAME: Jeffrey Cullen DATE: March 07, 2018 TIME: 10:01 AM PAGER/CONTACT #: [phone] [facility] Observed: 03/07/2018 Status: COMPLETED Source: [place] 9:31 AM CLINIC OTHER CAMPUS REPOSITORY HNO ID: [id number] Author: David Martin (Ex Phys) Service: Cardiovascular Testing Author Type: Line Repairer Tower Type: Allied Health Filed: 03/07/2018 9:32 AM Note Text: Cardiac Rehabilitation Patient Name: Jeffrey Cullen Admission Date: 02/07/2018 Date of Contact: March 07, 2018 Time of Contact: [phone] Jeffrey Cullen was seen post ACS/NC. Phase 2 order was found in [facility]. Provided brochure and information about outpatient Phase 2 Cardiac Rehab. Arnold Mullen PROGRESS Observed: 03/06/2018 Status: COMPLETED Source: [place] 5:16 PM CLINIC OTHER CAMPUS REPOSITORY HNO ID: [id number] Author: Paulette Aguilar Service: Pulmonary Disease Author Type: Physician Type: [...] 1310 Peripherally Inserted (PICC) Right Arm 5.0 Bangladeshi 17 days Drain Indwelling Urinary Catheter 02/09/18 0838 Temperature Monitoring 16 Fr 25 days GI Feed/Drain 02/22/18 1336 Gastrostomy-Jejunostomy (G-J) Abdomen 18 Fr 12 days Airway Airway Tracheostomy 02/22/18 12 days Respiratory/Nursing Documentation: O2 Therapy: Ventilator (03/06/181555) Invasive Ventilator Mode: Pressure Control Ventilation (changed by physician) (03/06/181555) Set Ventilator Respiratory Rate (BPM): 15 (03/06/181555) Total Respiratory Rate (BPM): 34 (04/09/18 1556) Tidal Volume Set (mL): 550 (03/06/18 1212) Exhaled Tidal Volume (mL): 636 (03/06/18 1556) Minute Volume (L): 17 (03/06/18 1556) Peak Inspiratory Pressure (cm H2O): 20 (03/06/18 1556) PEEP/CPAP (cm H2O): 5 (03/06/18 1556) PHYSICAL EXAMINATION: Constitutional: Vitals-reviewed and noted above. [...] regarding?the?goals of care,?medical plan for the day, hr business partner consultant recommendations, medical disposition and current medical [...] procedures. SIGNATURE: Paulette Aguilar MD [facility] PAGER:[phone] DATE of SERVICE: March 06, 2018 TIME of SERVICE: 5:16 PM CONSULT PROG Observed: 03/06/2018 Status: COMPLETED Source: [place] 4:46 PM CLINIC OTHER CAMPUS REPOSITORY HNO ID: [id number] Author: Guillermina Umana Service: Neurology Author Type: Physician Type: Consult Progress Note Filed: 03/06/2018 5:31 PM Note Text: NEUROLOGY CONSULT PROGRESS NOTE SERVICE DATE: 03/06/2018 SERVICE TIME: 1645 Current Attending Provider: Beata Mairn Subjective Interval History: Today, Jeffrey is not [...] Phos Recent Labs 03/06/18 0525 03/05/18 0915 03/04/18 0429 NA 140 -- 142 K 4.0 3.7 3.9 CHLOR 106 -- 105 CO2 29 -- 30 GLUC 112* -- 117* CA 8.0* -- 9.1 MG 2.4 -- -- Liver Function, Amylase, AND Lipase Recent Labs 03/06/18 0525 03/04/18 0429 TPROT 6.1* 7.2 ALB 2.0* 2.4* ALT [...] 06, 2018 TIME: 4:46 PM PAGER/CONTACT #: [phone] THE NEURO ICU MANAGEMENT OF THIS PATIENT [...] care d/w the NSICU resident, and SICU ELECTRICAL INSTRUMENTATION TECHNICIAN, and the bedside nurse. Our findings and [...] to r/o inflammation/infection. Please see the documented hhrnve-on-qplhpl plan in the updated problem list. Guillermina Umana MD Staff, Neurointensive Care [facility] [place] Date of Service: 03/06/2018 Time of Service: 5:24 PM This is an electronically created document. If printed, please do not remove from the chart or modify printed copy. CASE MANAGEM Observed: 03/06/2018 Status: COMPLETED Source: [place] 4:00 PM CLIN[facility] OTHER CAMPUS REPOSITORY HNO ID: [id number] Author: Angelica MoodyRn) ANGELINA Malcolm Service: Care Management Author Type: Registered Nurse Type: Care Mgt Progress Note Filed: 03/06/2018 4:01 PM Note Text: Plan is for [facility] at discharge, still with severe toxic encephalopathy, restlessness, cont to follow for dc needs. PROGRESS Observed: 03/06/2018 Status: COMPLETED Source: [place] 10:00 AM CLINIC OTHER CAMPUS REPOSITORY HNO ID: [id number] Author: Clementine Albrecht) Lexie Service: Cardiovascular Surgery Author Type: Nurse Practitioner [...] 1310 Peripherally Inserted (PICC) Right Arm 5.0 Bangladeshi 17 days Drain Indwelling Urinary Catheter 02/09/18 [...] appropriate to discharge. ?? SIGNATURE: Clementine Owen APRN.KARINE PATIENT NAME: Jeffrey Cullen DATE: March 06, 2018 TIME: 3:56 PM PAGER/CONTACT #: [phone] ETX [id number] NUTRITION Observed: 03/06/2018 Status: COMPLETED Source: [place] 9:48 AM CLINIC OTHER CAMPUS REPOSITORY HNO ID: [id number] Author: Sandra Almaguer RD Service: Nutrition Therapy [...] feeding and vent support, awaiting transfer to [facility]. ?BM 03/04/18. Neurology following ACTIVE PROBLEM LIST [...] March 06, 2018 TIME: 9:48 AM PAGER: [phone] CHEST 1 VIEW Observed: 03/06/2018 Status: F Source: [facility] [facility] 5:43 AM HEALTH SYSTEM REPOSITORY Performed at [facility] APPROVED BY: Ismael Marin MD EXAM TITLE: [...] appearance. HEMOGRAM Collected: 03/06/2018 Status: F Source: [facility] 5:25 AM HEALTH SYSTEM REPOSITORY TYPE CODE [...] MPV 10.1 Performed By: #### CBC1 #### [place] [address] VALPROIC ACID,RAND. Collected: 03/06/2018 Status: F Source: [facility] 5:25 AM HEALTH SYSTEM REPOSITORY TYPE CODE TESTS RESULT OUT OF REFERENCE UNITS RANGE LAB VALPR(LOINC 50-100 mg/L ) Low Valproic 29 Acid,[place]. Performed By: #### VALPR #### [place] [address] COMPREHENSIVE PANEL Collected: 03/06/2018 Status: F Source: [facility] 5:25 AM HEALTH SYSTEM REPOSITORY TYPE CODE [...] Blood 34 Performed By: #### P14 #### [facility] [address] [place] [address] MAGNESIUM BLOOD Collected: 03/06/2018 Status: F Source: [facility] 5:25 AM HEALTH SYSTEM REPOSITORY TYPE CODE TESTS RESULT OUT OF REFERENCE UNITS RANGE LAB MAG(LOINC) 1.6-2.6 mg/dL Magnesium Blood 2.4 Performed By: #### MAG #### [place] [address] MDRD GFR Collected: 03/06/2018 Status: F Source: [facility] 5:25 AM HEALTH SYSTEM REPOSITORY TYPE CODE TESTS RESULT OUT OF RANGE REFERENCE UNITS LAB GFRFN(LOINC >60mL/min/1.73m ) 2 eGFR >60 Result Comment: If the patient is , multiply the result by 1.210. Performed By: #### GFR #### [place] [address] PROGRESS Observed: 03/05/2018 Status: COMPLETED Source: [place] 7:41 PM CLINIC OTHER CAMPUS REPOSITORY O ID: [id number] Author: Carlos Hayward Service: Critical Care Author [...] Function, Amylase, AND Lipase Recent Labs 03/04/18 0429 03/03/18 0430 03/01/18 1607 TPROT 7.2 6.6 6.3* ALB 2.4* 2.3* 2.2* ALT 49 53 32 AST 31 39* 26 ALKPHOS 85 95 91 TBILI 0.5 0.4 0.4 DATA: Diagnostic tests reviewed for today's visit: Most recent labs and imaging results. Amm- 17 VPA level- 41 Impression/Recommendations Encephalopathy, multifactorial STAFF COORDINATION OF CRITICAL CARE [facility] Staff Physician note of personal involvement in [...] improved sleep hygiene Please see the documented igikst-fp-otusnb plan in the updated problem list. Carlos Hayward DO Staff, Neurointensive Care [facility] [place] Date of Service: 03/05/2018 Time of Service: 6:16 PM This is an electronically created document. If printed, please do not remove from the chart or modify printed copy. PROGRESS Observed: 03/05/2018 Status: COMPLETED Source: [place] 2:49 PM CLINIC OTHER CAMPUS REPOSITORY O ID: [id number] Author: eTn Gonsales Service: Pulmonary Disease Author Type: Physician [...] 1310 Peripherally Inserted (PICC) Right Arm 5.0 Bangladeshi 16 days Drain Indwelling Urinary Catheter 02/09/18 [...] 0920) Peak Inspiratory Pressure (cm H2O): 29 (03/05/181213) PEEP/CPAP (cm H2O): 5 (03/05/181213) HEMODYNAMIC DATA: reviewed CXR FINDINGS: OTHER IMAGING: [...] MG -- -- 2.1 ABG: Invalid input(s): [id number] Assessment/Plan PROBLEMS: acute (now chronic 3 weeks) [...] PM PROGRESS Observed: 03/05/2018 Status: COMPLETED Source: [place] 11:53 AM [facility] OTHER [place] REPOSITORY HNO ID: [id number] Author: Beata Marin Service: Thoracic Surgery Author Type: Physician Type: Progress Notes Filed: 03/05/2018 11:54 AM Note Text: Patient seen and clin course d/w bedside nurse. Still afib w some lower BP and lower HR on inc'd Cardizem. P-will dec cardizem and chk K+ PROGRESS Observed: 03/05/2018 Status: COMPLETED Source: [place] 11:46 AM [facility] OTHER [place] REPOSITORY HNO ID: [id number] Author: Misti Stein (Pa) Service: Cardiac Surgery Author Type: Physician Trade Economist Type: Progress Notes Filed: 03/05/2018 11:57 AM [...] 1310 Peripherally Inserted (PICC) Right Arm 5.0 Bangladeshi 15 days Drain Indwelling Urinary Catheter 02/09/18 [...] SIGNATURE: Misti Stein PA-C PATIENT NAME: Jeffrey Petersonoe DATE: March 05, 2018 TIME: 11:46 AM PAGER/CONTACT #:[phone] ETX [id number] POTASSIUM BLOOD Collected: 03/05/2018 Status: F Source: [facility] 9:15 AM HEALTH SYSTEM REPOSITORY TYPE CODE TESTS RESULT OUT OF REFERENCE UNITS RANGE LAB K(LOINC) 3.5-5.1 mEq/L Potassium Blood 3.7 Performed By: #### K #### [facility] [address] [place] [id number] VITAMIN B1, PLASMA Collected: 03/04/2018 Status: F Source: [facility] 2:00 PM HEALTH SYSTEM REPOSITORY TYPE CODE [...] stores. Test developed and characteristics determined by [facility]. See Compliance Statement B: [employer] Performed by [facility], [address] [place] [id number] [email or web address], [place] Infante MD, Lab. Director Performing Laboratory: Performed By: #### VITBX #### [place] [id number] CHEST 1 VIEW Observed: 03/04/2018 Status: F Source: [facility] 1:35 PM HEALTH SYSTEM REPOSITORY Performed at [facility] APPROVED BY: Efren Benson MD EXAM TITLE: [...] chest. PROGRESS Observed: 03/04/2018 Status: COMPLETED Source: [place] 12:13 PM CLINIC OTHER CAMPUS REPOSITORY HNO ID: [id number] Author: Beata Marin Service: Thoracic Surgery Author Type: Physician Type: Progress Notes Filed: 03/04/2018 12:15 PM Note Text: CT surg POD # 23 S-on vent w trach and G-J tube O-no x-rays today, labs noted A-stable/same P-as ordered PROGRESS Observed: 03/04/2018 Status: COMPLETED Source: [place] 9:27 AM CLINIC OTHER CAMPUS REPOSITORY HNO ID: [id number] Author: Krystal Valdez) Paul Service: Critical Care [...] Intake/Output Summary (Last 24 hours) at 03/04/18 09 Last data filed at 03/04/18 0555 Gross [...] 1310 Peripherally Inserted (PICC) Right Arm 5.0 Bangladeshi 14 days Drain Indwelling Urinary Catheter 02/09/18 [...] 15 (03/04/18906) Total Respiratory Rate (BPM): 22 (03/04/18350) Tidal Volume Set (mL): 550 (03/04/18906) Exhaled [...] 40 minutes excluding procedures. SIGNATURE: Krystal Miller APRN.CABINET ASSEMBLER PATIENT NAME: Jeffrey Cullen DATE: March 04, 2018 TIME: 9:27 AM PROGRESS Observed: 03/04/2018 Status: COMPLETED Source: [place] 8:59 AM [facility] OTHER CAMPUS REPOSITORY HNO ID: [id number] Author: Carlos Hayward Service: Neurology Author Type: [...] Coags, BMP, Mg, Phos Recent Labs 03/04/18 0429 03/03/18 0430 NA 142 140 K 3.9 4.0 CHLOR 105 106 CO2 30 31 GLUC 117* 99 CA 9.1 8.5 MG -- 2.1 Liver Function, Amylase, AND Lipase Recent Labs 03/04/18 0429 03/03/18 0430 03/01/18 1607 TPROT 7.2 6.6 6.3* ALB 2.4* 2.3* 2.2* ALT 49 53 32 AST 31 39* 26 ALKPHOS 85 95 91 TBILI 0.5 0.4 0.4 DATA: Diagnostic tests reviewed for today's visit: Most recent labs and imaging results. Amm- 17 VPA level- 41 Impression/Recommendations Encephalopathy ?no seizures noted on EEG; last reading / ?Ammonia elevation unlikely to be responsible for his encephalopathy- 17 today improved from 33 yesterday ? liver panel without acute findings ? Valproic acid to 500 mg q8h Unclear etiology Will check thiamine lvl and add on thiamine ? SIGNATURE: SANA RUSSELL PA-C PATIENT NAME: Jeffrey Cullen DATE: March 04, 2018 TIME: 8:59 AM PAGER/CONTACT #: [phone] THE NEURO ICU MANAGEMENT OF THIS PATIENT [...] * ==== STAFF COORDINATION OF CRITICAL CARE [facility] Staff Physician note of personal involvement in [...] check B1 level Please see the documented mghytj-wo-uociin plan in the updated problem list. Carlos Hayward DO Staff, Neurointensive Care [facility] [place] Date of Service: 03/04/2018 Time of Service: 3:16 PM This is an electronically created document. If printed, please do not remove from the chart or modify printed copy. PROGRESS Observed: 03/04/2018 Status: COMPLETED Source: [place] 8:48 AM CLINIC OTHER CAMPUS REPOSITORY HNO ID: [id number] Author: Ten Gonsales Service: Pulmonary Disease Author [...] 1310 Peripherally Inserted (PICC) Right Arm 5.0 Bangladeshi 14 days Drain Indwelling Urinary Catheter 02/09/18 [...] 53 MG -- 2.1 ABG: Invalid input(s): [id number] Assessment/Plan PROBLEMS: Patient Active Hospital Problem List: NSTEMI (non-ST elevated myocardial infarction) ([facility]LY [facility]) (02/07/2018) NSVT (nonsustained ventricular tachycardia) ([facility]) (02/08/2018) Nicotine use disorder, F17.2 (02/09/2018) Malnutrition of moderate degree ([facility]) (02/20/2018) acute (now chronic 3 weeks) respiratory [...] AM AMMONIA Collected: 03/04/2018 Status: F Source: [facility] 4:29 AM HEALTH SYSTEM REPOSITORY TYPE CODE TESTS RESULT OUT OF REFERENCE UNITS RANGE LAB DAVID(LOINC 11-32 umol/L ) Ammonia 17 Performed By: #### DAVID #### [place] [address] COMPREHENSIVE PANEL Collected: 03/04/2018 Status: F Source: [facility] 4:29 AM HEALTH SYSTEM REPOSITORY TYPE CODE [...] Gap 11 Performed By: #### P14 #### [place] [address] VALPROIC ACID,RAND. Collected: 03/04/2018 Status: F Source: [facility] 4:29 AM HEALTH SYSTEM REPOSITORY TYPE CODE TESTS RESULT OUT OF REFERENCE UNITS RANGE LAB VALPR(LOINC 50-100 mg/L ) Low Valproic 41 Acid,[place]. Performed By: #### VALPR #### [place] [address] MDRD GFR Collected: 03/04/2018 Status: F Source: [facility] 4:29 AM HEALTH SYSTEM REPOSITORY TYPE CODE TESTS RESULT OUT OF RANGE REFERENCE UNITS LAB GFRFN(LOINC >60mL/min/1.73m ) 2 eGFR >60 Result Comment: If the patient is , multiply the result by 1.210. Performed By: #### GFR #### [place] [address] PROGRESS Observed: 03/03/2018 Status: COMPLETED Source: [place] 11:19 PM CLINIC OTHER CAMPUS REPOSITORY HNO ID: [id number] Author: Paulette (Rn) ANGELINA Garibay Service: Critical Care Author Type: Registered Nurse Type: Progress Notes Filed: 03/03/2018 11:20 PM Note Text: Pt going in and out of A-fib RVR. Dr. Bae notified. PROGRESS Observed: 03/03/2018 Status: COMPLETED Source: [place] 8:00 PM [facility] REPOSITORY HNO ID: [id number] Author: Paulette MoodyRn) ANGELINA Garibay Service: Critical Care Author Type: Registered [...] minutes. PROGRESS Observed: 03/03/2018 Status: COMPLETED Source: [place] 1:55 PM [facility] REPOSITORY HNO ID: [id number] Author: Krystal Miller (Cns) Service: Critical Care [...] 1310 Peripherally Inserted (PICC) Right Arm 5.0 Bangladeshi 14 days Drain Indwelling Urinary Catheter 02/09/18 [...] ALT 53 MG 2.1 ABG: Invalid input(s): [id number] Assessment/Plan IMPRESSION: Critical Care Documentation: The patient [...] on EEG-Neurology follows 7. Plan transfer to [facility] soon 8. Persistent agitation-Propofol at 30 mcg/ [...] 40 minutes excluding procedures. SIGNATURE: Krystal Miller APRN.CABINET ASSEMBLER PATIENT NAME: Jeffrey Cullen DATE: March 03, 2018 TIME: 1:56 PM CASE MANAGEM Observed: 03/03/2018 Status: COMPLETED Source: [place] 12:55 PM CLINIC OTHER [place] REPOSITORY HNO ID: [id number] Author: Angelica MoodyRn) ANGELINA Malcolm Service: Care Management Author Type: Registered Nurse Type: Care Mgt Progress Note Filed: 03/03/2018 12:56 PM Note Text: Plan is for [facility], hopefully on Tuesday, Mami at [facility] aware of plan. PROGRESS Observed: 03/03/2018 Status: COMPLETED Source: [place] 11:25 AM [facility] OTHER [place] REPOSITORY HNO ID: [id number] Author: Beata Marin Service: Cardiovascular Surgery Author [...] 1310 Peripherally Inserted (PICC) Right Arm 5.0 Bangladeshi 13 days Drain Indwelling Urinary Catheter 02/09/18 [...] and Neuro teams. ? SIGNATURE: Clementine Owen APRN.CNP PATIENT NAME: Jeffrey Cullen DATE: March 03, 2018 TIME: 11:25 AM PAGER/CONTACT #: [phone] ETX [id number] Patient seen with ELECTRICAL INSTRUMENTATION TECHNICIAN, labs, data, and careplan reviewed w ELECTRICAL INSTRUMENTATION TECHNICIAN and bedside nurse. P-as ordered--not ready for [facility] yet? PROGRESS Observed: 03/03/2018 Status: COMPLETED Source: [place] 9:56 AM CLINIC OTHER CAMPUS REPOSITORY HNO ID: [id number] Author: Melissa Camacho Jr. Service: Neurology Author [...] results: Continuous video-EEG monitoring was reviewed from 5:22 to 18:10 on ? 03/02/18 and shows [...] 03, 2018 TIME: 9:56 AM PAGER/CONTACT #: [phone] [facility] STAFF PHYSICIAN NOTE OF PERSONAL INVOLVEMENT IN [...] PM PROGRESS Observed: 03/03/2018 Status: COMPLETED Source: [place] 9:32 AM [facility] REPOSITORY [facility] ID: [id number] Author: Ten Gonsales Service: Pulmonary Disease Author [...] 1310 Peripherally Inserted (PICC) Right Arm 5.0 Bangladeshi 13 days Drain Indwelling Urinary Catheter 02/09/18 [...] 15 (03/03/18824) Tidal Volume Set (mL): 550 (03/03/18340) Exhaled Tidal Volume (mL): 619 (03/03/18824) Minute Volume (L): 11.8 (03/03/18824) Peak Inspiratory Pressure (cm H2O): 24 (03/03/18824) [...] NH3 X3 ACCEPTABLE CBC NL Invalid input(s): [id number] CULTURES update: CXR FINDINGS: GOOD; NO NEED BRONCH OR TAP OTHER IMAGING: Assessment/Plan PROBLEMS: Patient Active Hospital Problem List: NSTEMI (non-ST elevated myocardial infarction) ([facility]) (02/07/2018) NSVT (nonsustained ventricular tachycardia) ([facility]) (02/08/2018) Nicotine use disorder, F17.2 (02/09/2018) Malnutrition of moderate degree ([facility]) (02/20/2018) acute (now chronic 3 weeks) respiratory [...] 1 VIEW Observed: 03/03/2018 Status: F Source: [facility] 6:04 AM HEALTH SYSTEM REPOSITORY Performed at [facility] APPROVED BY: Jerry Singh MD EXAMINATION: CHEST [...] devices. HEMOGRAM Collected: 03/03/2018 Status: F Source: [facility] 4:30 AM HEALTH SYSTEM REPOSITORY TYPE CODE [...] MPV 9.8 Performed By: #### CBC1 #### [place] [address] HEPATIC PANEL Collected: 03/03/2018 Status: F Source: [facility] 4:30 AM HEALTH SYSTEM REPOSITORY TYPE CODE [...] Bilirubin 0.20 Performed By: #### HEPAP #### [place] [address] VALPROIC ACID,RAND. Collected: 03/03/2018 Status: F Source: [facility] 4:30 AM HEALTH SYSTEM REPOSITORY TYPE CODE TESTS RESULT OUT OF REFERENCE UNITS RANGE LAB VALPR(LOINC 50-100 mg/L ) Low Valproic 29 Acid,[place]. Performed By: #### VALPR #### [place] [address] BASIC PANEL Collected: 03/03/2018 Status: F Source: [facility] 4:30 AM HEALTH SYSTEM REPOSITORY TYPE CODE [...] Gap 7 Performed By: #### P8 #### [place] [address] MAGNESIUM BLOOD Collected: 03/03/2018 Status: F Source: [facility] 4:30 AM HEALTH SYSTEM REPOSITORY TYPE CODE TESTS RESULT OUT OF REFERENCE UNITS RANGE LAB MAG(LOINC) 1.6-2.6 mg/dL Magnesium Blood 2.1 Performed By: #### MAG #### [place] [address] MDRD GFR Collected: 03/03/2018 Status: F Source: [facility] 4:30 AM HEALTH SYSTEM REPOSITORY TYPE CODE TESTS RESULT OUT OF RANGE REFERENCE UNITS LAB GFRFN(LOINC >60mL/min/1.73m ) 2 eGFR >60 Result Comment: If the patient is , multiply the result by 1.210. Performed By: #### GFR #### [place] [address] AMMONIA Collected: 03/03/2018 Status: F Source: [facility] 4:30 AM HEALTH SYSTEM REPOSITORY TYPE CODE TESTS RESULT OUT OF REFERENCE UNITS RANGE LAB DAVID(LOINC 11-32 umol/L ) High alert Ammonia 33 Performed By: #### DAVID #### [place] [address] PROGRESS Observed: 03/03/2018 Status: COMPLETED Source: [place] 3:42 AM [facility] REPOSITORY HNO ID: [id number] Author: Paulette MoodyRn) ANGELINA Garibay Service: Critical Care Author Type: Registered Nurse Type: Progress Notes Filed: 03/03/2018 3:45 AM Note Text: Pt spitting up small amount of brown liquid. Tube feed stopped. Dr. Marie notified. GLUCOSE METER Collected: 03/03/2018 Status: F Source: [facility] 12:03 AM HEALTH SYSTEM REPOSITORY TYPE CODE TESTS RESULT OUT OF REFERENCE UNITS RANGE LAB GLUBL(LOINC 70-99 mg/dL ) High Glucose Meter 114 Performed By: #### GLMET #### [place] [address] PROGRESS Observed: 03/02/2018 Status: COMPLETED Source: [place] 9:15 PM [facility] REPOSITORY HNO ID: [id number] Author: Paulette Johnson) ANGELINA Garibay Service: Critical Care Author Type: Registered Nurse Type: Progress Notes Filed: 03/02/2018 9:19 PM Note Text: While RT conducting vent weaning trial, pt RR increased to 44, SpO2 decreased to 94%, and pt had 9 beat run of V-tach vs RVR (HR of 120). Respiratory called to bedside stop vent weaning trial. NUTRITION Observed: 03/02/2018 Status: COMPLETED Source: [place] 2:32 PM [facility] REPOSITORY HNO ID: [id number] Author: Sandra Almaguer RD Service: Nutrition Therapy [...] feeding and vent support, awaiting transfer to [facility]. BM 03/02. Present Diet Order: NPO and [...] lb) 12/04/07 : 100.2 kg (221 lb) [place] Body Weight: 78.2kg Resting Metabolic Rate: 1897 Estimated kilocalorie needs: 0070-7267?kilocalories determined by 25-30?kcal/kg ideal body weight Estimated protein needs: 102-133?grams determined by 1.3-1.7 g/kg?[place]?weight Estimated fluid needs: 7588-5702?milliliters based on 1 mL per kcal NUTRITION [...] March 02, 2018 TIME: 2:33 PM PAGER: [phone] PROGRESS Observed: 03/02/2018 Status: COMPLETED Source: [place] 1:11 PM CLINIC OTHER CAMPUS REPOSITORY HNO ID: [id number] Author: Ten Gonsales Service: Pulmonary Disease Author [...] 1310 Peripherally Inserted (PICC) Right Arm 5.0 Bangladeshi 13 days Drain Indwelling Urinary Catheter 02/09/18 [...] well unsedated Respiratory/Nursing Documentation: O2 Therapy: Ventilator (03/02/181221) Invasive Ventilator Mode: Pressure Support Ventilation;Continuous Positive Airway Pressure (03/02/181221) Set Ventilator Respiratory Rate (BPM): 15 (03/02/18815) Total Respiratory Rate (BPM): 16 (03/02/181221) Tidal Volume Set (mL): 550 (03/02/18815) Exhaled Tidal Volume (mL): 641 (03/02/18 122) Minute Volume (L): 7.7 (03/02/181221) Peak Inspiratory Pressure (cm H2O): 17 (03/02/18 [...] 26 MG -- 1.9 ABG: Invalid input(s): [id number] Assessment/Plan PROBLEMS: Patient Active Hospital Problem List: NSTEMI (non-ST elevated myocardial infarction) ([facility]) (02/07/2018) NSVT (nonsustained ventricular tachycardia) ([facility]) (02/08/2018) Nicotine use disorder, F17.2 (02/09/2018) Malnutrition of moderate degree ([facility]) (02/20/2018) acute (now chronic 3 weeks) respiratory [...] PM PROGRESS Observed: 03/02/2018 Status: COMPLETED Source: [place] 11:40 AM CLINIC OTHER CAMPUS REPOSITORY O ID: [id number] Author: Beata Marin Service: Cardiovascular Surgery Author [...] 1310 Peripherally Inserted (PICC) Right Arm 5.0 Banglades[place] 13 days Drain Indwelling Urinary Catheter 02/09/18 [...] AND Eliquis Dispo- to be discharged to [facility] once EEG is complete and tolerating new sedation regimen. Tests/Labs Ordered: 1. BMP 2. CBC SIGNATURE: Clementine Owen APRN.CAMP ASSISTANT PATIENT NAME: Jeffrey Cullen DATE: March 02, 2018 TIME: 3:54 PM PAGER/CONTACT #: [phone] ETX [phone] Patient seen yesterday with ELECTRICAL INSTRUMENTATION TECHNICIAN and labs, data, medication changes, and careplan reviewed. AMMONIA Collected: 03/02/2018 Status: F Source: [facility] 10:18 AM HEALTH SYSTEM REPOSITORY TYPE CODE TESTS RESULT OUT OF REFERENCE UNITS RANGE LAB DAVID(LOINC 11-32 umol/L ) High alert Ammonia 37 Performed By: #### DAVID #### [place] [address] Observed: 03/02/2018 Status: F Source: [facility] 9:44 AM HEALTH SYSTEM RESPIRATORY REPOSITORY Test performed at [facility] Few normal oropharyngeal shannan No WBC seen Few Gram negative bacilli Rare Gram positive cocci ORGANISM: Escherichia coli (ID: 1) Moderate ORGANISM: Klebsiella oxytoca (ID: 2) Moderate Performed By: #### C_RES #### [place] [address] CASE MANAGEM Observed: 03/02/2018 Status: COMPLETED Source: [place] 8:59 AM CLINIC OTHER CAMPUS REPOSITORY HNO ID: [id number] Author: Angelica MoodyRn) ANGELINA Malcolm Service: Care Management Author Type: Registered Nurse Type: Care Mgt Progress Note Filed: 03/02/2018 9:02 AM Note Text: Spoke with Gwen, [facility] Liaison, [facility] able to accept today, but have only four available beds at this time, Aida Lai aware, can take pt on Propofol. PROGRESS Observed: 03/02/2018 Status: COMPLETED Source: [place] 7:00 AM CLINIC OTHER CAMPUS REPOSITORY HNO ID: [id number] Author: Manuel Peace MD Service: Neurology Author Type: Resident Type: Progress Notes Filed: 03/02/2018 7:13 AM Note Text: Attestation signed by Melissa Camacho Jr. at 03/02/2018 4:00 PM [facility] STAFF PHYSICIAN NOTE OF PERSONAL INVOLVEMENT IN [...] PROGRESS NOTE SERVICE DATE: 03/02/2018 SERVICE TIME: 700 Objective DETAILED REVIEW VITAL SIGNS (last 24hrs [...] epilepticus or?metabolic abnormality could also be considered. / No improvement after change in medications, now [...] 02, 2018 TIME: 7:01 AM PAGER/CONTACT #: [phone] VALPROIC ACID,RAND. Collected: 03/02/2018 Status: F Source: [facility] 3:50 AM HEALTH SYSTEM REPOSITORY TYPE CODE TESTS RESULT OUT OF REFERENCE UNITS RANGE LAB VALPR(LOINC 50-100 mg/L ) Low Valproic 28 Acid,[place]. Performed By: #### VALPR #### [place] [address] AMMONIA Collected: 03/02/2018 Status: F Source: [facility] 3:50 AM HEALTH SYSTEM REPOSITORY TYPE CODE TESTS RESULT OUT OF REFERENCE UNITS RANGE LAB DAVID(LOINC 11-32 umol/L ) High alert Ammonia 43 Performed By: #### DAVID #### [place] [address] HEPATIC PANEL Collected: 03/01/2018 Status: F Source: [facility] 4:07 PM HEALTH SYSTEM REPOSITORY TYPE CODE [...] Bilirubin 0.25 Performed By: #### HEPAP #### [facility] [address] [place] [address] PROGRESS Observed: 03/01/2018 Status: COMPLETED Source: [facility] [facility] 10:35 AM CLINIC OTHER CAMPUS REPOSITORY HNO ID: [id number] Author: Clementine Owen Service: Cardiovascular Surgery Author [...] 1310 Peripherally Inserted (PICC) Right Arm 5.0 Bangl[place] 11 days Drain Indwelling Urinary Catheter 02/09/18 [...] ?? Constipation -c/w miralax and senokot-s. -Dulcolax GA today Moderate Protein-Calorie Malnutrition -s/p G-J tube -c/w tube feeds. -dc Reglan as residuals low and increased risk of prolonged QTc with seroquel. ?? DVT ppx -SCDs AND Eliquis SIGNATURE: Clementine Owen APRN.CAMP ASSISTANT PATIENT NAME: Jeffrey Cullen DATE: March 01, 2018 TIME: 10:35 AM PAGER/CONTACT #: [phone] [phone] PROGRESS Observed: 03/01/2018 Status: COMPLETED Source: [place] 8:37 AM CLINIC OTHER CAMPUS REPOSITORY HNO ID: [id number] Author: Ten Gonsales Service: Pulmonary Disease Author [...] 1310 Peripherally Inserted (PICC) Right Arm 5.0 Bangladeshi 11 days Drain Indwelling Urinary Catheter 02/09/18 [...] ALT 26 MG 1.9 ABG: Invalid input(s): [id number] Assessment/Plan PROBLEMS: Patient Active Hospital Problem List: NSTEMI (non-ST elevated myocardial infarction) ([facility]) (02/07/2018) NSVT (nonsustained ventricular tachycardia) ([facility]) (02/08/2018) Nicotine use disorder, F17.2 (02/09/2018) Malnutrition of moderate degree ([facility]) (02/20/2018) acute respiratory failure with trach, prolonged [...] Post pyloric TF well 4. Tried psv 09/01 weans, did ok , not sure why [...] BLOOD GAS Collected: 03/01/2018 Status: F Source: [facility] 6:24 AM HEALTH SYSTEM REPOSITORY TYPE CODE [...] Venous 90.7 Performed By: #### VBG #### [place] [address] HEMOGRAM/DIFF Collected: 03/01/2018 Status: F Source: [facility] 6:24 AM HEALTH SYSTEM REPOSITORY TYPE CODE [...] 1.64 LAB MONON(LOIN 0.30-0.82 thou/cmm C) Abs. [place] 0.49 LAB EOSN(LOINC 0.04-0.54 thou/cmm ) Abs. Eosin 0.23 LAB BASON(LOIN 0.01-0.08 thou/cmm C) Abs. Baso 0.04 Performed By: #### CBCD1 #### [place] [address] AMMONIA Collected: 03/01/2018 Status: F Source: [facility] 6:24 AM HEALTH SYSTEM REPOSITORY TYPE CODE TESTS RESULT OUT OF REFERENCE UNITS RANGE LAB DAVID(LOINC 11-32 umol/L ) High alert Ammonia 38 Performed By: #### DAVID #### [place] [address] BASIC PANEL Collected: 03/01/2018 Status: F Source: [facility] 6:24 AM HEALTH SYSTEM REPOSITORY TYPE CODE [...] Gap 8 Performed By: #### P8 #### [facility] [address] [place] [address] MAGNESIUM BLOOD Collected: 03/01/2018 Status: F Source: [facility] 6:24 AM HEALTH SYSTEM REPOSITORY TYPE CODE TESTS RESULT OUT OF REFERENCE UNITS RANGE LAB MAG(LOINC) 1.6-2.6 mg/dL Magnesium Blood 1.9 Performed By: #### MAG #### [place] [address] HEPATIC PANEL Collected: 03/01/2018 Status: F Source: [facility] 6:24 AM HEALTH SYSTEM REPOSITORY TYPE CODE [...] Bilirubin 0.22 Performed By: #### HEPAP #### [place] [address] MDRD GFR Collected: 03/01/2018 Status: F Source: [facility] 6:24 AM HEALTH SYSTEM REPOSITORY TYPE CODE TESTS RESULT OUT OF RANGE REFERENCE UNITS LAB GFRFN(LOINC >60mL/min/1.73m ) 2 eGFR >60 Result Comment: If the patient is , multiply the result by 1.210. Performed By: #### GFR #### [place] [address] CONSULT PROG Observed: 02/28/2018 Status: COMPLETED Source: [place] 3:07 PM CLINIC OTHER CAMPUS REPOSITORY HNO ID: [id number] Author: Melissa Camacho Jr. Service: Neurology Author [...] 28, 2018 TIME: 3:08 PM PAGER/CONTACT #: [phone] Late entry attestation pt was physically seen yesterday not today. [facility] STAFF PHYSICIAN NOTE OF PERSONAL INVOLVEMENT IN [...] PM AMMONIA Collected: 02/28/2018 Status: F Source: [facility] 2:58 PM HEALTH SYSTEM REPOSITORY TYPE CODE TESTS RESULT OUT OF REFERENCE UNITS RANGE LAB DAVID(LOINC 11-32 umol/L ) Ammonia 28 Performed By: #### DAVID #### [place] [address] HEPATIC PANEL Collected: 02/28/2018 Status: F Source: [facility] 2:58 PM HEALTH SYSTEM REPOSITORY TYPE CODE [...] Bilirubin 0.29 Performed By: #### HEPAP #### [facility] [address] [place] [address] VITAMIN B12 Collected: 02/28/2018 Status: F Source: [facility] 2:58 PM HEALTH SYSTEM REPOSITORY TYPE CODE TESTS RESULT OUT OF REFERENCE UNITS RANGE LAB B12(LOINC) 193-986 pg/mL Vitamin B12 914 Performed By: #### B12 #### [facility] [address] [place] [address] TSH, 3RD GENERATION Collected: 02/28/2018 Status: F Source: [facility] 2:58 PM HEALTH SYSTEM REPOSITORY TYPE CODE TESTS RESULT OUT OF REFERENCE UNITS RANGE LAB TSH3(LOINC 0.358-3.740 uIU/mL ) TSH, 3rd generation 0.579 Performed By: #### TSH3 #### [facility] [address] [place] [address] TOTAL 25-OH VITAMIN Collected: 02/28/2018 Status: F Source: [facility] D 2:58 PM HEALTH SYSTEM REPOSITORY TYPE CODE TESTS RESULT OUT OF REFERENCE UNITS RANGE LAB 25VD1(LOINC 30.0-100.0 ng/mL ) Low Total 25-OH 27.5 Vitamin D Performed By: #### 25VD1 #### [facility] [address] [place] [address] PROGRESS Observed: 02/28/2018 Status: COMPLETED Source: [place] 11:14 AM CLINIC OTHER CAMPUS REPOSITORY O ID: [id number] Author: Ten Gonsales Service: Pulmonary Disease Author [...] 1310 Peripherally Inserted (PICC) Right Arm 5.0 Bangladeshi 10 days Drain Indwelling Urinary Catheter 02/09/18 [...] CO2 27 CA 8.3* ABG: Invalid input(s): [id number] Assessment/Plan PROBLEMS: Patient Active Hospital Problem List: NSTEMI (non-ST elevated myocardial infarction) ([facility]) (02/07/2018) NSVT (nonsustained ventricular tachycardia) ([facility]) (02/08/2018) Nicotine use disorder, F17.2 (02/09/2018) Malnutrition of moderate degree ([facility]) (02/20/2018) acute respiratory failure with trach, prolonged [...] Updated No Discussed with Staff Yes, cTS liquid hydrogen plant operator, RT, RN Time spent providing critical care services: 35 minutes excluding billable procedures. SIGNATURE: Ten Gonsales MD PATIENT NAME: Jeffrey Cullen DATE: February 28, 2018 TIME: 11:14 AM PROGRESS Observed: 02/28/2018 Status: COMPLETED Source: [place] 11:00 AM CLINIC OTHER CAMPUS REPOSITORY HNO ID: [id number] Author: Beata Marin Service: Cardiovascular Surgery Author [...] 1310 Peripherally Inserted (PICC) Right Arm 5.0 Bangladeshi 11 days Drain Indwelling Urinary Catheter 02/09/18 [...] ppx -SCDs AND Eliquis SIGNATURE: Clementine Owen APRN.CAMP ASSISTANT PATIENT NAME: Jeffrey Cullen DATE: February 28, 2018 TIME: 3:33 PM PAGER/CONTACT #: [phone] Patient seen, labs, data, MRI results, and careplan reviewed with ELECTRICAL INSTRUMENTATION TECHNICIAN earlier today in CVICU. CHEST 1 VIEW Observed: 02/28/2018 Status: F Source: [facility] 6:28 AM HEALTH SYSTEM REPOSITORY Performed at [facility] APPROVED BY: Melissa Youngblood MD Exam: Portable [...] NURSING PROG Observed: 02/27/2018 Status: COMPLETED Source: [place] 11:15 PM CLINIC OTHER CAMPUS REPOSITORY HNO ID: [id number] Author: Arvind (Rn) ANGELINA Jenkins Service: Nursing Author Type: Registered Nurse Type: Nursing Progress Note Filed: 02/28/2018 2:06 AM Note Text: Nursing Progress Note Patient Name: Jeffrey Cullen Patient Location: [place] [address]/[facility]* Daily Note: Transported pt to MRI with RN, RT, and 2x transporters at [...] BRAIN W/O Observed: 02/27/2018 Status: F Source: [facility] 9:45 PM HEALTH SYSTEM REPOSITORY Performed at [facility] APPROVED BY: Jerry Singh MD EXAMINATION: MRI BRAIN WITHOUT CONTRAST, MRA NECK WITHOUT CONTRAST, MRA BRAIN WITHOUT CONTRAST HISTORY: Encephalopathy. Status post coronary artery bypass graft surgery on 02/09/2018. TECHNIQUE: Routine noncontrast MRI protocol including diffusion and gradient echo images. Intracranial and extracranial 3D psye-fw-ydiieh MRA with 2D multiplanar and 3D maximum [...] BRAIN W/O Observed: 02/27/2018 Status: F Source: [facility] 9:45 PM HEALTH SYSTEM REPOSITORY Performed at [facility] APPROVED BY: Jerry Singh MD EXAMINATION: MRI BRAIN WITHOUT CONTRAST, MRA NECK WITHOUT CONTRAST, MRA BRAIN WITHOUT CONTRAST HISTORY: Encephalopathy. Status post coronary artery bypass graft surgery on 02/09/2018. TECHNIQUE: Routine noncontrast MRI protocol including diffusion and gradient echo images. Intracranial and extracranial 3D goak-gj-dsrqbh MRA with 2D multiplanar and 3D maximum [...] W/O CONTRAST Observed: 02/27/2018 Status: F Source: [facility] 9:45 PM HEALTH SYSTEM REPOSITORY Performed at [facility] APPROVED BY: Jerry Singh MD EXAMINATION: MRI BRAIN WITHOUT CONTRAST, MRA NECK WITHOUT CONTRAST, MRA BRAIN WITHOUT CONTRAST HISTORY: Encephalopathy. Status post coronary artery bypass graft surgery on 02/09/2018. TECHNIQUE: Routine noncontrast MRI protocol including diffusion and gradient echo images. Intracranial and extracranial 3D kxzd-pk-zbwyzk MRA with 2D multiplanar and 3D maximum [...] CASE MANAGEM Observed: 02/27/2018 Status: COMPLETED Source: [place] 4:46 PM [facility] REPOSITORY HNO ID: [id number] Author: Ale (Rn) ANGELINA Key Service: (none) Author Type: Registered Nurse [...] 27, 2018 TIME: 4:46 PM PAGER/CONTACT #: [phone] PROGRESS Observed: 02/27/2018 Status: COMPLETED Source: [place] 1:16 PM [facility] REPOSITORY HNO ID: [id number] Author: Ten Gonsales Service: Pulmonary Disease Author [...] 1310 Peripherally Inserted (PICC) Right Arm 5.0 Banglades[place] 10 days Drain Indwelling Urinary Catheter 02/09/18 [...] attempt Respiratory/Nursing Documentation: O2 Therapy: Ventilator (02/27/18 122) Invasive Ventilator Mode: Pressure Regulated Volume Control (02/27/181221) Set Ventilator Respiratory Rate (BPM): 15 (02/27/18 122) Total Respiratory Rate (BPM): 15 (02/27/18 122) Tidal Volume Set (mL): 550 (02/27/18 122) Exhaled Tidal Volume (mL): 876 (02/27/18 122) Minute Volume (L): 9.4 (02/27/18 122) Peak Inspiratory Pressure (cm H2O): 12 (02/27/18 122) PEEP/CPAP (cm H2O): 12 (02/27/181221) HEMODYNAMIC DATA: reviewed NUTRITION: Enteral Feeds: VENT: [...] CO2 27 CA 8.3* ABG: Invalid input(s): [id number] Assessment/Plan PROBLEMS: Patient Active Hospital Problem List: NSTEMI (non-ST elevated myocardial infarction) ([facility]) (02/07/2018) NSVT (nonsustained ventricular tachycardia) ([facility]) (02/08/2018) Nicotine use disorder, F17.2 (02/09/2018) Malnutrition of moderate degree (HCC) (02/20/2018) acute respiratory failure with trach Met [...] 3. Post pyloric TF 4. Tried psv 09/01 weans, did ok 5. Discussed with pharm [...] PM PROGRESS Observed: 02/27/2018 Status: COMPLETED Source: [place] 12:32 PM CLINIC OTHER CAMPUS REPOSITORY HNO ID: [id number] Author: Clementine Owen Service: Cardiovascular Surgery Author [...] 1310 Peripherally Inserted (PICC) Right Arm 5.0 Banglades[place] 10 days Drain Indwelling Urinary Catheter 02/09/18 [...] APRN.CNP PATIENT NAME: Jeffrey Cullen DATE: February 27, 2018 TIME: 2:20 PM PAGER/CONTACT #: [phone] NUTRITION Observed: 02/27/2018 Status: COMPLETED Source: [place] 9:35 AM CLINIC OTHER CAMPUS REPOSITORY HNO ID: [id number] Author: Sandra Almaguer RD Service: Nutrition Therapy [...] feeding and vent support, awaiting transfer to [facility]. ACTIVE PROBLEM LIST Inguinal Hernia Without Mention [...] SIGNATURE: Sandra Almaguer RD, AMINA PATIENT NAME: Jeffrye Cullen DATE: February 27, 2018 TIME: 9:35 AM PAGER: [phone] PROGRESS Observed: 02/27/2018 Status: COMPLETED Source: [place] 9:09 AM [facility] OTHER CAMPUS REPOSITORY O ID: [id number] Author: Krystal Miller (Cns) Service: Critical Care [...] 1310 Peripherally Inserted (PICC) Right Arm 5.0 Bangladeshi 9 days Drain Indwelling Urinary Catheter 02/09/18 [...] 40 minutes excluding procedures. SIGNATURE: Krystal Miller APRN.CABINET ASSEMBLER PATIENT NAME: Jeffrey Cullen DATE: February 27, 2018 TIME: 9:09 AM GLUCOSE METER Collected: 02/27/2018 Status: F Source: [facility] 5:50 AM HEALTH SYSTEM REPOSITORY TYPE CODE TESTS RESULT OUT OF REFERENCE UNITS RANGE LAB GLUBL(LOINC 70-99 mg/dL ) Glucose Meter 98 Result Comment: RN NOTIFIED Performed By: #### GLMET #### [place] [address] HEMOGRAM Collected: 02/27/2018 Status: F Source: [facility] 4:00 AM HEALTH SYSTEM REPOSITORY TYPE CODE [...] MPV 10.5 Performed By: #### CBC1 #### [facility] [address] [place] [address] BASIC PANEL Collected: 02/27/2018 Status: F Source: [facility] 4:00 AM HEALTH SYSTEM REPOSITORY TYPE CODE [...] Gap 9 Performed By: #### P8 #### [place] [address] MDRD GFR Collected: 02/27/2018 Status: F Source: [facility] 4:00 AM HEALTH SYSTEM REPOSITORY TYPE CODE TESTS RESULT OUT OF RANGE REFERENCE UNITS LAB GFRFN(LOINC >60mL/min/1.73m ) 2 eGFR >60 Result Comment: If the patient is , multiply the result by 1.210. Performed By: #### GFR #### [facility] [address] [place], [place] [address] GLUCOSE METER Collected: 02/26/2018 Status: F Source: [facility] 6:49 PM HEALTH SYSTEM REPOSITORY TYPE CODE TESTS RESULT OUT OF REFERENCE UNITS RANGE LAB GLUBL(LOINC 70-99 mg/dL ) High Glucose Meter 129 Result Comment: RN NOTIFIED Performed By: #### GLMET #### [place] [address] GLUCOSE METER Collected: 02/26/2018 Status: F Source: [facility] 11:58 AM HEALTH SYSTEM REPOSITORY TYPE CODE TESTS RESULT OUT OF REFERENCE UNITS RANGE LAB GLUBL(LOINC 70-99 mg/dL ) High Glucose Meter 113 Result Comment: RN NOTIFIED Performed By: #### GLMET #### [facility] [address] [place] [address] BASIC PANEL Collected: 02/26/2018 Status: F Source: [facility] 10:10 AM HEALTH SYSTEM REPOSITORY TYPE CODE [...] Gap 7 Performed By: #### P8 #### [place] [address] MDRD GFR Collected: 02/26/2018 Status: F Source: [facility] 10:10 AM HEALTH SYSTEM REPOSITORY TYPE CODE TESTS RESULT OUT OF RANGE REFERENCE UNITS LAB GFRFN(LOINC >60mL/min/1.73m ) 2 eGFR >60 Result Comment: If the patient is , multiply the result by 1.210. Performed By: #### GFR #### [place] [address] PROGRESS Observed: 02/26/2018 Status: COMPLETED Source: [place] 9:53 AM CLINIC OTHER CAMPUS REPOSITORY HNO ID: [id number] Author: Evans Parkinson Service: Cardiac Surgery Author [...] 1310 Peripherally Inserted (PICC) Right Arm 5.0 Bangladeshi 8 days Drain Indwelling Urinary Catheter 02/09/18 [...] CHLOR -- 114* 115* -- CO2 -- 26 29 -- BUN -- 22* 22* -- [...] 2018 TIME: 9:53 AM PAGER/CONTACT #: [phone] GLUCOSE METER Collected: 02/26/2018 Status: F Source: [facility] 5:45 AM HEALTH SYSTEM REPOSITORY TYPE CODE TESTS RESULT OUT OF REFERENCE UNITS RANGE LAB GLUBL(LOINC 70-99 mg/dL ) Glucose Meter 92 Result Comment: RN NOTIFIED Performed By: #### GLMET #### [facility] [address] [place] [address] HEMOGRAM Collected: 02/26/2018 Status: F Source: [facility] 4:10 AM HEALTH SYSTEM REPOSITORY TYPE CODE [...] MPV 10.3 Performed By: #### CBC1 #### [facility] [address] [place] [id number] PROGRESS Observed: 02/26/2018 Status: COMPLETED Source: [place] 12:17 AM CLINIC OTHER CAMPUS REPOSITORY O ID: [id number] Author: Keon Chance Service: Pulmonary Disease Author [...] As Recurrent) Nstemi (Non-St Elevated Myocardial Infarction) ([facility]) Nsvt (Nonsustained Ventricular Tachycardia) ([facility]) Nicotine use disorder, F17.2 Malnutrition of Moderate Degree ([facility]) Subjective OVERNIGHT EVENTS: Patient is [...] Ventilator Mode: Pressure Regulated Volume Control (02/25/18 2337) %FIO2: 41 Set Ventilator Respiratory Rate (BPM): [...] dilTIAZem 100 mg in D5W 100 mL ADD-Nokomis (CARDIZEM) 5 mg/hr INTRAVENOUS CONTINUOUS metoprolol tartrate [...] As Recurrent) Nstemi (Non-St Elevated Myocardial Infarction) ([facility]) Nsvt (Nonsustained Ventricular Tachycardia) ([facility]) Nicotine use disorder, F17.2 Malnutrition of Moderate Degree ([facility]) S/P CABG, POD # 17 Acute exacerbation [...] services: 21 minutes. SIGNATURE: Keon Chance MD [facility] PAGER:[phone] DATE of SERVICE: February 26, 2018 TIME of SERVICE: 12:17 AM NURSING PROG Observed: 02/25/2018 Status: COMPLETED Source: [place] 6:20 PM CLINIC OTHER CAMPUS REPOSITORY HNO ID: [id number] Author: Darcy (Rn) ANGELINA Oleary Service: Nursing Author Type: Registered Nurse Type: Nursing Progress Note Filed: 02/25/2018 6:49 PM Note Text: Pt. Very agitated. Thrashing around bed. Kicking legs over the side of the bed. Pulled up in bed and repositioned in bed per 3 nurses. Medicated at noted. GLUCOSE METER Collected: 02/25/2018 Status: F Source: [facility] 5:58 PM HEALTH SYSTEM REPOSITORY TYPE CODE TESTS RESULT OUT OF REFERENCE UNITS RANGE LAB GLUBL(LOINC 70-99 mg/dL ) High Glucose Meter 107 Result Comment: RN NOTIFIED Performed By: #### GLMET #### [place] [address] LEVEL 1 DEPT VISIT/EST Observed: 02/25/2018 Status: F Source: [facility] MRI 12:55 PM HEALTH SYSTEM REPOSITORY Performed at [facility] APPROVED BY: Oumar Luque MD EXAM TITLE: ATTEMPTED MRI DATE: 02/25/2018 12:55 TECHNIQUE: The patient was scheduled for an MRI. The patient was unable to cooperate for the exam. IMPRESSION: The MRI was not performed. GLUCOSE METER Collected: 02/25/2018 Status: F Source: [facility] 12:03 PM HEALTH SYSTEM REPOSITORY TYPE CODE TESTS RESULT OUT OF REFERENCE UNITS RANGE LAB GLUBL(LOINC 70-99 mg/dL ) High Glucose Meter 111 Result Comment: RN NOTIFIED Performed By: #### GLMET #### [place] [address] PROGRESS Observed: 02/25/2018 Status: COMPLETED Source: [place] 11:08 AM CLINIC OTHER CAMPUS REPOSITORY O ID: [id number] Author: Evans Parkinson Service: Cardiac Surgery Author [...] 1310 Peripherally Inserted (PICC) Right Arm 5.0 Bangladeshi 7 days Drain Indwelling Urinary Catheter 02/09/18 [...] 2018 TIME: 11:08 AM PAGER/CONTACT #: [phone] CHEST 1 VIEW Observed: 02/25/2018 Status: F Source: [facility] 6:10 AM HEALTH SYSTEM REPOSITORY Performed at [facility] APPROVED BY: Chan Fernandez MD Portable frontal [...] noted. HEMOGRAM Collected: 02/25/2018 Status: F Source: [facility] 5:31 AM HEALTH SYSTEM REPOSITORY TYPE CODE [...] MPV 10.4 Performed By: #### CBC1 #### [facility] [address] [place] [address] BASIC PANEL Collected: 02/25/2018 Status: F Source: [facility] 5:31 HEALTH SYSTEM REPOSITORY TYPE CODE TESTS RESULT [...] Gap 9 Performed By: #### P8 #### [facility] [address] [place], [place] [address] MDRD GFR Collected: 02/25/2018 Status: F Source: [facility] 5:31 AM HEALTH SYSTEM REPOSITORY TYPE CODE TESTS RESULT OUT OF RANGE REFERENCE UNITS LAB GFRFN(LOINC >60mL/min/1.73m ) 2 eGFR >60 Result Comment: If the patient is , multiply the result by 1.210. Performed By: #### GFR #### [facility] [address] [place], [place] [address] GLUCOSE METER Collected: 02/25/2018 Status: F Source: [facility] 5:13 AM HEALTH SYSTEM REPOSITORY TYPE CODE TESTS RESULT OUT OF REFERENCE UNITS RANGE LAB GLUBL(LOINC 70-99 mg/dL ) High Glucose Meter 108 Result Comment: RN NOTIFIED Performed By: #### GLMET #### [facility] [address] [place] [address] PROGRESS Observed: 02/25/2018 Status: COMPLETED Source: [place] 1:14 AM CLINIC OTHER CAMPUS REPOSITORY HNO ID: [id number] Author: Keon Chance Service: Pulmonary Disease Author [...] Degree (Hcc) Subjective OVERNIGHT EVENTS: Patient is currently resting [...] Ventilator Mode: Pressure Regulated Volume Control (02/24/18 2344) %FIO2: 40 Set Ventilator Respiratory Rate (BPM): [...] dilTIAZem 100 mg in D5W 100 mL ADD-Nokomis (CARDIZEM) 5 mg/hr INTRAVENOUS CONTINUOUS metoprolol tartrate [...] 98.8* 96.3* 96.4* 98.1* BMP: Recent Labs 02/24/1841002/23/18 1738 02/23/180 02/22/18 18402/22/18 0430 02/21/18 0515 02/20/18 0610 02/19/18 0550 [...] 0.73 0.84 0.80 0.88 CHEM: Recent Labs 02/24/1841002/23/18 0230 02/22/18 18402/22/18 0430 02/21/18 0515 02/20/18 0610 02/19/18 0550 [...] Moderate Degree (Hcc) S/P CABG, POD # 16 Acute exacerbation [...] services: 35 minutes. SIGNATURE: Keon Chance MD [facility] PAGER:[phone] DATE of SERVICE: February 25, 2018 TIME of SERVICE: 1:14 AM GLUCOSE METER Collected: 02/25/2018 Status: F Source: [facility] 12:10 AM HEALTH SYSTEM REPOSITORY TYPE CODE TESTS RESULT OUT OF REFERENCE UNITS RANGE LAB GLUBL(LOINC 70-99 mg/dL ) High Glucose Meter 105 Result Comment: RN NOTIFIED Performed By: #### GLMET #### [place] [address] GLUCOSE METER Collected: 02/24/2018 Status: F Source: [facility] 5:40 PM HEALTH SYSTEM REPOSITORY TYPE CODE TESTS RESULT OUT OF REFERENCE UNITS RANGE LAB GLUBL(LOINC 70-99 mg/dL ) Glucose Meter 98 Result Comment: RN NOTIFIED Performed By: #### GLMET #### [facility] [address] [place], [place] [address] PROGRESS Observed: 02/24/2018 Status: COMPLETED Source: [place] 1:19 PM CLINIC OTHER CAMPUS REPOSITORY HNO ID: [id number] Author: Evans Parkinson Service: Cardiac Surgery Author [...] 1310 Peripherally Inserted (PICC) Right Arm 5.0 Bangladeshi 7 days Drain Indwelling Urinary Catheter 02/09/18 [...] Chest X-ray 2. CBC 3. CMP SIGNATURE: Misit Stein PA-C PATIENT NAME: Jeffrey Cullen DATE: February 24, 2018 TIME: 1:20 PM PAGER/CONTACT #:[phone] ETX [phone] Attending Note I have personally performed a face to face assessment of the patient and have reviewed the PA/TUBE BUILDER AIRPLANE note. My hernandez findings include: as above; I have requested MRI brain for diagnosis and prognostic information in light of continued severe delirium, lack of purposeful movement. Other additions or changes: None Signature: Evans Parkinson MD Date: 02/24/2018 Time: 5:28 PM CASE MANAGEM Observed: 02/24/2018 Status: COMPLETED Source: [place] 1:10 PM [facility] OTHER [place] REPOSITORY HNO ID: [id number] Author: Angelica Johnson) ANGELINA Malcolm Service: Care Management Author Type: Registered Nurse Type: Care Mgt Progress Note Filed: 02/24/2018 1:11 PM Note Text: Intubated, s/p trach and J-G tube 02/22, on Diltiazem gtt, [facility] referral made, no precert required. Cont to follow for assist with dc planning. GLUCOSE METER Collected: 02/24/2018 Status: F Source: [facility] 11:44 AM HEALTH SYSTEM REPOSITORY TYPE CODE TESTS RESULT OUT OF REFERENCE UNITS RANGE LAB GLUBL(LOINC 70-99 mg/dL ) High Glucose Meter 102 Result Comment: RN NOTIFIED Performed By: #### GLMET #### [place] [address] PROGRESS Observed: 02/24/2018 Status: COMPLETED Source: [place] 10:57 AM [facility] OTHER [place] REPOSITORY HNO ID: [id number] Author: Maxx Marie Service: Pulmonary Disease Author [...] As Recurrent) Nstemi (Non-St Elevated Myocardial Infarction) ([facility]) Nsvt (Nonsustained Ventricular Tachycardia) ([facility]) Nicotine use disorder, F17.2 Malnutrition [...] dilTIAZem 100 mg in D5W 100 mL ADD-Nokomis (CARDIZEM) 5 mg/hr INTRAVENOUS CONTINUOUS metoprolol tartrate [...] 1310 Peripherally Inserted (PICC) Right Arm 5.0 Bangladeshi 6 days Drain Indwelling Urinary Catheter 02/09/18 [...] (02/24/18799) Set Ventilator Respiratory Rate (BPM): 15 (02/24/18 08) Total Respiratory Rate (BPM): 28 (02/24/18 08) Tidal Volume Set (mL): 550 (02/24/18 08) Exhaled Tidal Volume (mL): 531 (02/24/18 08) Minute Volume (L): 14.1 (02/24/18 08) Peak Inspiratory Pressure (cm H2O): 12 (02/24/18799) PEEP/CPAP (cm H2O): 5 (02/24/18 08) HEMODYNAMIC DATA: Reviewed NUTRITION: Enteral Feeds: No [...] 8.0* MG -- 2.4 ABG: Invalid input(s): [id number] Assessment/Plan IMPRESSION: Critical Care Documentation: The patient [...] GLUCOSE METER Collected: 02/24/2018 Status: F Source: [facility] 5:19 AM HEALTH SYSTEM REPOSITORY TYPE CODE TESTS RESULT OUT OF REFERENCE UNITS RANGE LAB GLUBL(LOINC 70-99 mg/dL ) High Glucose Meter 103 Performed By: #### GLMET #### [facility] [address] [place] [address] HEMOGRAM Collected: 02/24/2018 Status: F Source: [facility] 4:11 AM HEALTH SYSTEM REPOSITORY TYPE CODE [...] MPV 10.2 Performed By: #### CBC1 #### [place] [address] BASIC PANEL Collected: 02/24/2018 Status: F Source: [facility] 4:11 AM HEALTH SYSTEM REPOSITORY TYPE CODE [...] Gap 6 Performed By: #### P8 #### [place] [address] MDRD GFR Collected: 02/24/2018 Status: F Source: [facility] 4:11 AM HEALTH SYSTEM REPOSITORY TYPE CODE TESTS RESULT OUT OF RANGE REFERENCE UNITS LAB GFRFN(LOINC >60mL/min/1.73m ) 2 eGFR >60 Result Comment: If the patient is , multiply the result by 1.210. Performed By: #### GFR #### [facility] [address] [place] [address] GLUCOSE METER Collected: 02/23/2018 Status: F Source: [facility] 11:23 PM HEALTH SYSTEM REPOSITORY TYPE CODE TESTS RESULT OUT OF REFERENCE UNITS RANGE LAB GLUBL(LOINC 70-99 mg/dL ) High Glucose Meter 109 Performed By: #### GLMET #### [facility] [address] [place] [address] GLUCOSE METER Collected: 02/23/2018 Status: F Source: [facility] 5:48 PM HEALTH SYSTEM REPOSITORY TYPE CODE TESTS RESULT OUT OF REFERENCE UNITS RANGE LAB GLUBL(LOINC 70-99 mg/dL ) Glucose Meter 95 Result Comment: RN NOTIFIED Performed By: #### GLMET #### [facility] [address] [place] [address] SODIUM BLOOD Collected: 02/23/2018 Status: F Source: [facility] 5:38 PM HEALTH SYSTEM REPOSITORY TYPE CODE TESTS RESULT OUT OF REFERENCE UNITS RANGE LAB NA(LOINC) 136-145 mEq/L High Sodium Blood 147 Performed By: #### NA #### [facility] [address] [place] [address] GLUCOSE METER Collected: 02/23/2018 Status: F Source: [facility] 4:26 PM HEALTH SYSTEM REPOSITORY TYPE CODE TESTS RESULT OUT OF REFERENCE UNITS RANGE LAB GLUBL(LOINC 70-99 mg/dL ) High Glucose Meter 100 Performed By: #### GLMET #### [place] [address] NUTRITION Observed: 02/23/2018 Status: COMPLETED Source: [facility] 2:38 PM CLINIC OTHER CAMPUS REPOSITORY O ID: [id number] Author: Sandra Almaguer RD Service: Nutrition Therapy [...] dilTIAZem 100 mg in D5W 100 mL ADD-Nokomis (CARDIZEM) 5 mg/hr INTRAVENOUS CONTINUOUS metoprolol tartrate [...] Type: Initial Assess/15 min 3 units SIGNATURE: Sanrda Almaguer RD, LD PATIENT NAME: Jeffrey Cullen DATE: February 23, 2018 TIME: 2:38 PM PAGER: [phone] CASE MANAGEM Observed: 02/23/2018 Status: COMPLETED Source: [place] 11:18 AM CLINIC OTHER CAMPUS REPOSITORY HNO ID: [id number] Author: Tessa Johnson) ANGELINA Maldonado Service: Care Management Author Type: Registered Nurse Type: Care Mgt Progress Note Filed: 02/23/2018 11:22 AM Note Text: CARE MANAGEMENT PROGRESS NOTE SERVICE DATE: 02/23/2018 SERVICE TIME: 11:18 AM LOS: 16 days Chart reviewed. Patient remains in CVICU. On vent, trach and PEG placed 02/22. Spoke with Andrade Hidalgo [phone], [facility] able to accept patient on Diprivan and Propofol drips. Patient does not need precert prior to DC. Discussed with Dr. Marin and Dr. Marie. Continue to follow to assist with transitional needs. SIGNATURE: Tessa Maldonado RN PATIENT NAME: Jeffrey Cullen DATE: February 23, 2018 TIME: 11:18 AM PAGER/CONTACT #: [phone] GLUCOSE METER Collected: 02/23/2018 Status: F Source: [facility] 11:16 AM HEALTH SYSTEM REPOSITORY TYPE CODE TESTS RESULT OUT OF REFERENCE UNITS RANGE LAB GLUBL(LOINC 70-99 mg/dL ) High Glucose Meter 104 Performed By: #### GLMET #### [place] [address] PROGRESS Observed: 02/23/2018 Status: COMPLETED Source: [place] 10:57 AM CLINIC OTHER CAMPUS REPOSITORY O ID: [id number] Author: Misti Stein (Pa) Service: Cardiac Surgery Author Type: Physician Trade Economist Type: Progress Notes Filed: 02/23/2018 11:26 AM [...] 1310 Peripherally Inserted (PICC) Right Arm 5.0 Bangladeshi 5 days Drain Indwelling Urinary Catheter 02/09/18 [...] 23, 2018 TIME: 10:58 AM PAGER/CONTACT #: [phone] PROGRESS Observed: 02/23/2018 Status: COMPLETED Source: [place] 9:52 AM CLINIC OTHER CAMPUS REPOSITORY O ID: [id number] Author: Maxx Marie Service: Pulmonary Disease Author [...] dilTIAZem 100 mg in D5W 100 mL ADD-Nokomis (CARDIZEM) 5 mg/hr INTRAVENOUS CONTINUOUS metoprolol tartrate [...] 1310 Peripherally Inserted (PICC) Right Arm 5.0 Bangladeshi 5 days Drain Indwelling Urinary Catheter 02/09/18 [...] 8.0* MG -- 2.4 ABG: Invalid input(s): [id number] Assessment/Plan IMPRESSION: Critical Care Documentation: The patient [...] 1 VIEW Observed: 02/23/2018 Status: F Source: [facility] 9:18 AM HEALTH SYSTEM REPOSITORY Performed at [facility] APPROVED BY: Tonia Washburn MD EXAM TITLE: [...] infiltrate. PROGRESS Observed: 02/23/2018 Status: COMPLETED Source: [place] 9:00 AM CLINIC OTHER CAMPUS REPOSITORY O ID: [id number] Author: Krystal Miller (Cns) Service: Critical Care [...] dilTIAZem 100 mg in D5W 100 mL ADD-Nokomis (CARDIZEM) 5 mg/hr INTRAVENOUS CONTINUOUS metoprolol tartrate [...] 1310 Peripherally Inserted (PICC) Right Arm 5.0 Bangladeshi 5 days Drain Indwelling Urinary Catheter 02/09/18 [...] 8.0* MG -- 2.4 ABG: Invalid input(s): [id number] Assessment/Plan IMPRESSION: Critical Care Documentation: The patient [...] 35 minutes excluding procedures. SIGNATURE: Krystal Miller APRN.CNS PATIENT NAME: Jeffrey Cullen DATE: February 23, 2018 TIME: 9:00 AM PROGRESS Observed: 02/23/2018 Status: COMPLETED Source: [place] 8:38 AM CLINIC OTHER CAMPUS REPOSITORY HNO ID: [id number] Author: Christofer Barajas Service: Otolaryngology Author Type: [...] GLUCOSE METER Collected: 02/23/2018 Status: F Source: [facility] 5:26 AM HEALTH SYSTEM REPOSITORY TYPE CODE TESTS RESULT OUT OF REFERENCE UNITS RANGE LAB GLUBL(LOINC 70-99 mg/dL ) High Glucose Meter 107 Performed By: #### GLMET #### [facility] [address] [place], [place] [address] HEMOGRAM Collected: 02/23/2018 Status: F Source: [facility] 2:30 AM HEALTH SYSTEM REPOSITORY TYPE CODE [...] MPV 10.3 Performed By: #### CBC1 #### [facility] [address] [place] [address] BASIC PANEL Collected: 02/23/2018 Status: F Source: [facility] 2:30 AM HEALTH SYSTEM REPOSITORY TYPE CODE [...] Gap 10 Performed By: #### P8 #### [facility] [address] [place] [address] MDRD GFR Collected: 02/23/2018 Status: F Source: [facility] 2:30 AM HEALTH SYSTEM REPOSITORY TYPE CODE TESTS RESULT OUT OF RANGE REFERENCE UNITS LAB GFRFN(LOINC >60mL/min/1.73m ) 2 eGFR >60 Result Comment: If the patient is , multiply the result by 1.210. Performed By: #### GFR #### [facility] [address] [place] [address] GLUCOSE METER Collected: 02/23/2018 Status: F Source: [facility] 12:11 AM HEALTH SYSTEM REPOSITORY TYPE CODE TESTS RESULT OUT OF REFERENCE UNITS RANGE LAB GLUBL(LOINC 70-99 mg/dL ) High Glucose Meter 108 Result Comment: RN NOTIFIED Performed By: #### GLMET #### [place] [address] BASIC PANEL Collected: 02/22/2018 Status: F Source: [facility] 6:45 PM HEALTH SYSTEM REPOSITORY TYPE CODE [...] Gap 9 Performed By: #### P8 #### [place] [address] MDRD GFR Collected: 02/22/2018 Status: F Source: [facility] 6:45 PM HEALTH SYSTEM REPOSITORY TYPE CODE TESTS RESULT OUT OF RANGE REFERENCE UNITS LAB GFRFN(LOINC >60mL/min/1.73m ) 2 eGFR >60 Result Comment: If the patient is , multiply the result by 1.210. Performed By: #### GFR #### [facility] [address] [place], [place] [address] MAGNESIUM BLOOD Collected: 02/22/2018 Status: F Source: [facility] 6:45 PM HEALTH SYSTEM REPOSITORY TYPE CODE TESTS RESULT OUT OF REFERENCE UNITS RANGE LAB MAG(LOINC) 1.6-2.6 mg/dL Magnesium Blood 2.4 Performed By: #### MAG #### [facility] [address] [place], [place] [address] ANES POST Observed: 02/22/2018 Status: COMPLETED Source: [place] 5:49 PM CLINIC OTHER CAMPUS REPOSITORY HNO ID: [id number] Author: Carlos Monroe Service: Anesthesiology Author Type: [...] #: PROGRESS Observed: 02/22/2018 Status: COMPLETED Source: [place] 5:48 PM CLINIC OTHER CAMPUS REPOSITORY HNO ID: [id number] Author: Prasanna Carbajal Service: Pulmonary Disease Author [...] As Recurrent) Nstemi (Non-St Elevated Myocardial Infarction) ([facility]) Nsvt (Nonsustained Ventricular Tachycardia) ([facility]) Nicotine use disorder, F17.2 Malnutrition of Moderate Degree ([facility]) No past medical history on [...] (LOPRESSOR) 100 mg ORAL q 8 H [MAR Hold due to Transfer] dexmedetomidine 400 mcg in NaCl 0.9% 100 mL (PRECEDEX) 0.2-0.7 mcg/kg/hr INTRAVENOUS CONTINUOUS [MAR Hold due to Transfer] diltiazem 30 mg tab(s) (CARDIZEM) 30 mg NASOGASTRIC q 6 H [MAR Hold due to Transfer] 0.9% NaCl 20 mL 20 mL INTRAVENOUS PRN [MAR Hold due to Transfer] 0.9% NaCl 10 mL 10 mL INTRAVENOUS q 12 H [MAR Hold due to Transfer] 0.9% NaCl 20 mL 20 mL INTRAVENOUS PRN [MAR Hold due to Transfer] aspirin 162 mg chewable tab(s) 162 mg ORAL DAILY [MAR Hold due to Transfer] enoxaparin 105 mg injection (LOVENOX) 1 mg/kg/dose SUBCUTANEOUS q 12 HR [MAR Hold due to Transfer] fentaNYL iv infusion 20 mcg/mL in NaCl 0.9% 100 mL 25 mcg/hr INTRAVENOUS CONTINUOUS [MAR Hold due to Transfer] nystatin 5 mL oral liquid (MYCOSTATIN) 5 mL ORAL QID [MAR Hold due to Transfer] metoclopramide HCl 10 mg injection (REGLAN) 10 mg INTRAVENOUS q 6 H [MAR Hold due to Transfer] LORazepam 2 mg injection (ATIVAN) 2 mg INTRAVENOUS q 4 H PRN [MAR Hold due to Transfer] dextrose 40 % 15 g 15 g ORAL PRN Or [MAR Hold due to Transfer] glucagon 1 mg injection (GLUCAGEN) 1 mg INTRAMUSCULAR PRN Or [JAN Hold due to Transfer] dextrose 50% in water 25 mL syringe 12.5 g INTRAVENOUS PRN [MAR Hold due to Transfer] insulin regular human injection (short acting) (NovoLIN R,HumuLIN R) SUBCUTANEOUS q 6 H [MAR Hold due to Transfer] bisacodyl 10 [...] 100 mL 1 g INTRAVENOUS PRN(NO DISPENSE) [JAN Hold due to Transfer] oxyCODONE-acetaminophen 5-325 mg 1-2 tablet (PERCOCET) 1-2 tablet ORAL q 4 H PRN [MAR Hold due to Transfer] morphine 2-4 mg injection 2-4 mg INTRAVENOUS q 1 H PRN [JAN Hold due to Transfer] pantoprazole 40 mg injection (PROTONIX) 40 mg INTRAVENOUS DAILY (6 AM) [JAN Hold due to Transfer] ondansetron (PF) 4 mg injection (ZOFRAN) 4 mg INTRAVENOUS q 6 H PRN [JAN Hold due to Transfer] propofol infusion (DIPRIVAN) 5- 50 mcg/kg/min INTRAVENOUS CONTINUOUS [JAN Hold due to Transfer] ipratropium-albuterol 3 mL nebulizer solution (DUONEB) 3 mL INHALATION q 4 H [JAN Hold due to Transfer] atorvastatin 40 mg tab(s) (LIPITOR) 40 mg ORAL AT BEDTIME Lines, Drains, and Airways Line Central Line Double Lumen 02/17/18 1310 Peripherally Inserted (PICC) Right Arm 5.0 Bangladeshi 5 days Drain GI Feed/Drain 02/09/18 0800 [...] H2O): 14 (02/22/181703) PEEP/CPAP (cm H2O): 5 (02/22/18 1704) HEMODYNAMIC DATA: Reviewed DATA: Diagnostic tests reviewed [...] GLUCOSE METER Collected: 02/22/2018 Status: F Source: [facility] 5:47 PM HEALTH SYSTEM REPOSITORY TYPE CODE TESTS RESULT OUT OF REFERENCE UNITS RANGE LAB GLUBL(LOINC 70-99 mg/dL ) High Glucose Meter 108 Result Comment: RN NOTIFIED Performed By: #### GLMET #### [place] [address] BRIEF OP NOT Observed: 02/22/2018 Status: COMPLETED Source: [place] 5:06 PM CLINIC OTHER CAMPUS REPOSITORY HNO ID: [id number] Author: Christofer Barajas Service: Otolaryngology Author Type: Physician Type: Brief Op Note Filed: 02/22/2018 5:11 PM Note Text: BRIEF OPERATIVE / PROCEDURE NOTE LOG ID: [id number] Surgery/Procedure Date: 02/22/2018 Incision/Procedure Start Time: 4:43 PM Incision Close/Procedure End Time: Surgeon(s)/Proceduralist(s) and Trade Economist(s): Surgeon(s) and Role: * Christofer Barajas - Primary Reinforcing Metal Worker: Flaco Akhtar SA Pre-Op/Pre-Procedure Diagnosis: Acute respiratory failure with hypoxia (HCC) [J96.01] Post-Op/Post-Procedure Diagnosis: Acute respiratory failure with hypoxia (HCC) [J96.01] Anesthesia/Procedure(s): Procedure(s) and Anesthesia Type: * TRACHEOSTOMY ADULT - General Findings: c/w dx Estimated Blood Loss: 0 ml Drains: Yes, 60 XLTCP cannula Specimens: None Complications: None Dictation: # [id number] SIGNATURE: Christofer Barajas MD PATIENT NAME: Jeffrey Cullen DATE: February 22, 2018 TIME: 5:06 PM ANES PREOP Observed: 02/22/2018 Status: COMPLETED Source: [place] 4:39 PM [facility] OTHER CAMPUS REPOSITORY O ID: [id number] Author: Beata Marin Service: Anesthesiology Author Type: [...] 143/78 Pulse: 64 62 64 65 Resp: Temp: TempSrc: SpO2: 96% 97% 98% 98% [...] 30 mg NASOGASTRIC q 6 H Beata Marin 30 mg at 02/22/18 0537 [MAR Hold [...] 10 mg INTRAVENOUS q 6 H Keon Kakarala 10 mg at 02/22/18 1157 [MAR Hold due to Transfer] LORazepam 2 mg injection (ATIVAN) 2 mg INTRAVENOUS q 4 H PRN Msiti (Pa) Berkley 2 mg at 02/22/18 0915 [MAR Hold due to Transfer] dextrose 40 % 15 g 15 g ORAL PRN Clementine (Karine) Lexie Or [MAR Hold due to Transfer] glucagon 1 mg injection (GLUCAGEN) 1 mg INTRAMUSCULAR PRN Clementine (Karine) Lexie Or [MAR Hold due to Transfer] dextrose 50% in water 25 mL syringe 12.5 g INTRAVENOUS PRN Clementine (Karine) Lexie [MAR Hold due to Transfer] insulin regular human injection (short acting) (NovoLIN R,HumuLIN R) SUBCUTANEOUS q 6 H Clementine Owen 2 Units at 02/20/18 1151 [MAR Hold [...] tablet (SENNA-S) 1 tablet ORAL BID Misti (Keon) Berkley 1 tablet at 02/21/18 2107 [MAR Hold due to Transfer] pill splitter (patient-specific) 1 Each Miscell. (Med.Supl.;Non-Drugs) PRN Saundra Enriquez (Pharmacist) [MAR Hold due to Transfer] Chlorhexidine Gluconate 0.12 % 15 mL (PERIDEX) 15 mL ORAL q 12 H Elkin Rex Decoy 15 mL at 02/22/18 1006 [MAR Hold due to Transfer] budesonide 0.5 mg/2 mL 1 mg (PULMICORT) 1 mg INHALATION BID Elkin Rex Decoy 1 mg at 02/22/18 0838 [MAR [...] 100 mL 20 mEq INTRAVENOUS PRN Clementine (Karine) Lexie 20 mEq at 02/20/18 1049 [MAR [...] mL 1 g INTRAVENOUS PRN(NO DISPENSE) Clementine (Karine) Lexie [MAR Hold due to Transfer] oxyCODONE-acetaminophen 5-325 mg 1-2 tablet (PERCOCET) 1-2 tablet ORAL q 4 H PRN Clementine (Karine) Lexie 2 tablet at 02/21/18 2310 [MAR Hold due to Transfer] morphine 2-4 mg injection 2-4 mg INTRAVENOUS q 1 H PRN Clementine (Karine) Lexie 4 mg at 02/16/18 0445 [MAR Hold due to Transfer] pantoprazole 40 mg injection (PROTONIX) 40 mg INTRAVENOUS DAILY (6 AM) Clementine (Manager Council) Lexie 40 mg at 02/22/18 0538 [MAR Hold due to Transfer] ondansetron (PF) 4 mg injection (ZOFRAN) 4 mg INTRAVENOUS q 6 H PRN Clementine (Karine) Lexie [MAR Hold due to Transfer] propofol infusion (DIPRIVAN) 5- 50 mcg/kg/min INTRAVENOUS CONTINUOUS Elkin Goodman Decoy Last Rate: 6.34 mL/hr at 02/22/18 1200 9.997 mcg/kg/min at 02/22/18 1200 [MAR Hold due to Transfer] ipratropium-albuterol 3 mL nebulizer solution (DUONEB) 3 mL INHALATION q 4 H Elkin Rex Decoy 3 mL at 02/22/18 1149 [MAR Hold due to Transfer] atorvastatin 40 mg tab(s) (LIPITOR) 40 mg ORAL AT BEDTIME Choco Godoy (Res) Nasser 40 mg at 02/21/182106 Allergies: ALLERGIES No Known Allergies DOS EXAM: [...] February 22, 2018 TIME: 4:39 PM CSN: [id number] Opened by mistake. PROGRESS Observed: 02/22/2018 Status: COMPLETED Source: [place] 4:21 PM CLINIC OTHER CAMPUS REPOSITORY HNO ID: [id number] Author: Beata Marin Service: Cardiac Surgery Author [...] 1310 Peripherally Inserted (PICC) Right Arm 5.0 Bangladeshi 5 days Drain GI Feed/Drain 02/09/18 0800 [...] February 22, 2018 TIME: 4:21 PM PAGER/CONTACT #:[phone] Patient seen. careplan reviewed w For trach today. P-continue current mgmnt. CASE MANAGEM Observed: 02/22/2018 Status: COMPLETED Source: [place] 3:40 PM CLINIC OTHER CAMPUS REPOSITORY HNO ID: [id number] Author: Angelica (Rn) ANGELINA Malcolm Service: Care Management Author Type: Registered Nurse Type: Care Mgt Progress Note Filed: 02/22/2018 3:41 PM Note Text: Referral made to [facility], s/p G-J tube, plan to trach later today, will update [facility]. PERC PLACEMENT G-TUBE Observed: 02/22/2018 Status: F Source: [facility] [id number] 2:42 PM HEALTH SYSTEM REPOSITORY Performed at [facility] APPROVED BY: ELAINE SWEENEY MD PROCEDURE: ULTRASOUND [...] advanced into the gastric lumen. A 5 Bangladeshi vascular sheath was then plac ed. Combination of 5 Bangladeshi 65 cm length angled catheter and stiff Glidewire were then advanced into the proximal jejunum. Following sequential fascial dilation, a 22 Bangladeshi peel-away sheath was place d and a 18 Bangladeshi balloon retention gastrojejunostomy tube was advanced via [...] ultrasound and fluoroscopic guided placement of 18 Bangladeshi, 45 cm length JONATHON balloon retention gastrojejunostomy tube with tube tip at the proximal jejunum. IMPRESSION: Successful placement of a 18 Bangladeshi percutaneous gastrojejunostomy tube as described. Plan for patient to remain nothing by mouth overnight and to start tube feeds tomorrow if no clinical signs of peritonitis. BRIEF OP NOT Observed: 02/22/2018 Status: COMPLETED Source: [place] 2:27 PM [facility] REPOSITORY [facility] ID: [id number] Author: Elaine Sweeney Service: Radiology Author Type: Physician Type: Brief Op Note Filed: 02/22/2018 2:28 PM Note Text: INTERVENTIONAL RADIOLOGY POST PROCEDURE NOTE DATE: 02/22/18 NAME: Jeffrey Cullen LOG ID: [id number] Pre-Procedure Diagnosis: S/p CABG, encephalopathy, respiratory failure. Need for prolonged enteral nutrition. Post Procedure Diagnosis: Same. Office Assistant Receptionist: Dr. Elaine Sweeney Procedure: US/fluoroscopic guided percutaneous gastrojejunostomy tube placement Anesthesia: Procedural Sedation Findings: Successful placement of 18 Bangladeshi percutaneous gastrojejunostomy tube with tip in the [...] ABDOMEN W/O Observed: 02/22/2018 Status: F Source: [facility] 12:25 PM HEALTH SYSTEM REPOSITORY Performed at [facility] APPROVED BY: Efren Benson MD EXAMINATION: CT [...] GLUCOSE METER Collected: 02/22/2018 Status: F Source: [facility] 11:59 AM HEALTH SYSTEM REPOSITORY TYPE CODE TESTS RESULT OUT OF REFERENCE UNITS RANGE LAB GLUBL(LOINC 70-99 mg/dL ) Glucose Meter 94 Performed By: #### GLMET #### [place] [address] CASE MANAGEM Observed: 02/22/2018 Status: COMPLETED Source: [place] 11:25 AM [facility] OTHER CAMPUS REPOSITORY HNO ID: [id number] Author: Chandni (Specialist) John Service: Care Management Author Type: (none) Type: Care Mgt Progress Note Filed: 02/22/2018 11:25 AM Note Text: LTAC referral created to: [facility]. Awaiting acceptance. PROGRESS Observed: 02/22/2018 Status: COMPLETED Source: [place] 11:08 AM [facility] REPOSITORY HNO ID: [id number] Author: Keon Chance Service: Pulmonary Disease Author [...] As Recurrent) Nstemi (Non-St Elevated Myocardial Infarction) ([facility]) Nsvt (Nonsustained Ventricular Tachycardia) ([facility]) Nicotine use disorder, F17.2 Malnutrition of Moderate Degree ([facility]) Subjective OVERNIGHT EVENTS: Patient is [...] As Recurrent) Nstemi (Non-St Elevated Myocardial Infarction) ([facility]) Nsvt (Nonsustained Ventricular Tachycardia) ([facility]) Nicotine use disorder, F17.2 Malnutrition of Moderate Degree ([facility]) S/P CABG, POD # 13 Acute exacerbation [...] services: 39 minutes. SIGNATURE: Keon Chance MD [facility] PAGER:[phone] DATE of SERVICE: February 22, 2018 TIME of SERVICE: 11:09 AM CHEST 1 VIEW Observed: 02/22/2018 Status: F Source: [facility] 5:59 AM HEALTH SYSTEM REPOSITORY Performed at [facility] APPROVED BY: Maximilian Pantoja MD EXAMINATION: CHEST [...] GLUCOSE METER Collected: 02/22/2018 Status: F Source: [facility] 5:35 AM HEALTH SYSTEM REPOSITORY TYPE CODE TESTS RESULT OUT OF REFERENCE UNITS RANGE LAB GLUBL(LOINC 70-99 mg/dL ) High Glucose Meter 113 Performed By: #### GLMET #### [place] [address] HEMOGRAM Collected: 02/22/2018 Status: F Source: [facility] 4:30 AM HEALTH SYSTEM REPOSITORY TYPE CODE [...] MPV 10.5 Performed By: #### CBC1 #### [facility] [address] [place] [address] BASIC PANEL Collected: 02/22/2018 Status: F Source: [facility] 4:30 AM HEALTH SYSTEM REPOSITORY TYPE CODE [...] Gap 9 Performed By: #### P8 #### [place] [address] MDRD GFR Collected: 02/22/2018 Status: F Source: [facility] 4:30 AM HEALTH SYSTEM REPOSITORY TYPE CODE TESTS RESULT OUT OF RANGE REFERENCE UNITS LAB GFRFN(LOINC >60mL/min/1.73m ) 2 eGFR >60 Result Comment: If the patient is , multiply the result by 1.210. Performed By: #### GFR #### [facility] [address] [place] [address] GLUCOSE METER Collected: 02/22/2018 Status: F Source: [facility] 12:01 AM HEALTH SYSTEM REPOSITORY TYPE CODE TESTS RESULT OUT OF REFERENCE UNITS RANGE LAB GLUBL(LOINC 70-99 mg/dL ) High Glucose Meter 110 Result Comment: RN NOTIFIED Performed By: #### GLMET #### [facility] [address] [place] [address] OPERATIVE NO Observed: 02/22/2018 Status: COMPLETED Source: [place] 12:00 AM CLINIC OTHER CAMPUS REPOSITORY HNO ID: [id number] Author: Christofer Barajas Service: Otolaryngology Author Type: Physician Type: Operative Report Filed: 02/23/2018 7:58 AM Note Text: [facility] - Operative Report SURGEON: Christofer Barajas MD PATIENT NAME: JEFFREY CULLEN CSN: [id number] DATE OF SURGERY: 02/22/2018 DATE OF : 1950 SEX/AGE: M/67 PATIENT TYPE: I HOSP SVC: ICU LOCATION: [id number] DATE OF SURGERY: 02/22/2018 SURGEON: Christofer Barajas [...] procedure well. Christofer Barajas MD Otolaryngology BMS:modl /[id number] GLUCOSE METER Collected: 02/21/2018 Status: F Source: [facility] 6:02 PM HEALTH SYSTEM REPOSITORY TYPE CODE TESTS RESULT OUT OF REFERENCE UNITS RANGE LAB GLUBL(LOINC 70-99 mg/dL ) High Glucose Meter 112 Result Comment: RN NOTIFIED Performed By: #### GLMET #### [facility] [address] [place] [address] CONSULT PROG Observed: 02/21/2018 Status: COMPLETED Source: [place] 3:25 PM CLINIC OTHER CAMPUS REPOSITORY HNO ID: [id number] Author: Suzanne Prasad (Pa) Service: Neurology Author Type: Physician Trade Economist Type: Consult Progress Note Filed: 02/21/2018 3:28 PM Note Text: Neuro ICU Awaiting MRI brain to evaluate for possible embolic shower post-op CABG that may not have been visualized on CT. Further w/u unrevealing. Will follow once MRI results available for further prognostication per Dr. Ojeda. Suzanne Prasad PA-C 02/21/2018 3:27pm PROGRESS Observed: 02/21/2018 Status: COMPLETED Source: [place] 3:18 PM [facility] OTHER [place] REPOSITORY HNO ID: [id number] Author: Misti Stein (Pa) Service: Cardiac Surgery Author Type: Physician Trade Economist Type: Progress Notes Filed: 02/21/2018 3:32 PM [...] 1310 Peripherally Inserted (PICC) Right Arm 5.0 Bangladeshi 4 days Drain GI Feed/Drain 02/09/18 0800 [...] February 21, 2018 TIME: 3:19 PM PAGER/CONTACT #:[phone] CONSULT Observed: 02/21/2018 Status: COMPLETED Source: [place] 1:26 PM CLINIC OTHER CAMPUS REPOSITORY HNO ID: [id number] Author: Christofer Barajas Service: Otolaryngology Author Type: [...] PM PROGRESS Observed: 02/21/2018 Status: COMPLETED Source: [place] 12:41 PM CLINIC OTHER CAMPUS REPOSITORY [facility] ID: [id number] Author: Keon Chance Service: Pulmonary Disease Author [...] As Recurrent) Nstemi (Non-St Elevated Myocardial Infarction) ([facility]) Nsvt (Nonsustained Ventricular Tachycardia) ([facility]) [...] Full Code. Discussed with Registered Nurse and STATISTICIAN. Critical Care Documentation: The patient has the following organ/system impairment(s): Respiratory failure (Acute, with Hypoxemia) and coronary artery disease Time spent providing critical care services: 39 minutes. SIGNATURE: Keon Chance MD [facility] PAGER:[phone] DATE of SERVICE: February 21, 2018 TIME of SERVICE: 12:41 PM GLUCOSE METER Collected: 02/21/2018 Status: F Source: [facility] 11:54 AM HEALTH SYSTEM REPOSITORY TYPE CODE TESTS RESULT OUT OF REFERENCE UNITS RANGE LAB GLUBL(LOINC 70-99 mg/dL ) High Glucose Meter 131 Result Comment: RN NOTIFIED Performed By: #### GLMET #### [facility] [address] [place] [id number] ALLIED HEALTH Observed: 02/21/2018 Status: COMPLETED Source: [place] 11:27 AM CLINIC OTHER CAMPUS REPOSITORY HNO ID: [id number] Author: Chaplain Blanco (Chaplain) Service: Spiritual Care Author Type: Gas Meter Reader Type: Allied Health Filed: 02/21/2018 12:19 PM Note Text: SPIRITUALCARE Spiritual Care Visit- Brief Note Name: Jeffrey Cullen Date: February 21, 2018 Notes: As system support technician, attempted intro visit, but pt was sleeping. Left SC card bedside. Gas Meter Reader Signature: CHAPLAIN Francis To contact the Spiritual Care Department: Please call [phone] or Page the On-Call Gas Meter Reader at pager [phone] Thank you for the opportunity to be of service. This is an electronically created document. IF PRINTED, PLEASE DO NOT REMOVE FROM THE CHART OR MODIFY PRINTED COPY. HEMOGRAM Collected: 02/21/2018 Status: F Source: [facility] 5:15 AM HEALTH SYSTEM REPOSITORY TYPE CODE [...] MPV 10.4 Performed By: #### CBC1 #### [facility] [address] [place] [id number] BASIC PANEL Collected: 02/21/2018 Status: F Source: [facility] 5:15 AM HEALTH SYSTEM REPOSITORY TYPE CODE [...] Gap 8 Performed By: #### P8 #### [place] [address] MDRD GFR Collected: 02/21/2018 Status: F Source: [facility] 5:15 AM HEALTH SYSTEM REPOSITORY TYPE CODE TESTS RESULT OUT OF RANGE REFERENCE UNITS LAB GFRFN(LOINC >60mL/min/1.73m ) 2 eGFR >60 Result Comment: If the patient is , multiply the result by 1.210. Performed By: #### GFR #### [place] [address] GLUCOSE METER Collected: 02/21/2018 Status: F Source: [facility] 5:12 AM HEALTH SYSTEM REPOSITORY TYPE CODE TESTS RESULT OUT OF REFERENCE UNITS RANGE LAB GLUBL(LOINC 70-99 mg/dL ) High Glucose Meter 124 Result Comment: RN NOTIFIED Performed By: #### GLMET #### [place] [address] GLUCOSE METER Collected: 02/21/2018 Status: F Source: [facility] 12:03 AM HEALTH SYSTEM REPOSITORY TYPE CODE TESTS RESULT OUT OF REFERENCE UNITS RANGE LAB GLUBL(LOINC 70-99 mg/dL ) High Glucose Meter 122 Result Comment: RN NOTIFIED Performed By: #### GLMET #### [place] [address] NURSING PROG Observed: 02/20/2018 Status: COMPLETED Source: [place] 9:15 PM CLINIC OTHER CAMPUS REPOSITORY HNO ID: [id number] Author: Juan MoodyRn) ANGELINA Jauregui Service: Critical Care Author Type: Registered Nurse Type: Nursing Progress Note Filed: 02/20/2018 9:24 PM Note Text: Nursing Progress Note Patient Name: Jeffrey Cullen Patient Location: [place] [address] [address]* Daily Note: 2044: Pt attempted to take to MRI, pt unable to hold head without movement for the duration of procedure. MRI mynor states pt unable to do at this time. Will continue to monitor. 2100: Spoke with pt sister in [place] Trev, updated about MRI and pt throughout day. Pt sister would like NPCS to talk with Dr. Adrian Joy in [place] this is a family practice doctor who has previously seen pt. Dr. Joy will call throughout the day tomorrow. Trev who is the pt sister is acting DPOA, is closest relative and giving permission for Dr. Joy to call for information. Will continue to monitor. This note was completed by: Juan Jauregui RN GLUCOSE METER Collected: 02/20/2018 Status: F Source: [facility] 6:51 PM HEALTH SYSTEM REPOSITORY TYPE CODE TESTS RESULT OUT OF REFERENCE UNITS RANGE LAB GLUBL(LOINC 70-99 mg/dL ) High Glucose Meter 122 Result Comment: RN NOTIFIED Performed By: #### GLMET #### [place] [address] CASE MANAGEM Observed: 02/20/2018 Status: COMPLETED Source: [place] 5:25 PM CLINIC OTHER CAMPUS REPOSITORY HNO ID: [id number] Author: Angelica MoodyRn) ANGELINA Malcolm Service: Care Management Author Type: Registered Nurse Type: Care Mgt Progress Note Filed: 02/20/2018 5:26 PM Note Text: Vest TCU updated, cont to follow CONSULT Observed: 02/20/2018 Status: COMPLETED Source: [place] 1:37 PM CLINIC OTHER CAMPUS REPOSITORY HNO ID: [id number] Author: Bharat Ojeda Service: Neurology Author Type: [...] goals of care,?medical plan for the day, hr business partner consultant recommendations, medical disposition and current medical [...] 1582 PROGRESS Observed: 02/20/2018 Status: COMPLETED Source: [place] 12:16 PM CLINIC OTHER CAMPUS REPOSITORY O ID: [id number] Author: Keon Chance Service: Pulmonary Disease Author [...] As Recurrent) Nstemi (Non-St Elevated Myocardial Infarction) ([facility]) Nsvt (Nonsustained Ventricular Tachycardia) ([facility]) Nicotine use disorder, F17.2 Subjective [...] 1945 RESPHCO3 25.1 PH 7.310* PCO2 51.4* [id number] 94.0* CBC: Recent Labs 02/20/18 0610 02/19/18 [...] Myocardial Infarction) ([facility]) Nsvt (Nonsustained Ventricular Tachycardia) ([facility]) Nicotine use disorder, F17.2 S/P [...] services: 38 minutes. SIGNATURE: Keon Chance MD [facility] PAGER:[phone] DATE of SERVICE: February 20, 2018 TIME of SERVICE: 12:17 PM GLUCOSE METER Collected: 02/20/2018 Status: F Source: [facility] 11:49 AM HEALTH SYSTEM REPOSITORY TYPE CODE TESTS RESULT OUT OF REFERENCE UNITS RANGE LAB GLUBL(LOINC 70-99 mg/dL ) High Glucose Meter 159 Result Comment: RN NOTIFIED Performed By: #### GLMET #### [place] [address] PROGRESS Observed: 02/20/2018 Status: COMPLETED Source: [place] 10:45 AM CLINIC OTHER CAMPUS REPOSITORY HNO ID: [id number] Author: Beata Marin Service: Cardiac Surgery Author Type: Physician Type: Progress Notes Filed: 02/20/2018 5:44 PM Note Text: CARDIOTHORACICSURGERY PROGRESS NOTE SERVICE DATE: 02/20/2018 SERVICE TIME: 10:45 AM Ventricular Pacing Wires removed. Patient sedated and intubated. A single ventricular wire and ground lead were removed at 10:42AM without complication. Patient tolerated procedure well. Nurse will monitor VS [id number], then [id number], then [id number]. SIGNATURE: Misti Stein PA-C PATIENT NAME: Jeffrey Cullen DATE: February 20, 2018 TIME: 10:45 AM PAGER/CONTACT #: [phone] ETX#[id number] Patient seen and still on vent. Perhaps a little more awake at times. Appreciate neuro eval. Labs noted. Mostly sinus rhythm. A-continued mental status changes with neg CT head and resp failure s/p urgent cabg P-on therapeutic lovenox, cardizem, and lopressor for postop afib. Await MRI brain. NUTRITION Observed: 02/20/2018 Status: COMPLETED Source: [place] 10:30 AM CLINIC OTHER CAMPUS REPOSITORY HNO ID: [id number] Author: Sandra Alvarado) TREASURE Almaguer Service: Nutrition [...] on at present Coordination of Care: Nursing, TUBE BUILDER AIRPLANE, , and Pharmacy Monitor and Evaluation: Goal: [...] lb) 12/04/07 : 100.2 kg (221 lb) [place] Body Weight: 78.2kg Resting Metabolic Rate: 1897 Estimated kilocalorie needs: 6672-9296 kilocalories determined by 25-30 kcal/kg ideal body weight Estimated protein needs: 102-133 grams determined by 1.3-1.7 g/kg [place] weight Estimated fluid needs: 1761-6750 milliliters based on 1 mL per kcal [...] min 5 units SIGNATURE: Sandra Almaguer RD, [place] PATIENT NAME: Jeffrey Cullen DATE: February 20, 2018 TIME: 10:31 AM PAGER: [phone] PROGRESS Observed: 02/20/2018 Status: COMPLETED Source: [place] 9:22 AM [facility] OTHER CAMPUS REPOSITORY HNO ID: [id number] Author: Krystal Miller APRN (Cns).MALIA Service: Critical Care Author Type: Nurse Specialist [...] Intake/Output Summary (Last 24 hours) at 02/20/18 09 Last data filed at 02/20/18 0900 Gross [...] 1310 Peripherally Inserted (PICC) Right Arm 5.0 Bangladeshi 2 days Drain GI Feed/Drain 02/09/18 0800 [...] (02/20/18 0810) Total Respiratory Rate (BPM): 22 (02/20/18809) Tidal Volume Set (mL): 550 (02/20/18809) Exhaled Tidal Volume (mL): 619 (02/20/18809) Minute Volume (L): 12.6 (02/20/18 08) Peak Inspiratory Pressure (cm H2O): 10 (02/20/18809) [...] 35 minutes excluding procedures. SIGNATURE: Krystal Miller APRN.CABINET ASSEMBLER PATIENT NAME: Jeffrey Cullen DATE: February 20, 2018 TIME: 9:22 AM HEMOGRAM Collected: 02/20/2018 Status: F Source: [facility] 6:10 AM HEALTH SYSTEM REPOSITORY TYPE CODE [...] MPV 9.9 Performed By: #### CBC1 #### [place] [address] BASIC PANEL Collected: 02/20/2018 Status: F Source: [facility] 6:10 AM HEALTH SYSTEM REPOSITORY TYPE CODE [...] Gap 7 Performed By: #### P8 #### [place] [address] MDRD GFR Collected: 02/20/2018 Status: F Source: [facility] 6:10 AM HEALTH SYSTEM REPOSITORY TYPE CODE TESTS RESULT OUT OF RANGE REFERENCE UNITS LAB GFRFN(LOINC >60mL/min/1.73m ) 2 eGFR >60 Result Comment: If the patient is , multiply the result by 1.210. Performed By: #### GFR #### [facility] [address] [place] [id number] GLUCOSE METER Collected: 02/20/2018 Status: F Source: [facility] 6:03 AM HEALTH SYSTEM REPOSITORY TYPE CODE TESTS RESULT OUT OF REFERENCE UNITS RANGE LAB GLUBL(LOINC 70-99 mg/dL ) High Glucose Meter 114 Result Comment: RN NOTIFIED Performed By: #### GLMET #### [facility] [address] [place] [id number] GLUCOSE METER Collected: 02/20/2018 Status: F Source: [facility] 12:30 AM HEALTH SYSTEM REPOSITORY TYPE CODE TESTS RESULT OUT OF REFERENCE UNITS RANGE LAB GLUBL(LOINC 70-99 mg/dL ) High Glucose Meter 124 Result Comment: RN NOTIFIED Performed By: #### GLMET #### [facility] [address] [place] [address] GLUCOSE METER Collected: 02/19/2018 Status: F Source: [facility] 6:34 PM HEALTH SYSTEM REPOSITORY TYPE CODE TESTS RESULT OUT OF REFERENCE UNITS RANGE LAB GLUBL(LOINC 70-99 mg/dL ) High Glucose Meter 108 Result Comment: RN NOTIFIED Performed By: #### GLMET #### [facility] [address] [place] [id number] PROGRESS Observed: 02/19/2018 Status: COMPLETED Source: [place] 3:55 PM CLINIC OTHER CAMPUS REPOSITORY O ID: [id number] Author: Evelin Coronado Service: Critical Care Author [...] 02/13/181944 RESPHCO3 25.1 PH 7.310* PCO2 51.4* [id number] 94.0* CBC: Recent Labs 02/19/18 0550 02/18/18 [...] hours. Ammonia level today: 43 Recent Labs 02/13/18 1945 PH 7.310* EXAMINATION: ?CT HEAD W/O CONTRAST [...] As Recurrent) Nstemi (Non-St Elevated Myocardial Infarction) ([facility]) Nsvt (Nonsustained Ventricular Tachycardia) ([facility]) Nicotine use disorder, F17.2 S/P [...] Nurse, PharmD, and Yg Owen (Cardiovascular/Thoracic Surgery ELECTRICAL INSTRUMENTATION TECHNICIAN). Critical Care Documentation: The patient has the following organ/system impairment(s): Respiratory failure (Acute, with Hypoxemia) and coronary artery disease Discussed with VE TEACHER and Dr. Ojeda. Time spent providing critical care services: 41 minutes. SIGNATURE: Evelin Coronado MD [facility] PAGER:[phone] DATE of SERVICE: February 19, 2018 TIME of SERVICE: 3:55 PM GLUCOSE METER Collected: 02/19/2018 Status: F Source: [facility] 11:56 AM HEALTH SYSTEM REPOSITORY TYPE CODE TESTS RESULT OUT OF REFERENCE UNITS RANGE LAB GLUBL(LOINC 70-99 mg/dL ) High Glucose Meter 112 Result Comment: RN NOTIFIED Performed By: #### GLMET #### [place] [address] AMMONIA Collected: 02/19/2018 Status: F Source: [place] 11:10 AM HEALTH SYSTEM REPOSITORY TYPE CODE TESTS RESULT OUT OF REFERENCE UNITS RANGE LAB DAVID(LOINC 11-32 umol/L ) High alert Ammonia 43 Performed By: #### DAVID #### [place] [address] PROGRESS Observed: 02/19/2018 Status: COMPLETED Source: [place] 9:20 AM [facility] OTHER CAMPUS REPOSITORY HNO ID: [id number] Author: Beata Marin Service: Thoracic Surgery Author Type: Physician Type: Progress Notes Filed: 02/19/2018 9:24 AM Note Text: CT surg POD #10! S-still wakes up wild on vent O-CT head negative, I/O close to balance Labs noted A-Not much improvement/change P-?neuro eval? CHEST 1 VIEW Observed: 02/19/2018 Status: F Source: [place] [facility] 6:34 AM HEALTH SYSTEM REPOSITORY Performed at [facility] APPROVED BY: Saul Garcia MD EXAMINATION: CHEST [...] GLUCOSE METER Collected: 02/19/2018 Status: F Source: [facility] 6:32 AM HEALTH SYSTEM REPOSITORY TYPE CODE TESTS RESULT OUT OF REFERENCE UNITS RANGE LAB GLUBL(LOINC 70-99 mg/dL ) High Glucose Meter 100 Result Comment: RN NOTIFIED Performed By: #### GLMET #### [facility] [address] [place] [address] HEMOGRAM Collected: 02/19/2018 Status: F Source: [facility] 5:50 AM HEALTH SYSTEM REPOSITORY TYPE CODE [...] MPV 10.3 Performed By: #### CBC1 #### [facility] [address] [place] [id number] BASIC PANEL Collected: 02/19/2018 Status: F Source: [facility] 5:50 AM HEALTH SYSTEM REPOSITORY TYPE CODE [...] Gap 8 Performed By: #### P8 #### [place] [address] MDRD GFR Collected: 02/19/2018 Status: F Source: [facility] 5:50 AM HEALTH SYSTEM REPOSITORY TYPE CODE TESTS RESULT OUT OF RANGE REFERENCE UNITS LAB GFRFN(LOINC >60mL/min/1.73m ) 2 eGFR >60 Result Comment: If the patient is , multiply the result by 1.210. Performed By: #### GFR #### [place] [address] GLUCOSE METER Collected: 02/19/2018 Status: F Source: [facility] 1:14 AM HEALTH SYSTEM REPOSITORY TYPE CODE TESTS RESULT OUT OF REFERENCE UNITS RANGE LAB GLUBL(LOINC 70-99 mg/dL ) High Glucose Meter 123 Result Comment: RN NOTIFIED Performed By: #### GLMET #### [place] [address] GLUCOSE METER Collected: 02/18/2018 Status: F Source: [facility] 6:04 PM HEALTH SYSTEM REPOSITORY TYPE CODE TESTS RESULT OUT OF REFERENCE UNITS RANGE LAB GLUBL(LOINC 70-99 mg/dL ) High Glucose Meter 116 Result Comment: RN NOTIFIED Performed By: #### GLMET #### [place] [address] PROGRESS Observed: 02/18/2018 Status: COMPLETED Source: [place] 2:56 PM CLINIC OTHER CAMPUS REPOSITORY O ID: [id number] Author: Evelin Coronado Service: Critical Care Author [...] 02/13/181944 RESPHCO3 25.1 PH 7.310* PCO2 51.4* [id number] 94.0* CBC: Recent Labs 02/18/18 0520 02/17/18 [...] 02/16/18 0600 02/15/18 0530 02/14/18 0503 02/13/181944 02/13/18 0450 02/12/18 0501 CA 8.3* 8.1* [...] Nurse, PharmD, and Yg Owen (Cardiovascular/Thoracic Surgery ELECTRICAL INSTRUMENTATION TECHNICIAN). Critical Care Documentation: The patient has the following organ/system impairment(s): Respiratory failure (Acute, with Hypoxemia) and coronary artery disease Time spent providing critical care services: 35 minutes. SIGNATURE: Evelin Coronado MD [facility] PAGER:[phone] DATE of SERVICE: February 18, 2018 TIME of SERVICE: 2:[address] HEAD W/O CONTRAST Observed: 02/18/2018 Status: F Source: [facility] 2:33 PM HEALTH SYSTEM REPOSITORY Performed at [facility] APPROVED BY: Saul Garcia MD EXAMINATION: CT [...] 1 VIEW Observed: 02/18/2018 Status: F Source: [facility] 1:56 PM HEALTH SYSTEM REPOSITORY Performed at [facility] APPROVED BY: Saul Garcia MD EXAM TITLE: [...] GLUCOSE METER Collected: 02/18/2018 Status: F Source: [facility] 11:58 AM HEALTH SYSTEM REPOSITORY TYPE CODE TESTS RESULT OUT OF REFERENCE UNITS RANGE LAB GLUBL(LOINC 70-99 mg/dL ) High Glucose Meter 118 Performed By: #### GLMET #### [facility] [address] [place] [address] PROGRESS Observed: 02/18/2018 Status: COMPLETED Source: [place] 11:32 AM CLINIC OTHER CAMPUS REPOSITORY HNO ID: [id number] Author: Beata Marin Service: Thoracic Surgery Author Type: Physician Type: Progress Notes Filed: 02/18/2018 11:34 AM Note Text: S-still on vent w/o much change O-still in and out of afib Labs noted CXR +/- A-Stable but not improving P-adjust meds, on therapeutic lovenox, check head CT PROGRESS Observed: 02/18/2018 Status: COMPLETED Source: [place] 9:25 AM CLINIC OTHER [place] REPOSITORY HNO ID: [id number] Author: Krystal (Manager Technical Training) APRN. PaulCABINET ASSEMBLER Service: Critical Care Author Type: Nurse Specialist [...] dilTIAZem 100 mg in D5W 100 mL ADD-Nokomis (CARDIZEM) 5-15 mg/hr INTRAVENOUS CONTINUOUS nystatin 5 [...] 1310 Peripherally Inserted (PICC) Right Arm 5.0 Bangladeshi less than 1 day Drain GI Feed/Drain [...] APRN.CNS PATIENT NAME: Jeffrey Cullen DATE: February 18, 2018 TIME: 9:26 AM CHEST 1 VIEW Observed: 02/18/2018 Status: F Source: [facility] 8:56 AM HEALTH SYSTEM REPOSITORY Performed at [facility] APPROVED BY: Saul Garcia MD EXAMINATION: CHEST [...] GLUCOSE METER Collected: 02/18/2018 Status: F Source: [facility] 6:17 AM HEALTH SYSTEM REPOSITORY TYPE CODE TESTS RESULT OUT OF REFERENCE UNITS RANGE LAB GLUBL(LOINC 70-99 mg/dL ) High Glucose Meter 110 Result Comment: RN NOTIFIED Performed By: #### GLMET #### [place] [address] HEMOGRAM Collected: 02/18/2018 Status: F Source: [facility] 5:20 AM HEALTH SYSTEM REPOSITORY TYPE CODE [...] MPV 10.2 Performed By: #### CBC1 #### [place] [address] BASIC PANEL Collected: 02/18/2018 Status: F Source: [facility] 5:20 AM HEALTH SYSTEM REPOSITORY TYPE CODE [...] Gap 10 Performed By: #### P8 #### [place] [address] MDRD GFR Collected: 02/18/2018 Status: F Source: [facility] 5:20 AM HEALTH SYSTEM REPOSITORY TYPE CODE TESTS RESULT OUT OF RANGE REFERENCE UNITS LAB GFRFN(LOINC >60mL/min/1.73m ) 2 eGFR >60 Result Comment: If the patient is , multiply the result by 1.210. Performed By: #### GFR #### [facility] [address] [place], [place] [address] GLUCOSE METER Collected: 02/17/2018 Status: F Source: [facility] 11:58 PM HEALTH SYSTEM REPOSITORY TYPE CODE TESTS RESULT OUT OF REFERENCE UNITS RANGE LAB GLUBL(LOINC 70-99 mg/dL ) High Glucose Meter 130 Result Comment: RN NOTIFIED Performed By: #### GLMET #### [facility] [address] [place], [place] [address] ALLIED HEALTH Observed: 02/17/2018 Status: COMPLETED Source: [place] 10:00 PM CLINIC OTHER [place] REPOSITORY HNO ID: [id number] Author: Chaplain Dalton (Chaplain) Service: Spiritual Care Author Type: Gas Meter Reader Type: Allied Health Filed: 02/17/2018 10:01 PM [...] GLUCOSE METER Collected: 02/17/2018 Status: F Source: [facility] 6:20 PM HEALTH SYSTEM REPOSITORY TYPE CODE TESTS RESULT OUT OF REFERENCE UNITS RANGE LAB GLUBL(LOINC 70-99 mg/dL ) High Glucose Meter 112 Result Comment: RN NOTIFIED Performed By: #### GLMET #### [facility] [address] [place], [place] [address] PT ED Observed: 02/17/2018 Status: COMPLETED Source: [place] 1:22 PM CLINIC OTHER [place] REPOSITORY HNO ID: [id number] Author: Jayla MoodyRn) ANGELINA Pineda Service: PICC Team Author Type: Registered Nurse Type: Patient Education Filed: 02/17/2018 1:24 PM Note Text: PATIENT EDUCATION TOPIC: PROCEDURE / SURGERY: Procedure/Surgery: PICC Insertion PATIENT NAME: Jeffrey Cullen PATIENT LOCATION: [place] [address] [address]* READINESS TO LEARN COGNITIVE ABILITY: On vent [...] RN PROCEDURE Observed: 02/17/2018 Status: COMPLETED Source: [place] 1:17 PM CLINIC OTHER CAMPUS REPOSITORY O ID: [id number] Author: Krystal (Rn) ANGELINA Joseph Service: PICC Team Author Type: Registered [...] PLACEMENT: Sterile PRIMARY PROCEDURALIST: Krystal Joseph RN MANAGER MANAGED CARE: N/A PRE-PROCEDURE REVIEW ALLERGIES No Known Allergies [...] Completed Krystal Joseph RN CATHETER PLACEMENT Brand: bard Lot: [id number] Number of Lumens: 2 Type of PICC: Power Injectable PICC Lumen Size: 5 Bangladeshi PLACEMENT TECHNIQUE Lidocaine: Yes. Strength: 1% Volume [...] for PICC insertion. QUESTIONS or PROBLEMS: Call [phone] SIGNATURE: Krystal Joseph RN PATIENT NAME: Jeffrey Cullen DATE: February 17, 2018 TIME: 1:18 PM PAGER/CONTACT PHONE: GLUCOSE METER Collected: 02/17/2018 Status: F Source: [facility] 12:08 PM HEALTH SYSTEM REPOSITORY TYPE CODE TESTS RESULT OUT OF REFERENCE UNITS RANGE LAB GLUBL(LOINC 70-99 mg/dL ) High Glucose Meter 118 Result Comment: RN NOTIFIED Performed By: #### GLMET #### [place] [address] PROGRESS Observed: 02/17/2018 Status: COMPLETED Source: [place] 11:44 AM CLINIC OTHER CAMPUS REPOSITORY HNO ID: [id number] Author: Misti Stein (Pa) Service: Cardiac Surgery Author Type: Physician Trade Economist Type: Progress Notes Filed: 02/17/2018 2:34 PM [...] auscultation, thick sputum suctioned from tube per film processing utility worker: regular rhythm, pacing wires present and episodic [...] February 17, 2018 TIME: 11:44 AM PAGER/CONTACT #:[phone] ETX [id number] THERAPY NT Observed: 02/17/2018 Status: COMPLETED Source: [place] 11:43 AM CLINIC OTHER CAMPUS REPOSITORY HNO ID: [id number] Author: Yajaira MoodyOtr/LKristin Choudhary Service: Occupational Therapy Author Type: Occupational Therapist Type: Therapy (PT/OT/Speech/Resp) Filed: 02/17/2018 11:44 AM Note Text: OCCUPATIONAL THERAPY MISSED VISIT SERVICE DATE: 02/17/2018 SERVICE TIME: 1142 to 1142 ROOM: [place] [address] Attempted Evaluation. Patient not seen due to remains sedated, on Ventilator. Will discontinue OT order at this time. Please reorder as needed when medically stable and able to participate. SIGNATURE: Yajaira Choudhary OTR/L PATIENT NAME: Jefrfey Cullen DATE: February 17, 2018 TIME: 11:43 AM PAGER/CONTACT #:[phone] PROGRESS Observed: 02/17/2018 Status: COMPLETED Source: [place] 11:41 AM CLINIC OTHER CAMPUS REPOSITORY HNO ID: [id number] Author: Keon Chance Service: Pulmonary Disease Author [...] As Recurrent) Nstemi (Non-St Elevated Myocardial Infarction) ([facility]) Nsvt (Nonsustained Ventricular Tachycardia) ([facility]) Nicotine use disorder, F17.2 Subjective [...] dilTIAZem 100 mg in D5W 100 mL ADD-Nokomis (CARDIZEM) 5-15 mg/hr INTRAVENOUS CONTINUOUS nystatin 5 [...] 1945 RESPHCO3 25.1 PH 7.310* PCO2 51.4* [id number] 94.0* CBC: Recent Labs 02/17/18 1000 02/16/18 [...] 0503 02/13/18194402/13/18 0450 02/12/18 0501 02/11/18 0420 GLUC 123* [...] Nurse, PharmD, and Yg Owen (Cardiovascular/Thoracic Surgery ELECTRICAL INSTRUMENTATION TECHNICIAN). Critical Care Documentation: The patient has the following organ/system impairment(s): Respiratory failure (Acute, with Hypoxemia) and coronary artery disease Time spent providing critical care services: 35 minutes. SIGNATURE: Keon Chance MD [facility] PAGER:[phone] DATE of SERVICE: February 17, 2018 TIME of SERVICE: 11:45 AM CASE MANAGEM Observed: 02/17/2018 Status: COMPLETED Source: [place] 11:11 AM [facility] OTHER CAMPUS REPOSITORY HNO ID: [id number] Author: Indu Johnson) ANGELINA Frederick Service: Care Management Author Type: Registered Nurse Type: Care Mgt Progress Note Filed: 02/17/2018 11:16 AM Note Text: CARE MANAGEMENT PROGRESS NOTE SERVICE DATE: 02/17/2018 SERVICE TIME: 11:11 AM LOS: 10 days Needs Prior to Discharge: To Be Determined;OT/PT Evaluation;Accepting Facility;Discharge Transportation Chart reviewed. Remains in [facility] intubated, sedated on vent. Continues IV Cardizem. Vest TCU following for possible placement when medically stable. Will continue to follow clinical course for further DC planning. SIGNATURE: Indu Frederick RN PATIENT NAME: Jeffrey Cullen DATE: February 17, 2018 TIME: 11:11 AM PAGER/CONTACT #: [phone] HEMOGRAM/DIFF Collected: 02/17/2018 Status: F Source: [facility] 10:00 AM HEALTH SYSTEM REPOSITORY TYPE CODE [...] LAB MONON(LOIN 0.30-0.82 thou/cmm C) Abs. High [place] 0.94 LAB EOSN(LOINC 0.04-0.54 thou/cmm ) Abs. Eosin 0.32 LAB BASON(LOIN 0.01-0.08 thou/cmm C) Abs. Baso 0.05 Result Comment: Smear scanned; tech agrees with automated differential Performed By: #### CBCD1 #### [place] [address] BASIC PANEL Collected: 02/17/2018 Status: F Source: [facility] 10:00 HEALTH SYSTEM REPOSITORY TYPE CODE TESTS [...] Gap 8 Performed By: #### P8 #### [place] [address] MAGNESIUM BLOOD Collected: 02/17/2018 Status: F Source: [facility] 10:00 HEALTH SYSTEM REPOSITORY TYPE CODE TESTS RESULT OUT OF REFERENCE UNITS RANGE LAB MAG(LOINC) 1.6-2.6 mg/dL Magnesium Blood 2.5 Performed By: #### MAG #### [address] [place] [address] PHOSPHORUS BLOOD Collected: 02/17/2018 Status: F Source: [facility] 10:00 AM HEALTH SYSTEM REPOSITORY TYPE CODE TESTS RESULT OUT OF REFERENCE UNITS RANGE LAB PHOS(LOINC 2.5-4.9 mg/dL ) Phosphorus Blood 3.5 Performed By: #### PHOS #### [place] [address] MDRD GFR Collected: 02/17/2018 Status: F Source: [facility] 10:00 AM HEALTH SYSTEM REPOSITORY TYPE CODE TESTS RESULT OUT OF RANGE REFERENCE UNITS LAB GFRFN(LOINC >60mL/min/1.73m ) 2 eGFR >60 Result Comment: If the patient is , multiply the result by 1.210. Performed By: #### GFR #### [place] [address] GLUCOSE METER Collected: 02/17/2018 Status: F Source: [facility] 5:54 AM HEALTH SYSTEM REPOSITORY TYPE CODE TESTS RESULT OUT OF REFERENCE UNITS RANGE LAB GLUBL(LOINC 70-99 mg/dL ) High Glucose Meter 110 Result Comment: RN NOTIFIED Performed By: #### GLMET #### [place] [address] GLUCOSE METER Collected: 02/16/2018 Status: F Source: [facility] 11:57 PM HEALTH SYSTEM REPOSITORY TYPE CODE TESTS RESULT OUT OF REFERENCE UNITS RANGE LAB GLUBL(LOINC 70-99 mg/dL ) High Glucose Meter 104 Result Comment: RN NOTIFIED Performed By: #### GLMET #### [place] [address] GLUCOSE METER Collected: 02/16/2018 Status: F Source: [facility] 6:16 PM HEALTH SYSTEM REPOSITORY TYPE CODE TESTS RESULT OUT OF REFERENCE UNITS RANGE LAB GLUBL(LOINC 70-99 mg/dL ) High Glucose Meter 100 Result Comment: RN NOTIFIED Performed By: #### GLMET #### [place] [address] CASE MANAGEM Observed: 02/16/2018 Status: COMPLETED Source: [facility] [facility] 2:35 PM CLINIC OTHER CAMPUS REPOSITORY HNO ID: [id number] Author: Angelica Johnson) ANGELINA Malcolm Service: Care Management Author Type: Registered Nurse Type: Care Mgt Progress Note Filed: 02/16/2018 2:38 PM Note Text: Pt remains intubated, hoping to go to [facility] [place] GLUCOSE METER Collected: 02/16/2018 Status: F Source: [facility] 12:04 PM HEALTH SYSTEM REPOSITORY TYPE CODE TESTS RESULT OUT OF REFERENCE UNITS RANGE LAB GLUBL(LOINC 70-99 mg/dL ) Glucose Meter 96 Result Comment: RN NOTIFIED Performed By: #### GLMET #### [place] [address] PROGRESS Observed: 02/16/2018 Status: COMPLETED Source: [place] 11:21 AM CLINIC OTHER CAMPUS REPOSITORY HNO ID: [id number] Author: Beata Marin Service: Cardiovascular Surgery Author [...] normal; large amt thick sputum suctioned by film processing utility worker: regular rhythm, S1, S2 normal and pacing [...] 1. BMP 2. CBC SIGNATURE: Clementine Owen APRN.CAMP ASSISTANT PATIENT NAME: Jeffrey Cullen DATE: February 16, 2018 TIME: 11:21 AM PAGER/CONTACT #: [phone] [id number] Patient seen w PA earlier today. afib recurring. Labs, data, and careplan reviewed. P-as ordered. PROGRESS Observed: 02/16/2018 Status: COMPLETED Source: [facility] 11:13 AM CLINIC OTHER CAMPUS REPOSITORY HNO ID: [id number] Author: Keon Chance Service: Pulmonary Disease Author [...] As Recurrent) Nstemi (Non-St Elevated Myocardial Infarction) ([facility]) Nsvt (Nonsustained Ventricular Tachycardia) ([facility]) Nicotine use disorder, F17.2 Subjective [...] dilTIAZem 100 mg in D5W 100 mL ADD-Nokomis (CARDIZEM) 5-15 mg/hr INTRAVENOUS CONTINUOUS nystatin 5 [...] 39.3 39.4 48.2* 47.4* 62.0* -- -- [id number] 94.0* 96.1 93.6* 95.2 97.6 96.2 -- [...] As Recurrent) Nstemi (Non-St Elevated Myocardial Infarction) ([facility]) Nsvt (Nonsustained Ventricular Tachycardia) ([facility]) Nicotine use disorder, F17.2 S/P [...] status: Full Code. Discussed with Registered Nurse, STATISTICIAN, PharmD, and Yg Owen (Cardiovascular/Thoracic Surgery ELECTRICAL INSTRUMENTATION TECHNICIAN). Critical Care Documentation: The patient has the following organ/system impairment(s): Respiratory failure (Acute, with Hypoxemia) and coronary artery disease Time spent providing critical care services: 35 minutes. SIGNATURE: Keon Chance MD [facility] PAGER:[phone] DATE of SERVICE: February 16, 2018 TIME of SERVICE: 11:13 AM NUTRITION Observed: 02/16/2018 Status: COMPLETED Source: [place] 10:25 AM [facility] OTHER CAMPUS REPOSITORY O ID: [id number] Author: Sandra Almaguer RD Service: Nutrition Therapy [...] orders written. Coordination of Care: MD, pharmacy, [employer], and nursing Monitor and Evaluation: Goal: Meet [...] dilTIAZem 100 mg in D5W 100 mL ADD-Nokomis (CARDIZEM) 5-15 mg/hr INTRAVENOUS CONTINUOUS nystatin 5 [...] February 16, 2018 TIME: 10:26 AM PAGER: [phone] CASE MANAGEM Observed: 02/16/2018 Status: COMPLETED Source: [place] 9:14 AM CLINIC OTHER CAMPUS REPOSITORY HNO ID: [id number] Author: Latia (Specialist) Jose Service: Care Management Author Type: (none) Type: Care Mgt Progress Note Filed: 02/16/2018 9:14 AM Note Text: Updated notes sent to [facility]. THERAPY NT Observed: 02/16/2018 Status: COMPLETED Source: [place] 8:33 AM [facility] OTHER CAMPUS REPOSITORY HNO ID: [id number] Author: Ursula (Pt) Jay Jay Service: Physical Therapy Author Type: Physical Therapist Type: Therapy (PT/OT/Speech/Resp) Filed: 02/16/2018 8:34 AM Note Text: PHYSICAL THERAPY MISSED VISIT SERVICE DATE: 02/16/2018 SERVICE TIME: 0832 to 08 ROOM: [place] [address] Attempted Evaluation. Patient not seen due to Illness (Remain intubated. Please reconsult when patient is medically appropriate to work with physical therapy). SIGNATURE: Ursula Goyal, PT PATIENT NAME: Jeffrey Cullen DATE: February 16, 2018 TIME: 8:33 AM PAGER/CONTACT #: [phone] GLUCOSE METER Collected: 02/16/2018 Status: F Source: [facility] 6:09 AM HEALTH SYSTEM REPOSITORY TYPE CODE TESTS RESULT OUT OF REFERENCE UNITS RANGE LAB GLUBL(LOINC 70-99 mg/dL ) High Glucose Meter 110 Result Comment: RN NOTIFIED Performed By: #### GLMET #### [place] [address] HEMOGRAM/DIFF Collected: 02/16/2018 Status: F Source: [facility] 6:00 AM HEALTH SYSTEM REPOSITORY TYPE CODE [...] LAB MONON(LOIN 0.30-0.82 thou/cmm C) Abs. High [place] 1.12 LAB EOSN(LOINC 0.04-0.54 thou/cmm ) Abs. Eosin 0.05 LAB BASON(LOIN 0.01-0.08 thou/cmm C) Abs. Baso 0.01 Performed By: #### CBCD1 #### [facility] [address] [place] [address] BASIC PANEL Collected: 02/16/2018 Status: F Source: [facility] 6:00 AM HEALTH SYSTEM REPOSITORY TYPE CODE [...] Gap 4 Performed By: #### P8 #### [facility] [address] [place] [address] MDRD GFR Collected: 02/16/2018 Status: F Source: [facility] 6:00 AM HEALTH SYSTEM REPOSITORY TYPE CODE TESTS RESULT OUT OF RANGE REFERENCE UNITS LAB GFRFN(LOINC >60mL/min/1.73m ) 2 eGFR >60 Result Comment: If the patient is , multiply the result by 1.210. Performed By: #### GFR #### [place] [address] CHEST 1 VIEW Observed: 02/16/2018 Status: F Source: [place] [facility] 5:43 AM HEALTH SYSTEM REPOSITORY Performed at [facility] APPROVED BY: Saul Garcia MD EXAMINATION: CHEST [...] GLUCOSE METER Collected: 02/16/2018 Status: F Source: [place] [facility] 12:00 AM HEALTH SYSTEM REPOSITORY TYPE CODE TESTS RESULT OUT OF REFERENCE UNITS RANGE LAB GLUBL(LOINC 70-99 mg/dL ) High Glucose Meter 122 Result Comment: RN NOTIFIED Performed By: #### GLMET #### [place] [address] GLUCOSE METER Collected: 02/15/2018 Status: F Source: [facility] 5:21 PM HEALTH SYSTEM REPOSITORY TYPE CODE TESTS RESULT OUT OF REFERENCE UNITS RANGE LAB GLUBL(LOINC 70-99 mg/dL ) High Glucose Meter 132 Performed By: #### GLMET #### [place] [address] PROGRESS Observed: 02/15/2018 Status: COMPLETED Source: [place] 1:32 PM [facility] REPOSITORY HNO ID: [id number] Author: Juan Cabral Service: Cardiovascular Medicine Author Type: Physician Type: Progress Notes Filed: 02/15/2018 1:32 PM Note Text: Result Noted. Patient is currently hospitalized and managed by the in-patient team. Juan Cabral MD GLUCOSE METER Collected: 02/15/2018 Status: F Source: [facility] 11:31 AM HEALTH SYSTEM REPOSITORY TYPE CODE TESTS RESULT OUT OF REFERENCE UNITS RANGE LAB GLUBL(LOINC 70-99 mg/dL ) High Glucose Meter 129 Result Comment: RN NOTIFIED Performed By: #### GLMET #### [place] [address] GLUCOSE METER Collected: 02/15/2018 Status: F Source: [facility] 11:17 AM HEALTH SYSTEM REPOSITORY TYPE CODE TESTS RESULT OUT OF REFERENCE UNITS RANGE LAB GLUBL(LOINC 70-99 mg/dL ) High Glucose Meter 134 Performed By: #### GLMET #### [place] [address] PROGRESS Observed: 02/15/2018 Status: COMPLETED Source: [place] 11:10 AM [facility] REPOSITORY HNO ID: [id number] Author: Keon Chance Service: Pulmonary Disease Author [...] H DATA: BLOOD GAS: Recent Labs 02/13/18 19402/10/18 0819 02/10/18 0547 02/09/18 2015 02/09/18 1738 02/09/18 1400 02/09/18 1252 02/09/18 1217 RESPHCO3 25.1 23.3 23.0 21.3* 20.8* 23.6 -- -- PH 7.310* 7.392 7.385 7.267* 7.261* 7.193* 7.236* 7.372 PCO2 51.4* 39.3 39.4 48.2* 47.4* 62.0* -- -- [id number] 94.0* 96.1 93.6* 95.2 97.6 96.2 -- [...] status: Full Code. Discussed with Registered Nurse, STATISTICIAN, PharmD, and Yg Owen (Cardiovascular/Thoracic Surgery ELECTRICAL INSTRUMENTATION TECHNICIAN). Critical Care Documentation: The patient has the following organ/system impairment(s): Respiratory failure (Acute, with Hypoxemia) and coronary artery disease Time spent providing critical care services: 39 minutes. SIGNATURE: Keon Chance MD [facility] PAGER:[phone] DATE of SERVICE: February 15, 2018 TIME of SERVICE: 11:10 AM PROGRESS Observed: 02/15/2018 Status: COMPLETED Source: [place] 10:40 AM [facility] OTHER CAMPUS REPOSITORY HNO ID: [id number] Author: Beata Marin Service: Cardiovascular Surgery Author [...] ANION 7* 13 9 11 Recent Labs 02/13/18 1945 PH 7.310* PCO2 51.4* PO2 79.6* BE [...] ppx -Lovenox and SCDs Tests/Labs Ordered: 1. [facility] SIGNATURE: Clementine Owen APRN.CNP PATIENT NAME: Jeffrey Cullen DATE: February 15, 2018 TIME: 3:53 PM PAGER/CONTACT #: [phone] [phone] Patient seen w ELECTRICAL INSTRUMENTATION TECHNICIAN. Labs, data, and careplan reviewed. P-as discussed/ordered. CHEST 1 VIEW Observed: 02/15/2018 Status: F Source: [facility] 6:34 AM HEALTH SYSTEM REPOSITORY Performed at [facility] APPROVED BY: Chan Fernandez MD PORTABLE FRONTAL [...] GLUCOSE METER Collected: 02/15/2018 Status: F Source: [facility] 5:51 AM HEALTH SYSTEM REPOSITORY TYPE CODE TESTS RESULT OUT OF REFERENCE UNITS RANGE LAB GLUBL(LOINC 70-99 mg/dL ) High Glucose Meter 136 Performed By: #### GLMET #### [place] [address] HEMOGRAM Collected: 02/15/2018 Status: F Source: [facility] 5:30 AM HEALTH SYSTEM REPOSITORY TYPE [...] MPV 10.1 Performed By: #### CBC1 #### [place] [address] BASIC PANEL Collected: 02/15/2018 Status: F Source: [facility] 5:30 AM HEALTH SYSTEM REPOSITORY TYPE CODE [...] Gap 7 Performed By: #### P8 #### [place] [address] MDRD GFR Collected: 02/15/2018 Status: F Source: [facility] 5:30 AM HEALTH SYSTEM REPOSITORY TYPE CODE TESTS RESULT OUT OF RANGE REFERENCE UNITS LAB GFRFN(LOINC >60mL/min/1.73m ) 2 eGFR >60 Result Comment: If the patient is , multiply the result by 1.210. Performed By: #### GFR #### [place] [address] GLUCOSE METER Collected: 02/14/2018 Status: F Source: [facility] 11:59 PM HEALTH SYSTEM REPOSITORY TYPE CODE TESTS RESULT OUT OF REFERENCE UNITS RANGE LAB GLUBL(LOINC 70-99 mg/dL ) High Glucose Meter 134 Result Comment: RN NOTIFIED Performed By: #### GLMET #### [place] [address] PROGRESS Observed: 02/14/2018 Status: COMPLETED Source: [place] 6:26 PM CLINIC OTHER CAMPUS REPOSITORY HNO ID: [id number] Author: Juan Cabral Service: Cardiovascular Medicine Author Type: Physician Type: Progress Notes Filed: 02/14/2018 6:26 PM Note Text: Result Noted. Patient is currently hospitalized and managed by the in-patient team. Juan Cabral MD GLUCOSE METER Collected: 02/14/2018 Status: F Source: [facility] 6:14 PM HEALTH SYSTEM REPOSITORY TYPE CODE TESTS RESULT OUT OF REFERENCE UNITS RANGE LAB GLUBL(LOINC 70-99 mg/dL ) High Glucose Meter 132 Result Comment: RN NOTIFIED Performed By: #### GLMET #### [facility] [address] [place] [id number] PROGRESS Observed: 02/14/2018 Status: COMPLETED Source: [place] 5:43 PM CLINIC OTHER CAMPUS REPOSITORY HNO ID: [id number] Author: Juan Cabral Service: Cardiovascular Medicine Author Type: Physician Type: Progress Notes Filed: 02/14/2018 5:43 PM Note Text: Result Noted. Patient is currently hospitalized and managed by the in-patient team. Juan Cabral MD NUTRITION Observed: 02/14/2018 Status: COMPLETED Source: [place] 1:21 PM CLINIC OTHER CAMPUS REPOSITORY HNO ID: [id number] Author: Sandra Almaguer RD Service: Nutrition Therapy [...] post-pyloric tube placement Coordination of Care: Nursing, MD PAOLA and pharmacy Monitor and Evaluation: Goal: Meet [...] February 14, 2018 TIME: 1:22 PM PAGER: [phone] PROGRESS Observed: 02/14/2018 Status: COMPLETED Source: [place] 12:31 PM CLINIC OTHER CAMPUS REPOSITORY O ID: [id number] Author: Keon Chance Service: Pulmonary Disease Author [...] 39.3 39.4 48.2* 47.4* 62.0* -- -- [id number] 94.0* 96.1 93.6* 95.2 97.6 96.2 -- [...] 02/08/18 1730 02/08/18 0700 02/08/18 0105 02/07/18 22402/07/18 1525 APTT -- 23.0 43.7* 25.8 28.5 28.3 -- -- INR 1.23 1.24 -- -- -- 1.05 1.10 1.10 BMP: Recent Labs 02/14/18 0503 02/13/18 19402/13/18 0450 02/12/18 0501 [...] 1.01 CHEM: Recent Labs 02/14/18 0503 02/13/18 19402/13/18 0450 02/12/18 0501 02/11/18 0420 02/10/18 1455 02/10/18 0545 02/09/18201402/09/18 1405 02/07/18 22402/07/18 1525 ALB -- -- -- -- -- [...] As Recurrent) Nstemi (Non-St Elevated Myocardial Infarction) ([facility]) Nsvt (Nonsustained Ventricular Tachycardia) ([facility]) Nicotine use disorder, F17.2 S/P [...] services: 41 minutes. SIGNATURE: Keon Chance MD [facility] PAGER:[phone] DATE of SERVICE: February 14, 2018 TIME of SERVICE: 12:32 PM GLUCOSE METER Collected: 02/14/2018 Status: F Source: [facility] 11:59 AM HEALTH SYSTEM REPOSITORY TYPE CODE TESTS RESULT OUT OF REFERENCE UNITS RANGE LAB GLUBL(LOINC 70-99 mg/dL ) High Glucose Meter 158 Result Comment: RN NOTIFIED Performed By: #### GLMET #### [place] [address] PROGRESS Observed: 02/14/2018 Status: COMPLETED Source: [place] 11:40 AM CLINIC OTHER CAMPUS REPOSITORY HNO ID: [id number] Author: Beata Marin Service: Cardiac Surgery Author [...] February 14, 2018 TIME: 11:40 AM PAGER/CONTACT #:[phone] [id number] Patient seen with PA and ELECTRICAL INSTRUMENTATION TECHNICIAN. Careplan reviewed. P-as ordered. GLUCOSE METER Collected: 02/14/2018 Status: F Source: [facility] 10:08 AM HEALTH SYSTEM REPOSITORY TYPE CODE TESTS RESULT OUT OF REFERENCE UNITS RANGE LAB GLUBL(LOINC 70-99 mg/dL ) High Glucose Meter 139 Result Comment: RN NOTIFIED Performed By: #### GLMET #### [place] [address] GLUCOSE METER Collected: 02/14/2018 Status: F Source: [facility] 8:11 AM HEALTH SYSTEM REPOSITORY TYPE CODE TESTS RESULT OUT OF REFERENCE UNITS RANGE LAB GLUBL(LOINC 70-99 mg/dL ) High Glucose Meter 145 Result Comment: RN NOTIFIED Performed By: #### GLMET #### [place] [id number] GLUCOSE METER Collected: 02/14/2018 Status: F Source: [facility] 5:03 AM HEALTH SYSTEM REPOSITORY TYPE CODE TESTS RESULT OUT OF REFERENCE UNITS RANGE LAB GLUBL(LOINC 70-99 mg/dL ) High Glucose Meter 132 Result Comment: RN NOTIFIED Performed By: #### GLMET #### [facility] [address] [place] [address] BASIC PANEL Collected: 02/14/2018 Status: F Source: [facility] 5:03 AM HEALTH SYSTEM REPOSITORY TYPE CODE [...] Gap 13 Performed By: #### P8 #### [place] [address] MDRD GFR Collected: 02/14/2018 Status: F Source: [facility] 5:03 AM HEALTH SYSTEM REPOSITORY TYPE CODE TESTS RESULT OUT OF RANGE REFERENCE UNITS LAB GFRFN(LOINC >60mL/min/1.73m ) 2 eGFR >60 Result Comment: If the patient is , multiply the result by 1.210. Performed By: #### GFR #### [place] [address] GLUCOSE METER Collected: 02/13/2018 Status: F Source: [facility] 11:49 PM HEALTH SYSTEM REPOSITORY TYPE CODE TESTS RESULT OUT OF REFERENCE UNITS RANGE LAB GLUBL(LOINC 70-99 mg/dL ) High Glucose Meter 134 Result Comment: RN NOTIFIED Performed By: #### GLMET #### [place] [address] GLUCOSE METER Collected: 02/13/2018 Status: F Source: [facility] 9:46 PM HEALTH SYSTEM REPOSITORY TYPE CODE TESTS RESULT OUT OF REFERENCE UNITS RANGE LAB GLUBL(LOINC 70-99 mg/dL ) High Glucose Meter 106 Result Comment: RN NOTIFIED Performed By: #### GLMET #### [address] [place], [place] [address] PROGRESS Observed: 02/13/2018 Status: COMPLETED Source: [place] 8:24 PM CLINIC OTHER CAMPUS REPOSITORY HNO ID: [id number] Author: Paulette (Rn) ANGELINA Garibay Service: Critical Care Author Type: Registered Nurse Type: Progress Notes Filed: 02/13/2018 8:25 PM Note Text: HR 150-182. Dr. Aguilar paged to bedside. See new orders. GLUCOSE METER Collected: 02/13/2018 Status: F Source: [facility] 8:19 PM HEALTH SYSTEM REPOSITORY TYPE CODE TESTS RESULT OUT OF REFERENCE UNITS RANGE LAB GLUBL(LOINC 70-99 mg/dL ) High Glucose Meter 104 Result Comment: RN NOTIFIED Performed By: #### GLMET #### [address] [address] PROGRESS Observed: 02/13/2018 Status: COMPLETED Source: [place] 7:46 PM [facility] REPOSITORY HNO ID: [id number] Author: Paulette Aguilar Service: Critical Care Author [...] procedures. SIGNATURE: Paulette Aguilar MD [facility] PAGER:[phone] DATE of SERVICE: February 13, 2018 TIME of SERVICE: 7:46 PM BLOOD GAS ARTERIAL Collected: 02/13/2018 Status: F Source: [facility] 7:[facility] REPOSITORY TYPE CODE TESTS [...] Excess -1.3 Performed By: #### ABG #### [place] [address] BASIC PANEL Collected: 02/13/2018 Status: F Source: [address] [facility] REPOSITORY TYPE CODE TESTS [...] Gap 9 Performed By: #### P8 #### [place] [address] MAGNESIUM BLOOD Collected: 02/13/2018 Status: F Source: [facility] 7:[facility] REPOSITORY TYPE CODE TESTS RESULT OUT OF REFERENCE UNITS RANGE LAB MAG(LOINC) 1.6-2.6 mg/dL Magnesium Blood 2.2 Performed By: #### MAG #### [facility] [address] [place] [address] MDRD GFR Collected: 02/13/2018 Status: F Source: [facility] 7:45 PM HEALTH SYSTEM REPOSITORY TYPE CODE TESTS RESULT OUT OF RANGE REFERENCE UNITS LAB GFRFN(LOINC >60mL/min/1.73m ) 2 eGFR >60 Result Comment: If the patient is , multiply the result by 1.210. Performed By: #### GFR #### [facility] [address] [place] [address] PROGRESS Observed: 02/13/2018 Status: COMPLETED Source: [place] 5:59 PM CLINIC OTHER [place] REPOSITORY HNO ID: [id number] Author: Juan Cabral Service: Cardiovascular Medicine Author Type: Physician Type: Progress Notes Filed: 02/13/2018 5:59 PM Note Text: Result Noted. Patient is currently hospitalized and managed by the in-patient team. Juan Cabral MD GLUCOSE METER Collected: 02/13/2018 Status: F Source: [facility] 5:51 PM HEALTH SYSTEM REPOSITORY TYPE CODE TESTS RESULT OUT OF REFERENCE UNITS RANGE LAB GLUBL(LOINC 70-99 mg/dL ) Glucose Meter 92 Result Comment: RN NOTIFIED Performed By: #### GLMET #### [facility] [address] [place] [address] PROGRESS Observed: 02/13/2018 Status: COMPLETED Source: [place] 5:36 PM [facility] OTHER [place] REPOSITORY HNO ID: [id number] Author: Juan Cabral Service: Cardiovascular Medicine Author Type: Physician Type: Progress Notes Filed: 02/13/2018 5:36 PM Note Text: Result Noted. Patient is currently hospitalized and managed by the in-patient team. Juan Cabral MD GLUCOSE METER Collected: 02/13/2018 Status: F Source: [facility] 4:12 PM HEALTH SYSTEM REPOSITORY TYPE CODE TESTS RESULT OUT OF REFERENCE UNITS RANGE LAB GLUBL(LOINC 70-99 mg/dL ) High Glucose Meter 105 Result Comment: RN NOTIFIED Performed By: #### GLMET #### [facility] [address] [place] [address] GLUCOSE METER Collected: 02/13/2018 Status: F Source: [facility] 2:16 PM HEALTH SYSTEM REPOSITORY TYPE CODE TESTS RESULT OUT OF REFERENCE UNITS RANGE LAB GLUBL(LOINC 70-99 mg/dL ) High Glucose Meter 118 Result Comment: RN NOTIFIED Performed By: #### GLMET #### [facility] [address] [place], [place] [address] PROGRESS Observed: 02/13/2018 Status: COMPLETED Source: [place] 1:22 PM CLINIC OTHER CAMPUS REPOSITORY HNO ID: [id number] Author: Keon Chance Service: Pulmonary Disease Author [...] As Recurrent) Nstemi (Non-St Elevated Myocardial Infarction) ([facility]) Nsvt (Nonsustained Ventricular Tachycardia) ([facility]) Nicotine use disorder, F17.2 Subjective [...] 39.4 48.2* 47.4* 62.0* -- -- -- [id number] 96.1 93.6* 95.2 97.6 96.2 -- -- [...] URINALYSIS: Recent Labs 02/10/18 0819 02/10/18 0547 02/09/18 2015 02/09/18 1738 02/09/18 1400 02/09/18 1252 02/09/18 1217 02/09/18 1144 PH 7.392 7.385 7.267* 7.261* 7.193* 7.236* 7.372 7.415 Assessment/Plan ASSESSMENT: ACTIVE PROBLEM LIST Inguinal Hernia Without Mention of Obstruction Or Gangrene, Unilateral Or Unspecified, (Not Specified As Recurrent) Nstemi (Non-St Elevated Myocardial Infarction) ([facility]) Nsvt (Nonsustained Ventricular Tachycardia) ([facility]) Nicotine use disorder, F17.2 S/P [...] of care, medical plan for the day, hr business partner consultant recommendations, medical disposition and current medical [...] services: 40 minutes. SIGNATURE: Keon Chance MD [facility] PAGER:[phone] DATE of SERVICE: February 13, 2018 TIME of SERVICE: 1:22 PM PROGRESS Observed: 02/13/2018 Status: COMPLETED Source: [place] 11:53 AM [facility] REPOSITORY HNO ID: [id number] Author: Juan Cabral Service: Cardiovascular Medicine Author Type: Physician Type: Progress Notes Filed: 02/13/2018 11:53 AM Note Text: Result Noted. Patient is currently hospitalized and managed by the in-patient team. Juan Cabral MD PROGRESS Observed: 02/13/2018 Status: COMPLETED Source: [place] 11:39 AM [facility] REPOSITORY HNO ID: [id number] Author: Misti Stein (Pa) Service: Cardiac Surgery Author Type: Physician Trade Economist Type: Progress Notes Filed: 02/13/2018 3:11 PM [...] February 13, 2018 TIME: 11:39 AM PAGER/CONTACT #:[phone] [id number] GLUCOSE METER Collected: 02/13/2018 Status: F Source: [facility] 11:16 AM HEALTH SYSTEM REPOSITORY TYPE CODE TESTS RESULT OUT OF REFERENCE UNITS RANGE LAB GLUBL(LOINC 70-99 mg/dL ) High Glucose Meter 119 Result Comment: RN NOTIFIED Performed By: #### GLMET #### [place] [address] THERAPY NT Observed: 02/13/2018 Status: COMPLETED Source: [place] 11:13 AM [facility] REPOSITORY HNO ID: [id number] Author: Lexy MoodyOtr/LKristin Garcia Service: Occupational Therapy Author Type: Occupational Therapist Type: Therapy (PT/OT/Speech/Resp) Filed: 02/13/2018 11:14 AM Note Text: OCCUPATIONAL THERAPY MISSED VISIT SERVICE DATE: 02/13/2018 SERVICE TIME: 1113 to 1114 ROOM: [place] [address] Attempted Evaluation. Patient not seen due to (intubated). Will continue to follow as able and appropriate. SIGNATURE: Lexy Garcia OTR/L PATIENT NAME: Jeffrey Chaudhari Indoe DATE: February 13, 2018 TIME: 11:13 AM PAGER/CONTACT #: [phone] THERAPY NT Observed: 02/13/2018 Status: COMPLETED Source: [place] 9:52 AM [facility] REPOSITORY HNO ID: [id number] Author: Ursula MoodyPtKristin Goyal Service: Physical Therapy Author Type: Physical Therapist Type: Therapy (PT/OT/Speech/Resp) Filed: 02/13/2018 9:53 AM Note Text: PHYSICAL THERAPY MISSED VISIT SERVICE DATE: 02/13/2018 SERVICE TIME: 09 to 0952 ROOM: [place] [address] Attempted Evaluation. Patient not seen due to Not following commands (Intubated at this time). SIGNATURE: Ursula Goyal, PT PATIENT NAME: Jeffrey Chaudhari Indoe DATE: February 13, 2018 TIME: 9:53 AM PAGER/CONTACT #: GLUCOSE METER Collected: 02/13/2018 Status: F Source: [facility] 9:47 AM HEALTH SYSTEM REPOSITORY TYPE CODE TESTS RESULT OUT OF REFERENCE UNITS RANGE LAB GLUBL(LOINC 70-99 mg/dL ) Glucose Meter 98 Result Comment: RN NOTIFIED Performed By: #### GLMET #### [facility] [address] [place] [id number] CASE MANAGEM Observed: 02/13/2018 Status: COMPLETED Source: [place] 9:31 AM [facility] REPOSITORY HNO ID: [id number] Author: Ale MoodyRn) ANGELINA Key Service: (none) Author Type: Registered Nurse Type: Care Mgt Progress Note Filed: 02/13/2018 9:33 AM Note Text: CARE MANAGEMENT PROGRESS NOTE SERVICE DATE: 02/13/2018 SERVICE TIME: 9:32 AM LOS: 6 days Needs Prior to Discharge: OT/PT Evaluation;Discharge Transportation;Accepting Facility Pt still intubated. Spoke with sister Trev (here from [place] till Tuesday--but considering extending if pt still on ventilator) Emotional support given. Will follow once extubated and will need evals for anticipated Vest tcu pending loc needs SIGNATURE: Ale Key RN PATIENT NAME: Jeffrey Cullen DATE: February 13, 2018 TIME: 9:32 AM PAGER/CONTACT #: [phone] PROGRESS Observed: 02/13/2018 Status: COMPLETED Source: [place] 9:07 AM [facility] REPOSITORY HNO ID: [id number] Author: Juan Cabral Service: Cardiovascular Medicine Author Type: Physician Type: Progress Notes Filed: 02/13/2018 9:07 AM Note Text: Result Noted. Patient is currently hospitalized and managed by the in-patient team. Juan Cabral MD GLUCOSE METER Collected: 02/13/2018 Status: F Source: [facility] 7:47 AM HEALTH SYSTEM REPOSITORY TYPE CODE TESTS RESULT OUT OF REFERENCE UNITS RANGE LAB GLUBL(LOINC 70-99 mg/dL ) High Glucose Meter 110 Result Comment: RN NOTIFIED Performed By: #### GLMET #### [place] [address] PROGRESS Observed: 02/13/2018 Status: COMPLETED Source: [place] 6:42 AM [facility] OTHER [place] REPOSITORY HNO ID: [id number] Author: Juan Cabral Service: Cardiovascular Medicine Author Type: Physician Type: Progress Notes Filed: 02/13/2018 6:42 AM Note Text: Result Noted. Patient is currently hospitalized and managed by the in-patient team. Juan Cabral MD CHEST 1 VIEW Observed: 02/13/2018 Status: F Source: [facility] 6:14 AM HEALTH SYSTEM REPOSITORY Performed at [facility] APPROVED BY: Ismael Marin MD EXAM TITLE: [...] GLUCOSE METER Collected: 02/13/2018 Status: F Source: [facility] 6:12 AM HEALTH SYSTEM REPOSITORY TYPE CODE TESTS RESULT OUT OF REFERENCE UNITS RANGE LAB GLUBL(LOINC 70-99 mg/dL ) High Glucose Meter 102 Result Comment: RN NOTIFIED Performed By: #### GLMET #### [facility] [address] [place] [address] HEMOGRAM Collected: 02/13/2018 Status: F Source: [facility] 4:50 AM HEALTH SYSTEM REPOSITORY TYPE CODE [...] MPV 10.1 Performed By: #### CBC1 #### [place] [address] BASIC PANEL Collected: 02/13/2018 Status: F Source: [facility] 4:50 AM HEALTH SYSTEM REPOSITORY TYPE CODE [...] Gap 11 Performed By: #### P8 #### [place] [address] MDRD GFR Collected: 02/13/2018 Status: F Source: [facility] 4:50 AM HEALTH SYSTEM REPOSITORY TYPE CODE TESTS RESULT OUT OF RANGE REFERENCE UNITS LAB GFRFN(LOINC >60mL/min/1.73m ) 2 eGFR >60 Result Comment: If the patient is , multiply the result by 1.210. Performed By: #### GFR #### [place] [address] GLUCOSE METER Collected: 02/13/2018 Status: F Source: [facility] 3:59 AM HEALTH SYSTEM REPOSITORY TYPE CODE TESTS RESULT OUT OF REFERENCE UNITS RANGE LAB GLUBL(LOINC 70-99 mg/dL ) High Glucose Meter 105 Result Comment: RN NOTIFIED Performed By: #### GLMET #### [place] [address] GLUCOSE METER Collected: 02/13/2018 Status: F Source: [facility] 1:53 AM HEALTH SYSTEM REPOSITORY TYPE CODE TESTS RESULT OUT OF REFERENCE UNITS RANGE LAB GLUBL(LOINC 70-99 mg/dL ) High Glucose Meter 107 Performed By: #### GLMET #### [place] [address] GLUCOSE METER Collected: 02/12/2018 Status: F Source: [facility] 11:53 PM HEALTH SYSTEM REPOSITORY TYPE CODE TESTS RESULT OUT OF REFERENCE UNITS RANGE LAB GLUBL(LOINC 70-99 mg/dL ) High Glucose Meter 103 Result Comment: RN NOTIFIED Performed By: #### GLMET #### [place] [address] GLUCOSE METER Collected: 02/12/2018 Status: F Source: [facility] 9:28 PM HEALTH SYSTEM REPOSITORY TYPE CODE TESTS RESULT OUT OF REFERENCE UNITS RANGE LAB GLUBL(LOINC 70-99 mg/dL ) High Glucose Meter 105 Result Comment: RN NOTIFIED Performed By: #### GLMET #### [facility] [address] [place] [address] GLUCOSE METER Collected: 02/12/2018 Status: F Source: [facility] 8:28 PM HEALTH SYSTEM REPOSITORY TYPE CODE TESTS RESULT OUT OF REFERENCE UNITS RANGE LAB GLUBL(LOINC 70-99 mg/dL ) High Glucose Meter 102 Result Comment: RN NOTIFIED Performed By: #### GLMET #### [facility] [address] [place] [address] GLUCOSE METER Collected: 02/12/2018 Status: F Source: [facility] 6:01 PM HEALTH SYSTEM REPOSITORY TYPE CODE TESTS RESULT OUT OF REFERENCE UNITS RANGE LAB GLUBL(LOINC 70-99 mg/dL ) Glucose Meter 95 Performed By: #### GLMET #### [facility] [address] [place] [address] GLUCOSE METER Collected: 02/12/2018 Status: F Source: [facility] 3:42 PM HEALTH SYSTEM REPOSITORY TYPE CODE TESTS RESULT OUT OF REFERENCE UNITS RANGE LAB GLUBL(LOINC 70-99 mg/dL ) Glucose Meter 97 Result Comment: RN NOTIFIED Performed By: #### GLMET #### [facility] [address] [place] [address] PROGRESS Observed: 02/12/2018 Status: COMPLETED Source: [place] 3:10 PM CLINIC OTHER CAMPUS REPOSITORY O ID: [id number] Author: Elkin Zuleta Service: Critical Care Author [...] Set Ventilator Respiratory Rate (BPM): 16 (02/12/18 1219) Total Respiratory Rate (BPM): 24 (02/12/18 121) Tidal Volume Set (mL): 550 (02/12/18 121) Exhaled Tidal Volume (mL): 473 (02/12/18 0859) Minute Volume (L): 9.5 (02/12/18 1219) Peak Inspiratory Pressure (cm H2O): 17 (02/12/18 1219) PEEP/CPAP (cm H2O): 10 (02/12/18 1219) [...] FINDINGS: 02/12: IMPRESSION: ? Interval removal of [place] catheter left-sided thoracostomy tube. ? No significant [...] As Recurrent) Nstemi (Non-St Elevated Myocardial Infarction) ([facility]) Nsvt (Nonsustained Ventricular Tachycardia) ([facility]) Nicotine use disorder, F17.2 1. [...] 12, 2018 TIME: 3:22 PM PAGER/CONTACT #: [phone] GLUCOSE METER Collected: 02/12/2018 Status: F Source: [facility] 2:32 PM HEALTH SYSTEM REPOSITORY TYPE CODE TESTS RESULT OUT OF REFERENCE UNITS RANGE LAB GLUBL(LOINC 70-99 mg/dL ) High Glucose Meter 103 Result Comment: RN NOTIFIED Performed By: #### GLMET #### [place] [address] PROGRESS Observed: 02/12/2018 Status: COMPLETED Source: [place] 11:02 AM [facility] REPOSITORY HNO ID: [id number] Author: Juan Cabral Service: Cardiovascular Medicine Author Type: Physician Type: Progress Notes Filed: 02/12/2018 11:02 AM Note Text: Result Noted. Patient is currently hospitalized and managed by the in-patient team. Juan Cabral MD PROGRESS Observed: 02/12/2018 Status: COMPLETED Source: [place] 10:45 AM [facility] REPOSITORY HNO ID: [id number] Author: Evans Parkinson Service: Cardiac Surgery Author [...] 2018 TIME: 10:46 AM PAGER/CONTACT #: [phone] GLUCOSE METER Collected: 02/12/2018 Status: F Source: [facility] 10:11 AM HEALTH SYSTEM REPOSITORY TYPE CODE TESTS RESULT OUT OF REFERENCE UNITS RANGE LAB GLUBL(LOINC 70-99 mg/dL ) High Glucose Meter 129 Result Comment: RN NOTIFIED Performed By: #### GLMET #### [facility] [address] [place], [place] [address] GLUCOSE METER Collected: 02/12/2018 Status: F Source: [facility] 8:02 AM HEALTH SYSTEM REPOSITORY TYPE CODE TESTS RESULT OUT OF REFERENCE UNITS RANGE LAB GLUBL(LOINC 70-99 mg/dL ) High Glucose Meter 116 Result Comment: RN NOTIFIED Performed By: #### GLMET #### [facility] [address] [place], [place] [address] GLUCOSE METER Collected: 02/12/2018 Status: F Source: [facility] 6:12 AM HEALTH SYSTEM REPOSITORY TYPE CODE TESTS RESULT OUT OF REFERENCE UNITS RANGE LAB GLUBL(LOINC 70-99 mg/dL ) High Glucose Meter 105 Result Comment: RN NOTIFIED Performed By: #### GLMET #### [facility] [address] [place] [id number] CHEST 1 VIEW Observed: 02/12/2018 Status: F Source: [facility] 5:15 AM HEALTH SYSTEM REPOSITORY Performed at [facility] APPROVED BY: ELAINE SWEENEY MD EXAM TITLE: PORTABLE AP/PA CHEST X RAY DATE: 02/12/2018 05:11 COMPARISON: 02/11/2018 CLINICAL INDICATION/HISTORY: Status post CABG ENCOUNTER: Not applicable TECHNIQUE: Single portable AP/PA radiograph of the chest RESULT: Lines, tubes, and devices: Interval removal of [place] catheter and left-sided thoracostomy tube. Right internal [...] tissues grossly intact. IMPRESSION: Interval removal of [place] catheter left-sided thoracostomy tube. No significant interval change regarding mixed interstitial and airspace opacities at the right mid and bilateral lower lung zones. Primary differential considerations include atelectasis, consolidation or edema. Mild cardiomegaly, unchanged. No significant interval change regarding endotracheal tube. Enteric tube overlies the proximal stomach, tip not included on examination. BASIC PANEL Collected: 02/12/2018 Status: F Source: [facility] 5:01 AM HEALTH SYSTEM REPOSITORY TYPE CODE [...] Gap 7 Performed By: #### P8 #### [facility] [address] [place] [address] MDRD GFR Collected: 02/12/2018 Status: F Source: [facility] 5:01 HEALTH SYSTEM REPOSITORY TYPE CODE TESTS RESULT OUT OF RANGE REFERENCE UNITS LAB GFRFN(LOINC >60mL/min/1.73m ) 2 eGFR >60 Result Comment: If the patient is , multiply the result by 1.210. Performed By: #### GFR #### [facility] [address] [place] [address] HEMOGRAM/DIFF Collected: 02/12/2018 Status: F Source: [facility] 5:01 HEALTH SYSTEM REPOSITORY TYPE CODE TESTS [...] 1.76 LAB MONON(LOIN 0.30-0.82 thou/cmm C) Abs. [place] 0.73 LAB EOSN(LOINC 0.04-0.54 thou/cmm ) Abs. Eosin 0.09 LAB BASON(LOIN 0.01-0.08 thou/cmm C) Abs. Baso 0.03 Performed By: #### CBCD1 #### [place] [address] GLUCOSE METER Collected: 02/12/2018 Status: F Source: [facility] 4:29 AM HEALTH SYSTEM REPOSITORY TYPE CODE TESTS RESULT OUT OF REFERENCE UNITS RANGE LAB GLUBL(LOINC 70-99 mg/dL ) High Glucose Meter 104 Result Comment: RN NOTIFIED Performed By: #### GLMET #### [place] [address] GLUCOSE METER Collected: 02/12/2018 Status: F Source: [facility] 2:32 AM HEALTH SYSTEM REPOSITORY TYPE CODE TESTS RESULT OUT OF REFERENCE UNITS RANGE LAB GLUBL(LOINC 70-99 mg/dL ) High Glucose Meter 126 Result Comment: RN NOTIFIED Performed By: #### GLMET #### [place] [address] GLUCOSE METER Collected: 02/12/2018 Status: F Source: [facility] 12:31 AM HEALTH SYSTEM REPOSITORY TYPE CODE TESTS RESULT OUT OF REFERENCE UNITS RANGE LAB GLUBL(LOINC 70-99 mg/dL ) High Glucose Meter 136 Result Comment: RN NOTIFIED Performed By: #### GLMET #### [facility] [address] [place], [place] [address] GLUCOSE METER Collected: 02/11/2018 Status: F Source: [facility] 10:05 PM HEALTH SYSTEM REPOSITORY TYPE CODE TESTS RESULT OUT OF REFERENCE UNITS RANGE LAB GLUBL(LOINC 70-99 mg/dL ) High Glucose Meter 107 Result Comment: RN NOTIFIED Performed By: #### GLMET #### [facility] [address] [place] [id number] PROGRESS Observed: 02/11/2018 Status: COMPLETED Source: [place] 8:20 PM CLINIC OTHER CAMPUS REPOSITORY HNO ID: [id number] Author: Paulette (Rn) ANGELINA Garibay Service: Critical Care Author Type: Registered [...] GLUCOSE METER Collected: 02/11/2018 Status: F Source: [facility] 8:09 PM HEALTH SYSTEM REPOSITORY TYPE CODE TESTS RESULT OUT OF REFERENCE UNITS RANGE LAB GLUBL(LOINC 70-99 mg/dL ) Glucose Meter 94 Result Comment: RN NOTIFIED Performed By: #### GLMET #### [facility] [address] [place] [id number] GLUCOSE METER Collected: 02/11/2018 Status: F Source: [facility] 6:02 PM HEALTH SYSTEM REPOSITORY TYPE CODE TESTS RESULT OUT OF REFERENCE UNITS RANGE LAB GLUBL(LOINC 70-99 mg/dL ) High Glucose Meter 107 Result Comment: RN NOTIFIED Performed By: #### GLMET #### [facility] [address] [place], [place] [address] GLUCOSE METER Collected: 02/11/2018 Status: F Source: [facility] 4:25 PM HEALTH SYSTEM REPOSITORY TYPE CODE TESTS RESULT OUT OF REFERENCE UNITS RANGE LAB GLUBL(LOINC 70-99 mg/dL ) High Glucose Meter 103 Result Comment: RN NOTIFIED Performed By: #### GLMET #### [facility] [address] [place] [id number] GLUCOSE METER Collected: 02/11/2018 Status: F Source: [facility] 2:33 PM HEALTH SYSTEM REPOSITORY TYPE CODE TESTS RESULT OUT OF REFERENCE UNITS RANGE LAB GLUBL(LOINC 70-99 mg/dL ) High Glucose Meter 115 Result Comment: RN NOTIFIED Performed By: #### GLMET #### [facility] [address] [place] [address] Observed: 02/11/2018 Status: F Source: [facility] 2:33 PM HEALTH SYSTEM RESPIRATORY REPOSITORY Test performed at [facility] Absence of normal oropharyngeal shannan Moderate WBC Moderate Gram negative bacilli Few Mixed shannan ORGANISM: Klebsiella oxytoca (ID: 1) Many For sensitivity report see Date/ ORGANISM: Escherichia coli (ID: 2) Many Performed By: #### C_RES #### [facility] [address] [place] [address] GLUCOSE METER Collected: 02/11/2018 Status: F Source: [facility] 1:12 PM HEALTH SYSTEM REPOSITORY TYPE CODE TESTS RESULT OUT OF REFERENCE UNITS RANGE LAB GLUBL(LOINC 70-99 mg/dL ) High Glucose Meter 107 Result Comment: RN NOTIFIED Performed By: #### GLMET #### [facility] [address] [place] [address] PROGRESS Observed: 02/11/2018 Status: COMPLETED Source: [place] 12:37 PM [facility] REPOSITORY HNO ID: [id number] Author: Juan Cabral Service: Cardiovascular Medicine Author Type: Physician Type: Progress Notes Filed: 02/11/2018 12:37 PM Note Text: Result Noted. Patient is currently hospitalized and managed by the in-patient team. Juan Cabral MD PROGRESS Observed: 02/11/2018 Status: COMPLETED Source: [place] 10:15 AM CLINIC OTHER [place] REPOSITORY HNO ID: [id number] Author: Evans Parkinson Service: Cardiac Surgery Author [...] 2018 TIME: 10:15 AM PAGER/CONTACT #: [phone] GLUCOSE METER Collected: 02/11/2018 Status: F Source: [facility] 10:08 AM HEALTH SYSTEM REPOSITORY TYPE CODE TESTS RESULT OUT OF REFERENCE UNITS RANGE LAB GLUBL(LOINC 70-99 mg/dL ) Glucose Meter 95 Result Comment: RN NOTIFIED Performed By: #### GLMET #### [facility] [address] [place] [address] NUTRITION Observed: 02/11/2018 Status: COMPLETED Source: [place] 10:07 AM CLINIC OTHER CAMPUS REPOSITORY HNO ID: [id number] Author: Sandra Alvarado) TREASURE Almaguer Service: Nutrition [...] REPAIR ING HERNIA,5+Y/O,REDUCIBL 1989 Hernia repair, inguinal,left ACTIVE PROBLEM LIST Inguinal [...] lb) 12/04/07 : 100.2 kg (221 lb) [place] Body Weight: 78.2kg Resting Metabolic Rate: 1897 Estimated kilocalorie needs: 8771-9703 kilocalories determined by 25-30 kcal/kg ideal body weight Estimated protein needs: 102-133 grams determined by 1.3-1.7 g/kg [place] weight Estimated fluid needs: 3073-9762 milliliters based on 1 mL per kcal [...] ?F) Resp (!) 33 Ht 180.3 cm (' 10.) Wt 110.1 kg (242 lb 11.6 oz) [...] February 11, 2018 TIME: 10:08 AM PAGER: [phone] NURSING PROG Observed: 02/11/2018 Status: COMPLETED Source: [place] 9:56 AM [facility] REPOSITORY HNO ID: [id number] Author: Dionicio (Rn) ANGELINA Prieto Service: Nursing Author Type: Registered Nurse Type: Nursing Progress Note Filed: 02/11/2018 9:59 AM Note Text: Nursing Progress Note Patient Name: Jeffrey Cullen Patient Location: [place] [address] [address]* Sedation holiday attempted at 0920 and ended [...] RN PROGRESS Observed: 02/11/2018 Status: COMPLETED Source: [place] 9:00 AM [facility] REPOSITORY HNO ID: [id number] Author: Elkin Zuleta Service: Critical Care Author [...] Score: Pt. 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 BP 88/68 Pulse [...] 550 (02/11/18827) Exhaled Tidal Volume (mL): 768 (02/11/18 0402) Minute Volume (L): 10 (02/11/18827) Peak Inspiratory [...] 11, 2018 TIME: 9:12 AM PAGER/CONTACT #: [phone] GLUCOSE METER Collected: 02/11/2018 Status: F Source: [facility] 8:12 AM HEALTH SYSTEM REPOSITORY TYPE CODE TESTS RESULT OUT OF REFERENCE UNITS RANGE LAB GLUBL(LOINC 70-99 mg/dL ) Glucose Meter 95 Result Comment: RN NOTIFIED Performed By: #### GLMET #### [place] [address] GLUCOSE METER Collected: 02/11/2018 Status: F Source: [facility] 7:23 AM HEALTH SYSTEM REPOSITORY TYPE CODE TESTS RESULT OUT OF REFERENCE UNITS RANGE LAB GLUBL(LOINC 70-99 mg/dL ) Glucose Meter 92 Result Comment: RN NOTIFIED Performed By: #### GLMET #### [place] [address] PROGRESS Observed: 02/11/2018 Status: COMPLETED Source: [place] 6:35 AM CLINIC OTHER CAMPUS REPOSITORY HNO ID: [id number] Author: Paulette (Rn) ANGELINA Garibay Service: Critical Care Author Type: Registered [...] 1 VIEW Observed: 02/11/2018 Status: F Source: [facility] 5:07 AM HEALTH SYSTEM REPOSITORY Performed at [facility] APPROVED BY: ELAINE SWEENEY MD EXAM TITLE: [...] right internal jugular central venous sheath and [place] catheter, the catheter tip appears to be [...] useful. Again demonstrated is coiling of the [place] catheter in the region of the distal main/proximal left main pulmonary artery. Mixed images from airspace opacities at the right mid and left mid and lower lung zones, possibly related atelectasis or consolidation. Little interval change regarding mildly enlarged cardiac silhouette. BASIC PANEL Collected: 02/11/2018 Status: F Source: [facility] 4:20 AM HEALTH SYSTEM REPOSITORY TYPE CODE [...] Gap 9 Performed By: #### P8 #### [place] [address] MAGNESIUM BLOOD Collected: 02/11/2018 Status: F Source: [facility] 4:20 AM HEALTH SYSTEM REPOSITORY TYPE CODE TESTS RESULT OUT OF REFERENCE UNITS RANGE LAB MAG(LOINC) 1.6-2.6 mg/dL Magnesium Blood 2.6 Performed By: #### MAG #### [place] [address] MDRD GFR Collected: 02/11/2018 Status: F Source: [facility] 4:20 AM HEALTH SYSTEM REPOSITORY TYPE CODE TESTS RESULT OUT OF RANGE REFERENCE UNITS LAB GFRFN(LOINC >60mL/min/1.73m ) 2 eGFR 52.89 Result Comment: If the patient is , multiply the result by 1.210. Performed By: #### GFR #### [place] [address] HEMOGRAM Collected: 02/11/2018 Status: F Source: [facility] 4:20 AM HEALTH SYSTEM REPOSITORY TYPE CODE [...] MPV 10.4 Performed By: #### CBC1 #### [place] [address] PHOSPHORUS BLOOD Collected: 02/11/2018 Status: F Source: [facility] 4:20 AM HEALTH SYSTEM REPOSITORY TYPE CODE TESTS RESULT OUT OF REFERENCE UNITS RANGE LAB PHOS(LOINC 2.5-4.9 mg/dL ) Phosphorus Blood 3.6 Performed By: #### PHOS #### [place] [address] GLUCOSE METER Collected: 02/11/2018 Status: F Source: [facility] 4:19 AM HEALTH SYSTEM REPOSITORY TYPE CODE TESTS RESULT OUT OF REFERENCE UNITS RANGE LAB GLUBL(LOINC 70-99 mg/dL ) High Glucose Meter 105 Result Comment: RN NOTIFIED Performed By: #### GLMET #### [place] [address] GLUCOSE METER Collected: 02/11/2018 Status: F Source: [facility] 2:28 AM HEALTH SYSTEM REPOSITORY TYPE CODE TESTS RESULT OUT OF REFERENCE UNITS RANGE LAB GLUBL(LOINC 70-99 mg/dL ) High Glucose Meter 110 Result Comment: RN NOTIFIED Performed By: #### GLMET #### [place] [address] GLUCOSE METER Collected: 02/11/2018 Status: F Source: [facility] 12:48 AM HEALTH SYSTEM REPOSITORY TYPE CODE TESTS RESULT OUT OF REFERENCE UNITS RANGE LAB GLUBL(LOINC 70-99 mg/dL ) High Glucose Meter 123 Result Comment: RN NOTIFIED Performed By: #### GLMET #### [facility] [address] [place], [place] [address] GLUCOSE METER Collected: 02/10/2018 Status: F Source: [facility] 9:49 PM HEALTH SYSTEM REPOSITORY TYPE CODE TESTS RESULT OUT OF REFERENCE UNITS RANGE LAB GLUBL(LOINC 70-99 mg/dL ) Glucose Meter 89 Result Comment: RN NOTIFIED Performed By: #### GLMET #### [facility] [address] [place], [place] [address] GLUCOSE METER Collected: 02/10/2018 Status: F Source: [facility] 7:41 PM HEALTH SYSTEM REPOSITORY TYPE CODE TESTS RESULT OUT OF REFERENCE UNITS RANGE LAB GLUBL(LOINC 70-99 mg/dL ) Glucose Meter 97 Result Comment: RN NOTIFIED Performed By: #### GLMET #### [facility] [address] [place] [address] GLUCOSE METER Collected: 02/10/2018 Status: F Source: [facility] 5:55 PM HEALTH SYSTEM REPOSITORY TYPE CODE TESTS RESULT OUT OF REFERENCE UNITS RANGE LAB GLUBL(LOINC 70-99 mg/dL ) Glucose Meter 98 Result Comment: RN NOTIFIED Performed By: #### GLMET #### [facility] [address] [place], [place] [address] PROGRESS Observed: 02/10/2018 Status: COMPLETED Source: [place] 4:47 PM CLINIC OTHER CAMPUS REPOSITORY O ID: [id number] Author: Juan Cabral Service: Cardiovascular Medicine Author Type: Physician Type: Progress Notes Filed: 02/10/2018 4:47 PM Note Text: Result Noted. Patient is currently hospitalized and managed by the in-patient team. Juan Cabral MD GLUCOSE METER Collected: 02/10/2018 Status: F Source: [facility] 4:04 PM HEALTH SYSTEM REPOSITORY TYPE CODE TESTS RESULT OUT OF REFERENCE UNITS RANGE LAB GLUBL(LOINC 70-99 mg/dL ) Glucose Meter 88 Result Comment: RN NOTIFIED Performed By: #### GLMET #### [facility] [address] [place], [place] [address] IONIZED CALCIUM Collected: 02/10/2018 Status: F Source: [facility] 2:55 PM HEALTH SYSTEM REPOSITORY TYPE CODE TESTS RESULT OUT OF REFERENCE UNITS RANGE LAB CAION(LOINC 4.43-4.93 mg/dL ) Ionized 4.73 Calcium LAB PHCAI(LOINC 7.320-7.420 ) pH 7.377 LAB CAPH(LOINC) 4.36-4.73 mg/dL Ionized 4.67 Ca,PH7.4 Performed By: #### IONCA #### [place] [address] BASIC PANEL Collected: 02/10/2018 Status: F Source: [address] SYSTEM REPOSITORY TYPE CODE TESTS RESULT OUT [...] Gap 8 Performed By: #### P8 #### [place] [address] MAGNESIUM BLOOD Collected: 02/10/2018 Status: F Source: [address] SYSTEM REPOSITORY TYPE CODE TESTS RESULT OUT OF REFERENCE UNITS RANGE LAB MAG(LOINC) 1.6-2.6 mg/dL Magnesium Blood 2.5 Performed By: #### MAG #### [place] [address] PHOSPHORUS BLOOD Collected: 02/10/2018 Status: F Source: [address] SYSTEM REPOSITORY TYPE CODE TESTS RESULT OUT OF REFERENCE UNITS RANGE LAB PHOS(LOINC 2.5-4.9 mg/dL ) Phosphorus Blood 2.6 Performed By: #### PHOS #### [place] [address] MDRD GFR Collected: 02/10/2018 Status: F Source: [facility] 2:55 PM HEALTH SYSTEM REPOSITORY TYPE CODE TESTS RESULT OUT OF RANGE REFERENCE UNITS LAB GFRFN(LOINC >60mL/min/1.73m ) 2 eGFR >60 Result Comment: If the patient is , multiply the result by 1.210. Performed By: #### GFR #### [facility] [address] [place] [address] HEMOGRAM/DIFF Collected: 02/10/2018 Status: F Source: [facility] 2:55 PM HEALTH SYSTEM REPOSITORY TYPE CODE [...] 1.53 LAB MONON(LOINC) 0.30-0.82 thou/cmm High Abs. [place] 1.20 LAB EOSN(LOINC) 0.04-0.54 thou/cmm Low Abs. Eosin 0.00 LAB BASON(LOINC) 0.01-0.08 thou/cmm Abs. Baso 0.01 Result Comment: Smear scanned; tech agrees with automated differential Performed By: #### CBCD1 #### [facility] [address] [place] [address] PROGRESS Observed: 02/10/2018 Status: COMPLETED Source: [place] 2:34 PM CLINIC OTHER CAMPUS REPOSITORY HNO ID: [id number] Author: Juan Cabral Service: Cardiovascular Medicine Author Type: Physician Type: Progress Notes Filed: 02/10/2018 2:34 PM Note Text: Result Noted. Patient is currently hospitalized and managed by the in-patient team. Juan Cabral MD GLUCOSE METER Collected: 02/10/2018 Status: F Source: [facility] 2:10 PM HEALTH SYSTEM REPOSITORY TYPE CODE TESTS RESULT OUT OF REFERENCE UNITS RANGE LAB GLUBL(LOINC 70-99 mg/dL ) High Glucose Meter 107 Result Comment: RN NOTIFIED Performed By: #### GLMET #### [place] [address] Observed: 02/10/2018 Status: F Source: [facility] 2:00 PM HEALTH SYSTEM RESPIRATORY REPOSITORY Test performed at [facility] Few normal oropharyngeal shannan Many Mixed shannan Moderate WBC ORGANISM: Klebsiella oxytoca (ID: 1) Few Performed By: #### C_RES #### [place] [address] PROGRESS Observed: 02/10/2018 Status: COMPLETED Source: [place] 1:00 PM CLINIC OTHER CAMPUS REPOSITORY HNO ID: [id number] Author: Clementine Owen Service: Cardiovascular Surgery Author [...] 10, 2018 TIME: 4:10 PM PAGER/CONTACT #: [phone] ETX [id number] PROGRESS Observed: 02/10/2018 Status: COMPLETED Source: [place] 12:45 PM CLINIC OTHER CAMPUS REPOSITORY HNO ID: [id number] Author: Elkin Zuleta Service: Critical Care Author [...] Ventilator Mode: Pressure Regulated Volume Control (02/10/18 1139) Set Ventilator Respiratory Rate (BPM): 16 (02/10/181138) [...] postoperative changes. ?Note is made that the [place]aphne catheter appears coiled in the pulmonary [...] 10, 2018 TIME: 12:58 PM PAGER/CONTACT #: [phone] PROGRESS Observed: 02/10/2018 Status: COMPLETED Source: [place] 12:43 PM CLINIC OTHER CAMPUS REPOSITORY HNO ID: [id number] Author: Juan Cabral Service: Cardiovascular Medicine Author Type: Physician Type: Progress Notes Filed: 02/10/2018 12:43 PM Note Text: Result Noted. Patient is currently hospitalized and managed by the in-patient team. 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 No SOCIAL: Living Arrangement: Home Lives With: Alone Financial Resources: Retired Primary Contact: Extended Emergency Contact Information Primary Emergency Contact: Trev Carmen Relation: Sister Supportive: Yes Other Important Patient Contacts: None Caregiver Assessment: Caregiver is ready, willing and able to meet the patient's needs as recommended by the inter-professional team? sister returning to [facility] next tue--no other family Patient's transition needs [...] 0 I feel financially burdened by my [id number] expenses for my prescription medication: Agree completely [...] N/A sister and he had prev discussed [facility] plan to [place] [facility] at [facility] POTENTIAL TRANSITION PLANS Longterm Facility/Intermediate Care Facility To Be Determined Met with pt's sister at bedside (in [facility] from [place] through 02/15) NO other family. Prev discussed and now he will need rehab and would like to go to [facility]. Pt still intubated will follow up next week. Evals are ordered. PS tasked to follow SIGNATURE: Ale Key RN PATIENT NAME: Jeffrey Cullen DATE: February 10, 2018 TIME: 12:39 PM PAGER/CONT# [phone] THERAPY NT Observed: 02/10/2018 Status: COMPLETED Source: [place] 12:06 PM CLINIC OTHER CAMPUS REPOSITORY HNO ID: [id number] Author: Nuria Lopez/Miriam Young Service: Occupational Therapy Author Type: Occupational Therapist Type: Therapy (PT/OT/Speech/Resp) Filed: 02/10/2018 12:06 PM Note Text: OCCUPATIONAL THERAPY MISSED VISIT SERVICE DATE: 02/10/2018 SERVICE TIME: 1202 to 1202 ROOM: [place] [address] Attempted Evaluation. Patient not seen due to (s/p CABG 02/09 still intubated). SIGNATURE: XU Pop PATIENT NAME: Jeffrey Cullen DATE: February 10, 2018 TIME: 12:06 PM PAGER/CONTACT #: GLUCOSE METER Collected: 02/10/2018 Status: F Source: [facility] 11:57 AM HEALTH SYSTEM REPOSITORY TYPE CODE TESTS RESULT OUT OF REFERENCE UNITS RANGE LAB GLUBL(LOINC 70-99 mg/dL ) High Glucose Meter 105 Result Comment: RN NOTIFIED Performed By: #### GLMET #### [place] [address] THERAPY NT Observed: 02/10/2018 Status: COMPLETED Source: [place] 11:20 AM [facility] OTHER [place] REPOSITORY HNO ID: [id number] Author: Harpreet (Pt) Wilfred Service: Physical Therapy Author Type: Physical Therapist Type: Therapy (PT/OT/Speech/Resp) Filed: 02/10/2018 11:20 AM Note Text: PHYSICAL THERAPY MISSED VISIT SERVICE DATE: 02/10/2018 SERVICE TIME: 1119 to 1120 ROOM: [place] [address] Attempted Evaluation. Patient not seen due to Illness (Intubated). SIGNATURE: Harpreet Hardin PT PATIENT NAME: Jeffrey Cullen DATE: February 10, 2018 TIME: 11:20 AM PAGER/CONTACT #: PROGRESS Observed: 02/10/2018 Status: COMPLETED Source: [place] 10:27 AM [facility] REPOSITORY HNO ID: [id number] Author: Juan Cabral Service: Cardiovascular Medicine Author Type: Physician Type: Progress Notes Filed: 02/10/2018 10:27 AM Note Text: Result Noted. Patient is currently hospitalized and managed by the in-patient team. Juan Cabral MD GLUCOSE METER Collected: 02/10/2018 Status: F Source: [facility] 10:14 AM HEALTH SYSTEM REPOSITORY TYPE CODE TESTS RESULT OUT OF REFERENCE UNITS RANGE LAB GLUBL(LOINC 70-99 mg/dL ) High Glucose Meter 104 Result Comment: RN NOTIFIED Performed By: #### GLMET #### [place] [address] PROGRESS Observed: 02/10/2018 Status: COMPLETED Source: [place] 10:12 AM [facility] REPOSITORY HNO ID: [id number] Author: Juan Cabral Service: Cardiovascular Medicine Author Type: Physician Type: Progress Notes Filed: 02/10/2018 10:12 AM Note Text: Result Noted. Patient is currently hospitalized and managed by the in-patient team. Juan Cabral MD GLUCOSE METER Collected: 02/10/2018 Status: F Source: [facility] 9:10 AM HEALTH SYSTEM REPOSITORY TYPE CODE TESTS RESULT OUT OF REFERENCE UNITS RANGE LAB GLUBL(LOINC 70-99 mg/dL ) High Glucose Meter 112 Result Comment: RN NOTIFIED Performed By: #### GLMET #### [facility] [address] [place] [address] PROGRESS Observed: 02/10/2018 Status: COMPLETED Source: [place] 8:38 AM CLINIC OTHER CAMPUS REPOSITORY HNO ID: [id number] Author: Juan Cabral Service: Cardiovascular Medicine Author Type: Physician Type: Progress Notes Filed: 02/10/2018 8:38 AM Note Text: Result Noted. Patient is currently hospitalized and managed by the in-patient team. Juan Cabral MD BLOOD GAS ARTERIAL Collected: 02/10/2018 Status: F Source: [facility] 8:19 AM HEALTH SYSTEM REPOSITORY TYPE CODE [...] FIO2 50 Performed By: #### ABG #### [facility] [address] [place] [address] GLUCOSE METER Collected: 02/10/2018 Status: F Source: [facility] 7:46 AM HEALTH SYSTEM REPOSITORY TYPE CODE TESTS RESULT OUT OF REFERENCE UNITS RANGE LAB GLUBL(LOINC 70-99 mg/dL ) High Glucose Meter 101 Result Comment: RN NOTIFIED Performed By: #### GLMET #### [facility] [address] [place] [address] CHEST 1 VIEW Observed: 02/10/2018 Status: F Source: [facility] 6:17 AM HEALTH SYSTEM REPOSITORY Performed at [facility] APPROVED BY: Efren Benson MD EXAM TITLE: CHEST 1 VIEW DATE: 02/10/2018 06:03 INDICATION: Status post coronary artery bypass graft. COMPARISON: 02/09/2018 at 1420 Portable frontal view of the chest shows tip of endotracheal tube at the level of the aortic arch. An enteric tube is seen passing into the stomach. A right internal jugular [place] catheter is noted. It is presently looped in the pulmonary outflow tract. There is left-sided chest tube overlying the left midlung. Heart size is normal and stable. Intact median sternotomy wires. The lungs are grossly clear. IMPRESSION: Stable postoperative changes. Note is made that the [place]aphne catheter appears coiled in the pulmonary outflow tract. BLOOD GAS ARTERIAL Collected: 02/10/2018 Status: F Source: [facility] 5:47 AM HEALTH SYSTEM REPOSITORY TYPE CODE [...] Excess -1.7 Performed By: #### ABG #### [facility] [address] [place] [address] HEMOGRAM Collected: 02/10/2018 Status: F Source: [facility] 5:45 AM HEALTH SYSTEM REPOSITORY TYPE CODE [...] MPV 10.0 Performed By: #### CBC1 #### [place] [address] PROTIME Collected: 02/10/2018 Status: F Source: [facility] 5:45 AM HEALTH SYSTEM REPOSITORY TYPE CODE TESTS RESULT OUT OF REFERENCE UNITS RANGE LAB PTI(LOINC) 9.3-11.9 sec Prothrombin High Time 12.6 LAB INR(LOINC) INR 1.23 Result Comment: Standard Therapy 2.0-3.0 High Dose 2.5-3.5 Performed By: #### PT #### [place] [address] BASIC PANEL Collected: 02/10/2018 Status: F Source: [facility] 5:[facility] REPOSITORY TYPE CODE TESTS RESULT [...] Gap 10 Performed By: #### P8 #### [place] [address] MAGNESIUM BLOOD Collected: 02/10/2018 Status: F Source: [facility] 5:45 AM HEALTH SYSTEM REPOSITORY TYPE CODE TESTS RESULT OUT OF REFERENCE UNITS RANGE LAB MAG(LOINC) 1.6-2.6 mg/dL Magnesium Blood 2.3 Performed By: #### MAG #### [facility] [address] [place] [address] MDRD GFR Collected: 02/10/2018 Status: F Source: [facility] 5:45 AM HEALTH SYSTEM REPOSITORY TYPE CODE TESTS RESULT OUT OF RANGE REFERENCE UNITS LAB GFRFN(LOINC >60mL/min/1.73m ) 2 eGFR >60 Result Comment: If the patient is , multiply the result by 1.210. Performed By: #### GFR #### [place] [address] GLUCOSE METER Collected: 02/10/2018 Status: F Source: [facility] 5:35 AM HEALTH SYSTEM REPOSITORY TYPE CODE TESTS RESULT OUT OF REFERENCE UNITS RANGE LAB GLUBL(LOINC 70-99 mg/dL ) High Glucose Meter 106 Result Comment: RN NOTIFIED Performed By: #### GLMET #### [place] [address] GLUCOSE METER Collected: 02/10/2018 Status: F Source: [facility] 3:23 AM HEALTH SYSTEM REPOSITORY TYPE CODE TESTS RESULT OUT OF REFERENCE UNITS RANGE LAB GLUBL(LOINC 70-99 mg/dL ) High Glucose Meter 107 Result Comment: RN NOTIFIED Performed By: #### GLMET #### [place] [address] GLUCOSE METER Collected: 02/10/2018 Status: F Source: [facility] 1:11 AM HEALTH SYSTEM REPOSITORY TYPE CODE TESTS RESULT OUT OF REFERENCE UNITS RANGE LAB GLUBL(LOINC 70-99 mg/dL ) High Glucose Meter 121 Result Comment: RN NOTIFIED Performed By: #### GLMET #### [facility] [address] [place] [address] GLUCOSE METER Collected: 02/09/2018 Status: F Source: [facility] 11:00 PM HEALTH SYSTEM REPOSITORY TYPE CODE TESTS RESULT OUT OF REFERENCE UNITS RANGE LAB GLUBL(LOINC 70-99 mg/dL ) High Glucose Meter 102 Result Comment: RN NOTIFIED Performed By: #### GLMET #### [facility] [address] [place] [address] GLUCOSE METER Collected: 02/09/2018 Status: F Source: [facility] 9:10 PM HEALTH SYSTEM REPOSITORY TYPE CODE TESTS RESULT OUT OF REFERENCE UNITS RANGE LAB GLUBL(LOINC 70-99 mg/dL ) High Glucose Meter 119 Performed By: #### GLMET #### [facility] [address] [place] [address] O2% MEASURED VENOUS Collected: 02/09/2018 Status: F Source: [facility] 8:33 PM HEALTH SYSTEM REPOSITORY TYPE CODE TESTS RESULT OUT OF REFERENCE UNITS RANGE LAB O2%MV(LOINC 70.0-80.0 % ) O2% Measured 70.9 Venous Performed By: #### O2%MV #### [facility] [address] [place] [address] BLOOD GAS ARTERIAL Collected: 02/09/2018 Status: F Source: [facility] 8:15 HEALTH SYSTEM REPOSITORY TYPE CODE TESTS RESULT [...] Excess -5.5 Performed By: #### ABG #### [facility] [address] [place] [address] IONIZED CALCIUM Collected: 02/09/2018 Status: F Source: [facility] 8:15 PM HEALTH SYSTEM REPOSITORY TYPE CODE TESTS RESULT OUT OF REFERENCE UNITS RANGE LAB CAION(LOINC 4.43-4.93 mg/dL ) Ionized 4.64 Calcium LAB PHCAI(LOINC 7.320-7.420 ) Low pH 7.276 LAB CAPH(LOINC) 4.36-4.73 mg/dL Low Ionized 4.35 Ca,PH7.4 Performed By: #### IONCA #### [place] [address] BASIC PANEL Collected: 02/09/2018 Status: F Source: [facility] 8:15 PM HEALTH SYSTEM REPOSITORY TYPE CODE [...] Gap 11 Performed By: #### P8 #### [place] [address] MAGNESIUM BLOOD Collected: 02/09/2018 Status: F Source: [facility] 8:15 PM HEALTH SYSTEM REPOSITORY TYPE CODE TESTS RESULT OUT OF REFERENCE UNITS RANGE LAB MAG(LOINC) 1.6-2.6 mg/dL Magnesium Blood 1.9 Performed By: #### MAG #### [place] [address] MDRD GFR Collected: 02/09/2018 Status: F Source: [facility] 8:15 PM HEALTH SYSTEM REPOSITORY TYPE CODE TESTS RESULT OUT OF RANGE REFERENCE UNITS LAB GFRFN(LOINC >60mL/min/1.73m ) 2 eGFR >60 Result Comment: If the patient is , multiply the result by 1.210. Performed By: #### GFR #### [place] [address] OPERATIVE NO Observed: 02/09/2018 Status: COMPLETED Source: [place] 7:54 PM CLINIC OTHER CAMPUS REPOSITORY HNO ID: [id number] Author: Efren Tesfaye MD Service: Anesthesiology Author [...] ANES POST Observed: 02/09/2018 Status: COMPLETED Source: [place] 7:54 PM [facility] REPOSITORY O ID: [id number] Author: Efren Tesfaye MD Service: Anesthesiology Author [...] 1725 02/09/18 1752 02/09/18 1800 02/09/18 184 Resp: 15 15 14 14 02/09/18 1700 [...] GLUCOSE METER Collected: 02/09/2018 Status: F Source: [facility] 7:05 PM HEALTH SYSTEM REPOSITORY TYPE CODE TESTS RESULT OUT OF REFERENCE UNITS RANGE LAB GLUBL(LOINC 70-99 mg/dL ) High Glucose Meter 158 Result Comment: RN NOTIFIED Performed By: #### GLMET #### [place] [address] GLUCOSE METER Collected: 02/09/2018 Status: F Source: [facility] 5:53 PM HEALTH SYSTEM REPOSITORY TYPE CODE TESTS RESULT OUT OF REFERENCE UNITS RANGE LAB GLUBL(LOINC 70-99 mg/dL ) High Glucose Meter 183 Result Comment: RN NOTIFIED Performed By: #### GLMET #### [place] [address] BLOOD GAS ARTERIAL Collected: 02/09/2018 Status: F Source: [facility] 5:38 PM HEALTH SYSTEM REPOSITORY TYPE CODE [...] Excess -6.2 Performed By: #### ABG #### [place] [address] PROGRESS Observed: 02/09/2018 Status: COMPLETED Source: [place] 5:37 PM CLINIC OTHER [place] REPOSITORY HNO ID: [id number] Author: Juan Cabral Service: Cardiovascular Medicine Author Type: Physician Type: Progress Notes Filed: 02/09/2018 5:37 PM Note Text: Result Noted. Patient is currently hospitalized and managed by the in-patient team. Juan Cabral MD GLUCOSE METER Collected: 02/09/2018 Status: F Source: [facility] 5:10 PM HEALTH SYSTEM REPOSITORY TYPE CODE TESTS RESULT OUT OF REFERENCE UNITS RANGE LAB GLUBL(LOINC 70-99 mg/dL ) High Glucose Meter 181 Performed By: #### GLMET #### [place] [address] PROGRESS Observed: 02/09/2018 Status: COMPLETED Source: [place] 4:35 PM CLINIC OTHER CAMPUS REPOSITORY HNO ID: [id number] Author: Clementine Owen Service: Cardiovascular Surgery Author [...] 09, 2018 TIME: 4:35 PM PAGER/CONTACT #: [phone] [phone] GLUCOSE METER Collected: 02/09/2018 Status: F Source: [facility] 4:27 PM HEALTH SYSTEM REPOSITORY TYPE CODE TESTS RESULT OUT OF REFERENCE UNITS RANGE LAB GLUBL(LOINC 70-99 mg/dL ) High Glucose Meter 169 Result Comment: RN NOTIFIED Performed By: #### GLMET #### [facility] [address] [place], [place] [address] GLUCOSE METER Collected: 02/09/2018 Status: F Source: 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 No PFTs avaiable. No family available for [...] 1355) Exhaled Tidal Volume (mL): 610 (02/09/18 1355) Minute Volume (L): 7.3 (02/09/18 1355) Peak Inspiratory Pressure (cm H2O): 21 (02/09/18 1355) PEEP/CPAP (cm H2O): 5 (02/09/18 1355) HEMODYNAMIC DATA: Reviewed NUTRITION: Enteral Feeds: No [...] Post-op CXR with bibasilar atelectasis--no focal infiltrate. [facility] CRITICAL CARE PLAN: Bronchodilators , Ventilatory support [...] NURSING PROG Observed: 02/09/2018 Status: COMPLETED Source: [place] 2:31 PM CLINIC OTHER CAMPUS REPOSITORY [facility] ID: [id number] Author: Guerrero (Rn) ANGELINA Reyna Service: (none) Author Type: Registered Nurse Type: Nursing Progress Note Filed: 02/09/2018 2:32 PM Note Text: Nursing Progress Note Patient Name: Jeffrey Cullen Patient Location: [place] [id number]* Event(s) / Intervention Note: Patient arrived back in CVICU from OR for CABG. This note was completed by: Guerrero Reyna RN CHEST 1 VIEW Observed: 02/09/2018 Status: F Source: [facility] 2:30 PM HEALTH SYSTEM REPOSITORY Performed at [facility] APPROVED BY: Richie Velasco MD EXAM TITLE: CHEST 1 VIEW DATE: 02/09/2018 14:20 COMPARISON: 02/07/2018 CLINICAL INDICATION/HISTORY: Status post CABG TECHNIQUE: AP semierect portable chest FINDINGS: ET tube tip resides approximately 5 cm above the nelda. There is an enteric tube extending into the stomach. [place] catheter appears looped upon itself within the pulmonary outflow tract. There i s a left-sided thoracostomy tube. There is no pneumothorax. There is a suboptimal inspiration. Mild bibasilar atelectasis. Intact sternotomy wires. Cardiac size is stable. IMPRESSION: Status post CABG. Lines and tubes as noted. HEMOGRAM Collected: 02/09/2018 Status: F Source: [facility] 2:05 PM HEALTH SYSTEM REPOSITORY TYPE CODE [...] MPV 9.6 Performed By: #### CBC1 #### [facility] [address] [place] [id number] COMPREHENSIVE PANEL Collected: 02/09/2018 Status: F Source: [facility] 2:[facility] REPOSITORY TYPE CODE TESTS [...] Gap 8 Performed By: #### P14 #### [facility] [address] [place] [id number] PROTIME Collected: 02/09/2018 Status: F Source: [facility] TYPE CODE TESTS RESULT OUT OF REFERENCE UNITS RANGE LAB PTI(LOINC) 9.3-11.9 sec Prothrombin High Time 12.6 LAB INR(LOINC) INR 1.24 Result Comment: Standard Therapy 2.0-3.0 High Dose 2.5-3.5 Performed By: #### PT #### [facility] [address] [place] [address] ACTIVATED PTT Collected: 02/09/2018 Status: F Source: [facility] 2:05 PM HEALTH SYSTEM REPOSITORY TYPE CODE TESTS RESULT OUT OF REFERENCE UNITS RANGE LAB APTT(LOINC 22.0-34.0 sec ) Activated PTT 23.0 Performed By: #### APTT #### [facility] [address] [place] [address] MAGNESIUM BLOOD Collected: 02/09/2018 Status: F Source: [facility] 2:05 PM HEALTH SYSTEM REPOSITORY TYPE CODE TESTS RESULT OUT OF REFERENCE UNITS RANGE LAB MAG(LOINC) 1.6-2.6 mg/dL Magnesium Blood 1.8 Performed By: #### MAG #### [facility] [address] [place] [address] MDRD GFR Collected: 02/09/2018 Status: F Source: [facility] 2:05 PM HEALTH SYSTEM REPOSITORY TYPE CODE TESTS RESULT OUT OF RANGE REFERENCE UNITS LAB GFRFN(LOINC >60mL/min/1.73m ) 2 eGFR >60 Result Comment: If the patient is , multiply the result by 1.210. Performed By: #### GFR #### [place] [address] BLOOD GAS ARTERIAL Collected: 02/09/2018 Status: F Source: [facility] 2:00 PM HEALTH SYSTEM REPOSITORY TYPE CODE [...] FIO2 70 Performed By: #### ABG #### [facility] [address] [place] [address] GLUCOSE METER Collected: 02/09/2018 Status: F Source: [facility] 1:59 PM HEALTH SYSTEM REPOSITORY TYPE CODE TESTS RESULT OUT OF REFERENCE UNITS RANGE LAB GLUBL(LOINC 70-99 mg/dL ) High Glucose Meter 160 Result Comment: RN NOTIFIED Performed By: #### GLMET #### [place] [id number] PROGRESS Observed: 02/09/2018 Status: COMPLETED Source: [place] 1:51 PM CLINIC OTHER CAMPUS REPOSITORY HNO ID: [id number] Author: Juan Cabral Service: Cardiovascular Medicine Author Type: Physician Type: Progress Notes Filed: 02/09/2018 1:51 PM Note Text: Result Noted. Patient is currently hospitalized and managed by the in-patient team. Juan Cabral MD PROGRESS Observed: 02/09/2018 Status: COMPLETED Source: [place] 1:32 PM [facility] OTHER [place] REPOSITORY HNO ID: [id number] Author: Beata Marin Service: Thoracic Surgery Author Type: Physician Type: Progress Notes Filed: 02/09/2018 1:36 PM Note Text: CARDIOTHORACIC BRIEF OP NOTE LOG ID: [id number] SURGERY/PROCEDURE DATE: 02/09/2018 INCISION/PROCEDURE START TIME: 9:13 AM INCISION CLOSE/PROCEDURE END TIME: 1:31 PM SURGEON(S) AND MANAGER MANAGED CARE(S): Surgeon(s) and Role: * Beata Marin - Primary Reinforcing Metal Worker: Kristin () SA Pam; Elkin () SA Ana Luisa [...] 2018 TIME: 1:32 PM PAGER/CONTACT #: [phone] CG8 ARTERIAL PANEL Collected: 02/09/2018 Status: F [...] 9.9 (i-STAT) Performed By: #### CG8IA #### [place] [address] ACT ARTERIAL PANEL Collected: 02/09/2018 Status: F Source: [facility] (I-STAT) 12:52 PM HEALTH SYSTEM REPOSITORY TYPE CODE TESTS RESULT OUT OF REFERENCE UNITS RANGE LAB ACTAI(LOINC 74-137 sec ) [facility] ( 109 i-STAT) Performed By: #### ACTIA #### [place] [id number] NURSING PROG Observed: 02/09/2018 Status: COMPLETED Source: [facility] 12:33 PM CLINIC OTHER CAMPUS REPOSITORY HNO ID: [id number] Author: Kathryn (Rn) ANGELINA Corley Service: Cardiac Surgery Author Type: Registered Nurse Type: Nursing Progress Note Filed: 02/09/2018 12:34 PM Note Text: SISTER UPDATED . CG8 ARTERIAL PANEL Collected: 02/09/2018 Status: F Source: [facility] (I-STAT) 12:17 PM HEALTH SYSTEM REPOSITORY TYPE [...] 10.2 (i-STAT) Performed By: #### CG8IA #### [place] [address] ACT ARTERIAL PANEL Collected: 02/09/2018 Status: F Source: [facility] (I-STAT) 12:16 PM HEALTH SYSTEM REPOSITORY TYPE CODE TESTS RESULT OUT OF REFERENCE UNITS RANGE LAB ACTAI(LOINC 74-137 sec ) High [facility] ( 543 i-STAT) Performed By: #### ACTIA #### [facility] [address] [place], [place] [address] ACT ARTERIAL PANEL Collected: 02/09/2018 Status: F Source: [facility] (I-STAT) 11:50 AM HEALTH SYSTEM REPOSITORY TYPE CODE TESTS RESULT OUT OF REFERENCE UNITS RANGE LAB ACTAI(LOINC 74-137 sec ) High [facility] ( 538 i-STAT) Performed By: #### ACTIA #### [facility] [address] [place], [place] [address] CG8 ARTERIAL PANEL Collected: 02/09/2018 Status: F Source: [facility] (I-STAT) 11:44 AM HEALTH SYSTEM REPOSITORY TYPE [...] 10.9 (i-STAT) Performed By: #### CG8IA #### [facility] [address] [place] [address] ACT ARTERIAL PANEL Collected: 02/09/2018 Status: F Source: [facility] (I-STAT) 11:15 AM HEALTH SYSTEM REPOSITORY TYPE CODE TESTS RESULT OUT OF REFERENCE UNITS RANGE LAB ACTAI(LOINC 74-137 sec ) High [facility] ( 549 i-STAT) Performed By: #### ACTIA #### [facility] [address] [place], [place] [address] CG8 ARTERIAL PANEL Collected: 02/09/2018 Status: F Source: [facility] (I-STAT) 11:11 AM HEALTH SYSTEM REPOSITORY TYPE [...] 11.2 (i-STAT) Performed By: #### CG8IA #### [place] [address] CG8 VENOUS PANEL Collected: 02/09/2018 Status: F Source: [facility] (I-STAT) 11:00 AM HEALTH SYSTEM REPOSITORY TYPE [...] 11.2 (i-STAT) Performed By: #### CG8IV #### [place] [id number] ACT ARTERIAL PANEL Collected: 02/09/2018 Status: F Source: [facility] (I-STAT) 10:46 AM HEALTH SYSTEM REPOSITORY TYPE CODE TESTS RESULT OUT OF REFERENCE UNITS RANGE LAB ACTAI(LOINC 74-137 sec ) High Kaolin ACT ( 582 i-STAT) Performed By: #### ACTIA #### [facility] [address] [place] [address] CG8 ARTERIAL PANEL Collected: 02/09/2018 Status: F Source: [facility] (I-STAT) 10:41 AM HEALTH SYSTEM REPOSITORY TYPE [...] 11.9 (i-STAT) Performed By: #### CG8IA #### [facility] [address] [place] [id number] NURSING PROG Observed: 02/09/2018 Status: COMPLETED Source: [place] 10:36 AM CLINIC OTHER CAMPUS REPOSITORY HNO ID: [id number] Author: Kathryn (Rn) ANGELINA Corley Service: Cardiac Surgery Author Type: Registered Nurse Type: Nursing Progress Note Filed: 02/09/2018 10:37 AM Note Text: SISTER WAS UPDATED WHEN SURGERY STARTED AND JUST NOW. ACT ARTERIAL PANEL Collected: 02/09/2018 Status: F Source: [facility] (I-STAT) 10:16 AM HEALTH SYSTEM REPOSITORY TYPE CODE TESTS RESULT OUT OF REFERENCE UNITS RANGE LAB ACTAI(LOINC 74-137 sec ) High Kaolin ACT ( 637 i-STAT) Performed By: #### ACTIA #### [place] [address] ANES PREOP Observed: 02/09/2018 Status: COMPLETED Source: [place] 9:32 AM CLINIC OTHER CAMPUS REPOSITORY O ID: [id number] Author: Carlos Monroe Service: Anesthesiology Author Type: [...] mg chewable tab(s) 81 mg ORAL DAILY Walt (Res) Nasser 81 mg at 02/09/18 0514 atorvastatin 40 mg tab(s) (LIPITOR) 40 mg ORAL AT BEDTIME Walt (Res) Nasser 40 mg at 02/08/18 2050 magnesium sulfate in water 2 g in sterile water 50 ml 2 g INTRAVENOUS PRN Walt (Res) Nasser calcium gluconate 4 g in NaCl 0.9% 250 mL 4 g INTRAVENOUS PRN Walt (Res) Nasser nitroglycerin 100 mg in D5W 250 mL 5 mcg/min INTRAVENOUS CONTINUOUS Walt (Res) Nasser Last Rate: 0.75 mL/hr at 02/08/18 0213 5 mcg/min at 02/08/18 0213 metoprolol tartrate (short acting) 25 mg tab(s) (LOPRESSOR) 25 mg ORAL q 12 H Walt (Res) Nasser 25 mg at 02/09/18 [...] 0157 mupirocin ointment (BACTROBAN) TOPICAL TID Vega (Manager Council) Mouck anticoagulant CPDA-1 39 mL, potassium chloride [...] 0.9% 100 mL (PRECEDEX) 0.2- 0.7 mcg/kg/hr ([place]) INTRAVENOUS ONCE Beata Marin nitroglycerin 100 mg [...] February 09, 2018 TIME: 9:32 AM CSN: [id number] PROGRESS Observed: 02/09/2018 Status: COMPLETED Source: [place] 9:28 AM [facility] OTHER CAMPUS REPOSITORY O ID: [id number] Author: Juan Cabral Service: Cardiovascular Medicine Author Type: Physician Type: Progress Notes Filed: 02/09/2018 9:28 AM Note Text: Result Noted. Patient is currently hospitalized and managed by the in-patient team. Juan Cabral MD ACT ARTERIAL PANEL Collected: 02/09/2018 Status: F Source: [facility] (I-STAT) 9:05 AM HEALTH SYSTEM REPOSITORY TYPE CODE TESTS RESULT OUT OF REFERENCE UNITS RANGE LAB ACTAI(LOINC 74-137 sec ) Kaolin ACT ( 120 i-STAT) Performed By: #### ACTIA #### [facility] [address] [place] [address] CG8 ARTERIAL PANEL Collected: 02/09/2018 Status: F Source: [facility] (I-STAT) 9:02 AM HEALTH SYSTEM REPOSITORY TYPE [...] 12.9 (i-STAT) Performed By: #### CG8IA #### [facility] [address] [place] [address] NURSING PROG Observed: 02/09/2018 Status: COMPLETED Source: [place] 8:00 AM [facility] REPOSITORY HNO ID: [id number] Author: Guerrero (Rn) ANGELINA Reyna Service: (none) Author Type: Registered Nurse Type: Nursing Progress Note Filed: 02/09/2018 8:54 AM Note Text: Nursing Progress Note Patient Name: Jeffrey Cullne Patient Location: [place]-OR/[place]-OR Transfer Note: Patient transferred to OR with Anesthesia and Surgical Team. Actions taken: presurgical huddle completed. This note was completed by: Guerrero Reyna RN CONSULT PROG Observed: 02/09/2018 Status: COMPLETED Source: [place] 6:40 AM [facility] REPOSITORY HNO ID: [id number] Author: Juan Cabral Service: Cardiovascular Medicine Author [...] 0.9% 100 mL (PRECEDEX) 0.2- 0.7 mcg/kg/hr ([place]) INTRAVENOUS ONCE nitroglycerin 100 mg in D5W [...] 09, 2018 TIME: 6:41 AM PAGER/CONTACT #: [phone] HEMOGRAM Collected: 02/09/2018 Status: F Source: [facility] 4:[facility] SYSTEM REPOSITORY TYPE CODE TESTS RESULT [...] MPV 10.0 Performed By: #### CBC1 #### [place] [address] BASIC PANEL Collected: 02/09/2018 Status: F Source: [address] HEALTH SYSTEM REPOSITORY TYPE CODE TESTS [...] Gap 9 Performed By: #### P8 #### [place] [address] MDRD GFR Collected: 02/09/2018 Status: F Source: [facility] 4:07 AM HEALTH SYSTEM REPOSITORY TYPE CODE TESTS RESULT OUT OF RANGE REFERENCE UNITS LAB GFRFN(LOINC >60mL/min/1.73m ) 2 eGFR >60 Result Comment: If the patient is , multiply the result by 1.210. Performed By: #### GFR #### [facility] [address] [place] [address] ACTIVATED PTT Collected: 02/09/2018 Status: F Source: [facility] 1:23 AM HEALTH SYSTEM REPOSITORY TYPE CODE TESTS RESULT OUT OF REFERENCE UNITS RANGE LAB APTT(LOINC 22.0-34.0 sec ) High Activated PTT 43.7 Performed By: #### APTT #### [facility] [address] [place], [place] [address] OPERATIVE NO Observed: 02/09/2018 Status: COMPLETED Source: [place] 12:00 AM CLINIC OTHER CAMPUS REPOSITORY HNO ID: [id number] Author: Beata Marin Service: Thoracic Surgery Author Type: Physician Type: Operative Report Filed: 02/10/2018 6:24 PM Note Text: [facility] - Operative Report SURGEON: Beata Marin MD PATIENT NAME: JEFFREY CULLEN CSN: [id number] DATE OF SURGERY: 02/09/2018 DATE OF : 1950 SEX/AGE: M/67 PATIENT TYPE: I HOSP SVC: ICU LOCATION: [facility] DATE OF SURGERY: 02/09/2018 SURGEON: Beata Marin MD PREOPERATIVE DIAGNOSIS: Severe 3-vessel coronary disease with non-ST segment elevation myocardial infarction. POSTOPERATIVE DIAGNOSIS: Severe 3-vessel coronary disease with non-ST segment elevation myocardial infarction with extensive acute inferior wall infarction/ischemia. MANAGER MANAGED CARE: Kristin Orozco SA, and Nick Orosco SA. [...] count. Beata Marin MD Cardiothoracic Surgery PS:carlyn /[id number] ACTIVATED PTT Collected: 02/08/2018 Status: F Source: [facility] 5:30 PM HEALTH SYSTEM REPOSITORY TYPE CODE TESTS RESULT OUT OF REFERENCE UNITS RANGE LAB APTT(LOINC 22.0-34.0 sec ) Activated PTT 25.8 Performed By: #### APTT #### [place] [address] CONSULT PROG Observed: 02/08/2018 Status: COMPLETED Source: [place] 3:21 PM CLINIC OTHER CAMPUS REPOSITORY HNO ID: [id number] Author: Vega Mosquera Service: Cardiac Surgery Author [...] 02/09/2018 STS Risk Score: 0.707% CARE TEAM: Taker Off Braker Machine: Marianna PCP: Richie De La Torre Other [...] PA-C CONSULT Observed: 02/08/2018 Status: COMPLETED Source: [place] 2:54 PM CLINIC OTHER CAMPUS REPOSITORY O ID: [id number] Author: Misti Stein (Pa) Service: Cardiac Surgery Author Type: Physician Trade Economist Type: Consults Filed: 02/08/2018 4:41 PM Note Text: CARDIOTHORACIC SURGERY CONSULT / HANDP SERVICE DATE: 02/08/2018 SERVICE TIME: 2:54 PM Subjective PRIMARY SERVICE: Cardiothoracic Surgery CHIEF COMPLAINT: Chest pain HPI: This is a 67 year old male with h/o smoking (2ppd x 30 yr) who presented to [facility] 02/07 with sharp chest pain rated [...] started Heparin and arranged for transfer to [facility] on 02/07. Cardiac Cath was performed in [...] February 08, 2018 TIME: 2:54 PM PAGER/CONTACT #:[phone] ETX [id number] CDVI B MODE Observed: 02/08/2018 Status: F Source: [facility] 12:45 PM HEALTH SYSTEM REPOSITORY Performed at [facility] APPROVED BY: NORMA BOYLE MD EXAM TITLE: [...] TROPONIN I Collected: 02/08/2018 Status: F Source: [facility] 12:10 PM HEALTH SYSTEM REPOSITORY TYPE CODE TESTS RESULT OUT OF REFERENCE UNITS RANGE LAB TROP(LOINC) 0.015-0.045 ng/ml High alert Troponin I 39.700 Performed By: #### TROP #### [facility] [address] [place] [address] TYPE AND SCREEN Collected: 02/08/2018 Status: F Source: [facility] 12:10 PM HEALTH SYSTEM REPOSITORY TYPE CODE TESTS RESULT OUT OF REFERENCE UNITS RANGE LAB ABO(LOINC) O ABO Group LAB CASE LOADER OPERATOR(LOINC ) RH Type Positive LAB ABSCR(LOIN C) Antibody NEGATIVE Screen LAB BBCMT(LOIN C) Comment See Below Result Comment: Screen &/or Xmatch expires in 3 days at 12 midnight. Redraw patient at that time. Performed By: #### T&S #### [place] [address] RBC PRODUCTS Collected: 02/08/2018 Status: F Source: [facility] 12:10 PM HEALTH SYSTEM REPOSITORY TYPE CODE TESTS RESULT OUT OF REFERENCE UNITS RANGE LAB UNIT1(LOINC ) Xmatch Unit 1 see below Result Comment: Compatible LAB UNIT2(LOINC) Xmatch Unit 2 see below Result Comment: Compatible Performed By: #### RBCPS #### [place] [address] PROGRESS Observed: 02/08/2018 Status: COMPLETED Source: [place] 10:24 AM [facility] OTHER [place] REPOSITORY HNO ID: [id number] Author: Juan Cabral Service: Cardiovascular Medicine Author Type: Physician Type: Progress Notes Filed: 02/08/2018 10:24 AM Note Text: Result Noted. Patient is currently hospitalized and managed by the in-patient team. Juan Cabral MD TROPONIN I Collected: 02/08/2018 Status: F Source: [facility] 9:10 AM HEALTH SYSTEM REPOSITORY TYPE CODE TESTS RESULT OUT OF REFERENCE UNITS RANGE LAB TROP(LOINC) 0.015-0.045 ng/ml High alert Troponin I 45.200 Performed By: #### TROP #### [place] [address] ACT Collected: 02/08/2018 Status: F Source: [facility] 8:19 AM HEALTH SYSTEM REPOSITORY TYPE CODE TESTS RESULT OUT OF RANGE REFERENCE UNITS LAB ACT(LOINC) 89-169 sec ACT 90 Performed By: #### ACT #### [place] [address] PROGRESS Observed: 02/08/2018 Status: COMPLETED Source: [place] 8:05 AM CLINIC OTHER CAMPUS REPOSITORY HNO ID: [id number] Author: Juan Cabral Service: Cardiovascular Medicine Author Type: Physician Type: Progress Notes Filed: 02/08/2018 8:05 AM Note Text: Result Noted. Patient is currently hospitalized and managed by the in-patient team. Juan Cabral MD ACTIVATED PTT Collected: 02/08/2018 Status: F Source: [facility] 7:00 AM HEALTH SYSTEM REPOSITORY TYPE CODE TESTS RESULT OUT OF REFERENCE UNITS RANGE LAB APTT(LOINC 22.0-34.0 sec ) Activated PTT 28.5 Performed By: #### APTT #### [place] [address] HEMOGRAM Collected: 02/08/2018 Status: F Source: [facility] 5:00 AM HEALTH SYSTEM REPOSITORY TYPE CODE [...] MPV 9.6 Performed By: #### CBC1 #### [place] [address] TROPONIN I Collected: 02/08/2018 Status: F Source: [facility] 5:00 HEALTH SYSTEM REPOSITORY TYPE CODE TESTS RESULT OUT OF REFERENCE UNITS RANGE LAB TROP(LOINC) 0.015-0.045 ng/ml High alert Troponin I 31.200 Performed By: #### TROP #### [address] [place], [place] [address] BASIC PANEL Collected: 02/08/2018 Status: F Source: [facility] 5:00 AM HEALTH SYSTEM REPOSITORY TYPE CODE [...] Gap 10 Performed By: #### P8 #### [place] [address] MDRD GFR Collected: 02/08/2018 Status: F Source: [facility] 5:00 HEALTH SYSTEM REPOSITORY TYPE CODE TESTS RESULT OUT OF RANGE REFERENCE UNITS LAB GFRFN(LOINC >60mL/min/1.73m ) 2 eGFR >60 Result Comment: If the patient is , multiply the result by 1.210. Performed By: #### GFR #### [place] [address] PHOSPHORUS BLOOD Collected: 02/08/2018 Status: F Source: [facility] 5:00 AM HEALTH SYSTEM REPOSITORY TYPE CODE TESTS RESULT OUT OF REFERENCE UNITS RANGE LAB PHOS(LOINC 2.5-4.9 mg/dL ) Phosphorus Blood 2.9 Performed By: #### PHOS #### [place] [address] TROPONIN I Collected: 02/08/2018 Status: F Source: [facility] 2:00 AM HEALTH SYSTEM REPOSITORY TYPE CODE TESTS RESULT OUT OF REFERENCE UNITS RANGE LAB TROP(LOINC) 0.015-0.045 ng/ml High alert Troponin I 14.000 Performed By: #### TROP #### [place] [address] HEMOGRAM Collected: 02/08/2018 Status: F Source: [facility] 1:[facility] SYSTEM REPOSITORY TYPE CODE TESTS RESULT [...] MPV 9.5 Performed By: #### CBC1 #### [place] [address] ACTIVATED PTT Collected: 02/08/2018 Status: F Source: [facility] 1:[facility] SYSTEM REPOSITORY TYPE CODE TESTS RESULT OUT OF REFERENCE UNITS RANGE LAB APTT(LOINC 22.0-34.0 sec ) Activated PTT 28.3 Performed By: #### APTT #### [place] [address] PROTIME Collected: 02/08/2018 Status: F Source: [facility] 1:[facility] SYSTEM REPOSITORY TYPE CODE TESTS RESULT OUT OF REFERENCE UNITS RANGE LAB PTI(LOINC) 9.3-11.9 sec Prothrombin Time 11.1 LAB INR(LOINC) INR 1.05 Result Comment: Standard Therapy 2.0-3.0 High Dose 2.5-3.5 Performed By: #### PT #### [place] [address] Observed: 02/08/2018 Status: F Source: [facility] MRSA SCREEN 1:[facility] REPOSITORY Test performed at [facility] No MRSA detected. Performed By: #### MRSA #### [facility] [address] [place] [address] PROGRESS Observed: 02/08/2018 Status: COMPLETED Source: [place] 12:29 AM [facility] REPOSITORY HNO ID: [id number] Author: Choco Rivera Service: Critical Care Author Type: Resident Type: [...] MD 02/08/18 12:32 AM Internal Medicine Pager: [phone] CONSULT Observed: 02/08/2018 Status: COMPLETED Source: [place] 12:00 AM [facility] REPOSITORY HNO ID: [id number] Author: Beata Marin Service: Thoracic Surgery Author Type: Physician Type: Consults Filed: 02/10/2018 5:51 PM Note Text: [facility] - Consultation PATIENT NAME: JEFFREY CULLEN CSN: [id number] DATE OF : 1950 SEX/AGE: M/67 PATIENT TYPE: I HOSP SVC: ICU LOCATION: [id number] 02/08/2018 REASON FOR CONSULTATION: Consideration for coronary artery bypass grafting surgery during the current admission. REQUESTING PHYSICIAN: Dr. Brice. MAIL LIST PROCESSOR: Dr. Marin. HISTORY OF PRESENT ILLNESS: This [...] pending. Beata Marin MD Cardiothoracic Surgery PS:carlyn /[id number] NURSING PROG Observed: 02/07/2018 Status: COMPLETED Source: [place] 11:12 PM CLINIC OTHER CAMPUS REPOSITORY HNO ID: [id number] Author: Gio (Rn) ANGELINA Singer Service: (none) Author Type: Registered Nurse Type: Nursing Progress Note Filed: 02/08/2018 1:15 AM Note Text: Nursing Progress Note Patient Name: Jeffrey Cullen Patient Location: [id number]/[facility]410* Daily Note: 02/07/2018 2030: Report called from [facility] by 'Aida.' 2114: Patient arrived to 4100. [...] with the Heparin drip they arrived with. 2214: Patient stated chest pain relief. 2349: Lab, 'Nicole,' called with a critical value [...] RN CONSULT Observed: 02/07/2018 Status: COMPLETED Source: [place] 10:53 PM CLINIC OTHER CAMPUS REPOSITORY O ID: [id number] Author: Juan Cabral Service: Critical Care Author [...] 30 minutes Signature: Juan Cabral MD Pager [phone]: 02/08/2018 Time: 6:42 AM MPatrice Rivera MD Internal Medicine, PGYIII Pager: [phone] February 07, 2018 10:54 PM PROTIME Collected: 02/07/2018 Status: F Source: [facility] 10:43 PM HEALTH SYSTEM REPOSITORY TYPE CODE TESTS RESULT OUT OF REFERENCE UNITS RANGE LAB PTI(LOINC) 9.3-11.9 sec Prothrombin Time 11.5 LAB INR(LOINC) INR 1.10 Result Comment: Standard Therapy 2.0-3.0 High Dose 2.5-3.5 Performed By: #### PT #### [facility] [address] [place] [address] TROPONIN I Collected: 02/07/2018 Status: F Source: [facility] 10:43 PM HEALTH SYSTEM REPOSITORY TYPE CODE TESTS RESULT OUT OF REFERENCE UNITS RANGE LAB TROP(LOINC) 0.015-0.045 ng/ml High alert Troponin I 7.680 Performed By: #### TROP #### [place] [address] LIPID PROFILE Collected: 02/07/2018 Status: F Source: [facility] 10:43 PM HEALTH SYSTEM REPOSITORY TYPE CODE [...] Triglyceride >400 Performed By: #### LIPD2 #### [facility] [address] [place] [address] MAGNESIUM BLOOD Collected: 02/07/2018 Status: F Source: [facility] 10:43 PM HEALTH SYSTEM REPOSITORY TYPE CODE TESTS RESULT OUT OF REFERENCE UNITS RANGE LAB MAG(LOINC) 1.6-2.6 mg/dL Magnesium Blood 2.3 Performed By: #### MAG #### [facility] [address] [place] [address] HGB A1C Collected: 02/07/2018 Status: F Source: [facility] 10:43 PM HEALTH SYSTEM REPOSITORY TYPE CODE TESTS RESULT OUT OF RANGE REFERENCE UNITS LAB A1C5(LOINC) 4.2-6.3 % Hgb A1c 5.1 Result Comment: Method is National Glycohemoglobin Standardization Program (NGSP) compliant. LAB ESAVG(LOINC) mg/dl Est. Avg Glucose 100 Performed By: #### HA1C #### [facility] [address] [place] [address] HISTORY PHYSICAL Observed: 02/07/2018 Status: COMPLETED Source: [place] 9:57 PM CLINIC OTHER CAMPUS REPOSITORY O ID: [id number] Author: Saud Mario MD Service: Hospital Medicine [...] findings but also concerning for possible inferior NC especially with the history of hypotension after [...] pain free so he was admitted to [facility] for NSTEMI management Currently on the floor [...] HISTORY PHYSICAL Observed: 02/07/2018 Status: COMPLETED Source: [place] 8:35 PM [facility] REPOSITORY HNO ID: [id number] Author: Elaine Sweeney Service: Radiology Author Type: [...] ED NOTE Observed: 02/07/2018 Status: COMPLETED Source: [place] 6:59 PM [facility] REPOSITORY HNO ID: [id number] Author: Roman MoodyRnKristin Wilcox RN Service: Emergency Medicine Author Type: Registered Nurse Type: ED Notes Filed: 02/07/2018 7:00 PM Note Text: [facility] called back with new ETA of 30-45 mins. ED NOTE Observed: 02/07/2018 Status: COMPLETED Source: [place] 6:53 PM [facility] REPOSITORY HNO ID: [id number] Author: Shellie MoodyRn) ANGELINA Wills Service: (none) Author Type: Registered Nurse Type: ED Notes Filed: 02/07/2018 6:56 PM Note Text: [facility] notified Aware of pt weight, need for IV pump, monitor and oxygen ETA 60-90 minutes, will attempt to find closer squad ED NOTE Observed: 02/07/2018 Status: COMPLETED Source: [place] 6:52 PM [facility] REPOSITORY HNO ID: [id number] Author: Shellie MoodyRn) ANGELINA Wills Service: (none) Author Type: Registered Nurse Type: ED Notes Filed: 02/07/2018 6:52 PM Note Text: Bed assignment [id number] Report [id number] ED NOTE Observed: 02/07/2018 Status: COMPLETED Source: [place] 6:36 PM [facility] REPOSITORY HNO ID: [id number] Author: Shani Johnson) ANGELINA Prasad Service: Emergency Medicine Author Type: Registered Nurse Type: ED Notes Filed: 02/07/2018 6:39 PM Note Text: [facility] calling on squad phone and says [...] ED NOTE Observed: 02/07/2018 Status: COMPLETED Source: [place] 6:26 PM [facility] REPOSITORY HNO ID: [id number] Author: Shani MoodyRn) ANGELINA Prasad Service: Emergency Medicine Author Type: Registered Nurse Type: ED Notes Filed: 02/07/2018 6:27 PM Note Text: ED NOTE Observed: 02/07/2018 Status: COMPLETED Source: [place] 6:05 PM [facility] REPOSITORY HNO ID: [id number] Author: Shellie Barrios (Rn) ANGELINA Wills Service: (none) Author Type: Registered Nurse Type: ED Notes Filed: 02/07/2018 6:07 PM Note Text: Dr Fermin speaks with Dr Mario at [facility] Pt accepted, awaiting bed assignment ED NOTE Observed: 02/07/2018 Status: COMPLETED Source: [place] 5:58 PM [facility] REPOSITORY HNO ID: [id number] Author: Shellie MoodyRn) ANGELINA Wills Service: (none) Author Type: Registered Nurse Type: ED Notes Filed: 02/07/2018 5:59 PM Note Text: Per Vee at transfer line, awaiting hospitalist to respond to page ED NOTE Observed: 02/07/2018 Status: COMPLETED Source: [place] 5:20 PM [facility] [place] REPOSITORY HNO ID: [id number] Author: Shellie MoodyRn) ANGELINA Wills Service: (none) Author Type: Registered Nurse Type: ED Notes Filed: 02/07/2018 5:47 PM Note Text: Transfer line given update regarding patient's pain, to consult with cardiology and call back ED PROV NOTE Observed: 02/07/2018 Status: COMPLETED Source: [place] 4:58 PM [facility] [place] REPOSITORY HNO ID: [id number] Author: Carlos Fermin MD Service: Emergency Medicine [...] team, and accepting physician Dr. Mario, at [place] and pt is accepted for admission.. Heparin gtt is infusing, VSS, and pt reamins chest pain free. Pt is pending transfer arrangement, and repeat troponin. Pt aware of the plan for transfer. Encounter Diagnosis ICD-10-CM 1. NSTEMI (non-ST elevated myocardial infarction) (HCC) I21.4 Plan The Patient was TRANSFERRED to: [facility] Condition at time of disposition: stable SIGNATURE: [...] separately billed procedures. MD Carlos Ty MD 02/07/181811 Carlos Fermin MD 02/07/182051 ED NOTE Observed: 02/07/2018 Status: COMPLETED Source: [place] 4:39 PM [facility] REPOSITORY HNO ID: [id number] Author: Shellie Barrios (Rn) ANGELINA Wills Service: (none) Author Type: Registered Nurse Type: ED Notes Filed: 02/07/2018 4:43 PM Note Text: [facility] transfer line contacted, demographics faxed ED NOTE Observed: 02/07/2018 Status: COMPLETED Source: [place] 4:31 PM [facility] REPOSITORY HNO ID: [id number] Author: Aida (Rn) ANGELINA Castano Service: Emergency Medicine Author Type: Registered Nurse Type: ED Notes Filed: 02/07/2018 4:32 PM Note Text: Sister Trev, call with transfer info CHEST 2 VIEWS Observed: 02/07/2018 Status: F Source: [facility] 4:15 PM HEALTH SYSTEM REPOSITORY Performed at [facility] APPROVED BY: PAULETTE SPENCE MD EXAMINATION: CHEST [...] thereof. HEMOGRAM/DIFF Collected: 02/07/2018 Status: F Source: [facility] 3:25 PM HEALTH SYSTEM REPOSITORY TYPE [...] 3.36 LAB LMONN(LOINC) 0.20-1.00 thou/cmm High Abs. [place] 1.01 LAB LEOSN(LOINC) 0.00-0.41 thou/cmm Abs. Eosin 0.40 LAB LBASN(LOINC) 0.00-0.08 thou/cmm Abs. Baso 0.06 Performed By: #### LCBCD #### [place] [id number] PROTIME Collected: 02/07/2018 Status: F Source: [facility] 3:25 PM HEALTH SYSTEM REPOSITORY TYPE CODE TESTS RESULT OUT OF REFERENCE UNITS RANGE LAB LPTI(LOINC 9.7-13.0 sec ) Prothrombin Time 11.4 Result Comment: Note new reference range. LAB LINR(LOINC) INR 1.10 Result Comment: Standard Therapy 2.0-3.0 High Dose 2.5-3.5 Performed By: #### LPT #### [facility] [address] [place] [address] COMPREHENSIVE PANEL Collected: 02/07/2018 Status: F Source: [facility] 3:25 PM HEALTH SYSTEM REPOSITORY TYPE CODE TESTS RESULT OUT OF REFERENCE UNITS RANGE LAB ACCOUNTS RECEIVABLE REPRESENTATIVE(LOINC) 136-145 mEq/L Sodium Blood 136 LAB LK(LOINC) [...] 14 Ratio Performed By: #### LP14 #### [facility] [address] [place] [address] LIPASE BLOOD Collected: 02/07/2018 Status: F Source: [facility] 3:25 PM HEALTH SYSTEM REPOSITORY TYPE CODE TESTS RESULT OUT OF REFERENCE UNITS RANGE LAB LLIP(LOINC) 73-393 U/L Lipase Blood 158 Performed By: #### LLIP #### [facility] [address] [place] [address] MDRD EGFR Collected: 02/07/2018 Status: F Source: [facility] 3:25 PM HEALTH SYSTEM REPOSITORY TYPE CODE TESTS RESULT OUT OF RANGE REFERENCE UNITS LAB LGFRF(LOINC >60mL/min/1.73m ) 2 eGFR >60 Result Comment: If the patient is , multiply the result by 1.210. Performed By: #### LGFR #### [facility] [address] [place] [address] TROPONIN I Collected: 02/07/2018 Status: F [facility] [facility] 3[facility] PM [facility] REPOSITORY TYPE CODE TESTS RESULT OUT OF REFERENCE UNITS RANGE LAB LTRP(LOINC) <=0.07 ng/mL High Troponin I 0.93 Performed By: #### LTRP #### [facility] [address] [address] ED NOTE Observed: 02/07/2018 Status: COMPLETED Source: [place] 3:19 PM CLINIC MAIN CAMPUS REPOSITORY HNO ID: [id number] Author: Shellie Barrios (Rn) ANGELINA Wills Service: (none) Author Type: Registered Nurse Type: ED Notes Filed: 02/07/2018 3:20 PM Note Text: Pt reports sudden onset of midsternal CP 20 min TICKET TAKER States took pepto bismol then vomited Arrives via private car, WC to ED bed 3 Placed on cardiac cath lab radiology technologist, respiratory therapy at bedside for EKG HOSP Observed: 02/07/2018 Status: COMPLETED Source: [place] 12:00 AM CLINIC OTHER CAMPUS REPOSITORY Patient:Jeffrey Cullen MRN: <[id number]> Height:5' 10.984(1.803 m) Weight:241 lb 6.5 oz [...] recurrent) [K40.90] NSTEMI (non-ST elevated myocardial infarction) ([facility]) [I21.4] NSVT (nonsustained ventricular tachycardia) ([facility]) [I47.2] Nicotine use disorder, F17.2 [F17.200] Malnutrition of moderate degree ([facility]) [E44.0] Allergies: No Known Allergies Date Verified:02/22/18 [...] findings but also concerning for possible inferior NC especially with the history of hypotension after [...] pain free so he was admitted to [facility] for NSTEMI management Currently on the floor [...] 30 minutes Signature: Juan Cabral MD Pager [phone]: 02/08/2018 Time: 6:42 AM MPatrice Rivera MD Internal Medicine, PGYIII Pager: [phone] February 07, 2018 10:54 PM Previous Version Gio Singer, RN, RN 02/08/2018 1:15 AM Addendum Nursing Progress Note Patient Name: Jeffrey Cullen Patient Location: [id number]/[facility]* Daily Note: 02/07/2018 2030: Report called from [facility] by 'Aida.' 2114: Patient arrived to 4100. [...] with the Heparin drip they arrived with. 5: Patient stated chest pain relief. 2350: Lab, [...] here. This note was completed by: Gio Singer, RN Previous Version Beata Marin MD 02/10/2018 5:51 PM Signed [facility] - Consultation PATIENT NAME: JEFFREY CULLEN CSN: [id number] DATE OF : 1950 SEX/AGE: M/67 PATIENT TYPE: I HOSP SVC: ICU LOCATION: [id number] 02/08/2018 REASON FOR CONSULTATION: Consideration for coronary artery bypass grafting surgery during the current admission. REQUESTING PHYSICIAN: Dr. Brice. MAIL LIST PROCESSOR: Dr. Marin. HISTORY OF PRESENT ILLNESS: This [...] PFTs pending. Beata Marin MD Cardiothoracic Surgery PS:modfara /[id number] Previous Version Choco Rivera MD 02/08/2018 12:32 [...] MD 02/08/18 12:32 AM Internal Medicine Pager: [phone] Juan Cabral MD 02/08/2018 8:05 AM Signed [...] (2ppd x 30 yr) who presented to [facility] 02/07 with sharp chest pain rated [...] started Heparin and arranged for transfer to [facility] on 02/07. Cardiac Cath was performed in [...] 2018 TIME: 2:54 PM PAGER/CONTACT #:[phone] ETX [id number] Previous Version Vega Mosquera APRN.CAMP ASSISTANT 02/12/2018 11:02 AM Signed [facility] Surgery Pre-Op [...] 02/09/2018 STS Risk Score: 0.707% CARE TEAM: Taker Off Braker Machine: Marianna PCP: Richie De La Torre Other [...] ?The vertebral arteries are antegrade. Lower EXT ANGEILCA: N/A Palmar Arch: N/a Vein Mapping: n/a Dental Clearance: n/a CT Chest: N/A Medications Notes: . Blood thinners: Patient is on following blood thinners: none Beta Krystle: Last dose of beta krystle taken: CLEARANCES NEEDED Pulmonary: Yes GI: No Hematology: No Other: No Vega Mosquera CNP; Misti Stein PA-C Previous Version Beata Marin MD 02/10/2018 6:24 PM Signed [facility] - Operative Report SURGEON: Beata Marin MD PATIENT NAME: JEFFREY CULLEN CSN: [id number] DATE OF SURGERY: 02/09/2018 DATE OF : 1950 SEX/AGE: M/67 PATIENT TYPE: I HOSP SVC: ICU LOCATION: [id number] DATE OF SURGERY: 02/09/2018 SURGEON: Beata Marin MD PREOPERATIVE DIAGNOSIS: Severe 3-vessel coronary disease with non-ST segment elevation myocardial infarction. POSTOPERATIVE DIAGNOSIS: Severe 3-vessel coronary disease with non-ST segment elevation myocardial infarction with extensive acute inferior wall infarction/ischemia. MANAGER MANAGED CARE: Kristin Orozco SA, and Nick Orosco SA. [...] instrument count. Beata Marin MD Cardiothoracic Surgery PS:modl /[id number] Previous Version Juan Cabral MD 02/09/2018 6:49 [...] - - - 18 - - 02/08/18 210 - - - 72 17 95 % [...] 0.9% 100 mL (PRECEDEX) 0.2- 0.7 mcg/kg/hr ([place]) INTRAVENOUS ONCE nitroglycerin 100 mg in D5W [...] Note Patient Name: Jeffrey Cullen Patient Location: [place] Transfer Note: Patient transferred to OR with Anesthesia and Surgical Team. Actions taken: presurgical huddle completed. This note was completed by: ANGELINA Wilkins MD 02/09/2018 9:28 AM Signed Result [...] 0157 mupirocin ointment (BACTROBAN) TOPICAL TID Vega (Manager Council) [place] anticoagulant CPDA-1 39 mL, potassium chloride 36 [...] 0.9% 100 mL (PRECEDEX) 0.2- 0.7 mcg/kg/hr ([place]) INTRAVENOUS ONCE Beata Marin nitroglycerin 100 mg in D5W 250 mL 5-200 mcg/min INTRAVENOUS ONCE Beata Mairn nitroglycerin sublingual 0.4 mg tab(s) (NITROQUICK) 0.4 [...] February 09, 2018 TIME: 9:32 AM CSN: [id number] Kathryn Corley, RN, RN 02/09/2018 10:37 AM Signed SISTER WAS UPDATED WHEN SURGERY STARTED AND JUST NOW. Kathryn Corley RN, RN 02/09/2018 12:34 PM Signed SISTER UPDATED . Beata Marin MD 02/09/2018 1:36 PM Signed CARDIOTHORACIC BRIEF OP NOTE LOG ID: [id number] SURGERY/PROCEDURE DATE: 02/09/2018 INCISION/PROCEDURE START TIME: 9:13 AM INCISION CLOSE/PROCEDURE END TIME: 1:31 PM SURGEON(S) AND MANAGER MANAGED CARE(S): Surgeon(s) and Role: * Beata Marin - Primary Reinforcing Metal Worker: Kristin Lei) SA Pam; Elkin () SA [...] Note Patient Name: Jeffrey Cullen Patient Location: [place] [address]/[facility]* Event(s) / Intervention Note: Patient arrived back in CVICU from OR for CABG. This note was completed by: ANGELINA Wilkins MD 02/09/2018 3:28 PM Signed CRITICAL CARE [...] reports 2PPD smoker x 45 years ongoing TICKET TAKER. No PFTs avaiable. No family available for [...] 1355) Exhaled Tidal Volume (mL): 610 (02/09/18 1355) Minute Volume (L): 7.3 (02/09/18 1355) Peak Inspiratory Pressure (cm H2O): 21 (02/09/18 1355) PEEP/CPAP (cm H2O): 5 (02/09/18 1355) HEMODYNAMIC DATA: Reviewed NUTRITION: Enteral Feeds: No [...] services: 35 minutes excluding procedures. SIGNATURE: Elkin Zultea MD PATIENT NAME: Jeffrey Cullen DATE: February 09, 2018 TIME: 3:12 PM Clementine Owen APRN.KARINE 02/09/2018 4:49 PM Signed CARDIOTHORACIC SURGERY POSTOP [...] 09, 2018 TIME: 4:35 PM PAGER/CONTACT #: [phone] PVP [phone] Juan Cabral MD 02/09/2018 5:37 PM Signed [...] 1725 02/09/18 1752 02/09/18 1800 02/09/18 184 Resp: 15 15 14 14 02/09/18 1700 02/09/18 17202/09/18 17502/09/18 1800 SpO2: 98% 100% 98% 96% [...] 09, 2018 TIME: 7:54 PM PAGER/CONTACT #: [phone] Juan Cabral MD 02/10/2018 8:38 AM Signed Result Noted. Patient is currently hospitalized and managed by the in-patient team. MD Juan Martinez MD 02/10/2018 10:12 AM Signed Result Noted. Patient is currently hospitalized and managed by the in-patient team. MD Juan Martinez MD 02/10/2018 10:27 AM Signed Result Noted. Patient is currently hospitalized and managed by the in-patient team. MD Harpreet Martinez, MANUEL 02/10/2018 11:20 AM Signed PHYSICAL THERAPY MISSED VISIT SERVICE DATE: 02/10/2018 SERVICE TIME: 1119 to 1120 ROOM: [place] [address] Attempted Evaluation. Patient not seen due to Illness (Intubated). SIGNATURE: Harpreet Hardin PT PATIENT NAME: Jeffrey Cullen DATE: February 10, 2018 TIME: 11:20 AM PAGER/CONTACT #: Nuria Young OTR/L 02/10/2018 12:06 PM Signed OCCUPATIONAL THERAPY MISSED VISIT SERVICE DATE: 02/10/2018 SERVICE TIME: 1202 to 1202 ROOM: [place] [address] Attempted Evaluation. Patient not seen due to (s/p CABG 02/09 still intubated). SIGNATURE: Nuria Young OTR/L PATIENT NAME: Jeffrey Cullen DATE: February 10, 2018 TIME: 12:06 PM PAGER/CONTACT #: Ale Key RN, RN 02/10/2018 1:07 PM Addendum CARE MANAGEMENT: ASSESSMENT AND DISCHARGE PLAN SERVICE DATE: 02/10/2018 SERVICE TIME: 12:39 PM PRIMARY CARE PHYSICIAN: Richie De La Torre DO ADMISSION STATUS: Inpatient Needs Prior to Discharge: OT/PT Evaluation;Discharge Transportation;Accepting Facility MEDICAL: Patient/Formula Technician Stated Goals: sister trev here from [place] until 02/15 anticipate snf at [facility] Health Insurance: MEDICARE A AND B [employer] Issues Impacting Discharge Plan: None Last Admission [...] None Has the Patient Been in a Longterm Facility in the Past 30 days? No SOCIAL: Living Arrangement: Home Lives With: Alone Financial Resources: Retired Primary Contact: Extended Emergency Contact Information Primary Emergency Contact: Trev Carmen Hessmer Relation: Sister Supportive: Yes Other Important Patient Contacts: None Caregiver Assessment: Caregiver is ready, willing and able to meet the patient's needs as recommended by the inter-professional team? sister returning to [facility] next tue--no other family Patient's transition needs [...] 0 I feel financially burdened by my rxp-[id number] expenses for my prescription medication: Agree completely [...] N/A sister and he had prev discussed [facility] POTENTIAL TRANSITION PLANS Longterm Facility/Intermediate Care Facility To Be Determined Met with pt's sister at bedside (in town from [place] through 02/15) NO other family. Prev discussed and now he will need rehab and would like to go to [facility]. Pt still intubated will follow up next week. Evals are ordered. PS tasked to follow SIGNATURE: Ale Key RN PATIENT NAME: Jeffrey Cullen DATE: February 10, 2018 TIME: 12:39 PM PAGER/CONT# [phone] Previous Version Juan Cabral MD 02/10/2018 12:43 [...] Mediastinal Tube #2 1 day Chest Tube 03/15/18 1200 Left Anterior Pleural Tube #1 1 [...] Sedated Respiratory/Nursing Documentation: O2 Therapy: Ventilator (02/10/18 113) Invasive Ventilator Mode: Pressure Regulated Volume Control (02/10/181138) Set Ventilator Respiratory Rate (BPM): 16 (02/10/18 113) Total Respiratory Rate (BPM): 24 (02/10/181138) Tidal Volume Set (mL): 550 (02/10/18 113) Exhaled Tidal Volume (mL): 600 (02/10/18 113) Minute Volume (L): 10.5 (02/10/18 113) Peak [...] postoperative changes. ?Note is made that the [place] catheter appears coiled in the pulmonary outflow tract. Assessment/Plan PROBLEMS: ACTIVE PROBLEM LIST Inguinal Hernia Without Mention of Obstruction Or Gangrene, Unilateral Or Unspecified, (Not Specified As Recurrent) Nstemi (Non-St Elevated Myocardial Infarction) ([facility]) Nsvt (Nonsustained Ventricular Tachycardia) ([facility]) Nicotine use disorder, F17.2 1. Anticipated post-op [...] 10, 2018 TIME: 12:58 PM PAGER/CONTACT #: [phone] Clementine Owen APRN.CAMP ASSISTANT 02/10/2018 4:21 PM Signed CARDIOTHORACIC SURGERY POSTOP [...] 10, 2018 TIME: 4:10 PM PAGER/CONTACT #: [phone] Juan Cabral MD 02/10/2018 2:34 PM Signed [...] Score: Pt. 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 BP 88/68 Pulse [...] As Recurrent) Nstemi (Non-St Elevated Myocardial Infarction) ([facility]) Nsvt (Nonsustained Ventricular Tachycardia) ([facility]) Nicotine use disorder, F17.2 1. [...] 11, 2018 TIME: 9:12 AM PAGER/CONTACT #: [phone] Dionicio Prieto RN, RN 02/11/2018 9:59 AM Signed Nursing Progress Note Patient Name: Jeffrey Cullen Patient Location: [place] [address]/[place] [address]* Sedation holiday attempted at 0920 and ended at 0950 d/t increased HR/RR. Patient unable to follow commands during holiday. Patient spontaneously moves all extremities/opens eyes. Phenylephrine gtt weaned off during holiday d/t increased BP. Propofol restarted at a lower dose and Phenylephrine remains on hold for now (Will restart as needed). This note was completed by: ANGELINA Hughes, RD, LD, RD 02/11/2018 1:42 PM Signed [...] As Recurrent) Nstemi (Non-St Elevated Myocardial Infarction) ([facility]) Nsvt (Nonsustained Ventricular Tachycardia) ([facility]) [...] lb) 12/04/07 : 100.2 kg (221 lb) [place] Body Weight: 78.2kg Resting Metabolic Rate: 1897 Estimated kilocalorie needs: 0897-2107 kilocalories determined by 25-30 kcal/kg ideal body weight Estimated protein needs: 102-133 grams determined by 1.3-1.7 g/kg [place] weight Estimated fluid needs: 3669-9986 milliliters based on 1 mL per kcal [...] February 11, 2018 TIME: 10:08 AM PAGER: [phone] Evans Parkinson MD 02/11/2018 10:19 AM Signed [...] 2018 TIME: 10:15 AM PAGER/CONTACT #: [phone] Juan Cabral MD 02/11/2018 12:37 PM Signed [...] 2018 TIME: 10:46 AM PAGER/CONTACT #: [phone] Juan Cabral MD 02/12/2018 11:02 AM Signed [...] (02/12/181218) Peak Inspiratory Pressure (cm H2O): 17 (02/12/181218) PEEP/CPAP (cm H2O): 10 (02/12/181218) HEMODYNAMIC DATA: [...] FINDINGS: 02/12: IMPRESSION: ? Interval removal of [place] catheter left-sided thoracostomy tube. ? No significant [...] As Recurrent) Nstemi (Non-St Elevated Myocardial Infarction) ([facility]) Nsvt (Nonsustained Ventricular Tachycardia) ([facility]) Nicotine use disorder, F17.2 1. [...] 12, 2018 TIME: 3:22 PM PAGER/CONTACT #: [phone] Juan Cabral MD 02/13/2018 6:42 AM Signed Result Noted. Patient is currently hospitalized and managed by the in-patient team. MD Juan Martinez MD 02/13/2018 9:07 AM Signed Result Noted. Patient is currently hospitalized and managed by the in-patient team. MD Ale Martinez RN, RN 02/13/2018 9:33 AM Signed CARE MANAGEMENT PROGRESS NOTE SERVICE DATE: 02/13/2018 SERVICE TIME: 9:32 AM LOS: 6 days Needs Prior to Discharge: OT/PT Evaluation;Discharge Transportation;Accepting Facility Pt still intubated. Spoke with sister Trev (here from [place] till Tuesday--but considering extending if pt still on ventilator) Emotional support given. Will follow once extubated and will need evals for anticipated [facility] pending loc needs SIGNATURE: Ale Key RN PATIENT NAME: Jeffrey Cullen DATE: February 13, 2018 TIME: 9:32 AM PAGER/CONTACT #: [phone] Ursula Goyal PT 02/13/2018 9:53 AM Signed PHYSICAL THERAPY MISSED VISIT SERVICE DATE: 02/13/2018 SERVICE TIME: 09 to 0952 ROOM: [place] [address] Attempted Evaluation. Patient not seen due to Not following commands (Intubated at this time). SIGNATURE: Ursula Goyal PT PATIENT NAME: Jeffrey Cullen DATE: February 13, 2018 TIME: 9:53 AM PAGER/CONTACT #: XU Matos 02/13/2018 11:14 AM Signed OCCUPATIONAL THERAPY MISSED VISIT SERVICE DATE: 02/13/2018 SERVICE TIME: 1113 to 1114 ROOM: [place] [address] Attempted Evaluation. Patient not seen due to (intubated). Will continue to follow as able and appropriate. SIGNATURE: XU Matos PATIENT NAME: Jeffrey Cullen DATE: February 13, 2018 TIME: 11:13 AM PAGER/CONTACT #: [phone] KEON Ricci 02/13/2018 3:11 PM Signed CARDIOTHORACIC [...] 2018 TIME: 11:39 AM PAGER/CONTACT #:[phone] ETX [phone] Juan Cabral MD 02/13/2018 11:53 AM Signed [...] 39.4 48.2* 47.4* 62.0* -- -- -- [id number] 96.1 93.6* 95.2 97.6 96.2 -- -- [...] URINALYSIS: Recent Labs 02/10/18 0819 02/10/18 0547 02/09/18 2015 02/09/18 1738 02/09/18 1400 02/09/18 1252 02/09/18 1217 02/09/18 1144 PH 7.392 7.385 7.267* 7.261* 7.193* 7.236* 7.372 7.415 Assessment/Plan ASSESSMENT: ACTIVE PROBLEM LIST Inguinal Hernia Without Mention of Obstruction Or Gangrene, Unilateral Or Unspecified, (Not Specified As Recurrent) Nstemi (Non-St Elevated Myocardial Infarction) ([facility]) Nsvt (Nonsustained Ventricular Tachycardia) ([facility]) Nicotine use disorder, F17.2 S/P [...] of care, medical plan for the day, hr business partner consultant recommendations, medical disposition and current medical [...] services: 40 minutes. SIGNATURE: Keon Chance MD [facility] PAGER:[phone] DATE of SERVICE: February 13, 2018 TIME [...] procedures. SIGNATURE: Paulette Aguilar MD [facility] PAGER:[phone] DATE of SERVICE: February 13, 2018 TIME [...] recorded. Intake/Output Summary (Last 24 hours) at 03/20/18 1140 Last data filed at 02/14/18 1100 [...] February 14, 2018 TIME: 11:40 AM PAGER/CONTACT #:[phone] ETX [phone] Patient seen with PA and ELECTRICAL INSTRUMENTATION TECHNICIAN. Careplan reviewed. P-as ordered. Previous Version Keon [...] 39.3 39.4 48.2* 47.4* 62.0* -- -- [id number] 94.0* 96.1 93.6* 95.2 97.6 96.2 -- [...] services: 41 minutes. SIGNATURE: Keon Chance MD [facility] PAGER:[phone] DATE of SERVICE: February 14, 2018 TIME [...] post-pyloric tube placement Coordination of Care: Nursing, TUBE BUILDER AIRPLANE, and pharmacy Monitor and Evaluation: Goal: Meet [...] February 14, 2018 TIME: 1:22 PM PAGER: [phone] Juan Cabral MD 02/14/2018 5:43 PM Signed [...] ppx -Lovenox and SCDs Tests/Labs Ordered: 1. [facility] SIGNATURE: Clementine Owen APRN.CNP PATIENT NAME: Jeffrey Cullen DATE: February 15, 2018 TIME: 3:53 PM PAGER/CONTACT #: [phone] ETX [phone] Patient seen w ELECTRICAL INSTRUMENTATION TECHNICIAN. Labs, data, and careplan reviewed. P-as discussed/ordered. [...] 39.3 39.4 48.2* 47.4* 62.0* -- -- I2UXODAB 94.0* 96.1 93.6* 95.2 97.6 96.2 -- [...] As Recurrent) Nstemi (Non-St Elevated Myocardial Infarction) ([facility]) Nsvt (Nonsustained Ventricular Tachycardia) ([facility]) Nicotine use disorder, F17.2 S/P [...] status: Full Code. Discussed with Registered Nurse, STATISTICIAN, PharmD, and Yg Owen (Cardiovascular/Thoracic Surgery ELECTRICAL INSTRUMENTATION TECHNICIAN). Critical Care Documentation: The patient has the following organ/system impairment(s): Respiratory failure (Acute, with Hypoxemia) and coronary artery disease Time spent providing critical care services: 39 minutes. SIGNATURE: Keon Chance MD [facility] PAGER:[phone] DATE of SERVICE: February 15, 2018 TIME of SERVICE: 11:10 AM Juan Cabral MD 02/15/2018 1:32 PM Signed Result Noted. Patient is currently hospitalized and managed by the in-patient team. MD Ursula Martinez, PT 02/16/2018 8:34 AM Signed PHYSICAL THERAPY MISSED VISIT SERVICE DATE: 02/16/2018 SERVICE TIME: 08 to 0832 ROOM: [place] [address] Attempted Evaluation. Patient not seen due to Illness (Remain intubated. Please reconsult when patient is medically appropriate to work with physical therapy). SIGNATURE: Ursula Goyal, PT PATIENT NAME: Jeffrey Cullen DATE: February 16, 2018 TIME: 8:33 AM PAGER/CONTACT #: [phone] Latia Garcia, Utility Service Worker 02/16/2018 9:14 AM Signed Updated notes sent to [facility]. Sandra Alamguer, RD, LD, RD 02/16/2018 3:00 PM Signed [...] orders written. Coordination of Care: MD, pharmacy, TUBE BUILDER AIRPLANE, and nursing Monitor and Evaluation: Goal: Meet [...] dilTIAZem 100 mg in D5W 100 mL ADD-Nokomis (CARDIZEM) 5-15 mg/hr INTRAVENOUS CONTINUOUS nystatin 5 [...] February 16, 2018 TIME: 10:26 AM PAGER: [phone] Previous Version Keon Chance MD 02/16/2018 11:19 [...] dilTIAZem 100 mg in D5W 100 mL ADD-Nokomis (CARDIZEM) 5-15 mg/hr INTRAVENOUS CONTINUOUS nystatin 5 [...] 39.3 39.4 48.2* 47.4* 62.0* -- -- [id number] 94.0* 96.1 93.6* 95.2 97.6 96.2 -- [...] INR 1.23 1.24 BMP: Recent Labs 02/16/18 0602/15/18 0530 02/14/18 0503 02/13/18194402/13/18 0450 02/12/18 0501 [...] 1.19* 1.34* 1.01 CHEM: Recent Labs 02/16/18 0602/15/18 0530 02/14/18 0503 02/13/18194402/13/18 0450 02/12/18 0501 [...] 88* TBILI 0.6 URINALYSIS: Recent Labs 02/13/18194402/10/18 0802/10/18 0547 02/09/18201402/09/18 1738 02/09/18 1400 02/09/18 1252 02/09/18 1217 PH 7.310* 7.392 7.385 7.267* 7.261* 7.193* 7.236* 7.372 Assessment/Plan ASSESSMENT: ACTIVE PROBLEM LIST Inguinal Hernia Without Mention of Obstruction Or Gangrene, Unilateral Or Unspecified, (Not Specified As Recurrent) Nstemi (Non-St Elevated Myocardial Infarction) ([facility]) Nsvt (Nonsustained Ventricular Tachycardia) ([facility]) [...] status: Full Code. Discussed with Registered Nurse, STATISTICIAN, PharmD, and Yg Owen (Cardiovascular/Thoracic Surgery ELECTRICAL INSTRUMENTATION TECHNICIAN). Critical Care Documentation: The patient has the following organ/system impairment(s): Respiratory failure (Acute, with Hypoxemia) and coronary artery disease Time spent providing critical care services: 35 minutes. SIGNATURE: Keon Chance MD [facility] PAGER:[phone] DATE of SERVICE: February 16, 2018 TIME [...] normal; large amt thick sputum suctioned by film processing utility worker: regular rhythm, S1, S2 normal and pacing [...] 1. BMP 2. CBC SIGNATURE: Clementine Owen APRN.CAMP ASSISTANT PATIENT NAME: Jeffrey Cullen DATE: February 16, 2018 TIME: 11:21 AM PAGER/CONTACT #: [phone] ETX [phone] Patient seen w PA earlier today. afib recurring. Labs, data, and careplan reviewed. P-as ordered. Previous Version Angelica Malcolm RN, RN 02/16/2018 2:38 PM Signed Pt remains intubated, hoping to go to [facility] [place] Indu Frederick RN, RN 02/17/2018 11:16 AM Signed CARE MANAGEMENT PROGRESS NOTE SERVICE DATE: 02/17/2018 SERVICE TIME: 11:11 AM LOS: 10 days Needs Prior to Discharge: To Be Determined;OT/PT Evaluation;Accepting Facility;Discharge Transportation Chart reviewed. Remains in [facility] intubated, sedated on vent. Continues IV Cardizem. [facility] following for possible placement when medically stable. Will continue to follow clinical course for further DC planning. SIGNATURE: Indu Frederick RN PATIENT NAME: Jeffrey Cullen DATE: February 17, 2018 TIME: 11:11 AM PAGER/CONTACT #: [phone] Keon Chance MD 02/17/2018 11:59 AM Signed [...] dilTIAZem 100 mg in D5W 100 mL ADD-Nokomis (CARDIZEM) 5-15 mg/hr INTRAVENOUS CONTINUOUS nystatin 5 [...] 1945 RESPHCO3 25.1 PH 7.310* PCO2 51.4* B1BIZIEA 94.0* CBC: Recent Labs 02/17/18 1000 02/16/18 [...] 02/13/18 19402/13/18 0450 02/12/18 0501 02/11/18 0420 GLUC 123* [...] Nurse, PharmD, and Yg Owen (Cardiovascular/Thoracic Surgery ELECTRICAL INSTRUMENTATION TECHNICIAN). Critical Care Documentation: The patient has the following organ/system impairment(s): Respiratory failure (Acute, with Hypoxemia) and coronary artery disease Time spent providing critical care services: 35 minutes. SIGNATURE: Keon Chance MD [facility] PAGER:[phone] DATE of SERVICE: February 17, 2018 TIME of SERVICE: 11:45 AM HEATHER Driscoll/Fara 02/17/2018 11:44 AM Signed OCCUPATIONAL THERAPY MISSED VISIT SERVICE DATE: 02/17/2018 SERVICE TIME: 1142 to 1142 ROOM: [id number] Attempted Evaluation. Patient not seen due to remains sedated, on Ventilator. Will discontinue OT order at this time. Please reorder as needed when medically stable and able to participate. SIGNATURE: HEATHER Driscoll/Fara PATIENT NAME: Jeffrey Cullen DATE: February 17, 2018 TIME: 11:43 AM PAGER/CONTACT #:[phone] KEON Ricci 02/17/2018 2:34 PM Signed CARDIOTHORACIC [...] auscultation, thick sputum suctioned from tube per film processing utility worker: regular rhythm, pacing wires present and episodic [...] February 17, 2018 TIME: 11:44 AM PAGER/CONTACT #:[phone] [phone] Krystal Joseph RN, RN 02/17/2018 1:22 PM Signed PICC NURSE INSERTION NOTE DATE OF PROCEDURE: February 17, 2018 TIME OF PROCEDURE: 1220pm ORDERING PHYSICIAN: berkley INFORMED CONSENT: Obtained per hospital policy. INDICATION FOR LINE PLACEMENT: Incompatible drugs/need more lines available IV therapy over six days PH/Osmolality CONDITION OF LINE PLACEMENT: Sterile PRIMARY PROCEDURALIST: Krystal Joseph RN MANAGER MANAGED CARE: N/A PRE-PROCEDURE REVIEW ALLERGIES No Known Allergies [...] Completed Krystal Joseph RN CATHETER PLACEMENT Brand: bard Lot: [id number] Number of Lumens: 2 Type of PICC: Power Injectable PICC Lumen Size: 5 Bangl[place]hi PLACEMENT TECHNIQUE Lidocaine: Yes. Strength: 1% Volume [...] for PICC insertion. QUESTIONS or PROBLEMS: Call [phone] SIGNATURE: Krystal Joseph RN PATIENT NAME: Jeffrey Cullen DATE: February 17, 2018 TIME: 1:18 PM PAGER/CONTACT PHONE: Jayla Pineda RN, RN 02/17/2018 1:24 PM Signed PATIENT EDUCATION TOPIC: PROCEDURE / SURGERY: Procedure/Surgery: PICC Insertion PATIENT NAME: Jeffrey Cullen PATIENT LOCATION: [place] [address]* READINESS TO LEARN COGNITIVE ABILITY: On vent [...] None REFERRAL (RECOMMENDATION): None Electronically Signed By: ANGELINA Etienne Sr, Chaplain, Chaplain 02/17/2018 10:01 PM Signed SPIRITUAL CARE PROGRESS NOTE SERVICE DATE: 02/17/2018 SERVICE TIME: 0626 PM Pt is intubated and resting peacefully. I left a compassionate note on the small table for the patient/family/friends. To contact the Spiritual Care Department: Please call 00 SIGNATURE: Chaplain Kyrstle PATIENT NAME: Jeffrey Cullen DATE: February 17, 2018 TIME: 10:00 PM PAGER/CONTACT #: [phone] Krystal MillerJOSUE.CABINET ASSEMBLER 02/18/2018 9:37 AM Signed MICU - PROGRESS [...] dilTIAZem 100 mg in D5W 100 mL ADD-Nokomis (CARDIZEM) 5-15 mg/hr INTRAVENOUS CONTINUOUS nystatin 5 [...] 1310 Peripherally Inserted (PICC) Right Arm 5.0 Bangladeshi less than 1 day Drain GI Feed/Drain [...] 40 minutes excluding procedures. SIGNATURE: Krystal Miller APRN.CABINET ASSEMBLER PATIENT NAME: Jeffrey Cullen DATE: February 18, [...] 02/13/181944 RESPHCO3 25.1 PH 7.310* PCO2 51.4* [id number] 94.0* CBC: Recent Labs 02/18/18 0520 02/17/18 [...] As Recurrent) Nstemi (Non-St Elevated Myocardial Infarction) ([facility]) Nsvt (Nonsustained Ventricular Tachycardia) ([facility]) Nicotine use disorder, F17.2 S/P [...] Nurse, PharmD, and Yg Owen (Cardiovascular/Thoracic Surgery ELECTRICAL INSTRUMENTATION TECHNICIAN). Critical Care Documentation: The patient has the following organ/system impairment(s): Respiratory failure (Acute, with Hypoxemia) and coronary artery disease Time spent providing critical care services: 35 minutes. SIGNATURE: Evelin Coronado MD [facility] PAGER:[phone] DATE of SERVICE: February 18, 2018 TIME [...] Intake/Output Summary (Last 24 hours) at 02/19/18 8847 Last data filed at 02/19/18 1400 Gross [...] 1945 RESPHCO3 25.1 PH 7.310* PCO2 51.4* W4OOFUGR 94.0* CBC: Recent Labs 02/19/18 0550 02/18/18 [...] As Recurrent) Nstemi (Non-St Elevated Myocardial Infarction) ([facility]) Nsvt (Nonsustained Ventricular Tachycardia) ([facility]) Nicotine use disorder, F17.2 S/P [...] Nurse, PharmD, and Yg Owen (Cardiovascular/Thoracic Surgery ELECTRICAL INSTRUMENTATION TECHNICIAN). Critical Care Documentation: The patient has the following organ/system impairment(s): Respiratory failure (Acute, with Hypoxemia) and coronary artery disease Discussed with VE TEACHER and Dr. Ojeda. Time spent providing critical care services: 41 minutes. SIGNATURE: Evelin Coronado MD [facility] PAGER:[phone] DATE of SERVICE: February 19, 2018 TIME of SERVICE: 3:55 PM Krystal Miller APRN.CABINET ASSEMBLER 02/20/2018 9:32 AM Signed MICU - PROGRESS [...] 1310 Peripherally Inserted (PICC) Right Arm 5.0 Bangladeshi 2 days Drain GI Feed/Drain 02/09/18 0800 [...] (02/20/18809) Peak Inspiratory Pressure (cm H2O): 10 (03/26/18 0810) PEEP/CPAP (cm H2O): 5 (02/20/18 0810) HEMODYNAMIC DATA: Reviewed NUTRITION: Enteral Feeds: Yes [...] 35 minutes excluding procedures. SIGNATURE: Krystal Miller APRN.CABINET ASSEMBLER PATIENT NAME: Jeffrey Cullen DATE: February 20, [...] on at present Coordination of Care: Nursing, TUBE BUILDER AIRPLANE, MD, and Pharmacy Monitor and Evaluation: Goal: [...] lb) 12/04/07 : 100.2 kg (221 lb) [place] Body Weight: 78.2kg Resting Metabolic Rate: 1897 Estimated kilocalorie needs: 0040-7988 kilocalories determined by 25-30 kcal/kg ideal body weight Estimated protein needs: 102-133 grams determined by 1.3-1.7 g/kg [place] weight Estimated fluid needs: 9241-0404 milliliters based on 1 mL per kcal [...] February 20, 2018 TIME: 10:31 AM PAGER: [phone] Previous Version Beata Marin MD 02/20/2018 5:44 PM Addendum CARDIOTHORACICSURGERY PROGRESS NOTE SERVICE DATE: 02/20/2018 SERVICE TIME: 10:45 AM Ventricular Pacing Wires removed. Patient sedated and intubated. A single ventricular wire and ground lead were removed at 10:42AM without complication. Patient tolerated procedure well. Nurse will monitor VS w12a9mq, then q30x1h, then w5og9de. SIGNATURE: Misti Stein PA-C PATIENT NAME: Jeffrey Cullen DATE: February 20, 2018 TIME: 10:45 AM PAGER/CONTACT #: [phone] ETX#[id number] Patient seen and still on vent. Perhaps [...] 02/13/181944 RESPHCO3 25.1 PH 7.310* PCO2 51.4* [id number] 94.0* CBC: Recent Labs 02/20/18 0610 02/19/18 [...] 0600 02/15/18 0530 02/14/18 0503 02/13/18 1945 CA 8.2* 8.5 8.3* 8.1* 8.1* 8.2* 8.2* 8.0* MG -- -- -- 2.5 -- -- -- 2.2 URINALYSIS: Recent Labs 02/13/181944 PH 7.310* Assessment/Plan ASSESSMENT: ACTIVE PROBLEM LIST Inguinal Hernia Without Mention of Obstruction Or Gangrene, Unilateral Or Unspecified, (Not Specified As Recurrent) Nstemi (Non-St Elevated Myocardial Infarction) ([facility]) Nsvt (Nonsustained Ventricular Tachycardia) ([facility]) Nicotine use disorder, F17.2 S/P [...] services: 38 minutes. SIGNATURE: Keon Chance MD [facility] PAGER:[phone] DATE of SERVICE: February 20, 2018 TIME [...] goals of care,?medical plan for the day, hr business partner consultant recommendations, medical disposition and current medical [...] Malcolm RN, RN 02/20/2018 5:26 PM Signed Vest TCU updated, cont to follow Juan Jauregui RN, RN 02/20/2018 9:24 PM Signed Nursing Progress Note Patient Name: Jeffrey Cullen Patient Location: [place] [address]* Daily Note: 2044: Pt attempted to take to MRI, pt unable to hold head without movement for the duration of procedure. MRI mynor states pt unable to do at this time. Will continue to monitor. 2100: Spoke with pt sister in [place] Trev, updated about MRI and pt throughout day. Pt sister would like NPCS to talk with Dr. Adrian Joy in [place] this is a family practice doctor who has previously seen pt. Dr. Joy will call throughout the day tomorrow. Trev who is the pt sister is acting DPOA, is closest relative and giving permission for Dr. Joy to call for information. Will continue to monitor. This note was completed by: Juan Jauregui, CHAPLAIN Howell Chaplain 02/21/2018 12:19 PM Signed SPIRITUALCARE Spiritual Care Visit- Brief Note Name: Jeffrey Cullen Date: February 21, 2018 Notes: As system support technician, attempted intro visit, but pt was sleeping. Left SC card bedside. Gas Meter Reader Signature: CHAPLAIN Francis To contact the [facility] Care Department: Please call [phone] or Page the On-Call Gas Meter Reader at pager [phone] Thank you for the opportunity to be [...] Myocardial Infarction) ([facility]) Nsvt (Nonsustained Ventricular Tachycardia) ([facility]) Nicotine use disorder, F17.2 Malnutrition [...] As Recurrent) Nstemi (Non-St Elevated Myocardial Infarction) ([facility]) Nsvt (Nonsustained Ventricular Tachycardia) ([facility]) Nicotine use disorder, F17.2 Malnutrition of Moderate Degree ([facility]) S/P CABG, POD # 12 [...] Full Code. Discussed with Registered Nurse and STATISTICIAN. Critical Care Documentation: The patient has the following organ/system impairment(s): Respiratory failure (Acute, with Hypoxemia) and coronary artery disease Time spent providing critical care services: 39 minutes. SIGNATURE: Keon Chance MD [facility] PAGER:[phone] DATE of SERVICE: February 21, 2018 TIME [...] 1310 Peripherally Inserted (PICC) Right Arm 5.0 Bangladeshi 4 days Drain GI Feed/Drain 02/09/18 0800 [...] February 21, 2018 TIME: 3:19 PM PAGER/CONTACT #:[phone] ETX [id number] Suzanne Prasad PA-C 02/21/2018 3:28 PM Signed [...] As Recurrent) Nstemi (Non-St Elevated Myocardial Infarction) ([facility]) Nsvt (Nonsustained Ventricular Tachycardia) ([facility]) Nicotine use disorder, F17.2 Malnutrition of Moderate Degree ([facility]) S/P CABG, POD # 13 Acute exacerbation [...] services: 39 minutes. SIGNATURE: Keon Chance MD [facility] PAGER:[phone] DATE of SERVICE: February 22, 2018 TIME of SERVICE: 11:09 AM Chandni Lopez, Utility Service Worker 02/22/2018 11:25 AM Signed LTAC referral created to: [facility]. Awaiting acceptance. Elaine Sweeney MD 02/22/2018 2:28 PM Signed INTERVENTIONAL RADIOLOGY POST PROCEDURE NOTE DATE: 02/22/18 NAME: Jeffrey Cullen LOG ID: [id number] Pre-Procedure Diagnosis: S/p CABG, encephalopathy, respiratory failure. Need for prolonged enteral nutrition. Post Procedure Diagnosis: Same. Office Assistant Receptionist: Dr. Elaine Sweeney Procedure: US/fluoroscopic guided percutaneous gastrojejunostomy tube placement Anesthesia: Procedural Sedation Findings: Successful placement of 18 Bangladeshi percutaneous gastrojejunostomy tube with tip in the proximal jejunum. Estimated Blood Loss: Minimal (Less Than 25 mL). Specimen: None Complications: None Full report with procedural details to follow and will become available under Imaging Reports. Please contact for any questions or concerns. SIGNATURE: Elaine Sweeney MD PATIENT NAME: Jeffrey Cullen DATE: February 22, 2018 TIME: 2:27 PM PAGER/CONTACT #: Angelica Malcolm RN, RN 02/22/2018 3:41 PM Signed [facility]erral made to [facility], s/p G-J tube, plan to trach later today, will update [facility]. ALLERGIES ALLERGIES DATE TYPE / CODE NAME / CODE REACTION SEVERITY SOURCE 12/19/2018 Drug No Known Unknown [facility] Allergy/416 Allergies/E54503 Hospital 769586(SNOM 0388(RXNORM) Repository ED CT) 04/22/2018 Environ/420 BEE STING UNKNOWN [facility] 858668(SNOM Main [place] ED CT) Repository NG/37367302 [facility]EE [facility] 6(SNOMED [facility] CT) Repository Drug NO KNOWN [facility] Class/47150 ALLERGIES Other [place] 1003(SNOMED Repository CT) NG/63448483 NO KNOWN [facility] 6(SNOMED ALLERGIES Health System CT) Repository ENCOUNTERS ENCOUNTERS ADMIT/DISCHARGE ACCOUNT NUMBER ADMITTING ENCOUNTER LOCATION SOURCE CLASS 12/19/2018 [id number] Ambulatory [facility] ding:LAB Repository 12/19/2018/12/19/19 [id number] Ambulatory BMSBuilding: [place] [facility] Repository 12/08/2018 [id number] Ambulatory [facility] ding:CR Repository 11/01/2018/11/27/20 [id number] Ambulatory [address] ding:CR Repository 10/27/2018/10/27/20 [id number] Ambulatory [address] ding:CR Repository 10/23/2018/10/23/20 [id number] Ambulatory BMSBuilding: [place] 18 BMS.[facility] Repository 10/20/2018/10/20/20 [id number] Emergency [address] Repository 10/03/2018 [id number] Ambulatory [facility] ding:[facility]S Repository 10/03/2018 [id number] Ambulatory BMSBuilding: [place] BMS.[facility] Repository 09/29/2018 [id number] Ambulatory BMSBuilding: [place] BMS.[facility] Repository 09/27/2018/09/27/20 [id number] Ambulatory [address] ding:CR Repository 09/22/2018 [id number] Ambulatory BMSBuilding: [place] [facility] Repository 09/19/2018/09/19/20 [id number] Ambulatory BMSBuilding: [place] 18 BMS.[facility] Repository 09/05/2018 [id number] Ambulatory [facility] ding:CR Repository 08/16/2018 [id number] Ambulatory [facility] ding:LAB Repository 08/16/2018/08/16/20 [id number] Ambulatory BMSBuilding: [place] 18 [facility] Repository 08/11/2018 [id number] Ambulatory BMSBuilding: [place] [facility] Repository 07/26/2018/07/26/20 [id number] Ambulatory BMSBuilding: [place] 18 BMS.[facility] Repository 06/14/2018/06/14/20 [id number] Ambulatory BMSBuilding: [place] 18 BMS.[facility] Repository 06/07/2018/06/07/20 [id number] Ambulatory BMSBuilding: [place] 18 BMS.[facility] Repository 2018 [id number] Ambulatory [facility] Repository 2018 [id number] [facility]/2018 [id number] Ambulatory [facility] Repository 05/09/2018 [id number] [facility]:AK[facility] 04/27/2018/05/25/20 [id number] ANN-MARIE, Ambulatory [place] [address] GIO A [facility] Main [place] Repository 04/22/2018/04/27/20 [id number] [facility], Inpatient [address] Repository 04/22/2018/04/27/20 [id number] [facility] 18 [facility] nARoom: 5212Bed: 04/22/2018/04/22/20 [id number] Emergency [address] Repository 04/17/2018 [id number] [facility], Ambulatory [facility] Repository 04/17/2018/04/17/20 [id number] [facility] Inpatient [facility] [address] ng:AKIRRoom: POOLBed: 02/07/2018/03/13/20 [id number] [facility], Inpatient [address] Repository 02/07/2018/03/13/20 [id number] [facility], Inpatient [facility] 18 [facility] ng:CVICRoom: 3237Bed: 01 PAYERS PAYERS ENCOUNTER GUARANTOR PAYER SUBSCRIBER SOURCE 12/19/2018 JEFFREY CULLEN Primary JEFFREY L INDOE [place] [facility] Insurance:MEDICARE Jr.: [facility], PART A BPolicy Number: [id number] [address]Owg: [id number] Repository Date:2018-12-19 () 12/19/2018 Secondary JEFFREY L INDOE [place] Insurance:HUMANA Jr.: [facility] [id number] Hospital Number: Repository [id number] Date:3691-19-70GP [address] [address]TS: 12/19/2018 Tertiary NOT GIVENUNK [place] Insurance:SELF PAY [facility] Hospital Number: Effective Repository Date:2018-12-19 12/19/2018 JEFFREY L INDOE Primary JEFFREY L INDOE [place] [address] Insurance:MEDICARE Jr.: [facility], PART A BPolicy Number: [id number] [facility] [address]Dby: [id number] Repository Date:2018-08-16 () 12/19/2018 Secondary JEFFREY L INDOE [place] Insurance:HUMANA Jr.: [facility] [id number] Hospital Number: Repository [id number] Date:4710-16-62CN[address] [address]UA: 12/19/2018 Tertiary NOT GIVENUNK [place] Insurance:SELF PAY [facility] Hospital Number: Effective Repository Date:2018-12-15 12/08/2018 JEFFREY L INDOE Primary JEFFREY L INDOE [place] [address] Insurance:MEDICARE Jr.: [facility], PART A BPolicy Number: [id number] 101[address]Gst: [id number] Repository Date:2018-09-05 () 12/08/2018 Secondary JEFFREY L INDOE [place] Insurance:HUMANA Jr.: [facility] [id number] Hospital Number: Repository [id number] Date:3225-14-02RC [address] [address]BQ: 12/08/2018 Tertiary NOT GIVENUNK [place] Insurance:SELF PAY [facility] Number: Effective Repository Date:2018-11-28 11/01/2018 JEFFREY L INDOE Primary JEFFREY L INDOE [place] [address] Insurance:MEDICARE Jr.: [facility], PART A BPolicy Number: [id number] [address]641Gtn: [id number] Repository Date:2018-09-05 () 11/01/2018 Secondary JEFFREY L INDOE [place] Insurance:HUMANA Jr.: [facility] [id number] Hospital Number: Repository [id number] Date:0767-28-91KW [address] [address]NK: 11/01/2018 Tertiary NOT GIVENUNK [place] Insurance:SELF PAY [facility] Number: Effective Repository Date:2018-10-28 10/27/2018 JEFFREY L INDOE Primary JEFFREY L INDOE [place] [address] Insurance:MEDICARE Jr.: [facility], PART A [facility] Number: [id number] [facility] Hospital 18164Ypp: [id number] Repository Date:2018-09-05 () 10/27/2018 Secondary JEFFREY L INDOE [place] Insurance:HUMANA Jr.: [facility] [id number] Hospital Number: Repository [id number] Date:7153-01-63QT [address] [address]DX: 10/27/2018 Tertiary NOT GIVENUNK [place] Insurance:SELF PAY [facility] Number: Effective Repository Date:2018-09-28 10/23/2018 JEFFREY L INDOE Primary JEFFREY L INDOE [place] [address] Insurance:MEDICARE Jr.: [facility], PART A olicy Number: [id number] Kaseman Hospital 1975[address]Ysi: [id number] Repository Date:2018-10-23 () 10/23/2018 Secondary JEFFREY L INDOE [place] Insurance:HUMANA Jr.: [facility] [id number] Hospital Number: Repository [id number] Date:3185-63-68CL[address] [address]XA: 10/23/2018 Tertiary NOT GIVENUNK [place] Insurance:SELF PAY [facility] Hospital Number: Effective Repository Date:2018-10-23 10/03/2018 JEFFREY L INDOE Primary JEFFREY L INDOE [place] [address] Insurance:MEDICARE Jr.: [facility], PART A BPolicy Number: [id number] Kaseman Hospital [address]Xrs: [id number] Repository Date:2018-09-19 () 10/03/2018 Secondary JEFFREY L INDOE [place] Insurance:HUMANA Jr.: [facility] [id number] Hospital Number: Repository [id number] Date:4352-94-10TQ[address] [address]HN: 10/03/2018 Tertiary NOT GIVENUNK [place] Insurance:SELF PAY [facility] Hospital Number: Effective Repository Date:2018-09-19 10/03/2018 JEFFREY L INDOE Primary JEFFREY L INDOE [place] [address] [place] Insurance:MEDICARE Jr.: [facility], PART A olicy Number: [id number] [facility] Hospital [address]Nld: [id number] Repository Date:2018-09-19 () 10/03/2018 Secondary JEFFREY L INDOE [place] Insurance:HUMANA Jr.: [facility] [id number] Hospital Number: Repository [id number] Date:9397-59-34OM[address] [address]RQ: 10/03/2018 Tertiary NOT GIVENUNK [place] Insurance:SELF PAY [facility] Hospital Number: Effective Repository Date:2018-10-03 09/29/2018 JEFFREY L INDOE Primary JEFFREY L INDOE [place] [address] [place] Insurance:HUMANA Jr.: [facility], MEDICARE PPOPolicy [id number] Kaseman Hospital [address]Vgk: Number: Repository [id number] () Date:1600-62-64CV[address] [address]OR: 09/29/2018 Secondary JEFFREY L INDOE [place] Insurance:MEDICARE Jr.: [facility] PART A BPolicy Number: [id number] Hospital [id number] Repository Date:2018-09-29 09/29/2018 Tertiary NOT GIVENUNK [place] Insurance:SELF PAY [facility] Number: Effective Repository Date:2018-09-29 09/27/2018 JEFFREY L INDOE Primary JEFFREY L INDOE [place] [address] Insurance:MEDICARE Jr.: [facility], PART A olicy Number: [id number] [facility] Hospital [address]Lew: [id number] Repository Date:2018-09-05 () 09/27/2018 Secondary JEFFREY L INDOE [place] Insurance:HUMANA Jr.: [facility] [id number] Hospital Number: Repository [id number] Date:6689-95-67ZL[address] [address]YD: 09/27/2018 Tertiary NOT GIVENUNK [place] Insurance:SELF PAY [facility] Hospital Number: Effective Repository Date:2018-09-05 09/22/2018 JEFFREY L INDOE Primary JEFFREY L INDOE [place] [address] Insurance:MEDICARE Jr.: [facility], PART A olicy Number: [id number] Kaseman Hospital [address]Ysp: [id number] Repository Date:2018-09-05 () 09/22/2018 Secondary JEFFREY L INDOE [place] Insurance:HUMANA Jr.: [facility] [id number] Hospital Number: Repository [id number] Date:7464-26-98WM[address] [address]LW: 09/22/2018 Tertiary NOT GIVENUNK [place] Insurance:SELF PAY [facility] Number: Effective Repository Date:2018-09-22 09/19/2018 JEFFREY L INDOE Primary JEFFREY L INDOE [place] [address] [place] Insurance:MEDICARE Jr.: [facility], PART A BPolicy Number: [id number] Kaseman Hospital [address]Moq: [id number] Repository Date:2018-09-18 () 09/19/2018 Secondary JEFFREY L INDOE [place] Insurance:HUMANA Jr.: Community MEDICARE PPOPolicy [id number] Hospital Number: Repository [id number] Date:0255-53-89DP[address] [address]EV: 09/19/2018 Tertiary NOT GIVENUNK [place] Insurance:SELF PAY [facility] Number: Effective Repository Date:2018-09-18 09/05/2018 JEFFREY L INDOE Primary JEFFREY L INDOE [place] [address] Insurance:MEDICARE Jr.: [facility], PART A BPolicy Number: [id number] Kaseman Hospital [address]Mzm: [id number] Repository Date:2018-09-01 () 09/05/2018 Secondary JEFFREY L INDOE [place] Insurance:HUMANA Jr.: [facility] [id number] Hospital Number: Repository [id number] Date:6122-16-80QB[address] [address]YR: 09/05/2018 Tertiary NOT GIVENUNK [place] Insurance:SELF PAY [facility] Number: Effective Repository Date:2018-09-01 08/16/2018 JEFFREY L Primary JEFFREY L [place] [id number] Insurance:MEDICARE INDOEDOB: [facility] [place] PART A BPolicy Number: [id number] [id number] Repository [address]Uxb: 330) Date:2018-08-160084 () 08/16/2018 Secondary JEFFREY L [place] Insurance:HUMANA INDOEDOB: Community COMMERCIALPolicy [id number] Hospital Number: Repository [id number] Date:7048-85-61OB [address] [address]KT: 08/16/2018 Tertiary NOT GIVENUNK [place] Insurance:SELF PAY [facility]: Effective Repository Date:2018-08-16 08/16/2018 JEFFREY L Primary JEFFREY L [place] [id number] Insurance:MEDICARE INDOEDOB: Community [place] PART A BPolicy Number: [id number], [place] [id number] Repository [address]Pfr: 330) Date:2018-08-02 () 08/16/2018 Secondary JEFFREY L [place] Insurance:HUMANA INDOEDOB: Community COMMERCIALPolicy [id number] Hospital Number: Repository [id number] Date:3683-97-29DX [address] [address]SA: 08/16/2018 Tertiary NOT GIVENUNK [place] Insurance:SELF PAY [facility] Hospital Number: Effective Repository Date:2018-08-16 08/11/2018 JEFFREY L Primary JEFFREY L [place] [id number] Insurance:MEDICARE INDOEDOB: [facility] [place] PART A BPolicy Number: [id number], [place] [id number] Repository [address]Xia: (330) Date:2018-08-11 () 08/11/2018 Secondary JEFFREY L [place] Insurance:HUMANA INDOEDOB: Community COMMERCIALPolicy [id number] Hospital Number: Repository [id number] Date:8798-40-99YV[address] [address]OC: 08/11/2018 Tertiary NOT GIVENUNK [place] Insurance:SELF PAY [facility] Hospital Number: Effective Repository Date:2018-08-11 07/26/2018 JEFFREY [id number] Primary JEFFREY INDOEDOB: [place] [place] Insurance:MEDICARE [id number] PART A BPolicy Number: Hospital [address]Xnw: 330 [id number] Repository [id number] () Date:2018-06-14 07/26/2018 Secondary JEFFREY INDOEDOB: [place] Insurance:HUMANA [id number] Hospital Number: Repository [id number] Date:5950-07-78LI [address] [place] [address]AF: 07/26/2018 Tertiary NOT GIVENUNK [place] Insurance:SELF PAY Community [facility] Number: Effective Repository Date:2018-07-26 06/14/2018 JEFFREY [id number] Primary JEFFREY INDOEDOB: [place] [address] Insurance:MEDICARE [id number], [place] PART A BPolicy Number: Hospital [id number]: 330 [id number] Repository [id number] () Date:2018-06-07 06/14/2018 Secondary JEFFREY INDOEDOB: [place] Insurance:HUMANA [id number] Number: Repository [id number] Date:[id number] [address] [place] [id number]: 06/14/2018 Tertiary NOT GIVENUNK [place] Insurance:SELF PAY [facility] Number: Effective Repository Date:2018-06-14 06/07/2018 JEFFREY [id number] Primary JEFFREY INDOEDOB: [place] [facility] Insurance:MEDICARE [id number] PART A BPolicy Number: Hospital [id number]: 330 [id number] Repository [phone] () Date:2018-06-06 06/07/2018 Secondary JEFFREY INDOEDOB: [place] Insurance:HUMANA [id number] Hospital Number: Repository [id number] Date:[id number] [address] [place] [id number]: 06/07/2018 Tertiary NOT GIVENUNK [place] Insurance:SELF PAY [facility] Number: Effective Repository Date:2018-06-07 2018 JEFFREY L Primary JEFFREY L [facility] INDOEDOB: Insurance:MEDICARE A INDOEDOB: Health System AND BPolicy Number: [id number] Repository [place] [id number] [place] Date: [address]Hwx: (HP) 2018 Secondary JEFFREY L [facility] Insurance:HUMANA INDOEDOB: Health System MEDICARE [id number] Repository SUPPLEMENTPolicy Number: [id number] Date: 05/09/2018 JEFFREY L Primary JEFFREY L [facility] INDOEDOB: Insurance:MEDICARE A INDOEDOB: Health System AND BPolicy Number: [id number] Repository [place] [id number] [place], [place] Date: [address]Bgp: (HP) 05/09/2018 Secondary JEFFREY L [facility] Insurance:HUMANA INDOEDOB: Health System MEDICARE [id number] Repository SUPPLEMENTPolicy Number: [id number] Date: 04/22/2018 JEFFREY L Primary JEFFREY L [facility] INDOEDOB: Insurance:MEDICARE A INDOEDOB: Health System AND BPolicy Number: [id number] Repository [place] [id number] [place], [place] Date: [address]Ull: (HP) 04/22/2018 Secondary JEFFREY L [facility] Insurance:HUMANA INDOEDOB: Health System MEDICARE [id number] Repository SUPPLEMENTPolicy Number: [id number] Date: 04/17/2018 JEFFREY L Primary JEFFREY L [facility] INDOEDOB: Insurance:MEDICARE A INDOEDOB: Health System AND BPolicy Number: [id number] Repository [facility] [id number] [place], [place] Date: [address]Wml: (HP) 04/17/2018 Secondary JEFFREY L [facility] Insurance:HUMANA INDOEDOB: Health System MEDICARE [id number] Repository SUPPLEMENTPolicy Number: [id number] Date: 02/07/2018 JEFFREY Chaudhari Primary JEFFREY [facility] INDOEDOB: Insurance:MEDICARE A INDOEDOB: Health System AND BPolicy Number: [id number] Repository [facility] [id number] [place], [place] Date: [address]Ubx: (UQ) 02/07/2018 Secondary JEFFREY Ybarra Insurance:HUMANA INDOEDOB: Health System MEDICARE [id number] Repository SUPPLEMENTPolicy Number: [id number] Date:
== END ==
PROVIDERS: Family Provider Family Medicine; PCP Family Medicine; Referring Provider Nurse Practitioner Family; Visit Provider Nurse Practitioner Family
DX: R06.09 Other forms of dyspnea (principal)
CPT/HCPCS: 36415; 83880

== ENCOUNTER → 2019-04-13 08:32 | Outpatient (CLI) | payer MEDICARE, OTHER, SELFPAY ==
[2019-03-29 11:50] VITALS: BMI 32.9
[2019-04-13 09:00] VITALS: PULSE 101; PULSE 72; PULSE 73; PULSE 91; PULSE 93; PULSE 94; PULSE 95; O2SAT 91; O2SAT 93; O2SAT 94; O2SAT 95; O2SAT 97
--- NOTE | 2019-04-13 11:39 | PCM.PSN.6M ---
PSN 6 Minute Walk Test - 6 Minute Walk Test 6 Minute Walk Test: 6 Minute Walk Test PSN:6-Minute Walk Test Start: 04/13/19 09:09 Freq: Status: Active Protocol: RESP.6MINW Document 04/13/19 09:00 HG (Rec: 04/13/19 09:13 HG [id number]) 6 Minute Walk Test Date Performed 04/13/19 Time Performed 09:00 Height 5 ft 11 in Weight: 104.355 kg Weight in Pounds 230.[address]: Charles De La Torre Assistive device used: None Pre-test Oxygen Delivery Method Room Air Pulse Ox (%) 95 Pulse Rate (60-100 beats/min) 72 Dyspnea Jacinda Scale (0-10) 3 Exertion Jacinda Scale (6-20) 13 1st minute Oxygen Delivery Method Room Air Pulse Ox (%) 94 Pulse Rate (60-100 beats/min) 91 2nd minute Oxygen Delivery Method Room Air Pulse Ox (%) 93 Pulse Rate (60-100 beats/min) 93 3rd minute Oxygen Delivery Method Room Air Pulse Ox (%) 95 Pulse Rate (60-100 beats/min) 95 4th minute Oxygen Delivery Method Room Air Pulse Ox (%) 93 Pulse Rate (60-100 beats/min) 101 H 5th minute Oxygen Delivery Method Room Air Pulse Ox (%) 91 Pulse Rate (60-100 beats/min) 93 6th minute Oxygen Delivery Method Room Air Pulse Ox (%) 93 Pulse Rate (60-100 beats/min) 94 Post-test Oxygen Delivery Method Room Air Pulse Ox (%) 97 Pulse Rate (60-100 beats/min) 73 Dyspnea Jacinda Scale (0-10) 5 Exertion Jacinda Scale (6-20) 16 Full Laps Walked 16 Partial Lap, Number of Tiles Walked 0 Total Distance Walked (ft) 944 - Interpretation Interpretation: The patient was able to ambulate 944 feet over the course of 6 minutes on room air with no assistive devices or breaks. The patient did experience significant desaturation to as low as 91%. No significant tachycardia was noted. These findings are consistent with a respiratory limitation exercise tolerance. - Recommendations Recommendations: No supplemental oxygen is indicated at this time, but patient will need to be followed closely given level of desaturation.
== END ==
PROVIDERS: Family Provider Family Medicine; PCP Family Medicine; Referring Provider Internal Medicine Critical Care Medicine; Visit Provider Internal Medicine Critical Care Medicine
DX: R06.02 Shortness of breath (principal)
CPT/HCPCS: 94618

== ENCOUNTER → 2019-04-18 07:38 | Outpatient (CLI) | payer MEDICARE, OTHER, SELFPAY ==
[2019-03-29 11:50] VITALS: BMI 32.9
--- NOTE | 2019-04-18 13:38 | PFT ---
INTRODUCTION: The patient is a 68-year-old male that presents for pulmonary function studies secondary to a diagnosis of shortness of breath. Respiratory therapy reports good patient effort. Bronchodilators were used during testing. INTERPRETATION: Forced expiration spirometry demonstrates no evidence of a large airways obstructive ventilatory defect. There was no significant response to aerosolized bronchodilators. Spirograms are of good quality and do not plateau indicating slow emptying of the lungs. Body plethysmography was performed and reveals lung volumes to be within normal limits. Diffusing capacity by single breath CO is moderately reduced at 53% of predicted. IMPRESSION: Isolated moderate reduction in diffusing capacity, which could be related to an underlying pulmonary vascular disorder such as pulmonary hypertension.
== END ==
PROVIDERS: Family Provider Family Medicine; PCP Family Medicine; Referring Provider Internal Medicine Critical Care Medicine; Visit Provider Internal Medicine Critical Care Medicine
DX: R06.02 Shortness of breath (principal)
CPT/HCPCS: 94060; 94726; 94729

== ENCOUNTER → 2019-05-23 14:24 | Outpatient (CLI) | payer MEDICARE, OTHER, SELFPAY ==
[2019-05-23 14:14] VITALS: BMI 33.2
[2019-05-23 16:08] LABS: Anion Gap 9 (5-15); BUN 19 mg/dL (7-18); BUN/Creat Ratio 18.1 RATIO (10-20); Chloride 107 mmol/L (98-107); Creatinine, Serum 1.05 mg/dL (0.70-1.30); EST Glomerular Filtration Rate 74 mL/min (>60); Est Glom Filt Rate - Afr Amer 90 mL/min (>60); Glucose 86 mg/dL (74-106); Potassium 3.9 mmol/L (3.5-5.1); Sodium Level 142 mmol/L (136-145)
[2019-05-23 16:22] LABS: BNP,B-Type NATRIURETIC PEPTIDE 40.5 pg/mL (0-100)
== END ==
PROVIDERS: Family Provider Family Medicine; PCP Family Medicine; Referring Provider Nurse Practitioner Family; Visit Provider Nurse Practitioner Family
DX: I25.10 Atherosclerotic heart disease of native coronary artery without angina pectoris (principal); I25.5 Ischemic cardiomyopathy; R06.09 Other forms of dyspnea
CPT/HCPCS: 36415; 80048; 83880

== ENCOUNTER → 2019-06-07 07:31 | Outpatient (CLI) | payer MEDICARE, OTHER, SELFPAY ==
[2019-05-23 14:14] VITALS: BMI 33.2
--- NOTE | 2019-06-07 07:35 | ECHOD_ITS ---
Reason For Study: DYSPNEA/SOB Procedure This was a 2D Doppler, Color Flow transthoracic echocardiogram. Exam performed in department. Left Ventricle Normal LV size. The estimated ejection fraction is 50 %. Stage 1 diastolic dysfunction. There is borderline global hypokinesis of the left ventricle. Right Ventricle Normal RV size. Normal systolic function. Atria Normal left atrium. Normal right atrium. Mitral Valve Normal mitral valve. Mild (1+) eccentric mitral valve insufficiency. Tricuspid Valve Normal tricuspid valve. Mild (1+) tricuspid valve insufficiency. Pulmonary artery systolic pressure is 28 mmHg. Aortic Valve Normal aortic valve. Trisinus/trileaflet aortic valve. Pulmonic Valve Normal pulmonic valve. Great Vessels Normal aortic root. The pulmonary artery is normal size. Normal inferior vena cava. Pericardium/Pleural No pericardial effusion. MMode/2D Measurements & Calculations LVIDd: 4.9 cm IVSd: 1.1 cm Ao root diam: 3.6 cm LVIDs: 4.0 cm LVPWd: 1.0 cm RVDd: 3.9 cm FS: 18.7 % LAV(MOD-bp): 52.0 ml LVAd ap4: 41.3 cm2 SV(MOD-sp4): 65.7 ml LAV(MOD-bp) Indexed: 22.5 ml/m2 EDV(MOD-sp4): 163.8 ml LAV(MOD-sp2): 59.9 ml EDV(sp4-el): 166.4 ml LAV(MOD-sp4): 45.8 ml LVAs ap4: 30.7 cm2 ESV(MOD-sp4): 98.1 ml ESV(sp4-el): 99.5 ml EF(MOD-sp4): 40.1 % EF(sp4-el): 40.2 % SV(sp4-el): 66.9 ml LA A4 area: 17.5 cm2 LA dimension(2D): 4.3 cm RA A4 area: 12.1 cm2 Time Measurements MV dec time: 0.20 sec Doppler Measurements & Calculations MV E max octavio: 58.9 cm/sec Lat Peak E' Octavio: 9.2 cm/sec Med Peak E' Octavio: 5.9 cm/sec MV A max octavio: 72.2 cm/sec E/E' lat: 6.4 E/E' med: 9.9 MV E/A: 0.82 Ao V2 max: 128.6 cm/sec LV V1 max: 60.6 cm/sec PA V2 max: 125.6 cm/sec Ao max P.6 mmHg LV V1 max P.5 mmHg TR max octavio: 241.7 cm/sec TR max P.4 mmHg Interpretation Summary Normal LV size. The estimated ejection fraction is 50 %. Stage 1 diastolic dysfunction. Mild (1+) eccentric mitral valve insufficiency. Pulmonary artery systolic pressure is 28 mmHg. Ordering Physician: Charles De La Torre Referring Physician: PAMELA DE LA TORRE Performed By: Majo Avila RDCS
== END ==
PROVIDERS: Family Provider Family Medicine; PCP Family Medicine; Referring Provider Internal Medicine Critical Care Medicine; Visit Provider Internal Medicine Critical Care Medicine
DX: R06.02 Shortness of breath (principal)
CPT/HCPCS: 93306

== ENCOUNTER → 2019-06-25 05:56 | Outpatient (CLI) | payer MEDICARE, OTHER, SELFPAY ==
[2019-05-23 14:14] VITALS: BMI 33.2
--- NOTE | 2019-06-25 17:37 | STRESSREP_ITS ---
Stress Test Report Exercise myocardial perfusion stress test. 69-year-old man with a history of coronary artery disease status post coronary bypass surgery with a left internal mammary artery to left anterior descending artery, saphenous vein graft to right coronary artery and saphenous vein graft to circumflex artery. Stress protocol: Resting EKG demonstrates normal sinus rhythm with a rate of 63 bpm and no acute changes noted. Patient exercised according to regular Christofer protocol for total duration of 5 minutes and 15 seconds. Patient completed 2 minutes and 15 seconds into stage II of the Christofer protocol. The maximum heart rate attained was 122 bpm which was 81% of maximum predicted heart rate the maximum workload was 7 metabolic equivalents. At rest there were no ST or T wave changes noted suggest ischemia at peak exercise upsloping ST changes only were noted with no meet the criteria for ischemia. No clinical angina was noted. The patient was noted to be markedly short of breath with desaturation and his pulse oximetry. Myocardial perfusion protocol. 14.1 mCi of technetium 99m sestamibi was injected at rest. The patient exercis ed according to regular Christofer protocol for 5 minutes and 15 seconds at peak exercise 43.8 mCi of technetium 99m sestamibi was injected stress images were obtained stress and rest images were reconstructed and compared in the short axis vertical and horizontal long axis. Gated images were also obtained Perfusion SPECT analysis: Review of the stress images demonstrate uniform perfusion noted in the septum anterior wall and lateral wall. There is a medium size inferior defect noted on the stress images with moderate amount of improvement on the resting images. The above is suggestive of moderate zone of ischemia noted in the inferior wall. Previous infarct in this distribution cannot be completely excluded. Gated SPECT analysis: The gated ejection fraction is noted to be 42%. Conclusion: Abnormal exercise myocardial perfusion stress test at a moderate workload with evidence of inferior ischemia and a moderate size zone. Mild cardiomyopathy noted. Sinus rhythm noted throughout the stress test.
== END ==
PROVIDERS: Family Provider Family Medicine; PCP Family Medicine; Referring Provider Nurse Practitioner Family; Visit Provider Nurse Practitioner Family
DX: I25.10 Atherosclerotic heart disease of native coronary artery without angina pectoris (principal); R06.02 Shortness of breath; Z95.1 Presence of aortocoronary bypass graft
CPT/HCPCS: 78452; 93017; A9500; A4216

== ENCOUNTER 2019-06-28 10:15 | Outpatient (CLI) | payer MEDICARE, OTHER, SELFPAY ==
[2019-06-28 08:43] VITALS: BMI 34.0
--- NOTE | 2019-06-28 09:35 | HP_ITS ---
HPI HPI History of Present Illness Surgical H&P: Yes Details: JEFFREY IGLESIAS, is a 69 M who presents to the office today for a cardiovascular outpatient follow-up. He has a history of coronary artery disease with coronary artery bypass surgery and January 2018. He had an KUMAR to the LAD, SVG to the RCA and SVG to the circumflex. He also has a history of ischemic cardiomyopathy, paroxysmal atrial fibrillation, hypertension and hyperlipidemia. Postoperatively his course was complicated by respiratory failure requiring a tracheostomy and nonsustained ventricular tachyarrhythmia. He did spend time in an extended care facility. While he was there he fell out of a wheelchair and did sustain a subdural hematoma. He states previously the short course of diuretics did not change symptoms. He state since last office visit he has been developing gradual SOB with exertion. His dizziness has improved. He underwent stress testing where he exercised to a moderate workload with evidence of inferior ischemia and a moderate sized zone. He attained 7 metabolic equivalents. Pt denies chest, arm, jaw, or neck discomfort. His exercise tolerance is stable. Pt denies symptoms of palpitations, near syncopal or syncopal episodes. Pt denies edema or claudication issues. Pt. denies PND, fever, chills, blood in urine, blood in stool, myalgia, or unexplainable fatigue. He states orthopnea. He states lightheadedness, and dizziness with quick position changes. His physical exam here today demonstrates clear lung nunez regular rate and rhythm and no pedal edema. Intake Vital Signs 06/28/19 Height 5 ft 11 in 06/28/19 Weight: 244 lb 06/28/19 Body Mass Index (BMI) 34.0 06/28/19 Blood Pressure 126/78 H 06/28/19 Respiratory Rate 18 06/28/19 Pulse Rate 72 06/28/19 Pulse Ox 98 Intake Visit Reasons: 6 M FU Allergies propofol Allergy (Verified 06/28/19 09:05) asystole Medications atorvastatin 40 mg tablet 40 mg PO QDAY #90 tab 01/09/19 [Rx Confirmed 06/28/19] vit C 50 mg-E 15 unit-zinc cit 4.5 mg-lutein 2.5 mg-zeaxan chew tablet 2 tab PO DAILY 03/29/19 [History Confirmed 06/28/19] aspirin 81 mg tablet,delayed release 81 mg PO QDAY #90 tab 06/28/19 [Rx Confirmed 06/28/19] diltiazem CD 180 mg capsule,extended release 24 hr 180 mg PO QDAY #30 cap 06/28/19 [Rx Confirmed 06/28/19] furosemide 40 mg tablet 40 mg PO DAILY #30 tab 06/28/19 [Rx Confirmed 06/28/19] lisinopril 10 mg tablet 10 mg PO QDAY #30 tab 06/28/19 [Rx Confirmed 06/28/19] metoprolol succinate ER 25 mg tablet,extended release 24 hr 25 mg PO DAILY #30 tab 06/28/19 [Rx Confirmed 06/28/19] [facility] Medical History Essential (primary) hypertension (Chronic) Dizziness (Chronic) Acute subdural hematoma (Resolved 04/22/18) Paroxysmal atrial fibrillation (Chronic) Ischemic cardiomyopathy (Chronic) Atherosclerosis of coronary artery of [place] heart without angina pectoris (Chronic) Hyperlipemia (Chronic) Obesity (Chronic) COPD (chronic obstructive pulmonary disease) (Chronic) Depression (Chronic) History of non-ST elevation myocardial infarction (NSTEMI) (Chronic) Insomnia (Chronic) Metabolic encephalopathy (Chronic) Osteoarthritis (Chronic) Smokeless tobacco use (Chronic) Vertigo (Chronic) Leg pain, bilateral (Suspected) Klebsiella infection (Resolved) Nonsustained ventricular tachycardia (Resolved) Respiratory failure (Resolved) Syncope (Resolved) Surgical History History of coronary artery bypass graft (Resolved 02/09/18) Gastrojejunostomy tube status (Resolved 02/22/18) History of herniorrhaphy (Resolved) History of right knee joint replacement (Resolved) History of tracheostomy (Resolved 02/22/18) Family History Mother Hypertension Colon cancer Father Hypertension Social History (Updated 06/28/19 @ 09:35 by Dalton Torres MD) Smoking Status: Former smoker Tobacco: How many years used: 40 how long ago did patient quit smokin, 2.5ppd second hand exposure: Yes alcohol intake: never what type of physical activity do you participate in: none ROS Const Const: Positive for weakness; negative for fatigue, headache(s), frequent falls, difficulty sleeping or excessive sweating Eyes Eyes: Negative for loss of peripheral vision, transient loss of vision, blurry vision, double vision or tunnel vision ENT ENT: Negative for headache(s), dizziness, Nosebleed/epistaxis or balance problems Cardio Chest Pain: No Palpitations: No Edema: None Muscle aches with walking: None Resp Respiratory: Positive for SOB with activity and SOB at rest; negative for SOB orthopnea\SOB lying down, Cough or paroxysmal nocturnal dyspnea GI GI: Negative nausea, vomiting, heartburn or black,tarry stools : Negative for hematuria Musc Musc: Positive for muscle weakness (BLE weakness and pain); negative for muscle aches/ myalgia, joint pain or balance problems Skin Skin: Negative non-healing lesions, rash or unusual bruising Neuro Neuro: Positive for weakness; negative for dizziness, lightheadedness, near syncope, syncope, orthostatic symptoms, frequent falls, headache(s), blurry vision, double vision or lack of coordination Lukasz Hematologic/Lymphatic: Negative for easy bleeding or easy bruising Endo Endo: Negative for fatigue, excessive sweating or increased thirst/drinking Psych Psych: Negative for anxiety or depression Allergy Allergy/Immunology: Negative for hives, Negative for rash Cardiology Exam Const Appearance: cooperative, healthy appearing, no acute distress, well developed and well groomed Nutritional Appearance: average body habitus and well nourished Orientation: alert, awake and oriented x3 Head Head: normal to inspection, normocephalic and atraumatic Ears: hearing grossly normal bilaterally and external ears normal Nose: external nose normal, nares normal, nasal mucous membranes and turbinates normal, septum normal, no nasal discharge Face and Sinus: face symmetric Mouth: oral mucosae normal, tongue normal, oropharynx normal and moist mucous membranes Teeth and gingiva: dentition normal Throat: posterior oropharynx normal, tonsils normal and uvula midline Eyes General: appearance normal, both eyes and all related structures Eyelids: eyelids normal Conjunctivae: conjunctivae normal Pupils: PERRL, normal by confrontation and accommodation normal EOM: EOM intact bilaterally Neck Neck: normal visual inspection, trachea midline and no JVD JVD: +5 Carotids: normal carotid upstroke and bounding pulses Chest Chest inspection: normal inspection of the chest, symmetric chest movement and normal respiratory effort Auscultation: Bilateral: Clear to Auscultation Cardio Palpation: normal PMI Rate: regular rate Rhythm: regular rhythm Heart sounds: S1 normal, S2 normal and normal, physiologic split S2; negative rub, gallop or murmur GI GI: normal to inspection, soft, no hepatosplenomegaly and bowel sounds present Neuro General: alert, awake, oriented x3, gait normal, moves all extremities and no focal sensory deficit Skin Skin: no rashes or lesions noted Extremities Pulses: Normal: Right Femoral Pulse, Left Femoral Pulse, Right Dorsalis Pedis Pulse, Left Dorsalis Pedis Pulse, Right Posterior Tibial Pulse, Left Posterior Tibial Pulse, Right Radial Pulse, Left Radial Pulse Lower Extremity Edema: None: Bilateral Musculoskel Musculoskeletal: No joint tenderness Psych Psychological: normal affect Assessment & Plan 1. History of coronary artery bypass graft Z95.1 CABG x 3- KUMAR-LAD, SVG-RCA and SVG-Distal Cx 02/09/18 @ [facility] Dr Cortes Plan He does have a history of coronary artery bypass graft surgery. His recent stress test demonstrated evidence of inferior ischemia and he has been markedly short of breath. I suspect the above is an anginal equivalent. I would recommend that he undergo a left heart catheterization to assess the above. Depending on the findings further recommendations will be made. Orders Orders: 12 Lead EKG performed by [facility] Today Left Heart Cath w/Grafts 1 Day Basic Metabolic Profile (BMP) Today CBC W/Diff, Automated Today Chest PA and Lateral Today 2. Essential (primary) hypertension I10 Plan He does have a history of hypertension. His blood pressure appears to be under good control at the present time. No major changes will be made. 3. Pure hypercholesterolemia E78.00 Plan He does have a history of hyperlipidemia. He will remain on high intensity statin. Plan Detail Other Medications New: aspirin (Adult Low Dose Aspirin) 81 mg PO QDAY 90 tabs 3RF Changed: From: furosemide (Lasix) Take 40mg PO BID for three days and 40mg PO daily after three days 40 mg PO DAILY 30 tabs 11RF To: furosemide (Lasix) 40 mg PO DAILY 30 tabs 11RF Refilled: diltiazem CD (Cardizem CD) 180 mg PO QDAY 30 caps 11RF lisinopril 10 mg PO QDAY 30 tabs 11RF metoprolol succinate ER 25 mg PO DAILY 30 tabs 11RF Follow Up 4 Months (tk) Coding Level of Care Code Off vis,est,level 4 Diagnoses History of coronary artery bypass graft Z95.1 Essential (primary) hypertension I10 Pure hypercholesterolemia E78.00 ??Hyperlipidemia type: pure hypercholesterolemia Coding Level of Care Code Off vis,est,level 4 Diagnoses History of coronary artery bypass graft Z95.1 Essential (primary) hypertension I10 Pure hypercholesterolemia E78.00 ??Hyperlipidemia type: pure hypercholesterolemia Supplemental Info Supplemental Information Diagnostics Echocardiogram 06/07/19 Stress Test Nuclear Medicine 06/25/19 Stress Test 06/25/19 Pulmonary Pulmonary Function Test 04/18/19 Pulmonary Exercise Test 04/13/19 06/28/19 0935 <Electronically signed by Dalton Romero> Date _ Dalton Torres MD
--- NOTE | 2019-06-28 10:20 | RAD_ITS ---
STUDY: X-RAY CHEST REASON FOR EXAM: Male, 69 years old. Increasing shortness of breath. Abnormal stress test. TECHNIQUE: PA and lateral views of the chest. COMPARISON: Comparison is made with prior study dated November 22, 2017. FINDINGS: Stable mild increased linear markings at the lung bases suggestive of scarring. There is no demonstrated pleural abnormality. Sternal cerclage wires and vascular clips are present from a prior sternotomy and coronary artery bypass graft procedure (CABG). Normal mediastinum and john. Normal visualized pulmonary arteries. There is atherosclerotic tortuosity of the aortic arch and descending thoracic aorta. Normal visualized thoracic spine. Normal visualized ribs, clavicles, and shoulders. There is no demonstrated abnormality of the visualized soft tissue structures of the upper abdomen. RAD/Chest PA and Lateral IMPRESSION: Stable mild increased markings at the lung bases suggestive of a linear scarring. Electronically Signed: Mckinley Cox, at 10:46 EDT , Service support ,
[2019-06-28 10:27] VITALS: BMI 34.1
[2019-06-28 10:55] LABS: Absolute Lymphocyte Count 2.41 X10^3/uL (0.83-4.51); Absolute Neutrophil Count 4.1 X10^3/uL (2.0-7.7); Basophil# 0.06 X10^3/uL; Basophil% 0.8 % (0-1); Eosinophil# 0.33 X10^3/uL; Eosinophils% 4.2 % (0-5); Hematocrit 43.5 % (40-54); Hemoglobin 15.1 g/dL (13.0-16.5); Lymphocyte # 2.41 X10^3/ul (4.0); Lymphocyte % 30.9 % (19-41); Mean Corp Hgb Conc 34.7 g/dL (32-36); Mean Corpuscular Hgb 32.3 pg (27.0-32.0); Mean Corpuscular Volume 93.1 fL (80-94); Mean Platelet Vol. 9.4 fl (6.2-12.0); Monocyte% 11.5 % (0-10); NRBC Flagged by Analyzer 0 % (0-5); Neutrophil # 4.07 X10^3/uL (2.7-7.7); Neutrophil % 52.1 % (47-70); Platelet Count 218 K/mm3 (150-450); RBC Distribution Width CV 12.2 % (11.6-14.6); RBC Distribution Width SD 41.7 fl (35.1-43.9); Red Blood Count 4.67 M/mm3 (4.6-6.2); White Blood Count 7.8 K/mm3 (4.4-11.0)
[2019-06-28 11:00] LABS: Anion Gap 8 (5-15); BUN 26 mg/dL (7-18); BUN/Creat Ratio 16.1 RATIO (10-20); Calcium,Total 9.3 mg/dL (8.5-10.1); Chloride 108 mmol/L (98-107); Creatinine, Serum 1.61 mg/dL (0.70-1.30); EST Glomerular Filtration Rate 45 mL/min (>60); Est Glom Filt Rate - Afr Amer 55 mL/min (>60); Glucose 92 mg/dL (74-106); Potassium 3.7 mmol/L (3.5-5.1); Sodium Level 141 mmol/L (136-145)
--- NOTE | 2019-06-29 13:07 | CL.D_ITS ---
Patient Name: JEFFREY IGLESIAS Study Date: 06/28/2019 Performing: Dalton Torres MD Ht: 71 inches 180 cm : 1950 Wt: 245 lbs 111 kg Age: 69 Gender: male BSA: 2.29 PROCEDURE(S) PERFORMED XI98-CZK/COR/CABG CLINICAL PROFILE AND INDICATIONS Indications: Suspected CAD Heart Failure: None Stress/Imaging Date: 06/18/2019 CAD Presentations: Symptom unlikely to be ischemic. CONCLUSIONS Patent bypass grafts and pilot point LAD RECOMMENDATIONS Medical therapy DESCRIPTION OF PROCEDURE The patient arrived to the procedure lab. The risks and benefits of the procedure as well as a full d escription of our services here and current unavailability of surgical backup were fully explained to the patient and/or their significant other prior to the catheterization. The Timeout was completed, verifying the correct patient and procedure. The patient's procedural site was prepped and draped in the usual fashion. Local anesthetic was given subcutaneously to right groin region with Lidocaine 2%. Using a modified Seldinger technique, arterial access was obtained via the right femoral artery, a 5 Fr sheath was inserted. Left Coronary Artery selective angiography was performed in multiple views u sing a 5 Fr. JL4 catheter. Right Coronary Artery selective angiography was then performed in multiple views using a 5 Fr. 3DRC (Adam) catheter. Saphenous Vein graft to the Circumflex selective angio graphy was performed in multiple views using a 5 Fr. AR MOD catheter. Saphenous Vein graft to the RCA selective angiography was performed in multiple views using a 5 Fr. AR MOD catheter. Left internal mammary artery graft to the LAD selective angiography was performed in multiple views using a 5 Fr. IM catheter.Contrast was injected through the sheath and the Right Iliac and Femoral artery w ere assessed for possible closure device.The arterial sheath was pulled and a Mynx closure device was deployed for hemostasis CORONARY ANGIOGRAPHY DOMINANCE: Right Dominant LEFT HEART ASSESSMENT Left Ventricular Ejection Fraction: by Echo 55 % Normal Left Ventricular systolic function LEFT MAIN: Mild calcification, 30 % Stenosis LEFT ANTERIOR DESCENDING ARTERY: Moderate luminal irregularities up to 50% CIRCUMFLEX ARTERY: Mild luminal irregularities less than 30% RIGHT CORONARY ARTERY: is occluded GRAFTS: Saphenous Vein graft to the 2nd OM is patent KUMAR graft to the LAD is non functional Saphenous Vein graft to the RPDA is patent COMPLICATIONS No Complications PROCEDURE MEDICATIONS Versed 1 mg IV Versed 1 mg IV Oxygen: 2 L/min via nasal cannula SUMMARY OF HEMODYNAMIC DATA Time AIR REST ECG 11:30:13 AO 109/65 (83) SA 12:13:04 Signed By Dalton Torres MD On 06/29/2019 13:07:09 Dalton Torres MD
== END 2019-06-28 15:30 | disposition home or self-care (01) ==
PROVIDERS: Family Provider Family Medicine; PCP Family Medicine; Referring Provider Internal Medicine Cardiovascular Disease; Visit Provider Internal Medicine Cardiovascular Disease
DX: I25.10 Atherosclerotic heart disease of native coronary artery without angina pectoris (principal); I10 Essential (primary) hypertension; E78.00 Pure hypercholesterolemia, unspecified; Z95.1 Presence of aortocoronary bypass graft; I25.5 Ischemic cardiomyopathy; I48.0 Paroxysmal atrial fibrillation; E66.9 Obesity, unspecified; J44.9 Chronic obstructive pulmonary disease, unspecified; F32.9 Major depressive disorder, single episode, unspecified; I25.2 Old myocardial infarction; M19.90 Unspecified osteoarthritis, unspecified site; Z68.34 Body mass index [BMI] 34.0-34.9, adult; Z79.82 Long term (current) use of aspirin; Z79.899 Other long term (current) drug therapy; Z87.891 Personal history of nicotine dependence
CPT/HCPCS: 36415; 71046; 80048; 85025; 93455; 99152; 99153; C1760; J7040; Q9967; C1769

== ENCOUNTER → 2020-01-08 10:24 | Outpatient (CLI) | payer MEDICARE, OTHER, SELFPAY ==
[2020-01-08 08:40] VITALS: BMI 35.4
[2020-01-08 11:59] LABS: AST(SGOT) 14 U/L (15-37); Alanine Aminotransfer ALT/SGPT 27 U/L (16-61); Albumin, Serum 3.5 g/dL (3.2-5.0); Alkaline Phosphatase 83 U/L (45-117); Bilirubin, Direct 0.13 mg/dL (0.00-0.30); Cholesterol 140 mg/dL (200); Globulin 4.2 g/dL (2.2-4.2); High Density Lipoprotein 62 mg/dL; Protein, Total 7.7 g/dL (6.4-8.2); Triglycerides 99 mg/dL; Very Low Density Lipoprotein 20 mg/dL (5-40)
[2020-01-08 12:19] LABS: Anion Gap 4 (5-15); BUN 31 mg/dL (7-18); BUN/Creat Ratio 23.3 RATIO (10-20); Calcium,Total 9.1 mg/dL (8.5-10.1); Chloride 105 mmol/L (98-107); Creatinine, Serum 1.33 mg/dL (0.70-1.30); EST Glomerular Filtration Rate 56 mL/min (>60); Est Glom Filt Rate - Afr Amer 68 mL/min (>60); Glucose 92 mg/dL (74-106); Potassium 4.3 mmol/L (3.5-5.1); Sodium Level 137 mmol/L (136-145)
== END ==
PROVIDERS: Internal Medicine Cardiovascular Disease; PCP Family Medicine; Referring Provider Physician Assistant Medical; Visit Provider Physician Assistant Medical
DX: I10 Essential (primary) hypertension (principal); I25.5 Ischemic cardiomyopathy; I25.10 Atherosclerotic heart disease of native coronary artery without angina pectoris; E78.5 Hyperlipidemia, unspecified; E78.00 Pure hypercholesterolemia, unspecified; R06.02 Shortness of breath
CPT/HCPCS: 36415; 80048; 80061; 80076

== ENCOUNTER → 2020-06-05 13:48 | Outpatient (CLI) | payer MEDICARE, OTHER, SELFPAY ==
[2020-06-05 13:10] VITALS: BMI 35.4
[2020-06-05 15:16] LABS: Anion Gap 6 (5-15); BUN 28 mg/dL (7-18); BUN/Creat Ratio 18.9 RATIO (10-20); Calcium,Total 8.8 mg/dL (8.5-10.1); Chloride 105 mmol/L (98-107); Creatinine, Serum 1.48 mg/dL (0.70-1.30); EST Glomerular Filtration Rate 50 mL/min (>60); Est Glom Filt Rate - Afr Amer 60 mL/min (>60); Glucose 93 mg/dL (74-106); Sodium Level 139 mmol/L (136-145)
== END ==
PROVIDERS: PCP Family Medicine; Referring Provider Family Medicine; Visit Provider Family Medicine
DX: N18.2 Chronic kidney disease, stage 2 (mild) (principal)
CPT/HCPCS: 36415; 80048

== ENCOUNTER → 2021-11-18 14:28 | Outpatient (CLI) | payer MEDICARE, OTHER, SELFPAY ==
[2021-11-18 16:37] LABS: AST(SGOT) 14 U/L (15-37); Alanine Aminotransfer ALT/SGPT 34 U/L (16-61); Albumin, Serum 3.4 g/dL (3.2-5.0); Alkaline Phosphatase 91 U/L (45-117); Bilirubin, Direct 0.18 mg/dL (0.00-0.30); Cholesterol 140 mg/dL (200); Globulin 4.6 g/dL (2.2-4.2); High Density Lipoprotein 60 mg/dL; Triglycerides 115 mg/dL; Very Low Density Lipoprotein 23 mg/dL (5-40)
== END ==
PROVIDERS: PCP Family Medicine; Referring Provider Physician Assistant Medical; Visit Provider Physician Assistant Medical
DX: E78.00 Pure hypercholesterolemia, unspecified (principal); I25.10 Atherosclerotic heart disease of native coronary artery without angina pectoris; I10 Essential (primary) hypertension; I25.5 Ischemic cardiomyopathy
CPT/HCPCS: 36415; 80061; 80076

== ENCOUNTER → 2023-08-04 | Outpatient (CLI) | payer MEDICARE, OTHER, SELFPAY ==
[2023-08-04 17:11] LABS: ALB/GLOB Ratio 0.6 RATIO (0.9-2.4); AST(SGOT) 13 U/L (15-37); Alanine Aminotransfer ALT/SGPT 26 U/L (16-61); Albumin, Serum 3.2 g/dL (3.2-5.0); Alkaline Phosphatase 91 U/L (45-117); Anion Gap 6 (5-15); BUN 25 mg/dL (7-18); BUN/Creat Ratio 17.6 RATIO (10-20); Chloride 111 mmol/L (98-107); Cholesterol 110 mg/dL (200); Creatinine, Serum 1.42 mg/dL (0.70-1.30); EST Glomerular Filtration Rate 52 mL/min (>60); Est Glom Filt Rate - Afr Amer 63 mL/min (>60); Globulin 5.4 g/dL (2.2-4.2); Glucose 107 mg/dL (74-106); High Density Lipoprotein 58 mg/dL; Potassium 4.1 mmol/L (3.5-5.1); Protein, Total 8.6 g/dL (6.4-8.2); Sodium Level 141 mmol/L (136-145); Triglycerides 115 mg/dL; Very Low Density Lipoprotein 23 mg/dL (5-40)
== END | disposition home or self-care (01) ==
LOC: BIMLAB 16:11
PROVIDERS: PCP Family Medicine; Visit Provider Family Medicine
DX: I25.10 Atherosclerotic heart disease of native coronary artery without angina pectoris (principal); E78.5 Hyperlipidemia, unspecified
CPT/HCPCS: 36415; 80053; 80061

== ENCOUNTER → 2024-01-16 | Outpatient (CLI) | payer MEDICARE, OTHER, SELFPAY ==
--- NOTE | 2024-01-16 06:29 | ECHOD_ITS ---
Reason For Study: BECERRIL Procedure This was a 2D Doppler, Color Flow transthoracic echocardiogram. Exam performed in department. Left Ventricle Normal LV size. Mild concentric left ventricular hypertrophy. The left ventricular ejection fraction is 45 %. Mild to moderate segmental systolic dysfunction (see wall motion). Stage 1 diastolic dysfunction. Infero-Basal: Akinetic. Right Ventricle Normal RV size. Normal systolic function. Atria Normal left atrium. Normal right atrium. Mitral Valve Normal mitral valve. Tricuspid Valve Normal tricuspid valve. Mild (1+) tricuspid valve insufficiency. Pulmonary artery systolic pressure is 30 mmHg. Aortic Valve Normal aortic valve. Pulmonic Valve Normal pulmonic valve. Great Vessels Normal aortic root. The pulmonary artery is normal size. Normal inferior vena cava. Pericardium/Pleural No pericardial effusion. MMode/2D Measurements & Calculations LVIDd: 4.9 cm IVSd: 1.3 cm Ao root diam: 3.4 cm LVIDs: 3.9 cm LVPWd: 1.2 cm RVDd: 3.4 cm FS: 20.5 % LAV(MOD-bp): 37.2 ml LVAd ap4: 30.8 cm2 SV(MOD-sp4): 40.5 ml LAV(MOD-bp) Indexed: 16.2 ml/m2 LVLd ap4: 8.2 cm LAV(MOD-sp2): 38.4 ml EDV(MOD-sp4): 99.4 ml LAV(MOD-sp4): 36.7 ml EDV(sp4-el): 98.2 ml LVAs ap4: 21.9 cm2 LVLs ap4: 7.3 cm ESV(MOD-sp4): 58.9 ml ESV(sp4-el): 55.7 ml EF(MOD-sp4): 40.7 % EF(sp4-el): 43.3 % SV(sp4-el): 42.5 ml LA A4 area: 15.7 cm2 LA dimension(2D): 4.2 cm RA A4 area: 12.6 cm2 TAPSE: 1.2 cm Time Measurements MV dec time: 0.21 sec Doppler Measurements & Calculations MV E max octavio: 59.9 cm/sec Lat Peak E' Octavio: 12.4 cm/sec Med Peak E' Octavio: 6.0 cm/sec MV A max octavio: 75.9 cm/sec E/E' lat: 4.8 E/E' med: 9.9 MV E/A: 0.79 Ao V2 max: 129.8 cm/sec LV V1 max: 82.1 cm/sec PA V2 max: 133.1 cm/sec Ao max P.7 mmHg LV V1 max P.7 mmHg TR max octavio: 259.7 cm/sec TR max P.0 mmHg ECHO/Echo Complete Interpretation Summary Normal LV size. The left ventricular ejection fraction is 45 %. Mild to moderate segmental systolic dysfunction (see wall motion). Stage 1 diastolic dysfunction. Mild concentric left ventricular hypertrophy. Pulmonary artery systolic pressure is 30 mmHg. Ordering Physician: Kiersten Chun/Dalton Torres Referring Physician: PAMELA MAJOR Performed By: Majo Avila RDCS
--- OUTSIDE RECORDS SUMMARY | 2024-01-16 06:35 | XMS RPT_ITS | CCD ---
Author Name Unknown Address [address] [place] [address] [employer] [address] [place] [id number] Organization [facility] Care Team Providers Care Beef Splitter Name Role Phone CORY MARTÍNEZ Unavailable UnavailTEDDY Barney Attending Unavailable PAMELA DE LA TORRE Primary Care Unavailable Allergies Allergy Classification Reported Allergen(s) Allergy Type Date of Onset Reaction(s) Facility (1 source) Isosorbide; Translations: [ISOSORBIDE] Drug Allergy 9 [facility] Repository (1 source) Propofol; Translations: [PROPOFOL] Drug Allergy 9 [facility] (1 source) BEE STING; Translations: [BEE STING] Propensity to adverse reactions (disorder) 8 [facility] Problems Problem Classification Problem Date Documented Da te Episodic/Chronic External Injury - Fall (1 source) Unspecified fall, initial encounter; Translations: [Unspecified fall, initial encounter] Onset: 04-22-2018 Open wounds of head; neck; and trunk (1 source) Laceration without foreign body of other part of head, initial encounter; Translations: [Laceration without foreign body of other part of head, initial encounter] Onset: 04-22-2018 Episodic Other circulatory disease (1 source) Hypotension, unspecified; Translations: [Hypotension, unspecified] Onset: 04-22-2018 Episodic Other injuries and conditions due to external causes (1 source) Other injury of unspecified body region, initial encounter; Translations: [Contusion of skin] Onset: 08-07-2023 Episodic Unclassified (1 source) Other injury of unspecified body region, initial encounter; Translations: [Other injury of unspecified body region, initial encounter] Onset: 04-22-2018 Results Test Name Value Interpretation Reference Range Facil ity Encounters Encounter Date Encounter Type Care Provider Facility Start: 08-07-2023 End: 09-10-2023 Emergency department patient visit TEDDY GOTTLIEB Facility:[facility] Start: 04-22-2018 End: 04-22-2018 Emergency department patient visit CORY MILLAN [facility] Procedures Date Procedure Procedure Detail Performing Clinician Start: 09-14-2021 Antibody screen Payers Date Payer Category Payer Medicare [id number] 2014 Medicare [id number] Clinical Notes 07-23-2021 to 10-28-2021 Note Date & Type Note Facility 10-28-2021 Note HNO ID: [id number] Author: Jeffrey Montiel MD Service: ? Author Type: Physician Type: Progress Notes Filed: 10/28/2021 12:42 PM Note Text: HPI: Jeffrey Cullen JrPatrice is seen in f/u for his tracheal stenosis. He has been doing quite well, no issues with swallowing, no hoarseness, no shortness of breath, no pain, no purulence. On exam, he has an excellent voice. No cough. No stridor with deep inspiration. Incision is nicely healed. Via the nasal cavity, flexible endoscopy was performed. Good vocal cord motion, widely patent trachea, minimal healing ridge in the trachea always, 90% open. IMPRESSION: Widely patent trachea PLAN: I gave him the green light to have full activity, although I did caution him about shotgun usage possibly creating too much force and pressure around the trachea. Short of that, he will do physical activity, and there is no precautions for intubation. Jeffrey Montiel MD [facility] 09-15-2021 Note HNO ID: [id number] Author: Elan Bear RN Service: Care Management Author Type: Registered Nurse Type: Care Mgt Progress Note Filed: 09/15/2021 9:05 AM Note Text: CARE MANAGEMENT DISCHARGE NOTE SERVICE DATE: 09/15/2021 SERVICE TIME: 8:35 AM LOS: 4 days Admission Date: 09/11/2021 DISCHARGE ARRANGEMENT (list agency and phone number) Discharge Arrangement: Home CAREGIVER ASSESSMENT: Caregiver is ready, willing and able to meet the patient's needs as recommended by the inter-professional team:: No (Pt lives alone) Does the patient have an acute stroke diagnosis, or has the patient had a stroke during this admission?: No Patient's transition needs and plan for meeting these needs: Home HANDOFF COMMUNICATION: Handoff to: Primary Care Physician Primary Care Physician Name/Phone: Pamela De La Torre via SOC TRANSPORTATION ARRANGEMENTS: Transportation Arrangements: Car ADDITIONAL CONTACT RESOURCES: Pt medically ready for discharge. Per primary team and therapy notes, pt qualifies for outpatient PT/OT and will not need home care. Pt will be transported home by friend around 2pm via car. SIGNATURE: Elan Bear RN PATIENT NAME: Jeffrey Cullen Jr. DATE: September 15, 2021 TIME: 8:35 AM PAGER/CONTACT #: [phone] [facility] 09-15-2021 Note HNO ID: [id number] Author: Gwen Rios MD Service: Otolaryngology Author Type: Resident Type: Progress Notes Filed: 09/15/2021 7:52 AM Note Text: [facility] - HEAD AND NECK SURGERY PROGRESS NOTE Admission Date: 09/11/2021 Interval HPI: No acute events overnight. Weaned off O2. OBJECTIVE: Vitals: 09/14/21 1608 09/14/21 1944 09/14/21 2332 09/15/21 0328 BP: 142/69 137/63 128/73 124/72 Pulse: 67 (!) 59 73 69 Resp: 18 16 18 Temp: 36.4 ?C (97.5 ?F) 36.4 ?C (97.5 ?F) 36.6 ?C (97.9 ?F) 36.5 ?C (97.7 ?F) TempSrc: Oral Oral Oral SpO2: 94% 94% 94% 91% Physical Examination: General: No acute distress Neuro: AAANDOx3 Airway: No stridor, stertor, voice strong Neck: soft, no crepitus, incision c/d/i, no signs of hematoma or seroma Drains: SEBASTIÁN x 1 in left neck serosang, holding suction, removed ASSESSMENT/PLAN: Jeffrey Cullen Jr. is a 71 year old male 4 Days Post-Op (09/11/2021) from tracheal resection and primary anastomosis. 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 ([facility]) HLD (hyperlipidemia) HTN (hypertension) Subglottic stenosis Obesity, Class I, BMI 30-34.9 Acute postoperative respiratory insufficiency - d/c home today - Wound: Clean incision with 1/2 peroxide and 1/2 water BID; followed by Bacitracin to incisions BID until POD7 then transition to Aquaphor - Abx: Unasyn - Anticoagulation: SQH - FEN: fulls - Dispo: G81 SDU Active Hospital Problems as of 09/15/2021 Noted - Resolved [facility] Hospital NSVT (nonsustained ventricular tachycardia) ([facility]) 02/08/2018 - Present Yes Current Assessment AND Plan Assessment: stable PLAN: on Tele no issues CAD (coronary artery disease) Unknown - Present Yes Current Assessment AND Plan Assessment: history OHS PLAN: continue pre op meds, monitor on Tele S/P CABG x 3 01/30/2019 - Present Yes Current Assessment AND Plan Assessment: stable PLAN: cleared for OR, close monitoring post op 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 ([facility]) 09/04/2021 - Present Yes Current Assessment AND Plan Assessment: s/p tracheal resection PLAN: airway monitoring, extubated in SDU, drain pull at d/c HLD (hyperlipidemia) Unknown - Present Yes Current Assessment AND Plan Assessment: stable PLAN: continue meds HTN (hypertension) Unknown - Present Yes Current Assessment AND Plan Assessment: Controlled PLAN: resume pre op meds,monitor response Subglottic stenosis 09/11/2021 - Present Yes Current Assessment AND Plan Assessment: s/p tracheal revision PLAN:airway monitoring incision and drain care Obesity, Class I, BMI 30-34.9 09/11/2021 - Present Current Assessment AND Plan Assessment: pre op issue PLAN: pcp follow up, Lifestyle modification Acute postoperative respiratory insufficiency 09/11/2021 - Present Unknown Current Assessment AND Plan Assessment: resolved PLAN: extubated transferred in SDU Plan of care discussed with: Provider, RN, Patient. 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 Last discharge within 30 days: No Advance Directive: Current Advance Directive: None Threading Machine Operator Attempted to Assist with AD Completion: Yes Action: Patient Unwilling Health LiteracyHow often do you need to have someone help you when you read instructions, pamphlets, or other written material from your doctor or pharmacy? : 3 - Sometimes How confident are you filling out medical forms by yourself?: 3 - Somewhat If Patient scores > 3 on either question, the following interventions were put into place:: Use of plain language and active listening with Patient and family;Use concrete and specific phrases, avoid medical jargon;Forms of communication used with patient and family;Sit with Patient;Gave Patient the opportunity to ask questions Baseline Mental Status Prior to this Illness what was the patient's Baseline Mental Status?: Alert AND Oriented Prior to this illness, has anyone described the patient having any of the following behaviors?: Not Applicable Relationship of the informant to the patient:: Self Name of Informant: : Kaity Sumit Functional Status: Needs Assistance Does Patient Currently Receive Any Community Services or Home Care?: None Equipment Prior to Admission: Walker Has the Patient Been in a Halfway Facility in the Past 30 days?: No SOCIAL: Living Arrangements: Home Lives With: Alone Financial Resources: Disabled Primary Contact: Extended Emergency Contact Information Primary Emergency Contact: Kaity Arana Mobile Relation: Relative Secondary Emergency Contact: Claudine Quijano Address: [facility] Relation: Relative Supportive Patient Contact:: Yes Contact Resources: Family Family Name/Phone: Claudine Quijano [phone] Caregiver AssessmentCaregiver is ready, willing and able to meet the patient's needs as recommended by the inter-professional team:: No (Pt lives alone) Does the patient have an acute stroke diagnosis, or has the patient had a stroke during this admission?: No Patient's transition needs and plan for meeting these needs: Home with Home care Patient's perception of need for this admission: Tracheal Resection and primary anastomosis Medication Adherance I am convinced of the importance of my prescription medication: 0 - Agree Completely I worry that my prescription medication will do more harm than good to me : 0 - Disagree Completely I feel financially burdened by my [id number] expenses for my prescription medication:: 0 - Agree Somewhat Risk Score: 0 Patient is categorized as: Low risk < 2 Are you interested in bedside delivery of your medications? No Is Patient Psychosocially Complex?: No ASSESSMENT AND PLAN: Medical Needs: Medical Needs: Two or more chronic diseases Psychosocial Needs: Psychosocial Needs: None FREEDOM OF CHOICE EXPLAINED: [place] of Choice Given: Yes Level of Care Discussed: Home Care Financial Disclosure Provided: Yes Financial Disclosure Comments: [facility] Connected Care Provider List: Home Care Provider list within the patient's requested geographic area shared with the patient/family: Yes within: 1 mile of [facility] code: 37169 Quality and resource use metrics shared with the patient that are relevant to the patient's goals of care and treatment preferences:: Yes Metrics: Potentially Preventable 30-day Post Discharge Readmission Rates;Incidence of Major Falls POTENTIAL TRANSITION PLANS Home Care Per chart review pt is a 71 year old male 3 Days Post-Op (09/11/2021) from tracheal resection and primary anastomosis. CM met with pt at bedside. CM introduced self and explained CM role. Pt lives alone and is disabled. Prior to admission, pt required the use of a walker to assist with mobility. Pt will be transported home via car by friend when ready for discharge. CM discussed home care with pt. Pt wanted to go to SNF. CM explained that he does not qualify for SNF placement. Pt had no preference for home care agency. Pt accepted by [facility] for PT/OT. Pt has wheeled walker at home. Pt stated he may have difficulty obtaining ridedemetrio (more content not included)... [facility] 09-14-2021 Note HNO ID: [id number] Author: Shaila Covarrubias APRN.PUBLIC HEALTH TECHNOLOGIST Service: Otolaryngology Author Type: Nurse Practitioner Type: Progress Notes Filed: 09/14/2021 11:25 AM Note Text: [facility] - HEAD AND NECK SURGERY PROGRESS NOTE Admission Date: 09/11/2021 Interval HPI: No acute events overnight. Voice stable. OBJECTIVE: Vitals: 09/13/21 1602 09/13/21201409/13/21 2303 09/14/21 0324 BP: 137/66 136/80 138/75 143/78 Pulse: (!) 53 (!) 59 90 78 Resp: 18 16 16 Temp: 36.4 ?C (97.5 ?F) 36.4 ?C (97.5 ?F) 36.4 ?C (97.5 ?F) 36.9 ?C (98.4 ?F) TempSrc: Oral Oral Oral Axillary SpO2: 91% 94% 94% 95% Physical Examination: General: No acute distress Neuro: AAANDOx3 Airway: No stridor, stertor, voice strong Neck: soft, no crepitus, incision c/d/i, no signs of hematoma or seroma Drains: SEBASTIÁN x 1 in left neck serosang, holding suction ASSESSMENT/PLAN: Jeffrey Cullen is a 71 year old male 3 Days Post-Op (09/11/2021) from tracheal resection and primary anastomosis. 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 (HCC) HLD (hyperlipidemia) HTN (hypertension) Subglottic stenosis Obesity, Class I, BMI 30-34.9 Acute postoperative respiratory insufficiency - skilled for home PT but pt would like to go to SNF - wean O2 - Wound: Clean incision with 1/2 peroxide and 1/2 water BID; followed by Bacitracin to incisions BID until POD7 then transition to Aquaphor - Abx: Unasyn - Anticoagulation: SQH - FEN: fulls - Drains: Strip drains q4h, record output q8h; Please page [phone] immediately if drains lose suction - Dispo: G81 SDU Active Hospital Problems as of 09/14/2021 Noted - Resolved POA Active Problems NSVT (nonsustained ventricular tachycardia) (HCC) 02/08/2018 - Present Yes Current Assessment AND Plan Assessment: stable PLAN: on Tele no issues CAD (coronary artery disease) Unknown - Present Yes Current Assessment AND Plan Assessment: history OHS PLAN: continue pre op meds, monitor on Tele S/P CABG x 3 01/30/2019 - Present Yes Current Assessment AND Plan Assessment: stable PLAN: cleared for OR, close monitoring post op 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 (HCC) 09/04/2021 - Present Yes Current Assessment AND Plan Assessment: s/p tracheal resection PLAN: airway monitoring, extubated in SDU, drain pull at d/c HLD (hyperlipidemia) Unknown - Present Yes Current Assessment AND Plan Assessment: stable PLAN: continue meds HTN (hypertension) Unknown - Present Yes Current Assessment AND Plan Assessment: Controlled PLAN: resume pre op meds,monitor response Subglottic stenosis 09/11/2021 - Present Yes Current Assessment AND Plan Assessment: s/p tracheal revision PLAN:airway monitoring incision and drain care Obesity, Class I, BMI 30-34.9 09/11/2021 - Present Current Assessment AND Plan Assessment: pre op issue PLAN: pcp follow up, Lifestyle modification Acute postoperative respiratory insufficiency 09/11/2021 - Present Unknown Current Assessment AND Plan Assessment: resolved PLAN: extubated transferred in SDU Plan of care discussed with: Provider, RN, Patient. Gwen Rios MD [facility] PGY-2 09/14/2021 6:27 AM [phone] Please page [phone] after 5pm and on weekends [facility] 09-13-2021 Note HNO ID: [id number] Author: Charlotte Jaffe MD Service: Otolaryngology Author Type: Resident Type: Progress Notes Filed: 09/13/2021 8:27 AM Note Text: [facility] - HEAD AND NECK SURGERY PROGRESS NOTE Admission Date: 09/11/2021 Interval HPI: No acute events overnight. Had some pain, but was reportedly refusing narcotic pain medication. Breathing well on RA. OBJECTIVE: Vitals: 09/12/21 2324 09/13/21 0251 09/13/21 0337 09/13/21 0802 BP: 134/61 123/65 133/66 124/64 Pulse: 74 65 73 (!) 59 Resp: 18 20 18 18 Temp: 36.3 ?C (97.3 ?F) 36.4 ?C (97.5 ?F) 36.5 ?C (97.7 ?F) TempSrc: Oral Oral Oral SpO2: 90% 93% 93% 95% Physical Examination: General: No acute distress, sedated and intubated Neuro: AAANDOx3, NAD Airway: No stridor, stertor Neck: soft, no crepitus, incision c/d/i, no signs of hematoma or seroma Drains: SEBASTIÁN x 2 in neck serosang, holding suction ASSESSMENT/PLAN: Jeffrey Cullen Jr. is a 71 year old male POD 2 (09/11/2021) from tracheal resection and primary anastomosis. 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 Charlotte Jaffe MD Otolaryngology - Head and Neck Surgery, PGY-2 September 13, 2021 Pager: [phone] [place] [phone] after 5 PM and on weekends [facility] 09-12-2021 Note HNO ID: [id number] Author: Ho Flores MD Service: Otolaryngology Author Type: Resident Type: Progress Notes Filed: 09/12/2021 7:10 AM Note Text: [facility] - HEAD AND NECK SURGERY PROGRESS NOTE Admission Date: 09/11/2021 Interval HPI: 5 beats of non-sustained VTACH. No other acute events remained intubated overnight. Plans for extubation this AM with ENT at bedside at 10:30AM. OBJECTIVE: Vitals: 09/12/21 0300 09/12/21 0336 09/12/21 0400 09/12/21 0500 BP: 115/59 136/68 117/65 Pulse: (!) 49 (!) 48 (!) 52 (!) 50 Resp: 11 Temp: 36.4 ?C (97.5 ?F) TempSrc: Oral SpO2: 98% 97% 98% 98% Physical Examination: General: No acute distress, sedated and intubated Neuro: Sedated Airway: Intubated Neck: soft, no crepitus, incision c/d/i, no signs of hematoma or seroma Drains: SEBASTIÁN x 2 in neck serosang, holding suction ASSESSMENT/PLAN: Jeffrey Cullen Jr. is a 71 year old male POD 1 (09/11/2021) from tracheal resection and primary anastomosis. 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 Ho Flores MD Otolaryngology, Head and Neck Surgery Pager [phone] Service Pager [phone] - please page after 5pm and on weekends [facility] 09-12-2021 Note HNO ID: [id number] Author: Karina Garcia MD Service: Critical Care Author Type: Anesthesiologist Type: Progress Notes Filed: 09/12/2021 2:53 AM Note Text: SURGICAL INTENSIVE CARE UNIT PROGRESS NOTE BRIEF HPI: 71 yoM w/ a PMHx signifcant for HLD, HTN, ischemic cardiomyopathy, CVA, and CAD s/p CABGx3 c/b metabolic encephalopathy and prolonged respiratory failure s/p tracheostomy (01/2018). Pt was seen by ENT after reporting worsening of SOB with activity thought to be related to a previous tracheostomy. A tracheoscopy was performed in office showing moderate restriction of the 2nd tracheal ring with complete collapse with increased intrathoracic pressure. On 09/11/21 he underwent a scheduled tracheal resection of rings 2-4 and primary anastomosis. Intra-op course was largely unremarkable and pt is being admitted to SICU intubated post-op support and eventual weaning from mechanical ventilation. 09/12: No acute events. Patient slowly weaning to extubate. Potential extuabtion today with ENT. Subjective INTERVAL EVENTS: Improved Objective MEDICATIONS: Current medications and allergies reviewed. Recommended/planned medication changes discussed in detail in the A/P section below. Please refer to [facility] for list of inpatient medications. VITAL SIGNS: BP 112/63 Pulse (!) 55 Temp 36 ?C (96.8 ?F) (Temporal) Resp 16 SpO2 98% Current Weight: Admission Weight: PHYSICAL EXAM: General: Sedated Skin: Skin color, texture, turgor normal. No rashes or lesions. Eyes: PERRLA, Lungs: Lungs clear to auscultation, Good diaphragmatic excursion Cardiac: Normal S1 and S2; no rubs, murmurs, or gallops Abdomen: Abdomen soft, non-tender, BS normal, No masses or organomegaly Neuro: Exam deferred Pulses: 2+ radial, 2+ carotid Wound: Not applicable DATA: Diagnostic tests reviewed for today's visit: Most recent labs and imaging results. ICU Checklist Last Documented/Reviewed time: 09/12/2021 12:50 AM ------ A= Assess, Prevent, Manage Pain Pain adequately controlled?: Yes C= Choice of Sedation and Analgesia RASS at Goal?: Yes B= Both Spontaneous Awakening and Breathing Trials Ventilator: Present Spontaneous Awakening?: Contraindicated - specify Spontaneous Breathing?: Yes Head of Bed > 30 degrees?: Yes Mouth Care?: Yes D= Delirium: Assess, Prevent and Manage ICU Delirium Status: Neuromuscular Blockade - unable to assess Restraint Status: Present, will maintain Restraint Maintain Reason: Maintain safety of patient E= Early Mobility/Excercise ICU Mobility: ICU Mobility-Pt Has Been Out of Bed: PT Consult - Specify F= Family Engagement and Empowerment ICU plan of care visit at bedside in last 24 hours: Yes, ICU Team only ICU Disposition: ICU Disposition- Is Patient Clinically Ready to Transfer to [facility] or SDU?: No Discharge Planning: To be determined Prevention: Line Status: Arterial line Arterial Line Status: Reason to maintain Arterial Line Reason to Maintain: Frequent ABG's High Status: Present, will maintain High Status Details: Accurate measurement of urine output Pressure Injury Status: None GI/Stress Ulcer Prophylaxis: H2 blockers Nutrition is at Goal: NPO VTE Prophylaxis: Chemoprophylaxis: Heparin SQ Mechanical Prophylaxis: Knee high SCD Assessment AND Plan Cardiovascular HTN (hypertension)? (present on admission) Assessment: takes lisinopril, metoprolol, lasix PLAN: -Hold home meds until postextubation HLD (hyperlipidemia)? (present on admission) PLAN: -Continue home atorvastatin CAD (coronary artery disease)? (present on admission) Assessment: S/p CABG x 3 (2018). Following with Dr. Torres. Takes Aspirin 81mg and atorvastatin 40mg, PLAN: -Continue aspirin -Continue atorvastatin NSVT (nonsustained ventricular tachycardia) (HCC)? (present on admission) Assessment: on diltiazem PLAN: Can restart postextubation; possibly earlier if NSVT occurs prior to that Pulmonary Acute postoperative respiratory insufficiency Assessment: On mildly increased settings of SIMV to maintain oxygenation (increased FiO2). PLAN: - Will increase PEEP for alveolar re-recruitment - Wean settings as able, will work towards extubation when advised per ENT ENT Subglottic stenosis? (present on admission) Assessment: Trachostomy 3 years ago after CABG. Has had difficulty breathing about 6 months after rehab. Found by ENT to have scar tissue that was present and causing issues. S/p DL and tracheal resection and primary anastomosis. Kept intubated postoperatively. PLAN: -Has been kept intubated overnight with plans to slow wean per ENT -Extubation plans this morning with ENT Medication and Non-Pharmacologic VTE Prophylaxis/Anticoagulants Anticoagulant AND Antiplatelet Medications (From admission, onward) Star (more content not included)... [facility] 09-11-2021 Note HNO ID: [id number] Author: Karina Garcia MD Service: Critical Care Author Type: Anesthesiologist Type: Progress Notes Filed: 09/11/2021 8:12 PM Note Text: SERVICE DATE: 09/11/2021 SERVICE TIME: 7:36 PM SICU HANDP NOTE HPI: 71 yoM w/ a PMHx signifcant for HLD, HTN, ischemic cardiomyopathy, CVA, and CAD s/p CABGx3 c/b metabolic encephalopathy and prolonged respiratory failure s/p tracheostomy (01/2018). Pt was seen by ENT after reporting worsening of SOB with activity thought to be related to a previous tracheostomy. A tracheoscopy was performed in office showing moderate restriction of the 2nd tracheal ring with complete collapse with increased intrathoracic pressure. On 09/11/21 he underwent a scheduled tracheal resection of rings 2-4 and primary anastomosis. Intra-op course was largely unremarkable and pt is being admitted to SICU intubated post-op support and eventual weaning from mechanical ventilation. Subjective PAST MEDICAL HISTORY Diagnosis Date - Afib (HCC) - Aneurysm of aorta (HCC) - Anxiety and depression - CAD (coronary artery disease) - Cerebrovascular hemorrhage (HCC) - Chronic respiratory failure (HCC) - Heart attack (HCC) - History of thoracic surgery 02/21/2019 Removal of single painful sternal wire, lower remote sternotomy incision. 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 - PEG INSERTION_*FL - REPAIR ING HERNIA,5+Y/O,REDUCIBL Left 1989 - S $ KNEE PARTIAL Right 2010 - TRACHEOSTOMY HX 02/22/2018 Objective Admission Weight: VITAL SIGNS BP 117/63 Pulse 56 Temp (Src) 97 (Temporal) Resp 16 SpO2 95% O2 Therapy: Ventilator, %FIO2: 60 [MAR Hold due to Transfer] lactated Ringers, Last Rate: 30 mL/hr (09/11/21 9667) lactated Ringers, Last Rate: 50 mL/hr (09/11/21 1648) propofol infusion, Last Rate: 30 mcg/kg/min (09/11/21 1946) PHENYLephrine, Last Rate: Stopped (09/11/21 1805) RESPIRATORY Mechanical Ventilation: Yes, on mechanical ventilation PHYSICAL EXAM Neuro: Sedated Pulmonary: Clear to auscultation. Breath Sounds Equal: Yes Cardiovascular: Regular rhythm Abdomen: Soft and Nontender Extremities: Edema- No Peripheral pulses- Present all extremities Wounds/Drsgs- N/A DATA: Diagnostic tests reviewed for today's visit: Most recent labs and imaging results. ICU Checklist ------ A= Assess, Prevent, Manage Pain C= Choice of Sedation and Analgesia B= Both Spontaneous Awakening and Breathing Trials D= Delirium: Assess, Prevent and Manage E= Early Mobility/Excercise ICU Mobility: F= Family Engagement and Empowerment ICU Disposition: Prevention: VTE Prophylaxis: Assessment AND Plan Cardiovascular HTN (hypertension)? (present on admission) Assessment: takes lisinopril, metoprolol, lasix PLAN: -Hold home meds until postextubation HLD (hyperlipidemia)? (present on admission) PLAN: -Continue home atorvastatin CAD (coronary artery disease)? (present on admission) Assessment: S/p CABG x 3 (2018). Following with Dr. Torres. Takes Aspirin 81mg and atorvastatin 40mg, PLAN: -Continue aspirin -Continue atorvastatin NSVT (nonsustained ventricular tachycardia) (HCC)? (present on admission) Assessment: on diltiazem PLAN: Can restart postextubation; possibly earlier if NSVT occurs overnight Pulmonary Acute postoperative respiratory insufficiency Assessment: On mildly increased settings of SIMV to maintain oxygenation (increased FiO2). 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 Has had difficulty breathing about 6 months after rehab. Found by ENT to have scar tissue that was present and causing issues. S/p DL and tracheal resection and primary anastomosis. Kept intubated postoperatively. PLAN: -Plan to keep intubated overnight with plans to slow wean per ENT -Extubation plans tmr morning with ENT Medication and Non-Pharmacologic VTE Prophylaxis/Anticoagulants 09/11/211614 vte pharmacologic prophylaxis contraindicated (nm,oh) 09/11/211614 pneumatic compression stockings (nm,de) 09/11/211614 activity - mobilize patient ([place]) VTE Prophylaxis: VTE prophylaxis appropriate Plan of care discussed with: RN SIGNATURE: Tee Silverman MD PATIENT (more content not included)... [facility] 09-04-2021 Note HNO ID: [id number] Author: Liborio Rinaldi RN Service: ? Author Type: Registered Nurse Type: Progress Notes Filed: 09/09/2021 12:50 PM Note Text: Patient is not able to name medications, reports he is taking 2 heart medications, 1 cholesterol medication, eye vitamin and baby Asprin. Patient iv very nervous related to upcoming surgery. He reports that last time he went under he ended up in a comma for 3 months. Reports allergy to propofol. Last EKG 08/17/21: NSR: normal ECG Liborio Rinaldi RN [facility] 08-17-2021 Note HNO ID: [id number] Author: Jorge A Duran, RT(R) Service: ? Author Type: Technologist Type: Progress Notes Filed: 08/17/2021 2:18 PM Note Text: Radiology Service Progress Note PATIENT NAME: Jeffrey Cullen Jr. DATE OF SERVICE: August 17, 2021 TIME: 2:09 PM PATIENT IDENTITY VERIFICATION COMPLETED USING TWO (2) IDENTIFIERS: Name and Date of confirmed by patient verbally. FALL SCREENING: Has the patient had 2 falls in the last year or 1 fall with injury or currently using an Ambulatory Assistive Device (Walker, Cane, Wheelchair, Crutches, etc.)? No PATIENT GENDER DATA: Male PATIENT RELEVANT IMPLANT DATA REVIEWED: Not Applicable RADIOLOGY DEPARTMENT: General X-ray: Exam(s) Completed: Chest X-Ray PERIPHERAL IV DATA: Not applicable SIGNED BY: RT Jeaneth(R) August 17, 2021 2:09 PM [facility] 08-17-2021 Note HNO ID: [id number] Author: Roxie Nickerson RN Service: ? Author Type: Registered Nurse Type: Progress Notes Filed: 08/17/2021 1:28 PM Note Text: EKG complete. Roxie Nickerson RN [facility] 07-23-2021 Note HNO ID: [id number] Author: Jeffrey Montiel MD Service: ? Author Type: Physician Type: Progress Notes Filed: 07/23/2021 5:08 PM Note Text: ACTIVE PROBLEM LIST Nstemi (Non-St Elevated Myocardial Infarction) ([facility]) - 02/07/2018 (A priority) Nsvt (Nonsustained Ventricular Tachycardia) ([facility]) - 02/08/2018 (B priority) Protruding Sternal Wires - 02/21/2019 S/P Cabg X 3 - 01/30/2019 Stiffness of Right Hand Joint - 06/09/2018 Stiffness of Left Hand Joint - 06/09/2018 Decreased Range of Motion of Right Shoulder - 06/09/2018 Decreased Range of Motion of Left Shoulder - 06/09/2018 Decreased Activities of Daily Living (Adl) - 06/09/2018 Sdh (Subdural Hematoma) ([facility]) - 04/22/2018 Afib ([facility]) Cad (Coronary Artery Disease) Chronic Respiratory Failure ([facility]) Acute Respiratory Failure With Hypoxia ([facility]) - 03/13/2018 Weakness - 03/09/2018 Encephalopathy - 03/04/2018 Comment: Malnutrition of Moderate Degree ([facility]) - 02/20/2018 Nicotine use disorder, F17.2 - 02/09/2018 Inguinal Hernia Without Mention of Obstruction Or Gangrene, Unilateral Or Unspecified, (Not Specified As Recurrent) - 12/04/2007 HPI: Jeffrey Cullen Jr. is seen in consultation from Dr Le Weems for evaluation for airway obstruction. Per his note: Jeffrey Cullen Jr. is a 71 year old male who presents to the office for evaluation of his throat. He states that he is having difficulty breathing which started after he was intubated and then trached several years ago. He had a percutaneous tracheostomy performed by a different ENT physician on 02/22/18 for acute respiratory failure and encephalopathy. Unclear when the trach was removed, patient recalls it being removed in a rehab facility after discharge from the hospital. Estimates the trach was in placed for 2 months. Recent pulmonary evaluation suggested large upper airway obstruction. He is short of breath with exertion and after long periods of talking. He previously saw an ENT in [place] who felt that he most likely had tracheal stenosis and did not want to touch it per patient. Know history of CAD and CVA. Takes aspirin daily. The patient felt that the intubation with the CABG, as well as the subsequent tracheotomy being in place for a total of 8 weeks was related to the stenosis. He is having no issues with swallowing, not much hoarseness, but is severely incapacitated by his shortness of breath with his normal very vigorous activity. He is moving to [place] in the month of August. ? PAST MEDICAL HISTORY Diagnosis Date - Afib (HCC) - Aneurysm of aorta (HCC) - CAD (coronary artery disease) - Cerebrovascular hemorrhage (HCC) - Chronic respiratory failure (HCC) - Heart attack (HCC) - History of thoracic surgery 02/21/2019 Removal of single painful sternal wire, lower remote sternotomy incision. - Kidney stones - Protruding sternal wires - S/P CABG x 3 02/09/2018 PAST SURGICAL HISTORY Procedure Laterality Date - CABG (3) VEIN GRAFTS AND ARTERIAL GRAFT(S) 02/09/2018 - KNEE SCOPE,DIAGNOSTIC Right x 2 Arthroscopy, knee 2007 2008 - ORTHOPEDICS SURGERY HX Right 2011 partial knee replacement - PAST SURGICAL HISTORY OF 02/21/2019 Removal of one single sternal wire, PJS - [facility] REMOVE STERNAL WIRE 02/21/2019 Removal of single painful sternal wire, lower remote sternotomy incision. - PEG INSERTION_*FL - REPAIR ING HERNIA,5+Y/O,REDUCIBL 1990 Hernia repair, inguinal,left - TRACHEOSTOMY HX 02/22/2018 FHx: Family history negative for related head and neck disorders. 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 Quit 02/17/2018. Types: Cigarettes Alcohol Use: No ROS: Constitutional: Denies having night sweats, constant fatigue, loss of appetite, or recent substantial weight loss. Eyes: The patient denies having blurred vision or double vision. GI: Denies symptoms of heartburn, acid regurgitation, or the known presence of a hiatal hernia. R: His pulmonary status was fully evaluated by an outside marketing planning manager and found to be normal outside of the tracheal restriction PHYSICAL EXAM: Constitutional: ? General appearance: well developed, well nourished, without obvious deformities ? Communication: the patient speaks with a normal voice without hoarseness, but on deep inspiration he has moderate stridor Head and Face: ? Overall appearance: no obvious scars, lesions or masses ? Parotid and submandibular glands: no masses or tenderness ? Facial strength: normal and equal bilaterally Ears, Nose, Mouth, Throat: ? External ears and nose: normal in appearance, without scars, lesions, or masses ? Ears: both left and right external auditory canals and tympanic membranes are normal ? Nasal exam: the mucosa is pink, the septum is midline, and the visible turbinates are normal on anterior rhinoscopy ? Mastication: the teeth appear healthy, and t (more content not included)... [facility] Summary Purpose Family History No Family History Records FoundNo Family History Records FoundNo Family History Records FoundNo Family History Records Found Advance Directives No Advanced Directives Records FoundNo Advanced Directives Records FoundNo Advanced Directives Records FoundNo Advanced Directives Records Found Additional Source Comments (unrecognized sect ion and content) No Status Records FoundNo Status Records FoundNo Status Records FoundNo Status Records Found INFORMATION SOURCE (unrecogn ized section and content) DATE CREATED AUTHOR AUTHOR'S ORGANIZ ATION 2020 [facility] DATE CREATED AUTHOR AUTHOR'S ORGANIZ ATION 01/01/2022 [facility] DATE CREATED AUTHOR AUTHOR'S ORGANIZ ATION 08/07/2023 [facility] FOR RECORDS PERTAINING TO PATIENTS WHO ARE OR HAVE BEEN ENROLLED IN A CHEMICAL DEPENDENCY/SUBSTANCEABUSE PROGRAM, SOME INFORMATION MAY BE OMITTED. This clinical summary was aggregated from multiple sources. Caution should be exercised in using it in the provision of clinical care. This summary normalizes information from multiple sources, and as a consequence, information in this document may materially change the coding, format and clinical context of patient data. In addition, data may be omitted in some cases. CLINICAL DECISIONS SHOULD BE BASED ON THE PRIMARY CLINICAL RECORDS. [facility] LOC&ALL [facility]. provides no warranty or guarantee of the accuracy or completeness of information in this document.
--- NOTE | 2024-01-16 10:44 | STRESSREP ---
Stress Test Report Pharmacologic myocardial perfusion stress test. 73-year-old man with a history of coronary artery disease with dyspnea on exertion Resting EKG demonstrates sinus rhythm with a rate of 77 bpm. Resting blood pressure is 124/64 mmHg. 0.4 mg of regadenoson was infused per usual protocol followed by rapid intravenous saline flush injection. Continuous EKG monitoring was performed. The maximum heart rate was 94 bpm which was 64% of max impacted heart rate the maximum workload was 1 metabolic equivalent. At rest there were no ST or T wave changes noted to suggest ischemia and at peak infusion nonspecific ST changes were noted which did not meet the criteria for ischemia. No clinical angina is noted. The final blood pressure was 100/62 mmHg. Myocardial perfusion protocol. 14.5 mCi of technetium 99m sestamibi was injected at rest. 0.4 mg of regadenoson was infused per usual protocol. At peak infusion 44 mCi of technetium 99m sestamibi was injected stress images were obtained stress and rest images were reconstructed and compared in the short axis vertical long and horizontal long axis. Gated images were also obtained. Perfusion SPECT analysis: Review of the stress images demonstrate normal uptake of tracer noted in all areas of the myocardium. The resting images similar demonstrated normal uptake of tracer noted in all areas of the myocardium. No areas of reversibility are noted to suggest ischemia and no previous infarct is noted. Gated SPECT analysis: The gated ejection fraction is 48%. Conclusion: Normal pharmacologic myocardial perfusion stress test. Low normal ejection fraction.
== END | disposition home or self-care (01) ==
PROVIDERS: PCP Family Medicine; Referring Provider Physician Assistant Medical; Visit Provider Physician Assistant Medical
DX: I25.10 Atherosclerotic heart disease of native coronary artery without angina pectoris (principal)
CPT/HCPCS: 78452; 93017; 93306; A9500; A4216; J2785

== ENCOUNTER 2024-03-29 09:33 | Emergency (ER) | payer MEDICARE, SELFPAY ==
[2024-03-29 09:34] VITALS: BP 121/73; PULSE 83; RESP 16; TEMP 36.1; O2SAT 98
[2024-03-29 10:09] VITALS: BP 133/87; PULSE 69; RESP 20; O2SAT 94
--- NOTE | 2024-03-29 10:09 | CT_ITS ---
STUDY: CTA HEAD AND NECK WITH CONTRAST REASON FOR EXAM: Male, 73 years old. Neuro deficit, acute, stroke suspected -- -- Gwen Chadwick -- 2024-03-29 11:23:45 -- Visible by All Other [N/A] - PLEASE DICTATE NON CONTRAST BRAIN INCLUDED IN CTA SCAN. Dizziness and weakness. RADIATION DOSAGE (If Supplied By Facility): CTDIvol = ( 29.97 ) mGy, DLP = ( 1670.38 ) mGycm TECHNIQUE: CT angiography was performed with a multi-detector CT scanner. Data acquisition was obtained from the skull base through the vertex following intravenous administration of IV 100mL Isovue-370. MIP images were reconstructed from the axial data set. Post-processing of the angiographic images was performed, with multiplanar reformation and 3D reconstruction. Individualized dose optimization techniques were used for this CT. COMPARISON: No relevant priors. FINDINGS: Normal bilateral petrous carotid arteries. Normal right cavernous carotid artery with a normal supraclinoid bifurcation. Normal left cavernous carotid artery with a normal supraclinoid bifurcation. Normal right A1 segments of the anterior cerebral artery. Normal left A1 segments of the anterior cerebral artery. Normal intact anterior communicating artery (ACOM). Normal bilateral A2 segments of the anterior cerebral arteries. Normal right M1 and M2 segments of the middle cerebral arteries, with a normal M1 bifurcation. Normal left M1 and M2 segments of the middle cerebral arteries, with a normal M1 bifurcation. There is a persistent origin of the right posterior cerebral artery with absence of the posterior communicating artery (PCOM). Normal left posterior communicating artery (PCOM). Normal bilateral vertebral arteries. Normal basilar artery with a normal basilar bifurcation. The visualized bilateral superior cerebellar (SCA) arteries are normal. Normal bilateral P1, P2 and visualized P3 segments of the posterior cerebral arteries. There is no demonstrated aneurysm of the [place] of [place]. Prior CABG. AORTIC ARCH: There is atherosclerotic calcific plaque formation of the aortic arch and great vessels arising from the aortic arch, without a hemodynamically significant stenosis. There is a normal origin of the brachiocephalic, left common carotid, and left subclavian arteries. Atherosclerotic plaque formation at the origin of the left subclavian artery and right brachiocephalic artery. RIGHT CAROTID ARTERIES: Normal right common carotid artery (CCA). Normal right common carotid bulb. There is moderate atherosclerotic plaque formation of the origin of the right internal carotid artery with an estimated stenosis of 50-69% stenosis. Normal visualized cervical portion of the right internal carotid artery. Normal origin of the right external carotid artery (ECA). LEFT CAROTID ARTERIES: Normal left common carotid artery (CCA). Normal left common carotid bulb. There is mild atherosclerotic plaque formation of the origin of the left internal carotid artery with less than 50% cross sectional diameter stenosis. Normal visualized cervical portion of the left internal carotid artery. Normal origin of the left external carotid artery (ECA). VERTEBRAL ARTERIES: There is enhancement within the bilateral vertebral arteries with a small left vertebral artery, and a dominant right vertebral artery. IMPRESSION: Atherosclerotic plaque formation at the origin of the right internal carotid artery causing between 50-69% stenosis. Atherosclerotic plaque formation at the origin of the left internal carotid artery causing less than 50% narrowing. Electronically Signed: Mckinley Cox MD at 11:34 EDT , STUDY: CT BRAIN WITHOUT CONTRAST REASON FOR EXAM: Male, 73 years old. Neuro deficit, acute, stroke suspected -- -- Gwen Chadwick -- 2024-03-29 11:23:45 -- Visible by All Other [N/A] - PLEASE DICTATE NON CONTRAST BRAIN INCLUDED IN CTA SCAN RADIATION DOSAGE (If Supplied By Facility): CTDIvol = ( 44.99 ) mGy, DLP = ( 863.60 ) mGycm TECHNIQUE: Transaxial CT imaging of the brain was performed without administration of intravenous contrast material. Individualized dose optimization techniques were used for this CT. COMPARISON: No relevant priors. FINDINGS: Normal soft tissue structures. Normal calvarium. There is mild cerebral atrophy with widening of the extra-axial spaces and ventricular dilatation. There are areas of decreased attenuation within the white matter tracts of the supratentorial brain, consistent with microvascular disease changes. Normal basal ganglia and thalami. Normal brainstem. Normal cerebellum. There is no intracranial hemorrhage. There are no findings of an acute ischemic infarction. Normal visualized paranasal sinuses. CT/CTA Head AND Neck W/ Contrast IMPRESSION: Chronic involutional changes of the brain. Electronically Signed: Mckinley Cox MD at 11:36 EDT ,
--- NOTE | 2024-03-29 10:09 | EKG12_ITS ---
Test Reason : DIZZY Blood Pressure : / mmHG Vent. Rate : 060 BPM Atrial Rate : 060 BPM P-R Int : 164 ms QRS Dur : 100 ms QT Int : 416 ms P-R-T Axes : 040 -02 000 degrees QTc Int : 416 ms Sinus rhythm with Premature atrial complexes Otherwise normal ECG Confirmed by [employer] LEE, MARCOS ([id number]), content editor SHELDON CRAIN ([id number]) on 03/30/2024 10:26:29 AM Referred By: Confirmed By:MARCOS MARINELLI MD
--- NOTE | 2024-03-29 10:10 | EDS_ITS ---
HPI History of Present Illness Chief Complaint: Dizziness Informant: patient Onset/Context/Timing Onset: Days Context: Sudden Onset Timing: Intermittent Current Severity: Gone Maximum Severity: Moderate Narrative Narrative: 73-year-old male history of CAD, CABG in 2018, COPD and prior intracranial bleed. Also has macular degeneration. Since Tuesday is an intermittent episodes of vision loss in both eyes. And today had trouble with his balance. He was seen by his medical education manager on Tuesday who did not evaluation Anirudh Vaca did not think it was related to his eyes directly thought it might be neurologic. Patient had a carotid ultrasound done today. Due to balance issues came into the emergency department. Prior similar symptoms: Yes Recent Illness/Hospitalization: No [facility] Medical History Acute subdural hematoma (04/22/18) Atherosclerosis of coronary artery of [place] heart without angina pectoris COPD (chronic obstructive pulmonary disease) Depression Dizziness Essential (primary) hypertension History of non-ST elevation myocardial infarction (NSTEMI) (02/08/18) Hyperlipemia Insomnia Ischemic cardiomyopathy Klebsiella infection Leg pain, bilateral Metabolic encephalopathy Nonsustained ventricular tachycardia Obesity Osteoarthritis Papilloma Postoperative atrial fibrillation (01/2018) Respiratory failure Seborrheic keratoses, inflamed Smokeless tobacco use SOB (shortness of breath) Syncope Vertigo Home Medications aspirin 81 mg tablet,delayed release (Adult Low Dose Aspirin) 81 mg PO QDAY #90 tabs 06/28/19 [Rx Last Taken 06/28/19] vit C 50 mg-E 15 unit-zinc cit 4.5 mg-lutein 2.5 mg-zeaxan chew tablet ([employer]) 1 tab PO DAILY 12/07/22 [History Last Taken Unknown] Handicap placard #1 ea 06/29/23 [Rx Last Taken Unknown] furosemide 40 mg tablet (Lasix) 40 mg PO DAILY PRN edema #90 tabs 08/04/23 [Rx Last Taken Unknown] atorvastatin 40 mg tablet 40 mg PO QDAY HOLD RX until pt calls, he still has meds #90 tabs 12/05/23 [Rx Last Taken Unknown] diltiazem HCl 180 mg capsule,extended release 24 hr (Cardizem CD) 180 mg PO QDAY HOLD RX until pt calls, he still has meds #90 caps 01/08/24 [Rx Last Taken Unknown] lisinopril 10 mg tablet 10 mg PO QDAY #90 tabs 12/05/23 [Rx Last Taken Unknown] spironolactone 25 mg tablet 25 mg PO DAILY #30 tabs 01/16/24 [Rx Last Taken Unknown] Allergy/AdvReac Type Severity Reaction Status Date / Time bee venom protein (honey bee) Allergy Mild unknown Verified 03/29/24 09:34 propofol Allergy asystole Verified 03/29/24 09:34 isosorbide AdvReac Unknown Other Verified 03/29/24 09:34 Family History Mother Hypertension Colon cancer Father Hypertension Surgical History Gastrojejunostomy tube status (02/22/18) H/O coronary artery bypass surgery (02/09/18) History of herniorrhaphy History of left heart catheterization (06/28/19) History of right knee joint replacement History of tracheostomy (02/22/18) Tracheal stenosis following tracheostomy (~09/11/21) Social History Smoking Status: Former smoker Tobacco: How many years used: 40 how long ago did patient quit smokin, 2.5ppd second hand exposure: Yes alcohol intake: never what type of physical activity do you participate in: none ROS ROS ED ROS Narrative Denies recent illness. Review of Systems ROS Unobtainable: Denies due to encephalopathy Constitutional Constitutional ED: Denies chills or fever(s) Eyes Eyes: Reports change in vision and other Details: Transient vision loss. ; Denies blurry vision ENT ENT ED: Denies ear pain Cardiovascular Cardiovascular: Denies chest pain or palpitations Respiratory/Chest Respiratory/Chest: Denies cough or dyspnea Gastrointestinal Gastrointestinal: Denies abdominal pain Genitourinary Genitourinary ED: Denies dysuria or hematuria Musculoskeletal Musculoskeletal: Denies arthralgias or back pain Integumentary Denies abscess or Abrasions Neurologic Neurologic: Denies headache(s) Psychiatric Psychiatric: Denies anxiety or depression Endocrine Endocrinology: Denies cold intolerance Hematologic/Lymphatic Hematologic/Lymphatic: Reports none Allergic/Immunologic Allergic/Immunologic ED: Denies mouth swelling, tongue swelling or urticaria EXAM Physical Exam Narrative Exam Narrative: Well-appearing 73-year-old male. Vital signs stable afebrile. HEENT exam unremarkable. Pupils round reactive light. No facial droop. Normal speech. Neck nontender. Lungs clear. Heart regular rhythm no murmur. Abdomen soft nontender. Moving all 4 extremities. 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 Normal dorsi plantarflexion. He is awake alert. He is answering questions following commands. Fingertip to nose within normal limits. No abnormal neurologic findings. NIH score is 0. Const Vital Signs: 03/29/24 09:34 03/29/24 10:15 03/29/24 10:09 Temperature 97 F L Temperature Source Temporal Pulse Rate 83 Respiratory Rate 16 Respiratory Effort Normal Non-Labored Respiratory Pattern Normal Blood Pressure 121/73 H Blood Pressure Mean 89 Pulse Ox 98 Oxygen Delivery Method Room Air Room Air 03/29/24 10:09 Temperature Temperature Source Pulse Rate 69 Respiratory Rate 20 H Respiratory Effort Respiratory Pattern Blood Pressure 133/87 H Blood Pressure Mean 102 Pulse Ox 94 Oxygen Delivery Method Room Air Positive well nourished and well developed; Negative for cachectic, contractures or unkempt General Appearance ED: well developed and NAD; Negative for unkempt, cachectic, contractures, cyanotic, diaphoretic or pallor Nutritional Appearance: Negative for cachectic HEENT Reports moist mucous membranes Negative for trauma or tenderness Eyes PERRL and EOMs intact bilaterally General Eye ED: Negative for pale conjunctiva or scleral icterus Neck no lymphadenopathy, supple and no JVD General: Negative for tenderness Lymph Lymphatic: Negative for other Chest Wall inspection of chest normal and palpation of chest normal Chest: Negative for other Resp normal respiratory effort and clear to auscultation bilaterally Effort and Inspection: Negative for retractions Auscultation: Negative for rales, rhonchi or wheezes Cardio regular rate, regular rhythm, S1 normal heart sound, S2 normal heart sound and no murmurs GI normal to inspection, nondistended, normoactive bowel sounds, non-tender, non- distended and no masses Inspection: Negative for abdominal distention Auscultation: normoactive bowel sounds Palpation: soft; Negative for tender, guarding or rebound tenderness present Back/Spine no CVA tenderness General Back: Negative for CVA tenderness Cervical Spine: Negative for cervical spine tenderness Thoracic Spine / Upper Back: Negative for thoracic spinal tenderness or paraspinal muscle tenderness Extremity normal to inspection General Extremety ED: Negative for edema or tenderness General Extremity: Negative for edema Neuro oriented x3 and CN's II-XII intact bilaterally Sensorium / Orientation: alert; Negative for orientation impaired Motor Exam: strength 5/5 throughout Psych mental status grossly normal Appearance: Negative for unkempt Mood & Affect: Negative for depressed, anxious or tearful Skin no rashes or lesions noted General Skin Exam: Negative for jaundice or pallor Lesions: No lesion noted Rashes: No rashes noted Trauma: Negative for abrasion Wounds: Negative for wounds noted MDM MDM MDM Narrative Medical decision making narrative: 73-year-old male with transient vision change the last several days. Today he had trouble with his balance. Currently his exam is normal he is having no symptoms. He had a carotid ultrasound done today which showed less than 50% stenosis bilaterally. So that does not seem to be the cause of his problem. CAT scan and labs are pending. Repeat exam patient is doing well at 1:45 PM. We do lengthy discussion. His exam currently is normal his neurologic exam remains normal. We went over all his test results. Became up walking down the hallway he is having absolutely no trouble walking. That his gait is not his normal. I gave you the option to be admitted for further evaluation and possibly an MRI versus outpatient. States he is feeling fine and he preferred to follow-up with his doctor who he has an appointment with next week, Dr. Juan De La Torre. I also have him on page to make him aware his patient was seen in the ER. Nurses also did orthostatic vital signs they were normal. Lab Data Attestation: I reviewed the patient's lab results. Lab results narrative: CBC shows normal white count 7. H&H 14 and 43. Platelets 210. PT/INR of 15 and 1.2. PTT of 26. Electrolytes show gap of 3. BUN of 20 creatinine 1.2. Glucose 102. Troponin is normal at 20. Labs: Laboratory Results - last 24 hr 03/29/24 03/29/24 10:25 10:49 WBC 7.3 RBC 4.52 L Hgb 14.6 Hct 43.5 MCV 96.2 H MCH 32.3 H MCHC 33.6 RDW Std Deviation 44.4 H RDW Coeff of Yohana 12.4 Plt Count 210 MPV 9.1 Immature Gran % (Auto) 0.500 Neut % (Auto) 66.5 Lymph % (Auto) 19.2 Door % (Auto) 10.0 Eos % (Auto) 3.0 Baso % (Auto) 0.8 Absolute Neuts (auto) 4.9 Absolute Lymphs (auto) 1.41 Nucleated RBC % 0 PT 15.2 H INR 1.2 APTT 26.3 Sodium 140 Potassium 4.3 Chloride 112 H Carbon Dioxide 25.0 Anion Gap 3 L BUN 20 H Creatinine 1.21 Est GFR (MDRD) Af Amer 75 Est GFR (MDRD) Non-Af 62 BUN/Creatinine Ratio 16.5 Glucose 102 Calcium 9.1 Troponin I High Sens 20 POC Glucose 97 Radiography Chest X-Ray - ED: 1 View, Read by ED Physician, Read by Radiologist, Normal, Heart, Lungs, Mediastinum, Bony Structures, No Acute Disease and Chronic Changes Diagnostic Testing: Chest x-ray portable, single view interpreted both by myself and radiologist shows chronic changes. Chronic scarring. No acute process. Normal cardiac silhouette. No effusions. No pneumonia. Rhythm Strip Rhythm Strip: Sinus Rhythm Rate: 60 Ectopy: PAC(s) EKG Initial EKG: Attestation: I personally reviewed and interpreted this EKG as follows: Interpretation: Sinus Rhythm and No Acute Injury Pattern Comments: Normal sinus rhythm rate of 60 with PACs. Discharge Plan Triage Chief Complaint: Dizziness ED Provider: Juan C Dior Dx/Rx/DC Orders Clinical Impression: History of intracranial hemorrhage, Changes in vision, Dizziness, Hx of CABG Instructions: ED Dizziness, Uncertain Cause Prescriptions: No Action aspirin [Adult Low Dose Aspirin] 81 mg tablet,delayed release (DR/EC) 81 mg PO QDAY Qty: 90 3RF 365webcall 50 mg-15 unit- 4.5 mg-2.5 mg tablet,chewable 1 tab PO DAILY diltiazem HCl [Cardizem CD] 180 mg capsule,extended release 24hr 180 mg PO QDAY Qty: 90 3RF atorvastatin 40 mg tablet 40 mg PO QDAY Qty: 90 3RF lisinopril 10 mg tablet 10 mg PO QDAY Qty: 90 3RF spironolactone 25 mg tablet 25 mg PO DAILY Qty: 30 11RF furosemide [Lasix] 40 mg tablet 40 mg PO DAILY PRN (Reason: edema) Qty: 90 1RF (DME) Handicap placard See Rx Instructions .Route .MEDSUPPLY Qty: 1 0RF Rx Instructions: Lifetime Expires in 5 years. Primary Care Provider: Richie De La Torre Referrals: Richie De La Torre, DO [Primary Care Provider] - Activity Restrictions/Additional Instructions: Follow-up with your primary care physician. Return if feeling worse. Your labs, x-ray and EKG today were unremarkable. The CAT scan of your head and neck showed mild blockage of your carotid arteries but nothing they need to worry about or do surgery on at this time. Disposition Disposition: Home, Self Care
[2024-03-29 10:41] LABS: Absolute Lymphocyte Count 1.41 X10^3/uL (0.83-4.51); Absolute Neutrophil Count 4.9 X10^3/uL (2.0-7.7); Basophil# 0.06 X10^3/uL; Basophil% 0.8 % (0-1); Eosinophil# 0.22 X10^3/uL; Hematocrit 43.5 % (40-54); Hemoglobin 14.6 g/dL (13.0-16.5); Lymphocyte # 1.41 X10^3/ul (0.83-4.51); Lymphocyte % 19.2 % (19-41); Mean Corp Hgb Conc 33.6 g/dL (32-36); Mean Corpuscular Hgb 32.3 pg (27.0-32.0); Mean Corpuscular Volume 96.2 fL (80-94); Mean Platelet Vol. 9.1 fl (6.2-12.0); Monocyte# 0.73 X10^3/uL; NRBC Flagged by Analyzer 0 % (0-5); Neutrophil # 4.87 X10^3/uL (2.7-7.7); Neutrophil % 66.5 % (47-70); Platelet Count 210 K/mm3 (150-450); RBC Distribution Width CV 12.4 % (11.6-14.6); RBC Distribution Width SD 44.4 fl (35.1-43.9); Red Blood Count 4.52 M/mm3 (4.6-6.2); White Blood Count 7.3 K/mm3 (4.4-11.0)
[2024-03-29 10:47] LABS: International Normalized Ratio 1.2; Partial Thromboplast Time 26.3 Seconds (24.1-36.2); Prothrombin Time (Protime)PT. 15.2 SECONDS (11.7-14.9)
[2024-03-29 10:58] LABS: Anion Gap 3 (5-15); BUN 20 mg/dL (7-18); BUN/Creat Ratio 16.5 RATIO (10-20); Calcium,Total 9.1 mg/dL (8.5-10.1); Chloride 112 mmol/L (98-107); Creatinine, Serum 1.21 mg/dL (0.70-1.30); EST Glomerular Filtration Rate 62 mL/min (>60); Est Glom Filt Rate - Afr Amer 75 mL/min (>60); Glucose 102 mg/dL (74-106); Potassium 4.3 mmol/L (3.5-5.1); Sodium Level 140 mmol/L (136-145); Troponin-I HS 20 pg/mL (3.0-78.0)
[2024-03-29 11:07] LABS: Bedside Glucose 97 mg/dL (74-106)
--- NOTE | 2024-03-29 11:15 | RAD_ITS ---
STUDY: X-RAY CHEST REASON FOR EXAM: Male, 73 years old. Neuro deficit, acute, stroke suspected TECHNIQUE: Single AP portable view of the chest. COMPARISON: Comparison is made with prior study June 28, 2019. FINDINGS: EKG electrodes are seen. Mild increased linear markings at the lung bases as well as in the peripheral aspect of the right upper lobe suggestive of scarring. There is no demonstrated pleural abnormality. Sternal cerclage wires and vascular clips are present from a prior sternotomy and coronary artery bypass graft procedure (CABG). Mild cardiomegaly. Normal mediastinum and john. Normal visualized pulmonary arteries. Normal visualized aortic arch and descending thoracic aorta. Normal visualized thoracic spine. There is degenerative osteoarthritis of the bilateral shoulders. There is no demonstrated abnormality of the visualized soft tissue structures of the upper abdomen. RAD/Chest 1 View IMPRESSION: Mild increased interstitial markings at the lung bases and right upper lobe suggestive scarring. Electronically Signed: Mckinley Cox MD at 11:58 EDT ,
[2024-03-29 11:27] VITALS: BP 128/83; PULSE 67; RESP 21; O2SAT 95
--- NOTE | 2024-03-29 11:31 | NURSING ---
BED WITH NO SCALE THAT WORKS. PER PT WEIGHT 250
[2024-03-29 11:55] VITALS: BP 121/77; BP 122/76; BP 123/82; PULSE 61; PULSE 69; PULSE 77
--- NOTE | 2024-03-29 12:26 | ED.RN ---
ONCE PT OPENED EYES IN DARK ROOM LOOKING TO SIDES HAD GREEN SQUARES THEN TURNED MIMS NO LOSS OF ANY LARIOS OF VISION OR DOUBLE VISION HOWEVER. UP TO AMB WITH NURSE AND STEADY GAIT OBS. PT REPORTED, NOW MY LEGS ARE WORKING WHERE THIS AM I NEEDED A WC BECAUSE FELT LIKE NOODLES
[2024-03-29 13:00] VITALS: BP 120/60; PULSE 59; RESP 21; O2SAT 92
[2024-03-29 13:56] VITALS: BP 120/60; PULSE 59; RESP 21; TEMP 37.1; O2SAT 92
== END 2024-03-29 13:57 | disposition home or self-care (01) ==
PROVIDERS: Emergency Provider Emergency Medicine; PCP Family Medicine; Visit Provider Emergency Medicine
DX: H53.9 Unspecified visual disturbance (principal); J44.9 Chronic obstructive pulmonary disease, unspecified; R42 Dizziness and giddiness; G45.3 Amaurosis fugax; I25.10 Atherosclerotic heart disease of native coronary artery without angina pectoris; I25.2 Old myocardial infarction; Z95.1 Presence of aortocoronary bypass graft; Z87.891 Personal history of nicotine dependence
CPT/HCPCS: 70496; 70498; 71045; 80048; 82962; 84484; 85025; 85610; 85730; 93005; 93880; 99284; Q9967

== ENCOUNTER → 2024-03-29 | Outpatient (CLI) | payer MEDICARE, SELFPAY ==
--- NOTE | 2024-03-29 08:47 | CDU_ITS ---
Reason For Study: AMAUROSIS FUGAX Rt. Velocities/BP Lt. Velocities/BP Prox CCA 60.3/12.0 cm/sec. Prox CCA 127.1/19.4 cm/sec. Mid CCA 68.0/17.5 cm/sec. Mid CCA 61.4/12.0 cm/sec. Dist CCA 50.4/15.3 cm/sec. Dist CCA 68.0/19.7 cm/sec. Prox ICA 64.1/23.5 cm/sec. Prox ICA 90.4/32.7 cm/sec. Mid ICA 66.0/18.8 cm/sec. Mid ICA 101.4/30.2 cm/sec. Dist ICA 79.9/29.9 cm/sec. Dist ICA 77.5/30.3 cm/sec. Rt. ICA/CCA = 79.9/68.0=1.2. Lt. ICA/CCA = 101.4/61.4=1.7. Prox ECA 79.0/6.5 cm/sec. Prox ECA 92.8/14.2 cm/sec. Rt. Vert. 53.5/15.7 cm/sec. Lt. Vert. 30.4/6.0 cm/sec. Right Extracranial There is homogeneous, smooth atherosclerotic plaque noted in the right common carotid artery. There is heterogeneous, irregular atherosclerotic plaque noted in the right internal carotid artery. There is heterogeneous, smooth atherosclerotic plaque noted in the right external carotid artery. Antegrade flow is noted in the right vertebral artery. There is heterogeneous, irregular atherosclerotic plaque noted in the right bulb. Left Extracranial There is homogeneous, smooth atherosclerotic plaque noted in the left common carotid artery. There is heterogeneous, irregular atherosclerotic plaque noted in the left internal carotid artery. There is heterogeneous, irregular atherosclerotic plaque noted in the left external carotid artery. Antegrade flow is noted in the left vertebral artery. There is heterogeneous, irregular atherosclerotic plaque noted in the left bulb. Procedure Carotid Duplex [id number]. This is a Carotid Duplex examination using B-mode, color flow and specral Doppler. Exam performed in department. PT arrived for exam with dizziness/weakness. Called for wheelchair. PT C/O visual changes including unusual colors and black circles w/white dot in center upon sitting upright after lying down. Took PT to ED for evaluation. VL/Carotid Duplex Ultrasound Interpretation Summary Mild (<50%) stenosis right extracranial internal carotid. Mild (<50%) stenosis left extracranial internal carotid. Patent and antegrade vertebrals bilaterally. Ordering Physician: Chan Ovalles Referring Physician: Richie De La Torre Performed By: Sheila Velasco, VANESSA, RVT
== END | disposition home or self-care (01) ==
LOC: CVS 08:38
PROVIDERS: PCP Family Medicine; Referring Provider Ophthalmology; Visit Provider Ophthalmology
DX: G45.3 Amaurosis fugax (principal)
CPT/HCPCS: 93880

== ENCOUNTER → 2025-02-21 | Outpatient (CLI) | payer MEDICARE, SELFPAY ==
[2025-02-21 16:15] LABS: Absolute Lymphocyte Count 1.37 X10^3/uL (0.83-4.51); Absolute Neutrophil Count 6.1 X10^3/uL (2.0-7.7); Basophil# 0.08 X10^3/uL; Basophil% 0.9 % (0-1); Eosinophil# 0.17 X10^3/uL; Hematocrit 48.6 % (40-54); Hemoglobin 16.4 g/dL (13.0-16.5); Lymphocyte # 1.37 X10^3/ul (0.83-4.51); Mean Corp Hgb Conc 33.7 g/dL (32-36); Mean Corpuscular Hgb 32.3 pg (27.0-32.0); Mean Corpuscular Volume 95.9 fL (80-94); Mean Platelet Vol. 9.4 fl (6.2-12.0); Monocyte# 0.83 X10^3/uL; Monocyte% 9.7 % (0-10); NRBC Flagged by Analyzer 0 % (0-5); Neutrophil # 6.05 X10^3/uL (2.7-7.7); Neutrophil % 70.8 % (47-70); Platelet Count 252 K/mm3 (150-450); RBC Distribution Width CV 13.2 % (11.6-14.6); RBC Distribution Width SD 46.9 fl (35.1-43.9); Red Blood Count 5.07 M/mm3 (4.6-6.2); White Blood Count 8.6 K/mm3 (4.4-11.0)
[2025-02-21 19:52] LABS: AST(SGOT) 18 U/L (<=37); Alanine Aminotransfer ALT/SGPT 17 U/L (<=46); Albumin, Serum 3.6 g/dL (3.4-4.8); Alkaline Phosphatase 114 U/L (40-129); Anion Gap 12 (5-15); BUN 18 mg/dL (4-19); BUN/Creat Ratio 15.5 RATIO (10-20); Calcium,Total 9.2 mg/dL (7.6-11.0); Carbon Dioxide 21.4 mmol/L (21.0-32.0); Chloride 109 mmol/L (98-108); Creatinine, Serum 1.15 mg/dL (0.70-1.20); EST Glomerular Filtration Rate 66 (>60); Globulin 3.7 g/dL (2.2-4.2); Glucose 89 mg/dL (70-99); Potassium 4.9 mmol/L (3.3-5.1); Pro- Brain NATRIURETIC PEPTIDE 526 pg/mL (<=1800); Protein, Total 7.3 g/dL (5.9-8.4); Sodium Level 142 mmol/L (133-145); Total Bilirubin 0.58 mg/dL (0.00-1.30)
== END | disposition home or self-care (01) ==
LOC: LAB 14:58
PROVIDERS: PCP Family Medicine; Referring Provider Physician Assistant Medical; Visit Provider Physician Assistant Medical
DX: I25.5 Ischemic cardiomyopathy (principal); Z95.1 Presence of aortocoronary bypass graft; R06.09 Other forms of dyspnea
CPT/HCPCS: 36415; 80053; 83880; 85025

== ENCOUNTER → 2025-10-07 | Outpatient (CLI) | payer MEDICARE, SELFPAY ==
[2025-10-07 10:18] LABS: Hematocrit 37.9 % (40-54); Hemoglobin 12.8 g/dL (13.0-16.5); Immature Granulocytes Count 0.050 X10^3/uL (0.0-0.0); Mean Corp Hgb Conc 33.8 g/dL (32-36); Mean Corpuscular Volume 99.5 fL (80-94); Mean Platelet Vol. 9.3 fl (6.2-12.0); NRBC Flagged by Analyzer 0 % (0-5); Platelet Count 201 K/mm3 (150-450); RBC Distribution Width CV 12.1 % (11.6-14.6); RBC Distribution Width SD 43.7 fl (35.1-43.9); Red Blood Count 3.81 M/mm3 (4.6-6.2); White Blood Count 7.8 K/mm3 (4.4-11.0)
[2025-10-07 11:00] LABS: Cholesterol 103 mg/dL (<=200); Low Density Lipoprotein Calc. 44 mg/dL; Pro- Brain NATRIURETIC PEPTIDE 1132 pg/mL (<=1800); Triglycerides 73 mg/dL; Very Low Density Lipoprotein 15 mg/dL (5-40); cholesterol:hdl ratio screen 2.34
[2025-10-07 11:13] LABS: AST(SGOT) 17 U/L (<=37); Alanine Aminotransfer ALT/SGPT < 5 U/L (<=46); Albumin, Serum 3.4 g/dL (3.4-4.8); Alkaline Phosphatase 114 U/L (40-129); Anion Gap 10 (5-15); BUN 11 mg/dL (4-19); BUN/Creat Ratio 12.8 RATIO (10-20); Calcium,Total 9.1 mg/dL (7.6-11.0); Carbon Dioxide 23.2 mmol/L (21.0-32.0); Chloride 108 mmol/L (98-108); Globulin 4.0 g/dL (2.2-4.2); Glucose 90 mg/dL (70-99); Potassium 4.1 mmol/L (3.3-5.1)
== END | disposition home or self-care (01) ==
LOC: LAB 09:06
PROVIDERS: PCP Family Medicine; Referring Provider Student in an Organized Health Care Education/Training Program; Visit Provider Student in an Organized Health Care Education/Training Program
DX: E78.5 Hyperlipidemia, unspecified (principal); R06.02 Shortness of breath; D64.9 Anemia, unspecified; I10 Essential (primary) hypertension
CPT/HCPCS: 36415; 80053; 80061; 83880; 85025